=== PATIENT | female | born 1935 | race Caucasian/White ===

== ENCOUNTER 2018-03-15 12:00 | Emergency (ER) | payer MEDICARE, SELFPAY ==
[2018-03-15 12:01] VITALS: BP 149/89; PULSE 63; RESP 17; O2SAT 96
[2018-03-15 12:02] VITALS: BP 149/89; PULSE 63; RESP 18; TEMP 36.7; O2SAT 96; BMI 29.9
--- NOTE | 2018-03-15 12:26 | RAD_ITS ---
STUDY: X-RAY - LUMBAR SPINE REASON FOR EXAM: Female, 82 years old. Limited mobility. Status post fall. TECHNIQUE: 3 view(s) of the lumbar spine were obtained. COMPARISON: None FINDINGS: There is minimal, grade 1 degenerative listhesis at L3-L4 and L4-L5. There is diffuse demineralization. There is no acute fracture lucency, cortical step-off or acute compression deformity/fracture. There is mild diffuse spondylosis. There is mild to moderate multifocal degenerative disc disease with vacuum phenomena, primarily involving L5-S1, L3-L4 and L2-L3. Soft tissues demonstrate significant multifocal calcified vascular plaque without demonstration of aneurysm. RAD/Lumbar Spine 2 or 3 Views IMPRESSION: No evident acute osseous abnormality. Diffuse demineralization, consider evaluation with DEXA. Mild diffuse spondylosis and multiple level degenerative disc disease as above. Atherosclerotic peripheral vascular disease. Electronically Signed: Flavio Moon MD at 13:42 EDT , Service support ,
--- NOTE | 2018-03-15 12:26 | RAD_ITS ---
STUDY: X-RAY - LEFT KNEE REASON FOR EXAM: Female, 82 years old. Limited mobility status post fall. TECHNIQUE: 4 view(s) of the knee. COMPARISON: None. FINDINGS: There is no acute fracture lucency. There is no cortical step-off. There is no effusion. There is minimal patellofemoral osteoarthritis. There is mild medial compartment osteoarthritis. Peaking of the tibial spines within the intercondylar notch probably also represents a manifestation of osteoarthritis. There is diffuse demineralization. The soft tissue structures are unremarkable except for multifocal calcified vascular plaque. RAD/Knee 4 or More Views IMPRESSION: No acute osseous abnormality. Bicompartmental osteoarthritis as characterized above. No effusion. Atherosclerotic peripheral vascular disease. Electronically Signed: Flavio Moon MD at 13:38 EDT , Service support ,
--- NOTE | 2018-03-15 12:26 | CT_ITS ---
STUDY: CT CERVICAL SPINE WITHOUT CONTRAST REASON FOR EXAM: Female, 82 years old. Status post fall with head pain. RADIATION DOSAGE (If Supplied By Facility): CTDIvol = ( 21.79 ) mGy, DLP = ( 1235.47 ) mGycm TECHNIQUE: High resolution transaxial imaging was performed without contrast material. Sagittal and coronal images were reconstructed. Individualized dose optimization techniques were used for this CT. COMPARISON: None FINDINGS: Normal craniovertebral junction. Normal anterior atlantoaxial articulation. Normal odontoid process. Normal cervical lordosis. Normal vertebral bodies and posterior osseous elements. C2-3: Normal endplates. Normal disc height and morphology. Normal central canal and intervertebral neuroforamina. C3-4: Normal endplates. Normal disc height and morphology. Normal central canal and intervertebral neuroforamina. C4-5: Normal endplates. Normal disc height and morphology. Normal central canal and intervertebral neuroforamina. C5-6: Normal endplates. Normal disc height and morphology. Normal central canal and intervertebral neuroforamina. C6-7: Normal endplates. Normal disc height and morphology. Normal central canal and intervertebral neuroforamina. C7-T1: Normal endplates. Normal disc height and morphology. Normal central canal and intervertebral neuroforamina. Normal visualized soft tissue structures. CT/Spine Cervical without Contras IMPRESSION: There is no CT evident acute traumatic osseous pathology. Calcified plaque involving the carotid bulbs compatible with atherosclerotic peripheral vascular disease. Mild spondylosis involving C5 and C6. Electronically Signed: Flavio Moon MD at 14:15 EDT , Service support ,
--- NOTE | 2018-03-15 12:26 | CT_ITS ---
STUDY: CT BRAIN WITHOUT CONTRAST REASON FOR EXAM: Female, 82 years old. Head pain status post fall. RADIATION DOSAGE (If Supplied By Facility): CTDIvol = ( 44.99 ) mGy, DLP = ( 796.11 ) mGycm TECHNIQUE: Transaxial CT imaging of the brain was performed without administration of intravenous contrast material. Individualized dose optimization techniques were used for this CT. COMPARISON: September 30, 2017. FINDINGS: Normal soft tissue structures. Patient is status post right frontoparietal craniotomy. There is no acute osseous abnormality. Multifocal calcified intracranial vascular plaque is redemonstrated. There is moderate cerebral atrophy with widening of the extra-axial spaces and ventricular dilatation. There are areas of decreased attenuation within the white matter tracts of the supratentorial brain, consistent with microvascular disease changes. Normal basal ganglia and thalami. Normal brainstem. Normal cerebellum. There is no intracranial hemorrhage. There is no large vessel territory ischemia or edema. Normal visualized paranasal sinuses. CT/Brain/Head without Contrast IMPRESSION: Stable exam. No evident acute intracranial pathology. Chronic involutional changes of the brain. Electronically Signed: Flavio Moon MD at 13:04 EDT , Service support ,
--- NOTE | 2018-03-15 12:26 | RAD_ITS ---
STUDY: X-RAY - SACRUM/COCCYX REASON FOR EXAM: Female, 82 years old. Noted mobility status post fall. TECHNIQUE: 3 view(s) of the sacrum and coccyx were obtained. COMPARISON: None. FINDINGS: Oblique lucency involves the mid and distal sacrum on the lateral projection only. Numerous associated mild cortical step-off. There is mild hip osteoarthritis and moderate nonerosive sacroiliac osteoarthritis. Patient is status post placement of left dynamic hip screw. RAD/Sacrum-Coccyx min 2 Views IMPRESSION: Probable acute nondisplaced fracture of the mid and distal sacrum. Fracture fragments appear well opposed. The coccyx appears unremarkable. Electronically Signed: Flavio Moon MD at 13:36 EDT , Service support ,
--- NOTE | 2018-03-15 12:27 | RAD_ITS ---
STUDY: X-RAY - PELVIS REASON FOR EXAM: Female, 82 years old. Limited mobility status post fall. TECHNIQUE: One view of the pelvis was obtained. COMPARISON: None. FINDINGS: There is a non-specific bowel gas pattern. Normal visualized soft tissue structures. There is no fracture lucency or cortical step-off. There is a moderate nonerosive sacroiliac degenerative disease. There is mild to moderate osteoarthritis of the pubic symphysis. There is mild osteoarthritis of bilateral hips. Of note, patient is status post left hip pinning with the left femoral intramedullary edilberto. RAD/Pelvis 1 or 2 Views IMPRESSION: No evident acute osseous abnormality in this patient status post fall. Electronically Signed: Flavio Moon MD at 13:40 EDT , Service support ,
--- NOTE | 2018-03-15 12:28 | ED.VISSUMM ---
- ER Visit Summary Date of Service: 03/15/18 Chief Complaint: Fall History of Present Illness: The patient is a 82 F presenting after mechanical fall. Patient fell on Wednesday. She tripped over a table. She was not using her walker as she is supposed to. She hit her head but did not lose consciousness. She complains of dizziness after the fall which has now improved. She complains of buttock, left knee, left elbow pain. She has been taking Tylenol at home with some improvement. She is on Plavix. Denies other complaints. Physical Examination: Vitals are stable. Patient is afebrile. Alert no acute distress. HEENT exam is unremarkable. Neck is mild diffuse tenderness Lungs are clear and equal bilaterally. Heart is regular rate and rhythm. Abdomen is soft nontender nondistended. Back: Lumbosacral tenderness, no step-off Extremities left elbow and left knee mildly tender to palpation, active full range of motion, neurovascularly intact distally Skin is warm and dry. No focal neurologic deficit. Remainder of exam is unremarkable. Emergency Department Course and Treatment: X-ray of the left elbow and knee show no acute process. X-ray lumbar spine shows no acute process. Pelvis x-ray shows no acute process. Sacral x-ray shows probable acute nondisplaced fracture of the mid and distal sacrum. Fracture fragments appear well opposed. The coccyx appears unremarkable. CT head shows no acute process. CT cervical spine shows no acute fracture. Patient will continue to take Tylenol at home. She is given a prescription for tramadol. She states she has taken that in the past without difficulty. She is advised to follow-up with Dr Tong semiconductor manufacturing technician for no doc. Advised return to ED for worsening complaints. Disposition: Discharge home Impression: Status post mechanical fall, nondisplaced sacral fracture This note was generated with [employer] dictation software. It may contain incorrect words, spelling, and punctuation that were not noted in review of the chart prior to signing ED Disposition - Plan for ED Patient: Chief Complaint: Fall Referrals: [facility],Out of [Primary Care Provider] -
--- NOTE | 2018-03-15 12:45 | RAD_ITS ---
STUDY: X-RAY - LEFT ELBOW REASON FOR EXAM: Female, 82 years old. Limited mobility. Status post fall. TECHNIQUE: 3 view(s) of the elbow. COMPARISON: None. FINDINGS: Normal visualized humerus, radius and ulna. Normal radiocapitellar and ulnotrochlear articulations. The soft tissue structures are unremarkable. RAD/Elbow min 3 Views IMPRESSION: Normal x-ray examination of the elbow. Electronically Signed: Flavio Moon MD at 13:35 EDT , Service support ,
--- NOTE | 2018-03-15 14:33 | ED.DEP ---
ED Disposition - Plan for ED Patient: Chief Complaint: Fall Instructions: ED Mechanical Fall Prescriptions: traMADol [Ultram] 50 mg PO Q6H PRN PRN #12 tablet PRN Reason: Pain Referrals: [facility],Out of [Primary Care Provider] - Codey Tong DO [STAFF PHYSICIAN] -
[2018-03-15 14:41] VITALS: BP 164/69; PULSE 61; RESP 16; O2SAT 96
== END 2018-03-15 14:55 | disposition home or self-care (01) ==
PROVIDERS: Emergency Provider Emergency Medicine
DX: S32.10XA Unspecified fracture of sacrum, initial encounter for closed fracture (principal); W18.09XA Striking against other object with subsequent fall, initial encounter; Y93.89 Activity, other specified; Y92.9 Unspecified place or not applicable; I10 Essential (primary) hypertension; E78.00 Pure hypercholesterolemia, unspecified; J44.9 Chronic obstructive pulmonary disease, unspecified; Z86.73 Personal history of transient ischemic attack (TIA), and cerebral infarction without residual deficits; Z79.01 Long term (current) use of anticoagulants; Z79.899 Other long term (current) drug therapy
CPT/HCPCS: 70450; 72100; 72125; 72170; 72220; 73080; 73564; 99282

== ENCOUNTER 2019-01-30 23:31 | Inpatient (IN) | payer MEDICARE, MEDICAID, SELFPAY ==
[2019-01-30 23:33] VITALS: BP 152/62; PULSE 84; RESP 18; TEMP 36.8; O2SAT 95; BMI 29.6
--- NOTE | 2019-01-30 23:43 | RAD_ITS ---
STUDY: X-RAY CHEST REASON FOR EXAM: Female, 83 years old. Trauma TECHNIQUE: Single frontal view of the chest. COMPARISON: November 06, 2017. FINDINGS: Chronic lung changes. Low lung volumes. No focal consolidation. There is no demonstrated pleural abnormality. There is borderline cardiomegaly. Aortic calcifications. There are diffuse degenerative changes of the visualized thoracic spine. There is degenerative osteoarthritis of the bilateral shoulders. Left rotator cuff calcific tendinitis. Distended visualized aspects of the transverse colon. RAD/Chest 1 View (Portable) IMPRESSION: No acute cardiopulmonary disease. Other findings as above. Electronically Signed: Alin Qiu, at 1:13 EDT Tel , Service support ,
--- NOTE | 2019-01-30 23:44 | EKG12_ITS ---
Test Reason : FALL Blood Pressure : / mmHG Vent. Rate : 076 BPM Atrial Rate : 076 BPM P-R Int : 168 ms QRS Dur : 148 ms QT Int : 402 ms P-R-T Axes : 051 -30 -81 degrees QTc Int : 452 ms Normal sinus rhythm Left axis deviation Right bundle branch block Left ventricular hypertrophy with repolarization abnormality Abnormal ECG Confirmed by SHARRON LAM, CESILIA ([id number]), rewrite editor SAMAN MANUEL ([id number]) on 02/02/2019 10:49:12 AM Referred By: [facility] Confirmed By:CESILIA MCDERMOTT MD
--- NOTE | 2019-01-30 23:51 | ED.VISSUMM ---
- ER Visit Summary Date of Service: 01/30/19 Chief Complaint: Fall History of Present Illness: The patient is a 83 F brought in by EMS after falling out of bed. She complains of pain to her right hip and to the back of her head. She denies loss of consciousness. She apparently was unable to weight-bear on her right leg. EMS documents that she was having some hallucinations in route to the hospital. Past history is significant for prior stroke, reflux disease, hypertension, high cholesterol. She has had prior left hip surgery. Physical Examination: Vital signs unremarkable. Patient sitting upright in bed no acute distress. Head neck examination reveals mild tenderness to the right occiput. There is no hematoma or laceration. C-spine is nontender. Heart is regular rate and rhythm. Lung sounds are clear. Abdomen is soft and nontender. Active bowel sounds are noted throughout. Lower external examination does reveal tenderness to the right hip. She has equal leg lengths and strong distal pulses. No abrasions or ecchymosis noted. Test Results: Portable chest x-ray shows no acute disease. Pelvis and right hip x-rays show arthrosis with no evidence of fracture. CT head shows chronic involutional changes. EKG is sinus at 76 with a right bundle branch block. This is unchanged when compared to prior study. CBC was a white count of 13.6 with a left shift. Chemistry studies significant for potassium 3.1. Coags are unremarkable. Urinalysis is positive for nitrites with greater than 100 white cells and 4+ bacteria. Emergency Department Course and Treatment: Patient was given fentanyl and Zofran on arrival along with IV fluids. Upon completion of labs she was given 60 mEq of potassium chloride orally. Upon completion of her urinalysis, urine culture is sent and patient is given a dose of Cipro. She does have a documented penicillin allergy. On repeat exam at this time patient states her right hip does feel better. She is able to flex at the hip without difficulty. She is able to logroll the hip without difficulty. At this time patient will be admitted for antibiotic treatment, potassium replacement, and evaluation by PT to ensure she is safe with ambulation. Treatment Plan: [] Disposition: Admit Impression: 1. Cystitis 2. Fall with right hip contusion 3. Hypokalemia This note was generated with [employer] software. It may contain incorrect words, spelling, and punctuation that were not noted in review of the chart prior to signing ED Disposition - Plan for ED Patient: Referrals: [facility] Doctor,Out of [Primary Care Provider] -
[2019-01-31] VITALS (14 sets, daily range): BP systolic 126–177; BP diastolic 56–103; PULSE 64–106; RESP 16–28; TEMP 36.4–39.4; O2SAT 90–99; BMI 28.5; BMI 29.6
[2019-01-31] MEDS: 0.9% Normal Saline 1,000 ML 150 ML IV
[2019-01-31] MEDS: fentaNYL 100 MCG/2 ML Ampul 25 MCG IV
[2019-01-31] MEDS: Ondansetron 4 MG/2 ML Vial IV
[2019-01-31 00:20] LABS: Red Blood Count 3.98 M/mm3 (4.2-5.4); White Blood Count 13.6 K/mm3 (4.4-11.0)
[2019-01-31 00:21] LABS: Absolute Neutrophil Count 11.5 X10^3/uL (2.0-7.7); Basophil% 0.2 % (0-1); Eosinophils% 0.3 % (0-5); Hematocrit 37.1 % (37-47); Lymphocyte # 0.78 X10^3/ul (4.0); Lymphocyte % 5.8 % (19-41); Mean Corp Hgb Conc 32.3 g/gl (32-36); Mean Corpuscular Hgb 30.2 pg (27.0-32.0); Mean Corpuscular Volume 93.2 fL (81-99); Mean Platelet Vol. 10.9 fl (6.2-12.0); Monocyte% 8.8 % (0-10); Neutrophil # 11.49 X10^3/uL (2.7-7.7); Neutrophil % 84.7 % (47-70); POSITIVE COUNT NO; POSITIVE DIFFERENTIAL NO; POSITIVE MORPHOLOGY NO; Platelet Count 170 K/mm3 (150-450); RBC Distribution Width CV 13.9 % (11.6-14.6)
[2019-01-31 00:22] LABS: Absolute Lymphocyte Count 0.78 X10^3/ul (0.83-4.51); Basophil# 0.03 X10^3/uL; Eosinophil# 0.04 X10^3/uL; Monocyte# 1.19 X10^3/uL
[2019-01-31 00:23] LABS: International Normalized Ratio 1.2
[2019-01-31 00:24] LABS: Anion Gap 9 (5-15); BUN 23 mg/dL (7-18); BUN/Creat Ratio 22.5 RATIO (10-20); Calcium,Total 8.4 mg/dL (8.5-10.1); Chloride 108 mmol/L (98-107); Creatinine, Serum 1.02 mg/dL (0.55-1.02); EST Glomerular Filtration Rate 55 mL/min (>60); Est Glom Filt Rate - Afr Amer 67 mL/min (>60); Estimated Creatinine Clearance 40.49 ml/min; Glucose 150 mg/dL (74-106); Partial Thromboplast Time 30.8 Seconds (24.1-36.2); Potassium 3.1 mmol/L (3.5-5.1); Sodium Level 138 mmol/L (136-145)
--- NOTE | 2019-01-31 00:34 | RAD_ITS ---
STUDY: X-RAY - RIGHT HIP REASON FOR EXAM: Female, 83 years old. Hip pain TECHNIQUE: 2 views of the hip. COMPARISON: None. FINDINGS: Normal femoral head, neck, intertrochanteric region and visualized proximal femur. Normal acetabulum. There is mild articular joint space narrowing. Normal visualized superior and inferior pubic rami and ischial tuberosities. RAD/HIP, UNI W/ Pelvis 2-3 Views IMPRESSION: There is mild arthrosis of the RIGHT hip joint. There is NO fracture or dislocation. Electronically Signed: Fox Kennedy MD at 1:40 EDT , Service support ,
[2019-01-31 02:37] LABS: Mucous, Urine 0 SEEN /hpf (<or=2+); Red Blood Cells-Urine 0 SEEN /hpf (0-5); Squamous Epithelial Cells - UA 0 SEEN /hpf (5-10)
[2019-01-31 02:52] LABS: Color, Urine Yellow (Yellow); Glucose, Dipstick Normal (Normal); Ketone-Dipstick Negative (Negative); Leukocyte Esterase-Dipstick 500 /ul (Negative); Nitrite-Dipstick Positive (Negative); Occult Blood-Urine 250 /ul (Negative); Protein-Dipstick 100 mg/dl (Negative); Specific Gravity, Urine 1.015 (1.002-1.030); Urine Bilirubin Dipstick Negative (Negative); Urine Clarity Cloudy (Clear); Urine Urobilinogen Normal (Normal)
[2019-01-31 02:53] LABS: Bacteria 4+ /hpf (None Seen); White Blood Cells >100 SEEN /hpf (0-5)
--- NOTE | 2019-01-31 03:59 | PCM.HP.STD ---
Problem List (1) Acute cystitis Status: Acute (2) Hypokalemia Status: Acute History of Present Illness Date of Admission: 01/31/19 Chief Complaint: FALL The patient is a 83 year old F with a significant history of hypertension; hyperlipidemia; CVA; GERD who presented because of a fall. Patient reported that her fall was mechanical and it was due to malpositioning of her leg. Paramedics reported that enroute to the hospital patient was hallucinating. Emergency department doctor reported that patient fell and hit the back of her head and her right hip. CT of the head at emergency department was unremarkable. X-ray of the hip was unremarkable. At emergency department patient was found to be hypokalemic and she received potassium. Patient does not answer to many questions. She denies any urinary symptoms. At the emergency department urinalysis was abnormal for which reason patient was started on ciprofloxacin. Notably patient has an allergy to penicillin. Past Medical History Past Medical History (Chronic Problems): Chronic Problems Benign essential HTN (Chronic) Cerebrovascular disease (Chronic) reported 2 strokes mild left facial droop Gastroesophageal reflux disease (Chronic) HLD (hyperlipidemia) (Chronic) Urinary incontinence (Chronic) small vessel disease negative MRA 12/06 Allergies adhesive Allergy (Verified 01/31/19 00:03) Unknown adhesive tape amitriptyline Allergy (Verified 01/31/19 00:03) Unknown codeine Allergy (Verified 01/31/19 00:03) Unknown hydrocodone bitartrate [From Vicodin] Allergy (Verified 01/31/19 00:03) Hives Iodinated Contrast- Oral and IV Dye [Iodinated Contrast Media - IV Dye] Allergy (Verified 01/31/19 00:03) Unknown naproxen Allergy (Verified 01/31/19 00:03) Unknown Penicillins Allergy (Verified 01/31/19 00:03) Rash phenytoin sodium [From Dilantin] Allergy (Verified 01/31/19 00:03) Unknown phenytoin sodium extended [From Dilantin] Allergy (Verified 01/31/19 00:03) Unknown silicone Allergy (Verified 01/31/19 00:03) Unknown Home Medications: Ambulatory Orders Medication Instructions Recorded Atenolol [Tenormin] 50 mg PO DAILY 11/27/15 Atorvastatin Calcium [Lipitor] 10 mg PO QHS 11/27/15 Clopidogrel Bisulfate [Plavix] 75 mg PO DAILY 11/27/15 Furosemide [Lasix] 20 mg PO QODAY 11/27/15 Omeprazole [Prilosec] 20 mg PO DAILY 11/27/15 Oxybutynin Chloride [Ditropan Xl] 10 mg PO QHS 11/27/15 Potassium Chloride [K-Dur] 20 meq PO TID 11/27/15 Loratadine [Claritin] 10 mg PO DAILY 09/30/17 Cholecalciferol (Vitamin D3) 50,000 unit PO QWEEK 03/15/18 [Vitamin D] Fluticasone/Salmeterol [Advair 1 puff IH DAILY 03/15/18 250-50 Diskus] Lisinopril 1 tab PO DAILY 03/15/18 Melatonin 1 tab PO QHS 03/15/18 traMADol [Ultram] 50 mg PO Q6H PRN PRN #12 tablet 03/15/18 Surgical History: appendectomy, hysterectomy, - - Craniotomy s/p trauma. 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 Lives: With Family Smoking Status: Never smoker Alcohol: None - *Family History Maternal History Items: Cancer, Diabetes, Stroke - Stroke and aneurysm in mother Paternal History Items: Cancer, Diabetes, No pertinent history Sibling History Items: Cancer, Diabetes Review of Systems Constitutional: Denies: Chills, Fever, Weight Change HEENT: Denies: Head Aches, Sinus Congestion, Sinus Drainage Cardiovascular: Denies: Chest Pain, Palpitations Respiratory: Denies: Cough, Shortness of breath at rest, Sputum production Gastrointestinal: Denies: Abdominal Pain, Nausea, Vomiting Genitourinary: Denies: Dysuria Musculoskeletal: Reports: - - Right hip pain Skin: Denies: Rash, Wounds Neurological: Denies: Numbness, Tingling, Focal weakness Psychiatric: Denies: Anxiety, Depression, Homicidal Ideations, Suicidal Ideations Hematologic/ Lymphatic: Denies: Easy Bruising, Easy Bleeding VTE Information - Inpt Only VTE Present on Admission: No VTE Mechan Device Prophylaxis: None VTE Pharm Prophylaxis ordered?: Yes Patient Problems: Active and Suspected Problems Acute cystitis (Acute) Hypokalemia (Acute) - Physical Exam General: Alert, Cooperative, - - Patient is not oriented to the date or place HEENT: Atraumatic, EOMI, Normocephalic Neck: Supple, No JVD, Negative Carotid Bruits Lungs: Clear to auscultation, Normal air movement Cardiovascular: Regular rate, No murmurs Abdomen: Bowel Sounds Present, Soft, Non Tender Extremities: No edema, Capillary Refill Less than 3 Seconds Skin: No rashes, No breakdown Musculoskeletal: No Tenderness to Palpation of Joints or Extremities Neurological: - - Some confusion Psych/Mental Status: Normal Affect, Appropriate Vital Signs Temp Pulse Resp BP Pulse Ox 98.1 F 73 16 162/67 H 94 01/31/19 03:09 01/31/19 03:09 01/31/19 03:09 01/31/19 03:09 01/31/19 03:09 Oxygen Delivery Method Room Air Weight: 83.2 kg Body Mass Index (BMI) 29.6 Finger Stick Blood Glucose 111 Laboratory Tests Past 24 Hrs 01/30/19 01/30/19 01/30/19 23:42 23:59 23:59 WBC 13.6 H RBC 3.98 L Hgb 12.0 Hct 37.1 MCV 93.2 MCH 30.2 MCHC 32.3 RDW 13.9 RDW Differential 46.0 H Plt Count 170 MPV 10.9 Immature Gran % (Auto) 0.200 Neut % (Auto) 84.7 H Lymph % (Auto) 5.8 L [place] % (Auto) 8.8 Eos % (Auto) 0.3 Baso % (Auto) 0.2 Absolute Neuts (auto) 11.5 H Absolute Lymphs (auto) 0.78 L Total Counted Not Reportable PT 15.0 H INR 1.2 APTT 30.8 Sodium 138 Potassium 3.1 L Chloride 108 H Carbon Dioxide 21.0 Anion Gap 9 BUN 23 H Creatinine 1.02 Estim Creat Clear Calc 40.49 Est GFR (MDRD) Af Amer 67 Est GFR (MDRD) Non-Af 55 L BUN/Creatinine Ratio 22.5 H Glucose 150 H Calcium 8.4 L Urine Color Urine Clarity Urine pH Ur Specific [place] Urine Protein Urine Glucose (UA) Urine Ketones Urine Occult Blood Urine Nitrite Urine Bilirubin Urine Urobilinogen Ur Leukocyte Esterase Urine RBC Urine WBC Ur Squamous Epith Cells Urine Bacteria Urine Mucus 01/31/19 02:24 WBC RBC Hgb Hct MCV MCH MCHC RDW RDW Differential Plt Count MPV Immature Gran % (Auto) Neut % (Auto) Lymph % (Auto) [place] % (Auto) Eos % (Auto) Baso % (Auto) Absolute Neuts (auto) Absolute Lymphs (auto) Total Counted PT INR APTT Sodium Potassium Chloride Carbon Dioxide Anion Gap BUN Creatinine Estim Creat Clear Calc Est GFR (MDRD) Af Amer Est GFR (MDRD) Non-Af BUN/Creatinine Ratio Glucose Calcium Urine Color Yellow Urine Clarity Cloudy Urine pH 6.0 Ur Specific [place] 1.015 Urine Protein 100 H Urine Glucose (UA) Normal Urine Ketones Negative Urine Occult Blood 250 H Urine Nitrite Positive H Urine Bilirubin Negative Urine Urobilinogen Normal Ur Leukocyte Esterase 500 H Urine RBC 0 SEEN Urine WBC >100 SEEN Ur Squamous Epith Cells 0 SEEN Urine Bacteria 4+ Urine Mucus 0 SEEN Assessment/Plan All Active Problems Acute cystitis (Acute) Hypokalemia (Acute) Shortness of breath (Acute) Lethargy (Acute) Decreased level of consciousness (Acute) Left hip pain (Acute) S/P ORIF (open reduction internal fixation) fracture (Resolved) Acute ischemic stroke (Acute) The patient is a 83 year old F with a significant history of hypertension; hyperlipidemia; CVA; GERD who presented because of a fall; and also was found to be hallucinating; has low potassium and found to have abnormal urinalysis consistent with acute cystitis. Acute cystitis Review of labs shows abnormal urinalysis. At the Emergency department patient received ciprofloxacin. Notably patient has allergy to penicillin. Ciprofloxacin continued Patient has a mild leukocytosis. Trend CBC Trend BMP Urine culture ordered from emergency department; follow Hypokalemia On presentation patient potassium was 3.1. Received 60 mg of potassium at the emergency department. Trend BMP Check magnesium level Fall Likely etiology is confusion from UTI. Other etiology could be confusion from vitamin B12 deficiency; debility or other. UTI treatment as above Vitamin B12 ordered. PT and OT to work with patient for strengthening and balance training Hypertension On presentation her blood pressure was not within goal Hydralazine prn ordered. DVT prophylaxis Subcutaneous Lovenox ordered. Code Visit Inpatient E&M: 55947 Init Hosp L3
[2019-01-31] MEDS: Ciprofloxacin 400 MG/200 ML BAG 200 MG IV ×2 (04:21→14:34)
[2019-01-31] MEDS: Acetaminophen 500 MG Tablet PO ×4 (06:06→23:29)
--- NOTE | 2019-01-31 07:55 | PCM.PN.BLA ---
Progress Note Patient is an 83-year-old lady admitted following a fall. Patient subsequent evaluation demonstrated presence of acute cystitis as well as hypokalemia admitted to regular nursing floor for further management 1. Adult failure to thrive in the context of multiple medical problems with recurrent falls and right hip contusion. Patient admitted to the regular nursing floor, ordered PT OT evaluation. A consult was also placed to social media marketing specialist to assess with discharge planning. 2. Acute cystitis urine and blood cultures sent. Patient started on IV Cipro plan is to continue or adjust antibiotic based on the results of her cultures. 3. Asthma: Not in exacerbation on corticosteroids as well as bronchodilators continued. 4. 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 Hypertension: Blood Pressure stable. Home medications continued. 6. Chronic diastolic congestive heart failure; stable 7. Gastroesophageal reflux disease 8. Hyperlipidemia 9. DVT prophylaxis- on enoxaparin, Active Medications Acetaminophen (Tylenol) 500 mg PO Q6 [facility] Last Admin: 01/31/19 12:48 Dose: 500 mg Bisacodyl (Dulcolax) 5 mg PO DAILY PRN PRN PRN Reason: Constipation Enoxaparin Sodium (Lovenox) 40 mg SC DAILY@1000 [facility] Last Admin: 01/31/19 08:43 Dose: 40 mg Hydralazine HCl (Apresoline Iv) 5 mg IV Q4H PRN PRN PRN Reason: SBP > 160 Ciprofloxacin (Cipro) 400 mg in 200 mls @ 200 mls/hr IV Q12 [facility] Last Admin: 01/31/19 14:34 Dose: 200 mls/hr Magnesium Hydroxide (Milk Of Magnesia) 30 ml PO DAILY PRN PRN PRN Reason: Constipation Nutritional Formula (Lactose Free) (Ensure Enlive) 120 ml PO 4X/DAY [facility] Last Admin: 01/31/19 12:49 Dose: 120 ml Oxycodone HCl (Oxyir) 5 mg PO Q4H PRN PRN PRN Reason: PAIN Potassium Chloride (K-Dur) 20 meq PO BIDCM [facility] Last Admin: 01/31/19 08:51 Dose: 20 meq Senna (Senokot) 1 tablet PO BID [facility] Last Admin: 01/31/19 08:44 Dose: 1 tablet
[2019-01-31 08:36] LABS: Absolute Lymphocyte Count 0.51 X10^3/ul (0.83-4.51); Absolute Neutrophil Count 10.5 X10^3/uL (2.0-7.7); Basophil# 0.01 X10^3/uL; Basophil% 0.1 % (0-1); Differential Indicated SCAN CRITERIA MET; Eosinophil# 0.03 X10^3/uL; Eosinophils% 0.3 % (0-5); Hematocrit 35.2 % (37-47); Hemoglobin 11.7 g/dl (12.0-15.0); Lymphocyte # 0.51 X10^3/ul (4.0); Lymphocyte % 4.4 % (19-41); Mean Corp Hgb Conc 33.2 g/gl (32-36); Mean Corpuscular Hgb 30.7 pg (27.0-32.0); Mean Corpuscular Volume 92.4 fL (81-99); Mean Platelet Vol. 10.2 fl (6.2-12.0); Monocyte# 0.61 X10^3/uL; Monocyte% 5.2 % (0-10); Neutrophil # 10.46 X10^3/uL (2.7-7.7); Neutrophil % 89.6 % (47-70); POSITIVE COUNT NO; POSITIVE DIFFERENTIAL YES; POSITIVE MORPHOLOGY NO; Platelet Count 151 K/mm3 (150-450); RBC Distribution Width CV 13.5 % (11.6-14.6); RBC Distribution Width SD 44.9 fl (35.1-43.9); Red Blood Count 3.81 M/mm3 (4.2-5.4); White Blood Count 11.7 K/mm3 (4.4-11.0)
[2019-01-31] MEDS: Enoxaparin 40 MG/0.4 ML Syringe SC (08:43)
[2019-01-31] MEDS: Senna Tablet 1 TABLET PO (08:44)
--- NOTE | 2019-01-31 08:57 | NURSING ---
[facility] called and stated that the pt is from their facility and that her son does not have a phone that we are able to call. requested that if we have any updates we call [facility] at [phone]. This RN requested they fax and updated home med list and inquired about flu vaccine. primary RN notified
[2019-01-31 09:16] LABS: Anion Gap 13 (5-15); BUN 20 mg/dL (7-18); Calcium,Total 8.4 mg/dL (8.5-10.1); Chloride 107 mmol/L (98-107); Creatinine, Serum 0.91 mg/dL (0.55-1.02); EST Glomerular Filtration Rate 63 mL/min (>60); Est Glom Filt Rate - Afr Amer 76 mL/min (>60); Estimated Creatinine Clearance 45.39 ml/min; Glucose 134 mg/dL (74-106); Magnesium 1.7 mg/dL (1.6-2.6); Potassium 3.7 mmol/L (3.5-5.1); Sodium Level 141 mmol/L (136-145)
[2019-01-31 09:20] LABS: Vitamin B12 592 pg/mL (211-911)
--- NOTE | 2019-01-31 10:19 | NURSING ---
called [facility] for updated home med list. notified
--- NOTE | 2019-01-31 11:15 | CASEMGMT ---
IBRAHIMA HARRY Face to Face with patient for initial transition planning/care coordination assessment. RN PIERO introduced self and role at [facility]. Patient lying in bed, alert and slightly confused. Patient willing to participate in assessment, patient able to only answer a few questions. Patient wishes to discharge home may benefit from HHC at discharge. Patient states she has no further needs or concerns at this time. IBRAHIMA HARRY received permission to talk with son and daughter listed on contact sheet. Left message for son to return call. Daughter Nikia called the unit and this CM talked with daughter to obtain little information. IBRAHIMA HARRY called and spoke with pharmacy at [facility] to inquire about prescribing physician. CM to follow for discharge planning needs that may arise. PCP: Amadou Sandy, NINI, [address], [place], [place] [phone] Specialists: None Preferred Pharmacy: [facility] Insurance: [employer] Prescription Benefit: Yes Living Will/HPOA: patient states yes and that it is her son Cuong Gayle LNOK: Son and daughter Living Arrangements: Patient lives with son uCong in 1 story house with 3-4 steps and railing to enter the home. Transportation: [facility]: Patient's daughter states that patient goes to [facility] some days. Daughter states patient has cane. Per daughter patient has aide services 2hours/day 2days/week. Disposition Plan: Patient wishes to return home, may benefit from HHC. CM will continue to monitor progress with therapy. Janelle LAMB, RN, CM
--- NOTE | 2019-01-31 11:58 | CASEMGMT ---
RN PIERO Note: Call to [facility]. Pt is [facility] client for home services. Called to CM to update pt is @ [facility]. CM: Charmaine Farooq PH: FX: Home services: Aide services through [facility] 2 hrs/day for 3x week [facility] Wednesday and Wednesday ESR through CARLIE SIMPSONN RN ACM
[2019-01-31] MEDS: Atorvastatin Calcium 10 MG Tablet PO (21:05)
[2019-01-31] MEDS: MELATONIN 10 MG TABLET 5 MG PO (21:05)
--- NOTE | 2019-01-31 23:43 | CT_ITS ---
STUDY: CT BRAIN WITHOUT CONTRAST REASON FOR EXAM: Female, 83 years old. Trauma RADIATION DOSAGE (If Supplied By Facility): CTDIvol = ( 44.99 ) mGy, DLP = ( 829.85 ) mGycm TECHNIQUE: Transaxial CT imaging of the brain was performed without administration of intravenous contrast material. Individualized dose optimization techniques were used for this CT. COMPARISON: None. FINDINGS: Normal soft tissue structures. Evidence of prior right craniotomy. There is moderate cerebral atrophy with widening of the extra-axial spaces and ventricular dilatation. There are areas of decreased attenuation within the white matter tracts of the supratentorial brain, consistent with microvascular disease changes. Normal basal ganglia and thalami. Normal brainstem. Normal cerebellum. There is no intracranial hemorrhage. There are no findings of an acute territorial ischemic infarction. Evidence of prior left frontal temporal infarct. Fluid within the bilateral mastoid air cells correlate for mastoiditis. Carotid and vertebral artery calcifications. CT/Brain/Head without Contrast IMPRESSION: Chronic involutional and white matter changes are present. No acute territorial infarct or intracranial hemorrhage is seen. If patient's symptomology persists or there is continuing clinical concern MRI or follow-up CT scan can be performed. Next Extensive atherosclerotic calcifications of the carotid and vertebral arteries are present. Electronically Signed: Alin Qiu, at 2:27 EDT Tel , Service support ,
[2019-02-01] VITALS (9 sets, daily range): BP systolic 120–171; BP diastolic 59–76; PULSE 76–99; RESP 16–20; TEMP 36.3–38.7; O2SAT 92–98
[2019-02-01] MEDS: hydrALAZINE 20 MG/ML Vial 5 MG IV (03:21)
--- NOTE | 2019-02-01 04:22 | NURSING ---
lab notified of new orders
[2019-02-01 05:16] LABS: Hematocrit 38.1 % (37-47); Hemoglobin 12.1 g/dl (12.0-15.0); Mean Corp Hgb Conc 31.8 g/gl (32-36); Mean Corpuscular Hgb 30.3 pg (27.0-32.0); Mean Corpuscular Volume 95.5 fL (81-99); Mean Platelet Vol. 10.5 fl (6.2-12.0); Platelet Count 113 K/mm3 (150-450); RBC Distribution Width CV 14.1 % (11.6-14.6); RBC Distribution Width SD 49.2 fl (35.1-43.9); Red Blood Count 3.99 M/mm3 (4.2-5.4); Scan Indicated on CBC? Y/N NO
[2019-02-01 05:37] LABS: Lactic Acid 0.8 mmol/L (0.4-2.0)
[2019-02-01 05:38] LABS: Anion Gap 9 (5-15); BUN 20 mg/dL (7-18); BUN/Creat Ratio 21.1 RATIO (10-20); Calcium,Total 8.3 mg/dL (8.5-10.1); Chloride 111 mmol/L (98-107); Creatinine, Serum 0.95 mg/dL (0.55-1.02); EST Glomerular Filtration Rate 60 mL/min (>60); Est Glom Filt Rate - Afr Amer 73 mL/min (>60); Estimated Creatinine Clearance 43.48 ml/min; Glucose 115 mg/dL (74-106); Magnesium 1.6 mg/dL (1.6-2.6); Potassium 3.8 mmol/L (3.5-5.1); Sodium Level 138 mmol/L (136-145)
[2019-02-01] MEDS: Acetaminophen 500 MG Tablet PO ×3 (06:32→19:31)
--- NOTE | 2019-02-01 07:40 | PCM.PN.HOSP ---
Patient Problems: Active and Suspected Problems Acute cystitis (Acute) Hypokalemia (Acute) Subjective: Patient is an 83-year-old lady admitted following a fall. Patient subsequent evaluation demonstrated presence of acute cystitis as well as hypokalemia admitted to regular nursing floor for further management. Patient was reported to have experienced several bouts of diarrhea during the night. Patient was however on senna which has since been discontinued. Temperature maximum past 24 hours 101.7. Patient had been started on ciprofloxacin on admission antibiotics subsequently switched to Rocephin in view of patient continued to spike fever. Vital Signs Temp Pulse Resp BP BP Pulse Ox 02/01/19 06:52 92 02/01/19 04:47 98.6 F 171/76 H 02/01/19 03:21 99 02/01/19 03:16 101.7 F H 99 20 H 167/75 H 94 01/31/19 20:54 98.1 F 70 18 152/72 H 99 Objective: GENERAL: cooperative HEENT: Atraumatic; moist oral mucosa EYES; Anicteric, Normal Conjunctiva NECK; supple, normal thyroid, no distended JVD. RESPIRATORY: Diminished to auscultation bilaterally, CARDIOVASCULAR: Regular S1 S2, no audible murmurs GI: soft, non-tender, normoactive bowel sounds, : No Renal angle tenderness; EXTREMITIES: No edema, no clubbing, no cyanosis. MUSCULOSKELETAL: No Joint Tenderness; no muscle waisting NEURO: Awake; no lateralizing signs. SKIN: No Rash PSYCH; Normal affect Vitals/I&O's: Vital Signs Temp Pulse Resp BP Pulse Ox 98.6 F 99 20 H 171/76 H 94 02/01/19 04:47 02/01/19 03:21 02/01/19 03:16 02/01/19 04:47 02/01/19 03:16 Oxygen Delivery Method Room Air Weight: 80.286 kg Body Mass Index (BMI) 28.5 Finger Stick Blood Glucose 111 Intake and Output for Last 24 Hours 01/30/19 01/31/19 02/01/19 23:59 23:59 23:59 Intake Total 1096 / 1096 155 / 155 Output Total 300 / 300 Balance 796 / 796 155 / 155 Laboratory Results 01/31/19 07:55: Sodium 141, Potassium 3.7, Chloride 107, Carbon Dioxide 21.0, Anion Gap 13, BUN 20 H, Creatinine 0.91, Estim Creat Clear Calc 45.39, Est GFR (MDRD) Af Amer 76, Est GFR (MDRD) Non-Af 63, BUN/Creatinine Ratio 22.0 H, Glucose 134 H, Calcium 8.4 L, Magnesium 1.7 01/31/19 07:55: Vitamin B12 592 01/31/19 07:55: WBC 11.7 H, RBC 3.81 L, Hgb 11.7 L, Hct 35.2 L, MCV 92.4, MCH 30.7, MCHC 33.2, RDW 13.5, RDW Differential 44.9 H, Plt Count 151, MPV 10.2, Immature Gran % (Auto) 0.400, Neut % (Auto) 89.6 H, Lymph % (Auto) 4.4 L, [place] % (Auto) 5.2, Eos % (Auto) 0.3, Baso % (Auto) 0.1, Absolute Neuts (auto) 10.5 H, Absolute Lymphs (auto) 0.51 L, Total Counted Not Reportable 02/01/19 04:54: WBC 11.0, RBC 3.99 L, Hgb 12.1, Hct 38.1, MCV 95.5, MCH 30.3, MCHC 31.8 L, RDW 14.1, RDW Differential 49.2 H, Plt Count 113 L, MPV 10.5 02/01/19 04:54: Sodium 138, Potassium 3.8, Chloride 111 H, Carbon Dioxide 18.0 L, Anion Gap 9, BUN 20 H, Creatinine 0.95, Estim Creat Clear Calc 43.48, Est GFR (MDRD) Af Amer 73, Est GFR (MDRD) Non-Af 60, BUN/Creatinine Ratio 21.1 H, Glucose 115 H, Calcium 8.3 L, Magnesium 1.6 02/01/19 04:54: Lactic Acid 0.8 Current Medications Acetaminophen (Tylenol) 500 mg PO Q6 [facility] Last Admin: 02/01/19 06:32 Dose: 500 mg Atenolol (Tenormin (Beta Mckenzie)) 50 mg PO DAILY [facility] Atorvastatin Calcium (Lipitor) 10 mg PO HS [facility] Last Admin: 01/31/19 21:05 Dose: 10 mg Bisacodyl (Dulcolax) 5 mg PO DAILY PRN PRN PRN Reason: Constipation Clopidogrel Bisulfate (Plavix) 75 mg PO DAILY [facility] Enoxaparin Sodium (Lovenox) 40 mg SC DAILY@1000 [facility] Last Admin: 01/31/19 08:43 Dose: 40 mg Furosemide (Lasix) 20 mg PO QODAY [facility] Hydralazine HCl (Apresoline Iv) 5 mg IV Q4H PRN PRN PRN Reason: SBP > 160 Last Admin: 02/01/19 03:21 Dose: 5 mg Ciprofloxacin (Cipro) 400 mg in 200 mls @ 200 mls/hr IV Q12 [facility] Last Admin: 01/31/19 14:34 Dose: 200 mls/hr Isosorbide Mononitrate (Imdur) 30 mg PO DAILY [facility] Loratadine (Claritin) 10 mg PO DAILY [facility] Losartan Potassium (Cozaar) 50 mg PO DAILY [facility] Magnesium Hydroxide (Milk Of Magnesia) 30 ml PO DAILY PRN PRN PRN Reason: Constipation Melatonin (Melatonin) 5 mg PO QHS [facility] Last Admin: 01/31/19 21:05 Dose: 5 mg Nutritional Formula (Lactose Free) (Ensure Enlive) 120 ml PO 4X/DAY [facility] Last Admin: 01/31/19 21:05 Dose: Not Given Oxycodone HCl (Oxyir) 5 mg PO Q4H PRN PRN PRN Reason: PAIN Pantoprazole Sodium (Protonix) 20 mg PO DAILY [facility] Potassium Chloride (K-Dur) 20 meq PO BIDCM [facility] Last Admin: 01/31/19 17:28 Dose: 20 meq Senna (Senokot) 1 tablet PO BID [facility] Last Admin: 01/31/19 21:06 Dose: Not Given Tolterodine Tartrate (Detrol La) 2 mg PO DAILY [facility] Medical Necessity - Tobacco Use Smoking Status: Never smoker Assessment/Plan All Active Problems Acute cystitis (Acute) Hypokalemia (Acute) Shortness of breath (Acute) Lethargy (Acute) Decreased level of consciousness (Acute) Left hip pain (Acute) S/P ORIF (open reduction internal fixation) fracture (Resolved) Acute ischemic stroke (Acute) Patient is an 83-year-old lady admitted following a fall. Patient subsequent evaluation demonstrated presence of acute cystitis as well as hypokalemia admitted to regular nursing floor for further management 1. Adult failure to thrive in the context of multiple medical problems with recurrent falls and right hip contusion. Patient admitted to the regular nursing floor, ordered PT OT evaluation. A consult was also placed to social work professor to assess with discharge planning. 2. Acute cystitis urine and blood cultures sent. Patient had been started on ciprofloxacin on admission antibiotics subsequently switched to Rocephin in view of patient continued to spike fever. 3. Asthma: Not in exacerbation on corticosteroids as well as bronchodilators continued. 4. 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 Hypertension: Blood Pressure stable. Home medications continued. 6. Chronic diastolic congestive heart failure; stable 7. Gastroesophageal reflux disease 8. Hyperlipidemia 9. DVT prophylaxis- on enoxaparin 10. Diarrhea patient was on senna discontinued we will continue to monitor Code Visit Inpatient E&M: 18705 [facility]
--- NOTE | 2019-02-01 07:45 | PN_ITS ---
Patient Problems: Active and Suspected Problems Acute cystitis (Acute) Hypokalemia (Acute) Subjective: Patient is an 83-year-old lady admitted following a fall. Patient subsequent evaluation demonstrated presence of acute cystitis as well as hypokalemia admitted to regular nursing floor for further management. Patient was reported to have experienced several bouts of diarrhea during the night. Patient was however on senna which has since been discontinued. Temperature maximum past 24 hours 101.7. Patient had been started on ciprofloxacin on admission antibiotics subsequently switched to Rocephin in view of patient continued to spike fever. Vital Signs Temp Pulse Resp BP BP Pulse Ox 02/01/19 06:52 92 02/01/19 04:47 98.6 F 171/76 H 02/01/19 03:21 99 02/01/19 03:16 101.7 F H 99 20 H 167/75 H 94 01/31/19 20:54 98.1 F 70 18 152/72 H 99 Objective: GENERAL: cooperative HEENT: Atraumatic; moist oral mucosa EYES; Anicteric, Normal Conjunctiva NECK; supple, normal thyroid, no distended JVD. RESPIRATORY: Diminished to auscultation bilaterally, CARDIOVASCULAR: Regular S1 S2, no audible murmurs GI: soft, non-tender, normoactive bowel sounds, : No Renal angle tenderness; EXTREMITIES: No edema, no clubbing, no cyanosis. MUSCULOSKELETAL: No Joint Tenderness; no muscle waisting NEURO: Awake; no lateralizing signs. SKIN: No Rash PSYCH; Normal affect Vitals/I&O's: Vital Signs Temp Pulse Resp BP Pulse Ox 98.6 F 99 20 H 171/76 H 94 02/01/19 04:47 02/01/19 03:21 02/01/19 03:16 02/01/19 04:47 02/01/19 03:16 Oxygen Delivery Method Room Air Weight: 80.286 kg Body Mass Index (BMI) 28.5 Finger Stick Blood Glucose 111 Intake and Output for Last 24 Hours 01/30/19 01/31/19 02/01/19 23:59 23:59 23:59 Intake Total 1096 / 1096 155 / 155 Output Total 300 / 300 Balance 796 / 796 155 / 155 Laboratory Results 01/31/19 07:55: Sodium 141, Potassium 3.7, Chloride 107, Carbon Dioxide 21.0, Anion Gap 13, BUN 20 H, Creatinine 0.91, Estim Creat Clear Calc 45.39, Est GFR (MDRD) Af Amer 76, Est GFR (MDRD) Non-Af 63, BUN/Creatinine Ratio 22.0 H, Glucose 134 H, Calcium 8.4 L, Magnesium 1.7 01/31/19 07:55: Vitamin B12 592 01/31/19 07:55: WBC 11.7 H, RBC 3.81 L, Hgb 11.7 L, Hct 35.2 L, MCV 92.4, MCH 30.7, MCHC 33.2, RDW 13.5, RDW Differential 44.9 H, Plt Count 151, MPV 10.2, Immature Gran % (Auto) 0.400, Neut % (Auto) 89.6 H, Lymph % (Auto) 4.4 L, [place] % (Auto) 5.2, Eos % (Auto) 0.3, Baso % (Auto) 0.1, Absolute Neuts (auto) 10.5 H, Absolute Lymphs (auto) 0.51 L, Total Counted Not Reportable 02/01/19 04:54: WBC 11.0, RBC 3.99 L, Hgb 12.1, Hct 38.1, MCV 95.5, MCH 30.3, MCHC 31.8 L, RDW 14.1, RDW Differential 49.2 H, Plt Count 113 L, MPV 10.5 02/01/19 04:54: Sodium 138, Potassium 3.8, Chloride 111 H, Carbon Dioxide 18.0 L , Anion Gap 9, BUN 20 H, Creatinine 0.95, Estim Creat Clear Calc 43.48, Est GFR (MDRD) Af Amer 73, Est GFR (MDRD) Non-Af 60, BUN/Creatinine Ratio 21.1 H, Glucose 115 H, Calcium 8.3 L, Magnesium 1.6 02/01/19 04:54: Lactic Acid 0.8 Current Medications Acetaminophen (Tylenol) 500 mg PO Q6 [facility] Last Admin: 02/01/19 06:32 Dose: 500 mg Atenolol (Tenormin (Beta Mckenzie)) 50 mg PO DAILY [facility] Atorvastatin Calcium (Lipitor) 10 mg PO HS [facility] Last Admin: 01/31/19 21:05 Dose: 10 mg Bisacodyl (Dulcolax) 5 mg PO DAILY PRN PRN PRN Reason: Constipation Clopidogrel Bisulfate (Plavix) 75 mg PO DAILY [facility] Enoxaparin Sodium (Lovenox) 40 mg SC DAILY@1000 [facility] Last Admin: 01/31/19 08:43 Dose: 40 mg Furosemide (Lasix) 20 mg PO QODAY [facility] Hydralazine HCl (Apresoline Iv) 5 mg IV Q4H PRN PRN PRN Reason: SBP > 160 Last Admin: 02/01/19 03:21 Dose: 5 mg Ciprofloxacin (Cipro) 400 mg in 200 mls @ 200 mls/hr IV Q12 [facility] Last Admin: 01/31/19 14:34 Dose: 200 mls/hr Isosorbide Mononitrate (Imdur) 30 mg PO DAILY [facility] Loratadine (Claritin) 10 mg PO DAILY [facility] Losartan Potassium (Cozaar) 50 mg PO DAILY [facility] Magnesium Hydroxide (Milk Of Magnesia) 30 ml PO DAILY PRN PRN PRN Reason: Constipation Melatonin (Melatonin) 5 mg PO QHS [facility] Last Admin: 01/31/19 21:05 Dose: 5 mg Nutritional Formula (Lactose Free) (Ensure Enlive) 120 ml PO 4X/DAY [facility] Last Admin: 01/31/19 21:05 Dose: Not Given Oxycodone HCl (Oxyir) 5 mg PO Q4H PRN PRN PRN Reason: PAIN Pantoprazole Sodium (Protonix) 20 mg PO DAILY [facility] Potassium Chloride (K-Dur) 20 meq PO BIDCM [facility] Last Admin: 01/31/19 17:28 Dose: 20 meq Senna (Senokot) 1 tablet PO BID [facility] Last Admin: 01/31/19 21:06 Dose: Not Given Tolterodine Tartrate (Detrol La) 2 mg PO DAILY [facility] Medical Necessity - Tobacco Use Smoking Status: Never smoker Assessment/Plan All Active Problems Acute cystitis (Acute) Hypokalemia (Acute) Shortness of breath (Acute) Lethargy (Acute) Decreased level of consciousness (Acute) Left hip pain (Acute) S/P ORIF (open reduction internal fixation) fracture (Resolved) Acute ischemic stroke (Acute) Patient is an 83-year-old lady admitted following a fall. Patient subsequent evaluation demonstrated presence of acute cystitis as well as hypokalemia admitted to regular nursing floor for further management 1. Adult failure to thrive in the context of multiple medical problems with recurrent falls and right hip contusion. Patient admitted to the regular nursing floor, ordered PT OT evaluation. A consult was also placed to sexual assault social worker to assess with discharge planning. 2. Acute cystitis urine and blood cultures sent. Patient had been started on ciprofloxacin on admission antibiotics subsequently switched to Rocephin in view of patient continued to spike fever. 3. Asthma: Not in exacerbation on corticosteroids as well as bronchodilators continued. 4. 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 Hypertension: Blood Pressure stable. Home medications continued. 6. Chronic diastolic congestive heart failure; stable 7. Gastroesophageal reflux disease 8. Hyperlipidemia 9. DVT prophylaxis- on enoxaparin 10. Diarrhea patient was on senna discontinued we will continue to monitor Code Visit Inpatient E&M: [id number] [facility] L3
[2019-02-01] MEDS: Tolterodine Tartrate 2 MG CAP.SA PO (08:24)
[2019-02-01] MEDS: Furosemide 20 MG Tablet PO (08:24)
[2019-02-01] MEDS: Pantoprazole Sodium 20 MG Tablet PO (08:24)
[2019-02-01] MEDS: Loratadine 10 MG Tablet PO (08:25)
[2019-02-01] MEDS: Atenolol 50 MG Tablet PO (08:25)
[2019-02-01] MEDS: Losartan Potassium 50 MG Tablet PO (08:25)
[2019-02-01] MEDS: Isosorbide Mononitrate 30 MG Tablet PO (08:25)
[2019-02-01] MEDS: Clopidogrel Bisulfate 75 MG Tablet PO (08:29)
[2019-02-01] MEDS: Enoxaparin 40 MG/0.4 ML Syringe SC (10:42)
--- NOTE | 2019-02-01 14:17 | CASEMGMT ---
SW spoke w/Kelsie from [facility], she is here to see pt, asked about discharge plan. SW explained we do not know at present, will call [facility] once we know. Charmaine Farooq is pt's regular case technician. CM/VICKY spoke w/PT, pt may benefit from a [facility] stay for rehab. SW spoke w/pt's son(as pt does have dementia) in regard to going to a facility for rehab. Son confirms he is POA and animal caretaker. He states that pt will not want to go but he would be in favor of it. He states he is in [place] at present and will be scheduling heart surgery for himself, not sure when this will be yet. He states if pt wants to return home he will be able to care for her until he goes for surgery. SW asked son if she were to go somewhere for rehab, where would he want her to go. He states it is really up to her to decide. She has been to [facility] and to [facility], did not like [facility]. Son states can tell pt it is just for short term. SW asked again if pt states wants to go home, if this is okay, he seems okay with this also. SW explained will speak w/pt and will call him tomorrow to check in regarding the plan. SW spoke w/pt in room. Pt reports not feeling well. SW asked about the plan from when she leaves the hospital, especially given that her son needs to have surgery. Pt initially said that her son was not having heart surgery, SW asked what type of surgery it is, pt states pt is getting five stents. VICKY asked would son be able to care for her if he is having this surgery. She states she has a daughter. SW inquired if the daughter can help, she states no. VICKY again explained she is not moving as well as usual, and what about going somewhere short term for rehab. VICKY reminded pt that she has been to [facility] and [facility], pt states will not go back to [facility]. Pt is agreeable to a referral to TCU however. SW explained will make referral and will follow up w/her tomorrow. VICKY called [facility], message left. VICKY will follow up w/both son and pt tomorrow. CARLOS EDUARDO Mauricio, GEOPHYSICAL SUPPORT SPECIALIST
[2019-02-01] MEDS: MELATONIN 10 MG TABLET 5 MG PO (22:30)
[2019-02-01] MEDS: Atorvastatin Calcium 10 MG Tablet PO (22:30)
[2019-02-02] VITALS (8 sets, daily range): BP systolic 135–163; BP diastolic 50–74; PULSE 67–75; RESP 18; TEMP 36.6–37.1; O2SAT 95–98
[2019-02-02] MEDS: Acetaminophen 500 MG Tablet PO ×5 (00:04→23:45)
[2019-02-02 07:14] LABS: Hemoglobin 10.5 g/dl (12.0-15.0); Mean Corp Hgb Conc 32.8 g/gl (32-36); Mean Corpuscular Hgb 30.2 pg (27.0-32.0); Platelet Count 167 K/mm3 (150-450); RBC Distribution Width CV 13.9 % (11.6-14.6); RBC Distribution Width SD 46.3 fl (35.1-43.9); Red Blood Count 3.48 M/mm3 (4.2-5.4); White Blood Count 7.6 K/mm3 (4.4-11.0)
[2019-02-02 07:16] LABS: Scan Indicated on CBC? Y/N NO
[2019-02-02 07:46] LABS: Anion Gap 7 (5-15); BUN 20 mg/dL (7-18); BUN/Creat Ratio 23.5 RATIO (10-20); Calcium,Total 8.4 mg/dL (8.5-10.1); Chloride 110 mmol/L (98-107); Creatinine, Serum 0.85 mg/dL (0.55-1.02); EST Glomerular Filtration Rate 68 mL/min (>60); Est Glom Filt Rate - Afr Amer 83 mL/min (>60); Estimated Creatinine Clearance 48.59 ml/min; Glucose 105 mg/dL (74-106); Potassium 3.7 mmol/L (3.5-5.1); Sodium Level 140 mmol/L (136-145)
--- NOTE | 2019-02-02 08:54 | PCM.PN.HOSP ---
Patient Problems: Active and Suspected Problems Acute cystitis (Acute) Hypokalemia (Acute) Subjective: Patient seen complains of sore throat. Throat examination demonstrated bilateral enlarged tonsils but no erythema or discharge. Patient urine cultures positive for E. coli sensitivities reviewed Objective: GENERAL: cooperative HEENT: Atraumatic; enlarged tonsils bilaterally EYES; Anicteric, Normal Conjunctiva NECK; supple, normal thyroid, RESPIRATORY: Diminished to auscultation bilaterally, CARDIOVASCULAR: Regular S1 S2, no audible murmurs GI: soft, non-tender, normoactive bowel sounds, : No Renal angle tenderness; EXTREMITIES: No edema, no clubbing, no cyanosis. MUSCULOSKELETAL: No Joint Tenderness; NEURO: Awake; no lateralizing signs. SKIN: No Rash PSYCH; Normal affect Vitals/I&O's: Vital Signs Temp Pulse Resp BP Pulse Ox 98.7 F 74 18 142/58 H 96 02/02/19 03:00 02/02/19 03:00 02/02/19 03:15 02/02/19 03:00 02/02/19 03:15 Oxygen Delivery Method Room Air Weight: 80.286 kg Body Mass Index (BMI) 28.5 Finger Stick Blood Glucose 111 Intake and Output for Last 24 Hours 01/31/19 02/01/19 02/02/19 23:59 23:59 23:59 Intake Total 1096 / 1096 1193 / 1193 593 / 593 Output Total 300 / 300 Balance 796 / 796 1193 / 1193 593 / 593 Microbiology Past 72 Hours 01/31/19 02:24 Urine, Catheterized Urine Culture - Final Presumptive E. coli Laboratory Results 02/02/19 06:50: WBC 7.6, RBC 3.48 L, Hgb 10.5 L, Hct 32.0 L, MCV 92.0, MCH 30.2, MCHC 32.8, RDW 13.9, RDW Differential 46.3 H, Plt Count 167, MPV 10.0 02/02/19 06:50: Sodium 140, Potassium 3.7, Chloride 110 H, Carbon Dioxide 23.0, Anion Gap 7, BUN 20 H, Creatinine 0.85, Estim Creat Clear Calc 48.59, Est GFR (MDRD) Af Amer 83, Est GFR (MDRD) Non-Af 68, BUN/Creatinine Ratio 23.5 H, Glucose 105, Calcium 8.4 L Current Medications Acetaminophen (Tylenol) 500 mg PO Q6 [facility] Last Admin: 02/02/19 05:44 Dose: 500 mg Atenolol (Tenormin (Beta Mckenzie)) 50 mg PO DAILY [facility] Last Admin: 02/01/19 08:25 Dose: 50 mg Atorvastatin Calcium (Lipitor) 10 mg PO HS [facility] Last Admin: 02/01/19 22:30 Dose: 10 mg Bisacodyl (Dulcolax) 5 mg PO DAILY PRN PRN PRN Reason: Constipation Clopidogrel Bisulfate (Plavix) 75 mg PO DAILY [facility] Last Admin: 02/01/19 08:29 Dose: 75 mg Enoxaparin Sodium (Lovenox) 40 mg SC DAILY@1000 [facility] Last Admin: 02/01/19 10:42 Dose: 40 mg Furosemide (Lasix) 20 mg PO QODAY [facility] Last Admin: 02/01/19 08:24 Dose: 20 mg Hydralazine HCl (Apresoline Iv) 5 mg IV Q4H PRN PRN PRN Reason: SBP > 160 Last Admin: 02/01/19 03:21 Dose: 5 mg Ceftriaxone Sodium 1 gm/ N/A 50 mls @ 100 mls/hr IV Q24 [facility] Last Admin: 02/01/19 10:41 Dose: 100 mls/hr Isosorbide Mononitrate (Imdur) 30 mg PO DAILY [facility] Last Admin: 02/01/19 08:25 Dose: 30 mg Loratadine (Claritin) 10 mg PO DAILY [facility] Last Admin: 02/01/19 08:25 Dose: 10 mg Losartan Potassium (Cozaar) 50 mg PO DAILY [facility] Last Admin: 02/01/19 08:25 Dose: 50 mg Magnesium Hydroxide (Milk Of Magnesia) 30 ml PO DAILY PRN PRN PRN Reason: Constipation Melatonin (Melatonin) 5 mg PO QHS [facility] Last Admin: 02/01/19 22:30 Dose: 5 mg Nutritional Formula (Lactose Free) (Ensure Enlive) 120 ml PO 4X/DAY [facility] Last Admin: 02/01/19 22:30 Dose: 120 ml Oxycodone HCl (Oxyir) 5 mg PO Q4H PRN PRN PRN Reason: PAIN Pantoprazole Sodium (Protonix) 20 mg PO DAILY [facility] Last Admin: 02/01/19 08:24 Dose: 20 mg Potassium Chloride (K-Dur) 20 meq PO BIDCM [facility] Last Admin: 02/02/19 08:13 Dose: 20 meq Tolterodine Tartrate (Detrol La) 2 mg PO DAILY [facility] Last Admin: 02/01/19 08:24 Dose: 2 mg Medical Necessity - Tobacco Use Smoking Status: Never smoker Assessment/Plan All Active Problems Acute cystitis (Acute) Hypokalemia (Acute) Shortness of breath (Acute) Lethargy (Acute) Decreased level of consciousness (Acute) Left hip pain (Acute) S/P ORIF (open reduction internal fixation) fracture (Resolved) Acute ischemic stroke (Acute) Patient is an 83-year-old lady admitted following a fall. Patient subsequent evaluation demonstrated presence of acute cystitis as well as hypokalemia admitted to regular nursing floor for further management 1. Adult failure to thrive in the context of multiple medical problems with recurrent falls and right hip contusion. Patient admitted to the regular nursing floor, ordered PT OT evaluation. A consult was also placed to social insurance administrator to assess with discharge planning. 2. Acute cystitis with E. coli patient had initially been started on ciprofloxacin this was switched to Rocephin on 02/01/2019. 3. Asthma: Not in exacerbation on corticosteroids as well as bronchodilators continued. 4. 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 Hypertension: Blood Pressure stable. Home medications continued. 6. Chronic diastolic congestive heart failure; stable 7. Gastroesophageal reflux disease 8. Hyperlipidemia 9. DVT prophylaxis- on enoxaparin 10. Diarrhea patient was on senna discontinued we will continue to monitor Active Medications Acetaminophen (Tylenol) 500 mg PO Q6 [facility] Last Admin: 02/02/19 05:44 Dose: 500 mg Atenolol (Tenormin (Beta Mckenzie)) 50 mg PO DAILY [facility] Last Admin: 02/01/19 08:25 Dose: 50 mg Atorvastatin Calcium (Lipitor) 10 mg PO HS [facility] Last Admin: 02/01/19 22:30 Dose: 10 mg Bisacodyl (Dulcolax) 5 mg PO DAILY PRN PRN PRN Reason: Constipation Clopidogrel Bisulfate (Plavix) 75 mg PO DAILY [facility] Last Admin: 02/01/19 08:29 Dose: 75 mg Enoxaparin Sodium (Lovenox) 40 mg SC DAILY@1000 [facility] Last Admin: 02/01/19 10:42 Dose: 40 mg Furosemide (Lasix) 20 mg PO QODAY [facility] Last Admin: 02/01/19 08:24 Dose: 20 mg Hydralazine HCl (Apresoline Iv) 5 mg IV Q4H PRN PRN PRN Reason: SBP > 160 Last Admin: 02/01/19 03:21 Dose: 5 mg Ceftriaxone Sodium 1 gm/ N/A 50 mls @ 100 mls/hr IV Q24 [facility] Last Admin: 02/01/19 10:41 Dose: 100 mls/hr Isosorbide Mononitrate (Imdur) 30 mg PO DAILY [facility] Last Admin: 02/01/19 08:25 Dose: 30 mg Loratadine (Claritin) 10 mg PO DAILY [facility] Last Admin: 02/01/19 08:25 Dose: 10 mg Losartan Potassium (Cozaar) 50 mg PO DAILY [facility] Last Admin: 02/01/19 08:25 Dose: 50 mg Magnesium Hydroxide (Milk Of Magnesia) 30 ml PO DAILY PRN PRN PRN Reason: Constipation Melatonin (Melatonin) 5 mg PO QHS [facility] Last Admin: 02/01/19 22:30 Dose: 5 mg Nutritional Formula (Lactose Free) (Ensure Enlive) 120 ml PO 4X/DAY [facility] Last Admin: 02/01/19 22:30 Dose: 120 ml Oxycodone HCl (Oxyir) 5 mg PO Q4H PRN PRN PRN Reason: PAIN Pantoprazole Sodium (Protonix) 20 mg PO DAILY [facility] Last Admin: 02/01/19 08:24 Dose: 20 mg Potassium Chloride (K-Dur) 20 meq PO BIDCM [facility] Last Admin: 02/02/19 08:13 Dose: 20 meq Tolterodine Tartrate (Detrol La) 2 mg PO DAILY [facility] Last Admin: 02/01/19 08:24 Dose: 2 mg Code Visit Inpatient E&M: 61588 Subs Hosp L2
--- NOTE | 2019-02-02 10:16 | CASEMGMT ---
VICKY spoke w/Emilia in TCU, pt will have a bed in TCU Wednesday vs. Wednesday, it is likely the bed will be available tomorrow. SW met w/pt in room, she does not remember speaking w/SW yesterday, but states she is going here for rehab. SW inquired if she means TCU, pt states yes. SW explained it is not definite they will have a bed tomorrow, and inquired where else she may consider if there is no bed. Pt states she will go home if there is no bed in TCU. VICKY called son, explained did speak w/pt and she is in agreement w/TCU. SW explained she will not agree to anywhere else but TCU and said if she cannot go to TCU will go home. Son is having bypass surgery tomorrow in [place] and will not be home, so pt going home is not realistic. Son in agreement w/pt going to TCU. SW explained that there will be a bed in TCU tomorrow vs. Wednesday. SW also let son know if pt needs longer than 20 days, the SW in TCU can work w/family to find another facility after, as TCU does not take pt's secondary insurance and she would not be able to stay longer than 20 days in TCU. Son states understanding. When pt is discharged, SW to call pt's daughter since son will be in hospital. VICKY spoke w/physician and explained the situation, and that there will be a bed in TCU on Wednesday vs. Wednesday. VICKY called TCU and let Emilia know that the plan is definitely for pt to go to TCU at discharge, whether the bed is available Wednesday or Wednesday. VICKY will continue to follow for discharge to TCU. CARLOS EDUARDO Mauricio, PROFESSOR/NURSE ANESTHETIST
[2019-02-02] MEDS: Pantoprazole Sodium 20 MG Tablet PO (10:45)
[2019-02-02] MEDS: Tolterodine Tartrate 2 MG CAP.SA PO (10:45)
[2019-02-02] MEDS: Isosorbide Mononitrate 30 MG Tablet PO (10:45)
[2019-02-02] MEDS: Losartan Potassium 50 MG Tablet PO (10:46)
[2019-02-02] MEDS: Clopidogrel Bisulfate 75 MG Tablet PO (10:46)
[2019-02-02] MEDS: Atenolol 50 MG Tablet PO (10:46)
[2019-02-02] MEDS: Enoxaparin 40 MG/0.4 ML Syringe SC (10:46)
[2019-02-02] MEDS: Loratadine 10 MG Tablet PO (10:47)
[2019-02-02] MEDS: oxyCODONE 5 MG Tablet PO (15:39)
[2019-02-02] MEDS: MELATONIN 10 MG TABLET 5 MG PO (22:32)
[2019-02-02] MEDS: Atorvastatin Calcium 10 MG Tablet PO (22:32)
[2019-02-03] MEDS: oxyCODONE 5 MG Tablet PO (01:45)
[2019-02-03 01:50] VITALS: BP 165/66; PULSE 74; RESP 18; TEMP 36.7; O2SAT 97
[2019-02-03 01:52] VITALS: BP 165/66; PULSE 74
[2019-02-03] MEDS: hydrALAZINE 20 MG/ML Vial 5 MG IV (01:52)
[2019-02-03 06:19] VITALS: BP 142/64; PULSE 64
[2019-02-03] MEDS: Acetaminophen 500 MG Tablet PO ×2 (06:20→12:33)
[2019-02-03 06:27] LABS: Anion Gap 7 (5-15); BUN 17 mg/dL (7-18); BUN/Creat Ratio 24.7 RATIO (10-20); Calcium,Total 8.6 mg/dL (8.5-10.1); Chloride 109 mmol/L (98-107); Creatinine, Serum 0.69 mg/dL (0.55-1.02); EST Glomerular Filtration Rate 87 mL/min (>60); Est Glom Filt Rate - Afr Amer 105 mL/min (>60); Glucose 97 mg/dL (74-106); Potassium 3.8 mmol/L (3.5-5.1); Sodium Level 141 mmol/L (136-145)
[2019-02-03 07:38] VITALS: BP 150/75; PULSE 64; RESP 18; TEMP 36.4; O2SAT 96
[2019-02-03] MEDS: Pantoprazole Sodium 20 MG Tablet PO (07:49)
[2019-02-03] MEDS: Loratadine 10 MG Tablet PO (07:49)
[2019-02-03] MEDS: Clopidogrel Bisulfate 75 MG Tablet PO (07:49)
[2019-02-03] MEDS: Isosorbide Mononitrate 30 MG Tablet PO (07:49)
[2019-02-03] MEDS: Losartan Potassium 50 MG Tablet PO (07:49)
[2019-02-03] MEDS: Atenolol 50 MG Tablet PO (07:49)
[2019-02-03] MEDS: Furosemide 20 MG Tablet PO (07:49)
[2019-02-03] MEDS: Tolterodine Tartrate 2 MG CAP.SA PO (07:50)
[2019-02-03] MEDS: Enoxaparin 40 MG/0.4 ML Syringe SC (10:37)
--- NOTE | 2019-02-03 13:48 | CASEMGMT ---
CM will follow up w/Emilia in TCU regarding whether pt will have a bed in TCU today vs tomorrow. CARLOS EDUARDO Mauricio, HOUSING GRANT ANALYST
[2019-02-03 15:00] VITALS: BP 138/76; PULSE 74; RESP 16; TEMP 37; O2SAT 97
--- NOTE | 2019-02-03 15:58 | CASEMGMT ---
RN CM Note: call to Emilia U mgr. OK to discharge pt to TCU today. [facility] nurse updated, Text to Dr. Dubon who will complete transfer paperwork. Reza SIMPSONN RN ACM
--- NOTE | 2019-02-03 16:04 | PCM.TXEXTCAR ---
- Diet 01/31/19 05:39 Diet: Regular Diet Food consistency:: Mechanical Soft/Ground Liquid Consistency:: Regular/Thin Dietary Modifications:: Mechanical Soft Diet Diet Comments: Distaint supervision; seated at 90 degrees; meds w/ liquids - Routine Orders/Code Status Enema Type: Fleetz Enema Frequency: Daily PRN Suppository Type: Dulcolax 10mg Suppository Frequency: Daily PRN O2 Frequency: PRN Keep PO Greater than or Equal to (%): 90 Code Status: Full Code - Wound(s) top of right foot- abrasion- scabbed Wound Type: scabbed linear abrasion - Therapies Weight Bearing: Weight bearing as tolerated Physical Therapy: Eval and Treat Occupational Therapy: Eval and Treat - Allergies/Procedures Done in Hospital Allergies/Adverse Reactions: Allergies adhesive Allergy (Verified 01/31/19 00:03) Unknown adhesive tape amitriptyline Allergy (Verified 01/31/19 00:03) Unknown codeine Allergy (Verified 01/31/19 00:03) Unknown hydrocodone bitartrate [From Vicodin] Allergy (Verified 01/31/19 00:03) Hives Iodinated Contrast- Oral and IV Dye [Iodinated Contrast Media - IV Dye] Allergy (Verified 01/31/19 00:03) Unknown naproxen Allergy (Verified 01/31/19 00:03) Unknown Penicillins Allergy (Verified 01/31/19 00:03) Rash phenytoin sodium [From Dilantin] Allergy (Verified 01/31/19 00:03) Unknown phenytoin sodium extended [From Dilantin] Allergy (Verified 01/31/19 00:03) Unknown silicone Allergy (Verified 01/31/19 00:03) Unknown Procedures: None - Type of Care/Length of Stay Estimated LOS: Convalescent Care Less Than 30 days Type of Care Needed: Skilled Rehab Potential: Fair Prognosis: Fair - Additional Orders/Day of Discharge Day of Discharge: 02/03/19 - Dietary and Speech Recommendations Dietitian Recommendations/Changes: Continue Regular Diet, continue to offer Ensure Enlive ONS on medpass - Follow Up Care Primary Care Physician: Eusebia Menjivar,Out of [NON-STAFF] - Please follow up with your Primary Care Physician in: follow up with PCP in one week
--- NOTE | 2019-02-03 16:16 | PCM.DC.SUM ---
Discharge Date and Diagnosis - Problem List Patient Problems: Active and Suspected Problems Acute cystitis (Acute) Hypokalemia (Acute) Date of Admission: 01/31/19 Date of Discharge: 02/03/19 - Primary Discharge Diagnosis Active and Suspected Problems Acute cystitis (Acute) Hypokalemia (Acute) mechanical fall - Secondary Discharge Diagnosis Chronic Problems Benign essential HTN (Chronic) Cerebrovascular disease (Chronic) reported 2 strokes mild left facial droop Gastroesophageal reflux disease (Chronic) HLD (hyperlipidemia) (Chronic) Urinary incontinence (Chronic) small vessel disease negative MRA 12/06 Hospital Course and Treatment Imaging Results: Diagnostic Data Chest X-Ray 01/30/19 23:43 IMPRESSION: No acute cardiopulmonary disease. Other findings as above. Electronically Signed: Alin Qiu, at 1:13 EDT Tel , Service support , Hip/Pelvis X-Ray 01/31/19 00:34 IMPRESSION: There is mild arthrosis of the RIGHT hip joint. There is NO fracture or dislocation. Electronically Signed: Fox Kennedy MD at 1:40 EDT , Service support , Brain CT 01/31/19 23:43 IMPRESSION: Chronic involutional and white matter changes are present. No acute territorial infarct or intracranial hemorrhage is seen. If patient's symptomology persists or there is continuing clinical concern MRI or follow-up CT scan can be performed. Next Extensive atherosclerotic calcifications of the carotid and vertebral arteries are present. Electronically Signed: Alin Qiu, at 2:27 EDT Tel , Service support , Operations: None Procedures: None Summary of Care Provided: The patient is a 83 year old F who was admitted with a complaint of mechanical fall. CT of her head done was negative and xray of her right hip was also unremarkable. She was noted to be hypokalemic in the ED and her potassium was replaced. UA was positive for UTI, so she was started on IV ciprofloxacin. She was admitted and managed for mechanical fall and UTi as well as hypokalemia. Antibiotics were changed to ceftriaxone. Patient remained stable and urine cultured E. coli. She was discharged on 02/03/2019 to the transitional care unit. She was given a prescription for p.o. ciprofloxacin for 3 days. She is to follow-up with her primary care doctor in 1 week. Patient seen and examined prior to discharge. She had no complaints and felt well though she was a bit confused. Review of systems otherwise negative. Labs and vitals reviewed. Home medications reviewed and reconciled. [] Patient Problems: Active and Suspected Problems Acute cystitis (Acute) Hypokalemia (Acute) - Physical Exam General: Alert, Cooperative, Confused HEENT: Atraumatic, PERRLA, EOMI, Normocephalic Oral: Moist Mucosa Neck: Supple, No JVD, Negative Carotid Bruits Lungs: Clear to auscultation, Normal air movement, No rhonchi, No wheeze, No rales Cardiovascular: Regular rate, Regular Rhythm, Normal S1, Normal S2, No murmurs Abdomen: Bowel Sounds Present, Soft, Non Tender, Non-Distended Extremities: No clubbing, No cyanosis, No edema, Capillary Refill Less than 3 Seconds Skin: No rashes, No breakdown Musculoskeletal: No Tenderness to Palpation of Joints or Extremities Lymphatic: No Cervical, Supraclavicular, or Inguinal Adenopathy Neurological: Cranial nerves II-XII grossly intact, Neuro grossly intact, Motor Exam 5/5 strength throughout Psych/Mental Status: Normal Affect, Appropriate Vital Signs Temp Pulse Resp BP Pulse Ox 98.6 F 74 16 138/76 H 97 02/03/19 15:00 02/03/19 15:00 02/03/19 15:00 02/03/19 15:00 02/03/19 15:00 Oxygen Delivery Method Room Air Weight: 177 lb 0.005 oz Body Mass Index (BMI) 28.5 Finger Stick Blood Glucose 111 Intake and Output for Last 24 Hours 02/01/19 02/02/19 02/03/19 23:59 23:59 23:59 Intake Total 1193 / 1193 1813 / 1813 726 / 726 Balance 1193 / 1193 1813 / 1813 726 / 726 Microbiology Past 72 Hours 02/03/19 13:36 C. difficile DNA Amplification - Final Stool 01/31/19 02:24 Urine Culture - Final Urine, Catheterized Presumptive E. coli Laboratory Tests Past 24 Hrs 02/03/19 05:40 Sodium 141 Potassium 3.8 Chloride 109 H Carbon Dioxide 25.0 Anion Gap 7 BUN 17 Creatinine 0.69 Estim Creat Clear Calc 41.30 Est GFR (MDRD) Af Amer 105 Est GFR (MDRD) Non-Af 87 BUN/Creatinine Ratio 24.7 H Glucose 97 Calcium 8.6 Discharge Diet: Low fat/ Low Cholesterol Weight Bearing Status: Weight bearing as tolerated Call your doctor if you observe: Fever of 101 or Higher Home Medications: Medications to take at Discharge Atenolol 50 mg PO DAILY 01/31/19 Atorvastatin Calcium 10 mg PO DAILY 01/31/19 Clopidogrel Bisulfate [Plavix] 75 mg PO DAILY 01/31/19 Furosemide [Lasix] 20 mg PO QODAY 01/31/19 Isosorbide Mononitrate [Isosorbide Mononitrate ER] 30 mg PO DAILY 01/31/19 Loratadine [Claritin] 10 mg PO DAILY 01/31/19 Losartan Potassium 50 mg PO DAILY 01/31/19 Melatonin 5 mg PO QHS 01/31/19 Omeprazole [Prilosec] 20 mg PO DAILY 01/31/19 Oxybutynin Chloride [Oxybutynin Chloride ER] 10 mg PO DAILY 01/31/19 Potassium Chloride [K-Dur] 20 meq PO BID 01/31/19 Ciprofloxacin [Cipro] 500 mg PO BID #6 tab 02/03/19 Following Prescrptions Were Given to Patient: Ciprofloxacin [Cipro] 500 mg PO BID #6 tab Primary Care Physician: [facility] Doctor,Out of [NON-STAFF] - Please follow up with your Primary Care Physician in: follow up with PCP in one week Disposition: Penitentiary facility Minutes spent on discharge:: 40 Patient Condition:: Stable Medical Necessity - Tobacco Use Smoking Status: Never smoker Meaningful Use Info Meaningful Use Diagnoses (Choose all that apply): None applicable Code Visit Inpatient E&M: 82489 Disch Hosp
--- NOTE | 2019-02-03 16:19 | NURSING ---
report called to IBRAHIMA Stephens on TCU
--- NOTE | 2019-02-03 16:26 | DS.PCM_ITS ---
Discharge Date and Diagnosis - Problem List Patient Problems: Active and Suspected Problems Acute cystitis (Acute) Hypokalemia (Acute) Date of Admission: 01/31/19 Date of Discharge: 02/03/19 - Primary Discharge Diagnosis Active and Suspected Problems Acute cystitis (Acute) Hypokalemia (Acute) mechanical fall - Secondary Discharge Diagnosis Chronic Problems Benign essential HTN (Chronic) Cerebrovascular disease (Chronic) reported 2 strokes mild left facial droop Gastroesophageal reflux disease (Chronic) HLD (hyperlipidemia) (Chronic) Urinary incontinence (Chronic) small vessel disease negative MRA 12/06 Hospital Course and Treatment Imaging Results: Diagnostic Data Chest X-Ray 01/30/19 23:43 IMPRESSION: No acute cardiopulmonary disease. Other findings as above. Electronically Signed: Alin Qiu, at 1:13 EDT Tel , Service support , Hip/Pelvis X-Ray 01/31/19 00:34 IMPRESSION: There is mild arthrosis of the RIGHT hip joint. There is NO fracture or dislocation. Electronically Signed: Fox Kennedy MD at 1:40 EDT , Service support , Brain CT 01/31/19 23:43 IMPRESSION: Chronic involutional and white matter changes are present. No acute territorial infarct or intracranial hemorrhage is seen. If patient's symptomology persists or there is continuing clinical concern MRI or follow-up CT scan can be performed. Next Extensive atherosclerotic calcifications of the carotid and vertebral arteries are present. Electronically Signed: Alin Qiu, at 2:27 EDT Tel , Service support , Operations: None Procedures: None Summary of Care Provided: The patient is a 83 year old F who was admitted with a complaint of mechanical fall. CT of her head done was negative and xray of her right hip was also unremarkable. She was noted to be hypokalemic in the ED and her potassium was replaced. UA was positive for UTI, so she was started on IV ciprofloxacin. She was admitted and managed for mechanical fall and UTi as well as hypokalemia. Antibiotics were changed to ceftriaxone. Patient remained stable and urine cultured E. coli. She was discharged on 02/03/2019 to the transitional care unit. She was given a prescription for p.o. ciprofloxacin for 3 days. She is to follow-up with her primary care doctor in 1 week. Patient seen and examined prior to discharge. She had no complaints and felt well though she was a bit confused. Review of systems otherwise negative. Labs and vitals reviewed. Home medications reviewed and reconciled. [] Patient Problems: Active and Suspected Problems Acute cystitis (Acute) Hypokalemia (Acute) - Physical Exam General: Alert, Cooperative, Confused HEENT: Atraumatic, PERRLA, EOMI, Normocephalic Oral: Moist Mucosa Neck: Supple, No JVD, Negative Carotid Bruits Lungs: Clear to auscultation, Normal air movement, No rhonchi, No wheeze, No ral es Cardiovascular: Regular rate, Regular Rhythm, Normal S1, Normal S2, No murmurs Abdomen: Bowel Sounds Present, Soft, Non Tender, Non-Distended Extremities: No clubbing, No cyanosis, No edema, Capillary Refill Less than 3 Seconds Skin: No rashes, No breakdown Musculoskeletal: No Tenderness to Palpation of Joints or Extremities Lymphatic: No Cervical, Supraclavicular, or Inguinal Adenopathy Neurological: Cranial nerves II-XII grossly intact, Neuro grossly intact, Motor Exam 5/5 strength throughout Psych/Mental Status: Normal Affect, Appropriate Vital Signs Temp Pulse Resp BP Pulse Ox 98.6 F 74 16 138/76 H 97 02/03/19 15:00 02/03/19 15:00 02/03/19 15:00 02/03/19 15:00 02/03/19 15:00 Oxygen Delivery Method Room Air Weight: 177 lb 0.005 oz Body Mass Index (BMI) 28.5 Finger Stick Blood Glucose 111 Intake and Output for Last 24 Hours 02/01/19 02/02/19 02/03/19 23:59 23:59 23:59 Intake Total 1193 / 1193 1813 / 1813 726 / 726 Balance 1193 / 1193 1813 / 1813 726 / 726 Microbiology Past 72 Hours 02/03/19 13:36 C. difficile DNA Amplification - Final Stool 01/31/19 02:24 Urine Culture - Final Urine, Catheterized Presumptive E. coli Laboratory Tests Past 24 Hrs 02/03/19 05:40 Sodium 141 Potassium 3.8 Chloride 109 H Carbon Dioxide 25.0 Anion Gap 7 BUN 17 Creatinine 0.69 Estim Creat Clear Calc 41.30 Est GFR (MDRD) Af Amer 105 Est GFR (MDRD) Non-Af 87 BUN/Creatinine Ratio 24.7 H Glucose 97 Calcium 8.6 Discharge Diet: Low fat/ Low Cholesterol Weight Bearing Status: Weight bearing as tolerated Call your doctor if you observe: Fever of 101 or Higher Home Medications: Medications to take at Discharge Atenolol 50 mg PO DAILY 01/31/19 Atorvastatin Calcium 10 mg PO DAILY 01/31/19 Clopidogrel Bisulfate [Plavix] 75 mg PO DAILY 01/31/19 Furosemide [Lasix] 20 mg PO QODAY 01/31/19 Isosorbide Mononitrate [Isosorbide Mononitrate ER] 30 mg PO DAILY 01/31/19 Loratadine [Claritin] 10 mg PO DAILY 01/31/19 Losartan Potassium 50 mg PO DAILY 01/31/19 Melatonin 5 mg PO QHS 01/31/19 Omeprazole [Prilosec] 20 mg PO DAILY 01/31/19 Oxybutynin Chloride [Oxybutynin Chloride ER] 10 mg PO DAILY 01/31/19 Potassium Chloride [K-Dur] 20 meq PO BID 01/31/19 Ciprofloxacin [Cipro] 500 mg PO BID #6 tab 02/03/19 Following Prescrptions Were Given to Patient: Ciprofloxacin [Cipro] 500 mg PO BID #6 tab Primary Care Physician: [facility] Doctor,Out of [NON-STAFF] - Please follow up with your Primary Care Physician in: follow up with PCP in one week Disposition: Intermediate facility Minutes spent on discharge:: 40 Patient Condition:: Stable Medical Necessity - Tobacco Use Smoking Status: Never smoker Meaningful Use Info Meaningful Use Diagnoses (Choose all that apply): None applicable Code Visit Inpatient E&M: 12500 Disch Hosp
== END 2019-02-03 16:30 | disposition skilled nursing facility (03) | DRG 690 ==
LOC: ED 01-31 01:17 → MS2 01-31 04:56
PROVIDERS: Family Medicine; Internal Medicine; Admitting Provider Hospitalist; Emergency Provider Emergency Medicine; Visit Provider Student in an Organized Health Care Education/Training Program
DX: N30.00 Acute cystitis without hematuria (principal); I50.32 Chronic diastolic (congestive) heart failure; G93.40 Encephalopathy, unspecified; K21.9 Gastro-esophageal reflux disease without esophagitis; E87.6 Hypokalemia; E78.5 Hyperlipidemia, unspecified; R32 Unspecified urinary incontinence; B96.20 Unspecified Escherichia coli [E. coli] as the cause of diseases classified elsewhere; I11.0 Hypertensive heart disease with heart failure; I69.322 Dysarthria following cerebral infarction; J45.909 Unspecified asthma, uncomplicated; Z88.0 Allergy status to penicillin; S70.01XA Contusion of right hip, initial encounter; W06.XXXA Fall from bed, initial encounter; Y92.013 Bedroom of single-family (private) house as the place of occurrence of the external cause; R29.810 Facial weakness
CPT/HCPCS: 36415; 70450; 71045; 73502; 80048; 81001; 82607; 83605; 83735; 85025; 85027; 85610; 85730; 87040; 87086; 87088; 87186; 87493; 92526; 92610; 93005; 97110; 97162; 97166; 97530; 97535; 97802; 99285; J7030; A4216; J0744; J2405

== ENCOUNTER 2019-02-03 17:19 | Inpatient (IN) | payer MEDICARE, MEDICAID, SELFPAY ==
[2019-01-31 05:49] VITALS: BMI 28.5
[2019-02-03 17:28] VITALS: BP 153/81; PULSE 74; RESP 18; TEMP 36.8; O2SAT 96
[2019-02-03 17:47] VITALS: BMI 28.5
[2019-02-03 17:54] VITALS: BMI 28.6
--- NOTE | 2019-02-03 18:06 | NURSING ---
R' ARRIVED FROM [facility] UNIT AT 1640.
[2019-02-03] MEDS: Ciprofloxacin 500 MG Tablet PO (19:06)
--- NOTE | 2019-02-03 19:23 | PCM.HP.STD ---
Problem List (1) Fall Status: Acute (2) Encephalopathy Status: Acute (3) Intellectual disability Status: Chronic (4) Hallucinations Status: Acute (5) Urinary tract infection Status: Acute (6) Hypertension Status: Chronic (7) Stroke Status: Chronic (8) Edema Status: Chronic (9) Overactive bladder Status: Chronic (10) Allergic rhinitis Status: Chronic (11) Vitamin D deficiency Status: Chronic (12) Insomnia Status: Chronic (13) Asthma Status: Chronic (14) Hypokalemia Status: Acute (15) Gastroesophageal reflux disease Status: Chronic (16) HLD (hyperlipidemia) Status: Chronic History of Present Illness Date of Admission: 02/03/19 Chief Complaint: Here for rehabilitation, strengthening, prior to discharge home with son. The patient is a 83 year old Female with below past medical history presented to [facility] Emergency Department 01/30/2019 with fall. 01/30/2019 Chest X-ray negative, left calcific tendinitis. 01/30/2019 EKG Normal sinus rhythm, left axis deviation, right bundle branch block, left ventricular hypertrophy with repolarization abnormality. 01/31/2019 X-ray right hip, mild arthritis, negative fracture. Fell out of bed, right hip pain, back of head pain. Hallucinations en route in ambulance. WBC 13.6 with left shift, K 3.1, Coag negative. UA consistent with UTI, urine culture, blood culture sent. Fentanyl, Zofran, IV fluids, KCL, Cipro given. 01/31/2019 Admit to Hospital. Cipro for UTI, urine culture pending. Check BMP for hypokalemia. PT/OT. Hydralazine as needed for elevated blood pressure. 01/31/2019 CT head showed chronic involutional changes, negative for stroke. 02/01/2019 Cipro changed to Rocephin IV due to persistent fever. Urine culture grew > 100,000 E. Coli. Patient has history of multiple urinary tract infections. 02/02/2019 Consult case management for discharge planning. 02/03/2019 Admit to TCU with debility, here for rehabilitation, strengthening, prior to discharge home with son. Past Medical History Past Medical History (Chronic Problems): Chronic Problems Intellectual disability (Chronic) Hypertension (Chronic) Stroke (Chronic) Edema (Chronic) Overactive bladder (Chronic) Allergic rhinitis (Chronic) Vitamin D deficiency (Chronic) Insomnia (Chronic) Asthma (Chronic) Benign essential HTN (Chronic) Cerebrovascular disease (Chronic) reported 2 strokes mild left facial droop Gastroesophageal reflux disease (Chronic) HLD (hyperlipidemia) (Chronic) Urinary incontinence (Chronic) small vessel disease negative MRA 12/06 Allergies adhesive Allergy (Verified 01/31/19 00:03) Unknown adhesive tape amitriptyline Allergy (Verified 01/31/19 00:03) Unknown codeine Allergy (Verified 01/31/19 00:03) Unknown hydrocodone bitartrate [From Vicodin] Allergy (Verified 01/31/19 00:03) Hives Iodinated Contrast- Oral and IV Dye [Iodinated Contrast Media - IV Dye] Allergy (Verified 01/31/19 00:03) Unknown naproxen Allergy (Verified 01/31/19 00:03) Unknown Penicillins Allergy (Verified 01/31/19 00:03) Rash phenytoin sodium [From Dilantin] Allergy (Verified 01/31/19 00:03) Unknown phenytoin sodium extended [From Dilantin] Allergy (Verified 01/31/19 00:03) Unknown silicone Allergy (Verified 01/31/19 00:03) Unknown Home Medications: Ambulatory Orders Medication Instructions Recorded Atenolol 50 mg PO DAILY 01/31/19 Atorvastatin Calcium 10 mg PO DAILY 01/31/19 Clopidogrel Bisulfate [Plavix] 75 mg PO DAILY 01/31/19 Furosemide [Lasix] 20 mg PO QODAY 01/31/19 Isosorbide Mononitrate [Isosorbide 30 mg PO DAILY 01/31/19 Mononitrate ER] Loratadine [Claritin] 10 mg PO DAILY 01/31/19 Losartan Potassium 50 mg PO DAILY 01/31/19 Melatonin 5 mg PO QHS 01/31/19 Omeprazole [Prilosec] 20 mg PO DAILY 01/31/19 Oxybutynin Chloride [Oxybutynin 10 mg PO DAILY 01/31/19 Chloride ER] Potassium Chloride [K-Dur] 20 meq PO BID 01/31/19 Ciprofloxacin [Cipro] 500 mg PO BID 02/03/19 Surgical History: appendectomy, hysterectomy, - - Craniotomy s/p trauma. 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 Lives: With Family Smoking Status: Never smoker Tobacco Use: Non-smoker Alcohol: None Drugs: None - *Family History Maternal History Items: Cancer, Diabetes, Stroke - Stroke and aneurysm in mother Paternal History Items: Cancer, Diabetes, No pertinent history Sibling History Items: Cancer, Diabetes Review of Systems Constitutional: Denies: Chills, Fever, Weight Change HEENT: Denies: Head Aches, Sinus Congestion, Sinus Drainage Cardiovascular: Denies: Chest Pain, Palpitations Respiratory: Denies: Cough, Shortness of breath at rest, Sputum production Gastrointestinal: Denies: Abdominal Pain, Nausea, Vomiting Genitourinary: Denies: Dysuria Musculoskeletal: Denies: Joint Pain, Joint Tenderness Skin: Denies: Rash, Wounds Neurological: Denies: Numbness, Tingling, Focal weakness Psychiatric: Denies: Anxiety, Depression, Homicidal Ideations, Suicidal Ideations Hematologic/ Lymphatic: Denies: Easy Bruising, Easy Bleeding VTE Information - Inpt Only VTE Present on Admission: No VTE Mechan Device Prophylaxis: Knee High SESAR Hose VTE Pharm Prophylaxis ordered?: Yes Patient Problems: Active and Suspected Problems Fall (Acute) Encephalopathy (Acute) Hallucinations (Acute) Urinary tract infection (Acute) - Physical Exam General: Alert, Oriented x3, Cooperative HEENT: Atraumatic, PERRLA, EOMI, Normocephalic Neck: Supple, No JVD, Negative Carotid Bruits Lungs: Clear to auscultation, Normal air movement Cardiovascular: Regular rate, No murmurs Abdomen: Bowel Sounds Present, Soft, Non Tender Extremities: No edema, Capillary Refill Less than 3 Seconds Skin: No rashes, No breakdown Musculoskeletal: No Tenderness to Palpation of Joints or Extremities Neurological: Cranial nerves II-XII grossly intact Psych/Mental Status: Normal Affect, Appropriate Vital Signs Temp Pulse Resp BP Pulse Ox 98.3 F 74 18 153/81 H 96 02/03/19 17:28 02/03/19 17:28 02/03/19 17:28 02/03/19 17:28 02/03/19 17:28 Oxygen Delivery Method Room Air Weight: 80.286 kg Body Mass Index (BMI) 28.5 Finger Stick Blood Glucose 111 Assessment/Plan All Active Problems Acute cystitis (Acute) Hypokalemia (Acute) Fall (Acute) Encephalopathy (Acute) Hallucinations (Acute) Urinary tract infection (Acute) Shortness of breath (Acute) Lethargy (Acute) Decreased level of consciousness (Acute) Left hip pain (Acute) S/P ORIF (open reduction internal fixation) fracture (Resolved) Acute ischemic stroke (Acute) 83 year old female with below past medical history hospitalized for E. Coli urinary tract infection, complicated by encephalopathy, admitted to TCU with debility, here for rehabilitation, strengthening, prior to discharge home with family. Debility - PT/OT. Dysarthria - ST. Pain - Tylenol 1000MG Q6H PRN mild pain. Bowel - Miralax 17GM daily, Senna/colace 1 tablet BID, Dulcolax 10MG daily PRN. Pneumonia vaccination - Administer Prevnar 13 and/or Pneumovax 23 as necessary. DVT prophylaxis - Lovenox 40MG SC daily. Coronary Artery Disease - Atenolol 50MG daily, Losartan 50MG daily Imdur 30MG daily. Hyperlipidemia - Atorvastatin 10MG QHS. E. Coli UTI - Cipro 500MG BID thru 02/06/2019. Stroke - Plavix 75MG daily. Nutrition - Ensure Enlive 120ML 4x/day. Edema - Lasix 20MG every other day. Allergic Rhinitis - Loratadine 10MG daily. Insomnia - Melatonin 5MG QHS. GERD - Pantoprazole 20MG daily. Hypokalemia - K-Dur 20MEQ BID. Overactive bladder - Tolterodine 2MG daily.
--- NOTE | 2019-02-03 19:30 | HP.PCM_ITS ---
Problem List (1) Fall Status: Acute (2) Encephalopathy Status: Acute (3) Intellectual disability Status: Chronic (4) Hallucinations Status: Acute (5) Urinary tract infection Status: Acute (6) Hypertension Status: Chronic (7) Stroke Status: Chronic (8) Edema Status: Chronic (9) Overactive bladder Status: Chronic (10) Allergic rhinitis Status: Chronic (11) Vitamin D deficiency Status: Chronic (12) Insomnia Status: Chronic (13) Asthma Status: Chronic (14) Hypokalemia Status: Acute (15) Gastroesophageal reflux disease Status: Chronic (16) HLD (hyperlipidemia) Status: Chronic History of Present Illness Date of Admission: 02/03/19 Chief Complaint: Here for rehabilitation, strengthening, prior to discharge home with son. The patient is a 83 year old Female with below past medical history presented to [facility] Emergency Department 01/30/2019 with fall. 01/30/2019 Chest X-ray negative, left calcific tendinitis. 01/30/2019 EKG Normal sinus rhythm, left axis deviation, right bundle branch block, left ventricular hypertrophy with repolarization abnormality. 01/31/2019 X-ray right hip, mild arthritis, negative fracture. Fell out of bed, right hip pain, back of head pain. Hallucinations en route in ambulance. WBC 13.6 with left shift, K 3.1, Coag negative. UA consistent with UTI, urine culture, blood culture sent. Fentanyl, Zofran, IV fluids, KCL, Cipro given. 01/31/2019 Admit to Hospital. Cipro for UTI, urine culture pending. Check BMP for hypokalemia. PT/OT. Hydralazine as needed for elevated blood pressure. 01/31/2019 CT head showed chronic involutional changes, negative for stroke. 02/01/2019 Cipro changed to Rocephin IV due to persistent fever. Urine culture grew > 100,000 E. Coli. Patient has history of multiple urinary tract infections. 02/02/2019 Consult case management for discharge planning. 02/03/2019 Admit to TCU with debility, here for rehabilitation, strengthening, prior to discharge home with son. Past Medical History Past Medical History (Chronic Problems): Chronic Problems Intellectual disability (Chronic) Hypertension (Chronic) Stroke (Chronic) Edema (Chronic) Overactive bladder (Chronic) Allergic rhinitis (Chronic) Vitamin D deficiency (Chronic) Insomnia (Chronic) Asthma (Chronic) Benign essential HTN (Chronic) Cerebrovascular disease (Chronic) reported 2 strokes mild left facial droop Gastroesophageal reflux disease (Chronic) HLD (hyperlipidemia) (Chronic) Urinary incontinence (Chronic) small vessel disease negative MRA 12/06 Allergies adhesive Allergy (Verified 01/31/19 00:03) Unknown adhesive tape amitriptyline Allergy (Verified 01/31/19 00:03) Unknown codeine Allergy (Verified 01/31/19 00:03) Unknown hydrocodone bitartrate [From Vicodin] Allergy (Verified 01/31/19 00:03) Hives Iodinated Contrast- Oral and IV Dye [Iodinated Contrast Media - IV Dye] Allergy (Verified 01/31/19 00:03) Unknown naproxen Allergy (Verified 01/31/19 00:03) Unknown Penicillins Allergy (Verified 01/31/19 00:03) Rash phenytoin sodium [From Dilantin] Allergy (Verified 01/31/19 00:03) Unknown phenytoin sodium extended [From Dilantin] Allergy (Verified 01/31/19 00:03) Unknown silicone Allergy (Verified 01/31/19 00:03) Unknown Home Medications: Ambulatory Orders Medication Instructions Recorded Atenolol 50 mg PO DAILY 01/31/19 Atorvastatin Calcium 10 mg PO DAILY 01/31/19 Clopidogrel Bisulfate [Plavix] 75 mg PO DAILY 01/31/19 Furosemide [Lasix] 20 mg PO QODAY 01/31/19 Isosorbide Mononitrate [Isosorbide 30 mg PO DAILY 01/31/19 Mononitrate ER] Loratadine [Claritin] 10 mg PO DAILY 01/31/19 Losartan Potassium 50 mg PO DAILY 01/31/19 Melatonin 5 mg PO QHS 01/31/19 Omeprazole [Prilosec] 20 mg PO DAILY 01/31/19 Oxybutynin Chloride [Oxybutynin 10 mg PO DAILY 01/31/19 Chloride ER] Potassium Chloride [K-Dur] 20 meq PO BID 01/31/19 Ciprofloxacin [Cipro] 500 mg PO BID 02/03/19 Surgical History: appendectomy, hysterectomy, - - Craniotomy s/p trauma. 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 Lives: With Family Smoking Status: Never smoker Tobacco Use: Non-smoker Alcohol: None Drugs: None - *Family History Maternal History Items: Cancer, Diabetes, Stroke - Stroke and aneurysm in mother Paternal History Items: Cancer, Diabetes, No pertinent history Sibling History Items: Cancer, Diabetes Review of Systems Constitutional: Denies: Chills, Fever, Weight Change HEENT: Denies: Head Aches, Sinus Congestion, Sinus Drainage Cardiovascular: Denies: Chest Pain, Palpitations Respiratory: Denies: Cough, Shortness of breath at rest, Sputum production Gastrointestinal: Denies: Abdominal Pain, Nausea, Vomiting Genitourinary: Denies: Dysuria Musculoskeletal: Denies: Joint Pain, Joint Tenderness Skin: Denies: Rash, Wounds Neurological: Denies: Numbness, Tingling, Focal weakness Psychiatric: Denies: Anxiety, Depression, Homicidal Ideations, Suicidal Ideations Hematologic/ Lymphatic: Denies: Easy Bruising, Easy Bleeding VTE Information - Inpt Only VTE Present on Admission: No VTE Mechan Device Prophylaxis: Knee High SESAR Hose VTE Pharm Prophylaxis ordered?: Yes Patient Problems: Active and Suspected Problems Fall (Acute) Encephalopathy (Acute) Hallucinations (Acute) Urinary tract infection (Acute) - Physical Exam General: Alert, Oriented x3, Cooperative HEENT: Atraumatic, PERRLA, EOMI, Normocephalic Neck: Supple, No JVD, Negative Carotid Bruits Lungs: Clear to auscultation, Normal air movement Cardiovascular: Regular rate, No murmurs Abdomen: Bowel Sounds Present, Soft, Non Tender Extremities: No edema, Capillary Refill Less than 3 Seconds Skin: No rashes, No breakdown Musculoskeletal: No Tenderness to Palpation of Joints or Extremities Neurological: Cranial nerves II-XII grossly intact Psych/Mental Status: Normal Affect, Appropriate Vital Signs Temp Pulse Resp BP Pulse Ox 98.3 F 74 18 153/81 H 96 02/03/19 17:28 02/03/19 17:28 02/03/19 17:28 02/03/19 17:28 02/03/19 17:28 Oxygen Delivery Method Room Air Weight: 80.286 kg Body Mass Index (BMI) 28.5 Finger Stick Blood Glucose 111 Assessment/Plan All Active Problems Acute cystitis (Acute) Hypokalemia (Acute) Fall (Acute) Encephalopathy (Acute) Hallucinations (Acute) Urinary tract infection (Acute) Shortness of breath (Acute) Lethargy (Acute) Decreased level of consciousness (Acute) Left hip pain (Acute) S/P ORIF (open reduction internal fixation) fracture (Resolved) Acute ischemic stroke (Acute) 83 year old female with below past medical history hospitalized for E. Coli urinary tract infection, complicated by encephalopathy, admitted to TCU with debility, here for rehabilitation, strengthening, prior to discharge home with family. * Debility - PT/OT. * Dysarthria - ST. * Pain - Tylenol 1000MG Q6H PRN mild pain. * Bowel - Miralax 17GM daily, Senna/colace 1 tablet BID, Dulcolax 10MG daily PRN. * Pneumonia vaccination - Administer Prevnar 13 and/or Pneumovax 23 as necessary. * DVT prophylaxis - Lovenox 40MG SC daily. * Coronary Artery Disease - Atenolol 50MG daily, Losartan 50MG daily Imdur 30MG daily. * Hyperlipidemia - Atorvastatin 10MG QHS. * E. Coli UTI - Cipro 500MG BID thru 02/06/2019. * Stroke - Plavix 75MG daily. * Nutrition - Ensure Enlive 120ML 4x/day. * Edema - Lasix 20MG every other day. * Allergic Rhinitis - Loratadine 10MG daily. * Insomnia - Melatonin 5MG QHS. * GERD - Pantoprazole 20MG daily. * Hypokalemia - K-Dur 20MEQ BID. * Overactive bladder - Tolterodine 2MG daily.
--- NOTE | 2019-02-03 19:50 | RAD_ITS ---
STUDY: X-RAY - ABDOMEN/PELVIS REASON FOR EXAM: Female, 83 years old. Abdominal pain. TECHNIQUE: 3 AP images of the abdomen. COMPARISON: None. FINDINGS: Normal visualized lung bases. There is a moderate amount of gas throughout the stomach, small bowel and colon. Normal soft tissue structures. There is an intramedullary edilberto within the left proximal femur associated with a screw traversing the left femoral neck. RAD/Abdomen Single View IMPRESSION: Moderate amount of bowel gas. Electronically Signed: Zaina Cabrera MD at 20:39 EDT Tel , Service support ,
[2019-02-03 20:53] VITALS: PULSE 73; O2SAT 97
[2019-02-03] MEDS: Magnesium Citrate 300 ML PO (21:14)
[2019-02-03] MEDS: MELATONIN 10 MG TABLET 5 MG PO (21:16)
[2019-02-03] MEDS: Atorvastatin Calcium 10 MG Tablet PO (21:16)
[2019-02-04] MEDS: Loratadine 10 MG Tablet PO (06:32)
[2019-02-04] MEDS: Atenolol 50 MG Tablet PO (06:32)
[2019-02-04] MEDS: Clopidogrel Bisulfate 75 MG Tablet PO (06:32)
[2019-02-04] MEDS: Losartan Potassium 50 MG Tablet PO (06:32)
[2019-02-04] MEDS: Pantoprazole Sodium 20 MG Tablet PO (06:32)
[2019-02-04] MEDS: Isosorbide Mononitrate 30 MG Tablet PO (06:32)
[2019-02-04] MEDS: Ciprofloxacin 500 MG Tablet PO ×2 (06:32→17:49)
[2019-02-04] MEDS: Tolterodine Tartrate 2 MG CAP.SA PO (06:32)
[2019-02-04] MEDS: Menthol/Lanolin/Calamine/Znox 113 GM Tube 1 APPLIC TOPICAL ×2 (06:34→20:43)
[2019-02-04] MEDS: Nystatin Powder 15gm Bottle 1 APPLIC TOPICAL ×2 (06:34→20:43)
[2019-02-04] MEDS: Enoxaparin 40 MG/0.4 ML Syringe SC (07:02)
[2019-02-04 07:04] LABS: Absolute Lymphocyte Count 2.65 X10^3/ul (0.83-4.51); Absolute Neutrophil Count 4.2 X10^3/uL (2.0-7.7); Basophil# 0.24 X10^3/uL; Basophil% 2.3 % (0-1); Differential Indicated SCAN CRITERIA MET; Eosinophil# 1.99 X10^3/uL; Eosinophils% 19.2 % (0-5); Hemoglobin 11.6 g/dl (12.0-15.0); Lymphocyte # 2.65 X10^3/ul (4.0); Lymphocyte % 25.5 % (19-41); Mean Corp Hgb Conc 32.2 g/gl (32-36); Mean Corpuscular Hgb 29.6 pg (27.0-32.0); Mean Corpuscular Volume 91.8 fL (81-99); Mean Platelet Vol. 10.3 fl (6.2-12.0); Monocyte# 1.28 X10^3/uL; Monocyte% 12.3 % (0-10); Neutrophil # 4.18 X10^3/uL (2.7-7.7); Neutrophil % 40.3 % (47-70); POSITIVE COUNT NO; POSITIVE DIFFERENTIAL NO; POSITIVE MORPHOLOGY YES; Platelet Count 254 K/mm3 (150-450); RBC Distribution Width CV 13.5 % (11.6-14.6); RBC Distribution Width SD 44.6 fl (35.1-43.9); Red Blood Count 3.92 M/mm3 (4.2-5.4); White Blood Count 10.4 K/mm3 (4.4-11.0)
[2019-02-04 08:00] LABS: BUN 20 mg/dL (7-18); Creatinine, Serum 0.68 mg/dL (0.55-1.02); Glucose 93 mg/dL (74-106)
[2019-02-04 08:01] LABS: Anion Gap 6 (5-15); BUN/Creat Ratio 29.5 RATIO (10-20); Calcium,Total 8.8 mg/dL (8.5-10.1); Chloride 107 mmol/L (98-107); EST Glomerular Filtration Rate 89 mL/min (>60); Est Glom Filt Rate - Afr Amer 107 mL/min (>60); Potassium 3.7 mmol/L (3.5-5.1); Sodium Level 141 mmol/L (136-145)
[2019-02-04 10:00] VITALS: PULSE 80; RESP 16; O2SAT 96
[2019-02-04] MEDS: Tuberculin,Purif.prot.deriv. 50 TU/ML Vial 5 ML ID (11:26)
[2019-02-04 15:56] VITALS: BP 142/73; PULSE 77; RESP 14; TEMP 36.2; O2SAT 96
[2019-02-04] MEDS: MELATONIN 10 MG TABLET 5 MG PO (20:42)
[2019-02-04] MEDS: Atorvastatin Calcium 10 MG Tablet PO (20:42)
[2019-02-05] MEDS: Enoxaparin 40 MG/0.4 ML Syringe SC (05:11)
[2019-02-05] MEDS: Senna/Docusate Sodium 1 Tablet PO ×2 (05:19→18:04)
[2019-02-05] MEDS: Ciprofloxacin 500 MG Tablet PO ×2 (05:19→18:03)
[2019-02-05] MEDS: Loratadine 10 MG Tablet PO (05:19)
[2019-02-05] MEDS: Losartan Potassium 50 MG Tablet PO (05:19)
[2019-02-05] MEDS: Pantoprazole Sodium 20 MG Tablet PO (05:19)
[2019-02-05] MEDS: Atenolol 50 MG Tablet PO (05:19)
[2019-02-05] MEDS: Isosorbide Mononitrate 30 MG Tablet PO (05:19)
[2019-02-05] MEDS: Clopidogrel Bisulfate 75 MG Tablet PO (05:19)
[2019-02-05] MEDS: Tolterodine Tartrate 2 MG CAP.SA PO (05:19)
[2019-02-05] MEDS: Furosemide 20 MG Tablet PO (05:20)
[2019-02-05] MEDS: Menthol/Lanolin/Calamine/Znox 113 GM Tube 1 APPLIC TOPICAL ×2 (05:22→20:25)
[2019-02-05] MEDS: Polyethylene Glycol 3350 17 GM PACKET PO (05:23)
[2019-02-05] MEDS: Nystatin Powder 15gm Bottle 1 APPLIC TOPICAL ×2 (05:23→20:20)
[2019-02-05] MEDS: Acetaminophen 500 MG Tablet 1000 MG PO ×2 (11:27→18:02)
[2019-02-05 15:39] VITALS: BP 149/67; PULSE 73; RESP 16; TEMP 36.8; O2SAT 96
--- NOTE | 2019-02-05 17:29 | PCM.PN.RX ---
<Eusebio Mauricio Zack - Last Filed: 02/05/19 17:29> Progress Note - Pharmacy Subjective: TCU Admission Objective: Allergies adhesive Allergy (Verified 01/31/19 00:03) Unknown adhesive tape amitriptyline Allergy (Verified 01/31/19 00:03) Unknown codeine Allergy (Verified 01/31/19 00:03) Unknown hydrocodone bitartrate [From Vicodin] Allergy (Verified 01/31/19 00:03) Hives Iodinated Contrast- Oral and IV Dye [Iodinated Contrast Media - IV Dye] Allergy (Verified 01/31/19 00:03) Unknown naproxen Allergy (Verified 01/31/19 00:03) Unknown Penicillins Allergy (Verified 01/31/19 00:03) Rash phenytoin sodium [From Dilantin] Allergy (Verified 01/31/19 00:03) Unknown phenytoin sodium extended [From Dilantin] Allergy (Verified 01/31/19 00:03) Unknown silicone Allergy (Verified 01/31/19 00:03) Unknown Current Medications Generic Name Dose Route Start Last Admin Trade Name Freq PRN Reason Stop Dose Admin Acetaminophen 1,000 mg 02/03/19 19:50 02/05/19 11:27 Tylenol PO 1,000 mg Q6H PRN Administration MILD PAIN (1-3/10) Atenolol 50 mg 02/04/19 06:00 02/05/19 05:19 Tenormin (Beta Mckenzie) PO 50 mg DAILY [facility] Administration Atorvastatin Calcium 10 mg 02/03/19 22:00 02/04/19 20:42 Lipitor PO 10 mg QHS [facility] Administration Bisacodyl 10 mg 02/03/19 19:51 Dulcolax PO DAILY PRN Constipation Calamine/Phenol 1 applic 02/04/19 06:00 02/05/19 05:22 Calmoseptine Ointment TOPICAL 1 applicatio 0600,2200 [facility] Administration Protocol Ciprofloxacin HCl 500 mg 02/03/19 18:00 02/05/19 05:19 Cipro PO 02/06/19 06:01 500 mg BID JENN[facility]ER Administration Clopidogrel Bisulfate 75 mg 02/04/19 06:00 02/05/19 05:19 Plavix PO 75 mg DAILY [facility] Administration Enoxaparin Sodium 40 mg 02/04/19 06:00 02/05/19 05:11 Lovenox SC 40 mg DAILY@0600 [facility] Administration Furosemide 20 mg 02/05/19 06:00 02/05/19 05:20 Lasix PO 20 mg QODAY@0600 [facility] Administration Isosorbide Mononitrate 30 mg 02/04/19 06:00 02/05/19 05:19 Imdur PO 30 mg DAILY [facility] Administration Loratadine 10 mg 02/04/19 06:00 02/05/19 05:19 Claritin PO 10 mg DAILY [facility] Administration Losartan Potassium 50 mg 02/04/19 06:00 02/05/19 05:19 Cozaar PO 50 mg DAILY [facility] Administration Melatonin 5 mg 02/03/19 22:00 02/04/19 20:42 Melatonin PO 5 mg QHS [facility] Administration Multi-Ingredient Cream 1 applic 02/04/19 06:00 02/05/19 05:22 Eucerin TOPICAL 1 applicatio 0600,2200 [facility] Administration Protocol Nutritional Formula (Lactose Free) 120 ml 02/03/19 22:00 02/05/19 11:27 Ensure Enlive PO 120 ml 4X/DAY [facility] Administration Nystatin 1 applic 02/04/19 06:00 02/05/19 05:23 Mycostatin Powder TOPICAL 1 applicatio 0600,2200 [facility] Administration Protocol Pantoprazole Sodium 20 mg 02/04/19 06:00 02/05/19 05:19 Protonix PO 20 mg DAILY [facility] Administration Polyethylene Glycol 17 gm 02/04/19 06:00 02/05/19 05:23 Miralax PO 17 gm DAILY [facility] Administration Potassium Chloride 20 meq 02/04/19 08:00 02/05/19 08:37 K-Dur PO 20 meq BIDCM [facility] Administration Senna/Docusate Sodium 1 tablet 02/04/19 06:00 02/05/19 05:19 Senokot-S, Denisa-Colace PO 1 tablet BID [facility] Administration Tolterodine Tartrate 2 mg 02/04/19 06:00 02/05/19 05:19 Detrol La PO 2 mg DAILY [facility] Administration Tuberculin PPD 5 tu 02/11/19 10:00 Tubersol, Aplisol, Ppd ID 02/11/19 10:01 X1 ONE Problem List Fall (Acute) Encephalopathy (Acute) Intellectual disability (Chronic) Hallucinations (Acute) Urinary tract infection (Acute) Hypertension (Chronic) Stroke (Chronic) Edema (Chronic) Overactive bladder (Chronic) Allergic rhinitis (Chronic) Vitamin D deficiency (Chronic) Insomnia (Chronic) Asthma (Chronic) Vital Signs Temp Pulse Resp BP Pulse Ox 98.2 F 73 16 149/67 H 96 02/05/19 15:39 02/05/19 15:39 02/05/19 15:39 02/05/19 15:39 02/05/19 15:39 Oxygen Delivery Method Room Air Weight: 80.286 kg Body Mass Index (BMI) 28.5 Finger Stick Blood Glucose 111 Sodium 141 mmol/L (136-145) 02/04/19 06:15 Potassium 3.7 mmol/L (3.5-5.1) 02/04/19 06:15 Chloride 107 mmol/L (98-107) 02/04/19 06:15 Carbon Dioxide 28.0 mmol/L (21.0-32.0) 02/04/19 06:15 Anion Gap 6 (5-15) 02/04/19 06:15 BUN 20 mg/dL (7-18) H 02/04/19 06:15 Creatinine 0.68 mg/dL (0.55-1.02) 02/04/19 06:15 Est GFR (MDRD) Af Amer 107 mL/min (>60) 02/04/19 06:15 Est GFR (MDRD) Non-Af 89 mL/min (>60) 02/04/19 06:15 BUN/Creatinine Ratio 29.5 RATIO (10-20) H 02/04/19 06:15 Glucose 93 mg/dL (74-106) 02/04/19 06:15 Assessment/Plan: 1) Pain APAP for mild pain. Continue to monitor prn medication use, daily pain scores. 2) CAD Atenolol, isosorbide, losartan. Continue to monitor BP/HR, for chest pain. 3) Edema Furosemide/KCL. Continue to monitor BP/HR, swelling, electrolytes. 4) Stroke Atorvastatin, clopidogrel. Continue to monitor s/s stroke. 5) UTI Ciprofloxacin for UTI. Continue to monitor renal function, s/s infection. 6) DVT PPx Enoxaparin daily. Continue to monitor for bleeding/clot. 7) Tolterodine daily. Continue to monitor for symptoms. 8) GI Pantoprazole daily. Continue to monitor for GI distress. 9) Sleep Melatonin at HS. Continue to monitor for insomnia. Psychotropic Medications: None Unnecessary Medications: None Bowel Regimen: 10) Senna/s, PEG, prn bisacodyl. Continue to monitor prn medication use, for constipation/diarrhea. Date of Note:: 02/05/19 - Provider Comments Provider responsibility: Provider responsible to enter orders to implement recommendations <Tian Alexander Chi - Last Filed: 02/06/19 08:07> Progress Note - Pharmacy Subjective: [] Objective: Allergies adhesive Allergy (Verified 01/31/19 00:03) Unknown adhesive tape amitriptyline Allergy (Verified 01/31/19 00:03) Unknown codeine Allergy (Verified 01/31/19 00:03) Unknown hydrocodone bitartrate [From Vicodin] Allergy (Verified 01/31/19 00:03) Hives Iodinated Contrast- Oral and IV Dye [Iodinated Contrast Media - IV Dye] Allergy (Verified 01/31/19 00:03) Unknown naproxen Allergy (Verified 01/31/19 00:03) Unknown Penicillins Allergy (Verified 01/31/19 00:03) Rash phenytoin sodium [From Dilantin] Allergy (Verified 01/31/19 00:03) Unknown phenytoin sodium extended [From Dilantin] Allergy (Verified 01/31/19 00:03) Unknown silicone Allergy (Verified 01/31/19 00:03) Unknown Current Medications Generic Name Dose Route Start Last Admin Trade Name Freq PRN Reason Stop Dose Admin Acetaminophen 1,000 mg 02/03/19 19:50 02/05/19 18:02 Tylenol PO 1,000 mg Q6H PRN Administration MILD PAIN (1-3/10) Atenolol 50 mg 02/04/19 06:00 02/06/19 06:17 Tenormin (Beta Mckenzie) PO 50 mg DAILY JENN[facility]ER Administration Atorvastatin Calcium 10 mg 02/03/19 22:00 02/05/19 20:23 Lipitor PO 10 mg QHS JENN[facility]ER Administration Bisacodyl 10 mg 02/03/19 19:51 Dulcolax PO DAILY PRN Constipation Calamine/Phenol 1 applic 02/04/19 06:00 02/06/19 06:18 Calmoseptine Ointment TOPICAL 1 applicatio 0600,2200 JENN[facility]ER Administration Protocol Clopidogrel Bisulfate 75 mg 02/04/19 06:00 02/06/19 06:17 Plavix PO 75 mg DAILY JENN[facility]ER Administration Enoxaparin Sodium 40 mg 02/04/19 06:00 02/06/19 06:16 Lovenox SC 40 mg DAILY@0600 JENN[facility]ER Administration Furosemide 20 mg 02/05/19 06:00 02/05/19 05:20 Lasix PO 20 mg QODAY@0600 JENN[facility]ER Administration Isosorbide Mononitrate 30 mg 02/04/19 06:00 02/06/19 06:17 Imdur PO 30 mg DAILY JENN[facility]ER Administration Loratadine 10 mg 02/04/19 06:00 02/06/19 06:17 Claritin PO 10 mg DAILY JENN[facility]ER Administration Losartan Potassium 50 mg 02/04/19 06:00 02/06/19 06:17 Cozaar PO 50 mg DAILY J[facility] Administration Melatonin 5 mg 02/03/19 22:00 02/05/19 20:21 Melatonin PO 5 mg QHS JENN[facility]ER Administration Multi-Ingredient Cream 1 applic 02/04/19 06:00 02/06/19 06:18 Eucerin TOPICAL 1 applicatio 06,2200 [facility] Administration Protocol Nutritional Formula (Lactose Free) 120 ml 02/03/19 22:00 02/06/19 06:18 Ensure Enlive PO Not Given 4X/DAY [facility] Nystatin 1 applic 02/04/19 06:00 02/06/19 06:19 Mycostatin Powder TOPICAL 1 applicatio 0600,2200 [facility] Administration Protocol Pantoprazole Sodium 20 mg 02/04/19 06:00 02/06/19 06:17 Protonix PO 20 mg DAILY JENN[facility]ER Administration Polyethylene Glycol 17 gm 02/04/19 06:00 02/06/19 06:19 Miralax PO Not Given DAILY [facility] Potassium Chloride 20 meq 02/04/19 08:00 02/06/19 07:53 K-Dur PO 20 meq BIDCM [facility] Administration Senna/Docusate Sodium 1 tablet 02/04/19 06:00 02/06/19 06:17 Senokot-S, Denisa-Colace PO 1 tablet BID JENN[facility]ER Administration Tolterodine Tartrate 2 mg 02/04/19 06:00 02/06/19 06:17 Detrol La PO 2 mg DAILY [facility] Administration Tuberculin PPD 5 tu 02/11/19 10:00 Tubersol, Aplisol, Ppd ID 02/11/19 10:01 X1 ONE Problem List Fall (Acute) Encephalopathy (Acute) Intellectual disability (Chronic) Hallucinations (Acute) Urinary tract infection (Acute) Hypertension (Chronic) Stroke (Chronic) Edema (Chronic) Overactive bladder (Chronic) Allergic rhinitis (Chronic) Vitamin D deficiency (Chronic) Insomnia (Chronic) Asthma (Chronic) Vital Signs Temp Pulse Resp BP Pulse Ox 98.2 F 76 16 157/67 H 96 02/05/19 15:39 02/06/19 06:19 02/06/19 06:19 02/06/19 06:19 02/05/19 15:39 Oxygen Delivery Method Room Air Weight: 80.286 kg Body Mass Index (BMI) 28.5 Finger Stick Blood Glucose 111 Sodium 141 mmol/L (136-145) 02/04/19 06:15 Potassium 3.7 mmol/L (3.5-5.1) 02/04/19 06:15 Chloride 107 mmol/L (98-107) 02/04/19 06:15 Carbon Dioxide 28.0 mmol/L (21.0-32.0) 02/04/19 06:15 Anion Gap 6 (5-15) 02/04/19 06:15 BUN 20 mg/dL (7-18) H 02/04/19 06:15 Creatinine 0.68 mg/dL (0.55-1.02) 02/04/19 06:15 Est GFR (MDRD) Af Amer 107 mL/min (>60) 02/04/19 06:15 Est GFR (MDRD) Non-Af 89 mL/min (>60) 02/04/19 06:15 BUN/Creatinine Ratio 29.5 RATIO (10-20) H 02/04/19 06:15 Glucose 93 mg/dL (74-106) 02/04/19 06:15 Assessment/Plan: Psychotropic Medications: Unnecessary Medications: Bowel Regimen: - Provider Comments Provider responsibility: Provider responsible to enter orders to implement recommendations Provider Comments to Recommendations by Pharmacy: Agree
--- NOTE | 2019-02-05 17:34 | PHA.CONS_ITS ---
<Eusebio Mauricio Zack - Last Filed: 02/05/19 17:29> Progress Note - Pharmacy Subjective: TCU Admission Objective: Allergies adhesive Allergy (Verified 01/31/19 00:03) Unknown adhesive tape amitriptyline Allergy (Verified 01/31/19 00:03) Unknown codeine Allergy (Verified 01/31/19 00:03) Unknown hydrocodone bitartrate [From Vicodin] Allergy (Verified 01/31/19 00:03) Hives Iodinated Contrast- Oral and IV Dye [Iodinated Contrast Media - IV Dye] Allergy (Verified 01/31/19 00:03) Unknown naproxen Allergy (Verified 01/31/19 00:03) Unknown Penicillins Allergy (Verified 01/31/19 00:03) Rash phenytoin sodium [From Dilantin] Allergy (Verified 01/31/19 00:03) Unknown phenytoin sodium extended [From Dilantin] Allergy (Verified 01/31/19 00:03) Unknown silicone Allergy (Verified 01/31/19 00:03) Unknown Current Medications Generic Name Dose Route Start Last Admin Trade Name Freq PRN Reason Stop Dose Admin Acetaminophen 1,000 mg 02/03/19 19:50 02/05/19 11:27 Tylenol PO 1,000 mg Q6H PRN Administration MILD PAIN (1-3/10) Atenolol 50 mg 02/04/19 06:00 02/05/19 05:19 Tenormin (Beta Mckenzie) PO 50 mg DAILY JENNIFER Administration Atorvastatin Calcium 10 mg 02/03/19 22:00 02/04/19 20:42 Lipitor PO 10 mg QHS JENN[facility]ER Administration Bisacodyl 10 mg 02/03/19 19:51 Dulcolax PO DAILY PRN Constipation Calamine/Phenol 1 applic 02/04/19 06:00 02/05/19 05:22 Calmoseptine Ointment TOPICAL 1 applicatio 0600,2200 JENN[facility]ER Administration Protocol Ciprofloxacin HCl 500 mg 02/03/19 18:00 02/05/19 05:19 Cipro PO 02/06/19 06:01 500 mg BID JENNIFER Administration Clopidogrel Bisulfate 75 mg 02/04/19 06:00 02/05/19 05:19 Plavix PO 75 mg DAILY JENN[facility]ER Administration Enoxaparin Sodium 40 mg 02/04/19 06:00 02/05/19 05:11 Lovenox SC 40 mg DAILY@0600 JENN[facility]ER Administration Furosemide 20 mg 02/05/19 06:00 02/05/19 05:20 Lasix PO 20 mg QODAY@0600 JENN[facility]ER Administration Isosorbide Mononitrate 30 mg 02/04/19 06:00 02/05/19 05:19 Imdur PO 30 mg DAILY JENN[facility]ER Administration Loratadine 10 mg 02/04/19 06:00 02/05/19 05:19 Claritin PO 10 mg DAILY JENN[facility]ER Administration Losartan Potassium 50 mg 02/04/19 06:00 02/05/19 05:19 Cozaar PO 50 mg DAILY JENN[facility]ER Administration Melatonin 5 mg 02/03/19 22:00 02/04/19 20:42 Melatonin PO 5 mg QHS JENNIFER Administration Multi-Ingredient Cream 1 applic 02/04/19 06:00 02/05/19 05:22 Eucerin TOPICAL 1 applicatio 0600,2200 JENN[facility] Administration Protocol Nutritional Formula (Lactose Free) 120 ml 02/03/19 22:00 02/05/19 11:27 Ensure Enlive PO 120 ml 4X/DAY JENN[facility]ER Administration Nystatin 1 applic 02/04/19 06:00 02/05/19 05:23 Mycostatin Powder TOPICAL 1 applicatio 0600,2200 JENN[facility]ER Administration Protocol Pantoprazole Sodium 20 mg 02/04/19 06:00 02/05/19 05:19 Protonix PO 20 mg DAILY JENN[facility]ER Administration Polyethylene Glycol 17 gm 02/04/19 06:00 02/05/19 05:23 Miralax PO 17 gm DAILY JENN[facility]ER Administration Potassium Chloride 20 meq 02/04/19 08:00 02/05/19 08:37 K-Dur PO 20 meq BIDCM [facility]ENN[facility] Administration Senna/Docusate Sodium 1 tablet 02/04/19 06:00 02/05/19 05:19 Senokot-S, Denisa-Colace PO 1 tablet BID JENN[facility]ER Administration Tolterodine Tartrate 2 mg 02/04/19 06:00 02/05/19 05:19 Detrol La PO 2 mg DAILY JENN[facility]ER Administration Tuberculin PPD 5 tu 02/11/19 10:00 Tubersol, Aplisol, Ppd ID 02/11/19 10:01 X1 ONE Problem List Fall (Acute) Encephalopathy (Acute) Intellectual disability (Chronic) Hallucinations (Acute) Urinary tract infection (Acute) Hypertension (Chronic) Stroke (Chronic) Edema (Chronic) Overactive bladder (Chronic) Allergic rhinitis (Chronic) Vitamin D deficiency (Chronic) Insomnia (Chronic) Asthma (Chronic) Vital Signs Temp Pulse Resp BP Pulse Ox 98.2 F 73 16 149/67 H 96 02/05/19 15:39 02/05/19 15:39 02/05/19 15:39 02/05/19 15:39 02/05/19 15:39 Oxygen Delivery Method Room Air Weight: 80.286 kg Body Mass Index (BMI) 28.5 Finger Stick Blood Glucose 111 Sodium 141 mmol/L (136-145) 02/04/19 06:15 Potassium 3.7 mmol/L (3.5-5.1) 02/04/19 06:15 Chloride 107 mmol/L (98-107) 02/04/19 06:15 Carbon Dioxide 28.0 mmol/L (21.0-32.0) 02/04/19 06:15 Anion Gap 6 (5-15) 02/04/19 06:15 BUN 20 mg/dL (7-18) H 02/04/19 06:15 Creatinine 0.68 mg/dL (0.55-1.02) 02/04/19 06:15 Est GFR (MDRD) Af Amer 107 mL/min (>60) 02/04/19 06:15 Est GFR (MDRD) Non-Af 89 mL/min (>60) 02/04/19 06:15 BUN/Creatinine Ratio 29.5 RATIO (10-20) H 02/04/19 06:15 Glucose 93 mg/dL (74-106) 02/04/19 06:15 Assessment/Plan: 1) Pain APAP for mild pain. Continue to monitor prn medication use, daily pain scores. 2) CAD Atenolol, isosorbide, losartan. Continue to monitor BP/HR, for chest pain. 3) Edema Furosemide/KCL. Continue to monitor BP/HR, swelling, electrolytes. 4) Stroke Atorvastatin, clopidogrel. Continue to monitor s/s stroke. 5) UTI Ciprofloxacin for UTI. Continue to monitor renal function, s/s infection. 6) DVT PPx Enoxaparin daily. Continue to monitor for bleeding/clot. 7) Tolterodine daily. Continue to monitor for symptoms. 8) GI Pantoprazole daily. Continue to monitor for GI distress. 9) Sleep Melatonin at HS. Continue to monitor for insomnia. Psychotropic Medications: None Unnecessary Medications: None Bowel Regimen: 10) Senna/s, PEG, prn bisacodyl. Continue to monitor prn medication use, for constipation/diarrhea. Date of Note:: 02/05/19 - Provider Comments Provider responsibility: Provider responsible to enter orders to implement recommendations <Tian Alexander Chi - Last Filed: 02/06/19 08:07> Progress Note - Pharmacy Subjective: [] Objective: Allergies adhesive Allergy (Verified 01/31/19 00:03) Unknown adhesive tape amitriptyline Allergy (Verified 01/31/19 00:03) Unknown codeine Allergy (Verified 01/31/19 00:03) Unknown hydrocodone bitartrate [From Vicodin] Allergy (Verified 01/31/19 00:03) Hives Iodinated Contrast- Oral and IV Dye [Iodinated Contrast Media - IV Dye] Allergy (Verified 01/31/19 00:03) Unknown naproxen Allergy (Verified 01/31/19 00:03) Unknown Penicillins Allergy (Verified 01/31/19 00:03) Rash phenytoin sodium [From Dilantin] Allergy (Verified 01/31/19 00:03) Unknown phenytoin sodium extended [From Dilantin] Allergy (Verified 01/31/19 00:03) Unknown silicone Allergy (Verified 01/31/19 00:03) Unknown Current Medications Generic Name Dose Route Start Last Admin Trade Name Freq PRN Reason Stop Dose Admin Acetaminophen 1,000 mg 02/03/19 19:50 02/05/19 18:02 Tylenol PO 1,000 mg Q6H PRN Administration MILD PAIN (1-3/10) Atenolol 50 mg 02/04/19 06:00 02/06/19 06:17 Tenormin (Beta Mckenzie) PO 50 mg DAILY [facility] Administration Atorvastatin Calcium 10 mg 02/03/19 22:00 02/05/19 20:23 Lipitor PO 10 mg QHS [facility] Administration Bisacodyl 10 mg 02/03/19 19:51 Dulcolax PO DAILY PRN Constipation Calamine/Phenol 1 applic 02/04/19 06:00 02/06/19 06:18 Calmoseptine Ointment TOPICAL 1 applicatio 0600,2200 [facility] Administration Protocol Clopidogrel Bisulfate 75 mg 02/04/19 06:00 02/06/19 06:17 Plavix PO 75 mg DAILY [facility] Administration Enoxaparin Sodium 40 mg 02/04/19 06:00 02/06/19 06:16 Lovenox SC 40 mg DAILY@0600 [facility] Administration Furosemide 20 mg 02/05/19 06:00 02/05/19 05:20 Lasix PO 20 mg QODAY@0600 [facility] Administration Isosorbide Mononitrate 30 mg 02/04/19 06:00 02/06/19 06:17 Imdur PO 30 mg DAILY [facility] Administration Loratadine 10 mg 02/04/19 06:00 02/06/19 06:17 Claritin PO 10 mg DAILY [facility] Administration Losartan Potassium 50 mg 02/04/19 06:00 02/06/19 06:17 Cozaar PO 50 mg DAILY [facility] Administration Melatonin 5 mg 02/03/19 22:00 02/05/19 20:21 Melatonin PO 5 mg QHS JENN[facility] Administration Multi-Ingredient Cream 1 applic 02/04/19 06:00 02/06/19 06:18 Eucerin TOPICAL 1 applicatio 06,2200 [facility] Administration Protocol Nutritional Formula (Lactose Free) 120 ml 02/03/19 22:00 02/06/19 06:18 Ensure Enlive PO Not Given 4X/DAY [facility] Nystatin 1 applic 02/04/19 06:00 02/06/19 06:19 Mycostatin Powder TOPICAL 1 applicatio 0600,2200 [facility] Administration Protocol Pantoprazole Sodium 20 mg 02/04/19 06:00 02/06/19 06:17 Protonix PO 20 mg DAILY [facility] Administration Polyethylene Glycol 17 gm 02/04/19 06:00 02/06/19 06:19 Miralax PO Not Given DAILY [facility] Potassium Chloride 20 meq 02/04/19 08:00 02/06/19 07:53 K-Dur PO 20 meq BIDCM [facility] Administration Senna/Docusate Sodium 1 tablet 02/04/19 06:00 02/06/19 06:17 Senokot-S, Denisa-Colace PO 1 tablet BID [facility] Administration Tolterodine Tartrate 2 mg 02/04/19 06:00 02/06/19 06:17 Detrol La PO 2 mg DAILY [facility] Administration Tuberculin PPD 5 tu 02/11/19 10:00 Tubersol, Aplisol, Ppd ID 02/11/19 10:01 X1 ONE Problem List Fall (Acute) Encephalopathy (Acute) Intellectual disability (Chronic) Hallucinations (Acute) Urinary tract infection (Acute) Hypertension (Chronic) Stroke (Chronic) Edema (Chronic) Overactive bladder (Chronic) Allergic rhinitis (Chronic) Vitamin D deficiency (Chronic) Insomnia (Chronic) Asthma (Chronic) Vital Signs Temp Pulse Resp BP Pulse Ox 98.2 F 76 16 157/67 H 96 02/05/19 15:39 02/06/19 06:19 02/06/19 06:19 02/06/19 06:19 02/05/19 15:39 Oxygen Delivery Method Room Air Weight: 80.286 kg Body Mass Index (BMI) 28.5 Finger Stick Blood Glucose 111 Sodium 141 mmol/L (136-145) 02/04/19 06:15 Potassium 3.7 mmol/L (3.5-5.1) 02/04/19 06:15 Chloride 107 mmol/L (98-107) 02/04/19 06:15 Carbon Dioxide 28.0 mmol/L (21.0-32.0) 02/04/19 06:15 Anion Gap 6 (5-15) 02/04/19 06:15 BUN 20 mg/dL (7-18) H 02/04/19 06:15 Creatinine 0.68 mg/dL (0.55-1.02) 02/04/19 06:15 Est GFR (MDRD) Af Amer 107 mL/min (>60) 02/04/19 06:15 Est GFR (MDRD) Non-Af 89 mL/min (>60) 02/04/19 06:15 BUN/Creatinine Ratio 29.5 RATIO (10-20) H 02/04/19 06:15 Glucose 93 mg/dL (74-106) 02/04/19 06:15 Assessment/Plan: Psychotropic Medications: Unnecessary Medications: Bowel Regimen: - Provider Comments Provider responsibility: Provider responsible to enter orders to implement recommendations Provider Comments to Recommendations by Pharmacy: Agree
[2019-02-05] MEDS: MELATONIN 10 MG TABLET 5 MG PO (20:21)
[2019-02-05] MEDS: Atorvastatin Calcium 10 MG Tablet PO (20:23)
[2019-02-06] MEDS: Enoxaparin 40 MG/0.4 ML Syringe SC (06:16)
[2019-02-06] MEDS: Isosorbide Mononitrate 30 MG Tablet PO (06:17)
[2019-02-06] MEDS: Senna/Docusate Sodium 1 Tablet PO ×2 (06:17→16:45)
[2019-02-06] MEDS: Ciprofloxacin 500 MG Tablet PO (06:17)
[2019-02-06] MEDS: Losartan Potassium 50 MG Tablet PO (06:17)
[2019-02-06] MEDS: Pantoprazole Sodium 20 MG Tablet PO (06:17)
[2019-02-06] MEDS: Loratadine 10 MG Tablet PO (06:17)
[2019-02-06] MEDS: Tolterodine Tartrate 2 MG CAP.SA PO (06:17)
[2019-02-06] MEDS: Clopidogrel Bisulfate 75 MG Tablet PO (06:17)
[2019-02-06] MEDS: Atenolol 50 MG Tablet PO (06:17)
[2019-02-06] MEDS: Menthol/Lanolin/Calamine/Znox 113 GM Tube 1 APPLIC TOPICAL ×2 (06:18→21:54)
[2019-02-06 06:19] VITALS: BP 157/67; PULSE 76; RESP 16
[2019-02-06] MEDS: Nystatin Powder 15gm Bottle 1 APPLIC TOPICAL ×2 (06:19→21:58)
[2019-02-06] MEDS: Acetaminophen 500 MG Tablet 1000 MG PO (13:43)
[2019-02-06 15:15] VITALS: BP 152/64; PULSE 70; RESP 16; TEMP 37.2; O2SAT 98
[2019-02-06 21:55] VITALS: PULSE 82; RESP 16; O2SAT 97
[2019-02-06] MEDS: Atorvastatin Calcium 10 MG Tablet PO (21:55)
[2019-02-06] MEDS: MELATONIN 10 MG TABLET 5 MG PO (21:56)
[2019-02-07] MEDS: Furosemide 20 MG Tablet PO (05:06)
[2019-02-07] MEDS: Pantoprazole Sodium 20 MG Tablet PO (05:06)
[2019-02-07] MEDS: Enoxaparin 40 MG/0.4 ML Syringe SC (05:06)
[2019-02-07] MEDS: Atenolol 50 MG Tablet PO (05:06)
[2019-02-07] MEDS: Clopidogrel Bisulfate 75 MG Tablet PO (05:06)
[2019-02-07] MEDS: Senna/Docusate Sodium 1 Tablet PO ×2 (05:06→17:09)
[2019-02-07] MEDS: Polyethylene Glycol 3350 17 GM PACKET PO (05:06)
[2019-02-07] MEDS: Tolterodine Tartrate 2 MG CAP.SA PO (05:07)
[2019-02-07] MEDS: Isosorbide Mononitrate 30 MG Tablet PO (05:07)
[2019-02-07] MEDS: Loratadine 10 MG Tablet PO (05:07)
[2019-02-07] MEDS: Losartan Potassium 50 MG Tablet PO (05:07)
[2019-02-07] MEDS: Menthol/Lanolin/Calamine/Znox 113 GM Tube 1 APPLIC TOPICAL ×2 (05:11→20:30)
[2019-02-07] MEDS: Nystatin Powder 15gm Bottle 1 APPLIC TOPICAL ×2 (05:12→20:32)
[2019-02-07] MEDS: Acetaminophen 500 MG Tablet 1000 MG PO (09:14)
[2019-02-07 10:10] VITALS: PULSE 75; RESP 18; O2SAT 96
[2019-02-07 16:00] VITALS: BP 129/77; PULSE 71; RESP 18; TEMP 35.9; O2SAT 95
[2019-02-07] MEDS: MELATONIN 10 MG TABLET 5 MG PO (20:31)
[2019-02-07] MEDS: Atorvastatin Calcium 10 MG Tablet PO (20:31)
--- NOTE | 2019-02-07 23:59 | NURSING ---
Per pt daughter Nikia she does not want a visitor named Rc to visit pt. Daughter stating visitor gets patient all worked up. Per daughter the visitor is friends with the pts son.
[2019-02-08] MEDS: Menthol/Lanolin/Calamine/Znox 113 GM Tube 1 APPLIC TOPICAL ×2 (06:00→20:19)
[2019-02-08] MEDS: Loratadine 10 MG Tablet PO (06:02)
[2019-02-08] MEDS: Polyethylene Glycol 3350 17 GM PACKET PO (06:02)
[2019-02-08] MEDS: Isosorbide Mononitrate 30 MG Tablet PO (06:02)
[2019-02-08] MEDS: Enoxaparin 40 MG/0.4 ML Syringe SC (06:02)
[2019-02-08] MEDS: Losartan Potassium 50 MG Tablet PO (06:02)
[2019-02-08] MEDS: Clopidogrel Bisulfate 75 MG Tablet PO (06:03)
[2019-02-08] MEDS: Senna/Docusate Sodium 1 Tablet PO (06:03)
[2019-02-08] MEDS: Tolterodine Tartrate 2 MG CAP.SA PO (06:03)
[2019-02-08] MEDS: Pantoprazole Sodium 20 MG Tablet PO (06:03)
[2019-02-08] MEDS: Atenolol 50 MG Tablet PO (06:03)
[2019-02-08] MEDS: Acetaminophen 500 MG Tablet 1000 MG PO (06:10)
[2019-02-08] MEDS: Nystatin Powder 15gm Bottle 1 APPLIC TOPICAL ×2 (08:32→20:22)
--- NOTE | 2019-02-08 11:49 | CASEMGMT ---
Plan of care meeting held today with pt present. Pt is receiving PT/OT/ST and progressing with therapy. Pt is hopeful that she can return home at time of d/c. Pt lives with son and he is currently unable to provide assistance. No d/c date set at this time. SW will continue to follow for d/c planning. THOMAS Soto
[2019-02-08 15:38] VITALS: BP 136/63; PULSE 65; RESP 18; TEMP 36.4; O2SAT 95
[2019-02-08 16:45] VITALS: PULSE 75; RESP 18; O2SAT 93
--- NOTE | 2019-02-08 16:51 | NURSING ---
HELD 1800 STOOL SOFTENER DUE TO PT HAVING DIARRHEA. REPORTED TO IBRAHIMA GONZALEZ
[2019-02-08] MEDS: MELATONIN 10 MG TABLET 5 MG PO (20:21)
[2019-02-08] MEDS: Atorvastatin Calcium 10 MG Tablet PO (20:22)
[2019-02-09] MEDS: Acetaminophen 500 MG Tablet 1000 MG PO ×3 (00:22→17:21)
[2019-02-09 06:00] VITALS: PULSE 70; RESP 18; O2SAT 93
[2019-02-09] MEDS: Clopidogrel Bisulfate 75 MG Tablet PO (06:13)
[2019-02-09] MEDS: Tolterodine Tartrate 2 MG CAP.SA PO (06:13)
[2019-02-09] MEDS: Menthol/Lanolin/Calamine/Znox 113 GM Tube 1 APPLIC TOPICAL ×2 (06:13→20:34)
[2019-02-09] MEDS: Pantoprazole Sodium 20 MG Tablet PO (06:13)
[2019-02-09] MEDS: Losartan Potassium 50 MG Tablet PO (06:14)
[2019-02-09] MEDS: Loratadine 10 MG Tablet PO (06:14)
[2019-02-09] MEDS: Atenolol 50 MG Tablet PO (06:14)
[2019-02-09] MEDS: Furosemide 20 MG Tablet PO (06:15)
[2019-02-09] MEDS: Nystatin Powder 15gm Bottle 1 APPLIC TOPICAL ×2 (06:15→20:35)
[2019-02-09] MEDS: Enoxaparin 40 MG/0.4 ML Syringe SC (06:16)
[2019-02-09] MEDS: Isosorbide Mononitrate 30 MG Tablet PO (06:18)
--- NOTE | 2019-02-09 13:52 | MDS.RN ---
Pain interview for mario 01/13/19 completed.
[2019-02-09 15:15] VITALS: BP 105/69; PULSE 66; RESP 16; TEMP 35.7; O2SAT 95
[2019-02-09] MEDS: Senna/Docusate Sodium 1 Tablet PO (17:21)
[2019-02-09] MEDS: Atorvastatin Calcium 10 MG Tablet PO (20:35)
[2019-02-09] MEDS: MELATONIN 10 MG TABLET 5 MG PO (20:36)
[2019-02-10] MEDS: Acetaminophen 500 MG Tablet 1000 MG PO (01:48)
[2019-02-10] MEDS: Menthol/Lanolin/Calamine/Znox 113 GM Tube 1 APPLIC TOPICAL ×2 (04:56→20:51)
[2019-02-10] MEDS: Isosorbide Mononitrate 30 MG Tablet PO (04:57)
[2019-02-10] MEDS: Pantoprazole Sodium 20 MG Tablet PO (04:57)
[2019-02-10] MEDS: Clopidogrel Bisulfate 75 MG Tablet PO (04:57)
[2019-02-10] MEDS: Tolterodine Tartrate 2 MG CAP.SA PO (04:57)
[2019-02-10] MEDS: Losartan Potassium 50 MG Tablet PO (04:57)
[2019-02-10] MEDS: Atenolol 50 MG Tablet PO (04:57)
[2019-02-10] MEDS: Loratadine 10 MG Tablet PO (04:58)
[2019-02-10] MEDS: Nystatin Powder 15gm Bottle 1 APPLIC TOPICAL ×2 (04:58→20:52)
[2019-02-10] MEDS: Enoxaparin 40 MG/0.4 ML Syringe SC (05:01)
[2019-02-10 07:10] VITALS: PULSE 70; RESP 16; O2SAT 95
--- NOTE | 2019-02-10 13:07 | CASEMGMT ---
Addendum entered by Debo Turner 02/10/19 15:58: Review and agree with SW student documentation done this day. CARLOS EDUARDO Allen Original Note: Brief interview for mental status (BIMS) and mood (PHQ-9) completed on this day. BIMS score . PHQ-9 score 04/17. Richard Stewart social work student
[2019-02-10 16:00] VITALS: BP 162/75; PULSE 80; RESP 16; TEMP 36.7; O2SAT 95
[2019-02-10] MEDS: Atorvastatin Calcium 10 MG Tablet PO (20:55)
[2019-02-10] MEDS: MELATONIN 10 MG TABLET 5 MG PO (20:56)
[2019-02-11] MEDS: Clopidogrel Bisulfate 75 MG Tablet PO (05:26)
[2019-02-11] MEDS: Pantoprazole Sodium 20 MG Tablet PO (05:26)
[2019-02-11] MEDS: Tolterodine Tartrate 2 MG CAP.SA PO (05:26)
[2019-02-11] MEDS: Loratadine 10 MG Tablet PO (05:26)
[2019-02-11] MEDS: Isosorbide Mononitrate 30 MG Tablet PO (05:27)
[2019-02-11] MEDS: Furosemide 20 MG Tablet PO (05:27)
[2019-02-11] MEDS: Losartan Potassium 50 MG Tablet PO (05:28)
[2019-02-11] MEDS: Atenolol 50 MG Tablet PO (05:28)
[2019-02-11] MEDS: Menthol/Lanolin/Calamine/Znox 113 GM Tube 1 APPLIC TOPICAL ×2 (05:29→20:40)
[2019-02-11] MEDS: Nystatin Powder 15gm Bottle 1 APPLIC TOPICAL ×2 (05:29→20:41)
[2019-02-11] MEDS: Enoxaparin 40 MG/0.4 ML Syringe SC (05:30)
[2019-02-11 07:10] LABS: Anion Gap 8 (5-15); BUN 20 mg/dL (7-18); BUN/Creat Ratio 28.1 RATIO (10-20); Calcium,Total 8.8 mg/dL (8.5-10.1); Chloride 107 mmol/L (98-107); Creatinine, Serum 0.71 mg/dL (0.55-1.02); EST Glomerular Filtration Rate 84 mL/min (>60); Est Glom Filt Rate - Afr Amer 101 mL/min (>60); Glucose 90 mg/dL (74-106); Sodium Level 141 mmol/L (136-145)
[2019-02-11 07:43] LABS: Absolute Lymphocyte Count 3.36 X10^3/ul (0.83-4.51); Absolute Neutrophil Count 6.5 X10^3/uL (2.0-7.7); Basophil# 0.14 X10^3/uL; Basophil% 1.1 % (0-1); Eosinophils% 18.1 % (0-5); Hematocrit 33.7 % (37-47); Hemoglobin 10.8 g/dl (12.0-15.0); Lymphocyte # 3.36 X10^3/ul (4.0); Lymphocyte % 25.3 % (19-41); Mean Corpuscular Volume 93.6 fL (81-99); Mean Platelet Vol. 9.5 fl (6.2-12.0); Monocyte# 0.78 X10^3/uL; Monocyte% 5.9 % (0-10); Neutrophil % 48.9 % (47-70); Platelet Count 435 K/mm3 (150-450); RBC Distribution Width CV 13.6 % (11.6-14.6); RBC Distribution Width SD 44.7 fl (35.1-43.9); White Blood Count 13.3 K/mm3 (4.4-11.0)
[2019-02-11 07:57] LABS: Differential Indicated SCAN CRITERIA MET; Eosinophil# 2.41 X10^3/uL; POSITIVE COUNT NO; POSITIVE DIFFERENTIAL YES; POSITIVE MORPHOLOGY NO
[2019-02-11 08:00] LABS: Differential Comment SCANNED
[2019-02-11 10:00] VITALS: PULSE 70
[2019-02-11] MEDS: Acetaminophen 500 MG Tablet 1000 MG PO (10:45)
--- NOTE | 2019-02-11 10:53 | NURSING ---
Pt complaining of mid abdominal pain, and she stated she has had diarrhea since yesterday. Large amount of loose stool noted when this nurse assisted to bathroom. Pt denies and nausea or vomiting. Lungs are CTA, bowel sounds hyperactive at this time. Pt requesting Tylenol, PRN Tylenol given Per request. Will continue to monitor, will hold stool softener until diarrhea resolves.
[2019-02-11] MEDS: Tuberculin,Purif.prot.deriv. 50 TU/ML Vial 5 ML ID (12:52)
[2019-02-11 15:13] VITALS: BP 140/75; PULSE 75; RESP 16; TEMP 36.4; O2SAT 92
[2019-02-11] MEDS: MELATONIN 10 MG TABLET 5 MG PO (20:42)
[2019-02-11] MEDS: Atorvastatin Calcium 10 MG Tablet PO (20:42)
[2019-02-12] MEDS: Isosorbide Mononitrate 30 MG Tablet PO (05:20)
[2019-02-12] MEDS: Losartan Potassium 50 MG Tablet PO (05:20)
[2019-02-12] MEDS: Loratadine 10 MG Tablet PO (05:20)
[2019-02-12] MEDS: Tolterodine Tartrate 2 MG CAP.SA PO (05:20)
[2019-02-12] MEDS: Menthol/Lanolin/Calamine/Znox 113 GM Tube 1 APPLIC TOPICAL ×2 (05:20→20:27)
[2019-02-12] MEDS: Nystatin Powder 15gm Bottle 1 APPLIC TOPICAL ×2 (05:21→20:27)
[2019-02-12] MEDS: Pantoprazole Sodium 20 MG Tablet PO (05:21)
[2019-02-12] MEDS: Clopidogrel Bisulfate 75 MG Tablet PO (05:21)
[2019-02-12] MEDS: Atenolol 50 MG Tablet PO (05:21)
[2019-02-12] MEDS: Enoxaparin 40 MG/0.4 ML Syringe SC (05:22)
[2019-02-12 06:30] VITALS: PULSE 84; RESP 18; O2SAT 93
[2019-02-12 15:27] VITALS: BP 134/76; PULSE 70; RESP 16; TEMP 36.6; O2SAT 95
[2019-02-12] MEDS: Acetaminophen 500 MG Tablet 1000 MG PO (17:32)
[2019-02-12] MEDS: Senna/Docusate Sodium 1 Tablet PO (17:33)
[2019-02-12] MEDS: MELATONIN 10 MG TABLET 5 MG PO (20:24)
[2019-02-12] MEDS: Atorvastatin Calcium 10 MG Tablet PO (20:25)
[2019-02-13] MEDS: Furosemide 20 MG Tablet PO (05:32)
[2019-02-13] MEDS: Tolterodine Tartrate 2 MG CAP.SA PO (05:32)
[2019-02-13] MEDS: Clopidogrel Bisulfate 75 MG Tablet PO (05:32)
[2019-02-13] MEDS: Atenolol 50 MG Tablet PO (05:32)
[2019-02-13] MEDS: Loratadine 10 MG Tablet PO (05:32)
[2019-02-13] MEDS: Pantoprazole Sodium 20 MG Tablet PO (05:33)
[2019-02-13] MEDS: Enoxaparin 40 MG/0.4 ML Syringe SC (05:33)
[2019-02-13] MEDS: Isosorbide Mononitrate 30 MG Tablet PO (05:33)
[2019-02-13] MEDS: Losartan Potassium 50 MG Tablet PO (05:34)
[2019-02-13] MEDS: Menthol/Lanolin/Calamine/Znox 113 GM Tube 1 APPLIC TOPICAL ×2 (05:37→20:15)
[2019-02-13] MEDS: Nystatin Powder 15gm Bottle 1 APPLIC TOPICAL ×2 (07:25→20:15)
[2019-02-13 13:20] VITALS: PULSE 70; RESP 18; O2SAT 96
--- NOTE | 2019-02-13 14:26 | CASEMGMT ---
Social Work Staff reporting that pt is requesting to go home. SW placed call to pt son who lives with pt. Son states he is recovering from bypass and cannot take care of pt if she returns home at this time and son is fearful that pt will come home and try to care for him. SW informed son that target d/c date is 02/23/19. Son expresses understanding and states he will call pt and let her know he does not feel she can come home at this time. SW later entered pt room and discussed d/c. Pt states phone rang but she was not able get it so she has not talked to son. SW explained that her son does not feel he can care for her at this time because of his illness and he would like pt to continue with therapy. Pt stating she needs to go home to care for her son and the house. SW assured pt that son is taken care of and that he states he does not want pt to come and take care of the house but to work on her recovery. Pt expressing understanding but frustration. SW provided emotional support. Will continue to follow. THOMAS Soto
[2019-02-13 14:43] LABS: Pathologist Review Reviewed
[2019-02-13 15:21] VITALS: BP 141/74; PULSE 75; RESP 14; TEMP 36.6; O2SAT 94
[2019-02-13] MEDS: MELATONIN 10 MG TABLET 5 MG PO (20:16)
[2019-02-13] MEDS: Atorvastatin Calcium 10 MG Tablet PO (20:18)
[2019-02-14] MEDS: Clopidogrel Bisulfate 75 MG Tablet PO (05:05)
[2019-02-14] MEDS: Atenolol 50 MG Tablet PO (05:05)
[2019-02-14] MEDS: Tolterodine Tartrate 2 MG CAP.SA PO (05:05)
[2019-02-14] MEDS: Pantoprazole Sodium 20 MG Tablet PO (05:05)
[2019-02-14] MEDS: Losartan Potassium 50 MG Tablet PO (05:05)
[2019-02-14] MEDS: Isosorbide Mononitrate 30 MG Tablet PO (05:05)
[2019-02-14] MEDS: Loratadine 10 MG Tablet PO (05:05)
[2019-02-14] MEDS: Menthol/Lanolin/Calamine/Znox 113 GM Tube 1 APPLIC TOPICAL ×2 (05:06→20:55)
[2019-02-14] MEDS: Nystatin Powder 15gm Bottle 1 APPLIC TOPICAL ×2 (05:07→20:55)
[2019-02-14] MEDS: Enoxaparin 40 MG/0.4 ML Syringe SC (05:10)
[2019-02-14 15:48] VITALS: BP 148/67; PULSE 68; RESP 18; TEMP 36.2; O2SAT 94
[2019-02-14 20:00] VITALS: PULSE 65; RESP 16; O2SAT 95
[2019-02-14] MEDS: MELATONIN 10 MG TABLET 5 MG PO (20:58)
[2019-02-14] MEDS: Atorvastatin Calcium 10 MG Tablet PO (20:58)
[2019-02-15] MEDS: Atenolol 50 MG Tablet PO (04:42)
[2019-02-15] MEDS: Loratadine 10 MG Tablet PO (04:42)
[2019-02-15] MEDS: Isosorbide Mononitrate 30 MG Tablet PO (04:42)
[2019-02-15] MEDS: Tolterodine Tartrate 2 MG CAP.SA PO (04:42)
[2019-02-15] MEDS: Losartan Potassium 50 MG Tablet PO (04:42)
[2019-02-15] MEDS: Pantoprazole Sodium 20 MG Tablet PO (04:42)
[2019-02-15] MEDS: Clopidogrel Bisulfate 75 MG Tablet PO (04:43)
[2019-02-15] MEDS: Menthol/Lanolin/Calamine/Znox 113 GM Tube 1 APPLIC TOPICAL ×2 (04:44→20:15)
[2019-02-15] MEDS: Furosemide 20 MG Tablet PO (04:44)
[2019-02-15] MEDS: Enoxaparin 40 MG/0.4 ML Syringe SC (04:46)
[2019-02-15 07:00] VITALS: PULSE 68; RESP 16; O2SAT 94
[2019-02-15] MEDS: Nystatin Powder 15gm Bottle 1 APPLIC TOPICAL ×2 (07:59→20:15)
--- NOTE | 2019-02-15 08:43 | NURSING ---
Addendum entered by Joleen Gayle 02/15/19 18:34: Dr Alexander updated, new order for cxr. Original Note: Pt put government contracts manager light this nurse responded, Pt had 2 large emesis. Pt stated she felt like the food didn't go down Pt stated She got choked. This nurse washed Pt up, changed her clothing and bedding and got her situated in bed. Pt denies any further nausea. Joleen ALEXANDRA aware.
--- NOTE | 2019-02-15 09:15 | MDS.RN ---
Information for the mds was obtained from review of the clinical record, interview of resident, staff, and direct observation of resident's care.
[2019-02-15] MEDS: Acetaminophen 500 MG Tablet 1000 MG PO ×2 (10:27→20:52)
[2019-02-15 15:23] VITALS: BP 140/64; PULSE 66; RESP 16; TEMP 36.4; O2SAT 97
--- NOTE | 2019-02-15 19:00 | RAD_ITS ---
STUDY: X-RAY CHEST REASON FOR EXAM: Female, 83 years old. Cough. TECHNIQUE: Single AP portable view of the chest. COMPARISON: 01/31/2019. FINDINGS: There is mild chronic interstitial prominence. There is no demonstrated acute pulmonary infiltrate. There is no demonstrated pleural abnormality. Normal size heart. Normal mediastinum and [place]. Normal visualized pulmonary arteries. There is atherosclerotic calcification of the aortic arch with tortuosity. There are diffuse degenerative changes of the visualized thoracic spine. There are no visualized acute osseous abnormalities. There is no demonstrated abnormality of the visualized soft tissue structures of the upper abdomen. RAD/Chest PA and Lateral IMPRESSION: No evidence for acute cardiopulmonary pathology. Electronically Signed: Guanakito Brunner MD at 1:43 EDT , Service support ,
[2019-02-15] MEDS: MELATONIN 10 MG TABLET 5 MG PO (20:17)
[2019-02-15] MEDS: Atorvastatin Calcium 10 MG Tablet PO (20:18)
[2019-02-16] MEDS: Nystatin Powder 15gm Bottle 1 APPLIC TOPICAL ×2 (05:19→20:06)
[2019-02-16] MEDS: Pantoprazole Sodium 20 MG Tablet PO (05:20)
[2019-02-16] MEDS: Atenolol 50 MG Tablet PO (05:20)
[2019-02-16] MEDS: Tolterodine Tartrate 2 MG CAP.SA PO (05:20)
[2019-02-16] MEDS: Losartan Potassium 50 MG Tablet PO (05:20)
[2019-02-16] MEDS: Clopidogrel Bisulfate 75 MG Tablet PO (05:20)
[2019-02-16] MEDS: Isosorbide Mononitrate 30 MG Tablet PO (05:20)
[2019-02-16] MEDS: Menthol/Lanolin/Calamine/Znox 113 GM Tube 1 APPLIC TOPICAL ×2 (05:20→20:06)
[2019-02-16] MEDS: Loratadine 10 MG Tablet PO (05:20)
[2019-02-16] MEDS: Enoxaparin 40 MG/0.4 ML Syringe SC (05:21)
--- NOTE | 2019-02-16 09:02 | NURSING ---
dr landin reviewd chest xray report. no new orders.
--- NOTE | 2019-02-16 14:17 | CASEMGMT ---
Social Work Pt is progressing with therapy and discharge date set for 02/23/19 with LCD 02/22/19. Phone call to pt sophia Hutchins to discuss d/c plan. Pt lives with sophia Hutchins and plans to d/c there when ready. SW discussed d/c date with son and provided update on how pt is doing with therapy. [facility] is agreeable to d/c date and pt returning home on 02/23/19. Per [facility], pt does have passport services and Charmaine Farooq is her keycase assembler. Therapy is recommending home health PT/OT. Phone call to Charmaine Farooq at [facility] and VM left requesting return call to discuss services provided to pt. SW will continue to follow for d/c planning and support. Plan: Home with son and home health PT/OT. Passport services. THOMAS Soto
[2019-02-16 15:25] VITALS: BP 126/70; PULSE 68; RESP 16; TEMP 36.6; O2SAT 93
[2019-02-16 20:00] VITALS: PULSE 64; RESP 18; O2SAT 94
[2019-02-16] MEDS: Atorvastatin Calcium 10 MG Tablet PO (20:06)
[2019-02-16] MEDS: MELATONIN 10 MG TABLET 5 MG PO (20:06)
--- NOTE | 2019-02-16 20:24 | DCINST_ITS ---
- Discharge Diagnoses Current Active Problems: Current Active and Chronic Problems Fall (Acute) Encephalopathy (Acute) Intellectual disability (Chronic) Hallucinations (Acute) Urinary tract infection (Acute) Hypertension (Chronic) Stroke (Chronic) Edema (Chronic) Overactive bladder (Chronic) Allergic rhinitis (Chronic) Vitamin D deficiency (Chronic) Insomnia (Chronic) Asthma (Chronic) You will use the following diet at home:: No restrictions, Regular Your food should be the consistency of: Regular Your liquids should be the consistency of: Regular/Thin Discharge Activity: Return to Normal Activity, May Shower, Use Walker Weight Bearing Status: Weight bearing as tolerated Call your doctor if you observe: Fever of 101 or Higher, Inability to urinate, Inability to have a bowel movement, Shortness of breath, Chest pain, Uncontrolled pain Allergies/Adverse Reactions: Allergies adhesive Allergy (Verified 01/31/19 00:03) Unknown adhesive tape amitriptyline Allergy (Verified 01/31/19 00:03) Unknown codeine Allergy (Verified 01/31/19 00:03) Unknown hydrocodone bitartrate [From Vicodin] Allergy (Verified 01/31/19 00:03) Hives Iodinated Contrast- Oral and IV Dye [Iodinated Contrast Media - IV Dye] Allergy (Verified 01/31/19 00:03) Unknown naproxen Allergy (Verified 01/31/19 00:03) Unknown Penicillins Allergy (Verified 01/31/19 00:03) Rash phenytoin sodium [From Dilantin] Allergy (Verified 01/31/19 00:03) Unknown phenytoin sodium extended [From Dilantin] Allergy (Verified 01/31/19 00:03) Unknown silicone Allergy (Verified 01/31/19 00:03) Unknown Medications to take at Discharge Atenolol 50 mg PO DAILY 01/31/19 Atorvastatin Calcium 10 mg PO DAILY 01/31/19 Clopidogrel Bisulfate [Plavix] 75 mg PO DAILY 01/31/19 Furosemide [Lasix] 20 mg PO QODAY 01/31/19 Loratadine [Claritin] 10 mg PO DAILY 01/31/19 Melatonin 5 mg PO QHS 01/31/19 Omeprazole [Prilosec] 20 mg PO DAILY 01/31/19 Oxybutynin Chloride [Oxybutynin Chloride ER] 10 mg PO DAILY 01/31/19 Potassium Chloride [K-Dur] 20 meq PO BID 01/31/19 Isosorbide Mononitrate [Isosorbide Mononitrate ER] 30 mg PO DAILY #30 tab.er.24h 02/16/19 Losartan Potassium 50 mg PO DAILY #30 tablet 02/16/19 Menthol/Lanolin/Calamine/Znox [Calmoseptine Ointment] 1 applic TOPICAL 0600,2200 tube 02/16/19 Mineral Oil/Petrolatum,White [Eucerin] 1 applic TOPICAL 0600,2200 jar 02/16/19 Nystatin Powder [Mycostatin Powder] 1 applic TOPICAL 0600,2200 bottle 02/16/19 The following prescriptions were given: Isosorbide Mononitrate [Isosorbide Mononitrate ER] 30 mg PO DAILY #30 tab.er.24h Losartan Potassium 50 mg PO DAILY #30 tablet Primary Care Physician: Tian Alexander Chi, MD [COURTESY STAFF PHYSICIAN] - Please follow up with your Primary Care Physician in: 1 week. Test Results: Test results from this visit will be discussed in further detail at your follow- up appointment, if applicable. Proposed Discharge Date: 01/23/19
--- NOTE | 2019-02-16 20:25 | DS.PCM_ITS ---
Discharge Date and Diagnosis - Problem List Patient Problems: Active and Suspected Problems Fall (Acute) Encephalopathy (Acute) Hallucinations (Acute) Urinary tract infection (Acute) Date of Admission: 02/03/19 Date of Discharge: 02/17/19 - Primary Discharge Diagnosis Active and Suspected Problems Fall (Acute) Encephalopathy (Acute) Hallucinations (Acute) Urinary tract infection (Acute) - Secondary Discharge Diagnosis Chronic Problems Intellectual disability (Chronic) Hypertension (Chronic) Stroke (Chronic) Edema (Chronic) Overactive bladder (Chronic) Allergic rhinitis (Chronic) Vitamin D deficiency (Chronic) Insomnia (Chronic) Asthma (Chronic) Benign essential HTN (Chronic) Cerebrovascular disease (Chronic) reported 2 strokes mild left facial droop Gastroesophageal reflux disease (Chronic) HLD (hyperlipidemia) (Chronic) Urinary incontinence (Chronic) small vessel disease negative MRA 12/06 Hospital Course and Treatment Imaging Results: 02/03/19 17:34 Diet: Regular Diet Food consistency:: Mechanical Soft/Ground Liquid Consistency:: Regular/Thin Dietary Modifications:: Mechanical Soft Diet Diet Comments: Distant supervision, seated 90 degree, meds q/ liquids Clinical Impression(s) from Imaging Studies KUB X-Ray 02/03/19 19:50 IMPRESSION: Moderate amount of bowel gas. Electronically Signed: Zaina Cabrera MD at 20:39 EDT Tel , Service support , Chest X-Ray 02/15/19 19:00 IMPRESSION: No evidence for acute cardiopulmonary pathology. Electronically Signed: Guanakito Brunner MD at 1:43 EDT , Service support , Operations: None Procedures: None Summary of Care Provided: The patient is a 83 year old Female with below past medical history hospitalized for E. Coli urinary tract infection, complicated by encephalopathy, admitted to TCU with debility, here for rehabilitation, strengthening, prior to discharge home with family. Discharge home with son, Home Health Services, Passport Services. Patient Problems: Active and Suspected Problems Fall (Acute) Encephalopathy (Acute) Hallucinations (Acute) Urinary tract infection (Acute) - Physical Exam Vital Signs Temp Pulse Resp BP Pulse Ox 97.8 F 68 16 126/70 H 93 02/16/19 15:25 02/16/19 15:25 02/16/19 15:25 02/16/19 15:25 02/16/19 15:25 Oxygen Delivery Method Room Air Weight: 82.1 kg Body Mass Index (BMI) 28.5 Finger Stick Blood Glucose 111 Intake and Output for Last 24 Hours 02/14/19 02/15/19 02/16/19 23:59 23:59 23:59 Intake Total 1060 / 1060 1200 / 1200 1080 / 1080 Balance 1060 / 1060 1200 / 1200 1080 / 1080 Discharge Diet: No Restrictions Discharge Activity: Return to Normal Activity, May Shower, Use Walker Weight Bearing Status: Weight bearing as tolerated Call your doctor if you observe: Fever of 101 or Higher, Inability to urinate, Inability to have a bowel movement, Shortness of breath, Chest pain, Uncontro lled pain Home Medications: Medications to take at Discharge Atenolol 50 mg PO DAILY 01/31/19 Atorvastatin Calcium 10 mg PO DAILY 01/31/19 Clopidogrel Bisulfate [Plavix] 75 mg PO DAILY 01/31/19 Furosemide [Lasix] 20 mg PO QODAY 01/31/19 Loratadine [Claritin] 10 mg PO DAILY 01/31/19 Melatonin 5 mg PO QHS 01/31/19 Omeprazole [Prilosec] 20 mg PO DAILY 01/31/19 Oxybutynin Chloride [Oxybutynin Chloride ER] 10 mg PO DAILY 01/31/19 Potassium Chloride [K-Dur] 20 meq PO BID 01/31/19 Isosorbide Mononitrate [Isosorbide Mononitrate ER] 30 mg PO DAILY #30 tab.er.24h 02/16/19 Losartan Potassium 50 mg PO DAILY #30 tablet 02/16/19 Menthol/Lanolin/Calamine/Znox [Calmoseptine Ointment] 1 applic TOPICAL 0600,2200 tube 02/16/19 Mineral Oil/Petrolatum,White [Eucerin] 1 applic TOPICAL 0600,2200 jar 02/16/19 Nystatin Powder [Mycostatin Powder] 1 applic TOPICAL 0600,2200 bottle 02/16/19 Following Prescrptions Were Given to Patient: Isosorbide Mononitrate [Isosorbide Mononitrate ER] 30 mg PO DAILY #30 tab.er.24h Losartan Potassium 50 mg PO DAILY #30 tablet Primary Care Physician: Tian Alexander Chi, MD [COURTESY STAFF PHYSICIAN] - Please follow up with your Primary Care Physician in: 1 week. Disposition: Home with Home Health Minutes spent on discharge:: 35 Patient Condition:: Stable Medical Necessity - Tobacco Use Smoking Status: Never smoker Tobacco Use: Non-smoker Meaningful Use Info Meaningful Use Diagnoses (Choose all that apply): None applicable
--- NOTE | 2019-02-16 20:25 | PCM.PN.HH ---
Home Health Note - Plan Overview of reason of hospitalization: The patient is a 83 year old Female with below past medical history hospitalized for E. Coli urinary tract infection, complicated by encephalopathy, admitted to TCU with debility, here for rehabilitation, strengthening, prior to discharge home with family. Discharge home with son, Home Health Services, Passport Services. Problems: Patient was seen for Fall (Acute) Encephalopathy (Acute) Intellectual disability (Chronic) Hallucinations (Acute) Urinary tract infection (Acute) Hypertension (Chronic) Stroke (Chronic) Edema (Chronic) Overactive bladder (Chronic) Allergic rhinitis (Chronic) Vitamin D deficiency (Chronic) Insomnia (Chronic) Asthma (Chronic) Complete List of Medical Problems Acute cystitis (Acute) Hypokalemia (Acute) Fall (Acute) Encephalopathy (Acute) Intellectual disability (Chronic) Hallucinations (Acute) Urinary tract infection (Acute) Hypertension (Chronic) Stroke (Chronic) Edema (Chronic) Overactive bladder (Chronic) Allergic rhinitis (Chronic) Vitamin D deficiency (Chronic) Insomnia (Chronic) Asthma (Chronic) Benign essential HTN (Chronic) Cerebrovascular disease (Chronic) Gastroesophageal reflux disease (Chronic) HLD (hyperlipidemia) (Chronic) Urinary incontinence (Chronic) Shortness of breath (Acute) Lethargy (Acute) Decreased level of consciousness (Acute) Left hip pain (Acute) Acute ischemic stroke (Acute) - Requirements and Reasons Disciplines Needed/Ordered: Physical Therapy Reason for Disciplines: Disease Specific Monitoring/education, Medication Management/Knowledge Deficit, Gait Training, Stair Training, Fall Prevention, Home Safety/Equipment Instruction, Balance and/or Posture Training, Transfer Training Related To: Change in Medical Treatment Plan, Limited/Poor Endurance, Physical Impairments, Unsteady Gait/Balance, Fall Risk Patient is unable to leave the home: Without Aid of Supportive Devices (crutches, cane, wheelchair, walker), Without the assistance of another person - Additional Disciplines Additional Disciplines Needed/Ordered: Occupational Therapy
[2019-02-17] MEDS: Acetaminophen 500 MG Tablet 1000 MG PO (01:31)
--- NOTE | 2019-02-17 01:35 | NURSING ---
Assisted to and from bathroom and back to bed. C/O left hand pain just started given tylenol per request. Patient believes it is from therapy increasing the weight on hand weights today and from arthritis. Hand is not swollen or warm to touch. Nursing Coordinator in weak. Refused ice. Will cont to monitor.Same reported to Ismael RN and Hina RN.
[2019-02-17] MEDS: Nystatin Powder 15gm Bottle 1 APPLIC TOPICAL ×2 (05:35→21:36)
[2019-02-17] MEDS: Tolterodine Tartrate 2 MG CAP.SA PO (05:36)
[2019-02-17] MEDS: Clopidogrel Bisulfate 75 MG Tablet PO (05:36)
[2019-02-17] MEDS: Isosorbide Mononitrate 30 MG Tablet PO (05:36)
[2019-02-17] MEDS: Losartan Potassium 50 MG Tablet PO (05:36)
[2019-02-17] MEDS: Atenolol 50 MG Tablet PO (05:36)
[2019-02-17] MEDS: Furosemide 20 MG Tablet PO (05:36)
[2019-02-17] MEDS: Menthol/Lanolin/Calamine/Znox 113 GM Tube 1 APPLIC TOPICAL ×2 (05:36→21:35)
[2019-02-17] MEDS: Loratadine 10 MG Tablet PO (05:37)
[2019-02-17] MEDS: Enoxaparin 40 MG/0.4 ML Syringe SC (05:37)
[2019-02-17] MEDS: Pantoprazole Sodium 20 MG Tablet PO (05:37)
[2019-02-17 10:00] VITALS: PULSE 68; RESP 16; O2SAT 96
--- NOTE | 2019-02-17 10:35 | CASEMGMT ---
Social Work SW met with pt and discussed d/c date of 02/23/19. Pt is agreeable to d/c date and to return home with her son. SW informed pt that SW left message with passport CM to restart services and pt is agreeable. NOMNOC signed. SW will continue to follow for d/c planning. THOMAS Soto
[2019-02-17 15:29] VITALS: BP 142/71; PULSE 66; RESP 18; TEMP 37.2; O2SAT 95
[2019-02-17] MEDS: MELATONIN 10 MG TABLET 5 MG PO (21:37)
[2019-02-17] MEDS: Atorvastatin Calcium 10 MG Tablet PO (21:38)
[2019-02-18] MEDS: Loratadine 10 MG Tablet PO (05:13)
[2019-02-18] MEDS: Clopidogrel Bisulfate 75 MG Tablet PO (05:13)
[2019-02-18] MEDS: Losartan Potassium 50 MG Tablet PO (05:13)
[2019-02-18] MEDS: Tolterodine Tartrate 2 MG CAP.SA PO (05:13)
[2019-02-18] MEDS: Atenolol 50 MG Tablet PO (05:14)
[2019-02-18] MEDS: Isosorbide Mononitrate 30 MG Tablet PO (05:14)
[2019-02-18] MEDS: Senna/Docusate Sodium 1 Tablet PO (05:14)
[2019-02-18] MEDS: Pantoprazole Sodium 20 MG Tablet PO (05:14)
[2019-02-18] MEDS: Nystatin Powder 15gm Bottle 1 APPLIC TOPICAL ×2 (05:18→22:01)
[2019-02-18] MEDS: Enoxaparin 40 MG/0.4 ML Syringe SC (05:18)
[2019-02-18] MEDS: Menthol/Lanolin/Calamine/Znox 113 GM Tube 1 APPLIC TOPICAL ×2 (05:21→22:01)
[2019-02-18 07:07] LABS: Absolute Lymphocyte Count 2.83 X10^3/ul (0.83-4.51); Basophil% 0.8 % (0-1); Eosinophils% 18.3 % (0-5); Hematocrit 32.3 % (37-47); Hemoglobin 10.4 g/dl (12.0-15.0); Lymphocyte # 2.83 X10^3/ul (4.0); Lymphocyte % 23.8 % (19-41); Mean Corp Hgb Conc 32.2 g/gl (32-36); Mean Corpuscular Hgb 29.4 pg (27.0-32.0); Mean Corpuscular Volume 91.2 fL (81-99); Mean Platelet Vol. 9.3 fl (6.2-12.0); Monocyte# 0.72 X10^3/uL; Monocyte% 6.1 % (0-10); Neutrophil # 6.03 X10^3/uL (2.7-7.7); Neutrophil % 50.7 % (47-70); Platelet Count 394 K/mm3 (150-450); RBC Distribution Width CV 13.6 % (11.6-14.6); RBC Distribution Width SD 43.9 fl (35.1-43.9); Red Blood Count 3.54 M/mm3 (4.2-5.4); White Blood Count 11.9 K/mm3 (4.4-11.0)
[2019-02-18 07:08] LABS: Differential Indicated SCAN CRITERIA MET; Eosinophil# 2.17 X10^3/uL; POSITIVE COUNT NO; POSITIVE DIFFERENTIAL YES; POSITIVE MORPHOLOGY NO
[2019-02-18 07:11] LABS: Anion Gap 4 (5-15); BUN 25 mg/dL (7-18); BUN/Creat Ratio 30.7 RATIO (10-20); Calcium,Total 8.6 mg/dL (8.5-10.1); Chloride 108 mmol/L (98-107); Creatinine, Serum 0.82 mg/dL (0.55-1.02); EST Glomerular Filtration Rate 72 mL/min (>60); Est Glom Filt Rate - Afr Amer 87 mL/min (>60); Estimated Creatinine Clearance 50.37 ml/min; Glucose 94 mg/dL (74-106); Potassium 3.8 mmol/L (3.5-5.1); Sodium Level 139 mmol/L (136-145)
[2019-02-18 10:30] VITALS: PULSE 67; RESP 18; O2SAT 96
[2019-02-18] MEDS: Acetaminophen 500 MG Tablet 1000 MG PO (11:04)
[2019-02-18 15:40] VITALS: BP 132/68; PULSE 64; RESP 16; TEMP 36.7; O2SAT 95
[2019-02-18] MEDS: MELATONIN 10 MG TABLET 5 MG PO (22:00)
[2019-02-18] MEDS: Atorvastatin Calcium 10 MG Tablet PO (22:01)
[2019-02-19] MEDS: Losartan Potassium 50 MG Tablet PO (05:21)
[2019-02-19] MEDS: Furosemide 20 MG Tablet PO (05:21)
[2019-02-19] MEDS: Enoxaparin 40 MG/0.4 ML Syringe SC (05:21)
[2019-02-19] MEDS: Senna/Docusate Sodium 1 Tablet PO (05:21)
[2019-02-19] MEDS: Clopidogrel Bisulfate 75 MG Tablet PO (05:21)
[2019-02-19] MEDS: Pantoprazole Sodium 20 MG Tablet PO (05:21)
[2019-02-19] MEDS: Atenolol 50 MG Tablet PO (05:21)
[2019-02-19] MEDS: Isosorbide Mononitrate 30 MG Tablet PO (05:21)
[2019-02-19] MEDS: Tolterodine Tartrate 2 MG CAP.SA PO (05:21)
[2019-02-19] MEDS: Loratadine 10 MG Tablet PO (05:21)
[2019-02-19] MEDS: Nystatin Powder 15gm Bottle 1 APPLIC TOPICAL ×2 (05:23→21:00)
[2019-02-19] MEDS: Menthol/Lanolin/Calamine/Znox 113 GM Tube 1 APPLIC TOPICAL ×2 (05:24→20:56)
[2019-02-19 09:30] VITALS: PULSE 70; RESP 18; O2SAT 97
[2019-02-19 15:43] VITALS: BP 138/70; PULSE 80; RESP 18; TEMP 36.2; O2SAT 94
--- NOTE | 2019-02-19 16:48 | NURSING ---
HELD 1800 STOOL SOFTENER DUE TO PT HAVING DIARRHEA. IBRAHIMA KIM AWARE.
[2019-02-19] MEDS: MELATONIN 10 MG TABLET 5 MG PO (20:56)
[2019-02-19] MEDS: Atorvastatin Calcium 10 MG Tablet PO (20:57)
[2019-02-19] MEDS: Acetaminophen 500 MG Tablet 1000 MG PO (20:59)
[2019-02-20] MEDS: Enoxaparin 40 MG/0.4 ML Syringe SC (05:06)
[2019-02-20] MEDS: Senna/Docusate Sodium 1 Tablet PO (05:07)
[2019-02-20] MEDS: Clopidogrel Bisulfate 75 MG Tablet PO (05:07)
[2019-02-20] MEDS: Atenolol 50 MG Tablet PO (05:07)
[2019-02-20] MEDS: Pantoprazole Sodium 20 MG Tablet PO (05:07)
[2019-02-20] MEDS: Loratadine 10 MG Tablet PO (05:07)
[2019-02-20] MEDS: Losartan Potassium 50 MG Tablet PO (05:07)
[2019-02-20] MEDS: Nystatin Powder 15gm Bottle 1 APPLIC TOPICAL ×2 (05:07→20:49)
[2019-02-20] MEDS: Isosorbide Mononitrate 30 MG Tablet PO (05:07)
[2019-02-20] MEDS: Tolterodine Tartrate 2 MG CAP.SA PO (05:07)
[2019-02-20] MEDS: Menthol/Lanolin/Calamine/Znox 113 GM Tube 1 APPLIC TOPICAL ×2 (05:08→20:54)
[2019-02-20 13:29] LABS: Pathologist Review Reviewed
[2019-02-20] MEDS: Acetaminophen 500 MG Tablet 1000 MG PO (14:41)
[2019-02-20 15:27] VITALS: BP 144/71; PULSE 66; RESP 16; TEMP 36.2; O2SAT 95
[2019-02-20] MEDS: Atorvastatin Calcium 10 MG Tablet PO (20:48)
[2019-02-20] MEDS: MELATONIN 10 MG TABLET 5 MG PO (20:48)
[2019-02-21] MEDS: Pantoprazole Sodium 20 MG Tablet PO (05:43)
[2019-02-21] MEDS: Furosemide 20 MG Tablet PO (05:43)
[2019-02-21] MEDS: Atenolol 50 MG Tablet PO (05:43)
[2019-02-21] MEDS: Tolterodine Tartrate 2 MG CAP.SA PO (05:44)
[2019-02-21] MEDS: Loratadine 10 MG Tablet PO (05:44)
[2019-02-21] MEDS: Losartan Potassium 50 MG Tablet PO (05:44)
[2019-02-21] MEDS: Enoxaparin 40 MG/0.4 ML Syringe SC (05:44)
[2019-02-21] MEDS: Isosorbide Mononitrate 30 MG Tablet PO (05:44)
[2019-02-21] MEDS: Clopidogrel Bisulfate 75 MG Tablet PO (05:44)
[2019-02-21] MEDS: Menthol/Lanolin/Calamine/Znox 113 GM Tube 1 APPLIC TOPICAL ×2 (05:46→21:10)
[2019-02-21] MEDS: Nystatin Powder 15gm Bottle 1 APPLIC TOPICAL ×2 (05:46→21:11)
[2019-02-21] MEDS: Acetaminophen 500 MG Tablet 1000 MG PO (09:08)
[2019-02-21 15:51] VITALS: BP 152/76; PULSE 66; RESP 18; TEMP 36.6; O2SAT 97
[2019-02-21 21:00] VITALS: PULSE 70; RESP 16; O2SAT 97
[2019-02-21] MEDS: MELATONIN 10 MG TABLET 5 MG PO (21:12)
[2019-02-21] MEDS: Atorvastatin Calcium 10 MG Tablet PO (21:12)
[2019-02-22] MEDS: Nystatin Powder 15gm Bottle 1 APPLIC TOPICAL ×2 (05:24→20:34)
[2019-02-22] MEDS: Menthol/Lanolin/Calamine/Znox 113 GM Tube 1 APPLIC TOPICAL ×2 (05:25→20:33)
[2019-02-22] MEDS: Loratadine 10 MG Tablet PO (05:26)
[2019-02-22] MEDS: Atenolol 50 MG Tablet PO (05:26)
[2019-02-22] MEDS: Pantoprazole Sodium 20 MG Tablet PO (05:26)
[2019-02-22] MEDS: Isosorbide Mononitrate 30 MG Tablet PO (05:26)
[2019-02-22] MEDS: Tolterodine Tartrate 2 MG CAP.SA PO (05:26)
[2019-02-22] MEDS: Losartan Potassium 50 MG Tablet PO (05:26)
[2019-02-22] MEDS: Clopidogrel Bisulfate 75 MG Tablet PO (05:26)
[2019-02-22] MEDS: Enoxaparin 40 MG/0.4 ML Syringe SC (05:27)
[2019-02-22 06:30] VITALS: PULSE 74; RESP 18; O2SAT 96
--- NOTE | 2019-02-22 14:28 | CASEMGMT ---
Social Work Pt plans on discharging home tomorrow with her son. Phone call to Tiffanie Murphy CM at [facility]. Charmaine states she has aids scheduled for 2hr each morning 7 days a week from [employer]. Charmaine is also working on setting up aid for evening hours. Pt also has an emergency alert system. Charmaine states she is planning on meeting with pt and son tomorrow after pt discharges home. Met with pt and she is planning on discharge tomorrow and states her daughter or friend will be transporting her home. Pt notified of conversation with Charmaine and agreeable to D/C plan. Pt would like to use [facility] for home PT/OT. Pt has all needed DME. Phone call to Kelsie and referral made. Plan: Home with son. [facility] services, aid 2hr day 7x week, [facility] PT/OT THOMAS Soto
[2019-02-22 16:00] VITALS: BP 147/70; PULSE 68; RESP 16; TEMP 36.7; O2SAT 98
[2019-02-22] MEDS: Atorvastatin Calcium 10 MG Tablet PO (20:35)
[2019-02-22] MEDS: MELATONIN 10 MG TABLET 5 MG PO (20:36)
[2019-02-23] MEDS: Isosorbide Mononitrate 30 MG Tablet PO (05:25)
[2019-02-23] MEDS: Losartan Potassium 50 MG Tablet PO (05:25)
[2019-02-23] MEDS: Clopidogrel Bisulfate 75 MG Tablet PO (05:25)
[2019-02-23] MEDS: Atenolol 50 MG Tablet PO (05:25)
[2019-02-23] MEDS: Pantoprazole Sodium 20 MG Tablet PO (05:25)
[2019-02-23] MEDS: Loratadine 10 MG Tablet PO (05:25)
[2019-02-23] MEDS: Tolterodine Tartrate 2 MG CAP.SA PO (05:25)
[2019-02-23] MEDS: Menthol/Lanolin/Calamine/Znox 113 GM Tube 1 APPLIC TOPICAL ×2 (05:26)
[2019-02-23] MEDS: Furosemide 20 MG Tablet PO (05:26)
[2019-02-23] MEDS: Enoxaparin 40 MG/0.4 ML Syringe SC (05:28)
[2019-02-23] MEDS: Nystatin Powder 15gm Bottle 1 APPLIC TOPICAL (05:34)
[2019-02-23 06:40] VITALS: PULSE 61; RESP 18; O2SAT 98
[2019-02-23] MEDS: Acetaminophen 500 MG Tablet 1000 MG PO (06:40)
--- NOTE | 2019-03-02 08:13 | MDS.RN ---
Information for the mds was obtained from review of the clinical record, interview of resident, staff, and direct observation of resident's care.
== END 2019-02-23 14:22 | disposition home health service (06) | DRG 948 ==
PROVIDERS: Admitting Provider Family Medicine Geriatric Medicine; Referring Provider Family Medicine Geriatric Medicine; Visit Provider Family Medicine Geriatric Medicine
DX: R53.81 Other malaise (principal); N39.0 Urinary tract infection, site not specified; E78.5 Hyperlipidemia, unspecified; I25.10 Atherosclerotic heart disease of native coronary artery without angina pectoris; B96.20 Unspecified Escherichia coli [E. coli] as the cause of diseases classified elsewhere; K21.9 Gastro-esophageal reflux disease without esophagitis; N32.81 Overactive bladder; E87.6 Hypokalemia; F79 Unspecified intellectual disabilities; I10 Essential (primary) hypertension; J45.909 Unspecified asthma, uncomplicated; Z91.81 History of falling; R47.1 Dysarthria and anarthria; I69.392 Facial weakness following cerebral infarction
CPT/HCPCS: 36415; 71046; 74018; 80048; 85025; 92526; 97110; 97116; 97162; 97166; 97530; 97535; 97802

== ENCOUNTER → 2019-05-05 08:10 | Outpatient (CLI) | payer MEDICARE, MEDICAID, SELFPAY ==
[2019-05-04 16:01] VITALS: BMI 28.5
[2019-05-05 10:00] LABS: AST(SGOT) 18 U/L (15-37); Alanine Aminotransfer ALT/SGPT 20 U/L (13-56); Albumin, Serum 3.2 g/dL (3.2-5.0); Alkaline Phosphatase 89 U/L (45-117); Bilirubin, Direct 0.16 mg/dL (0.00-0.30); Cholesterol 148 mg/dL (200); Globulin 4.3 g/dL (2.2-4.2); High Density Lipoprotein 54 mg/dL; Protein, Total 7.5 g/dL (6.4-8.2); Triglycerides 126 mg/dL; Very Low Density Lipoprotein 25 mg/dL (5-40)
== END ==
PROVIDERS: Referring Provider Internal Medicine Cardiovascular Disease; Visit Provider Internal Medicine Cardiovascular Disease
DX: I50.22 Chronic systolic (congestive) heart failure (principal); E78.5 Hyperlipidemia, unspecified
CPT/HCPCS: 36415; 80061; 80076

== ENCOUNTER 2019-05-23 13:22 | Emergency (ER) | payer MEDICARE, MEDICAID, SELFPAY ==
[2019-05-04 16:01] VITALS: BMI 28.5
[2019-05-23 13:23] VITALS: BP 154/79; PULSE 58; RESP 16; TEMP 37.2; O2SAT 95; BMI 29.9
[2019-05-23 13:25] VITALS: BP 154/79; PULSE 58; RESP 16; TEMP 37.2; O2SAT 95
--- NOTE | 2019-05-23 13:38 | VDLE_ITS ---
Reason For Study: Pain Procedure LEFT Exam performed portable in ED. GSV is normal. A preliminary report was called and/or faxed CFV is compressible, spontaneous, phasic, to Michael. competent, and demonstrates normal augmentation. FV is compressible, spontaneous, phasic, competent and demonstrates normal augmentation. POP V is compressible, spontaneous, phasic, competent and demonstrates normal augmentation. T/P Trunk is compressible. PTV is compressible. LT PerV is compressible. Interpretation Summary There is no evidence of left lower extremity deep vein thrombosis. Left greater saphenous vein appears patent and compressible segmentally. Ordering Physician: Nadira Rodriguez Performed By: Janelle Allan RVT
--- NOTE | 2019-05-23 13:42 | ED.DCSUM_ITS ---
- ER Visit Summary Date of Service: 05/23/19 Chief Complaint: Left lower extremity pain History of Present Illness: The patient is a 83 F who was bit by dog approximately 1 week ago. Patient states she does know the dog but does not know the dog's shots are up-to-date. Home visiting doctor started her on clindamycin on May 17. She complained of increased pain around the wound. They wanted to have a wound check to ensure no sign of infection. Physical Examination: Vital signs unremarkable. She is afebrile. Patient sitting upright in bed no acute distress. She is nontoxic-appearing. Heart is regular rate and rhythm. Lung sounds are clear. Abdomen is soft nontender. Left lower extreme examination was 2 scabbed wounds to the left medial lower leg. One measures 2 x 2 cm and one measures 2 x 4 cm. There is minimal surrounding erythema. No fluctuance or drainage. Test Results: Venous ultrasound of the left leg is unremarkable. Emergency Department Course and Treatment: Patient is given tramadol here for pain. Due to her allergies she is limited to tramadol at this time. Patient has been on clindamycin. Cipro will be added to clindamycin for better coverage for dog bite. Wound care as discussed with caregiver at bedside. Treatment Plan: [] Disposition: Discharge Impression: Dog bite left leg This note was generated with [employer] dictation software. It may contain incorrect words, spelling, and punctuation that were not noted in review of the chart prior to signing ED Disposition - Plan for ED Patient: Disposition: Home or Assisted Living Instructions: Dog Bite Prescriptions: Ciprofloxacin [Cipro] 500 mg PO BID #14 tab Prescription Printed traMADol [Ultram] 50 mg PO Q6H PRN PRN 3 Days #14 tab PRN Reason: Pain Prescription Printed Additional Instructions: Follow-up with your home visiting physicians.
[2019-05-23] MEDS: traMADol 50 MG Tablet PO (13:44)
[2019-05-23] MEDS: Ciprofloxacin 500 MG Tablet PO (15:03)
[2019-05-23 15:05] VITALS: BP 144/71; PULSE 62; RESP 16; O2SAT 97
== END 2019-05-23 15:06 | disposition home or self-care (01) ==
PROVIDERS: Emergency Provider Emergency Medicine; Family Provider Internal Medicine; PCP Internal Medicine
DX: S81.852A Open bite, left lower leg, initial encounter (principal); W54.0XXA Bitten by dog, initial encounter; Y93.9 Activity, unspecified; Y92.9 Unspecified place or not applicable; I11.0 Hypertensive heart disease with heart failure; I50.9 Heart failure, unspecified; J44.9 Chronic obstructive pulmonary disease, unspecified; F03.90 Unspecified dementia, unspecified severity, without behavioral disturbance, psychotic disturbance, mood disturbance, and anxiety; Z79.82 Long term (current) use of aspirin; Z79.899 Other long term (current) drug therapy; Z86.73 Personal history of transient ischemic attack (TIA), and cerebral infarction without residual deficits
CPT/HCPCS: 93971; 99283

== ENCOUNTER → 2019-05-24 06:49 | Outpatient (CLI) | payer MEDICARE, MEDICAID, SELFPAY ==
[2019-05-04 16:01] VITALS: BMI 28.5
[2019-05-23 13:23] VITALS: BMI 29.9
--- NOTE | 2019-05-24 06:55 | ECHOCS_ITS ---
Reason For Study: CP Procedure This was a 2D Doppler, Color Flow transthoracic echocardiogram. The study was technically difficult. Contrast injection was performed. Exam performed in department. Left Ventricle Normal LV size. Left ventricular systolic function is normal. The estimated ejection fraction is 55 %. There is evidence of diastolic dysfunction. No regional wall motion abnormalities noted. Right Ventricle Normal RV size. Normal systolic function. Atria The left atrium is moderately enlarged. Normal right atrium. No doppler evidence for ASD. Mitral Valve There is mild mitral annular calcification. Normal mitral valve. Mild (1+) mitral valve insufficiency. Tricuspid Valve Normal tricuspid valve. Trivial tricuspid valve insufficiency. Unable to estimate RV systolic pressure/pulmonary artery pressure due to technically difficult study. Aortic Valve Trisinus/trileaflet aortic valve. Mild focal aortic valve calcification. Mild (1+) aortic valve insufficiency. Pulmonic Valve The pulmonic valve is not well visualized. Mild (1+) pulmonic valve insufficiency. Great Vessels Mildly dilated aortic root. Pericardium/Pleural No pericardial effusion. Medication 22 gauge I.V. with prn adaptor inserted into right arm. Diluted definity 5ml given slow IV push to enhance endocardial definition. MMode/2D Measurements & Calculations LVIDd: 4.9 cm IVSd: 1.6 cm LVOT diam: 2.1 cm LVIDs: 3.7 cm LVPWd: 1.2 cm FS: 24.7 % LVOT area: 3.6 cm2 Ao root diam: 3.7 cm LAV(MOD-sp4): 125.9 ml LA A4 area: 31.2 cm2 RA A4 area: 18.1 cm2 Time Measurements MV dec time: 0.26 sec Doppler Measurements & Calculations MV E max chaz: 58.2 cm/sec Lat Peak E' Chaz: 3.5 cm/sec Med Peak E' Chaz: 3.8 cm/sec MV A max chaz: 73.4 cm/sec E/E' lat: 16.4 E/E' med: 15.3 MV E/A: 0.79 MV V2 max: 83.8 cm/sec MV P1/2t max chaz: 80.9 cm/sec Ao V2 max: 119.9 cm/sec MV max P.8 mmHg MV P1/2t: 78.2 msec Ao max P.8 mmHg MV V2 mean: 50.7 cm/sec MV dec slope: 302.9 cm/sec2 Ao V2 mean: 78.4 cm/sec MV mean P.2 mmHg Ao mean P.8 mmHg MV V2 VTI: 26.2 cm MVA(P1/2t): 2.8 cm2 Ao V2 VTI: 25.8 cm MVA(VTI): 2.3 cm2 CAMILLE(I,D): 2.4 cm2 CAMILLE(V,D): 2.3 cm2 AI max chaz: 458.2 cm/sec LV V1 max: 77.8 cm/sec MR max chaz: 571.7 cm/sec AI max P.1 mmHg LV V1 max P.4 mmHg MR max P.7 mmHg AI dec slope: 263.9 cm/sec2 LV V1 mean P.1 mmHg MR mean chaz: 456.4 cm/sec AI P1/2t: 508.5 msec LV V1 mean: 47.1 cm/sec MR mean P.6 mmHg LV V1 VTI: 17.2 cm MR VTI: 256.9 cm SV(LVOT): 61.5 ml PA V2 max: 74.2 cm/sec Interpretation Summary The study was technically difficult. Contrast injection was performed. Left ventricular systolic function is normal. The estimated ejection fraction is 55 %. The left atrium is moderately enlarged. There is mild mitral annular calcification. Mild (1+) mitral valve insufficiency. Trivial tricuspid valve insufficiency. Mild focal aortic valve calcification. Mild (1+) aortic valve insufficiency. Mild (1+) pulmonic valve insufficiency. Mildly dilated aortic root. Unable to estimate RV systolic pressure/pulmonary artery pressure due to technically difficult study. There is evidence of diastolic dysfunction. Ordering Physician: Rob Jeronimo Referring Physician: Rob Jeronimo Performed By: Shakir Tong RCS
--- NOTE | 2019-05-24 09:22 | STRESSREP_ITS ---
Stress Test Report Date: 05-24-19 Procedure: Pharmacologic stress nuclear imaging study Indications: Chest pain; abnormal ECG Consent: Per the patient Procedure: The patient underwent pharmacologic (Regadenoson) evaluation with a peak heart rate of 75 beats per minute (53 %predicted maximal heart rate) and a peak blood pressure of 166/82 mmHg. The baseline ECG demonstrated sinus bradycardia; right IVCD pattern; nonspecific ST/T wave abnormality the peak pharmacologic ECG demonstrated no obvious ECG changes. There were no cardiac dysrhythmias pretest, during pharmacologic infusion, or recovery. There was no complaint of chest discomfort during pharmacologic infusion or recovery. The examination was discontinued secondary to completion of protocol. Impression: 1. Pharmacologic (Regadenoson) evaluation 2. Peak pharmacologic ECG with with no obvious ECG changes. 3. There were no cardiac dysrhythmias pretest, during pharmacologic infusion, or recovery. 4. Nuclear images pending Myocardial perfusion imaging study: Technique: The patient was injected with 11.9 millicuries of technetium 99m Cardiolite and subsequently rest SPECT Cardiolite nuclear imaging was obtained in the horizontal long, vertical long, and short axis views. The patient underwent pharmacologic (Regadenoson) evaluation with a peak heart rate of 75 beats per mi nute (53 % percent predicted maximal heart rate) and a peak blood pressure of 166/82 mmHg. The patient was injected with 34.2 millicuries of technetium 99m Cardiolite and subsequently stress SPECT Cardiolite nuclear imaging was obtained in the horizontal long, vertical long, and short axis views. A gated Cardiolite study at peak stress was obtained. Interpretation: Rest and stress SPECT Cardiolite nuclear imaging status post realignment, normalization, and attenuation correction demonstrate relative uniform tracer uptake and myocardial perfusion appearing within normal limits. There is end systolic thickening and brightening. The gated Cardiolite study demonstrates myocardial thickening and inward wall motion. The reported LVEF is 63 %. Impression: 1. Rest and stress SPECT Cardiolite nuclear imaging demonstrate relative uniform tracer uptake and myocardial perfusion appearing within normal limits. 2. The gated Cardiolite study reports an LVEF of 63 %. This note was generated with [employer] software. It may contain incorrect words, spelling, and punctuation that were not noted in checking the note before signing.
== END ==
PROVIDERS: Referring Provider Internal Medicine Cardiovascular Disease; Visit Provider Internal Medicine Cardiovascular Disease
DX: I20.9 Angina pectoris, unspecified (principal); I50.22 Chronic systolic (congestive) heart failure; R07.9 Chest pain, unspecified
CPT/HCPCS: 78452; 93017; 93306; A9500; Q9957; A4216; C8929; J2785

== ENCOUNTER → 2019-06-01 16:38 | Outpatient (CLI) | payer MEDICARE, MEDICAID, SELFPAY ==
[2019-05-23 13:23] VITALS: BMI 29.9
--- NOTE | 2019-06-01 16:40 | CT_ITS ---
STUDY: CT CHEST WITH CONTRAST REASON FOR EXAM: Female, 83 years old. Chest pain, hypertension RADIATION DOSAGE (If Supplied By Facility): CTDIvol = ( 15.29 ) mGy, DLP = ( 489.94 ) mGycm TECHNIQUE: Transaxial imaging was performed following intravenous administration of 100 IV Isovue 300. Individualized dose optimization techniques were used for this CT. COMPARISON: 2013 FINDINGS: Examination of the images with lung window demonstrate bibasilar mild subsegmental linear atelectasis with associated posterior pleural thickening. There is no observed pulmonary mass or nodule. There is no pleural or pericardial effusion. There is mild Cardiac enlargement. There are calcifications of the coronary arteries. There is no significant mediastinal or hilar lymphadenopathy. Normal unenhanced pulmonary arteries. There is atherosclerotic calcification of the aortic arch with tortuosity and elongation of the aortic arch and descending thoracic aorta. There is an increased kyphosis of the thoracic spine. There are moderate degenerative changes in the midthoracic spine. There is no demonstrated abnormality of the visualized upper abdomen. CT/Chest WITH Contrast IMPRESSION: Dependent bibasilar atelectasis. No organized infiltrate or effusion No suspicious noncalcified mass or nodule Degenerative bony changes Stable cardiomegaly with calcified coronary vessels. Electronically Signed: Drew Small MD at 11:24 EDT , Service support ,
[2019-06-01 16:55] LABS: CREATININE FINGERSTICK 1.1 mg/dL (0.55-1.02)
== END ==
PROVIDERS: Family Provider Internal Medicine; PCP Internal Medicine; Referring Provider Internal Medicine Cardiovascular Disease; Visit Provider Internal Medicine Cardiovascular Disease
DX: I77.819 Aortic ectasia, unspecified site (principal)
CPT/HCPCS: 71260; Q9967

== ENCOUNTER → 2019-08-04 15:47 | Outpatient (CLI) | payer MEDICARE, MEDICAID, SELFPAY ==
[2019-08-04 14:46] VITALS: BMI 30.9
--- NOTE | 2019-08-04 15:56 | RAD_ITS ---
STUDY: X-RAY CHEST REASON FOR EXAM: Female, 83 years old. Shortness of breath TECHNIQUE: PA and lateral views of the chest. COMPARISON: Prior study of 02/15/2019 FINDINGS: The lungs are clear and expanded. There is no demonstrated pleural abnormality. Normal size heart. Normal mediastinum and [place]. Normal visualized pulmonary arteries. There are calcified plaques of the thoracic aorta with uncoiling noted. There are diffuse degenerative changes of the visualized thoracic spine. Normal visualized ribs, clavicles, and shoulders. There is no demonstrated abnormality of the visualized soft tissue structures of the upper abdomen. RAD/Chest PA and Lateral IMPRESSION: Calcified plaques of the thoracic aorta with uncoiling noted. Degenerative changes of the thoracic spine. No acute cardiopulmonary disease process is seen. Chest findings are stable in the interval. Electronically Signed: Alan Humphrey MD at 23:57 EDT , Service support ,
== END ==
PROVIDERS: Family Provider Internal Medicine; PCP Internal Medicine; Referring Provider Nurse Practitioner Family; Visit Provider Nurse Practitioner Family
DX: I50.22 Chronic systolic (congestive) heart failure (principal); R06.02 Shortness of breath
CPT/HCPCS: 71046

== ENCOUNTER 2019-08-19 15:36 | Emergency (ER) | payer MEDICARE, MEDICAID, SELFPAY ==
[2019-08-04 14:46] VITALS: BMI 30.9
[2019-08-19 15:43] VITALS: BP 144/76; PULSE 62; RESP 16; TEMP 36.9; O2SAT 92; BMI 31.6
--- NOTE | 2019-08-19 15:46 | EKG12_ITS ---
Test Reason : SOB Blood Pressure : / mmHG Vent. Rate : 080 BPM Atrial Rate : 080 BPM P-R Int : 186 ms QRS Dur : 148 ms QT Int : 458 ms P-R-T Axes : 041 -22 -55 degrees QTc Int : 528 ms Normal sinus rhythm Right bundle branch block Left ventricular hypertrophy Nonspecific ST/T wave abnormality Abnormal ECG Confirmed by ZORA LAM, BARBARA ([id number]), publication editor YANICK MORALES ([id number]) on 08/21/2019 3:14:14 PM Referred By: Confirmed By:BARBARA BLAKELY MD
[2019-08-19 15:47] VITALS: O2SAT 93
--- NOTE | 2019-08-19 15:50 | RAD_ITS ---
STUDY: X-RAY CHEST REASON FOR EXAM: Female, 83 years old. Chest pain. TECHNIQUE: Single frontal view of the chest. COMPARISON: August 04, 2019 FINDINGS: There is no new focal consolidation. Normal size heart. Normal mediastinum and [place]. Normal visualized pulmonary arteries. There is atherosclerotic calcification of the aortic arch with tortuosity. Normal visualized thoracic spine. Normal visualized ribs, clavicles, and shoulders. There is no demonstrated abnormality of the visualized soft tissue structures of the upper abdomen. RAD/Chest 1 View (Portable) IMPRESSION: No acute cardiopulmonary process. Electronically Signed: Zaina Cabrera MD at 16:21 EDT Tel , Service support ,
--- NOTE | 2019-08-19 15:56 | ED.DCSUM_ITS ---
- ER Visit Summary Date of Service: 08/19/19 Chief Complaint: Shortness of breath History of Present Illness: The patient is a 83 F of CVA, CHF, COPD, hypertension high cholesterol. History of renal insufficiency. Takes as needed oxygen at night 2 L. Patient states that for the last several days she is been increasing short of breath or chest pain yesterday. Cough of green sputum. No hemoptysis. Currently no chest pain. No history of DVT or PE. He has noted that she is retaining fluid in her lower extremities for the last several days. Recently had her Lasix dose doubled from 40 to 80 mg a day. She denies any fever or chills. She is accompanied by her daughter. Physical Examination: Older female vital signs are stable pulse ox 92% on room air no hypoxia. She is in no distress. HEENT exam unremarkable. Neck nontender no JVD. Lungs clear to auscultation bilaterally. Heart regular rhythm no murmur abdomen soft nontender normal bowel sounds no peritoneal signs. Moving all 4 extremities. Trace edema in both lower extremities and feet. Calves nontender without cords. Neurologically she is awake alert moving all 4 extremities. Test Results: KG shows a sinus rhythm rate 80 with a right bundle branch block and LVH. Unchanged from prior EKG. CBC shows a white count 8. Hemoglobin 11.7 which is her baseline. Electrolytes unremarkable potassium 3.3. Normal creatinine and gap. Troponin normal. BNP slightly elevated 174. Chest x-ray portable one view read both by myself the radiologist shows chronic changes but no acute abnormality. Emergency Department Course and Treatment: Female shortness of breath. Differential diagnosis would include COPD, infection and CHF. Versus other etiologies. Repeat exam at 1912 patient is doing well. She wants to be discharged home. Her exam otherwise is unchanged. Treatment Plan: Continue her current medications and follow-up with her primary care physician. Disposition: Discharge Impression: Acute dyspnea due to mild CHF This note was generated with [employer] dictation software. It may contain incorrect words, spelling, and punctuation that were not noted in review of the chart prior to signing ED Disposition - Plan for ED Patient: Referrals: Amadou Vazquez MD [Primary Care Provider] -
[2019-08-19 16:09] LABS: Absolute Lymphocyte Count 2.56 X10^3/uL (0.83-4.51); Absolute Neutrophil Count 2.6 X10^3/uL (2.0-7.7); Basophil# 0.12 X10^3/uL; Basophil% 1.5 % (0-1); Eosinophils% 28.1 % (0-5); Hemoglobin 11.7 g/dL (12.0-15.0); Lymphocyte # 2.56 X10^3/ul (4.0); Lymphocyte % 31.2 % (19-41); Mean Corp Hgb Conc 32.5 g/dL (32-36); Mean Corpuscular Hgb 29.9 pg (27.0-32.0); Mean Corpuscular Volume 92.1 fL (81-99); Mean Platelet Vol. 10.5 fl (6.2-12.0); Monocyte# 0.56 X10^3/uL; Monocyte% 6.8 % (0-10); NRBC Flagged by Analyzer 0 % (0-5); Neutrophil # 2.64 X10^3/uL (2.7-7.7); Neutrophil % 32.2 % (47-70); POSITIVE DIFFERENTIAL YES; Platelet Count 213 K/mm3 (150-450); RBC Distribution Width CV 13.7 % (11.6-14.6); RBC Distribution Width SD 46.4 fl (35.1-43.9); Red Blood Count 3.91 M/mm3 (4.2-5.4); White Blood Count 8.2 K/mm3 (4.4-11.0)
[2019-08-19 16:14] LABS: Eosinophil# 2.31 X10^3/uL
[2019-08-19 16:15] LABS: Differential Indicated SCAN CRITERIA MET
[2019-08-19 16:25] LABS: Anion Gap 7 (5-15); BUN 19 mg/dL (7-18); BUN/Creat Ratio 19.9 RATIO (10-20); Calcium,Total 8.8 mg/dL (8.5-10.1); Chloride 109 mmol/L (98-107); Creatinine, Serum 0.95 mg/dL (0.55-1.02); EST Glomerular Filtration Rate 60 mL/min (>60); Est Glom Filt Rate - Afr Amer 72 mL/min (>60); Estimated Creatinine Clearance 43.48 ml/min; Glucose 125 mg/dL (74-106); Potassium 3.3 mmol/L (3.5-5.1); Sodium Level 144 mmol/L (136-145)
[2019-08-19 16:32] LABS: Differential Comment SCANNED
[2019-08-19 16:53] LABS: BNP,B-Type NATRIURETIC PEPTIDE 174.7 pg/mL (0-100)
[2019-08-19 17:34] VITALS: BP 149/86; PULSE 58; RESP 16; O2SAT 96
--- NOTE | 2019-08-19 19:15 | ED.DEP ---
ED Disposition - Plan for ED Patient: Disposition: Home or Assisted Living Instructions: CHF, General Referrals: Amadou Vazquez MD [Primary Care Provider] - As soon as possible Additional Instructions: Continue current medications and your current Lasix dose. Return if feeling worse. Follow-up with your doctor.
[2019-08-19 19:24] VITALS: BP 158/85; PULSE 61; O2SAT 95
[2019-08-21 10:01] LABS: Pathologist Review Reviewed
== END 2019-08-19 19:30 | disposition home or self-care (01) ==
PROVIDERS: Emergency Provider Emergency Medicine; Family Provider Internal Medicine; PCP Internal Medicine
DX: I11.0 Hypertensive heart disease with heart failure (principal); I50.9 Heart failure, unspecified; I45.10 Unspecified right bundle-branch block; J44.9 Chronic obstructive pulmonary disease, unspecified; E78.00 Pure hypercholesterolemia, unspecified; Z79.02 Long term (current) use of antithrombotics/antiplatelets; Z99.81 Dependence on supplemental oxygen; Z79.82 Long term (current) use of aspirin; Z79.899 Other long term (current) drug therapy; Z86.73 Personal history of transient ischemic attack (TIA), and cerebral infarction without residual deficits
CPT/HCPCS: 71045; 80048; 83880; 84484; 85025; 93005; 99285; A4216

== ENCOUNTER 2020-03-29 12:45 | Emergency (ER) | payer MEDICARE, MEDICAID, SELFPAY ==
[2019-12-07 13:57] VITALS: BMI 30.8
[2020-03-29 12:46] VITALS: BP 143/115; PULSE 66; RESP 18; TEMP 36.2; O2SAT 94; BMI 29.9
--- NOTE | 2020-03-29 12:56 | RAD_ITS ---
STUDY: X-RAY - LEFT KNEE REASON FOR EXAM: Female, 84 years old. FALL TECHNIQUE: 4 view(s) of the knee. COMPARISON: None. FINDINGS: There is demineralization of the visualized distal femur. There is demineralization of the tibia and fibula. Normal proximal tibiofibular articulation. There is moderate degenerative arthrosis of the medial femorotibial compartment with moderate joint space narrowing. Normal lateral femorotibial compartment. There is mild degenerative arthrosis of the patellofemoral articulation. There are atherosclerotic calcifications. RAD/Knee 3 Views IMPRESSION: Degenerative arthrosis. Electronically Signed: Artie Chester, at 13:38 EDT , Service support ,
--- NOTE | 2020-03-29 12:56 | RAD_ITS ---
STUDY: X-RAY - LUMBAR SPINE REASON FOR EXAM: Female, 84 years old. FALL TECHNIQUE: 3 view(s) of the lumbar spine were obtained. COMPARISON: Comparison is made with prior examination dated March 15, 2018. FINDINGS: Normal lumbar lordosis. There is a minimal dextroscoliosis of the lumbar spine. Minimal anterior listhesis of L4 on L5 due to facet joint osteoarthritis. There is multilevel endplate spondylosis of the lumbar vertebrae. There is multi-level degenerative disc disease with multi-level disc space narrowing. There is atherosclerotic calcification of the abdominal aorta without a demonstrated aneurysm. RAD/Lumbar Spine 2 or 3 Views IMPRESSION: Degenerative changes of the spine, as detailed above. Electronically Signed: Artie Chester, at 13:43 EDT , Service support ,
--- NOTE | 2020-03-29 12:57 | ED.DCSUM_ITS ---
History of Present Illness Informant: Patient Occurred: Yesterday Mechanism/Context: Slip Usually ambulates: Without assistance Location: low back/left knee Quality of Pain: Sharp Current Severity: Moderate Maximum Severity: Severe Worsened by: walking, movement Relieved by: rest Associated Symptoms: Negative for: Parasthesias, Weakness, Loss of function, Inability to ambulate, Loss of consciousness, Amnesia Length of loss of consciousness: none Narrative: 84-year-old female history of CAD CHF presents to the emergency department with low back pain and left knee pain after mechanical fall yesterday. She was mopping, at her home spilled some water and slipped and fell injuring her left knee and her lower back. She had no prodromal symptoms. She did not hit her head or lose consciousness. She denies any other injuries. She is ambulatory. No numbness or tingling. No weakness. She is on Plavix. Tetanus Immunization: Unknown Prior similar symptoms: No Recent Illness/Hospitalization: No <Brian Oconnell - Last Filed: 03/29/20 13:49> <Frederick Bautista - Last Filed: 03/29/20 13:52> Chief Complaint: Fall Past Medical History Prior records reviewed: Yes Past Medical History: - - CVA, CHF, HTN, HPL Surgical History: appendectomy, hysterectomy, - - Craniotomy s/p trauma. Breast lumpectomy Smoking Status: Never smoker Alcohol: None Drugs: None - Family History Maternal Family History: Family History (Last Reviewed 12/07/19 @ 14:41 by RAT Tang) Sister Heart disease Family History: Reports: Cancer, Diabetes, Stroke - Stroke and aneurysm in mother Paternal Family History: Family History (Last Reviewed 12/07/19 @ 14:41 by ART Tang) Sister Heart disease Family History: Reports: Cancer, Diabetes, No pertinent history Sibling Family History: Family History (Last Reviewed 12/07/19 @ 14:41 by ART Tang) Sister Heart disease Family History: Reports: Cancer, Diabetes <Brian Oconnell - Last Filed: 03/29/20 13:49> - Family History Maternal Family History: Family History (Last Reviewed 12/07/19 @ 14:41 by ART Tang) Sister Heart disease Paternal Family History: Family History (Last Reviewed 12/07/19 @ 14:41 by ART Tang) Sister Heart disease Sibling Family History: Family History (Last Reviewed 12/07/19 @ 14:41 by ART Tang) Sister Heart disease <LilyFrederick - Last Filed: 03/29/20 13:52> - Allergies and Home Meds Allergies/Adverse Reactions: Allergies adhesive Allergy (Verified 03/29/20 12:46) Unknown adhesive tape amitriptyline Allergy (Verified 03/29/20 12:46) Unknown codeine Allergy (Verified 03/29/20 12:46) Unknown hydrocodone bitartrate [From Vicodin] Allergy (Verified 03/29/20 12:46) Hives Iodinated Contrast Media [Iodinated Contrast Media - IV Dye] Allergy (Verified 03/29/20 12:46) Unknown naproxen Allergy (Verified 03/29/20 12:46) Unknown Penicillins Allergy (Verified 03/29/20 12:46) Rash phenytoin sodium [From Dilantin] Allergy (Verified 03/29/20 12:46) Unknown phenytoin sodium extended [From Dilantin] Allergy (Verified 03/29/20 12:46) Unknown silicone Allergy (Verified 03/29/20 12:46) Unknown Primary Care Physician: Amadou Vazquez MD [Primary Care Provider] - 1 Week if not improving Review of Systems All systems negative except as indicated General: Denies: Chills, Fever, Malaise Eyes: Denies: Visual changes - bilaterally, Blurred Vision - bilaterally, Diplopia ENT: Denies: Rhinorrhea, Sore throat Cardiovascular: Denies: Chest pain, Palpitations, Heart racing Respiratory: Denies: Dyspnea, Cough, Sputum Gastrointestinal: Denies: Abdominal pain, Nausea, Vomiting, Diarrhea Genitourinary: Denies: Dysuria, Hematuria, Frequency Musculoskeletal: Reports: Back pain, Swelling, Extremity Pain. Denies: Myalgias, Arthralgias, Neck pain Skin: Denies: Rash, Abscess, Abrasions, Wounds Neurological: Denies: Headache, Weakness, Parasthesia, Numbness Hematologic: Reports: Easy bruising. Denies: Easy bleeding <Brian Oconnell - Last Filed: 03/29/20 13:49> Physical Exam Vital Signs/Narrative: Vital Signs Temp Pulse Resp BP Pulse Ox 03/29/20 12:46 97.2 F L 66 18 143/115 H 94 Inital Vital Signs reviewed: Yes General: Well nourished, Well developed Head: Normocephalic, Atraumatic Eyes: Perrl, EOMI ENT: TM's clear, No hemotympanum or drainage, No trauma. Negative for: Nasal trauma, Nasal septal hematoma Neck: Nontender, Full ROM. Negative for: Spinal Tenderness, Paraspinal Tenderness Cardiovascular: Regular rate, Regular rhythm Respiratory: No distress, CTA bilaterally, Chest nontender Abdomen: Soft, Nontender, Nondistended, Normal bowel sounds, No masses Back: Paraspinal Tenderness, Negative SLR - Right, Negative SLR - Left. Negative for: CVA Tenderness - Right, CVA Tenderness - Left, Spinal Tenderness Extremeties: Mild swelling of the left knee. no bruising and skin is intact. She has normal range of motion actively. She has mild tenderness on palpation anteriorly. patient is neurovascular intact distally. she is able to stand up and bear weight. Mild bruising left shoulder. skin intact. normal AROM. neurovascularly intact distally. Skin: Normal color, No rash, No Trauma Neurological: Alert, Oriented x3 Psychological: Normal affect, Normal Mood <Brian Oconnell - Last Filed: 03/29/20 13:49> Vital Signs/Narrative: Vital Signs Temp Pulse Resp BP Pulse Ox 03/29/20 12:46 97.2 F L 66 18 143/115 H 94 <Frederick Bautista - Last Filed: 03/29/20 13:52> Diagnostic/Tx/Re-eval - Medical Decision Making Patient was given Tylenol for pain. X-rays of the left knee, left shoulder, and lumbar spine are unremarkable no acute findings were noted. Patient is ambulatory. Well-appearing. She was reassured. I advised her to rest and ice and elevate. She has Tylenol to take at home for pain and does not require further analgesia. She will be discharged home with her son who she lives with. She was advised to return for worsening symptoms otherwise follow- up with her primary care physician. Impressions Knee X-Ray 03/29/20 12:56 IMPRESSION: Degenerative arthrosis. Electronically Signed: Artie Chester, at 13:38 EDT , Service support , Lumbar Spine X-Ray 03/29/20 12:56 IMPRESSION: Degenerative changes of the spine, as detailed above. Electronically Signed: Artie Chester, at 13:43 EDT , Service support , Shoulder X-Ray 03/29/20 13:01 IMPRESSION: Calcific tendinitis. Electronically Signed: Artie Chester, at 13:42 EDT , Service support , 03/29/20 12:56 Knee 3 Views [RAD] Stat Lumbar Spine 2 or 3 Views [RAD] Stat 03/29/20 13:01 Xray Shoulder [Shoulder min 2 Views] [RAD] Stat <Brian Oconnell - Last Filed: 03/29/20 13:49> - Medical Decision Making Patient was seen and evaluated. Plain films do not show evidence of acute fracture. The patient is able to ambulate. She has no red flag symptoms. At this point, she will be discharged home. <Frederick Bautista - Last Filed: 03/29/20 13:52> ED Disposition <Brian Oconnell - Last Filed: 03/29/20 13:49> <Frederick Bautista - Last Filed: 03/29/20 13:52> - Plan for ED Patient: Disposition: Home or Assisted Living Diagnosis: Contusion of left shoulder, Contusion of left knee, Acute lumbar myofascial strain, Cerebrovascular disease, Benign essential HTN, COPD (chronic obstructive pulmonary disease), HLD (hyperlipidemia) Instructions: ED LUMBAR SPRAIN/STRAIN, ED EXTREMITY CONTUSION Lower, ED EXTREMITY CONTUSION Upper Referrals: Amadou Vazquez MD [Primary Care Provider] - 1 Week if not improving
--- NOTE | 2020-03-29 13:01 | RAD_ITS ---
STUDY: X-RAY - LEFT SHOULDER REASON FOR EXAM: Female, 84 years old. FALL TECHNIQUE: 4 view(s) of the shoulder. COMPARISON: None. FINDINGS: Normal glenohumeral articulation. Normal acromioclavicular joint. Normal acromion. Normal humeral head and visualized proximal humerus. There is periarticular soft tissue calcification consistent with a calcific tendinitis. Normal visualized pulmonary apex. RAD/Shoulder min 2 Views IMPRESSION: Calcific tendinitis. Electronically Signed: Artie Chester, at 13:42 EDT , Service support ,
[2020-03-29] MEDS: Acetaminophen 325 MG Tablet 650 MG PO (13:04)
[2020-03-29 14:34] VITALS: PULSE 81; RESP 18; O2SAT 100
== END 2020-03-29 14:38 | disposition home or self-care (01) ==
PROVIDERS: Emergency Provider Physician Assistant Medical; PCP Internal Medicine
DX: S40.012A Contusion of left shoulder, initial encounter (principal); S80.02XA Contusion of left knee, initial encounter; S39.012A Strain of muscle, fascia and tendon of lower back, initial encounter; W01.0XXA Fall on same level from slipping, tripping and stumbling without subsequent striking against object, initial encounter; Y93.E5 Activity, floor mopping and cleaning; Y92.009 Unspecified place in unspecified non-institutional (private) residence as the place of occurrence of the external cause; I25.10 Atherosclerotic heart disease of native coronary artery without angina pectoris; I11.0 Hypertensive heart disease with heart failure; I50.9 Heart failure, unspecified; J44.9 Chronic obstructive pulmonary disease, unspecified; E78.5 Hyperlipidemia, unspecified; Z79.02 Long term (current) use of antithrombotics/antiplatelets; Z79.82 Long term (current) use of aspirin; Z79.899 Other long term (current) drug therapy; Z86.73 Personal history of transient ischemic attack (TIA), and cerebral infarction without residual deficits
CPT/HCPCS: 72100; 73030; 73562; 99283

== ENCOUNTER 2020-06-13 13:56 | Inpatient (IN) | payer MEDICARE, MEDICAID, SELFPAY ==
[2020-05-07 09:29] VITALS: BMI 30.7
[2020-06-13] VITALS (8 sets, daily range): BP systolic 110–152; BP diastolic 60–89; PULSE 58–95; RESP 16–26; TEMP 36.7–37.1; O2SAT 95–100; BMI 30.5; BMI 30.1
--- NOTE | 2020-06-13 14:19 | CT_ITS ---
STUDY: CT BRAIN WITHOUT CONTRAST REASON FOR EXAM: Female, 84 years old. INCREASED WEAKNESS, CONFUSION, HTN, CHF, DEMENTIA, CVA,craniotomy 09/2009 for subdural hemorrhage, RADIATION DOSAGE (If Supplied By Facility): CTDIvol = ( 44.99 ) mGy, DLP = ( 812.98 ) mGycm TECHNIQUE: Transaxial CT imaging of the brain was performed without administration of intravenous contrast material. Individualized dose optimization techniques were used for this CT. COMPARISON: 01/31/2019 FINDINGS: Normal soft tissue structures. Healed right parietal craniotomy. There is moderate cerebral atrophy with widening of the extra-axial spaces and ventricular dilatation. There are areas of decreased attenuation within the white matter tracts of the supratentorial brain, consistent with microvascular disease changes. Normal basal ganglia and thalami. Normal brainstem. Normal cerebellum. There is no intracranial hemorrhage. There are no findings of an acute ischemic infarction. Normal visualized paranasal sinuses. CT/Brain/Head without Contrast IMPRESSION: Chronic involutional changes of the brain. Electronically Signed: Ariel Stein MD at 16:13 EDT Tel , Service support ,
--- NOTE | 2020-06-13 14:20 | EKG12_ITS ---
Test Reason : WEAKNESS Blood Pressure : / mmHG Vent. Rate : 071 BPM Atrial Rate : 071 BPM P-R Int : 154 ms QRS Dur : 136 ms QT Int : 444 ms P-R-T Axes : -16 -32 216 degrees QTc Int : 482 ms Normal sinus rhythm Left axis deviation Right bundle branch block Voltage criteria for left ventricular hypertrophy Abnormal ECG Confirmed by CYNDI LAWRENCE ([id number]), desk editor ESSIE EDUARDO ([id number]) on 06/17/2020 11:48:15 AM Referred By: Confirmed By:CYNDI LAWRENCE
--- NOTE | 2020-06-13 14:23 | ED.DCSUM_ITS ---
- ER Visit Summary Date of Service: 06/13/20 Chief Complaint: Generalized weakness History of Present Illness: The patient is a 84 F presenting with generalized weakness. Patient states she has been ill for the past 2 weeks. Family was concerned about increasing weakness and confusion. She states she had difficulty ambulating today secondary to weakness. She states her son had to help her out of bed. She states her grandson has been ill with a viral illness but tested negative for COVID. She has had rhinorrhea, shortness of breath, cough. She also has nausea, vomiting, diarrhea. She denies abdominal pain. Denies chest pain. She has diffuse myalgias. She denies fever. Denies recent fall or syncope. Per EMS pulse ox was 86% on room air. Physical Examination: Respiratory rate 26. Pulse ox 97% on nasal cannula. Patient is afebrile. Alert no acute distress. HEENT exam is unremarkable. Neck is supple. Lungs are diminished bilaterally. Heart is regular rate and rhythm. Abdomen is soft nontender nondistended. No guarding or rebound Extremities are unremarkable. Skin is warm and dry. No focal neurologic deficit. Remainder of exam is unremarkable. Emergency Department Course and Treatment: EKG is sinus rhythm rate of 71 with right bundle branch block, LVH, similar to previous. Chest x-ray shows no acute process. CT head shows chronic changes. CBC shows white count 11.8. Chemistries show potassium 3.2. Liver enzymes show AST 14, lipase 66. Urinalysis shows positive nitrite, 10-25 white blood cells, 10-25 red blood cells. Troponin is negative. COVID is negative. Urine culture was sent. She was given Rocephin IV. Discussed with the hospitalist for admission. Disposition: Admission Impression: UTI, generalized weakness This note was generated with [employer] dictation software. It may contain incorrect words, spelling, and punctuation that were not noted in review of the chart prior to signing ED Disposition - Plan for ED Patient: Referrals: Amadou Vazquez MD [NON-STAFF] -
[2020-06-13 14:56] LABS: Absolute Lymphocyte Count 2.07 X10^3/uL (0.83-4.51); Absolute Neutrophil Count 7.2 X10^3/uL (2.0-7.7); Basophil# 0.11 X10^3/uL; Basophil% 0.9 % (0-1); Eosinophil# 1.44 X10^3/uL; Eosinophils% 12.3 % (0-5); Hematocrit 37.7 % (37-47); Hemoglobin 12.1 g/dL (12.0-15.0); Lymphocyte # 2.07 X10^3/ul (4.0); Lymphocyte % 17.6 % (19-41); Mean Corp Hgb Conc 32.1 g/dL (32-36); Mean Corpuscular Hgb 29.7 pg (27.0-32.0); Mean Corpuscular Volume 92.6 fL (81-99); Mean Platelet Vol. 10.3 fl (6.2-12.0); Monocyte# 0.94 X10^3/uL; NRBC Flagged by Analyzer 0 % (0-5); Neutrophil # 7.15 X10^3/uL (2.7-7.7); Neutrophil % 60.9 % (47-70); POSITIVE COUNT YES; Platelet Count 201 K/mm3 (150-450); RBC Distribution Width CV 13.3 % (11.6-14.6); RBC Distribution Width SD 45.4 fl (35.1-43.9); Red Blood Count 4.07 M/mm3 (4.2-5.4); White Blood Count 11.8 K/mm3 (4.4-11.0)
[2020-06-13 15:01] LABS: Differential Indicated SCAN CRITERIA MET
[2020-06-13] MEDS: Ondansetron 4 MG/2 ML Vial IV (15:03)
[2020-06-13] MEDS: 0.9% Normal Saline 1,000 ML 150 ML IV (15:03)
--- NOTE | 2020-06-13 15:04 | NURSING ---
CHEMISTRIES HEMOLIZED
--- NOTE | 2020-06-13 15:05 | RAD_ITS ---
STUDY: X-RAY CHEST REASON FOR EXAM: Female, 84 years old. increased weakness related to 2 week long illness, hx COPD, cough x 2 days, nausea, diarrhea, dizziness TECHNIQUE: Single AP portable view of the chest. COMPARISON: 08/19/2019 FINDINGS: The lungs are clear and expanded. There is no demonstrated pleural abnormality. Normal size heart. Normal mediastinum and [place]. Normal visualized pulmonary arteries. Normal visualized aortic arch and descending thoracic aorta. Normal visualized thoracic spine. Normal visualized ribs, clavicles, and shoulders. There is no demonstrated abnormality of the visualized soft tissue structures of the upper abdomen. RAD/Chest 1 View (Portable) IMPRESSION: Normal x-ray examination of the chest. Electronically Signed: Ariel Stein MD at 15:36 EDT Tel , Service support ,
[2020-06-13 16:29] LABS: ALB/GLOB Ratio 0.6 RATIO (0.9-2.4); AST(SGOT) 14 U/L (15-37); Alanine Aminotransfer ALT/SGPT 14 U/L (13-56); Albumin, Serum 2.6 g/dL (3.2-5.0); Alkaline Phosphatase 83 U/L (45-117); Anion Gap 5 (5-15); BUN 14 mg/dL (7-18); BUN/Creat Ratio 15.4 RATIO (10-20); Calcium,Total 7.5 mg/dL (8.5-10.1); Chloride 109 mmol/L (98-107); Creatinine, Serum 0.91 mg/dL (0.55-1.02); EST Glomerular Filtration Rate 63 mL/min (>60); Est Glom Filt Rate - Afr Amer 76 mL/min (>60); Estimated Creatinine Clearance 44.62 ml/min; Globulin 4.2 g/dL (2.2-4.2); Glucose 96 mg/dL (74-106); Lipase 66 U/L (73-393); Potassium 3.2 mmol/L (3.5-5.1); Protein, Total 6.8 g/dL (6.4-8.2); Sodium Level 137 mmol/L (136-145)
[2020-06-13 16:55] LABS: Mucous, Urine 0 SEEN /hpf (<or=2+)
[2020-06-13 17:01] LABS: Color, Urine Yellow (Yellow); Glucose, Dipstick Normal (Normal); Ketone-Dipstick Negative (Negative); Leukocyte Esterase-Dipstick 100 /ul (Negative); Nitrite-Dipstick Positive (Negative); Occult Blood-Urine 150 /ul (Negative); Protein-Dipstick Negative (Negative); Urine Bilirubin Dipstick Negative (Negative); Urine Clarity Cloudy (Clear); Urine Urobilinogen Normal (Normal)
[2020-06-13 17:20] LABS: Red Blood Cells-Urine 10-25 SEEN /hpf (0-5); Squamous Epithelial Cells - UA 0-5 SEEN /hpf (5-10); White Blood Cells 10-25 SEEN /hpf (0-5)
[2020-06-13 17:21] LABS: Amorphous Sediment 3+ PHOS; Bacteria RARE /hpf (None Seen)
--- NOTE | 2020-06-13 17:52 | NURSING ---
MED SURG KOTSONIS UTI, GENERALIZED WEAKNESS
--- NOTE | 2020-06-13 18:03 | HP.PCM_ITS ---
<Nathan Ny - Last Filed: 06/13/20 18:03> Problem List (1) UTI (urinary tract infection) Status: Acute (2) Chronic systolic (congestive) heart failure Status: Chronic (3) COPD (chronic obstructive pulmonary disease) Status: Chronic (4) Asthma Status: Chronic (5) Benign essential HTN Status: Chronic (6) Cerebrovascular disease Status: Chronic Comment: reported 2 strokes mild left facial droop (7) Gastroesophageal reflux disease Status: Chronic (8) HLD (hyperlipidemia) Status: Chronic (9) Acute ischemic stroke Status: Resolved History of Present Illness Date of Admission: 06/13/20 Chief Complaint: weakness The patient is a 84 year old F with pmhx of frequent UTIs, bladder hernia, chronic urinary incontinence, HTN, HLD, GERD, chronic hypoxic resp failure due to COPD and systolic CHF, who presents to the ER from home with multiple complaints. She has felt ill for about two weeks. She has become weaker to the point where she now states she cannot walk. She has had occasional nausea no vomiting, one episode of abdominal discomfort today. She had some burning with urination a week ago. She had one episode where she felt like she was burning up, but no chills. She has chronic diarrhea, chronic SOB, and chronic cough which are unchanged. In the ER she appears to have a UTI and states she frequently has UTIs and kidney infections. Currently no flank pain. [] Past Medical History Past Medical History (Chronic Problems): Chronic Problems (Last Reviewed 05/07/20 @ 09:50 by ART Tang) Chronic systolic (congestive) heart failure (Chronic) Angina pectoris (Chronic) COPD (chronic obstructive pulmonary disease) (Chronic) Intellectual disability (Chronic) Edema (Chronic) Asthma (Chronic) Benign essential HTN (Chronic) Cerebrovascular disease (Chronic) reported 2 strokes mild left facial droop Gastroesophageal reflux disease (Chronic) HLD (hyperlipidemia) (Chronic) Medical History: Medical History (Last Reviewed 05/07/20 @ 09:50 by ART Tang) Dilatation of aorta (Acute) I77.819 Chronic systolic (congestive) heart failure (Resolved) I50.22 Angina pectoris (Chronic) I20.9 COPD (chronic obstructive pulmonary disease) (Chronic) J44.9 Fall (Resolved) W19.XXXA Encephalopathy (Resolved) G93.40 Intellectual disability (Chronic) F79 Edema (Chronic) R60.9 Asthma (Chronic) J45.909 Benign essential HTN (Chronic) I10 Cerebrovascular disease (Chronic) I67.9 reported 2 strokes mild left facial droop Gastroesophageal reflux disease (Chronic) K21.9 HLD (hyperlipidemia) (Chronic) E78.5 Acute ischemic stroke (Resolved) I63.9 Allergic rhinitis J30.9 History of stroke Z86.73 Insomnia G47.00 Overactive bladder N32.81 Urinary incontinence R32 Acute cystitis (Resolved) N30.00 Decreased level of consciousness (Resolved) R40.4 Hallucinations (Resolved) R44.3 Hypokalemia (Resolved) E87.6 Left hip pain (Resolved) M25.552 Lethargy (Resolved) R53.83 Shortness of breath (Resolved) R06.02 Subdural hematoma S06.5X9A From Fall Urinary tract infection (Resolved) N39.0 Vitamin D deficiency (Resolved) E55.9 Allergies adhesive Allergy (Verified 06/13/20 14:03) Unknown adhesive tape amitriptyline Allergy (Verified 06/13/20 14:03) Unknown codeine Allergy (Verified 06/13/20 14:03) Unknown hydrocodone bitartrate [From Vicodin] Allergy (Verified 06/13/20 14:03) Hives Iodinated Contrast Media [Iodinated Contrast Media - IV Dye] Allergy (Verified 06/13/20 14:03) Unknown naproxen Allergy (Verified 06/13/20 14:03) Unknown Penicillins Allergy (Verified 06/13/20 14:03) Rash phenytoin sodium [From Dilantin] Allergy (Verified 06/13/20 14:03) Unknown phenytoin sodium extended [From Dilantin] Allergy (Verified 06/13/20 14:03) Unknown silicone Allergy (Verified 06/13/20 14:03) Unknown Home Medications: Ambulatory Orders Medication Instructions Recorded Atenolol 50 mg PO DAILY 01/31/19 Atorvastatin Calcium 10 mg PO DAILY 01/31/19 Clopidogrel Bisulfate [Plavix] 75 mg PO DAILY 01/31/19 Loratadine [Claritin] 10 mg PO DAILY 01/31/19 Omeprazole [Prilosec] 20 mg PO DAILY 01/31/19 Oxybutynin Chloride [Oxybutynin 10 mg PO DAILY 01/31/19 Chloride ER] fluticasone 250 mcg-salmeterol 50 1 inh INHALATION BID 05/03/19 mcg/dose blistr powdr for inhalation aspirin 81 mg tablet,delayed 81 mg PO DAILY #1 tab 05/04/19 release isosorbide mononitrate 60 mg 60 mg PO BID #60 tab 08/08/19 tablet,extended release 24 hr losartan 100 mg tablet 100 mg PO DAILY #30 tab 09/01/19 melatonin 5 mg capsule 5 mg PO QHS PRN 09/01/19 potassium chloride 20 mEq 20 meq PO BID tab 09/01/19 tablet,extended release(part/cryst) nitroglycerin 0.4 mg sublingual 0.4 mg SUBLINGUAL Q5-15M PRN #25 12/07/19 tablet tab furosemide 40 mg tablet 40 mg PO DAILY tab 05/07/20 Albuterol Sulfate [Albuterol 1 - 2 puff IH Q4H PRN PRN 06/13/20 Sulfate HFA] Amlodipine Besylate 5 mg PO DAILY 06/13/20 Cholecalciferol (VIT D3) [Vitamin 2,000 unit PO DAILY 06/13/20 D] Loperamide 06/13/20 Phenazopyridine [Pyridium] 200 mg PO TID PRN PRN 06/13/20 Surgical History: Surgical History (Last Reviewed 05/07/20 @ 09:50 by ART Tang) History of brain surgery Z98.890 History of breast biopsy Z98.890 History of hysterectomy Z90.710 History of umbilical hernia repair Z98.890, Z87.19 S/P ORIF (open reduction internal fixation) fracture Onset Date: ~05/19/15 Z98.890, Z87.81 left hip, 05/19/15, Dr Prescott, [facility] Surgical History: appendectomy, hysterectomy, - - Craniotomy s/p trauma. Breast lumpectomy Psychiatric History: Anxiety [employer] LE[employer] History: No pertinent [employer] LEAD [employer]EL[employer] history Lives: With Family Smoking Status: Never smoker Tobacco Use: Non-smoker Alcohol: None Drugs: None - *Family History Maternal Family History: Family History (Last Reviewed 06/13/20 @ 18:09 by ART Chaves) Sister Heart disease History Items: Cancer, Diabetes, Stroke - Stroke and aneurysm in mother Paternal Family History: Family History (Last Reviewed 06/13/20 @ 18:09 by ART Chaves) Sister Heart disease History Items: Cancer, Diabetes, No pertinent history Sibling Family History: Family History (Last Reviewed 06/13/20 @ 18:09 by ART Chaves) Sister Heart disease History Items: Cancer, Diabetes Review of Systems Constitutional: Denies: Chills, Fever, Weight Change HEENT: Denies: Head Aches, Sinus Congestion, Sinus Drainage Cardiovascular: Denies: Chest Pain, Palpitations Respiratory: Denies: Cough, Shortness of breath at rest, Sputum production Gastrointestinal: Denies: Abdominal Pain, Nausea, Vomiting Genitourinary: Denies: Dysuria Musculoskeletal: Denies: Joint Pain, Joint Tenderness Skin: Denies: Rash, Wounds Neurological: Denies: Numbness, Tingling, Focal weakness Psychiatric: Denies: Anxiety, Depression, Homicidal Ideations, Suicidal Ideations Hematologic/ Lymphatic: Denies: Easy Bruising, Easy Bleeding VTE Information - Inpt Only VTE Present on Admission: No VTE Mechan Device Prophylaxis: None VTE Pharm Prophylaxis ordered?: Yes Patient Problems: Active and Suspected Problems (Last Reviewed 05/07/20 @ 09:50 by ART Tang) UTI (urinary tract infection) (Acute) - Physical Exam Vitals/I&O's: Vital Signs Temp Pulse Resp BP Pulse Ox 98.7 F 65 17 117/69 100 06/13/20 16:04 06/13/20 16:04 06/13/20 16:04 06/13/20 16:04 06/13/20 16:04 Oxygen Flow Rate (L/min) 3 Oxygen Delivery Method Nasal Cannula Weight: 189 lb 6.033 oz Body Mass Index (BMI) 30.5 Finger Stick Blood Glucose 111 General: Alert, Oriented x3, Cooperative HEENT: Atraumatic, PERRLA, EOMI, Normocephalic Neck: Supple, No JVD, Negative Carotid Bruits Lungs: Clear to auscultation, Normal air movement Cardiovascular: Regular rate, No murmurs Abdomen: Bowel Sounds Present, Soft, Non Tender Extremities: No edema, Capillary Refill Less than 3 Seconds Skin: No rashes, No breakdown Musculoskeletal: No Tenderness to Palpation of Joints or Extremities Neurological: Cranial nerves II-XII grossly intact Psych/Mental Status: Normal Affect, Appropriate Laboratory Results 06/13/20 14:35: COVID-19 ([facility]) Negative 06/13/20 14:47: WBC 11.8 H, RBC 4.07 L, Hgb 12.1, Hct 37.7, MCV 92.6, MCH 29.7, MCHC 32.1, RDW Std Deviation 45.4 H, RDW Coeff of [place] 13.3, Plt Count 201, MPV 10.3, Immature Gran % (Auto) 0.300, Neut % (Auto) 60.9, Lymph % (Auto) 17.6 L, [place] % (Auto) 8.0, Eos % (Auto) 12.3 H, Baso % (Auto) 0.9, Absolute Neuts (auto) 7.2, Absolute Lymphs (auto) 2.07, Nucleated RBC % 0 06/13/20 14:47: Sodium Cancelled, Potassium Cancelled, Chloride Cancelled, Carbon Dioxide Cancelled, Anion Gap Cancelled, BUN Cancelled, Creatinine Cancelled, Estim Creat Clear Calc Cancelled, Est GFR (MDRD) Af Amer Cancelled, Est GFR (MDRD) Non-Af Cancelled, BUN/Creatinine Ratio Cancelled, Glucose Cancelled, Calcium Cancelled, Total Bilirubin Cancelled, AST Cancelled, ALT Cancelled, Alkaline Phosphatase Cancelled, Troponin I Cancelled, Total Protein Cancelled, Albumin Cancelled, Globulin Cancelled, Albumin/Globulin Ratio Cancelled, Lipase Cancelled 06/13/20 16:01: Sodium 137, Potassium 3.2 L, Chloride 109 H, Carbon Dioxide 23.0, Anion Gap 5, BUN 14, Creatinine 0.91, Estim Creat Clear Calc 44.62, Est GFR (MDRD) Af Amer 76, Est GFR (MDRD) Non-Af 63, BUN/Creatinine Ratio 15.4, Glucose 96, Calcium 7.5 L, Total Bilirubin 0.50, AST 14 L, ALT 14, Alkaline Phosphatase 83, Troponin I < 0.015, Total Protein 6.8, Albumin 2.6 L, Globulin 4.2, Albumin/Globulin Ratio 0.6 L, Lipase 66 L 06/13/20 16:44: Urine Color Yellow, Urine Clarity Cloudy, Urine pH 8.0, Ur Specific [place] 1.010, Urine Protein Negative, Urine Glucose (UA) Normal, Urine Ketones Negative, Urine Occult Blood 150 H, Urine Nitrite Positive H, Urine Bilirubin Negative, Urine Urobilinogen Normal, Ur Leukocyte Esterase 100 H, Urine RBC 10-25 SEEN, Urine WBC 10-25 SEEN, Ur Squamous Epith Cells 0-5 SEEN, Amorphous Sediment 3+ PHOS, Urine Bacteria RARE, Urine Mucus 0 SEEN Current Medications Sodium Chloride () 1,000 mls @ 150 mls/hr IV .[id number] [facility] Last Admin: 06/13/20 15:03 Dose: 150 mls/hr Documented by: Assessment/Plan All Active Problems (Last Reviewed 05/07/20 @ 09:50 by ART Tang) UTI (urinary tract infection) (Acute) Dilatation of aorta (Acute) Fall (Resolved) Encephalopathy (Resolved) Acute ischemic stroke (Resolved) Acute cystitis (Resolved) Decreased level of consciousness (Resolved) Hallucinations (Resolved) Hypokalemia (Resolved) Left hip pain (Resolved) Lethargy (Resolved) Shortness of breath (Resolved) Urinary tract infection (Resolved) Vitamin D deficiency (Resolved) 1. Acute UTI - In the past cultures she has had E coli, Aerococcus, Strep agalactiae, Enterococcus faecalis, Proteus vulgaris. Start E coli and await final cultures. + UA, + WBC elevation. Frequent UTIs likely due to underlying bladder issues such as hx of bladder hernia and chronic incontinence. She should follow up with urology and consider prophylactic antibiotics. 2. Chronic hypoxic respiratory failure 2/2 COPD, chronic systolic CHF - no exacerbation. Continue home meds, incentive spirometer, o2 as needed. Avoid overhydration. 3. Hx CVAs - asa/statin 4. HTN - stable 5. HLD - statin 6. GERD - PPI DVT ppx: lovenox DC Planning: PTOT. Cant walk. Lives with son. May need placement. This patient was seen by Nathan Ny PA-C under the supervision of Dr. Ford. <Ronald Ford F - Last Filed: 06/13/20 18:34> History of Present Illness The patient is a 84 year old F [] Past Medical History Medical History: Medical History (Last Reviewed 05/07/20 @ 09:50 by ART Tang) Dilatation of aorta (Acute) I77.819 Chronic systolic (congestive) heart failure (Resolved) I50.22 Angina pectoris (Chronic) I20.9 COPD (chronic obstructive pulmonary disease) (Chronic) J44.9 Fall (Resolved) W19.XXXA Encephalopathy (Resolved) G93.40 Intellectual disability (Chronic) F79 Edema (Chronic) R60.9 Asthma (Chronic) J45.909 Benign essential HTN (Chronic) I10 Cerebrovascular disease (Chronic) I67.9 reported 2 strokes mild left facial droop Gastroesophageal reflux disease (Chronic) K21.9 HLD (hyperlipidemia) (Chronic) E78.5 Acute ischemic stroke (Resolved) I63.9 Allergic rhinitis J30.9 History of stroke Z86.73 Insomnia G47.00 Overactive bladder N32.81 Urinary incontinence R32 Acute cystitis (Resolved) N30.00 Decreased level of consciousness (Resolved) R40.4 Hallucinations (Resolved) R44.3 Hypokalemia (Resolved) E87.6 Left hip pain (Resolved) M25.552 Lethargy (Resolved) R53.83 Shortness of breath (Resolved) R06.02 Subdural hematoma S06.5X9A From Fall Urinary tract infection (Resolved) N39.0 Vitamin D deficiency (Resolved) E55.9 Allergies adhesive Allergy (Verified 06/13/20 14:03) Unknown adhesive tape amitriptyline Allergy (Verified 06/13/20 14:03) Unknown codeine Allergy (Verified 06/13/20 14:03) Unknown hydrocodone bitartrate [From Vicodin] Allergy (Verified 06/13/20 14:03) Hives Iodinated Contrast Media [Iodinated Contrast Media - IV Dye] Allergy (Verified 06/13/20 14:03) Unknown naproxen Allergy (Verified 06/13/20 14:03) Unknown Penicillins Allergy (Verified 06/13/20 14:03) Rash phenytoin sodium [From Dilantin] Allergy (Verified 06/13/20 14:03) Unknown phenytoin sodium extended [From Dilantin] Allergy (Verified 06/13/20 14:03) Unknown silicone Allergy (Verified 06/13/20 14:03) Unknown Surgical History: Surgical History (Last Reviewed 05/07/20 @ 09:50 by ART Tang) History of brain surgery Z98.890 History of breast biopsy Z98.890 History of hysterectomy Z90.710 History of umbilical hernia repair Z98.890, Z87.19 S/P ORIF (open reduction internal fixation) fracture Onset Date: ~05/19/15 Z98.890, Z87.81 left hip, 05/19/15, Dr Prescott, [facility] - *Family History Maternal Family History: Family History (Last Reviewed 06/13/20 @ 18:09 by ART Chaves) Sister Heart disease Paternal Family History: Family History (Last Reviewed 06/13/20 @ 18:09 by ART Chaves) Sister Heart disease Sibling Family History: Family History (Last Reviewed 06/13/20 @ 18:09 by ART Chaves) Sister Heart disease - Physical Exam Vitals/I&O's: Vital Signs Temp Pulse Resp BP Pulse Ox 98.2 F 58 L 18 152/60 H 100 06/13/20 18:28 06/13/20 18:28 06/13/20 18:28 06/13/20 18:28 06/13/20 18:28 Oxygen Flow Rate (L/min) 3 Oxygen Delivery Method Room Air Weight: 186 lb 6.4 oz Body Mass Index (BMI) 30.0 Finger Stick Blood Glucose 111 Laboratory Results 06/13/20 14:35: COVID-19 ([facility]) Negative 06/13/20 14:47: WBC 11.8 H, RBC 4.07 L, Hgb 12.1, Hct 37.7, MCV 92.6, MCH 29.7, MCHC 32.1, RDW Std Deviation 45.4 H, RDW Coeff of [place] 13.3, Plt Count 201, MPV 10.3, Immature Gran % (Auto) 0.300, Neut % (Auto) 60.9, Lymph % (Auto) 17.6 L, M [place] % (Auto) 8.0, Eos % (Auto) 12.3 H, Baso % (Auto) 0.9, Absolute Neuts (auto) 7.2, Absolute Lymphs (auto) 2.07, Nucleated RBC % 0 06/13/20 14:47: Sodium Cancelled, Potassium Cancelled, Chloride Cancelled, Carbon Dioxide Cancelled, Anion Gap Cancelled, BUN Cancelled, Creatinine Cancelled, Estim Creat Clear Calc Cancelled, Est GFR (MDRD) Af Amer Cancelled, Est GFR (MDRD) Non-Af Cancelled, BUN/Creatinine Ratio Cancelled, Glucose Cancelled, Calcium Cancelled, Total Bilirubin Cancelled, AST Cancelled, ALT Cancelled, Alkaline Phosphatase Cancelled, Troponin I Cancelled, Total Protein Cancelled, Albumin Cancelled, Globulin Cancelled, Albumin/Globulin Ratio Cancelled, Lipase Cancelled 06/13/20 16:01: Sodium 137, Potassium 3.2 L, Chloride 109 H, Carbon Dioxide 23.0, Anion Gap 5, BUN 14, Creatinine 0.91, Estim Creat Clear Calc 44.62, Est GFR (MDRD) Af Amer 76, Est GFR (MDRD) Non-Af 63, BUN/Creatinine Ratio 15.4, Glucose 96, Calcium 7.5 L, Total Bilirubin 0.50, AST 14 L, ALT 14, Alkaline Phosphatase 83, Troponin I < 0.015, Total Protein 6.8, Albumin 2.6 L, Globulin 4.2, Albumin/Globulin Ratio 0.6 L, Lipase 66 L 06/13/20 16:44: Urine Color Yellow, Urine Clarity Cloudy, Urine pH 8.0, Ur Specific [place] 1.010, Urine Protein Negative, Urine Glucose (UA) Normal, Urine Ketones Negative, Urine Occult Blood 150 H, Urine Nitrite Positive H, Urine Bilirubin Negative, Urine Urobilinogen Normal, Ur Leukocyte Esterase 100 H, Urine RBC 10-25 SEEN, Urine WBC 10-25 SEEN, Ur Squamous Epith Cells 0-5 SEEN, Amorphous Sediment 3+ PHOS, Urine Bacteria RARE, Urine Mucus 0 SEEN Current Medications Sodium Chloride () 1,000 mls @ 150 mls/hr IV .Q6H40M [facility] Last Admin: 06/13/20 15:03 Dose: 150 mls/hr Documented by: Addendum: Dr. Ford I personally examined the patient and reviewed the chart. I agree with the above. 84-year-old female on chronic oxygen at home at night presents with generalized weakness. She says that she has not been feeling well for the last several weeks and had burning on urination last week. She states that she has been coming weaker and weaker and cannot walk very well. She says that she has chronic diarrhea as well as a chronic cough and chronic shortness of breath which are unchanged. Her son or grandson tested negative for COVID and she tested negative for COVID. She did have a UA in the ER which was positive for leukocyte esterase as well as nitrates and rare bacteria. We will start her on Rocephin and follow-up on a urine culture. PT/OT for evaluation and possible placement, and will continue with oxygen via nasal cannula. Inpatient E&M: [id number] Init Hosp L3
[2020-06-13] MEDS: Ceftriaxone 1 GM/50 ML BAG IV (18:27)
[2020-06-13 19:55] LABS: Lactic Acid 1.1 mmol/L (0.4-1.9)
[2020-06-13] MEDS: 0.9% Normal Saline 1,000 ML 75 ML IV (20:45)
[2020-06-13] MEDS: Albuterol 2.5 MG/3 ML VIAL.NEB. INHALATION (21:11)
[2020-06-13] MEDS: Isosorbide Mononitrate 60 MG Tablet PO (21:15)
[2020-06-13] MEDS: MELATONIN 3 MG TABLET PO (21:15)
[2020-06-13] MEDS: Atorvastatin Calcium 10 MG Tablet PO (21:15)
[2020-06-13] MEDS: Acetaminophen 325 MG Tablet 650 MG PO (21:17)
[2020-06-13] MEDS: Benzonatate 100 MG Capsule PO (22:40)
[2020-06-13] MEDS: Menthol/Lanolin/Calamine/Znox 113 GM Tube 1 APPLIC TOPICAL (22:40)
[2020-06-14] VITALS (9 sets, daily range): BP systolic 109–139; BP diastolic 53–69; PULSE 61–78; RESP 16–18; TEMP 36.6–36.9; O2SAT 95–100
[2020-06-14 06:12] LABS: Absolute Lymphocyte Count 2.82 X10^3/uL (0.83-4.51); Absolute Neutrophil Count 4.1 X10^3/uL (2.0-7.7); Basophil# 0.13 X10^3/uL; Basophil% 1.3 % (0-1); Eosinophil# 1.96 X10^3/uL; Eosinophils% 19.8 % (0-5); Hematocrit 31.4 % (37-47); Hemoglobin 10.2 g/dL (12.0-15.0); Lymphocyte # 2.82 X10^3/ul (4.0); Lymphocyte % 28.5 % (19-41); Mean Corp Hgb Conc 32.5 g/dL (32-36); Mean Corpuscular Hgb 30.2 pg (27.0-32.0); Mean Corpuscular Volume 92.9 fL (81-99); Mean Platelet Vol. 9.6 fl (6.2-12.0); Monocyte# 0.86 X10^3/uL; Monocyte% 8.7 % (0-10); NRBC Flagged by Analyzer 0 % (0-5); Neutrophil # 4.09 X10^3/uL (2.7-7.7); Neutrophil % 41.4 % (47-70); Platelet Count 225 K/mm3 (150-450); RBC Distribution Width CV 13.2 % (11.6-14.6); RBC Distribution Width SD 45.1 fl (35.1-43.9); Red Blood Count 3.38 M/mm3 (4.2-5.4); White Blood Count 9.9 K/mm3 (4.4-11.0)
[2020-06-14 06:34] LABS: Anion Gap 2 (5-15); BUN 15 mg/dL (7-18); BUN/Creat Ratio 17.1 RATIO (10-20); Calcium,Total 8.4 mg/dL (8.5-10.1); Chloride 112 mmol/L (98-107); Creatinine, Serum 0.88 mg/dL (0.55-1.02); EST Glomerular Filtration Rate 66 mL/min (>60); Est Glom Filt Rate - Afr Amer 79 mL/min (>60); Estimated Creatinine Clearance 46.14 ml/min; Glucose 94 mg/dL (74-106); Potassium 3.7 mmol/L (3.5-5.1); Sodium Level 140 mmol/L (136-145)
[2020-06-14] MEDS: Budesonide Respules 0.5 MG/2 ML AMPUL.NEB. INHALATION ×2 (07:31→19:18)
[2020-06-14] MEDS: Albuterol 2.5 MG/3 ML VIAL.NEB. INHALATION ×3 (07:31→19:18)
[2020-06-14] MEDS: Loratadine 10 MG Tablet PO (09:02)
[2020-06-14] MEDS: Aspirin E.C. 81 MG Tablet PO (09:02)
[2020-06-14] MEDS: Menthol/Lanolin/Calamine/Znox 113 GM Tube 1 APPLIC TOPICAL ×2 (09:02→22:25)
[2020-06-14] MEDS: Losartan Potassium 100 MG Tablet PO (09:03)
[2020-06-14] MEDS: Tolterodine Tartrate 2 MG CAP.SA PO (09:03)
[2020-06-14] MEDS: Isosorbide Mononitrate 60 MG Tablet PO (09:06)
[2020-06-14] MEDS: amLODIPine 5 MG Tablet PO (09:06)
[2020-06-14] MEDS: Atenolol 50 MG Tablet PO (09:07)
[2020-06-14] MEDS: Enoxaparin 40 MG/0.4 ML Syringe SC (09:07)
[2020-06-14] MEDS: Pantoprazole Sodium 20 MG Tablet PO (09:07)
[2020-06-14] MEDS: Clopidogrel Bisulfate 75 MG Tablet PO (09:07)
[2020-06-14] MEDS: Ceftriaxone 1 GM/50 ML BAG IV (09:10)
[2020-06-14] MEDS: 0.9% Normal Saline 1,000 ML 75 ML IV (10:30)
--- NOTE | 2020-06-14 12:29 | PN_ITS ---
<Nathan Ny - Last Filed: 06/14/20 12:29> Patient Problems: Active and Suspected Problems (Last Reviewed 05/07/20 @ 09:50 by ART Tang) UTI (urinary tract infection) (Acute) Reason for Visit: Generalized weakness. Urinary tract infection. Subjective: Patient resting comfortably in chair at bedside. States overall she feels better and would like to go home. She has no fevers or chills. She denies dysuria. No cough or shortness of breath. No abdominal pain, no nausea, no vomiting, no diarrhea. Vitals/I&O's: Vital Signs Temp Pulse Resp BP Pulse Ox 98.0 F 68 16 121/63 H 95 06/14/20 09:00 06/14/20 09:00 06/14/20 09:00 06/14/20 09:00 06/14/20 09:00 Oxygen Flow Rate (L/min) 3 Oxygen Delivery Method Room Air Weight: 186 lb 6.4 oz Body Mass Index (BMI) 30.0 Finger Stick Blood Glucose 111 Intake and Output for Last 24 Hours 06/12/20 06/13/20 06/14/20 23:59 23:59 23:59 Intake Total 902.5 / 1162.5 1360 / 1360 Balance 902.5 / 1162.5 1360 / 1360 General: Alert, Oriented x3, Cooperative HEENT: Atraumatic, PERRLA, EOMI, Normocephalic Neck: Supple, No JVD, Negative Carotid Bruits Lungs: Clear to auscultation, Normal air movement Cardiovascular: Regular rate, No murmurs Abdomen: Bowel Sounds Present, Soft, Non Tender Extremities: No edema, Capillary Refill Less than 3 Seconds Skin: No rashes, No breakdown Musculoskeletal: No Tenderness to Palpation of Joints or Extremities Neurological: Cranial nerves II-XII grossly intact Psych/Mental Status: Normal Affect, Appropriate, Alert and oriented to time, place, person, mood and affect Microbiology Past 72 Hours 06/13/20 16:44 Urine, Catheterized Urine Culture - Preliminary Presumptive E. coli Laboratory Results 06/13/20 14:35: COVID-19 (GUANACO) Negative 06/13/20 14:47: WBC 11.8 H, RBC 4.07 L, Hgb 12.1, Hct 37.7, MCV 92.6, MCH 29.7, MCHC 32.1, RDW Std Deviation 45.4 H, RDW Coeff of Taina 13.3, Plt Count 201, MPV 10.3, Immature Gran % (Auto) 0.300, Neut % (Auto) 60.9, Lymph % (Auto) 17.6 L, Fergus % (Auto) 8.0, Eos % (Auto) 12.3 H, Baso % (Auto) 0.9, Absolute Neuts (auto) 7.2, Absolute Lymphs (auto) 2.07, Nucleated RBC % 0 06/13/20 14:47: Sodium Cancelled, Potassium Cancelled, Chloride Cancelled, Carbon Dioxide Cancelled, Anion Gap Cancelled, BUN Cancelled, Creatinine Cancelled, Estim Creat Clear Calc Cancelled, Est GFR (MDRD) Af Amer Cancelled, Est GFR (MDRD) Non-Af Cancelled, BUN/Creatinine Ratio Cancelled, Glucose Cancelled, Calcium Cancelled, Total Bilirubin Cancelled, AST Cancelled, ALT Cancelled, Alkaline Phosphatase Cancelled, Troponin I Cancelled, Total Protein Cancelled, Albumin Cancelled, Globulin Cancelled, Albumin/Globulin Ratio Cancelled, Lipase Cancelled 06/13/20 16:01: Sodium 137, Potassium 3.2 L, Chloride 109 H, Carbon Dioxide 23.0, Anion Gap 5, BUN 14, Creatinine 0.91, Estim Creat Clear Calc 44.62, Est GFR (MDRD) Af Amer 76, Est GFR (MDRD) Non-Af 63, BUN/Creatinine Ratio 15.4, Glucose 96, Calcium 7.5 L, Total Bilirubin 0.50, AST 14 L, ALT 14, Alkaline Phosphatase 83, Troponin I < 0.015, Total Protein 6.8, Albumin 2.6 L, Globulin 4.2, Albumin/Globulin Ratio 0.6 L, Lipase 66 L 06/13/20 16:44: Urine Color Yellow, Urine Clarity Cloudy, Urine pH 8.0, Ur Specific [place] 1.010, Urine Protein Negative, Urine Glucose (UA) Normal, Urine Ketones Negative, Urine Occult Blood 150 H, Urine Nitrite Positive H, Urine Bilirubin Negative, Urine Urobilinogen Normal, Ur Leukocyte Esterase 100 H, Urine RBC 10-25 SEEN, Urine WBC 10-25 SEEN, Ur Squamous Epith Cells 0-5 SEEN, Amorphous Sediment 3+ PHOS, Urine Bacteria RARE, Urine Mucus 0 SEEN 06/13/20 19:10: Lactic Acid 1.1 06/14/20 05:55: WBC 9.9, RBC 3.38 L, Hgb 10.2 L, Hct 31.4 L, MCV 92.9, MCH 30.2, MCHC 32.5, RDW Std Deviation 45.1 H, RDW Coeff of Taina 13.2, Plt Count 225, MPV 9.6, Immature Gran % (Auto) 0.300, Neut % (Auto) 41.4 L, Lymph % (Auto) 28.5, Fergus % (Auto) 8.7, Eos % (Auto) 19.8 H, Baso % (Auto) 1.3 H, Absolute Neuts (auto) 4.1, Absolute Lymphs (auto) 2.82, Nucleated RBC % 0 06/14/20 05:55: Sodium 140, Potassium 3.7, Chloride 112 H, Carbon Dioxide 26.0, Anion Gap 2 L, BUN 15, Creatinine 0.88, Estim Creat Clear Calc 46.14, Est GFR (MDRD) Af Amer 79, Est GFR (MDRD) Non-Af 66, BUN/Creatinine Ratio 17.1, Glucose 94, Calcium 8.4 L Current Medications Acetaminophen (Tylenol) 650 mg PO Q6H PRN PRN PRN Reason: Pain Score 1-10/Temp > 100.7 F Last Admin: 06/13/20 21:17 Dose: 650 mg Documented by: Albuterol Sulfate (Ventolin Aerosols) 2.5 mg INHALATION Q2H PRN PRN PRN Reason: SOB/WHEEZING Last Admin: 06/13/20 21:11 Dose: 2.5 mg Documented by: Albuterol Sulfate (Ventolin Aerosols) 2.5 mg INHALATION Q6HWA.RT [facility] Last Admin: 06/14/20 07:31 Dose: 2.5 mg Documented by: Amlodipine Besylate (Norvasc) 5 mg PO DAILY [facility] Last Admin: 06/14/20 09:06 Dose: 5 mg Documented by: [facility]) [facility] Last Admin: 06/14/20 09:02 Dose: 81 mg Documented by: Atenolol (Tenormin (Beta Mckenzie)) 50 mg PO DAILY [facility] Last Admin: 06/14/20 09:07 Dose: 50 mg Documented by: Atorvastatin Calcium (Lipitor) 10 mg PO QHS [facility] Last Admin: 06/13/20 21:15 Dose: 10 mg Documented by: Benzonatate (Tessalon Perle) 100 mg PO TID PRN PRN PRN Reason: COUGH Last Admin: 06/13/20 22:40 Dose: 100 mg Documented by: Budesonide (Pulmicort Aerosol) 0.5 mg INHALATION Q12H.RT [facility] Last Admin: 06/14/20 07:31 Dose: 0.5 mg Documented by: Calamine/Phenol (Calmoseptine Ointment) 1 applic TOPICAL BID [facility]; Protocol Last Admin: 06/14/20 09:02 Dose: 1 applicatio Documented by: Cholecalciferol (Vitamin D (25mcg)) 2,000 unit PO DAILY [facility] Last Admin: 06/14/20 09:08 Dose: 2,000 unit Documented by: Clopidogrel Bisulfate (Plavix) 75 mg PO DAILY [facility] Last Admin: 06/14/20 09:07 Dose: 75 mg Documented by: Enoxaparin Sodium (Lovenox) 40 mg SC DAILY [facility] Last Admin: 06/14/20 09:07 Dose: 40 mg Documented by: Sodium Chloride () 1,000 mls @ 75 mls/hr IV .[id number] [facility] Last Admin: 06/14/20 10:30 Dose: 75 mls/hr Documented by: Ceftriaxone Sodium (Rocephin) 1 gm in 50 mls @ 100 mls/hr IV Q24 [facility] Last Admin: 06/14/20 09:10 Dose: 100 mls/hr Documented by: Isosorbide Mononitrate (Imdur) 60 mg PO BID [facility] Last Admin: 06/14/20 09:06 Dose: 60 mg Documented by: Loratadine (Claritin) 10 mg PO DAILY [facility] Last Admin: 06/14/20 09:02 Dose: 10 mg Documented by: Losartan Potassium (Cozaar) 100 mg PO DAILY [facility] Last Admin: 06/14/20 09:03 Dose: 100 mg Documented by: Melatonin (Melatonin) 3 mg PO QHS PRN PRN PRN Reason: INSOMNIA Last Admin: 06/13/20 21:15 Dose: 3 mg Documented by: Ondansetron HCl (Zofran) 4 mg IV Q8H PRN PRN PRN Reason: NAUSEA/VOMITING Pantoprazole Sodium (Protonix) 20 mg PO DAILY [facility] Last Admin: 06/14/20 09:07 Dose: 20 mg Documented by: Phenazopyridine HCl (Azo Standard) 190 mg PO TID PRN PRN PRN Reason: urinary pain (1-10) Potassium Chloride (K-Dur) 20 meq PO BIDCM [facility] Last Admin: 06/14/20 09:02 Dose: 20 meq Documented by: Sodium Chloride () 10 - 40 ml IV UD PRN PRN Reason: SALINE FLUSH Tolterodine Tartrate (Detrol La) 2 mg PO DAILY [facility] Last Admin: 06/14/20 09:03 Dose: 2 mg Documented by: STROKE Vital Signs/Narrative: Vital Signs Temp Pulse Resp BP Pulse Ox 06/14/20 09:00 98.0 F 68 16 121/63 H 95 Medical Necessity - Tobacco Use Smoking Status: Never smoker Tobacco Use: Non-smoker Assessment/Plan All Active Problems (Last Reviewed 05/07/20 @ 09:50 by ART Tang) UTI (urinary tract infection) (Acute) Dilatation of aorta (Acute) Fall (Resolved) Encephalopathy (Resolved) Acute ischemic stroke (Resolved) Acute cystitis (Resolved) Decreased level of consciousness (Resolved) Hallucinations (Resolved) Hypokalemia (Resolved) Left hip pain (Resolved) Lethargy (Resolved) Shortness of breath (Resolved) Urinary tract infection (Resolved) Vitamin D deficiency (Resolved) 1. Acute UTI - In the past cultures she has had E coli, Aerococcus, Strep agalactiae, Enterococcus faecalis, Proteus vulgaris. Consult ID. Continue Rocephin. Await cultures. + UA, + WBC elevation. Frequent UTIs likely due to underlying bladder issues such as hx of bladder hernia and chronic incontinence. She should follow up with urology and consider prophylactic antibiotics. 2. Chronic hypoxic respiratory failure 2/2 COPD, chronic systolic CHF - no exacerbation. Continue home meds, incentive spirometer, o2 as needed. Avoid overhydration. Baseline 2 lpm qhs. 3. Hx CVAs - asa/statin 4. HTN - stable 5. HLD - statin 6. GERD - PPI DVT ppx: lovenox DC Planning: PTOT. Cant walk. Patient wants to go home at discharge This patient was seen by Nathan Ny PA-C under the supervision of Dr. Beavers <Kayla Beavers - Last Filed: 06/14/20 15:25> Vitals/I&O's: Vital Signs Temp Pulse Resp BP Pulse Ox 97.9 F 75 16 129/69 H 96 06/14/20 14:36 06/14/20 14:36 06/14/20 14:36 06/14/20 14:36 06/14/20 14:36 Oxygen Flow Rate (L/min) 3 Oxygen Delivery Method Room Air Weight: 84.55 kg Body Mass Index (BMI) 30.0 Finger Stick Blood Glucose 111 Intake and Output for Last 24 Hours 06/12/20 06/13/20 06/14/20 23:59 23:59 23:59 Intake Total 902.5 / 1162.5 1360 / 1360 Balance 902.5 / 1162.5 1360 / 1360 Microbiology Past 72 Hours 06/13/20 16:44 Urine, Catheterized Urine Culture - Preliminary Presumptive E. coli Laboratory Results 06/13/20 14:35: COVID-19 (GUANACO) Negative 06/13/20 16:01: Sodium 137, Potassium 3.2 L, Chloride 109 H, Carbon Dioxide 23.0, Anion Gap 5, BUN 14, Creatinine 0.91, Estim Creat Clear Calc 44.62, Est GFR (MDRD) Af Amer 76, Est GFR (MDRD) Non-Af 63, BUN/Creatinine Ratio 15.4, Glucose 96, Calcium 7.5 L, Total Bilirubin 0.50, AST 14 L, ALT 14, Alkaline Phosphatase 83, Troponin I < 0.015, Total Protein 6.8, Albumin 2.6 L, Globulin 4.2, Albumin/Globulin Ratio 0.6 L, Lipase 66 L 06/13/20 16:44: Urine Color Yellow, Urine Clarity Cloudy, Urine pH 8.0, Ur Specific [place] 1.010, Urine Protein Negative, Urine Glucose (UA) Normal, Urine Ketones Negative, Urine Occult Blood 150 H, Urine Nitrite Positive H, Urine Bilirubin Negative, Urine Urobilinogen Normal, Ur Leukocyte Esterase 100 H, Urine RBC 10-25 SEEN, Urine WBC 10-25 SEEN, Ur Squamous Epith Cells 0-5 SEEN, Amorphous Sediment 3+ PHOS, Urine Bacteria RARE, Urine Mucus 0 SEEN 06/13/20 19:10: Lactic Acid 1.1 06/14/20 05:55: WBC 9.9, RBC 3.38 L, Hgb 10.2 L, Hct 31.4 L, MCV 92.9, MCH 30.2, MCHC 32.5, RDW Std Deviation 45.1 H, RDW Coeff of Taina 13.2, Plt Count 225, MPV 9.6, Immature Gran % (Auto) 0.300, Neut % (Auto) 41.4 L, Lymph % (Auto) 28.5, [place]ergus % (Auto) 8.7, Eos % (Auto) 19.8 H, Baso % (Auto) 1.3 H, Absolute Neuts (auto) 4.1, Absolute Lymphs (auto) 2.82, Nucleated RBC % 0 06/14/20 05:55: Sodium 140, Potassium 3.7, Chloride 112 H, Carbon Dioxide 26.0, Anion Gap 2 L, BUN 15, Creatinine 0.88, Estim Creat Clear Calc 46.14, Est GFR (MDRD) Af Amer 79, Est GFR (MDRD) Non-Af 66, BUN/Creatinine Ratio 17.1, Glucose 94, Calcium 8.4 L Current Medications Acetaminophen (Tylenol) 650 mg PO Q6H PRN PRN PRN Reason: Pain Score 1-10/Temp > 100.7 F Last Admin: 06/13/20 21:17 Dose: 650 mg Documented by: Albuterol Sulfate (Ventolin Aerosols) 2.5 mg INHALATION Q2H PRN PRN PRN Reason: SOB/WHEEZING Last Admin: 06/13/20 21:11 Dose: 2.5 mg Documented by: Albuterol Sulfate (Ventolin Aerosols) 2.5 mg INHALATION Q6HWA.RT [facility] Last Admin: 06/14/20 13:40 Dose: 2.5 mg Documented by: Amlodipine Besylate (Norvasc) 5 mg PO DAILY [facility] Last Admin: 06/14/20 09:06 Dose: 5 mg Documented by: [facility] ([facility]) [facility] Last Admin: 06/14/20 09:02 Dose: 81 mg Documented by: Atenolol (Tenormin (Beta Mckenzie)) 50 mg PO DAILY [facility] Last Admin: 06/14/20 09:07 Dose: 50 mg Documented by: Atorvastatin Calcium (Lipitor) 10 mg PO QHS [facility] Last Admin: 06/13/20 21:15 Dose: 10 mg Documented by: Benzonatate (Tessalon Perle) 100 mg PO TID PRN PRN PRN Reason: COUGH Last Admin: 06/13/20 22:40 Dose: 100 mg Documented by: Budesonide (Pulmicort Aerosol) 0.5 mg INHALATION Q12H.RT [facility] Last Admin: 06/14/20 07:31 Dose: 0.5 mg Documented by: Calamine/Phenol (Calmoseptine Ointment) 1 applic TOPICAL BID [facility]; Protocol Last Admin: 06/14/20 09:02 Dose: 1 applicatio Documented by: Cholecalciferol (Vitamin D (25mcg)) 2,000 unit PO DAILY [facility] Last Admin: 06/14/20 09:08 Dose: 2,000 unit Documented by: Clopidogrel Bisulfate (Plavix) 75 mg PO DAILY [facility] Last Admin: 06/14/20 09:07 Dose: 75 mg Documented by: Enoxaparin Sodium (Lovenox) 40 mg SC DAILY [facility] Last Admin: 06/14/20 09:07 Dose: 40 mg Documented by: Sodium Chloride () 1,000 mls @ 75 mls/hr IV .[id number] [facility] Last Admin: 06/14/20 10:30 Dose: 75 mls/hr Documented by: Ceftriaxone Sodium (Rocephin) 1 gm in 50 mls @ 100 mls/hr IV Q24 [facility] Last Admin: 06/14/20 09:10 Dose: 100 mls/hr Documented by: Isosorbide Mononitrate (Imdur) 60 mg PO BID [facility] Last Admin: 06/14/20 09:06 Dose: 60 mg Documented by: Loratadine (Claritin) 10 mg PO DAILY [facility] Last Admin: 06/14/20 09:02 Dose: 10 mg Documented by: Losartan Potassium (Cozaar) 100 mg PO DAILY [facility] Last Admin: 06/14/20 09:03 Dose: 100 mg Documented by: Melatonin (Melatonin) 3 mg PO QHS PRN PRN PRN Reason: INSOMNIA Last Admin: 06/13/20 21:15 Dose: 3 mg Documented by: Ondansetron HCl (Zofran) 4 mg IV Q8H PRN PRN PRN Reason: NAUSEA/VOMITING Pantoprazole Sodium (Protonix) 20 mg PO DAILY [facility] Last Admin: 06/14/20 09:07 Dose: 20 mg Documented by: Phenazopyridine HCl (Azo Standard) 190 mg PO TID PRN PRN PRN Reason: urinary pain (1-10) Potassium Chloride (K-Dur) 20 meq PO BIDCM [facility] Last Admin: 06/14/20 09:02 Dose: 20 meq Documented by: Sodium Chloride () 10 - 40 ml IV UD PRN PRN Reason: SALINE FLUSH Tolterodine Tartrate (Detrol La) 2 mg PO DAILY [facility] Last Admin: 06/14/20 09:03 Dose: 2 mg Documented by: STROKE Vital Signs/Narrative: Vital Signs Temp Pulse Resp BP Pulse Ox 06/14/20 14:36 97.9 F 75 16 129/69 H 96 06/14/20 13:41 62 16 Assessment/Plan This patient was seen in conjunction with ART Chaves. I have independently interviewed and examined the patient and reviewed pertinent historical, laboratory, and other data. Please refer to ART Chaves note for his patient's presentation, findings, and recommendations. I have reviewed and his note and concur with his documentation Patient was seen and examined. She denied any new complaints. No fevers or chills or vomiting or diarrhea. No acute events overnight. Physical Exam: Gen: Comfortable, not pale, not jaundiced CVS:HS I +II, regular, no murmurs RESP: CTA GI: BS present and normal, soft, nontender, no palpable organs EXT:No edema ASSESSMENT: 1. Acute E. coli UTI 2. Chronic hypoxic respiratory failure secondary COPD 3. Hypertension 4. History of CVA 5. Hyperlipidemia 6. GERD Plan: Continue on IV ceftriaxone, follow-up on sensitivities Continue on antihypertensive and statin PT/OT to evaluate in am Inpatient E&M: [id number] Subs Hosp L2
--- NOTE | 2020-06-14 14:42 | CASEMGMT ---
IBRAHIMA HARRY Face to Face with patient for initial transition planning/care coordination assessment. IBRAHIMA HARRY introduced self and role at [facility]. Patient lying in bed, slightly confused. Patient gave permission to call son to complete assessment. IBRAHIMA CM called sophia Hutchins and he is willing to participate in assessment and is able to answer all questions appropriately. Care providers, pharmacy, and demographics verified. Son wishes for patient to discharge home, with home healthcare for nursing and therapy. IBRAHIMA CM to provide list of HHC for son that is in-network with insurance. Son states he has no further needs or concerns at this time. CM to follow for discharge planning needs that may arise. PCP: Suman Specialists: Moodisadriana, stave planer tender; Preferred Pharmacy: [facility] Insurance: [employer] [facility] Prescription Benefit: yes Living Will/HPOA: yes, sophia Hutchins Long LNOK: sophia Hutchins Living Arrangements: Patient lives with son in a 1 story home with ramp to enter the home. Patient has aides to assist with ADLs and son helps as well. Son states that patient usually walks 30 feet in the home with a walker. Transportation: son DME/HHC: Patient has shower chair, raised toilet, BSC, grab bars, walker, cane, rollator, wheelchair, hospital bed, oxygen at through Home [facility] [phone]. Patient has aides through [employer] [facility] [employer] 5days/week 4 hrs/day. Patient has had [facility] HHC in the past. Disposition Plan: Patient to discharge home with HHC, family support, and follow-up plans in place. Janelle LAMB, RN, CM
--- NOTE | 2020-06-14 14:46 | CASEMGMT ---
Social Work Note VICKY updated that pt used to have CM Charmaine Farooq but pt's son is not sure if Charmaine is still pt's CM or who pt's CM is now. VICKY placed a call to Charmaine and left message. VICKY then placed a call to main number at [facility] and was transferred to CM Jahaira Marquise who appears to be pt's CM now. VICKY left message for Jahaira regarding pt's admission to [facility]. Per Jahaira's voicemail, she is out of the office until Wednesday. VICKY placed a call to [facility] Shi and updated Shi on admission to [facility]. Shi states pt has personal care five days week for four hours through [facility] [place]. Janelle Burciaga HEEL COVERER, CAR FERRIER
--- NOTE | 2020-06-14 15:27 | PCM.HP.ID ---
Problem List (1) UTI (urinary tract infection) Status: Acute Reason for Consult: uti Consulted by: Dr. Beavers History of Present Illness: The patient is a 84 year old F with copd, recurrent uti, presented 06/13 with one week of not feeling well. Reports some fatigue, increased cough/congestion/sore throat. Had one episode of dysuria during this time. No abd pain. No change in taste/smell, no fever. Has chronic back pain. Reports grandson also with cough/sore throat this past week. Came to ED, admitted on ceftriaxone, feeling about the same today. Full ROS performed and neg except as noted above. - Medical History Past Medical History (Chronic Problems): Chronic Problems (Last Reviewed 05/07/20 @ 09:50 by ART Tang) Chronic systolic (congestive) heart failure (Chronic) Angina pectoris (Chronic) COPD (chronic obstructive pulmonary disease) (Chronic) Intellectual disability (Chronic) Edema (Chronic) Asthma (Chronic) Benign essential HTN (Chronic) Cerebrovascular disease (Chronic) reported 2 strokes mild left facial droop Gastroesophageal reflux disease (Chronic) HLD (hyperlipidemia) (Chronic) Allergies/Adverse Reactions: Allergies adhesive Allergy (Verified 06/13/20 14:03) Unknown adhesive tape amitriptyline Allergy (Verified 06/13/20 14:03) Unknown codeine Allergy (Verified 06/13/20 14:03) Unknown hydrocodone bitartrate [From Vicodin] Allergy (Verified 06/13/20 14:03) Hives Iodinated Contrast Media [Iodinated Contrast Media - IV Dye] Allergy (Verified 06/14/20 13:06) Hives OK WITH PRE-MEDICATION naproxen Allergy (Verified 06/13/20 14:03) Unknown Penicillins Allergy (Verified 06/13/20 14:03) Rash phenytoin sodium [From Dilantin] Allergy (Verified 06/13/20 14:03) Unknown phenytoin sodium extended [From Dilantin] Allergy (Verified 06/13/20 14:03) Unknown silicone Allergy (Verified 06/13/20 14:03) Unknown Home Medications: Ambulatory Orders Medication Instructions Recorded Atenolol 50 mg PO DAILY 01/31/19 Atorvastatin Calcium 10 mg PO DAILY 01/31/19 Clopidogrel Bisulfate [Plavix] 75 mg PO DAILY 01/31/19 Loratadine [Claritin] 10 mg PO DAILY 01/31/19 Omeprazole [Prilosec] 20 mg PO DAILY 01/31/19 Oxybutynin Chloride [Oxybutynin 10 mg PO DAILY 01/31/19 Chloride ER] fluticasone 250 mcg-salmeterol 50 1 inh INHALATION BID 05/03/19 mcg/dose blistr powdr for inhalation aspirin 81 mg tablet,delayed 81 mg PO DAILY #1 tab 05/04/19 release isosorbide mononitrate 60 mg 60 mg PO BID #60 tab 08/08/19 tablet,extended release 24 hr losartan 100 mg tablet 100 mg PO DAILY #30 tab 09/01/19 melatonin 5 mg capsule 5 mg PO QHS PRN 09/01/19 potassium chloride 20 mEq 20 meq PO BID tab 09/01/19 tablet,extended release(part/cryst) nitroglycerin 0.4 mg sublingual 0.4 mg SUBLINGUAL Q5-15M PRN #25 12/07/19 tablet tab furosemide 40 mg tablet 40 mg PO DAILY tab 05/07/20 Albuterol Sulfate [Albuterol 1 - 2 puff IH Q4H PRN PRN 06/13/20 Sulfate HFA] Amlodipine Besylate 5 mg PO DAILY 06/13/20 Cholecalciferol (VIT D3) [Vitamin 2,000 unit PO DAILY 06/13/20 D] Phenazopyridine [Pyridium] 200 mg PO TID PRN PRN 06/13/20 - Social History Tobacco Use: non-smoker Vital Signs Temp Pulse Resp BP Pulse Ox 97.9 F 75 16 129/69 H 96 06/14/20 14:36 06/14/20 14:36 06/14/20 14:36 06/14/20 14:36 06/14/20 14:36 Oxygen Flow Rate (L/min) 3 Oxygen Delivery Method Room Air Weight: 84.55 kg Body Mass Index (BMI) 30.0 Finger Stick Blood Glucose 111 Microbiology Past 72 Hours 06/13/20 16:44 Urine Culture - Preliminary Urine, Catheterized Presumptive E. coli Laboratory Tests Past 24 Hrs 06/13/20 06/13/20 06/13/20 14:35 16:01 16:44 WBC RBC Hgb Hct MCV MCH MCHC RDW Std Deviation RDW Coeff of Taina Plt Count MPV Immature Gran % (Auto) Neut % (Auto) Lymph % (Auto) [place] % (Auto) Eos % (Auto) Baso % (Auto) Absolute Neuts (auto) Absolute Lymphs (auto) Nucleated RBC % Sodium 137 Potassium 3.2 L Chloride 109 H Carbon Dioxide 23.0 Anion Gap 5 BUN 14 Creatinine 0.91 Estim Creat Clear Calc 44.62 Est GFR (MDRD) Af Amer 76 Est GFR (MDRD) Non-Af 63 BUN/Creatinine Ratio 15.4 Glucose 96 Lactic Acid Calcium 7.5 L Total Bilirubin 0.50 AST 14 L ALT 14 Alkaline Phosphatase 83 Troponin I < 0.015 Total Protein 6.8 Albumin 2.6 L Globulin 4.2 Albumin/Globulin Ratio 0.6 L Lipase 66 L Urine Color Yellow Urine Clarity Cloudy Urine pH 8.0 Ur Specific [place] 1.010 Urine Protein Negative Urine Glucose (UA) Normal Urine Ketones Negative Urine Occult Blood 150 H Urine Nitrite Positive H Urine Bilirubin Negative Urine Urobilinogen Normal Ur Leukocyte Esterase 100 H Urine RBC 10-25 SEEN Urine WBC 10-25 SEEN Ur Squamous Epith Cells 0-5 SEEN Amorphous Sediment 3+ PHOS Urine Bacteria RARE Urine Mucus 0 SEEN COVID-19 (GUANACO) Negative 06/13/20 06/14/20 06/14/20 19:10 05:55 05:55 WBC 9.9 RBC 3.38 L Hgb 10.2 L Hct 31.4 L MCV 92.9 MCH 30.2 MCHC 32.5 RDW Std Deviation 45.1 H RDW Coeff of Taina 13.2 Plt Count 225 MPV 9.6 Immature Gran % (Auto) 0.300 Neut % (Auto) 41.4 L Lymph % (Auto) 28.5 [place] % (Auto) 8.7 Eos % (Auto) 19.8 H Baso % (Auto) 1.3 H Absolute Neuts (auto) 4.1 Absolute Lymphs (auto) 2.82 Nucleated RBC % 0 Sodium 140 Potassium 3.7 Chloride 112 H Carbon Dioxide 26.0 Anion Gap 2 L BUN 15 Creatinine 0.88 Estim Creat Clear Calc 46.14 Est GFR (MDRD) Af Amer 79 Est GFR (MDRD) Non-Af 66 BUN/Creatinine Ratio 17.1 Glucose 94 Lactic Acid 1.1 Calcium 8.4 L Total Bilirubin AST ALT Alkaline Phosphatase Troponin I Total Protein Albumin Globulin Albumin/Globulin Ratio Lipase Urine Color Urine Clarity Urine pH Ur Specific [place] Urine Protein Urine Glucose (UA) Urine Ketones Urine Occult Blood Urine Nitrite Urine Bilirubin Urine Urobilinogen Ur Leukocyte Esterase Urine RBC Urine WBC Ur Squamous Epith Cells Amorphous Sediment Urine Bacteria Urine Mucus COVID-19 (GUANACO) - Other Studies Radiology: [] reviewed Other Studies: [] Route of nutrition/ use of supplements: [] Nutritional Intake: [] IV Site: [] Rodney Catheter: [] - Physical Exam General: Alert, Cooperative, No apparent distress HEENT: Atraumatic, PERRLA, EOMI Neck: Supple, No Nodes Lungs: Rhonchi, Wheezes Cardiovascular: Regular rate, Regular Rhythm Abdomen: Soft, Non Tender, Non-Distended Extremities: Edema Skin: No rashes IV Site: Peripheral, without redness Musculoskeletal: No Tenderness to Palpation of Joints or Extremities Neurological: Cranial nerves II-XII grossly intact - Assessment/Plan Antibiotics: [] Assessment/Plan: [] Active and Suspected Problems (Last Reviewed 05/07/20 @ 09:50 by ART Tang) UTI (urinary tract infection) (Acute) recurrent uti and suspected copd exacerbation - recent ecoli. Ucx here with GNR, but UA with only 10-25 wbc. No fever, normal wbc. Will check resp viral panel. Plan on d/c home on 5 days of omnicef 300mg bid. Will follow, thank you, d/w primary team. She can followup with me for help with recurrent uti.
[2020-06-14] MEDS: Benzonatate 100 MG Capsule PO (16:51)
[2020-06-14] MEDS: Atorvastatin Calcium 10 MG Tablet PO (22:25)
[2020-06-15] MEDS: 0.9% Normal Saline 1,000 ML 75 ML IV (02:07)
[2020-06-15 02:16] VITALS: BP 142/55; PULSE 66; RESP 16; TEMP 36.4; O2SAT 100
[2020-06-15 06:57] LABS: Absolute Lymphocyte Count 2.72 X10^3/uL (0.83-4.51); Absolute Neutrophil Count 2.2 X10^3/uL (2.0-7.7); Basophil# 0.11 X10^3/uL; Basophil% 1.4 % (0-1); Eosinophils% 29.9 % (0-5); Hematocrit 31.6 % (37-47); Hemoglobin 10.1 g/dL (12.0-15.0); Lymphocyte # 2.72 X10^3/ul (4.0); Lymphocyte % 33.8 % (19-41); Mean Corpuscular Hgb 30.1 pg (27.0-32.0); Mean Platelet Vol. 9.8 fl (6.2-12.0); Monocyte# 0.62 X10^3/uL; Monocyte% 7.7 % (0-10); NRBC Flagged by Analyzer 0 % (0-5); Neutrophil # 2.17 X10^3/uL (2.7-7.7); POSITIVE DIFFERENTIAL YES; Platelet Count 238 K/mm3 (150-450); RBC Distribution Width CV 13.4 % (11.6-14.6); RBC Distribution Width SD 45.4 fl (35.1-43.9); Red Blood Count 3.36 M/mm3 (4.2-5.4)
[2020-06-15 07:32] LABS: Differential Indicated SCAN CRITERIA MET
[2020-06-15 07:33] LABS: Differential Comment SCANNED
[2020-06-15] MEDS: Budesonide Respules 0.5 MG/2 ML AMPUL.NEB. INHALATION (07:34)
[2020-06-15] MEDS: Albuterol 2.5 MG/3 ML VIAL.NEB. INHALATION (07:34)
[2020-06-15 07:35] VITALS: PULSE 68; RESP 16; O2SAT 92
[2020-06-15] MEDS: Aspirin E.C. 81 MG Tablet PO (07:51)
[2020-06-15 08:15] VITALS: BP 155/90; PULSE 77; RESP 18; TEMP 36.8; O2SAT 94
[2020-06-15] MEDS: Menthol/Lanolin/Calamine/Znox 113 GM Tube 1 APPLIC TOPICAL (10:07)
[2020-06-15] MEDS: Losartan Potassium 100 MG Tablet PO (10:08)
[2020-06-15] MEDS: Tolterodine Tartrate 2 MG CAP.SA PO (10:08)
[2020-06-15] MEDS: Isosorbide Mononitrate 60 MG Tablet PO (10:08)
[2020-06-15] MEDS: Loratadine 10 MG Tablet PO (10:09)
[2020-06-15] MEDS: Clopidogrel Bisulfate 75 MG Tablet PO (10:09)
[2020-06-15] MEDS: Pantoprazole Sodium 20 MG Tablet PO (10:09)
[2020-06-15] MEDS: amLODIPine 5 MG Tablet PO (10:09)
[2020-06-15] MEDS: Atenolol 50 MG Tablet PO (10:10)
--- NOTE | 2020-06-15 10:52 | PCM.DC ---
- Discharge Diagnoses Current Active Problems: Current Active and Chronic Problems (Last Reviewed 05/07/20 @ 09:50 by ART Tang) UTI (urinary tract infection) (Acute) You will use the following diet at home:: Cardiac Your food should be the consistency of: Regular Your liquids should be the consistency of: Regular/Thin Discharge Activity: Return to Normal Activity Allergies/Adverse Reactions: Allergies adhesive Allergy (Verified 06/13/20 14:03) Unknown adhesive tape amitriptyline Allergy (Verified 06/13/20 14:03) Unknown codeine Allergy (Verified 06/13/20 14:03) Unknown hydrocodone bitartrate [From Vicodin] Allergy (Verified 06/13/20 14:03) Hives Iodinated Contrast Media [Iodinated Contrast Media - IV Dye] Allergy (Verified 06/14/20 13:06) Hives OK WITH PRE-MEDICATION naproxen Allergy (Verified 06/13/20 14:03) Unknown Penicillins Allergy (Verified 06/13/20 14:03) Rash phenytoin sodium [From Dilantin] Allergy (Verified 06/13/20 14:03) Unknown phenytoin sodium extended [From Dilantin] Allergy (Verified 06/13/20 14:03) Unknown silicone Allergy (Verified 06/13/20 14:03) Unknown Medications to take at Discharge Atenolol 50 mg PO DAILY 01/31/19 Atorvastatin Calcium 10 mg PO DAILY 01/31/19 Clopidogrel Bisulfate [Plavix] 75 mg PO DAILY 01/31/19 Loratadine [Claritin] 10 mg PO DAILY 01/31/19 Omeprazole [Prilosec] 20 mg PO DAILY 01/31/19 Oxybutynin Chloride [Oxybutynin Chloride ER] 10 mg PO DAILY 01/31/19 fluticasone 250 mcg-salmeterol 50 mcg/dose blistr powdr for inhalation 1 inh INHALATION BID 05/03/19 aspirin 81 mg tablet,delayed release 81 mg PO DAILY #1 tab 05/04/19 isosorbide mononitrate 60 mg tablet,extended release 24 hr 60 mg PO BID #60 tab 08/08/19 losartan 100 mg tablet 100 mg PO DAILY #30 tab 09/01/19 melatonin 5 mg capsule 5 mg PO QHS PRN 09/01/19 potassium chloride 20 mEq tablet,extended release(part/cryst) 20 meq PO BID tab 09/01/19 nitroglycerin 0.4 mg sublingual tablet 0.4 mg SUBLINGUAL Q5-15M PRN #25 tab 12/07/19 furosemide 40 mg tablet 40 mg PO DAILY tab 05/07/20 Albuterol Sulfate [Albuterol Sulfate HFA] 1 - 2 puff IH Q4H PRN PRN 06/13/20 Amlodipine Besylate 5 mg PO DAILY 06/13/20 Cholecalciferol (VIT D3) [Vitamin D3] 2,000 unit PO DAILY 06/13/20 Phenazopyridine [Pyridium] 200 mg PO TID PRN PRN 06/13/20 Acetaminophen [Tylenol Tablet] 650 mg PO Q6H PRN PRN tab 06/15/20 Cefdinir [Omnicef [equiv]] 300 mg PO Q12H #5 cap 06/15/20 The following prescriptions were given: Cefdinir [Omnicef [equiv]] 300 mg PO Q12H #5 cap Transmission Status: Pending to [facility] Primary Care Physician: Amadou Vazquez MD [NON-STAFF] - Please follow up with your Primary Care Physician in: 1-2 weeks Test Results: Test results from this visit will be discussed in further detail at your follow-up appointment, if applicable. Please Follow Up With: Antoinette Ferrell MD - Urology When: 2 weeks Proposed Discharge Date: 06/15/20
[2020-06-15] MEDS: Cefdinir 300 MG Capsule PO (11:06)
--- NOTE | 2020-06-15 12:56 | DS.PCM_ITS ---
<Nathan Ny - Last Filed: 06/15/20 12:56> Discharge Date and Diagnosis Date of Admission: 06/13/20 Date of Discharge: 06/15/20 - Primary Discharge Diagnosis Acute Problems: Acute recurrent UTI 2/2 E coli prior bladder hernia - Secondary Discharge Diagnosis Chronic Problems: Chronic Problems (Last Reviewed 05/07/20 @ 09:50 by ART Tang) Chronic systolic (congestive) heart failure (Chronic) Angina pectoris (Chronic) COPD (chronic obstructive pulmonary disease) (Chronic) Intellectual disability (Chronic) Edema (Chronic) Asthma (Chronic) Benign essential HTN (Chronic) Cerebrovascular disease (Chronic) reported 2 strokes mild left facial droop Gastroesophageal reflux disease (Chronic) HLD (hyperlipidemia) (Chronic) Hospital Course and Treatment Imaging Results: CT/Brain/Head without Contrast IMPRESSION: Chronic involutional changes of the brain. RAD/Chest 1 View (Portable) IMPRESSION: Normal x-ray examination of the chest. Consults: Infectious Disease: Leslie Operations: None Procedures: None Summary of Care Provided: Hospital course: The patient is a 84 year old F with past medical history of frequent urinary tract infections, history of a bladder hernia, history of COPD, CVD with prior strokes, GERD, hyperlipidemia, chronic systolic congestive heart failure, who presented to the emergency room with complaints of generalized weakness. Patient stated that she had felt ill for about 2 weeks, she had a variety of symptoms including subjective fever, no chills, occasional dysuria, one episode of nausea without vomiting, one episode of abdominal pain. She came to the emergency room was found to have mild leukocytosis, no fever negative lactate. The patient had a positive urinalysis. She had older urine cultures demonstrating most recently E. coli, but also in the past Aerococcus, strep agalactiae, Enterococcus faecalis, Proteus vulgaris, Citrobacter freundii. Patient was placed on Rocephin as her repeat most recent cultures were sensitive to this. She did well overnight with improvement by the following day. She was seen by infectious disease who recommended continuation of Rocephin and transitioned to Omnicef at the time of discharge. Patient worked with physical therapy and had some ongoing debility, home health care was recommended. The patient was transitioned to Omnicef and will complete a total of 5 days of therapy. With her history of frequent urinary tract infections and a bladder abnormality, I referred her to urology with whom she should follow-up in 2 weeks. She will also need follow-up with her PCP in 1 to 2 weeks. Patient was discharged home in stable condition with home health care. This patient was seen by Nathan Ny PA-C under the supervision of Doctor Ruthann. [] - Physical Exam Vitals/I&O's: Vital Signs Temp Pulse Resp BP Pulse Ox 98.2 F 77 18 155/90 H 94 06/15/20 08:15 06/15/20 08:15 06/15/20 08:15 06/15/20 08:15 06/15/20 08:15 Oxygen Flow Rate (L/min) 3 Oxygen Delivery Method Room Air Weight: 186 lb 6.4 oz Body Mass Index (BMI) 30.0 Finger Stick Blood Glucose 111 Intake and Output for Last 24 Hours 06/13/20 06/14/20 06/15/20 23:59 23:59 23:59 Intake Total 902.5 / 1162.5 2410 / 2410 905 / 905 Output Total 350 / 350 Balance 902.5 / 1162.5 2410 / 2410 555 / 555 General: Alert, Oriented x3, Cooperative HEENT: Atraumatic, PERRLA, EOMI, Normocephalic Neck: Supple, No JVD, Negative Carotid Bruits Lungs: Clear to auscultation, Normal air movement Cardiovascular: Regular rate, No murmurs Abdomen: Bowel Sounds Present, Soft, Non Tender Extremities: No edema, Capillary Refill Less than 3 Seconds Skin: No rashes, No breakdown Musculoskeletal: No Tenderness to Palpation of Joints or Extremities Neurological: Cranial nerves II-XII grossly intact Psych/Mental Status: Normal Affect, Appropriate, Alert and oriented to time, place, person, mood and affect Microbiology Past 72 Hours 06/13/20 16:44 Urine, Catheterized Urine Culture - Final Presumptive E. coli 06/14/20 19:23 Mucosa - Nasopharyngeal Respiratory Panel (PCR) - Final Laboratory Results 06/15/20 06:40: WBC 8.0, RBC 3.36 L, Hgb 10.1 L, Hct 31.6 L, MCV 94.0, MCH 30.1, MCHC 32.0, RDW Std Deviation 45.4 H, RDW Coeff of Taina 13.4, Plt Count 238, MPV 9.8, Immature Gran % (Auto) 0.200, Neut % (Auto) 27.0 L, Lymph % (Auto) 33.8, [place] % (Auto) 7.7, Eos % (Auto) 29.9 H, Baso % (Auto) 1.4 H, Absolute Neuts (auto) 2.2, Absolute Lymphs (auto) 2.72, Nucleated RBC % 0, Differential Comment SCANNED, Diff Path Review May foll Discharge Diet: Low fat/ Low Cholesterol, 2000 mg Sodium Diet Discharge Activity: Return to Normal Activity Home Medications: Medications to take at Discharge Atenolol 50 mg PO DAILY 01/31/19 Atorvastatin Calcium 10 mg PO DAILY 01/31/19 Clopidogrel Bisulfate [Plavix] 75 mg PO DAILY 01/31/19 Loratadine [Claritin] 10 mg PO DAILY 01/31/19 Omeprazole [Prilosec] 20 mg PO DAILY 01/31/19 Oxybutynin Chloride [Oxybutynin Chloride ER] 10 mg PO DAILY 01/31/19 fluticasone 250 mcg-salmeterol 50 mcg/dose blistr powdr for inhalation 1 inh INHALATION BID 05/03/19 aspirin 81 mg tablet,delayed release 81 mg PO DAILY #1 tab 05/04/19 isosorbide mononitrate 60 mg tablet,extended release 24 hr 60 mg PO BID #60 tab 08/08/19 losartan 100 mg tablet 100 mg PO DAILY #30 tab 09/01/19 melatonin 5 mg capsule 5 mg PO QHS PRN 09/01/19 potassium chloride 20 mEq tablet,extended release(part/cryst) 20 meq PO BID tab 09/01/19 nitroglycerin 0.4 mg sublingual tablet 0.4 mg SUBLINGUAL Q5-15M PRN #25 tab 12/07/19 furosemide 40 mg tablet 40 mg PO DAILY tab 05/07/20 Albuterol Sulfate [Albuterol Sulfate HFA] 1 - 2 puff IH Q4H PRN PRN 06/13/20 Amlodipine Besylate 5 mg PO DAILY 06/13/20 Cholecalciferol (VIT D3) [Vitamin D3] 2,000 unit PO DAILY 06/13/20 Phenazopyridine [Pyridium] 200 mg PO TID PRN PRN 06/13/20 Acetaminophen [Tylenol Tablet] 650 mg PO Q6H PRN PRN tab 06/15/20 Cefdinir [Omnicef [equiv]] 300 mg PO Q12H #5 cap 06/15/20 Following Prescrptions Were Given to Patient: Cefdinir [Omnicef [equiv]] 300 mg PO Q12H #5 cap Transmission Status: Received by [facility] Primary Care Physician: Amadou Vazquez MD [NON-STAFF] - Please follow up with your Primary Care Physician in: 1-2 weeks Please Follow Up With: Antoinette Ferrell MD - Urology When: 2 weeks Disposition: Home with Home Health Minutes spent on discharge:: 35 Medical Necessity - Tobacco Use Smoking Status: Never smoker Tobacco Use: Non-smoker Meaningful Use Info Meaningful Use Diagnoses (Choose all that apply): None applicable <Paintsil,Theodore - Last Filed: 06/15/20 15:34> Discharge Date and Diagnosis - Secondary Discharge Diagnosis Chronic Problems: Chronic Problems (Last Reviewed 05/07/20 @ 09:50 by ART Tang) Chronic systolic (congestive) heart failure (Chronic) Angina pectoris (Chronic) COPD (chronic obstructive pulmonary disease) (Chronic) Intellectual disability (Chronic) Edema (Chronic) Asthma (Chronic) Benign essential HTN (Chronic) Cerebrovascular disease (Chronic) reported 2 strokes mild left facial droop Gastroesophageal reflux disease (Chronic) HLD (hyperlipidemia) (Chronic) Hospital Course and Treatment Summary of Care Provided: This patient was seen in conjunction with ART Chaves. I have independently interviewed and examined the patient and reviewed pertinent historical, laboratory, and other data. Please refer to ART Chaves note for his patient's presentation, findings, and recommendations. I have reviewed and his note and concur with his documentation 84-year-old female with past medical history of recurrent UTIs, history of bladder hernia, was admitted with generalized weakness, fever and dysuria. Her work-up in the ED showed mild leukocytosis. UA was positive. She was admitted to the MedSurg floor. Her urine culture grew E. coli. Infectious disease were consulted. She was on IV ceftriaxone. Patient continued to improve and be stable. PT and OT were consulted and recommended follow-up with home health. Patient was transitioned to Omnicef to complete a 7-day antibiotic therapy. She was also referred to urologist for follow-up. On the day of discharge, patient was seen and examined. Denied any new complaints. Physical Exam: Gen: Comfortable, not pale, not jaundiced CVS:HS I +II, regular, no murmurs RESP: CTA GI: BS present and normal, soft, nontender, no palpable organs EXT:No edema - Physical Exam Vitals/I&O's: Vital Signs Temp Pulse Resp BP Pulse Ox 98.2 F 77 18 155/90 H 94 06/15/20 08:15 06/15/20 08:15 06/15/20 08:15 06/15/20 08:15 06/15/20 08:15 Oxygen Flow Rate (L/min) 3 Oxygen Delivery Method Room Air Weight: 84.55 kg Body Mass Index (BMI) 30.0 Finger Stick Blood Glucose 111 Intake and Output for Last 24 Hours 06/13/20 06/14/20 06/15/20 23:59 23:59 23:59 Intake Total 902.5 / 1162.5 2410 / 2410 905 / 905 Output Total 350 / 350 Balance 902.5 / 1162.5 2410 / 2410 555 / 555 Microbiology Past 72 Hours 06/13/20 16:44 Urine, Catheterized Urine Culture - Final Presumptive E. coli 06/14/20 19:23 Mucosa - Nasopharyngeal Respiratory Panel (PCR) - Final Laboratory Results 06/15/20 06:40: WBC 8.0, RBC 3.36 L, Hgb 10.1 L, Hct 31.6 L, MCV 94.0, MCH 30.1, MCHC 32.0, RDW Std Deviation 45.4 H, RDW Coeff of Taina 13.4, Plt Count 238, MPV 9.8, Immature Gran % (Auto) 0.200, Neut % (Auto) 27.0 L, Lymph % (Auto) 33.8, [place] % (Auto) 7.7, Eos % (Auto) 29.9 H, Baso % (Auto) 1.4 H, Absolute Neuts (auto) 2.2, Absolute Lymphs (auto) 2.72, Nucleated RBC % 0, Differential Comment SCANNED, Diff Path Review March Inpatient E&M: [id number] Disch Hosp
--- NOTE | 2020-06-17 08:50 | CASEMGMT ---
Social Work Note Pt discharged home 06/15/2020. SW placed a call to Jahaira Camarillo at [facility] and left message that pt discharged home. VICKY faxed discharge paperwork to Jahaira. Janelle Burciaga QUALITY CONTROL COORDINATOR, [employer]
[2020-06-17 12:55] LABS: Pathologist Review Reviewed
--- NOTE | 2020-06-17 13:24 | CASEMGMT ---
IBRAHIMA CM DC PHONE CALL DC DATE: 06/15/2020 DC DISPOSITION: Home DC DIAGNOSIS: Recurrent UTI LACE/STRATA: 09/24 F/U APPTS MADE PRIOR TO DC: no, weekend dc Attempted call to phone listed for patient and son. Phone carrier message stated the number is unavailable. No other number is listed. Reza SIMPSONN RN ACM
== END 2020-06-15 11:15 | disposition home or self-care (01) | DRG 690 ==
LOC: ED 14:33 → MS3 18:00
PROVIDERS: Physician Assistant; Admitting Provider Family Medicine; Emergency Provider Emergency Medicine; Visit Provider Internal Medicine
DX: N39.0 Urinary tract infection, site not specified (principal); I50.22 Chronic systolic (congestive) heart failure; J96.11 Chronic respiratory failure with hypoxia; J44.9 Chronic obstructive pulmonary disease, unspecified; B96.20 Unspecified Escherichia coli [E. coli] as the cause of diseases classified elsewhere; I69.392 Facial weakness following cerebral infarction; I20.9 Angina pectoris, unspecified; I11.0 Hypertensive heart disease with heart failure; F79 Unspecified intellectual disabilities; K21.9 Gastro-esophageal reflux disease without esophagitis; E78.5 Hyperlipidemia, unspecified; R53.81 Other malaise; R60.9 Edema, unspecified; Z87.440 Personal history of urinary (tract) infections; Z87.19 Personal history of other diseases of the digestive system; Z79.82 Long term (current) use of aspirin; Z79.02 Long term (current) use of antithrombotics/antiplatelets; Z99.81 Dependence on supplemental oxygen; Z79.899 Other long term (current) drug therapy
CPT/HCPCS: 36415; 70450; 71045; 80048; 80053; 81001; 83605; 83690; 84484; 85025; 87086; 87088; 87186; 87633; 87635; 93005; 94640; 94799; 97162; 97166; 99285; J7030; J2405; U0003

== ENCOUNTER → 2020-07-08 | Outpatient (CLI) | payer MEDICARE, MEDICAID, SELFPAY ==
--- NOTE | 2020-07-08 15:28 | US_ITS ---
STUDY: RENAL ULTRASOUND - COMPLETE REASON FOR EXAM: Female, 84 years old. CHRONIC UTI''S TECHNIQUE: Ultrasound evaluation of the kidneys was performed with real-time and static purcell-scale imaging. COMPARISON: None. FINDINGS: RIGHT KIDNEY: Normal location of the right kidney, which is normal in size. The right kidney measures 10.3 x 5.1 x 4.5 cm. There is a normal cortex of the right kidney. The renal cortex measures 1.3 cm. There is a simple 1.6 cm cyst There are no right renal calculi. There is an extra-renal pelvis of the right kidney. There is no distention of the renal calyces. DISTAL RIGHT URETER: There is non-visualization of the distal right ureter. There is no demonstrated right ureterovesical junction calculus. There is a visualized right ureteral jet. LEFT KIDNEY: Normal location of the left kidney, which is normal in size. The left kidney measures 10.4 x 4.8 x 4.7 cm. There is a normal cortex of the left kidney. The renal cortex measures 1.3 cm. There is no left renal mass or cyst. There are no left renal calculi. There is an extra-renal pelvis of the left kidney. There is no distention of the renal calyces. DISTAL LEFT URETER: There is non-visualization of the distal left ureter. There is no demonstrated left ureterovesical junction calculus. There is a visualized left ureteral jet. AORTA: There is no elongation or tortuosity of the abdominal aorta. I.V.C.: The IVC is patent. BLADDER: The bladder is sonographically normal US/Kidney and Bladder IMPRESSION: No suspicious sonographic findings, simple right renal cyst needs no specific follow-up Electronically Signed: Drew Small MD at 16:33 EDT , Service support ,
== END | disposition home or self-care (01) ==
LOC: US 15:26
PROVIDERS: Referring Provider Urology; Visit Provider Urology
DX: N39.0 Urinary tract infection, site not specified (principal)
CPT/HCPCS: 76770

== ENCOUNTER → 2020-12-31 13:41 | Outpatient (CLI) | payer MEDICARE, MEDICAID, SELFPAY ==
[2020-12-17 15:30] VITALS: BMI 30.7
--- NOTE | 2020-12-31 13:44 | ECHOCS_ITS ---
Reason For Study: THORACIC AO DILATATION Procedure This was a 2D Doppler, Color Flow transthoracic echocardiogram. The exam was of poor technical quality due to suboptimal acoustic windows.. Pt had persistent cough during echo that interfered with imaging acquisition. The study was technically difficult. Contrast injection was performed. Exam performed in department. Left Ventricle Normal LV size. Left ventricular systolic function is normal. The estimated ejection fraction is 65 %. Diastolic function is indeterminate. No regional wall motion abnormalities noted. Right Ventricle Normal RV size. Normal systolic function. Atria The left atrium is mildly enlarged. Normal right atrium. No doppler evidence for ASD. Mitral Valve There is mild mitral annular calcification. Normal mitral valve. Trivial mitral valve insufficiency. Tricuspid Valve Normal tricuspid valve. Trivial tricuspid valve insufficiency. Unable to estimate RV systolic pressure/pulmonary artery pressure due to technically difficult study. Aortic Valve Trisinus/trileaflet aortic valve. Mild focal aortic valve calcification. Mild (1+) aortic valve insufficiency. Pulmonic Valve The pulmonic valve is not well visualized. Mild (1+) pulmonic valve insufficiency. Great Vessels Mildly dilated aortic root. Pericardium/Pleural Trivial pericardial effusion. There are no echocardiographic indications of cardiac tamponade. Medication 22 gauge I.V. with prn adaptor inserted into left arm. Diluted definity 9.0ml given slow IV push to enhance endocardial definition. MMode/2D Measurements & Calculations LVIDd: 4.9 cm IVSd: 1.3 cm Ao root diam: 4.3 cm LVIDs: 3.3 cm LVPWd: 1.2 cm RVDd: 2.8 cm FS: 32.9 % LAV(MOD-bp): 42.7 ml LA A4 area: 17.7 cm2 RA A4 area: 10.0 cm2 LAV(MOD-bp) Indexed: 21.8 ml/m2 LAV(MOD-sp2): 36.6 ml LAV(MOD-sp4): 48.2 ml Doppler Measurements & Calculations MV E max chaz: 43.8 cm/sec Lat Peak E' Chaz: 3.5 cm/sec Med Peak E' Chaz: 3.0 cm/sec MV A max chaz: 75.5 cm/sec E/E' lat: 12.6 E/E' med: 14.7 MV E/A: 0.58 MV V2 max: 78.0 cm/sec Ao V2 max: 144.5 cm/sec AI max chaz: 448.1 cm/sec MV max P.4 mmHg Ao max P.4 mmHg AI max P.4 mmHg MV V2 mean: 41.3 cm/sec AI dec slope: 263.0 cm/sec2 MV mean P.79 mmHg AI P1/2t: 499.1 msec MV V2 VTI: 18.0 cm LV V1 max: 98.2 cm/sec PA V2 max: 71.1 cm/sec PI end-d chaz: 117.7 cm/sec LV V1 max P.9 mmHg MV P1/2t-pr_phl: 115.2 msec Interpretation Summary The study was technically difficult. Contrast injection was performed. Left ventricular systolic function is normal. The estimated ejection fraction is 65 %. The left atrium is mildly enlarged. There is mild mitral annular calcification. Trivial mitral valve insufficiency. Trivial tricuspid valve insufficiency. Mild focal aortic valve calcification. Mild (1+) aortic valve insufficiency. Mild (1+) pulmonic valve insufficiency. Mildly dilated aortic root. Trivial pericardial effusion. There are no echocardiographic indications of cardiac tamponade. Unable to estimate RV systolic pressure/pulmonary artery pressure due to technically difficult study. Diastolic function is indeterminate. Ordering Physician: Rob Jeronimo Performed By: Teresa RDCS, YUNG, Nora and Student
== END ==
PROVIDERS: Visit Provider Internal Medicine Cardiovascular Disease
DX: I77.810 Thoracic aortic ectasia (principal); I35.1 Nonrheumatic aortic (valve) insufficiency
CPT/HCPCS: 93306; Q9957; A4216; C8929

== ENCOUNTER 2021-01-25 09:13 | Emergency (ER) | payer MEDICARE, MEDICAID, SELFPAY ==
[2020-12-17 15:30] VITALS: BMI 30.7
[2021-01-25 09:17] VITALS: BP 150/67; PULSE 61; RESP 17; TEMP 36.6; O2SAT 93; BMI 29.9
--- NOTE | 2021-01-25 09:46 | RAD_ITS ---
STUDY: X-RAY - PELVIS AND LEFT HIP REASON FOR EXAM: Female, 85 years old. FALL TECHNIQUE: 3 views of the pelvis and hip. COMPARISON: January 31, 2019 FINDINGS: There is a normal bowel gas pattern. There are atherosclerotic vascular calcifications of the pelvic arteries. There is diffuse demineralization of the osseous structures. There is no acute fracture. Normal bilateral iliac wings, sacroiliac joints and visualized sacrum. Normal bilateral superior and inferior pubic rami. There are degenerative changes of the pubic symphysis with articular narrowing and sclerosis. Normal bilateral ischial tuberosities. Normal visualized femoral head. There is stable screw and intramedullary edilberto traversing healed fracture of the left proximal femur. Normal acetabulum. There is mild articular joint space narrowing of the hip. RAD/Hip Min 2 Views (Portable) IMPRESSION: Degenerative and postoperative change. No acute fracture. Electronically Signed: Lavell Sullivan MD at 10:39 EST , Service support ,
--- NOTE | 2021-01-25 09:47 | CT_ITS ---
STUDY: CT BRAIN WITHOUT CONTRAST REASON FOR EXAM: Female, 85 years old. FELL YESTERDAY, HIT LEFT SIDE OF HEAD, NO LOC, HX CRANIOTOMY SUBDURAL HEMORRHAGE RADIATION DOSAGE (If Supplied By Facility): CTDIvol = ( 44.99 ) mGy, DLP = ( 812.98 ) mGycm TECHNIQUE: Transaxial CT imaging of the brain was performed without administration of intravenous contrast material. Individualized dose optimization techniques were used for this CT. COMPARISON: June 13, 2020 FINDINGS: Normal soft tissue structures. There is right frontal craniotomy There is moderate cerebral atrophy with widening of the extra-axial spaces and ventricular dilatation. There are areas of decreased attenuation within the white matter tracts of the supratentorial brain, consistent with microvascular disease changes. There is left frontotemporal volume loss. Normal basal ganglia and thalami. Normal brainstem. Normal cerebellum. There is no intracranial hemorrhage. There are no findings of an acute ischemic infarction. There are atherosclerotic calcifications. 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 Normal visualized paranasal sinuses. CT/Brain/Head without Contrast IMPRESSION: Chronic involutional changes of the brain. Electronically Signed: Lavell Sullivan MD at 10:36 EST , Service support ,
--- NOTE | 2021-01-25 10:00 | ED.VIS.GEN ---
History of Present Illness Chief Complaint: Fall Informant: Patient, Family Narrative: 85-year-old female presenting for evaluation of head injury and left hip pain after a trip and fall last night getting into the shower. Patient is on Plavix. She states she was slightly dizzy after the event but is fine now. She denies fever, chills, nausea, vomiting, chest pain, shortness of breath. Patient does complain of left hip pain. She states she has a edilberto in her left hip. Patient also complains of left-sided headache. She has history of subdural hematoma she states. Past Medical History - Allergies and Home Meds Allergies/Adverse Reactions: Allergies adhesive Allergy (Verified 01/25/21 09:16) Rash adhesive tape amitriptyline Allergy (Verified 01/25/21 09:16) CONFUSION codeine Allergy (Verified 01/25/21 09:16) Hives hydrocodone bitartrate [From Vicodin] Allergy (Verified 01/25/21 09:16) Hives Iodinated Contrast Media [Iodinated Contrast Media - IV Dye] Allergy (Verified 01/25/21 09:16) Hives OK WITH PRE-MEDICATION naproxen Allergy (Verified 01/25/21 09:16) Unknown Penicillins Allergy (Verified 01/25/21 09:16) Rash phenytoin sodium [From Dilantin] Allergy (Verified 01/25/21 09:16) Hives phenytoin sodium extended [From Dilantin] Allergy (Verified 01/25/21 09:16) Hives silicone Allergy (Verified 01/25/21 09:16) Hives Primary Care Physician: Linn Will MD [Primary Care Provider] - Surgical History: appendectomy, hysterectomy, - - Craniotomy s/p trauma. Breast lumpectomy Smoking Status: Never smoker - Family History Maternal Family History: Family History (Last Reviewed 12/17/20 @ 15:34 by Kelsie Abbott) Sister Heart disease Family History: Reports: Cancer, Diabetes, Stroke - Stroke and aneurysm in mother Paternal Family History: Family History (Last Reviewed 12/17/20 @ 15:34 by Kelsie Abbott) Sister Heart disease Family History: Reports: Cancer, Diabetes, No pertinent history Sibling Family History: Family History (Last Reviewed 12/17/20 @ 15:34 by Kelsie Abbott) Sister Heart disease Family History: Reports: Cancer, Diabetes Physical Exam Vital Signs/Narrative: Vital Signs Temp Pulse Resp BP Pulse Ox 01/25/21 09:17 97.9 F 61 17 150/67 H 93 Diagnostic/Tx/Re-eval Clinical Impression(s) from Imaging Studies Hip X-Ray 01/25/21 09:46 IMPRESSION: Degenerative and postoperative change. No acute fracture. Electronically Signed: Lavell Sullivan MD at 10:39 EST , Service support , Brain CT 01/25/21 09:47 IMPRESSION: Chronic involutional changes of the brain. Electronically Signed: Lavell Sullivan MD at 10:36 EST , Service support , - Medical Decision Making 5-year-old female on Plavix with chief complaint of mechanical fall hitting her head. She did not lose consciousness. She is not been dizzy, lightheaded, confused. She does have pain in her left hip which she injured when she fell. She has history of prosthesis in this limb. Patient had CT brain which was negative for acute endocrine process. Left hip x-rays were negative for acute fracture or subluxation as interpreted by myself. Patient is ambulatory. I feel patient is safe to be discharged home at this time. Patient given return precautions. Impression: 1. Mechanical fall 2. Closed head injury 3. Left hip contusion ED Disposition - Plan for ED Patient: Disposition: Home or Assisted Living Instructions: ED Scalp Contusion, ED Mechanical Fall, ED Hip Strain Referrals: Linn Will MD [Primary Care Provider] -
[2021-01-25 11:16] VITALS: BP 134/77; PULSE 75; RESP 18; O2SAT 94
== END 2021-01-25 11:17 | disposition home or self-care (01) ==
PROVIDERS: Emergency Provider Student in an Organized Health Care Education/Training Program; PCP Internal Medicine
DX: S09.90XA Unspecified injury of head, initial encounter (principal); S70.02XA Contusion of left hip, initial encounter; W01.0XXA Fall on same level from slipping, tripping and stumbling without subsequent striking against object, initial encounter; Y93.E1 Activity, personal bathing and showering; Y92.9 Unspecified place or not applicable; Y99.8 Other external cause status; Z79.02 Long term (current) use of antithrombotics/antiplatelets
CPT/HCPCS: 70450; 73502; 99282

== ENCOUNTER → 2021-05-01 13:00 | Outpatient (CLI) | payer MEDICARE, MEDICAID, SELFPAY ==
--- NOTE | 2021-05-01 13:03 | CDU_ITS ---
Reason For Study: retinal hemorrhage Rt. Velocities/BP Lt. Velocities/BP Prox CCA 89.1/8.2 cm/sec. Prox CCA 73.9/10.2 cm/sec. Mid CCA 42.1/5.8 cm/sec. Mid CCA 59.6/8.0 cm/sec. Dist CCA 44.3/5.8 cm/sec. Dist CCA 51.9/5.8 cm/sec. Prox ICA 47.5/10.7 cm/sec. Prox ICA 62.9/14.6 cm/sec. Mid ICA 79.6/18.2 cm/sec. Mid ICA 69.5/16.8 cm/sec. Dist ICA 59.1/12.4 cm/sec. Dist ICA 72.3/12.8 cm/sec. Rt. ICA/CCA = 1.9. Lt. ICA/CCA = 1.2. Prox ECA 104.7/5.8 cm/sec. Prox ECA 83.8/8.0 cm/sec. Rt. Vert. 45.4/6.9 cm/sec. Lt. Vert. 35.2/6.4 cm/sec. Right Extracranial There is heterogeneous, irregular atherosclerotic plaque noted in the right common carotid artery. There is heterogeneous, irregular atherosclerotic plaque noted in the right internal carotid artery. There is heterogeneous, irregular atherosclerotic plaque noted in the right external carotid artery. Antegrade flow is noted in the right vertebral artery. Left Extracranial There is intimal thickening but no significant atherosclerotic plaque noted in the left common carotid artery. There is heterogeneous, irregular atherosclerotic plaque noted in the left internal carotid artery. There is heterogeneous, irregular atherosclerotic plaque noted in the left external carotid artery. Antegrade flow is noted in the left vertebral artery. There is heterogeneous, irregular atherosclerotic plaque noted in the left bulb. Acoustic shadowing. Procedure Carotid Duplex [id number]. This is a Carotid Duplex examination using B-mode, color flow and specral Doppler. The exam was diagnostic. Exam performed in department. VL/Carotid Duplex Ultrasound Interpretation Summary Mild (<50%) stenosis right extracranial internal carotid. Mild (<50%) stenosis left extracranial internal carotid. Flow within the vertebral arteries is antegrade bilaterally. Heterogeneous, irregular atherosclerotic plaque is noted in the left carotid bulb, which does not appear to be hemodynamically significant. Ordering Physician: Raoul Moncada Performed By: Evelio Mazariegos RVT
== END ==
PROVIDERS: PCP Internal Medicine; Referring Provider Ophthalmology; Visit Provider Ophthalmology
DX: H34.01 Transient retinal artery occlusion, right eye (principal); H35.61 Retinal hemorrhage, right eye
CPT/HCPCS: 93880

== ENCOUNTER → 2021-08-05 07:22 | Outpatient (CLI) | payer MEDICARE, MEDICAID, SELFPAY ==
[2021-06-25 09:14] VITALS: BMI 30.4
--- NOTE | 2021-08-05 09:16 | STRESSREP ---
Stress Test Report Date: 08-05-2021 Procedure: Pharmacologic stress nuclear imaging study Indications: Shortness of breath/dyspnea on exertion; chest discomfort/pain Consent: Per the patient Procedure: The patient underwent pharmacologic (Regadenoson 0.4mg ) evaluation with a peak heart rate of 77 beats per minute (56%predicted maximal heart rate) and a peak blood pressure of 118/70 mmHg. The baseline ECG demonstrated sinus bradycardia; right IVCD; nonspecific T wave abnormality. The peak pharmacologic ECG demonstrated no obvious ECG changes. There was an isolated PVC preinfusion. There was no complaint of chest discomfort during pharmacologic infusion or recovery. The examination was discontinued secondary to completion of protocol. Impression: 1. Pharmacologic (Regadenoson) evaluation 2. Peak pharmacologic ECG with no obvious ECG changes. 3. There were no cardiac dysrhythmias pretest, during pharmacologic infusion, or recovery. 4. Nuclear images pending Myocardial perfusion imaging study: Technique: The patient was injected with 10.0 millicuries of technetium 99m Cardiolite and subsequently rest SPECT Cardiolite nuclear imaging was obtained in the horizontal long, vertical long, and short axis views. The patient underwent pharmacologic (Regadenoson) evaluation with a peak heart rate of 77 beats per minute (56% percent predicted maximal heart rate) and a peak blood pressure of 118/70 mmHg. The patient was injected with 32.6 millicuries of technetium 99m Cardiolite and subsequently stress SPECT Cardiolite nuclear imaging was obtained in the horizontal long, vertical long, and short axis views. A gated Cardiolite study at peak stress was obtained. Interpretation: Rest and stress SPECT Cardiolite nuclear imaging status post realignment, normalization, and attenuation correction demonstrate the appearance of body motion during image acquisition and the appearance of a small area of subtle diminished tracer uptake near the apical segments. There is end systolic thickening and brightening. The gated Cardiolite study demonstrates myocardial thickening and inward wall motion. The reported LVEF is 69%. Impression: 1. Rest and stress SPECT Cardiolite nuclear imaging demonstrate myocardial perfusion changes demonstrating the appearance of body motion during image acquisition and the appearance of a small area of subtle diminished tracer uptake near the apical segments appearing compatible with physiologic apical thinning with no myocardial perfusion changes considered diagnostic for associated stress-induced myocardial ischemia. 2. The gated Cardiolite study reports an LVEF of 69%. This note was generated with Dragon dictation software. It may contain incorrect words, spelling, and punctuation that were not noted in checking the note before signing.
== END ==
PROVIDERS: PCP Internal Medicine; Referring Provider Physician Assistant Medical; Visit Provider Physician Assistant Medical
DX: I20.9 Angina pectoris, unspecified (principal); R06.09 Other forms of dyspnea
CPT/HCPCS: 78452; 93017; A9500; A4216; J2785

== ENCOUNTER 2021-09-10 13:12 | Observation (INO) | payer MEDICARE, MEDICAID, SELFPAY ==
[2021-09-10 13:14] VITALS: BP 128/66; PULSE 69; RESP 15; TEMP 36.2; O2SAT 96; BMI 29.9
--- NOTE | 2021-09-10 13:39 | EKG12_ITS ---
Test Reason : DIZZY Blood Pressure : / mmHG Vent. Rate : 069 BPM Atrial Rate : 069 BPM P-R Int : 174 ms QRS Dur : 140 ms QT Int : 466 ms P-R-T Axes : 008 095 025 degrees QTc Int : 499 ms Normal sinus rhythm Right bundle branch block Abnormal ECG Confirmed by SIRENA LAM, HIRAM ([id number]), news editor SAMAN MANUEL ([id number]) on 09/11/2021 1:52:29 P M Referred By: COLEEN Confirmed By:BRUCE PACK MD
--- NOTE | 2021-09-10 13:41 | CT_ITS ---
STUDY: CT BRAIN WITHOUT CONTRAST REASON FOR EXAM: Female, 86 years old. dizziness, hemorrhagic stroke RADIATION DOSAGE (If Supplied By Facility): CTDIvol = ( 38.43 ) mGy, DLP = ( 741.51 ) mGycm TECHNIQUE: Transaxial CT imaging of the brain was performed without administration of intravenous contrast material. Individualized dose optimization techniques were used for this CT. COMPARISON: Comparison is made with prior study dated 01/25/2021. FINDINGS: Normal soft tissue structures. There is evidence of prior right frontoparietal craniotomy. There is moderate cerebral atrophy with widening of the extra-axial spaces and ventricular dilatation. There are areas of decreased attenuation within the white matter tracts of the supratentorial brain, consistent with microvascular disease changes. Normal basal ganglia and thalami. Normal brainstem. Normal cerebellum. There is no intracranial hemorrhage. There are no findings of an acute ischemic infarction. Atherosclerotic calcification of the vertebral arteries and cavernous portions of the internal carotid arteries bilaterally. Normal visualized paranasal sinuses. CT/Brain/Head without Contrast IMPRESSION: Chronic involutional changes of the brain. Electronically Signed: Artie Chester MD at 15:15 EDT , Service support ,
--- NOTE | 2021-09-10 13:43 | RAD_ITS ---
STUDY: X-RAY - UNILATERAL RIBS ( LEFT ) WITH CHEST REASON FOR EXAM: Female, 86 years old. Fall TECHNIQUE - RIBS: 4 view(s) of the ribs. TECHNIQUE - CHEST: Single AP portable view of the chest. COMPARISON: Comparison is made with prior chest radiograph dated 06/13/2020. FINDINGS - RIBS: Nondisplaced fractures of the left seventh and eighth ribs. FINDINGS - CHEST: EKG electrodes are seen. The lungs are clear and expanded. There is no demonstrated pleural abnormality. Normal size heart. Normal mediastinum and [place]. Normal visualized pulmonary arteries. There is atherosclerotic calcification of the aortic arch with tortuosity. There is a levoscoliosis of the thoracic spine. Normal visualized ribs, clavicles, and shoulders. There is no demonstrated abnormality of the visualized soft tissue structures of the upper abdomen. RAD/Ribs Uni Min 3V w/PA Chest IMPRESSION: RIBS: Nondisplaced fractures of the left sixth and seventh ribs. CHEST: Normal x-ray examination of the chest. Electronically Signed: Artie Chester MD at 15:14 EDT , Service support ,
--- NOTE | 2021-09-10 13:44 | EX.ED.DYSGE1 ---
HPI History of Present Illness Chief Complaint: Abd Pain Detail of Chief Complaint: Abdominal pain and left rib pain and dizziness Informant: patient Narrative Narrative: Patient presents to the emergency department with multiple complaints today. Patient presents with her nurses aide from home. Patient initially seen at urgent care and referred to the emergency department. Patient tells me that she fell 5 days ago when she tripped and landed against her oxygen tank with her left ribs and has been having rib pain. Patient is not sure if she hit her head. Patient also is been having abdominal pain for at least a month intermittently. Patient also complains of dizziness with standing for about a week. She denies chest pain or shortness of breath. Patient denies recent travel or surgery. Patient had a intracranial hemorrhage about 3 years ago. Patient not currently anticoagulated. [facility] Medical History (Updated 09/10/21 @ 15:[address] Piotr Kwong, ) Acute cystitis Acute ischemic stroke Allergic rhinitis Angina pectoris Asthma Benign essential HTN Cerebrovascular disease Chronic systolic (congestive) heart failure COPD (chronic obstructive pulmonary disease) Decreased level of consciousness Dilatation of aorta Edema Encephalopathy Fall Gastroesophageal reflux disease Hallucinations History of stroke HLD (hyperlipidemia) Hypokalemia Insomnia Intellectual disability Left hip pain Lethargy Overactive bladder Shortness of breath Subdural hematoma Urinary incontinence Urinary tract infection Vitamin D deficiency Home Medications atenolol 50 mg PO DAILY 01/31/19 [History Last Taken Unknown] atorvastatin 10 mg PO DAILY 01/31/19 [History Last Taken Unknown] clopidogrel 75 mg PO DAILY 01/31/19 [History Last Taken Unknown] loratadine 10 mg PO DAILY 01/31/19 [History Last Taken Unknown] omeprazole 20 mg PO DAILY 01/31/19 [History Last Taken Unknown] oxybutynin chloride 10 mg PO DAILY 01/31/19 [History Last Taken Unknown] fluticasone 250 mcg-salmeterol 50 mcg/dose blistr powdr for inhalation 1 inh INHALATION BID PRN 05/03/19 [History Last Taken Unknown] melatonin 5 mg capsule 5 mg PO QHS PRN 09/01/19 [History Last Taken Unknown] potassium chloride 20 mEq tablet,extended release(part/cryst) 20 meq PO BID tab 09/01/19 [History Last Taken Unknown] nitroglycerin 0.4 mg sublingual tablet 0.4 mg SUBLINGUAL Q5-15M PRN #25 tab 12/07/19 [Rx Last Taken Unknown] albuterol sulfate 1 - 2 puff IH Q4H PRN PRN 06/13/20 [History Last Taken Unknown] cholecalciferol (vitamin D3) 2,000 unit PO DAILY 06/13/20 [History Last Taken Unknown] amlodipine 2.5 mg tablet 2.5 mg PO DAILY tab 12/17/20 [History Last Taken Unknown] furosemide 40 mg tablet 80 mg PO DAILY tab 12/17/20 [History Last Taken Unknown] losartan 100 mg tablet 100 mg PO DAILY #90 tab 06/06/21 [Rx Last Taken Unknown] isosorbide mononitrate 60 mg tablet,extended release 24 hr 60 mg PO BID #60 tab 06/11/21 [Rx Last Taken Unknown] Allergy/AdvReac Type Severity Reaction Status Date / Time adhesive Allergy Rash Verified 09/10/21 13:14 amitriptyline Allergy CONFUSION Verified 09/10/21 13:14 codeine Allergy Hives Verified 09/10/21 13:14 hydrocodone bitartrate Allergy Hives Verified 09/10/21 13:14 [From Vicodin] Iodinated Contrast Media Allergy Hives Verified 09/10/21 13:14 [Iodinated Contrast Media - IV Dye] naproxen Allergy Unknown Verified 09/10/21 13:14 Penicillins Allergy Rash Verified 09/10/21 13:14 phenytoin sodium Allergy Hives Verified 09/10/21 13:14 [From Dilantin] phenytoin sodium extended Allergy Hives Verified 09/10/21 13:14 [From Dilantin] silicone Allergy Hives Verified 09/10/21 13:14 Family History Sister Heart disease Surgical History History of brain surgery History of breast biopsy History of hysterectomy History of umbilical hernia repair S/P ORIF (open reduction internal fixation) fracture (~05/19/15) Social History Smoking Status: Never smoker alcohol intake: never substance use type: does not use caffeine: Yes Type: carbonated beverages and coffee ROS ROS ED ROS Narrative Dizziness with standing Constitutional Constitutional ED: Reports systems reviewed and no addt'l complaints, except as documented; Denies body ache(s), change in weight or chills Eyes Eyes: Denies acute decrease in peripheral vision, change in vision, double vision or loss of vision ENT ENT ED: Reports none; Denies ear pain, lip swelling, loss taste/smell, neck pain, otalgia or sore throat Cardiovascular Cardiovascular: Reports none; Denies abdominal pain, chest pain with activity, leg edema, lightheadedness, palpitations, rapid heart rate or syncope Respiratory/Chest Respiratory/Chest: Reports none and other Details: Left rib pain ; Denies change in mental status, dry cough, dyspnea, hemoptysis, shortness of breath at rest or shortness of breath with exertion Gastrointestinal Gastrointestinal: Reports none and abdominal pain; Denies change in stool character, diarrhea, hematemesis, hematochezia, melena, rectal bleeding or vomiting Genitourinary Genitourinary ED: Reports none; Denies abdominal discomfort, anuria, dysuria, genital pain or polyuria Musculoskeletal Musculoskeletal: Reports none; Denies arthralgias, back pain, difficulty walking, extremity pain, muscle weakness or myalgias Integumentary Reports none; Denies abscess or rash Neurologic Neurologic: Reports none; Denies abnormal gait, confusion, focal weakness, frequent falls, headache(s), loss of vision, numbness, paresthesias, radicular pain, vertigo or weakness Psychiatric Psychiatric: Reports systems reviewed and no addt'l complaints, except as documented and none; Denies behavioral changes, confusion, difficulty concentrating, hallucinations, suicidal ideation, tactile hallucinations or visual hallucinations Endocrine Endocrinology: Denies none, cold intolerance, excessive sweating, fatigue or heat intolerance Hematologic/Lymphatic Hematologic/Lymphatic: Reports none; Denies anemia, easy bleeding or easy bruising Allergic/Immunologic Allergic/Immunologic ED: Denies as per HPI, none, lip swelling, mouth swelling, throat swelling, tongue swelling or hives EXAM Physical Exam Const Vital Signs: 09/10/21 13:14 Temperature 97.2 F L Temperature Source Temporal Pulse Rate 69 Respiratory Rate 15 Blood Pressure 128/66 H Blood Pressure Mean 86 Pulse Ox 96 Oxygen Delivery Method Room Air Positive well nourished and well developed General Appearance ED: well developed and NAD HEENT Reports TM's clear and moist mucous membranes normocephalic and atraumatic; Negative for trauma or tenderness Tympanic Membrane ED: Yes TM's clear Eyes PERRL and EOMs intact bilaterally General Eye ED: Negative for pale conjunctiva or scleral icterus Neck no lymphadenopathy, supple and no JVD General: Negative for tenderness Chest Wall palpation of chest normal Chest Narrative: Patient has tenderness palpation to the left lower ribs in the midaxillary line that reproduces her pain. No crepitus or subcu emphysema noted. There is no ecchymosis or bruising noted to the skin. Chest: Negative for tenderness Resp normal respiratory effort and clear to auscultation bilaterally Effort and Inspection: Negative for respiratory distress or pain with movement Auscultation: Negative for rhonchi, wheezes or diminished lung sounds Cardio regular rate, regular rhythm, S1 normal heart sound, S2 normal heart sound and no murmurs Peripheral Pulses: pulses 2+ throughout GI normal to inspection, nondistended, normoactive bowel sounds, soft to palpation, non-tender, non-distended and no masses Back/Spine no CVA tenderness and no thoracic nor lumbar tenderness Extremity normal to inspection General Extremety ED: Negative for edema General Extremity: Negative for edema Neuro oriented x3, CN's II-XII intact bilaterally, no sensory deficits noted and gait normal Sensorium / Orientation: awake, alert, oriented to person, oriented to place and oriented to time Motor Exam: strength 5/5 throughout and strength abnormal Psych mental status grossly normal Skin no rashes or lesions noted and no wounds MDM MDM MDM Narrative Medical decision making narrative: IV line established on arrival. Patient placed on a camp head counselor. Nursing staff attempted orthostatic vital signs however patient could not stand due to the amount of dizziness and she was quite shaky and unsteady on her feet. Case will be discussed with hospitalist evaluate for admission. Lab Data Attestation: I reviewed the patient's lab results. Labs: Laboratory Results - last 24 hr 09/10/21 09/10/21 09/10/21 14:05 14:05 14:05 WBC 5.9 RBC 4.06 L Hgb 12.0 Hct 37.2 MCV 91.6 MCH 29.6 MCHC 32.3 RDW Std Deviation 47.4 H RDW Coeff of Taina 13.9 Plt Count 171 MPV 10.4 Immature Gran % (Auto) 0.200 Neut % (Auto) 32.4 L Lymph % (Auto) 32.2 [place] % (Auto) 10.3 H Eos % (Auto) 22.7 H Baso % (Auto) 2.2 H Absolute Neuts (auto) 1.9 L Absolute Lymphs (auto) 1.91 Nucleated RBC % 0 Platelet Estimate ADEQUATE RBC Morphology NORM C+C Sodium 140 Potassium 4.2 Chloride 108 H Carbon Dioxide 24.0 Anion Gap 8 BUN 13 Creatinine 0.90 Estim Creat Clear Calc 43.56 Est GFR (MDRD) Af Amer 76 Est GFR (MDRD) Non-Af 63 BUN/Creatinine Ratio 14.4 Glucose 145 H Lactic Acid 1.4 Calcium 8.6 Total Bilirubin 0.30 AST 23 ALT 25 Alkaline Phosphatase 95 Troponin I High Sens 12 Total Protein 7.9 Albumin 2.8 L Globulin 5.1 H Albumin/Globulin Ratio 0.5 L Lipase 96 TSH 1.17 Radiography Diagnostic Testing: Clinical Impression(s) from Imaging Studies Brain CT 09/10/21 13:41 IMPRESSION: Chronic involutional changes of the brain. Electronically Signed: Artie Chester MD at 15:15 EDT , Service support , Ribs w/Chest X-Ray 09/10/21 13:43 IMPRESSION: RIBS: Nondisplaced fractures of the left sixth and seventh ribs. CHEST: Normal x-ray examination of the chest. Electronically Signed: Artie Chester MD at 15:14 EDT , Service support , X-rays of left ribs 4 views obtained interpreted by myself as fractures of ribs 6 and 7 without evidence of pneumothorax. Radiology in agreement. EKG Initial EKG: Attestation: I personally reviewed and interpreted this EKG as follows: Comments: Sinus rhythm with a ventricular rate of 69 bpm with right bundle branch block Discharge Plan Triage Chief Complaint: Abd Pain ED Provider: Piotr Kwong Dx/Rx/DC Orders Clinical Impression: Fracture of rib, Dizziness, Weakness, Adult failure to thrive Prescriptions: No Action fluticasone propion-salmeterol [Advair Diskus] 250-50 mcg/dose blister with device 1 inh INHALATION BID PRN (Reason: Wheezing) RF: 0 furosemide 40 mg tablet 80 mg PO DAILY RF: 0 nitroglycerin 0.4 mg tablet, sublingual 0.4 mg SUBLINGUAL Q5-15M PRN (Reason: chest pain) Qty: 25 RF: 3 atorvastatin 10 MG tablet 10 mg PO DAILY RF: 0 clopidogrel 75 MG tablet 75 mg PO DAILY RF: 0 oxybutynin chloride 5 MG tablet extended release 24hr 10 mg PO DAILY RF: 0 omeprazole 20 MG capsule 20 mg PO DAILY RF: 0 atenolol 50 MG tablet 50 mg PO DAILY RF: 0 loratadine 10 MG tablet 10 mg PO DAILY RF: 0 melatonin 5 mg capsule 5 mg PO QHS PRN (Reason: sleep) RF: 0 potassium chloride 20 mEq tablet,ER particles/crystals 20 meq PO BID RF: 0 albuterol sulfate 90 mcg/actuation HFA aerosol inhaler 1 - 2 puff IH Q4H PRN PRN (Reason: Wheezing) RF: 0 cholecalciferol (vitamin D3) 1,000 UNIT tablet 2,000 unit PO DAILY RF: 0 amlodipine 2.5 mg tablet 2.5 mg PO DAILY RF: 0 losartan 100 mg tablet 100 mg PO DAILY Qty: 90 RF: 3 isosorbide mononitrate 60 mg tablet extended release 24 hr 60 mg PO BID Qty: 60 RF: 11 Primary Care Provider: Linn Will Referrals: Linn Will MD [Primary Care Provider] - Disposition Disposition: Acute Care Hospital [facility]
[2021-09-10 14:18] LABS: Absolute Lymphocyte Count 1.91 X10^3/uL (0.83-4.51); Absolute Neutrophil Count 1.9 X10^3/uL (2.0-7.7); Basophil# 0.13 X10^3/uL; Basophil% 2.2 % (0-1); Eosinophil# 1.35 X10^3/uL; Eosinophils% 22.7 % (0-5); Hematocrit 37.2 % (37-47); Lymphocyte # 1.91 X10^3/ul (0.83-4.51); Lymphocyte % 32.2 % (19-41); Mean Corp Hgb Conc 32.3 g/dL (32-36); Mean Corpuscular Hgb 29.6 pg (27.0-32.0); Mean Corpuscular Volume 91.6 fL (81-99); Mean Platelet Vol. 10.4 fl (6.2-12.0); Monocyte# 0.61 X10^3/uL; Monocyte% 10.3 % (0-10); NRBC Flagged by Analyzer 0 % (0-5); Neutrophil # 1.93 X10^3/uL (2.7-7.7); Neutrophil % 32.4 % (47-70); POSITIVE COUNT YES; Platelet Count 171 K/mm3 (150-450); RBC Distribution Width CV 13.9 % (11.6-14.6); RBC Distribution Width SD 47.4 fl (35.1-43.9); Red Blood Count 4.06 M/mm3 (4.2-5.4); White Blood Count 5.9 K/mm3 (4.4-11.0)
[2021-09-10 14:19] LABS: Differential Indicated SCAN CRITERIA MET
[2021-09-10 14:30] VITALS: BP 135/76; PULSE 75; RESP 20; TEMP 36.6; O2SAT 98
[2021-09-10] MEDS: 0.9% Normal Saline 1,000 ML 150 ML IV (14:31)
[2021-09-10 14:57] LABS: Platelet Estimate ADEQUATE (ADEQ); Red Cell Morphology NORM C+C NORMAL (NORM C&C)
[2021-09-10 14:59] LABS: ALB/GLOB Ratio 0.5 RATIO (0.9-2.4); AST(SGOT) 23 U/L (15-37); Alanine Aminotransfer ALT/SGPT 25 U/L (13-56); Albumin, Serum 2.8 g/dL (3.2-5.0); Alkaline Phosphatase 95 U/L (45-117); Anion Gap 8 (5-15); BUN 13 mg/dL (7-18); BUN/Creat Ratio 14.4 RATIO (10-20); Calcium,Total 8.6 mg/dL (8.5-10.1); Chloride 108 mmol/L (98-107); EST Glomerular Filtration Rate 63 mL/min (>60); Est Glom Filt Rate - Afr Amer 76 mL/min (>60); Estimated Creatinine Clearance 43.56 ml/min; Globulin 5.1 g/dL (2.2-4.2); Glucose 145 mg/dL (74-106); Lactic Acid 1.4 mmol/L (0.4-1.9); Lipase 96 U/L (73-393); Potassium 4.2 mmol/L (3.5-5.1); Protein, Total 7.9 g/dL (6.4-8.2); Sodium Level 140 mmol/L (136-145); Thyroid Stim Hormone (TSH) 1.17 uIU/mL (0.358-3.74); Troponin-I HS 12 pg/mL (3.0-54.0)
[2021-09-10 15:20] VITALS: BP 126/65; BP 126/79; PULSE 71; PULSE 75
[2021-09-10 15:27] LABS: Mucous, Urine 0 SEEN /hpf (<or=2+)
[2021-09-10 15:29] LABS: Color, Urine Yellow (Yellow); Glucose, Dipstick Normal (Normal); Ketone-Dipstick Negative (Negative); Leukocyte Esterase-Dipstick 25 /ul (Negative); Nitrite-Dipstick Negative (Negative); Occult Blood-Urine 50 /ul (Negative); Protein-Dipstick Negative (Negative); Urine Bilirubin Dipstick Negative (Negative); Urine Clarity Sl. Cloudy (Clear); Urine Urobilinogen Normal (Normal)
[2021-09-10 15:40] LABS: Red Blood Cells-Urine 0-5 SEEN /hpf (0-5); Squamous Epithelial Cells - UA 0-5 SEEN /hpf (5-10); White Blood Cells 0-5 SEEN /hpf (0-5)
[2021-09-10 15:41] LABS: Bacteria 3+ /hpf (None Seen)
[2021-09-10 15:51] VITALS: BP 126/79; PULSE 75; RESP 16; TEMP 36.6; O2SAT 96
--- NOTE | 2021-09-10 16:01 | PCM.HP.STD ---
HPI - General General Date of Admission: 09/10/21 Date of Service: 09/10/21 Chief Complaint: Generalized weakness, left-sided rib pain HPI Narrative CARMEN LAND, is a 86 F who presents to the emergency room at [facility] with a chief complaint of generalized weakness, lightheadedness, feeling unstable when she walks, and left-sided rib pain. Patient stated that she fell on Wednesday last week at her home and struck her left rib area on an oxygen tank at her home. Patient has caregivers come in 3 times a week to help her but otherwise she lives alone. Patient also voiced complaints of vague abdominal pain which she states she has had off and on for a month. Patient has also complained of some intermittent dizziness going on over the past week. Work-up in the emergency room included x-rays of her ribs on the left which showed a nondisplaced fracture of the left sixth and seventh ribs, CBC was unremarkable, chemistry profile was remarkable for a glucose of 145 and a chloride of 108, UA showed occult blood in the urine with no significant WBCs or RBCs and 3+ bacteria. Patient had no urinary complaints when I saw her in the ER. CT of the brain showed involutional changes. I talked to the patient about coming into the hospital for observation status overnight and seeing physical therapy, she seemed okay with this but she stated that she was not agreeing to go to a nursing facility if she needed to. I told her that the physician tomorrow would be discussing her care based on how physical therapy evaluated her. I will order an abdominal ultrasound due to the patient's complaints of intermittent abdominal pain over the last month. [facility] Medical History (Updated 09/10/21 @ 15:[address] Piotr Kwong, ) Acute cystitis Acute ischemic stroke Allergic rhinitis Angina pectoris Asthma Benign essential HTN Cerebrovascular disease Chronic systolic (congestive) heart failure COPD (chronic obstructive pulmonary disease) Decreased level of consciousness Dilatation of aorta Edema Encephalopathy Fall Gastroesophageal reflux disease Hallucinations History of stroke HLD (hyperlipidemia) Hypokalemia Insomnia Intellectual disability Left hip pain Lethargy Overactive bladder Shortness of breath Subdural hematoma Urinary incontinence Urinary tract infection Vitamin D deficiency Home Medications atenolol 50 mg PO DAILY 01/31/19 [History Last Taken 09/10/21] atorvastatin 10 mg PO DAILY 01/31/19 [History Last Taken 09/09/21] clopidogrel 75 mg PO DAILY 01/31/19 [History Last Taken 09/10/21] loratadine 10 mg PO DAILY 01/31/19 [History Last Taken 09/10/21] omeprazole 20 mg PO DAILY 01/31/19 [History Last Taken 09/10/21] fluticasone 250 mcg-salmeterol 50 mcg/dose blistr powdr for inhalation 1 inh INHALATION BID PRN 05/03/19 [History Last Taken 2 Weeks Ago ~08/27/21] melatonin 5 mg capsule 5 mg PO QHS PRN 09/01/19 [History Last Taken 09/09/21] potassium chloride 20 mEq tablet,extended release(part/cryst) 20 meq PO BID tab 09/01/19 [History Last Taken 09/10/21] nitroglycerin 0.4 mg sublingual tablet 0.4 mg SUBLINGUAL Q5-15M PRN #25 tab 12/07/19 [Rx Last Taken Unknown] albuterol sulfate 1 - 2 puff IH Q4H PRN PRN 06/13/20 [History Last Taken 2 Weeks Ago ~08/27/21] cholecalciferol (vitamin D3) 2,000 unit PO DAILY 06/13/20 [History Last Taken 09/10/21] furosemide 40 mg tablet 80 mg PO DAILY tab 12/17/20 [History Last Taken 09/10/21] losartan 100 mg tablet 100 mg PO DAILY #90 tab 06/06/21 [Rx Last Taken 09/10/21] isosorbide mononitrate 60 mg tablet,extended release 24 hr 60 mg PO BID #60 tab 06/11/21 [Rx Last Taken 09/10/21] amlodipine 5 mg PO DAILY 09/10/21 [History Last Taken 09/10/21] fesoterodine [Toviaz] 4 mg PO DAILY 09/10/21 [History Last Taken 09/10/21] oxybutynin chloride 15 mg PO DAILY 09/10/21 [History Last Taken 09/10/21] sitagliptin [Januvia] 50 mg PO DAILY 09/10/21 [History Last Taken 09/09/21] Allergy/AdvReac Type Severity Reaction Status Date / Time adhesive Allergy Rash Verified 09/10/21 13:14 amitriptyline Allergy CONFUSION Verified 09/10/21 13:14 codeine Allergy Hives Verified 09/10/21 13:14 hydrocodone bitartrate Allergy Hives Verified 09/10/21 13:14 [From Vicodin] Iodinated Contrast Media Allergy Hives Verified 09/10/21 13:14 [Iodinated Contrast Media - IV Dye] naproxen Allergy Unknown Verified 09/10/21 13:14 Penicillins Allergy Rash Verified 09/10/21 13:14 phenytoin sodium Allergy Hives Verified 09/10/21 13:14 [From Dilantin] phenytoin sodium extended Allergy Hives Verified 09/10/21 13:14 [From Dilantin] silicone Allergy Hives Verified 09/10/21 13:14 Family History (Reviewed 06/25/21 @ 15:25 by Emilie Chow TRAFFIC CONTROL SPECIALIST, TRAFFIC CONTROL SPECIALIST-C) Sister Heart disease Surgical History History of brain surgery History of breast biopsy History of hysterectomy History of umbilical hernia repair S/P ORIF (open reduction internal fixation) fracture (~05/19/15) Social History (Reviewed 06/25/21 @ 15:25 by Emilie Chow TRAFFIC CONTROL SPECIALIST, TRAFFIC CONTROL SPECIALIST-C) Smoking Status: Never smoker alcohol intake: never substance use type: does not use caffeine: Yes Type: carbonated beverages and coffee ROS ROS Narrative Patient complains of generalized weakness. Constitutional Constitutional: Denies anorexia, change in weight, chills, fatigue, fever(s), night sweats or weakness Eyes Eyes: Denies blurry vision, change in vision, discharge from eye(s) or eye pain ENT HEENT: Denies abnormal hearing, ear pain, headache(s) or hearing loss Cardiovascular Cardiovascular: Denies chest pain, claudication, dyspnea on exertion, edema, lightheadedness or palpitations Respiratory/Chest Respiratory/Chest: Denies cough, hemoptysis, shortness of breath at rest or shortness of breath with exertion Gastrointestinal Gastrointestinal: Reports abdominal pain; Denies constipation, diarrhea, dyspepsia, hematemesis, hematochezia, melena, nausea or vomiting Genitourinary Genitourinary: Denies burning urination, dysuria, hematuria, urinary frequency, urinary hesitancy, urinary incontinence or urinary urgency Musculoskeletal Musculoskeletal: Reports other Details: She complains of left-sided chest discomfort especially when she takes in a deep breath or coughs ; Denies back pain, joint pain, joint stiffness, joint swelling, myalgias or neck pain Neurologic Neurologic: Reports disequilibrium; Denies abnormal gait, abnormal speech, confusion, dizziness, focal weakness, headache(s), loss of vision, numbness, other visual disturbances, paresthesias, seizure-like activity, syncope or tingling Psychiatric Psychiatric: Denies anxiety, cognitive impairment, depression, homicidal ideation, irritability, mood swings or suicidal ideation Endocrine Endocrinology: Denies change in body appearance, cold intolerance, excessive sweating, heat intolerance, polydipsia or polyuria Hematologic/Lymphatic Hematologic/Lymphatic: Denies none, anemia, easy bleeding, easy bruising or lymphadenopathy Allergic/Immunologic Allergic/Immunologic: Denies rhinitis, urticaria, eczemia or asthma Vital Signs Vital Signs Vital Signs: 09/10/21 13:14 09/10/21 15:20 09/10/21 15:51 Temperature 97.2 F L 97.8 F Temperature Source Temporal Temporal Pulse Rate 69 75 Pulse Rate [Lying] 71 Pulse Rate [Sitting] 75 Respiratory Rate 15 16 Blood Pressure 128/66 H 126/79 H Blood Pressure [Lying] 126/65 H Blood Pressure [Sitting] 126/79 H Blood Pressure Mean 86 94 Blood Pressure Mean [Lying] 85 Blood Pressure Mean [Sitting] 94 Pulse Ox 96 96 Oxygen Delivery Method Room Air Room Air Weight Weight: 84.368 kg Body Mass Index (BMI) 29.9 Physical Exam Const alert, oriented x3, no apparent distress, average body habitus and healthy appearing General Appearance: cooperative, well kempt and well developed Orientation / Consciousness: awake, oriented to person, oriented to place and oriented to time HEENT normocephalic and moist oral mucous membranes Eyes PERRL, EOMs intact bilaterally and conjunctivae normal Neck nuchal rigidity, supple, no JVD, thyroid normal and no carotid bruits General: trachea midline Resp normal respiratory effort, no retractions, no use of accessory muscles and clear to auscultation bilaterally Auscultation: Negative for rales, rhonchi or wheezes Cardio regular rate, regular rhythm, S1 normal heart sound, S2 normal heart sound, no murmurs, no rub and no gallops GI normal to inspection, nondistended, normoactive bowel sounds, soft to palpation, non-tender and non-distended Extremity no clubbing, cyanosis or edema Skin no rashes or lesions noted General Skin Exam: no breakdown Neuro oriented x3, CN's II-XII intact bilaterally, no focal motor deficits and no sensory deficits noted Sensorium / Orientation: awake and alert Speech: speech normal Psych thought process normal and affect normal Results Lab / Micro Data Result Diagrams: 09/10/21 14:05 09/10/21 14:05 Labs: Laboratory Results - last 24 hr 09/10/21 14:05: WBC 5.9, RBC 4.06 L, Hgb 12.0, Hct 37.2, MCV 91.6, MCH 29.6, MCHC 32.3, RDW Std Deviation 47.4 H, RDW Coeff of Taina 13.9, Plt Count 171, MPV 10.4, Immature Gran % (Auto) 0.200, Neut % (Auto) 32.4 L, Lymph % (Auto) 32.2, [place] % (Auto) 10.3 H, Eos % (Auto) 22.7 H, Baso % (Auto) 2.2 H, Absolute Neuts (auto) 1.9 L, Absolute Lymphs (auto) 1.91, Nucleated RBC % 0, Platelet Estimate ADEQUATE, RBC Morphology NORM C+C 09/10/21 14:05: Sodium 140, Potassium 4.2, Chloride 108 H, Carbon Dioxide 24.0, Anion Gap 8, BUN 13, Creatinine 0.90, Estim Creat Clear Calc 43.56, Est GFR (MDRD) Af Amer 76, Est GFR (MDRD) Non-Af 63, BUN/Creatinine Ratio 14.4, Glucose 145 H, Calcium 8.6, Total Bilirubin 0.30, AST 23, ALT 25, Alkaline Phosphatase 95, Troponin I High Sens 12, Total Protein 7.9, Albumin 2.8 L, Globulin 5.1 H, Albumin/Globulin Ratio 0.5 L, Lipase 96, TSH 1.17 09/10/21 14:05: Lactic Acid 1.4 09/10/21 15:20: Urine Color Yellow, Urine Clarity Sl. Cloudy, Urine pH 6.0, Ur Specific [place] 1.010, Urine Protein Negative, Urine Glucose (UA) Normal, Urine Ketones Negative, Urine Occult Blood 50 H, Urine Nitrite Negative, Urine Bilirubin Negative, Urine Urobilinogen Normal, Ur Leukocyte Esterase 25 H, Urine RBC 0-5 SEEN, Urine WBC 0-5 SEEN, Ur Squamous Epith Cells 0-5 SEEN, Urine Bacteria 3+, Urine Mucus 0 SEEN Radiology Impression Brain CT 09/10/21 13:41 IMPRESSION: Chronic involutional changes of the brain. Electronically Signed: Artie Chester MD at 15:15 EDT , Service support , Ribs w/Chest X-Ray 09/10/21 13:43 IMPRESSION: RIBS: Nondisplaced fractures of the left sixth and seventh ribs. CHEST: Normal x-ray examination of the chest. Electronically Signed: Artie Chester MD at 15:14 EDT , Service support , Assessment & Plan Assessment/Plan (1) Weakness: PLAN: 1. Acute debility-with complaints of multiple symptoms, e.g. dizziness, left rib pain, mid abdominal discomfort intermittently-patient will be placed in observation status on [facility], she will be seen by PT and OT #2 acute left rib fractures-patient will take Tylenol for pain #3 COPD-patient admits to history of COPD, she uses oxygen at night occasionally, patient's pulse ox will be monitored #4 chronic abdominal pain-I will write for the patient have an ultrasound of her abdomen and pelvis #5 essential hypertension #6 hyperlipidemia Charges/Coding Visit Charges OBSV E&M: 48592 Initial observation care L3
[2021-09-10 16:20] VITALS: PULSE 80; RESP 20; O2SAT 95; BMI 30.5
--- NOTE | 2021-09-10 16:23 | US_ITS ---
STUDY: ABDOMINAL ULTRASOUND REASON FOR EXAM: Female, 86 years old. Abdominal pain. TECHNIQUE: Transabdominal ultrasound was performed with real-time and static singh scale imaging. TECHNICAL QUALITY: Limited. Examination limited due to the patient?s condition. COMPARISON: None. FINDINGS: Liver: The liver measures 15.6 cm. There is normal echogenicity of the liver. The bile ducts are within normal limits. There is hepatic color flow. The direction of portal flow is hepatopetal. There is no demonstrated mass lesion. Portal vein measurement: Gallbladder: Normal distended gallbladder. The gallbladder wall measures 2.3 mm. There is a negative sonographic Rodriguez''s sign. There is no pericholecystic fluid. There are no gallstones. Common Bile Duct (C.B.D.): The common bile duct measures 3.2 mm. Pancreas: Normal size of the head, body and tail of the pancreas. There is increased echogenicity of the pancreas. There is no demonstrated pancreatic mass or cyst. Spleen: Normal size of the spleen. The spleen measures 11 cm x 10.9 cm x 4.8 cm. Right Kidney: Normal size of the right kidney. The right kidney measures 10.4 cm x 5.2 cm x 4.6 cm. Normal renal cortex. The right cortex measures 1 cm. There is a 2.6 cm x 2 cm x 1.7 cm right renal cyst. There is no right hydronephrosis. Left Kidney: Normal size of the left kidney. The left kidney measures 11.4 cm x 5.6 cm x 5.1 cm. Normal renal cortex. The left cortex measures 1.3 cm. There is no demonstrated renal mass or cyst. There is no left hydronephrosis. Aorta: Unremarkable I.V.C.: The IVC is patent. There is no ascites. US/Abdomen Complete IMPRESSION: Right renal cyst. Electronically Signed: Artie Chester MD at 12:16 EDT , Service support ,
[2021-09-10] MEDS: Potassium Chloride Oral Tablet 20 MEQ PO (18:25)
--- NOTE | 2021-09-10 19:46 | PCS.PANDOC ---
PANDEMIC DOCUMENTATION INITIATED: Date: 09/10/21 Time: 1899
[2021-09-10 19:50] VITALS: BP 154/76; PULSE 73; RESP 18; TEMP 36.6; O2SAT 95
[2021-09-10] MEDS: Atorvastatin Calcium 10 MG Tablet PO (22:27)
[2021-09-10] MEDS: Heparin Injection (Vial) 5,000 UNIT/ML VIAL 5000 UNIT SC (22:27)
[2021-09-10] MEDS: Isosorbide Mononitrate 60 MG Tablet PO (22:27)
[2021-09-10] MEDS: MELATONIN 10 MG TABLET 5 MG PO (22:43)
[2021-09-11] VITALS (8 sets, daily range): BP systolic 117–149; BP diastolic 56–73; PULSE 63–76; RESP 16–20; TEMP 36.3–37.3; O2SAT 90–93
[2021-09-11] MEDS: Budesonide Respules 0.5 MG/2 ML AMPUL.NEB. INHALATION (06:54)
[2021-09-11] MEDS: Ipratropium/Albuterol Sulfate 3 ML AMPUL.NEB INHALATION (06:54)
[2021-09-11] MEDS: Furosemide 80 MG Tablet PO (09:13)
[2021-09-11] MEDS: Potassium Chloride Oral Tablet 20 MEQ PO ×2 (09:13→17:50)
[2021-09-11] MEDS: Atenolol 50 MG Tablet PO (09:13)
[2021-09-11] MEDS: Cholecalciferol (VIT D3) 25 MCG TABLET (1,000 UNITS) 50 MCG PO (09:14)
[2021-09-11] MEDS: Isosorbide Mononitrate 60 MG Tablet PO (09:14)
[2021-09-11] MEDS: amLODIPine 2.5 MG Tablet PO (09:14)
[2021-09-11] MEDS: Clopidogrel Bisulfate 75 MG Tablet PO (09:14)
[2021-09-11] MEDS: Losartan Potassium 100 MG Tablet PO (09:14)
[2021-09-11] MEDS: Pantoprazole Sodium 20 MG Tablet PO (09:15)
[2021-09-11] MEDS: Acetaminophen 325 MG Tablet 650 MG PO (09:17)
[2021-09-11] MEDS: Heparin Injection (Vial) 5,000 UNIT/ML VIAL 5000 UNIT SC (09:19)
[2021-09-11] MEDS: Tolterodine Tartrate 4 MG CAP.SA PO (09:23)
--- NOTE | 2021-09-11 11:10 | CASEMGMT ---
IBRAHIMA HARRY Face to Face with patient for initial transition planning/care coordination assessment. RN PIERO introduced self and role at [facility]. Patient sitting in chair, alert and oriented. Patient willing to participate in assessment and is able to answer all questions appropriately. Care providers, pharmacy, and demographics verified. Patient wishes to discharge home and would like [facility] at discharge. Patient was provided a list of [facility] providers including quality and resource use data and consistent with the patient?s preferred geographic region, medical needs, and insurance network. The patient?s preferred provider is [facility]. RN PIERO sent referral to [facility] and they are able to accept the patient. Patient states he has no further needs or concerns at this time. CM to follow for discharge planning needs that may arise. PCP: Suman Specialists: none Preferred Pharmacy: [facility] Insurance: Leonardo Shea Prescription Benefit: yes Living Will/HPOA: yes, son Cuong Gayle HPOA LNOK: son, daughter Living Arrangements: Patient lives with son in a single story home with 2 steps and railing to enter the home. Patient states she is independent for self care at home. Transportation: son or son's girlfriend DME/HHC: Patient states she has shower chair, raised toilet, cane, walker, rollator, wheelchair, grab bars, and home oxygen. Patient has had [facility] in the past. Patient has been to TCU. Patient is active with [facility] for aide services. Patient had PIERO Camarillo. Disposition Plan: Patient to discharge home with family support and follow-up plans in place. Janelle LAMB, RN, CM
--- NOTE | 2021-09-11 12:25 | CASEMGMT ---
VICKY left a message for Jahaira Camarillo, pt's CM from [facility], letting her know that pt is here and is discharging today. VICKY also left a message for the covering case supervisor that pt is here and is leaving today. Home health can see pt on Wednesday, SW let pt know, she was aware as home health already called. No further needs anticipated. CARLOS EDUARDO Mauricio
--- NOTE | 2021-09-11 12:34 | CASEMGMT ---
LW/Healthcare POA forms scanned into summary tab of echart. Son Cuong Gayle is listed as Healthcare POA. CARLOS EDUARDO Mauricio
[2021-09-11] MEDS: Albuterol 2.5 MG/3 ML VIAL.NEB. INHALATION (13:20)
--- NOTE | 2021-09-11 13:42 | DS.PCM_ITS ---
Providers Date of Admission: 09/10/21 Primary Care Physician: Dr. Linn Will MD Reason For Visit: ACUTE DEBILITY Diagnosis Discharge Diagnosis (1) Weakness: Status: Acute Code(s): R53.1 - Weakness Medications at Discharge Home Medications atenolol 50 mg PO DAILY 01/31/19 atorvastatin 10 mg PO DAILY 01/31/19 clopidogrel 75 mg PO DAILY 01/31/19 loratadine 10 mg PO DAILY 01/31/19 omeprazole 20 mg PO DAILY 01/31/19 melatonin 5 mg capsule 5 mg PO QHS PRN 09/01/19 potassium chloride 20 mEq tablet,extended release(part/cryst) 20 meq PO BID tab 09/01/19 nitroglycerin 0.4 mg sublingual tablet 0.4 mg SUBLINGUAL Q5-15M PRN #25 tab 12/07/19 albuterol sulfate 1 - 2 puff IH Q4H PRN PRN 06/13/20 cholecalciferol (vitamin D3) 2,000 unit PO DAILY 06/13/20 furosemide 40 mg tablet 80 mg PO DAILY tab 12/17/20 losartan 100 mg tablet 100 mg PO DAILY #90 tab 06/06/21 isosorbide mononitrate 60 mg tablet,extended release 24 hr 60 mg PO BID #60 tab 06/11/21 amlodipine 2.5 mg PO DAILY 09/10/21 fluticasone propion-salmeterol [Advair Diskus] 1 inh INHALATION BID 09/10/21 melatonin 5 mg PO QHS 09/10/21 oxybutynin chloride 10 mg PO DAILY 09/10/21 acetaminophen [Tylenol 8 Hour] 650 mg PO Q8H PRN #30 tab 09/11/21 ciprofloxacin HCl 500 mg PO BID #10 tab 09/11/21 meclizine 25 mg PO TID PRN #30 tab 09/11/21 Hospital Course Operations None Procedures None Summary of Care Provided Minutes Spent on Discharge: 45 Hospital Course: Patient is an 86 y/o female with a PMH as outlined who was admitted with a complaint of generalised weakness, lightheadedness and left rib pain. She had fallen the Wednesday before admission and struck her left rib area on an oxygen tank. She also had intermittent weakness and dizziness. Imaging done showed nondisplaced fracture of the left sixth and seventh ribs. urinalysis showed 3+ bacteria though patient had no urinary symptoms. CT fo the brain was negative. SHe was admitted for debility due to nondisplaced left rib fractures. Pain improved and became better. She also worked with physical therapy and did well. She remained stable and was discharged home on 09/11/2021 with home health, to follow up with her PCP in 1-2 weeks. Patient seen and examined prior to discharge. She felt better and had no complaitns. Review of systems otherwise negative. Labs and vitals reviewd. Home meds reviewed and reconciled. Of note, she was also discharged with script for PO ciprofloxacin for 5 days for UTI. Physical Exam Const alert, oriented x3 and no apparent distress General Appearance: cooperative and comfortable Orientation / Consciousness: awake Exam Limitations: no limitations HEENT normocephalic, head/scalp atraumatic, hearing grossly normal bilaterally and moist oral mucous membranes Eyes PERRL, EOMs intact bilaterally and conjunctivae normal Neck no lymphadenopathy Resp normal respiratory effort, no retractions, no use of accessory muscles and clear to auscultation bilaterally Cardio regular rate, regular rhythm, S1 normal heart sound, S2 normal heart sound and no murmurs GI normal to inspection, nondistended, normoactive bowel sounds, soft to palpation, non-tender and non-distended Extremity normal to inspection, full ROM and no clubbing, cyanosis or edema Skin no rashes or lesions noted Neuro oriented x3, CN's II-XII intact bilaterally and moves all extremities Sensorium / Orientation: awake and alert Psych affect normal Weight / BMI Weight Weight: 189 lb 6.033 oz Body Mass Index (BMI) 30.5 ABG / Lab / Microbiology Data Result Diagrams: 09/10/21 14:05 09/10/21 14:05 Laboratory: Laboratory Results - last 24 hr 09/10/21 14:05: WBC 5.9, RBC 4.06 L, Hgb 12.0, Hct 37.2, MCV 91.6, MCH 29.6, MCHC 32.3, RDW Std Deviation 47.4 H, RDW Coeff of Taina 13.9, Plt Count 171, MPV 10.4, Immature Gran % (Auto) 0.200, Neut % (Auto) 32.4 L, Lymph % (Auto) 32.2, [place] % (Auto) 10.3 H, Eos % (Auto) 22.7 H, Baso % (Auto) 2.2 H, Absolute Neuts (auto) 1.9 L, Absolute Lymphs (auto) 1.91, Nucleated RBC % 0, Platelet Estimate ADEQUATE, RBC Morphology NORM C+C 09/10/21 14:05: Sodium 140, Potassium 4.2, Chloride 108 H, Carbon Dioxide 24.0, Anion Gap 8, BUN 13, Creatinine 0.90, Estim Creat Clear Calc 43.56, Est GFR (MDRD) Af Amer 76, Est GFR (MDRD) Non-Af 63, BUN/Creatinine Ratio 14.4, Glucose 145 H, Calcium 8.6, Total Bilirubin 0.30, AST 23, ALT 25, Alkaline Phosphatase 95, Troponin I High Sens 12, Total Protein 7.9, Albumin 2.8 L, Globulin 5.1 H, Albumin/Globulin Ratio 0.5 L, Lipase 96, TSH 1.17 09/10/21 14:05: Lactic Acid 1.4 09/10/21 15:20: Urine Color Yellow, Urine Clarity Sl. Cloudy, Urine pH 6.0, Ur Specific Drummond 1.010, Urine Protein Negative, Urine Glucose (UA) Normal, Urine Ketones Negative, Urine Occult Blood 50 H, Urine Nitrite Negative, Urine Bilirubin Negative, Urine Urobilinogen Normal, Ur Leukocyte Esterase 25 H, Urine RBC 0-5 SEEN, Urine WBC 0-5 SEEN, Ur Squamous Epith Cells 0-5 SEEN, Urine Bacteria 3+, Urine Mucus 0 SEEN Microbiology: Microbiology 09/11/21 09:05 Nasal Secretion SARS-CoV-2 Antigen (Rapid) - Final Radiography Diagnostic Testing: Radiology Impression Brain CT 09/10/21 13:41 IMPRESSION: Chronic involutional changes of the brain. Electronically Signed: Artie Chester MD at 15:15 EDT , Service support , Ribs w/Chest X-Ray 09/10/21 13:43 IMPRESSION: RIBS: Nondisplaced fractures of the left sixth and seventh ribs. CHEST: Normal x-ray examination of the chest. Electronically Signed: Artie Chester MD at 15:14 EDT , Service support , Abdomen Ultrasound 09/10/21 16:23 IMPRESSION: Right renal cyst. Electronically Signed: Artie Chester MD at 12:16 EDT , Service support , D/C Instructions Discharge Diet: Low fat / Low cholesterol Discharge Activity: Return to Normal Activity Weight Bearing Status: Weight bearing as tolerated Call your doctor if you observe: Fever of 101 or Higher, Shortness of breath, Swelling in the ankles, Increased palpitations (irregular heartbeat) and Uncontrolled pain Meaningful Use Info Meaningful Use Diagnoses (Choose all that apply): None applicable Discharge Plan Admission Admit Date/Time: 09/10/21 15:40 Primary Reason for Your Visit: debility, nondisplaced rib fractures Attending Provider: Katy Dubon Primary Care Provider: Linn Will Instructions Patient Instructions: ED Fall Dizziness Weakn Balance Discharge Orders/Prescriptions Prescriptions: New meclizine 25 mg tablet 25 mg PO TID PRN (Reason: dizziness) Qty: 30 RF: 1 ciprofloxacin HCl 500 mg tablet 500 mg PO BID Qty: 10 RF: 0 acetaminophen [Tylenol 8 Hour] 650 mg tablet extended release 650 mg PO Q8H PRN (Reason: pain) Qty: 30 RF: 0 Continued furosemide 40 mg tablet 80 mg PO DAILY RF: 0 nitroglycerin 0.4 mg tablet, sublingual 0.4 mg SUBLINGUAL Q5-15M PRN (Reason: chest pain) Qty: 25 RF: 3 atorvastatin 10 MG tablet 10 mg PO DAILY RF: 0 clopidogrel 75 MG tablet 75 mg PO DAILY RF: 0 omeprazole 20 MG capsule 20 mg PO DAILY RF: 0 atenolol 50 MG tablet 50 mg PO DAILY RF: 0 loratadine 10 MG tablet 10 mg PO DAILY RF: 0 melatonin 5 mg capsule 5 mg PO QHS PRN (Reason: sleep) RF: 0 potassium chloride 20 mEq tablet,ER particles/crystals 20 meq PO BID RF: 0 albuterol sulfate 90 mcg/actuation HFA aerosol inhaler 1 - 2 puff IH Q4H PRN PRN (Reason: Wheezing) RF: 0 cholecalciferol (vitamin D3) 1,000 UNIT tablet 2,000 unit PO DAILY RF: 0 oxybutynin chloride 15 mg tablet extended release 24hr 10 mg PO DAILY RF: 0 amlodipine 5 mg tablet 2.5 mg PO DAILY RF: 0 melatonin 5 mg Tablet 5 mg PO QHS RF: 0 fluticasone propion-salmeterol [Advair Diskus] 250-50 mcg/dose Blister With Device 1 inh INHALATION BID RF: 0 losartan 100 mg tablet 100 mg PO DAILY Qty: 90 RF: 3 isosorbide mononitrate 60 mg tablet extended release 24 hr 60 mg PO BID Qty: 60 RF: 11 Referrals / Follow Up: Linn Will MD [Primary Care Provider] - Within 2 Weeks Disposition Disposition (needs filled in before D/C Order can be placed): Home Health Service Charges/Coding Visit Charges OBSV E&M: 66020 Observation care discharge
--- NOTE | 2021-09-11 16:49 | NURSING ---
Manuel warning- emergency protocol followed.
--- NOTE | 2021-09-12 12:14 | CASEMGMT ---
Jahaira Camarillo from [facility] called, asked if pt did go home, SW informed her she did. She requested discharge instructions, instructions faxed. Jahaira has not reached pt via telephone, will continue to try to reach her. CARLOS EDUARDO Mauricio
== END 2021-09-11 18:29 | disposition home health service (06) ==
LOC: ED 15:35 → MS2 16:04
PROVIDERS: Admitting Provider Internal Medicine; Emergency Provider Emergency Medicine; PCP Internal Medicine; Visit Provider Student in an Organized Health Care Education/Training Program
DX: R53.1 Weakness (principal); N30.00 Acute cystitis without hematuria; S22.42XA Multiple fractures of ribs, left side, initial encounter for closed fracture; I50.22 Chronic systolic (congestive) heart failure; I11.0 Hypertensive heart disease with heart failure; K21.9 Gastro-esophageal reflux disease without esophagitis; J44.9 Chronic obstructive pulmonary disease, unspecified; E78.5 Hyperlipidemia, unspecified; Z23 Encounter for immunization; N32.81 Overactive bladder; E55.9 Vitamin D deficiency, unspecified; W01.0XXA Fall on same level from slipping, tripping and stumbling without subsequent striking against object, initial encounter; Y93.9 Activity, unspecified; Y92.009 Unspecified place in unspecified non-institutional (private) residence as the place of occurrence of the external cause; Y99.9 Unspecified external cause status; Z79.899 Other long term (current) drug therapy; Z79.51 Long term (current) use of inhaled steroids; Z79.02 Long term (current) use of antithrombotics/antiplatelets
CPT/HCPCS: 70450; 71101; 76700; 80053; 81001; 83605; 83690; 84443; 84484; 85025; 87426; 93005; 94640; 96360; 96361; 96372; 97162; 97166; 99218; 99285; J7030; 90686; A4216; G0378

== ENCOUNTER 2022-01-13 13:17 | Outpatient (CLI) | payer MEDICARE, MEDICAID, SELFPAY ==
--- NOTE | 2022-01-13 13:23 | ECHOCS_ITS ---
Reason For Study: Dilated AO Procedure This was a 2D Doppler, Color Flow transthoracic echocardiogram. Techncially difficult study due to patients body habitus. Contrast injection performed. The study was technically difficult. Contrast injection was performed. Exam performed in department. Left Ventricle Normal LV size. Left ventricular systolic function is normal. The estimated ejection fraction is 65 %. Diastolic function is indeterminate. No regional wall motion abnormalities noted. Right Ventricle Normal RV size. Normal systolic function. Atria The left atrium is moderately enlarged. Normal right atrium. No doppler evidence for ASD. Mitral Valve There is mild mitral annular calcification. Normal mitral valve. Mild-Moderate (1-2+) mitral valve insufficiency. Tricuspid Valve Normal tricuspid valve. Trivial tricuspid valve insufficiency. Unable to estimate RV systolic pressure/pulmonary artery pressure due to technically difficult study. Aortic Valve Trisinus/trileaflet aortic valve. Mild diffuse aortic valve thickening. Mild focal aortic valve calcification. Mild (1+) aortic valve insufficiency. Pulmonic Valve The pulmonic valve is not well visualized. Mild (1+) pulmonic valve insufficiency. Great Vessels Mildly dilated aortic root. Pericardium/Pleural No pericardial effusion. Medication 22 gauge I.V. with prn adaptor inserted into left arm. Diluted definity 2ml given slow IV push to enhance endocardial definition. MMode/2D Measurements & Calculations LVIDd: 5.6 cm IVSd: 1.1 cm Ao root diam: 4.0 cm LVIDs: 3.7 cm LVPWd: 1.0 cm FS: 33.8 % LAV(MOD-sp4): 59.0 ml LA A4 area: 18.4 cm2 RA A4 area: 15.1 cm2 Time Measurements MV dec time: 0.32 sec Doppler Measurements & Calculations MV E max chaz: 31.1 cm/sec Lat Peak E' Chaz: 3.1 cm/sec Med Peak E' Chaz: 4.1 cm/sec MV A max chaz: 78.3 cm/sec E/E' lat: 10.0 E/E' med: 7.6 MV E/A: 0.40 MV V2 max: 95.8 cm/sec MV P1/2t max chaz: 60.8 cm/sec Ao V2 max: 137.2 cm/sec MV max P.7 mmHg MV P1/2t: 118.2 msec Ao max P.5 mmHg MV V2 mean: 47.4 cm/sec MV dec slope: 150.7 cm/sec2 MV mean P.1 mmHg MV V2 VTI: 23.7 cm MVA(P1/2t): 1.9 cm2 AI max chaz: 439.9 cm/sec LV V1 max: 94.5 cm/sec PA V2 max: 67.4 cm/sec AI max P.4 mmHg LV V1 max P.6 mmHg AI dec slope: 240.6 cm/sec2 AI P1/2t: 535.6 msec ECHO/Echo Complete W/ Contrast Interpretation Summary The study was technically difficult. Contrast injection was performed. Left ventricular systolic function is normal. The estimated ejection fraction is 65 %. The left atrium is moderately enlarged. There is mild mitral annular calcification. Mild-Moderate (1-2+) mitral valve insufficiency. Trivial tricuspid valve insufficiency. Mild diffuse aortic valve thickening. Mild focal aortic valve calcification. Mild (1+) aortic valve insufficiency. Mild (1+) pulmonic valve insufficiency. Mildly dilated aortic root. Unable to estimate RV systolic pressure/pulmonary artery pressure due to techni alexy difficult study. Diastolic function is indeterminate. Ordering Physician: Emilie Chow Referring Physician: Emilie Chow Performed By: Shakir Tong RCS
== END 2022-01-13 23:59 | disposition home or self-care (01) ==
PROVIDERS: PCP Internal Medicine; Referring Provider Nurse Practitioner Gerontology; Visit Provider Nurse Practitioner Gerontology
DX: I50.22 Chronic systolic (congestive) heart failure (principal); I77.819 Aortic ectasia, unspecified site
CPT/HCPCS: 93306; Q9957; A4216; C8929

== ENCOUNTER 2022-01-24 20:03 | Inpatient (IN) | payer MEDICARE, MEDICAID, SELFPAY ==
[2022-01-24 20:05] VITALS: BP 174/91; PULSE 74; RESP 18; TEMP 36.9; O2SAT 94; BMI 30.9
--- NOTE | 2022-01-24 20:16 | CT_ITS ---
INDICATION: head trauma EXAMINATION: CT BRAIN - CT Head or Brain W/O Contrast Injection TECHNIQUE: Multiple axial images were obtained of the head without intravenous contrast. A radiation dose optimization technique was used for this scan. IV Contrast dosage and agent: None. COMPARISON: 09/10/[address] FINDINGS: BRAIN PARENCHYMA: No intra- or extra-axial hemorrhage. No intracranial mass or mass effect. Florentino/white matter differentiation is maintained and there is no blurring of the basal ganglia. There is no hyperdense vessel. Bilateral chronic small vessel ischemic changes with decreased periventricular white matter, left greater than right. Area of encephalomalacia in the lateral periphery of the left frontal lobe unchanged. There is significant atherosclerosis bilateral vertebral arteries, basilar artery, cavernous carotid arteries and proximal right left middle cerebral arteries. Posterior fossa structures are unremarkable. CSF SPACES: Appropriate for age. No hydrocephalus. Basal cisterns are patent. CALVARIUM, SKULL BASE, PARANASAL SINUSES AND MASTOID AIR CELLS: Clear. No discrete lytic or blastic abnormalities. ORBITS: Both globes, extraocular muscles, optic nerves and retrobulbar fat appear unremarkable. ASPECTS Score for Acute Strokes: 10 CT/Brain/Head without Contrast IMPRESSION: No acute intracranial pathology. Left frontal lobe lateral peripheral area of encephalomalacia. Chronic small vessel ischemic changes. Extensive atherosclerosis intracranial vessels. Electronically Signed: Frederick Galindo DO at 21:22 EST ,
--- NOTE | 2022-01-24 20:16 | EKG12_ITS ---
Test Reason : FALL Blood Pressure : / mmHG Vent. Rate : 075 BPM Atrial Rate : 075 BPM P-R Int : 152 ms QRS Dur : 136 ms QT Int : 456 ms P-R-T Axes : 092 -20 056 degrees QTc Int : 509 ms Normal sinus rhythm Right bundle branch block Abnormal ECG Confirmed by SHARRON LAM, CESILIA ([id number]), newspaper editor SAMAN MANUEL ([id number]) on 01/26/2022 10:47:28 AM Referred By: SARTHAK Confirmed By:CESILIA MCDERMOTT MD
--- NOTE | 2022-01-24 20:16 | RAD_ITS ---
INDICATION: fall EXAMINATION/TECHNIQUE: X-RAY - RIGHT XR Hip Unilateral with Pelvis when performed; 2-3 Views 3 VIEWS COMPARISON: 01/25/2021 left hip x-rays FINDINGS: SOFT TISSUES: No soft tissue swelling or gas. No radiopaque foreign body. Significant femoral artery atherosclerosis. Note of some residual intravenous contrast in the urinary bladder. BONES/JOINTS: There is a intertrochanteric fracture right hip. Lesser tuberosity fracture fragment shows medial and proximal leg radiation, mild to moderate. Patient status post intramedullary nail left femur and traversing screw left femoral neck. Preservation of the joint space and no degenerative bony proliferative changes. No sclerotic or destructive changes observed. RAD/HIP, UNI W/ Pelvis 2-3 Views IMPRESSION: Mildly displaced, mildly comminuted right hip, intertrochanteric fracture. Electronically Signed: Frederick Galindo DO at 21:37 EST ,
--- NOTE | 2022-01-24 20:19 | ED.VIS.FALL ---
HPI HPI - Fall History of Present Illness Chief Complaint: Fall Detail of Chief Complaint: Right hip pain Informant: patient Occured/Mechanism Occurred: Today Mechanism/Context: Yes same level fall Usually ambulates: Without assistance Pain/Injury Pain Location: lower extremity Quality of Pain: Sharp Current Severity: Moderate Maximum Severity: Moderate Associated Symptoms Associated Symptoms: Positive for Loss of function and Inability to ambulate; Negative for Parasthesias, Weakness, Loss of consciousness and Amnesia Narrative Narrative: 86-year-old female was at home turned and lost her balance fell injuring her right hip. Unable to stand or ambulate. She believes she broke her hip. She is on Plavix she did hit her head. She denies LOC or headache. No neck pain. Patient is a past medical history of 2 prior strokes 1 including intracranial bleed. Prior similar symptoms: No Recent Illness/Hospitalization: No PFSH PFSH Medical History (Updated 01/24/22 @ 22:[address] Brian Rodriguez MD) Acute cystitis Acute ischemic stroke Adult failure to thrive Allergic rhinitis Angina pectoris Asthma Benign essential HTN Cerebrovascular disease Chronic systolic (congestive) heart failure COPD (chronic obstructive pulmonary disease) Decreased level of consciousness Dilatation of aorta Dizziness Edema Encephalopathy Fall Fracture of rib Gastroesophageal reflux disease Hallucinations History of stroke HLD (hyperlipidemia) Hypokalemia Insomnia Intellectual disability Left hip pain Lethargy Overactive bladder Shortness of breath Subdural hematoma Urinary incontinence Urinary tract infection Vitamin D deficiency Weakness Home Medications atenolol 50 mg PO DAILY 01/31/19 [History Last Taken 09/10/21] atorvastatin 10 mg PO DAILY 01/31/19 [History Last Taken 09/09/21] clopidogrel 75 mg PO DAILY 01/31/19 [History Last Taken 09/10/21] loratadine 10 mg PO DAILY 01/31/19 [History Last Taken 09/10/21] omeprazole 20 mg PO DAILY 01/31/19 [History Last Taken 09/10/21] melatonin 5 mg capsule 5 mg PO QHS PRN 09/01/19 [History Last Taken 09/09/21] potassium chloride 20 mEq tablet,extended release(part/cryst) 20 meq PO BID tab 09/01/19 [History Last Taken 09/10/21] albuterol sulfate 1 - 2 puff IH Q4H PRN PRN 06/13/20 [History Last Taken 2 Weeks Ago ~08/27/21] cholecalciferol (vitamin D3) 2,000 unit PO DAILY 06/13/20 [History Last Taken 09/10/21] losartan 100 mg tablet 100 mg PO DAILY #90 tab 06/06/21 [Rx Last Taken 09/10/21] isosorbide mononitrate 60 mg tablet,extended release 24 hr 60 mg PO BID #60 tab 06/11/21 [Rx Last Taken 09/10/21] fluticasone propion-salmeterol [Advair Diskus] 1 inh INHALATION BID 09/10/21 [History Last Taken Unknown] melatonin 5 mg PO QHS 09/10/21 [History Last Taken Unknown] oxybutynin chloride 10 mg PO DAILY 09/10/21 [History Last Taken 09/10/21] acetaminophen [Tylenol 8 Hour] 650 mg PO Q8H PRN #30 tab 09/11/21 [Rx Last Taken Unknown] ciprofloxacin HCl 500 mg PO BID #10 tab 09/11/21 [Rx Last Taken Unknown] meclizine 25 mg PO TID PRN #30 tab 09/11/21 [Rx Last Taken Unknown] amlodipine 5 mg tablet 5 mg PO DAILY #90 tab 12/01/21 [Rx Last Taken Unknown] furosemide 40 mg tablet 40 mg PO DAILY tab 12/01/21 [History Last Taken Unknown] nitroglycerin 0.4 mg sublingual tablet 0.4 mg SUBLINGUAL Q5-15M PRN #25 tab 12/01/21 [Rx Last Taken Unknown] Allergy/AdvReac Type Severity Reaction Status Date / Time adhesive Allergy Rash Verified 12/01/21 11:19 amitriptyline Allergy CONFUSION Verified 12/01/21 11:19 codeine Allergy Hives Verified 12/01/21 11:19 hydrocodone bitartrate Allergy Hives Verified 12/01/21 11:19 [From Vicodin] Iodinated Contrast Media Allergy Hives Verified 12/01/21 11:19 [Iodinated Contrast Media - IV Dye] naproxen Allergy Unknown Verified 12/01/21 11:19 Penicillins Allergy Rash Verified 12/01/21 11:19 phenytoin sodium Allergy Hives Verified 12/01/21 11:19 [From Dilantin] phenytoin sodium extended Allergy Hives Verified 12/01/21 11:19 [From Dilantin] silicone Allergy Hives Verified 12/01/21 11:19 Family History Sister Heart disease Surgical History History of brain surgery History of breast biopsy History of hysterectomy History of umbilical hernia repair S/P ORIF (open reduction internal fixation) fracture (~05/19/15) Social History Smoking Status: Never smoker alcohol intake: never substance use type: does not use caffeine: Yes Type: carbonated beverages and coffee ROS ROS ED ROS Narrative Denies recent illness. Chronic diarrhea. Review of Systems ROS Unobtainable: Denies due to encephalopathy Constitutional Constitutional ED: Denies fever(s) Eyes Eyes: Denies change in vision ENT ENT ED: Denies ear pain Cardiovascular Cardiovascular: Denies chest pain Respiratory/Chest Respiratory/Chest: Denies cough or dyspnea Gastrointestinal Gastrointestinal: Reports diarrhea; Denies abdominal pain, nausea or vomiting Genitourinary Genitourinary ED: Denies dysuria Musculoskeletal Musculoskeletal: Denies myalgias Integumentary Denies rash Neurologic Neurologic: Denies headache(s) Psychiatric Psychiatric: Denies depression Endocrine Endocrinology: Denies polyuria Hematologic/Lymphatic Hematologic/Lymphatic: Denies easy bruising Allergic/Immunologic Allergic/Immunologic ED: Denies urticaria EXAM Physical Exam Narrative Exam Narrative: 86-year-old female no acute distress vital signs stable afebrile. Lying in bed. H EENT exam pupils round reactive light. No signs of facial trauma. No hematoma. Scalp nontender. C-spine nontender. Trachea midline. Lungs clear to auscultation bilaterally. Heart regular rhythm rate about 75 no murmur. Chest wall and ribs nontender. Abdomen soft nontender. Pelvic girdle intact. Right hip tender to palpation. Shortened and rotated. Right ankle and knee are nontender. Dorsi plantar flexion intact. Left lower extremity nontender no deformity. Both upper extremities are nontender with 5-5 bank messenger strength. Back is nontender. Neurologically she is awake and alert. Answering questions and following commands. Const Vital Signs: 01/24/22 20:05 01/24/22 20:09 Temperature 98.4 F Temperature Source Oral Pulse Rate 74 Respiratory Rate 18 Respiratory Effort Normal Respiratory Depth Normal Respiratory Pattern Normal Blood Pressure 174/91 H Blood Pressure Mean 118 Pulse Ox 94 Oxygen Delivery Method Room Air Room Air Positive well nourished and well developed; Negative for cachectic, contractures or unkempt General Appearance ED: well developed and NAD; Negative for unkempt, cachectic or contractures Nutritional Appearance: Negative for cachectic HEENT Reports normocephalic trauma; Negative for atraumatic or tenderness Eyes PERRL and EOMs intact bilaterally Neck full ROM, no lymphadenopathy and supple General: Negative for tenderness Chest Wall inspection of chest normal and palpation of chest normal Resp normal respiratory effort, no retractions and clear to auscultation bilaterally Auscultation: Negative for rales, rhonchi or wheezes Cardio regular rate, regular rhythm, S1 normal heart sound, S2 normal heart sound and no murmurs GI non-tender, non-distended and no masses Auscultation: normoactive bowel sounds Palpation: soft; Negative for guarding Back/Spine no CVA tenderness Extremity Extremity Narrative: Right hip tender to palpation. Shortened and rotated. Other extremities are nontender. Normal strength. No deformity. Neuro oriented x3, moves all extremities and no focal motor deficits Sensorium / Orientation: alert, oriented to person, oriented to place and oriented to time; Negative for orientation impaired, confused, lethargic or stuporous Psych mental status grossly normal and thought process normal Appearance: Negative for unkempt Skin Lesions: no lesions Rashes: no rashes Trauma: Negative for abrasion or laceration MDM MDM MDM Narrative Medical decision making narrative: Elderly female with a fall suspected right hip fracture. X-ray and labs are being obtained. CAT scan of her head. She hit her head is on Plavix and most likely is going to need hip surgery. She will be treated with IV morphine and Zofran. Repeat exam patient is doing well she will be given additional pain medication. I spoke to orthopedics on-call and they will try to do the hip surgery tomorrow. Hospitalist is on page. Lab Data Attestation: I reviewed the patient's lab results. Lab results narrative: CBC shows a white count of 14.9. H&H of 12.4 and 37. Platelets 266. PT/INR normal. Electrolytes show a gap of 7 BUN 25 creatinine 1.1. Glucose 130. Chest x-ray shows no acute abnormality. Right hip x-ray shows a comminuted inotrope fracture. CT of the brain unremarkable. Forward Labs: Laboratory Results - last 24 hr 01/24/22 01/24/22 01/24/22 20:39 20:39 20:39 WBC 14.9 H RBC 4.08 L Hgb 12.4 Hct 37.8 MCV 92.6 MCH 30.4 MCHC 32.8 RDW Std Deviation 48.5 H RDW Coeff of Taina 14.3 Plt Count 266 MPV 10.1 Immature Gran % (Auto) STRADDLE BUGGY OPERATOR Neut % (Auto) STRADDLE BUGGY OPERATOR Lymph % (Auto) STRADDLE BUGGY OPERATOR [place] % (Auto) STRADDLE BUGGY OPERATOR Eos % (Auto) STRADDLE BUGGY OPERATOR Baso % (Auto) STRADDLE BUGGY OPERATOR Absolute Neuts (auto) 7.9 H Absolute Lymphs (auto) 4.18 Total Counted 100 Neutrophils % (Manual) 53 Lymphocytes % (Manual) 28 Monocytes % (Manual) 5 Eosinophils % (Manual) 12 H Basophils % (Manual) 2 H Nucleated RBC % STRADDLE BUGGY OPERATOR Diff Path Review May foll Atypical Lymphocytes 2+ Platelet Estimate ADEQUATE RBC Morphology NORM C+C PT 13.2 INR 1.1 Sodium 140 Potassium 3.9 Chloride 108 H Carbon Dioxide 25.0 Anion Gap 7 BUN 25 H Creatinine 1.14 H Estim Creat Clear Calc 34.39 Est GFR (MDRD) Af Amer 58 L Est GFR (MDRD) Non-Af 48 L BUN/Creatinine Ratio 21.9 H Glucose 130 H Calcium 9.5 Radiography Diagnostic Testing: Clinical Impression(s) from Imaging Studies Brain CT 01/24/22 20:16 IMPRESSION: No acute intracranial pathology. Left frontal lobe lateral peripheral area of encephalomalacia. Chronic small vessel ischemic changes. Extensive atherosclerosis intracranial vessels. Electronically Signed: Frederick Galindo DO at 21:22 EST , Hip/Pelvis X-Ray 01/24/22 20:16 IMPRESSION: Mildly displaced, mildly comminuted right hip, intertrochanteric fracture. Electronically Signed: Ferderick Galindo DO at 21:37 EST , Chest X-Ray 01/24/22 21:11 IMPRESSION: 1. New asymmetric elevation right hemidiaphragm compared to the left 2. Otherwise normal exam. Electronically Signed: Frederick Galindo, DO at 21:42 EST , Chest x-ray, portable, single view interpreted myself and the radiologist shows no acute abnormality. Chronic changes. Right hip x-ray with pelvis 3 views shows a comminuted intertrochanteric fracture. Interpreted by me and the radiologist. Rhythm Strip Rhythm Strip: Sinus Rhythm Rate: 75 Ectopy: None EKG Initial EKG: Attestation: I personally reviewed and interpreted this EKG as follows: Interpretation: Sinus Rhythm, No Acute Injury Pattern and RBBB Comments: Normal sinus rhythm rate of 75 no acute signs of FL or ischemia. Right bundle branch block. Discharge Plan Dx/Rx/DC Orders Clinical Impression: Fall, Closed fracture of right hip, Closed head injury Disposition Disposition: Acute Care Hospital [facility]
[2022-01-24] MEDS: Morphine 4 MG/ML Syringe 6 MG IV (20:47)
[2022-01-24] MEDS: Ondansetron 4 MG/2 ML Vial IV (20:47)
[2022-01-24 20:52] LABS: Hematocrit 37.8 % (37-47); Hemoglobin 12.4 g/dL (12.0-15.0); Mean Corp Hgb Conc 32.8 g/dL (32-36); Mean Corpuscular Hgb 30.4 pg (27.0-32.0); Mean Corpuscular Volume 92.6 fL (81-99); Mean Platelet Vol. 10.1 fl (6.2-12.0); POSITIVE DIFFERENTIAL YES; Platelet Count 266 K/mm3 (150-450); RBC Distribution Width CV 14.3 % (11.6-14.6); RBC Distribution Width SD 48.5 fl (35.1-43.9); Red Blood Count 4.08 M/mm3 (4.2-5.4); White Blood Count 14.9 K/mm3 (4.4-11.0)
[2022-01-24 21:00] LABS: International Normalized Ratio 1.1; Prothrombin Time (Protime)PT. 13.2 SECONDS (11.7-14.9)
[2022-01-24 21:05] LABS: Anion Gap 7 (5-15); BUN 25 mg/dL (7-18); BUN/Creat Ratio 21.9 RATIO (10-20); Calcium,Total 9.5 mg/dL (8.5-10.1); Chloride 108 mmol/L (98-107); Creatinine, Serum 1.14 mg/dL (0.55-1.02); EST Glomerular Filtration Rate 48 mL/min (>60); Est Glom Filt Rate - Afr Amer 58 mL/min (>60); Estimated Creatinine Clearance 34.39 ml/min; Glucose 130 mg/dL (74-106); Potassium 3.9 mmol/L (3.5-5.1); Sodium Level 140 mmol/L (136-145)
--- NOTE | 2022-01-24 21:11 | RAD_ITS ---
INDICATION: hip fracture pre-op EXAMINATION/TECHNIQUE: X-RAY - XR Chest 1 View COMPARISON: 06/13/2020 chest x-ray FINDINGS: LINES/DEVICES: None. LUNGS: There is new asymmetric elevation right hemidiaphragm compared to the left. No airspace opacity or abnormal interstitial pattern. No pleural effusion or pneumothorax. MEDIASTINUM AND CARDIOVASCULAR STRUCTURES: Normal size and contour of the cardiomediastinal silhouette. No evidence of pulmonary vascular congestion. Tortuous thoracic aorta with atherosclerosis. BONES AND SOFT TISSUES: Moderate degenerative osteophytosis thoracic spine. RAD/Chest 1 View (Portable) IMPRESSION: 1. New asymmetric elevation right hemidiaphragm compared to the left 2. Otherwise normal exam. Electronically Signed: Frederick Galindo DO at 21:42 EST ,
[2022-01-24 21:23] LABS: Differential Indicated MANUAL DIFF; Scan Smear per Review Criteria MANUAL DIFF
[2022-01-24 21:27] LABS: Absolute Neutrophil Count 7.9 X10^3/uL (2.0-7.7)
[2022-01-24 21:29] LABS: Absolute Lymphocyte Count 4.18 X10^3/uL (0.83-4.51); Atypical Lymphocyte 2+ %; Basophil 2 % (0-1); Eosinophil 12 % (0-5); Lymphocyte 28 % (19-41); Monocyte 5 % (0-10); Neutrophil-Segmented 53 % (47-70); Platelet Estimate ADEQUATE (ADEQ); Red Cell Morphology NORM C+C NORMAL (NORM C&C); Total Cells Counted 100 (MANUAL DIFF)
[2022-01-24 22:30] VITALS: BP 140/69; PULSE 73; PULSE 75; RESP 16; RESP 18; TEMP 36.9; O2SAT 96; O2SAT 97
[2022-01-24] MEDS: morphine 8 MG/ML Syringe 6 MG IV (22:32)
--- NOTE | 2022-01-24 23:04 | PCM.HP.STD ---
HPI - General HPI Narrative CARMEN LAND, is a 86 F who presents to the hospital after mechanical fall at home. She is trying to pivot while standing and she fell on her right side. She had immediate pain and had difficulty ambulating so she came to the hospital. In ER he is found to have a white count of 14.9 which is likely reactive secondary to her mildly displaced and mildly comminuted right hip intertrochanteric fracture. She states that she only wears oxygen at night at 3 L and that her other health issues have been at baseline. She did have a recent echo which appeared to be stable with a normal EF. [facility] Medical History (Updated 01/24/22 @ 22:[address] Brian Rodriguez MD) Acute cystitis Acute ischemic stroke Adult failure to thrive Allergic rhinitis Angina pectoris Asthma Benign essential HTN Cerebrovascular disease Chronic systolic (congestive) heart failure COPD (chronic obstructive pulmonary disease) Decreased level of consciousness Dilatation of aorta Dizziness Edema Encephalopathy Fall Fracture of rib Gastroesophageal reflux disease Hallucinations History of stroke HLD (hyperlipidemia) Hypokalemia Insomnia Intellectual disability Left hip pain Lethargy Overactive bladder Shortness of breath Subdural hematoma Urinary incontinence Urinary tract infection Vitamin D deficiency Weakness Home Medications atenolol 50 mg PO DAILY 01/31/19 [History Last Taken 09/10/21] atorvastatin 10 mg PO DAILY 01/31/19 [History Last Taken 09/09/21] clopidogrel 75 mg PO DAILY 01/31/19 [History Last Taken 09/10/21] loratadine 10 mg PO DAILY 01/31/19 [History Last Taken 09/10/21] omeprazole 20 mg PO DAILY 01/31/19 [History Last Taken 09/10/21] potassium chloride 20 mEq tablet,extended release(part/cryst) 20 meq PO BID tab 09/01/19 [History Last Taken 09/10/21] albuterol sulfate 1 - 2 puff IH Q4H PRN PRN 06/13/20 [History Last Taken 2 Weeks Ago ~08/27/21] cholecalciferol (vitamin D3) 2,000 unit PO DAILY 06/13/20 [History Last Taken 09/10/21] losartan 100 mg tablet 100 mg PO DAILY #90 tab 06/06/21 [Rx Last Taken 09/10/21] isosorbide mononitrate 60 mg tablet,extended release 24 hr 60 mg PO BID #60 tab 06/11/21 [Rx Last Taken 09/10/21] melatonin 5 mg PO QHS 09/10/21 [History Last Taken Unknown] oxybutynin chloride 10 mg PO DAILY 09/10/21 [History Last Taken 09/10/21] acetaminophen [Tylenol 8 Hour] 650 mg PO Q8H PRN #30 tab 09/11/21 [Rx Last Taken Unknown] meclizine 25 mg PO TID PRN #30 tab 09/11/21 [Rx Last Taken Unknown] amlodipine 5 mg tablet 5 mg PO DAILY #90 tab 12/01/21 [Rx Last Taken Unknown] furosemide 40 mg tablet 40 mg PO DAILY tab 12/01/21 [History Last Taken Unknown] nitroglycerin 0.4 mg sublingual tablet 0.4 mg SUBLINGUAL Q5-15M PRN #25 tab 12/01/21 [Rx Last Taken Unknown] Allergy/AdvReac Type Severity Reaction Status Date / Time adhesive Allergy Rash Verified 12/01/21 11:19 amitriptyline Allergy CONFUSION Verified 12/01/21 11:19 codeine Allergy Hives Verified 12/01/21 11:19 hydrocodone bitartrate Allergy Hives Verified 12/01/21 11:19 [From Vicodin] Iodinated Contrast Media Allergy Hives Verified 12/01/21 11:19 [Iodinated Contrast Media - IV Dye] naproxen Allergy Unknown Verified 12/01/21 11:19 Penicillins Allergy Rash Verified 12/01/21 11:19 phenytoin sodium Allergy Hives Verified 12/01/21 11:19 [From Dilantin] phenytoin sodium extended Allergy Hives Verified 12/01/21 11:19 [From Dilantin] silicone Allergy Hives Verified 12/01/21 11:19 Family History Sister Heart disease Surgical History History of brain surgery History of breast biopsy History of hysterectomy History of umbilical hernia repair S/P ORIF (open reduction internal fixation) fracture (~05/19/15) Social History Smoking Status: Never smoker alcohol intake: never substance use type: does not use caffeine: Yes Type: carbonated beverages and coffee ROS Constitutional Constitutional: Denies chills, fatigue, fever(s) or malaise Eyes Eyes: Denies blurry vision ENT HEENT: Denies headache(s) or nasal discharge Cardiovascular Cardiovascular: Denies chest pain, dyspnea on exertion or syncope Respiratory/Chest Respiratory/Chest: Denies cough, shortness of breath at rest or shortness of breath with exertion Gastrointestinal Gastrointestinal: Denies constipation, diarrhea, nausea or vomiting Genitourinary Genitourinary: Denies dysuria Musculoskeletal Musculoskeletal: Reports joint pain Neurologic Neurologic: Denies focal weakness, numbness or tremor(s) Psychiatric Psychiatric: Denies anxiety or depression Vital Signs Vital Signs Vital Signs: 01/24/22 20:05 01/24/22 20:09 01/24/22 22:30 Temperature 98.4 F 98.4 F Temperature Source Oral Temporal Pulse Rate 74 73 Respiratory Rate 18 18 Respiratory Effort Normal Respiratory Depth Normal Respiratory Pattern Normal Blood Pressure 174/91 H 140/69 H Blood Pressure Mean 118 92 Pulse Ox 94 97 Oxygen Delivery Method Room Air Room Air Nasal Cannula Oxygen Flow Rate (L/min) 2 Weight Weight: 191 lb 9 oz Body Mass Index (BMI) 30.9 Physical Exam Const alert, oriented x3 and no apparent distress General Appearance: cooperative HEENT normocephalic and moist oral mucous membranes Eyes PERRL, EOMs intact bilaterally and conjunctivae normal Neck supple and no JVD Resp normal respiratory effort, no retractions, no use of accessory muscles and clear to auscultation bilaterally Auscultation: Negative for crackles, rales, rhonchi or wheezes Cardio regular rate, regular rhythm, S1 normal heart sound, S2 normal heart sound and no murmurs GI soft to palpation, non-tender and non-distended; Negative for hepatosplenomegaly Extremity no clubbing, cyanosis or edema Extremity Narrative: Right hip tenderness Skin no rashes or lesions noted Neuro no focal motor deficits and no sensory deficits noted Psych affect normal Appearance: appropriate Results Lab / Micro Data Result Diagrams: 01/24/22 20:39 01/24/22 20:39 Labs: Laboratory Results - last 24 hr 01/24/22 20:39: WBC 14.9 H, RBC 4.08 L, Hgb 12.4, Hct 37.8, MCV 92.6, MCH 30.4, MCHC 32.8, RDW Std Deviation 48.5 H, RDW Coeff of [place]aina 14.3, Plt Count 266, MPV 10.1, Immature Gran % (Auto) SLIP BRIDGE OPERATOR, Neut % (Auto) SLIP BRIDGE OPERATOR, Lymph % (Auto) SLIP BRIDGE OPERATOR, [place] % (Auto) SLIP BRIDGE OPERATOR, Eos % (Auto) SLIP BRIDGE OPERATOR, Baso % (Auto) SLIP BRIDGE OPERATOR, Absolute Neuts (auto) 7.9 H, Absolute Lymphs (auto) 4.18, Total Counted 100, Neutrophils % (Manual) 53, Lymphocytes % (Manual) 28, Monocytes % (Manual) 5, Eosinophils % (Manual) 12 H, Basophils % (Manual) 2 H, Nucleated RBC % SLIP BRIDGE OPERATOR, Diff Path Review May foll, Atypical Lymphocytes 2+, Platelet Estimate ADEQUATE, RBC Morphology NORM C+C 01/24/22 20:39: PT 13.2, INR 1.1 01/24/22 20:39: Sodium 140, Potassium 3.9, Chloride 108 H, Carbon Dioxide 25.0, Anion Gap 7, BUN 25 H, Creatinine 1.14 H, Estim Creat Clear Calc 34.39, Est GFR (MDRD) Af Amer 58 L, Est GFR (MDRD) Non-Af 48 L, BUN/Creatinine Ratio 21.9 H, Glucose 130 H, Calcium 9.5 01/24/22 21:34: Blood Type O POSITIVE, Antibody Screen NEGATIVE Rhythm Strip Rhythm Strip: Sinus Rhythm Rate: 75 Ectopy: None Radiology Impression Brain CT 01/24/22 20:16 IMPRESSION: No acute intracranial pathology. Left frontal lobe lateral peripheral area of encephalomalacia. Chronic small vessel ischemic changes. Extensive atherosclerosis intracranial vessels. Electronically Signed: Frederick Galindo DO at 21:22 EST , Hip/Pelvis X-Ray 01/24/22 20:16 IMPRESSION: Mildly displaced, mildly comminuted right hip, intertrochanteric fracture. Electronically Signed: Frederick Galindo DO at 21:37 EST , Chest X-Ray 01/24/22 21:11 IMPRESSION: 1. New asymmetric elevation right hemidiaphragm compared to the left 2. Otherwise normal exam. Electronically Signed: Frederick Galindo, DO at 21:42 EST , Assessment & Plan Assessment/Plan (1) Closed fracture of right hip: PLAN: 1. Right intertrochanteric fracture status post fall ?Plan for operative repair in the morning by Ortho ?It is okay to continue Plavix ?PT/OT for evaluation ?Pain medication ?Case management for discharge planning 2. Chronic systolic CHF/HTN/HLD history DVA ?Blood pressure stable ?Continue with Norvasc, atenolol, Lipitor, isosorbide mononitrate, losartan ?Continue with Plavix ?We will hold Lasix, her creatinine is mildly elevated for her at 1.14 and plan is for OR tomorrow 3. COPD not in exacerbation ?She wears chronic oxygen at night at 3 L this is stable 4. GERD ?Stable ?Continue PPI DVT: SCDs Charges/Coding Visit Charges Inpatient E&M: 50120 Init Hosp L3
[2022-01-25] VITALS (13 sets, daily range): BP systolic 127–155; BP diastolic 59–75; PULSE 58–79; RESP 13–18; TEMP 35.9–37.1; O2SAT 96–100; BMI 28.9
[2022-01-25] MEDS: Morphine 4 MG/ML Syringe IV ×5 (00:47→18:13)
[2022-01-25 05:14] LABS: Absolute Neutrophil Count 7.5 X10^3/uL (2.0-7.7); Basophil# 0.08 X10^3/uL; Basophil% 0.8 % (0-1); Eosinophil# 0.13 X10^3/uL; Eosinophils% 1.3 % (0-5); Hematocrit 33.6 % (37-47); Hemoglobin 11.4 g/dL (12.0-15.0); Lymphocyte % 17.8 % (19-41); Mean Corp Hgb Conc 33.9 g/dL (32-36); Mean Corpuscular Hgb 31.1 pg (27.0-32.0); Mean Corpuscular Volume 91.8 fL (81-99); Mean Platelet Vol. 10.7 fl (6.2-12.0); Monocyte# 0.58 X10^3/uL; Monocyte% 5.7 % (0-10); NRBC Flagged by Analyzer 0 % (0-5); Neutrophil % 74.1 % (47-70); Platelet Count 212 K/mm3 (150-450); RBC Distribution Width CV 14.3 % (11.6-14.6); RBC Distribution Width SD 48.6 fl (35.1-43.9); Red Blood Count 3.66 M/mm3 (4.2-5.4); White Blood Count 10.1 K/mm3 (4.4-11.0)
[2022-01-25 05:55] LABS: Anion Gap 6 (5-15); BUN 24 mg/dL (7-18); BUN/Creat Ratio 23.8 RATIO (10-20); Calcium,Total 8.9 mg/dL (8.5-10.1); Chloride 107 mmol/L (98-107); Creatinine, Serum 1.01 mg/dL (0.55-1.02); EST Glomerular Filtration Rate 55 mL/min (>60); Est Glom Filt Rate - Afr Amer 67 mL/min (>60); Estimated Creatinine Clearance 38.82 ml/min; Glucose 152 mg/dL (74-106); Potassium 4.1 mmol/L (3.5-5.1); Sodium Level 138 mmol/L (136-145)
--- NOTE | 2022-01-25 07:58 | CONS.ORTHO ---
HPI Consult Data Date of Consult: 01/25/22 HPI Narrative HPI Narrative: CARMEN LAND, is a 86 F who presented to [facility] emergency department last evening 01/24/2022 after mechanical fall from standing height onto her right side. She noted immediate pain and inability to ambulate. Patient lives at home with her son, Cuong. Patient did say she hit her head falling. CT brain in the emergency department was negative for acute process. Patient does take aspirin and Plavix with last dose being yesterday. She denies any significant pain at this time other than her right hip. Patient broke her left hip and required a left femur cephalomedullary nailing, which she reports was in 2001. Patient normally uses a cane and walker depending on the situation to ambulate. Reported some occasional right hip and groin pain prior to the fall. Denies any fevers, chills, nausea or vomiting, chest pain or shortness of breath. [facility] Medical History Acute cystitis Acute ischemic stroke Adult failure to thrive Allergic rhinitis Angina pectoris Asthma Benign essential HTN Cerebrovascular disease Chronic systolic (congestive) heart failure COPD (chronic obstructive pulmonary disease) Decreased level of consciousness Dilatation of aorta Dizziness Edema Encephalopathy Fall Fracture of rib Gastroesophageal reflux disease Hallucinations History of stroke HLD (hyperlipidemia) Hypokalemia Insomnia Intellectual disability Left hip pain Lethargy Overactive bladder Shortness of breath Subdural hematoma Urinary incontinence Urinary tract infection Vitamin D deficiency Weakness Home Medications atenolol 50 mg PO DAILY 01/31/19 [History Last Taken 09/10/21] atorvastatin 10 mg PO DAILY 01/31/19 [History Last Taken 09/09/21] clopidogrel 75 mg PO DAILY 01/31/19 [History Last Taken 09/10/21] loratadine 10 mg PO DAILY 01/31/19 [History Last Taken 09/10/21] omeprazole 20 mg PO DAILY 01/31/19 [History Last Taken 09/10/21] potassium chloride 20 mEq tablet,extended release(part/cryst) 20 meq PO BID tab 09/01/19 [History Last Taken 09/10/21] albuterol sulfate 1 - 2 puff IH Q4H PRN PRN 06/13/20 [History Last Taken 2 Weeks Ago ~08/27/21] cholecalciferol (vitamin D3) 2,000 unit PO DAILY 06/13/20 [History Last Taken 09/10/21] losartan 100 mg tablet 100 mg PO DAILY #90 tab 06/06/21 [Rx Last Taken 09/10/21] isosorbide mononitrate 60 mg tablet,extended release 24 hr 60 mg PO BID #60 tab 06/11/21 [Rx Last Taken 09/10/21] melatonin 5 mg PO QHS 09/10/21 [History Last Taken Unknown] oxybutynin chloride 10 mg PO DAILY 09/10/21 [History Last Taken 09/10/21] acetaminophen [Tylenol 8 Hour] 650 mg PO Q8H PRN #30 tab 09/11/21 [Rx Last Taken Unknown] meclizine 25 mg PO TID PRN #30 tab 09/11/21 [Rx Last Taken Unknown] amlodipine 5 mg tablet 5 mg PO DAILY #90 tab 12/01/21 [Rx Last Taken Unknown] furosemide 40 mg tablet 40 mg PO DAILY tab 12/01/21 [History Last Taken Unknown] nitroglycerin 0.4 mg sublingual tablet 0.4 mg SUBLINGUAL Q5-15M PRN #25 tab 12/01/21 [Rx Last Taken Unknown] Allergy/AdvReac Type Severity Reaction Status Date / Time adhesive Allergy Rash Verified 12/01/21 11:19 amitriptyline Allergy CONFUSION Verified 12/01/21 11:19 codeine Allergy Hives Verified 12/01/21 11:19 hydrocodone bitartrate Allergy Hives Verified 12/01/21 11:19 [From Vicodin] Iodinated Contrast Media Allergy Hives Verified 12/01/21 11:19 [Iodinated Contrast Media - IV Dye] naproxen Allergy Unknown Verified 12/01/21 11:19 Penicillins Allergy Rash Verified 12/01/21 11:19 phenytoin sodium Allergy Hives Verified 12/01/21 11:19 [From Dilantin] phenytoin sodium extended Allergy Hives Verified 12/01/21 11:19 [From Dilantin] silicone Allergy Hives Verified 12/01/21 11:19 Family History Sister Heart disease Surgical History History of brain surgery History of breast biopsy History of hysterectomy History of umbilical hernia repair S/P ORIF (open reduction internal fixation) fracture (~05/19/15) Social History Smoking Status: Never smoker alcohol intake: never substance use type: does not use caffeine: Yes Type: carbonated beverages and coffee ROS ROS Narrative 12 point review of systems obtained, negative unless otherwise noted in HPI. Vital Signs Vital Signs Vital Signs: 01/24/22 20:05 01/24/22 20:09 01/24/22 22:30 Temperature 98.4 F 98.4 F Temperature Source Oral Temporal Pulse Rate 74 73 Pulse Strength Respiratory Rate 18 18 Respiratory Effort Normal Respiratory Depth Normal Respiratory Pattern Normal Blood Pressure 174/91 H 140/69 H Blood Pressure Mean 118 92 Blood Pressure Source Blood Pressure Position Blood Pressure Location Pulse Ox 94 97 Oxygen Delivery Method Room Air Room Air Nasal Cannula Oxygen Flow Rate (L/min) 2 01/25/22 00:24 01/25/22 00:42 01/25/22 03:59 Temperature 97.8 F Temperature Source Oral Pulse Rate 68 Pulse Strength Normal (2+) Respiratory Rate 18 18 Respiratory Effort Normal Respiratory Depth Normal Respiratory Pattern Normal Blood Pressure 154/75 H Blood Pressure Mean 101 Blood Pressure Source Monitor Blood Pressure Position Semi-Fowlers Blood Pressure Location Left Arm Pulse Ox 98 97 Oxygen Delivery Method Nasal Cannula Nasal Cannula Oxygen Flow Rate (L/min) 3 3 Weight Weight: 179 lb 3.773 oz Body Mass Index (BMI) 28.9 Physical Exam Narrative General -A&Ox3, NAD, appears stated age. Vital signs stable, afebrile. Respiratory -normal work of breathing, no intercostal retractions. CV -pulses regular, brisk capillary refill ?4 limbs. Abdomen-soft, nontender, nondistended. No guarding, rigidity, rebound tenderness. Musculoskeletal/neurologic -full range of motion nontender throughout bilateral upper extremities, left lower extremity with full sensation and strength in all dermatomes and myotomes. No midline cervical tenderness. Right lower extremity-no obvious deformity. Pain with logroll of the right lower extremity. Nontender throughout the right knee femoral shaft, tibial shaft and left foot/ankle. Brisk capillary refill. Sensation intact light touch L3-S1 dermatomes. DF, PF, EHL intact. DP, PT 2+. Pelvis is stable, nontender. Skin is intact without lacerations, abrasions. No ecchymosis noted. Lab / Micro Data Result Diagrams: 01/25/22 05:00 01/25/22 05:00 Labs: Laboratory Results - last 24 hr 01/24/22 20:39: WBC 14.9 H, RBC 4.08 L, Hgb 12.4, Hct 37.8, MCV 92.6, MCH 30.4, MCHC 32.8, RDW Std Deviation 48.5 H, RDW Coeff of Taina 14.3, Plt Count 266, MPV 10.1, Immature Gran % (Auto) HAND PRINTED CIRCUIT BOARD ASSEMBLER, Neut % (Auto) HAND PRINTED CIRCUIT BOARD ASSEMBLER, Lymph % (Auto) HAND PRINTED CIRCUIT BOARD ASSEMBLER, [place] % (Auto) HAND PRINTED CIRCUIT BOARD ASSEMBLER, Eos % (Auto) HAND PRINTED CIRCUIT BOARD ASSEMBLER, Baso % (Auto) HAND PRINTED CIRCUIT BOARD ASSEMBLER, Absolute Neuts (auto) 7.9 H, Absolute Lymphs (auto) 4.18, Total Counted 100, Neutrophils % (Manual) 53, Lymphocytes % (Manual) 28, Monocytes % (Manual) 5, Eosinophils % (Manual) 12 H, Basophils % (Manual) 2 H, Nucleated RBC % HAND PRINTED CIRCUIT BOARD ASSEMBLER, Diff Path Review May foll, Atypical Lymphocytes 2+, Platelet Estimate ADEQUATE, RBC Morphology NORM C+C 01/24/22 20:39: PT 13.2, INR 1.1 01/24/22 20:39: Sodium 140, Potassium 3.9, Chloride 108 H, Carbon Dioxide 25.0, Anion Gap 7, BUN 25 H, Creatinine 1.14 H, Estim Creat Clear Calc 34.39, Est GFR (MDRD) Af Amer 58 L, Est GFR (MDRD) Non-Af 48 L, BUN/Creatinine Ratio 21.9 H, Glucose 130 H, Calcium 9.5 01/24/22 21:34: Blood Type O POSITIVE, Antibody Screen NEGATIVE 01/25/22 05:00: WBC 10.1, RBC 3.66 L, Hgb 11.4 L, Hct 33.6 L, MCV 91.8, MCH 31.1, MCHC 33.9, RDW Std Deviation 48.6 H, RDW Coeff of [place]aina 14.3, Plt Count 212, MPV 10.7, Immature Gran % (Auto) 0.300, Neut % (Auto) 74.1 H, Lymph % (Auto) 17.8 L, [place] % (Auto) 5.7, Eos % (Auto) 1.3, Baso % (Auto) 0.8, Absolute Neuts (auto) 7.5, Absolute Lymphs (auto) 1.80, Nucleated RBC % 0 01/25/22 05:00: Sodium 138, Potassium 4.1, Chloride 107, Carbon Dioxide 25.0, Anion Gap 6, BUN 24 H, Creatinine 1.01, Estim Creat Clear Calc 38.82, Est GFR (MDRD) Af Amer 67, Est GFR (MDRD) Non-Af 55 L, BUN/Creatinine Ratio 23.8 H, Glucose 152 H, Calcium 8.9 Micro: Microbiology 01/25/22 01:10 Nasal Secretion SARS-CoV-2 Antigen (Rapid) - Final Rhythm Strip Rhythm Strip: Sinus Rhythm Rate: 75 Ectopy: None Radiology Impression Brain CT 01/24/22 20:16 IMPRESSION: No acute intracranial pathology. Left frontal lobe lateral peripheral area of encephalomalacia. Chronic small vessel ischemic changes. Extensive atherosclerosis intracranial vessels. Electronically Signed: Frederick Galindo DO at 21:22 EST , Hip/Pelvis X-Ray 01/24/22 20:16 IMPRESSION: Mildly displaced, mildly comminuted right hip, intertrochanteric fracture. Electronically Signed: Frederick Galindo DO at 21:37 EST , Chest X-Ray 01/24/22 21:11 IMPRESSION: 1. New asymmetric elevation right hemidiaphragm compared to the left 2. Otherwise normal exam. Electronically Signed: Frederick Galindo DO at 21:42 EST , Assessment & Plan Assessment/Plan (1) Closed fracture of right hip: PLAN: Patient sustained a left comminuted intertrochanteric proximal femur fracture. -Closed, neurovascularly intact -Isolated injury -Recommending surgical intervention in the form of right femur cephalomedullary nailing -I discussed the procedure-its risks, benefits and alternative. Risks include but are not limited to bleeding, infection, loss of life or limb, risk of anesthesia, persistent pain or disability, need for additional surgery, nonunion, malunion, failure of orthopedic hardware, neurovascular injury, DVT or PE. Patient expressed understanding these risks and wished proceed with surgery. -Maintenance IV fluids, clear liquid diet after midnight n.p.o. at 4 hours prior to surgery -Patient optimized from medical standpoint. We will hold Plavix today. Plan to restart Plavix tomorrow. -Type and screen -2 g Ancef on-call to the OR -Bedrest, heel protectors -Plan to proceed with surgery later this morning. Thank you for this consultation.
[2022-01-25 08:38] LABS: AST(SGOT) 32 U/L (15-37); Alanine Aminotransfer ALT/SGPT 21 U/L (13-56); Albumin, Serum 3.1 g/dL (3.2-5.0); Alkaline Phosphatase 72 U/L (45-117); Bilirubin, Direct < 0.05 mg/dL (0.00-0.30); Globulin 4.3 g/dL (2.2-4.2); Protein, Total 7.4 g/dL (6.4-8.2)
--- NOTE | 2022-01-25 09:30 | NURSING ---
Verbal report given to IBRAHIMA Lala. Pt to surgery with JORGE Lan transporting.
--- NOTE | 2022-01-25 09:45 | RAD_ITS ---
STUDY: X-RAY - PELVIS AND RIGHT HIP REASON FOR EXAM: Female, 86 years old. ORIF HIP TECHNIQUE: 2 fluoroscopic views of the right hip COMPARISON: None. FINDINGS: Please see the impression. RAD/HIP, UNI W/ Pelvis 2-3 Views IMPRESSION: 2 prostatic views of the right hip are obtained during surgery. No radiologist was present in the operating room. Fluoroscopic time was not provided. Electronically Signed: Danis Evans MD at 19:47 EST ,
[2022-01-25] MEDS: Cefazolin 2 GM in 0.9% Normal Saline 100 ML IV (10:20)
[2022-01-25] MEDS: Lactated Ringers 1,000 ML 100 ML IV ×2 (10:20→14:29)
--- NOTE | 2022-01-25 12:04 | PCM.OPRPT ---
Report of Operation Description of Surgical Findings:: Preoperative diagnosis: Right intertrochanteric proximal femur fracture Postoperative diagnosis: Right intertrochanteric proximal femur fracture Procedure: Treatment of intertrochanteric hip fracture with intramedullary nail right femur Surgeon: Ronald Byrd DO Anesthesia: General endotracheal Anesthesiologist: Dr. Bender Complications: None apparent Drains: None Estimated blood loss: 200 cc Urinary output: None recorded IV fluids: Per anesthesia record Specimens: None Surgical implants: Syed Gamma3 Cephalomedullary Nail 125 degree 10 mm x 180 mm right, 10.5 mm x 100 mm lag screw, Interlocking screw 5 mm x 37.5 mm Surgical indications: This is a 86-year-old female who sustained a ground-level mechanical fall yesterday 01/24/2022. She noted immediate right hip pain and inability to bear weight. She was brought to [facility] emergency department where x-rays revealed a comminuted right intertrochanteric proximal femur fracture. She also did hit her head. CT brain was negative for acute process. She was admitted under the service of the hospitalist. I recommended a cephalomedullary nail fixation of her right hip fracture. We discussed the risks, benefits, alternatives to the procedure. Risks included but were not limited to bleeding, infection, loss of life or limb, malunion, nonunion, damage to vital structures, neurovascular injury, failure of orthopedic hardware, need for additional surgery, persistent pain or disability, risk of anesthesia. The patient expressed understanding of these risks and agreed to proceed with surgery. Blood consent was also obtained. Description of procedure: Patient was seen in preoperative holding area. She was identified by name, medical record number, date of . The operative extremity was marked with a surgical marker. I confirmed informed consent with the patient and all questions were answered to her satisfaction. Patient was brought to the operative suite, and general anesthesia was induced on her hospital bed. Endotracheal tube was placed and secured. After adequate anesthesia, patient was transferred to a fracture table with all bony prominences being well-padded. A perineal post was placed to secure the patient on the table. We then applied a ski boot which was well-padded to the operative extremity. The well leg was dropped into extension and secured to the axial post of the fracture table with a pillow and [place]. The arms were brought across patient's chest with a blanket on her chest. I performed a closed reduction maneuver with first abducting the operative extremity, externally rotating applying traction, bringing the leg into adduction and internal rotation. Fluoroscopic images were obtained. Fracture appeared to be adequately reduced at this point. We then prepped and draped the right lower extremity in normal, sterile orthopedic fashion. A timeout was performed with all parties in attendance in agreement with the side, site, and operation be performed. 2 g Ancef was administered prior to incision. No concerns were voiced and we elected to proceed. I first brought in fluoroscopy to lindsay the level of the tip of the greater trochanter. I planned my incision approximately 3 fingerbreadths proximal to the tip of the greater trochanter. Skin was incised sharply with a 10 blade scalpel. Incision was carried deep through the IT band laterally. The greater trochanter was then able to be palpated digitally. I then placed a starting K wire just medial to the tip of the greater trochanter and in the anterior third of it on the lateral. Opening reamer was then placed over top of the K wire after placement was confirmed on C arm. Reduction was again confirmed. We selected her nail to be 18 cm x 10 mm diameter. Nail was assembled on the back table. I placed the nail in the intramedullary canal using fluoroscopic guidance to confirm appropriate position. Nail was placed and impacted to an appropriate depth. Rotation was confirmed on the lateral. Drill sleeve was placed through the targeting guide. We drilled the pin for the lag screw at an appropriate position and depth, tip to apex distance less than 25 mm on AP and lateral combined. Depth gauge was used to measure the length of the screw, 100 mm. We then used the cannulated drill to drill to an appropriate depth. Drill was removed, drill pin left in place. Lag screw was placed over top of the drill pin and tightened to an appropriate depth. External compression device was used to compress across the fracture site when traction was removed. Setscrew was then placed and tightened, and then turned back a quarter turn to allow for the screw to slide. Drill pen and targeting sleeves were then removed. The outrigger was rotated to utilize the targeting guide for the static interlocking screw in this short nail. Triple sleeve was then inserted over the skin. Skin was sharply incised with a 10 blade scalpel. I bluntly dissected down the level IT band which was then sharply incised. Targeting sleeve was passed down the lateral cortex. I then withdrew the centering sleeve and drilled bicortically. I measured a 37.5 mm interlocking screw. Drill was removed and screw was placed by hand with excellent purchase. Targeting guide and outrigger was then disengaged from the nail. Final fluoroscopic images were obtained and demonstrated appropriate reduction, hardware size and positioning. I then irrigated the wounds copiously with normal saline solution. Hemostasis was excellent at this point. We then closed the deeper layers, IT band with 0 Vicryl. Intradermal buried stitches of 2-0 Vicryl were utilized and skin finally reapproximated with skin arlet. Sterile compression dressing of Xeroform, 4 x 4's, and Tegaderm was applied. Patient tolerated procedure well without complication. She was transferred back to her hospital bed and subsequently to PACU in stable condition. Intraoperative medications: 1 g Ancef IV, 1 unit packed red blood cells Post Operative Plan: Weightbearing: Weightbearing as tolerated right lower extremity with a walker Antibiotics: Ancef 1 g x 3 doses postoperatively, 1 dose given preoperatively DVT Prophylaxis: SCDs, early mobilization, SESAR hose, restart home aspirin and Plavix postoperative day #1 Rodney: Per primary Dressing: Dry sterile dressing changes daily and as needed for saturation X-Rays: 3 weeks postop in the office Follow-up: 3 weeks post-operatively with me in the office
[2022-01-25] MEDS: 0.9% Saline Lock 10 ML Syringe IV ×2 (14:29→18:13)
[2022-01-25] MEDS: Isosorbide Mononitrate 60 MG Tablet PO ×2 (14:29→21:33)
[2022-01-25] MEDS: Loratadine 10 MG Tablet PO (14:29)
[2022-01-25] MEDS: Acetaminophen 500 MG Tablet 1000 MG PO ×2 (14:29→21:33)
[2022-01-25] MEDS: Senna/Docusate Sodium 1 Tablet 2 TABLET PO ×2 (14:30→21:33)
[2022-01-25] MEDS: Losartan Potassium 100 MG Tablet PO (16:34)
[2022-01-25] MEDS: amLODIPine 2.5 MG Tablet PO (16:34)
[2022-01-25] MEDS: Pantoprazole Sodium 20 MG Tablet PO (16:34)
[2022-01-25] MEDS: Atenolol 50 MG Tablet PO (16:34)
--- NOTE | 2022-01-25 17:41 | PCM.PN.HOSP ---
Subjective Subjective Patient was seen and examined today, she underwent surgery today with insertion of intramedullary nail right femur. Patient does not complain of any shortness of breath or chest pain, she is currently on nasal cannula oxygen. Objective Data Objective Data Vital Signs: Vital Signs Temp Pulse Resp BP Pulse Ox 97.6 F L 79 16 138/69 H 97 01/25/22 16:31 01/25/22 16:31 01/25/22 16:31 01/25/22 16:31 01/25/22 16:31 Oxygen Flow Rate (L/min) 3 Oxygen Delivery Method Nasal Cannula Weight: 81.3 kg Body Mass Index (BMI) 28.9 Intake & Output: Intake and Output for Last 24 Hours 01/23/22 01/24/22 01/25/22 23:59 23:59 23:59 Intake Total 925 / 925 Output Total 300 / 300 Balance 625 / 625 Lab / Micro Data Result Diagrams: 01/25/22 05:00 01/25/22 05:00 Labs: Laboratory Results - last 24 hr 01/24/22 20:39: WBC 14.9 H, RBC 4.08 L, Hgb 12.4, Hct 37.8, MCV 92.6, MCH 30.4, MCHC 32.8, RDW Std Deviation 48.5 H, RDW Coeff of Taina 14.3, Plt Count 266, MPV 10.1, Immature Gran % (Auto) CORRECTIONS IDENTIFICATION TECHNICIAN, Neut % (Auto) CORRECTIONS IDENTIFICATION TECHNICIAN, Lymph % (Auto) CORRECTIONS IDENTIFICATION TECHNICIAN, [place] % (Auto) CORRECTIONS IDENTIFICATION TECHNICIAN, Eos % (Auto) CORRECTIONS IDENTIFICATION TECHNICIAN, Baso % (Auto) CORRECTIONS IDENTIFICATION TECHNICIAN, Absolute Neuts (auto) 7.9 H, Absolute Lymphs (auto) 4.18, Total Counted 100, Neutrophils % (Manual) 53, Lymphocytes % (Manual) 28, Monocytes % (Manual) 5, Eosinophils % (Manual) 12 H, Basophils % (Manual) 2 H, Nucleated RBC % CORRECTIONS IDENTIFICATION TECHNICIAN, Diff Path Review May foll, Atypical Lymphocytes 2+, Platelet Estimate ADEQUATE, RBC Morphology NORM C+C 01/24/22 20:39: PT 13.2, INR 1.1 01/24/22 20:39: Sodium 140, Potassium 3.9, Chloride 108 H, Carbon Dioxide 25.0, Anion Gap 7, BUN 25 H, Creatinine 1.14 H, Estim Creat Clear Calc 34.39, Est GFR (MDRD) Af Amer 58 L, Est GFR (MDRD) Non-Af 48 L, BUN/Creatinine Ratio 21.9 H, Glucose 130 H, Calcium 9.5 01/24/22 21:34: Blood Type O POSITIVE, Antibody Screen NEGATIVE 01/25/22 05:00: WBC 10.1, RBC 3.66 L, Hgb 11.4 L, Hct 33.6 L, MCV 91.8, MCH 31.1, MCHC 33.9, RDW Std Deviation 48.6 H, RDW Coeff of Taina 14.3, Plt Count 212, MPV 10.7, Immature Gran % (Auto) 0.300, Neut % (Auto) 74.1 H, Lymph % (Auto) 17.8 L, [place] % (Auto) 5.7, Eos % (Auto) 1.3, Baso % (Auto) 0.8, Absolute Neuts (auto) 7.5, Absolute Lymphs (auto) 1.80, Nucleated RBC % 0 01/25/22 05:00: Sodium 138, Potassium 4.1, Chloride 107, Carbon Dioxide 25.0, Anion Gap 6, BUN 24 H, Creatinine 1.01, Estim Creat Clear Calc 38.82, Est GFR (MDRD) Af Amer 67, Est GFR (MDRD) Non-Af 55 L, BUN/Creatinine Ratio 23.8 H, Glucose 152 H, Calcium 8.9 01/25/22 05:00: Total Bilirubin 0.40, Direct Bilirubin < 0.05, AST 32, ALT 21, Alkaline Phosphatase 72, Total Protein 7.4, Albumin 3.1 L, Globulin 4.3 H Micro: Microbiology 01/25/22 01:10 Nasal Secretion SARS-CoV-2 Antigen (Rapid) - Final Radiography Diagnostic Testing: Radiology Impression Brain CT 01/24/22 20:16 IMPRESSION: No acute intracranial pathology. Left frontal lobe lateral peripheral area of encephalomalacia. Chronic small vessel ischemic changes. Extensive atherosclerosis intracranial vessels. Electronically Signed: Frederick Galindo DO at 21:22 EST , Hip/Pelvis X-Ray 01/24/22 20:16 IMPRESSION: Mildly displaced, mildly comminuted right hip, intertrochanteric fracture. Electronically Signed: Frederick Galindo DO at 21:37 EST , Chest X-Ray 01/24/22 21:11 IMPRESSION: 1. New asymmetric elevation right hemidiaphragm compared to the left 2. Otherwise normal exam. Electronically Signed: Frederick Galindo DO at 21:42 EST , Rhythm Strip Rhythm Strip: Sinus Rhythm Rate: 75 Ectopy: None Physical Exam Const alert, oriented x3, no apparent distress and healthy appearing General Appearance: cooperative, well kempt and well developed Orientation / Consciousness: awake, oriented to person, oriented to place and oriented to time HEENT normocephalic and moist oral mucous membranes Eyes PERRL, EOMs intact bilaterally and conjunctivae normal Neck nuchal rigidity, supple, no JVD and thyroid normal General: trachea midline Resp normal respiratory effort, no retractions, no use of accessory muscles and clear to auscultation bilaterally Auscultation: Negative for rales, rhonchi or wheezes Cardio regular rate, regular rhythm, S1 normal heart sound, S2 normal heart sound, no murmurs, no rub and no gallops GI normal to inspection, nondistended, normoactive bowel sounds, soft to palpation, non-tender and non-distended Extremity no clubbing, cyanosis or edema Skin no rashes or lesions noted General Skin Exam: no breakdown Neuro oriented x3, CN's II-XII intact bilaterally, no focal motor deficits and no sensory deficits noted Sensorium / Orientation: awake and alert Speech: speech normal Psych affect normal Assessment & Plan Assessment/Plan (1) Closed fracture of right hip: PLAN: 1. Intertrochanteric fracture right hip-postop day 0 gamma nail insertion-PT and OT will see the patient, she most probably will need short-term placement in a intermediate facility due to advanced age. #2 chronic obstructive pulmonary disease-patient wears oxygen via nasal cannula only at night, she is on Symbicort inhaler at home, albuterol breathing treatments are ordered every 4 hours as needed, I will place her on albuterol aerosols every 6 hours and Pulmicort aerosols twice daily to take the place of her Symbicort. #3 chronic diastolic congestive heart failure-stable at this time, patient will remain on her present medications #4 cerebrovascular disease-patient is on aspirin and Plavix #5 hyperlipidemia-patient will remain on Lipitor #6 history of angina pectoris-patient is on long-acting nitrates Charges/Coding Visit Charges Inpatient E&M: 33908 Subs Hosp L2
[2022-01-25] MEDS: Cefazolin 1 GM/50 ML BAG IV (18:07)
[2022-01-25] MEDS: Atorvastatin Calcium 10 MG Tablet PO (21:33)
[2022-01-26] VITALS (8 sets, daily range): BP systolic 101–139; BP diastolic 48–73; PULSE 65–76; RESP 18; TEMP 36.3–37.1; O2SAT 95–99
[2022-01-26] MEDS: Lactated Ringers 1,000 ML 100 ML IV ×2 (01:31→12:01)
[2022-01-26] MEDS: Cefazolin 1 GM/50 ML BAG IV ×2 (02:25→10:09)
[2022-01-26] MEDS: Acetaminophen 500 MG Tablet 1000 MG PO ×3 (05:41→21:05)
[2022-01-26 05:44] LABS: Hematocrit 28.5 % (37-47); Hemoglobin 9.1 g/dL (12.0-15.0); Mean Corp Hgb Conc 31.9 g/dL (32-36); Mean Corpuscular Hgb 30.4 pg (27.0-32.0); Mean Corpuscular Volume 95.3 fL (81-99); Mean Platelet Vol. 10.2 fl (6.2-12.0); Platelet Count 179 K/mm3 (150-450); RBC Distribution Width CV 14.5 % (11.6-14.6); RBC Distribution Width SD 50.4 fl (35.1-43.9); Red Blood Count 2.99 M/mm3 (4.2-5.4); White Blood Count 8.6 K/mm3 (4.4-11.0)
[2022-01-26 05:55] LABS: Anion Gap 4 (5-15); BUN 21 mg/dL (7-18); BUN/Creat Ratio 23.3 RATIO (10-20); Calcium,Total 8.2 mg/dL (8.5-10.1); Chloride 110 mmol/L (98-107); EST Glomerular Filtration Rate 63 mL/min (>60); Est Glom Filt Rate - Afr Amer 76 mL/min (>60); Estimated Creatinine Clearance 43.56 ml/min; Glucose 134 mg/dL (74-106); Potassium 3.8 mmol/L (3.5-5.1); Sodium Level 139 mmol/L (136-145)
--- NOTE | 2022-01-26 07:12 | PCM.PN.ORT ---
Subjective Subjective Patient seen and evaluated at bedside this morning. Denies any new complaints. Reports lateral right hip pain. Denies fevers, chills, nausea vomiting, chest pain or shortness of breath. Objective Data Objective Data Vital Signs: Vital Signs Temp Pulse Resp BP Pulse Ox 98 F 75 18 117/58 L 98 01/26/22 02:30 01/26/22 02:30 01/26/22 02:30 01/26/22 02:30 01/26/22 02:30 Oxygen Flow Rate (L/min) 3 Oxygen Delivery Method Nasal Cannula Weight: 179 lb 14.355 oz Body Mass Index (BMI) 28.9 Intake & Output: Intake and Output for Last 24 Hours 01/24/22 01/25/22 01/26/22 23:59 23:59 23:59 Intake Total 1338.33 / 1338.33 686.67 / 686.67 Output Total 300 / 600 800 / 800 Balance 1038.33 / 738.33 -113.33 / -113.33 Lab / Micro Data Result Diagrams: 01/26/22 05:26 01/26/22 05:26 Labs: Laboratory Results - last 24 hr 01/25/22 05:00: Total Bilirubin 0.40, Direct Bilirubin < 0.05, AST 32, ALT 21, Alkaline Phosphatase 72, Total Protein 7.4, Albumin 3.1 L, Globulin 4.3 H 01/26/22 05:26: WBC 8.6, RBC 2.99 L, Hgb 9.1 L, Hct 28.5 L, MCV 95.3, MCH 30.4, MCHC 31.9 L D, RDW Std Deviation 50.4 H, RDW Coeff of Taina 14.5, Plt Count 179, MPV 10.2 01/26/22 05:26: Sodium 139, Potassium 3.8, Chloride 110 H, Carbon Dioxide 25.0, Anion Gap 4 L, BUN 21 H, Creatinine 0.90, Estim Creat Clear Calc 43.56, Est GFR (MDRD) Af Amer 76, Est GFR (MDRD) Non-Af 63, BUN/Creatinine Ratio 23.3 H, Glucose 134 H, Calcium 8.2 L Micro: Microbiology 01/25/22 01:10 Nasal Secretion SARS-CoV-2 Antigen (Rapid) - Final Radiography Diagnostic Testing: Radiology Impression Hip/Pelvis X-Ray 01/25/22 09:45 IMPRESSION: 2 prostatic views of the right hip are obtained during surgery. No radiologist was present in the operating room. Fluoroscopic time was not provided. Electronically Signed: Danis Evans MD at 19:47 EST , Rhythm Strip Rhythm Strip: Sinus Rhythm Rate: 75 Ectopy: None Physical Exam Narrative General - A&Ox3, NAD. VSS/AF Right lower extremity -incisional dressing C/D/I. SILT Sural, Saphenous, SPN, DPN, Tibial N. distributions. DP, PT 2+. BCR. DF, PF, EHL 5/5. No calf TTP. Assessment & Plan Assessment/Plan (1) Closed fracture of right hip: PLAN: POD#1 s/p right femur CMN - Pain control-oxycodone added this morning for oral analgesia - Medicine following for medical management - PT/OT-weightbearing as tolerated right lower extremity - DVT PPX -restart home aspirin and Plavix today - Case management - D/C planning
[2022-01-26] MEDS: Atenolol 50 MG Tablet PO (08:10)
[2022-01-26] MEDS: Isosorbide Mononitrate 60 MG Tablet PO ×2 (08:10→21:04)
[2022-01-26] MEDS: Losartan Potassium 100 MG Tablet PO (08:10)
[2022-01-26] MEDS: Pantoprazole Sodium 20 MG Tablet PO (08:11)
[2022-01-26] MEDS: Senna/Docusate Sodium 1 Tablet 2 TABLET PO ×2 (08:11→21:05)
[2022-01-26] MEDS: Cholecalciferol (VIT D3) 25 MCG TABLET (1,000 UNITS) 50 MCG PO (08:11)
[2022-01-26] MEDS: amLODIPine 2.5 MG Tablet PO (08:11)
[2022-01-26] MEDS: Calcium Carbonate 500 MG Tablet PO ×3 (08:12→16:16)
[2022-01-26] MEDS: Aspirin 81 MG TAB.CHEW PO (08:12)
[2022-01-26] MEDS: Loratadine 10 MG Tablet PO (08:16)
[2022-01-26] MEDS: oxyCODONE 5 MG Tablet 10 MG PO (10:09)
[2022-01-26] MEDS: Clopidogrel Bisulfate 75 MG Tablet PO (10:11)
--- NOTE | 2022-01-26 10:37 | CASEMGMT ---
Addendum entered by Janelle Burciaga 01/26/22 10:49: SW reviewed chart. Pt has CM Jahairashanel Camarillo. HCPOA and LW are on file at [facility]. Pt's HCPOA is her son Cuong Gayle. VICKY placed a call to pt's CM Jahaira Camarillo. Jahaira states she is no longer pt's CM and pt's CM is Monet Arivzu ([phone]). Jahaira states she will relay message to pt's CM that pt is currently at [facility]. VICKY printed off HCPOA and LW and placed on pt's chart. Original Note: Social Work Assessment Referral Date: 01/26/2022 Date of Assessment: 01/26/2022 Reason for Consult: Hip Fracture, Likely SNF placement Informant: SW Personal Status: SW met with pt to complete initial assessment. Pt is alert and orientated x2 (person, time). SW introduced self and role at [facility]. Living Arrangements: Pt states that she lives with her son Cuong in a two story home with three steps to enter. Pt states that she primarily stays on one floor. DME: Walker, Wheelchair, cane, grab bars, raised toilet seat. PCP: Pt states she cannot recall name. Per facesheet, pt's PCP is Linn Will. Pharmacy: Pt unable to recall. SW named a few pharmacy's and then pt stated her pharmacy is [facility]. Advanced Directives: Pt states she has completed both documents. Pt unable to recall who HCPOA is. Pt then states her HCPOA is her son Cuong. SNF: Pt states she has been to [facility] before C: Pt states she currently has [facility]. States her HHC is through [facility]. VICKY updated that pt was past pt of [facility]. Substance Abuse Hx: Pt denied Mental Health Hx: Pt denied SW spoke with pt regarding discharge plans and that recommendation after hip fracture is usually SNF. Pt states that she will not go to a SNF. Pt states that she lives with her son and his girlfriend who will be able to assist pt. VICKY asked pt if her son and his girlfriend is there 14/06 and pt states they are. SW explained that it will just depend on how pt does with therapy. SW informed pt that once PT/OT works with pt, this worker will call pt's son to discuss discharge plans. Pt states understanding, agreeable to this worker calling her son Cuong. Plan: TBD. Pt wishes to discharge home. Will need to monitor how pt does with PT/OT. Janelle Burciaga DIRECTOR MOBILE, ACCOUNTS PAYABLE CLERK
--- NOTE | 2022-01-26 12:31 | NURSING ---
Pt very adament about not working with therapy. I'm not going to do it. I need time. Education given regarding reason for getting oob. Pt sitting at edge of bed with 3 therapy staff next to pt. Pt would not work with therapy as she kept saying, I can't do it. Pt assisted into chair then. Pt states she is painful. This nurse will medicate.
--- NOTE | 2022-01-26 12:57 | NURSING ---
Sitting up in chair and wanting nursing to put her back to bed already. Nikia, pts daughter here and upset that staff wont put her mother back to bed. Explained that she has only been sitting in the chair for 15min and needs to sit up longer and education given.
[2022-01-26] MEDS: 0.9% Saline Lock 10 ML Syringe IV (13:27)
[2022-01-26] MEDS: Morphine 4 MG/ML Syringe IV (13:27)
--- NOTE | 2022-01-26 13:43 | PCM.PN.HOSP ---
Subjective Subjective Patient was seen and examined today, she appeared to have some confusion today, she stated that she did not want to go anywhere at this time I told her that she needed to consider going to short-term m[facility] services when she is discharged from the hospital, she did not seem to understand this. banking services clerk is going to talk with her family today. Patient's hemoglobin today was 9.1. She does not complain of any shortness of breath or chest discomfort. Objective Data Objective Data Vital Signs: Vital Signs Temp Pulse Resp BP Pulse Ox 97.5 F L 65 18 101/48 L 98 01/26/22 13:38 01/26/22 13:38 01/26/22 13:38 01/26/22 13:38 01/26/22 13:38 Oxygen Flow Rate (L/min) 3 Oxygen Delivery Method Nasal Cannula Weight: 81.6 kg Body Mass Index (BMI) 28.9 Intake & Output: Intake and Output for Last 24 Hours 01/24/22 01/25/22 01/26/22 23:59 23:59 23:59 Intake Total 1338.33 / 1338.33 1976.67 / 1975.67 Output Total 300 / 600 1100 / 1100 Balance 1038.33 / 738.33 876.67 / 876.67 Lab / Micro Data Result Diagrams: 01/26/22 05:26 01/26/22 05:26 Labs: Laboratory Results - last 24 hr 01/26/22 05:26: WBC 8.6, RBC 2.99 L, Hgb 9.1 L, Hct 28.5 L, MCV 95.3, MCH 30.4, MCHC 31.9 L D, RDW Std Deviation 50.4 H, RDW Coeff of Taina 14.5, Plt Count 179, MPV 10.2 01/26/22 05:26: Sodium 139, Potassium 3.8, Chloride 110 H, Carbon Dioxide 25.0, Anion Gap 4 L, BUN 21 H, Creatinine 0.90, Estim Creat Clear Calc 43.56, Est GFR (MDRD) Af Amer 76, Est GFR (MDRD) Non-Af 63, BUN/Creatinine Ratio 23.3 H, Glucose 134 H, Calcium 8.2 L Micro: Microbiology 01/25/22 01:10 Nasal Secretion SARS-CoV-2 Antigen (Rapid) - Final Radiography Diagnostic Testing: Radiology Impression Hip/Pelvis X-Ray 01/25/22 09:45 IMPRESSION: 2 prostatic views of the right hip are obtained during surgery. No radiologist was present in the operating room. Fluoroscopic time was not provided. Electronically Signed: Danis Evans MD at 19:47 EST Reading Location ID and State: [address] [place] [address] Tel , Service support , Rhythm Strip Rhythm Strip: Sinus Rhythm Rate: 75 Ectopy: None Physical Exam Const alert, oriented x3 and no apparent distress Constitutional Narrative: Patient has moderate confusion General Appearance: cooperative, well kempt and well developed Orientation / Consciousness: awake, oriented to person, oriented to place and oriented to time HEENT normocephalic, head/scalp atraumatic and moist oral mucous membranes Head and Scalp: normocephalic Eyes PERRL, EOMs intact bilaterally and conjunctivae normal Neck nuchal rigidity, supple, no JVD, thyroid normal and no carotid bruits General: trachea midline Resp normal respiratory effort, no retractions, no use of accessory muscles and clear to auscultation bilaterally Auscultation: Negative for rales, rhonchi or wheezes Cardio regular rate, regular rhythm, S1 normal heart sound, S2 normal heart sound, no murmurs, no rub and no gallops GI normal to inspection, nondistended, normoactive bowel sounds, soft to palpation, non-tender and non-distended Extremity no clubbing, cyanosis or edema Skin no rashes or lesions noted General Skin Exam: no breakdown Neuro CN's II-XII intact bilaterally, no focal motor deficits and no sensory deficits noted Neuro Narrative: Patient exhibits moderate confusion Sensorium / Orientation: awake and alert Psych Psych Narrative: Patient is alert but confused Assessment & Plan Assessment/Plan (1) Closed fracture of right hip: PLAN: 1. Intertrochanteric fracture right hip-postop day 1 gamma nail insertion-PT and OT will see the patient, she most probably will need short-term placement in a [facility] facility due to advanced age. #2 chronic obstructive pulmonary disease-patient wears oxygen via nasal cannula only at night, she is on Symbicort inhaler at home, albuterol breathing treatments are ordered every 4 hours as needed, I will place her on albuterol aerosols every 6 hours and Pulmicort aerosols twice daily to take the place of her Symbicort. 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 Charges/Coding Visit Charges Inpatient E&M: 80923 Subs Hosp L2
--- NOTE | 2022-01-26 14:28 | CASEMGMT ---
Social Work Note Pt's HCPOA is sophia Gayle. Pt currently confused. SW reviewed PT/OT, pt is currently max/dependent assist of two. Recommendation is SNF. SW placed a call to pt's son Cuong and left message asking for call back. SW waiting for call back from Cuong. VICKY then updated that pt's daughter was at [facility] earlier requesting rehab for pt. SW to discuss discharge plans with Cuong. Plan: [facility], VICKY to discuss with pt's HCPOA Cuong Janelle Burciaga RETAIL MARKETING EXECUTIVE, LARDER COOK
[2022-01-26] MEDS: Atorvastatin Calcium 10 MG Tablet PO (21:05)
[2022-01-27] VITALS (7 sets, daily range): BP systolic 147–155; BP diastolic 70–88; PULSE 78–82; RESP 18–20; TEMP 36.6–37.1; O2SAT 94–98
[2022-01-27] MEDS: Acetaminophen 500 MG Tablet 1000 MG PO ×3 (05:13→20:36)
[2022-01-27 07:10] LABS: Hematocrit 25.5 % (37-47); Hemoglobin 8.3 g/dL (12.0-15.0); Mean Corp Hgb Conc 32.5 g/dL (32-36); Mean Corpuscular Hgb 30.5 pg (27.0-32.0); Mean Corpuscular Volume 93.8 fL (81-99); Mean Platelet Vol. 10.5 fl (6.2-12.0); Platelet Count 172 K/mm3 (150-450); RBC Distribution Width CV 14.5 % (11.6-14.6); RBC Distribution Width SD 49.1 fl (35.1-43.9); Red Blood Count 2.72 M/mm3 (4.2-5.4)
[2022-01-27] MEDS: Aspirin 81 MG TAB.CHEW PO (08:08)
[2022-01-27] MEDS: Calcium Carbonate 500 MG Tablet PO ×3 (08:08→20:36)
--- NOTE | 2022-01-27 09:39 | CASEMGMT ---
Addendum entered by Janelle Burciaga 01/27/22 11:38: VICKY placed a call to pt's brother Cuong and updated him that TCU can accept pt pending pre-cert. Cuong states understanding. Plan: TCU pending pre-cert Original Note: Social Work Note VICKY placed a call to pt's son Cuong to discuss discharge planning. Cuong states he got this worker's message last night but it was too late to call this worker back. VICKY discussed discharge planning with Cuong and recommendation is SNF. Cuong states his preferred provider is [facility]. VICKY informed Cuong that this worker will confirm with TCU about bed availability and let him know. Cuong states if he doesn't answer to just leave him a message. VICKY placed a call to Amparo with TCU and provided referral. Plan: TCU pending acceptance and pre-cert Janelle Burciaga LASTING ROOM SUPERVISOR, VIDEO SOFTWARE ENGINEER
[2022-01-27 10:25] LABS: Pathologist Review Reviewed
[2022-01-27] MEDS: amLODIPine 2.5 MG Tablet PO (10:56)
[2022-01-27] MEDS: Pantoprazole Sodium 20 MG Tablet PO (10:56)
[2022-01-27] MEDS: Loratadine 10 MG Tablet PO (10:56)
[2022-01-27] MEDS: Isosorbide Mononitrate 60 MG Tablet PO ×2 (10:56→20:36)
[2022-01-27] MEDS: Senna/Docusate Sodium 1 Tablet 2 TABLET PO ×2 (10:56→20:36)
[2022-01-27] MEDS: Clopidogrel Bisulfate 75 MG Tablet PO (10:56)
[2022-01-27] MEDS: Atenolol 50 MG Tablet PO (10:56)
[2022-01-27] MEDS: Losartan Potassium 100 MG Tablet PO (10:56)
[2022-01-27] MEDS: Cholecalciferol (VIT D3) 25 MCG TABLET (1,000 UNITS) 50 MCG PO (10:56)
[2022-01-27] MEDS: oxyCODONE 5 MG Tablet 10 MG PO ×2 (10:57→20:37)
--- NOTE | 2022-01-27 11:44 | CASEMGMT ---
Social Work Note Per youth nutritional monitor questions, pt has completed HCPOA and LW and provided documents to [facility]. SW reviewed chart. Both HCPOA and LW are on file at [facility]. Janelle Burciaga MSW, WIRE PREPARATION MACHINE TENDER
--- NOTE | 2022-01-27 15:43 | CASEMGMT ---
Addendum entered by Janelle Burciaga 01/27/22 16:07: VICKY received call from Nikia asking if pt is able to go to TCU. VICKY informed Nikia that since Cuong is HCPOA this worker has been working with him on discharge plans so Cuong has the information but this worker did update Nikia (with Cuong's permission) that pt has been accepted to TCU pending pre-cert. Nikia asked if this worker will let them know when pt moves to TCU and this worker informed Nikia that this worker has told Cuong that he will be updated when pt moves to TCU. Nikia states understanding. Original Note: Social Work Note VICKY placed a call to Amparo with TCU. Pre-cert is still pending. VICKY updated that pt's daughter Nikia was at [facility] earlier and did want to speak with this worker. VICKY placed a call to the number listed for Nikia, Nikia's significant other answered the phone, states Nikia is currently not available. Nikia's S/O told this worker that Cuong had updated them earlier VICKY encouraged Nikia's S/O to just have Nikia speak to Cuong regarding an update as he is HCPOA. VICKY did place a call to pt's son Cuong and updated him that pre-cert for TCU is still pending. VICKY did informed Cuong that Nikia had requested to speak to this worker today and this worker just wanted to confirm with him that this worker can give updates to Nikia. Cuong gave this worker permission to update Nikia. VICKY informed Cuong that when pt goes to TCU, he will be notified. Cuong states he is not sure why Nikia is visitor as it was supposed to be him. VICKY informed Nikia that this worker is not sure how a visitor is decided but did inform Cuong that when pt is on TCU, he will be allowed to visit her as well. Cuong states understanding. VICKY placed Green sheet on chart in the event pre-cert is obtained. Plan: TCU pending pre-cert Janelle Burciaga MERCHANDISE BUYER, ANIMAL TECHNICIAN
--- NOTE | 2022-01-27 17:08 | PCM.PN.HOSP ---
Subjective Subjective Patient was seen and examined today, she remains confused, I talked with the daughter who was in the room at the time of my examination. This appears to be the patient's baseline. We are currently trying to get the patient a bed at transitional care unit for inpatient rehab services. Patient does not complain today of any shortness of breath, chills, or fever. Patient is currently wearing oxygen at the time my examination, daughter states she wears 2 L at bedtime only. Objective Data Objective Data Vital Signs: Vital Signs Temp Pulse Resp BP Pulse Ox 97.9 F 82 18 155/88 H 94 01/27/22 14:27 01/27/22 14:27 01/27/22 14:27 01/27/22 14:27 01/27/22 14:27 Oxygen Flow Rate (L/min) 3 Oxygen Delivery Method Nasal Cannula Weight: 83.7 kg Body Mass Index (BMI) 28.9 Intake & Output: Intake and Output for Last 24 Hours 01/25/22 01/26/22 01/27/22 23:59 23:59 23:59 Intake Total 1338.33 / 1338.33 2800.00 / 2800.00 150 / 150 Output Total 300 / 600 1565 / 1565 850 / 850 Balance 1038.33 / 738.33 1235.00 / 1235.00 -700 / -700 Lab / Micro Data Result Diagrams: 01/27/22 06:25 01/26/22 05:26 Labs: Laboratory Results - last 24 hr 01/24/22 20:39: Diff Path Review Reviewed 01/27/22 06:25: WBC 10.0, RBC 2.72 L, Hgb 8.3 L, Hct 25.5 L, MCV 93.8, MCH 30.5, MCHC 32.5, RDW Std Deviation 49.1 H, RDW Coeff of Taina 14.5, Plt Count 172, MPV 10.5 Micro: Microbiology 01/25/22 01:10 Nasal Secretion SARS-CoV-2 Antigen (Rapid) - Final Rhythm Strip Rhythm Strip: Sinus Rhythm Rate: 75 Ectopy: None Physical Exam Const alert and no apparent distress Constitutional Narrative: Patient exhibits confusion General Appearance: cooperative, well kempt and well developed Orientation / Consciousness: awake, oriented to person, oriented to place and oriented to time HEENT normocephalic, head/scalp atraumatic and moist oral mucous membranes Eyes PERRL, EOMs intact bilaterally and conjunctivae normal Neck nuchal rigidity, supple, no JVD, thyroid normal and no carotid bruits General: trachea midline Resp normal respiratory effort, no retractions, no use of accessory muscles and clear to auscultation bilaterally Auscultation: Negative for rales, rhonchi or wheezes Cardio regular rate, regular rhythm, S1 normal heart sound, S2 normal heart sound, no murmurs, no rub and no gallops GI normal to inspection, nondistended, normoactive bowel sounds, soft to palpation, non-tender and non-distended Extremity no clubbing, cyanosis or edema Skin no rashes or lesions noted General Skin Exam: no breakdown Neuro CN's II-XII intact bilaterally, no focal motor deficits and no sensory deficits noted Sensorium / Orientation: awake and alert Psych Psych Narrative: Patient is alert but she exhibits confusion, she is not agitated Assessment & Plan Assessment/Plan (1) Closed fracture of right hip: PLAN: 1. Intertrochanteric fracture right hip-postop day 2 gamma nail insertion-PT and OT are seeing the patient, we have put in for a bed in TCU for inpatient rehab services, the son is the POA as far as healthcare is concerned for the patient. #2 chronic obstructive pulmonary disease with hypoxia -patient wears oxygen via nasal cannula only at night, she is on Symbicort inhaler at home, albuterol breathing treatments are ordered every 4 hours as needed, she remains on nasal cannula oxygen at 3 L, she will receive albuterol aerosol treatments as needed #3 chronic diastolic congestive heart failure-stable at this time, patient will remain on her present medications #4 cerebrovascular disease-patient is on aspirin and Plavix #5 hyperlipidemia-patient will remain on Lipitor #6 history of angina pectoris-patient is on long-acting nitrates #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 Charges/Coding Visit Charges Inpatient E&M: 70152 Subs Hosp L2
[2022-01-27] MEDS: Atorvastatin Calcium 10 MG Tablet PO (20:36)
[2022-01-28 02:57] VITALS: BP 125/66; PULSE 69; RESP 18; TEMP 36.7; O2SAT 99
[2022-01-28 03:00] VITALS: O2SAT 99
[2022-01-28 05:57] LABS: Hematocrit 25.3 % (37-47); Hemoglobin 8.3 g/dL (12.0-15.0); Mean Corp Hgb Conc 32.8 g/dL (32-36); Mean Corpuscular Hgb 30.4 pg (27.0-32.0); Mean Corpuscular Volume 92.7 fL (81-99); Mean Platelet Vol. 10.1 fl (6.2-12.0); Platelet Count 206 K/mm3 (150-450); RBC Distribution Width SD 48.2 fl (35.1-43.9); Red Blood Count 2.73 M/mm3 (4.2-5.4); White Blood Count 9.9 K/mm3 (4.4-11.0)
[2022-01-28] MEDS: Acetaminophen 500 MG Tablet 1000 MG PO ×3 (06:21→21:33)
[2022-01-28 07:31] VITALS: O2SAT 99
[2022-01-28 08:07] VITALS: BP 136/67; PULSE 72; RESP 16; TEMP 36.8; O2SAT 99
[2022-01-28] MEDS: Aspirin 81 MG TAB.CHEW PO (08:19)
[2022-01-28] MEDS: Calcium Carbonate 500 MG Tablet PO ×3 (08:19→16:38)
--- NOTE | 2022-01-28 09:27 | CASEMGMT ---
Addendum entered by Janelle Burciaga 01/28/22 15:35: Updated PT/OT notes sent to pt's insurance. At this time, pre-cert is still pending. Original Note: Social Work Note SW received message from Amparo with TCU, pre-cert is still pending, [employer] requesting updated PT/OT notes from today. SW in to speak with pt. SW informed pt that she needs to be motivated to work with PT/OT and try to take some steps with them. Pt states I can't take steps. SW informed pt that she needs to try as insurance needs to approve SNF and pt working with therapy is how insurance is going to approve it. Plan: TCU pending pre-cert Janelle Burciaga RIGHT OF WAY MANAGER, COPPER ROLLER HANDLER PRINTING
[2022-01-28] MEDS: Isosorbide Mononitrate 60 MG Tablet PO ×2 (11:40→21:33)
[2022-01-28] MEDS: Loratadine 10 MG Tablet PO (11:40)
[2022-01-28] MEDS: Losartan Potassium 100 MG Tablet PO (11:40)
[2022-01-28] MEDS: Pantoprazole Sodium 20 MG Tablet PO (11:41)
[2022-01-28] MEDS: Senna/Docusate Sodium 1 Tablet 2 TABLET PO ×2 (11:41→21:33)
[2022-01-28] MEDS: Clopidogrel Bisulfate 75 MG Tablet PO (11:41)
[2022-01-28] MEDS: Atenolol 50 MG Tablet PO (11:41)
[2022-01-28] MEDS: amLODIPine 2.5 MG Tablet PO (11:41)
[2022-01-28] MEDS: Cholecalciferol (VIT D3) 25 MCG TABLET (1,000 UNITS) 50 MCG PO (11:42)
[2022-01-28 15:43] VITALS: BP 131/58; PULSE 82; RESP 16; TEMP 36.9; O2SAT 94
--- NOTE | 2022-01-28 15:43 | PCM.PN.HOSP ---
Subjective Subjective Patient is complaining of pain however she states that is controlled with current medications been given. Her participation with therapy has been somewhat limited although we are encouraging her to be more active. I suspect that her dementia plays into this time. No specific issues overnight. Objective Data Objective Data Vital Signs: Vital Signs Temp Pulse Resp BP Pulse Ox 98.2 F 72 16 136/67 H 99 01/28/22 08:07 01/28/22 08:07 01/28/22 08:07 01/28/22 08:07 01/28/22 08:07 Oxygen Flow Rate (L/min) 2 Oxygen Delivery Method Nasal Cannula Weight: 84.9 kg Body Mass Index (BMI) 28.9 Intake & Output: Intake and Output for Last 24 Hours 01/26/22 01/27/22 01/28/22 23:59 23:59 23:59 Intake Total 2800.00 / 2800.00 150 / 150 Output Total 1565 / 1565 1250 / 1250 750 / 750 Balance 1235.00 / 1235.00 -1100 / -1100 -750 / -750 Lab / Micro Data Result Diagrams: 01/28/22 05:38 01/26/22 05:26 Labs: Laboratory Results - last 24 hr 01/28/22 05:38: WBC 9.9, RBC 2.73 L, Hgb 8.3 L, Hct 25.3 L, MCV 92.7, MCH 30.4, MCHC 32.8, RDW Std Deviation 48.2 H, RDW Coeff of Taina 14.0, Plt Count 206, MPV 10.1 Micro: Microbiology 01/25/22 01:10 Nasal Secretion SARS-CoV-2 Antigen (Rapid) - Final Rhythm Strip Rhythm Strip: Sinus Rhythm Rate: 75 Ectopy: None Physical Exam Const alert, no apparent distress, healthy appearing and well nourished Constitutional Narrative: Older obese white female sitting up in bed, watching television and eating breakfast, mild confusion, appears comfortable nontoxic Exam Limitations: no limitations Nutritional Appearance: obese HEENT head/scalp atraumatic and moist oral mucous membranes HEENT Narrative: No thrush Head and Scalp: normocephalic Resp normal respiratory effort, no retractions, no use of accessory muscles and clear to auscultation bilaterally Resp Narrative: Diffusely diminished but clear Auscultation: Negative for crackles, rales, rhonchi or wheezes Cardio regular rate, regular rhythm, S1 normal heart sound, S2 normal heart sound, no murmurs, no rub, no gallops, no clicks and no JVD GI normal to inspection, nondistended, normoactive bowel sounds, soft to palpation, non-tender and non-distended Extremity no clubbing, cyanosis or edema Peripheral Pulses: Yes pulses 2+ throughout Skin Skin Narrative: Right hip with dressing and polar ice in place Neuro CN's II-XII intact bilaterally and no focal motor deficits Neuro Narrative: Follows commands well but mildly confused which is evidently her baseline Sensorium / Orientation: awake and alert Speech: speech normal Assessment & Plan Assessment/Plan (1) Fall: (2) Closed fracture of right hip: PLAN: Right intertrochanteric hip fracture -Postop day 3 IM nailing -Patient is weightbearing as tolerated with a walker -SCDs, SESAR hose, home aspirin and Plavix for DVT prophylaxis per surgery -Postop x-rays in 3 weeks with follow-up seeing Dr. 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
[2022-01-28] MEDS: oxyCODONE 5 MG Tablet 10 MG PO (16:39)
[2022-01-28 21:24] VITALS: BP 147/72; PULSE 86; RESP 18; TEMP 37.5; O2SAT 94
[2022-01-28] MEDS: Atorvastatin Calcium 10 MG Tablet PO (21:33)
[2022-01-29] VITALS (7 sets, daily range): BP systolic 127–154; BP diastolic 66–74; PULSE 73–81; RESP 14–18; TEMP 36.1–36.7; O2SAT 94–99
[2022-01-29] MEDS: Acetaminophen 500 MG Tablet 1000 MG PO ×2 (06:19→13:43)
[2022-01-29] MEDS: oxyCODONE 5 MG Tablet 10 MG PO ×2 (06:22→13:44)
[2022-01-29] MEDS: Calcium Carbonate 500 MG Tablet PO ×2 (07:51→11:20)
[2022-01-29] MEDS: Aspirin 81 MG TAB.CHEW PO (07:51)
[2022-01-29] MEDS: Senna/Docusate Sodium 1 Tablet 2 TABLET PO (09:02)
[2022-01-29] MEDS: Atenolol 50 MG Tablet PO (09:02)
[2022-01-29] MEDS: Cholecalciferol (VIT D3) 25 MCG TABLET (1,000 UNITS) 50 MCG PO (09:02)
[2022-01-29] MEDS: Losartan Potassium 100 MG Tablet PO (09:03)
[2022-01-29] MEDS: amLODIPine 2.5 MG Tablet PO (09:03)
[2022-01-29] MEDS: Pantoprazole Sodium 20 MG Tablet PO (09:03)
[2022-01-29] MEDS: Isosorbide Mononitrate 60 MG Tablet PO (09:03)
[2022-01-29] MEDS: Clopidogrel Bisulfate 75 MG Tablet PO (09:03)
[2022-01-29] MEDS: Loratadine 10 MG Tablet PO (09:03)
--- NOTE | 2022-01-29 09:16 | CASEMGMT ---
Social Work Note SW received message from Amparo with TCU stating pre-cert has been obtained and pt can discharge to TCU today. Physician updated. SW received message from Evan Hilton stating pt's CM is Johanny Carbajal ([phone]). Pt has aide services through [employer] M,W, F for 4 hours each day and has an Emergency Response Button through [employer]. Evan Hilton number is [phone]. Plan: TCU today Janelle Burciaga MUSIC EDUCATION DIRECTOR, TAB MACHINE OPERATOR
--- NOTE | 2022-01-29 09:47 | DS.PCM_ITS ---
Providers Date of Admission: 01/24/22 Date of Discharge: 01/29/22 Primary Care Physician: Dr. Linn Will MD Consultations 01/25/22 03:10 Consult: Orthopedics Routine Consulting Provider: Ronald Byrd Reason for Consult: right hip fracture EMERGENT Consult: No MD Notified: Yes Date Notified: 01/24/22 Time Notified: 20:20 Method of Notification: Text Comments:: notified by ED Reason For Visit: RIGHT HIP FRACTURE Diagnosis Discharge Diagnosis (1) Fall: Status: Acute Code(s): W19.XXXA - Unspecified fall, initial encounter (2) Closed fracture of right hip: Status: Acute Code(s): S72.001A - Fracture of unspecified part of neck of right femur, initial encounter for closed fracture Medications at Discharge Home Medications atenolol 50 mg PO DAILY 01/31/19 atorvastatin 10 mg PO DAILY 01/31/19 clopidogrel 75 mg PO DAILY 01/31/19 loratadine 10 mg PO DAILY 01/31/19 omeprazole 20 mg PO DAILY 01/31/19 potassium chloride 20 mEq tablet,extended release(part/cryst) 20 meq PO BID tab 09/01/19 albuterol sulfate 1 - 2 puff IH Q4H PRN PRN 06/13/20 cholecalciferol (vitamin D3) 2,000 unit PO DAILY 06/13/20 losartan 100 mg tablet 100 mg PO DAILY #90 tab 06/06/21 isosorbide mononitrate 60 mg tablet,extended release 24 hr 60 mg PO BID #60 tab 06/11/21 melatonin 5 mg PO QHS PRN 09/10/21 oxybutynin chloride 10 mg PO DAILY 09/10/21 meclizine 25 mg PO TID PRN #30 tab 09/11/21 furosemide 40 mg tablet 80 mg PO DAILY tab 12/01/21 nitroglycerin 0.4 mg sublingual tablet 0.4 mg SUBLINGUAL Q5-15M PRN #25 tab 12/01/21 amlodipine 2.5 mg PO DAILY 01/25/22 aspirin 81 mg PO DAILY 01/25/22 fluticasone propion-salmeterol 1 inh INHALATION BID 01/25/22 acetaminophen 1,000 mg PO Q8 #0 tab 01/29/22 dextromethorphan-guaifenesin 5 ml PO Q6H PRN PRN #0 ml 01/29/22 oxycodone 10 mg PO Q6H PRN PRN 1 Days #0 tab 01/29/22 sennosides-docusate sodium [Stool Softener-Stimulant Laxat] 2 tab PO BID #0 tab 01/29/22 Hospital Course Operations - (Right hip intramedullary nail) Procedures None Summary of Care Provided Minutes Spent on Discharge: 38 Hospital Course: Mrs. Gayle is an 86-year-old white female who presented to the emergency department at [facility] on 01/24/2022 after suffering a mechanical fall at home and complaining of right hip pain. She evidently was tr marcus to pick it while standing and fell to her right side. She reported immediate pain and had difficulty ambulating so she came to the emergency department. In the emergency department she was found to have a white count of 14.9 which was thought to be reactive and x-rays of the right hip revealed a mildly displaced and mildly comminuted right hip intertrochanteric fracture. She was admitted to the hospital and orthopedic surgery was consulted. She was taken to the operating room on 01/25/2022 at which time a right intramedullary nail was placed in the right femur. Postop recommendations for weightbearing are weightbearing as tolerated with a walker. DVT prophylaxis was recommended to be SCDs with early mobilization and SESAR hose and pharmacologically to include her home aspirin and Plavix to be continued. Her dressing is to be changed daily and as needed for any saturation and she is to have postop follow-up with Dr. Byrd in 3 weeks for postop x-rays. She was seen by therapy services and they recommended continue therapy and therefore shelter facility was recommended. Patient/family elected to go to the transitional care unit and pre-CERT was submitted to the insurance company. Of note she does wear oxygen for baseline COPD but only does so at night. Her baseline oxygen utilization is 3 L. The daughter remained with some confusion during her hospitalization and per discussion with her daughter this is her baseline. A CT of her head was done on admission and did show no acute intracranial pathology but left frontal lobe lateral peripheral area of encephalomalacia from previous stroke as well as chronic small vessel ischemic changes and extensive atherosclerosis in the intracranial vessels.We received pre-CERT on 01/29/2022 and the patient was discharged in stable condition to the transitional care unit at this time. Discharge diagnoses: Right intertrochanteric hip fracture status post IM nailing COPD Chronic diastolic heart failure Cerebrovascular disease Hyperlipidemia CAD Hypertension GERD Overactive bladder Suspected vascular dementia Physical Exam Const alert, no apparent distress, healthy appearing and well nourished Constitutional Narrative: Older obese white female sitting up in chair at the bedside, watching television and eating breakfast, mild confusion, appears comfortable nontoxic General Appearance: cooperative, comfortable, well kempt and well developed Orientation / Consciousness: awake, oriented to person, oriented to place and oriented to time Exam Limitations: no limitations Nutritional Appearance: obese HEENT normocephalic, head/scalp atraumatic and moist oral mucous membranes HEENT Narrative: Fairly hard of hearing, no thrush Eyes PERRL, EOMs intact bilaterally and conjunctivae normal Eyes Narrative: No scleral icterus Neck nuchal rigidity, no lymphadenopathy, supple and thyroid normal General: trachea midline Resp normal respiratory effort, no retractions, no use of accessory muscles and clear to auscultation bilaterally Resp Narrative: Diffusely diminished but clear Auscultation: Negative for crackles, rales, rhonchi or wheezes Cardio regular rate, regular rhythm, S1 normal heart sound, S2 normal heart sound, no murmurs, no rub, no gallops, no clicks and no JVD GI normal to inspection, nondistended, normoactive bowel sounds, soft to palpation, non-tender and non-distended; Negative for hepatosplenomegaly Extremity no clubbing, cyanosis or edema Extremity Narrative: Right hip tenderness, postoperative bandage with minimal drainage and occlusive dressing is still intact, polar ice covering area Skin no rashes or lesions noted, skin turgor normal and no jaundice Skin Narrative: Postop incision as above General Skin Exam: no breakdown Neuro CN's II-XII intact bilaterally, no focal motor deficits and no sensory deficits noted Neuro Narrative: Follows commands well but mildly confused Sensorium / Orientation: awake and alert Speech: speech normal Psych affect normal Psych Narrative: Patient is alert but she exhibits confusion, she is not agitated Appearance: appropriate Weight / BMI Weight Weight: 84.6 kg Body Mass Index (BMI) 28.9 ABG / Lab / Microbiology Data Result Diagrams: 01/28/22 05:38 01/26/22 05:26 Microbiology: Microbiology 01/25/22 01:10 Nasal Secretion SARS-CoV-2 Antigen (Rapid) - Final Meaningful Use Info Meaningful Use Diagnoses (Choose all that apply): None applicable Discharge Plan Admission Admit Date/Time: 01/24/22 22:47 Primary Reason for Your Visit: Fall/R Hip Fracture Attending Provider: Mayra Obando Primary Care Provider: Linn Will Consulting Providers: Ronald Byrd Discharge Orders/Prescriptions Prescriptions: New oxycodone 5 mg Tablet 10 mg PO Q6H PRN PRN (Reason: Pain Score 6-10) 1 Days Qty: 0 RF: 0 sennosides-docusate sodium [Stool Softener-Stimulant Laxat] 8.6-50 mg Tablet 2 tab PO BID Qty: 0 RF: 0 dextromethorphan-guaifenesin 10-100 mg/5 mL Syrup 5 ml PO Q6H PRN PRN (Reason: Cough) Qty: 0 RF: 0 acetaminophen 500 mg Tablet 1,000 mg PO Q8 Qty: 0 RF: 0 Continued furosemide 40 mg tablet 80 mg PO DAILY RF: 0 nitroglycerin 0.4 mg tablet, sublingual 0.4 mg SUBLINGUAL Q5-15M PRN (Reason: chest pain) Qty: 25 RF: 3 atorvastatin 10 MG tablet 10 mg PO DAILY RF: 0 clopidogrel 75 MG tablet 75 mg PO DAILY RF: 0 omeprazole 20 MG capsule 20 mg PO DAILY RF: 0 atenolol 50 MG tablet 50 mg PO DAILY RF: 0 loratadine 10 MG tablet 10 mg PO DAILY RF: 0 potassium chloride 20 mEq tablet,ER particles/crystals 20 meq PO BID RF: 0 albuterol sulfate 90 mcg/actuation HFA aerosol inhaler 1 - 2 puff IH Q4H PRN PRN (Reason: Wheezing) RF: 0 cholecalciferol (vitamin D3) 1,000 UNIT tablet 2,000 unit PO DAILY RF: 0 oxybutynin chloride 15 mg tablet extended release 24hr 10 mg PO DAILY RF: 0 melatonin 5 mg Tablet 5 mg PO QHS PRN (Reason: Sleep) RF: 0 meclizine 25 mg tablet 25 mg PO TID PRN (Reason: dizziness) Qty: 30 RF: 1 fluticasone propion-salmeterol 250-50 mcg/dose Blister With Device 1 inh INHALATION BID RF: 0 aspirin 81 mg Tablet 81 mg PO DAILY RF: 0 losartan 100 mg tablet 100 mg PO DAILY Qty: 90 RF: 3 isosorbide mononitrate 60 mg tablet extended release 24 hr 60 mg PO BID Qty: 60 RF: 11 Held amlodipine 2.5 mg Tablet 2.5 mg PO DAILY RF: 0 Hold Instructions: Until otherwise instructed Discontinued phenazopyridine 100 mg Tablet 200 mg PO TID PRN (Reason: pain or fever) RF: 0 acetaminophen [Tylenol 8 Hour] 650 mg tablet extended release 650 mg PO Q6H PRN (Reason: pain or fever) RF: 0 Referrals / Follow Up: Linn Will MD [Primary Care Provider] - Within 1 Month Ronald Byrd DO [STAFF PHYSICIAN] - See Referral Note (3 weeks) Disposition Disposition (needs filled in before D/C Order can be placed): Halfway Facility Charges/Coding Visit Charges Inpatient E&M: 77250 SNF Disch >30 Min
--- NOTE | 2022-01-29 10:06 | PCM.TXEXTCAR ---
Diet 01/25/22 00:11 Diet: Cardiac - Heart Healthy Food consistency:: Regular Liquid Consistency:: Regular/Thin Is pt able to select menu?: No Routine Orders/Code Status Suppository Frequency: Daily PRN O2 Liters per Minute: 3 L at HS nightly Keep PO Greater than or Equal to (%): 92 Routine Lab Work: BMP (3 days) Code Status: Full Code Wound(s) right hip: Wound Type: Surgical Incision Suggestions for Active Care Change Position every (hours): 2 Therapies Weight Bearing: Weight bearing as tolerated Extremity Affected:: Right Lower Physical Therapy: Eval and Treat Occupational Therapy: Eval and Treat Problem/Diagnosis (1) Fall: Status: Acute (2) Closed fracture of right hip: Status: Acute Allergies/Procedures Done in Hospital Allergies adhesive Allergy (Verified 12/01/21 11:19) Rash adhesive tape amitriptyline Allergy (Verified 12/01/21 11:19) CONFUSION codeine Allergy (Verified 12/01/21 11:19) Hives hydrocodone bitartrate [From Vicodin] Allergy (Verified 12/01/21 11:19) Hives Iodinated Contrast Media [Iodinated Contrast Media - IV Dye] Allergy (Verified 12/01/21 11:19) Hives OK WITH PRE-MEDICATION naproxen Allergy (Verified 12/01/21 11:19) Unknown Penicillins Allergy (Verified 01/25/22 13:11) Rash 01/2022: CAN TOLERATE CEPHALOSPORINS phenytoin sodium [From Dilantin] Allergy (Verified 12/01/21 11:19) Hives phenytoin sodium extended [From Dilantin] Allergy (Verified 12/01/21 11:19) Hives silicone Allergy (Verified 12/01/21 11:19) Hives Procedures: None Type of Care/Length of Stay Estimated LOS: Convalescent Care Less Than 30 days Type of Care Needed: Skilled Rehab Potential: Good Prognosis: Good Additional Orders/Day of Discharge Day of Discharge: 01/29/22 Discharge Plan Admission Admit Date/Time: 01/24/22 22:47 Primary Reason for Your Visit: Fall/R Hip Fracture Attending Provider: Mayra Obando Primary Care Provider: Linn Will Consulting Providers: Ronald Byrd Discharge Orders/Prescriptions Prescriptions: New oxycodone 5 mg Tablet 10 mg PO Q6H PRN PRN (Reason: Pain Score 6-10) 1 Days Qty: 0 RF: 0 sennosides-docusate sodium [Stool Softener-Stimulant Laxat] 8.6-50 mg Tablet 2 tab PO BID Qty: 0 RF: 0 dextromethorphan-guaifenesin 10-100 mg/5 mL Syrup 5 ml PO Q6H PRN PRN (Reason: Cough) Qty: 0 RF: 0 acetaminophen 500 mg Tablet 1,000 mg PO Q8 Qty: 0 RF: 0 Continued furosemide 40 mg tablet 80 mg PO DAILY RF: 0 nitroglycerin 0.4 mg tablet, sublingual 0.4 mg SUBLINGUAL Q5-15M PRN (Reason: chest pain) Qty: 25 RF: 3 atorvastatin 10 MG tablet 10 mg PO DAILY RF: 0 clopidogrel 75 MG tablet 75 mg PO DAILY RF: 0 omeprazole 20 MG capsule 20 mg PO DAILY RF: 0 atenolol 50 MG tablet 50 mg PO DAILY RF: 0 loratadine 10 MG tablet 10 mg PO DAILY RF: 0 potassium chloride 20 mEq tablet,ER particles/crystals 20 meq PO BID RF: 0 albuterol sulfate 90 mcg/actuation HFA aerosol inhaler 1 - 2 puff IH Q4H PRN PRN (Reason: Wheezing) RF: 0 cholecalciferol (vitamin D3) 1,000 UNIT tablet 2,000 unit PO DAILY RF: 0 oxybutynin chloride 15 mg tablet extended release 24hr 10 mg PO DAILY RF: 0 melatonin 5 mg Tablet 5 mg PO QHS PRN (Reason: Sleep) RF: 0 meclizine 25 mg tablet 25 mg PO TID PRN (Reason: dizziness) Qty: 30 RF: 1 fluticasone propion-salmeterol 250-50 mcg/dose Blister With Device 1 inh INHALATION BID RF: 0 aspirin 81 mg Tablet 81 mg PO DAILY RF: 0 losartan 100 mg tablet 100 mg PO DAILY Qty: 90 RF: 3 isosorbide mononitrate 60 mg tablet extended release 24 hr 60 mg PO BID Qty: 60 RF: 11 Held amlodipine 2.5 mg Tablet 2.5 mg PO DAILY RF: 0 Hold Instructions: Until otherwise instructed Discontinued phenazopyridine 100 mg Tablet 200 mg PO TID PRN (Reason: pain or fever) RF: 0 acetaminophen [Tylenol 8 Hour] 650 mg tablet extended release 650 mg PO Q6H PRN (Reason: pain or fever) RF: 0 Referrals / Follow Up: Linn Will MD [Primary Care Provider] - Within 1 Month Ronald Byrd DO [STAFF PHYSICIAN] - See Referral Note (3 weeks) Disposition Disposition (needs filled in before D/C Order can be placed): Nursing Home Facility
--- NOTE | 2022-01-29 11:43 | CASEMGMT ---
Addendum entered by Janelle Burciaga 01/29/22 12:35: For continuity of care, this worker also placed a call to pt's daughter Nikia and updated her that pt will discharge to TCU today. Addendum entered by Janelle Burciaga 01/29/22 11:54: SW updated pt that she will move to TCU today. SW informed pt that this worker called her son Cuong and let him know. Of note, when this worker left message for Cuong this worker also asked Cuong if he could update his sister Nikia. Original Note: Social Work Note SW placed a call to pt's son Cuong and left message that pre-cert was obtained for TCU and pt will discharge to TCU today. VICKY placed a call to pt's CM Johanny Carbajal at [facility] and left message updating her that pt will discharge to TCU today. VICKY also placed a call to Evan Hilton at [facility] and left message letting him know pt will be discharged to TCU today. VICKY faxed discharge paperwork to [facility]. Plan: TCU today Janelle Burciaga [employer], LICENSED DIRECT ENTRY MIDWIFE
== END 2022-01-29 13:40 | disposition skilled nursing facility (03) | DRG 481 ==
LOC: ED 22:26 → MS3 23:09
PROVIDERS: Student in an Organized Health Care Education/Training Program; Admitting Provider Family Medicine; Emergency Provider Emergency Medicine; PCP Internal Medicine; Visit Provider Internal Medicine
PROC: 0QS606Z Reposition Right Upper Femur with Intramedullary Internal Fixation Device, Open Approach (ICD-10-PCS; CPT 27245; principal; 2022-01-25 09:00)
DX: S72.141A Displaced intertrochanteric fracture of right femur, initial encounter for closed fracture (principal); I50.32 Chronic diastolic (congestive) heart failure; R62.7 Adult failure to thrive; I11.0 Hypertensive heart disease with heart failure; F01.50 Vascular dementia, unspecified severity, without behavioral disturbance, psychotic disturbance, mood disturbance, and anxiety; J44.9 Chronic obstructive pulmonary disease, unspecified; I25.119 Atherosclerotic heart disease of native coronary artery with unspecified angina pectoris; E78.5 Hyperlipidemia, unspecified; W01.0XXA Fall on same level from slipping, tripping and stumbling without subsequent striking against object, initial encounter; K21.9 Gastro-esophageal reflux disease without esophagitis; Z68.30 Body mass index [BMI] 30.0-30.9, adult; E66.9 Obesity, unspecified; N32.81 Overactive bladder; G47.00 Insomnia, unspecified; F79 Unspecified intellectual disabilities; Z79.02 Long term (current) use of antithrombotics/antiplatelets; Z79.82 Long term (current) use of aspirin; Z79.899 Other long term (current) drug therapy; Z86.73 Personal history of transient ischemic attack (TIA), and cerebral infarction without residual deficits
CPT/HCPCS: 36415; 70450; 71045; 73502; 76000; 80048; 80076; 85025; 85027; 85610; 86850; 86900; 86901; 87426; 93005; 97110; 97116; 97162; 97166; 97530; 97535; 99251; 99285; C1713; J7120; A4216; G0463; J2405

== ENCOUNTER 2022-01-29 14:08 | Inpatient (IN) | payer MEDICARE, MEDICAID, SELFPAY ==
[2022-01-29 14:36] VITALS: BP 147/65; PULSE 83; RESP 18; TEMP 36.3; O2SAT 94
[2022-01-29] MEDS: oxyCODONE 5 MG Tablet 10 MG PO (17:53)
[2022-01-29] MEDS: Senna/Docusate Sodium 1 Tablet 2 TABLET PO (17:55)
[2022-01-29] MEDS: Isosorbide Mononitrate 60 MG Tablet PO (17:55)
[2022-01-29] MEDS: Potassium Chloride Oral Tablet 20 MEQ PO (17:59)
--- NOTE | 2022-01-29 19:56 | HP.PCM_ITS ---
HPI - General General Date of Admission: 01/29/22 HPI Narrative 01/24/2022 CARMEN LAND, is a 86 Female who presents to [facility] Emergency Department with fall. 01/24/2022 EKG normal sinus rhythm, right bundle branch block, abnormal EKG. Fall, right hip pain, unable to stand, walk. Hit head, on plavix. CT head negative for acute findings. Morphine, Zofran given. X-ray shows right hip fracture. 01/24/2022 Admit to Hospital. Prepare for surgery. PT/OT for debility. COPD on chronic oxygen 3 liters per nasal cannula. 01/25/2022 Dr. Byrd performed right hip intramedullary nail fixation. 01/25/2022 PT/OT for senior care facility. Pulmicort, Albuterol, oxygen for COPD. 01/26/2022 Confused, hemoglobin 9.1. PT/OT for senior care facility. Family confirms baseline confusion. 01/27/2022 Confused, suspect vascular dementia. 01/28/2022 Pain controlled with pain medications. Weight bearing as tolerated for right hip fracture. 01/29/2022 Admit to TCU with debility, here for rehabilitation, strengthening, prior to discharge home with son. [facility] Medical History (Updated 01/29/22 @ 20:[address] Tian Alexander MD) Acute cystitis Acute ischemic stroke Adult failure to thrive Allergic rhinitis Angina pectoris Asthma Benign essential HTN Cerebrovascular disease Chronic systolic (congestive) heart failure COPD (chronic obstructive pulmonary disease) Decreased level of consciousness Dilatation of aorta Dizziness Edema Encephalopathy Fall Fracture of rib Gastroesophageal reflux disease Hallucinations History of stroke HLD (hyperlipidemia) Hypokalemia Insomnia Intellectual disability Left hip pain Lethargy Normocytic anemia Overactive bladder Shortness of breath Subdural hematoma Urinary incontinence Urinary tract infection Vitamin D deficiency Weakness Home Medications atenolol 50 mg PO DAILY 01/31/19 [History Last Taken 09/10/21] atorvastatin 10 mg PO DAILY 01/31/19 [History Last Taken 09/09/21] clopidogrel 75 mg PO DAILY 01/31/19 [History Last Taken 09/10/21] loratadine 10 mg PO DAILY 01/31/19 [History Last Taken 09/10/21] omeprazole 20 mg PO DAILY 01/31/19 [History Last Taken 09/10/21] potassium chloride 20 mEq tablet,extended release(part/cryst) 20 meq PO BID tab 09/01/19 [History Last Taken 09/10/21] albuterol sulfate 1 - 2 puff IH Q4H PRN PRN 06/13/20 [History Last Taken 2 Weeks Ago ~08/27/21] cholecalciferol (vitamin D3) 2,000 unit PO DAILY 06/13/20 [History Last Taken 09/10/21] losartan 100 mg tablet 100 mg PO DAILY #90 tab 06/06/21 [Rx Last Taken 09/10/21] melatonin 5 mg PO QHS PRN 09/10/21 [History Last Taken Unknown] oxybutynin chloride 10 mg PO DAILY 09/10/21 [History Last Taken 09/10/21] meclizine 25 mg PO TID PRN #30 tab 09/11/21 [Rx Last Taken Unknown] furosemide 40 mg tablet 80 mg PO DAILY tab 12/01/21 [History Last Taken Unknown] nitroglycerin 0.4 mg sublingual tablet 0.4 mg SUBLINGUAL Q5-15M PRN #25 tab 12/01/21 [Rx Last Taken Unknown] amlodipine 2.5 mg PO DAILY 01/25/22 [History Last Taken Unknown] aspirin 81 mg PO DAILY 01/25/22 [History Last Taken Unknown] fluticasone propion-salmeterol 1 inh INHALATION BID 01/25/22 [History Last Taken Unknown] acetaminophen 1,000 mg PO Q8 01/29/22 [History Last Taken Unknown] dextromethorphan-guaifenesin 5 ml PO Q6H PRN PRN #0 ml 01/29/22 [Rx Last Taken Unknown] isosorbide mononitrate 60 mg PO BID 01/29/22 [History Last Taken Unknown] oxycodone 10 mg PO Q6H PRN PRN 1 Days #0 tab 01/29/22 [Rx Last Taken Unknown] sennosides-docusate sodium [Stool Softener-Stimulant Laxat] 2 tab PO BID 01/29/22 [History Last Taken Unknown] Allergy/AdvReac Type Severity Reaction Status Date / Time adhesive Allergy Rash Verified 12/01/21 11:19 amitriptyline Allergy CONFUSION Verified 12/01/21 11:19 codeine Allergy Hives Verified 12/01/21 11:19 hydrocodone bitartrate Allergy Hives Verified 12/01/21 11:19 [From Vicodin] Iodinated Contrast Media Allergy Hives Verified 12/01/21 11:19 [Iodinated Contrast Media - IV Dye] naproxen Allergy Unknown Verified 12/01/21 11:19 Penicillins Allergy Rash Verified 01/25/22 13:11 phenytoin sodium Allergy Hives Verified 12/01/21 11:19 [From Dilantin] phenytoin sodium extended Allergy Hives Verified 12/01/21 11:19 [From Dilantin] silicone Allergy Hives Verified 12/01/21 11:19 Family History Sister Heart disease Surgical History (Updated 01/29/22 @ 20:[address] Tian Alexander MD) History of brain surgery History of breast biopsy History of hysterectomy History of umbilical hernia repair S/P ORIF (open reduction internal fixation) fracture (~05/19/15) S/P ORIF (open reduction internal fixation) fracture Social History (Updated 01/29/22 @ 20:[address] Tian Alexander MD) household members: children and other details: Son. Smoking Status: Never smoker alcohol intake: never substance use type: does not use caffeine: Yes Type: carbonated beverages and coffee ROS Constitutional Constitutional: Denies chills, fever(s) or weight gain ENT HEENT: Denies headache(s), nasal congestion or nasal discharge Cardiovascular Cardiovascular: Denies chest pain or palpitations Respiratory/Chest Respiratory/Chest: Denies cough, excessive phlegm production or shortness of breath with exertion Gastrointestinal Gastrointestinal: Denies abdominal pain, nausea or vomiting Genitourinary Genitourinary: Denies dysuria Musculoskeletal Musculoskeletal: Denies joint pain or joint swelling Integumentary Integumentary: Denies rash or wounds Neurologic Neurologic: Denies focal weakness, numbness or tingling Psychiatric Psychiatric: Denies anxiety, auditory hallucinations, depression, homicidal ideation or suicidal ideation Vital Signs Vital Signs Vital Signs: 01/29/22 14:12 01/29/22 14:36 Temperature 97.4 F L Temperature Source Temporal Pulse Rate 83 Pulse Rhythm Regular Pulse Strength Normal (2+) Respiratory Rate 18 Respiratory Effort Normal Non-Labored Respiratory Depth Normal Respiratory Pattern Normal Blood Pressure 147/65 H Blood Pressure Mean 92 Blood Pressure Source Monitor Blood Pressure Position Semi-Fowlers Blood Pressure Location Left Arm Pulse Ox 94 Oxygen Delivery Method Nasal Cannula Nasal Cannula Oxygen Flow Rate (L/min) 2 2 Weight Weight: 84.55 kg Body Mass Index (BMI) 30.0 Physical Exam Const alert General Appearance: cooperative HEENT normocephalic Eyes PERRL and EOMs intact bilaterally Neck supple, no JVD and no carotid bruits Resp normal respiratory effort, normal air movement and clear to auscultation bilaterally Cardio regular rate and regular rhythm GI normal to inspection, nondistended, normoactive bowel sounds, non-tender and non-distended Extremity normal capillary refill General Extremity: Negative for edema Skin no rashes or lesions noted General Skin Exam: no breakdown Psych affect normal Appearance: appropriate Results Lab / Micro Data Micro: Microbiology 01/29/22 15:10 Nasal Secretion SARS-CoV-2 Antigen (Rapid) - Final Assessment & Plan Assessment/Plan (1) Debility: (2) Fall: (3) Closed fracture of right hip: (4) Stroke: (5) Intracranial hemorrhage: (6) Hypertension: (7) Hyperlipidemia: (8) Gastroesophageal reflux disease: (9) Insomnia: (10) Vitamin D deficiency: (11) Coronary artery disease: (12) Allergic rhinitis: (13) Overactive bladder: (14) Dizziness: (15) Chronic systolic (congestive) heart failure: (16) Chronic obstructive pulmonary disease: PLAN: 86 year old female with below past medical history hospitalized for right hip fracture, underwent right hip intramedullary nail fixation 01/25/[address] Byrd, complicated by confusion secondary to untreated vascular dementia, admitted to TCU with debility, here for rehabilitation, strengthening, prior to discharge home with son. * Debility - PT/OT. * Cognition - ST. * Pain - Tylenol 1000mg q8h, Oxycodone 10mg q6h prn pain (6-10). * Bowel - Miralax 17gm daily, Senna/colace 2 tablets bid, Dulcolax 10mg po x 1 prn. * Adult immunization - Administer prevnar 20, fluzone, covid19 vaccine as appropriate. * DVT prophylaxis - HAS-BLED 3 high risk of bleeding, Stacia score 8 High risk of blood clot; Hold chemoprophylaxis due to anemia, dual antiplatelet therapy. * COPD - Albuterol 1-2 puff q4h prn, oxygen 3 liters per nasal cannula. * Hypertension - Atenolol 50mg daily, Amlodipine 2.5mg daily. * Coronary artery disease - Atenolol 50mg daily, Losartan 100mg daily, Isosorbide MN 60mg bid, Plavix 75mg daily, Asprin 81mg daily, NTG 0.4mg sl q5m prn. * Hyperlipidemia - Atorvastatin 10mg qhs. * Vitamin D deficiency - D3 25mcg daily. * Nutrition - Ensure Enlive 120ml 4x/day. * Allergic rhinitis - Flonase 1 puff bid, Loratadine 10mg daily. * Chronic systolic congestive heart failure - Atenolol 50mg daily, Losartan 100mg daily, Isosorbide MN 60mg bid, Furosemide 80mg daily. * Cough - Robitussin 5ml q6h prn. * Dizziness - Meclizine 25mg tid prn. * Insomnia - Melatonin 5mg qhs prn. * GERD - Pantoprazole 20mg daily. * Hypokalemia - KCL 20meq bid. * Overactive bladder - Detrol 4mg daily.
[2022-01-29] MEDS: MELATONIN 10 MG TABLET 5 MG PO (21:11)
[2022-01-29] MEDS: Acetaminophen 500 MG Tablet 1000 MG PO (21:11)
--- NOTE | 2022-01-30 00:29 | NURSING ---
After administering HS medication, it was noted that patient had pocketed pills in her cheeks. Gave patient more applesauce and liquids to encourage her to swallow medications. After several attempts was able to get patient to swallow medications. Will continue to monitor.
[2022-01-30 05:44] LABS: Absolute Lymphocyte Count 2.74 X10^3/uL (0.83-4.51); Absolute Neutrophil Count 4.2 X10^3/uL (2.0-7.7); Basophil# 0.14 X10^3/uL; Basophil% 1.3 % (0-1); Eosinophils% 29.6 % (0-5); Hematocrit 23.6 % (37-47); Hemoglobin 7.8 g/dL (12.0-15.0); Lymphocyte # 2.74 X10^3/ul (0.83-4.51); Lymphocyte % 24.5 % (19-41); Mean Corp Hgb Conc 33.1 g/dL (32-36); Mean Corpuscular Hgb 30.2 pg (27.0-32.0); Mean Corpuscular Volume 91.5 fL (81-99); Mean Platelet Vol. 9.6 fl (6.2-12.0); Monocyte# 0.74 X10^3/uL; Monocyte% 6.6 % (0-10); NRBC Flagged by Analyzer 0 % (0-5); Neutrophil # 4.21 X10^3/uL (2.7-7.7); Neutrophil % 37.6 % (47-70); POSITIVE DIFFERENTIAL YES; Platelet Count 243 K/mm3 (150-450); RBC Distribution Width CV 14.3 % (11.6-14.6); RBC Distribution Width SD 47.9 fl (35.1-43.9); Red Blood Count 2.58 M/mm3 (4.2-5.4); White Blood Count 11.2 K/mm3 (4.4-11.0)
[2022-01-30 06:26] LABS: Anion Gap 4 (5-15); BUN 25 mg/dL (7-18); BUN/Creat Ratio 32.3 RATIO (10-20); Calcium,Total 8.8 mg/dL (8.5-10.1); Chloride 110 mmol/L (98-107); Creatinine, Serum 0.77 mg/dL (0.55-1.02); EST Glomerular Filtration Rate 76 mL/min (>60); Est Glom Filt Rate - Afr Amer 91 mL/min (>60); Glucose 106 mg/dL (74-106); Potassium 3.9 mmol/L (3.5-5.1); Sodium Level 141 mmol/L (136-145)
[2022-01-30 06:44] LABS: Differential Indicated SCAN CRITERIA MET; Eosinophil# 3.31 X10^3/uL
[2022-01-30] MEDS: Clopidogrel Bisulfate 75 MG Tablet PO (06:52)
[2022-01-30] MEDS: Acetaminophen 500 MG Tablet 1000 MG PO ×3 (06:52→21:08)
[2022-01-30] MEDS: Atorvastatin Calcium 10 MG Tablet PO (06:53)
[2022-01-30] MEDS: Losartan Potassium 100 MG Tablet PO (06:53)
[2022-01-30] MEDS: Isosorbide Mononitrate 60 MG Tablet PO ×2 (06:53→18:21)
[2022-01-30] MEDS: amLODIPine 2.5 MG Tablet PO (06:53)
[2022-01-30] MEDS: Senna/Docusate Sodium 1 Tablet 2 TABLET PO ×2 (06:53→18:21)
[2022-01-30] MEDS: Tolterodine Tartrate 4 MG CAP.SA PO (06:53)
[2022-01-30] MEDS: Pantoprazole Sodium 20 MG Tablet PO (06:53)
[2022-01-30] MEDS: Loratadine 10 MG Tablet PO (06:53)
[2022-01-30] MEDS: Cholecalciferol (VIT D3) 25 MCG TABLET (1,000 UNITS) PO (06:53)
[2022-01-30] MEDS: Furosemide 80 MG Tablet PO (06:53)
[2022-01-30] MEDS: Atenolol 50 MG Tablet PO (06:53)
[2022-01-30] MEDS: 0.9% Saline Lock 10 ML Syringe IV ×2 (07:01→21:10)
[2022-01-30] MEDS: Aspirin E.C. 81 MG Tablet PO (08:40)
[2022-01-30] MEDS: Potassium Chloride Oral Tablet 20 MEQ PO ×2 (08:40→18:21)
--- NOTE | 2022-01-30 08:49 | NURSING ---
hgb 7.8, dr landin entered order for 2 units blood today. transfusion center aware and will administer today when blood ready. Nikia, daughter updated via phone.
[2022-01-30 09:14] VITALS: O2SAT 93
[2022-01-30] MEDS: Menthol/Lanolin/Calamine/Znox 113 GM Tube 1 APPLIC TOPICAL ×2 (09:37→18:21)
[2022-01-30] MEDS: oxyCODONE 5 MG Tablet 10 MG PO ×2 (10:02→18:25)
[2022-01-30] MEDS: Tuberculin,Purif.prot.deriv. 50 TU/ML Vial 0.1 ML ID (10:02)
[2022-01-30 13:33] LABS: Pathologist Review Reviewed
[2022-01-30 14:02] VITALS: BP 102/57; PULSE 70; RESP 17; TEMP 37.3; O2SAT 91
--- NOTE | 2022-01-30 15:14 | CASEMGMT ---
Social Work Met with patient for initial assessment. Explained [employer] insurance with [employer] 02/02 and continued stay is not guaranteed with each review. Pt is on chronic O2. Lives at home with her son, who does not work and is on disability, and his GF that works armoured corps officer; dtr lives locally. Pt having disorganized thoughts, difficuty staying focused on assessment questions and stated I'm not sure what I'm saying. SW ended visit. ST to eval. Will continue to follow. Samantha Mojica, DIRECTOR OF HEMOPHILIA ENTRY SPECIALIST
--- NOTE | 2022-01-30 16:12 | NURSING ---
INCREASED EDEMA RT LE, PAINFUL TO MOVE. DR MOFFETT UPDATED, NEW ORDER DOPPLER, NURSE PARALEGAL CALLED AND IF NEEDS DONE STAT THEN PT WILL NEED TO GO TO ER OR WAIT UNTIL WEDNESDAY. WILL UPDATE DR MOFFETT.
[2022-01-30] MEDS: Fluticasone/Salmeterol 232-14 Inhaler 1 PUFF INHALATION (18:21)
[2022-01-30] MEDS: MELATONIN 10 MG TABLET 5 MG PO (21:08)
[2022-01-30 22:00] VITALS: PULSE 81; RESP 14
[2022-01-31] MEDS: Loratadine 10 MG Tablet PO (05:04)
[2022-01-31] MEDS: Tolterodine Tartrate 4 MG CAP.SA PO (05:04)
[2022-01-31] MEDS: Losartan Potassium 100 MG Tablet PO (05:04)
[2022-01-31] MEDS: Clopidogrel Bisulfate 75 MG Tablet PO (05:05)
[2022-01-31] MEDS: Isosorbide Mononitrate 60 MG Tablet PO ×2 (05:05→18:51)
[2022-01-31] MEDS: Pantoprazole Sodium 20 MG Tablet PO (05:05)
[2022-01-31] MEDS: Furosemide 80 MG Tablet PO (05:05)
[2022-01-31] MEDS: Atorvastatin Calcium 10 MG Tablet PO (05:05)
[2022-01-31] MEDS: Fluticasone/Salmeterol 232-14 Inhaler 1 PUFF INHALATION ×2 (05:05→18:51)
[2022-01-31] MEDS: amLODIPine 2.5 MG Tablet PO (05:05)
[2022-01-31] MEDS: Potassium Chloride Oral Tablet 20 MEQ PO ×2 (05:05→18:51)
[2022-01-31] MEDS: oxyCODONE 5 MG Tablet 10 MG PO (05:06)
[2022-01-31] MEDS: Cholecalciferol (VIT D3) 25 MCG TABLET (1,000 UNITS) PO (05:06)
[2022-01-31] MEDS: Senna/Docusate Sodium 1 Tablet 2 TABLET PO ×2 (05:06→18:51)
[2022-01-31] MEDS: Atenolol 50 MG Tablet PO (05:06)
[2022-01-31] MEDS: Acetaminophen 500 MG Tablet 1000 MG PO ×2 (05:06→20:09)
[2022-01-31] MEDS: Menthol/Lanolin/Calamine/Znox 113 GM Tube 1 APPLIC TOPICAL ×2 (05:08→18:52)
[2022-01-31 05:14] VITALS: BP 135/66; PULSE 80
[2022-01-31] MEDS: Aspirin E.C. 81 MG Tablet PO (08:13)
[2022-01-31 18:55] VITALS: BP 131/53; PULSE 77; RESP 18; TEMP 36.4; O2SAT 96
[2022-01-31 22:03] VITALS: PULSE 81; RESP 16; O2SAT 95
[2022-02-01] MEDS: oxyCODONE 5 MG Tablet 10 MG PO (01:58)
[2022-02-01] MEDS: Atorvastatin Calcium 10 MG Tablet PO (05:21)
[2022-02-01] MEDS: Acetaminophen 500 MG Tablet 1000 MG PO ×3 (05:21→21:34)
[2022-02-01] MEDS: Senna/Docusate Sodium 1 Tablet 2 TABLET PO ×2 (05:21→17:36)
[2022-02-01] MEDS: Potassium Chloride Oral Tablet 20 MEQ PO ×2 (05:21→17:36)
[2022-02-01] MEDS: Isosorbide Mononitrate 60 MG Tablet PO ×2 (05:22→17:36)
[2022-02-01] MEDS: Atenolol 50 MG Tablet PO (05:22)
[2022-02-01] MEDS: Menthol/Lanolin/Calamine/Znox 113 GM Tube 1 APPLIC TOPICAL ×2 (05:22→17:35)
[2022-02-01] MEDS: amLODIPine 2.5 MG Tablet PO (05:22)
[2022-02-01] MEDS: Loratadine 10 MG Tablet PO (05:22)
[2022-02-01] MEDS: Clopidogrel Bisulfate 75 MG Tablet PO (05:22)
[2022-02-01] MEDS: Pantoprazole Sodium 20 MG Tablet PO (05:22)
[2022-02-01] MEDS: Tolterodine Tartrate 4 MG CAP.SA PO (05:22)
[2022-02-01] MEDS: Losartan Potassium 100 MG Tablet PO (05:22)
[2022-02-01] MEDS: Cholecalciferol (VIT D3) 25 MCG TABLET (1,000 UNITS) PO (05:22)
[2022-02-01] MEDS: Furosemide 80 MG Tablet PO (05:22)
[2022-02-01] MEDS: Fluticasone/Salmeterol 232-14 Inhaler 1 PUFF INHALATION ×2 (05:23→17:34)
[2022-02-01] MEDS: Aspirin E.C. 81 MG Tablet PO (08:09)
[2022-02-01 10:00] VITALS: PULSE 76; RESP 16; O2SAT 96
[2022-02-01 13:11] LABS: Hematocrit 31.6 % (37-47); Hemoglobin 10.5 g/dL (12.0-15.0)
[2022-02-01 14:06] LABS: Bedside Glucose 126 mg/dL (74-106)
[2022-02-01 14:13] VITALS: O2SAT 95
[2022-02-01 15:40] VITALS: BP 127/62; PULSE 80; RESP 16; TEMP 36.9; O2SAT 92
[2022-02-01] MEDS: 0.9% Saline Lock 10 ML Syringe IV (17:44)
--- NOTE | 2022-02-01 23:07 | NURSING ---
At change of shift, patient pulled out IV. Cath tip appears intact.
[2022-02-02] MEDS: Tolterodine Tartrate 4 MG CAP.SA PO (05:13)
[2022-02-02] MEDS: Potassium Chloride Oral Tablet 20 MEQ PO ×2 (05:13→17:13)
[2022-02-02] MEDS: Furosemide 80 MG Tablet PO (05:13)
[2022-02-02] MEDS: Isosorbide Mononitrate 60 MG Tablet PO ×2 (05:13→17:16)
[2022-02-02] MEDS: amLODIPine 2.5 MG Tablet PO (05:13)
[2022-02-02] MEDS: Loratadine 10 MG Tablet PO (05:13)
[2022-02-02] MEDS: Pantoprazole Sodium 20 MG Tablet PO (05:13)
[2022-02-02] MEDS: Cholecalciferol (VIT D3) 25 MCG TABLET (1,000 UNITS) PO (05:13)
[2022-02-02] MEDS: Atorvastatin Calcium 10 MG Tablet PO (05:13)
[2022-02-02] MEDS: Losartan Potassium 100 MG Tablet PO (05:13)
[2022-02-02] MEDS: Senna/Docusate Sodium 1 Tablet 2 TABLET PO ×2 (05:13→17:14)
[2022-02-02] MEDS: Fluticasone/Salmeterol 232-14 Inhaler 1 PUFF INHALATION ×2 (05:13→17:13)
[2022-02-02] MEDS: Clopidogrel Bisulfate 75 MG Tablet PO (05:13)
[2022-02-02] MEDS: Menthol/Lanolin/Calamine/Znox 113 GM Tube 1 APPLIC TOPICAL ×2 (05:14→17:13)
[2022-02-02] MEDS: Acetaminophen 500 MG Tablet 1000 MG PO ×3 (05:14→20:50)
[2022-02-02] MEDS: Atenolol 50 MG Tablet PO (05:15)
[2022-02-02] MEDS: Aspirin E.C. 81 MG Tablet PO (08:38)
[2022-02-02 10:00] VITALS: PULSE 73; RESP 18; O2SAT 93
--- NOTE | 2022-02-02 13:21 | PHA.CONS1_ITS ---
Progress Note - Pharmacy Subjective: TCU ADMISSION Objective: Allergies adhesive Allergy (Verified 12/01/21 11:19) Rash adhesive tape amitriptyline Allergy (Verified 12/01/21 11:19) CONFUSION codeine Allergy (Verified 12/01/21 11:19) Hives hydrocodone bitartrate [From Vicodin] Allergy (Verified 12/01/21 11:19) Hives Iodinated Contrast Media [Iodinated Contrast Media - IV Dye] Allergy (Verified 12/01/21 11:19) Hives OK WITH PRE-MEDICATION naproxen Allergy (Verified 12/01/21 11:19) Unknown Penicillins Allergy (Verified 01/25/22 13:11) Rash 01/2022: CAN TOLERATE CEPHALOSPORINS phenytoin sodium [From Dilantin] Allergy (Verified 12/01/21 11:19) Hives phenytoin sodium extended [From Dilantin] Allergy (Verified 12/01/21 11:19) Hives silicone Allergy (Verified 12/01/21 11:19) Hives Current Medications Generic Name Dose Route Start Last Admin Trade Name Freq PRN Reason Stop Dose Admin Acetaminophen 1,000 mg 01/29/22 22:00 02/02/22 05:14 Acetaminophen 500 Mg Tablet PO 1,000 mg Q8 JENNIFER Administration Albuterol Sulfate 1 - 2 puff 01/29/22 14:21 Albuterol Sulfate 8 Gm Inhaler (60 Puffs) INHALATION Q4H PRN PRN Wheezing Amlodipine Besylate 2.5 mg 01/30/22 06:00 02/02/22 05:13 Amlodipine 2.5 Mg Tablet PO 2.5 mg DAILY JENNIFER Administration Aspirin 81 mg 01/30/22 08:00 02/02/22 08:38 Aspirin E.C. 81 Mg Tablet PO 81 mg BREAKFAST JENNIFER Administration Atenolol 50 mg 01/30/22 06:00 02/02/22 05:15 Atenolol 50 Mg Tablet PO 50 mg DAILY JENNIFER Administration Atorvastatin Calcium 10 mg 01/30/22 06:00 02/02/22 05:13 Atorvastatin Calcium 10 Mg Tablet PO 10 mg DAILY JENNIFER Administration Bisacodyl 10 mg 01/29/22 14:34 Bisacodyl 5 Mg Tablet PO X1 PRN Constipation Calamine/Phenol 1 applic 01/30/22 06:00 02/02/22 05:14 Menthol/Lanolin/Calamine/Znox 113 Gm Tube TOPICAL 1 applic BID JENNIFER Administration Protocol Cholecalciferol 25 mcg 01/30/22 06:00 02/02/22 05:13 Cholecalciferol (Vit D3) 25 Mcg Tablet (1,000 Units) PO 25 mcg DAILY JENNIFER Administration Clopidogrel Bisulfate 75 mg 01/30/22 06:00 02/02/22 05:13 Clopidogrel Bisulfate 75 Mg Tablet PO 75 mg DAILY JENNIFER Administration Furosemide 80 mg 01/30/22 06:00 02/02/22 05:13 Furosemide 80 Mg Tablet PO 80 mg DAILY JENNIFER Administration Guaifenesin 5 ml 01/29/22 14:21 Guaifenesin Dm 10 Ml Udc PO Q6H PRN PRN COUGH Isosorbide Mononitrate 60 mg 01/29/22 18:00 02/02/22 05:13 Isosorbide Mononitrate 60 Mg Tablet PO 60 mg BID JENNIFER Administration Loratadine 10 mg 01/30/22 06:00 02/02/22 05:13 Loratadine 10 Mg Tablet PO 10 mg DAILY JENNIFER Administration Losartan Potassium 100 mg 01/30/22 06:00 02/02/22 05:13 Losartan Potassium 100 Mg Tablet PO 100 mg DAILY JENNIFER Administration Meclizine HCl 25 mg 01/29/22 14:21 Meclizine Hcl 25 Mg Tablet PO TID PRN dizziness Melatonin 5 mg 01/29/22 15:25 01/30/22 21:08 Melatonin 10 Mg Tablet PO 5 mg QHS PRN Administration SLEEP Nitroglycerin 0.4 mg 01/29/22 15:27 Nitroglycerin (Inpatient Use) 0.4 Mg Tab.Subl SL Q5M PRN CARDIAC/CHEST PAIN Nystatin 1 applic 02/02/22 06:00 02/02/22 08:37 Nystatin Powder 30 Gm Bottle TOPICAL 1 applic BID JENNIFER Administration Oxycodone HCl 10 mg 01/29/22 14:21 02/01/22 01:58 Oxycodone 5 Mg Tablet PO 10 mg Q6H PRN PRN Administration Pain Score 6-10 Pantoprazole Sodium 20 mg 01/30/22 06:00 02/02/22 05:13 Pantoprazole Sodium 20 Mg Tablet PO 20 mg DAILY JENNIFER Administration Potassium Chloride 20 meq 01/29/22 18:00 02/02/22 05:13 Potassium Chloride Oral Tablet 20 Meq PO 20 meq BID JENNIFER Administration Fluticasone/Salmeterol 1 puff 01/30/22 18:00 02/02/22 05:13 Fluticasone/Salmeterol 232-14 Inhaler INHALATION 1 puff Q12 JENNIFER Administration Senna/Docusate Sodium 2 tablet 01/29/22 18:00 02/02/22 05:13 Senna/Docusate Sodium 1 Tablet PO 2 tablet BID JENNIFER Administration Sodium Chloride 10 - 40 ml 01/29/22 15:45 02/01/22 17:44 0.9% Saline Lock 10 Ml Syringe IV 10 ml UD PRN Administration SALINE FLUSH Tolterodine Tartrate 4 mg 01/30/22 06:00 02/02/22 05:13 Tolterodine Tartrate 4 Mg Cap.Sa PO 4 mg DAILY JENNIFER Administration Tuberculin PPD 0.1 ml 02/06/22 10:00 Tuberculin,Purif.Prot.Deriv. 50 Tu/Ml Vial ID 02/06/22 10:01 X1 ONE Problem List (Last Reviewed 01/29/22 @ 20:[address] Tian Alexander MD) Chronic obstructive pulmonary disease (Chronic) Chronic systolic (congestive) heart failure (Chronic) Dizziness (Acute) Overactive bladder (Acute) Allergic rhinitis (Acute) Coronary artery disease (Acute) Vitamin D deficiency (Acute) Insomnia (Acute) Gastroesophageal reflux disease (Acute) Hyperlipidemia (Acute) Hypertension (Chronic) Intracranial hemorrhage (Acute) Stroke (Acute) Debility (Acute) Fall (Acute) Closed fracture of right hip (Acute) Vital Signs Temp Pulse Resp BP Pulse Ox 98.5 F 73 18 127/62 H 93 02/01/22 15:40 02/02/22 10:00 02/02/22 10:00 02/01/22 15:40 02/02/22 10:00 Oxygen Flow Rate (L/min) 2 Oxygen Delivery Method Room Air Weight: 84.55 kg Body Mass Index (BMI) 30.0 Sodium 141 mmol/L (136-145) 01/30/22 05:25 Potassium 3.9 mmol/L (3.5-5.1) 01/30/22 05:25 Chloride 110 mmol/L (98-107) H 01/30/22 05:25 Carbon Dioxide 27.0 mmol/L (21.0-32.0) 01/30/22 05:25 Anion Gap 4 (5-15) L 01/30/22 05:25 BUN 25 mg/dL (7-18) H 01/30/22 05:25 Creatinine 0.77 mg/dL (0.55-1.02) 01/30/22 05:25 Est GFR (MDRD) Af Amer 91 mL/min (>60) 01/30/22 05:25 Est GFR (MDRD) Non-Af 76 mL/min (>60) 01/30/22 05:25 BUN/Creatinine Ratio 32.3 RATIO (10-20) H 01/30/22 05:25 Glucose 106 mg/dL (74-106) 01/30/22 05:25 Assessment/Plan: 1. Pain: Tylenol 1000mg PO Q8h, Oxycodone 10mg PO Q6h PRN Pain 6-10. Please continue to monitor for S/S increased/decreased pain, PRN medication usage, signs/symptoms of oversedation. 2. HTN/CAD/HLD/CHF: Norvasc 2.5mg PO Daily, Aspirin 81mg PO Daily, Atenolol 50mg PO Daily, Lipitor 10mg PO daily, Plavix 75mg PO Daily, Furosemide 80mg PO Daily, Imdur 60mg PO daily, Losartan 100mg PO Daily, Nitrostat PRN. Please continue to monitor BP (last 127/62), Pulse (last 73), S/S bleeding/bruising, electrolytes, I/O fluid status, edema, lipid panel annually or sooner if clinically indicated. 3. COPD/ Cough: Airduo inhaler 1 puff INH Q12h, Proair inhaler 1-2 puff Q4h PRN, Robitussin DM 5mL PO Q6h PRN. Please continue to monitor respiratory status, HR, PRN medication usage, S/S COPD exacerbation/infection. 4. Allergic Rhinitis: Claritin 10mg PO Daily. Please continue to monitor for improvement in allergy symptoms. 5. OAB: Detrol LA 4mg PO daily. This is a Beer's Criteria medication and can increase COLLEGE SPORTS ASSISTANT effects in populations over the age of 65 with risk factors. Please evaluate use and consider switching medications if patient develops COLLEGE SPORTS ASSISTANT effects. Please continue to monitor for medication effectiveness, COLLEGE SPORTS ASSISTANT effects, and urinary symptoms. 6. Dizziness: Meclizine 25mg PO TID PRN. This is a Beer's Criteria and can cause increased anticholinergic effects in patients > 65 years old. To date; the patient has not needed any doses of medication, but continue to monitor for appropriate use/ side effects should the patient start to need medicated with this, thank you. 7. GERD: Protonix 20mg PO Daily. Please continue to monitor for GERD exacerbations. May also consider implementing non-pharmacologic therapies to help minimize GERD flare-ups. 8. Hypokalemia: KCl 20mEq PO BID. Please continue to monitor K levels (last 3.9 on 01/30). 9. Insomnia: Melatonin 5mg PO QHS PRN. Please continue to monitor for medication effectiveness, PRN medication usage. If medication appears ineffective, try administring medication at least 2 hours prior to desired bedtime to allow medication to take effect, thank you. 10. Vitamin D Deficiency: Cholecalciferol 25mcg PO daily. Please continue to monitor Vitamin D levels as clinically indicated, thank you. Psychotropic Medications: None Unnecessary Medications: None Bowel Regimen: Senna/Docusate 2 tab PO BID, Dulcolax 10mg PO x1 PRN. Please continue to monitor for increased/decreased constipation and/or diarrhea. Date of Note:: 02/02/22
[2022-02-02 14:57] VITALS: O2SAT 93
[2022-02-02 15:04] VITALS: BP 123/58; PULSE 79; RESP 15; TEMP 36.2; O2SAT 92
[2022-02-02 17:19] VITALS: BP 133/61; PULSE 71
[2022-02-03] MEDS: Potassium Chloride Oral Tablet 20 MEQ PO ×2 (04:37→16:47)
[2022-02-03] MEDS: Loratadine 10 MG Tablet PO (04:37)
[2022-02-03] MEDS: Losartan Potassium 100 MG Tablet PO (04:37)
[2022-02-03] MEDS: Acetaminophen 500 MG Tablet 1000 MG PO ×3 (04:37→21:35)
[2022-02-03] MEDS: Pantoprazole Sodium 20 MG Tablet PO (04:38)
[2022-02-03] MEDS: Clopidogrel Bisulfate 75 MG Tablet PO (04:38)
[2022-02-03] MEDS: Atorvastatin Calcium 10 MG Tablet PO (04:38)
[2022-02-03] MEDS: Senna/Docusate Sodium 1 Tablet 2 TABLET PO ×2 (04:38→16:47)
[2022-02-03] MEDS: Isosorbide Mononitrate 60 MG Tablet PO ×2 (04:38→16:47)
[2022-02-03] MEDS: Tolterodine Tartrate 4 MG CAP.SA PO (04:38)
[2022-02-03] MEDS: Atenolol 50 MG Tablet PO (04:38)
[2022-02-03] MEDS: Furosemide 80 MG Tablet PO (04:38)
[2022-02-03] MEDS: amLODIPine 2.5 MG Tablet PO (04:38)
[2022-02-03] MEDS: Cholecalciferol (VIT D3) 25 MCG TABLET (1,000 UNITS) PO (04:39)
[2022-02-03] MEDS: Fluticasone/Salmeterol 232-14 Inhaler 1 PUFF INHALATION ×2 (04:39→16:46)
[2022-02-03] MEDS: Menthol/Lanolin/Calamine/Znox 113 GM Tube 1 APPLIC TOPICAL ×2 (04:40→16:47)
[2022-02-03] MEDS: oxyCODONE 5 MG Tablet 10 MG PO ×2 (05:47→20:12)
--- NOTE | 2022-02-03 05:59 | NURSING ---
Patient c/o pain to right hip, after receiving routine Tylenol. PRN Oxycodone administered, with patient stating pain is 10/10. Will continue to monitor.
[2022-02-03] MEDS: Aspirin E.C. 81 MG Tablet PO (08:28)
[2022-02-03 11:40] VITALS: O2SAT 96
[2022-02-03] MEDS: Meclizine HCl 25 MG Tablet PO (12:23)
--- NOTE | 2022-02-03 12:25 | NURSING ---
Addendum entered by Janelle Thompson 02/03/22 17:35: DIZZINESS RESOLVED AT THIS TIME. Original Note: R' C/O MILD DIZZINESS. MECLIZINE GIVEN AT THIS TIME. SHE STATES SHE HAS DIZZY SPELLS OFTEN AND IS NOT NEW. WILL MONITOR.
[2022-02-03 15:17] VITALS: BP 126/65; PULSE 77; RESP 15; TEMP 36.3; O2SAT 92
[2022-02-03 20:15] VITALS: PULSE 64; RESP 16; O2SAT 97
[2022-02-04] MEDS: Menthol/Lanolin/Calamine/Znox 113 GM Tube 1 APPLIC TOPICAL ×2 (04:51→13:12)
[2022-02-04] MEDS: Senna/Docusate Sodium 1 Tablet 2 TABLET PO ×2 (04:52→17:28)
[2022-02-04] MEDS: Tolterodine Tartrate 4 MG CAP.SA PO (04:52)
[2022-02-04] MEDS: Pantoprazole Sodium 20 MG Tablet PO (04:52)
[2022-02-04] MEDS: Acetaminophen 500 MG Tablet 1000 MG PO ×3 (04:52→22:02)
[2022-02-04] MEDS: Losartan Potassium 100 MG Tablet PO (04:52)
[2022-02-04] MEDS: Loratadine 10 MG Tablet PO (04:52)
[2022-02-04] MEDS: Isosorbide Mononitrate 60 MG Tablet PO ×2 (04:52→17:28)
[2022-02-04] MEDS: amLODIPine 2.5 MG Tablet PO (04:52)
[2022-02-04] MEDS: Cholecalciferol (VIT D3) 25 MCG TABLET (1,000 UNITS) PO (04:53)
[2022-02-04] MEDS: Furosemide 80 MG Tablet PO (04:53)
[2022-02-04] MEDS: Clopidogrel Bisulfate 75 MG Tablet PO (04:53)
[2022-02-04] MEDS: Atorvastatin Calcium 10 MG Tablet PO (04:53)
[2022-02-04] MEDS: Atenolol 50 MG Tablet PO (04:54)
[2022-02-04] MEDS: Potassium Chloride Oral Tablet 20 MEQ PO ×2 (04:54→17:28)
[2022-02-04] MEDS: Fluticasone/Salmeterol 232-14 Inhaler 1 PUFF INHALATION ×2 (04:55→17:27)
[2022-02-04 05:11] VITALS: BP 116/61; PULSE 66; RESP 16
[2022-02-04] MEDS: Aspirin E.C. 81 MG Tablet PO (08:33)
[2022-02-04] MEDS: oxyCODONE 5 MG Tablet 10 MG PO ×2 (09:38→17:32)
[2022-02-04 11:12] VITALS: O2SAT 94
[2022-02-04 13:48] VITALS: BP 111/54; PULSE 74; RESP 16; TEMP 36.4; O2SAT 97
--- NOTE | 2022-02-04 15:30 | CASEMGMT ---
Discharge Cupola Melting Supervisor Called Tomeka at [facility] for possible referral and left a VM. Called Marly at [facility] and left a VM. Faxed referral to both facilities. Will follow up. Misty Choe Discharge Cupola Melting Supervisor
--- NOTE | 2022-02-04 15:47 | CASEMGMT ---
Social Work IDT met with patient son, son's GF, and caregiver for care plan meeting. Discussed patient's progress in PT/OT/ST and nursing. Explained [employer] insurance with NRD 02/05 with [employer] 02/08; continued stay is not guaranteed but can be extended. IDT expressed concern with pt DCing home as she is a x2 assist or zoila lift and max-dependent for ADLs. Inquired to caregiver her hours - M-F 10:30 - 4 pm. Son is home to assist / and GF is home in the evenings. However, pt will need to be at least minx1 to return home safely. Inquired about alternative DC plan. Son stated she will have to go to a SNF. Pt does have [employer] secondary that could pay for SNF. Provided SNF list with Medicare data. Family requesting referrals to [facility], [facility] and [facility]. SW relayed to DC Director Of Purchasing to refer/inquire about being in-network. SW to continue to follow for DC planning. Samantha Mojica, HARRY SENIOR ACCOUNT CLERK
[2022-02-04] MEDS: MELATONIN 10 MG TABLET 5 MG PO (22:01)
--- NOTE | 2022-02-05 00:30 | NURSING ---
Check and change at this time x2 EA. Debit card observed in bed sheets. Offered to lock debit card in lock box, Pt. states I was keeping it so my grandson doesn't ask me for money. No visitors present at this time. Alert to self per usual. Second RN present, debit card locked in patient room lock box for safe keeping per pt. preference. Denies further requests. Call light in reach.
[2022-02-05] MEDS: oxyCODONE 5 MG Tablet 10 MG PO ×2 (03:32→15:07)
[2022-02-05] MEDS: Fluticasone/Salmeterol 232-14 Inhaler 1 PUFF INHALATION ×2 (04:43→17:16)
[2022-02-05] MEDS: Acetaminophen 500 MG Tablet 1000 MG PO ×3 (04:45→22:56)
[2022-02-05] MEDS: Clopidogrel Bisulfate 75 MG Tablet PO (04:46)
[2022-02-05] MEDS: Atenolol 50 MG Tablet PO (04:46)
[2022-02-05] MEDS: Senna/Docusate Sodium 1 Tablet 2 TABLET PO ×2 (04:46→17:17)
[2022-02-05] MEDS: Tolterodine Tartrate 4 MG CAP.SA PO (04:46)
[2022-02-05] MEDS: Isosorbide Mononitrate 60 MG Tablet PO ×2 (04:46→17:17)
[2022-02-05] MEDS: Loratadine 10 MG Tablet PO (04:46)
[2022-02-05] MEDS: Pantoprazole Sodium 20 MG Tablet PO (04:46)
[2022-02-05] MEDS: Cholecalciferol (VIT D3) 25 MCG TABLET (1,000 UNITS) PO (04:46)
[2022-02-05] MEDS: Atorvastatin Calcium 10 MG Tablet PO (04:47)
[2022-02-05] MEDS: Furosemide 80 MG Tablet PO (04:47)
[2022-02-05] MEDS: Potassium Chloride Oral Tablet 20 MEQ PO ×2 (04:48→17:17)
[2022-02-05] MEDS: Menthol/Lanolin/Calamine/Znox 113 GM Tube 1 APPLIC TOPICAL (04:49)
[2022-02-05 05:01] VITALS: BP 105/50; PULSE 66; RESP 16
[2022-02-05 08:02] VITALS: O2SAT 97
[2022-02-05 08:07] VITALS: BP 95/52; PULSE 63
[2022-02-05] MEDS: Aspirin E.C. 81 MG Tablet PO (08:08)
--- NOTE | 2022-02-05 11:18 | NURSING ---
Spoke with Dr. Byrd's office, received order to have xrays completed of hip in TCU.
--- NOTE | 2022-02-05 11:35 | NURSING ---
[facility] and spoke [facility], informed them that we will not need a cot for the transfer on Wednesday, and will only need a WC.
--- NOTE | 2022-02-05 11:43 | CASEMGMT ---
Discharge Foundry Melt Supervisor Tomeka from [facility] reached out and they can accept the patient when she is ready. VICKY Singh notified. Misty Choe Discharge Planning Assistmatthieu romo
--- NOTE | 2022-02-05 12:23 | CASEMGMT ---
Discharge Molding Utility Worker Called Marly at [facility]. They can Accept patient. Will notify VICKY Singh. Misty Choe Discharge Molding Utility Worker
--- NOTE | 2022-02-05 13:05 | RAD_ITS ---
INDICATION: Hip fracture EXAMINATION/TECHNIQUE: X-RAY - RIGHT XR Hip Unilateral with Pelvis when performed; 2-3 Views 3 VIEWS COMPARISON: Right hip radiograph from 01/24/2022 FINDINGS/ RAD/HIP, UNI W/ Pelvis 2-3 Views IMPRESSION: Interval placement of right sided intramedullary edilberto and gamma nail transfixing the previously seen right femur intertrochanteric fracture.. Stable left femur intramedullary edilberto and gamma nail. Intact appearance of the surgical hardware. Femoral heads are well-seated within the acetabulum. Degenerative changes of the pubic symphysis. Mild bilateral sacroiliac degenerative changes. Bowel gas somewhat obscures assessment of the sacrum. Vascular calcifications. Soft tissues are unremarkable with no radiopaque foreign bodies. Electronically Signed: Bharathi Shepherd, at 13:56 EDT ,
[2022-02-05 15:26] VITALS: BP 137/63; PULSE 77; RESP 18; TEMP 36.3; O2SAT 91
[2022-02-06] MEDS: Tolterodine Tartrate 4 MG CAP.SA PO (04:42)
[2022-02-06] MEDS: Acetaminophen 500 MG Tablet 1000 MG PO ×3 (04:42→20:50)
[2022-02-06] MEDS: Senna/Docusate Sodium 1 Tablet 2 TABLET PO ×2 (04:43→17:06)
[2022-02-06] MEDS: Cholecalciferol (VIT D3) 25 MCG TABLET (1,000 UNITS) PO (04:43)
[2022-02-06] MEDS: Potassium Chloride Oral Tablet 20 MEQ PO ×2 (04:44→17:05)
[2022-02-06] MEDS: Loratadine 10 MG Tablet PO (04:44)
[2022-02-06] MEDS: Furosemide 80 MG Tablet PO (04:44)
[2022-02-06] MEDS: Clopidogrel Bisulfate 75 MG Tablet PO (04:44)
[2022-02-06] MEDS: Pantoprazole Sodium 20 MG Tablet PO (04:44)
[2022-02-06] MEDS: Atorvastatin Calcium 10 MG Tablet PO (04:44)
[2022-02-06] MEDS: Atenolol 50 MG Tablet PO (04:45)
[2022-02-06] MEDS: Isosorbide Mononitrate 60 MG Tablet PO ×2 (04:45→17:05)
[2022-02-06] MEDS: Menthol/Lanolin/Calamine/Znox 113 GM Tube 1 APPLIC TOPICAL ×2 (04:45→17:04)
[2022-02-06] MEDS: Fluticasone/Salmeterol 232-14 Inhaler 1 PUFF INHALATION ×2 (04:51→17:05)
[2022-02-06 05:24] LABS: Absolute Lymphocyte Count 3.71 X10^3/uL (0.83-4.51); Absolute Neutrophil Count 5.1 X10^3/uL (2.0-7.7); Basophil# 0.13 X10^3/uL; Basophil% 0.9 % (0-1); Eosinophils% 33.2 % (0-5); Hematocrit 29.9 % (37-47); Hemoglobin 9.8 g/dL (12.0-15.0); Lymphocyte # 3.71 X10^3/ul (0.83-4.51); Lymphocyte % 24.9 % (19-41); Mean Corp Hgb Conc 32.8 g/dL (32-36); Mean Corpuscular Hgb 29.7 pg (27.0-32.0); Mean Corpuscular Volume 90.6 fL (81-99); Mean Platelet Vol. 9.1 fl (6.2-12.0); Monocyte% 6.1 % (0-10); NRBC Flagged by Analyzer 0 % (0-5); Neutrophil # 5.06 X10^3/uL (2.7-7.7); POSITIVE DIFFERENTIAL YES; Platelet Count 382 K/mm3 (150-450); RBC Distribution Width CV 14.7 % (11.6-14.6); White Blood Count 14.9 K/mm3 (4.4-11.0)
[2022-02-06 05:39] LABS: Eosinophil# 4.94 X10^3/uL
[2022-02-06 05:43] LABS: Differential Comment SCANNED; Differential Indicated SCAN CRITERIA MET
[2022-02-06 06:10] LABS: Anion Gap 3 (5-15); BUN 34 mg/dL (7-18); BUN/Creat Ratio 38.9 RATIO (10-20); Calcium,Total 8.8 mg/dL (8.5-10.1); Chloride 104 mmol/L (98-107); Creatinine, Serum 0.88 mg/dL (0.55-1.02); EST Glomerular Filtration Rate 65 mL/min (>60); Est Glom Filt Rate - Afr Amer 79 mL/min (>60); Estimated Creatinine Clearance 44.55 ml/min; Glucose 103 mg/dL (74-106); Potassium 4.1 mmol/L (3.5-5.1); Sodium Level 135 mmol/L (136-145)
--- NOTE | 2022-02-06 07:48 | RAD_ITS ---
STUDY: X-RAY - ABDOMEN/PELVIS REASON FOR EXAM: Female, 86 years old. Constipation. TECHNIQUE: Single AP view of the abdomen / pelvis. COMPARISON: None. FINDINGS: Atherosclerosis noted. No dilated loops of small bowel. There is no demonstrated free abdominal air. The visualized liver, spleen and kidneys are grossly normal in size and morphology. Normal soft tissue structures. Medullary rods and femoral neck screws of the bilateral proximal femurs with unhealed fracture of the proximal right IT femur. RAD/Abdomen Single View IMPRESSION: Nonobstructive bowel gas pattern. Electronically Signed: Juan Holguin MD ([facility]) at 12:45 EDT Reading Location ID and State: [place] , Service support ,
--- NOTE | 2022-02-06 07:48 | RAD_ITS ---
STUDY: X-RAY CHEST REASON FOR EXAM: Female, 86 years old. Leukocytosis TECHNIQUE: AP COMPARISON: 01/24/2022 FINDINGS: Right hemidiaphragm is elevated. There is no demonstrated pleural abnormality. Normal size heart. Normal mediastinum and [place]. Normal visualized pulmonary arteries. There is atherosclerotic calcification of the aortic arch with tortuosity. There is demineralization of the osseous structures. Normal visualized ribs, clavicles, and shoulders. There is no demonstrated abnormality of the visualized soft tissue structures of the upper abdomen. RAD/Chest PA and Lateral IMPRESSION: Stable, nonacute portable x-ray examination of the chest. Electronically Signed: Juan Holguin MD (Brooks) at 12:46 EDT ,
[2022-02-06 08:18] VITALS: BP 130/57; PULSE 68
[2022-02-06] MEDS: Aspirin E.C. 81 MG Tablet PO (09:38)
[2022-02-06] MEDS: amLODIPine 2.5 MG Tablet PO (09:38)
[2022-02-06] MEDS: Losartan Potassium 100 MG Tablet PO (09:39)
[2022-02-06 10:41] VITALS: O2SAT 94
[2022-02-06] MEDS: oxyCODONE 5 MG Tablet 10 MG PO ×2 (10:52→20:50)
[2022-02-06] MEDS: Bisacodyl 5 MG Tablet 10 MG PO (10:52)
[2022-02-06] MEDS: Tuberculin,Purif.prot.deriv. 50 TU/ML Vial 0.1 ML ID (10:54)
--- NOTE | 2022-02-06 15:06 | NURSING ---
R' JOSE AREA VERY RED/PAINFUL. DR MOFFETT NOTIFIED. N.OL FLUCANAZOLE.
[2022-02-06 15:29] LABS: Bacteria 0 SEEN /hpf (None Seen); Mucous, Urine 0 SEEN /hpf (<or=2+); Squamous Epithelial Cells - UA 0 SEEN /hpf (5-10); White Blood Cells 0 SEEN /hpf (0-5)
[2022-02-06 15:36] LABS: Color, Urine Yellow (Yellow); Glucose, Dipstick Normal (Normal); Ketone-Dipstick Negative (Negative); Leukocyte Esterase-Dipstick 25 /ul (Negative); Nitrite-Dipstick Negative (Negative); Occult Blood-Urine 150 /ul (Negative); Protein-Dipstick Negative (Negative); Specific Gravity, Urine 1.015 (1.002-1.030); Urine Bilirubin Dipstick Negative (Negative); Urine Clarity Clear (Clear); Urine Urobilinogen Normal (Normal)
[2022-02-06 15:45] LABS: Red Blood Cells-Urine 0-5 SEEN /hpf (0-5)
--- NOTE | 2022-02-06 15:53 | NURSING ---
ATTEMPTED TO STRAIGHT CATH TO OBTAIN UA C+S. UNSUCCESSFUL. OBTAINED URINE VIA CLEAN CATCH. BLADDER SCANNED D/T R' C/O RETENTION AND BLADDER FULLNESS. SCANNED FOR 550cc. NOTIFIED DR MOFFETT. N.O. FOR PRASAD. 16F PRASAD PLACED X3 ASSIST. OBTAINED 500cc CLEAR, YELLOW URINE. R' CURRENTLY RESTING IN BED. R' AWARE OF N.O. FLUCANAZOLE.
[2022-02-06 16:00] VITALS: BP 119/62; PULSE 68; RESP 16; TEMP 36.5; O2SAT 98
--- NOTE | 2022-02-06 16:00 | NURSING ---
DR MOFFETT OF KUB AND CXR RESULTS. NO N.O.
[2022-02-06] MEDS: FLUCONAZOLE 150 MG TABLET PO (17:04)
[2022-02-06] MEDS: MELATONIN 10 MG TABLET 5 MG PO (20:49)
[2022-02-07] MEDS: Fluticasone/Salmeterol 232-14 Inhaler 1 PUFF INHALATION ×2 (05:36→16:58)
[2022-02-07] MEDS: Menthol/Lanolin/Calamine/Znox 113 GM Tube 1 APPLIC TOPICAL ×2 (05:36→16:58)
[2022-02-07] MEDS: Senna/Docusate Sodium 1 Tablet 2 TABLET PO ×2 (05:37→16:58)
[2022-02-07] MEDS: Atenolol 50 MG Tablet PO (05:37)
[2022-02-07] MEDS: Clopidogrel Bisulfate 75 MG Tablet PO (05:37)
[2022-02-07] MEDS: Cholecalciferol (VIT D3) 25 MCG TABLET (1,000 UNITS) PO (05:37)
[2022-02-07] MEDS: Atorvastatin Calcium 10 MG Tablet PO (05:37)
[2022-02-07] MEDS: Isosorbide Mononitrate 60 MG Tablet PO ×2 (05:37→16:58)
[2022-02-07] MEDS: Pantoprazole Sodium 20 MG Tablet PO (05:37)
[2022-02-07] MEDS: Acetaminophen 500 MG Tablet 1000 MG PO ×3 (05:38→21:45)
[2022-02-07] MEDS: Furosemide 80 MG Tablet PO (05:38)
[2022-02-07] MEDS: Loratadine 10 MG Tablet PO (05:38)
[2022-02-07] MEDS: Tolterodine Tartrate 4 MG CAP.SA PO (05:38)
[2022-02-07 05:42] VITALS: BP 105/62; PULSE 65
[2022-02-07] MEDS: amLODIPine 2.5 MG Tablet PO (09:11)
[2022-02-07] MEDS: Aspirin E.C. 81 MG Tablet PO (09:12)
[2022-02-07] MEDS: Potassium Chloride Oral Tablet 20 MEQ PO ×2 (09:12→16:58)
[2022-02-07] MEDS: Losartan Potassium 100 MG Tablet PO (09:12)
[2022-02-07 09:13] VITALS: BP 110/64; PULSE 69; RESP 18; TEMP 36.4; O2SAT 98
[2022-02-07] MEDS: oxyCODONE 5 MG Tablet 10 MG PO (09:17)
[2022-02-07 13:25] VITALS: O2SAT 98
--- NOTE | 2022-02-07 15:09 | NURSING ---
dr landin updated on urine culture, no new orders or treatment needed.
[2022-02-07] MEDS: Bisacodyl 5 MG Tablet 10 MG PO (16:51)
[2022-02-07 19:36] VITALS: PULSE 71; RESP 18; O2SAT 95
[2022-02-08] MEDS: Menthol/Lanolin/Calamine/Znox 113 GM Tube 1 APPLIC TOPICAL ×2 (04:54→17:08)
[2022-02-08] MEDS: Senna/Docusate Sodium 1 Tablet 2 TABLET PO (04:55)
[2022-02-08] MEDS: Atenolol 50 MG Tablet PO (04:55)
[2022-02-08] MEDS: Atorvastatin Calcium 10 MG Tablet PO (04:55)
[2022-02-08] MEDS: Tolterodine Tartrate 4 MG CAP.SA PO (04:56)
[2022-02-08] MEDS: Acetaminophen 500 MG Tablet 1000 MG PO ×3 (04:56→20:58)
[2022-02-08] MEDS: Clopidogrel Bisulfate 75 MG Tablet PO (04:56)
[2022-02-08] MEDS: Cholecalciferol (VIT D3) 25 MCG TABLET (1,000 UNITS) PO (04:56)
[2022-02-08] MEDS: Furosemide 80 MG Tablet PO (04:56)
[2022-02-08] MEDS: Loratadine 10 MG Tablet PO (04:56)
[2022-02-08] MEDS: Pantoprazole Sodium 20 MG Tablet PO (04:56)
[2022-02-08] MEDS: Isosorbide Mononitrate 60 MG Tablet PO ×2 (04:56→17:09)
[2022-02-08] MEDS: Fluticasone/Salmeterol 232-14 Inhaler 1 PUFF INHALATION ×2 (04:57→17:09)
[2022-02-08 05:04] VITALS: BP 121/59; PULSE 66
[2022-02-08] MEDS: Aspirin E.C. 81 MG Tablet PO (08:08)
[2022-02-08] MEDS: Potassium Chloride Oral Tablet 20 MEQ PO ×2 (08:08→17:08)
[2022-02-08] MEDS: Losartan Potassium 100 MG Tablet PO (08:08)
[2022-02-08] MEDS: amLODIPine 2.5 MG Tablet PO (08:08)
--- NOTE | 2022-02-08 14:34 | NURSING ---
son, Bill here and asked for pts debit card, stated locked up in med box in room. opened and given to son as requested & with permission from pt.
[2022-02-08 15:49] VITALS: BP 114/53; PULSE 71; RESP 21; TEMP 36.3; O2SAT 96
[2022-02-08] MEDS: oxyCODONE 5 MG Tablet 10 MG PO (20:59)
[2022-02-09] MEDS: oxyCODONE 5 MG Tablet 10 MG PO (03:14)
[2022-02-09] MEDS: Menthol/Lanolin/Calamine/Znox 113 GM Tube 1 APPLIC TOPICAL ×2 (04:51→16:25)
[2022-02-09] MEDS: Atenolol 50 MG Tablet PO (04:51)
[2022-02-09] MEDS: Acetaminophen 500 MG Tablet 1000 MG PO ×3 (04:52→20:06)
[2022-02-09] MEDS: Furosemide 80 MG Tablet PO (04:52)
[2022-02-09] MEDS: Atorvastatin Calcium 10 MG Tablet PO (04:52)
[2022-02-09] MEDS: Isosorbide Mononitrate 60 MG Tablet PO ×2 (04:52→17:13)
[2022-02-09] MEDS: Tolterodine Tartrate 4 MG CAP.SA PO (04:52)
[2022-02-09] MEDS: Fluticasone/Salmeterol 232-14 Inhaler 1 PUFF INHALATION ×2 (04:52→17:09)
[2022-02-09] MEDS: Senna/Docusate Sodium 1 Tablet 2 TABLET PO ×2 (04:52→17:12)
[2022-02-09] MEDS: Cholecalciferol (VIT D3) 25 MCG TABLET (1,000 UNITS) PO (04:52)
[2022-02-09] MEDS: Clopidogrel Bisulfate 75 MG Tablet PO (04:52)
[2022-02-09] MEDS: Pantoprazole Sodium 20 MG Tablet PO (04:52)
[2022-02-09] MEDS: Loratadine 10 MG Tablet PO (04:52)
[2022-02-09 05:00] VITALS: BP 111/58; PULSE 64; RESP 16
--- NOTE | 2022-02-09 07:48 | NURSING ---
[facility] called and stated that they will be sending a stretcher but will be billing for a W.C., spoke with Renée.
[2022-02-09] MEDS: Losartan Potassium 100 MG Tablet PO (08:03)
[2022-02-09] MEDS: Potassium Chloride Oral Tablet 20 MEQ PO ×2 (08:03→16:27)
[2022-02-09] MEDS: Aspirin E.C. 81 MG Tablet PO (08:03)
[2022-02-09] MEDS: amLODIPine 2.5 MG Tablet PO (08:03)
[2022-02-09 08:08] VITALS: BP 110/56; PULSE 58
--- NOTE | 2022-02-09 08:36 | NURSING ---
pt off unit to go to Dr. ricci via [facility].
[2022-02-09 10:10] VITALS: O2SAT 98
--- NOTE | 2022-02-09 10:18 | NURSING ---
pt returned from Dr. ricci, per Dr. Byrd, arlet removed, wounds benign, d/c stinson when able, encourage ambulation, PT/OT-WBAT RLE, F/U in 6 weeks.
[2022-02-09 14:31] LABS: Pathologist Review Reviewed
[2022-02-09 14:44] VITALS: BP 114/62; PULSE 68; RESP 13; TEMP 36.2; O2SAT 95
[2022-02-09] MEDS: FLUCONAZOLE 150 MG TABLET PO (16:23)
[2022-02-09 20:10] VITALS: PULSE 72; RESP 16; O2SAT 94
[2022-02-10] MEDS: Fluticasone/Salmeterol 232-14 Inhaler 1 PUFF INHALATION ×2 (04:39→17:15)
[2022-02-10] MEDS: Pantoprazole Sodium 20 MG Tablet PO (04:40)
[2022-02-10] MEDS: Senna/Docusate Sodium 1 Tablet 2 TABLET PO ×2 (04:40→17:15)
[2022-02-10] MEDS: Acetaminophen 500 MG Tablet 1000 MG PO ×3 (04:40→21:18)
[2022-02-10] MEDS: Cholecalciferol (VIT D3) 25 MCG TABLET (1,000 UNITS) PO (04:40)
[2022-02-10] MEDS: Atenolol 50 MG Tablet PO (04:40)
[2022-02-10] MEDS: Tolterodine Tartrate 4 MG CAP.SA PO (04:41)
[2022-02-10] MEDS: Isosorbide Mononitrate 60 MG Tablet PO ×2 (04:41→17:15)
[2022-02-10] MEDS: Clopidogrel Bisulfate 75 MG Tablet PO (04:41)
[2022-02-10] MEDS: Loratadine 10 MG Tablet PO (04:41)
[2022-02-10] MEDS: Furosemide 80 MG Tablet PO (04:41)
[2022-02-10] MEDS: Atorvastatin Calcium 10 MG Tablet PO (04:41)
[2022-02-10] MEDS: Menthol/Lanolin/Calamine/Znox 113 GM Tube 1 APPLIC TOPICAL ×2 (04:53→17:16)
[2022-02-10 06:03] VITALS: BP 131/56; PULSE 66; RESP 16
--- NOTE | 2022-02-10 06:52 | NURSING ---
Patient asking for bank card, which she said was in the pocket of her red dress. Unable to locate a red dress. She stated that her son may have taken it and that she did not want him to have it because he spends too much money. Patient is alert to self only. Will have next shift follow up.
[2022-02-10] MEDS: Potassium Chloride Oral Tablet 20 MEQ PO ×2 (08:17→17:15)
[2022-02-10] MEDS: Aspirin E.C. 81 MG Tablet PO (08:17)
[2022-02-10] MEDS: Losartan Potassium 100 MG Tablet PO (08:18)
[2022-02-10] MEDS: amLODIPine 2.5 MG Tablet PO (08:18)
[2022-02-10 08:21] VITALS: BP 117/75; PULSE 67
[2022-02-10 10:00] VITALS: PULSE 69; RESP 18; O2SAT 97
--- NOTE | 2022-02-10 12:25 | MDS.RN ---
Information for the mds was obtained from review of the clinical record, interview of resident, staff, and direct observation of resident's care.
[2022-02-10 14:09] VITALS: BP 117/60; PULSE 65; RESP 17; TEMP 36.2; O2SAT 97
[2022-02-10 14:25] VITALS: O2SAT 97
[2022-02-11] MEDS: Menthol/Lanolin/Calamine/Znox 113 GM Tube 1 APPLIC TOPICAL ×2 (05:15→21:58)
[2022-02-11] MEDS: Fluticasone/Salmeterol 232-14 Inhaler 1 PUFF INHALATION ×2 (05:15→18:17)
[2022-02-11] MEDS: Pantoprazole Sodium 20 MG Tablet PO (05:16)
[2022-02-11] MEDS: Atenolol 50 MG Tablet PO (05:16)
[2022-02-11] MEDS: Clopidogrel Bisulfate 75 MG Tablet PO (05:16)
[2022-02-11] MEDS: Atorvastatin Calcium 10 MG Tablet PO (05:16)
[2022-02-11] MEDS: Cholecalciferol (VIT D3) 25 MCG TABLET (1,000 UNITS) PO (05:16)
[2022-02-11] MEDS: Acetaminophen 500 MG Tablet 1000 MG PO ×3 (05:17→22:00)
[2022-02-11] MEDS: Loratadine 10 MG Tablet PO (05:17)
[2022-02-11] MEDS: Furosemide 80 MG Tablet PO (05:17)
[2022-02-11] MEDS: Isosorbide Mononitrate 60 MG Tablet PO ×2 (05:17→18:17)
[2022-02-11] MEDS: Tolterodine Tartrate 4 MG CAP.SA PO (05:17)
[2022-02-11 07:03] VITALS: O2SAT 96
[2022-02-11] MEDS: Aspirin E.C. 81 MG Tablet PO (08:28)
[2022-02-11] MEDS: amLODIPine 2.5 MG Tablet PO (08:28)
[2022-02-11] MEDS: Potassium Chloride Oral Tablet 20 MEQ PO ×2 (08:28→18:16)
[2022-02-11] MEDS: Losartan Potassium 100 MG Tablet PO (08:28)
[2022-02-11 08:31] VITALS: BP 116/59; PULSE 63
--- NOTE | 2022-02-11 14:08 | NURSING ---
Calls out and states she is having a BM. Incontinent of runny brown stool. Assisted to BSC and has more loose stool in commode. Clean attends put on and transferred back to chair. legs elevated at this time.
[2022-02-11 15:36] VITALS: BP 123/56; PULSE 69; RESP 18; TEMP 36.3; O2SAT 96
--- NOTE | 2022-02-11 18:21 | NURSING ---
Stinson catheter inserted on 02/[address] Alexander would like us to remove stinson catheter this Wednesday AM on February 16.
[2022-02-11 19:54] VITALS: PULSE 74; RESP 16; O2SAT 93
[2022-02-12] MEDS: Menthol/Lanolin/Calamine/Znox 113 GM Tube 1 APPLIC TOPICAL ×2 (05:37→13:08)
[2022-02-12] MEDS: Furosemide 80 MG Tablet PO (05:39)
[2022-02-12] MEDS: Senna/Docusate Sodium 1 Tablet 2 TABLET PO (05:39)
[2022-02-12] MEDS: Acetaminophen 500 MG Tablet 1000 MG PO ×3 (05:39→20:08)
[2022-02-12] MEDS: Isosorbide Mononitrate 60 MG Tablet PO ×2 (05:39→17:00)
[2022-02-12] MEDS: Fluticasone/Salmeterol 232-14 Inhaler 1 PUFF INHALATION ×2 (05:39→17:00)
[2022-02-12] MEDS: Atorvastatin Calcium 10 MG Tablet PO (05:39)
[2022-02-12] MEDS: Cholecalciferol (VIT D3) 25 MCG TABLET (1,000 UNITS) PO (05:40)
[2022-02-12] MEDS: Loratadine 10 MG Tablet PO (05:40)
[2022-02-12] MEDS: Clopidogrel Bisulfate 75 MG Tablet PO (05:40)
[2022-02-12] MEDS: Atenolol 50 MG Tablet PO (05:40)
[2022-02-12] MEDS: Pantoprazole Sodium 20 MG Tablet PO (05:40)
[2022-02-12] MEDS: Tolterodine Tartrate 4 MG CAP.SA PO (05:42)
[2022-02-12 05:57] VITALS: BP 111/58; PULSE 63
[2022-02-12] MEDS: Aspirin E.C. 81 MG Tablet PO (09:04)
[2022-02-12] MEDS: Potassium Chloride Oral Tablet 20 MEQ PO ×2 (09:04→17:00)
[2022-02-12] MEDS: Losartan Potassium 100 MG Tablet PO (09:04)
[2022-02-12] MEDS: amLODIPine 2.5 MG Tablet PO (09:04)
[2022-02-12 14:43] VITALS: BP 125/56; PULSE 63; RESP 17; TEMP 36.2; O2SAT 94
--- NOTE | 2022-02-12 16:24 | CASEMGMT ---
Social Work Spoke with son to update him insurance approved with NRD 02/16 and if SNF is needed, [facility] can accept. Son stated [facility] is [facility]. SW update facilities. Will continue to follow. Samantha Mojica, SIDE PANEL HANGER PRESCRIPTION BENEFIT SPECIALIST
[2022-02-12] MEDS: Tamsulosin HCl 0.4 MG Capsule PO (17:00)
[2022-02-12] MEDS: FLUCONAZOLE 150 MG TABLET PO (17:00)
[2022-02-13] MEDS: Menthol/Lanolin/Calamine/Znox 113 GM Tube 1 APPLIC TOPICAL ×2 (05:19→17:10)
[2022-02-13] MEDS: Atorvastatin Calcium 10 MG Tablet PO (05:20)
[2022-02-13] MEDS: Pantoprazole Sodium 20 MG Tablet PO (05:20)
[2022-02-13] MEDS: Atenolol 50 MG Tablet PO (05:20)
[2022-02-13] MEDS: Tolterodine Tartrate 4 MG CAP.SA PO (05:20)
[2022-02-13] MEDS: Furosemide 80 MG Tablet PO (05:20)
[2022-02-13] MEDS: Isosorbide Mononitrate 60 MG Tablet PO ×2 (05:20→17:10)
[2022-02-13] MEDS: Fluticasone/Salmeterol 232-14 Inhaler 1 PUFF INHALATION ×2 (05:20→17:10)
[2022-02-13] MEDS: Senna/Docusate Sodium 1 Tablet 2 TABLET PO ×2 (05:20→17:10)
[2022-02-13] MEDS: Loratadine 10 MG Tablet PO (05:20)
[2022-02-13] MEDS: Clopidogrel Bisulfate 75 MG Tablet PO (05:20)
[2022-02-13] MEDS: Cholecalciferol (VIT D3) 25 MCG TABLET (1,000 UNITS) PO (05:20)
[2022-02-13] MEDS: Acetaminophen 500 MG Tablet 1000 MG PO ×3 (05:21→22:40)
[2022-02-13 05:41] LABS: Hematocrit 30.1 % (37-47); Mean Corp Hgb Conc 33.2 g/dL (32-36); Mean Corpuscular Hgb 30.7 pg (27.0-32.0); Mean Corpuscular Volume 92.3 fL (81-99); Mean Platelet Vol. 9.3 fl (6.2-12.0); POSITIVE DIFFERENTIAL YES; Platelet Count 404 K/mm3 (150-450); RBC Distribution Width CV 14.7 % (11.6-14.6); RBC Distribution Width SD 49.8 fl (35.1-43.9); Red Blood Count 3.26 M/mm3 (4.2-5.4); White Blood Count 11.2 K/mm3 (4.4-11.0)
[2022-02-13 06:03] LABS: Differential Indicated MANUAL DIFF
[2022-02-13 06:07] LABS: Anion Gap 5 (5-15); BUN 30 mg/dL (7-18); BUN/Creat Ratio 31.7 RATIO (10-20); Calcium,Total 8.6 mg/dL (8.5-10.1); Chloride 108 mmol/L (98-107); Creatinine, Serum 0.95 mg/dL (0.55-1.02); EST Glomerular Filtration Rate 60 mL/min (>60); Est Glom Filt Rate - Afr Amer 72 mL/min (>60); Estimated Creatinine Clearance 41.27 ml/min; Glucose 110 mg/dL (74-106); Potassium 4.1 mmol/L (3.5-5.1); Sodium Level 139 mmol/L (136-145)
[2022-02-13 06:08] LABS: Absolute Lymphocyte Count 3.25 X10^3/uL (0.83-4.51); Basophil 2 % (0-1); Eosinophil 47 % (0-5); Lymphocyte 29 % (19-41); Monocyte 4 % (0-10); Neutrophil-Segmented 18 % (47-70); Platelet Estimate ADEQUATE (ADEQ); Red Cell Morphology NORM C+C NORMAL (NORM C&C); Total Cells Counted 100 (MANUAL DIFF)
[2022-02-13] MEDS: Aspirin E.C. 81 MG Tablet PO (07:53)
[2022-02-13] MEDS: Losartan Potassium 100 MG Tablet PO (07:53)
[2022-02-13] MEDS: Potassium Chloride Oral Tablet 20 MEQ PO ×2 (07:53→17:10)
[2022-02-13] MEDS: amLODIPine 2.5 MG Tablet PO (07:54)
[2022-02-13 07:55] VITALS: BP 109/55
[2022-02-13 08:08] VITALS: O2SAT 96
[2022-02-13] MEDS: traMADol 50 MG Tablet PO (10:27)
[2022-02-13 12:21] LABS: Pathologist Review Reviewed
[2022-02-13 13:09] VITALS: PULSE 53; RESP 16
[2022-02-13 15:48] VITALS: BP 109/59; PULSE 65; RESP 14; TEMP 36.2; O2SAT 95
[2022-02-13] MEDS: Tamsulosin HCl 0.4 MG Capsule PO (17:10)
[2022-02-13 19:31] VITALS: O2SAT 92
[2022-02-14] MEDS: Menthol/Lanolin/Calamine/Znox 113 GM Tube 1 APPLIC TOPICAL ×2 (05:38→17:59)
[2022-02-14] MEDS: Atorvastatin Calcium 10 MG Tablet PO (05:39)
[2022-02-14] MEDS: Tolterodine Tartrate 4 MG CAP.SA PO (05:39)
[2022-02-14] MEDS: Loratadine 10 MG Tablet PO (05:39)
[2022-02-14] MEDS: Atenolol 50 MG Tablet PO (05:39)
[2022-02-14] MEDS: Pantoprazole Sodium 20 MG Tablet PO (05:39)
[2022-02-14] MEDS: Furosemide 80 MG Tablet PO (05:39)
[2022-02-14] MEDS: Senna/Docusate Sodium 1 Tablet 2 TABLET PO ×2 (05:39→17:59)
[2022-02-14] MEDS: Clopidogrel Bisulfate 75 MG Tablet PO (05:39)
[2022-02-14] MEDS: Cholecalciferol (VIT D3) 25 MCG TABLET (1,000 UNITS) PO (05:39)
[2022-02-14 05:40] VITALS: BP 127/59; PULSE 70
[2022-02-14] MEDS: Isosorbide Mononitrate 60 MG Tablet PO ×2 (05:40→17:59)
[2022-02-14] MEDS: Acetaminophen 500 MG Tablet 1000 MG PO ×3 (05:40→20:21)
[2022-02-14] MEDS: Fluticasone/Salmeterol 232-14 Inhaler 1 PUFF INHALATION ×2 (05:40→17:59)
[2022-02-14] MEDS: Potassium Chloride Oral Tablet 20 MEQ PO ×2 (08:27→17:59)
[2022-02-14] MEDS: amLODIPine 2.5 MG Tablet PO (08:27)
[2022-02-14] MEDS: Aspirin E.C. 81 MG Tablet PO (08:27)
[2022-02-14] MEDS: Losartan Potassium 100 MG Tablet PO (08:27)
[2022-02-14] MEDS: traMADol 50 MG Tablet PO (10:46)
[2022-02-14 13:44] VITALS: O2SAT 96
[2022-02-14 16:00] VITALS: BP 109/59; PULSE 65; RESP 14; TEMP 36.7; O2SAT 95
[2022-02-14] MEDS: Tamsulosin HCl 0.4 MG Capsule PO (17:59)
[2022-02-14 20:26] VITALS: PULSE 66; RESP 18; O2SAT 96
[2022-02-15] MEDS: Tolterodine Tartrate 4 MG CAP.SA PO (05:21)
[2022-02-15] MEDS: Pantoprazole Sodium 20 MG Tablet PO (05:21)
[2022-02-15] MEDS: Loratadine 10 MG Tablet PO (05:21)
[2022-02-15] MEDS: Atorvastatin Calcium 10 MG Tablet PO (05:21)
[2022-02-15] MEDS: Furosemide 80 MG Tablet PO (05:21)
[2022-02-15] MEDS: Clopidogrel Bisulfate 75 MG Tablet PO (05:21)
[2022-02-15] MEDS: Senna/Docusate Sodium 1 Tablet 2 TABLET PO (05:22)
[2022-02-15] MEDS: Acetaminophen 500 MG Tablet 1000 MG PO ×3 (05:22→20:12)
[2022-02-15] MEDS: Isosorbide Mononitrate 60 MG Tablet PO ×2 (05:22→17:02)
[2022-02-15] MEDS: Cholecalciferol (VIT D3) 25 MCG TABLET (1,000 UNITS) PO (05:22)
[2022-02-15] MEDS: Atenolol 50 MG Tablet PO (05:22)
[2022-02-15] MEDS: Fluticasone/Salmeterol 232-14 Inhaler 1 PUFF INHALATION ×2 (05:23→17:06)
[2022-02-15] MEDS: Menthol/Lanolin/Calamine/Znox 113 GM Tube 1 APPLIC TOPICAL ×2 (05:30→17:06)
[2022-02-15 07:24] VITALS: O2SAT 95
[2022-02-15 08:10] VITALS: BP 124/69; PULSE 82; RESP 22; TEMP 36.4
[2022-02-15] MEDS: Aspirin E.C. 81 MG Tablet PO (08:11)
[2022-02-15] MEDS: amLODIPine 2.5 MG Tablet PO (08:12)
[2022-02-15] MEDS: Losartan Potassium 100 MG Tablet PO (08:12)
[2022-02-15] MEDS: Potassium Chloride Oral Tablet 20 MEQ PO ×2 (08:12→17:02)
[2022-02-15] MEDS: Albuterol Sulfate 8 gm Inhaler (60 puffs) INHALATION (08:26)
--- NOTE | 2022-02-15 08:30 | NURSING ---
Pt c/o of SOB and drowsiness. SpO2 checked pt 86%2 L NC. Increased oxygen to 4L NC and rechecked pt's SpO2 89% increased oxygen again to 4.5 L NC rechecked Spo2 93%. Dr. Alexander updated new order for Chest X-ray. Call light within reach will continue to monitor pt.
--- NOTE | 2022-02-15 09:51 | RAD_ITS ---
HISTORY: Increased SOB. TECHNIQUE: XR Chest 2 Views. # of images incl. paperwork: 3. COMPARISON: 02/06/2022. FINDINGS: CARDIOMEDIASTINAL STRUCTURES: Cardiac silhouette and mediastinal contour unchanged with the patient rotated. LUNGS: Minimal bibasilar scarring. PLEURA: Chronic right pleural effusion or pleural scarring. OSSEOUS STRUCTURES: Degenerative change. OTHER: Gaseous distention of bowel in the upper abdomen. RAD/Chest PA and Lateral IMPRESSION: No significant interval change. at 1335 Reported and signed by: Maryann Mejia MD Electronically Signed: Maryann Mejia MD at 13:34 EDT ,
[2022-02-15 13:00] VITALS: O2SAT 94
[2022-02-15] MEDS: levoFLOXacin 250 MG Tablet PO (13:08)
[2022-02-15] MEDS: MethylPREDNISolone DosePak 4 MG BOX PO ×3 (13:08→20:11)
[2022-02-15 15:37] VITALS: O2SAT 95
[2022-02-15 16:00] VITALS: BP 107/56; PULSE 72; RESP 18; TEMP 36.4; O2SAT 95
[2022-02-15] MEDS: Tamsulosin HCl 0.4 MG Capsule PO (17:02)
[2022-02-16 05:06] VITALS: BP 123/57; PULSE 69; RESP 18; TEMP 35.9; O2SAT 96
[2022-02-16] MEDS: Fluticasone/Salmeterol 232-14 Inhaler 1 PUFF INHALATION ×2 (05:08→16:27)
[2022-02-16] MEDS: Isosorbide Mononitrate 60 MG Tablet PO ×2 (05:10→16:27)
[2022-02-16] MEDS: Atorvastatin Calcium 10 MG Tablet PO (05:10)
[2022-02-16] MEDS: Clopidogrel Bisulfate 75 MG Tablet PO (05:10)
[2022-02-16] MEDS: Tolterodine Tartrate 4 MG CAP.SA PO (05:10)
[2022-02-16] MEDS: Loratadine 10 MG Tablet PO (05:11)
[2022-02-16] MEDS: Senna/Docusate Sodium 1 Tablet 2 TABLET PO ×2 (05:11→16:27)
[2022-02-16] MEDS: Pantoprazole Sodium 20 MG Tablet PO (05:11)
[2022-02-16] MEDS: Cholecalciferol (VIT D3) 25 MCG TABLET (1,000 UNITS) PO (05:11)
[2022-02-16] MEDS: Atenolol 50 MG Tablet PO (05:12)
[2022-02-16] MEDS: Furosemide 80 MG Tablet PO (05:12)
[2022-02-16] MEDS: Menthol/Lanolin/Calamine/Znox 113 GM Tube 1 APPLIC TOPICAL ×2 (05:12→16:28)
[2022-02-16] MEDS: Acetaminophen 500 MG Tablet 1000 MG PO ×3 (05:12→21:12)
[2022-02-16] MEDS: levoFLOXacin 250 MG Tablet PO (05:18)
[2022-02-16 06:55] VITALS: O2SAT 95
[2022-02-16] MEDS: MethylPREDNISolone DosePak 4 MG BOX PO ×4 (08:37→21:11)
[2022-02-16] MEDS: amLODIPine 2.5 MG Tablet PO (08:37)
[2022-02-16] MEDS: Potassium Chloride Oral Tablet 20 MEQ PO ×2 (08:37→16:27)
[2022-02-16] MEDS: Losartan Potassium 100 MG Tablet PO (08:37)
[2022-02-16] MEDS: Aspirin E.C. 81 MG Tablet PO (08:37)
[2022-02-16 08:39] VITALS: BP 123/67; PULSE 72; O2SAT 97
[2022-02-16 14:28] VITALS: BP 130/54; PULSE 73; RESP 17; TEMP 36.4; O2SAT 98
[2022-02-16] MEDS: Tamsulosin HCl 0.4 MG Capsule PO (16:27)
--- NOTE | 2022-02-16 16:39 | CASEMGMT ---
Addendum entered by Samantha Mojica 02/17/22 15:51: Correction: DC 02/19 Original Note: Social Work Insurance issued LCD 02/18, DC 02/19. Met with patient and son in room. Explained DC date and current level of functioning. IDT feel pt is able to return home with the 14/[address] Pt and son agree. Son requesting cot transport as she is unable to complete steps, still weak. Scheduled [facility]19 at 11 am. Son will be home. [facility] Referral made for PT/OT/SN. No DME needs indicated. Plan: DC home with DEVELOPER PROGRAMMER ANALYST and son 14/06 care, 02/18, [facility] PT/OT/SN HARRY VasquezW
--- NOTE | 2022-02-16 19:30 | DS.PCM_ITS ---
Providers Date of Admission: 01/29/22 Primary Care Physician: Dr. Linn Will MD Reason For Visit: RT HIP FRACTURE Diagnosis Discharge Diagnosis (1) Debility: Status: Acute Code(s): R53.81 - Other malaise (2) Fall: Code(s): W19.XXXA - Unspecified fall, initial encounter (3) Closed fracture of right hip: Code(s): S72.001A - Fracture of unspecified part of neck of right femur, initial encounter for closed fracture (4) Stroke: Status: Acute Code(s): I63.9 - Cerebral infarction, unspecified (5) Intracranial hemorrhage: Status: Acute Code(s): I62.9 - Nontraumatic intracranial hemorrhage, unspecified (6) Hypertension: Status: Chronic Code(s): I10 - Essential (primary) hypertension (7) Hyperlipidemia: Status: Acute Code(s): E78.5 - Hyperlipidemia, unspecified (8) Gastroesophageal reflux disease: Status: Acute Code(s): K21.9 - Gastro-esophageal reflux disease without esophagitis (9) Insomnia: Status: Acute Code(s): G47.00 - Insomnia, unspecified (10) Vitamin D deficiency: Status: Acute Code(s): E55.9 - Vitamin D deficiency, unspecified (11) Coronary artery disease: Status: Acute Code(s): I25.10 - Atherosclerotic heart disease of [place] coronary artery without angina pectoris (12) Allergic rhinitis: Status: Acute Code(s): J30.9 - Allergic rhinitis, unspecified (13) Overactive bladder: Status: Acute Code(s): N32.81 - Overactive bladder (14) Dizziness: Status: Acute Code(s): R42 - Dizziness and giddiness (15) Chronic systolic (congestive) heart failure: Status: Chronic Code(s): I50.22 - Chronic systolic (congestive) heart failure (16) Chronic obstructive pulmonary disease: Status: Chronic Code(s): J44.9 - Chronic obstructive pulmonary disease, unspecified Medications at Discharge Home Medications atenolol 50 mg PO DAILY 01/31/19 atorvastatin 10 mg PO DAILY 01/31/19 clopidogrel 75 mg PO DAILY 01/31/19 loratadine 10 mg PO DAILY 01/31/19 omeprazole 20 mg PO DAILY 01/31/19 potassium chloride 20 mEq tablet,extended release(part/cryst) 20 meq PO BID tab 09/01/19 albuterol sulfate 1 - 2 puff IH Q4H PRN PRN 06/13/20 cholecalciferol (vitamin D3) 2,000 unit PO DAILY 06/13/20 losartan 100 mg tablet 100 mg PO DAILY #90 tab 06/06/21 melatonin 5 mg PO QHS PRN 09/10/21 oxybutynin chloride 10 mg PO DAILY 09/10/21 meclizine 25 mg PO TID PRN #30 tab 09/11/21 furosemide 40 mg tablet 80 mg PO DAILY tab 12/01/21 nitroglycerin 0.4 mg sublingual tablet 0.4 mg SUBLINGUAL Q5-15M PRN #25 tab 12/01/21 amlodipine 2.5 mg PO DAILY 01/25/22 aspirin 81 mg PO DAILY 01/25/22 fluticasone propion-salmeterol 1 inh INHALATION BID 01/25/22 acetaminophen 1,000 mg PO Q8 01/29/22 isosorbide mononitrate 60 mg PO BID 01/29/22 levofloxacin 250 mg PO DAILY@0600 4 Days #4 tab 02/16/22 tamsulosin 0.4 mg PO DAILY@1730 30 Days #30 cap 02/16/22 Hospital Course Operations - (Right hip intramedullary nail fixation.) Procedures None Summary of Care Provided Minutes Spent on Discharge: 35 Hospital Course: 86 year old female with below past medical history hospitalized for right hip fracture, underwent right hip intramedullary nail fixation 01/25/[address] Byrd, complicated by confusion secondary to untreated vascular dementia, admitted to TCU with debility, here for rehabilitation, strengthening, prior to discharge home with son. 02/16/2022 Resident developed bronchitis, treated with 7 days of Levaquin. Discharge home with home health aide and son 24/7 care 02/19/2022, [facility] PT/OT/SN. Physical Exam Const alert General Appearance: cooperative HEENT normocephalic Eyes PERRL and EOMs intact bilaterally Neck supple, no JVD and no carotid bruits Resp normal respiratory effort, normal air movement and clear to auscultation bilaterally Cardio regular rate and regular rhythm GI normal to inspection, nondistended, normoactive bowel sounds, non-tender and non-distended Extremity normal capillary refill General Extremity: Negative for edema Skin no rashes or lesions noted General Skin Exam: no breakdown Psych affect normal Appearance: appropriate Weight / BMI Weight Weight: 81.278 kg Body Mass Index (BMI) 30.0 ABG / Lab / Microbiology Data Result Diagrams: 02/13/22 05:20 02/13/22 05:20 Microbiology: Microbiology 02/15/22 13:10 Nasal Secretion SARS-CoV-2 Antigen (Rapid) - Final 02/12/22 12:30 Nasal Secretion SARS-CoV-2 Antigen (Rapid) - Final 02/06/22 15:21 Urine, Clean Catch Urine Culture - Final Mixed Gram Pos & Gram Neg Org 02/05/22 11:40 Nasal Secretion SARS-CoV-2 Antigen (Rapid) - Final 01/29/22 15:10 Nasal Secretion SARS-CoV-2 Antigen (Rapid) - Final D/C Instructions Discharge Diet: No restrictions Discharge Activity: Return to Normal Activity, May Not Shower and Use Walker Weight Bearing Status: Weight bearing as tolerated Call your doctor if you observe: Fever of 101 or Higher, Inability to urinate, Inability to have a bowel movement, Shortness of breath, Dizziness, Fainting spells, Swelling in the ankles, Chest pain and Uncontrolled pain Additional Instructions: Discharge home with home health aide and son 14/06 care 02/19/2022, [facility] PT/OT/SN. Please Follow Up With: Spittle, DO When: As scheduled. Meaningful Use Info Meaningful Use Diagnoses (Choose all that apply): None applicable Discharge Plan Admission Admit Date/Time: 01/29/22 14:08 Primary Reason for Your Visit: Debility. Attending Provider: Tian Alexander Chi Primary Care Provider: Linn Will Instructions Additional Instructions / Restrictions: Discharge home with home health aide and son 14/06 care 02/19/2022, [facility] Care PT/OT/SN. Discharge Orders/Prescriptions Prescriptions: New levofloxacin 250 mg Tablet 250 mg PO DAILY@0600 4 Days Qty: 4 RF: 0 tamsulosin 0.4 mg Capsule 0.4 mg PO DAILY@1730 30 Days Qty: 30 RF: 0 Continued furosemide 40 mg tablet 80 mg PO DAILY RF: 0 nitroglycerin 0.4 mg tablet, sublingual 0.4 mg SUBLINGUAL Q5-15M PRN (Reason: chest pain) Qty: 25 RF: 3 atorvastatin 10 MG tablet 10 mg PO DAILY RF: 0 clopidogrel 75 MG tablet 75 mg PO DAILY RF: 0 omeprazole 20 MG capsule 20 mg PO DAILY RF: 0 atenolol 50 MG tablet 50 mg PO DAILY RF: 0 loratadine 10 MG tablet 10 mg PO DAILY RF: 0 potassium chloride 20 mEq tablet,ER particles/crystals 20 meq PO BID RF: 0 albuterol sulfate 90 mcg/actuation HFA aerosol inhaler 1 - 2 puff IH Q4H PRN PRN (Reason: Wheezing) RF: 0 cholecalciferol (vitamin D3) 1,000 UNIT tablet 2,000 unit PO DAILY RF: 0 oxybutynin chloride 15 mg tablet extended release 24hr 10 mg PO DAILY RF: 0 melatonin 5 mg Tablet 5 mg PO QHS PRN (Reason: Sleep) RF: 0 meclizine 25 mg tablet 25 mg PO TID PRN (Reason: dizziness) Qty: 30 RF: 1 fluticasone propion-salmeterol 250-50 mcg/dose Blister With Device 1 inh INHALATION BID RF: 0 amlodipine 2.5 mg Tablet 2.5 mg PO DAILY RF: 0 Hold Instructions: Until otherwise instructed aspirin 81 mg Tablet 81 mg PO DAILY RF: 0 acetaminophen 500 mg tablet 1,000 mg PO Q8 RF: 0 isosorbide mononitrate 60 mg tablet extended release 24 hr 60 mg PO BID RF: 0 losartan 100 mg tablet 100 mg PO DAILY Qty: 90 RF: 3 Discontinued oxycodone 5 mg Tablet 10 mg PO Q6H PRN PRN (Reason: Pain Score 6-10) 1 Days Qty: 0 RF: 0 dextromethorphan-guaifenesin 10-100 mg/5 mL Syrup 5 ml PO Q6H PRN PRN (Reason: Cough) Qty: 0 RF: 0 sennosides-docusate sodium [Stool Softener-Stimulant Laxat] 8.6-50 mg tablet 2 tab PO BID RF: 0 Referrals / Follow Up: Linn Will MD [Primary Care Provider] - Ronald Byrd DO [STAFF PHYSICIAN] - Within 1 Month Disposition Disposition (needs filled in before D/C Order can be placed): Home Health Service
[2022-02-16 22:41] VITALS: PULSE 62; RESP 16; O2SAT 98
[2022-02-17] MEDS: Fluticasone/Salmeterol 232-14 Inhaler 1 PUFF INHALATION ×2 (05:58→16:42)
[2022-02-17] MEDS: Loratadine 10 MG Tablet PO (05:58)
[2022-02-17] MEDS: Menthol/Lanolin/Calamine/Znox 113 GM Tube 1 APPLIC TOPICAL ×2 (05:58→13:48)
[2022-02-17] MEDS: Tolterodine Tartrate 4 MG CAP.SA PO (05:58)
[2022-02-17] MEDS: Isosorbide Mononitrate 60 MG Tablet PO ×2 (05:59→16:41)
[2022-02-17] MEDS: Furosemide 80 MG Tablet PO (06:02)
[2022-02-17] MEDS: Senna/Docusate Sodium 1 Tablet 2 TABLET PO (06:03)
[2022-02-17] MEDS: Pantoprazole Sodium 20 MG Tablet PO (06:03)
[2022-02-17] MEDS: Clopidogrel Bisulfate 75 MG Tablet PO (06:03)
[2022-02-17] MEDS: Atorvastatin Calcium 10 MG Tablet PO (06:03)
[2022-02-17] MEDS: Acetaminophen 500 MG Tablet 1000 MG PO ×3 (06:03→20:43)
[2022-02-17] MEDS: levoFLOXacin 250 MG Tablet PO (06:03)
[2022-02-17] MEDS: Atenolol 50 MG Tablet PO (06:04)
[2022-02-17] MEDS: Cholecalciferol (VIT D3) 25 MCG TABLET (1,000 UNITS) PO (06:04)
[2022-02-17] MEDS: Aspirin E.C. 81 MG Tablet PO (08:30)
[2022-02-17] MEDS: MethylPREDNISolone DosePak 4 MG BOX PO ×4 (08:30→20:42)
[2022-02-17] MEDS: Potassium Chloride Oral Tablet 20 MEQ PO ×2 (08:30→16:40)
[2022-02-17] MEDS: Losartan Potassium 100 MG Tablet PO (08:31)
[2022-02-17] MEDS: amLODIPine 2.5 MG Tablet PO (08:31)
[2022-02-17 08:37] VITALS: BP 123/57; PULSE 63
[2022-02-17] MEDS: traMADol 50 MG Tablet PO (11:31)
[2022-02-17 11:34] VITALS: O2SAT 98
[2022-02-17 14:49] VITALS: BP 111/60; PULSE 61; RESP 16; TEMP 36.3; O2SAT 99
[2022-02-17] MEDS: Tamsulosin HCl 0.4 MG Capsule PO (16:41)
[2022-02-17] MEDS: MELATONIN 10 MG TABLET 5 MG PO (20:45)
[2022-02-18 05:52] VITALS: BP 132/64; PULSE 67
[2022-02-18] MEDS: Acetaminophen 500 MG Tablet 1000 MG PO ×3 (05:53→21:09)
[2022-02-18] MEDS: Atenolol 50 MG Tablet PO (05:54)
[2022-02-18] MEDS: Cholecalciferol (VIT D3) 25 MCG TABLET (1,000 UNITS) PO (05:54)
[2022-02-18] MEDS: Furosemide 80 MG Tablet PO (05:54)
[2022-02-18] MEDS: Atorvastatin Calcium 10 MG Tablet PO (05:54)
[2022-02-18] MEDS: Clopidogrel Bisulfate 75 MG Tablet PO (05:54)
[2022-02-18] MEDS: Senna/Docusate Sodium 1 Tablet 2 TABLET PO ×2 (05:54→17:21)
[2022-02-18] MEDS: Loratadine 10 MG Tablet PO (05:54)
[2022-02-18] MEDS: Isosorbide Mononitrate 60 MG Tablet PO ×2 (05:54→17:21)
[2022-02-18] MEDS: levoFLOXacin 250 MG Tablet PO (05:54)
[2022-02-18] MEDS: Tolterodine Tartrate 4 MG CAP.SA PO (05:54)
[2022-02-18] MEDS: Pantoprazole Sodium 20 MG Tablet PO (05:54)
[2022-02-18] MEDS: Fluticasone/Salmeterol 232-14 Inhaler 1 PUFF INHALATION ×2 (05:57→17:21)
[2022-02-18] MEDS: Menthol/Lanolin/Calamine/Znox 113 GM Tube 1 APPLIC TOPICAL ×2 (06:01→17:26)
[2022-02-18] MEDS: MethylPREDNISolone DosePak 4 MG BOX PO ×3 (08:51→21:09)
[2022-02-18] MEDS: amLODIPine 2.5 MG Tablet PO (08:51)
[2022-02-18] MEDS: Potassium Chloride Oral Tablet 20 MEQ PO ×2 (08:51→17:20)
[2022-02-18] MEDS: Aspirin E.C. 81 MG Tablet PO (08:51)
[2022-02-18] MEDS: Losartan Potassium 100 MG Tablet PO (08:51)
[2022-02-18 13:46] VITALS: BP 110/65; PULSE 65; RESP 16; TEMP 36; O2SAT 97
--- NOTE | 2022-02-18 14:47 | NURSING ---
R' C/O URINARY BURNING/PAIN. ALSO, HAVING URINARY RETENTION AROUND 500cc. C/O BLADDER FULLNESS. NOTIFIED DR MOFFETT. UA C+S. ALSO, PLACE PRASAD.
[2022-02-18 15:03] VITALS: O2SAT 97
--- NOTE | 2022-02-18 15:21 | NURSING ---
16F PRASAD PLACED AT THIS TIME. 500cc RETURN OF YELLOW, CLEAR URINE. 500c RETURN. R' TOLERATED WELL. UA C+S SENT. R' C/O BURNING/PAIN AND URGENCY WITH URINATION.
[2022-02-18 15:33] LABS: Bacteria 0 SEEN /hpf (None Seen); Mucous, Urine 0 SEEN /hpf (<or=2+); Red Blood Cells-Urine 0 SEEN /hpf (0-5); Squamous Epithelial Cells - UA 0 SEEN /hpf (5-10); White Blood Cells 0 SEEN /hpf (0-5)
[2022-02-18 15:43] LABS: Color, Urine Yellow (Yellow); Glucose, Dipstick Normal (Normal); Ketone-Dipstick Negative (Negative); Leukocyte Esterase-Dipstick Negative /ul (Negative); Nitrite-Dipstick Negative (Negative); Occult Blood-Urine Negative /ul (Negative); Protein-Dipstick Negative (Negative); Urine Bilirubin Dipstick Negative (Negative); Urine Clarity Clear (Clear); Urine Urobilinogen Normal (Normal)
--- NOTE | 2022-02-18 15:53 | NURSING ---
CALLED AND VM FOR SON TO CALL BACK TO UPDATE HIM ON PRASAD AND UA C+S ORDER. AWAITING RETURN CALL.
[2022-02-18] MEDS: Tamsulosin HCl 0.4 MG Capsule PO (17:20)
[2022-02-18] MEDS: Nystatin Powder 15gm Bottle 1 APPLIC TOPICAL (18:10)
[2022-02-18] MEDS: MELATONIN 10 MG TABLET 5 MG PO (21:09)
[2022-02-18 21:10] VITALS: O2SAT 96
[2022-02-19 06:10] VITALS: BP 137/71; PULSE 62
[2022-02-19] MEDS: Nystatin Powder 15gm Bottle 1 APPLIC TOPICAL (06:11)
[2022-02-19] MEDS: Senna/Docusate Sodium 1 Tablet 2 TABLET PO (06:11)
[2022-02-19] MEDS: Menthol/Lanolin/Calamine/Znox 113 GM Tube 1 APPLIC TOPICAL (06:11)
[2022-02-19] MEDS: Fluticasone/Salmeterol 232-14 Inhaler 1 PUFF INHALATION (06:11)
[2022-02-19] MEDS: Isosorbide Mononitrate 60 MG Tablet PO (06:12)
[2022-02-19] MEDS: Cholecalciferol (VIT D3) 25 MCG TABLET (1,000 UNITS) PO (06:12)
[2022-02-19] MEDS: Clopidogrel Bisulfate 75 MG Tablet PO (06:12)
[2022-02-19] MEDS: Atenolol 50 MG Tablet PO (06:12)
[2022-02-19] MEDS: Acetaminophen 500 MG Tablet 1000 MG PO (06:12)
[2022-02-19] MEDS: Atorvastatin Calcium 10 MG Tablet PO (06:12)
[2022-02-19] MEDS: Pantoprazole Sodium 20 MG Tablet PO (06:13)
[2022-02-19] MEDS: Loratadine 10 MG Tablet PO (06:13)
[2022-02-19] MEDS: Tolterodine Tartrate 4 MG CAP.SA PO (06:13)
[2022-02-19] MEDS: levoFLOXacin 250 MG Tablet PO (06:13)
[2022-02-19] MEDS: Furosemide 80 MG Tablet PO (06:13)
[2022-02-19 06:48] VITALS: O2SAT 96
[2022-02-19] MEDS: Aspirin E.C. 81 MG Tablet PO (09:20)
[2022-02-19] MEDS: amLODIPine 2.5 MG Tablet PO (09:21)
[2022-02-19] MEDS: Losartan Potassium 100 MG Tablet PO (09:21)
[2022-02-19] MEDS: Potassium Chloride Oral Tablet 20 MEQ PO (09:21)
[2022-02-19] MEDS: MethylPREDNISolone DosePak 4 MG BOX PO (09:21)
[2022-02-19 09:22] VITALS: TEMP 37
[2022-02-19 10:00] VITALS: PULSE 65; RESP 18; O2SAT 97
--- NOTE | 2022-02-19 11:55 | CASEMGMT ---
Social Work Nursing was notified by family that patient only has O2 concentrator at home for night time use and is requesting portable O2 tanks, now that pt is on O2 continuously. Pt receives O2 from [employer]. Send new script [place] [facility] [place]. Samantha Mojica, [employer]ER RN CAMP
[2022-02-19] MEDS: traMADol 50 MG Tablet PO (11:58)
--- NOTE | 2022-02-19 13:08 | MDS.RN ---
Pain interview for SREE 02/19/22 completed.
== END 2022-02-19 12:15 | disposition home health service (06) | DRG 560 ==
PROVIDERS: Admitting Provider Family Medicine Geriatric Medicine; PCP Internal Medicine; Visit Provider Family Medicine Geriatric Medicine
DX: S72.001D Fracture of unspecified part of neck of right femur, subsequent encounter for closed fracture with routine healing (principal); I50.22 Chronic systolic (congestive) heart failure; I11.0 Hypertensive heart disease with heart failure; F01.50 Vascular dementia, unspecified severity, without behavioral disturbance, psychotic disturbance, mood disturbance, and anxiety; J44.9 Chronic obstructive pulmonary disease, unspecified; I25.10 Atherosclerotic heart disease of native coronary artery without angina pectoris; W19.XXXD Unspecified fall, subsequent encounter; E78.5 Hyperlipidemia, unspecified; E55.9 Vitamin D deficiency, unspecified; K21.9 Gastro-esophageal reflux disease without esophagitis; E87.6 Hypokalemia; N32.81 Overactive bladder; Z79.899 Other long term (current) drug therapy; Z79.02 Long term (current) use of antithrombotics/antiplatelets; Z79.82 Long term (current) use of aspirin
CPT/HCPCS: 36415; 71046; 73502; 74018; 80048; 81001; 82962; 85014; 85018; 85025; 86850; 86900; 86901; 86920; 86922; 87086; 87088; 87426; 87811; 92507; 92523; 92526; 92610; 97110; 97116; 97161; 97166; 97530; 97535; 97802; A4216

== ENCOUNTER 2022-01-31 09:27 | Outpatient (CLI) | payer MEDICARE, MEDICAID, SELFPAY ==
[2022-01-31] VITALS (9 sets, daily range): BP systolic 108–134; BP diastolic 55–86; PULSE 72–79; RESP 16–20; TEMP 36.4–37; O2SAT 96–98
[2022-01-31] MEDS: Furosemide 20 MG/2 ML VIAL IV (15:59)
== END 2022-01-31 23:59 | disposition home or self-care (01) ==
LOC: MEDOUTP 09:27 → PCU 09:28
PROVIDERS: PCP Internal Medicine; Referring Provider Family Medicine Geriatric Medicine; Visit Provider Family Medicine Geriatric Medicine
DX: S72.009A Fracture of unspecified part of neck of unspecified femur, initial encounter for closed fracture (principal); X58.XXXA Exposure to other specified factors, initial encounter
CPT/HCPCS: 36415; 36430; 86850; 86900; 86901; 86920; 86922; J7040; P9016; J1940

== ENCOUNTER 2022-02-02 10:46 | Outpatient (CLI) | payer MEDICARE, MEDICAID, SELFPAY ==
--- NOTE | 2022-02-02 10:51 | VDLE_ITS ---
Reason For Study: swelling RIGHT GSV is normal. CFV is compressible, spontaneous, phasic, competent and demonstrates normal augmentation. FV is compressible, spontaneous, phasic, competent and demonstrates normal augmentation. POP V is compressible, spontaneous, phasic, competent and demonstrates normal augmentation. T/P Trunk is compressible. PTV is compressible. RT PerV is compressible. Procedure This is a venous duplex using B-mode, color flow and spectral Doppler. Exam performed portable in patient room. The exam was abbreviated due to the COVID 19 protocol. The exam was diagnostic. Difficult study due to pt's inability to position. A preliminary report was called and/or faxed to TCU staff. VL/Venous Duplex US, Unilateral Interpretation Summary Deep veins of the right lower extremity are patent and compressible segmentally . There is no evidence of right lower extremity deep vein thrombosis. Valvular competence zane ears intact within the proximal deep venous system on the right . The right great saphenous vein a ppears patent and compressible segmentally. Ordering Physician: Tian Alexander Performed By: Evelio Mazariegos RVT
== END 2022-02-02 23:59 | disposition home or self-care (01) ==
LOC: CVS 10:47
PROVIDERS: PCP Internal Medicine; Referring Provider Family Medicine Geriatric Medicine; Visit Provider Family Medicine Geriatric Medicine
DX: R22.41 Localized swelling, mass and lump, right lower limb (principal)
CPT/HCPCS: 93971

== ENCOUNTER 2022-06-09 21:36 | Observation (INO) | payer MEDICARE, MEDICAID, SELFPAY ==
[2022-06-09 21:37] VITALS: BP 157/72; PULSE 72; RESP 17; TEMP 36.2; O2SAT 96; BMI 28.3
--- NOTE | 2022-06-09 22:07 | EDS_ITS ---
HPI HPI - Fall History of Present Illness Chief Complaint: Fall Informant: patient and family Narrative Narrative: Patient fell in her kitchen. Her dog had urinated on the floor. She stepped in it slipped and fell. She did bump her head on the cabinetry. She has mild soreness in the left side of her head but no loss of consciousness or neurologic complaint. She also complains of some pain near her left hip. She has had surgery on both hips. She is also on Plavix. She never lost consciousness at any time. This was a mechanical fall and not syncope. Nothing really makes symptoms better or worse. [facility] Medical History Acute cystitis Acute ischemic stroke Adult failure to thrive Allergic rhinitis Angina pectoris Asthma Benign essential HTN Cerebrovascular disease Chronic systolic (congestive) heart failure Closed fracture of right hip Closed head injury COPD (chronic obstructive pulmonary disease) Decreased level of consciousness Dilatation of aorta Dizziness Edema Encephalopathy Essential hypertension Fall Fall Fracture of rib Gastroesophageal reflux disease Hallucinations History of stroke HLD (hyperlipidemia) Hypertension Hypokalemia Insomnia Intellectual disability Left hip pain Lethargy Normocytic anemia Overactive bladder Shortness of breath Subdural hematoma Urinary incontinence Urinary tract infection Vitamin D deficiency Weakness Home Medications atenolol 50 mg tablet 50 mg PO DAILY blood pressure 01/31/19 [History Last Taken 09/10/21] atorvastatin 10 mg tablet 10 mg PO DAILY cholesterol 01/31/19 [History Last Taken 09/09/21] clopidogrel 75 mg tablet 75 mg PO DAILY heart health 01/31/19 [History Last Taken 09/10/21] loratadine 10 mg tablet 10 mg PO DAILY allergies 01/31/19 [History Last Taken 09/10/21] omeprazole 20 mg capsule,delayed release 20 mg PO DAILY GERD 01/31/19 [History Last Taken 09/10/21] potassium chloride 20 mEq tablet,extended release(part/cryst) 20 meq PO BID supplement 09/01/19 [History Last Taken 09/10/21] albuterol sulfate 90 mcg/actuation aerosol inhaler 1 - 2 puff IH Q4H PRN PRN Wheezing 06/13/20 [History Last Taken 2 Weeks Ago ~08/27/21] cholecalciferol (vitamin D3) 25 mcg (1,000 unit) tablet 2,000 unit PO DAILY supplement 06/13/20 [History Last Taken 09/10/21] melatonin 5 mg tablet 5 mg PO QHS PRN Sleep 09/10/21 [History Last Taken Unknown] oxybutynin chloride 15 mg tablet,extended release 24 hr 10 mg PO DAILY BLADDER 09/10/21 [History Last Taken 09/10/21] meclizine 25 mg tablet 25 mg PO TID PRN dizziness #30 tabs 09/11/21 [Rx Last Taken Unknown] furosemide 40 mg tablet 80 mg PO DAILY CHF 12/01/21 [History Last Taken Unknown] nitroglycerin 0.4 mg sublingual tablet 0.4 mg sublingual Q5-15M PRN chest pain #25 tabs 12/01/21 [Rx Last Taken Unknown] amlodipine 2.5 mg tablet 2.5 mg PO DAILY blood pressure 01/25/22 [History Last Taken Unknown] aspirin 81 mg tablet 81 mg PO DAILY heart health 01/25/22 [History Last Taken Unknown] fluticasone 250 mcg-salmeterol 50 mcg/dose blistr powdr for inhalation 1 inh inhalation BID breathing 01/25/22 [History Last Taken Unknown] acetaminophen 500 mg tablet 1,000 mg PO Q8 Pain 01/29/22 [History Last Taken Unknown] levofloxacin 250 mg tablet 250 mg PO DAILY@0600 4 days #4 tabs 02/16/22 [Rx Last Taken Unknown] tamsulosin 0.4 mg capsule 0.4 mg PO DAILY@1730 30 days #30 caps 02/16/22 [Rx Last Taken Unknown] isosorbide mononitrate 60 mg tablet,extended release 24 hr 60 mg PO BID Heart #180 tabs 05/12/22 [Rx Last Taken Unknown] losartan 100 mg tablet 100 mg PO DAILY blood pressure #90 tabs 05/12/22 [Rx Last Taken Unknown] Allergy/AdvReac Type Severity Reaction Status Date / Time adhesive Allergy Rash Verified 06/09/22 21:41 amitriptyline Allergy CONFUSION Verified 06/09/22 21:41 codeine Allergy Hives Verified 06/09/22 21:41 hydrocodone bitartrate Allergy Hives Verified 06/09/22 21:41 [From Vicodin] Iodinated Contrast Media Allergy Hives Verified 06/09/22 21:41 [Iodinated Contrast Media - IV Dye] naproxen Allergy Unknown Verified 06/09/22 21:41 Penicillins Allergy Rash Verified 06/09/22 21:41 phenytoin sodium Allergy Hives Verified 06/09/22 21:41 [From Dilantin] phenytoin sodium extended Allergy Hives Verified 06/09/22 21:41 [From Dilantin] silicone Allergy Hives Verified 06/09/22 21:41 Family History Sister Heart disease Surgical History History of brain surgery History of breast biopsy History of hysterectomy History of umbilical hernia repair S/P ORIF (open reduction internal fixation) fracture (~05/19/15) S/P ORIF (open reduction internal fixation) fracture Social History household members: children and other details: Son. Smoking Status: Never smoker alcohol intake: never substance use type: does not use caffeine: Yes Type: carbonated beverages and coffee ROS ROS ED Constitutional Constitutional ED: Denies fever(s) Eyes Eyes: Denies change in vision ENT ENT ED: Denies rhinorrhea Cardiovascular Cardiovascular: Denies chest pain or palpitations Respiratory/Chest Respiratory/Chest: Denies cough or dyspnea Gastrointestinal Gastrointestinal: Denies nausea or vomiting Genitourinary Genitourinary ED: Denies hematuria Musculoskeletal Musculoskeletal: Reports other Details: See history of present illness. ; Denies back pain or neck pain Integumentary Reports other Details: She hit her head but no abrasion or laceration. ; Denies Abrasions Neurologic Neurologic: Denies headache(s) or paresthesias Endocrine Endocrinology: Denies polydipsia or polyuria Hematologic/Lymphatic Hematologic/Lymphatic: Reports easy bleeding and easy bruising Allergic/Immunologic Allergic/Immunologic ED: Denies urticaria EXAM Physical Exam Const Vital Signs: 06/09/22 21:37 06/09/22 21:43 06/10/22 00:43 Temperature 97.2 F L Temperature Source Temporal Pulse Rate 72 70 Respiratory Rate 17 18 Respiratory Effort Normal Non-Labored Respiratory Depth Normal Respiratory Pattern Normal Blood Pressure 157/72 H 161/77 H Blood Pressure Mean 100 105 Pulse Ox 96 95 Oxygen Delivery Method Room Air Room Air Room Air Positive well nourished and well developed General Appearance ED: well developed and NAD HEENT HEENT Narrative: No visible abrasion or contusion yet at this point found on her head. Eyes EOMs intact bilaterally Neck full ROM General: Negative for tenderness Chest Wall inspection of chest normal Resp normal respiratory effort Resp Narrative: No tenderness to palpation or AP or lateral compression. Auscultation: Negative for rales, rhonchi, wheezes or diminished lung sounds Cardio regular rate and regular rhythm GI non-tender and non-distended Palpation: soft Back/Spine Cervical Spine: Negative for cervical spine tenderness Thoracic Spine / Upper Back: Negative for thoracic spinal tenderness Lumbar Spine / Lower Back: Negative for lumbar spinal tenderness Extremity Extremity Narrative: Patient has no pain with palpation or range of motion of upper extremities. She does complain of pain mostly near the left hip area. But she states she has some pain in her lower leg. But it is not tender and. She is not shortened or rotated. Neither leg is strong but she can lift her left leg as well as her right. Neuro oriented x3 Psych mental status grossly normal Skin Lesions: no lesions MDM MDM MDM Narrative Medical decision making narrative: CT showed no acute process. X-rays of the hip pelvis show fracture left pubic rami. There is also mention of a right femoral intratrochanteric fracture. However, when I look back on prior films from January this was seen there and this appears to be why she already had surgery there. No acute tib-fib fracture. Patient is admitted. Of note, this dictation is done in a delayed fashion due to a prolonged downtime of our computer system and I do not have access to all information. Radiography Diagnostic Testing: Clinical Impression(s) from Imaging Studies Brain CT 06/09/22 22:22 IMPRESSION: undefined Hip/Pelvis X-Ray 06/09/22 22:40 IMPRESSION: Mildly displaced fractures of the left pubic rami. Right femoral intratrochanteric fracture. Electronically Signed: Saul Palacios MD at 23:28 EDT , Tibia/Fibula X-Ray 06/09/22 22:40 IMPRESSION: No acute fracture or dislocation. Electronically Signed: Saul Palacios MD at 23:25 EDT , Discharge Plan Dx/Rx/DC Orders Clinical Impression: Fall from slipping, Closed pelvic fracture, 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 Disposition Disposition: Acute Care Hospital [facility] Discharge Date/Time: 06/10/22 03:30
--- NOTE | 2022-06-09 22:22 | CT_ITS ---
STUDY: CT BRAIN WITHOUT CONTRAST REASON FOR EXAM: Female, 86 years old. Trauma RADIATION DOSAGE (If Supplied By Facility): CTDIvol = ( 44.99 ) mGy, DLP = ( 812.98 ) mGycm TECHNIQUE: Transaxial CT imaging of the brain was performed without administration of intravenous contrast material. Individualized dose optimization techniques were used for this CT. COMPARISON: CT brain 01/24/2022 FINDINGS: BRAIN: Encephalomalacia in the left frontal lobe, similar compared to the prior. VENTRICLES: No hydrocephalus. EXTRA-AXIAL SPACES: No hemorrhages, fluid collections, or masses. CALVARIUM/SKULL BASE: Right frontal craniotomy, similar compared to the prior.. FACE/SINUSES: Visualized portions normal. SOFT TISSUES: Normal. OTHER: Vascular calcifications. Left mastoid effusion. CONCLUSION: No intracranial hemorrhage or acute territorial infarction. Left mastoid effusion. Electronically Signed: Saul Palacios MD at 23:06 EDT , CT/Brain/Head without Contrast IMPRESSION: undefined
--- NOTE | 2022-06-09 22:40 | RAD_ITS ---
INDICATION: Trauma EXAMINATION/TECHNIQUE: X-RAY - LEFT XR Hip Unilateral with Pelvis when performed; 2-3 Views 3 VIEWS COMPARISON: None. FINDINGS: SOFT TISSUES: Vascular calcifications. No soft tissue swelling or gas. No radiopaque foreign body. BONES/JOINTS: Bilateral femoral intramedullary rods and dynamic hip screws with a right femoral intertrochanteric fracture. Mildly displaced fractures through the left inferior and superior pubic rami. RAD/HIP, UNI W/ Pelvis 2-3 Views IMPRESSION: Mildly displaced fractures of the left pubic rami. Right femoral intratrochanteric fracture. Electronically Signed: Saul Palacios MD at 23:28 EDT ,
--- NOTE | 2022-06-09 22:40 | RAD_ITS ---
INDICATION: Trauma EXAMINATION/TECHNIQUE: X-RAY - LEFT XR Tibia/Fibula 2 Views 2 VIEWS COMPARISON: None. FINDINGS: SOFT TISSUES: Vascular calcifications. No soft tissue swelling or gas. No radiopaque foreign body. BONES/JOINTS: No acute fracture or subluxation.. Normal alignment. Preservation of the joint space.. No sclerotic or destructive changes observed. RAD/Tibia & Fibula 2 Views IMPRESSION: No acute fracture or dislocation. Electronically Signed: Saul Palacios MD at 23:25 EDT ,
[2022-06-10] VITALS (10 sets, daily range): BP systolic 0–161; BP diastolic 0–86; PULSE 0–73; RESP 0–20; TEMP -17.7–37.1; O2SAT 0–99; BMI 27.6
--- NOTE | 2022-06-10 00:53 | PCM.HP.STD ---
HPI - General General Date of Admission: 06/10/22 Date of Service: 06/10/22 Chief Complaint: Fall HPI Narrative CARMEN LAND, is a 86 F who slipped over his dog's urine and fell. Reportedly she hit her head and also her right hip. She has excruciating pain in the right hip. Also she has pain at her scalp. [facility] Medical History Acute cystitis Acute ischemic stroke Adult failure to thrive Allergic rhinitis Angina pectoris Asthma Benign essential HTN Cerebrovascular disease Chronic systolic (congestive) heart failure Closed fracture of right hip Closed head injury COPD (chronic obstructive pulmonary disease) Decreased level of consciousness Dilatation of aorta Dizziness Edema Encephalopathy Essential hypertension Fall Fall Fracture of rib Gastroesophageal reflux disease Hallucinations History of stroke HLD (hyperlipidemia) Hypertension Hypokalemia Insomnia Intellectual disability Left hip pain Lethargy Normocytic anemia Overactive bladder Shortness of breath Subdural hematoma Urinary incontinence Urinary tract infection Vitamin D deficiency Weakness Home Medications atenolol 50 mg tablet 50 mg PO DAILY blood pressure 01/31/19 [History Last Taken 09/10/21] atorvastatin 10 mg tablet 10 mg PO DAILY cholesterol 01/31/19 [History Last Taken 09/09/21] clopidogrel 75 mg tablet 75 mg PO DAILY heart health 01/31/19 [History Last Taken 09/10/21] loratadine 10 mg tablet 10 mg PO DAILY allergies 01/31/19 [History Last Taken 09/10/21] omeprazole 20 mg capsule,delayed release 20 mg PO DAILY GERD 01/31/19 [History Last Taken 09/10/21] potassium chloride 20 mEq tablet,extended release(part/cryst) 20 meq PO BID supplement 09/01/19 [History Last Taken 09/10/21] albuterol sulfate 90 mcg/actuation aerosol inhaler 1 - 2 puff IH Q4H PRN PRN Wheezing 06/13/20 [History Last Taken 2 Weeks Ago ~08/27/21] cholecalciferol (vitamin D3) 25 mcg (1,000 unit) tablet 2,000 unit PO DAILY supplement 06/13/20 [History Last Taken 09/10/21] melatonin 5 mg tablet 5 mg PO QHS PRN Sleep 09/10/21 [History Last Taken Unknown] oxybutynin chloride 15 mg tablet,extended release 24 hr 10 mg PO DAILY BLADDER 09/10/21 [History Last Taken 09/10/21] meclizine 25 mg tablet 25 mg PO TID PRN dizziness #30 tabs 09/11/21 [Rx Last Taken Unknown] furosemide 40 mg tablet 80 mg PO DAILY CHF 12/01/21 [History Last Taken Unknown] nitroglycerin 0.4 mg sublingual tablet 0.4 mg sublingual Q5-15M PRN chest pain #25 tabs 12/01/21 [Rx Last Taken Unknown] amlodipine 2.5 mg tablet 2.5 mg PO DAILY blood pressure 01/25/22 [History Last Taken Unknown] aspirin 81 mg tablet 81 mg PO DAILY heart health 01/25/22 [History Last Taken Unknown] fluticasone 250 mcg-salmeterol 50 mcg/dose blistr powdr for inhalation 1 inh inhalation BID breathing 01/25/22 [History Last Taken Unknown] acetaminophen 500 mg tablet 1,000 mg PO Q8 Pain 01/29/22 [History Last Taken Unknown] levofloxacin 250 mg tablet 250 mg PO DAILY@0600 4 days #4 tabs 02/16/22 [Rx Last Taken Unknown] tamsulosin 0.4 mg capsule 0.4 mg PO DAILY@1730 30 days #30 caps 02/16/22 [Rx Last Taken Unknown] isosorbide mononitrate 60 mg tablet,extended release 24 hr 60 mg PO BID Heart #180 tabs 05/12/22 [Rx Last Taken Unknown] losartan 100 mg tablet 100 mg PO DAILY blood pressure #90 tabs 05/12/22 [Rx Last Taken Unknown] Allergy/AdvReac Type Severity Reaction Status Date / Time adhesive Allergy Rash Verified 06/09/22 21:41 amitriptyline Allergy CONFUSION Verified 06/09/22 21:41 codeine Allergy Hives Verified 06/09/22 21:41 hydrocodone bitartrate Allergy Hives Verified 06/09/22 21:41 [From Vicodin] Iodinated Contrast Media Allergy Hives Verified 06/09/22 21:41 [Iodinated Contrast Media - IV Dye] naproxen Allergy Unknown Verified 06/09/22 21:41 Penicillins Allergy Rash Verified 06/09/22 21:41 phenytoin sodium Allergy Hives Verified 06/09/22 21:41 [From Dilantin] phenytoin sodium extended Allergy Hives Verified 06/09/22 21:41 [From Dilantin] silicone Allergy Hives Verified 06/09/22 21:41 Family History Sister Heart disease Surgical History History of brain surgery History of breast biopsy History of hysterectomy History of umbilical hernia repair S/P ORIF (open reduction internal fixation) fracture (~05/19/15) S/P ORIF (open reduction internal fixation) fracture Social History household members: children and other details: Son. Smoking Status: Never smoker alcohol intake: never substance use type: does not use caffeine: Yes Type: carbonated beverages and coffee ROS ROS Narrative Pertinent positives and pertinent negatives as noted in HPI. All other systems were reviewed and are negative. Vital Signs Vital Signs Vital Signs: 06/09/22 21:37 06/09/22 21:43 06/10/22 00:43 Temperature 97.2 F L Temperature Source Temporal Pulse Rate 72 70 Respiratory Rate 17 18 Respiratory Effort Normal Non-Labored Respiratory Depth Normal Respiratory Pattern Normal Blood Pressure 157/72 H 161/77 H Blood Pressure Mean 100 105 Pulse Ox 96 95 Oxygen Delivery Method Room Air Room Air Room Air Weight Weight: 79.6 kg Body Mass Index (BMI) 28.3 Physical Exam Narrative Physical exam: General: Well-nourished, well-developed. Head: Normocephalic, scabbed area at left parietal region, with some surrounding ecchymosis. Eyes: Vision is grossly intact. EOMI ENT, no trauma, moist mucous membranes, no rhinorrhea Neck: Nontender, full range of motion, no spinal tenderness, deformities, step-off CVS: Regular rate and rhythm. S1-S2 present. No murmur, gallop or rub. Respiratory : clear to auscultation bilaterally, chest wall nontender, no wheezing Abdomen: Soft, nontender, nondistended, normal bowel sounds, no masses : Deferred Back: Nontender, no CVA tenderness, no midline spinal tenderness, deformities, step-offs Extremities: Tender left hip. Able to raise right leg minimally. Left lower extremity range of motion not tested. Skin: Normal color, no trauma, abrasions Neuro: Alert, oriented, cranial nerves II through XII grossly intact. Psychiatry: Normal mood. Normal affect. Not depressed. Not anxious. Results Radiology Impression Brain CT 06/09/22 22:22 IMPRESSION: undefined Hip/Pelvis X-Ray 06/09/22 22:40 IMPRESSION: Mildly displaced fractures of the left pubic rami. Right femoral intratrochanteric fracture. Electronically Signed: Saul Palacios MD at 23:28 EDT , Tibia/Fibula X-Ray 06/09/22 22:40 IMPRESSION: No acute fracture or dislocation. Electronically Signed: Saul Palacios MD at 23:25 EDT Reading Location ID and State: [id number] / [place] Tel , Service support , Assessment & Plan Assessment/Plan (1) Pelvic fracture: (2) Fall from slipping: PLAN: Plan Hip/pelvic x-ray was visualized and independently interpreted and I agree with radiologist interpretation of mildly displaced fractures of the left pubic rami (inferior and superior). Also noted is bilateral femoral intramedullary rods and screws. Review of labs showed mild leukocytosis of 11.2, likely reactive. Trend. At the emergency department patient did not want to get up and walk. PT and OT consult. As needed oxycodone. Tylenol ordered. Case management consult Hypertension Blood pressure is not within goal Home blood pressure medication continued. As needed hydralazine ordered. Trend blood pressure and adjust blood pressure medications. History of stroke Stable Aspirin, Plavix and statin continued. DVT prophylaxis: Subcutaneous Lovenox ordered. Charges/Coding Visit Charges OBSV E&M: 14272 Initial observation care L3
--- NOTE | 2022-06-10 06:03 | ED.RN ---
SEE DOWNTIME CHARTING
[2022-06-10] MEDS: Acetaminophen 500 MG Tablet 1000 MG PO ×3 (06:39→21:25)
--- NOTE | 2022-06-10 06:50 | NURSING ---
Admission weight/nutrition screen, oral assessment, and admission questions answered on down time paperwork. See chart for downtime info.
[2022-06-10] MEDS: Aspirin 81 MG TAB.CHEW PO (08:18)
[2022-06-10] MEDS: Enoxaparin 40 MG/0.4 ML Syringe SC (08:18)
[2022-06-10] MEDS: Atenolol 50 MG Tablet PO (08:19)
[2022-06-10] MEDS: Cholecalciferol (VIT D3) 25 MCG TABLET (1,000 UNITS) 50 MCG PO (08:19)
[2022-06-10] MEDS: Clopidogrel Bisulfate 75 MG Tablet PO (08:19)
--- NOTE | 2022-06-10 10:34 | CASEMGMT ---
SW met with patient. Introduced self and role at [facility]. SW provided patient with a list of SNF providers including quality and resource use data and consistent with the patient?s preferred geographic region, medical needs, and insurance network. SW explained the facilities highlighted in pink are the ones that take her insurance so those are her options. SW let patient know that TCU does not have any beds available. Patient said she will talk with her son. SW asked if she knew when her son will be in and she said when she calls him. SW told her the sooner the better so SW can get things started. Melisa Abraham HOT STAMP OPERATOR ISHAN
--- NOTE | 2022-06-10 13:19 | CASEMGMT ---
Addendum entered by Melisa Abraham 06/10/22 14:41: VICKY called patient's son again with no answer and voice mailbox full. SW went to patient's room and she was sleeping. SW then called patient's daughter, Nikia and left her a message requesting a return call. Melisa OLMSTEAD Original Note: SW went to patient's room and she has not talked with her son yet. IVCKY asked patient if it was okay for SW to call her son and she said that was fine. SW called patient's son Cuong. No one answered and voice mailbox was full. VICKY will continue to try and reach patient's son. Melisa OLMSTEAD
--- NOTE | 2022-06-10 15:30 | CASEMGMT ---
VICKY called patient's son, Cuong. VICKY explained patient will need to go to a jail short term for rehab. VICKY went over the list of facilities that take patient's insurance and he picked [facility], [facility], and [facility]. Cuong does still want to look at the list when he comes in this evening. VICKY did ask Misty d/c urban planning teacher to send a referral to [facility]. Melisa OLMSTEAD
--- NOTE | 2022-06-10 15:32 | CASEMGMT ---
IBRAHIMA CM in to complete LEPE form with patient. RN PIERO explained LEPE form to patient, patient voiced understanding. Patient signed LEPE Form and filed in chart. Patient provided with copy of signed LEPE form. Patient had no further questions or concerns at this time.
--- NOTE | 2022-06-10 15:36 | NURSING ---
This RN taking over care at this time
--- NOTE | 2022-06-10 15:38 | CASEMGMT ---
Discharge Dice Table Person Misty Mattson Occupational Health Specialist faxed a referral over to [facility]. Will follow up. Misty Choe Discharge Dice Table Person
--- NOTE | 2022-06-10 15:39 | PN.HOSP_ITS ---
Subjective Subjective Patient seen and examined. She was quite somnolent, but arousable. SHe was a bit confused and couldnt give clear responses to questions. REview of systems was otherwise negative. Objective Data Objective Data Vital Signs: Vital Signs Temp Pulse Resp BP Pulse Ox O2 Del Method O2 Flow Rate 97.7 F L 65 14 121/65 H 92 Nasal Cannula 3 06/10/22 09:00 06/10/22 09:00 06/10/22 10:00 06/10/22 09:00 06/10/22 10:05 06/10/22 10:05 06/10/22 10:05 Oxygen Flow Rate (L/min) 3 Oxygen Delivery Method Nasal Cannula Weight: 175 lb 7.807 oz Body Mass Index (BMI) 28.3 Intake & Output: Intake and Output for Last 24 Hours 06/08/22 06/09/22 06/10/22 23:59 23:59 23:59 Intake Total 480 / 480 Output Total 400 / 400 Balance 80 / 80 Radiography Diagnostic Testing: Radiology Impression Brain CT 06/09/22 22:22 IMPRESSION: undefined Hip/Pelvis X-Ray 06/09/22 22:40 IMPRESSION: Mildly displaced fractures of the left pubic rami. Right femoral intratrochanteric fracture. Electronically Signed: Saul Palacios MD at 23:28 EDT , Tibia/Fibula X-Ray 06/09/22 22:40 IMPRESSION: No acute fracture or dislocation. Electronically Signed: Saul Palacios MD at 23:25 EDT , Physical Exam Const Constitutional Narrative: lethargic, confused Orientation / Consciousness: confused HEENT head/scalp atraumatic and moist oral mucous membranes Head and Scalp: normocephalic Mouth: oral and palatal mucosa normal Eyes PERRL and EOMs intact bilaterally Neck no lymphadenopathy and supple Resp normal respiratory effort and no retractions Cardio regular rate, regular rhythm, S1 normal heart sound, S2 normal heart sound and no murmurs GI normal to inspection, nondistended, normoactive bowel sounds, soft to palpation and non-tender Extremity normal to inspection, full ROM and no clubbing, cyanosis or edema Neuro moves all extremities Neuro Narrative: lethargic, somnolent Assessment & Plan Assessment/Plan (1) Closed pelvic fracture: (2) Fall from slipping: PLAN: Plan #Debililty due to mechanical fall and left pubic rami fracture * PT/OT on board. * Fall precautions * will be nonsurgical management as it is a pubic rami fracture * on oxycodone and tylenol prn * #Hypertension: on amlodipine and atenolol #History of stroke: on aspirin, plavix and statin. DVT prophylaxis: lovenox Disposition: will need placement. Charges/Coding Visit Charges OBSV E&M: 70434 Subsequent observation care L2
[2022-06-10] MEDS: Atorvastatin Calcium 10 MG Tablet PO (21:25)
[2022-06-11 03:00] VITALS: BP 151/67; PULSE 65; RESP 20; TEMP 36.8; O2SAT 95
[2022-06-11] MEDS: Acetaminophen 500 MG Tablet 1000 MG PO ×2 (05:12→21:11)
[2022-06-11 05:54] LABS: Absolute Lymphocyte Count 3.31 X10^3/uL (0.83-4.51); Absolute Neutrophil Count 2.6 X10^3/uL (2.0-7.7); Basophil% 1.4 % (0-1); Eosinophils% 9.5 % (0-5); Hemoglobin 9.9 g/dL (12.0-15.0); Lymphocyte # 3.31 X10^3/ul (0.83-4.51); Lymphocyte % 44.9 % (19-41); Mean Corp Hgb Conc 31.9 g/dL (32-36); Mean Corpuscular Hgb 29.5 pg (27.0-32.0); Mean Corpuscular Volume 92.3 fL (81-99); Mean Platelet Vol. 10.7 fl (6.2-12.0); Monocyte# 0.63 X10^3/uL; Monocyte% 8.5 % (0-10); NRBC Flagged by Analyzer 0 % (0-5); Neutrophil # 2.61 X10^3/uL (2.7-7.7); Neutrophil % 35.4 % (47-70); Platelet Count 170 K/mm3 (150-450); RBC Distribution Width CV 14.1 % (11.6-14.6); RBC Distribution Width SD 47.7 fl (35.1-43.9); Red Blood Count 3.36 M/mm3 (4.2-5.4); White Blood Count 7.4 K/mm3 (4.4-11.0)
[2022-06-11 06:27] LABS: Anion Gap 5 (5-15); BUN 23 mg/dL (7-18); Calcium,Total 8.8 mg/dL (8.5-10.1); Chloride 109 mmol/L (98-107); Creatinine, Serum 0.82 mg/dL (0.55-1.02); EST Glomerular Filtration Rate 71 mL/min (>60); Est Glom Filt Rate - Afr Amer 85 mL/min (>60); Estimated Creatinine Clearance 47.81 ml/min; Glucose 98 mg/dL (74-106); Potassium 4.2 mmol/L (3.5-5.1); Sodium Level 138 mmol/L (136-145)
[2022-06-11 07:46] VITALS: O2SAT 95
[2022-06-11 08:02] LABS: Vitamin D,25 Hydroxy 44.2 ng/mL
[2022-06-11] MEDS: Aspirin 81 MG TAB.CHEW PO (08:37)
--- NOTE | 2022-06-11 08:52 | CASEMGMT ---
Addendum entered by Melisa Abraham 06/11/22 09:22: SW went back in to patient's room. She wanted scrambled eggs. VICKY called kitchen and ordered scrambled eggs for patient. VICKY then sat down with patient and went over the facilities. Patient chose [facility], [facility], and [facility]. VICKY spoke with d/c pre planning advisor Misty and she will send referrals. Await responses and then insurance approval. Plan: SNF pending accepting facility and insurance approval. Melisa OLMSTEAD Original Note: SW went to patient's room this am to see if her son visited and looked at the list. Patient said he did not come in last night. SW told patient SW did talk with her son yesterday and he picked [facility] or the 2 facilities in [place]. Patient said she doesn't want [facility] and [place] is crazy. SW told patient she wanted her son to pick facilities and now she doesn't like any of the ones he picked. SW asked patient if she was going to pick a facility. Patient said sometime today she will look. Patient was getting care from her RN and X RAY TECHNOLOGIST. SW told patient that SW will be back in after the nurse is finished as SW has to get referrals sent out so authorization from insurance can get started. Melisa OLMSTEAD
[2022-06-11 09:00] VITALS: BP 163/96; PULSE 64; RESP 18; TEMP 36.3; O2SAT 94
--- NOTE | 2022-06-11 09:26 | CASEMGMT ---
Discharge Airport Tower Controller Patient no longer wants to go to [facility]. Referral at [facility] was canceled. Misty Dixon/helen Parimutuel Cashier sent over new referral to Florencia at [facility] and Ashli at [facility]. Will follow up. Plan: Waiting acceptance at [facility] vs [facility]. Misty Choe Discharge Airport Tower Controller
--- NOTE | 2022-06-11 10:20 | CASEMGMT ---
VICKY received a return call from patient's daughter, Nikia. SW had called her yesterday when SW could not reach patient's son. Nikia said she heard patient needs to go to a penitentiary. Nikia asked why patient cannot go to [facility]CU and VICKY told her they do not have any beds. Nikia asked if a referral could be sent to [facility] as that is closest for her. VICKY told her SW will check with patient. Melisa OLMSTEAD
--- NOTE | 2022-06-11 10:24 | CASEMGMT ---
Addendum entered by Misty Choe 06/11/22 11:04: [facility] called and accepted patient. Patient picked [facility] instead of [facility]. Florencia at [facility] has start pre-cert. Misty D/helen Button Reclaimer canceled the referral at [facility]. Plan: Waiting pre-cert to go to [facility]. Misty Cohe Discharge Financial Reporting Director Original Note: Discharge Financial Reporting Director Ashli from [facility] called. [facility] has accepted patient. VICKY Vincent notified the patient and the patient would like to wait to see what [facility] has to say. Will follow up. Plan: [facility] waiting acceptance vs [facility] that has accepted. Misty Choe Discharge Financial Reporting Director
--- NOTE | 2022-06-11 10:50 | CASEMGMT ---
Addendum entered by Melisa Abraham 06/11/22 11:14: Misty reza/helen strategic planning specialist did call [facility]. They are full and they are not in network with patient's insurance. Melisa OLMSTEAD Original Note: SW received a return call from patient's daughter, Nikia. SW had called her yesterday when SW could not reach patient's son. Nikia said she heard patient needs to go to a fpc. Nikia asked why patient cannot go to [facility] TCU and VICKY told her they do not have any beds. Nikia asked if a referral could be sent to [facility] as that is closest for her. VICKY told her SW will check with patient. Melisa OLMSTEAD
--- NOTE | 2022-06-11 11:00 | CASEMGMT ---
[facility] patient. VICKY went to patient's room and let her know [facility] and [facility] can accept her. [facility]. VICKY also told patient that her daughter Nikia said she wants her to go to [facility], but they are not in network. SW asked patient if she wants SW to check with her daughter to see if [facility] okay and patient said no. [facility] wants [facility]. Misty d/c pre planning advisor will notify [facility] to start pre-cert. VICKY will check with patient to see if she wants SW to keep her daughter updated or not. VICKY called patient's son Cuong to let him know plan, but his voice mailbox was still full. VICKY did notify him yesterday that it was full. VICKY will continue to try and reach him. Plan: d/c to [facility] pending pre-cert. Melisa OLMSTEAD
--- NOTE | 2022-06-11 11:36 | PN.HOSP_ITS ---
Subjective Subjective Patient seen and examined. SHe was awake and communicative today, eating her breakfast. She complained of mild pain in the suprapubic area, over the site of the pubic rami fracture. Review of systems is otherwise negative. Objective Data Objective Data Vital Signs: Vital Signs Temp Pulse Resp BP Pulse Ox O2 Del Method O2 Flow Rate 97.4 F L 64 18 163/96 H 94 Room Air 3 06/11/22 09:00 06/11/22 09:00 06/11/22 09:00 06/11/22 09:00 06/11/22 09:00 06/11/22 09:06 06/10/22 15:00 Oxygen Flow Rate (L/min) 3 Oxygen Delivery Method Room Air Weight: 171 lb 8.314 oz Body Mass Index (BMI) 27.6 Intake & Output: Intake and Output for Last 24 Hours 06/09/22 06/10/22 06/11/22 23:59 23:59 23:59 Intake Total 900 / 900 50 / 50 Output Total 775 / 775 350 / 350 Balance 125 / 125 -300 / -300 Lab / Micro Data Result Diagrams: 06/11/22 04:55 06/11/22 04:55 Labs: Laboratory Results - last 24 hr 06/11/22 04:55: WBC 7.4, RBC 3.36 L, Hgb 9.9 L, Hct 31.0 L, MCV 92.3, MCH 29.5, MCHC 31.9 L, RDW Std Deviation 47.7 H, RDW Coeff of Taina 14.1, Plt Count 170, MPV 10.7, Immature Gran % (Auto) 0.300, Neut % (Auto) 35.4 L, Lymph % (Auto) 44.9 H, [place] % (Auto) 8.5, Eos % (Auto) 9.5 H, Baso % (Auto) 1.4 H, Absolute Neuts (auto) 2.6, Absolute Lymphs (auto) 3.31, Nucleated RBC % 0 06/11/22 04:55: Sodium 138, Potassium 4.2, Chloride 109 H, Carbon Dioxide 24.0, Anion Gap 5, BUN 23 H, Creatinine 0.82, Estim Creat Clear Calc 47.81, Est GFR (MDRD) Af Amer 85, Est GFR (MDRD) Non-Af 71, BUN/Creatinine Ratio 28.0 H, Glucose 98, Calcium 8.8 06/11/22 04:55: Vitamin D 25-Hydroxy 44.2 Physical Exam Const Constitutional Narrative: alert, oriented, cooperative HEENT head/scalp atraumatic and moist oral mucous membranes Eyes PERRL and EOMs intact bilaterally Neck no lymphadenopathy and supple Resp normal respiratory effort and no retractions Cardio regular rate, regular rhythm, S1 normal heart sound, S2 normal heart sound and no murmurs GI normal to inspection, nondistended, normoactive bowel sounds, soft to palpation and non-tender Extremity normal to inspection, full ROM and no clubbing, cyanosis or edema Neuro oriented x3, CN's II-XII intact bilaterally and moves all extremities Sensorium / Orientation: awake and alert Motor Exam: strength 5/5 throughout Psych affect normal Assessment & Plan Assessment/Plan (1) Closed pelvic fracture: (2) Fall from slipping: PLAN: Plan #Debililty due to mechanical fall and left pubic rami fracture * PT/OT on board. * Fall precautions * conservative management as it is a pubic rami fracture * on oxycodone and tylenol prn * #Hypertension: on amlodipine and atenolol #History of stroke: on aspirin, plavix and statin. DVT prophylaxis: lovenox Disposition: awaiting placement Charges/Coding Visit Charges Inpatient E&M: 37497 Subs Hosp L2
[2022-06-11] MEDS: oxyCODONE 5 MG Tablet PO ×2 (11:53→16:04)
[2022-06-11] MEDS: Acetaminophen 325 MG Tablet 650 MG PO (11:53)
[2022-06-11] MEDS: Cholecalciferol (VIT D3) 25 MCG TABLET (1,000 UNITS) 50 MCG PO (11:54)
[2022-06-11] MEDS: Enoxaparin 40 MG/0.4 ML Syringe SC (11:54)
[2022-06-11] MEDS: Clopidogrel Bisulfate 75 MG Tablet PO (11:55)
[2022-06-11] MEDS: Atenolol 50 MG Tablet PO (11:55)
[2022-06-11] MEDS: 0.9% Saline Lock 10 ML Syringe IV (11:58)
--- NOTE | 2022-06-11 11:58 | CASEMGMT ---
VICKY called [facility] and spoke with Liliane on the coverage line. Patient's top case assembler is Monet Carbajal and her phone number is [phone]. Patient has aide services 27 hours a week from [place] and she has an emergency response button. VICKY also called Monet and left her a voice mail letting her know about patient's admission and d/c plan. Melisa Abraham SENIOR MECHANICAL ESTIMATOR ISHAN
--- NOTE | 2022-06-11 12:15 | CASEMGMT ---
VICKY received a call from Monet at [facility]. She confirmed the d/c plan. Monet asked VICKY more about how patient injured herself. VICKY told her patient slipped in dog urine. Monet said she has had some concerns with patient's living environment that she plans on addressing. Monet asked VICKY to call her when patient is being discharged. Plan: d/c to [facility] pending pre-cert. Melisa OLMSTEAD
[2022-06-11 15:00] VITALS: BP 141/59; PULSE 66; RESP 18; TEMP 36.6; O2SAT 96
--- NOTE | 2022-06-11 15:54 | CASEMGMT ---
VICKY called patient's son, Cuong. VICKY let Cuong know that patient did not want [facility], but she was okay with [facility]. VICKY let Cuong know that [facility] accepted patient and she will go when her insurance approves. VICKY let Cuong know this could take a day or two, but someone will definitely let him know. He thanked VICKY for the update. Plan: [facility] pending insurance approval. Melisa OLMSTEAD
--- NOTE | 2022-06-11 18:11 | NURSING ---
Reviewed charting with Gregg Yun RN
[2022-06-11 20:55] VITALS: BP 150/68; PULSE 60; RESP 18; TEMP 36.6; O2SAT 97
[2022-06-11] MEDS: Atorvastatin Calcium 10 MG Tablet PO (21:11)
[2022-06-12 02:55] VITALS: BP 147/65; PULSE 60; RESP 18; TEMP 36.4; O2SAT 97
[2022-06-12] MEDS: Acetaminophen 500 MG Tablet 1000 MG PO ×2 (05:53→14:18)
[2022-06-12 07:50] VITALS: O2SAT 94
[2022-06-12] MEDS: Aspirin 81 MG TAB.CHEW PO (08:04)
[2022-06-12 09:00] VITALS: BP 138/66; PULSE 65; RESP 16; TEMP 37; O2SAT 97
[2022-06-12] MEDS: Cholecalciferol (VIT D3) 25 MCG TABLET (1,000 UNITS) 50 MCG PO (09:19)
[2022-06-12] MEDS: Clopidogrel Bisulfate 75 MG Tablet PO (09:19)
[2022-06-12] MEDS: Enoxaparin 40 MG/0.4 ML Syringe SC (09:19)
[2022-06-12] MEDS: Atenolol 50 MG Tablet PO (09:20)
--- NOTE | 2022-06-12 10:25 | CASEMGMT ---
Discharge Maintenance Mechanic Helper Misty d/helen access services assistant reached out to [facility]. Florencia is out of the office today. IBRAHIMA at [facility] will be watching for the pre-cert to come through. Misty will continue to follow. Plan[facility] Discharge Maintenance Mechanic Helper
[2022-06-12] MEDS: oxyCODONE 5 MG Tablet PO (11:08)
--- NOTE | 2022-06-12 11:22 | PN.HOSP_ITS ---
Subjective Subjective Patient seen and examined. She complains of some pain from her pubic rami fracture. She says she did work with therapy yesterday because of pain but she is willing to try working with them today. Review of systems otherwise negative. She is awaiting placement. Objective Data Objective Data Vital Signs: Vital Signs Temp Pulse Resp BP Pulse Ox O2 Del Method O2 Flow Rate 98.6 F 65 16 138/66 H 97 Room Air 3 06/12/22 09:00 06/12/22 09:00 06/12/22 09:00 06/12/22 09:00 06/12/22 09:00 06/12/22 09:00 06/10/22 15:00 Oxygen Flow Rate (L/min) 3 Oxygen Delivery Method Room Air Weight: 171 lb 8.314 oz Body Mass Index (BMI) 27.6 Intake & Output: Intake and Output for Last 24 Hours 06/10/22 06/11/22 06/12/22 23:59 23:59 23:59 Intake Total 900 / 900 770 / 1010 340 / 340 Output Total 775 / 775 650 / 650 0 / 0 Balance 125 / 125 120 / 360 340 / 340 Lab / Micro Data Result Diagrams: 06/11/22 04:55 06/11/22 04:55 Physical Exam Const alert, oriented x3 and no apparent distress HEENT head/scalp atraumatic and moist oral mucous membranes Mouth: oral and palatal mucosa normal Eyes PERRL and EOMs intact bilaterally Neck no lymphadenopathy and supple Resp normal respiratory effort, no retractions and no use of accessory muscles Cardio regular rate, regular rhythm, S1 normal heart sound, S2 normal heart sound and no murmurs GI normal to inspection, nondistended, normoactive bowel sounds, soft to palpation and non-tender Extremity normal to inspection, full ROM and no clubbing, cyanosis or edema Neuro oriented x3, CN's II-XII intact bilaterally and moves all extremities Sensorium / Orientation: awake and alert Motor Exam: strength 5/5 throughout Psych affect normal Assessment & Plan Assessment/Plan (1) Closed pelvic fracture: (2) Fall from slipping: PLAN: Plan #Debililty due to mechanical fall and left pubic rami fracture * PT/OT on board. * Fall precautions * conservative management as it is a pubic rami fracture * on oxycodone and tylenol prn * #Hypertension: on amlodipine and atenolol #History of stroke: on aspirin, plavix and statin. DVT prophylaxis: lovenox Disposition: awaiting placement Charges/Coding Visit Charges Inpatient E&M: 55452 Subs Hosp L2
--- NOTE | 2022-06-12 15:06 | CASEMGMT ---
Discharge Supervisor Fabrication Department Misty reza/helen logistics assistant let Florencia at [facility] know that if pre-cert is obtained to please call the floor at [phone]. Green Sheet on chart. Plan: [facility], say pre-cert. Misty Choe Discharge Supervisor Fabrication Department
--- NOTE | 2022-06-12 15:35 | DS.PCM_ITS ---
Providers Date of Admission: 06/10/22 Primary Care Physician: Dr. Linn Will MD Reason For Visit: PELVIC FRACTURE Diagnosis Discharge Diagnosis (1) Closed pelvic fracture: Status: Acute Code(s): S32.9XXA - Fracture of unspecified parts of lumbosacral spine and pelvis, initial encounter for closed fracture (2) Fall from slipping: Status: Acute Code(s): W01.0XXA - Fall on same level from slipping, tripping and stumbling without subsequent striking against object, initial encounter Plan #Debililty due to mechanical fall and left pubic rami fracture * PT/OT on board. * Fall precautions * conservative management as it is a pubic rami fracture * on oxycodone and tylenol prn * #Hypertension: on amlodipine and atenolol #History of stroke: on aspirin, plavix and statin. DVT prophylaxis: lovenox Disposition: awaiting placement Medications at Discharge Home Medications atenolol 50 mg tablet 50 mg PO DAILY blood pressure 01/31/19 atorvastatin 10 mg tablet 10 mg PO DAILY cholesterol 01/31/19 clopidogrel 75 mg tablet 75 mg PO DAILY heart health 01/31/19 loratadine 10 mg tablet 10 mg PO DAILY allergies 01/31/19 omeprazole 20 mg capsule,delayed release 20 mg PO DAILY GERD 01/31/19 potassium chloride 20 mEq tablet,extended release(part/cryst) 20 meq PO BID supplement 09/01/19 albuterol sulfate 90 mcg/actuation aerosol inhaler 1 - 2 puff IH Q4H PRN PRN Wheezing 06/13/20 cholecalciferol (vitamin D3) 25 mcg (1,000 unit) tablet 2,000 unit PO DAILY supplement 06/13/20 melatonin 5 mg tablet 5 mg PO QHS PRN Sleep 09/10/21 oxybutynin chloride 15 mg tablet,extended release 24 hr 10 mg PO DAILY BLADDER 09/10/21 meclizine 25 mg tablet 25 mg PO TID PRN dizziness #30 tabs 09/11/21 furosemide 40 mg tablet 80 mg PO DAILY CHF 12/01/21 nitroglycerin 0.4 mg sublingual tablet 0.4 mg sublingual Q5-15M PRN chest pain #25 tabs 12/01/21 amlodipine 2.5 mg tablet 2.5 mg PO DAILY blood pressure 01/25/22 aspirin 81 mg tablet [address] [facility] 01/25/22 fluticasone 250 mcg-salmeterol 50 mcg/dose blistr powdr for inhalation 1 inh inhalation BID breathing 01/25/22 acetaminophen 500 mg tablet 1,000 mg PO Q8 Pain 01/29/22 tamsulosin 0.4 mg capsule 0.4 mg PO DAILY@1730 30 days #30 caps 02/16/22 isosorbide mononitrate 60 mg tablet,extended release 24 hr 60 mg PO BID Heart #180 tabs 05/12/22 losartan 100 mg tablet 100 mg PO DAILY blood pressure #90 tabs 05/12/22 oxycodone 5 mg tablet 5 mg PO Q4H PRN PRN Pain Score 6-10 3 days #18 tabs 06/12/22 Hospital Course Operations None Procedures None Summary of Care Provided Minutes Spent on Discharge: 45 Hospital Course: Patient is an 86-year-old female with a past medical history as outlined who was admitted through the ED on 06/10/2022 after she slipped and fell. She hit her head and landed on her right hip. She complained of excruciating pain in her right hip and also complained of pain in the head because of the mechanical fall. CT of the brain showed no acute intracranial abnormality. Hip and pelvis x-ray showed right intertrochanteric femoral fracture for which she had had surgery for and there were intact surgical changes. She also had left pubic rami fracture. She was admitted and managed for debility due to left pubic rami fracture. She was placed on pain medication and PT OT was consulted. Management was deemed as conservative. She was skilled as needing acute rehab. Patient was discharged to custodial facility for further rehab on 06/12/2022. She is follow-up with her primary care doctor within 1 to 2 weeks. Patient seen and examined prior to discharge. She had no active complaints and had an uneventful night. Review of systems otherwise negative. Labs and vitals reviewed. Medication reviewed and reconciled. Physical Exam Const alert, oriented x3 and no apparent distress General Appearance: cooperative, comfortable and well kempt Exam Limitations: no limitations HEENT normocephalic, head/scalp atraumatic, hearing grossly normal bilaterally and moist oral mucous membranes Eyes PERRL and EOMs intact bilaterally Neck no lymphadenopathy and supple Resp normal respiratory effort, no retractions and no use of accessory muscles Cardio regular rate, regular rhythm, S1 normal heart sound, S2 normal heart sound and no murmurs GI normal to inspection, nondistended, normoactive bowel sounds, soft to palpation and non-tender Extremity normal to inspection, full ROM and no clubbing, cyanosis or edema Skin no rashes or lesions noted Neuro oriented x3, CN's II-XII intact bilaterally and moves all extremities Sensorium / Orientation: awake and alert Motor Exam: strength 5/5 throughout Psych affect normal Weight / BMI Weight Weight: 171 lb 8.314 oz Body Mass Index (BMI) 27.6 ABG / Lab / Microbiology Data Result Diagrams: 06/11/22 04:55 06/11/22 04:55 D/C Instructions Discharge Diet: Low fat / Low cholesterol Discharge Activity: Return to Normal Activity Weight Bearing Status: Weight bearing as tolerated Call your doctor if you observe: Uncontrolled pain Meaningful Use Info Meaningful Use Diagnoses (Choose all that apply): None applicable Discharge Plan Admission Admit Date/Time: 06/10/22 00:49 Primary Reason for Your Visit: pubic rami fracture due to mechanical fall Attending Provider: Katy Dubon Primary Care Provider: Linn Will Consulting Providers: Mitesh Satna Discharge Orders/Prescriptions Prescriptions: New oxycodone 5 mg Tablet 5 mg PO Q4H PRN PRN (Reason: Pain Score 6-10) 3 Days Qty: 18 0RF Continued furosemide 40 mg tablet 80 mg PO DAILY nitroglycerin 0.4 mg tablet, sublingual 0.4 mg SUBLINGUAL Q5-15M PRN (Reason: chest pain) Qty: 25 3RF atorvastatin 10 MG tablet 10 mg PO DAILY clopidogrel 75 MG tablet 75 mg PO DAILY omeprazole 20 MG capsule 20 mg PO DAILY atenolol 50 MG tablet 50 mg PO DAILY loratadine 10 MG tablet 10 mg PO DAILY potassium chloride 20 mEq tablet,ER particles/crystals 20 meq PO BID albuterol sulfate 90 mcg/actuation HFA aerosol inhaler 1 - 2 puff IH Q4H PRN PRN (Reason: Wheezing) cholecalciferol (vitamin D3) 1,000 UNIT tablet 2,000 unit PO DAILY oxybutynin chloride 15 mg tablet extended release 24hr 10 mg PO DAILY melatonin 5 mg Tablet 5 mg PO QHS PRN (Reason: Sleep) meclizine 25 mg tablet 25 mg PO TID PRN (Reason: dizziness) Qty: 30 1RF fluticasone propion-salmeterol 250-50 mcg/dose Blister With Device 1 inh INHALATION BID amlodipine 2.5 mg Tablet 2.5 mg PO DAILY Hold Instructions: Until otherwise instructed aspirin 81 mg Tablet 81 mg PO DAILY acetaminophen 500 mg tablet 1,000 mg PO Q8 tamsulosin 0.4 mg Capsule 0.4 mg PO DAILY@1730 30 Days Qty: 30 0RF isosorbide mononitrate 60 mg tablet extended release 24 hr 60 mg PO BID Qty: 180 3RF losartan 100 mg tablet 100 mg PO DAILY Qty: 90 3RF Discontinued levofloxacin 250 mg Tablet 250 mg PO DAILY@0600 4 Days Qty: 4 0RF Referrals / Follow Up: Linn Will MD [Primary Care Provider] - Within 2 Weeks Disposition Disposition (needs filled in before D/C Order can be placed): Assisted Facility Charges/Coding Visit Charges Inpatient E&M: 04262 Disch Hosp
--- NOTE | 2022-06-12 15:36 | CASEMGMT ---
Discharge Park Interpretive Ranger Florencia reached out. Pre-cert has been obtained. Patient can go to [facility] when medically ready. VICKY Vincent notified. Misty Choe Discharge Park Interpretive Ranger
--- NOTE | 2022-06-12 15:50 | CASEMGMT ---
Patient was approved for [facility]. SW notified physician, accredited legal secretary, RN, patient, and her son. PASRR completed as patient is observation status. Green sheet on chart to assist staff with discharge. Plan: d/c to [facility] under skilled level of care on a PASRR. Physicians will transport patient. Melisa OLMSTEAD
--- NOTE | 2022-06-12 16:00 | TREXTCAR_ITS ---
Diet Diet Order/Speech Therapy: 06/10/22 06:02 Diet: Cardiac - Heart Healthy Food consistency:: Regular Liquid Consistency:: Regular/Thin Routine Orders/Code Status Enema Type: Fleetz Enema Frequency: Daily PRN Suppository Type: Dulcolax 10mg Suppository Frequency: Daily PRN Therapies Weight Bearing: Toe-touch weight bearing Physical Therapy: Eval and Treat Occupational Therapy: Eval and Treat Problem/Diagnosis (1) Closed pelvic fracture: Status: Acute Code(s): S32.9XXA - Fracture of unspecified parts of lumbosacral spine and pelvis, initial encounter for closed fracture (2) Fall from slipping: Status: Acute Code(s): W01.0XXA - Fall on same level from slipping, tripping and stumbling without subsequent striking against object, initial encounter Plan #Debililty due to mechanical fall and left pubic rami fracture * PT/OT on board. * Fall precautions * conservative management as it is a pubic rami fracture * on oxycodone and tylenol prn * #Hypertension: on amlodipine and atenolol #History of stroke: on aspirin, plavix and statin. DVT prophylaxis: lovenox Disposition: awaiting placement Allergies/Procedures Done in Hospital Allergies adhesive Allergy (Verified 06/09/22 21:41) Rash adhesive tape amitriptyline Allergy (Verified 06/09/22 21:41) CONFUSION codeine Allergy (Verified 06/09/22 21:41) Hives hydrocodone bitartrate [From Vicodin] Allergy (Verified 06/09/22 21:41) Hives Iodinated Contrast Media [Iodinated Contrast Media - IV Dye] Allergy (Verified 06/09/22 21:41) Hives OK WITH PRE-MEDICATION naproxen Allergy (Verified 06/09/22 21:41) Unknown Penicillins Allergy (Verified 06/09/22 21:41) Rash 01/2022: CAN TOLERATE CEPHALOSPORINS phenytoin sodium [From Dilantin] Allergy (Verified 06/09/22 21:41) Hives phenytoin sodium extended [From Dilantin] Allergy (Verified 06/09/22 21:41) Hives silicone Allergy (Verified 06/09/22 21:41) Hives Type of Care/Length of Stay Estimated LOS: Convalescent Care Less Than 30 days Type of Care Needed: Skilled Rehab Potential: Fair Prognosis: Fair Additional Orders/Day of Discharge Day of Discharge: 06/12/22 Discharge Plan Admission Admit Date/Time: 06/10/22 00:49 Primary Reason for Your Visit: pubic rami fracture due to mechanical fall Attending Provider: Katy Dubon Primary Care Provider: Linn Will Consulting Providers: Mitesh Santa Discharge Orders/Prescriptions Prescriptions: New oxycodone 5 mg Tablet 5 mg PO Q4H PRN PRN (Reason: Pain Score 6-10) 3 Days Qty: 18 0RF Continued furosemide 40 mg tablet 80 mg PO DAILY nitroglycerin 0.4 mg tablet, sublingual 0.4 mg SUBLINGUAL Q5-15M PRN (Reason: chest pain) Qty: 25 3RF atorvastatin 10 MG tablet 10 mg PO DAILY clopidogrel 75 MG tablet 75 mg PO DAILY omeprazole 20 MG capsule 20 mg PO DAILY atenolol 50 MG tablet 50 mg PO DAILY loratadine 10 MG tablet 10 mg PO DAILY potassium chloride 20 mEq tablet,ER particles/crystals 20 meq PO BID albuterol sulfate 90 mcg/actuation HFA aerosol inhaler 1 - 2 puff IH Q4H PRN PRN (Reason: Wheezing) cholecalciferol (vitamin D3) 1,000 UNIT tablet 2,000 unit PO DAILY oxybutynin chloride 15 mg tablet extended release 24hr 10 mg PO DAILY melatonin 5 mg Tablet 5 mg PO QHS PRN (Reason: Sleep) meclizine 25 mg tablet 25 mg PO TID PRN (Reason: dizziness) Qty: 30 1RF fluticasone propion-salmeterol 250-50 mcg/dose Blister With Device 1 inh INHALATION BID amlodipine 2.5 mg Tablet 2.5 mg PO DAILY Hold Instructions: Until otherwise instructed aspirin 81 mg Tablet 81 mg PO DAILY acetaminophen 500 mg tablet 1,000 mg PO Q8 tamsulosin 0.4 mg Capsule 0.4 mg PO DAILY@1730 30 Days Qty: 30 0RF isosorbide mononitrate 60 mg tablet extended release 24 hr 60 mg PO BID Qty: 180 3RF losartan 100 mg tablet 100 mg PO DAILY Qty: 90 3RF Discontinued levofloxacin 250 mg Tablet 250 mg PO DAILY@0600 4 Days Qty: 4 0RF Referrals / Follow Up: Linn Will MD [Primary Care Provider] - Within 2 Weeks Disposition Disposition (needs filled in before D/C Order can be placed): [facility]
== END 2022-06-12 15:58 | disposition skilled nursing facility (03) ==
LOC: ED 23:31 → PCU 06-10 05:38
PROVIDERS: Admitting Provider Hospitalist; Emergency Provider Emergency Medicine; PCP Internal Medicine; Visit Provider Student in an Organized Health Care Education/Training Program
DX: S32.592A Other specified fracture of left pubis, initial encounter for closed fracture (principal); S72.141A Displaced intertrochanteric fracture of right femur, initial encounter for closed fracture; J44.9 Chronic obstructive pulmonary disease, unspecified; I50.22 Chronic systolic (congestive) heart failure; I11.0 Hypertensive heart disease with heart failure; E78.5 Hyperlipidemia, unspecified; Z79.02 Long term (current) use of antithrombotics/antiplatelets; R51.9 Headache, unspecified; W01.198A Fall on same level from slipping, tripping and stumbling with subsequent striking against other object, initial encounter; Y93.01 Activity, walking, marching and hiking; Y99.9 Unspecified external cause status; Y92.000 Kitchen of unspecified non-institutional (private) residence as the place of occurrence of the external cause; E55.9 Vitamin D deficiency, unspecified; Z79.899 Other long term (current) drug therapy; Z79.82 Long term (current) use of aspirin; Z79.51 Long term (current) use of inhaled steroids
CPT/HCPCS: 36415; 70450; 73502; 73590; 80048; 82306; 85025; 87811; 96372; 97110; 97162; 97166; 97530; 99218; 99283; A4216; G0378

== ENCOUNTER 2022-10-07 15:28 | Emergency (ER) | payer MEDICARE, MEDICAID, SELFPAY ==
[2022-10-07 15:29] VITALS: BP 153/114; PULSE 65; RESP 18; TEMP 36.4; O2SAT 98; BMI 24.3
--- NOTE | 2022-10-07 15:40 | CT_ITS ---
STUDY: CT BRAIN WITHOUT CONTRAST REASON FOR EXAM: Female, 87 years old. Trauma RADIATION DOSAGE (If Supplied By Facility): CTDIvol = ( 44.99 ) mGy, DLP = ( 829.85 ) mGycm TECHNIQUE: Transaxial CT imaging of the brain was performed without administration of intravenous contrast material. Individualized dose optimization techniques were used for this CT. COMPARISON: No relevant priors. FINDINGS: Normal soft tissue structures. Postsurgical change status post right frontal parietal craniotomy Prominent calcific plaquing of cavernous carotids bilateral vertebral and basilar arteries. 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 Normal basal ganglia and thalami. Normal brainstem. Normal cerebellum. There is no intracranial hemorrhage. There are no findings of an acute ischemic infarction. Postsurgical changes of the orbits. Normal visualized paranasal sinuses. CT/Brain/Head without Contrast IMPRESSION: Atrophy and periventricular white matter ischemic changes. No evidence for acute intracranial hemorrhage Electronically Signed: Shar Smith MD at 16:20 EST ,
--- NOTE | 2022-10-07 15:50 | EX.ED.GENINJ ---
HPI History of Present Illness Chief Complaint: Fall Informant: patient and family Narrative Narrative: Patient fell yesterday trying to get up out of the chair. She landed on the right side of her ribs. She has soreness over there. It hurts to move a little bit. If she takes a very deep breath there is a little soreness. But she is not short of breath. She did hit her head but there is no loss of consciousness. There is no headache. She had on the right side but there are no gold. Of note, she is on Plavix. Patient states this was mechanical fall. She was not lightheaded or dizzy. She has been having falls for a while but this is not really different than others. She did have a pelvic fracture just couple months ago from a fall. She has home therapy set up and has family at home to help her. She has been feeling in her normal state of health. She does not feel ill today. She has had a subdural hematoma in the past. [facility] Medical History Acute cystitis Acute ischemic stroke Adult failure to thrive Allergic rhinitis Angina pectoris Asthma Benign essential HTN Cerebrovascular disease Chronic systolic (congestive) heart failure Closed fracture of right hip Closed head injury Closed pelvic fracture COPD (chronic obstructive pulmonary disease) Decreased level of consciousness Dilatation of aorta Dizziness Edema Encephalopathy Essential hypertension Fall Fall Fall from slipping Fracture of rib Gastroesophageal reflux disease Hallucinations History of stroke HLD (hyperlipidemia) Hypertension Hypokalemia 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 Insomnia Intellectual disability Left hip pain Lethargy Normocytic anemia Overactive bladder Pelvic fracture Shortness of breath Subdural hematoma Urinary incontinence Urinary tract infection Vitamin D deficiency Weakness Home Medications atenolol 50 mg tablet 50 mg PO DAILY blood pressure 01/31/19 [History Last Taken 09/10/21] atorvastatin 10 mg tablet 10 mg PO DAILY cholesterol 01/31/19 [History Last Taken 09/09/21] clopidogrel 75 mg tablet 75 mg PO DAILY heart health 01/31/19 [History Last Taken 09/10/21] loratadine 10 mg tablet 10 mg PO DAILY allergies 01/31/19 [History Last Taken 09/10/21] omeprazole 20 mg capsule,delayed release 20 mg PO DAILY GERD 01/31/19 [History Last Taken 09/10/21] potassium chloride 20 mEq tablet,extended release(part/cryst) 20 meq PO BID supplement 09/01/19 [History Last Taken 09/10/21] albuterol sulfate 90 mcg/actuation aerosol inhaler 1 - 2 puff IH Q4H PRN PRN Wheezing 06/13/20 [History Last Taken 2 Weeks Ago ~08/27/21] cholecalciferol (vitamin D3) 25 mcg (1,000 unit) tablet 2,000 unit PO DAILY supplement 06/13/20 [History Last Taken 09/10/21] melatonin 5 mg tablet 5 mg PO QHS PRN Sleep 09/10/21 [History Last Taken Unknown] oxybutynin chloride 15 mg tablet,extended release 24 hr 10 mg PO DAILY BLADDER 09/10/21 [History Last Taken 09/10/21] meclizine 25 mg tablet 25 mg PO TID PRN dizziness #30 tabs 09/11/21 [Rx Last Taken Unknown] furosemide 40 mg tablet 80 mg PO DAILY CHF 12/01/21 [History Last Taken Unknown] nitroglycerin 0.4 mg sublingual tablet 0.4 mg sublingual Q5-15M PRN chest pain #25 tabs 12/01/21 [Rx Last Taken Unknown] amlodipine 2.5 mg tablet 2.5 mg PO DAILY blood pressure 01/25/22 [History Last Taken Unknown] aspirin 81 mg tablet 81 mg PO DAILY heart health 01/25/22 [History Last Taken Unknown] fluticasone 250 mcg-salmeterol 50 mcg/dose blistr powdr for inhalation 1 inh inhalation BID breathing 01/25/22 [History Last Taken Unknown] acetaminophen 500 mg tablet 1,000 mg PO Q8 Pain 01/29/22 [History Last Taken Unknown] tamsulosin 0.4 mg capsule 0.4 mg PO DAILY@1730 30 days #30 caps 02/16/22 [Rx Last Taken Unknown] isosorbide mononitrate 60 mg tablet,extended release 24 hr 60 mg PO BID Heart #180 tabs 05/12/22 [Rx Last Taken Unknown] losartan 100 mg tablet 100 mg PO DAILY blood pressure #90 tabs 05/12/22 [Rx Last Taken Unknown] oxycodone 5 mg tablet 5 mg PO Q4H PRN PRN Pain Score 6-10 3 days #18 tabs 06/12/22 [Rx Last Taken Unknown] Allergy/AdvReac Type Severity Reaction Status Date / Time adhesive Allergy Rash Verified 10/07/22 15:31 amitriptyline Allergy CONFUSION Verified 10/07/22 15:31 codeine Allergy Hives Verified 10/07/22 15:31 hydrocodone bitartrate Allergy Hives Verified 10/07/22 15:31 [From Vicodin] Iodinated Contrast Media Allergy Hives Verified 10/07/22 15:31 [Iodinated Contrast Media - IV Dye] naproxen Allergy Unknown Verified 10/07/22 15:31 Penicillins Allergy Rash Verified 10/07/22 15:31 phenytoin sodium Allergy Hives Verified 10/07/22 15:31 [From Dilantin] phenytoin sodium extended Allergy Hives Verified 10/07/22 15:31 [From Dilantin] silicone Allergy Hives Verified 10/07/22 15:31 Family History Sister Heart disease Surgical History History of brain surgery History of breast biopsy History of hysterectomy History of umbilical hernia repair S/P ORIF (open reduction internal fixation) fracture (~05/19/15) S/P ORIF (open reduction internal fixation) fracture Social History household members: children and other details: Son. Smoking Status: Never smoker alcohol intake: never substance use type: does not use caffeine: Yes Type: carbonated beverages and coffee ROS ROS ED Constitutional Constitutional ED: Denies chills, fever(s) or sweats Eyes Eyes: Denies blurry vision or change in vision ENT ENT ED: Denies sore throat Cardiovascular Cardiovascular: Denies chest pain, palpitations or racing heartbeat Respiratory/Chest Respiratory/Chest: Reports other Details: 12Soreness of her right ; Denies cough or dyspnea Gastrointestinal Gastrointestinal: Denies nausea or vomiting Genitourinary Genitourinary ED: Denies dysuria or hematuria Musculoskeletal Musculoskeletal: Reports back pain Integumentary Denies rash Neurologic Neurologic: Denies paresthesias Psychiatric Psychiatric: Denies depression Endocrine Endocrinology: Denies polydipsia or polyuria Hematologic/Lymphatic Hematologic/Lymphatic: Reports easy bleeding and easy bruising Allergic/Immunologic Allergic/Immunologic ED: Denies urticaria EXAM Physical Exam Const Vital Signs: 10/07/22 15:29 Temperature 97.5 F L Temperature Source Temporal Pulse Rate 65 Respiratory Rate 18 Blood Pressure 153/114 H Blood Pressure Mean 127 Pulse Ox 98 Oxygen Delivery Method Room Air Positive well nourished and well developed General Appearance ED: well developed and NAD HEENT HEENT Narrative: I do not see any bruising swelling or tenderness on the side or back of her head. She hit the side but there are no gold there at this time. atraumatic Eyes EOMs intact bilaterally Neck full ROM Neck Narrative: No tenderness or pain with range of motion. Chest Wall inspection of chest normal Resp normal respiratory effort Resp Narrative: I see no bruising on the chest wall. There is no subcu air. There is some mild tenderness at the mid and posterior axillary line on the left. I feel no crepitance or motion with deep breaths. Cardio regular rhythm and no murmurs GI normal to inspection, nondistended, normoactive bowel sounds, non-tender and no masses Back/Spine normal to inspection Back/Spine Narrative: Mild tenderness but seems really mostly lateral to the spine rather than on it. But patient has a little trouble differentiating. Extremity normal to inspection Extremity Narrative: Extremities are not thin but there is no real pitting edema. No tenderness or pain with motion of upper or lower. Neuro oriented x3 MDM MDM MDM Narrative Medical decision making narrative: X-rays do show fractures seventh and ninth rib on the right. Other images are normal. I talked with patient about this. She states she had fractures on the left side about 6 months ago and she did well with them. I offered pain medicine for pain. She states she wants to take Tylenol only. We discussed hydrocodone oxycodone or tramadol. She states she does not want any of those. She just wants to take Tylenol. She states that works well for her. She also has a girl that comes in and helps who thought she thinks may have a problem with these and she does not want those medicines around. I explained expected course and recovery. We also talked about reasons to return. We also talked about using the incentive spirometer. Patient does have walker at home. Radiography Diagnostic Testing: Clinical Impression(s) from Imaging Studies Brain CT 10/07/22 15:40 IMPRESSION: Atrophy and periventricular white matter ischemic changes. No evidence for acute intracranial hemorrhage Electronically Signed: Shar Smith MD at 16:20 EST Reading Location ID and State: [facility] / [place] , Service support , Ribs w/Chest X-Ray 10/07/22 16:00 IMPRESSION: RIBS: Acute displaced fractures of the right seventh and ninth ribs CHEST: Elevated right hemidiaphragm and minor basilar atelectasis. Electronically Signed: Shar Smith MD at 16:42 EST Reading Location ID and State: [facility] / [place] , Service support , Thoracic Spine X-Ray 10/07/22 16:00 IMPRESSION: Scoliosis deformity and degenerative change. Multiple mild chronic compression fractures possibly chronic. However if strong clinical suspicion for acute fracture CT or MRI recommended for further evaluation Electronically Signed: Shar Smith MD at 16:45 EST Reading Location ID and State: [facility] / [place] , Service support , X-rays of the chest and ribs do show fracture of the seventh and ninth rib on the right. No sign of thoracic fracture. CT scan shows no acute process. Discharge Plan Triage Chief Complaint: Fall ED Provider: Tal Cr Dx/Rx/DC Orders Clinical Impression: Right rib fracture, Fall at home Instructions: ED Rib Fracture Prescriptions: No Action furosemide 40 mg tablet 80 mg PO DAILY nitroglycerin 0.4 mg tablet, sublingual 0.4 mg SUBLINGUAL Q5-15M PRN (Reason: chest pain) Qty: 25 3RF atorvastatin 10 MG tablet 10 mg PO DAILY clopidogrel 75 MG tablet 75 mg PO DAILY omeprazole 20 MG capsule 20 mg PO DAILY atenolol 50 MG tablet 50 mg PO DAILY loratadine 10 MG tablet 10 mg PO DAILY potassium chloride 20 mEq tablet,ER particles/crystals 20 meq PO BID albuterol sulfate 90 mcg/actuation HFA aerosol inhaler 1 - 2 puff IH Q4H PRN PRN (Reason: Wheezing) cholecalciferol (vitamin D3) 1,000 UNIT tablet 2,000 unit PO DAILY oxybutynin chloride 15 mg tablet extended release 24hr 10 mg PO DAILY melatonin 5 mg Tablet 5 mg PO QHS PRN (Reason: Sleep) meclizine 25 mg tablet 25 mg PO TID PRN (Reason: dizziness) Qty: 30 1RF fluticasone propion-salmeterol 250-50 mcg/dose Blister With Device 1 inh INHALATION BID amlodipine 2.5 mg Tablet 2.5 mg PO DAILY Hold Instructions: Until otherwise instructed aspirin 81 mg Tablet 81 mg PO DAILY acetaminophen 500 mg tablet 1,000 mg PO Q8 tamsulosin 0.4 mg Capsule 0.4 mg PO DAILY@1730 30 Days Qty: 30 0RF oxycodone 5 mg Tablet 5 mg PO Q4H PRN PRN (Reason: Pain Score 6-10) 3 Days Qty: 18 0RF isosorbide mononitrate 60 mg tablet extended release 24 hr 60 mg PO BID Qty: 180 3RF losartan 100 mg tablet 100 mg PO DAILY Qty: 90 3RF Primary Care Provider: Linn Will Referrals: Linn Will MD [Primary Care Provider] - 1 Week if not improving Disposition Disposition: Home, Self Care
--- NOTE | 2022-10-07 16:00 | RAD_ITS ---
STUDY: X-RAY - UNILATERAL RIBS ( RIGHT ) WITH CHEST REASON FOR EXAM: Female, 87 years old. Trauma TECHNIQUE - RIBS: 2 view(s) of the ribs. TECHNIQUE - CHEST: AP portable COMPARISON: None. FINDINGS - RIBS: There are acute fractures of the axillary aspect of the right ninth and seventh ribs with separation of fracture fragments. FINDINGS - CHEST: Elevated right hemidiaphragm and minor basilar atelectasis.. Tiny calcified granuloma in right upper lobe There is no demonstrated pleural abnormality. Heart is enlarged.. Normal mediastinum and [place]. Normal visualized pulmonary arteries. Tortuous calcified aortic arch and descending thoracic aorta. Normal visualized thoracic spine. Normal visualized ribs, clavicles, and shoulders. There is no demonstrated abnormality of the visualized soft tissue structures of the upper abdomen. RAD/Ribs Uni Min 3V w/PA Chest IMPRESSION: RIBS: Acute displaced fractures of the right seventh and ninth ribs CHEST: Elevated right hemidiaphragm and minor basilar atelectasis. Electronically Signed: Shar Smith MD at 16:42 EST ,
--- NOTE | 2022-10-07 16:00 | RAD_ITS ---
STUDY: X-RAY - THORACIC SPINE REASON FOR EXAM: Female, 87 years old. Trauma TECHNIQUE: 3 view(s) of the thoracic spine were obtained. COMPARISON: None. FINDINGS: Normal kyphosis of the thoracic spine. Moderate levoscoliosis or splinting of the spine possibly secondary to muscle spasm. There is multilevel disc space height narrowing and endplate spurring. There are compression fractures of the mid thoracic spine without well-defined fracture lines possibly chronic. No definitive evidence for acute fracture The soft tissue structures are unremarkable RAD/Thoracic Spine 3 Views IMPRESSION: Scoliosis deformity and degenerative change. Multiple mild chronic compression fractures possibly chronic. However if strong clinical suspicion for acute fracture CT or MRI recommended for further evaluation Electronically Signed: Shar Smith MD at 16:45 EST ,
[2022-10-07] MEDS: Acetaminophen 500 MG Tablet PO (18:31)
== END 2022-10-07 18:33 | disposition home or self-care (01) ==
PROVIDERS: Emergency Provider Emergency Medicine; PCP Internal Medicine; Visit Provider Emergency Medicine
DX: S22.31XA Fracture of one rib, right side, initial encounter for closed fracture (principal); J44.9 Chronic obstructive pulmonary disease, unspecified; I11.0 Hypertensive heart disease with heart failure; I50.22 Chronic systolic (congestive) heart failure; E78.5 Hyperlipidemia, unspecified; W19.XXXA Unspecified fall, initial encounter
CPT/HCPCS: 70450; 71101; 72072; 99282

== ENCOUNTER → 2023-02-17 | Outpatient (CLI) | payer MEDICARE, MEDICAID, SELFPAY ==
[2023-02-17 18:19] LABS: Hematocrit 35.6 % (37-47); Hemoglobin 11.5 g/dL (12.0-15.0); Mean Corp Hgb Conc 32.3 g/dL (32-36); Mean Corpuscular Hgb 30.6 pg (27.0-32.0); Mean Corpuscular Volume 94.7 fL (81-99); Mean Platelet Vol. 9.5 fl (6.2-12.0); Platelet Count 426 K/mm3 (150-450); RBC Distribution Width CV 12.5 % (11.6-14.6); RBC Distribution Width SD 43.4 fl (35.1-43.9); Red Blood Count 3.76 M/mm3 (4.2-5.4); White Blood Count 11.9 K/mm3 (4.4-11.0)
[2023-02-17 18:48] LABS: Anion Gap 7 (5-15); BUN 20 mg/dL (7-18); BUN/Creat Ratio 19.2 RATIO (10-20); Calcium,Total 9.2 mg/dL (8.5-10.1); Chloride 104 mmol/L (98-107); Creatinine, Serum 1.04 mg/dL (0.55-1.02); EST Glomerular Filtration Rate 54 mL/min (>60); Est Glom Filt Rate - Afr Amer 65 mL/min (>60); Glucose 119 mg/dL (74-106); Potassium 3.9 mmol/L (3.5-5.1); Sodium Level 135 mmol/L (136-145)
== END | disposition home or self-care (01) ==
LOC: MTLAB 16:43
PROVIDERS: PCP Internal Medicine; Referring Provider Urology; Visit Provider Urology
DX: R39.12 Poor urinary stream (principal)
CPT/HCPCS: 36415; 80048; 85027

== ENCOUNTER 2023-03-12 13:37 | Emergency (ER) | payer MEDICARE, MEDICAID, SELFPAY ==
[2023-03-12 13:38] VITALS: BP 150/66; PULSE 66; RESP 18; TEMP 36.2; O2SAT 97
--- NOTE | 2023-03-12 14:44 | EX.ED.DYSGE1 ---
HPI History of Present Illness Chief Complaint: Dizziness Narrative Narrative: 87-year-old female here for dizziness, nausea vomiting. States she is recently started on doxycycline for sinus infection for which has been taking. She was discharged doxycycline she developed nausea vomiting and dizziness. She notes couple episodes of nonbloody nonbilious vomitus. Denies abdominal pain to me. Denies any chest pain. Denies any fevers. Notes chronic diarrhea but no new diarrhea. Denies any focal numbness weakness or loss of sensation. Denies any slurred speech or difficulty swallowing. [facility] Medical History Acute cystitis Acute ischemic stroke Adult failure to thrive Allergic rhinitis Angina pectoris Asthma Benign essential HTN Cerebrovascular disease Chronic systolic (congestive) heart failure Closed fracture of right hip Closed head injury Closed pelvic fracture COPD (chronic obstructive pulmonary disease) Decreased level of consciousness Dilatation of aorta Dizziness Edema Encephalopathy Essential hypertension Fall Fall Fall from slipping Fracture of rib Gastroesophageal reflux disease Hallucinations History of stroke HLD (hyperlipidemia) Hypertension Hypokalemia 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 Insomnia Intellectual disability Left hip pain Lethargy Normocytic anemia Overactive bladder Pelvic fracture Shortness of breath Subdural hematoma Urinary incontinence Urinary tract infection Vitamin D deficiency Weakness Home Medications atenolol 50 mg tablet 50 mg PO DAILY blood pressure 01/31/19 [History Last Taken 09/10/21] atorvastatin 10 mg tablet 10 mg PO DAILY cholesterol 01/31/19 [History Last Taken 09/09/21] clopidogrel 75 mg tablet 75 mg PO DAILY heart health 01/31/19 [History Last Taken 09/10/21] loratadine 10 mg tablet 10 mg PO DAILY allergies 01/31/19 [History Last Taken 09/10/21] omeprazole 20 mg capsule,delayed release 20 mg PO DAILY GERD 01/31/19 [History Last Taken 09/10/21] potassium chloride 20 mEq tablet,extended release(part/cryst) 20 meq PO BID supplement 09/01/19 [History Last Taken 09/10/21] albuterol sulfate 90 mcg/actuation aerosol inhaler 1 - 2 puff IH Q4H PRN PRN Wheezing 06/13/20 [History Last Taken 2 Weeks Ago ~08/27/21] cholecalciferol (vitamin D3) 25 mcg (1,000 unit) tablet 2,000 unit PO DAILY supplement 06/13/20 [History Last Taken 09/10/21] melatonin 5 mg tablet 5 mg PO QHS PRN Sleep 09/10/21 [History Last Taken Unknown] oxybutynin chloride 15 mg tablet,extended release 24 hr 10 mg PO DAILY BLADDER 09/10/21 [History Last Taken 09/10/21] meclizine 25 mg tablet 25 mg PO TID PRN dizziness #30 tabs 09/11/21 [Rx Last Taken Unknown] furosemide 40 mg tablet 80 mg PO DAILY CHF 12/01/21 [History Last Taken Unknown] nitroglycerin 0.4 mg sublingual tablet 0.4 mg sublingual Q5-15M PRN chest pain #25 tabs 12/01/21 [Rx Last Taken Unknown] amlodipine 2.5 mg tablet 2.5 mg PO DAILY blood pressure 01/25/22 [History Last Taken Unknown] aspirin 81 mg tablet 81 mg PO DAILY heart health 01/25/22 [History Last Taken Unknown] fluticasone 250 mcg-salmeterol 50 mcg/dose blistr powdr for inhalation 1 inh inhalation BID breathing 01/25/22 [History Last Taken Unknown] acetaminophen 500 mg tablet 1,000 mg PO Q8 Pain 01/29/22 [History Last Taken Unknown] tamsulosin 0.4 mg capsule 0.4 mg PO DAILY@1730 30 days #30 caps 02/16/22 [Rx Last Taken Unknown] isosorbide mononitrate 60 mg tablet,extended release 24 hr 60 mg PO BID Heart #180 tabs 05/12/22 [Rx Last Taken Unknown] losartan 100 mg tablet 100 mg PO DAILY blood pressure #90 tabs 05/12/22 [Rx Last Taken Unknown] oxycodone 5 mg tablet 5 mg PO Q4H PRN PRN Pain Score 6-10 3 days #18 tabs 06/12/22 [Rx Last Taken Unknown] Allergy/AdvReac Type Severity Reaction Status Date / Time adhesive Allergy Rash Verified 03/12/23 13:42 amitriptyline Allergy CONFUSION Verified 03/12/23 13:42 codeine Allergy Hives Verified 03/12/23 13:42 hydrocodone bitartrate Allergy Hives Verified 03/12/23 13:42 [From Vicodin] Iodinated Contrast Media Allergy Hives Verified 03/12/23 13:42 [Iodinated Contrast Media - IV Dye] naproxen Allergy Unknown Verified 03/12/23 13:42 Penicillins Allergy Rash Verified 03/12/23 13:42 phenytoin sodium Allergy Hives Verified 03/12/23 13:42 [From Dilantin] phenytoin sodium extended Allergy Hives Verified 03/12/23 13:42 [From Dilantin] silicone Allergy Hives Verified 03/12/23 13:42 Family History Sister Heart disease Surgical History History of brain surgery History of breast biopsy History of hysterectomy History of umbilical hernia repair S/P ORIF (open reduction internal fixation) fracture (~05/19/15) S/P ORIF (open reduction internal fixation) fracture Social History household members: children and other details: Son. Smoking Status: Never smoker alcohol intake: never substance use type: does not use caffeine: Yes Type: carbonated beverages and coffee ROS ROS ED ROS Narrative Constitutional: Denies fever HEENT: Denies sore throat Neck: Denies neck pain Cardiovascular: Denies chest pain, syncope Respiratory: Denies shortness of breath GI: Endorses nausea vomiting : Denies changes in urinary habits Musculoskeletal: Denies muscle or joint pain Neurologic: Denies numbness weakness or loss of sensation, endorses dizziness Skin denies rash EXAM Physical Exam Narrative Exam Narrative: Nursing triage notes reviewed, Vital signs reviewed Constitutional: please see mdm HENT: MMM Eyes: Pupils equal round and reactive to light, Extraocular muscles intact Neck: No stridor, no JVD, full neck ROM Lungs: Clear to auscultation, No wheezing or rales. No increased work of breathing, no conversational dyspnea, no accessory muscle use, no nasal flaring. No respiratory distress noted Heart: Regular rate and rhythm, No murmurs, No rubs and No gallops, 2+ distal pulses (radial, femoral, posterior tibial) in all extremities Abdomen: Soft, diffuse abdominal tenderness but no distention, rigidity, rebound or guarding, no obvious peritoneal signs, no palpable pulsatile abdominal masses, no auscultated abdominal bruit : No CVAT Extremities: No edema Neuro: Alert and oriented x3, neuro exam at baseline, cranial nerves II through XII are intact. No pain with extraocular muscle movement. There is negative test of skew. Normal speech. 5 of 5 strength in upper and lower extremities in flexion extension. Intact sensation to light touch in upper and lower extremity dermatomes. No truncal or extremity ataxia. No dysdiadochokinesia. Gait not directly assessed during my initial evaluation secondary to acuity of condition. 2+ reflexes. No meningeal signs. Negative Babinski. NIH of 0 Skin: No rash or lesions noted Const Vital Signs: 03/12/23 13:38 03/12/23 14:13 03/12/23 16:02 Temperature 97.1 F L Temperature Source Temporal Pulse Rate 66 56 L Respiratory Rate 18 19 H Respiratory Effort Normal Non-Labored Blood Pressure 150/66 H 147/66 H Blood Pressure Mean 94 93 Pulse Ox 97 97 Oxygen Delivery Method Room Air Room Air MDM MDM MDM Narrative Medical decision making narrative: Chief Complaint: Dizziness, nausea vomiting External records reviewed: CT scan of the brain from September 2022 shows postsurgical changes, no ICH, no acute infarct MDM: Patient was hemodynamically stable, afebrile, nontoxic-appearing. Neurologic exam was nonfocal. Abdominal exam had diffuse tenderness. I considered the following differential diagnosis: ICH, mass, CVA, dehydration, electrode normality, arrhythmia, myocardial ischemia I obtained a broad lab and imaging work-up to further elucidate etiology patient complaint. I obtained a CT scan of the head to rule out intracranial abnormalities, signs of mass. I obtained a CT scan of the abdomen pelvis rule out acute intra-abdominal pathology. I treated the patient's nausea with Zofran, resuscitated patient 1 L normal saline. Labs images were remarkable for Factors affecting care: History of brain surgery Social determinants of health: Elderly History obtained from others: Shared decision making: I will have a discussion with the patient and or visitors regarding risk/benefits of further testing or admission. They will be made aware of of the risk/benefits inherent in this decision they will be given the opportunity to voice understanding. Consults: Lab Data Attestation: I reviewed the patient's lab results. Lab results narrative: EKG with normal sinus rhythm, left axis deviation, prolonged QT, anterior lateral T wave inversions. BMP without evidence of significant electrolyte abnormalities, no anion gap, no acute kidney injury. Troponin is negative, no evidence of myocardial ischemia Lipase is wnl indicating no pancreatic inflammation. Labs: Laboratory Results - last 24 hr 03/12/23 03/12/23 15:19 15:19 WBC Cancelled Corrected WBC Cancelled RBC Cancelled Hgb Cancelled Hct Cancelled MCV Cancelled MCH Cancelled MCHC Cancelled RDW Std Deviation Cancelled RDW Coeff of [place] Cancelled Plt Count Cancelled MPV Cancelled Immature Gran % (Auto) Cancelled Neut % (Auto) Cancelled Lymph % (Auto) Cancelled [place] % (Auto) Cancelled Eos % (Auto) Cancelled Baso % (Auto) Cancelled Absolute Neuts (auto) Cancelled Absolute Lymphs (auto) Cancelled Total Counted Cancelled Neutrophils % (Manual) Cancelled Band Neutrophils % Cancelled Lymphocytes % (Manual) Cancelled Monocytes % (Manual) Cancelled Eosinophils % (Manual) Cancelled Basophils % (Manual) Cancelled Metamyelocytes % Cancelled Myelocytes % Cancelled Promyelocytes % Cancelled Blast Cells % Cancelled Plasma Cell % (Manual) Cancelled Other Cells % Cancelled Nucleated RBC % Cancelled Nucleated RBCs/100 WBC Cancelled Differential Comment Cancelled Diff Path Review Cancelled Hypersegmented Neuts Cancelled Atypical Lymphocytes Cancelled Reactive Lymphocytes Cancelled Smudge Cells Cancelled Toxic Granulation Cancelled Toxic Vacuolation Cancelled Dohle Bodies Cancelled Radha Rods Cancelled Platelet Estimate Cancelled Plt Morphology Comment Cancelled RBC Morphology Cancelled Polychromasia Cancelled Hypochromasia Cancelled Poikilocytosis Cancelled Basophilic Stippling Cancelled Anisocytosis Cancelled Microcytosis Cancelled Macrocytosis Cancelled Spherocytes Cancelled Sickle Cells Cancelled Target Cells Cancelled Tear Drop Cells Cancelled Ovalocytes Cancelled Stomatocytes Cancelled [place] Addition Bodies Cancelled [place] Cells Cancelled Bite Cells Cancelled Crenated Cell Cancelled Acanthocytes (Spur) Cancelled Rouleaux Cancelled Schistocytes Cancelled Sodium 138 Potassium 3.8 Chloride 107 Carbon Dioxide 27.0 Anion Gap 4 L BUN 18 Creatinine 0.89 Estim Creat Clear Calc 43.26 Est GFR (MDRD) Af Amer 77 Est GFR (MDRD) Non-Af 64 BUN/Creatinine Ratio 20.1 H Glucose 95 Calcium 9.2 Troponin I High Sens 15 Lipase 27 Radiography Diagnostic Testing: Clinical Impression(s) from Imaging Studies Abdomen/Pelvis CT 03/12/23 15:08 IMPRESSION: 1. No acute abdominal or pelvic abnormality. 2. Diffuse diverticulosis coli. 3. Small hiatal hernia. 4. Mild cardiomegaly. Electronically Signed: Alan Lewis MD at 16:17 EDT , Brain CT 03/12/23 15:08 IMPRESSION: No acute intracranial abnormality. Chronic ischemic changes. Electronically Signed: Alan Lewis MD at 16:10 EDT , Discharge Plan Triage Chief Complaint: Dizziness ED Provider: Fadi Le Dx/Rx/DC Orders Prescriptions: No Action furosemide 40 mg tablet 80 mg PO DAILY nitroglycerin 0.4 mg tablet, sublingual 0.4 mg SUBLINGUAL Q5-15M PRN (Reason: chest pain) Qty: 25 3RF atorvastatin 10 MG tablet 10 mg PO DAILY clopidogrel 75 MG tablet 75 mg PO DAILY omeprazole 20 MG capsule 20 mg PO DAILY atenolol 50 MG tablet 50 mg PO DAILY loratadine 10 MG tablet 10 mg PO DAILY potassium chloride 20 mEq tablet,ER particles/crystals 20 meq PO BID albuterol sulfate 90 mcg/actuation HFA aerosol inhaler 1 - 2 puff IH Q4H PRN PRN (Reason: Wheezing) cholecalciferol (vitamin D3) 1,000 UNIT tablet 2,000 unit PO DAILY oxybutynin chloride 15 mg tablet extended release 24hr 10 mg PO DAILY melatonin 5 mg Tablet 5 mg PO QHS PRN (Reason: Sleep) meclizine 25 mg tablet 25 mg PO TID PRN (Reason: dizziness) Qty: 30 1RF fluticasone propion-salmeterol 250-50 mcg/dose Blister With Device 1 inh INHALATION BID amlodipine 2.5 mg Tablet 2.5 mg PO DAILY Hold Instructions: Until otherwise instructed aspirin 81 mg Tablet 81 mg PO DAILY acetaminophen 500 mg tablet 1,000 mg PO Q8 tamsulosin 0.4 mg Capsule 0.4 mg PO DAILY@1730 30 Days Qty: 30 0RF oxycodone 5 mg Tablet 5 mg PO Q4H PRN PRN (Reason: Pain Score 6-10) 3 Days Qty: 18 0RF isosorbide mononitrate 60 mg tablet extended release 24 hr 60 mg PO BID Qty: 180 3RF losartan 100 mg tablet 100 mg PO DAILY Qty: 90 3RF Primary Care Provider: Linn Will Referrals: Linn Will MD [Primary Care Provider] -
--- NOTE | 2023-03-12 15:08 | CT_ITS ---
EXAM: CT ABDOMEN AND PELVIS WITHOUT INTRAVENOUS CONTRAST CLINICAL INDICATION: Abdominal pain, nausea TECHNIQUE: Helically acquired images were obtained of the abdomen and pelvis without intravenous contrast. This CT exam was performed using one or more of the following dose reduction techniques: automated exposure control, adjustment of the mA and/or kV according to patient size, and/or use of iterative reconstruction technique. This report was created using [employer] report generation technology. COMPARISON: CT Abdomen Pelvis dated 11/06/2017 FINDINGS: LOWER THORAX: Stable mild cardiomegaly. Small hiatal hernia. ABDOMEN: LIVER: Normal. Homogeneous. PANCREAS: Normal. No focal cystic mass. SPLEEN: Normal. Normal size without focal cystic or solid mass. ADRENALS: Normal. No nodules. KIDNEYS AND URETERS: 2.2 cm cystic-appearing mass noted within the upper pole of the right kidney. STOMACH AND BOWEL: Diverticulosis of the colon noted without evidence of acute diverticulitis. PELVIS: APPENDIX: No evidence of acute appendicitis. BLADDER: Normal. REPRODUCTIVE: Uterus is absent. ABDOMEN and PELVIS: INTRAPERITONEAL SPACE: Normal. No ascites or other fluid collection. No free air. BONES/JOINTS: Bilateral femoral neck surgical fixation. Moderate degenerative changes are noted within the spine. SOFT TISSUES: Normal. No discrete abdominal or pelvic wall hernia. VASCULATURE: Normal. Abdominal aorta is non-dilated. LYMPH NODES: Normal. No enlarged lymph nodes. CT/Abdomen/Pelvis without Cont IMPRESSION: 1. No acute abdominal or pelvic abnormality. 2. Diffuse diverticulosis coli. 3. Small hiatal hernia. 4. Mild cardiomegaly. Electronically Signed: Alan Lewis MD at 16:17 EDT ,
--- NOTE | 2023-03-12 15:08 | CT_ITS ---
EXAM: CT HEAD WITHOUT INTRAVENOUS CONTRAST CLINICAL INDICATION: Dizziness, nausea vomiting TECHNIQUE: Multiple axial images were obtained of the head without intravenous contrast. This CT exam was performed using one or more of the following dose reduction techniques: automated exposure control, adjustment of the mA and/or kV according to patient size, and/or use of iterative reconstruction technique. This report was created using [employer] report generation technology. COMPARISON: CT Head dated 10/07/2022 FINDINGS: BRAIN AND EXTRA-AXIAL SPACES: Prominence of the cortical sulci and ventricles related to volume loss change. Stable left frontal cortical infarct. Areas of diminished white matter density noted within both cerebral hemispheres suggestive of chronic microvascular change. No evidence of acute ischemic change. No hemorrhage or mass effect. BONES/JOINTS: Right parietal craniectomy defect again seen. No suspicious lytic or blastic abnormality. SINUSES: No acute sinusitis. MASTOID AIR CELLS: Normal. Clear. ORBITS: Visualized globes, extraocular muscles, optic nerves and retrobulbar fat appear unremarkable. CT/Brain/Head without Contrast IMPRESSION: No acute intracranial abnormality. Chronic ischemic changes. Electronically Signed: Alan Lewis MD at 16:10 EDT ,
[2023-03-12] MEDS: 0.9% Normal Saline 1,000 ML 999 ML IV (15:36)
[2023-03-12] MEDS: Ondansetron 4 MG/2 ML Vial IV (15:37)
[2023-03-12 15:42] VITALS: BMI 27.7
--- NOTE | 2023-03-12 15:51 | EKG12_ITS ---
Test Reason : Blood Pressure : / mmHG Vent. Rate : 060 BPM Atrial Rate : 060 BPM P-R Int : 182 ms QRS Dur : 144 ms QT Int : 486 ms P-R-T Axes : 049 -25 -30 degrees QTc Int : 486 ms Normal sinus rhythm Right bundle branch block Minimal voltage criteria for LVH, may be normal variant ( R in aVL ) T wave abnormality, consider lateral ischemia Abnormal ECG Confirmed by SHARRON LAM, CESILIA ([id number]), film and video editor SAMAN MANUEL ([id number]) on 03/15/2023 11:03:56 AM Referred By: LEONIDES Confirmed By:CESILIA MCDERMOTT MD
[2023-03-12 16:02] VITALS: BP 147/66; PULSE 56; RESP 19; O2SAT 97
[2023-03-12 16:05] LABS: Absolute Lymphocyte Count 3.33 X10^3/uL (0.83-4.51); Absolute Neutrophil Count 3.1 X10^3/uL (2.0-7.7); Basophil# 0.17 X10^3/uL; Basophil% 1.8 % (0-1); Eosinophils% 23.5 % (0-5); Hematocrit 33.9 % (37-47); Hemoglobin 10.7 g/dL (12.0-15.0); Lymphocyte # 3.33 X10^3/ul (0.83-4.51); Lymphocyte % 35.8 % (19-41); Mean Corp Hgb Conc 31.6 g/dL (32-36); Mean Corpuscular Hgb 29.6 pg (27.0-32.0); Mean Corpuscular Volume 93.6 fL (81-99); Mean Platelet Vol. 10.3 fl (6.2-12.0); Monocyte# 0.49 X10^3/uL; Monocyte% 5.3 % (0-10); NRBC Flagged by Analyzer 0 % (0-5); Neutrophil # 3.11 X10^3/uL (2.7-7.7); Neutrophil % 33.4 % (47-70); POSITIVE DIFFERENTIAL YES; Platelet Count 233 K/mm3 (150-450); RBC Distribution Width CV 13.8 % (11.6-14.6); RBC Distribution Width SD 47.4 fl (35.1-43.9); Red Blood Count 3.62 M/mm3 (4.2-5.4); White Blood Count 9.3 K/mm3 (4.4-11.0)
[2023-03-12 16:13] LABS: Anion Gap 4 (5-15); BUN 18 mg/dL (7-18); BUN/Creat Ratio 20.1 RATIO (10-20); Calcium,Total 9.2 mg/dL (8.5-10.1); Chloride 107 mmol/L (98-107); Creatinine, Serum 0.89 mg/dL (0.55-1.02); EST Glomerular Filtration Rate 64 mL/min (>60); Est Glom Filt Rate - Afr Amer 77 mL/min (>60); Estimated Creatinine Clearance 43.26 ml/min; Glucose 95 mg/dL (74-106); Lipase 27 U/L (13-75); Potassium 3.8 mmol/L (3.5-5.1); Sodium Level 138 mmol/L (136-145); Troponin-I HS 15 pg/mL (3.0-54.0)
[2023-03-12] MEDS: levoFLOXacin 750 MG Tablet PO (16:39)
[2023-03-12 16:43] LABS: Differential Comment SCANNED; Differential Indicated SCAN CRITERIA MET; Eosinophil# 2.19 X10^3/uL
[2023-03-12 17:18] VITALS: BP 140/71; PULSE 68; RESP 16
[2023-03-15 11:56] LABS: Pathologist Review Reviewed
== END 2023-03-12 17:18 | disposition home or self-care (01) ==
PROVIDERS: Emergency Provider Emergency Medicine; PCP Internal Medicine; Visit Provider Emergency Medicine
DX: R42 Dizziness and giddiness (principal); I50.22 Chronic systolic (congestive) heart failure; Z79.899 Other long term (current) drug therapy; Z86.73 Personal history of transient ischemic attack (TIA), and cerebral infarction without residual deficits
CPT/HCPCS: 70450; 74176; 80048; 83690; 84484; 85025; 93005; 96361; 96374; 99285; J7030; A4216; J2405

== ENCOUNTER 2023-12-22 12:54 | Emergency (ER) | payer MEDICARE, MEDICAID, SELFPAY ==
[2023-12-22 12:56] VITALS: BP 162/73; PULSE 64; RESP 16; TEMP 37.1; O2SAT 97
[2023-12-22 14:35] LABS: Absolute Lymphocyte Count 2.53 X10^3/uL (0.83-4.51); Basophil# 0.14 X10^3/uL; Basophil% 1.7 % (0-1); Eosinophil# 2.04 X10^3/uL; Eosinophils% 25.1 % (0-5); Hematocrit 38.9 % (37-47); Hemoglobin 12.2 g/dL (12.0-15.0); Lymphocyte # 2.53 X10^3/ul (0.83-4.51); Lymphocyte % 31.1 % (19-41); Mean Corp Hgb Conc 31.4 g/dL (32-36); Mean Corpuscular Volume 92.4 fL (81-99); Mean Platelet Vol. 11.1 fl (6.2-12.0); Monocyte# 0.42 X10^3/uL; Monocyte% 5.2 % (0-10); NRBC Flagged by Analyzer 0 % (0-5); Neutrophil # 2.99 X10^3/uL (2.7-7.7); Neutrophil % 36.8 % (47-70); POSITIVE COUNT YES; POSITIVE DIFFERENTIAL YES; RBC Distribution Width CV 14.3 % (11.6-14.6); Red Blood Count 4.21 M/mm3 (4.2-5.4); White Blood Count 8.1 K/mm3 (4.4-11.0)
--- NOTE | 2023-12-22 14:37 | CT_ITS ---
STUDY: CT ABDOMEN AND PELVIS WITHOUT CONTRAST REASON FOR EXAM: Female, 88 years old. Abdominal pain. RADIATION DOSAGE (If Supplied By Facility): CTDIvol = ( 10.39 ) mGy, DLP = ( 521.67 ) mGycm TECHNIQUE: Transaxial images were obtained from the dome of the diaphragm to the symphysis pubis without oral contrast, and without intravenous contrast. Sagittal and coronal images were reconstructed. Individualized dose optimization techniques were used for this CT. COMPARISON: Comparison is made with prior study March 12, 2023. FINDINGS: The visualized lung bases are unremarkable. Coronary artery calcification. Cardiomegaly. Normal liver. The gallbladder is distended. Normal spleen. Normal pancreas. Normal bilateral adrenal glands. 2 cm cyst in the upper lateral aspect of the right kidney. Normal left kidney. There is a small hiatal hernia. Normal small intestine. There are multiple colonic diverticula consistent with diverticulosis. The appendix is visualized and appears normal. There is diffuse atherosclerotic calcification of the abdominal aorta and its major visceral branches, without a demonstrated aneurysm. Normal inferior vena cava. Normal retroperitoneum. Distended urinary bladder. Cystocele. Normal abdominal wall. There are degenerative changes of the visualized lumbar spine. Minimal anterior listhesis of L4 on L5. There is evidence of prior bilateral intertrochanteric fracture repair. Old fracture of the left superior pubic ramus. CT/Abdomen/Pelvis without Cont IMPRESSION: Gallbladder distention. Sigmoid diverticulosis. Distended urinary bladder and cystocele. Electronically Signed: Artie Chester MD at 15:21 EST ,
--- NOTE | 2023-12-22 14:38 | ED.VIS.GI ---
HPI HPI - GI History of Present Illness Chief Complaint: Abd Pain Detail of Chief Complaint: Abdominal pain Informant: patient Narrative Narrative: Patient presents to the emergency department with complaint of abdominal pain that started 2 or 3 days ago. 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 Patient finished Bactrim for UTI last evening. Patient complaining of discomfort to the left lower quadrant specially with movement. She has had no fever. She denies vomiting. She does describe some continued dysuria. She denies hematuria. Patient has history of chronic diarrhea. Prior surgery includes hysterectomy. No prior history of diverticulitis or kidney stones. [facility] Medical History Acute cystitis Acute ischemic stroke Adult failure to thrive Allergic rhinitis Angina pectoris Asthma Benign essential HTN Cerebrovascular disease Chronic systolic (congestive) heart failure Closed fracture of right hip Closed head injury Closed pelvic fracture COPD (chronic obstructive pulmonary disease) Decreased level of consciousness Dilatation of aorta Dizziness Edema Encephalopathy Essential hypertension Fall Fall Fall from slipping Fracture of rib Gastroesophageal reflux disease Hallucinations History of stroke HLD (hyperlipidemia) Hypertension Hypokalemia 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 Insomnia Intellectual disability Left hip pain Lethargy Normocytic anemia Overactive bladder Pelvic fracture Shortness of breath Subdural hematoma Urinary incontinence Urinary tract infection Vitamin D deficiency Weakness Home Medications atenolol 50 mg tablet 50 mg PO DAILY blood pressure 01/31/19 [History Last Taken 09/10/21] atorvastatin 10 mg tablet 10 mg PO DAILY cholesterol 01/31/19 [History Last Taken 09/09/21] clopidogrel 75 mg tablet 75 mg PO DAILY heart health 01/31/19 [History Last Taken 09/10/21] loratadine 10 mg tablet 10 mg PO DAILY allergies 01/31/19 [History Last Taken 09/10/21] omeprazole 20 mg capsule,delayed release 20 mg PO DAILY GERD 01/31/19 [History Last Taken 09/10/21] potassium chloride 20 mEq tablet,extended release(part/cryst) 20 meq PO BID supplement 09/01/19 [History Last Taken 09/10/21] albuterol sulfate 90 mcg/actuation aerosol inhaler 1 - 2 puff IH Q4H PRN PRN Wheezing 06/13/20 [History Last Taken 2 Weeks Ago ~08/27/21] cholecalciferol (vitamin D3) 25 mcg (1,000 unit) tablet 2,000 unit PO DAILY supplement 06/13/20 [History Last Taken 09/10/21] melatonin 5 mg tablet 5 mg PO QHS PRN Sleep 09/10/21 [History Last Taken Unknown] oxybutynin chloride 15 mg tablet,extended release 24 hr 10 mg PO DAILY BLADDER 09/10/21 [History Last Taken 09/10/21] meclizine 25 mg tablet 25 mg PO TID PRN dizziness #30 tabs 09/11/21 [Rx Last Taken Unknown] furosemide 40 mg tablet 80 mg PO DAILY CHF 12/01/21 [History Last Taken Unknown] nitroglycerin 0.4 mg sublingual tablet 0.4 mg sublingual Q5-15M PRN chest pain #25 tabs 12/01/21 [Rx Last Taken Unknown] amlodipine 2.5 mg tablet 2.5 mg PO DAILY blood pressure 01/25/22 [History Last Taken Unknown] aspirin 81 mg tablet 81 mg PO DAILY heart health 01/25/22 [History Last Taken Unknown] fluticasone 250 mcg-salmeterol 50 mcg/dose blistr powdr for inhalation 1 inh inhalation BID breathing 01/25/22 [History Last Taken Unknown] acetaminophen 500 mg tablet 1,000 mg PO Q8 Pain 01/29/22 [History Last Taken Unknown] tamsulosin 0.4 mg capsule 0.4 mg PO DAILY@1730 30 days #30 caps 02/16/22 [Rx Last Taken Unknown] oxycodone 5 mg tablet 5 mg PO Q4H PRN PRN Pain Score 6-10 3 days #18 tabs 06/12/22 [Rx Last Taken Unknown] doxycycline hyclate 100 mg tablet 100 mg PO BID 03/12/23 [History Last Taken Unknown] levofloxacin 500 mg tablet 500 mg PO DAILY #7 tabs 03/12/23 [Rx Last Taken Unknown] ondansetron 4 mg disintegrating tablet 4 mg PO Q8H PRN PRN Nausea #10 tabs 03/12/23 [Rx Last Taken Unknown] isosorbide mononitrate 60 mg tablet,extended release 24 hr See Rx Instructions .Route .COMPLEX #56 tabs 04/13/23 [Rx Last Taken Unknown] losartan 100 mg tablet See Rx Instructions .Route .COMPLEX #28 tabs 04/13/23 [Rx Last Taken Unknown] Allergy/AdvReac Type Severity Reaction Status Date / Time adhesive Allergy Rash Verified 12/22/23 12:55 amitriptyline Allergy CONFUSION Verified 12/22/23 12:55 codeine Allergy Hives Verified 12/22/23 12:55 hydrocodone bitartrate Allergy Hives Verified 12/22/23 12:55 [From Vicodin] Iodinated Contrast Media Allergy Hives Verified 12/22/23 12:55 [Iodinated Contrast Media - IV Dye] naproxen Allergy Unknown Verified 12/22/23 12:55 Penicillins Allergy Rash Verified 12/22/23 12:55 phenytoin sodium Allergy Hives Verified 12/22/23 12:55 [From Dilantin] phenytoin sodium extended Allergy Hives Verified 12/22/23 12:55 [From Dilantin] silicone Allergy Hives Verified 12/22/23 12:55 Family History Sister Heart disease Surgical History History of brain surgery History of breast biopsy History of hysterectomy History of umbilical hernia repair S/P ORIF (open reduction internal fixation) fracture (~05/19/15) S/P ORIF (open reduction internal fixation) fracture Social History household members: children and other details: Son. Smoking Status: Never smoker alcohol intake: never substance use type: does not use caffeine: Yes Type: carbonated beverages and coffee ROS ROS ED Review of Systems ROS Unobtainable: other Constitutional Constitutional ED: Reports lethargy; Denies chills, fever(s), sweats or weight loss Eyes Eyes: Denies blurry vision, change in vision or diplopia ENT ENT ED: Denies rhinorrhea or sore throat Cardiovascular Cardiovascular: Denies chest pain, orthopnea or racing heartbeat Respiratory/Chest Respiratory/Chest: Denies cough, dyspnea, dyspnea on exertion, orthopnea or sputum Gastrointestinal Gastrointestinal: Reports abdominal pain; Denies diarrhea, nausea or vomiting Genitourinary Genitourinary ED: Reports dysuria; Denies hematuria or urinary frequency Musculoskeletal Musculoskeletal: Denies arthralgias, back pain, myalgias or neck pain Integumentary Denies abscess, Abrasions or rash Neurologic Neurologic: Denies headache(s) or weakness Psychiatric Psychiatric: Denies anxiety, depression or suicidal thoughts Endocrine Endocrinology: Denies polydipsia, polyphagia or polyuria Hematologic/Lymphatic Hematologic/Lymphatic: Denies easy bleeding, easy bruising or lymphadenopathy Allergic/Immunologic Allergic/Immunologic ED: Denies mouth swelling, tongue swelling or urticaria EXAM Physical Exam Const Vital Signs: 12/22/23 12:56 Temperature 98.7 F Temperature Source Temporal Pulse Rate 64 Respiratory Rate 16 Blood Pressure 162/73 H Blood Pressure Mean 102 Pulse Ox 97 Oxygen Delivery Method Room Air Positive well nourished and well developed General Appearance ED: well developed and NAD HEENT Reports TM's clear and moist mucous membranes normocephalic and atraumatic; Negative for trauma or tenderness Tympanic Membrane ED: Yes TM's clear Eyes PERRL and EOMs intact bilaterally General Eye ED: Negative for pale conjunctiva or scleral icterus Neck no lymphadenopathy, supple and no JVD General: Negative for tenderness Chest Wall inspection of chest normal and palpation of chest normal Chest: Negative for tenderness Resp normal respiratory effort and clear to auscultation bilaterally Effort and Inspection: Negative for respiratory distress or pain with movement Auscultation: Negative for rhonchi, wheezes or diminished lung sounds Cardio regular rate, regular rhythm, S1 normal heart sound, S2 normal heart sound and no murmurs Peripheral Pulses: pulses 2+ throughout GI normal to inspection, nondistended, normoactive bowel sounds, soft to palpation, non-distended and no masses GI Narrative: Tenderness palpation over the left lower quadrant and suprapubic region with guarding. There is no rebound, rigidity, or peritoneal signs. Skin is normal without evidence of cellulitis. Back/Spine no CVA tenderness and no thoracic nor lumbar tenderness Extremity normal to inspection General Extremety ED: Negative for edema General Extremity: Negative for edema Neuro oriented x3, CN's II-XII intact bilaterally, no sensory deficits noted and gait normal Sensorium / Orientation: awake, alert, oriented to person, oriented to place and oriented to time Motor Exam: strength 5/5 throughout and strength abnormal Psych mental status grossly normal Skin no rashes or lesions noted and no wounds MDM MDM MDM Narrative Medical decision making narrative: Patient presents with left lower quadrant abdominal pain x 3 days. Recently finished antibiotics for UTI. In the differential would be diverticulitis versus kidney stone versus UTI with Michael. IV line established. Lab workup will be obtained as well as urinalysis. Will obtain a CT scan of the abdomen pelvis without contrast as she has allergy to IV contrast. Lactate level also will be ordered. Patient refused anything for pain currently. CBC with differential count of 8.1 with hemoglobin 12. Chemistries unremarkable. Lactate normal 1.7. CT scan of the abdomen pelvis showed a distended gallbladder however she is not having any pain over that area. No significant abnormalities to the left lower quadrant. At this point she will be discharged to home. Advised to follow-up with her primary care physician within next 5 to 7 days. She is advised to return if worsening pain, fever, vomiting, or condition worsening way. Patient does not want a thing for pain for home. Patient was able to void here without any difficulty as she did have a little bit of a distended bladder on CT. Post void residual via bladder scan was only 100 cc. Lab Data Attestation: I reviewed the patient's lab results. Labs: Laboratory Results - last 24 hr 12/22/23 12/22/23 12/22/23 14:20 14:50 15:40 WBC 8.1 RBC 4.21 Hgb 12.2 Hct 38.9 MCV 92.4 MCH 29.0 MCHC 31.4 L RDW Std Deviation 48.0 H RDW Coeff of [place] 14.3 Plt Count MPV 11.1 Immature Gran % (Auto) 0.100 Neut % (Auto) 36.8 L Lymph % (Auto) 31.1 [place] % (Auto) 5.2 Eos % (Auto) 25.1 H Baso % (Auto) 1.7 H Absolute Neuts (auto) 3.0 Absolute Lymphs (auto) 2.53 Nucleated RBC % 0 Differential Comment Platelet Estimate SLT DEC Sodium 140 Potassium 4.1 Chloride 112 H Carbon Dioxide 25.0 Anion Gap 3 L BUN 18 Creatinine 1.05 H Est GFR (MDRD) Af Amer 64 Est GFR (MDRD) Non-Af 53 L BUN/Creatinine Ratio 17.1 Glucose 100 Lactic Acid 1.7 Calcium 9.5 Total Bilirubin 0.60 AST 22 ALT 17 Alkaline Phosphatase 101 Total Protein 8.1 Albumin 3.4 Globulin 4.7 H Albumin/Globulin Ratio 0.7 L Urine Color Yellow Urine Clarity Clear Urine pH 6.0 Ur Specific [place] 1.015 Urine Protein 15 H Urine Glucose (UA) Normal Urine Ketones Negative Urine Occult Blood 10 H Urine Nitrite Negative Urine Bilirubin Negative Urine Urobilinogen Normal Ur Leukocyte Esterase Negative Urine RBC 0 SEEN Urine WBC 0 SEEN Ur Squamous Epith Cells 0-5 SEEN Urine Bacteria 0 SEEN Urine Mucus 0 SEEN Radiography Diagnostic Testing: Clinical Impression(s) from Imaging Studies Abdomen/Pelvis CT 12/22/23 14:37 IMPRESSION: Gallbladder distention. Sigmoid diverticulosis. Distended urinary bladder and cystocele. Electronically Signed: Artie Chester MD at 15:21 EST , Discharge Plan Triage Chief Complaint: Abd Pain ED Provider: Piotr Kwong Dx/Rx/DC Orders Clinical Impression: Abdominal pain Instructions: ED Abdominal Pain Unkn Cause Fem Prescriptions: No Action furosemide 40 mg tablet 80 mg PO DAILY nitroglycerin 0.4 mg tablet, sublingual 0.4 mg SUBLINGUAL Q5-15M PRN (Reason: chest pain) Qty: 25 3RF atorvastatin 10 MG tablet 10 mg PO DAILY clopidogrel 75 MG tablet 75 mg PO DAILY omeprazole 20 MG capsule 20 mg PO DAILY atenolol 50 MG tablet 50 mg PO DAILY loratadine 10 MG tablet 10 mg PO DAILY potassium chloride 20 mEq tablet,ER particles/crystals 20 meq PO BID albuterol sulfate 90 mcg/actuation HFA aerosol inhaler 1 - 2 puff IH Q4H PRN PRN (Reason: Wheezing) cholecalciferol (vitamin D3) 1,000 UNIT tablet 2,000 unit PO DAILY oxybutynin chloride 15 mg tablet extended release 24hr 10 mg PO DAILY melatonin 5 mg Tablet 5 mg PO QHS PRN (Reason: Sleep) meclizine 25 mg tablet 25 mg PO TID PRN (Reason: dizziness) Qty: 30 1RF fluticasone propion-salmeterol 250-50 mcg/dose Blister With Device 1 inh INHALATION BID amlodipine 2.5 mg Tablet 2.5 mg PO DAILY Hold Instructions: Until otherwise instructed aspirin 81 mg Tablet 81 mg PO DAILY acetaminophen 500 mg tablet 1,000 mg PO Q8 tamsulosin 0.4 mg Capsule 0.4 mg PO DAILY@1730 30 Days Qty: 30 0RF oxycodone 5 mg Tablet 5 mg PO Q4H PRN PRN (Reason: Pain Score 6-10) 3 Days Qty: 18 0RF doxycycline hyclate 100 mg tablet 100 mg PO BID Patient Comments: TAKE 1 TABLET BY MOUTH TWICE DAILY levofloxacin 500 mg tablet 500 mg PO DAILY Qty: 7 0RF ondansetron 4 mg tablet,disintegrating 4 mg PO Q8H PRN PRN (Reason: Nausea) Qty: 10 0RF losartan 100 mg tablet See Rx Instructions .ROUTE .COMPLEX Qty: 28 12RF Dose Instruction: TAKE 1 TABLET BY MOUTH DAILY FOR BLOOD PRESSURE Rx Instructions: TAKE 1 TABLET BY MOUTH DAILY FOR BLOOD PRESSURE isosorbide mononitrate 60 mg tablet extended release 24 hr See Rx Instructions .ROUTE .COMPLEX Qty: 56 12RF Dose Instruction: TAKE 1 TABLET BY MOUTH TWICE A DAY Rx Instructions: TAKE 1 TABLET BY MOUTH TWICE A DAY Primary Care Provider: Linn Will Referrals: Linn Will MD [Primary Care Provider] - 5-7 Days Disposition Disposition: Home, Self Care
[2023-12-22 14:53] LABS: Differential Indicated SCAN CRITERIA MET
[2023-12-22] MEDS: 0.9% Normal Saline (1000mL) 1,000 ML 125 ML IV (14:56)
[2023-12-22 14:57] LABS: ALB/GLOB Ratio 0.7 RATIO (0.9-2.4); AST(SGOT) 22 U/L (15-37); Alanine Aminotransfer ALT/SGPT 17 U/L (13-56); Albumin, Serum 3.4 g/dL (3.2-5.0); Alkaline Phosphatase 101 U/L (45-117); Anion Gap 3 (5-15); BUN 18 mg/dL (7-18); BUN/Creat Ratio 17.1 RATIO (10-20); Calcium,Total 9.5 mg/dL (8.5-10.1); Chloride 112 mmol/L (98-107); Creatinine, Serum 1.05 mg/dL (0.55-1.02); EST Glomerular Filtration Rate 53 mL/min (>60); Est Glom Filt Rate - Afr Amer 64 mL/min (>60); Globulin 4.7 g/dL (2.2-4.2); Glucose 100 mg/dL (74-106); Platelet Estimate SLT DEC (ADEQ); Potassium 4.1 mmol/L (3.5-5.1); Protein, Total 8.1 g/dL (6.4-8.2); Sodium Level 140 mmol/L (136-145)
[2023-12-22 15:23] LABS: Lactic Acid 1.7 mmol/L (0.4-1.9)
[2023-12-22 15:57] LABS: Bacteria 0 SEEN /hpf (None Seen); Mucous, Urine 0 SEEN /hpf (<or=2+); Red Blood Cells-Urine 0 SEEN /hpf (0-5); White Blood Cells 0 SEEN /hpf (0-5)
[2023-12-22 16:00] VITALS: BP 154/71; PULSE 67; RESP 18; O2SAT 97
[2023-12-22 16:03] LABS: Color, Urine Yellow (Yellow); Glucose, Dipstick Normal (Normal); Ketone-Dipstick Negative (Negative); Leukocyte Esterase-Dipstick Negative /ul (Negative); Nitrite-Dipstick Negative (Negative); Occult Blood-Urine 10 /ul (Negative); Protein-Dipstick 15 mg/dl (Negative); Specific Gravity, Urine 1.015 (1.002-1.030); Urine Bilirubin Dipstick Negative (Negative); Urine Clarity Clear (Clear); Urine Urobilinogen Normal (Normal)
[2023-12-22 16:12] LABS: Squamous Epithelial Cells - UA 0-5 SEEN /hpf (5-10)
[2023-12-22 16:37] VITALS: BP 157/74; PULSE 62; RESP 16; O2SAT 97
--- OUTSIDE RECORDS SUMMARY | 2023-12-22 16:47 | XMS RPT_ITS | CCD ---
Author Name Unknown Address [address] [facility] [address] [place] [address] Organization [facility] Care Team Providers Care Coiled Coil Inspector Name Role Phone Suman LAM, Linn Primary Care Provider OLDER, KAYY Attending Unavailable GANTA, LINN Primary Care Unavailable GANTA, LINN Primary Care Unavailable OLDER, KAYY Referring Unavailable GANTA, LINN Primary Care Unavailable OLDER, KAYY Attending Unavailable OLDER, KAYY Attending Unavailable GANTA, LINN Primary Care Unavailable OLDER, KAYY Attending Unavailable GANTA, LINN Primary Care Unavailable OLDER, KAYY Referring Unavailable GANTA, LINN Primary Care Unavailable Allergies Allergy Classification Reported Allergen(s) Allergy Type Date of Onset Reaction(s) Facility (20 sources) Acetaminophen / HYDROcodone; Translations: [HYDROCODONE-ACET AMINOPHEN] Drug Allergy 5 [facility] Work Phone: (20 sources) Amitriptyline; Translations: [AMITRIPTYLINE] Drug Allergy 9 Mental Status Change [facility] (20 sources) Ciprofloxacin; Translations: [CIPROFLOXACIN] Drug Allergy 6 Rash [facility] Work Phone: (20 sources) Codeine; Translations: [CODEINE] Drug Allergy 5 [facility] Work Phone: (20 sources) Iodine; Translations: [IODINE] Drug Allergy 5 Hives [facility] (20 sources) Naproxen; Translations: [NAPROXEN] Drug Allergy 5 [facility] Work Phone: (8 sources) Penicillins; Translations: [PENICILLINS] Drug Allergy 5 [facility] Work Phone: (20 sources) Phenytoin; Translations: [PHENYTOIN SODIUM EXTENDED] Drug Allergy 0 [facility] (20 sources) Adhesive Tape-Silicones; Translations: [ADHESIVE TAPE-SILICONES] Propensity to adverse reactions 8 [facility] Work Phone: (20 sources) arthritis pill [Other] Propensity to adverse reactions 5 [facility] Work Phone: (20 sources) Penicillins Drug Allergy 5 [facility] Work Phone: (1 source) OTHER; Translations: [OTHER] Propensity to adverse reactions (disorder) 5 [facility] Repository Medications Current Medications Medication Drug Class(es) Dates Sig (Normalized) Sig (Original) doxycycline hyclate 100 mg oral tablet (2 sources) Tetracycline-clas s Drug Start: 03-10-2023 End: 03-20-2023 take 1 tablet by mouth twice daily doxycycline (VIBRA-TABS) 100 mg tablet Take 1 tablet by mouth twice daily for 10 days. 20 tablet 0 03/10/2023 03/20/2023 Active Completed/Discontinued Medications Medication Drug Class(es) Dates Sig (Normalized) Sig (Original) [id number] 200 actuat albuterol 0.09 mg/actuat metered dose inhaler (20 sources) beta2-Adrenergic Agonist Start: 08-28-2016 End: 02-18-2022 take 2 puff(s) by inhalation every four hours as needed albuterol HFA (VENTOLIN HFA) 90 mcg/actuation inhaler Indications: Pulmonary emphysema, unspecified emphysema type (HCC) Inhale 2 Puffs as instructed every 4 hours as needed. 3 Inhaler 3 02/19/2022 Active Problems Active Problems Problem Classification Problem Date Documented Date Episodic/Chronic Acute cerebrovascular disease (20 sources) Hematoma of subdural space of neuraxis; Translations: [Subdural hematoma] Onset: 09-22-2009 02-13-2010 Chronic Aortic; peripheral; and visceral artery aneurysms (2 sources) Dilatation of aorta; Translations: [Aortic ectasia, unspecified site] Onset: 11-28-2023 11-28-2023 Chronic Asthma (3 sources) Asthma-chronic obstructive pulmonary disease overlap syndrome; Translations: [Asthma with chronic obstructive pulmonary disease (COPD)] Onset: 11-26-2015 10-07-2022 Chronic Chronic obstructive pulmonary disease and bronchiectasis (20 sources) Pulmonary emphysema; Translations: [Emphysema, unspecified] Onset: 11-26-2015 Chronic Congestive heart failure; nonhypertensive (8 sources) Congestive heart failure; Translations: [Heart failure, unspecified] Onset: 04-15-2023 04-15-2023 Chronic Deficiency and other anemia (20 sources) Iron deficiency anemia due to blood loss; Translations: [Iron deficiency anemia secondary to blood loss (chronic)] Onset: 01-21-2017 01-21-2017 Chronic Disorders of lipid metabolism (20 sources) Hyperlipidemia; Translations: [Hyperlipidemia, unspecified] Onset: 09-18-2015 09-18-2015 Chronic Diverticulosis and diverticulitis (20 sources) Diverticulitis of intestine; Translations: [Diverticulitis of intestine, part unspecified, without perforation or abscess without bleeding] Onset: 01-21-2017 01-21-2017 Chronic Esophageal disorders (20 sources) Gastroesophageal reflux disease; Translations: [Gastro-esophageal reflux disease without esophagitis] 09-09-2010 Chronic Essential hypertension (20 sources) Hypertensive disorder; Translations: [Essential (primary) hypertension] Onset: 05-26-2016 05-26-2016 Chronic Fracture of lower limb (1 source) Fracture of femur; Translations: [Unspecified fracture of right femur, subsequent encounter for closed fracture with routine healing] Episodic Genitourinary symptoms and ill-defined conditions (20 sources) Incontinence; Translations: [Unspecified urinary incontinence] Onset: 11-26-2015 11-26-2015 Chronic Nonspecific chest pain (1 source) Chest pain; Translations: [Chest pain, unspecified] Episodic Nutritional deficiencies (20 sources) Vitamin D deficiency; Translations: [Vitamin D deficiency, unspecified] Onset: 04-03-2013 04-03-2013 Chronic Osteoarthritis (20 sources) Osteoarthritis of multiple joints ; Translations: [Polyosteoarthritis, unspecified] Onset: 05-15-2013 05-15-2013 Chronic Osteoporosis (20 sources) Osteoporosis; Translations: [Age-related osteoporosis without current pathological fracture] Onset: 07-16-2008 07-16-2008 Chronic Other circulatory disease (20 sources) History of cerebrovascular accident; Translations: [Personal history of transient ischemic attack (TIA), and cerebral infarction without residual deficits] Onset: 10-06-2013 10-06-2013 Episodic Other fractures (1 source) Closed fracture of pelvis; Translations: [Fracture of unspecified parts of lumbosacral spine and pelvis, sequela] Episodic Other lower respiratory disease (1 source) Dyspnea; Translations: [Shortness of breath] 11-24-2023 Episodic Other lower respiratory disease (1 source) Shortness of breath; Translations: [Shortness of breath] Onset: 11-24-2023 Episodic Other nervous system disorders (1 source) Impairment of balance; Translations: [Other abnormalities of gait and mobility] Episodic Other screening for suspected conditions (not mental disorders or infectious disease) (2 sources) Oxygen saturation below reference range; Translations: [Abnormal blood-gas level] Onset: 11-24-2023 11-24-2023 Episodic Residual codes; unclassified (1 source) History of clinical finding in subject; Translations: [Personal history of other medical treatment] Episodic Respiratory failure; insufficiency; arrest (adult) (1 source) Dependence on supplemental oxygen; Translations: [Dependence on supplemental oxygen] Chronic Spondylosis; intervertebral disc disorders; other back problems (20 sources) Degeneration of lumbar intervertebral disc; Translations: [Other intervertebral disc degeneration, lumbar region] Onset: 10-06-2013 10-06-2013 Chronic Past or Other Problems Problem Classification Problem Date Documented Date Episodic/Chronic Administrative/social admission (20 sources) Financial problem; Translations: [Problem related to housing and economic circumstances, unspecified] Onset: 11-07-2012 11-07-2012 Episodic Conditions associated with dizziness or vertigo (7 sources) Benign paroxysmal positional vertigo; Translations: [Benign paroxysmal vertigo, bilateral] Onset: 03-10-2023 Episodic Deficiency and other anemia (1 source) Anemia, unspecified; Translations: [Anemia, unspecified type] Onset: 04-15-2023 Episodic Diabetes mellitus without complication (3 sources) Prediabetes; Translations: [Prediabetes] Onset: 04-07-2023 Episodic Fluid and electrolyte disorders (20 sources) Hypokalemia; Translations: [Hypokalemia] Onset: 09-03-2015 09-03-2015 Episodic Genitourinary symptoms and ill-defined conditions (4 sources) Retention of urine; Translations: [Retention of urine, unspecified] Onset: 05-13-2023 Episodic Intracranial injury (15 sources) Hematoma of subdural space of neuraxis; Translations: [Traumatic subdural hemorrhage with loss of consciousness of unspecified duration, initial encounter] Onset: 09-22-2009 02-13-2010 Episodic Other and unspecified benign neoplasm (20 sources) History of polyp of colon; Translations: [Personal history of colonic polyps] Onset: 01-21-2017 01-21-2017 Episodic Other connective tissue disease (20 sources) Recurrent falls ; Translations: [Repeated falls] Onset: 12-06-2016 12-06-2016 Episodic Other diseases of kidney and ureters (1 source) Disorder of kidney and ureter, unspecified; Translations: [Function kidney decreased] Onset: 04-15-2023 Episodic Other injuries and conditions due to external causes (20 sources) H/O: hip fracture; Translations: [Personal history of (healed) traumatic fracture] Onset: 05-03-2017 05-03-2017 Episodic Other upper respiratory infections (2 sources) Acute sinusitis; Translations: [Acute sinusitis, unspecified] Onset: 03-10-2023 Episodic Residual codes; unclassified (20 sources) Edema; Translations: [Edema, unspecified] Onset: 06-02-2007 06-02-2007 Episodic Residual codes; unclassified (20 sources) Memory impairment; Translations: [Other amnesia] Onset: 12-08-2012 12-08-2012 Episodic Residual codes; unclassified (20 sources) Not for resuscitation; Translations: [Do not resuscitate] Onset: 05-03-2015 11-17-2021 Episodic Urinary tract infections (20 sources) Emphysematous cystitis; Translations: [Other cystitis without hematuria] Onset: 12-23-2015 12-23-2015 Episodic Results Test Name Value Interpretation Reference Range Facil ity Vital Signs Date Time Vital Sign Value Performing Clinician Mariam erwin 11-24-2023 16:33-0500 Body weight 82.1 kg Kayy Urban APRN.CNP Work Phone: [facility] 11-24-2023 16:33-0500 Diastolic blood pressure 68 mm[Hg] Kayy Urban APRN.CNP Work Phone: [facility] 11-24-2023 16:33-0500 Heart rate 62 /min Kayy Older BUTTONHOLE FACER.SHAREMILKER Work Phone: [facility] 11-24-2023 16:33-0500 Respiratory rate 16 /min Kayy Older BUTTONHOLE FACER.SHAREMILKER Work Phone: [facility] 11-24-2023 16:33-0500 SaO2% (BldA) [Mass fraction] 95 % Kayy Older BUTTONHOLE FACER.SHAREMILKER Work Phone: [facility] 11-24-2023 16:33-0500 Systolic blood pressure 122 mm[Hg] Kayy Older BUTTONHOLE FACER.SHAREMILKER Work Phone: [facility] 05-13-2023 13:35-0400 Body temperature 97.11 [degF] Kayy Older BUTTONHOLE FACER.SHAREMILKER Work Phone: [facility] 05-13-2023 13:35-0400 Body weight 81.65 kg Kayy Older BUTTONHOLE FACER.SHAREMILKER Work Phone: [facility] 05-13-2023 13:35-0400 Diastolic blood pressure 78 mm[Hg] Kayy Older BUTTONHOLE FACER.SHAREMILKER Work Phone: [facility] 05-13-2023 13:35-0400 Heart rate 62 /min Kayy Older BUTTONHOLE FACER.SHAREMILKER Work Phone: [facility] 05-13-2023 13:35-0400 Respiratory rate 16 /min Kayy Older BUTTONHOLE FACER.SHAREMILKER Work Phone: [facility] 05-13-2023 13:35-0400 SaO2% (BldA) [Mass fraction] 97 % Kayy Older BUTTONHOLE FACER.SHAREMILKER Work Phone: [facility] 05-13-2023 13:35-0400 Systolic blood pressure 142 mm[Hg] Kayy Older BUTTONHOLE FACER.SHAREMILKER Work Phone: [facility] 03-10-2023 14:51-0400 Body weight 80.74 kg Kayy Older BUTTONHOLE FACER.SHAREMILKER Work Phone: [facility] 03-10-2023 14:51-0400 Diastolic blood pressure 74 mm[Hg] Kayy Older BUTTONHOLE FACER.SHAREMILKER Work Phone: [facility] 03-10-2023 14:51-0400 Heart rate 65 /min Kayy Older BUTTONHOLE FACER.SHAREMILKER Work Phone: [facility] 03-10-2023 14:51-0400 Respiratory rate 16 /min Kayy Older BUTTONHOLE FACER.SHAREMILKER Work Phone: [facility] 03-10-2023 14:51-0400 SaO2% (BldA) [Mass fraction] 93 % Kayy Older BUTTONHOLE FACER.SHAREMILKER Work Phone: [facility] 03-10-2023 14:51-0400 Systolic blood pressure 128 mm[Hg] Kayy Older BUTTONHOLE FACER.SHAREMILKER Work Phone: [facility] 08-22-2022 11:10-0400 Body weight 71.22 kg Linn Will MD Work Phone: [facility] 08-22-2022 11:10-0400 Diastolic blood pressure 74 mm[Hg] Linn Will MD Work Phone: [facility] 08-22-2022 11:10-0400 Heart rate 80 /min Linn Will MD Work Phone: [facility] 08-22-2022 11:10-0400 Respiratory rate 16 /min Linn Will MD Work Phone: [facility] 08-22-2022 11:10-0400 Systolic blood pressure 132 mm[Hg] Linn Will MD Work Phone: [facility] 05-21-2022 13:55-0400 Body temperature 97.81 [degF] Sobeida Jansen BUTTONHOLE FACER.SHAREMILKER Work Phone: [facility] 05-21-2022 13:55-0400 Diastolic blood pressure 76 mm[Hg] Sobeida Jansen BUTTONHOLE FACER.SHAREMILKER Work Phone: [facility] 05-21-2022 13:55-0400 Heart rate 72 /min Sobeida Jansen BUTTONHOLE FACER.SHAREMILKER Work Phone: [facility] 05-21-2022 13:55-0400 Respiratory rate 18 /min Sobeida Jansen BUTTONHOLE FACER.SHAREMILKER Work Phone: [facility] 05-21-2022 13:55-0400 SaO2% (BldA) [Mass fraction] 97 % Sobeida Jansen BUTTONHOLE FACER.SHAREMILKER Work Phone: [facility] 05-21-2022 13:55-0400 Systolic blood pressure 128 mm[Hg] Sobeida Jansen BUTTONHOLE FACER.SHAREMILKER Work Phone: [facility] 02-26-2022 13:59-0400 Body weight 82.56 kg Kayy Older BUTTONHOLE FACER.SHAREMILKER Work Phone: [facility] 02-26-2022 13:59-0400 Diastolic blood pressure 66 mm[Hg] Kayy Older BUTTONHOLE FACER.SHAREMILKER Work Phone: [facility] 02-26-2022 13:59-0400 Heart rate 68 /min Kayy Older BUTTONHOLE FACER.SHAREMILKER Work Phone: [facility] 02-26-2022 13:59-0400 SaO2% (BldA) [Mass fraction] 95 % Kayy Older BUTTONHOLE FACER.SHAREMILKER Work Phone: [facility] 02-26-2022 13:59-0400 Systolic blood pressure 122 mm[Hg] Kayy Older BUTTONHOLE FACER.SHAREMILKER Work Phone: [facility] Encounters Encounter Date Encounter Type Care Provider Facility Start: 11-24-2023 End: 11-25-2023 ambulatory KAYY OLDER Facility:[facility] Start: 11-24-2023 End: 11-24-2023 Patient encounter procedure Kayy Older BUTTONHOLE FACER.SHAREMILKER Work Phone: [facility] Plan of Treatment Date Care Activity Detail Author Start: 05-01-2026 DIABETES SCREEN DIABETES SCREEN [facility] Start: 05-01-2026 Diabetes Screening Diabetes Screenin g [facility] Start: 01-02-2025 DIABETES SCREEN DIABETES SCREEN [facility] Start: 05-13-2024 COVID-19 VACCINE (3 - Booster for Pfizer series) COVID-19 VACCINE (3 - Booster for Pfizer series) [facility] Immunizations Immunization Date Immunization Notes Care Provider Fa angelaty 09-11-2021 influenza virus vacc ine, unspecified formulation Linn Will MD Work Phone: [facility] 09-10-2016 influenza, high dose seasonal, preservative-free Linn Will MD Work Phone: [facility] Work Phone: 10-02-2015 pneumococcal conjuga te vaccine, 13 valent Linn Will MD Work Phone: [facility] 09-03-2015 influenza, high dose seasonal, preservative-free Linn Will MD Work Phone: [facility] 08-26-2011 influenza virus vacc ine, unspecified formulation Linn Will MD Work Phone: [facility] 10-24-2010 influenza virus vacc ine, unspecified formulation Linn Will MD Work Phone: [facility] 08-19-2009 influenza virus vacc ine, unspecified formulation Linn Will MD Work Phone: [facility] 10-20-2005 influenza virus vacc ine, unspecified formulation Linn Will MD Work Phone: [facility] Work Phone: 09-22-2004 pneumococcal polysaccharide vaccine, 23 valent Linn Will MD Work Phone: [facility] Work Phone: 11-22-2002 diphtheria and tetan us toxoids, adsorbed for pediatric use Linn Will MD Work Phone: [facility] Work Phone: Payers Date Payer Category Payer Medicare A[employer] MEDICARE A ETNA MEDICARE ASSURE HMO D SNP [id number] 2019-Present [phone] [address] [place] [address] Medicare [id number] 2019 Medicare A[employer] MEDICARE A ETNA MEDICARE ASSURE HMO D SNP [id number] 2019-Present [phone] [address] [place] [address] Medicare [id number] 2019 Medicare [id number] Social History Date Type Detail Facility Start: 08-26-2011 Tobacco smoking stat [facility] Never smoked tobacco [facility] Work Phone: Start: 01-02-2022 End: 04-15-2023 Alcohol intake Current non-drinker of alcohol (finding) [facility] Start: 1935 Sex Assigned At Not on file [facility] Start: 02-07-2022 End: 08-22-2022 Exposure to SARS-CoV-2 (event) Not sure [facility] Work Phone: Start: 08-26-2011 Tobacco use and exposure Smokeless tobacco non-user [facility] Start: 04-14-2023 End: 04-15-2023 History of Social function [facility] Work Phone: Start: 04-14-2023 End: 04-15-2023 Tobacco use panel [facility] Work Phone: Adult Depression Screening Assessment 0 [facility] Work Phone: Clinical Notes 11-26-2015 to 11-24-2023 Kayy Urban APRN.SHAREMILKER - 11/24/2023 4:46 PM ESTTelephone Encounter - Osiel Pelaez Ma - 10/29/2023 2:33 PM ESTTelephone Encounter - Edith Bridges - 10/29/2023 1:23 PM ESTPatient Instructions Note Date & Type Note Facility 11-24-2023 Note HNO ID: [id number] Author: KAYY URBAN APRN.CNP Service: ? Author Type: Nurse Practitioner Type: Progress Notes Filed: 11/28/2023 11:05 Note Text: CC: Patient presents with: Recheck: 6 month follow up HPI Julisa Land is a 88 year old female who presents today for routine follow up. Has had ongoing dizziness for years and known to have equilibrium disorder and vertigo. She reports for the past year has become constant and her meclizine is no longer effective. CT of brain completed less than a year ago for dizziness with only chronic changes. 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 Land indicates that she is feeling well and denies any symptoms referable to elevated blood pressure. Specifically denies headache, chest pain, palpitations, and peripheral edema. Patient denies any side effects of her medication(s) and is compliant with their regimen. She does check BP's away from this office but unsure on the readings. Julisa works out regularly 7 times per week with walking. She watches her diet for sodium, low fat and low cholesterol most of the time. Sees [facility] but has not been seen for a few years. Last 3 Encounter BP Readings: Date: BP: 11/24/2023 122/68 05/13/2023 142/78 04/15/2023 148/78 Asthma and COPD: Is supposed to use oxygen at night but patient denies usage. Does use sometimes during the day when she is short of breath. Per daughter her lips will turn blue before she uses her oxygen and then symptoms improve. This has been occurring for about 6 months. Reports a large amount of coughing when she eats which is chronic for her. REVIEW OF SYSTEMS General: no fevers, no chills, no night sweats, no recurrent infections, and no significant changes in weight Respiratory: See HPI Cardiovascular: no chest pain, no chest pressure, no palpitations, and no swelling Neurologic: No headache, weakness, numbness, tingling, neck stiffness, tremor, vertigo, dizziness, memory loss, syncope. PAST MEDICAL HISTORY Diagnosis Date Anemia 2014 Asthma Renee's palsy age 11 Chronic obstructive pulmonary disease (COPD) (HCC) Congestive heart failure (CHF) (HCC) Diverticulitis of intestine without perforation or abscess without bleeding 12/23/2015 Esophageal reflux Lumbar radiculopathy 10/06/2013 Lumbar spondylosis 10/06/2013 Other and unspecified hyperlipidemia Stroke (HCC) 2012 Subdural hematoma (HCC) 200* Unspecified essential hypertension PAST SURGICAL HISTORY Procedure Laterality Date ABDOMINAL FINE NEEDLE ASPIRATION 01/20/07 U/S FNA left neck LN APPENDECTOMY 1971 during hysterectomy BIOPSY BREAST OPEN INCISIONAL Bx of breast, incisional COLONOSCOPY FLX DX W/COLLJ SPEC WHEN PFRMD 06/21/2001 Colonoscopy COLONOSCOPY FLX DX W/COLLJ SPEC WHEN PFRMD 10/03/15 Colonoscopy COLONOSCOPY FLX DX W/COLLJ SPEC WHEN PFRMD 12/04/15 Colonoscopy COLONOSCOPY FLX DX W/COLLJ SPEC WHEN PFRMD 01/21/2017 Colonoscopy mac CYSTOURETHROSCOPY 10/24/1981 Cystoscopy - stress incontinence ESOPHAGOGASTRODUODENOSCOPY TRANSORAL DIAGNOSTIC 03/09/14 EGD PAST SURGICAL HISTORY OF 05/1974 segmental resection left breast PAST SURGICAL HISTORY OF Left * repair of hip fracture. RPR UMBILICAL HRNA 5 YRS/> REDUCIBLE 07/31/2003 Hernia repair, umbilical >5yr TOTAL ABDOMINAL HYSTERECT W/WO RMVL TUBE OVARY 07/03/1970 Hysterectomy, PRISCILLA, BSO ALLERGIES Adhesive Tape-Silicones, Amitriptyline, Arthritis Pill [Other], Ciprofloxacin, Codeine, Dilantin [Phenytoin Sodium Extended], Ivp Dye [Iodine], Naprosyn [Naproxen], Penicillins, and Vicodin [Hydrocodone-Acetaminophen] MEDICATIONS amLODIPine (NORVASC) 2.5 mg tablet Take 1 tablet by mouth once daily. omeprazole (PRILOSEC) 20 mg capsule Take 1 capsule by mouth once daily. potassium chloride ER (KLOR-CON M20) 20 mEq tablet Take 1 tablet by mouth two times a day. Per Pharmacist, previously written for 1 tablet twice daily. meclizine (ANTIVERT) 25 mg tab Take 1 tablet by mouth every 6 hours as needed (dizziness). atenolol (TENORMIN) 50 mg tablet Take 1 tablet by mouth once daily. furosemide (LASIX) 40 mg tablet Take 2 tablets by mouth once daily. cholecalciferol (VITAMIN D3) 50 mcg (2,000 unit) tablet Take 1 tablet by mouth once daily. atorvastatin (LIPITOR) 10 mg tablet Take 1 tablet by mouth daily at bedtime. clopidogrel (PLAVIX) 75 mg tablet Take 1 tablet by mouth once daily. fluticasone (FLONASE) 50 mcg/actuation nasal spray Use 2 Sprays in each nostril once daily. Rinse mouth after use. loratadine (CLARITIN) 10 mg tablet Take 1 tablet by mouth once daily. nitroglycerin sublingual (NITROQUICK) 0.4 mg SL tablet Dissolve 1 tablet under the tongue as directed. DISSOLVE ONE(1) TABLET UNDER THE TOUNGUE NEEDED FOR CHEST PAIN,EVERY 5 MIN X3 tamsulosin (FLOMAX) 0.4 mg Take 1 capsule by mouth daily at bedtime. albuterol HFA (VENTOLIN HFA) 90 mcg/actuation inhaler Inhale 2 Puffs as in (more content not included)... [facility] 11-24-2023 History of Presen t illness Narrative CC: Patient presents with: Recheck: 6 month follow up HPI Julisa Land is a 88 year old female who presents today for routine follow up. Has had ongoing dizziness for years and known to have equilibrium disorder and vertigo. She reports for the past year has become constant and her meclizine is no longer effective. CT of brain completed less than a year ago for dizziness with only chronic changes. 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 Land indicates that she is feeling well and denies any symptoms referable to elevated blood pressure. Specifically denies headache, chest pain, palpitations, and peripheral edema. Patient denies any side effects of her medication(s) and is compliant with their regimen. She does check BP's away from this office but unsure on the readings. Julisa works out regularly 7 times per week with walking. She watches her diet for sodium, low fat and low cholesterol most of the time. Sees [facility] but has not been seen for a few years. Last 3 Encounter BP Readings: Date: BP: 11/24/2023 122/68 05/13/2023 142/78 04/15/2023 148/78 Asthma and COPD: Is supposed to use oxygen at night but patient denies usage. Does use sometimes during the day when she is short of breath. Per daughter her lips will turn blue before she uses her oxygen and then symptoms improve. This has been occurring for about 6 months. Reports a large amount of coughing when she eats which is chronic for her. REVIEW OF SYSTEMS General: no fevers, no chills, no night sweats, no recurrent infections, and no significant changes in weight Respiratory: See HPI Cardiovascular: no chest pain, no chest pressure, no palpitations, and no swelling Neurologic: No headache, weakness, numbness, tingling, neck stiffness, tremor, vertigo, dizziness, memory loss, syncope. PAST MEDICAL HISTORY Diagnosis Date Anemia 2014 Asthma Renee's palsy age 11 Chronic obstructive pulmonary disease (COPD) (HCC) Congestive heart failure (CHF) (HCC) Diverticulitis of intestine without perforation or abscess without bleeding 12/23/2015 Esophageal reflux Lumbar radiculopathy 10/06/2013 Lumbar spondylosis 10/06/2013 Other and unspecified hyperlipidemia Stroke (HCC) 2012 Subdural hematoma ([facility]) 200* Unspecified essential hypertension PAST SURGICAL HISTORY Procedure Laterality Date ABDOMINAL FINE NEEDLE ASPIRATION 01/20/07 U/S FNA left neck LN APPENDECTOMY 1971 during hysterectomy BIOPSY BREAST OPEN INCISIONAL Bx of breast, incisional COLONOSCOPY FLX DX W/COLLJ SPEC WHEN PFRMD 06/21/2001 Colonoscopy COLONOSCOPY FLX DX W/COLLJ SPEC WHEN PFRMD 10/03/15 Colonoscopy COLONOSCOPY FLX DX W/COLLJ SPEC WHEN PFRMD 12/04/15 Colonoscopy COLONOSCOPY FLX DX W/COLLJ SPEC WHEN PFRMD 01/21/2017 Colonoscopy mac CYSTOURETHROSCOPY 10/24/1981 Cystoscopy - stress incontinence ESOPHAGOGASTRODUODENOSCOPY TRANSORAL DIAGNOSTIC 03/09/14 EGD PAST SURGICAL HISTORY OF 05/1974 segmental resection left breast PAST SURGICAL HISTORY OF Left * repair of hip fracture. RPR UMBILICAL HRNA 5 YRS/> REDUCIBLE 07/31/2003 Hernia repair, umbilical >5yr TOTAL ABDOMINAL HYSTERECT W/WO RMVL TUBE OVARY 07/03/1970 Hysterectomy, PRISCILLA, BSO ALLERGIES Adhesive Tape-Silicones, Amitriptyline, Arthritis Pill [Other], Ciprofloxacin, Codeine, Dilantin [Phenytoin Sodium Extended], Ivp Dye [Iodine], Naprosyn [Naproxen], Penicillins, and Vicodin [Hydrocodone-Acetaminophen] MEDICATIONS amLODIPine (NORVASC) 2.5 mg tablet Take 1 tablet by mouth once daily. omeprazole (PRILOSEC) 20 mg capsule Take 1 capsule by mouth once daily. potassium chloride ER (KLOR-CON M20) 20 mEq tablet Take 1 tablet by mouth two times a day. Per Pharmacist, previously written for 1 tablet twice daily. meclizine (ANTIVERT) 25 mg tab Take 1 tablet by mouth every 6 hours as needed (dizziness). atenolol (TENORMIN) 50 mg tablet Take 1 tablet by mouth once daily. furosemide (LASIX) 40 mg tablet Take 2 tablets by mouth once daily. cholecalciferol (VITAMIN D3) 50 mcg (2,000 unit) tablet Take 1 tablet by mouth once daily. atorvastatin (LIPITOR) 10 mg tablet Take 1 tablet by mouth daily at bedtime. clopidogrel (PLAVIX) 75 mg tablet Take 1 tablet by mouth once daily. fluticasone (FLONASE) 50 mcg/actuation nasal spray Use 2 Sprays in each nostril once daily. Rinse mouth after use. loratadine (CLARITIN) 10 mg tablet Take 1 tablet by mouth once daily. nitroglycerin sublingual (NITROQUICK) 0.4 mg SL tablet Dissolve 1 tablet under the tongue as directed. DISSOLVE ONE(1) TABLET UNDER THE TOUNGUE NEEDED FOR CHEST PAIN,EVERY 5 MIN X3 tamsulosin (FLOMAX) 0.4 mg Take 1 capsule by mouth daily at bedtime. albuterol HFA (VENTOLIN HFA) 90 mcg/actuation inhaler Inhale 2 Puffs as instructed every 4 hours as needed. OXYBUTYNIN CHLORIDE ORAL Take 10 mg by mouth once daily. isosorbide mononitrate ER (IMDUR) 60 mg 24 hr tablet Take 1 tablet by mouth once daily. Cardiology losartan (COZAAR) 100 mg tablet Take 100 mg by mouth once daily. COMPOUNDED PRESCRIPTION DEPENDS/PULL UPS SIZE LARGE 6 TO 8 PACKAGES PER MONTH DX R32, Z74.09, Z86.73 COMPOUNDED PRESCRIPTION Home Modification Evaluation Dx: Balance problem LOPERAMIDE HCL (ANTI-DIARRHEAL, LOPERAMIDE, ORAL) Take by mouth as needed. COMPOUNDED PRESCRIPTION Bed Pads, x 4, washable. DX: CVA, memory impairment, incontinence, impaired mobility COMPOUNDED PRESCRIPTION SESAR HOSE KNEE HIGH LENGTH DX EDEMA R60.0 COMPOUNDED PRESCRIPTION CHUX DISPOSABLE PADS 6 TO 8 PACKS PER MONTH DX R32, Z74.09, Z86.73 FAMILY HISTORY Problem Relation Age of Onset Prostate Cancer Father Cancer Mother Lymph nodes Coronary Artery Disease Mother Heart Mother Stroke Mother Heart Maternal Grandmother Social History Tobacco Use Smoking status: Never Smokeless tobacco: Never Substance Use Topics Alcohol use: No Drug use: No PHYSICAL EXAM BP 122/68 Pulse 62 Resp 16 Wt 82.1 kg (181 lb) SpO2 95% BMI 29.21 kg/m General Appearance: well appearing, in no acute distress, alert Skin: Skin color, texture, turgor normal for age; Eyes: PERRLA, EOM's intact, conjunctiva pink and moist, no icterus, sclera white, non-injected Neck: Thyroid normal size and symmetric without palpable nodules, Neck supple, No adenopathy Lymph nodes: No cervical lymphadenopathy and No supraclavicular lymphadenopathy Lungs: Lungs clear to auscultation. No wheezing, rhonchi, rales. Heart: RRR without murmur, gallop, or rubs. No ectopy Neurological: Gait at baseline with usage of walker. : speech normal, mental status intact Health maintenance reviewed with patient: RSV Vaccine(1 - 1-dose 60+ series) Never done Influenza Vaccine(1) due on 07/23/2023 Covid-19 Vaccine(3 - 2022- season) due on 07/23/2023 Advance Directive Discussion due on 11/22/2023 Depression Assessment due on 11/22/2023 DTaP,Tdap,Td Vaccine(2 - Tdap) due on 05/13/2024 Spirometry due on 05/13/2024 Shingrix Vaccine(1 of 2) due on 05/13/2024 Diabetes Screening due on 05/01/2026 Bone Density Screening Completed Pneumococcal Vaccine: 65+ Completed DATA REVIEWED: No new labs ASSESSMENT/PLAN: 1. Shortness of breath - ICD9: 786.05, ICD10: R06.02 (primary diagnosis) - patient with many chronic conditions that may attribute to this. If oxygen saturation is decreasing then possible cause of increased dizziness. - walking pulse ox without desaturation. - schedule with you cardiology group - will start with chest xray, have her monitor her O2 sat at home, use oxygen 2L as needed for pulse ox less than 92% - go to ER for increased shortness of breath, chest pressure, or any other urgent concern - follow up in 4 weeks or earlier if needed. - XR CHEST 2V FRONTAL/LAT - CBC + DIFF - COMP METABOLIC PANEL - PULSE OXIMETER CONTEC 2. Low oxygen saturation - ICD9: 790.91, ICD10: R79.81 As above - XR CHEST 2V FRONTAL/LAT - CBC + DIFF - COMP METABOLIC PANEL - PULSE OXIMETER CONTEC 3. Pulmonary emphysema, unspecified emphysema type (HCC) - ICD9: 492.8, ICD10: J43.9 See #1 - re-starting advair - FLUTICASONE 250 MCG-SALMETEROL 50 MCG/DOSE BLISTR POWDR FOR INHALATION - PULSE OXIMETER CONTEC 4. Dizziness - ICD9: 780.4, ICD10: R42 See #1 - go to ER for weakness, numbness, difficulty speaking, or other urgent concern 5. H/O: CVA (cerebrovascular accident) - ICD9: V12.54, ICD10: Z86.73 - needs further evaluated at follow up appointment 6. Hypertension, unspecified type - ICD9: 401.9, ICD10: I10 - Controlled - Continue current medications - Recommend home blood pressure monitoring, to bring results to next visit - Encouraged sodium restriction, DASH or Mediterranean diet - Recommend regular aerobic exercise 7. 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 8. Chronic congestive heart failure, unspecified heart failure type (HCC) - ICD9: 428.0, ICD10: I50.9 As above Prescription instructions reviewed with patient as applicable. Potential red flag symptoms discussed with the patient. Reviewed appropriate action plan to take if red flag symptoms occur. Patient agreeable to treatment plan. Kayy Urban APRN.CNP documented in this encounter [facility] 10-29-2023 Miscellaneous Notes STEFAN: 05/13/2023 Last refill: 04/15/2023 QTY: 30 Refills: 5 Patient has been identified by name and date of : Yes Requested Prescriptions Pending Prescriptions Disp Refills amLODIPine (NORVASC) 2.5 mg tablet 30 tablet 5 Sig: Take 1 tablet by mouth once daily. RX INSTRUCTIONS: Patient aware RX will be sent to pharmacy. No need to notify patient. Edith Bridges documented in this encounter [facility] 09-24-2023 Miscellaneous Notes Last seen [employer] 05/13/23. Patient has been identified by name and date of : Yes Requested Prescriptions Pending Prescriptions Disp Refills omeprazole (PRILOSEC) 20 mg capsule 30 capsule 11 Sig: Take 1 capsule by mouth once daily. potassium chloride ER (KLOR-CON M20) 20 mEq tablet 60 tablet 11 Sig: Take 1 tablet by mouth two times a day. Per Pharmacist, previously written for 1 tablet twice daily. RX INSTRUCTIONS: Patient aware RX will be sent to pharmacy. No need to notify patient. Edith Bridges documented in this encounter [facility] 07-07-2023 Miscellaneous Notes Faxed faxed back deferring to Urology. Have form sent to urology or patient will need a visit (can be telephone) to discuss her incontinence. Thank you Kayy Urban APRN.SHAREMILKER Form was completed, OV notes were not sent because patient is seen and treated by Urology therefor OV do not discuss incontinence as noted on form. Allison- [employer]- reports she received 06-04-23 form back for incontinent supplies, but it was not completed and did not come with chart notes. Reports she faxed it back to office requesting the form be completed and faxed back with chart notes. Asking provider to complete the form and fax back to her at the [place] office at fax # [phone] documented in this encounter [facility] 07-06-2023 Miscellaneous Notes Patient has been identified by name and date of : Yes, Provider Dr. Will Date 07/06/23 Time 11:59 am Pharmacy phones for refill(s): Requested Prescriptions Pending Prescriptions Disp Refills atenolol (TENORMIN) 50 mg tablet 30 tablet 11 Sig: Take 1 tablet by mouth once daily. furosemide (LASIX) 40 mg tablet 60 tablet 11 Sig: Take 2 tablets by mouth once daily. Date of last office visit in primary care: 05/13/23 Last 2 Encounter Wt Readings: Date: Wt: 05/13/2023 81.6 kg (180 lb) 04/15/2023 82.6 kg (182 lb) Previous labs/tests for medication: Blood Pressure: BUN (mg/dL) Date Value 05/01/2023 16 01/02/2022 18 Sodium (mmol/L) Date Value 05/01/2023 139 01/02/2022 139 Last 1 Encounter BP Readings: Date: BP: 05/13/2023 142/78 Thank you. Noreen Palencia LPN documented in this encounter [facility] 06-25-2023 Miscellaneous Notes Forms completed and faxed. Allison from [employer] calling because they had faxed a request to Dr. Will's office a few weeks ago regarding pt's incontinence supplies. She states they got the fax back on 06/04. It did not have a cover letter and the form is missing most of the information they need. She states they need a recent office note or something written for medical necessity for the patient, a diagnosis of incontinence and the type of incontinence. Pt's incontinence is so bad that she is going through the supply that is granted through her [employer]. If they get this medical necessity information, pt will be able to get the supplies she needs through insurance and will be able to stop having to pay for the extra supplies out of pocket. Allison is going to re fax a form to the office. Also Allison is going to have the patient call to let us know she is having a lot of incontinence issues and needs more supplies. documented in this encounter [facility] 05-19-2023 Note HNO ID: [id number] Author: Kayy Urban APRN.SHAREMILKER Service: ? Author Type: Nurse Practitioner Type: Progress Notes Filed: 05/19/2023 11:29 AM Note Text: CC: Patient presents with: Medicare Wellness Exam: Annual Medicare HPI Julisa Land is a 87 year old female who presents today for medicare wellness but has concerns with burning with urination she has noticed for a few days. Denies any fever chills, abdominal pain, or shortness of breath. REVIEW OF SYSTEMS General: no fevers, no chills, no night sweats, no recurrent infections, no change in appetite, no change in energy, and no significant changes in weight Respiratory: no cough, no wheezing, no shortness of breath, no hemoptysis Cardiovascular: no chest pain, no chest pressure, no palpitations, and no swelling GI: no nausea vomiting or bowel changes : See HPI PAST MEDICAL HISTORY Diagnosis Date Anemia 2014 Asthma Renee's palsy age 11 Chronic obstructive pulmonary disease (COPD) (HCC) Congestive heart failure (CHF) (HCC) Diverticulitis of intestine without perforation or abscess without bleeding 12/23/2015 Esophageal reflux Lumbar radiculopathy 10/06/2013 Lumbar spondylosis 10/06/2013 Other and unspecified hyperlipidemia Stroke (HCC) 2012 Subdural hematoma (HCC) 200* Unspecified essential hypertension PAST SURGICAL HISTORY Procedure Laterality Date ABDOMINAL FINE NEEDLE ASPIRATION 01/20/07 U/S FNA left neck LN APPENDECTOMY 1972 during hysterectomy BIOPSY BREAST OPEN INCISIONAL Bx of breast, incisional COLONOSCOPY FLX DX W/COLLJ SPEC WHEN PFRMD 06/21/2001 Colonoscopy COLONOSCOPY FLX DX W/COLLJ SPEC WHEN PFRMD 10/03/15 Colonoscopy COLONOSCOPY FLX DX W/COLLJ SPEC WHEN PFRMD 12/04/15 Colonoscopy COLONOSCOPY FLX DX W/COLLJ SPEC WHEN PFRMD 01/21/2017 Colonoscopy mac CYSTOURETHROSCOPY 10/24/1981 Cystoscopy - stress incontinence ESOPHAGOGASTRODUODENOSCOPY TRANSORAL DIAGNOSTIC 03/09/14 EGD PAST SURGICAL HISTORY OF 05/1974 segmental resection left breast PAST SURGICAL HISTORY OF Left * repair of hip fracture. RPR UMBILICAL HRNA 5 YRS/> REDUCIBLE 07/31/2003 Hernia repair, umbilical >5yr TOTAL ABDOMINAL HYSTERECT W/WO RMVL TUBE OVARY 07/03/1970 Hysterectomy, PRISCILLA, BSO ALLERGIES Adhesive Tape-Silicones, Amitriptyline, Arthritis Pill [Other], Ciprofloxacin, Codeine, Dilantin [Phenytoin Sodium Extended], Ivp Dye [Iodine], Naprosyn [Naproxen], Penicillins, and Vicodin [Hydrocodone-Acetaminophen] MEDICATIONS amLODIPine (NORVASC) 2.5 mg tablet Take 1 tablet by mouth once daily. cholecalciferol (VITAMIN D3) 50 mcg (2,000 unit) tablet Take 1 tablet by mouth once daily. atorvastatin (LIPITOR) 10 mg tablet Take 1 tablet by mouth daily at bedtime. meclizine (ANTIVERT) 25 mg tab Take 1 tablet by mouth every 6 hours as needed (dizziness). clopidogrel (PLAVIX) 75 mg tablet Take 1 tablet by mouth once daily. fluticasone (FLONASE) 50 mcg/actuation nasal spray Use 2 Sprays in each nostril once daily. Rinse mouth after use. potassium chloride ER (KLOR-CON M20) 20 mEq tablet Take 1 tablet by mouth twice daily. Per Pharmacist, previously written for 1 tablet twice daily. omeprazole (PRILOSEC) 20 mg capsule Take 1 capsule by mouth once daily. atenolol (TENORMIN) 50 mg tablet Take 1 tablet by mouth once daily. furosemide (LASIX) 40 mg tablet Take 2 tablets by mouth once daily. loratadine (CLARITIN) 10 mg tablet Take 1 tablet by mouth once daily. nitroglycerin sublingual (NITROQUICK) 0.4 mg SL tablet Dissolve 1 tablet under the tongue as directed. DISSOLVE ONE(1) TABLET UNDER THE TOUNGUE NEEDED FOR CHEST PAIN,EVERY 5 MIN X3 tamsulosin (FLOMAX) 0.4 mg Take 1 capsule by mouth daily at bedtime. albuterol HFA (VENTOLIN HFA) 90 mcg/actuation inhaler Inhale 2 Puffs as instructed every 4 hours as needed. OXYBUTYNIN CHLORIDE ORAL Take 10 mg by mouth once daily. isosorbide mononitrate ER (IMDUR) 60 mg 24 hr tablet Take 1 tablet by mouth once daily. Cardiology losartan (COZAAR) 100 mg tablet Take 100 mg by mouth once daily. COMPOUNDED PRESCRIPTION DEPENDS/PULL UPS SIZE LARGE 6 TO 8 PACKAGES PER MONTH DX R32, Z74.09, Z86.73 COMPOUNDED PRESCRIPTION Home Modification Evaluation Dx: Balance problem LOPERAMIDE HCL (ANTI-DIARRHEAL, LOPERAMIDE, ORAL) Take by mouth as needed. COMPOUNDED PRESCRIPTION Bed Pads, x 4, washable. DX: CVA, memory impairment, incontinence, impaired mobility COMPOUNDED PRESCRIPTION SESAR HOSE KNEE HIGH LENGTH DX EDEMA R60.0 COMPOUNDED PRESCRIPTION CHUX DISPOSABLE PADS 6 TO 8 PACKS PER MONTH DX R32, Z74.09, Z86.73 FAMILY HISTORY Problem Relation Age of Onset Prostate Cancer Father Cancer Mother Lymph nodes Coronary Artery Disease Mother Heart Mother Stroke Mother Heart Maternal Grandmother Social History Tobacco Use Smoking status: Never Smokeless tobacco: Never Substance Use Topics Alcohol use: No Drug use: No PHYSICAL EXAM BP 142/78 Pulse 62 (more content not included)... [facility] 05-19-2023 History of Presen t illness Narrative CC: Patient presents with: Medicare Wellness Exam: Annual Medicare HPI Julisa Land is a 87 year old female who presents today for medicare wellness but has concerns with burning with urination she has noticed for a few days. Denies any fever chills, abdominal pain, or shortness of breath. REVIEW OF SYSTEMS General: no fevers, no chills, no night sweats, no recurrent infections, no change in appetite, no change in energy, and no significant changes in weight Respiratory: no cough, no wheezing, no shortness of breath, no hemoptysis Cardiovascular: no chest pain, no chest pressure, no palpitations, and no swelling GI: no nausea vomiting or bowel changes : See HPI PAST MEDICAL HISTORY Diagnosis Date Anemia 2014 Asthma Renee's palsy age 11 Chronic obstructive pulmonary disease (COPD) (HCC) Congestive heart failure (CHF) (HCC) Diverticulitis of intestine without perforation or abscess without bleeding 12/23/2015 Esophageal reflux Lumbar radiculopathy 10/06/2013 Lumbar spondylosis 10/06/2013 Other and unspecified hyperlipidemia Stroke (HCC) 2012 Subdural hematoma (HCC) 200* Unspecified essential hypertension PAST SURGICAL HISTORY Procedure Laterality Date ABDOMINAL FINE NEEDLE ASPIRATION 01/20/07 U/S FNA left neck LN APPENDECTOMY 1971 during hysterectomy BIOPSY BREAST OPEN INCISIONAL Bx of breast, incisional COLONOSCOPY FLX DX W/COLLJ SPEC WHEN PFRMD 06/21/2001 Colonoscopy COLONOSCOPY FLX DX W/COLLJ SPEC WHEN PFRMD 10/03/15 Colonoscopy COLONOSCOPY FLX DX W/COLLJ SPEC WHEN PFRMD 12/04/15 Colonoscopy COLONOSCOPY FLX DX W/COLLJ SPEC WHEN PFRMD 01/21/2017 Colonoscopy mac CYSTOURETHROSCOPY 10/24/1981 Cystoscopy - stress incontinence ESOPHAGOGASTRODUODENOSCOPY TRANSORAL DIAGNOSTIC 03/09/14 EGD PAST SURGICAL HISTORY OF 05/1974 segmental resection left breast PAST SURGICAL HISTORY OF Left * repair of hip fracture. RPR UMBILICAL HRNA 5 YRS/> REDUCIBLE 07/31/2003 Hernia repair, umbilical >5yr TOTAL ABDOMINAL HYSTERECT W/WO RMVL TUBE OVARY 07/03/1970 Hysterectomy, PRISCILLA, BSO ALLERGIES Adhesive Tape-Silicones, Amitriptyline, Arthritis Pill [Other], Ciprofloxacin, Codeine, Dilantin [Phenytoin Sodium Extended], Ivp Dye [Iodine], Naprosyn [Naproxen], Penicillins, and Vicodin [Hydrocodone-Acetaminophen] MEDICATIONS amLODIPine (NORVASC) 2.5 mg tablet Take 1 tablet by mouth once daily. cholecalciferol (VITAMIN D3) 50 mcg (2,000 unit) tablet Take 1 tablet by mouth once daily. atorvastatin (LIPITOR) 10 mg tablet Take 1 tablet by mouth daily at bedtime. meclizine (ANTIVERT) 25 mg tab Take 1 tablet by mouth every 6 hours as needed (dizziness). clopidogrel (PLAVIX) 75 mg tablet Take 1 tablet by mouth once daily. fluticasone (FLONASE) 50 mcg/actuation nasal spray Use 2 Sprays in each nostril once daily. Rinse mouth after use. potassium chloride ER (KLOR-CON M20) 20 mEq tablet Take 1 tablet by mouth twice daily. Per Pharmacist, previously written for 1 tablet twice daily. omeprazole (PRILOSEC) 20 mg capsule Take 1 capsule by mouth once daily. atenolol (TENORMIN) 50 mg tablet Take 1 tablet by mouth once daily. furosemide (LASIX) 40 mg tablet Take 2 tablets by mouth once daily. loratadine (CLARITIN) 10 mg tablet Take 1 tablet by mouth once daily. nitroglycerin sublingual (NITROQUICK) 0.4 mg SL tablet Dissolve 1 tablet under the tongue as directed. DISSOLVE ONE(1) TABLET UNDER THE TOUNGUE NEEDED FOR CHEST PAIN,EVERY 5 MIN X3 tamsulosin (FLOMAX) 0.4 mg Take 1 capsule by mouth daily at bedtime. albuterol HFA (VENTOLIN HFA) 90 mcg/actuation inhaler Inhale 2 Puffs as instructed every 4 hours as needed. OXYBUTYNIN CHLORIDE ORAL Take 10 mg by mouth once daily. isosorbide mononitrate ER (IMDUR) 60 mg 24 hr tablet Take 1 tablet by mouth once daily. Cardiology losartan (COZAAR) 100 mg tablet Take 100 mg by mouth once daily. COMPOUNDED PRESCRIPTION DEPENDS/PULL UPS SIZE LARGE 6 TO 8 PACKAGES PER MONTH DX R32, Z74.09, Z86.73 COMPOUNDED PRESCRIPTION Home Modification Evaluation Dx: Balance problem LOPERAMIDE HCL (ANTI-DIARRHEAL, LOPERAMIDE, ORAL) Take by mouth as needed. COMPOUNDED PRESCRIPTION Bed Pads, x 4, washable. DX: CVA, memory impairment, incontinence, impaired mobility COMPOUNDED PRESCRIPTION SESAR HOSE KNEE HIGH LENGTH DX EDEMA R60.0 COMPOUNDED PRESCRIPTION CHUX DISPOSABLE PADS 6 TO 8 PACKS PER MONTH DX R32, Z74.09, Z86.73 FAMILY HISTORY Problem Relation Age of Onset Prostate Cancer Father Cancer Mother Lymph nodes Coronary Artery Disease Mother Heart Mother Stroke Mother Heart Maternal Grandmother Social History Tobacco Use Smoking status: Never Smokeless tobacco: Never Substance Use Topics Alcohol use: No Drug use: No PHYSICAL EXAM BP 142/78 Pulse 62 Temp 36.2 C (97.1 F) (Temporal) Resp 16 Wt 81.6 kg (180 lb) SpO2 97% BMI 29.05 kg/m General Appearance: well appearing, in no acute distress, alert Skin: Skin color, texture, turgor normal for age; Eyes: conjunctiva pink and moist, no icterus, sclera white, non-injected Lungs: Lungs clear to auscultation. No wheezing, rhonchi, rales. Heart: RRR without murmur, gallop, or rubs. No ectopy Abdomen: Abdomen soft, non-tender. Bowel sounds normal. No masses, organomegaly, Negative CVA tenderness Health maintenance reviewed with patient: DTAP,TDAP,TD(2 - Tdap) due on 05/13/2024 SPIROMETRY due on 05/13/2024 SHINGRIX VACCINE(1 of 2) due on 05/13/2024 COVID-19 VACCINE(3 - Booster for Pfizer series) due on 05/13/2024 INFLUENZA(Season Ended) due on 07/23/2023 DIABETES SCREEN due on 05/01/2026 BONE DENSITY Completed ADVANCE DIRECTIVE DISCUSSION Completed DEPRESSION ASSESSMENT Completed PNEUMOCOCCAL: 65+ Completed DATA REVIEWED: Most recent labs ASSESSMENT/PLAN: 1. Medicare annual wellness visit, subsequent - ICD9: V70.0, ICD10: Z00.00 (primary diagnosis) - see medicare wellness note - Counseled on healthy diet and regular exercise - Calcium intake with supplements or by diet of 1000 mg/day for under 50, 8968-6579 mg/day for 50+ - Discussed need and benefit for weight loss. BMI 29.05 kg/(m^2) - Depression screening tool completed and reviewed with patient. Based on score and interview, patient is not at risk for depression and recommended no further intervention at this time. - Follow up for annual exam in one year 2. Dysuria - ICD9: 788.1, ICD10: R30.0 Acute - patient not too concerned and states it is mild. - UA DIP, URINE (POC) - unable to go in office so ordered to come to lab to get completed - URINALYSIS, WITH MICROSCOPIC - URINE CULTURE Prescription instructions reviewed with patient as applicable. Potential red flag symptoms discussed with the patient. Reviewed appropriate action plan to take if red flag symptoms occur. Patient agreeable to treatment plan. Kayy Urban APRN.CNP Medicare Yearly Visit Medical B eligibilty date 2001 Date of last exam unknown PAST MEDICAL HISTORY Diagnosis Date Anemia 2014 Asthma Renee's palsy age 11 Chronic obstructive pulmonary disease (COPD) (HCC) Congestive heart failure (CHF) (HCC) Diverticulitis of intestine without perforation or abscess without bleeding 12/23/2015 Esophageal reflux Lumbar radiculopathy 10/06/2013 Lumbar spondylosis 10/06/2013 Other and unspecified hyperlipidemia Stroke (HCC) 2012 Subdural hematoma (HCC) 200* Unspecified essential hypertension PAST SURGICAL HISTORY Procedure Laterality Date ABDOMINAL FINE NEEDLE ASPIRATION 01/20/07 U/S FNA left neck LN APPENDECTOMY 1971 during hysterectomy BIOPSY BREAST OPEN INCISIONAL Bx of breast, incisional COLONOSCOPY FLX DX W/COLLJ SPEC WHEN PFRMD 06/21/2001 Colonoscopy COLONOSCOPY FLX DX W/COLLJ SPEC WHEN PFRMD 10/03/15 Colonoscopy COLONOSCOPY FLX DX W/COLLJ SPEC WHEN PFRMD 12/04/15 Colonoscopy COLONOSCOPY FLX DX W/COLLJ SPEC WHEN PFRMD 01/21/2017 Colonoscopy mac CYSTOURETHROSCOPY 10/24/1981 Cystoscopy - stress incontinence ESOPHAGOGASTRODUODENOSCOPY TRANSORAL DIAGNOSTIC 03/09/14 EGD PAST SURGICAL HISTORY OF 05/1974 segmental resection left breast PAST SURGICAL HISTORY OF Left * repair of hip fracture. RPR UMBILICAL HRNA 5 YRS/> REDUCIBLE 07/31/2003 Hernia repair, umbilical >5yr TOTAL ABDOMINAL HYSTERECT W/WO RMVL TUBE OVARY 07/03/1970 Hysterectomy, PRISCILLA, BSO ALLERGIES: Adhesive Tape-Silicones, Amitriptyline, Arthritis Pill [Other], Ciprofloxacin, Codeine, Dilantin [Phenytoin Sodium Extended], Ivp Dye [Iodine], Naprosyn [Naproxen], Penicillins, and Vicodin [Hydrocodone-Acetaminophen] Medications reviewed: Yes FAMILY HISTORY Problem Relation Age of Onset Prostate Cancer Father Cancer Mother Lymph nodes Coronary Artery Disease Mother Heart Mother Stroke Mother Heart Maternal Grandmother SOCIAL HISTORY: Social History Tobacco Use Smoking status: Never Smokeless tobacco: Never Substance Use Topics Alcohol use: No Drug use: No Julisa denies regular aerobic exercise. She watches her diet for sodium, low fat and low cholesterol generally not very much. List of current specialists seen: Urology: Dr. Ferrell - has appointment next week Cardiology: [facility] last visit unkown. Optometry: [facility]. End of Live Planning discussed including patients advanced directive wishes: Yes I am willing to follow Julisa's advanced directives. PHQ-2 / Depression screen She in the past two weeks denies having felt down, depressed, hopeless, or with little interest or pleasure in doing things. Functional Ability/Safety Screen 1. Was the patient's timed Up and Go test unsteady or longer than 30 seconds? No 2. Does the patient need help with the phone, transportation, shopping,preparing meals, housework, laundry, medications or managing money? Yes Has an aide that comes in regularly to help. Also lives with her son 3. Does your home have rugs in the hallway, lack of grab bars in the bathroom, lack of handrails on the stairs or have poor lighting? No Hearing Evaluation: within normal limits PHYSICAL EXAM BP 142/78 Pulse 62 Temp 36.2 C (97.1 F) (Temporal) Resp 16 Wt 81.6 kg (180 lb) SpO2 97% BMI 29.05 kg/m Alert and oriented X 3: YES Body mass index is 29.05 kg/m . 11/22 word recall and abnormal CDT. - history of memory concerns ASSESSMENT/PLAN: 87 year old female The following prevention plan was discussed during the office visit and provided to the patient: - Counseled on healthy diet and regular exercise - Discussed need for and benefit of weight loss. BMI 29.05 kg/(m^2) - Fall avoidance - Vaccines recommended COVID-19, Shingrix at pharmacy, and Tdap at pharmacy - Lipid panel - Depression screening - Glaucoma screening Kayy Urban APRN.CNP documented in this encounter [facility] 05-13-2023 Note HNO ID: [id number] Author: Kayy Urban APRN.CNP Service: ? Author Type: Nurse Practitioner Type: Progress Notes Filed: 05/19/2023 11:29 AM Note Text: Medicare Yearly Visit Medical B eligibilty date 2001 Date of last exam unknown PAST MEDICAL HISTORY Diagnosis Date Anemia 2015 Asthma Renee's palsy age 11 Chronic obstructive pulmonary disease (COPD) (HCC) Congestive heart failure (CHF) (HCC) Diverticulitis of intestine without perforation or abscess without bleeding 12/23/2015 Esophageal reflux Lumbar radiculopathy 10/06/2013 Lumbar spondylosis 10/06/2013 Other and unspecified hyperlipidemia Stroke (HCC) 2012 Subdural hematoma (HCC) 200* Unspecified essential hypertension PAST SURGICAL HISTORY Procedure Laterality Date ABDOMINAL FINE NEEDLE ASPIRATION 01/20/07 U/S FNA left neck LN APPENDECTOMY 1971 during hysterectomy BIOPSY BREAST OPEN INCISIONAL Bx of breast, incisional COLONOSCOPY FLX DX W/COLLJ SPEC WHEN PFRMD 06/21/2001 Colonoscopy COLONOSCOPY FLX DX W/COLLJ SPEC WHEN PFRMD 10/03/15 Colonoscopy COLONOSCOPY FLX DX W/COLLJ SPEC WHEN PFRMD 12/04/15 Colonoscopy COLONOSCOPY FLX DX W/COLLJ SPEC WHEN PFRMD 01/21/2017 Colonoscopy mac CYSTOURETHROSCOPY 10/24/1981 Cystoscopy - stress incontinence ESOPHAGOGASTRODUODENOSCOPY TRANSORAL DIAGNOSTIC 03/09/14 EGD PAST SURGICAL HISTORY OF 05/1974 segmental resection left breast PAST SURGICAL HISTORY OF Left * repair of hip fracture. RPR UMBILICAL HRNA 5 YRS/> REDUCIBLE 07/31/2003 Hernia repair, umbilical >5yr TOTAL ABDOMINAL HYSTERECT W/WO RMVL TUBE OVARY 07/03/1970 Hysterectomy, PRISCILLA, BSO ALLERGIES: Adhesive Tape-Silicones, Amitriptyline, Arthritis Pill [Other], Ciprofloxacin, Codeine, Dilantin [Phenytoin Sodium Extended], Ivp Dye [Iodine], Naprosyn [Naproxen], Penicillins, and Vicodin [Hydrocodone-Acetaminophen] Medications reviewed: Yes FAMILY HISTORY Problem Relation Age of Onset Prostate Cancer Father Cancer Mother Lymph nodes Coronary Artery Disease Mother Heart Mother Stroke Mother Heart Maternal Grandmother SOCIAL HISTORY: Social History Tobacco Use Smoking status: Never Smokeless tobacco: Never Substance Use Topics Alcohol use: No Drug use: No Julisa denies regular aerobic exercise. She watches her diet for sodium, low fat and low cholesterol generally not very much. List of current specialists seen: Urology: Dr. Ferrell - has appointment next week Cardiology: [facility] last visit unkown. Optometry: [facility]. End of Live Planning discussed including patients advanced directive wishes: Yes I am willing to follow Julisa's advanced directives. PHQ-2 / Depression screen She in the past two weeks denies having felt down, depressed, hopeless, or with little interest or pleasure in doing things. Functional Ability/Safety Screen 1. Was the patient's timed Up and Go test unsteady or longer than 30 seconds? No 2. Does the patient need help with the phone, transportation, shopping,preparing meals, housework, laundry, medications or managing money? Yes Has an aide that comes in regularly to help. Also lives with her son 3. Does your home have rugs in the hallway, lack of grab bars in the bathroom, lack of handrails on the stairs or have poor lighting? No Hearing Evaluation: within normal limits PHYSICAL EXAM BP 142/78 Pulse 62 Temp 36.2 ?C (97.1 ?F) (Temporal) Resp 16 Wt 81.6 kg (180 lb) SpO2 97% BMI 29.05 kg/m? Alert and oriented X 3: YES Body mass index is 29.05 kg/m?. 11/22 word recall and abnormal CDT. - history of memory concerns ASSESSMENT/PLAN: 87 year old female The following prevention plan was discussed during the office visit and provided to the patient: - Counseled on healthy diet and regular exercise - Discussed need for and benefit of weight loss. BMI 29.05 kg/(m2) - Fall avoidance - Vaccines recommended COVID-19, Shingrix at pharmacy, and Tdap at pharmacy - Lipid panel - Depression screening - Glaucoma screening Kayy Urban APRN.CNP [facility] 05-13-2023 Instructions Kayy Urban APRN.CNP - 05/13/2023 2:15 PM EDT Call and schedule a follow up with cardiology at [facility] as you have not been seen for a while documented in this encounter [facility] 04-15-2023 Note HNO ID: [id number] Author: Kayy Urban APRN.CNP Service: ? Author Type: Nurse Practitioner Type: Progress Notes Filed: 04/15/2023 11:37 AM Note Text: CC: Patient presents with: Recheck: Routine follow up HPI Julisa Land is a 87 year old female who presents today for follow up to review recent blood work. HTN/HLD: Has not taken her atorvastatin in 6 months. No history of [place] but history of CVA. Does not exercise as she has chronic back pain. HTN: Ms. Land indicates that she is feeling well and denies any symptoms referable to elevated blood pressure. Specifically denies headache, chest pain, palpitations, dyspnea, and peripheral edema. Patient denies any side effects of her medication(s) and is compliant with their regimen except did not take prior to appointment. She does not check BP's generally. Unsure if she eats a healthy diet as she just eats whatever people make for her. Last 3 Encounter BP Readings: Date: BP: 04/15/2023 148/78 03/10/2023 128/74 08/22/2022 132/74 Decreased kidney function. Does take a form of ibuprofen once a day for chronic back pain. Drinks about 4 cups of water a day. But drinks 4-5 cups of caffeine. Also found to be slightly anemic on lab work. Denies any dark sticky stools, blood in stools, or abnormal bleeding. Does have history of iron deficiency and currently not on an iron supplement. Chronic vertigo: Was seen almost 4 weeks ago for acute increase in her dizziness but found to have a sinus infection. Has completed treatment. Dizziness is back to normal and sinus infection has resolved. REVIEW OF SYSTEMS General: no fevers, no chills, no night sweats, no recurrent infections, no change in appetite, no change in energy, and no significant changes in weight Respiratory: no cough, no wheezing, no shortness of breath, no hemoptysis Cardiovascular: no chest pain, no chest pressure, no palpitations, and no swelling Neurologic: No new weakness, numbness, tingling, syncope. PAST MEDICAL HISTORY Diagnosis Date Anemia 2014 Asthma Renee's palsy age 11 Chronic obstructive pulmonary disease (COPD) (HCC) Congestive heart failure (CHF) (HCC) Diverticulitis of intestine without perforation or abscess without bleeding 12/23/2015 Esophageal reflux Lumbar radiculopathy 10/06/2013 Lumbar spondylosis 10/06/2013 Other and unspecified hyperlipidemia Stroke (HCC) 2012 Subdural hematoma (HCC) 200* Unspecified essential hypertension PAST SURGICAL HISTORY Procedure Laterality Date ABDOMINAL FINE NEEDLE ASPIRATION 01/20/07 U/S FNA left neck LN APPENDECTOMY 1972 during hysterectomy BIOPSY BREAST OPEN INCISIONAL Bx of breast, incisional COLONOSCOPY FLX DX W/COLLJ SPEC WHEN PFRMD 06/21/2001 Colonoscopy COLONOSCOPY FLX DX W/COLLJ SPEC WHEN PFRMD 10/03/15 Colonoscopy COLONOSCOPY FLX DX W/COLLJ SPEC WHEN PFRMD 12/04/15 Colonoscopy COLONOSCOPY FLX DX W/COLLJ SPEC WHEN PFRMD 01/21/2017 Colonoscopy mac CYSTOURETHROSCOPY 10/24/1981 Cystoscopy - stress incontinence ESOPHAGOGASTRODUODENOSCOPY TRANSORAL DIAGNOSTIC 03/09/14 EGD PAST SURGICAL HISTORY OF 05/1974 segmental resection left breast PAST SURGICAL HISTORY OF Left * repair of hip fracture. RPR UMBILICAL HRNA 5 YRS/> REDUCIBLE 07/31/2003 Hernia repair, umbilical >5yr TOTAL ABDOMINAL HYSTERECT W/WO RMVL TUBE OVARY 07/03/1970 Hysterectomy, PRISCILLA, BSO ALLERGIES Adhesive Tape-Silicones, Amitriptyline, Arthritis Pill [Other], Ciprofloxacin, Codeine, Dilantin [Phenytoin Sodium Extended], Ivp Dye [Iodine], Naprosyn [Naproxen], Penicillins, and Vicodin [Hydrocodone-Acetaminophen] MEDICATIONS meclizine (ANTIVERT) 25 mg tab Take 1 tablet by mouth every 6 hours as needed (dizziness). clopidogrel (PLAVIX) 75 mg tablet Take 1 tablet by mouth once daily. potassium chloride ER (KLOR-CON M20) 20 mEq tablet Take 1 tablet by mouth twice daily. Per Pharmacist, previously written for 1 tablet twice daily. omeprazole (PRILOSEC) 20 mg capsule Take 1 capsule by mouth once daily. atenolol (TENORMIN) 50 mg tablet Take 1 tablet by mouth once daily. furosemide (LASIX) 40 mg tablet Take 2 tablets by mouth once daily. amLODIPine (NORVASC) 2.5 mg tablet Take 1 tablet by mouth once daily. cholecalciferol (VITAMIN D3) 50 mcg (2,000 unit) tablet Take 1 tablet by mouth once daily. atorvastatin (LIPITOR) 10 mg tablet Take 1 tablet by mouth daily at bedtime. fluticasone (FLONASE) 50 mcg/actuation nasal spray Use 2 Sprays in each nostril once daily. Rinse mouth after use. loratadine (CLARITIN) 10 mg tablet Take 1 tablet by mouth once daily. nitroglycerin sublingual (NITROQUICK) 0.4 mg SL tablet Dissolve 1 tablet under the tongue as directed. DISSOLVE ONE(1) TABLET UNDER THE TOUNGUE NEEDED FOR CHEST PAIN,EVERY 5 MIN X3 tamsulosin (FLOMAX) 0.4 mg Take 1 capsule by mouth daily at bedtime. albuterol HFA (VENTOLIN HFA) 90 mcg/actuation inhaler Inhale 2 Puffs as instructed every 4 hours as (more content not included)... [facility] 03-12-2023 Miscellaneous Notes Son (Ignacio) calls to report severe vomiting and worsening dizziness. Patient is only able to sit on side of bed for short amount of time then has to lie back down. Meclizine doesn't help with the dizziness. Nurse triage completed. Protocol recommends ED now or PCP triage. Ignacio reports he doesn't know that he will be able to get patient into a car right now because she is so weak. Notified Ignacio if patient is that weak the recommendation would be to call 911 or an ambulance to transport. Ignacio voices understanding and will have patient evaluated at ED. Reason for Disposition [1] SEVERE vomiting (e.g., 6 or more times/day) AND [2] present > 8 hours (Exception: patient sounds well, is drinking liquids, does not sound dehydrated, and vomiting has lasted less than 24 hours) Answer Assessment - Initial Assessment Questions 1. VOMITING SEVERITY: - SEVERE: 6 or more times/day, vomits everything or nearly everything, with significant weight loss, symptoms of dehydration 2. ONSET: Yesterday 3. FLUIDS: Patient has only been drinking water and coffee today and hasn't kept any of it down. 4. ABDOMINAL PAIN: No 5. DIARRHEA: Diarrhea as well but son says it is per her normal which is everyday. 6. CONTACTS: No 7. CAUSE: Maybe from the antibiotic or dizziness is getting worse. Son reports that patient is not able to get up because every time she sits on the side of the bed she has to lie back down. 8. HYDRATION STATUS: Dry mouth and dry lips. Not able to stand or walk. Urinated this morning. 9. OTHER SYMPTOMS: Vertigo. No fever, headache,vomiting blood or coffee grounds, or recent head injury. Protocols used: [id number] documented in this encounter [facility] 03-10-2023 Note HNO ID: [id number] Author: Kayy Urban APRN.SHAREMILKER Service: ? Author Type: Nurse Practitioner Type: Progress Notes Filed: 03/10/2023 4:21 PM Note Text: CC: Patient presents with: Dizziness: Dizziness HPI Julisa Land is a 87 year old female who presents today for dizziness. Has had intermittent dizziness over the last few weeks with chronic diagnosed BPV which she uses meclizine often but this morning was more severe than typical while she was on the commode. Does have large amount of green sinus drainage, mild headaches, mild sore throat, and a cough of green sputum at night. Has had this for almost a month. Denies any fever, chills, weakness numbness confusion, shortness of breath, or chest pressure. REVIEW OF SYSTEMS General: no fevers, no chills, no night sweats, no recurrent infections, no change in appetite, no change in energy, and no significant changes in weight HEENT: no frequent or significant headaches, no changes in hearing, no visual changes, no nose bleeds Respiratory: no wheezing, no shortness of breath, no hemoptysis Cardiovascular: no chest pain, no chest pressure, no palpitations, and no swelling GI: No nausea, vomiting, or diarrhea Neurologic: No weakness, numbness, tingling, memory loss, syncope. PAST MEDICAL HISTORY Diagnosis Date Anemia 2014 Asthma Renee's palsy age 11 Chronic obstructive pulmonary disease (COPD) (HCC) Congestive heart failure (CHF) ([facility]) Diverticulitis of intestine without perforation or abscess without bleeding 12/23/2015 Esophageal reflux Lumbar radiculopathy 10/06/2013 Lumbar spondylosis 10/06/2013 Other and unspecified hyperlipidemia Stroke (HCC) 2012 Subdural hematoma 200* Unspecified essential hypertension PAST SURGICAL HISTORY Procedure Laterality Date ABDOMINAL FINE NEEDLE ASPIRATION 01/20/07 U/S FNA left neck LN APPENDECTOMY 1972 during hysterectomy BIOPSY BREAST OPEN INCISIONAL Bx of breast, incisional COLONOSCOPY FLX DX W/COLLJ SPEC WHEN PFRMD 06/21/2001 Colonoscopy COLONOSCOPY FLX DX W/COLLJ SPEC WHEN PFRMD 10/03/15 Colonoscopy COLONOSCOPY FLX DX W/COLLJ SPEC WHEN PFRMD 12/04/15 Colonoscopy COLONOSCOPY FLX DX W/COLLJ SPEC WHEN PFRMD 01/21/2017 Colonoscopy mac CYSTOURETHROSCOPY 10/24/1981 Cystoscopy - stress incontinence ESOPHAGOGASTRODUODENOSCOPY TRANSORAL DIAGNOSTIC 03/09/14 EGD PAST SURGICAL HISTORY OF 05/1974 segmental resection left breast PAST SURGICAL HISTORY OF Left * repair of hip fracture. RPR UMBILICAL HRNA 5 YRS/> REDUCIBLE 07/31/2003 Hernia repair, umbilical >5yr TOTAL ABDOMINAL HYSTERECT W/WO RMVL TUBE OVARY 07/03/1970 Hysterectomy, PRISCILLA, BSO ALLERGIES Adhesive Tape-Silicones, Amitriptyline, Arthritis Pill [Other], Ciprofloxacin, Codeine, Dilantin [Phenytoin Sodium Extended], Ivp Dye [Iodine], Naprosyn [Naproxen], Penicillins, and Vicodin [Hydrocodone-Acetaminophen] MEDICATIONS meclizine (ANTIVERT) 25 mg tab Take 1 tablet by mouth every 6 hours as needed (dizziness). clopidogrel (PLAVIX) 75 mg tablet Take 1 tablet by mouth once daily. potassium chloride ER (KLOR-CON M20) 20 mEq tablet Take 1 tablet by mouth twice daily. Per Pharmacist, previously written for 1 tablet twice daily. omeprazole (PRILOSEC) 20 mg capsule Take 1 capsule by mouth once daily. atenolol (TENORMIN) 50 mg tablet Take 1 tablet by mouth once daily. furosemide (LASIX) 40 mg tablet Take 2 tablets by mouth once daily. atorvastatin (LIPITOR) 10 mg tablet Take 1 tablet by mouth daily at bedtime. amLODIPine (NORVASC) 2.5 mg tablet Take 1 tablet by mouth once daily. loratadine (CLARITIN) 10 mg tablet Take 1 tablet by mouth once daily. nitroglycerin sublingual (NITROQUICK) 0.4 mg SL tablet Dissolve 1 tablet under the tongue as directed. DISSOLVE ONE(1) TABLET UNDER THE TOUNGUE NEEDED FOR CHEST PAIN,EVERY 5 MIN X3 tamsulosin (FLOMAX) 0.4 mg Take 1 capsule by mouth daily at bedtime. albuterol HFA (VENTOLIN HFA) 90 mcg/actuation inhaler Inhale 2 Puffs as instructed every 4 hours as needed. fluticasone-salmeterol (ADVAIR DISKUS) 250-50 mcg/dose inhaler Inhale 1 Puff as instructed twice daily. cholecalciferol (VITAMIN D3) 50 mcg (2,000 unit) tablet Take 1 tablet by mouth once daily. OXYBUTYNIN CHLORIDE ORAL Take 10 mg by mouth once daily. isosorbide mononitrate ER (IMDUR) 60 mg 24 hr tablet Take 1 tablet by mouth once daily. Cardiology losartan (COZAAR) 100 mg tablet Take 100 mg by mouth once daily. COMPOUNDED PRESCRIPTION DEPENDS/PULL UPS SIZE LARGE 6 TO 8 PACKAGES PER MONTH DX R32, Z74.09, Z86.73 COMPOUNDED PRESCRIPTION Home Modification Evaluation Dx: Balance problem LOPERAMIDE HCL (ANTI-DIARRHEAL, LOPERAMIDE, ORAL) Take by mouth as needed. COMPOUNDED PRESCRIPTION Bed Pads, x 4, washable. DX: CVA, memory impairment, incontinence, impaired mobility COMPOUNDED PRESCRIPTION SESAR HOSE KNEE HIGH LENGTH DX EDEMA R60.0 COMPOUNDED PRESCRIPTION CHUX DISPOSABLE PADS 6 TO 8 PACKS PE (more content not included)... [facility] 03-10-2023 History of Presen t illness Narrative CC: Patient presents with: Dizziness: Dizziness HPI Julisa Land is a 87 year old female who presents today for dizziness. Has had intermittent dizziness over the last few weeks with chronic diagnosed BPV which she uses meclizine often but this morning was more severe than typical while she was on the commode. Does have large amount of green sinus drainage, mild headaches, mild sore throat, and a cough of green sputum at night. Has had this for almost a month. Denies any fever, chills, weakness numbness confusion, shortness of breath, or chest pressure. REVIEW OF SYSTEMS General: no fevers, no chills, no night sweats, no recurrent infections, no change in appetite, no change in energy, and no significant changes in weight HEENT: no frequent or significant headaches, no changes in hearing, no visual changes, no nose bleeds Respiratory: no wheezing, no shortness of breath, no hemoptysis Cardiovascular: no chest pain, no chest pressure, no palpitations, and no swelling GI: No nausea, vomiting, or diarrhea Neurologic: No weakness, numbness, tingling, memory loss, syncope. PAST MEDICAL HISTORY Diagnosis Date 2014 Asthma Renee's palsy age 11 Chronic obstructive pulmonary disease (COPD) (HCC) Congestive heart failure (CHF) (HCC) Diverticulitis of intestine without perforation or abscess without bleeding 12/23/2015 Esophageal reflux Lumbar radiculopathy 10/06/2013 Lumbar spondylosis 10/06/2013 Other and unspecified hyperlipidemia Stroke (HCC) 2012 Subdural hematoma 200* Unspecified essential hypertension PAST SURGICAL HISTORY Procedure Laterality Date ABDOMINAL FINE NEEDLE ASPIRATION 01/20/07 U/S FNA left neck LN APPENDECTOMY 1971 during hysterectomy BIOPSY BREAST OPEN INCISIONAL Bx of breast, incisional COLONOSCOPY FLX DX W/COLLJ SPEC WHEN PFRMD 06/21/2001 Colonoscopy COLONOSCOPY FLX DX W/COLLJ SPEC WHEN PFRMD 10/03/15 Colonoscopy COLONOSCOPY FLX DX W/COLLJ SPEC WHEN PFRMD 12/04/15 Colonoscopy COLONOSCOPY FLX DX W/COLLJ SPEC WHEN PFRMD 01/21/2017 Colonoscopy mac CYSTOURETHROSCOPY 10/24/1981 Cystoscopy - stress incontinence ESOPHAGOGASTRODUODENOSCOPY TRANSORAL DIAGNOSTIC 03/09/14 EGD PAST SURGICAL HISTORY OF 05/1974 segmental resection left breast PAST SURGICAL HISTORY OF Left * repair of hip fracture. RPR UMBILICAL HRNA 5 YRS/> REDUCIBLE 07/31/2003 Hernia repair, umbilical >5yr TOTAL ABDOMINAL HYSTERECT W/WO RMVL TUBE OVARY 07/03/1970 Hysterectomy, PRISCILLA, BSO ALLERGIES Adhesive Tape-Silicones, Amitriptyline, Arthritis Pill [Other], Ciprofloxacin, Codeine, Dilantin [Phenytoin Sodium Extended], Ivp Dye [Iodine], Naprosyn [Naproxen], Penicillins, and Vicodin [Hydrocodone-Acetaminophen] MEDICATIONS meclizine (ANTIVERT) 25 mg tab Take 1 tablet by mouth every 6 hours as needed (dizziness). clopidogrel (PLAVIX) 75 mg tablet Take 1 tablet by mouth once daily. potassium chloride ER (KLOR-CON M20) 20 mEq tablet Take 1 tablet by mouth twice daily. Per Pharmacist, previously written for 1 tablet twice daily. omeprazole (PRILOSEC) 20 mg capsule Take 1 capsule by mouth once daily. atenolol (TENORMIN) 50 mg tablet Take 1 tablet by mouth once daily. furosemide (LASIX) 40 mg tablet Take 2 tablets by mouth once daily. atorvastatin (LIPITOR) 10 mg tablet Take 1 tablet by mouth daily at bedtime. amLODIPine (NORVASC) 2.5 mg tablet Take 1 tablet by mouth once daily. loratadine (CLARITIN) 10 mg tablet Take 1 tablet by mouth once daily. nitroglycerin sublingual (NITROQUICK) 0.4 mg SL tablet Dissolve 1 tablet under the tongue as directed. DISSOLVE ONE(1) TABLET UNDER THE TOUNGUE NEEDED FOR CHEST PAIN,EVERY 5 MIN X3 tamsulosin (FLOMAX) 0.4 mg Take 1 capsule by mouth daily at bedtime. albuterol HFA (VENTOLIN HFA) 90 mcg/actuation inhaler Inhale 2 Puffs as instructed every 4 hours as needed. fluticasone-salmeterol (ADVAIR DISKUS) 250-50 mcg/dose inhaler Inhale 1 Puff as instructed twice daily. cholecalciferol (VITAMIN D3) 50 mcg (2,000 unit) tablet Take 1 tablet by mouth once daily. OXYBUTYNIN CHLORIDE ORAL Take 10 mg by mouth once daily. isosorbide mononitrate ER (IMDUR) 60 mg 24 hr tablet Take 1 tablet by mouth once daily. Cardiology losartan (COZAAR) 100 mg tablet Take 100 mg by mouth once daily. COMPOUNDED PRESCRIPTION DEPENDS/PULL UPS SIZE LARGE 6 TO 8 PACKAGES PER MONTH DX R32, Z74.09, Z86.73 COMPOUNDED PRESCRIPTION Home Modification Evaluation Dx: Balance problem LOPERAMIDE HCL (ANTI-DIARRHEAL, LOPERAMIDE, ORAL) Take by mouth as needed. COMPOUNDED PRESCRIPTION Bed Pads, x 4, washable. DX: CVA, memory impairment, incontinence, impaired mobility COMPOUNDED PRESCRIPTION SESAR HOSE KNEE HIGH LENGTH DX EDEMA R60.0 COMPOUNDED PRESCRIPTION CHUX DISPOSABLE PADS 6 TO 8 PACKS PER MONTH DX R32, Z74.09, Z86.73 Aspirin 81 mg tab Take 81 mg by mouth. FAMILY HISTORY Problem Relation Age of Onset Prostate Cancer Father Cancer Mother Lymph nodes Coronary Artery Disease Mother Heart Mother Stroke Mother Heart Maternal Grandmother Social History Tobacco Use Smoking status: Never Smokeless tobacco: Never Substance Use Topics Alcohol use: No Drug use: No PHYSICAL EXAM BP 128/74 Pulse 65 Resp 16 Wt 80.7 kg (178 lb) SpO2 93% BMI 28.73 kg/m General Appearance: well appearing, in no acute distress, alert Skin: Skin color, texture, turgor normal for age; Eyes: PERRLA, EOM's intact, conjunctiva pink and moist, no icterus, sclera white, non-injected Ears: external ears normal to inspection and palpation, canals clear, Left tympanic membrane normal. , Right tympanic membrane normal Nose/sinus: Nares normal. Septum midline. Mucosa normal. No drainage. Neck: Thyroid normal size and symmetric without palpable nodules, Neck supple, No adenopathy Oropharynx: tongue midline and normal, palpation of salivary glands negative, Lymph nodes: No cervical lymphadenopathy and No supraclavicular lymphadenopathy Lungs: Lungs clear to auscultation. No wheezing, rhonchi, rales. Heart: RRR without murmur, gallop, or rubs. No ectopy Health maintenance reviewed with patient: SPIROMETRY Never done SHINGRIX VACCINE(1 of 2) Never done DTAP,TDAP,TD(2 - Tdap) due on 11/22/2012 COVID-19 VACCINE(3 - Booster for Pfizer series) due on 03/08/2021 ADVANCE DIRECTIVE DISCUSSION Never done DEPRESSION ASSESSMENT Never done INFLUENZA(Season Ended) due on 07/23/2023 DIABETES SCREEN due on 01/02/2025 BONE DENSITY Completed PNEUMOCOCCAL: 65+ Completed DATA REVIEWED: No new labs ASSESSMENT/PLAN: 1. Acute non-recurrent sinusitis, unspecified location - ICD9: 461.9, ICD10: J01.90 (primary diagnosis) - at this time feel this is causing the increase in chronic dizziness. - Will begin treatment with as per antibiotic as written, see orders - Supportive care with plenty of fluids, rest, and analgesia prn. - Follow up in 3-5 days if symptoms persist or worsen. 2. Dizziness - ICD9: 780.4, ICD10: R42 As above - can continue with meclizine as previously ordered. 3. Annual physical exam - ICD9: V70.0, ICD10: Z00.00 - needs to schedule yearly exam. Not discussed in visit today but lab work ordered - HGB A1C - CBC + DIFF - COMP METABOLIC PANEL - LIPID PANEL BASIC 4. Vitamin D deficiency - ICD9: 268.9, ICD10: E55.9 - VITAMIN D 25 HYDROXY 5. Prediabetes - ICD9: 790.29, ICD10: R73.03 Not discussed in visit today but lab work ordered - HGB A1C - CBC + DIFF - COMP METABOLIC PANEL 6. Hyperlipidemia, unspecified hyperlipidemia type - ICD9: 272.4, ICD10: E78.5 Not discussed in visit today but lab work ordered - COMP METABOLIC PANEL - LIPID PANEL BASIC Prescription instructions reviewed with patient as applicable. Potential red flag symptoms discussed with the patient. Reviewed appropriate action plan to take if red flag symptoms occur. Patient agreeable to treatment plan. Kayy Urban APRN.CNP documented in this encounter [facility] 12-28-2022 Miscellaneous Notes Patient has been identified by name and date of : Yes, Provider Ganta Date 12/28/22 Time 12:42pm Patient phones for refill(s): Requested Prescriptions Pending Prescriptions Disp Refills meclizine (ANTIVERT) 25 mg tab 30 tablet 3 Sig: Take 1 tablet by mouth every 6 hours as needed (dizziness). Date of last office visit in primary care: 08/22/22 No follow up appointment scheduled. Last 2 Encounter Wt Readings: Date: Wt: 08/22/2022 71.2 kg (157 lb) 07/07/2022 77.6 kg (171 lb) Please advise. Thank you. Makenzie Velazco LPN Pharmacy verified in [facility] Patient has been identified by name and date of : Yes Patient aware RX will be sent to pharmacy. No need to notify patient. Son phones for refill(s): Requested Prescriptions Pending Prescriptions Disp Refills meclizine (ANTIVERT) 25 mg tab 30 tablet 3 Sig: Take 1 tablet by mouth every 6 hours as needed (dizziness). Date of last office visit : Visit date not found Date of next office visit : Visit date not found Last 2 Encounter Wt Readings: Date: Wt: 08/22/2022 71.2 kg (157 lb) 07/07/2022 77.6 kg (171 lb) Please advise. Nadira Hoyos Pss documented in this encounter [facility] 10-28-2022 Miscellaneous Notes Images from the original note were not included. Prior authorization approved Payer: [facility] [phone] Approval Details Authorized from November 22, 2021 to November 21, 2022 Electronic appeal: Not supported meclizine (ANTIVERT) 25 mg tab Pharmacy notified. documented in this encounter [facility] 10-27-2022 Miscellaneous Notes Last OV: 08/22/22 Patient has been identified by name and date of : Yes Requested Prescriptions Pending Prescriptions Disp Refills clopidogrel (PLAVIX) 75 mg tablet 30 tablet 5 Sig: Take 1 tablet by mouth once daily. potassium chloride ER (KLOR-CON M20) 20 mEq tablet 60 tablet 11 Sig: Take 1 tablet by mouth twice daily. Per Pharmacist, previously written for 1 tablet twice daily. omeprazole (PRILOSEC) 20 mg capsule 30 capsule 11 Sig: Take 1 capsule by mouth once daily. RX INSTRUCTIONS: Pharmacy initiated this request. No need to notify patient. Susie Reid LPN documented in this encounter [facility] 08-27-2022 Miscellaneous Notes Patient's son calls and notified of results. Voices understanding. Ivory Clarke RN Left message for return call. ----- Message from Linn Will MD sent at 08/27/2022 8:55 AM EDT ----- Xr shows that the hips and pelvis is healing Regards, Linn Will MD documented in this encounter [facility] 08-22-2022 History of Presen t illness Narrative Reason for Visit Patient presents with: Dizziness: Ran out of medication - meclizine Julisa Land is a 86 year old female who presents here today for Above Complaints.. Health Maintenance SPIROMETRY SHINGRIX VACCINE(1 of 2) DTAP,TDAP,TD(2 - Tdap) ADVANCE DIRECTIVE DISCUSSION DEPRESSION ASSESSMENT INFLUENZA(1) HPI Patient is here with her family friend. Some family dynamics, with grandson who is not very good. He does not let her sleep. Julisa was in the ER with closed pelvic fracture on 06/10/2022. It was a displaced fracture. She also had right femoral intertrochanteric fracture which was likely old and screws and plates were in place. She was stabilized in the hospital and sent to rehab for 2 weeks. She was sent to the rehab for PT and OT and after 2 weeks she was sent home. At home, she has been doing fairly good,, reportedly she is able to stand up with walker, she has one and walks with it. Can dust mop. Ambulatory inside the home, Does her own shower, uses microwave, can corral her own eggs, gets herself a cup of coffee. She can load her dishwater. She does have some pain in the pelvic fracture. Not able to give me good info, not a great historian. Sometimes it hurst and sometimes it does not hurt at all. The main issue is dizziness. It started around 6 months ago. At that time she was shower, she was getting out after being down, and suddenly she noticed her head was spinning, she did not fall. She sat down. And got better She is dizzy when she gets up and turns head. She spins lasts for a few seconds and it goes away. Patient drinks 3/4 cups of black coffee. Had only one so far today. We discussed cutting down the coffee to 1/2 cups and 5/6 cups of water. No problem-specific Assessment & Plan notes found for this encounter. PAST MEDICAL HISTORY Diagnosis Date Anemia 2015 Asthma Renee's palsy age 11 Chronic obstructive pulmonary disease (COPD) (HCC) Congestive heart failure (CHF) (HCC) Diverticulitis of intestine without perforation or abscess without bleeding 12/23/2015 Esophageal reflux Lumbar radiculopathy 10/06/2013 Lumbar spondylosis 10/06/2013 Other and unspecified hyperlipidemia Stroke (HCC) 2012 Subdural hematoma 200* Unspecified essential hypertension PAST SURGICAL HISTORY Procedure Laterality Date ABDOMINAL FINE NEEDLE ASPIRATION 01/20/07 U/S FNA left neck LN APPENDECTOMY 1971 during hysterectomy BIOPSY BREAST OPEN INCISIONAL Bx of breast, incisional COLONOSCOPY FLX DX W/COLLJ SPEC WHEN PFRMD 06/21/2001 Colonoscopy COLONOSCOPY FLX DX W/COLLJ SPEC WHEN PFRMD 10/03/15 Colonoscopy COLONOSCOPY FLX DX W/COLLJ SPEC WHEN PFRMD 12/04/15 Colonoscopy COLONOSCOPY FLX DX W/COLLJ SPEC WHEN PFRMD 01/21/2017 Colonoscopy mac CYSTOURETHROSCOPY 10/24/1981 Cystoscopy - stress incontinence ESOPHAGOGASTRODUODENOSCOPY TRANSORAL DIAGNOSTIC 03/09/14 EGD PAST SURGICAL HISTORY OF 05/1974 segmental resection left breast PAST SURGICAL HISTORY OF Left * repair of hip fracture. RPR UMBILICAL HRNA 5 YRS/> REDUCIBLE 07/31/2003 Hernia repair, umbilical >5yr TOTAL ABDOMINAL HYSTERECT W/WO RMVL TUBE OVARY 07/03/1970 Hysterectomy, PRISCILLA, BSO FAMILY HISTORY Problem Relation Age of Onset Prostate Cancer Father Cancer Mother Lymph nodes Coronary Artery Disease Mother Heart Mother Stroke Mother Heart Maternal Grandmother Social History Tobacco Use Smoking status: Never Smokeless tobacco: Never Substance Use Topics Alcohol use: No Drug use: No Past medical history, appointments, medications, allergies reviewed. Pertinent Lab/Diagnostic Studies are reviewed and discussed today Current Outpatient Medications: atenolol (TENORMIN) 50 mg tablet furosemide (LASIX) 40 mg tablet loratadine (CLARITIN) 10 mg tablet clopidogrel (PLAVIX) 75 mg tablet tamsulosin (FLOMAX) 0.4 mg albuterol HFA (VENTOLIN HFA) 90 mcg/actuation inhaler fluticasone-salmeterol (ADVAIR DISKUS) 250-50 mcg/dose inhaler cholecalciferol (VITAMIN D3) 50 mcg (2,000 unit) tablet potassium chloride ER (KLOR-CON M20) 20 mEq tablet omeprazole (PRILOSEC) 20 mg capsule OXYBUTYNIN CHLORIDE ORAL isosorbide mononitrate ER (IMDUR) 60 mg 24 hr tablet losartan (COZAAR) 100 mg tablet COMPOUNDED PRESCRIPTION COMPOUNDED PRESCRIPTION LOPERAMIDE HCL (ANTI-DIARRHEAL, LOPERAMIDE, ORAL) COMPOUNDED PRESCRIPTION COMPOUNDED PRESCRIPTION COMPOUNDED PRESCRIPTION Aspirin 81 mg tab atorvastatin (LIPITOR) 10 mg tablet amLODIPine (NORVASC) 2.5 mg tablet nitroglycerin sublingual (NITROQUICK) 0.4 mg SL tablet Review of Systems CONSTITUTIONAL: No fevers, chills night sweats, unintended weight loss CARDIOVASCULAR: No chest pain, dyspnea, palpitations, orthopnea, PND, ankle edema. PULM: No dyspnea, unexplained cough. GI: No dysphagia/odynophagia, problematic reflux, constipation, diarrhea, changes in stool habits, hematochezia, melena. : No new urinary complaints, including dysuria, gross hematuria or pyuria. NEURO: No new balance problems, peripheral weakness/paresthesias or numbness of concern. Physical Exam BP 132/74 Pulse 80 Resp 16 Wt 71.2 kg (157 lb) BMI 25.34 kg/m General appearance: Well appearing, alert, in no acute distress, well nourished. Skin: Skin color, texture, turgor normal, no suspicious rashes or lesions Head: Normocephalic, no masses, lesions, tenderness or abnormalities Eyes: Anicteric sclera. Pupils are equally round and reactive to light. Extraocular movements are intact. Lungs: Lungs clear to auscultation. No wheezing, rhonchi, rales Heart: RRR without murmur, gallop, or rubs. Extremities: No deformities, edema, skin discoloration, clubbing or cyanosis. Good capillary refill. ASSESSMENT/PLAN: 1. Benign paroxysmal positional vertigo due to bilateral vestibular disorder - ICD9: 386.11, ICD10: H81.13 (primary diagnosis) - CONSULT TO VESTIBULAR REHAB PT 2. Dizziness - ICD9: 780.4, ICD10: R42 - CONSULT TO VESTIBULAR REHAB PT 3. Closed displaced fracture of pelvis, unspecified part of pelvis, sequela - ICD9: 905.1, ICD10: S32.9XXS 4. Imbalance - ICD9: 781.2, ICD10: R26.89 - CONSULT TO VESTIBULAR REHAB PT 5. Disequilibrium - ICD9: 780.4, ICD10: R42 - CONSULT TO VESTIBULAR REHAB PT Linn Will MD documented in this encounter [facility] 08-19-2022 Miscellaneous Notes Provider agreeable with order. Kayy Urban APRN.CNP Claudette, an OT with [facility] calling to report a Delay of Care for patient's OT. Patient was to be seen on 08/16 and was seen today. OT would like to see her one time for one week. No call back necessary, if provider agreeable. Thank you documented in this encounter [facility] 08-05-2022 Miscellaneous Notes Patient has been identified by name and date of : Yes Pharmacy phones for refill(s): Requested Prescriptions Pending Prescriptions Disp Refills atenolol (TENORMIN) 50 mg tablet 30 tablet 11 Sig: Take 1 tablet by mouth once daily. furosemide (LASIX) 40 mg tablet 60 tablet 11 Sig: Take 2 tablets by mouth once daily. Date of last office visit with pcp: 07/07/22 Date of last office visit in primary care: Last 2 Encounter Wt Readings: Date: Wt: 07/07/2022 77.6 kg (171 lb) 05/21/2022 0 kg () Previous labs/tests for medication: Blood Pressure: BUN (mg/dL) Date Value 01/02/2022 18 Sodium (mmol/L) Date Value 01/02/2022 139 Last 1 Encounter BP Readings: Date: BP: 07/07/2022 138/62 Please advise. Thank you. Lupe Resendiz RN documented in this encounter [facility] 07-20-2022 Miscellaneous Notes Patient arrived for appointment with a friend. Discussed with Dr. Burrell, Patient needs to follow up with Dr. Byrd who did her surgery. Spoke with son on phone and he will schedule her a follow up with him. Patient had hip fracture and seen at [facility]. Patient has appointment with Dr. Burrell on 07/20 for follow up . Dr. Burrell did not do the surgery and patient needs to follow up with the surgeon that did her surgery. Left a message for patient to call the office. documented in this encounter [facility] 07-09-2022 Miscellaneous Notes Ivory from [facility] calling asking for copy of office notes from 07/07/[address] Will to be faxed to [phone]. Patient had been discharged from [facility] on 06/28 and they have verbal order from PCP. Printed office visit and faxed as requested. documented in this encounter [facility] 06-25-2022 Miscellaneous Notes Ivory returned call and given provider's message below with verbalized understanding. Left message to return call. PCP ok to follow therapy orders. Thank you Kayy Urban APRN.MALINI nurse Ivory @ [facility] calling to let PCP know patient is being discharged from [facility] with home health orders for PT/OT. She does not know discharge date. Asking if agree and willing to follow orders? Her ph# [phone]. Lupe Resendiz RN documented in this encounter [facility] 05-31-2022 Miscellaneous Notes Patient given results and verbalized understanding of instructions given. Priscilla Martinez Started patient on Macrobid twice a day for 5 days. Please notify her that we are waiting for the final culture still and may have to adjust but start medication now. thank you documented in this encounter [facility] 05-21-2022 History of Presen t illness Narrative CC: Patient presents with: Urinary Frequency: confusion x7 days, presented with daughter Diarrhea: lower back pain rated 10 on pain scale, Hx (RT) hip surgery March 2022 HPI Julisa Land is a 86 year old female who presents with complaint of possible UTI. These symptoms have been present for 7 days. Associated symptoms: frequency, backpain and confusion per family member Denies: fever, chills, sweats and abdominal pain Treatments: nothing The ROS was otherwise negative. PMH, Medications, labs, allergies, and recent past visits with PCP were reviewed and updated as able. PHYSICAL EXAM: BP 128/76 Pulse 72 Temp 36.6 C (97.8 F) Resp 18 SpO2 97% General: Well appearing and alert CV: Regular rate and rhythm without obvious murmur Lungs: clear to auscultation bilaterally Back: straight and symmetric Abdomen: soft, tender in middle lower quadranttender, nondistended PAST MEDICAL HISTORY Diagnosis Date Anemia 2014 Asthma Renee's palsy age 11 Chronic obstructive pulmonary disease (COPD) (HCC) Congestive heart failure (CHF) (HCC) Diverticulitis of intestine without perforation or abscess without bleeding 12/23/2015 Esophageal reflux Lumbar radiculopathy 10/06/2013 Lumbar spondylosis 10/06/2013 Other and unspecified hyperlipidemia Stroke (HCC) 2012 Subdural hematoma (HCC) 200* Unspecified essential hypertension PAST SURGICAL HISTORY Procedure Laterality Date ABDOMINAL FINE NEEDLE ASPIRATION 01/20/07 U/S FNA left neck LN APPENDECTOMY 1972 during hysterectomy BIOPSY BREAST OPEN INCISIONAL Bx of breast, incisional COLONOSCOPY FLX DX W/COLLJ SPEC WHEN PFRMD 06/21/2001 Colonoscopy COLONOSCOPY FLX DX W/COLLJ SPEC WHEN PFRMD 10/03/15 Colonoscopy COLONOSCOPY FLX DX W/COLLJ SPEC WHEN PFRMD 12/04/15 Colonoscopy COLONOSCOPY FLX DX W/COLLJ SPEC WHEN PFRMD 01/21/2017 Colonoscopy mac CYSTOURETHROSCOPY 10/24/1981 Cystoscopy - stress incontinence ESOPHAGOGASTRODUODENOSCOPY TRANSORAL DIAGNOSTIC 03/09/14 EGD PAST SURGICAL HISTORY OF 05/1974 segmental resection left breast PAST SURGICAL HISTORY OF Left * repair of hip fracture. RPR UMBILICAL HRNA 5 YRS/> REDUCIBLE 07/31/2003 Hernia repair, umbilical >5yr TOTAL ABDOMINAL HYSTERECT W/WO RMVL TUBE OVARY 07/03/1970 Hysterectomy, PRISCILLA, BSO ALLERGIES Adhesive Tape-Silicones, Amitriptyline, Arthritis Pill [Other], Ciprofloxacin, Codeine, Dilantin [Phenytoin Sodium Extended], Ivp Dye [Iodine], Naprosyn [Naproxen], Penicillins, and Vicodin [Hydrocodone-Acetaminophen] MEDICATIONS loratadine (CLARITIN) 10 mg tablet Take 1 tablet by mouth once daily. clopidogrel (PLAVIX) 75 mg tablet Take 1 tablet by mouth once daily. atorvastatin (LIPITOR) 10 mg tablet Take 1 tablet by mouth daily at bedtime. amLODIPine (NORVASC) 2.5 mg tablet Take 1 tablet by mouth once daily. nitroglycerin sublingual (NITROQUICK) 0.4 mg SL tablet Dissolve 1 tablet under the tongue as directed. DISSOLVE ONE(1) TABLET UNDER THE TOUNGUE NEEDED FOR CHEST PAIN,EVERY 5 MIN X3 tamsulosin (FLOMAX) 0.4 mg Take 1 capsule by mouth daily at bedtime. albuterol HFA (VENTOLIN HFA) 90 mcg/actuation inhaler Inhale 2 Puffs as instructed every 4 hours as needed. fluticasone-salmeterol (ADVAIR DISKUS) 250-50 mcg/dose inhaler Inhale 1 Puff as instructed twice daily. cholecalciferol (VITAMIN D3) 50 mcg (2,000 unit) tablet Take 1 tablet by mouth once daily. potassium chloride ER (KLOR-CON M20) 20 mEq tablet Take 1 tablet by mouth twice daily. Per Pharmacist, previously written for 1 tablet twice daily. omeprazole (PRILOSEC) 20 mg capsule Take 1 capsule by mouth once daily. OXYBUTYNIN CHLORIDE ORAL Take 10 mg by mouth once daily. furosemide (LASIX) 40 mg tablet Take 2 tablets by mouth once daily. atenolol (TENORMIN) 50 mg tablet Take 1 tablet by mouth once daily. isosorbide mononitrate ER (IMDUR) 60 mg 24 hr tablet Take 1 tablet by mouth once daily. Cardiology losartan (COZAAR) 100 mg tablet Take 100 mg by mouth once daily. COMPOUNDED PRESCRIPTION DEPENDS/PULL UPS SIZE LARGE 6 TO 8 PACKAGES PER MONTH DX R32, Z74.09, Z86.73 COMPOUNDED PRESCRIPTION Home Modification Evaluation Dx: Balance problem LOPERAMIDE HCL (ANTI-DIARRHEAL, LOPERAMIDE, ORAL) Take by mouth as needed. COMPOUNDED PRESCRIPTION Bed Pads, x 4, washable. DX: CVA, memory impairment, incontinence, impaired mobility COMPOUNDED PRESCRIPTION SESAR HOSE KNEE HIGH LENGTH DX EDEMA R60.0 COMPOUNDED PRESCRIPTION CHUX DISPOSABLE PADS 6 TO 8 PACKS PER MONTH DX R32, Z74.09, Z86.73 Aspirin 81 mg tab Take 81 mg by mouth. FAMILY HISTORY Problem Relation Age of Onset Prostate Cancer Father Cancer Mother Lymph nodes Coronary Artery Disease Mother Heart Mother Stroke Mother Heart Maternal Grandmother Social History Tobacco Use Smoking status: Never Smoker Smokeless tobacco: Never Used Substance Use Topics Alcohol use: No Drug use: No ASSESSMENT/PLAN: 1. Urinary frequency - ICD9: 788.41, ICD10: R35.0 acute - UA DIP, URINE (POC) - URINE CULTURE At this time awaiting urine specimen once we obtain that it will be sent out and tested. Prescription instructions reviewed with patient as applicable. Potential red flag symptoms discussed with the patient. Reviewed appropriate action plan to take if red flag symptoms occur. Patient agreeable to treatment plan. Sobeida Jansen APRN.MALINI documented in this encounter [facility] 03-05-2022 Miscellaneous Notes Son notified. Would like that completed at follow up appointment. Please let patient and son know that all of her orders for oxygen were at night. She will need to be tested for oxygen saturation while walking to evaluate for her oxygen saturation decreasing to 88% or below to qualify for the inogen they were requesting. Please let me know if she is up for this and I will place the order. Thank you Kayy Urban APRN.CNP documented in this encounter [facility] 03-05-2022 Miscellaneous Notes Son notified. This was requested because patient stated she had a cough and sore throat with occupational therapy. Vital signs are normal but if patient has a fever, shortness of breath, chest pain, or any other urgent concerns she should go to the ER. If her cough and sore throat continue or worsen, please call the office to schedule an appointment for evaluation. Thank you Kayy Urban APRN.CNP Patient son Ignacio calling with vitals on his mother, BP checked at 1230 pm was 117/69 pulse 73 SPO2 on 3 liters oxygen was 98% and temp 96.8 he was told to call with progress report for the [employer]. documented in this encounter [facility] 03-04-2022 Miscellaneous Notes Noted. Kayy Urban APRN.CNP Silke, an OT with [facility] calling to report per protocol that during her covid assessment questions today at home OT visit, patient stated she started with a cough and a sore throat two days ago. No further information given. This nurse attempted to call patient to ask further questions and phone number listed is patient's son Ignacio. Spoke with Ignacio and he states he will be seeing patient later this katerin. Requested for him to call PCP office tomorrow with patient update and he verbalized understanding. Lanie Jackson RN documented in this encounter [facility] 02-26-2022 Instructions Kayy Urban APRN.MALINI - 02/26/2022 2:32 PM EDT Call and make follow up appointment with cardiology regarding chest pain Follow up with urology as instructed. documented in this encounter [facility] 02-26-2022 History of Presen t illness Narrative CC: Patient presents with: Recheck: [facility] R hip fracture HPI Julisa Land is a 86 year old female who presents today for Hosptial follow-up. Patient is very poor historian unsure on medications, specialist names, and follow up appointment. States son keeps track of his information. Discharge medication list from [facility] used to update home medications. Went to ER on 01/24 post fall and had fractured her right hip. Right femur nailed on 01/[address] Byrd at [facility]. Was admitted to [facility] on 01/29 and discharged on 02/16 to home. Lives with son. Patient is able to dress her self but son helps her with other things. Also has an aide that comes and cooks her breakfast and helps clean. Has home physical therapy as outpatient twice a week. Had prior to visit today and leg has been hurting since. Takes 2 tylenol for the pain which helps. Uses a walker at home by herself without issue but uses a wheelchair on long distances like to appointment today. Prediabetes: januvia was also stopped during hospitalization for some reason as well. Patient unsure why and wasn't even sure what this medication was for. Does not check blood sugars at home and has not had an issue with it in over 4 years. Patient has history of COPD is on oxygen at home. Unsure how much or who prescribed this for her. Is requesting a portable air machine called inogen. Is not on oxygen in office and is satting 95% on RA without activity. HTN: Ms. Land indicates that she is feeling well and denies any symptoms referable to elevated blood pressure. Specifically denies headache, palpitations, dyspnea and peripheral edema. Patient denies any side effects of her medication(s) and is compliant with their regimen. She does check BP's away from this office with average BP's in the 120/80 range. Julisa denies regular aerobic exercise. She watches her diet for sodium, low fat and low cholesterol some of the time. Last 3 Encounter BP Readings: Date: BP: 02/26/2022 122/66 01/02/2022 140/66 10/07/2021 136/78 Reports having chest pain last week while sitting in her chair. Had to take 3 nitroglycerin tablets to relieve it. Has not happened since. History of CAD and HTN. Sees Dr. Jeronimo at [facility] and had ECHO 2 months ago. Unsure when her next appointment is. Amlodipine decreased to 2.5 mg at some point during hospitalization. Had trouble with urinary retention in the hospital and has a stinson catheter. Is unsure when urology follow up. Denies any pain, fever, dark urine, or any other concern. Was started on tamsulosin. REVIEW OF SYSTEMS General: no fevers, no chills, no night sweats, no recurrent infections, no change in appetite, no change in energy and no significant changes in weight Respiratory: no cough, no wheezing, no shortness of breath, no hemoptysis Cardiovascular: See HPI GI: No nausea, vomiting, or diarrhea : See HPI Musculoskeletal: Right hip still painful especially after therapy Endocrine: no fatigue, no weight gain, no weight loss, no cold intolerance, no heat intolerance, no polyuria, no polyphagia and no polydipsia Neurologic: No headache, numbness, tingling, dizziness, syncope. PAST MEDICAL HISTORY Diagnosis Date Anemia 2015 Asthma Renee's palsy age 11 Chronic obstructive pulmonary disease (COPD) ([facility]) Congestive heart failure (CHF) ([facility]) Diverticulitis of intestine without perforation or abscess without bleeding 12/23/2015 Esophageal reflux Lumbar radiculopathy 10/06/2013 Lumbar spondylosis 10/06/2013 Other and unspecified hyperlipidemia Stroke (HCC) 2012 Subdural hematoma ([facility]) 200* Unspecified essential hypertension PAST SURGICAL HISTORY Procedure Laterality Date ABDOMINAL FINE NEEDLE ASPIRATION 01/20/07 U/S FNA left neck LN APPENDECTOMY 1971 during hysterectomy BIOPSY BREAST OPEN INCISIONAL Bx of breast, incisional COLONOSCOPY FLX DX W/COLLJ SPEC WHEN PFRMD 06/21/2001 Colonoscopy COLONOSCOPY FLX DX W/COLLJ SPEC WHEN PFRMD 10/03/15 Colonoscopy COLONOSCOPY FLX DX W/COLLJ SPEC WHEN PFRMD 12/04/15 Colonoscopy COLONOSCOPY FLX DX W/COLLJ SPEC WHEN PFRMD 01/21/2017 Colonoscopy mac CYSTOURETHROSCOPY 10/24/1981 Cystoscopy - stress incontinence ESOPHAGOGASTRODUODENOSCOPY TRANSORAL DIAGNOSTIC 03/09/14 EGD PAST SURGICAL HISTORY OF 05/1974 segmental resection left breast PAST SURGICAL HISTORY OF Left * repair of hip fracture. RPR UMBILICAL HRNA 5 YRS/> REDUCIBLE 07/31/2003 Hernia repair, umbilical >5yr TOTAL ABDOMINAL HYSTERECT W/WO RMVL TUBE OVARY 07/03/1970 Hysterectomy, PRISCILLA, BSO ALLERGIES Adhesive Tape-Silicones, Amitriptyline, Arthritis Pill [Other], Ciprofloxacin, Codeine, Dilantin [Phenytoin Sodium Extended], Ivp Dye [Iodine], Naprosyn [Naproxen], Penicillins, and Vicodin [Hydrocodone-Acetaminophen] MEDICATIONS albuterol HFA (VENTOLIN HFA) 90 mcg/actuation inhaler Inhale 2 Puffs as instructed every 4 hours as needed. fluticasone-salmeterol (ADVAIR DISKUS) 250-50 mcg/dose inhaler Inhale 1 Puff as instructed twice daily. cholecalciferol (VITAMIN D3) 50 mcg (2,000 unit) tablet Take 1 tablet by mouth once daily. potassium chloride ER (KLOR-CON M20) 20 mEq tablet Take 1 tablet by mouth twice daily. Per Pharmacist, previously written for 1 tablet twice daily. loratadine (CLARITIN) 10 mg tablet Take 1 tablet by mouth once daily. clopidogrel (PLAVIX) 75 mg tablet Take 1 tablet by mouth once daily. omeprazole (PRILOSEC) 20 mg capsule Take 1 capsule by mouth once daily. OXYBUTYNIN CHLORIDE ORAL Take 10 mg by mouth once daily. meclizine (ANTIVERT) 25 mg tab Take 1 tablet by mouth three times daily. for dizziness atorvastatin (LIPITOR) 10 mg tablet Take 1 tablet by mouth daily at bedtime. fesoterodine (TOVIAZ) 4 mg Tb24 extended release tablet Take 1 tablet by mouth once daily. furosemide (LASIX) 40 mg tablet Take 2 tablets by mouth once daily. atenolol (TENORMIN) 50 mg tablet Take 1 tablet by mouth once daily. amLODIPine (NORVASC) 5 mg tablet Take 1 tablet by mouth once daily. SITagliptin (JANUVIA) 50 mg tablet Take 1 tablet by mouth once daily. phenazopyridine (PYRIDIUM) 100 mg tablet Take 2 tablets by mouth three times daily as needed for Pain. isosorbide mononitrate ER (IMDUR) 60 mg 24 hr tablet Take 1 tablet by mouth once daily. Cardiology nitroglycerin sublingual (NITROQUICK) 0.4 mg SL tablet Dissolve 1 tablet under the tongue as directed. DISSOLVE ONE(1) TABLET UNDER THE TOUNGUE NEEDED FOR CHEST PAIN,EVERY 5 MIN X3 losartan (COZAAR) 100 mg tablet Take 100 mg by mouth once daily. COMPOUNDED PRESCRIPTION DEPENDS/PULL UPS SIZE LARGE 6 TO 8 PACKAGES PER MONTH DX R32, Z74.09, Z86.73 COMPOUNDED PRESCRIPTION Home Modification Evaluation Dx: Balance problem LOPERAMIDE HCL (ANTI-DIARRHEAL, LOPERAMIDE, ORAL) Take by mouth as needed. COMPOUNDED PRESCRIPTION Bed Pads, x 4, washable. DX: CVA, memory impairment, incontinence, impaired mobility COMPOUNDED PRESCRIPTION SESAR HOSE KNEE HIGH LENGTH DX EDEMA R60.0 COMPOUNDED PRESCRIPTION CHUX DISPOSABLE PADS 6 TO 8 PACKS PER MONTH DX R32, Z74.09, Z86.73 Aspirin 81 mg tab Take 81 mg by mouth. FAMILY HISTORY Problem Relation Age of Onset Prostate Cancer Father Cancer Mother Lymph nodes Coronary Artery Disease Mother Heart Mother Stroke Mother Heart Maternal Grandmother Social History Tobacco Use Smoking status: Never Smoker Smokeless tobacco: Never Used Substance Use Topics Alcohol use: No Drug use: No PHYSICAL EXAM BP 122/66 Pulse 68 SpO2 95% General Appearance: well appearing, in no acute distress, alert Skin: Skin color, texture, turgor normal for age; 2 small incision to right thigh fully approximated and healed - no open areas, redness or tenderness Eyes: conjunctiva pink and moist, no icterus, sclera white, non-injected Lungs: Lungs clear to auscultation. No wheezing, rhonchi, rales. Heart: RRR without murmur, gallop, or rubs. No ectopy Extremities: No deformities, edema, skin discoloration, clubbing or cyanosis. Good capillary refill. : stinson catheter intact and draining. Urine is clear yellow. SPIROMETRY Never done SHINGRIX VACCINE(1 of 2) Never done DTAP,TDAP,TD(2 - Tdap) due on 11/22/2012 ADVANCE DIRECTIVE DISCUSSION Never done COVID-19 VACCINE(3 - Booster for Pfizer series) due on 10/07/2022 DIABETES SCREEN due on 01/02/2025 BONE DENSITY Completed INFLUENZA Completed PNEUMOVAX AGE 65 AND OVER WITH 5YR LOOKBACK Completed MENINGOCOCCAL CONJUGATE Aged Out DATA REVIEWED: Outside chart from [facility] reviewed. ASSESSMENT/PLAN: 1. History of recent hospitalization - ICD9: V13.9, ICD10: Z92.89 (primary diagnosis) - right femur repair with nailing. Healing well - Still with urinary retention and pain - Will have her follow up in 6 weeks to re- evaluate 2. Aftercare for healing traumatic fracture of right femur - ICD9: V54.15, ICD10: S72.91XD - healed, still requiring physical therapy 3. Chest pain, unspecified type - ICD9: 786.50, ICD10: R07.9 - patient does not want EKG at this time because she does not want to get out of wheelchair - Nitro refilled - Patient instructed to call cardiology and get an appointment - Follow up in 6 weeks - Go to ER for chest pain not relieved by nitro, shortness of breath, palpitations, or any other urgent concerns. 4. Essential hypertension - ICD9: 401.9, ICD10: I10 - good control - Continue current medication(s) - Recommended regular aerobic exercise. - Recommend home blood pressure monitoring, to bring results in on next visit - Goal of BP <130/80 5. Urinary retention - ICD9: 788.20, ICD10: R33.9 - Find out when urology follow up is and keep appointment - Call for any decrease in urine, dark colored urine, fever, or foul smelling urine 6. On home oxygen therapy - ICD9: V46.2, ICD10: Z99.81 - patient instructed to find out who prescribed the oxygen, how much she is on, and which DME it goes through 7. Prediabetes - ICD9: 790.29, ICD10: R73.03 - Current control unknown, unable to identify why januvia was stopped - will need to recheck HGBA1c in 3 months after stopping the Januvia I spent 45 minutes in the visit, with more than 50% of the total [id number] time of the visit in counseling / coordination of care. Prescription instructions reviewed with patient as applicable. Potential red flag symptoms discussed with the patient. Reviewed appropriate action plan to take if red flag symptoms occur. Patient agreeable to treatment plan. Kayy Urban APRN.CNP documented in this encounter [facility] 02-19-2022 Miscellaneous Notes Charmaine with [facility] is call and notified of providers message. She voices understanding. Alejandra Fischer RN Provider will follow. Thank you Kayy Urban APRN.CNP Charmaine calling from [facility] checking status. Please advise. Noreen Palencia LPN Charmaine from [facility] called in and reports that Pt will be discharged from [facility] on 02/19/22. She is being discharged with SN, PT, OT. They are calling to ask if provider will follow orders. Please call and advise. documented in this encounter [facility] 02-18-2022 Miscellaneous Notes Patient has been identified by name and date of : Yes Patient phones for refill(s): Pending Prescriptions Disp Refills ALBUTEROL SULFATE HFA 90 MCG/ACTUATION AEROSOL INHALER 3 Inhaler 3 Sig: Inhale 2 Puffs as instructed every 4 hours as needed. GENA: No FLUTICASONE 250 MCG-SALMETEROL 50 MCG/DOSE BLISTR POWDR FOR INHALATION 1 Each 11 Sig: Inhale 1 Puff as instructed twice daily. GENA: No Date of last office visit in primary care: 01/02/22 Last 2 Encounter Wt Readings: Date: Wt: 01/02/2022 83.5 kg (184 lb) 10/07/2021 84.4 kg (186 lb) Previous labs/tests for medication: Not applicable Please advise. Thank you. Nikia Man LPN Patient has been identified by name and date of : Yes Pending Prescriptions Disp Refills ALBUTEROL SULFATE HFA 90 MCG/ACTUATION AEROSOL INHALER 3 Inhaler 3 Sig: Inhale 2 Puffs as instructed every 4 hours as needed. GENA: No FLUTICASONE 250 MCG-SALMETEROL 50 MCG/DOSE BLISTR POWDR FOR INHALATION 1 Each 11 Sig: Inhale 1 Puff as instructed twice daily. GENA: No RX INSTRUCTIONS: Patient aware RX will be sent to pharmacy. No need to notify patient. Concha Mckeon Pss documented in this encounter [facility] documented as of this encounter (statuses as of 02/19/2022) [facility] History of Past illness Narrative* Problem Noted Date Resolved Date Dizziness 11/26/2015 01/13/2017 Anal or rectal pain 10/03/2015 10/03/2015 Anemia 07/25/2015 01/13/2017 Overview: Last H and H at [facility]: 10.1, 30.6 (07/05/15) MASS IN NECK 01/11/2007 10/02/2015 documented as of this encounter (statuses as of 02/19/2022) [facility] History of Past illness Narrative* Problem Noted Date Resolved Date Dizziness 11/26/2015 01/13/2017 Anal or rectal pain 10/03/2015 10/03/2015 Anemia 07/25/2015 01/13/2017 Overview: Last H and H at [facility]: 10.1, 30.6 (07/05/15) MASS IN NECK 01/11/2007 10/02/2015 documented as of this encounter (statuses as of 02/26/2022) [facility] History of Past illness Narrative* Problem Noted Date Resolved Date Dizziness 11/26/2015 01/13/2017 Anal or rectal pain 10/03/2015 10/03/2015 Anemia 07/25/2015 01/13/2017 Overview: Last H and H at [facility]: 10.1, 30.6 (07/05/15) MASS IN NECK 01/11/2007 10/02/2015 documented as of this encounter (statuses as of 03/05/2022) [facility] History of Past illness Narrative* Problem Noted Date Resolved Date Dizziness 11/26/2015 01/13/2017 Anal or rectal pain 10/03/2015 10/03/2015 Anemia 07/25/2015 01/13/2017 Overview: Last H and H at [facility]: 10.1, 30.6 (07/05/15) MASS IN NECK 01/11/2007 10/02/2015 documented as of this encounter (statuses as of 05/12/2022) [facility] History of Past illness Narrative* Problem Noted Date Resolved Date Dizziness 11/26/2015 01/13/2017 Anal or rectal pain 10/03/2015 10/03/2015 Anemia 07/25/2015 01/13/2017 Overview: Last H and H at [facility]: 10.1, 30.6 (07/05/15) MASS IN NECK 01/11/2007 10/02/2015 documented as of this encounter (statuses as of 05/21/2022) [facility] History of Past illness Narrative* Problem Noted Date Resolved Date Dizziness 11/26/2015 01/13/2017 Anal or rectal pain 10/03/2015 10/03/2015 Anemia 07/25/2015 01/13/2017 Overview: Last H and H at [facility]: 10.1, 30.6 (07/05/15) MASS IN NECK 01/11/2007 10/02/2015 documented as of this encounter (statuses as of 05/31/2022) [facility] History of Past illness Narrative* Problem Noted Date Resolved Date Dizziness 11/26/2015 01/13/2017 Anal or rectal pain 10/03/2015 10/03/2015 Anemia 07/25/2015 01/13/2017 Overview: Last H and H at [facility]: 10.1, 30.6 (07/05/15) MASS IN NECK 01/11/2007 10/02/2015 documented as of this encounter (statuses as of 06/25/2022) [facility] History of Past illness Narrative* Problem Noted Date Resolved Date Dizziness 11/26/2015 01/13/2017 Anal or rectal pain 10/03/2015 10/03/2015 Anemia 07/25/2015 01/13/2017 Overview: Last H and H at [facility]: 10.1, 30.6 (07/05/15) MASS IN NECK 01/11/2007 10/02/2015 documented as of this encounter (statuses as of 07/09/2022) [facility] History of Past illness Narrative* Problem Noted Date Resolved Date Dizziness 11/26/2015 01/13/2017 Anal or rectal pain 10/03/2015 10/03/2015 Anemia 07/25/2015 01/13/2017 Overview: Last H and H at [facility]: 10.1, 30.6 (07/05/15) MASS IN NECK 01/11/2007 10/02/2015 documented as of this encounter (statuses as of 07/20/2022) [facility] History of Past illness Narrative* Problem Noted Date Resolved Date Dizziness 11/26/2015 01/13/2017 Anal or rectal pain 10/03/2015 10/03/2015 Anemia 07/25/2015 01/13/2017 Overview: Last H and H at [facility]: 10.1, 30.6 (07/05/15) MASS IN NECK 01/11/2007 10/02/2015 documented as of this encounter (statuses as of 08/03/2022) [facility] History of Past illness Narrative* Problem Noted Date Resolved Date Dizziness 11/26/2015 01/13/2017 Anal or rectal pain 10/03/2015 10/03/2015 Anemia 07/25/2015 01/13/2017 Overview: Last H and H at [facility]: 10.1, 30.6 (07/05/15) MASS IN NECK 01/11/2007 10/02/2015 documented as of this encounter (statuses as of 08/05/2022) [facility] History of Past illness Narrative* Problem Noted Date Resolved Date Dizziness 11/26/2015 01/13/2017 Anal or rectal pain 10/03/2015 10/03/2015 Anemia 07/25/2015 01/13/2017 Overview: Last H and H at [facility]: 10.1, 30.6 (07/05/15) MASS IN NECK 01/11/2007 10/02/2015 documented as of this encounter (statuses as of 08/19/2022) [facility] History of Past illness Narrative* Problem Noted Date Resolved Date Dizziness 11/26/2015 01/13/2017 Anal or rectal pain 10/03/2015 10/03/2015 Anemia 07/25/2015 01/13/2017 Overview: Last H and H at [facility]: 10.1, 30.6 (07/05/15) MASS IN NECK 01/11/2007 10/02/2015 documented as of this encounter (statuses as of 08/22/2022) [facility] History of Past illness Narrative* Problem Noted Date Resolved Date Dizziness 11/26/2015 01/13/2017 Anal or rectal pain 10/03/2015 10/03/2015 Anemia 07/25/2015 01/13/2017 Overview: Last H and H at [facility]: 10.1, 30.6 (07/05/15) MASS IN NECK 01/11/2007 10/02/2015 documented as of this encounter (statuses as of 08/27/2022) [facility] History of Past illness Narrative* Problem Noted Date Resolved Date Dizziness 11/26/2015 01/13/2017 Anal or rectal pain 10/03/2015 10/03/2015 Anemia 07/25/2015 01/13/2017 Overview: Last H and H at [facility]: 10.1, 30.6 (07/05/15) MASS IN NECK 01/11/2007 10/02/2015 documented as of this encounter (statuses as of 10/28/2022) [facility] History of Past illness Narrative* Problem Noted Date Resolved Date Dizziness 11/26/2015 01/13/2017 Anal or rectal pain 10/03/2015 10/03/2015 Anemia 07/25/2015 01/13/2017 Overview: Last H and H at [facility]: 10.1, 30.6 (07/05/15) MASS IN NECK 01/11/2007 10/02/2015 documented as of this encounter (statuses as of 10/28/2022) [facility] History of Past illness Narrative* Problem Noted Date Resolved Date Dizziness 11/26/2015 01/13/2017 Anal or rectal pain 10/03/2015 10/03/2015 Anemia 07/25/2015 01/13/2017 Overview: Last H and H at [facility]: 10.1, 30.6 (07/05/15) MASS IN NECK 01/11/2007 10/02/2015 documented as of this encounter (statuses as of 12/29/2022) [facility] History of Past illness Narrative* Problem Noted Date Resolved Date Dizziness 11/26/2015 01/13/2017 Anal or rectal pain 10/03/2015 10/03/2015 Anemia 07/25/2015 01/13/2017 Overview: Last H and H at [facility]: 10.1, 30.6 (07/05/15) MASS IN NECK 01/11/2007 10/02/2015 documented as of this encounter (statuses as of 03/11/2023) [facility] History of Past illness Narrative* Problem Noted Date Resolved Date Dizziness 11/26/2015 01/13/2017 Anal or rectal pain 10/03/2015 10/03/2015 Anemia 07/25/2015 01/13/2017 Overview: Last H and H at [facility]: 10.1, 30.6 (07/05/15) MASS IN NECK 01/11/2007 10/02/2015 documented as of this encounter (statuses as of 03/12/2023) [facility] History of Past illness Narrative* Problem Noted Date Resolved Date Dizziness 11/26/2015 01/13/2017 Anal or rectal pain 10/03/2015 10/03/2015 Anemia 07/25/2015 01/13/2017 Overview: Last H and H at [facility]: 10.1, 30.6 (07/05/15) MASS IN NECK 01/11/2007 10/02/2015 documented as of this encounter (statuses as of 05/19/2023) [facility] History of Past illness Narrative* Problem Noted Date Diagnosed Date Resolved Date Dizziness 11/26/2015 01/13/2017 Anal or rectal pain 10/03/2015 10/03/20 15 Anemia 07/25/2015 01/13/2017 Overview: Last H and H at [facility]: 10.1, 30.6 (07/05/15) MASS IN NECK 01/11/2007 10/02/2015 documented as of this encounter (statuses as of 06/25/2023) [facility] History of Past illness Narrative* Problem Noted Date Diagnosed Date Resolved Date Dizziness 11/26/2015 01/13/2017 Anal or rectal pain 10/03/2015 10/03/20 15 Anemia 07/25/2015 01/13/2017 Overview: Last H and H at [facility]: 10.1, 30.6 (07/05/15) MASS IN NECK 01/11/2007 10/02/2015 documented as of this encounter (statuses as of 07/07/2023) [facility] History of Past illness Narrative* Problem Noted Date Diagnosed Date Resolved Date Dizziness 11/26/2015 01/13/2017 Anal or rectal pain 10/03/2015 10/03/20 15 Anemia 07/25/2015 01/13/2017 Overview: Last H and H at [facility]: 10.1, 30.6 (07/05/15) MASS IN NECK 01/11/2007 10/02/2015 documented as of this encounter (statuses as of 07/08/2023) [facility] History of Past illness Narrative* Problem Noted Date Diagnosed Date Resolved Date Dizziness 11/26/2015 01/13/2017 Anal or rectal pain 10/03/2015 10/03/20 15 Anemia 07/25/2015 01/13/2017 Overview: Last H and H at [facility]: 10.1, 30.6 (07/05/15) MASS IN NECK 01/11/2007 10/02/2015 documented as of this encounter (statuses as of 09/25/2023) [facility] History of Past illness Narrative* Problem Noted Date Diagnosed Date Resolved Date Dizziness 11/26/2015 01/13/2017 Anal or rectal pain 10/03/2015 10/03/20 15 Anemia 07/25/2015 01/13/2017 Overview: Last H and H at [facility]: 10.1, 30.6 (07/05/15) MASS IN NECK 01/11/2007 10/02/2015 documented as of this encounter (statuses as of 10/29/2023) [facility] History of Past illness Narrative* Problem Noted Date Diagnosed Date Resolved Date Dizziness 11/26/2015 01/13/2017 Anal or rectal pain 10/03/2015 10/03/20 15 Anemia 07/25/2015 01/13/2017 Overview: Last H and H at [facility]: 10.1, 30.6 (07/05/15) Subdural hematoma 09/22/2009 11/28/2023 MASS IN NECK 01/11/2007 10/02/2015 documented as of this encounter (statuses as of 11/28/2023) [facility] Diagnosis Pulmonary emphysema, unspecified emphysema type (HCC) [facility] Diagnosis History of recent hospitalization- Primary Personal history of unspecified disease Aftercare for healing traumatic fracture of right femur Chest pain, unspecified type Essential hypertension Unspecified essential hypertension Urinary retention Retention of urine, unspecified On home oxygen therapy Dependence on supplemental oxygen Prediabetes Other abnormal glucose [facility]* Diagnosis Urinary frequency- Primary [facility] Diagnosis Benign paroxysmal positional vertigo due to bilateral vestibular disorder- Primary Dizziness Dizziness and giddiness Closed displaced fracture of pelvis, unspecified part of pelvis, sequela Imbalance Abnormality of gait Disequilibrium Dizziness and giddiness [facility]* Diagnosis Acute non-recurrent sinusitis, unspecified location- Primary Dizziness Dizziness and giddiness Annual physical exam Routine general medical examination at a health care facility Vitamin D deficiency Unspecified vitamin D deficiency Prediabetes Other abnormal glucose Hyperlipidemia, unspecified hyperlipidemia type [facility]* Diagnosis Medicare annual wellness visit, subsequent- Primary Routine general medical examination at a health care facility Dysuria [facility]* Diagnosis Shortness of breath- Primary Low oxygen saturation Abnormal arterial blood gases Pulmonary emphysema, unspecified emphysema type (HCC) Dizziness Dizziness and giddiness H/O: CVA (cerebrovascular accident) Transient ischemic attack (TIA), and cerebral infarction without residual deficits Hypertension, unspecified type Dilation of aorta (HCC) Chronic congestive heart failure, unspecified heart failure type (HCC) documented in this encounter [facility] for referral (narrative)* Diagnostic Procedure Only (Routine) - Authorized Specialty Diagnoses / Procedures Referred By Shaneka t Referred To Contact XR IMAGING Diagnoses Closed displaced fracture of pelvis, unspecified part of pelvis, sequela Procedures XR HIP BILATERAL 5V PEL/AP/LAT EACH HIP RADEX HIPS BILATERAL WITH PELVIS MINIMUM 5 VIEWS Linn Will MD [address] [place] [address] Xr Imaging Referral ID Status Reason Start Date Expiration Date Visits Requested Visits Authorized [id number] Authorized Auto-Generat ed Referral 08/22/2022 09/21/2023 1 1 [facility] Advance Directives No Advanced Directives Records FoundDocuments on File Type Date Recorded Patient 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 Advance Directive(s) Advance Directive(s) 01/21/2017 1:09 PM Advance Directive(s) 05/07/2015 1:23 PM Documents on File Type Date Recorded Patient 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 Advance Directive(s) 05/07/2015 1:23 PM Documents on File Type Date Recorded Patient 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 Advance Directive(s) 05/07/2015 1:23 PM Summary Purpose Family History No Family History Records Found Additional Source Comments Source Comments (unrecognize d section and content) In the event this informatio n is protected by the Federal Confidentiality of Alcohol and Drug Abuse Patient Records regulations: The Federal rules restrict any use of the information to criminally investigate or prosecute any alcohol or drug abuse patient.[facility] HospitalIn the event this information is protected by the Federal Confidentiality of Alcohol and Drug Abuse Patient Records regulations: The Federal rules restrict any use of the information to criminally investigate or prosecute any alcohol or drug abuse patient.[facility] HospitalIn the event this information is protected by the Federal Confidentiality of Alcohol and Drug Abuse Patient Records regulations: The Federal rules restrict any use of the information to criminally investigate or prosecute any alcohol or drug abuse patient.[facility] HospitalIn the event this information is protected by the Federal Confidentiality of Alcohol and Drug Abuse Patient Records regulations: The Federal rules restrict any use of the information to criminally investigate or prosecute any alcohol or drug abuse patient.[facility] HospitalIn the event this information is protected by the Federal Confidentiality of Alcohol and Drug Abuse Patient Records regulations: The Federal rules restrict any use of the information to criminally investigate or prosecute any alcohol or drug abuse patient.[facility] HospitalIn the event this information is protected by the Federal Confidentiality of Alcohol and Drug Abuse Patient Records regulations: The Federal rules restrict any use of the information to criminally investigate or prosecute any alcohol or drug abuse patient.[facility] HospitalIn the event this information is protected by the Federal Confidentiality of Alcohol and Drug Abuse Patient Records regulations: The Federal rules restrict any use of the information to criminally investigate or prosecute any alcohol or drug abuse patient.[facility] HospitalIn the event this information is protected by the Federal Confidentiality of Alcohol and Drug Abuse Patient Records regulations: The Federal rules restrict any use of the information to criminally investigate or prosecute any alcohol or drug abuse patient.[facility] HospitalIn the event this information is protected by the Federal Confidentiality of Alcohol and Drug Abuse Patient Records regulations: The Federal rules restrict any use of the information to criminally investigate or prosecute any alcohol or drug abuse patient.[facility] HospitalIn the event this information is protected by the Federal Confidentiality of Alcohol and Drug Abuse Patient Records regulations: The Federal rules restrict any use of the information to criminally investigate or prosecute any alcohol or drug abuse patient.[facility] HospitalIn the event this information is protected by the Federal Confidentiality of Alcohol and Drug Abuse Patient Records regulations: The Federal rules restrict any use of the information to criminally investigate or prosecute any alcohol or drug abuse patient.[facility] HospitalIn the event this information is protected by the Federal Confidentiality of Alcohol and Drug Abuse Patient Records regulations: The Federal rules restrict any use of the information to criminally investigate or prosecute any alcohol or drug abuse patient.[facility] HospitalIn the event this information is protected by the Federal Confidentiality of Alcohol and Drug Abuse Patient Records regulations: The Federal rules restrict any use of the information to criminally investigate or prosecute any alcohol or drug abuse patient.[facility] HospitalIn the event this information is protected by the Federal Confidentiality of Alcohol and Drug Abuse Patient Records regulations: The Federal rules restrict any use of the information to criminally investigate or prosecute any alcohol or drug abuse patient.[facility] HospitalIn the event this information is protected by the Federal Confidentiality of Alcohol and Drug Abuse Patient Records regulations: The Federal rules restrict any use of the information to criminally investigate or prosecute any alcohol or drug abuse patient.[facility] HospitalIn the event this information is protected by the Federal Confidentiality of Alcohol and Drug Abuse Patient Records regulations: The Federal rules restrict any use of the information to criminally investigate or prosecute any alcohol or drug abuse patient.[facility] HospitalIn the event this information is protected by the Federal Confidentiality of Alcohol and Drug Abuse Patient Records regulations: The Federal rules restrict any use of the information to criminally investigate or prosecute any alcohol or drug abuse patient.[facility] HospitalIn the event this information is protected by the Federal Confidentiality of Alcohol and Drug Abuse Patient Records regulations: The Federal rules restrict any use of the information to criminally investigate or prosecute any alcohol or drug abuse patient.[facility] HospitalIn the event this information is protected by the Federal Confidentiality of Alcohol and Drug Abuse Patient Records regulations: The Federal rules restrict any use of the information to criminally investigate or prosecute any alcohol or drug abuse patient.[facility] HospitalIn the event this information is protected by the Federal Confidentiality of Alcohol and Drug Abuse Patient Records regulations: The Federal rules restrict any use of the information to criminally investigate or prosecute any alcohol or drug abuse patient.[facility] HospitalIn the event this information is protected by the Federal Confidentiality of Alcohol and Drug Abuse Patient Records regulations: The Federal rules restrict any use of the information to criminally investigate or prosecute any alcohol or drug abuse patient.[facility] HospitalIn the event this information is protected by the Federal Confidentiality of Alcohol and Drug Abuse Patient Records regulations: The Federal rules restrict any use of the information to criminally investigate or prosecute any alcohol or drug abuse patient.[facility] HospitalIn the event this information is protected by the Federal Confidentiality of Alcohol and Drug Abuse Patient Records regulations: The Federal rules restrict any use of the information to criminally investigate or prosecute any alcohol or drug abuse patient.[facility] HospitalIn the event this information is protected by the Federal Confidentiality of Alcohol and Drug Abuse Patient Records regulations: The Federal rules restrict any use of the information to criminally investigate or prosecute any alcohol or drug abuse patient.[facility] HospitalIn the event this information is protected by the Federal Confidentiality of Alcohol and Drug Abuse Patient Records regulations: The Federal rules restrict any use of the information to criminally investigate or prosecute any alcohol or drug abuse patient.[facility] HospitalIn the event this information is protected by the Federal Confidentiality of Alcohol and Drug Abuse Patient Records regulations: The Federal rules restrict any use of the information to criminally investigate or prosecute any alcohol or drug abuse patient.[facility] HospitalIn the event this information is protected by the Federal Confidentiality of Alcohol and Drug Abuse Patient Records regulations: The Federal rules restrict any use of the information to criminally investigate or prosecute any alcohol or drug abuse patient.[facility] HospitalIn the event this information is protected by the Federal Confidentiality of Alcohol and Drug Abuse Patient Records regulations: The Federal rules restrict any use of the information to criminally investigate or prosecute any alcohol or drug abuse patient.[facility] HospitalIn the event this information is protected by the Federal Confidentiality of Alcohol and Drug Abuse Patient Records regulations: The Federal rules restrict any use of the information to criminally investigate or prosecute any alcohol or drug abuse patient.[facility] Reason for Visit (unrecogniz ed section and content) Reason Comments Orders Reason Comments Recheck [facility] R hip fracture Reason Comments Patient Update Reason Comments Results Reason Comments Refill Request Reason Comments Urinary Frequency confusion x7 days, p resented with daughter Diarrhea lower back pain rate d 10 on pain scale, Hx (RT) hip surgery March 2022 Reason Comments Results Orders Reason Comments Home Health orders Reason Comments home health requesting records Reason Comments Chart prep Reason Onset Date Comments Refill Request 08/05/2022 Reason Comments OT Update Reason Comments Dizziness Ran out of medicatio n - meclizine Reason Comments Insurance Authorization Reason Onset Date Comments Refill Request 10/27/2022 Reason Onset Date Comments Refill Request 12/28/2022 Reason Comments Dizziness Dizziness Reason Comments Vomiting Reason Comments Medicare Wellness Exam Annual Medicare Reason Comments patient supplies Reason Onset Date Comments Refill Request 07/06/2023 Reason Comments Form for incontinent supplies Reason Onset Date Comments Refill Request 09/23/2023 Reason Onset Date Comments Refill Request 10/29/2023 Reason Comments Recheck 6 month follow up Care Teams (unrecognized sec tion and content) Coiled Coil Inspector Relationship Specialty Start Date End Date Linn Will MD [address] [place], [place] [phone] PCP - General Internal Medicine 09/09/20 [place] from [facility] Registered Nurse 04/02/15 [facility] Home Nurse Registered Nurse 04/02/15 [facility] Physical Therapist 07/25/15 [employer]iled Co[employer] Inspector Relationship Specialty Start Date End Date Linn Will MD [address] [place], [place] [phone] PCP - General Internal Medicine 09/09/20 [place] from [facility] Registered Nurse 04/02/15 [facility] Home Nurse Registered Nurse 04/02/15 [place] Physical Therapist 07/25/15 [employer] Co[employer] Inspector Relationship Specialty Start Date End Date Linn Will MD [address] [place], [place] [phone] PCP - General Internal Medicine 09/09/20 [place] from [facility] Registered Nurse 04/02/15 [facility] Home Nurse Registered Nurse 04/02/15 [place] Physical Therapist 07/25/15 [employer]iled Co[employer] Inspector Relationship Specialty Start Date End Date Linn Will MD [address] [facility] [place] [place] [address] PCP - General Internal Medicine 09/09/20 [place] from [facility] Registered Nurse 04/02/15 [facility] Home Nurse Registered Nurse 04/02/15 [facility] Physical Therapist 07/25/15 [employer]iled Co[employer] Inspector Relationship Specialty Start Date End Date Linn Will MD [address] [place] [address] PCP - General Internal Medicine 09/09/20 [place] from [facility] Registered Nurse 04/02/15 [facility] Home Nurse Registered Nurse 04/02/15 [facility] Physical Therapist 07/25/15 [employer]iled Co[employer] Inspector Relationship Specialty Start Date End Date Linn Will MD [address] [place] [address] PCP - General Internal Medicine 09/09/20 [place] from [facility] Registered Nurse 04/02/15 [facility] Home Nurse Registered Nurse 04/02/15 [facility] Physical Therapist 07/25/15 [employer]iled Co[employer] Inspector Relationship Specialty Start Date End Date Linn Will MD [address] [place] [address] PCP - General Internal Medicine 09/09/20 [place] from [facility] Registered Nurse 04/02/15 [facility] Home Nurse Registered Nurse 04/02/15 [facility] Physical Therapist 07/25/15 [employer]iled Co[employer] Inspector Relationship Specialty Start Date End Date Linn Will MD [address] [place] [address] PCP - General Internal Medicine 09/09/20 [place] from [facility] Registered Nurse 04/02/15 [facility] Home Nurse Registered Nurse 04/02/15 [facility] Physical Therapist 07/25/15 [employer]iled Co[employer] Inspector Relationship Specialty Start Date End Date Linn Will MD [address] [place] [address] PCP - General Internal Medicine 09/09/20 [place] from [facility] Registered Nurse 04/02/15 [facility] Home Nurse Registered Nurse 04/02/15 [facility] Physical Therapist 07/25/15 [employer]iled Co[employer] Inspector Relationship Specialty Start Date End Date Linn Will MD [address] [place], [place] [address] [phone] PCP - General Internal Medicine 09/09/20 [place] from [facility] Registered Nurse 04/02/15 [facility] Home Nurse Registered Nurse 04/02/15 [place] Physical Therapist 07/25/15 [employer]iled Co[employer] Inspector Relationship Specialty Start Date End Date Linn Will MD [address] [place], [place] [address] [phone] PCP - General Internal Medicine 09/09/20 [place] from [facility] Registered Nurse 04/02/15 [facility] Home Nurse Registered Nurse 04/02/15 [facility] Physical Therapist 07/25/15 Coiled Co[employer] Inspector Relationship Specialty Start Date End Date Linn Will MD [address] [place] [address] PCP - General Internal Medicine 09/09/20 [place] from [facility] Registered Nurse 04/02/15 [facility] Home Nurse Registered Nurse 04/02/15 [facility] Physical Therapist 07/25/15 Coiled Co[employer] Inspector Relationship Specialty Start Date End Date Linn Will MD [address] [place], [place] [phone] PCP - General Internal Medicine 09/09/20 [place] from [facility] Registered Nurse 04/02/15 [facility] Home Nurse [facility]02[facility]/25[facility]15 [employer]iled Co[employer] Inspector Relationship Specialty Start Date End Date Linn Will MD [address] [place], [place] [id number] [phone] PCP - General Internal Medicine 09/09/20 [place] from [facility] Registered Nurse 04/02/15 [facility] Home Nurse Registered Nurse 04/02/15 [facility] Physical Therapist 07/25/15 [employer]iled Co[employer] Inspector Relationship Specialty Start Date End Date Linn Will MD [address] [place], [place] [address] [phone] PCP - General Internal Medicine 09/09/20 [place] from [facility] Registered Nurse 04/02/15 [facility] Home Nurse Registered Nurse 04/02/15 [facility] 07/25/15 Coiled Co[employer] Inspector Relationship Specialty Start Date End Date Linn Will MD [address] [place], [place] [address] [phone] PCP - General Internal Medicine 09/09/20 [place] from [facility] Registered Nurse 04/02/15 [facility] Home Nurse Registered Nurse 04/02/15 [facility] Physical Therapist 07/25/15 [employer]iled Co[employer] Inspector Relationship Specialty Start Date End Date Linn Will MD [address] [place], [place] [address] [phone] PCP - General Internal Medicine 09/09/20 [facility] Hernandez Registered Nurse 04/02/15 [facility] Home Nurse Registered Nurse 04/02/15 [facility] PASCUAL Physical Therapist 07/25/15 INFORMATION SOURCE (unrecogn ized section and content) FOR RECORDS PERTAINING TO PATIENTS WHO ARE OR HAVE BEEN ENROLLED IN A CHEMICAL DEPENDENCY/SUBSTANCEABUSE PROGRAM, SOME INFORMATION MAY BE OMITTED. This clinical summary was aggregated from multiple sources. Caution should be exercised in using it in the provision of clinical care. This summary normalizes information from multiple sources, and as a consequence, information in this document may materially change the coding, format and clinical context of patient data. In addition, data may be omitted in some cases. CLINICAL DECISIONS SHOULD BE BASED ON THE PRIMARY CLINICAL RECORDS. [facility] [employer] provides no warranty or guarantee of the accuracy or completeness of information in this document.
== END 2023-12-22 16:39 | disposition home or self-care (01) ==
LOC: ED 16:28
PROVIDERS: Emergency Provider Emergency Medicine; PCP Internal Medicine; Visit Provider Emergency Medicine
DX: R10.32 Left lower quadrant pain (principal); I11.0 Hypertensive heart disease with heart failure; I50.22 Chronic systolic (congestive) heart failure; Z79.02 Long term (current) use of antithrombotics/antiplatelets; Z79.82 Long term (current) use of aspirin; Z79.899 Other long term (current) drug therapy; Z86.73 Personal history of transient ischemic attack (TIA), and cerebral infarction without residual deficits
CPT/HCPCS: 74176; 80053; 81001; 83605; 85025; 87077; 87086; 87088; 87186; 96360; 96361; 99283; J7030

== ENCOUNTER → 2024-01-14 | Outpatient (CLI) | payer MEDICARE, MEDICAID, SELFPAY ==
--- NOTE | 2024-01-14 13:43 | CDU_ITS ---
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 Velocities/BP Lt. Velocities/BP Prox CCA 110.2/9.1 cm/sec. Prox CCA 66.2/9.7 cm/sec. Mid CCA 68.8/7.3 cm/sec. Mid CCA 58.8/12.2 cm/sec. Dist CCA 47.2/10.9 cm/sec. Dist CCA 51.5/6.0 cm/sec. Prox ICA 63.7/15.8 cm/sec. Prox ICA 74.8/9.7 cm/sec. Mid ICA 99.3/14.6 cm/sec. Mid ICA 55.1/12.2 cm/sec. Dist ICA 86.1/14.6 cm/sec. Dist ICA 118.0/21.2 cm/sec. Rt. ICA/CCA = 99.3/68.8=1.4. Lt. ICA/CCA = 118.2/58.8=2.0. Prox ECA 127.1/10.2 cm/sec. Prox ECA 71.1/0.0 cm/sec. Rt. Vert. 61.3/10.9 cm/sec. Lt. Vert. 35.8/9.4 cm/sec. Right Extracranial There is heterogeneous, irregular atherosclerotic plaque noted in the right common carotid artery. There is heterogeneous, irregular atherosclerotic plaque noted in the right internal carotid artery. The tortuous nature of the right internal carotid artery may result in flow velocities overestimating the degree of stenosis. There is heterogeneous, irregular atherosclerotic plaque noted in the right external carotid artery. Antegrade flow is noted in the right vertebral artery. Left Extracranial There is heterogeneous, smooth atherosclerotic plaque noted in the left common carotid artery. There is heterogeneous, irregular atherosclerotic plaque noted in the left internal carotid artery. The tortuous nature of the left internal carotid artery may result in flow velocities overestimating the degree of stenosis. There is heterogeneous, irregular atherosclerotic plaque noted in the left external carotid artery. Antegrade flow is noted in the left vertebral artery. Procedure Carotid Duplex 15609. This is a Carotid Duplex examination using B-mode, color flow and specral Doppler. The study was technically difficult. Due to PT unable to keep head still and had nasal drainage. Exam performed in department. VL/Carotid Duplex Ultrasound Interpretation Summary Mild (<50%) stenosis right extracranial internal carotid. Mild (<50%) stenosis left extracranial internal carotid. Patent and antegrade vertebrals bilaterally. Ordering Physician: Raoul Moncada Referring Physician: Linn Will Performed By: Lana Ramon, RDCS, RVT
== END | disposition home or self-care (01) ==
PROVIDERS: PCP Internal Medicine; Referring Provider Ophthalmology; Visit Provider Ophthalmology
DX: H34.8320 Tributary (branch) retinal vein occlusion, left eye, with macular edema (principal)
CPT/HCPCS: 93880

== ENCOUNTER 2024-08-25 07:39 | Inpatient (IN) | payer MEDICARE, MEDICAID, SELFPAY ==
[2024-08-25] VITALS (10 sets, daily range): BP systolic 120–153; BP diastolic 56–81; PULSE 57–72; RESP 16–21; TEMP 36.2–36.7; O2SAT 97–100; BMI 28.9; BMI 28.4
--- NOTE | 2024-08-25 08:06 | EKG12_ITS ---
Test Reason : gi bleed Blood Pressure : / mmHG Vent. Rate : 060 BPM Atrial Rate : 060 BPM P-R Int : 172 ms QRS Dur : 138 ms QT Int : 468 ms P-R-T Axes : 070 -21 256 degrees QTc Int : 468 ms Normal sinus rhythm Right bundle branch block Minimal voltage criteria for LVH, with repolarization Confirmed by SHARRON LAM, CESILIA ([id number]), non linear editor SAMAN MANUEL ([id number]) on 08/29/2024 9:10:18 AM Referred By: Confirmed By:CESILIA MCDERMOTT MD
--- NOTE | 2024-08-25 08:07 | EX.ED.DYSGE1 ---
HPI History of Present Illness Chief Complaint: GI Bleed Informant: patient, family and EMS Narrative Narrative: 88-year-old female on Plavix presenting to the emergency room with GI bleed. Patient states that she got up this morning and had bright red blood per her rectum. She states there was not any stool. She notes left lower abdominal discomfort and cramping. The patient sees Dr. Herrera from gastroenterology. Noted history of diverticulitis ischemic stroke COPD heart failure/coronary artery disease. Patient denies any syncope. She has baseline confusion. She has an aide that stays with her. 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 Closed pelvic fracture Pelvic fracture Fall from slipping Essential hypertension Hypertension Normocytic anemia Closed head injury Closed fracture of right hip Fall Adult failure to thrive Weakness Dizziness Fracture of rib Dilatation of aorta Chronic systolic (congestive) heart failure Angina pectoris Subdural hematoma Insomnia Urinary incontinence History of stroke Overactive bladder Allergic rhinitis COPD (chronic obstructive pulmonary disease) Asthma Vitamin D deficiency Edema Urinary tract infection Hallucinations Intellectual disability Encephalopathy Fall Hypokalemia Acute cystitis Acute ischemic stroke Left hip pain Decreased level of consciousness Lethargy Shortness of breath HLD (hyperlipidemia) Gastroesophageal reflux disease Cerebrovascular disease Benign essential HTN Home Medications ?Medication ?Instructions ?Recorded ?Last Taken ?Type atenolol 50 mg tablet 50 mg PO DAILY blood pressure 01/31/19 09/10/21 History atorvastatin 10 mg tablet 10 mg PO DAILY cholesterol 01/31/19 09/09/21 History clopidogrel 75 mg tablet 75 mg PO DAILY heart health 01/31/19 09/10/21 History loratadine 10 mg tablet 10 mg PO DAILY allergies 01/31/19 09/10/21 History omeprazole 20 mg capsule,delayed 20 mg PO DAILY GERD 01/31/19 09/10/21 History release potassium chloride 20 mEq 20 meq PO BID supplement 09/01/19 09/10/21 History tablet,extended release(part/cryst) albuterol sulfate 90 mcg/actuation 1 - 2 puff IH Q4H PRN PRN Wheezing 06/13/20 2 Weeks Ago History aerosol inhaler ~08/27/21 cholecalciferol (vitamin D3) 25 2,000 unit PO DAILY supplement 06/13/20 09/10/21 History mcg (1,000 unit) tablet melatonin 5 mg tablet 5 mg PO QHS PRN Sleep 09/10/21 Unknown History oxybutynin chloride 15 mg 10 mg PO DAILY BLADDER 09/10/21 09/10/21 History tablet,extended release 24 hr meclizine 25 mg tablet 25 mg PO TID PRN dizziness #30 tabs 09/11/21 Unknown Rx furosemide 40 mg tablet 80 mg PO DAILY CHF 12/01/21 Unknown History nitroglycerin 0.4 mg sublingual 0.4 mg sublingual Q5-15M PRN chest 12/01/21 Unknown Rx tablet pain #25 tabs amlodipine 2.5 mg tablet 2.5 mg PO DAILY blood pressure 01/25/22 Unknown History aspirin 81 mg tablet 81 mg PO DAILY heart health 01/25/22 Unknown History fluticasone 250 mcg-salmeterol 50 1 inh inhalation BID breathing 01/25/22 Unknown History mcg/dose blistr powdr for inhalation acetaminophen 500 mg tablet 1,000 mg PO Q8 Pain 01/29/22 Unknown History tamsulosin 0.4 mg capsule 0.4 mg PO DAILY@1730 30 days #30 02/16/22 Unknown Rx caps oxycodone 5 mg tablet 5 mg PO Q4H PRN PRN Pain Score 06/12/22 Unknown Rx 6-10 3 days #18 tabs doxycycline hyclate 100 mg tablet 100 mg PO BID 03/12/23 Unknown History levofloxacin 500 mg tablet 500 mg PO DAILY #7 tabs 03/12/23 Unknown Rx ondansetron 4 mg disintegrating 4 mg PO Q8H PRN PRN Nausea #10 tabs 03/12/23 Unknown Rx tablet isosorbide mononitrate 60 mg See Rx Instructions .Route 04/13/23 Unknown Rx tablet,extended release 24 hr .COMPLEX #56 tabs losartan 100 mg tablet See Rx Instructions .Route 04/13/23 Unknown Rx .COMPLEX #28 tabs Allergy/AdvReac Type Severity Reaction Status Date / Time adhesive Allergy Rash Verified 07/12/24 13:54 amitriptyline Allergy CONFUSION Verified 07/12/24 13:54 codeine Allergy Hives Verified 07/12/24 13:54 hydrocodone bitartrate (From Allergy Hives Verified 07/12/24 13:54 Vicodin) Iodinated Contrast Media Allergy Hives Verified 07/12/24 13:54 (Iodinated Contrast Media - IV Dye) naproxen Allergy Unknown Verified 07/12/24 13:54 Penicillins Allergy Rash Verified 07/12/24 13:54 phenytoin sodium (From Allergy Hives Verified 07/12/24 13:54 Dilantin) phenytoin sodium extended Allergy Hives Verified 07/12/24 13:54 (From Dilantin) silicone Allergy Hives Verified 07/12/24 13:54 Family History Sister Heart disease Surgical History S/P ORIF (open reduction internal fixation) fracture History of umbilical hernia repair History of hysterectomy History of breast biopsy History of brain surgery S/P ORIF (open reduction internal fixation) fracture (~05/19/15) Social History household members: children and other details: Son. Smoking Status: Never smoker alcohol intake: never substance use type: does not use caffeine: Yes Type: carbonated beverages and coffee ROS ROS ED Constitutional Constitutional ED: Denies chills, fever(s) or weight loss Eyes Eyes: Denies change in vision or diplopia ENT ENT ED: Denies ear pain, rhinorrhea or sore throat Cardiovascular Cardiovascular: Denies chest pain, orthopnea, palpitations or racing heartbeat Respiratory/Chest Respiratory/Chest: Denies cough, dyspnea or orthopnea Gastrointestinal Gastrointestinal: Reports abdominal pain and other Details: Bright red blood per rectum ; Denies diarrhea, nausea or vomiting Genitourinary Genitourinary ED: Denies dysuria, hematuria or urinary frequency Musculoskeletal Musculoskeletal: Denies arthralgias or myalgias Integumentary Denies abscess or rash Neurologic Neurologic: Denies headache(s) or weakness Psychiatric Psychiatric: Denies anxiety, depression, suicidal ideation or suicidal thoughts Endocrine Endocrinology: Denies polydipsia, polyphagia or polyuria Allergic/Immunologic Allergic/Immunologic ED: Denies mouth swelling, tongue swelling or urticaria EXAM Physical Exam Const Vital Signs: 08/25/24 07:41 08/25/24 10:48 08/25/24 12:00 Temperature 97.5 F L Temperature Source Oral Pulse Rate 72 64 58 L Respiratory Rate 16 18 21 H Blood Pressure 120/65 127/64 H 135/71 H Blood Pressure Mean 83 85 92 Pulse Ox 97 100 Oxygen Delivery Method Nasal Cannula Nasal Cannula Nasal Cannula Oxygen Flow Rate (L/min) 4 100 2 Positive well nourished and well developed General Appearance ED: well developed HEENT Reports normocephalic, head/scalp atraumatic and moist mucous membranes Eyes PERRL and EOMs intact bilaterally Neck no lymphadenopathy, supple and no JVD Resp normal respiratory effort and clear to auscultation bilaterally Cardio regular rate, regular rhythm and no murmurs GI Inspection: Negative for abdominal distention Auscultation: normoactive bowel sounds Palpation: soft and tender LLQ; Negative for guarding or rebound tenderness present Narrative: Bright red blood on rectal exam Back/Spine no CVA tenderness and normal ROM Extremity normal to inspection General Extremety ED: Negative for edema General Extremity: Negative for edema Neuro oriented x3 and CN's II-XII intact bilaterally Sensorium / Orientation: alert Motor Exam: strength 5/5 throughout Psych mental status grossly normal Mood & Affect: Negative for depressed or tearful Skin no rashes or lesions noted and no wounds Skin Narrative: Dried blood on feet MDM MDM MDM Narrative Medical decision making narrative: Differential diagnosis includes but not limited to lower GI bleed AV malformation internal hemorrhoids diverticular bleed aortic enteric fistula anemia requiring transfusion dehydration hypovolemic shock patient's white count 13.6 with hemoglobin of 11.3 platelet count of 362 lactic acid is 2 she is O+. BUN 27 creatinine 1.45. Patient has an allergy to IV dye. A noncontrasted abdominal CT does not show any inflammatory changes. EKG is a normal sinus rhythm with a ventricular rate of 60 bpm with noted right bundle branch block. Patient has not had any hypotension here in the department. Patient is 88 years old with an apparent large GI bleed. While hemodynamically stable here I do think it is reasonable that we observe her in the hospital. Do not believe she needs a blood transfusion at the current time. Patient lives at home. History & Record Review Discussion w/independent historian: Patient Lab Data Attestation: I reviewed the patient's lab results. Labs: Laboratory Results - last 24 hr 08/25/24 08/25/24 08:00 09:10 WBC 13.6 H RBC 3.84 L Hgb 11.3 L Hct 35.1 L MCV 91.4 MCH 29.4 MCHC 32.2 RDW Std Deviation 45.2 H RDW Coeff of Taina 13.4 Plt Count 362 MPV 9.7 Immature Gran % (Auto) 1.100 H Neut % (Auto) 46.0 L Lymph % (Auto) 19.5 Gonzales % (Auto) 3.6 Eos % (Auto) 28.5 H Baso % (Auto) 1.3 H Absolute Neuts (auto) 6.2 Absolute Lymphs (auto) 2.65 Nucleated RBC % 0 PT 14.0 INR 1.1 APTT 24.7 Sodium 140 Potassium 3.9 Chloride 111 H Carbon Dioxide 22.0 Anion Gap 7 BUN 27 H Creatinine 1.45 H Estim Creat Clear Calc 29.94 Est GFR (MDRD) Af Amer 44 L Est GFR (MDRD) Non-Af 36 L BUN/Creatinine Ratio 18.6 Glucose 178 H Lactic Acid 2.0 Calcium 9.5 Magnesium 1.8 Total Bilirubin 0.30 Direct Bilirubin 0.13 AST 13 L ALT 16 Alkaline Phosphatase 81 Total Protein 7.8 Albumin 3.0 L Globulin 4.8 H Lipase 76 H Blood Type O POSITIVE Antibody Screen NEGATIVE Radiography Diagnostic Testing: Clinical Impression(s) from Imaging Studies Abdomen/Pelvis CT 08/25/24 09:42 IMPRESSION: Sigmoid diverticulosis without evidence of diverticulitis. Findings suggestive of small gallstones or sludge along the dependent portion of the gallbladder lumen. Electronically Signed: Artie Chester MD at 10:24 EDT , Management Discussion w/another healthcare provider: Hospitalist (Dr Calabrese) Discharge Plan Triage Chief Complaint: GI Bleed ED Provider: Richard Nuñez Dx/Rx/DC Orders Prescriptions: No Action furosemide 40 mg tablet 80 mg PO DAILY nitroglycerin 0.4 mg tablet, sublingual 0.4 mg SUBLINGUAL Q5-15M PRN (Reason: chest pain) Qty: 25 3RF atorvastatin 10 MG tablet 10 mg PO DAILY clopidogrel 75 MG tablet 75 mg PO DAILY omeprazole 20 MG capsule 20 mg PO DAILY atenolol 50 MG tablet 50 mg PO DAILY loratadine 10 MG tablet 10 mg PO DAILY potassium chloride 20 mEq tablet,ER particles/crystals 20 meq PO BID albuterol sulfate 90 mcg/actuation HFA aerosol inhaler 1 - 2 puff IH Q4H PRN PRN (Reason: Wheezing) cholecalciferol (vitamin D3) 1,000 UNIT tablet 2,000 unit PO DAILY oxybutynin chloride 15 mg tablet extended release 24hr 10 mg PO DAILY melatonin 5 mg Tablet 5 mg PO QHS PRN (Reason: Sleep) meclizine 25 mg tablet 25 mg PO TID PRN (Reason: dizziness) Qty: 30 1RF fluticasone propion-salmeterol 250-50 mcg/dose Blister With Device 1 inh INHALATION BID amlodipine 2.5 mg Tablet 2.5 mg PO DAILY aspirin 81 mg Tablet 81 mg PO DAILY acetaminophen 500 mg tablet 1,000 mg PO Q8 tamsulosin 0.4 mg Capsule 0.4 mg PO DAILY@1730 30 Days Qty: 30 0RF oxycodone 5 mg Tablet 5 mg PO Q4H PRN PRN (Reason: Pain Score 6-10) 3 Days Qty: 18 0RF doxycycline hyclate 100 mg tablet 100 mg PO BID Patient Comments: TAKE 1 TABLET BY MOUTH TWICE DAILY levofloxacin 500 mg tablet 500 mg PO DAILY Qty: 7 0RF ondansetron 4 mg tablet,disintegrating 4 mg PO Q8H PRN PRN (Reason: Nausea) Qty: 10 0RF losartan 100 mg tablet See Rx Instructions .ROUTE .COMPLEX Qty: 28 12RF Dose Instruction: TAKE 1 TABLET BY MOUTH DAILY FOR BLOOD PRESSURE Rx Instructions: TAKE 1 TABLET BY MOUTH DAILY FOR BLOOD PRESSURE isosorbide mononitrate 60 mg tablet extended release 24 hr See Rx Instructions .ROUTE .COMPLEX Qty: 56 12RF Dose Instruction: TAKE 1 TABLET BY MOUTH TWICE A DAY Rx Instructions: TAKE 1 TABLET BY MOUTH TWICE A DAY Primary Care Provider: Linn Will Referrals: Linn Will MD [Primary Care Provider] - Print Language: Turkmen
[2024-08-25 08:14] LABS: Absolute Lymphocyte Count 2.65 X10^3/uL (0.83-4.51); Absolute Neutrophil Count 6.2 X10^3/uL (2.0-7.7); Basophil# 0.17 X10^3/uL; Basophil% 1.3 % (0-1); Eosinophil# 3.87 X10^3/uL; Eosinophils% 28.5 % (0-5); Hematocrit 35.1 % (37-47); Hemoglobin 11.3 g/dL (12.0-15.0); Lymphocyte # 2.65 X10^3/ul (0.83-4.51); Lymphocyte % 19.5 % (19-41); Mean Corp Hgb Conc 32.2 g/dL (32-36); Mean Corpuscular Hgb 29.4 pg (27.0-32.0); Mean Corpuscular Volume 91.4 fL (81-99); Mean Platelet Vol. 9.7 fl (6.2-12.0); Monocyte# 0.49 X10^3/uL; Monocyte% 3.6 % (0-10); NRBC Flagged by Analyzer 0 % (0-5); Neutrophil # 6.23 X10^3/uL (2.7-7.7); POSITIVE DIFFERENTIAL YES; Platelet Count 362 K/mm3 (150-450); RBC Distribution Width CV 13.4 % (11.6-14.6); RBC Distribution Width SD 45.2 fl (35.1-43.9); Red Blood Count 3.84 M/mm3 (4.2-5.4); White Blood Count 13.6 K/mm3 (4.4-11.0)
[2024-08-25] MEDS: 0.9% Normal Saline (1000mL) 1,000 ML 999 ML IV (08:19)
[2024-08-25 08:23] LABS: International Normalized Ratio 1.1
[2024-08-25 08:24] LABS: Partial Thromboplast Time 24.7 Seconds (24.1-36.2)
[2024-08-25 08:30] LABS: AST(SGOT) 13 U/L (15-37); Alanine Aminotransfer ALT/SGPT 16 U/L (13-56); Alkaline Phosphatase 81 U/L (45-117); Anion Gap 7 (5-15); BUN 27 mg/dL (7-18); BUN/Creat Ratio 18.6 RATIO (10-20); Bilirubin, Direct 0.13 mg/dL (0.00-0.30); Calcium,Total 9.5 mg/dL (8.5-10.1); Chloride 111 mmol/L (98-107); Creatinine, Serum 1.45 mg/dL (0.55-1.02); EST Glomerular Filtration Rate 36 mL/min (>60); Est Glom Filt Rate - Afr Amer 44 mL/min (>60); Estimated Creatinine Clearance 29.94 ml/min; Globulin 4.8 g/dL (2.2-4.2); Glucose 178 mg/dL (74-106); Lipase 76 U/L (13-75); Potassium 3.9 mmol/L (3.5-5.1); Protein, Total 7.8 g/dL (6.4-8.2); Sodium Level 140 mmol/L (136-145)
[2024-08-25 08:43] LABS: Differential Indicated SCAN CRITERIA MET
--- NOTE | 2024-08-25 09:42 | CT_ITS ---
STUDY: CT ABDOMEN AND PELVIS WITHOUT CONTRAST REASON FOR EXAM: Female, 88 years old. LLQ Pain Bleeding Diverticulitis RADIATION DOSAGE (If Supplied By Facility): CTDIvol = ( 11.35 ) mGy, DLP = ( 555.84 ) mGycm TECHNIQUE: Transaxial images were obtained from the dome of the diaphragm to the symphysis pubis without oral contrast, and without intravenous contrast. Sagittal and coronal images were reconstructed. Individualized dose optimization techniques were used for this CT. COMPARISON: Comparison is made with prior study December 22, 2023. FINDINGS: The visualized lung bases are unremarkable. Coronary artery calcification. Cardiomegaly. Normal liver. Questionable tiny layering gallstones versus sludge in the dependent portion of the gallbladder lumen. Normal spleen. Normal pancreas. Normal bilateral adrenal glands. Stable 2 cm cyst in the upper lateral aspect of the right kidney. Normal left kidney. Normal visualized stomach. Normal small intestine. There are multiple colonic diverticula consistent with diverticulosis. There is non-visualization of the appendix. There is diffuse atherosclerotic calcification of the abdominal aorta and its major visceral branches, without a demonstrated aneurysm. Normal inferior vena cava. Normal retroperitoneum. Once again, there is evidence of a cystocele. There is absence of the uterus consistent with a prior hysterectomy. There is a right-sided inguinal hernia containing adipose tissue. There are mild degenerative changes of the visualized lumbar spine. Status post ORIF bilateral intertrochanteric fractures. Healed fracture of the left superior pubic ramus. CT/Abdomen/Pelvis without Cont IMPRESSION: Sigmoid diverticulosis without evidence of diverticulitis. Findings suggestive of small gallstones or sludge along the dependent portion of the gallbladder lumen. Electronically Signed: Artie Chester MD at 10:24 EDT ,
--- NOTE | 2024-08-25 12:43 | HP.PCM.HOS_ITS ---
HPI - General General Date of Admission: 08/25/24 Date of Service: 08/25/24 Chief Complaint: Rectal bleed, toilet bowl filled up with blood, today HPI Narrative CARMEN LAND, is a 88 F was brought by EMS for chief complaint of rectal bleed. Patient went to bathroom and felt that blood in her stool and also in the toilet bowl. Patient also having lower abdominal pain, felt like ripping sensation, intermittently for last 1 month. It comes and goes. EMS did EKG normal sinus rhythm, glucose 197 pulse ox 85% on room air and placed on 4 L of oxygen. Pulse ox increased to 97%. Otherwise vitals were in normal range. In ED, she describes her pain as more discomfort and cramping intermittently more on the left lower and upper quadrant. She has history of colonic diverticulosis and diverticulitis. She is on Plavix for history of a stroke, CHF and COPD. She does not have cardiac stent. Vitals labs and EKG reviewed [facility] Medical History Diverticulitis 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 Closed pelvic fracture Pelvic fracture Fall from slipping Essential hypertension Hypertension Normocytic anemia Closed head injury Closed fracture of right hip Fall Adult failure to thrive Weakness Dizziness Fracture of rib Dilatation of aorta Chronic systolic (congestive) heart failure Angina pectoris Subdural hematoma Insomnia Urinary incontinence History of stroke Overactive bladder Allergic rhinitis COPD (chronic obstructive pulmonary disease) Asthma Vitamin D deficiency Edema Urinary tract infection Hallucinations Intellectual disability Encephalopathy Fall Hypokalemia Acute cystitis Acute ischemic stroke Left hip pain Decreased level of consciousness Lethargy Shortness of breath HLD (hyperlipidemia) Gastroesophageal reflux disease Cerebrovascular disease Benign essential HTN Home Medications ?Medication ?Instructions ?Recorded ?Last Taken ?Type atenolol 50 mg tablet 50 mg PO DAILY blood pressure 01/31/19 09/10/21 History atorvastatin 10 mg tablet 10 mg PO DAILY cholesterol 01/31/19 09/09/21 History clopidogrel 75 mg tablet 75 mg PO DAILY heart health 01/31/19 09/10/21 History loratadine 10 mg tablet 10 mg PO DAILY allergies 01/31/19 09/10/21 History omeprazole 20 mg capsule,delayed 20 mg PO DAILY GERD 01/31/19 09/10/21 History release potassium chloride 20 mEq 20 meq PO BID supplement 09/01/19 09/10/21 History tablet,extended release(part/cryst) albuterol sulfate 90 mcg/actuation 1 - 2 puff IH Q4H PRN PRN Wheezing 06/13/20 2 Weeks Ago History aerosol inhaler ~08/27/21 cholecalciferol (vitamin D3) 25 2,000 unit PO DAILY supplement 06/13/20 09/10/21 History mcg (1,000 unit) tablet melatonin 5 mg tablet 5 mg PO QHS PRN Sleep 09/10/21 Unknown History oxybutynin chloride 15 mg 10 mg PO DAILY BLADDER 09/10/21 09/10/21 History tablet,extended release 24 hr meclizine 25 mg tablet 25 mg PO TID PRN dizziness #30 tabs 09/11/21 Unknown Rx furosemide 40 mg tablet 80 mg PO DAILY CHF 12/01/21 Unknown History nitroglycerin 0.4 mg sublingual 0.4 mg sublingual Q5-15M PRN chest 12/01/21 Unknown Rx tablet pain #25 tabs amlodipine 2.5 mg tablet 2.5 mg PO DAILY blood pressure 01/25/22 Unknown History aspirin 81 mg tablet 81 mg PO DAILY heart health 01/25/22 Unknown History fluticasone 250 mcg-salmeterol 50 1 inh inhalation BID breathing 01/25/22 Unknown History mcg/dose blistr powdr for inhalation acetaminophen 500 mg tablet 1,000 mg PO Q8 Pain 01/29/22 Unknown History tamsulosin 0.4 mg capsule 0.4 mg PO DAILY@1730 30 days #30 02/16/22 Unknown Rx caps oxycodone 5 mg tablet 5 mg PO Q4H PRN PRN Pain Score 06/12/22 Unknown Rx 6-10 3 days #18 tabs doxycycline hyclate 100 mg tablet 100 mg PO BID 03/12/23 Unknown History levofloxacin 500 mg tablet 500 mg PO DAILY #7 tabs 03/12/23 Unknown Rx ondansetron 4 mg disintegrating 4 mg PO Q8H PRN PRN Nausea #10 tabs 03/12/23 Unknown Rx tablet isosorbide mononitrate 60 mg See Rx Instructions .Route 04/13/23 Unknown Rx tablet,extended release 24 hr .COMPLEX #56 tabs losartan 100 mg tablet See Rx Instructions .Route 04/13/23 Unknown Rx .COMPLEX #28 tabs Allergy/AdvReac Type Severity Reaction Status Date / Time adhesive Allergy Rash Verified 07/12/24 13:54 amitriptyline Allergy CONFUSION Verified 07/12/24 13:54 codeine Allergy Hives Verified 07/12/24 13:54 hydrocodone bitartrate (From Allergy Hives Verified 07/12/24 13:54 Vicodin) Iodinated Contrast Media Allergy Hives Verified 07/12/24 13:54 (Iodinated Contrast Media - IV Dye) naproxen Allergy Unknown Verified 07/12/24 13:54 Penicillins Allergy Rash Verified 07/12/24 13:54 phenytoin sodium (From Allergy Hives Verified 07/12/24 13:54 Dilantin) phenytoin sodium extended Allergy Hives Verified 07/12/24 13:54 (From Dilantin) silicone Allergy Hives Verified 07/12/24 13:54 Family History Sister Heart disease Surgical History S/P ORIF (open reduction internal fixation) fracture History of umbilical hernia repair History of hysterectomy History of breast biopsy History of brain surgery S/P ORIF (open reduction internal fixation) fracture (~05/19/15) Social History household members: children and other details: Son. Smoking Status: Never smoker alcohol intake: never substance use type: does not use caffeine: Yes Type: carbonated beverages and coffee ROS ROS Narrative Constitutional: Reports fatigue and weakness. No fever. HEENT: Reports systems reviewed and no addt'l complaints, except as documented Respiratory/Chest: No acute shortness of breath or respiratory distress or wheezing. CVS: No acute chest pain or pressure or tightness Gastrointestinal: Bright red rectal bleed. No vomiting or hematemesis. Rest as described in HPI Genitourinary: Chronic urinary incontinence. Follows urologist. Denies acute burning urination or new urinary tract symptoms Musculoskeletal: Bilateral hip surgery after fracture. Limited ambulation. History of fall in the past. Denies acute joint pain or limited range of motion. No acute injury Neurologic: Denies seizure-like symptoms. skin: No ulcer. No rash Endocrinology: Reports systems reviewed and no addt'l complaints, except as documented Hematologic/Lymphatic: Reports systems reviewed and no addt'l complaints, except as documented Rest 14 ROS are negative except as mentioned in HPI Vital Signs Vital Signs Vital Signs: 08/25/24 07:41 08/25/24 10:48 08/25/24 12:00 Temperature 97.5 F L Temperature Source Oral Pulse Rate 72 64 58 L Respiratory Rate 16 18 21 H Blood Pressure 120/65 127/64 H 135/71 H Blood Pressure Mean 83 85 92 Pulse Ox 97 100 Oxygen Delivery Method Nasal Cannula Nasal Cannula Nasal Cannula Oxygen Flow Rate (L/min) 4 100 2 Weight Weight: 179 lb 3.773 oz Body Mass Index (BMI) 28.9 Physical Exam Narrative General: Alert, Oriented x3, Cooperative. BMI 28.9 kg/m? HEENT: Atraumatic, PERRLA, EOMI, Normocephalic Oral: Oral mucosa dry. No Gingival or Mucosal Lesions/ Ulcerations Neck: Supple, No JVD, Negative Carotid Bruits Chest wall/Lungs: Air entry diminished in bilateral lung bases. No crepitation/rhonchi Cardiovascular: Regular rate, Regular Rhythm, Normal S1, Normal S2, No M/G/R Abdomen: Bowel Sounds Present, Soft, Non Tender, Non-Distended : No dysuria. No renal angle tenderness. No suprapubic tenderness. Extremities: No edema, Capillary Refill Less than 3 Seconds Skin: No rashes, No breakdown Musculoskeletal: No acute tenderness to Palpation of Joints or Extremities. Bilateral hip surgery. 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 DTR 2+/4. No acute focal neurological deficit. Psych/Mental Status: Normal Affect, Appropriate. Results Lab / Micro Data 08/25/24 08:00 08/25/24 08:00 Labs: Laboratory Results - last 24 hr 08/25/24 08:00: WBC 13.6 H, RBC 3.84 L, Hgb 11.3 L, Hct 35.1 L, MCV 91.4, MCH 29.4, MCHC 32.2, RDW Std Deviation 45.2 H, RDW Coeff of Taina 13.4, Plt Count 362, MPV 9.7, Immature Gran % (Auto) 1.100 H, Neut % (Auto) 46.0 L, Lymph % (Auto) 19.5, [place] % (Auto) 3.6, Eos % (Auto) 28.5 H, Baso % (Auto) 1.3 H, Absolute Neuts (auto) 6.2, Absolute Lymphs (auto) 2.65, Nucleated RBC % 0, PT 14.0, INR 1.1, APTT 24.7, Sodium 140, Potassium 3.9, Chloride 111 H, Carbon Dioxide 22.0, Anion Gap 7, BUN 27 H, Creatinine 1.45 H, Estim Creat Clear Calc 29.94, Est GFR (MDRD) Af Amer 44 L, Est GFR (MDRD) Non-Af 36 L, BUN/Creatinine Ratio 18.6, G lucose 178 H, Calcium 9.5, Total Bilirubin 0.30, Direct Bilirubin 0.13, AST 13 L , ALT 16, Alkaline Phosphatase 81, Total Protein 7.8, Albumin 3.0 L, Globulin 4.8 H, Lipase 76 H, Blood Type O POSITIVE, Antibody Screen NEGATIVE 08/25/24 09:10: Lactic Acid 2.0 Imaging Radiology Impression Abdomen/Pelvis CT 08/25/24 09:42 IMPRESSION: Sigmoid diverticulosis without evidence of diverticulitis. Findings suggestive of small gallstones or sludge along the dependent portion of the gallbladder lumen. Electronically Signed: Artie Chester MD at 10:24 EDT , Assessment & Plan Assessment/Plan (1) Abdominal pain: (2) Lower GI bleed: PLAN: Plan This is a 88-year-old female being admitted for lower GI bleed with lower abdominal cramps. 1. Most likely lower GI bleed with possible differential ischemic colitis, infectious/inflammatory colitis less likely: Patient is being admitted in PCU. H&H 11.3/35% with mild decrease from 12.2/39% in November 2023. Hold Plavix. H&H every 6 hourly. GI consulted. PPI every 12 hourly until exact etiology determined. Possible colonoscopy tomorrow AM 2. Abdominal cramps/pain intermittent for 1 month possible ischemic colitis, infectious/inflammatory colitis: WBC count 13.6 thousand. Immature granulocyte 1.1%. With history of CHF and ischemic stroke, possible ischemic colitis. Empirically started on IV Cipro and Flagyl. Continue IV fluid for resuscitation. Lactic acid 2.0. CT abdomen/pelvis done in ED shows sigmoid diverticulosis without evidence of diverticulitis. Small gallstone/sludge on dependent portion of GB. No right upper quadrant pain or tenderness. 3. Hypertension and dyslipidemia: Hold antihypertensive medication. SBP in 120s. 4. Chronic HFpEF: Last echo 03/11/2022 reported EF 65%, LV systolic function normal. 1-2+ MR, trivial TR. Mild AI, mild PI. Mildly dilated aortic root. LA moderately enlarged. Overall suggestive of chronic HFpEF. Patient did not had any chest pain or acute shortness of breath. 5. Chronic history of stroke: Patient on Plavix and statin. Hold Plavix. Patient had last carotid duplex in January 15 shows less than 50% stenosis of left and right ICA 6. Glucose elevated 178: A1c ordered for tomorrow AM. 7. Chronic degenerative arthritis with history of bilateral hip fracture status post ORIF: PT and OT ordered 8. Possible KALLIE on CKD stage IIIb: Patient BUNs/creatinine 27/1.45 is elevated from baseline 18/1.05 in November 2023. Continue IV fluid. Monitor kidney function. DVT prophylaxis: High risk but pharmacological prophylaxis is contraindicated because of acute GI bleed. Bilateral SCDs Living will/advanced directive/end of life care: Patient does have living will or advanced directive. Her son is power of rotary slicing machine operator for health. After discussion of benefits/risks procedures involved with full code, DNR CC arrest and DNR CC, the patient opted for DNR CC arrest with no intubation. She is accompanied by her friend who is home health. Patient does want artificial life support including intubation, tube feed, ventilator and/chest compression, central venous catheter, vasopressor and DC shock if needed Total time spent in [id number] encounter in discussion of advanced directive 17 minutes. Clinical Impression(s) from Imaging Studies Abdomen/Pelvis CT 08/25/24 09:42 IMPRESSION: Sigmoid diverticulosis without evidence of diverticulitis. Findings suggestive of small gallstones or sludge along the dependent portion of the gallbladder lumen. Electronically Signed: Artie Chester MD at 10:24 EDT , Laboratory Results 08/25/24 08:00: WBC 13.6 H, RBC 3.84 L, Hgb 11.3 L, Hct 35.1 L, MCV 91.4, MCH 29.4, MCHC 32.2, RDW Std Deviation 45.2 H, RDW Coeff of Taina 13.4, Plt Count 362, MPV 9.7, Immature Gran % (Auto) 1.100 H, Neut % (Auto) 46.0 L, Lymph % (Auto) 19.5, [place] % (Auto) 3.6, Eos % (Auto) 28.5 H, Baso % (Auto) 1.3 H, Absolute Neuts (auto) 6.2, Absolute Lymphs (auto) 2.65, Nucleated RBC % 0, PT 14.0, INR 1.1, APTT 24.7, Sodium 140, Potassium 3.9, Chloride 111 H, Carbon Dioxide 22.0, Anion Gap 7, BUN 27 H, Creatinine 1.45 H, Estim Creat Clear Calc 29.94, Est GFR (MDRD) Af Amer 44 L, Est GFR (MDRD) Non-Af 36 L, BUN/Creatinine Ratio 18.6, G lucose 178 H, Calcium 9.5, Total Bilirubin 0.30, Direct Bilirubin 0.13, AST 13 L , ALT 16, Alkaline Phosphatase 81, Total Protein 7.8, Albumin 3.0 L, Globulin 4.8 H, Lipase 76 H, Blood Type O POSITIVE, Antibody Screen NEGATIVE 08/25/24 09:10: Lactic Acid 2.0 Charges/Coding Visit Charges Inpatient E&M: 97897 Disch Hosp >30min
[2024-08-25 13:14] LABS: Reflex Lactate? Y
[2024-08-25 13:30] LABS: Magnesium 1.8 mg/dL (1.6-2.6)
[2024-08-25 15:31] LABS: Lactic Acid 0.8 mmol/L (0.4-1.9)
--- NOTE | 2024-08-25 15:33 | CASEMGMT ---
VICKY received a call from patient's [facility] Fuel Handler Nadira. She asked about patient's admitting diagnosis. VICKY let her know it was a GI Bleed. Melisa OLMSTEAD
[2024-08-25 20:00] LABS: Hematocrit 33.1 % (37-47); Hemoglobin 10.4 g/dL (12.0-15.0)
[2024-08-25] MEDS: KCL 40mEq in 0.9% NS 40 MEQ/1,000 ML IV.SOLN 100 MEQ IV (20:38)
[2024-08-25] MEDS: 0.9% Saline Lock 10 ML Syringe IV (20:39)
[2024-08-25] MEDS: Pantoprazole Sodium 40 MG in 0.9% Normal Saline (100mL MB+) 100 ML 330 MG IV (20:39)
[2024-08-25] MEDS: Acetaminophen 325 MG Tablet 650 MG PO (20:54)
[2024-08-25] MEDS: Ceftriaxone 1 GM/50 ML BAG IV (21:23)
[2024-08-25] MEDS: metroNIDAZOLE 500 MG/100 ML BAG 100 MG IV (22:01)
[2024-08-26 01:07] LABS: Hematocrit 28.1 % (37-47); Hemoglobin 9.1 g/dL (12.0-15.0)
[2024-08-26 03:15] VITALS: BP 129/90; PULSE 58; RESP 18; TEMP 36.9; O2SAT 100
[2024-08-26 04:44] LABS: Absolute Lymphocyte Count 2.87 X10^3/uL (0.83-4.51); Basophil# 0.11 X10^3/uL; Eosinophil# 3.51 X10^3/uL; Eosinophils% 31.4 % (0-5); Hematocrit 28.7 % (37-47); Hemoglobin 9.3 g/dL (12.0-15.0); Lymphocyte # 2.87 X10^3/ul (0.83-4.51); Lymphocyte % 25.7 % (19-41); Mean Corp Hgb Conc 32.4 g/dL (32-36); Mean Corpuscular Volume 92.6 fL (81-99); Mean Platelet Vol. 9.6 fl (6.2-12.0); Monocyte% 5.4 % (0-10); NRBC Flagged by Analyzer 0 % (0-5); Neutrophil # 4.02 X10^3/uL (2.7-7.7); POSITIVE DIFFERENTIAL YES; Platelet Count 290 K/mm3 (150-450); RBC Distribution Width CV 13.4 % (11.6-14.6); RBC Distribution Width SD 45.4 fl (35.1-43.9); White Blood Count 11.2 K/mm3 (4.4-11.0)
[2024-08-26 04:59] LABS: Differential Indicated SCAN CRITERIA MET
[2024-08-26 05:09] LABS: Differential Comment SCANNED
[2024-08-26 05:11] LABS: Anion Gap 4 (5-15); BUN 20 mg/dL (7-18); BUN/Creat Ratio 18.7 RATIO (10-20); Chloride 114 mmol/L (98-107); Creatinine, Serum 1.07 mg/dL (0.55-1.02); EST Glomerular Filtration Rate 52 mL/min (>60); Est Glom Filt Rate - Afr Amer 62 mL/min (>60); Estimated Creatinine Clearance 40.26 ml/min; Glucose 131 mg/dL (74-106); Potassium 3.6 mmol/L (3.5-5.1); Sodium Level 141 mmol/L (136-145); Thyroid Stim Hormone (TSH) 0.586 uIU/mL (0.358-3.740)
[2024-08-26] MEDS: metroNIDAZOLE 500 MG/100 ML BAG 100 MG IV ×3 (05:40→22:54)
--- NOTE | 2024-08-26 07:51 | PN.HOSP_ITS ---
Reason for Visit Reason for Visit: Diagnoses Gastrointestinal hemorrhage, unspecified (08/25/24) Unspecified abdominal pain (08/25/24) Objective Data Objective Data Vital Signs: Vital Signs Temp Pulse Resp BP Pulse Ox O2 Del Method O2 Flow Rate 98.5 F 58 L 18 129/90 H 100 Nasal Cannula 2 08/26/24 03:15 08/26/24 03:15 08/26/24 03:15 08/26/24 03:15 08/26/24 03:15 08/26/24 04:57 08/26/24 04:57 Oxygen Flow Rate (L/min) 2 Oxygen Delivery Method Nasal Cannula Weight: 176 lb 5.917 oz Body Mass Index (BMI) 28.4 Intake & Output: Intake and Output for Last 24 Hours 08/24/24 08/25/24 08/26/24 23:59 23:59 23:59 Intake Total 1398.33 / 1398.33 100 / 100 Balance 1398.33 / 1398.33 100 / 100 Lab / Micro Data 08/26/24 04:20 08/26/24 04:20 Labs: Laboratory Results - last 24 hr 08/25/24 08:00: WBC 13.6 H, RBC 3.84 L, Hgb 11.3 L, Hct 35.1 L, MCV 91.4, MCH 29.4, MCHC 32.2, RDW Std Deviation 45.2 H, RDW Coeff of Taina 13.4, Plt Count 362, MPV 9.7, Immature Gran % (Auto) 1.100 H, Neut % (Auto) 46.0 L, Lymph % (Auto) 19.5, [place] % (Auto) 3.6, Eos % (Auto) 28.5 H, Baso % (Auto) 1.3 H, Absolute Neuts (auto) 6.2, Absolute Lymphs (auto) 2.65, Nucleated RBC % 0, PT 14.0, INR 1.1, APTT 24.7, Sodium 140, Potassium 3.9, Chloride 111 H, Carbon Dioxide 22.0, Anion Gap 7, BUN 27 H, Creatinine 1.45 H, Estim Creat Clear Calc 29.94, Est GFR (MDRD) Af Amer 44 L, Est GFR (MDRD) Non-Af 36 L, BUN/Creatinine Ratio 18.6, G lucose 178 H, Calcium 9.5, Magnesium 1.8, Total Bilirubin 0.30, Direct Bilirubin 0.13, AST 13 L, ALT 16, Alkaline Phosphatase 81, Total Protein 7.8, Albumin 3.0 L, Globulin 4.8 H, Lipase 76 H, Blood Type O POSITIVE, Antibody Screen NEGATIVE 08/25/24 09:10: Lactic Acid 2.0 08/25/24 14:40: Lactic Acid 0.8 08/25/24 19:45: Hgb 10.4 L, Hct 33.1 L 08/26/24 00:55: Hgb 9.1 L, Hct 28.1 L 08/26/24 04:20: WBC 11.2 H, RBC 3.10 L, Hgb 9.3 L, Hct 28.7 L, MCV 92.6, MCH 30.0, MCHC 32.4, RDW Std Deviation 45.4 H, RDW Coeff of Taina 13.4, Plt Count 290, MPV 9.6, Immature Gran % (Auto) 0.500, Neut % (Auto) 36.0 L, Lymph % (Auto) 25.7, [place] % (Auto) 5.4, Eos % (Auto) 31.4 H, Baso % (Auto) 1.0, Absolute Neuts (auto) 4.0, Absolute Lymphs (auto) 2.87, Nucleated RBC % 0, Differential Comment SCANNED, Sodium 141, Potassium 3.6, Chloride 114 H, Carbon Dioxide 23.0, Anion Gap 4 L, BUN 20 H, Creatinine 1.07 H, Estim Creat Clear Calc 40.26, Est GFR (MDRD) Af Amer 62, Est GFR (MDRD) Non-Af 52 L, BUN/Creatinine Ratio 18.7, G lucose 131 H, Calcium 9.0, TSH 0.586 Radiography Diagnostic Testing: Radiology Impression Abdomen/Pelvis CT 08/25/24 09:42 IMPRESSION: Sigmoid diverticulosis without evidence of diverticulitis. Findings suggestive of small gallstones or sludge along the dependent portion of the gallbladder lumen. Electronically Signed: Artie Chester MD at 10:24 EDT , Physical Exam Narrative Seen and examined. Patient did not had further GI bleed after admission. Hemoglobin dropped from 11.3-9.3. Mild left-sided abdominal soreness. Physical exam General: Alert, Oriented x3, Cooperative. BMI 28.9 kg/m? HEENT: Atraumatic, PERRLA, EOMI, Normocephalic Oral: Oral mucosa dry. No Gingival or Mucosal Lesions/ Ulcerations Neck: Supple, No JVD, Negative Carotid Bruits Chest wall/Lungs: Air entry diminished in bilateral lung bases. No crepitation/rhonchi Cardiovascular: Regular rate, Regular Rhythm, Normal S1, Normal S2, No M/G/R Abdomen: Bowel Sounds Present, Soft, mild tenderness on left upper quadrant on deep palpation. Non-Distended : No dysuria. No renal angle tenderness. No suprapubic tenderness. Extremities: No edema, Capillary Refill Less than 3 Seconds Skin: No rashes, No breakdown Musculoskeletal: No acute tenderness to Palpation of Joints or Extremities. Bilateral hip surgery. 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 DTR 2+/4. No acute focal neurological deficit. Psych/Mental Status: Normal Affect, Appropriate. Assessment & Plan Assessment/Plan (1) Abdominal pain: (2) Lower GI bleed: PLAN: Plan This is a 88-year-old female being admitted for lower GI bleed with lower abdominal cramps. 1. Most likely lower GI bleed with possible differential ischemic colitis, infectious/inflammatory colitis less likely: Patient is being admitted in PCU. H&H 11.3/35% with mild decrease from 12.2/39% in November 2023. Hold Plavix. H&H every 6 hourly. GI consulted. PPI every 12 hourly until exact etiology determined. Possible colonoscopy tomorrow AM 08/26: Drop in hemoglobin to gram from 11.3-9.3 last 24 hours. Therefore acute anemia due to blood loss. Discussed with the software reliability engineer. No acute emergency and therefore colonoscopy on Wednesday. Colon prep to start from tomorrow afternoon. 2. Abdominal cramps/pain intermittent for 1 month possible ischemic colitis, infectious/inflammatory colitis: WBC count 13.6 thousand. Immature granulocyte 1.1%. With history of CHF and ischemic stroke, possible ischemic colitis. Empirically started on IV Cipro and Flagyl. Continue IV fluid for resuscitation. Lactic acid 2.0. CT abdomen/pelvis done in ED shows sigmoid diverticulosis without evidence of diverticulitis. Small gallstone/sludge on dependent portion of GB. No right upper quadrant pain or tenderness. 08/26: Continue IV antibiotic 3. Hypertension and dyslipidemia: Hold antihypertensive medication. SBP in 120s. 08/26: Blood pressure 146/73. 4. Chronic HFpEF: Last echo 03/11/2022 reported EF 65%, LV systolic function normal. 1-2+ MR, trivial TR. Mild AI, mild PI. Mildly dilated aortic root. LA moderately enlarged. Overall suggestive of chronic HFpEF. Patient did not had any chest pain or acute shortness of breath. 08/26: Hold diuretic, isosorbide mononitrate. Continue potassium supplement K3.6 5. Chronic history of stroke: Patient on Plavix and statin. Hold Plavix. Patient had last carotid duplex in January 15 shows less than 50% stenosis of left and right ICA 6. Glucose elevated 178: A1c ordered for tomorrow AM. 7. Chronic degenerative arthritis with history of bilateral hip fracture status post ORIF: PT and OT ordered 8. Possible KALLIE on CKD stage IIIb: Patient BUNs/creatinine 27/1.45 is elevated from baseline 18/1.05 in November 2023. Continue IV fluid. Monitor kidney function. DVT prophylaxis: High risk but pharmacological prophylaxis is contraindicated because of acute GI bleed. Bilateral SCDs Living will/advanced directive/end of life care: Patient does have living will or advanced directive. Her son is power of erisa attorney for health. After discussion of benefits/risks procedures involved with full code, DNR CC arrest and DNR CC, the patient opted for DNR CC arrest with no intubation. She is accompanied by her friend who is home health. Patient does want artificial life support including intubation, tube feed, ventilator and/chest compression, central venous catheter, vasopressor and DC shock if needed Total time spent in [id number] encounter in discussion of advanced directive 17 minutes. Clinical Impression(s) from Imaging Studies Abdomen/Pelvis CT 08/25/24 09:42 IMPRESSION: Sigmoid diverticulosis without evidence of diverticulitis. Findings suggestive of small gallstones or sludge along the dependent portion of the gallbladder lumen. Electronically Signed: Artie Chester MD at 10:24 EDT , Laboratory Results 08/25/24 14:40: Lactic Acid 0.8 08/25/24 19:45: Hgb 10.4 L, Hct 33.1 L 08/26/24 00:55: Hgb 9.1 L, Hct 28.1 L 08/26/24 04:20: WBC 11.2 H, RBC 3.10 L, Hgb 9.3 L, Hct 28.7 L, MCV 92.6, MCH 30.0, MCHC 32.4, RDW Std Deviation 45.4 H, RDW Coeff of Taina 13.4, Plt Count 290, MPV 9.6, Immature Gran % (Auto) 0.500, Neut % (Auto) 36.0 L, Lymph % (Auto) 25.7, [place] % (Auto) 5.4, Eos % (Auto) 31.4 H, Baso % (Auto) 1.0, Absolute Neuts (auto) 4.0, Absolute Lymphs (auto) 2.87, Nucleated RBC % 0, Differential Comment SCANNED, Sodium 141, Potassium 3.6, Chloride 114 H, Carbon Dioxide 23.0, Anion Gap 4 L, BUN 20 H, Creatinine 1.07 H, Estim Creat Clear Calc 40.26, Est GFR (MDRD) Af Amer 62, Est GFR (MDRD) Non-Af 52 L, BUN/Creatinine Ratio 18.7, G lucose 131 H, Calcium 9.0, TSH 0.586 Charges/Coding Visit Charges Inpatient E&M: 48444 Subs Hosp L2
[2024-08-26 09:14] VITALS: BP 146/73; PULSE 65; RESP 18; TEMP 36.4; O2SAT 100
[2024-08-26] MEDS: Ceftriaxone 1 GM/50 ML BAG IV (09:19)
[2024-08-26] MEDS: KCL 40mEq in 0.9% NS 40 MEQ/1,000 ML IV.SOLN 100 MEQ IV (09:25)
[2024-08-26] MEDS: Pantoprazole Sodium 40 MG in 0.9% Normal Saline (100mL MB+) 100 ML 330 MG IV ×2 (10:53→22:54)
--- NOTE | 2024-08-26 14:00 | CASEMGMT ---
RN PIERO OFFSHORING MANAGER CM?to room to meet with patient for initial transition planning/care coordination assessment. RN CM?introduced self and role at [facility]. Pt voices understanding and consents to assessment?at this time. Pt resting in bed in no distress at this time. Pt is A/O at this time and answers all questions appropriately. Care providers, pharmacy, and demographics verified/updated at this time. PCP: Dr Will. Specialists: denies Preferred Pharmacy: [facility] Insurance: [facility] Prescription Benefit: yes LNOK: SonCuong. Daughter, Nikia Living Arrangements: SonCuong, lives w/her in one-story home w/ramp entrance. Pt reports being indep w/ADL's prior to admission. Son manages her medications. Friend, Chasity, lives in a coupe and then states a room on her property that is beside her back door. She states Chasity does home mgnt tasks/cooking, cleaning, laundry. Transportation:?Pt states she does not drive. DME: States has the following DME: tub bench, BSC, hospital bed, grab bars, walker, medical alert. Pt states she wears O2 @ HS only, but does not remember what agency supplies this. HHC/SNF: Pt has been to [facility] and [facility] in the past. No hx of HHC. Therapy evals reviewed today. Pt only able to ambulate 6 ft w/use of FWW. Discussed discharge planning. Pt states she is going to need help @ discharge and states her son is bad off too , stating he has something wrong w/his pancreas and states he would not be able to help her. She also voices would not want friend, Mame, providing personal care. She states really liked it @ [facility] TCU and would like to go there @ discharge and then return home after that. She declines wanting a list of other SNF options. PLAN: Pt wishes to dc to TCU. Bianca PERRY, aware. VICKY to follow-up on Wednesday. Rikki LAMB RN, CM
--- NOTE | 2024-08-26 14:11 | CASEMGMT ---
Social Work SW created in [facility] a list of correction facilities in network w/pt's insurance, in pt's preferred geographic area, and complete w/quality and resource use data. Pt had told the CM she wanted to go to TCU, declined the SNF list. SW made referral to TCU via email. SW to follow up Wednesday,can follow up w/list to pt if needed. CARLOS EDUARDO Mauricio
[2024-08-26 15:45] LABS: Hematocrit 28.4 % (37-47); Hemoglobin 9.1 g/dL (12.0-15.0)
[2024-08-26] MEDS: Potassium Chloride Oral Tablet 20 MEQ PO (16:09)
[2024-08-26] MEDS: Tamsulosin HCl 0.4 MG Capsule PO (16:11)
[2024-08-26 18:00] VITALS: BP 149/66; PULSE 75; RESP 16; TEMP 36.7; O2SAT 100
[2024-08-26] MEDS: Budesonide Respules 0.5 MG/2 ML AMPUL.NEB. INHALATION (19:33)
[2024-08-26 19:34] VITALS: PULSE 73; RESP 18; O2SAT 94
[2024-08-26] MEDS: Albuterol 2.5 MG/3 ML VIAL.NEB. INHALATION (19:34)
[2024-08-26] MEDS: Acetaminophen 325 MG Tablet 650 MG PO (20:57)
[2024-08-26 21:15] VITALS: BP 132/58; PULSE 80; RESP 16; TEMP 36.5; O2SAT 99
[2024-08-27] VITALS (10 sets, daily range): BP systolic 131–167; BP diastolic 65–85; PULSE 64–83; RESP 15–20; TEMP 36.6–36.9; O2SAT 93–100
[2024-08-27] MEDS: metroNIDAZOLE 500 MG/100 ML BAG 100 MG IV ×3 (05:35→20:44)
[2024-08-27] MEDS: Budesonide Respules 0.5 MG/2 ML AMPUL.NEB. INHALATION (06:46)
[2024-08-27] MEDS: Albuterol 2.5 MG/3 ML VIAL.NEB. INHALATION (06:46)
[2024-08-27 06:55] LABS: Absolute Lymphocyte Count 1.88 X10^3/uL (0.83-4.51); Absolute Neutrophil Count 2.9 X10^3/uL (2.0-7.7); Basophil# 0.09 X10^3/uL; Basophil% 1.1 % (0-1); Eosinophil# 2.69 X10^3/uL; Hematocrit 25.4 % (37-47); Hemoglobin 8.2 g/dL (12.0-15.0); Lymphocyte # 1.88 X10^3/ul (0.83-4.51); Mean Corp Hgb Conc 32.3 g/dL (32-36); Mean Corpuscular Hgb 29.8 pg (27.0-32.0); Mean Corpuscular Volume 92.4 fL (81-99); Mean Platelet Vol. 9.9 fl (6.2-12.0); Monocyte# 0.52 X10^3/uL; Monocyte% 6.4 % (0-10); NRBC Flagged by Analyzer 0 % (0-5); Neutrophil # 2.94 X10^3/uL (2.7-7.7); POSITIVE DIFFERENTIAL YES; Platelet Count 260 K/mm3 (150-450); RBC Distribution Width CV 13.4 % (11.6-14.6); RBC Distribution Width SD 45.1 fl (35.1-43.9); Red Blood Count 2.75 M/mm3 (4.2-5.4); White Blood Count 8.2 K/mm3 (4.4-11.0)
[2024-08-27 07:12] LABS: Differential Indicated SCAN CRITERIA MET
[2024-08-27 07:18] LABS: Anion Gap 5 (5-15); BUN 16 mg/dL (7-18); BUN/Creat Ratio 19.8 RATIO (10-20); Calcium,Total 8.6 mg/dL (8.5-10.1); Chloride 113 mmol/L (98-107); Creatinine, Serum 0.81 mg/dL (0.55-1.02); EST Glomerular Filtration Rate 71 mL/min (>60); Est Glom Filt Rate - Afr Amer 86 mL/min (>60); Estimated Creatinine Clearance 53.19 ml/min; Glucose 127 mg/dL (74-106); Potassium 3.7 mmol/L (3.5-5.1); Sodium Level 140 mmol/L (136-145)
[2024-08-27] MEDS: Atorvastatin Calcium 10 MG Tablet PO (09:02)
[2024-08-27] MEDS: Atenolol 50 MG Tablet PO (09:03)
[2024-08-27] MEDS: Ceftriaxone 1 GM/50 ML BAG IV (09:03)
[2024-08-27] MEDS: Potassium Chloride Oral Tablet 20 MEQ PO ×2 (09:03→16:04)
[2024-08-27 09:15] LABS: Differential Comment SCANNED
[2024-08-27] MEDS: Pantoprazole Sodium 40 MG in 0.9% Normal Saline (100mL MB+) 100 ML 330 MG IV ×2 (09:45→20:43)
[2024-08-27] MEDS: Acetaminophen 325 MG Tablet 650 MG PO ×2 (13:34→21:08)
--- NOTE | 2024-08-27 14:12 | PCM.PN.HOSP ---
Reason for Visit Reason for Visit: Diagnoses Gastrointestinal hemorrhage, unspecified (08/25/24) Unspecified abdominal pain (08/25/24) Objective Data Objective Data Vital Signs: Vital Signs Temp Pulse Resp BP Pulse Ox O2 Del Method O2 Flow Rate 98.1 F 83 18 140/85 H 95 Nasal Cannula 2 08/27/24 08:58 08/27/24 08:58 08/27/24 08:58 08/27/24 08:58 08/27/24 08:58 08/27/24 08:58 08/27/24 12:15 Oxygen Flow Rate (L/min) 2 Oxygen Delivery Method Nasal Cannula Weight: 176 lb 5.917 oz Body Mass Index (BMI) 28.4 Intake & Output: Intake and Output for Last 24 Hours 08/25/24 08/26/24 08/27/24 23:59 23:59 23:59 Intake Total 1398.33 / 1398.33 2021.67 / 2261.67 1500 / 1500 Output Total 900 / 1500 600 / 600 Balance 1398.33 / 1398.33 1121.67 / 761.67 900 / 900 Lab / Micro Data 08/27/24 05:25 08/27/24 05:25 Labs: Laboratory Results - last 24 hr 08/26/24 15:38: Hgb 9.1 L, Hct 28.4 L 08/27/24 05:25: WBC 8.2, RBC 2.75 L, Hgb 8.2 L, Hct 25.4 L, MCV 92.4, MCH 29.8, MCHC 32.3, RDW Std Deviation 45.1 H, RDW Coeff of [place]ain[place] 13.4, Plt Count 260, MPV 9.9, Immature Gran % (Auto) 0.500, Neut % (Auto) 36.0 L, Lymph % (Auto) 23.0, [place] % (Auto) 6.4, Eos % (Auto) 33.0 H, Baso % (Auto) 1.1 H, Absolute Neuts (auto) 2.9, Absolute Lymphs (auto) 1.88, Nucleated RBC % 0, Differential Comment SCANNED Sodium 140, Potassium 3.7, Chloride 113 H, Carbon Dioxide 22.0, Anion Gap 5, BUN 16, Creatinine 0.81, Estim Creat Clear Calc 53.19, Est GFR (MDRD) Af Amer 86, Est GFR (MDRD) Non-Af 71, BUN/Creatinine Ratio 19.8, Glucose 127 H, Calcium 8.6 Micro: Microbiology 08/26/24 14:17 Stool Stool Lactoferrin - Final 08/26/24 14:17 Stool Enteric Bacteriology - Final Physical Exam Narrative Seen and examined. Patient did not had further GI bleed after admission. Hemoglobin dropped from 11.3-8.2. Patient had 4 BM mixed with blood. Physical exam General: Alert, Oriented x3, Cooperative. BMI 28.9 kg/m? HEENT: Atraumatic, PERRLA, EOMI, Normocephalic Oral: Oral mucosa dry. No Gingival or Mucosal Lesions/ Ulcerations Neck: Supple, No JVD, Negative Carotid Bruits Chest wall/Lungs: Air entry diminished in bilateral lung bases. No crepitation/rhonchi Cardiovascular: Regular rate, Regular Rhythm, Normal S1, Normal S2, No M/G/R Abdomen: Bowel Sounds Present, Soft, no significant tenderness. Non-Distended : No dysuria. No renal angle tenderness. No suprapubic tenderness. Extremities: No edema, Capillary Refill Less than 3 Seconds Skin: No rashes, No breakdown Musculoskeletal: No acute tenderness to Palpation of Joints or Extremities. Bilateral hip surgery. 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 DTR 2+/4. No acute focal neurological deficit. Psych/Mental Status: Flat affect. Assessment & Plan Assessment/Plan (1) Abdominal pain: (2) Lower GI bleed: PLAN: Plan This is a 88-year-old female being admitted for lower GI bleed with lower abdominal cramps. 1. Most likely lower GI bleed with possible differential ischemic colitis, infectious/inflammatory colitis less likely: Patient is being admitted in PCU. H&H 11.3/35% with mild decrease from 12.2/39% in November 2023. Hold Plavix. H&H every 6 hourly. GI consulted. PPI every 12 hourly until exact etiology determined. Possible colonoscopy tomorrow AM 08/26: Drop in hemoglobin to gram from 11.3-9.3 last 24 hours. Therefore acute anemia due to blood loss. Discussed with the director dance. No acute emergency and therefore colonoscopy on Wednesday. Colon prep to start from tomorrow afternoon. 08/27: Patient had 4 blood mixed with stool BM yesterday. Hemoglobin dropped to 8.2. 1 unit PRBC ordered. MiraLAX based colon prep ordered. Plan for colonoscopy tomorrow a.m. 2. Abdominal cramps/pain intermittent for 1 month possible ischemic colitis, infectious/inflammatory colitis: WBC count 13.6 thousand. Immature granulocyte 1.1%. With history of CHF and ischemic stroke, possible ischemic colitis. Empirically started on IV Cipro and Flagyl. Continue IV fluid for resuscitation. Lactic acid 2.0. CT abdomen/pelvis done in ED shows sigmoid diverticulosis without evidence of diverticulitis. Small gallstone/sludge on dependent portion of GB. No right upper quadrant pain or tenderness. 08/26: Continue IV antibiotic 08/27: Abdominal exam better. No acute tenderness. 3. Hypertension and dyslipidemia: Hold antihypertensive medication. SBP in 120s. 08/26: Blood pressure 146/73. 4. Chronic HFpEF: Last echo 03/11/2022 reported EF 65%, LV systolic function normal. 1-2+ MR, trivial TR. Mild AI, mild PI. Mildly dilated aortic root. LA moderately enlarged. Overall suggestive of chronic HFpEF. Patient did not had any chest pain or acute shortness of breath. 08/26: Hold diuretic, isosorbide mononitrate. Continue potassium supplement K3.6 5. Chronic history of stroke: Patient on Plavix and statin. Hold Plavix. Patient had last carotid duplex in January 15 shows less than 50% stenosis of left and right ICA 6. Glucose elevated 178: A1c ordered for tomorrow AM. 7. Chronic degenerative arthritis with history of bilateral hip fracture status post ORIF: PT and OT ordered 8. Possible KALLIE on CKD stage IIIb: Patient BUNs/creatinine 27/1.45 is elevated from baseline 18/1.05 in November 2023. Continue IV fluid. Monitor kidney function. Microbiology Past 72 Hours DVT prophylaxis: High risk but pharmacological prophylaxis is contraindicated because of acute GI bleed. Bilateral SCDs Living will/advanced directive/end of life care: Patient does have living will or advanced directive. Her son is power of patent prosecution attorney for health. After discussion of benefits/risks procedures involved with full code, DNR CC arrest and DNR CC, the patient opted for DNR CC arrest with no intubation. She is accompanied by her friend who is home health. Patient does want artificial life support including intubation, tube feed, ventilator and/chest compression, central venous catheter, vasopressor and DC shock if needed Total time spent in [id number] encounter in discussion of advanced directive 17 minutes. Clinical Impression(s) from Imaging Studies Abdomen/Pelvis CT 08/25/24 09:42 IMPRESSION: Sigmoid diverticulosis without evidence of diverticulitis. Findings suggestive of small gallstones or sludge along the dependent portion of the gallbladder lumen. Electronically Signed: Artie Chester MD at 10:24 EDT , Laboratory Results 08/25/24 14:40: Lactic Acid 0.8 08/25/24 19:45: Hgb 10.4 L, Hct 33.1 L 08/26/24 00:55: Hgb 9.1 L, Hct 28.1 L 08/26/24 04:20: WBC 11.2 H, RBC 3.10 L, Hgb 9.3 L, Hct 28.7 L, MCV 92.6, MCH 30.0, MCHC 32.4, RDW Std Deviation 45.4 H, RDW Coeff of [place]ain[place] 13.4, Plt Count 290, MPV 9.6, Immature Gran % (Auto) 0.500, Neut % (Auto) 36.0 L, Lymph % (Auto) 25.7, [place] % (Auto) 5.4, Eos % (Auto) 31.4 H, Baso % (Auto) 1.0, Absolute Neuts (auto) 4.0, Absolute Lymphs (auto) 2.87, Nucleated RBC % 0, Differential Comment SCANNED, Sodium 141, Potassium 3.6, Chloride 114 H, Carbon Dioxide 23.0, Anion Gap 4 L, BUN 20 H, Creatinine 1.07 H, Estim Creat Clear Calc 40.26, Est GFR (MDRD) Af Amer 62, Est GFR (MDRD) Non-Af 52 L, BUN/Creatinine Ratio 18.7, Glucose 131 H, Calcium 9.0, TSH 0.586 Charges/Coding Visit Charges Inpatient E&M: 24715 Subs Hosp L2
[2024-08-27] MEDS: Bisacodyl 5 MG Tablet 10 MG PO (16:02)
[2024-08-27] MEDS: Tamsulosin HCl 0.4 MG Capsule PO (16:04)
[2024-08-27] MEDS: Polyethylene Glycol 3350 BOWEL PREP PO (16:15)
--- NOTE | 2024-08-27 19:36 | CON.PCM.GI_ITS ---
HPI Consult Data Date of Consult: 08/27/24 HPI Narrative Reason for Consultation: Lower GI bleed HPI Narrative: CARMEN LAND, is a 88 F was brought by EMS for chief complaint of rectal bleed. Patient went to bathroom and felt that blood in her stool and also in the toilet bowl. Currently , she describes her pain as more discomfort and cramping intermittently more on the left lower and upper quadrant. She has history of colonic diverticulosis and diverticulitis. She is on Plavix for history of a stroke, CHF and COPD. She does not have cardiac stent. CT scan of the abdomen pelvis shows: Sigmoid diverticulosis without evidence of diverticulitis. Findings suggestive of small gallstones or sludge along the dependent portion of the gallbladder lumen Her hemoglobin has decreased down to 8.9 from 10.4. ON LICENSE OF [facility] Medical History Diverticulitis 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 Closed pelvic fracture Pelvic fracture Fall from slipping Essential hypertension Hypertension Normocytic anemia Closed head injury Closed fracture of right hip Fall Adult failure to thrive Weakness Dizziness Fracture of rib Dilatation of aorta Chronic systolic (congestive) heart failure Angina pectoris Subdural hematoma Insomnia Urinary incontinence History of stroke Overactive bladder Allergic rhinitis COPD (chronic obstructive pulmonary disease) Asthma Vitamin D deficiency Edema Urinary tract infection Hallucinations Intellectual disability Encephalopathy Fall Hypokalemia Acute cystitis Acute ischemic stroke Left hip pain Decreased level of consciousness Lethargy Shortness of breath HLD (hyperlipidemia) Gastroesophageal reflux disease Cerebrovascular disease Benign essential HTN Home Medications ?Medication ?Instructions ?Recorded ?Last Taken ?Type atenolol 50 mg tablet 50 mg PO DAILY blood pressure 01/31/19 08/24/24 History atorvastatin 10 mg tablet 10 mg PO DAILY cholesterol 01/31/19 08/24/24 History clopidogrel 75 mg tablet 75 mg PO DAILY heart health 01/31/19 08/24/24 History loratadine 10 mg tablet 10 mg PO DAILY allergies 01/31/19 09/10/21 History omeprazole 20 mg capsule,delayed 20 mg PO DAILY GERD 01/31/19 09/10/21 History release potassium chloride 20 mEq 20 meq PO BID supplement 09/01/19 09/10/21 History tablet,extended release(part/cryst) albuterol sulfate 90 mcg/actuation 1 - 2 puff IH Q4H PRN PRN Wheezing 06/13/20 2 Weeks Ago History aerosol inhaler ~08/27/21 cholecalciferol (vitamin D3) 25 2,000 unit PO DAILY supplement 06/13/20 09/10/21 History mcg (1,000 unit) tablet melatonin 5 mg tablet 5 mg PO QHS PRN Sleep 09/10/21 Unknown History oxybutynin chloride 15 mg 10 mg PO DAILY BLADDER 09/10/21 09/10/21 History tablet,extended release 24 hr meclizine 25 mg tablet 25 mg PO TID PRN dizziness #30 tabs 09/11/21 Unknown Rx furosemide 40 mg tablet 40 mg PO DAILY CHF 12/01/21 08/24/24 History nitroglycerin 0.4 mg sublingual 0.4 mg sublingual Q5-15M PRN chest 12/01/21 Unknown Rx tablet pain #25 tabs amlodipine 2.5 mg tablet 2.5 mg PO DAILY blood pressure 01/25/22 08/24/24 History aspirin 81 mg tablet 81 mg PO DAILY heart health 01/25/22 Unknown History fluticasone 250 mcg-salmeterol 50 1 inh inhalation BID breathing 01/25/22 Unknown History mcg/dose blistr powdr for inhalation acetaminophen 500 mg tablet 1,000 mg PO Q8 Pain 01/29/22 Unknown History tamsulosin 0.4 mg capsule 0.4 mg PO DAILY@1730 30 days #30 02/16/22 Unknown Rx caps oxycodone 5 mg tablet 5 mg PO Q4H PRN PRN Pain Score 06/12/22 Unknown Rx 6-10 3 days #18 tabs doxycycline hyclate 100 mg tablet 100 mg PO BID 03/12/23 Unknown History levofloxacin 500 mg tablet 500 mg PO DAILY #7 tabs 03/12/23 Unknown Rx ondansetron 4 mg disintegrating 4 mg PO Q8H PRN PRN Nausea #10 tabs 03/12/23 Unknown Rx tablet isosorbide mononitrate 60 mg See Rx Instructions .Route 04/13/23 Unknown Rx tablet,extended release 24 hr .COMPLEX #56 tabs losartan 100 mg tablet See Rx Instructions .Route 04/13/23 Unknown Rx .COMPLEX #28 tabs Allergy/AdvReac Type Severity Reaction Status Date / Time adhesive Allergy Rash Verified 07/12/24 13:54 amitriptyline Allergy CONFUSION Verified 07/12/24 13:54 codeine Allergy Hives Verified 07/12/24 13:54 hydrocodone bitartrate (From Allergy Hives Verified 07/12/24 13:54 Vicodin) Iodinated Contrast Media Allergy Hives Verified 07/12/24 13:54 (Iodinated Contrast Media - IV Dye) naproxen Allergy Unknown Verified 07/12/24 13:54 Penicillins Allergy Rash Verified 07/12/24 13:54 phenytoin sodium (From Allergy Hives Verified 07/12/24 13:54 Dilantin) phenytoin sodium extended Allergy Hives Verified 07/12/24 13:54 (From Dilantin) silicone Allergy Hives Verified 07/12/24 13:54 Family History Sister Heart disease Surgical History S/P ORIF (open reduction internal fixation) fracture History of umbilical hernia repair History of hysterectomy History of breast biopsy History of brain surgery S/P ORIF (open reduction internal fixation) fracture (~05/19/15) Social History household members: children and other details: Son. Smoking Status: Never smoker alcohol intake: never substance use type: does not use caffeine: Yes Type: carbonated beverages and coffee ROS ROS Narrative Constitutional: Reports fatigue and weakness. No fever. HEENT: Reports systems reviewed and no addt'l complaints, except as documented Respiratory/Chest: No acute shortness of breath or respiratory distress or wheezing. CVS: No acute chest pain or pressure or tightness Gastrointestinal: Bright red rectal bleed. No vomiting or hematemesis. Rest as described in HPI Genitourinary: Chronic urinary incontinence. Follows urologist. Denies acute burning urination or new urinary tract symptoms Musculoskeletal: Bilateral hip surgery after fracture. Limited ambulation. History of fall in the past. Denies acute joint pain or limited range of motion. No acute injury Neurologic: Denies seizure-like symptoms. skin: No ulcer. No rash Endocrinology: Reports systems reviewed and no addt'l complaints, except as documented Hematologic/Lymphatic: Reports systems reviewed and no addt'l complaints, except as documented Rest 14 ROS are negative except as mentioned in HPI Physical Exam Narrative . Physical exam General: Alert, Oriented x3, Cooperative. BMI 28.9 kg/m? HEENT: Atraumatic, PERRLA, EOMI, Normocephalic Oral: Oral mucosa dry. No Gingival or Mucosal Lesions/ Ulcerations Neck: Supple, No JVD, Negative Carotid Bruits Chest wall/Lungs: Air entry diminished in bilateral lung bases. No crepitation/rhonchi Cardiovascular: Regular rate, Regular Rhythm, Normal S1, Normal S2, No M/G/R Abdomen: Bowel Sounds Present, Soft, no significant tenderness. Non-Distended : No dysuria. No renal angle tenderness. No suprapubic tenderness. Extremities: No edema, Capillary Refill Less than 3 Seconds Skin: No rashes, No breakdown Musculoskeletal: No acute tenderness to Palpation of Joints or Extremities. Bilateral hip surgery. 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 DTR 2+/4. No acute focal neurological deficit. Psych/Mental Status: Flat affect. Lab / Micro Data 08/27/24 05:25 08/27/24 05:25 Labs: Laboratory Results - last 24 hr 08/25/24 08:00: Crossmatch See Detail 08/27/24 05:25: WBC 8.2, RBC 2.75 L, Hgb 8.2 L, Hct 25.4 L, MCV 92.4, MCH 29.8, MCHC 32.3, RDW Std Deviation 45.1 H, RDW Coeff of [place]ain[place] 13.4, Plt Count 260, MPV 9.9, Immature Gran % (Auto) 0.500, Neut % (Auto) 36.0 L, Lymph % (Auto) 23.0, [place] % (Auto) 6.4, Eos % (Auto) 33.0 H, Baso % (Auto) 1.1 H, Absolute Neuts (auto) 2.9, Absolute Lymphs (auto) 1.88, Nucleated RBC % 0, Differential Comment SCANNED, Sodium 140, Potassium 3.7, Chloride 113 H, Carbon Dioxide 22.0, Anion Gap 5, BUN 16, Creatinine 0.81, Estim Creat Clear Calc 53.19, Est GFR (MDRD) Af Amer 86, Est GFR (MDRD) Non-Af 71, BUN/Creatinine Ratio 19.8, Glucose 127 H, Calcium 8.6 Micro: Microbiology 08/26/24 14:17 Stool Stool Lactoferrin - Final 08/26/24 14:17 Stool Enteric Bacteriology - Final Assessment & Plan Assessment/Plan (1) Abdominal pain: (2) Lower GI bleed: PLAN: Plan 88-year-old with crampy abdominal pain and lower GI bleeding 1. GI bleed-the differential diagnosis does include ischemic colitis, diverticular bleed, angiodysplasia, less likely inflammatory bowel disease or infectious colitis. She will undergo colonoscopy with evaluation of her lower GI tract and evaluation of her terminal ileum with biopsies and possible treatment. She was explained alternatives, risk, benefits including outstanding bleeding, infection, sepsis, perforation, need for emergent urgent . She will have an ASA of 3. Charges/Coding Visit Charges Inpatient E&M: 91825 Init Hosp L3
--- NOTE | 2024-08-27 22:15 | PCM.HOSP.N ---
Hospitalist Note Per RN patient course breath sounds, appropriate currently on room air, GI bleed admission. Will obtain AM CXR to be cautious.
[2024-08-28] VITALS (14 sets, daily range): BP systolic 91–152; BP diastolic 49–79; PULSE 64–81; RESP 16–20; TEMP 36.2–36.8; O2SAT 93–100; BMI 28.4
[2024-08-28] MEDS: metroNIDAZOLE 500 MG/100 ML BAG 100 MG IV (05:24)
[2024-08-28 05:45] LABS: Absolute Lymphocyte Count 1.87 X10^3/uL (0.83-4.51); Absolute Neutrophil Count 4.1 X10^3/uL (2.0-7.7); Basophil# 0.15 X10^3/uL; Basophil% 1.5 % (0-1); Eosinophils% 33.3 % (0-5); Hemoglobin 9.4 g/dL (12.0-15.0); Lymphocyte # 1.87 X10^3/ul (0.83-4.51); Lymphocyte % 18.3 % (19-41); Mean Corp Hgb Conc 32.4 g/dL (32-36); Mean Corpuscular Hgb 29.7 pg (27.0-32.0); Mean Corpuscular Volume 91.8 fL (81-99); Mean Platelet Vol. 9.7 fl (6.2-12.0); Monocyte# 0.68 X10^3/uL; Monocyte% 6.7 % (0-10); NRBC Flagged by Analyzer 0 % (0-5); Neutrophil # 4.05 X10^3/uL (2.7-7.7); Neutrophil % 39.7 % (47-70); POSITIVE DIFFERENTIAL YES; Platelet Count 265 K/mm3 (150-450); RBC Distribution Width CV 13.5 % (11.6-14.6); RBC Distribution Width SD 45.5 fl (35.1-43.9); Red Blood Count 3.16 M/mm3 (4.2-5.4); White Blood Count 10.2 K/mm3 (4.4-11.0)
[2024-08-28 05:49] LABS: Differential Indicated SCAN CRITERIA MET; International Normalized Ratio 1.1
--- NOTE | 2024-08-28 05:55 | EKG12_ITS ---
Test Reason : AM EKG Blood Pressure : / mmHG Vent. Rate : 067 BPM Atrial Rate : 067 BPM P-R Int : 162 ms QRS Dur : 146 ms QT Int : 466 ms P-R-T Axes : 053 -26 -41 degrees QTc Int : 492 ms Normal sinus rhythm Right bundle branch block Minimal voltage criteria for LVH, may be normal variant ( R in aVL ) Septal infarct , age undetermined Abnormal ECG When compared with ECG of 25-AUG-2024 08:27, MANUAL COMPARISON REQUIRED, DATA IS UNCONFIRMED Confirmed by SHARRON LAM, CESILIA ([id number]), writer editor SAMAN MANUEL ([id number]) on 08/29/2024 11:40:36 AM Referred By: HI Confirmed By:CESILIA MCDERMOTT MD
[2024-08-28 06:03] LABS: Anion Gap 4 (5-15); BUN 8 mg/dL (7-18); BUN/Creat Ratio 12.2 RATIO (10-20); Calcium,Total 9.1 mg/dL (8.5-10.1); Chloride 112 mmol/L (98-107); Creatinine, Serum 0.66 mg/dL (0.55-1.02); EST Glomerular Filtration Rate 90 mL/min (>60); Est Glom Filt Rate - Afr Amer 109 mL/min (>60); Estimated Creatinine Clearance 53.85 ml/min; Glucose 131 mg/dL (74-106); Potassium 3.4 mmol/L (3.5-5.1); Sodium Level 141 mmol/L (136-145)
--- NOTE | 2024-08-28 06:20 | RAD_ITS ---
STUDY: X-RAY CHEST REASON FOR EXAM: Female, 88 years old. Dyspnea, cough TECHNIQUE: Single AP portable view of the chest. COMPARISON: 10/07/2022 FINDINGS: The lungs are clear and expanded. There is no demonstrated pleural abnormality. Normal size heart. Normal mediastinum and [place]. Normal visualized pulmonary arteries. Normal visualized aortic arch and descending thoracic aorta. Normal visualized thoracic spine. Normal visualized ribs, clavicles, and shoulders. There is no demonstrated abnormality of the visualized soft tissue structures of the upper abdomen. RAD/Chest 1 View (Portable) IMPRESSION: Normal x-ray examination of the chest. Electronically Signed: Ariel Stein MD at 8:57 EDT ,
[2024-08-28] MEDS: Albuterol 2.5 MG/3 ML VIAL.NEB. INHALATION ×2 (06:24→20:14)
[2024-08-28] MEDS: Budesonide Respules 0.5 MG/2 ML AMPUL.NEB. INHALATION ×2 (06:24→20:13)
[2024-08-28 06:43] LABS: Anisocytosis 1+; Differential Comment SCANNED; Platelet Estimate ADEQUATE (ADEQ)
[2024-08-28 06:44] LABS: Ovalocyte 1+
--- NOTE | 2024-08-28 10:51 | NURSING ---
Patient left unit for colonoscopy
--- NOTE | 2024-08-28 11:37 | PCM.PRE.AN2 ---
ASA Classification* ASA Classification ASA Classification: 3 Assessment & Plan Anesthesia* Anesthesia Assessment Anesthesia Assessment: Discussed sedation and/or anesthesia options, risks, benefits, and alternatives with patient/parents/legal guardian/POA. Questions invited. The patient/parents/legal guardian/POA seems to understand and agrees to proceed with anesthesia plan. Reviewed the physical assessment, medical history, allergy history and patient home medications list prior to surgery/procedure/anesthetic and documented any changes. Performed airway and anesthesia risk assessments. Anesthesia Type Anesthesia Type: MAC Anesthesia Focused Assessment* Temperature: 97.7 F Pulse Rate: 71 Blood Pressure: 136/65 Respiratory Rate: 20 Pulse Ox: 99 Airway Assessment Mouth opens: >3 cm Mallampati Score: II Focused Labs Anesthesia Preop lab: CBC WBC 10.2 K/mm3 (4.4-11.0) 08/28/24 05:12 RBC 3.16 M/mm3 (4.2-5.4) L 08/28/24 05:12 Hgb 9.4 g/dL (12.0-15.0) L 08/28/24 05:12 Hct 29.0 % (37-47) L 08/28/24 05:12 Plt Count 265 K/mm3 (150-450) 08/28/24 05:12 CHEMISTRY Potassium 3.4 mmol/L (3.5-5.1) L 08/28/24 05:12 Sodium 141 mmol/L (136-145) 08/28/24 05:12 Magnesium 1.8 mg/dL (1.6-2.6) 08/25/24 08:00 BUN 8 mg/dL (7-18) 08/28/24 05:12 Creatinine 0.66 mg/dL (0.55-1.02) 08/28/24 05:12 Glucose 131 mg/dL (74-106) H 08/28/24 05:12 POC Glucose 126 mg/dL (74-106) H 02/01/22 14:03 TSH 0.586 uIU/mL (0.358-3.740) 08/26/24 04:20 COAG PT 14.0 SECONDS (11.7-14.9) 08/28/24 05:12 Pre-Assessment Diagnosis/Proposed Procedure Planned Operative Procedure(s): Colonoscopy Anesthesia History 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 When Was Last Pacemaker Check QUESTION #4 FULL TEXT: You/Your Family Experience fever (hyperthermia) with Anesthesia Last Oral Intake Last Oral intake: Last Oral Intake NPO since 00:00 08/28/24 10:43 Meds taken in AM with sips of No 08/28/24 10:43 water? 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 Female HX of Motion Sickness HX of N/V After Surgery Non-Smoker Duration of Surgery greater than 60 minutes Number of Risk Factors PONV Score Height & Weight Height & Weight: Anesthesia: Height & Weight Height 5 ft 6 in 08/28/24 10:43 Weight: 80 kg 08/28/24 10:43 Body Mass Index (BMI) 28.4 08/28/24 10:43 Respiratory Assessment Respiratory Assessment - meter installer: Respiratory Tract Infection Hx - meter installer Hx Respiratory Tract Infection No 08/28/24 00:29 STOP Sleep Apnea STOP Sleep Apnea - meter installer: STOP Sleep Apnea - meter installer Hx Hypertension Yes 08/26/24 11:26 Hx Sleep Apnea No 08/25/24 18:59 CPAP No 08/25/24 18:59 BIPAP No 08/25/24 18:59 Do you snore loudly (louder No 08/25/24 18:59 than talking or can be heard Do you often feel tired/ Yes 08/25/24 18:59 fatigued/ sleepy during daytime? Has anyone observed you stop No 08/25/24 18:59 breathing during sleep? STOP Results Positive 08/25/24 18:59 QUESTION #5 FULL TEXT : Do you snore loudly (louder than talking or can be heard through closed doors)? 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 Specify any problems Hx of Preganancy in last 3 No 08/25/24 18:59 Months Nurse Filling Out Transfusion AGILL 08/25/24 18:59 & Questions: Date: 08/25/24 08/25/24 18:59 Time: 19:01 08/25/24 18:59 Patient unable to answer at this time (ie. confused, unrespo /Reproduction History /Reproductive History - meter installer: /Reproductive Hx- meter installer Hx Now No 08/28/24 00:29 Gestational Age (in weeks): EDC: Hx Hx Para Hx Section SAB No 08/28/24 00:29 Active Medications Active Medications: Current Medications Generic Name Dose Route Start Last Admin Trade Name Freq PRN Reason Stop Dose Admin Acetaminophen 650 mg 08/25/24 18:48 08/27/24 21:08 Acetaminophen 325 Mg Tablet PO 650 mg Q6H PRN PRN Administration Pain 1-10 Or Fever >100.7 Albuterol Sulfate 2.5 mg 08/26/24 14:45 08/28/24 06:24 Albuterol 2.5 Mg/3 Ml Vial.Neb. INHALATION 2.5 mg Q6HWA.RT JENNIFER Administration Atenolol 50 mg 08/27/24 10:00 08/27/24 09:03 Atenolol 50 Mg Tablet PO 50 mg DAILY JENNIFER Administration Protocol Atorvastatin Calcium 10 mg 08/27/24 10:00 08/27/24 09:02 Atorvastatin Calcium 10 Mg Tablet PO 10 mg DAILY JENNIFER Administration Budesonide 0.5 mg 08/26/24 14:45 08/28/24 06:24 Budesonide Respules 0.5 Mg/2 Ml Ampul.Neb. INHALATION 0.5 mg Q12H.RT JENNIFER Administration Calamine/Phenol 1 applic 08/28/24 09:00 Menthol/Lanolin/Calamine/Znox 113 Gm Tube TOPICAL TID [facility] Protocol Pantoprazole Sodium 40 mg/ 110 mls @ 330 mls/hr 08/25/24 20:00 08/27/24 21:10 Sodium Chloride IV Infused Q12 JENNIFER Infusion Ceftriaxone Sodium 1 gm in 50 mls @ 100 mls/hr 08/25/24 20:00 08/27/24 10:41 Rocephin IV Infused Q24 JENNIFER Infusion Metronidazole 500 mg in 100 mls @ 100 mls/hr 08/25/24 20:00 08/28/24 07:31 Flagyl IV Infused Q8 JENNIFER Infusion Sodium Chloride 250 mls @ 15 mls/hr 08/25/24 18:51 IV .[id number] PRN Additional IVPB Infusion Sodium Chloride 250 mls @ 15 mls/hr 08/25/24 18:51 IV .[id number] PRN Saline Flush Nitroglycerin 0.4 mg 08/25/24 18:48 Nitroglycerin (Inpatient Use) 0.4 Mg Tab.Subl SL Q5M PRN CARDIAC/CHEST PAIN Ondansetron HCl 4 mg 08/25/24 18:48 Ondansetron 4 Mg/2 Ml Vial IV Q8H PRN PRN NAUSEA/VOMITING Potassium Chloride 20 meq 08/26/24 14:35 08/27/24 16:04 Potassium Chloride Oral Tablet 20 Meq PO 20 meq BIDCM JENNIFER Administration Sodium Chloride 10 - 40 ml 08/25/24 18:51 08/25/24 20:39 0.9% Saline Lock 10 Ml Syringe IV 10 ml UD PRN Administration SALINE FLUSH Tamsulosin HCl 0.4 mg 08/26/24 17:30 08/27/24 16:04 Tamsulosin Hcl 0.4 Mg Capsule PO 0.4 mg DAILY@1730 JENNIFER Administration PFSH Medical History Diverticulitis 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 Closed pelvic fracture Pelvic fracture Fall from slipping Essential hypertension Hypertension Normocytic anemia Closed head injury Closed fracture of right hip Fall Adult failure to thrive Weakness Dizziness Fracture of rib Dilatation of aorta Chronic systolic (congestive) heart failure Angina pectoris Subdural hematoma Insomnia Urinary incontinence History of stroke Overactive bladder Allergic rhinitis COPD (chronic obstructive pulmonary disease) Asthma Vitamin D deficiency Edema Urinary tract infection Hallucinations Intellectual disability Encephalopathy Fall Hypokalemia Acute cystitis Acute ischemic stroke Left hip pain Decreased level of consciousness Lethargy Shortness of breath HLD (hyperlipidemia) Gastroesophageal reflux disease Cerebrovascular disease Benign essential HTN Home Medications ?Medication ?Instructions ?Recorded ?Last Taken ?Type atenolol 50 mg tablet 50 mg PO DAILY blood pressure 01/31/19 08/24/24 History atorvastatin 10 mg tablet 10 mg PO DAILY cholesterol 01/31/19 08/24/24 History clopidogrel 75 mg tablet 75 mg PO DAILY heart health 01/31/19 08/24/24 History loratadine 10 mg tablet 10 mg PO DAILY allergies 01/31/19 09/10/21 History omeprazole 20 mg capsule,delayed 20 mg PO DAILY GERD 01/31/19 09/10/21 History release potassium chloride 20 mEq 20 meq PO BID supplement 09/01/19 09/10/21 History tablet,extended release(part/cryst) albuterol sulfate 90 mcg/actuation 1 - 2 puff IH Q4H PRN PRN Wheezing 06/13/20 2 Weeks Ago History aerosol inhaler ~08/27/21 cholecalciferol (vitamin D3) 25 2,000 unit PO DAILY supplement 06/13/20 09/10/21 History mcg (1,000 unit) tablet melatonin 5 mg tablet 5 mg PO QHS PRN Sleep 09/10/21 Unknown History oxybutynin chloride 15 mg 10 mg PO DAILY BLADDER 09/10/21 09/10/21 History tablet,extended release 24 hr meclizine 25 mg tablet 25 mg PO TID PRN dizziness #30 tabs 09/11/21 Unknown Rx furosemide 40 mg tablet 40 mg PO DAILY CHF 12/01/21 08/24/24 History nitroglycerin 0.4 mg sublingual 0.4 mg sublingual Q5-15M PRN chest 12/01/21 Unknown Rx tablet pain #25 tabs amlodipine 2.5 mg tablet 2.5 mg PO DAILY blood pressure 01/25/22 08/24/24 History aspirin 81 mg tablet 81 mg PO DAILY heart health 01/25/22 Unknown History fluticasone 250 mcg-salmeterol 50 1 inh inhalation BID breathing 01/25/22 Unknown History mcg/dose blistr powdr for inhalation acetaminophen 500 mg tablet 1,000 mg PO Q8 Pain 01/29/22 Unknown History tamsulosin 0.4 mg capsule 0.4 mg PO DAILY@1730 30 days #30 02/16/22 Unknown Rx caps oxycodone 5 mg tablet 5 mg PO Q4H PRN PRN Pain Score 06/12/22 Unknown Rx 6-10 3 days #18 tabs doxycycline hyclate 100 mg tablet 100 mg PO BID 03/12/23 Unknown History levofloxacin 500 mg tablet 500 mg PO DAILY #7 tabs 03/12/23 Unknown Rx ondansetron 4 mg disintegrating 4 mg PO Q8H PRN PRN Nausea #10 tabs 03/12/23 Unknown Rx tablet isosorbide mononitrate 60 mg See Rx Instructions .Route 04/13/23 Unknown Rx tablet,extended release 24 hr .COMPLEX #56 tabs losartan 100 mg tablet See Rx Instructions .Route 04/13/23 Unknown Rx .COMPLEX #28 tabs Allergy/AdvReac Type Severity Reaction Status Date / Time adhesive Allergy Rash Verified 07/12/24 13:54 amitriptyline Allergy CONFUSION Verified 07/12/24 13:54 codeine Allergy Hives Verified 07/12/24 13:54 hydrocodone bitartrate (From Allergy Hives Verified 07/12/24 13:54 Vicodin) Iodinated Contrast Media Allergy Hives Verified 07/12/24 13:54 (Iodinated Contrast Media - IV Dye) naproxen Allergy Unknown Verified 07/12/24 13:54 Penicillins Allergy Rash Verified 07/12/24 13:54 phenytoin sodium (From Allergy Hives Verified 07/12/24 13:54 Dilantin) phenytoin sodium extended Allergy Hives Verified 07/12/24 13:54 (From Dilantin) silicone Allergy Hives Verified 07/12/24 13:54 Family History Sister Heart disease Surgical History S/P ORIF (open reduction internal fixation) fracture History of umbilical hernia repair History of hysterectomy History of breast biopsy History of brain surgery S/P ORIF (open reduction internal fixation) fracture (~05/19/15) Social History household members: children and other details: Son. Smoking Status: Never smoker alcohol intake: never substance use type: does not use caffeine: Yes Type: carbonated beverages and coffee Review of Systems (Anesthesia) ROS Narrative System reviewed and no additional complaints, except as documented.
--- NOTE | 2024-08-28 12:30 | COLBX_PTH ---
PATHOLOGY RESULTS PATIENT: CARMEN LAND LOC: U U#:[id number] AGE/SX: 89/F ROOM: [facility] RE08/25/[address]: Dr. Ronald Ford MD : 1935 BED: 1 DIS: 09/15/2024 SPEC #: [id number] RECD: 08/28/24 13:35 STATUS: ALFONSO ALLENRonaldo #: [id number] EVIE: 08/28/24 12:[address]: Merlin Herrera DEPT: SURGICAL PATHOLOGY RECD BY: Dinesh Hairston ENTERED: 08/28/24 14:03 SP TYPE: COLON BX ALVA DR: MD Dr. Mayra Troy DO Dr. Prakash Chand, MD Tissues: Ascending colon Procedures: Surgery Specimen Level IV HEADER OPERATION: Colonoscopy, biopsy, spot injection PRE-OP DIAGNOSIS: Abdominal pain, lower GI bleed TISSUE SUBMITTED: Ascending colon mass biopsy MICROSCOPIC DIAGNOSIS Ascending colon mass, biopsy: Fragments of villous adenoma. AM 08/29/2024 MICROSCOPIC DESCRIPTION Slides are reviewed. GROSS DESCRIPTION Received in fixative is one container labeled with the patient's name and designated Ascending colon mass biopsy. The specimen consists of multiple irregular fragments of light miller soft tissue that in aggregate measure 1.0 x 0.3 x 0.1 cm. The specimen is totally submitted in one cassette. 08/28/2024 TC:5 CPT:51460
--- NOTE | 2024-08-28 13:18 | PCM.POST.ANE ---
Anesthesia: Postop Eval I Current Vital Signs Temperature: 97.1 F Pulse Rate: 81 Blood Pressure: 104/51 Respiratory Rate: 16 Pulse Ox: 98 Oxygen Delivery Method: Nasal Cannula Oxygen Flow Rate (L/min): 3 Assessment Airway patent: Yes Spontaneous unlabored respirations: Yes Mental status: Awake and Calm nausea: No Vomiting: No Anesthesia Complication: No Fluid Hydration Crystalloid volume administer (ml): 40 Total IV fluid infused: 40 Progress Note Anesthesia document: Postop Eval 1 completed: Yes
--- NOTE | 2024-08-28 13:45 | OP.CCLET_ITS ---
08/28/2024 Linn Will [address] [place] [address] Re : Colonoscopy procedure for Julisa Gayle Dear Dr. Will This procedure was performed on Wednesday, August 28, 2024. My impressions and recommendations are as follows: Impressions : - Preparation of the colon was fair. - Hemorrhoids found on perianal exam. - Diverticulosis in the recto-sigmoid colon, in the sigmoid colon and in the descending colon. - Stool at the anus, in the rectum, in the sigmoid colon, in the descending colon, at the splenic flexure, in the transverse colon, at the hepatic flexure, in the ascending colon and in the cecum. - Rule out malignancy, tumor in the ascending colon. Biopsied. Tattooed. - The examination was suspicious for a malignant-appearing tumor. Biopsied. Injected. Recommendations : - [facility]. - Resume regular diet. - Continue present medications. - Await pathology results. - CEA -CT scan of the chest abdomen pelvis - Repeat colonoscopy is recommended. The colonoscopy date will be determined after pathology results from today's exam become available for review. My findings are described in the full procedure note, which is enclosed. If I can be of further assistance, please feel free to contact me at . Sincerely, Merlin Herrera, 08/28/2024 1:44:37 PM This report has been signed electronically.
--- NOTE | 2024-08-28 13:45 | OP.COLON_ITS ---
Patient Name: Julisa Gayle Procedure Date: 08/28/2024 12:34 PM Date of : 1935 Age: 88 Procedure: Colonoscopy Indications: Gastrointestinal bleeding Providers: Merlin Herrera DO Medicines: Monitored Anesthesia Care Patient Profile: This is an 88 year old female. Refer to note in patient chart for documentation of history and physical. Last Colonoscopy: date unknown. Unable to locate last colonoscopy report. Complications: No immediate complications. Procedure: Pre-Anesthesia Assessment: - Prior to the procedure, a History and Physical was performed, and patient medications and allergies were reviewed. The patient is competent. The risks and benefits of the procedure and the sedation options and risks were discussed with the patient. All questions were answered and informed consent was obtained. Patient identification and proposed procedure were verified by the physician in the pre-procedure area. Mental Status Examination: alert and oriented. Airway Examination: normal oropharyngeal airway and neck mobility. Respiratory Examination: clear to auscultation. CV Examination: normal. Prophylactic Antibiotics: The patient does not require prophylactic antibiotics. Prior Anticoagulants: The patient has taken no anticoagulant or antiplatelet agents. ASA Grade Assessment: III - A patient with severe systemic disease. After reviewing the risks and benefits, the patient was deemed in satisfactory condition to undergo the procedure. The anesthesia plan was to use monitored anesthesia care (MAC). Immediately prior to administration of medications, the patient was re-assessed for adequacy to receive sedatives. The heart rate, respiratory rate, oxygen saturations, blood pressure, adequacy of pulmonary ventilation, and response to care were monitored throughout the procedure. The physical status of the patient was re-assessed after the procedure. After I obtained informed consent, the scope was passed under direct vision. Throughout the procedure, the patient's blood pressure, pulse, and oxygen saturations were monitored continuously. The colonoscope was introduced through the anus and advanced to the cecum, identified by the appendiceal orifice. The colonoscopy was performed without difficulty. The patient tolerated the procedure well. The quality of the bowel preparation was fair. The ileocecal valve, appendiceal orifice, and rectum were photographed. Scope In: 12:48:21 PM Scope Withdrawal Time 0 hours 12 minutes 9 seconds Scope Out: 1:09:14 PM Total Procedure Duration Time 0 hours 20 minutes 53 seconds Findings: Hemorrhoids were found on perianal exam. Multiple small and large-mouthed diverticula were found in the recto-sigmoid colon, sigmoid colon and descending colon. Stool was found at the anus, in the rectum, in the sigmoid colon, in the descending colon, at the splenic flexure, in the transverse colon, at the hepatic flexure, in the ascending colon and in the cecum. A frond-like/villous non-obstructing large mass was found in the ascending colon. The mass was non-circumferential. Oozing was present. This was biopsied with a cold forceps for histology. Verification of patient identification for the specimen was done. Area was tattooed with an injection of 1 mL of Juju ink. Impression: - Preparation of the colon was fair. - Hemorrhoids found on perianal exam. - Diverticulosis in the recto-sigmoid colon, in the sigmoid colon and in the descending colon. - Stool at the anus, in the rectum, in the sigmoid colon, in the descending colon, at the splenic flexure, in the transverse colon, at the hepatic flexure, in the ascending colon and in the cecum. - Rule out malignancy, tumor in the ascending colon. Biopsied. Tattooed. - The examination was suspicious for a malignant-appearing tumor. Biopsied. Injected. Recommendation: - [facility] to [facility]. - Resume regular diet. - Continue present medications. - Await pathology results. - CEA -CT scan of the chest abdomen pelvis - Repeat colonoscopy is recommended. The colonoscopy date will be determined after pathology results from today's exam become available for review. Procedure Code(s): --- Professional --- 19382, Colonoscopy, flexible; with biopsy, single or multiple 24513, Colonoscopy, flexible; with directed submucosal injection(s), any substance CPT copyright 2021 [employer]. All rights reserved. The codes documented in this report are preliminary and upon sexual assault counsellor review may be revised to meet current compliance requirements. Merlin Herrera DO 08/28/2024 1:44:37 PM This report has been signed electronically. Number of Addenda: 0 Note Initiated On: 08/28/2024 12:34 PM
--- NOTE | 2024-08-28 14:00 | NURSING ---
Patient returned to unit
[2024-08-28] MEDS: Pantoprazole Sodium 40 MG in 0.9% Normal Saline (100mL MB+) 100 ML 330 MG IV ×2 (14:52→23:35)
[2024-08-28] MEDS: FLU VACCINE **HIGH DOSE** TV 24-25 180 MCG/0.5 ML SYRINGE IM (14:56)
[2024-08-28] MEDS: Atenolol 50 MG Tablet PO (15:01)
[2024-08-28] MEDS: Potassium Chloride Oral Tablet 20 MEQ PO (15:01)
[2024-08-28] MEDS: Atorvastatin Calcium 10 MG Tablet PO (15:04)
[2024-08-28] MEDS: Potassium Chloride Oral Tablet 20 MEQ 40 MEQ PO (15:10)
[2024-08-28] MEDS: Menthol/Lanolin/Calamine/Znox 113 GM Tube 1 APPLIC TOPICAL ×2 (15:11→21:17)
--- NOTE | 2024-08-28 16:27 | PCM.PN.HOSP ---
Reason for Visit Reason for Visit: Rectal bleeding Subjective Subjective Patient is an 88-year-old white female who presented to the emergency department [facility] on 08/25/2020 for due to rectal bleeding. On the day of presentation she stated she went to the bathroom and had a bowel movement and felt that there was blood in her stool. She also noted that the toilet bowl was full of red liquid after her bowel movement. She also complained of some right sided lower abdominal pain and a ripping sensation intermittently in her abdomen for about a month. She denied any weight loss and stated that her appetite has been fine. Vital signs on presentation showed a temperature of 97.5, heart rate 72, blood pressure 120/65, pulse ox was 97% on 4 L nasal cannula as she was found to be hypoxic on room air with sats in the 80s. At the time of presentation her hemoglobin was found to be 11.3 and dropped to a lazaro of 8.2 she was given 1 unit of packed red blood cells. The patient denied ever having colonoscopy. Her chemistry panel showed normal electrolytes but she did appear to be somewhat dehydrated with a serum creatinine of 1.45 and a baseline of 0.6-1.0. Glucose was 178. Liver functions were unremarkable. Her lipase was 76. TSH was within normal limits. CTA of her abdomen and pelvis was performed and sigmoid diverticulosis without diverticulitis was noted and findings suggestive of small gallstones or sludge in the dependent portion of the right gallbladder lumen. This was a noncontrasted study. The case was discussed with GI and they recommended holding her Plavix and were concerned that this could be ischemic colitis and plan for colonoscopy. Colonoscopy was performed on 08/28/2020 for at which time she was found to have a fair colon prep with hemorrhoids on perianal exam, diverticulosis in the rectosigmoid, occult sigmoid and descending colon and a tumor in the ascending colon that was tattooed and biopsied. Examination was suspicious for malignant appearing tumor. CEA was ordered and a follow-up CTA of the chest abdomen pelvis is to be performed once IV access is improved this patient only is a 24 and at this time we cannot inject contrast through this. Patient has no complaints at this time. I did sit down and discussed the results of the colonoscopy with her and she voiced understanding. She indicated family would be by again tomorrow and we will have more data at that time after she has her midline and will be able to get her scan after she is premedicated due to history of contrast allergy. Objective Data Objective Data Vital Signs: Vital Signs Temp Pulse Resp BP Pulse Ox O2 Del Method O2 Flow Rate 97.6 F L 65 18 146/66 H 100 Room Air 3 08/28/24 16:03 08/28/24 16:03 08/28/24 16:03 08/28/24 16:03 08/28/24 16:07 08/28/24 16:07 08/28/24 16:03 Oxygen Flow Rate (L/min) 3 Oxygen Delivery Method Room Air Weight: 80 kg Body Mass Index (BMI) 28.4 Intake & Output: Intake and Output for Last 24 Hours 08/26/24 08/27/24 08/28/24 23:59 23:59 23:59 Intake Total 2021.67 / 2261.67 2812 / 2812 210 / 210 Output Total 900 / 1500 600 / 600 Balance 1121.67 / 761.67 2212 / 2212 210 / 210 Lab / Micro Data 08/28/24 05:12 08/28/24 05:12 Labs: Laboratory Results - last 24 hr 08/25/24 08:00: Crossmatch See Detail 08/28/24 05:12: WBC 10.2, RBC 3.16 L, Hgb 9.4 L, Hct 29.0 L, MCV 91.8, MCH 29.7, MCHC 32.4, RDW Std Deviation 45.5 H, RDW Coeff of Taina 13.5, Plt Count 265, MPV 9.7, Immature Gran % (Auto) 0.500, Neut % (Auto) 39.7 L, Lymph % (Auto) 18.3 L, Clark % (Auto) 6.7, Eos % (Auto) 33.3 H, Baso % (Auto) 1.5 H, Absolute Neuts (auto) 4.1, Absolute Lymphs (auto) 1.87, Nucleated RBC % 0, Differential Comment SCANNED, Platelet Estimate ADEQUATE, Anisocytosis 1+, Ovalocytes 1+, PT 14.0, INR 1.1, Sodium 141, Potassium 3.4 L, Chloride 112 H, Carbon Dioxide 25.0, Anion Gap 4 L, BUN 8, Creatinine 0.66, Estim Creat Clear Calc 53.85, Est GFR (MDRD) Af Amer 109, Est GFR (MDRD) Non-Af 90, BUN/Creatinine Ratio 12.2, Glucose 131 H, Calcium 9.1 Micro: Microbiology 08/26/24 14:17 Stool Stool Lactoferrin - Final 08/26/24 14:17 Stool Enteric Bacteriology - Final Radiography Diagnostic Testing: Radiology Impression Chest X-Ray 08/28/24 06:20 IMPRESSION: Normal x-ray examination of the chest. Electronically Signed: Ariel Stein MD at 8:57 EDT , Physical Exam Const alert, oriented x3, no apparent distress and well nourished Constitutional Narrative: Overweight, elderly, white female, lying in bed, nursing at bedside, appears comfortable, nontoxic HEENT head/scalp atraumatic HEENT Narrative: Mallampati 2, no thrush Eyes PERRL, EOMs intact bilaterally and conjunctivae normal Eyes Narrative: Bilateral conjunctiva pallor Neck no lymphadenopathy and supple Neck Narrative: Trachea midline Resp normal respiratory effort, no retractions, no use of accessory muscles and clear to auscultation bilaterally Auscultation: Negative for rales, rhonchi or wheezes Cardio regular rate, regular rhythm, S1 normal heart sound, S2 normal heart sound, no murmurs, no rub, no gallops and no clicks GI normal to inspection, nondistended, normoactive bowel sounds and soft to palpation GI Narrative: Mild tenderness in right lower quadrant Extremity no clubbing, cyanosis or edema Extremity Narrative: Pedal pulses are 2+, radial pulses are 2+ Neuro oriented x3, moves all extremities and no focal motor deficits Neuro Narrative: Generalized weakness noted with proximal musculature being weaker than distal musculature Speech: speech normal Psych affect normal Psych Narrative: Eye contact is good and patient interacts appropriately Assessment & Plan Assessment/Plan (1) Abdominal pain: (2) Lower GI bleed: (3) Neoplasm of ascending colon: PLAN: Plan Lower GI bleed -Colonoscopy done today and patient was found to have a right ascending colon tumor that is suspicious for malignancy -CEA is pending -CT chest abdomen pelvis ordered after midline placed and patient is pretreated with Solu-Medrol and Benadryl for contrast allergy -Will continue to hold Plavix for now -Discontinue ceftriaxone and Flagyl Acute on chronic anemia -Baseline hemoglobin appears to run between 11 and 12 -Lazaro of 8.2 and patient was given 1 unit of packed red blood cells on 08/27/2024 -Hemoglobin up to 9.4 today--> repeat lab in a.m. Hypokalemia -40 mEq p.o. potassium replacement -Recheck in a.m. -Check a.m. magnesium level Chronic HFpEF/essential hypertension/hyperlipidemia -Last echo was from 2021 reported EF of 65% with normal systolic function, 1-2+ MR, trivial TR, mild AI, mild PI and a mildly dilated aortic root with moderate left atrial enlargement -Will continue to hold diuretic and isosorbide mononitrate -Continue home atenolol -Continue home amlodipine History of stroke -Hold Plavix due to the above -Continue secondary prevention Bilateral carotid artery stenosis -Less than 50% -Outpatient follow-up Hyperglycemia -178 in presentation -Fasting sugar at 131 today -Will check hemoglobin A1c GERD -Patient previously on omeprazole -Has not yet been verified -If verified will reinitiate Overactive Bladder -Had previously been on oxybutynin -Currently med reconciliation is not complete -Will restart if taking DVT prophylaxis -Chemoprophylaxis on hold due to GI bleeding -Continue SCDs CODE STATUS -Documented as DNR CCA with no intubation however order was not placed so will need further discussion with patient Charges/Coding Visit Charges Inpatient E&M: 90569 [facility] Hosp L3
--- NOTE | 2024-08-28 16:29 | PCM.POSTANE2 ---
Anesthesia Postop Eval I Sum Postop Eval Completion status Anesthesia document: Postop Eval 1 completed: Yes Anesthesia Postop Eval I Summary Anesthesia Postop Eval I Summary: Anesthesia Postop Eval I: Assessment Summary Airway patent Yes 08/28/24 13:19 [email or web address] Spontaneous unlabored Yes 08/28/24 13:19 [email or web address] respirations Mental status Awake,Calm 08/28/24 13:19 [email or web address] nausea No 08/28/24 13:19 [email or web address] Vomiting No 08/28/24 13:19 [email or web address] Anesthesia Postop Eval I: Fluid Summary Crystalloid volume administer 40 08/28/24 13:19 [email or web address] (ml) Colloids volume administered ( ml) Blood Product volume administered (ml) Total IV fluid infused 40 08/28/24 13:19 [email or web address] Anesthesia Postop Eval I: Summary Notes Anesthesia Complication No 08/28/24 13:19 [email or web address] Anesthesia Complication Comment: Post-operative progress note Anesthesia: Postop Eval II Evaluation Mental status: Awake Pain Level: 0 nausea: No Vomiting: No
--- NOTE | 2024-08-28 16:37 | CT_ITS ---
INDICATION: Colon malignancy-metastatic disease EXAMINATION: CTA CHEST, ABDOMEN AND PELVIS WITH CONTRAST - TECHNIQUE: A CTA of the chest, abdomen, and pelvis is obtained with sagittal and coronal reconstructed MIP views. Three-dimensional surface rendered sequence of the thoracic and abdominal aorta was obtained. The protocol utilizes one or more of the following dose reduction techniques: automated exposure control, adjustment of mA and/or kV according to patient size,and/or use of iterative reconstruction technique. mL of Isovue-370. Oral contrast: None. RADIATION DOSAGE (If Supplied By Facility): CTDIvol = ( 15.62 ) mGy, DLP = ( 1098.05 ) mGycm COMPARISON: FINDINGS: CT CHEST: THORACIC AORTA: No atheromatous disease, no aneurysmal changes or dissection. ABDOMINAL AORTA: No aneurysm or dissection. Atherosclerotic calcifications with no hemodynamically significant stenosis.. The iliac arteries demonstrate atherosclerotic calcifications with no hemodynamically significant stenosis. LUNGS: The lungs are well-expanded without acute or chronic changes. No effusions or pneumothorax. MEDIASTINUM: The thyroid gland is normal. No mediastinal or hilar adenopathy. HEART: Heart is normal size. No pericardial effusion. No CAD. CT ABDOMEN AND PELVIS: LIVER: The liver enhances homogeneously. No masses identified. GALLBLADDER: The CBD is normal. Mild wall thickening of the gallbladder with slight pericholecystic stranding.. SPLEEN: Normal. PANCREAS: No masses or inflammation. ADRENAL GLANDS: Normal. KIDNEYS AND URETERS: The kidneys both enhance appropriately. There are normal size and shape. No hydronephrosis or nephrolithiasis. Bilateral renal cysts. STOMACH: Normal. SMALL BOWEL: No abnormal distention of the small bowel. MESENTERY: No mesenteric inflammation. No ascites. COLON: There is diverticulosis, masses or inflammation. The colon otherwise is normal. There is a large fatty ileocecal valve. IVC: Normal. RETROPERITONEUM: No retroperitoneal lymphadenopathy. PELVIC STRUCTURES: Normal bladder. SOFT TISSUES ABDOMEN: The anterior abdominal wall is normal. SOFT TISSUE CHEST: The extrathoracic soft tissues are normal. BONES: Degenerative vertebral changes. No fractures or significant degenerative disease. CT/CTA Chst, Abd, Pel W and/or WO IMPRESSION: Mild gallbladder wall thickening or pericholecystic stranding Colonic diverticulosis. No abdominal aortic aneurysm or dissection.. Atherosclerotic disease. Electronically Signed: Osbaldo Tirado DO at 23:06 EDT ,
[2024-08-28] MEDS: Tamsulosin HCl 0.4 MG Capsule PO (18:33)
[2024-08-28] MEDS: DiphenhydrAMINE 50 MG/ML Syringe IV (21:17)
[2024-08-29 02:00] VITALS: BP 128/67; PULSE 66; RESP 18; TEMP 36.4; O2SAT 92
[2024-08-29 06:28] LABS: Absolute Lymphocyte Count 1.03 X10^3/uL (0.83-4.51); Absolute Neutrophil Count 6.7 X10^3/uL (2.0-7.7); Basophil# 0.04 X10^3/uL; Basophil% 0.5 % (0-1); Eosinophil# 0.02 X10^3/uL; Eosinophils% 0.3 % (0-5); Hematocrit 31.8 % (37-47); Hemoglobin 10.2 g/dL (12.0-15.0); Lymphocyte # 1.03 X10^3/ul (0.83-4.51); Lymphocyte % 12.9 % (19-41); Mean Corp Hgb Conc 32.1 g/dL (32-36); Mean Corpuscular Hgb 29.1 pg (27.0-32.0); Mean Corpuscular Volume 90.6 fL (81-99); Mean Platelet Vol. 9.5 fl (6.2-12.0); Monocyte# 0.06 X10^3/uL; Monocyte% 0.8 % (0-10); NRBC Flagged by Analyzer 0 % (0-5); Neutrophil # 6.74 X10^3/uL (2.7-7.7); Neutrophil % 84.4 % (47-70); Platelet Count 295 K/mm3 (150-450); RBC Distribution Width CV 13.6 % (11.6-14.6); RBC Distribution Width SD 44.7 fl (35.1-43.9); Red Blood Count 3.51 M/mm3 (4.2-5.4)
[2024-08-29 06:55] LABS: International Normalized Ratio 1.1; Prothrombin Time (Protime)PT. 14.3 SECONDS (11.7-14.9)
[2024-08-29 07:13] VITALS: PULSE 68; RESP 16; O2SAT 95
[2024-08-29] MEDS: Albuterol 2.5 MG/3 ML VIAL.NEB. INHALATION (07:13)
[2024-08-29] MEDS: Budesonide Respules 0.5 MG/2 ML AMPUL.NEB. INHALATION (07:13)
[2024-08-29 07:43] LABS: ALB/GLOB Ratio 0.7 RATIO (0.9-2.4); AST(SGOT) 14 U/L (15-37); Alanine Aminotransfer ALT/SGPT 13 U/L (13-56); Albumin, Serum 2.7 g/dL (3.2-5.0); Alkaline Phosphatase 75 U/L (45-117); Anion Gap 8 (5-15); BUN 12 mg/dL (7-18); Calcium,Total 9.5 mg/dL (8.5-10.1); Chloride 110 mmol/L (98-107); Creatinine, Serum 0.86 mg/dL (0.55-1.02); EST Glomerular Filtration Rate 67 mL/min (>60); Est Glom Filt Rate - Afr Amer 81 mL/min (>60); Globulin 3.8 g/dL (2.2-4.2); Glucose 179 mg/dL (74-106); Magnesium 1.6 mg/dL (1.6-2.6); Potassium 4.1 mmol/L (3.5-5.1); Protein, Total 6.5 g/dL (6.4-8.2); Sodium Level 141 mmol/L (136-145)
[2024-08-29] MEDS: Pantoprazole Sodium 40 MG in 0.9% Normal Saline (100mL MB+) 100 ML 330 MG IV ×2 (07:59→20:42)
[2024-08-29] MEDS: Atorvastatin Calcium 10 MG Tablet PO (07:59)
[2024-08-29] MEDS: Potassium Chloride Oral Tablet 20 MEQ PO ×2 (07:59→15:57)
[2024-08-29 08:00] VITALS: BP 129/69; PULSE 79; RESP 16; TEMP 35.9; O2SAT 92
[2024-08-29] MEDS: Menthol/Lanolin/Calamine/Znox 113 GM Tube 1 APPLIC TOPICAL ×2 (08:00→20:45)
[2024-08-29] MEDS: Atenolol 50 MG Tablet PO (08:02)
[2024-08-29 10:08] LABS: Hemoglobin A1c 5.4 % (3.8-5.6)
[2024-08-29] MEDS: Acetaminophen 325 MG Tablet 650 MG PO (12:47)
[2024-08-29 14:00] VITALS: BP 153/72; PULSE 76; RESP 15; TEMP 36.2; O2SAT 94
[2024-08-29] MEDS: Tamsulosin HCl 0.4 MG Capsule PO (15:57)
[2024-08-29 17:46] LABS: Hematocrit 29.5 % (37-47); Hemoglobin 9.6 g/dL (12.0-15.0)
--- NOTE | 2024-08-29 17:55 | PCM.PN.HOSP ---
Reason for Visit Reason for Visit: Rectal bleeding Subjective Subjective No issues overnight. Patient did develop some recurrent rectal bleeding with clots this afternoon. Awaiting repeat hemoglobin. Patient denies any symptoms. I was able to talk with family and they are amenable to surgical intervention for the right sided mass noted on colonoscopy. Objective Data Objective Data Vital Signs: Vital Signs Temp Pulse Resp BP Pulse Ox O2 Del Method O2 Flow Rate 97.1 F L 76 15 153/72 H 94 Room Air 3 08/29/24 14:00 08/29/24 14:00 08/29/24 14:00 08/29/24 14:00 08/29/24 14:00 08/29/24 14:00 08/28/24 16:03 Oxygen Flow Rate (L/min) 3 Oxygen Delivery Method Room Air Weight: 80 kg Body Mass Index (BMI) 28.4 Intake & Output: Intake and Output for Last 24 Hours 08/27/24 08/28/24 08/29/24 23:59 23:59 23:59 Intake Total 2812 / 2812 210 / 450 820 / 820 Output Total 600 / 600 1250 / 1250 Balance 2212 / 2212 210 / 450 -430 / -430 Lab / Micro Data 08/29/24 17:38 08/29/24 06:06 Labs: Laboratory Results - last 24 hr 08/29/24 06:06: WBC 8.0, RBC 3.51 L, Hgb 10.2 L, Hct 31.8 L, MCV 90.6, MCH 29.1, MCHC 32.1, RDW Std Deviation 44.7 H, RDW Coeff of Taina 13.6, Plt Count 295, MPV 9.5, Immature Gran % (Auto) 1.100 H, Neut % (Auto) 84.4 H, Lymph % (Auto) 12.9 L, Stanly % (Auto) 0.8, Eos % (Auto) 0.3, Baso % (Auto) 0.5, Absolute Neuts (auto) 6.7, Absolute Lymphs (auto) 1.03, Nucleated RBC % 0, PT 14.3, INR 1.1, Sodium 141, Potassium 4.1, Chloride 110 H, Carbon Dioxide 23.0, Anion Gap 8, BUN 12, Creatinine 0.86, Estim Creat Clear Calc 50.10, Est GFR (MDRD) Af Amer 81, Est GFR (MDRD) Non-Af 67, BUN/Creatinine Ratio 14.0, Glucose 179 H, Hemoglobin A1c 5.4, Calcium 9.5, Magnesium 1.6, Total Bilirubin 0.50, AST 14 L, ALT 13, Alkaline Phosphatase 75, Total Protein 6.5, Albumin 2.7 L, Globulin 3.8, Albumin/Globulin Ratio 0.7 L 08/29/24 17:38: Hgb 9.6 L, Hct 29.5 L Micro: Microbiology 08/26/24 14:17 Stool Stool Lactoferrin - Final 08/26/24 14:17 Stool Enteric Bacteriology - Final Radiography Diagnostic Testing: Radiology Impression Chest/Abdomen/Pelvis CTA 08/28/24 16:37 IMPRESSION: Mild gallbladder wall thickening or pericholecystic stranding Colonic diverticulosis. No abdominal aortic aneurysm or dissection.. Atherosclerotic disease. Electronically Signed: Osbaldo Tirado DO at 23:06 EDT Reading Location ID and State: [facility] / [place] Tel [phone], Service support , Physical Exam Const alert, oriented x3, no apparent distress and well nourished; Negative for average body habitus Constitutional Narrative: Overweight, elderly, white female, lying in bed, nursing at bedside, appears comfortable, nontoxic HEENT head/scalp atraumatic and moist oral mucous membranes HEENT Narrative: Edentulous, Mallampati 2, no thrush Eyes PERRL and EOMs intact bilaterally; Negative for conjunctivae normal Eyes Narrative: Bilateral conjunctiva pallor Neck no lymphadenopathy and supple Neck Narrative: Trachea midline Resp normal respiratory effort, no retractions, no use of accessory muscles and clear to auscultation bilaterally Auscultation: Negative for rales, rhonchi or wheezes Cardio regular rate, regular rhythm, S1 normal heart sound, S2 normal heart sound, no murmurs, no rub, no gallops and no clicks GI normal to inspection, nondistended, normoactive bowel sounds, soft to palpation and non-tender Extremity no clubbing, cyanosis or edema Extremity Narrative: Pedal pulses are 2+, radial pulses are 2+, midline left upper extremity is clean dry and intact Skin skin turgor normal, no jaundice, no petechiae and no mottling Skin Narrative: Skin is pale Neuro oriented x3, moves all extremities and no focal motor deficits Neuro Narrative: Generalized weakness noted with proximal musculature being weaker than distal musculature, patient does seem to have some short-term memory deficits Speech: speech normal Psych affect normal Psych Narrative: Eye contact is good and patient interacts appropriately Assessment & Plan Assessment/Plan (1) Abdominal pain: (2) Lower GI bleed: (3) Neoplasm of ascending colon: PLAN: Plan Lower GI bleed -Colonoscopy done today and patient was found to have a right ascending colon tumor that is suspicious for malignancy -Biopsy shows large villous adenoma on the periphery of the specimen however could still be malignancy underneath -CEA is pending -CT chest abdomen pelvis was unremarkable for any metastatic disease -Will continue to hold Plavix for now -Consult general surgery-discussed with Dr. Calvin -Extensive conversation with family and they are all okay with proceeding with surgery for removal which will likely be on Wednesday -Clear liquid diet Acute on chronic anemia -Baseline hemoglobin appears to run between 11 and 12 -Ji of 8.2 and patient was given 1 unit of packed red blood cells on 08/27/2024 -Hemoglobin 10.1 this morning but has had bleeding -Will check every 6 hour hemoglobins and transfuse for drop Hypokalemia - resolved Chronic HFpEF/essential hypertension/hyperlipidemia -Last echo was from 2021 reported EF of 65% with normal systolic function, 1-2+ MR, trivial TR, mild AI, mild PI and a mildly dilated aortic root with moderate left atrial enlargement -Will continue to hold diuretic -Restart home isosorbide mononitrate tomorrow blood pressures remain stable -Continue home atenolol -Continue home amlodipine History of stroke -Hold Plavix due to the above -Continue secondary prevention Bilateral carotid artery stenosis -Less than 50% -Outpatient follow-up Hyperglycemia -178 in presentation--> suspect reactive -A1c was 5.4 however it was drawn after transfusion -Will add sliding scale especially in the perioperative and postoperative period as blood sugar control be important for healing GERD -Patient previously on omeprazole -Has not yet been verified -If verified will reinitiate Overactive Bladder -Had previously been on oxybutynin -Toro conciliation remains incomplete DVT prophylaxis -Chemoprophylaxis on hold due to GI bleeding -Continue SCDs CODE STATUS -DNR CCA with no intubation per discussion with family. They do understand that this will be temporarily suspended during surgery and are okay with any intervention that needs to be performed in the perioperative period. They do understand that CODE STATUS will be reinstituted postoperatively. Charges/Coding Visit Charges Inpatient E&M: 10656 [facility] Hosp L3
[2024-08-29 18:17] LABS: Hemoglobin 9.5 g/dL (12.0-15.0)
--- NOTE | 2024-08-29 18:35 | PN.GI_ITS ---
Subjective Subjective I was alerted that patient had a large bloody bowel movement today. We repeated a stat H&H and it showed her hemoglobin went from 10.2-9.5. She is clinically stable at this time with normal blood pressure and heart rate. She is not showing any signs of hemorrhagic shock. H&H's were ordered for every 6 hours. Objective Data Objective Data Vital Signs: Vital Signs Temp Pulse Resp BP Pulse Ox O2 Del Method O2 Flow Rate 97.1 F L 76 15 153/72 H 94 Room Air 3 08/29/24 14:00 08/29/24 14:00 08/29/24 14:00 08/29/24 14:00 08/29/24 14:00 08/29/24 14:00 08/28/24 16:03 Oxygen Flow Rate (L/min) 3 Oxygen Delivery Method Room Air Weight: 176 lb 5.917 oz Body Mass Index (BMI) 28.4 Intake & Output: Intake and Output for Last 24 Hours 08/27/24 08/28/24 08/29/24 23:59 23:59 23:59 Intake Total 2812 / 2812 210 / 450 820 / 820 Output Total 600 / 600 1250 / 1250 Balance 2212 / 2212 210 / 450 -430 / -430 Lab / Micro Data 08/29/24 17:38 08/29/24 06:06 Labs: Laboratory Results - last 24 hr 08/29/24 06:06: WBC 8.0, RBC 3.51 L, Hgb 10.2 L, Hct 31.8 L, MCV 90.6, MCH 29.1, MCHC 32.1, RDW Std Deviation 44.7 H, RDW Coeff of Taina 13.6, Plt Count 295, MPV 9.5, Immature Gran % (Auto) 1.100 H, Neut % (Auto) 84.4 H, Lymph % (Auto) 12.9 L , Dolores % (Auto) 0.8, Eos % (Auto) 0.3, Baso % (Auto) 0.5, Absolute Neuts (auto) 6.7, Absolute Lymphs (auto) 1.03, Nucleated RBC % 0, PT 14.3, INR 1.1, Sodium 141, Potassium 4.1, Chloride 110 H, Carbon Dioxide 23.0, Anion Gap 8, BUN 12, Creatinine 0.86, Estim Creat Clear Calc 50.10, Est GFR (MDRD) Af Amer 81, Est GFR (MDRD) Non-Af 67, BUN/Creatinine Ratio 14.0, Glucose 179 H, Hemoglobin A1c 5.4, Calcium 9.5, Magnesium 1.6, Total Bilirubin 0.50, AST 14 L, ALT 13, Alkaline Phosphatase 75, Total Protein 6.5, Albumin 2.7 L, Globulin 3.8, A lbumin/Globulin Ratio 0.7 L 08/29/24 17:38: Hgb 9.6 L 08/29/24 17:38: Hgb 9.5 L, Hct 29.5 L Micro: Microbiology 08/26/24 14:17 Stool Stool Lactoferrin - Final 08/26/24 14:17 Stool Enteric Bacteriology - Final Radiography Diagnostic Testing: Radiology Impression Chest/Abdomen/Pelvis CTA 08/28/24 16:37 IMPRESSION: Mild gallbladder wall thickening or pericholecystic stranding Colonic diverticulosis. No abdominal aortic aneurysm or dissection.. Atherosclerotic disease. Electronically Signed: Osbaldo Tirado DO at 23:06 EDT Reading Location ID and State: [facility] / [place] Tel [phone], Service support , Physical Exam Narrative . Physical exam General: Alert, Oriented x3, Cooperative. BMI 28.9 kg/m? HEENT: Atraumatic, PERRLA, EOMI, Normocephalic Oral: Oral mucosa dry. No Gingival or Mucosal Lesions/ Ulcerations Neck: Supple, No JVD, Negative Carotid Bruits Chest wall/Lungs: Air entry diminished in bilateral lung bases. No crepitation/rhonchi Cardiovascular: Regular rate, Regular Rhythm, Normal S1, Normal S2, No M/G/R Abdomen: Bowel Sounds Present, Soft, no significant tenderness. Non-Distended : No dysuria. No renal angle tenderness. No suprapubic tenderness. Extremities: No edema, Capillary Refill Less than 3 Seconds Skin: No rashes, No breakdown Musculoskeletal: No acute tenderness to Palpation of Joints or Extremities. Bilateral hip surgery. 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 DTR 2+/4. No acute focal neurological deficit. Psych/Mental Status: Flat affect. Assessment & Plan Assessment/Plan (1) Neoplasm of ascending colon: (2) Abdominal pain: (3) Lower GI bleed: PLAN: Plan 88-year-old with acute on chronic anemia and lower GI bleeding upon presentation. She was identified as having colonic mass along the level of the ascending colon near hepatic flexure junction. She likely is going to need surgery for removal. She had a couple episodes of lower GI bleeding today. Continue to monitor hemoglobin. Transfuse for hematocrit less than 30% if she does continue to bleed then she will need a intervention prior to undergoing her surgery. Please keep patient on a clear liquid diet. Charges/Coding Visit Charges Inpatient E&M: 50340 [facility] Hosp L3
[2024-08-29 20:00] VITALS: BP 149/83; PULSE 67; RESP 18; TEMP 37; O2SAT 99
[2024-08-30] VITALS (17 sets, daily range): BP systolic 105–137; BP diastolic 51–80; PULSE 62–80; RESP 14–18; TEMP 36.1–36.7; O2SAT 92–99
[2024-08-30 00:37] LABS: Hemoglobin 7.7 g/dL (12.0-15.0)
[2024-08-30 06:12] LABS: Absolute Lymphocyte Count 3.39 X10^3/uL (0.83-4.51); Absolute Neutrophil Count 7.2 X10^3/uL (2.0-7.7); Basophil# 0.11 X10^3/uL; Basophil% 0.9 % (0-1); Eosinophil# 0.28 X10^3/uL; Eosinophils% 2.4 % (0-5); Hematocrit 24.4 % (37-47); Hemoglobin 7.8 g/dL (12.0-15.0); Lymphocyte # 3.39 X10^3/ul (0.83-4.51); Lymphocyte % 28.7 % (19-41); Mean Corpuscular Hgb 29.4 pg (27.0-32.0); Mean Corpuscular Volume 92.1 fL (81-99); Mean Platelet Vol. 9.7 fl (6.2-12.0); Monocyte# 0.76 X10^3/uL; Monocyte% 6.4 % (0-10); NRBC Flagged by Analyzer 0 % (0-5); Neutrophil # 7.18 X10^3/uL (2.7-7.7); Neutrophil % 60.7 % (47-70); Platelet Count 248 K/mm3 (150-450); RBC Distribution Width CV 13.9 % (11.6-14.6); RBC Distribution Width SD 46.3 fl (35.1-43.9); Red Blood Count 2.65 M/mm3 (4.2-5.4); White Blood Count 11.8 K/mm3 (4.4-11.0)
[2024-08-30 06:27] LABS: Bedside Glucose 97 mg/dL (74-106)
[2024-08-30 06:48] LABS: Anion Gap 4 (5-15); BUN 22 mg/dL (7-18); BUN/Creat Ratio 26.4 RATIO (10-20); Calcium,Total 8.7 mg/dL (8.5-10.1); Chloride 110 mmol/L (98-107); Creatinine, Serum 0.83 mg/dL (0.55-1.02); EST Glomerular Filtration Rate 69 mL/min (>60); Est Glom Filt Rate - Afr Amer 83 mL/min (>60); Estimated Creatinine Clearance 50.95 ml/min; Glucose 106 mg/dL (74-106); Potassium 3.9 mmol/L (3.5-5.1); Sodium Level 138 mmol/L (136-145)
[2024-08-30] MEDS: Budesonide Respules 0.5 MG/2 ML AMPUL.NEB. INHALATION ×2 (07:09→20:51)
[2024-08-30] MEDS: Albuterol 2.5 MG/3 ML VIAL.NEB. INHALATION ×3 (07:09→20:51)
[2024-08-30] MEDS: Potassium Chloride Oral Tablet 20 MEQ PO ×2 (08:39→16:45)
[2024-08-30] MEDS: Atorvastatin Calcium 10 MG Tablet PO (08:39)
[2024-08-30] MEDS: Pantoprazole Sodium 40 MG in 0.9% Normal Saline (100mL MB+) 100 ML 330 MG IV ×2 (08:42→19:50)
[2024-08-30 09:30] LABS: BNP,B-Type NATRIURETIC PEPTIDE 183.1 pg/mL (0-100)
--- NOTE | 2024-08-30 09:45 | CON.PCM.SX_ITS ---
Assessment & Plan Assessment/Plan (1) Neoplasm of ascending colon: PLAN: The patient had lower GI bleeding and was found on colonoscopy to have a neoplasm in the ascending colon. This was tattooed. I discussed performing a right hemicolectomy on the patient. I discussed this with the patient this morning I discussed it with her son just now. I discussed laparoscopic right hemicolectomy with anastomosis. I discussed all the risks including but not limited to bleeding, infection, injury other organs, need for further surgery, anastomotic leak. Patient understands all the risks and is willing to proceed. Plan for surgery Wednesday morning. I will make her n.p.o. night. She may have clears until then. Transfuse as needed until then. Brian Calvin MD Pager: [facility] [address] [place] [address], [address] [place] [address] Office: HPI Consult Data Date of Consult: 08/30/24 HPI Narrative HPI Narrative: CARMEN LAND, is a 89 F who presents with lower GI bleed. She had a colonoscopy which identified a lesion in the ascending colon. 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 Closed pelvic fracture Pelvic fracture Fall from slipping Essential hypertension Hypertension Normocytic anemia Closed head injury Closed fracture of right hip Fall Adult failure to thrive Weakness Dizziness Fracture of rib Dilatation of aorta Chronic systolic (congestive) heart failure Angina pectoris Subdural hematoma Insomnia Urinary incontinence History of stroke Overactive bladder Allergic rhinitis COPD (chronic obstructive pulmonary disease) Asthma Vitamin D deficiency Edema Urinary tract infection Hallucinations Intellectual disability Encephalopathy Fall Hypokalemia Acute cystitis Acute ischemic stroke Left hip pain Decreased level of consciousness Lethargy Shortness of breath HLD (hyperlipidemia) Gastroesophageal reflux disease Cerebrovascular disease Benign essential HTN Home Medications ?Medication ?Instructions ?Recorded ?Last Taken ?Type atenolol 50 mg tablet 50 mg PO DAILY blood pressure 01/31/19 08/24/24 History atorvastatin 10 mg tablet 10 mg PO DAILY cholesterol 01/31/19 08/24/24 History clopidogrel 75 mg tablet 75 mg PO DAILY heart health 01/31/19 08/24/24 History loratadine 10 mg tablet 10 mg PO DAILY allergies 01/31/19 09/10/21 History omeprazole 20 mg capsule,delayed 20 mg PO DAILY GERD 01/31/19 09/10/21 History release potassium chloride 20 mEq 20 meq PO BID supplement 09/01/19 09/10/21 History tablet,extended release(part/cryst) albuterol sulfate 90 mcg/actuation 1 - 2 puff IH Q4H PRN PRN Wheezing 06/13/20 2 Weeks Ago History aerosol inhaler ~08/27/21 cholecalciferol (vitamin D3) 25 2,000 unit PO DAILY supplement 06/13/20 09/10/21 History mcg (1,000 unit) tablet melatonin 5 mg tablet 5 mg PO QHS PRN Sleep 09/10/21 Unknown History oxybutynin chloride 15 mg 10 mg PO DAILY BLADDER 09/10/21 09/10/21 History tablet,extended release 24 hr meclizine 25 mg tablet 25 mg PO TID PRN dizziness #30 tabs 09/11/21 Unknown Rx furosemide 40 mg tablet 40 mg PO DAILY CHF 12/01/21 08/24/24 History nitroglycerin 0.4 mg sublingual 0.4 mg sublingual Q5-15M PRN chest 12/01/21 Unknown Rx tablet pain #25 tabs amlodipine 2.5 mg tablet 2.5 mg PO DAILY blood pressure 01/25/22 08/24/24 History aspirin 81 mg tablet 81 mg PO DAILY heart health 01/25/22 Unknown History fluticasone 250 mcg-salmeterol 50 1 inh inhalation BID breathing 01/25/22 Unknown History mcg/dose blistr powdr for inhalation acetaminophen 500 mg tablet 1,000 mg PO Q8 Pain 01/29/22 Unknown History tamsulosin 0.4 mg capsule 0.4 mg PO DAILY@1730 30 days #30 02/16/22 Unknown Rx caps oxycodone 5 mg tablet 5 mg PO Q4H PRN PRN Pain Score 06/12/22 Unknown Rx 6-10 3 days #18 tabs doxycycline hyclate 100 mg tablet 100 mg PO BID 03/12/23 Unknown History levofloxacin 500 mg tablet 500 mg PO DAILY #7 tabs 03/12/23 Unknown Rx ondansetron 4 mg disintegrating 4 mg PO Q8H PRN PRN Nausea #10 tabs 03/12/23 Unknown Rx tablet isosorbide mononitrate 60 mg See Rx Instructions .Route 04/13/23 Unknown Rx tablet,extended release 24 hr .COMPLEX #56 tabs losartan 100 mg tablet See Rx Instructions .Route 04/13/23 Unknown Rx .COMPLEX #28 tabs Allergy/AdvReac Type Severity Reaction Status Date / Time adhesive Allergy Rash Verified 07/12/24 13:54 amitriptyline Allergy CONFUSION Verified 07/12/24 13:54 codeine Allergy Hives Verified 07/12/24 13:54 hydrocodone bitartrate (From Allergy Hives Verified 07/12/24 13:54 Vicodin) Iodinated Contrast Media Allergy Hives Verified 07/12/24 13:54 (Iodinated Contrast Media - IV Dye) naproxen Allergy Unknown Verified 07/12/24 13:54 Penicillins Allergy Rash Verified 07/12/24 13:54 phenytoin sodium (From Allergy Hives Verified 07/12/24 13:54 Dilantin) phenytoin sodium extended Allergy Hives Verified 07/12/24 13:54 (From Dilantin) silicone Allergy Hives Verified 07/12/24 13:54 Family History Sister Heart disease Surgical History S/P ORIF (open reduction internal fixation) fracture History of umbilical hernia repair History of hysterectomy History of breast biopsy History of brain surgery S/P ORIF (open reduction internal fixation) fracture (~05/19/15) Social History household members: children and other details: Son. Smoking Status: Never smoker alcohol intake: never substance use type: does not use caffeine: Yes Type: carbonated beverages and coffee ROS Constitutional Constitutional: Denies anorexia, chills, fatigue or fever(s) Eyes Eyes: Denies blurry vision ENT HEENT: Denies abnormal hearing Respiratory/Chest Respiratory/Chest: Denies cough or dyspnea Gastrointestinal Gastrointestinal: Reports rectal bleeding; Denies abdominal pain, constipation, nausea or vomiting Genitourinary Genitourinary: Denies change in urinary stream Musculoskeletal Musculoskeletal: Denies abnormal gait Integumentary Integumentary: Denies jaundice Neurologic Neurologic: Denies abnormal gait Psychiatric Psychiatric: Denies anxiety Endocrine Endocrinology: Denies flushing Physical Exam Const alert and no apparent distress HEENT normocephalic Eyes PERRL Chest inspection of chest normal Resp normal respiratory effort Cardio Rate: regular rate Rhythm: regular rhythm GI normal to inspection, nondistended, normoactive bowel sounds Lab / Micro Data 08/30/24 05:52 08/30/24 05:52 Labs: Laboratory Results - last 24 hr 08/29/24 06:06: Hemoglobin A1c 5.4 08/29/24 17:38: Hgb 9.6 L 08/29/24 17:38: Hgb 9.5 L, Hct 29.5 L 08/30/24 00:14: Hgb 7.7 L 08/30/24 05:52: WBC 11.8 H, RBC 2.65 L, Hgb 7.8 L, Hct 24.4 L, MCV 92.1, MCH 29.4, MCHC 32.0, RDW Std Deviation 46.3 H, RDW Coeff of Taina 13.9, Plt Count 248, MPV 9.7, Immature Gran % (Auto) 0.900, Neut % (Auto) 60.7, Lymph % (Auto) 28.7, [place] % (Auto) 6.4, Eos % (Auto) 2.4, Baso % (Auto) 0.9, Absolute Neuts (auto) 7.2, Absolute Lymphs (auto) 3.39, Nucleated RBC % 0, Sodium 138, Potassium 3.9, Chloride 110 H, Carbon Dioxide 24.0, Anion Gap 4 L, BUN 22 H, Creatinine 0.83, Estim Creat Clear Calc 50.95, Est GFR (MDRD) Af Amer 83, Est GFR (MDRD) Non-Af 69, BUN/Creatinine Ratio 26.4 H, Glucose 106, Calcium 8.7, B-Natriuretic Peptide 183.1 H, Blood Type O POSITIVE, Antibody Screen NEGATIVE, Crossmatch See Detail 08/30/24 06:08: POC Glucose 97
[2024-08-30] MEDS: Furosemide 40 MG/4 ML Vial IV ×2 (10:09→16:44)
--- NOTE | 2024-08-30 10:35 | RAD_ITS ---
INDICATION: new hypoxia EXAMINATION/TECHNIQUE: X-RAY - XR Chest 1 View COMPARISON: Prior study dated: 08/28/2024. FINDINGS: LINES/DEVICES: None. LUNGS: Right basilar opacity likely due to elevation of the right hemidiaphragm and mild atelectatic changes. No focal infiltrate otherwise is seen. No definite pleural effusions. MEDIASTINUM AND CARDIOVASCULAR STRUCTURES: Normal cardiac silhouette. Atherosclerotic calcifications and tortuosity of the thoracic aorta. BONES AND SOFT TISSUES: No demonstrated acute osseous changes. RAD/Chest 1 View (Portable) IMPRESSION: Elevation of the right hemidiaphragm and atelectatic changes in the right lung base. Electronically Signed: Pan Crane MD at 10:57 EDT ,
[2024-08-30] MEDS: LORazepam 0.5 MG Tablet 0.25 MG PO (11:10)
[2024-08-30 11:38] LABS: Hemoglobin 8.9 g/dL (12.0-15.0)
[2024-08-30 11:52] LABS: Bedside Glucose 146 mg/dL (74-106)
[2024-08-30] MEDS: Menthol/Lanolin/Calamine/Znox 113 GM Tube 1 APPLIC TOPICAL ×2 (13:27→19:51)
[2024-08-30] MEDS: Acetaminophen 325 MG Tablet 650 MG PO (14:10)
[2024-08-30 16:21] LABS: Bedside Glucose 142 mg/dL (74-106)
[2024-08-30] MEDS: Tamsulosin HCl 0.4 MG Capsule PO (16:45)
--- NOTE | 2024-08-30 16:49 | PN.HOSP_ITS ---
Reason for Visit Reason for Visit: Rectal bleeding Subjective Subjective Patient states she has some dizziness. It sounds like it is truly vertigo. She states she has this at home sometimes. It does appear she has been on meclizine previously. She has had several bloody and clot filled bowel movements through the night and hemoglobin is dropping so transfusion is in process. Objective Data Objective Data Vital Signs: Vital Signs Temp Pulse Resp BP Pulse Ox O2 Del Method O2 Flow Rate 97.0 F L 71 18 137/66 H 96 Nasal Cannula 2 08/30/24 16:30 08/30/24 16:30 08/30/24 16:30 08/30/24 16:30 08/30/24 16:30 08/30/24 16:30 08/30/24 16:30 Oxygen Flow Rate (L/min) 2 Oxygen Delivery Method Nasal Cannula Weight: 80 kg Body Mass Index (BMI) 28.4 Intake & Output: Intake and Output for Last 24 Hours 08/28/24 08/29/24 08/30/24 23:59 23:59 23:59 Intake Total 210 / 450 930 / 930 1240 / 1240 Output Total 1250 / 1250 400 / 400 Balance 210 / 450 -320 / -320 840 / 840 Lab / Micro Data 08/30/24 11:28 08/30/24 05:52 Labs: Laboratory Results - last 24 hr 08/29/24 17:38: Hgb 9.6 L 08/29/24 17:38: Hgb 9.5 L, Hct 29.5 L 08/30/24 00:14: Hgb 7.7 L 08/30/24 05:52: WBC 11.8 H, RBC 2.65 L, Hgb 7.8 L, Hct 24.4 L, MCV 92.1, MCH 29.4, MCHC 32.0, RDW Std Deviation 46.3 H, RDW Coeff of Taina 13.9, Plt Count 248, MPV 9.7, Immature Gran % (Auto) 0.900, Neut % (Auto) 60.7, Lymph % (Auto) 28.7, [place] % (Auto) 6.4, Eos % (Auto) 2.4, Baso % (Auto) 0.9, Absolute Neuts (auto) 7.2, Absolute Lymphs (auto) 3.39, Nucleated RBC % 0, Sodium 138, Potassium 3.9, Chloride 110 H, Carbon Dioxide 24.0, Anion Gap 4 L, BUN 22 H, Creatinine 0.83, Estim Creat Clear Calc 50.95, Est GFR (MDRD) Af Amer 83, Est GFR (MDRD) Non-Af 69, BUN/Creatinine Ratio 26.4 H, Glucose 106, Calcium 8.7, B-Natriuretic Peptide 183.1 H, Blood Type O POSITIVE, Antibody Screen NEGATIVE, Crossmatch See Detail 08/30/24 06:08: POC Glucose 97 08/30/24 11:06: POC Glucose 146 H 08/30/24 11:28: Hgb 8.9 L 08/30/24 16:03: POC Glucose 142 H Micro: Microbiology 08/26/24 14:17 Stool Stool Lactoferrin - Final 08/26/24 14:17 Stool Enteric Bacteriology - Final Radiography Diagnostic Testing: Radiology Impression Chest X-Ray 08/30/24 10:35 IMPRESSION: Elevation of the right hemidiaphragm and atelectatic changes in the right lung base. Electronically Signed: Pan Crane MD at 10:57 EDT , Physical Exam Const alert, oriented x3, no apparent distress and well nourished; Negative for average body habitus Constitutional Narrative: Overweight, elderly, white female, lying in bed, nursing and nursing aides at bedside getting her cleaned up, appears comfortable, nontoxic HEENT head/scalp atraumatic and moist oral mucous membranes Head and Scalp: normocephalic Eyes PERRL and EOMs intact bilaterally; Negative for conjunctivae normal Eyes Narrative: Bilateral conjunctiva pallor Neck no lymphadenopathy and supple Neck Narrative: Trachea midline Resp normal respiratory effort, no retractions, no use of accessory muscles and No clear to auscultation bilaterally Resp Narrative: No tachypnea but patient is now on oxygen and his crackles at the bases bilaterally Auscultation: crackles; Negative for rales, rhonchi or wheezes Cardio regular rate, regular rhythm, S1 normal heart sound, S2 normal heart sound, no murmurs, no rub, no gallops and no clicks GI normal to inspection, nondistended, normoactive bowel sounds, soft to palpation and non-tender GI Narrative: Mild tenderness in right lower quadrant Extremity no clubbing, cyanosis or edema Extremity Narrative: Pedal pulses are 2+, radial pulses are 2+, midline left upper extremity is clean dry and intact Skin skin turgor normal, no jaundice, no petechiae and no mottling Skin Narrative: Skin is pale Neuro oriented x3, moves all extremities and no focal motor deficits Neuro Narrative: Generalized weakness noted, patient does need some assistance with bed mobility Speech: speech normal Psych affect normal Psych Narrative: Eye contact is good and patient interacts appropriately Assessment & Plan Assessment/Plan (1) Abdominal pain: (2) Lower GI bleed: (3) Neoplasm of ascending colon: PLAN: Plan Lower GI bleed -Colonoscopy done today and patient was found to have a right ascending colon tumor that is suspicious for malignancy -Biopsy shows large villous adenoma on the periphery of the specimen however could still be malignancy underneath -CEA is pending -CT chest abdomen pelvis was unremarkable for any metastatic disease -Will continue to hold Plavix for now -Will continue to transfuse as needed based on hemoglobin-patient remains hemodynamically stable -General Surgery is evaluated the patient and plan is for the OR on 09/01/2024 Acute on chronic anemia -Baseline hemoglobin appears to run between 11 and 12 -Patient received 1 unit packed red blood cells on 08/27/2024 for hemoglobin of 8.2 -With ongoing bleeding we will need to monitor closely--> transfuse 2 units packed red blood cells now -Will repeat hemoglobin after transfusion and if stable recheck in 8 hours Acute hypoxia -Chest x-ray shows maybe some mild volume overloaded -BNP is elevated -Start IV diuretics -Was requiring 5 L nasal cannula earlier this morning but we have been able to wean her to 2 L with diuresis Vertigo -This is a chronic issue for the patient -Restart home meclizine Hypokalemia - resolved Chronic HFpEF/essential hypertension/hyperlipidemia -Last echo was from 2021 reported EF of 65% with normal systolic function, 1-2+ MR, trivial TR, mild AI, mild PI and a mildly dilated aortic root with moderate left atrial enlargement -IV diuretics initiated due to the above -Awaiting med reconciliation to be verified and will restart medications accordingly -Continue home atenolol -Continue home amlodipine History of stroke -Hold Plavix due to the above -Continue secondary prevention Bilateral carotid artery stenosis -Less than 50% -Outpatient follow-up Hyperglycemia - resolved -AM fasting blood sugar was 106 GERD -Patient previously on omeprazole -Has not yet been verified -If verified will reinitiate Overactive Bladder -Had previously been on oxybutynin -Toro conciliation remains incomplete DVT prophylaxis -Chemoprophylaxis on hold due to GI bleeding -Continue SCDs CODE STATUS -DNR CCA with no intubation per discussion with family. They do understand that this will be temporarily suspended during surgery and are okay with any intervention that needs to be performed in the perioperative period. They do understand that CODE STATUS will be reinstituted postoperatively. Charges/Coding Visit Charges Inpatient E&M: 15276 [facility] Hosp L3
--- NOTE | 2024-08-30 18:53 | PN.GI_ITS ---
Subjective Subjective Patient continues to have bloody bowel movements. I did call her son and give him an update. Objective Data Objective Data Vital Signs: Vital Signs Temp Pulse Resp BP Pulse Ox O2 Del Method O2 Flow Rate 97.0 F L 71 18 137/66 H 96 Nasal Cannula 2 08/30/24 16:30 08/30/24 16:30 08/30/24 16:30 08/30/24 16:30 08/30/24 16:30 08/30/24 16:30 08/30/24 16:30 Oxygen Flow Rate (L/min) 2 Oxygen Delivery Method Nasal Cannula Weight: 176 lb 5.917 oz Body Mass Index (BMI) 28.4 Intake & Output: Intake and Output for Last 24 Hours 08/28/24 08/29/24 08/30/24 23:59 23:59 23:59 Intake Total 210 / 450 930 / 930 1640 / 1640 Output Total 1250 / 1250 1100 / 1100 Balance 210 / 450 -320 / -320 540 / 540 Lab / Micro Data 08/30/24 11:28 08/30/24 05:52 Labs: Laboratory Results - last 24 hr 08/30/24 00:14: Hgb 7.7 L 08/30/24 05:52: WBC 11.8 H, RBC 2.65 L, Hgb 7.8 L, Hct 24.4 L, MCV 92.1, MCH 29.4, MCHC 32.0, RDW Std Deviation 46.3 H, RDW Coeff of Taina 13.9, Plt Count 248, MPV 9.7, Immature Gran % (Auto) 0.900, Neut % (Auto) 60.7, Lymph % (Auto) 28.7, [place] % (Auto) 6.4, Eos % (Auto) 2.4, Baso % (Auto) 0.9, Absolute Neuts (auto) 7.2, Absolute Lymphs (auto) 3.39, Nucleated RBC % 0, Sodium 138, Potassium 3.9, Chloride 110 H, Carbon Dioxide 24.0, Anion Gap 4 L, BUN 22 H, Creatinine 0.83, Estim Creat Clear Calc 50.95, Est GFR (MDRD) Af Amer 83, Est GFR (MDRD) Non-Af 69, BUN/Creatinine Ratio 26.4 H, Glucose 106, Calcium 8.7, B-Natriuretic Peptide 183.1 H, Blood Type O POSITIVE, Antibody Screen NEGATIVE, Crossmatch See Detail 08/30/24 06:08: POC Glucose 97 08/30/24 11:06: POC Glucose 146 H 08/30/24 11:28: Hgb 8.9 L 08/30/24 16:03: POC Glucose 142 H Micro: Microbiology 08/26/24 14:17 Stool Stool Lactoferrin - Final 08/26/24 14:17 Stool Enteric Bacteriology - Final Radiography Diagnostic Testing: Radiology Impression Chest X-Ray 08/30/24 10:35 IMPRESSION: Elevation of the right hemidiaphragm and atelectatic changes in the right lung base. Electronically Signed: Pan Crane MD at 10:57 EDT , Physical Exam Const alert and no apparent distress HEENT normocephalic Eyes PERRL Chest inspection of chest normal Resp normal respiratory effort Cardio Rate: regular rate Rhythm: regular rhythm GI normal to inspection, nondistended, normoactive bowel sounds Assessment & Plan Assessment/Plan (1) Neoplasm of ascending colon: (2) Abdominal pain: (3) Lower GI bleed: PLAN: Plan 88-year-old with acute on chronic anemia and lower GI bleeding upon presentation. She was identified as having colonic mass along the level of the ascending colon near hepatic flexure junction. She likely is going to need surgery for removal. She had a couple episodes of lower GI bleeding today. Continue to monitor hemoglobin. Transfuse for hematocrit less than 30% if she does continue to bleed then she will need a intervention prior to undergoing her surgery. Please keep patient on a clear liquid diet. 08/30/2024-patient is scheduled to have bowel surgery on 09/01/2024. The pathology from the large colonic mass came back villous adenoma. I suspect that there is some malignancy in the very large polyp. I explained to patient's son that surgical removal is the safest option at this time due to the very large size and flatness of the polyp. Charges/Coding Visit Charges Inpatient E&M: 15525 [facility]s Hosp L3
[2024-08-30 20:18] LABS: Hemoglobin 10.5 g/dL (12.0-15.0)
[2024-08-30 21:50] LABS: Hematocrit 31.5 % (37-47); Hemoglobin 10.6 g/dL (12.0-15.0)
[2024-08-30 23:13] LABS: Bedside Glucose 115 mg/dL (74-106)
[2024-08-31] VITALS (16 sets, daily range): BP systolic 103–152; BP diastolic 59–80; PULSE 72–119; RESP 12–29; TEMP 36.2–36.8; O2SAT 86–98; BMI 29.1
[2024-08-31 01:22] LABS: Hemoglobin 10.2 g/dL (12.0-15.0)
[2024-08-31] MEDS: Menthol/Lanolin/Calamine/Znox 113 GM Tube 1 APPLIC TOPICAL ×3 (03:00→20:29)
[2024-08-31 06:02] LABS: Absolute Lymphocyte Count 2.94 X10^3/uL (0.83-4.51); Absolute Neutrophil Count 6.5 X10^3/uL (2.0-7.7); Basophil# 0.14 X10^3/uL; Basophil% 1.3 % (0-1); Eosinophil# 0.47 X10^3/uL; Eosinophils% 4.4 % (0-5); Hematocrit 29.5 % (37-47); Hemoglobin 9.8 g/dL (12.0-15.0); Lymphocyte # 2.94 X10^3/ul (0.83-4.51); Lymphocyte % 27.4 % (19-41); Mean Corp Hgb Conc 33.2 g/dL (32-36); Mean Corpuscular Hgb 29.5 pg (27.0-32.0); Mean Corpuscular Volume 88.9 fL (81-99); Mean Platelet Vol. 9.7 fl (6.2-12.0); Monocyte# 0.64 X10^3/uL; NRBC Flagged by Analyzer 0 % (0-5); Neutrophil # 6.48 X10^3/uL (2.7-7.7); Neutrophil % 60.2 % (47-70); Platelet Count 233 K/mm3 (150-450); RBC Distribution Width CV 13.8 % (11.6-14.6); RBC Distribution Width SD 44.7 fl (35.1-43.9); Red Blood Count 3.32 M/mm3 (4.2-5.4); White Blood Count 10.7 K/mm3 (4.4-11.0)
[2024-08-31 06:23] LABS: Anion Gap 7 (5-15); BUN 21 mg/dL (7-18); BUN/Creat Ratio 21.9 RATIO (10-20); Calcium,Total 8.7 mg/dL (8.5-10.1); Chloride 106 mmol/L (98-107); Creatinine, Serum 0.96 mg/dL (0.55-1.02); EST Glomerular Filtration Rate 58 mL/min (>60); Est Glom Filt Rate - Afr Amer 71 mL/min (>60); Estimated Creatinine Clearance 44.65 ml/min; Glucose 99 mg/dL (74-106); Potassium 3.6 mmol/L (3.5-5.1); Sodium Level 138 mmol/L (136-145)
[2024-08-31] MEDS: Budesonide Respules 0.5 MG/2 ML AMPUL.NEB. INHALATION ×2 (07:00→19:59)
[2024-08-31] MEDS: Albuterol 2.5 MG/3 ML VIAL.NEB. INHALATION ×2 (07:00→19:59)
[2024-08-31 07:19] LABS: Bedside Glucose 86 mg/dL (74-106)
[2024-08-31 08:13] LABS: Carcinoembryonic Antigen 2.1 ng/mL (0.0-4.7)
[2024-08-31 09:06] LABS: Hemoglobin 10.3 g/dL (12.0-15.0)
[2024-08-31] MEDS: Potassium Chloride Oral Tablet 20 MEQ PO ×2 (09:17→18:21)
[2024-08-31] MEDS: Furosemide 40 MG/4 ML Vial IV (09:17)
[2024-08-31] MEDS: Pantoprazole Sodium 40 MG in 0.9% Normal Saline (100mL MB+) 100 ML 330 MG IV ×2 (09:17→20:30)
[2024-08-31] MEDS: Atorvastatin Calcium 10 MG Tablet PO (09:18)
--- NOTE | 2024-08-31 09:22 | CT_ITS ---
STUDY: CTA CHEST REASON FOR EXAM: Female, 89 years old. Hypoxia-new RADIATION DOSAGE (If Supplied By Facility): CTDIvol = ( 20.51 ) mGy, DLP = ( 437.9 ) mGycm TECHNIQUE: The examination was performed with the intravenous administration of IV 75mL Isovue-370. Post-processing of the angiographic images was performed, with multiplanar reformation and 3D reconstruction. Individualized dose optimization techniques were used for this CT. COMPARISON: Comparison is made with prior study dated August 28, 2024. FINDINGS: Filling defects are seen in the branches of the right lower lobe pulmonary artery compatible with pulmonary embolism. There is atherosclerotic calcification of the aortic arch with tortuosity. There is no demonstrated aortic dissection. There are calcifications of the coronary arteries. Cardiomegaly. Normal mediastinum. Normal hilar regions. Normal visualized trachea and bronchi. The lungs are well expanded. Stable scarring in the lower lobes more prominent on the left lung base with evidence of bronchiectasis. Normal pleura. Normal chest wall structures. There are degenerative changes of thoracic spine. Normal visualized upper abdomen. CT/CTA Chest W/WO Contrast IMPRESSION: Pulmonary emboli seen in branches of the right and left lower lobe pulmonary arterial branches. Scarring at both lung bases more prominent at the left lung base. Electronically Signed: Artie Chester MD at 13:52 EDT ,
--- NOTE | 2024-08-31 09:37 | PN.SURG_ITS ---
Subjective Subjective Patient does not report any further bleeding overnight. She denies nausea or vomiting. She says she is not feeling well. She says she just feels rundown and she does not feel well Objective Data Objective Data Vital Signs: Vital Signs Temp Pulse Resp BP Pulse Ox O2 Del Method O2 Flow Rate 97.1 F L 87 18 115/60 94 Nasal Cannula 6 08/31/24 09:11 08/31/24 09:11 08/31/24 09:11 08/31/24 09:11 08/31/24 09:11 08/31/24 09:11 08/31/24 09:11 Oxygen Flow Rate (L/min) 6 Oxygen Delivery Method Nasal Cannula Weight: 181 lb 7.047 oz Body Mass Index (BMI) 29.1 Intake & Output: Intake and Output for Last 24 Hours 08/29/24 08/30/24 08/31/24 23:59 23:59 23:59 Intake Total 930 / 930 1750 / 1870 120 / 120 Output Total 1250 / 1250 1100 / 1100 450 / 450 Balance -320 / -320 650 / 770 -330 / -330 Lab / Micro Data 08/31/24 08:56 08/31/24 05:32 Labs: Laboratory Results - last 24 hr 08/29/24 06:06: Carcinoembryonic Ag 2.1 08/30/24 05:52: Crossmatch See Detail 08/30/24 11:06: POC Glucose 146 H 08/30/24 11:28: Hgb 8.9 L 08/30/24 16:03: POC Glucose 142 H 08/30/24 20:10: Hgb 10.6 L 08/30/24 20:10: Hgb 10.5 L, Hct 31.5 L 08/30/24 22:37: POC Glucose 115 H 08/31/24 01:10: Hgb 10.2 L 08/31/24 05:32: WBC 10.7, RBC 3.32 L, Hgb 9.8 L, Hct 29.5 L, MCV 88.9, MCH 29.5, MCHC 33.2, RDW Std Deviation 44.7 H, RDW Coeff of Taina 13.8, Plt Count 233, MPV 9.7, Immature Gran % (Auto) 0.700, Neut % (Auto) 60.2, Lymph % (Auto) 27.4, [place] % (Auto) 6.0, Eos % (Auto) 4.4, Baso % (Auto) 1.3 H, Absolute Neuts (auto) 6.5, Absolute Lymphs (auto) 2.94, Nucleated RBC % 0, Sodium 138, Potassium 3.6, Chloride 106, Carbon Dioxide 25.0, Anion Gap 7, BUN 21 H, Creatinine 0.96, Estim Creat Clear Calc 44.65, Est GFR (MDRD) Af Amer 71, Est GFR (MDRD) Non-Af 58 L, B UN/Creatinine Ratio 21.9 H, Glucose 99, Calcium 8.7 08/31/24 07:01: POC Glucose 86 08/31/24 08:56: Hgb 10.3 L Micro: Microbiology 08/26/24 14:17 Stool Stool Lactoferrin - Final 08/26/24 14:17 Stool Enteric Bacteriology - Final Radiography Diagnostic Testing: Radiology Impression Chest X-Ray 08/30/24 10:35 IMPRESSION: Elevation of the right hemidiaphragm and atelectatic changes in the right lung base. Electronically Signed: Pan Crane MD at 10:57 EDT , Assessment & Plan Assessment/Plan (1) Neoplasm of ascending colon: PLAN: I plan on taking the patient tomorrow for a laparoscopic right hemicolectomy. I discussed this with her again today and she is in agreement. She says she is feeling very rundown and not feeling very well. I would like to order a COVID test just to be safe. Plan for laparoscopic right hemicolectomy in the morning. I have ordered a p.o. antibiotic bowel prep and she has been on clear liquids for several days. Brian Calvin MD Pager: [facility] [address] [place] [address], [address] [place] [address] Office:
[2024-08-31] MEDS: DiphenhydrAMINE 50 MG/ML Syringe IV (10:46)
[2024-08-31 11:21] LABS: Bedside Glucose 116 mg/dL (74-106)
[2024-08-31 12:17] LABS: Alkaline Phosphatase 58 U/L (45-117)
[2024-08-31] MEDS: metroNIDAZOLE 500 MG Tablet 1000 MG PO (12:29)
[2024-08-31] MEDS: dexAMETHasone 10 MG/ML Vial 6 MG IV (12:30)
[2024-08-31] MEDS: 0.9% Saline Lock 10 ML Syringe IV (12:32)
[2024-08-31] MEDS: Acetaminophen 325 MG Tablet 650 MG PO ×2 (12:34→20:42)
--- NOTE | 2024-08-31 12:56 | PCM.PN.BLA ---
Progress Note Patient came back positive for COVID. I will cancel her surgery for tomorrow. We will see how she does over the weekend and how her symptoms flushed out and I have her tentatively scheduled for Wednesday afternoon. If her COVID is severe or if she requires steroids we will delay longer. Brian Calvin MD Pager: [facility] [address] [place] [address], [address] [place] [address] Office:
[2024-08-31] MEDS: Remdesivir 200 MG in 0.9% Normal Saline (250mL Bag) 210 ML 250 MG IV (13:20)
--- NOTE | 2024-08-31 15:56 | CON.PCM.SX_ITS ---
Assessment & Plan Assessment/Plan (1) Pulmonary embolism: QUALIFIERS: Pulmonary embolism type: multiple subsegmental (without acute cor pulmonale) Qualified Code(s): I26.94 - Multiple subsegmental thrombotic pulmonary emboli without acute cor pulmonale PLAN: -IVC filter HPI Consult Data Date of Consult: 08/31/24 HPI Narrative HPI Narrative: CARMEN LAND, is a 89 F who presents with bleeding colon mass and was found to have PE with hypoxia. Given her colon mass she is unable to be anticoagulated to a filter is felt to be indicated. [facility] Medical History Diverticulitis 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 Closed pelvic fracture Pelvic fracture Fall from slipping Essential hypertension Hypertension Normocytic anemia Closed head injury Closed fracture of right hip Fall Adult failure to thrive Weakness Dizziness Fracture of rib Dilatation of aorta Chronic systolic (congestive) heart failure Angina pectoris Subdural hematoma Insomnia Urinary incontinence History of stroke Overactive bladder Allergic rhinitis COPD (chronic obstructive pulmonary disease) Asthma Vitamin D deficiency Edema Urinary tract infection Hallucinations Intellectual disability Encephalopathy Fall Hypokalemia Acute cystitis Acute ischemic stroke Left hip pain Decreased level of consciousness Lethargy Shortness of breath HLD (hyperlipidemia) Gastroesophageal reflux disease Cerebrovascular disease Benign essential HTN Home Medications ?Medication ?Instructions ?Recorded ?Last Taken ?Type atenolol 50 mg tablet 50 mg PO DAILY blood pressure 01/31/19 08/24/24 History atorvastatin 10 mg tablet 10 mg PO DAILY cholesterol 01/31/19 08/24/24 History clopidogrel 75 mg tablet 75 mg PO DAILY heart health 01/31/19 08/24/24 History loratadine 10 mg tablet 10 mg PO DAILY allergies 01/31/19 09/10/21 History omeprazole 20 mg capsule,delayed 20 mg PO DAILY GERD 01/31/19 09/10/21 History release potassium chloride 20 mEq 20 meq PO BID supplement 09/01/19 09/10/21 History tablet,extended release(part/cryst) albuterol sulfate 90 mcg/actuation 2 puff IH Q4H PRN PRN Wheezing 06/13/20 2 Weeks Ago History aerosol inhaler ~08/27/21 cholecalciferol (vitamin D3) 25 2,000 unit PO DAILY supplement 06/13/20 09/10/21 History mcg (1,000 unit) tablet melatonin 5 mg tablet 5 mg PO QHS PRN Sleep 09/10/21 Unknown History meclizine 25 mg tablet 25 mg PO TID PRN dizziness #30 tabs 09/11/21 Unknown Rx furosemide 40 mg tablet 80 mg PO DAILY CHF 12/01/21 08/24/24 History nitroglycerin 0.4 mg sublingual 0.4 mg sublingual Q5-15M PRN chest 12/01/21 Unknown Rx tablet pain #25 tabs amlodipine 2.5 mg tablet 2.5 mg PO DAILY blood pressure 01/25/22 08/24/24 History fluticasone 250 mcg-salmeterol 50 1 inh inhalation BID breathing 01/25/22 Unknown History mcg/dose blistr powdr for inhalation losartan 100 mg tablet See Rx Instructions .Route 04/13/23 Unknown Rx .COMPLEX blood pressure #28 tabs fluticasone propionate 50 2 spray intranasal DAILY allergies 08/31/24 Unknown History mcg/actuation nasal spray,suspension isosorbide mononitrate 60 mg 60 mg PO DAILY heart 08/31/24 Unknown History tablet,extended release 24 hr loperamide 2 mg capsule 2 mg PO Q6H PRN loose stool 08/31/24 Unknown History (Anti-Diarrheal (loperamide)) oxybutynin chloride 10 mg 10 mg PO DAILY bladder 08/31/24 Unknown History tablet,extended release 24 hr Allergy/AdvReac Type Severity Reaction Status Date / Time adhesive Allergy Rash Verified 07/12/24 13:54 amitriptyline Allergy CONFUSION Verified 07/12/24 13:54 codeine Allergy Hives Verified 07/12/24 13:54 hydrocodone bitartrate (From Allergy Hives Verified 07/12/24 13:54 Vicodin) Iodinated Contrast Media Allergy Hives Verified 07/12/24 13:54 (Iodinated Contrast Media - IV Dye) naproxen Allergy Unknown Verified 07/12/24 13:54 Penicillins Allergy Rash Verified 07/12/24 13:54 phenytoin sodium (From Allergy Hives Verified 07/12/24 13:54 Dilantin) phenytoin sodium extended Allergy Hives Verified 07/12/24 13:54 (From Dilantin) silicone Allergy Hives Verified 07/12/24 13:54 Family History Sister Heart disease Surgical History S/P ORIF (open reduction internal fixation) fracture History of umbilical hernia repair History of hysterectomy History of breast biopsy History of brain surgery S/P ORIF (open reduction internal fixation) fracture (~05/19/15) Social History household members: children and other details: Son. Smoking Status: Never smoker alcohol intake: never substance use type: does not use caffeine: Yes Type: carbonated beverages and coffee ROS Constitutional Constitutional: Denies chills, fever(s), frequent falls, lethargy or weakness Eyes Eyes: Denies blind spots, change in vision or loss of vision ENT HEENT: Denies bleeding gums, hoarseness or sore throat Cardiovascular Cardiovascular: Denies abdominal pain, bluish discoloration of hand/feet, chest pain with activity, claudication, cold extremities, cyanosis, dyspnea on exertion, erythema on extremities, irregular heart rhythm, leg edema, leg ulcers, numbness in extremities or weakness in extremities Respiratory/Chest Respiratory/Chest: Denies cough, excessive phlegm production, shortness of breath at rest, shortness of breath with exertion or wheezing Gastrointestinal Gastrointestinal: Reports change in stool character; Denies anorexia, constipation, diarrhea, melena or rectal bleeding Genitourinary Genitourinary: Denies dysuria or hematuria Musculoskeletal Musculoskeletal: Denies abnormal gait Integumentary Integumentary: Reports other Details: ; Denies erythema, non-healing lesions or wounds Neurologic Neurologic: Denies abnormal speech, focal weakness, headache(s), loss of vision, numbness, paresthesias or sensory deficit Hematologic/Lymphatic Hematologic/Lymphatic: Denies easy bleeding, easy bruising or lymphadenopathy Physical Exam Const alert, oriented x3, no apparent distress and healthy appearing General Appearance: cooperative; Negative for combative or lethargic Orientation / Consciousness: awake Exam Limitations: no limitations HEENT Head and Scalp: normocephalic and atraumatic Eyes EOMs intact bilaterally General Eye: normal appearance of both eyes Neck full ROM and no lymphadenopathy Resp normal respiratory effort and no use of accessory muscles Effort and Inspection: Negative for labored, stridor or audible wheezes Cardio regular rate and regular rhythm Back/Spine Cervical Spine: cervical ROM normal Extremity full ROM, normal capillary refill and no clubbing, cyanosis or edema Skin no rashes or lesions noted and no wounds Neuro oriented x3, CN's II-XII intact bilaterally, no focal motor deficits and no sensory deficits noted Psych thought process normal, cooperative, affect normal, speech normal and activity/motor behavior normal Lab / Micro Data 08/31/24 08:56 08/31/24 05:32 Labs: Laboratory Results - last 24 hr 08/29/24 06:06: Carcinoembryonic Ag 2.1 08/30/24 05:52: Crossmatch See Detail 08/30/24 16:03: POC Glucose 142 H 08/30/24 20:10: Hgb 10.6 L 08/30/24 20:10: Hgb 10.5 L, Hct 31.5 L 08/30/24 22:37: POC Glucose 115 H 08/31/24 01:10: Hgb 10.2 L 08/31/24 05:32: WBC 10.7, RBC 3.32 L, Hgb 9.8 L, Hct 29.5 L, MCV 88.9, MCH 29.5, MCHC 33.2, RDW Std Deviation 44.7 H, RDW Coeff of [place]ain[place] 13.8, Plt Count 233, MPV 9.7, Immature Gran % (Auto) 0.700, Neut % (Auto) 60.2, Lymph % (Auto) 27.4, [place] % (Auto) 6.0, Eos % (Auto) 4.4, Baso % (Auto) 1.3 H, Absolute Neuts (auto) 6.5, Absolute Lymphs (auto) 2.94, Nucleated RBC % 0, Sodium 138, Potassium 3.6, Chloride 106, Carbon Dioxide 25.0, Anion Gap 7, BUN 21 H, Creatinine 0.96, Estim Creat Clear Calc 44.65, Est GFR (MDRD) Af Amer 71, Est GFR (MDRD) Non-Af 58 L, B UN/Creatinine Ratio 21.9 H, Glucose 99, Calcium 8.7, Alkaline Phosphatase 58 08/31/24 07:01: POC Glucose 86 08/31/24 08:56: Hgb 10.3 L 08/31/24 10:55: POC Glucose 116 H Micro: Microbiology 08/31/24 09:50 Mucosa - Nose SARS-CoV-2, Influenza & RSV (PCR) - Final SARS-CoV-2 (COVID 19 PCR) Imaging Radiology Impression Chest CTA 08/31/24 09:22 IMPRESSION: Pulmonary emboli seen in branches of the right and left lower lobe pulmonary arterial branches. Scarring at both lung bases more prominent at the left lung base. Electronically Signed: Artie Chester MD at 13:52 EDT ,
--- NOTE | 2024-08-31 16:37 | PCM.OPRPT ---
Report of Operation Date of Procedure: 08/31/24 Pre-Operative Diagnosis: PE Post-Operative Diagnosis: same Surgery/Procedure Performed:: Insertion IVC filter Surgeon: Yung Vital Type of Anesthesia: Local and Sedation,Conscious Estimated Blood Loss (mL): 2 Description of Procedure: HPI: Patient is an 89-year-old female currently admitted with lower GI bleed and a colon mass. She developed hypoxia and CT scan revealed pulmonary emboli. Given her current GI bleed situation she is not felt to be a candidate for anticoagulation so she is taken now for urgent filter placement. Description of procedure: Upon obtaining form consent and verification correct patient procedure site patient was taken to [facility] where she was positioned prepped and draped in usual sterile fashion. Timeouts performed conscious sedation administered Versed and fentanyl. Skin overlying the right internal jugular vein was anesthetized 1% lidocaine the vessel accessed under ultrasound guidance with a micropuncture needle wire. This exchanged for micropuncture sheath through which a Bentson wire was advanced into the inferior vena cava micropuncture sheath exchanged for a straight flush catheter which was advanced into the inferior vena cava. Digital subtraction venacavogram was then performed revealing patent vena cava with normal caliber and no evidence of thrombus. This was also utilized to the confluence of the iliac veins as well as the renal vein positions. The Bentson wire was then readvanced and the catheter withdrawn. The dilator for the Cook delivery system was then [place] over the Bentson wire dilating the subcutaneous tissue. Next the delivery sheath for the Cook Nahid tulip filter was advanced into position in the inferior vena cava. The filter was then positioned and deployed and completion venacavogram confirmed satisfactory position with no significant tilt. The sheath was then withdrawn and manual pressure held for 5 minutes after satisfactory stasis was noted. The patient then returned to the PCU for bedrest and recovery.
[2024-08-31 17:18] LABS: Hemoglobin 11.1 g/dL (12.0-15.0)
--- NOTE | 2024-08-31 17:38 | PCM.PN.HOSP ---
Reason for Visit Reason for Visit: Rectal bleeding Subjective Subjective Patient states she is not feeling well in general today kind of achy, intermittent cough but denies any shortness of breath. Still complains of some mild dizziness although she states it is better since yesterday. We did restart home meclizine. A COVID test was ordered and found to be positive. I also obtained a CTA of her chest due to the shortness of breath and hypoxia that is been persistent and she was found to have new bilateral PE. Objective Data Objective Data Vital Signs: Vital Signs Temp Pulse Resp BP Pulse Ox O2 Del Method O2 Flow Rate 97.1 F L 87 18 115/60 98 Nasal Cannula 5 08/31/24 09:11 08/31/24 09:11 08/31/24 09:11 08/31/24 09:11 08/31/24 11:00 08/31/24 09:11 08/31/24 11:00 Oxygen Flow Rate (L/min) 5 Oxygen Delivery Method Nasal Cannula Weight: 82.3 kg Body Mass Index (BMI) 29.1 Intake & Output: Intake and Output for Last 24 Hours 08/29/24 08/30/24 08/31/24 23:59 23:59 23:59 Intake Total 930 / 930 1750 / 1870 580 / 580 Output Total 1250 / 1250 1100 / 1100 1350 / 1350 Balance -320 / -320 650 / 770 -770 / -770 Lab / Micro Data 08/31/24 17:10 08/31/24 05:32 Labs: Laboratory Results - last 24 hr 08/29/24 06:06: Carcinoembryonic Ag 2.1 08/30/24 20:10: Hgb 10.6 L 08/30/24 20:10: Hgb 10.5 L, Hct 31.5 L 08/30/24 22:37: POC Glucose 115 H 08/31/24 01:10: Hgb 10.2 L 08/31/24 05:32: WBC 10.7, RBC 3.32 L, Hgb 9.8 L, Hct 29.5 L, MCV 88.9, MCH 29.5, MCHC 33.2, RDW Std Deviation 44.7 H, RDW Coeff of Tain[place] 13.8, Plt Count 233, MPV 9.7, Immature Gran % (Auto) 0.700, Neut % (Auto) 60.2, Lymph % (Auto) 27.4, [place] % (Auto) 6.0, Eos % (Auto) 4.4, Baso % (Auto) 1.3 H, Absolute Neuts (auto) 6.5, Absolute Lymphs (auto) 2.94, Nucleated RBC % 0, Sodium 138, Potassium 3.6, Chloride 106, Carbon Dioxide 25.0, Anion Gap 7, BUN 21 H, Creatinine 0.96, Estim Creat Clear Calc 44.65, Est GFR (MDRD) Af Amer 71, Est GFR (MDRD) Non-Af 58 L, BUN/Creatinine Ratio 21.9 H, Glucose 99, Calcium 8.7, Alkaline Phosphatase 58 08/31/24 07:01: POC Glucose 86 08/31/24 08:56: Hgb 10.3 L 08/31/24 10:55: POC Glucose 116 H 08/31/24 17:10: Hgb 11.1 L Micro: Microbiology 08/31/24 09:50 Mucosa - Nose SARS-CoV-2, Influenza & RSV (PCR) - Final SARS-CoV-2 (COVID 19 PCR) 08/26/24 14:17 Stool Stool Lactoferrin - Final 08/26/24 14:17 Stool Enteric Bacteriology - Final Radiography Diagnostic Testing: Radiology Impression Chest CTA 08/31/24 09:22 IMPRESSION: Pulmonary emboli seen in branches of the right and left lower lobe pulmonary arterial branches. Scarring at both lung bases more prominent at the left lung base. Electronically Signed: Artie Chester MD at 13:52 EDT , Physical Exam Const alert, oriented x3, no apparent distress and well nourished; Negative for average body habitus or healthy appearing Constitutional Narrative: Overweight, elderly, white female, lying in bed, nursing at bedside, appears comfortable but ill, nontoxic HEENT head/scalp atraumatic and moist oral mucous membranes HEENT Narrative: No thrush, Mallampati 3 Eyes PERRL and EOMs intact bilaterally; Negative for conjunctivae normal Eyes Narrative: Bilateral conjunctiva pallor, no scleral icterus Neck no lymphadenopathy and supple Neck Narrative: Trachea midline Resp normal respiratory effort, no retractions, no use of accessory muscles and clear to auscultation bilaterally Resp Narrative: Crackles resolved Auscultation: Negative for crackles, rales, rhonchi or wheezes Cardio regular rate, regular rhythm, S1 normal heart sound, S2 normal heart sound, no murmurs, no rub, no gallops and no clicks GI normal to inspection, nondistended, normoactive bowel sounds, soft to palpation and non-tender Extremity no clubbing, cyanosis or edema Extremity Narrative: Pedal pulses are 2+, radial pulses are 2+, midline left upper extremity is clean dry and intact Skin skin turgor normal, no jaundice, no petechiae and no mottling Skin Narrative: Skin is pale Neuro oriented x3, moves all extremities and no focal motor deficits Neuro Narrative: Generalized weakness noted, patient does need some assistance with bed mobility Speech: speech normal Psych affect normal Psych Narrative: Eye contact is good and patient interacts appropriately Assessment & Plan Assessment/Plan (1) Abdominal pain: (2) Lower GI bleed: (3) Neoplasm of ascending colon: PLAN: Plan Lower GI bleed secondary to bleeding large villous adenoma -Colonoscopy done today and patient was found to have a right ascending colon tumor that is suspicious for malignancy -Biopsy shows large villous adenoma on the periphery of the specimen however could still be malignancy underneath -CEA is only 2.1 -CT chest abdomen pelvis was unremarkable for any metastatic disease -Will continue to hold Plavix for now -Will continue to transfuse as needed based on hemoglobin-patient remains hemodynamically stable -General Surgery is following however patient with newly diagnosed COVID and pulmonary emboli so surgery will be delayed till next week Acute on chronic anemia -Baseline hemoglobin appears to run between 11 and 12 -Patient received 1 unit packed red blood cells on 08/27/2024 for hemoglobin of 8.2 -Bleeding seems to be improved today and hemoglobin up to 11.1 -Repeat CBC in a.m. and monitor closely for any signs of rebleeding Acute hypoxia 2/2 Acute Covid 19 infection and B PE -Suspect her hypoxia is predominantly related to her PE -Stop IV diuretics and will likely restart p.o. tomorrow -Start Decadron 6 mg daily x 10 days--> day 1 of 10 -With hypoxia will utilize remdesivir day 1 of 5 -Serial labs ordered to monitor renal function and kidney function -CTA of the chest shows bilateral lower lobe PEs -Unable to anticoagulate due to GI bleeding -Case discussed with vascular surgery and IVC filter placed today -Was discussed with son prior and consent obtained Vertigo -Improved -Continue home meclizine Chronic HFpEF/essential hypertension/hyperlipidemia -Last echo was from 2021 reported EF of 65% with normal systolic function, 1-2+ MR, trivial TR, mild AI, mild PI and a mildly dilated aortic root with moderate left atrial enlargement -Discontinue IV diuretics and if remains stable will restart home oral diuretics tomorrow -Awaiting med reconciliation to be verified and will restart medications accordingly -Continue home atenolol -Continue home amlodipine History of stroke -Hold Plavix due to the above -Continue secondary prevention Bilateral carotid artery stenosis -Less than 50% -Outpatient follow-up GERD -Restart home PPI Overactive Bladder -Hold home oxybutynin as this is on the beers list and may worsen her lightheadedness and dizziness and increased risk for fall DVT prophylaxis -Chemoprophylaxis on hold due to GI bleeding -Continue SCDs CODE STATUS -DNR CCA with no intubation per discussion with family. They do understand that this will be temporarily suspended during surgery and are okay with any intervention that needs to be performed in the perioperative period. They do understand that CODE STATUS will be reinstituted postoperatively. Son called and updated with regards to acute COVID-19 infection and PE. We did discuss the plans for the COVID with remdesivir and Decadron and with the PE and placement of an IVC filter. Son is aware that surgery will be delayed likely until early next week. All questions answered. Charges/Coding Visit Charges Inpatient E&M: 38621 Subs Hosp L3
[2024-08-31] MEDS: Tamsulosin HCl 0.4 MG Capsule PO (18:21)
[2024-08-31] MEDS: Insulin Lispro 100 UNIT/ML INSULN.PEN SC (18:24)
[2024-08-31 18:47] LABS: Bedside Glucose 208 mg/dL (74-106)
--- NOTE | 2024-08-31 21:40 | PCM.HOSP.N ---
Hospitalist Note I called the patient's son Mr. Hutchins to inform that patient is on 90% FiO2 BiPAP. Earlier she was on Airvo and was desaturating therefore put on BiPAP. She tested positive for COVID. ABG ordered. Patient is on dexamethasone and remdesivir. I explained about the bad prognosis. Patient is DNR CC arrest with no intubation.
[2024-09-01] VITALS (18 sets, daily range): BP systolic 103–137; BP diastolic 52–70; PULSE 64–121; RESP 12–24; TEMP 36.3–37.1; O2SAT 91–100; BMI 29.1
[2024-09-01 00:53] LABS: Allen Test Positive; Base Excess -4 mmol/L (-2 to +2); Bicarbonate 19.6 mmol/L (22-26); Blood Gas Specimen Type ART; Mode Not entered; O2 Delivery Device BiPAP; PEEP 12; PO2 125 mmHG (75-100); SITE R Brach; SO2 99 % (95-99); Total Carbon Dioxide 20 mmol/L; pCO2 27.1 mmHg (35-45); pH 7.47 (7.35-7.45)
--- NOTE | 2024-09-01 03:50 | NURSING ---
Called RT in regards to phone call with Dr. Calabrese. He would like to attempt weaning BiPAP % as patient's O2 sats recovering to high 90s. ABG results
[2024-09-01] MEDS: Menthol/Lanolin/Calamine/Znox 113 GM Tube 1 APPLIC TOPICAL ×3 (04:30→21:58)
[2024-09-01 06:46] LABS: Hematocrit 31.4 % (37-47); Hemoglobin 10.5 g/dL (12.0-15.0); Mean Corp Hgb Conc 33.4 g/dL (32-36); Mean Corpuscular Hgb 29.7 pg (27.0-32.0); Mean Platelet Vol. 9.7 fl (6.2-12.0); Platelet Count 247 K/mm3 (150-450); RBC Distribution Width CV 13.9 % (11.6-14.6); RBC Distribution Width SD 45.1 fl (35.1-43.9); Red Blood Count 3.53 M/mm3 (4.2-5.4); White Blood Count 12.3 K/mm3 (4.4-11.0)
[2024-09-01 06:55] LABS: Bedside Glucose 169 mg/dL (74-106)
[2024-09-01 07:14] LABS: ALB/GLOB Ratio 0.7 RATIO (0.9-2.4); AST(SGOT) 13 U/L (15-37); Alanine Aminotransfer ALT/SGPT 15 U/L (13-56); Albumin, Serum 2.7 g/dL (3.2-5.0); Alkaline Phosphatase 68 U/L (45-117); Anion Gap 9 (5-15); BUN 30 mg/dL (7-18); BUN/Creat Ratio 26.1 RATIO (10-20); Calcium,Total 9.4 mg/dL (8.5-10.1); Chloride 109 mmol/L (98-107); Creatinine, Serum 1.15 mg/dL (0.55-1.02); EST Glomerular Filtration Rate 47 mL/min (>60); Est Glom Filt Rate - Afr Amer 57 mL/min (>60); Estimated Creatinine Clearance 37.25 ml/min; Globulin 3.7 g/dL (2.2-4.2); Glucose 162 mg/dL (74-106); Potassium 4.2 mmol/L (3.5-5.1); Protein, Total 6.4 g/dL (6.4-8.2); Sodium Level 138 mmol/L (136-145)
--- NOTE | 2024-09-01 07:58 | EX.PCM.CONCC ---
Assessment & Plan Assessment/Plan (1) Pulmonary embolism: QUALIFIERS: Pulmonary embolism type: multiple subsegmental (without acute cor pulmonale) Qualified Code(s): I26.94 - Multiple subsegmental thrombotic pulmonary emboli without acute cor pulmonale PLAN: Plan RECOMMENDATIONS: 1. Continue supplemental oxygen to maintain saturations at or above 90%. 2. Continue as needed bronchodilator therapy. 3. Continue remdesivir and Decadron. 4. Gentle diuresis as tolerated by hemodynamics and renal function. 5. Encourage incentive spirometer use and mobilize patient as tolerated. IMPRESSIONS: 1. Acute hypoxemic respiratory failure Likely multifactorial in etiology with COVID-19 pneumonia, bilateral PE and heart failure with preserved ejection fraction contributing. The patient is on appropriate medical therapy regarding her COVID-19, including remdesivir and Decadron. While she does have a reported history of COPD, the patient denied ever having been a smoker. There are no significant lung parenchymal issues identified on CT imaging. Given that the patient was unable to be systemically anticoagulated, she did have an IVC filter placed on August 31. Recommend continue bronchodilator therapy as ordered and considering attempts at diuresis as tolerated by hemodynamics and renal function. Otherwise, I have no additional new recommendations from a pulmonary perspective. 2. 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 Continue to monitor H&H for now and transfuse if hemoglobin drops below 7 g/dL. 3. History of CVA/carotid artery stenosis/GERD Complicates care, management, recovery and prognosis. Continue home medications as indicated. This note was generated with [employer] dictation software. It may contain incorrect words, spelling, and punctuation that were not noted in checking the note before signing. HPI Consult Data Date of Consult: 09/01/24 HPI Narrative Reason for Consultation: Respiratory failure with hypoxemia HPI Narrative: The patient is an 89-year-old female, with a history as outlined below, who presented on August due to rectal bleeding. The patient is on Plavix for an apparent history of CVA and is a medical history is significant for congestive heart failure and COPD. The patient was noted to be anemic at presentation with CT imaging of the abdomen and pelvis demonstrated sigmoid diverticulosis without evidence of diverticulitis and findings suggestive of small gallstones or sludge along the dependent portion of the gallbladder lumen. The patient was ultimately seen in evaluation by gastroenterology, who completed a colonoscopy on August 28, which demonstrated a tumor in the ascending colon, which was biopsied. 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 General surgery was subsequently consulted and recommend performing a right hemicolectomy. Although there is documentation in the patient's medical history regarding a diagnosis of COPD, the patient reported to me that she has never been a smoker. Despite this, it does appear that she has been maintained on a maintenance inhaler regimen on an outpatient basis. She does report that she utilizes supplemental oxygen nightly, but denies ever having been diagnosed with sleep apnea. The patient's hospital course has been complicated by periods of waxing and waning hypoxemia. Accordingly, additional workup was completed, which revealed that the patient was positive for COVID-19 on August 31. CTA chest was completed and demonstrated bilateral pulmonary emboli. Given the patient's bleeding related complications, she was not felt to be a candidate for systemic anticoagulation. Therefore, vascular surgery was consulted, with IVC filter placed on August 31. The patient is currently documented to be overall net +3.7 L for the hospitalization. She has a mildly elevated white blood cell count of 12,000 this morning with a stable hemoglobin at 10.5 g/dL. ABG obtained this morning demonstrated a pH of 7.47 with a pCO2 of 27 and pO2 of 125. Chemistry profile was notable for a mildly increased creatinine at 1.15. The patient is currently being maintained on Decadron and remdesivir. [facility] Medical History Diverticulitis 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 Closed pelvic fracture Pelvic fracture Fall from slipping Essential hypertension Hypertension Normocytic anemia Closed head injury Closed fracture of right hip Fall Adult failure to thrive Weakness Dizziness Fracture of rib Dilatation of aorta Chronic systolic (congestive) heart failure Angina pectoris Subdural hematoma Insomnia Urinary incontinence History of stroke Overactive bladder Allergic rhinitis COPD (chronic obstructive pulmonary disease) Asthma Vitamin D deficiency Edema Urinary tract infection Hallucinations Intellectual disability Encephalopathy Fall Hypokalemia Acute cystitis Acute ischemic stroke Left hip pain Decreased level of consciousness Lethargy Shortness of breath HLD (hyperlipidemia) Gastroesophageal reflux disease Cerebrovascular disease Benign essential HTN Home Medications ?Medication ?Instructions ?Recorded ?Last Taken ?Type atenolol 50 mg tablet 50 mg PO DAILY blood pressure 01/31/19 08/24/24 History atorvastatin 10 mg tablet 10 mg PO DAILY cholesterol 01/31/19 08/24/24 History clopidogrel 75 mg tablet 75 mg PO DAILY heart health 01/31/19 08/24/24 History loratadine 10 mg tablet 10 mg PO DAILY allergies 01/31/19 09/10/21 History omeprazole 20 mg capsule,delayed 20 mg PO DAILY GERD 01/31/19 09/10/21 History release potassium chloride 20 mEq 20 meq PO BID supplement 09/01/19 09/10/21 History tablet,extended release(part/cryst) albuterol sulfate 90 mcg/actuation 2 puff IH Q4H PRN PRN Wheezing 06/13/20 2 Weeks Ago History aerosol inhaler ~08/27/21 cholecalciferol (vitamin D3) 25 2,000 unit PO DAILY supplement 06/13/20 09/10/21 History mcg (1,000 unit) tablet melatonin 5 mg tablet 5 mg PO QHS PRN Sleep 09/10/21 Unknown History meclizine 25 mg tablet 25 mg PO TID PRN dizziness #30 tabs 09/11/21 Unknown Rx furosemide 40 mg tablet 80 mg PO DAILY CHF 12/01/21 08/24/24 History nitroglycerin 0.4 mg sublingual 0.4 mg sublingual Q5-15M PRN chest 12/01/21 Unknown Rx tablet pain #25 tabs amlodipine 2.5 mg tablet 2.5 mg PO DAILY blood pressure 01/25/22 08/24/24 History fluticasone 250 mcg-salmeterol 50 1 inh inhalation BID breathing 01/25/22 Unknown History mcg/dose blistr powdr for inhalation losartan 100 mg tablet See Rx Instructions .Route 04/13/23 Unknown Rx .COMPLEX blood pressure #28 tabs fluticasone propionate 50 2 spray intranasal DAILY allergies 08/31/24 Unknown History mcg/actuation nasal spray,suspension isosorbide mononitrate 60 mg 60 mg PO DAILY heart 08/31/24 Unknown History tablet,extended release 24 hr loperamide 2 mg capsule 2 mg PO Q6H PRN loose stool 08/31/24 Unknown History (Anti-Diarrheal (loperamide)) oxybutynin chloride 10 mg 10 mg PO DAILY bladder 08/31/24 Unknown History tablet,extended release 24 hr Allergy/AdvReac Type Severity Reaction Status Date / Time adhesive Allergy Rash Verified 07/12/24 13:54 amitriptyline Allergy CONFUSION Verified 07/12/24 13:54 codeine Allergy Hives Verified 07/12/24 13:54 hydrocodone bitartrate (From Allergy Hives Verified 07/12/24 13:54 Vicodin) Iodinated Contrast Media Allergy Hives Verified 07/12/24 13:54 (Iodinated Contrast Media - IV Dye) naproxen Allergy Unknown Verified 07/12/24 13:54 Penicillins Allergy Rash Verified 07/12/24 13:54 phenytoin sodium (From Allergy Hives Verified 07/12/24 13:54 Dilantin) phenytoin sodium extended Allergy Hives Verified 07/12/24 13:54 (From Dilantin) silicone Allergy Hives Verified 07/12/24 13:54 Family History Sister Heart disease Surgical History S/P ORIF (open reduction internal fixation) fracture History of umbilical hernia repair History of hysterectomy History of breast biopsy History of brain surgery S/P ORIF (open reduction internal fixation) fracture (~05/19/15) Social History household members: children and other details: Son. Smoking Status: Never smoker alcohol intake: never substance use type: does not use caffeine: Yes Type: carbonated beverages and coffee ROS ROS Narrative 10 systems were reviewed with pertinent positives as noted in the HPI above. Physical Exam Const alert and no apparent distress General Appearance: cooperative HEENT normocephalic, head/scalp atraumatic and moist oral mucous membranes Eyes PERRL, EOMs intact bilaterally and conjunctivae normal Neck supple General: trachea midline Chest inspection of chest normal Resp normal respiratory effort Auscultation: diminished lung sounds; Negative for rales, rhonchi or wheezes Cardio regular rate and regular rhythm GI normal to inspection, nondistended, normoactive bowel sounds Extremity no clubbing, cyanosis or edema Skin no rashes or lesions noted Neuro CN's II-XII intact bilaterally, moves all extremities and no focal motor deficits Psych cooperative and affect normal Lab / Micro Data 09/01/24 06:22 09/01/24 06:22 Labs: Laboratory Results - last 24 hr 08/29/24 06:06: Carcinoembryonic Ag 2.1 08/31/24 05:32: Alkaline Phosphatase 58 08/31/24 08:56: Hgb 10.3 L 08/31/24 10:55: POC Glucose 116 H 08/31/24 17:10: Hgb 11.1 L 08/31/24 18:18: POC Glucose 208 H 09/01/24 06:22: WBC 12.3 H, RBC 3.53 L, Hgb 10.5 L, Hct 31.4 L, MCV 89.0, MCH 29.7, MCHC 33.4, RDW Std Deviation 45.1 H, RDW Coeff of Taina 13.9, Plt Count 247, MPV 9.7, Sodium 138, Potassium 4.2, Chloride 109 H, Carbon Dioxide 21.0, Anion Gap 9, BUN 30 H, Creatinine 1.15 H, Estim Creat Clear Calc 37.25, Est GFR (MDRD) Af Amer 57 L, Est GFR (MDRD) Non-Af 47 L, BUN/Creatinine Ratio 26.1 H, Glucose 162 H, Calcium 9.4, Total Bilirubin 0.30, AST 13 L, ALT 15, Alkaline Phosphatase 68, Total Protein 6.4, Albumin 2.7 L, Globulin 3.7, Albumin/Globulin Ratio 0.7 L 09/01/24 06:32: POC Glucose 169 H Micro: Microbiology 08/31/24 09:50 Mucosa - Nose SARS-CoV-2, Influenza & RSV (PCR) - Final SARS-CoV-2 (COVID 19 PCR) ABG Data ABG results: ABG 09/01/24 00:50 Specimen Type ART Sample Site R Brach pH 7.47 H Bicarbonate Actual 19.6 L Total CO2 20 Base Excess -4 L O2 Saturation 99 O2 % 90.0 ABG pCO2 27.1 L ABG pO2 125 H Pérez Test Positive O2 Delivery Device BiPAP Vent Mode Not entered POC PEEP 12 Imaging Radiology Impression Chest CTA 08/31/24 09:22 IMPRESSION: Pulmonary emboli seen in branches of the right and left lower lobe pulmonary arterial branches. Scarring at both lung bases more prominent at the left lung base. Electronically Signed: Artie Chester MD at 13:52 EDT , Charges/Coding Visit Charges Inpatient E&M: 81286 Init Hosp L3
[2024-09-01] MEDS: Insulin Lispro 100 UNIT/ML INSULN.PEN SC ×3 (08:49→16:52)
[2024-09-01] MEDS: dexAMETHasone 10 MG/ML Vial 6 MG IV (08:50)
[2024-09-01] MEDS: 0.9% Saline Lock 10 ML Syringe IV (08:51)
[2024-09-01] MEDS: Loratadine 10 MG Tablet PO (08:52)
[2024-09-01] MEDS: Atorvastatin Calcium 10 MG Tablet PO (08:53)
[2024-09-01] MEDS: Fluticasone 0.05% 1 SPRAY NASAL.SRY 2 SPRAY NASAL (08:53)
[2024-09-01] MEDS: Clindamycin 900 MG/50 ML BAG 75 MG IV (08:54)
[2024-09-01] MEDS: Atenolol 50 MG Tablet PO (09:02)
[2024-09-01 09:23] LABS: Base Excess -1 mmol/L (-2 to +2); Bicarbonate 21.8 mmol/L (22-26); Blood Gas Specimen Type ART; Mode Not entered; O2 Delivery Device airvo; PO2 118 mmHG (75-100); SITE R Brach; SO2 99 % (95-99); Total Carbon Dioxide 23 mmol/L; pCO2 27.9 mmHg (35-45)
[2024-09-01] MEDS: Pantoprazole Sodium 40 MG in 0.9% Normal Saline (100mL MB+) 100 ML 330 MG IV ×2 (11:40→21:58)
[2024-09-01] MEDS: Acetaminophen 325 MG Tablet 650 MG PO (11:45)
[2024-09-01] MEDS: Remdesivir 100 MG in 0.9% Normal Saline (250mL Bag) 230 ML 250 MG IV (12:12)
--- NOTE | 2024-09-01 15:19 | PCM.PN.SRG ---
Subjective Subjective Patient found to have not only COVID but also has pulmonary embolism. Patient without any new issues or complaints. She states that her breathing actually seems improved today versus yesterday. IVC filter placed yesterday. Objective Data Objective Data Vital Signs: Vital Signs Temp Pulse Resp BP Pulse Ox O2 Del Method O2 Flow Rate 98.8 F 64 22 H 118/63 98 Nasal Cannula 2 09/01/24 14:44 09/01/24 14:44 09/01/24 14:44 09/01/24 14:44 09/01/24 14:44 09/01/24 14:44 09/01/24 14:44 FiO2 42 09/01/24 11:39 Oxygen Flow Rate (L/min) 2 Oxygen Delivery Method Nasal Cannula Weight: 181 lb 3.52 oz Body Mass Index (BMI) 29.1 Intake & Output: Intake and Output for Last 24 Hours 08/30/24 08/31/24 09/01/24 23:59 23:59 23:59 Intake Total 1750 / 1870 940 / 940 410 / 410 Output Total 1100 / 1100 2140 / 2140 525 / 525 Balance 650 / 770 -1200 / -1200 -115 / -115 Lab / Micro Data 09/01/24 06:22 09/01/24 06:22 Labs: Laboratory Results - last 24 hr 08/31/24 17:10: Hgb 11.1 L 08/31/24 18:18: POC Glucose 208 H 09/01/24 06:22: WBC 12.3 H, RBC 3.53 L, Hgb 10.5 L, Hct 31.4 L, MCV 89.0, MCH 29.7, MCHC 33.4, RDW Std Deviation 45.1 H, RDW Coeff of Taina 13.9, Plt Count 247, MPV 9.7, Sodium 138, Potassium 4.2, Chloride 109 H, Carbon Dioxide 21.0, Anion Gap 9, BUN 30 H, Creatinine 1.15 H, Estim Creat Clear Calc 37.25, Est GFR (MDRD) Af Amer 57 L, Est GFR (MDRD) Non-Af 47 L, BUN/Creatinine Ratio 26.1 H, Glucose 162 H, Calcium 9.4, Total Bilirubin 0.30, AST 13 L, ALT 15, Alkaline Phosphatase 68, Total Protein 6.4, Albumin 2.7 L, Globulin 3.7, Albumin/Globulin Ratio 0.7 L 09/01/24 06:32: POC Glucose 169 H Micro: Microbiology 08/31/24 09:50 Mucosa - Nose SARS-CoV-2, Influenza & RSV (PCR) - Final SARS-CoV-2 (COVID 19 PCR) 08/26/24 14:17 Stool Stool Lactoferrin - Final 08/26/24 14:17 Stool Enteric Bacteriology - Final ABG Data ABG results: ABG 09/01/24 09/01/24 00:50 09:18 Specimen Type ART ART Sample Site R Brach R Brach pH 7.47 H 7.50 H Bicarbonate Actual 19.6 L 21.8 L Total CO2 20 23 Base Excess -4 L -1 O2 Saturation 99 99 O2 % 90.0 55.0 ABG pCO2 27.1 L 27.9 L ABG pO2 125 H 118 H Pérez Test Positive O2 Delivery Device BiPAP airvo Vent Mode Not entered Not entered POC PEEP 12 Physical Exam Const Constitutional Narrative: She is alert and oriented x 3. No acute distress. Abdomen is soft nontender nondistended. Assessment & Plan Assessment/Plan (1) Neoplasm of ascending colon: PLAN: Plan Patient is a 89-year-old female with a known right colon mass tentatively scheduled for right hemicolectomy during hospitalization as mass seems to be contributing to anemia. Patient has since developed pulmonary issues and was found to not only be COVID-positive but was also diagnosed with pulmonary embolism. Due to the anemia/colon mass and concern for bleeding with anticoagulation, IVC filter was placed yesterday. At the present time we would recommend continued medical management and hopefully her respiratory status will continue to improve thus allowing potential for surgery early next week. Would recommend continuing clear liquid diet and not advancing. Charges/Coding Visit Charges Inpatient E&M: 07634 Subs Hosp L2
--- NOTE | 2024-09-01 15:26 | PCM.PN.HOSP ---
Reason for Visit Reason for Visit: GI bleed Subjective Subjective Patient required placement on BiPAP due to hypoxia overnight. Slowly has been able to be weaned to 2 L today. She denies any sensation of shortness of breath. She still complains of some intermittent vertigo but still states this is her baseline. Plan is to get up to the chair today with therapy. Objective Data Objective Data Vital Signs: Vital Signs Temp Pulse Resp BP Pulse Ox O2 Del Method O2 Flow Rate 98.8 F 64 22 H 118/63 98 Nasal Cannula 2 09/01/24 14:44 09/01/24 14:44 09/01/24 14:44 09/01/24 14:44 09/01/24 14:44 09/01/24 14:45 09/01/24 14:45 FiO2 42 09/01/24 11:39 Oxygen Flow Rate (L/min) 2 Oxygen Delivery Method Nasal Cannula Weight: 82.2 kg Body Mass Index (BMI) 29.1 Intake & Output: Intake and Output for Last 24 Hours 08/30/24 08/31/24 09/01/24 23:59 23:59 23:59 Intake Total 1750 / 1870 940 / 940 410 / 410 Output Total 1100 / 1100 2140 / 2140 525 / 525 Balance 650 / 770 -1200 / -1200 -115 / -115 Lab / Micro Data 09/01/24 06:22 09/01/24 06:22 Labs: Laboratory Results - last 24 hr 08/31/24 17:10: Hgb 11.1 L 08/31/24 18:18: POC Glucose 208 H 09/01/24 06:22: WBC 12.3 H, RBC 3.53 L, Hgb 10.5 L, Hct 31.4 L, MCV 89.0, MCH 29.7, MCHC 33.4, RDW Std Deviation 45.1 H, RDW Coeff of Taina 13.9, Plt Count 247, MPV 9.7, Sodium 138, Potassium 4.2, Chloride 109 H, Carbon Dioxide 21.0, Anion Gap 9, BUN 30 H, Creatinine 1.15 H, Estim Creat Clear Calc 37.25, Est GFR (MDRD) Af Amer 57 L, Est GFR (MDRD) Non-Af 47 L, BUN/Creatinine Ratio 26.1 H, Glucose 162 H, Calcium 9.4, Total Bilirubin 0.30, AST 13 L, ALT 15, Alkaline Phosphatase 68, Total Protein 6.4, Albumin 2.7 L, Globulin 3.7, Albumin/Globulin Ratio 0.7 L 09/01/24 06:32: POC Glucose 169 H Micro: Microbiology 08/31/24 09:50 Mucosa - Nose SARS-CoV-2, Influenza & RSV (PCR) - Final SARS-CoV-2 (COVID 19 PCR) 08/26/24 14:17 Stool Stool Lactoferrin - Final 08/26/24 14:17 Stool Enteric Bacteriology - Final ABG Data ABG results: ABG 09/01/24 09/01/24 00:50 09:18 Specimen Type ART ART Sample Site R Brach R Brach pH 7.47 H 7.50 H Bicarbonate Actual 19.6 L 21.8 L Total CO2 20 23 Base Excess -4 L -1 O2 Saturation 99 99 O2 % 90.0 55.0 ABG pCO2 27.1 L 27.9 L ABG pO2 125 H 118 H Pérez Test Positive O2 Delivery Device BiPAP airvo Vent Mode Not entered Not entered POC PEEP 12 Physical Exam Const alert, oriented x3, no apparent distress and well nourished; Negative for average body habitus or healthy appearing Constitutional Narrative: Overweight, elderly, white female, sitting on the edge of the bed getting ready to get up in a chair, therapy at the bedside, appears comfortable but ill, nontoxic HEENT head/scalp atraumatic and moist oral mucous membranes HEENT Narrative: Edentulous, Mallampati 3, no thrush Eyes Negative for conjunctivae normal Resp normal respiratory effort, no retractions, no use of accessory muscles and clear to auscultation bilaterally Auscultation: Negative for crackles, rales, rhonchi or wheezes Cardio regular rate, regular rhythm, S1 normal heart sound, S2 normal heart sound, no murmurs, no rub, no gallops and no clicks GI normal to inspection, nondistended, normoactive bowel sounds, soft to palpation and non-tender Extremity no clubbing, cyanosis or edema Extremity Narrative: Pedal pulses are 2+, radial pulses are 2+, midline left upper extremity is clean dry and intact Neuro oriented x3, moves all extremities and no focal motor deficits Neuro Narrative: Generalized weakness noted, patient does need some assistance with bed mobility Speech: speech normal Psych affect normal Psych Narrative: Eye contact is good and patient interacts appropriately Assessment & Plan Assessment/Plan (1) Abdominal pain: (2) Lower GI bleed: (3) Neoplasm of ascending colon: PLAN: Plan Lower GI bleed secondary to bleeding large villous adenoma -Colonoscopy done today and patient was found to have a right ascending colon tumor that is suspicious for malignancy -Biopsy shows large villous adenoma on the periphery of the specimen however could still be malignancy underneath -CEA is only 2.1 -CT chest abdomen pelvis was unremarkable for any metastatic disease -Will continue to hold Plavix for now -Will continue to transfuse as needed based on hemoglobin-patient remains hemodynamically stable -General Surgery is following however patient with newly diagnosed COVID and pulmonary emboli so surgery will be delayed till next week Acute on chronic anemia -Baseline hemoglobin appears to run between 11 and 12 -Patient received 1 unit packed red blood cells on 08/27/2024 for hemoglobin of 8.2 -Bleeding seems to be improved today and hemoglobin up to 11.1 -Repeat CBC in a.m. and monitor closely for any signs of rebleeding Acute hypoxic respiratory failure 2/2 Acute Covid 19 infection and B PE -Suspect her hypoxia is predominantly related to her PE -Required placement on BiPAP and then weaned to Airvo overnight but now on 2 L nasal cannula -Will continue nocturnal BiPAP and wean daytime oxygen as able -Reevaluate tomorrow for initiation of home oral Lasix -Continue Decadron 6 mg daily x 10 days--> day 2 of 10 -Continue remdesivir day 2 of 5 -Serial labs ordered to monitor renal function and kidney function Acute pulmonary emboli bilateral lower lobes -Given GI bleeding anticoagulation was not an possibility at this time -IVC filter placed yesterday -Would recommend initiation of Eliquis 10 mg p.o. twice daily for 7 days with transition to 7 mg p.o. twice daily once surgery is okay with this postoperatively Vertigo -Improved -Continue home meclizine Chronic HFpEF/essential hypertension/hyperlipidemia -Last echo was from 2021 reported EF of 65% with normal systolic function, 1-2+ MR, trivial TR, mild AI, mild PI and a mildly dilated aortic root with moderate left atrial enlargement -Continue to hold diuretics due to slight bump in renal function will reevaluate tomorrow -Awaiting med reconciliation to be verified and will restart medications accordingly -Continue home atenolol -Continue home amlodipine History of stroke -Hold Plavix due to the above -Continue secondary prevention Bilateral carotid artery stenosis -Less than 50% -Outpatient follow-up GERD -Continue PPI Overactive Bladder -Hold home oxybutynin as this is on the beers list and may worsen her lightheadedness and dizziness and increased risk for fall DVT prophylaxis -Chemoprophylaxis on hold due to GI bleeding -Continue SCDs CODE STATUS -DNR CCA with no intubation per discussion with family. They do understand that this will be temporarily suspended during surgery and are okay with any intervention that needs to be performed in the perioperative period. They do understand that CODE STATUS will be reinstituted postoperatively. Son called and updated today with regards to her status and plans for OR on Wednesday as long as she continues to improve clinically Charges/Coding Visit Charges Inpatient E&M: 16183 Subs Hosp L2
--- NOTE | 2024-09-01 17:23 | PCM.PN.SRG ---
Subjective Subjective Saw patient resting in bed. She denies any pain at the R IJ access site. She reports she feels much less SOB this afternoon. She denies CP. Objective Data Objective Data Vital Signs: Vital Signs Temp Pulse Resp BP Pulse Ox O2 Del Method O2 Flow Rate 97.4 F L 74 19 H 116/64 97 Nasal Cannula 2 09/01/24 16:54 09/01/24 16:54 09/01/24 16:54 09/01/24 16:54 09/01/24 16:54 09/01/24 16:54 09/01/24 16:54 FiO2 42 09/01/24 11:39 Oxygen Flow Rate (L/min) 2 Oxygen Delivery Method Nasal Cannula Weight: 181 lb 3.52 oz Body Mass Index (BMI) 29.1 Intake & Output: Intake and Output for Last 24 Hours 08/30/24 08/31/24 09/01/24 23:59 23:59 23:59 Intake Total 1750 / 1870 940 / 940 410 / 410 Output Total 1100 / 1100 2140 / 2140 525 / 525 Balance 650 / 770 -1200 / -1200 -115 / -115 Lab / Micro Data 09/01/24 06:22 09/01/24 06:22 Labs: Laboratory Results - last 24 hr 08/31/24 18:18: POC Glucose 208 H 09/01/24 06:22: WBC 12.3 H, RBC 3.53 L, Hgb 10.5 L, Hct 31.4 L, MCV 89.0, MCH 29.7, MCHC 33.4, RDW Std Deviation 45.1 H, RDW Coeff of Taina 13.9, Plt Count 247, MPV 9.7, Sodium 138, Potassium 4.2, Chloride 109 H, Carbon Dioxide 21.0, Anion Gap 9, BUN 30 H, Creatinine 1.15 H, Estim Creat Clear Calc 37.25, Est GFR (MDRD) Af Amer 57 L, Est GFR (MDRD) Non-Af 47 L, BUN/Creatinine Ratio 26.1 H, Glucose 162 H, Calcium 9.4, Total Bilirubin 0.30, AST 13 L, ALT 15, Alkaline Phosphatase 68, Total Protein 6.4, Albumin 2.7 L, Globulin 3.7, Albumin/Globulin Ratio 0.7 L 09/01/24 06:32: POC Glucose 169 H Micro: Microbiology 08/31/24 09:50 Mucosa - Nose SARS-CoV-2, Influenza & RSV (PCR) - Final SARS-CoV-2 (COVID 19 PCR) 08/26/24 14:17 Stool Stool Lactoferrin - Final 08/26/24 14:17 Stool Enteric Bacteriology - Final ABG Data ABG results: ABG 09/01/24 09/01/24 00:50 09:18 Specimen Type ART ART Sample Site R Brach R Brach pH 7.47 H 7.50 H Bicarbonate Actual 19.6 L 21.8 L Total CO2 20 23 Base Excess -4 L -1 O2 Saturation 99 99 O2 % 90.0 55.0 ABG pCO2 27.1 L 27.9 L ABG pO2 125 H 118 H Pérez Test Positive O2 Delivery Device BiPAP airvo Vent Mode Not entered Not entered POC PEEP 12 Physical Exam Const oriented x3 and no apparent distress Neck Neck Narrative: R IJ site with no significant edema or ecchymosis, soft to palpation. No bleeding noted. Resp normal respiratory effort Cardio regular rate and regular rhythm Neuro CN's II-XII intact bilaterally and no focal motor deficits Speech: speech normal Psych mental status grossly normal, cooperative, affect normal, speech normal and activity/motor behavior normal Assessment & Plan Assessment/Plan (1) Pulmonary embolism: QUALIFIERS: Pulmonary embolism type: multiple subsegmental (without acute cor pulmonale) Qualified Code(s): I26.94 - Multiple subsegmental thrombotic pulmonary emboli without acute cor pulmonale PLAN: She is status post IVC filter placement on 08/31/2024. She denies any pain or other concerns at the access site, new or worse abdominal/chest pain. Right IJ site is satisfactory in appearance without any evidence of hematoma or bleeding. Will plan for outpatient follow-up at discharge. Charges/Coding Visit Charges Inpatient E&M: 70078 Subs Hosp L1
[2024-09-01 19:03] LABS: Bedside Glucose 205 mg/dL (74-106)
[2024-09-01 19:03] LABS: Bedside Glucose 159 mg/dL (74-106)
[2024-09-01] MEDS: Budesonide Respules 0.5 MG/2 ML AMPUL.NEB. INHALATION (19:08)
[2024-09-01] MEDS: Albuterol 2.5 MG/3 ML VIAL.NEB. INHALATION (19:08)
[2024-09-01 23:32] LABS: Bedside Glucose 196 mg/dL (74-106)
[2024-09-02] VITALS (11 sets, daily range): BP systolic 136–152; BP diastolic 56–76; PULSE 60–76; RESP 12–22; TEMP 36.1–36.6; O2SAT 94–99; BMI 29.5
[2024-09-02] MEDS: Menthol/Lanolin/Calamine/Znox 113 GM Tube 1 APPLIC TOPICAL ×3 (06:57→21:38)
[2024-09-02 07:16] LABS: Bedside Glucose 129 mg/dL (74-106)
[2024-09-02] MEDS: Albuterol 2.5 MG/3 ML VIAL.NEB. INHALATION ×3 (07:45→20:04)
[2024-09-02] MEDS: Budesonide Respules 0.5 MG/2 ML AMPUL.NEB. INHALATION ×2 (07:45→20:04)
[2024-09-02 08:28] LABS: Hematocrit 28.8 % (37-47); Hemoglobin 9.3 g/dL (12.0-15.0); Mean Corp Hgb Conc 32.3 g/dL (32-36); Mean Corpuscular Volume 92.9 fL (81-99); Mean Platelet Vol. 10.9 fl (6.2-12.0); Platelet Count 209 K/mm3 (150-450); RBC Distribution Width CV 14.3 % (11.6-14.6); RBC Distribution Width SD 47.9 fl (35.1-43.9); White Blood Count 14.8 K/mm3 (4.4-11.0)
[2024-09-02 10:04] LABS: ALB/GLOB Ratio 0.7 RATIO (0.9-2.4); AST(SGOT) 13 U/L (15-37); Alanine Aminotransfer ALT/SGPT 14 U/L (13-56); Albumin, Serum 2.4 g/dL (3.2-5.0); Alkaline Phosphatase 63 U/L (45-117); Anion Gap 7 (5-15); BUN 36 mg/dL (7-18); BUN/Creat Ratio 37.5 RATIO (10-20); Calcium,Total 8.6 mg/dL (8.5-10.1); Chloride 110 mmol/L (98-107); Creatinine, Serum 0.96 mg/dL (0.55-1.02); EST Glomerular Filtration Rate 59 mL/min (>60); Est Glom Filt Rate - Afr Amer 71 mL/min (>60); Estimated Creatinine Clearance 44.88 ml/min; Globulin 3.3 g/dL (2.2-4.2); Glucose 122 mg/dL (74-106); Magnesium 1.9 mg/dL (1.6-2.6); Phosphorus 3.3 mg/dL (2.5-4.9); Potassium 3.9 mmol/L (3.5-5.1); Protein, Total 5.7 g/dL (6.4-8.2); Sodium Level 138 mmol/L (136-145)
[2024-09-02] MEDS: Pantoprazole Sodium 40 MG in 0.9% Normal Saline (100mL MB+) 100 ML 330 MG IV ×2 (10:21→21:38)
[2024-09-02] MEDS: dexAMETHasone 10 MG/ML Vial 6 MG IV (10:21)
[2024-09-02] MEDS: 0.9% Saline Lock 10 ML Syringe IV (10:21)
[2024-09-02] MEDS: Atorvastatin Calcium 10 MG Tablet PO (10:21)
[2024-09-02] MEDS: Loratadine 10 MG Tablet PO (10:22)
[2024-09-02] MEDS: Atenolol 50 MG Tablet PO (10:22)
[2024-09-02] MEDS: Acetaminophen 325 MG Tablet 650 MG PO (10:34)
--- NOTE | 2024-09-02 12:13 | PCM.PN.SRG ---
Subjective Subjective Patient without any new significant complaints overnight. She states that her breathing continues to improve. She denies any significant shortness of breath. It sounds as though she did have some stool contained blood last evening. Objective Data Objective Data Vital Signs: Vital Signs Temp Pulse Resp BP Pulse Ox O2 Del Method O2 Flow Rate 97.6 F L 65 18 147/65 H 96 Room Air 2 09/02/24 09:35 09/02/24 09:35 09/02/24 09:35 09/02/24 09:35 09/02/24 09:35 09/02/24 09:35 09/02/24 07:45 FiO2 35 09/02/24 03:38 Oxygen Flow Rate (L/min) 2 Oxygen Delivery Method Room Air Weight: 183 lb 6.793 oz Body Mass Index (BMI) 29.5 Intake & Output: Intake and Output for Last 24 Hours 08/31/24 09/01/24 09/02/24 23:59 23:59 23:59 Intake Total 940 / 940 520 / 520 Output Total 2140 / 2140 525 / 775 600 / 600 Balance -1200 / -1200 -5 / -255 -600 / -600 Lab / Micro Data 09/02/24 08:04 09/02/24 08:04 Labs: Laboratory Results - last 24 hr 09/01/24 11:39: POC Glucose 205 H 09/01/24 16:52: POC Glucose 159 H 09/01/24 21:47: POC Glucose 196 H 09/02/24 06:56: POC Glucose 129 H 09/02/24 08:04: WBC 14.8 H, RBC 3.10 L, Hgb 9.3 L, Hct 28.8 L, MCV 92.9, MCH 30.0, MCHC 32.3, RDW Std Deviation 47.9 H, RDW Coeff of Taina 14.3, Plt Count 209, MPV 10.9, Sodium 138, Potassium 3.9, Chloride 110 H, Carbon Dioxide 21.0, Anion Gap 7, BUN 36 H, Creatinine 0.96, Estim Creat Clear Calc 44.88, Est GFR (MDRD) Af Amer 71, Est GFR (MDRD) Non-Af 59 L, BUN/Creatinine Ratio 37.5 H, Glucose 122 H, Calcium 8.6, Phosphorus 3.3, Magnesium 1.9, Total Bilirubin 0.30, AST 13 L, ALT 14, Alkaline Phosphatase 63, Total Protein 5.7 L, Albumin 2.4 L, Globulin 3.3, Albumin/Globulin Ratio 0.7 L Micro: Microbiology 08/31/24 09:50 Mucosa - Nose SARS-CoV-2, Influenza & RSV (PCR) - Final SARS-CoV-2 (COVID 19 PCR) 08/26/24 14:17 Stool Stool Lactoferrin - Final 08/26/24 14:17 Stool Enteric Bacteriology - Final Physical Exam Const oriented x3 and no apparent distress GI normal to inspection, nondistended, normoactive bowel sounds Assessment & Plan Assessment/Plan (1) Neoplasm of ascending colon: PLAN: Plan Patient is a 89-year-old female with a known right colon mass tentatively scheduled for right hemicolectomy during hospitalization as mass seems to be contributing to anemia. Patient has since developed pulmonary issues and was found to not only be COVID-positive but was also diagnosed with pulmonary embolism. Due to the anemia/colon mass and concern for bleeding with anticoagulation, IVC filter was placed. At the present time we would recommend continued medical management and hopefully her respiratory status will continue to improve thus allowing potential for surgery early next week. Tentative plan is for surgery on Wednesday as long as her pulmonary status allows. Will likely require gentle bowel prep tomorrow as it appears that she is currently on a heart healthy diet. Charges/Coding Visit Charges Inpatient E&M: 04982 Subs Hosp L2
[2024-09-02 12:15] LABS: Bedside Glucose 136 mg/dL (74-106)
--- NOTE | 2024-09-02 12:38 | PN.CC_ITS ---
Objective Data Objective Data Vital Signs: Vital Signs Last response 3 Temperature 36.4 C L 09/02/24 09:35 Temperature Source Temporal 09/02/24 09:35 Pulse Rate 65 09/02/24 09:35 Pulse Strength Normal (2+) 09/01/24 10:00 Respiratory Rate 18 09/02/24 09:35 Respiratory Effort Normal, Non-Labored 09/02/24 03:38 Respiratory Depth Normal 09/02/24 03:38 Respiratory Pattern Normal 09/02/24 07:45 Blood Pressure 147/65 H 09/02/24 09:35 Blood Pressure Mean 92 09/02/24 09:35 Blood Pressure Source Monitor 09/02/24 09:35 Blood Pressure Position Sitting 09/02/24 09:35 Blood Pressure Location Right Arm 09/02/24 09:35 Baseline BP 152/68 08/31/24 19:00 Pulse Ox 96 09/02/24 09:35 Oxygen Delivery Method Room Air 09/02/24 09:35 Oxygen Flow Rate (L/min) 2 09/02/24 07:45 Fraction of Inspired Oxygen (FIO2) 35 09/02/24 03:38 I&O: I&O Last 24 Hours 3 09/01/24 09/02/24 09/02/24 23:59 11:59 23:59 Intake Total 470 / 520 Output Total 200 / 775 600 / 600 Balance 270 / -255 -600 / -600 I&O: Total Stay 3 08/25/24 07:39 thru 09/02/24 06:00 Intake Total 43818.00 Output Total 7115 Balance 3467.00 Current Meds Ordered / Administered: Current meds ordered / Administered 3 Generic Name Dose Route Start Last Admin Trade Name Freq PRN Reason Stop Dose Admin Acetaminophen 650 mg 08/25/24 18:48 09/02/24 10:34 Acetaminophen 325 Mg Tablet PO 650 mg Q6H PRN PRN Administration Pain 1-10 Or Fever >100.7 Albuterol Sulfate 2.5 mg 08/26/24 14:45 09/02/24 07:45 Albuterol 2.5 Mg/3 Ml Vial.Neb. INHALATION 2.5 mg Q6HWA.RT JENNIFER Administration Atenolol 50 mg 08/27/24 10:00 09/02/24 10:22 Atenolol 50 Mg Tablet PO 50 mg DAILY JENNIFER Administration Protocol Atorvastatin Calcium 10 mg 08/27/24 10:00 09/02/24 10:21 Atorvastatin Calcium 10 Mg Tablet PO 10 mg DAILY JENNIFER Administration Budesonide 0.5 mg 08/26/24 14:45 09/02/24 07:45 Budesonide Respules 0.5 Mg/2 Ml Ampul.Neb. INHALATION 0.5 mg Q12H.RT JENNIFER Administration Calamine/Phenol 1 applic 08/28/24 09:00 09/02/24 06:57 Menthol/Lanolin/Calamine/Znox 113 Gm Tube TOPICAL 1 applic TID JENNIFER Administration Protocol Dexamethasone Sodium Phosphate 6 mg 09/01/24 10:00 09/02/24 10:21 Dexamethasone 10 Mg/Ml Vial IV 6 mg DAILY JENNIFER Administration Fluticasone Propionate 2 spray 09/01/24 10:00 09/01/24 08:53 Fluticasone 0.05% 1 [place] Nasal.Sry NASAL 2 spray DAILY JENNIFER Administration Pantoprazole Sodium 40 mg/ 110 mls @ 330 mls/hr 08/25/24 20:00 09/02/24 10:21 Sodium Chloride IV 330 mls/hr Q12 JENNIFER Administration Sodium Chloride 250 mls @ 15 mls/hr 08/25/24 18:51 IV .[id number] PRN Additional IVPB Infusion Sodium Chloride 250 mls @ 15 mls/hr 08/25/24 18:51 IV .[id number] PRN Saline Flush Remdesivir 100 mg/ Sodium 250 mls @ 250 mls/hr 09/01/24 10:00 09/01/24 13:57 Chloride IV 09/04/24 10:59 Infused DAILY JENNIFER Infusion Protocol Insulin Human Lispro 0 unit 08/30/24 07:00 09/02/24 06:58 Insulin Lispro 100 Unit/Ml Insuln.Pen SC Not Given TIDAC JENNIFER Protocol Loratadine 10 mg 09/01/24 10:00 09/02/24 10:22 Loratadine 10 Mg Tablet PO 10 mg DAILY JENNIFER Administration Meclizine HCl 25 mg 08/30/24 16:52 Meclizine Hcl 25 Mg Tablet PO TID PRN dizziness Nitroglycerin 0.4 mg 08/25/24 18:48 Nitroglycerin (Inpatient Use) 0.4 Mg Tab.Subl SL Q5M PRN CARDIAC/CHEST PAIN Ondansetron HCl 4 mg 08/25/24 18:48 Ondansetron 4 Mg/2 Ml Vial IV Q8H PRN PRN NAUSEA/VOMITING Sodium Chloride 10 - 40 ml 08/25/24 18:51 09/02/24 10:21 0.9% Saline Lock 10 Ml Syringe IV 10 ml UD PRN Administration SALINE FLUSH Lab / Micro Data Attestation: I reviewed the patient's lab results. 09/02/24 08:04 09/02/24 08:04 Labs: Laboratory Results - last 24 hr 09/01/24 11:39: POC Glucose 205 H 09/01/24 16:52: POC Glucose 159 H 09/01/24 21:47: POC Glucose 196 H 09/02/24 06:56: POC Glucose 129 H 09/02/24 08:04: WBC 14.8 H, RBC 3.10 L, Hgb 9.3 L, Hct 28.8 L, MCV 92.9, MCH 30.0, MCHC 32.3, RDW Std Deviation 47.9 H, RDW Coeff of Taina 14.3, Plt Count 209, MPV 10.9, Sodium 138, Potassium 3.9, Chloride 110 H, Carbon Dioxide 21.0, Anion Gap 7, BUN 36 H, Creatinine 0.96, Estim Creat Clear Calc 44.88, Est GFR (MDRD) Af Amer 71, Est GFR (MDRD) Non-Af 59 L, BUN/Creatinine Ratio 37.5 H, Glucose 122 H, Calcium 8.6, Phosphorus 3.3, Magnesium 1.9, Total Bilirubin 0.30, AST 13 L, ALT 14, Alkaline Phosphatase 63, Total Protein 5.7 L, Albumin 2.4 L, Globulin 3.3, Albumin/Globulin Ratio 0.7 L 09/02/24 11:24: POC Glucose 136 H Assessment and Plan . Assessment and plan: IMPRESSIONS: 1. Acute hypoxemic respiratory failure COVID pneumonia, PE - continue remdesivir, steroids. -s/p IVC filter 2. 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 Continue to monitor H&H for now and transfuse if hemoglobin drops below 7 g/dL. 3. History of CVA/carotid artery stenosis/GERD Complicates care, management, recovery and prognosis. Continue home medications as indicated. Critical Care Time: 50 minutes The entirety of this encounter was done via Telemedicine Physical Exam Const alert and no apparent distress General Appearance: frail HEENT normocephalic Eyes EOMs intact bilaterally Neck no JVD Resp normal respiratory effort Cardio regular rate Subjective Subjective Making progress, appears well
[2024-09-02] MEDS: Remdesivir 100 MG in 0.9% Normal Saline (250mL Bag) 230 ML 250 MG IV (12:39)
--- NOTE | 2024-09-02 12:53 | PCM.PN.HOSP ---
Reason for Visit Reason for Visit: Rectal bleeding Subjective Subjective Patient states her dizziness is gone. She is just complaining of a headache and some back pain this morning. Tylenol to be given. Breathing is much improved and she was weaned down to 2 L and now on room air with sats in the 90s. Plan is tentatively for surgery on Wednesday. Objective Data Objective Data Vital Signs: Vital Signs Temp Pulse Resp BP Pulse Ox O2 Del Method O2 Flow Rate 97.6 F L 65 18 147/65 H 96 Room Air 2 09/02/24 09:35 09/02/24 09:35 09/02/24 09:35 09/02/24 09:35 09/02/24 09:35 09/02/24 10:00 09/02/24 07:45 FiO2 35 09/02/24 03:38 Oxygen Flow Rate (L/min) 2 Oxygen Delivery Method Room Air Weight: 83.2 kg Body Mass Index (BMI) 29.5 Intake & Output: Intake and Output for Last 24 Hours 08/31/24 09/01/24 09/02/24 23:59 23:59 23:59 Intake Total 940 / 940 520 / 520 610 / 610 Output Total 2140 / 2140 525 / 775 600 / 600 Balance -1200 / -1200 -5 / -255 Lab / Micro Data 09/02/24 08:04 09/02/24 08:04 Labs: Laboratory Results - last 24 hr 09/01/24 11:39: POC Glucose 205 H 09/01/24 16:52: POC Glucose 159 H 09/01/24 21:47: POC Glucose 196 H 09/02/24 06:56: POC Glucose 129 H 09/02/24 08:04: WBC 14.8 H, RBC 3.10 L, Hgb 9.3 L, Hct 28.8 L, MCV 92.9, MCH 30.0, MCHC 32.3, RDW Std Deviation 47.9 H, RDW Coeff of Taina 14.3, Plt Count 209, MPV 10.9, Sodium 138, Potassium 3.9, Chloride 110 H, Carbon Dioxide 21.0, Anion Gap 7, BUN 36 H, Creatinine 0.96, Estim Creat Clear Calc 44.88, Est GFR (MDRD) Af Amer 71, Est GFR (MDRD) Non-Af 59 L, BUN/Creatinine Ratio 37.5 H, Glucose 122 H, Calcium 8.6, Phosphorus 3.3, Magnesium 1.9, Total Bilirubin 0.30, AST 13 L, ALT 14, Alkaline Phosphatase 63, Total Protein 5.7 L, Albumin 2.4 L, Globulin 3.3, Albumin/Globulin Ratio 0.7 L 09/02/24 11:24: POC Glucose 136 H Micro: Microbiology 08/31/24 09:50 Mucosa - Nose SARS-CoV-2, Influenza & RSV (PCR) - Final SARS-CoV-2 (COVID 19 PCR) 08/26/24 14:17 Stool Stool Lactoferrin - Final 08/26/24 14:17 Stool Enteric Bacteriology - Final Physical Exam Const alert, oriented x3, no apparent distress and well nourished; Negative for average body habitus or healthy appearing Constitutional Narrative: Overweight, elderly, white female, up in bed, nursing at bedside appears comfortable, appears well today, nontoxic HEENT head/scalp atraumatic and moist oral mucous membranes HEENT Narrative: Edentulous, Mallampati 3, no thrush Head and Scalp: normocephalic Eyes Negative for conjunctivae normal Resp normal respiratory effort, no retractions, no use of accessory muscles and clear to auscultation bilaterally Auscultation: Negative for crackles, rales, rhonchi or wheezes Cardio regular rate, regular rhythm, S1 normal heart sound, S2 normal heart sound, no murmurs, no rub, no gallops and no clicks GI normal to inspection, nondistended, normoactive bowel sounds, soft to palpation and non-tender Extremity no clubbing, cyanosis or edema Extremity Narrative: Pedal pulses are 2+ Neuro oriented x3, moves all extremities and no focal motor deficits Neuro Narrative: Generalized weakness noted Speech: speech normal Psych affect normal Psych Narrative: Eye contact is good and patient interacts appropriately Assessment & Plan Assessment/Plan (1) Abdominal pain: (2) Lower GI bleed: (3) Neoplasm of ascending colon: PLAN: Plan Lower GI bleed secondary to bleeding large villous adenoma -Colonoscopy done today and patient was found to have a right ascending colon tumor that is suspicious for malignancy -Biopsy shows large villous adenoma on the periphery of the specimen however could still be malignancy underneath -CEA is only 2.1 -CT chest abdomen pelvis was unremarkable for any metastatic disease -Will continue to hold Plavix for now -Will continue to transfuse as needed based on hemoglobin-patient remains hemodynamically stable -General Surgery is following however patient with newly diagnosed COVID and pulmonary emboli -Plan for OR on Wednesday as long as patient is medically stable Acute on chronic anemia -Baseline hemoglobin appears to run between 11 and 12 -Patient received 1 unit packed red blood cells on 08/27/2024 for hemoglobin of 8.2 -Patient is having intermittent ongoing bloody bowel movements and hemoglobin today at 9.3--> repeat is pending for 2 PM -Will transfuse for any significant drop -Repeat CBC in a.m. and monitor closely for any signs of rebleeding Acute hypoxic respiratory failure 2/ Acute Covid 19 infection and B PE -Suspect her hypoxia is predominantly related to her PE -Patient has now been able to be weaned to room air at rest -Will continue BiPAP at night for now to optimize for OR -Reevaluate tomorrow for initiation of home oral Lasix -Continue Decadron 6 mg daily x 10 days--> day 3 of 10 -Continue remdesivir day 3 of 5 -Serial labs ordered to monitor renal function and kidney function Acute pulmonary emboli bilateral lower lobes -Given GI bleeding anticoagulation was not an possibility at this time -IVC filter placed 08/31/2024 -Would recommend initiation of Eliquis 10 mg p.o. twice daily for 7 days with transition to 7 mg p.o. twice daily once surgery is okay with this postoperatively Vertigo -Resolved -Continue home meclizine Chronic HFpEF/essential hypertension/hyperlipidemia -Last echo was from 2021 reported EF of 65% with normal systolic function, 1-2+ MR, trivial TR, mild AI, mild PI and a mildly dilated aortic root with moderate left atrial enlargement -Will likely restart home Lasix tomorrow -Awaiting med reconciliation to be verified and will restart medications accordingly -Continue home atenolol -Continue home amlodipine History of stroke -Hold Plavix due to the above -Continue secondary prevention Bilateral carotid artery stenosis -Less than 50% -Outpatient follow-up GERD -Continue PPI Overactive Bladder -Hold home oxybutynin as this is on the beers list and may worsen her lightheadedness and dizziness and increased risk for fall DVT prophylaxis -Chemoprophylaxis on hold due to GI bleeding -Continue SCDs CODE STATUS -DNR CCA with no intubation per discussion with family. They do understand that this will be temporarily suspended during surgery and are okay with any intervention that needs to be performed in the perioperative period. They do understand that CODE STATUS will be reinstituted postoperatively. Son updated with regards to the improvement in her respiratory status and plans for surgery on Wednesday Charges/Coding Visit Charges Inpatient E&M: 35955 Subs Hosp L2
[2024-09-02 14:21] LABS: Hematocrit 29.6 % (37-47); Hemoglobin 9.7 g/dL (12.0-15.0)
[2024-09-02] MEDS: Insulin Lispro 100 UNIT/ML INSULN.PEN SC (16:30)
[2024-09-02 17:12] LABS: Bedside Glucose 204 mg/dL (74-106)
[2024-09-03] VITALS (8 sets, daily range): BP systolic 113–152; BP diastolic 54–67; PULSE 58–78; RESP 18–20; TEMP 35.9–36.8; O2SAT 94–100; BMI 29.9; BMI 29.2
--- NOTE | 2024-09-03 02:26 | CPS ---
patient is refusing bipap at this time
[2024-09-03] MEDS: Menthol/Lanolin/Calamine/Znox 113 GM Tube 1 APPLIC TOPICAL ×3 (06:11→21:35)
[2024-09-03 06:29] LABS: Bedside Glucose 124 mg/dL (74-106)
[2024-09-03] MEDS: Budesonide Respules 0.5 MG/2 ML AMPUL.NEB. INHALATION ×2 (07:10→20:59)
[2024-09-03] MEDS: Albuterol 2.5 MG/3 ML VIAL.NEB. INHALATION ×3 (07:10→20:59)
--- NOTE | 2024-09-03 08:48 | PN.CC_ITS ---
Objective Data Objective Data Vital Signs: Vital Signs Last response 3 Temperature 35.9 C L 09/03/24 03:35 Temperature Source Temporal 09/03/24 03:35 Pulse Rate 60 09/03/24 07:11 Pulse Strength Normal (2+) 09/01/24 10:00 Respiratory Rate 20 H 09/03/24 07:11 Respiratory Effort Normal 09/02/24 20:38 Respiratory Depth Normal 09/02/24 03:38 Respiratory Pattern Tachypnea 09/03/24 07:11 Blood Pressure 149/64 H 09/03/24 03:35 Blood Pressure Mean 92 09/03/24 03:35 Blood Pressure Source Monitor 09/03/24 03:35 Blood Pressure Position Semi-Fowlers 09/03/24 03:35 Blood Pressure Location Right Arm 09/03/24 03:35 Baseline BP 152/68 08/31/24 19:00 Pulse Ox 94 09/03/24 07:11 Oxygen Delivery Method Nasal Cannula 09/03/24 07:11 Oxygen Flow Rate (L/min) 2 09/03/24 07:11 Fraction of Inspired Oxygen (FIO2) 35 09/02/24 03:38 I&O: I&O Last 24 Hours 3 09/02/24 09/02/24 09/03/24 11:59 23:59 11:59 Intake Total 970 / 970 Output Total 600 / 600 Balance -600 / 370 970 / 370 I&O: Total Stay 3 08/25/24 07:39 thru 09/03/24 04:03 Intake Total 45643.00 Output Total 7115 Balance 4437.00 Current Meds Ordered / Administered: Current meds ordered / Administered 3 Generic Name Dose Route Start Last Admin Trade Name Freq PRN Reason Stop Dose Admin Acetaminophen 650 mg 08/25/24 18:48 09/02/24 10:34 Acetaminophen 325 Mg Tablet PO 650 mg Q6H PRN PRN Administration Pain 1-10 Or Fever >100.7 Albuterol Sulfate 2.5 mg 08/26/24 14:45 09/03/24 07:10 Albuterol 2.5 Mg/3 Ml Vial.Neb. INHALATION 2.5 mg Q6HWA.RT JENNIFER Administration Atenolol 50 mg 08/27/24 10:00 09/02/24 10:22 Atenolol 50 Mg Tablet PO 50 mg DAILY JENNIFER Administration Protocol Atorvastatin Calcium 10 mg 10/06/24 10:00 09/02/24 10:21 Atorvastatin Calcium 10 Mg Tablet PO 10 mg DAILY JENNIFER Administration Budesonide 0.5 mg 08/26/24 14:45 09/03/24 07:10 Budesonide Respules 0.5 Mg/2 Ml Ampul.Neb. INHALATION 0.5 mg Q12H.RT JENNIFER Administration Calamine/Phenol 1 applic 08/28/24 09:00 09/03/24 06:11 Menthol/Lanolin/Calamine/Znox 113 Gm Tube TOPICAL 1 applic TID JENNIFER Administration Protocol Dexamethasone Sodium Phosphate 6 mg 09/01/24 10:00 09/02/24 10:21 Dexamethasone 10 Mg/Ml Vial IV 6 mg DAILY JENNIFER Administration Fluticasone Propionate 2 spray 09/01/24 10:00 09/02/24 12:39 Fluticasone 0.05% 1 [place] Nasal.Sry NASAL Not Given DAILY JENNIFER Pantoprazole Sodium 40 mg/ 110 mls @ 330 mls/hr 08/25/24 20:00 09/02/24 22:00 Sodium Chloride IV Infused Q12 JENNIFER Infusion Sodium Chloride 250 mls @ 15 mls/hr 08/25/24 18:51 IV .[id number] PRN Additional IVPB Infusion Sodium Chloride 250 mls @ 15 mls/hr 08/25/24 18:51 IV .[id number] PRN Saline Flush Remdesivir 100 mg/ Sodium 250 mls @ 250 mls/hr 09/01/24 10:00 09/02/24 13:45 Chloride IV 09/04/24 10:59 Infused DAILY JENNIFER Infusion Protocol Insulin Human Lispro 0 unit 08/30/24 07:00 09/03/24 06:11 Insulin Lispro 100 Unit/Ml Insuln.Pen SC Not Given TIDAC [facility] Protocol Loratadine 10 mg 09/01/24 10:00 09/02/24 10:22 Loratadine 10 Mg Tablet PO 10 mg DAILY JENNIFER Administration Meclizine HCl 25 mg 08/30/24 16:52 Meclizine Hcl 25 Mg Tablet PO TID PRN dizziness Nitroglycerin 0.4 mg 08/25/24 18:48 Nitroglycerin (Inpatient Use) 0.4 Mg Tab.Subl SL Q5M PRN CARDIAC/CHEST PAIN Ondansetron HCl 4 mg 08/25/24 18:48 Ondansetron 4 Mg/2 Ml Vial IV Q8H PRN PRN NAUSEA/VOMITING Sodium Chloride 10 - 40 ml 08/25/24 18:51 09/02/24 10:21 0.9% Saline Lock 10 Ml Syringe IV 10 ml UD PRN Administration SALINE FLUSH Lab / Micro Data Attestation: I reviewed the patient's lab results. 09/02/24 14:07 09/02/24 08:04 Labs: Laboratory Results - last 24 hr 09/02/24 08:04: Sodium 138, Potassium 3.9, Chloride 110 H, Carbon Dioxide 21.0, Anion Gap 7, BUN 36 H, Creatinine 0.96, Estim Creat Clear Calc 44.88, Est GFR (MDRD) Af Amer 71, Est GFR (MDRD) Non-Af 59 L, BUN/Creatinine Ratio 37.5 H, G lucose 122 H, Calcium 8.6, Phosphorus 3.3, Magnesium 1.9, Total Bilirubin 0.30, AST 13 L, ALT 14, Alkaline Phosphatase 63, Total Protein 5.7 L, Albumin 2.4 L, Globulin 3.3, Albumin/Globulin Ratio 0.7 L 09/02/24 11:24: POC Glucose 136 H 09/02/24 14:07: Hgb 9.7 L, Hct 29.6 L 09/02/24 16:29: POC Glucose 204 H 09/03/24 06:10: POC Glucose 124 H Assessment and Plan . Assessment and plan: IMPRESSIONS: 1. Acute on chronic hypoxemic respiratory failure, resolving - multifactorial with components of COVID pneumonia, PE - oxygen needs are modest/ baseline @ 2L/min - completing courses of remdesivir, steroids. - s/p IVC filter 2. Lower gastrointestinal bleed secondary to villous adenoma - anemia is stable, drifting lower but not requiring transfusion today - agree with plans for surgery tomorrow- from a respiratory standpoint she is stable for same 3. History of CVA/carotid artery stenosis/GERD Complicates care, management, recovery and prognosis. Continue home medications as indicated. Critical Care Time: 50 minutes The entirety of this encounter was done via Telemedicine Physical Exam Const no apparent distress General Appearance: well developed HEENT head/scalp atraumatic Neck no JVD Resp normal respiratory effort Cardio regular rate and regular rhythm Subjective Subjective No new concerns raised overnight.
[2024-09-03] MEDS: Atorvastatin Calcium 10 MG Tablet PO (08:57)
[2024-09-03] MEDS: Pantoprazole Sodium 40 MG in 0.9% Normal Saline (100mL MB+) 100 ML 330 MG IV ×2 (08:57→21:36)
[2024-09-03] MEDS: dexAMETHasone 10 MG/ML Vial 6 MG IV (08:57)
[2024-09-03] MEDS: Atenolol 50 MG Tablet PO (08:58)
[2024-09-03] MEDS: Loratadine 10 MG Tablet PO (08:58)
[2024-09-03] MEDS: Remdesivir 100 MG in 0.9% Normal Saline (250mL Bag) 230 ML 250 MG IV (09:32)
[2024-09-03 09:45] LABS: Absolute Lymphocyte Count 1.26 X10^3/uL (0.83-4.51); Absolute Neutrophil Count 7.7 X10^3/uL (2.0-7.7); Hematocrit 28.8 % (37-47); Hemoglobin 9.3 g/dL (12.0-15.0); Lymphocyte # 1.26 X10^3/ul (0.83-4.51); Mean Corp Hgb Conc 32.3 g/dL (32-36); Mean Corpuscular Volume 92.9 fL (81-99); Mean Platelet Vol. 10.1 fl (6.2-12.0); Monocyte# 0.69 X10^3/uL; Monocyte% 7.1 % (0-10); NRBC Flagged by Analyzer 0 % (0-5); Neutrophil # 7.71 X10^3/uL (2.7-7.7); Neutrophil % 79.3 % (47-70); Platelet Count 218 K/mm3 (150-450); RBC Distribution Width CV 14.5 % (11.6-14.6); White Blood Count 9.7 K/mm3 (4.4-11.0)
[2024-09-03 09:58] LABS: Anion Gap 9 (5-15); BUN 31 mg/dL (7-18); BUN/Creat Ratio 33.7 RATIO (10-20); Calcium,Total 8.5 mg/dL (8.5-10.1); Chloride 111 mmol/L (98-107); Creatinine, Serum 0.92 mg/dL (0.55-1.02); EST Glomerular Filtration Rate 61 mL/min (>60); Est Glom Filt Rate - Afr Amer 74 mL/min (>60); Estimated Creatinine Clearance 47.16 ml/min; Glucose 159 mg/dL (74-106); Potassium 3.4 mmol/L (3.5-5.1); Sodium Level 139 mmol/L (136-145)
[2024-09-03] MEDS: Isosorbide Mononitrate 60 MG Tablet PO (11:20)
[2024-09-03] MEDS: Acetaminophen 325 MG Tablet 650 MG PO (11:31)
[2024-09-03 11:43] LABS: Bedside Glucose 143 mg/dL (74-106)
--- NOTE | 2024-09-03 12:40 | PCM.PN.SRG ---
Subjective Subjective Patient denies any new complaints. She states that her breathing continues to improve. She is currently on room air. Objective Data Objective Data Vital Signs: Vital Signs Temp Pulse Resp BP Pulse Ox O2 Del Method O2 Flow Rate 97.0 F L 69 18 152/67 H 100 Room Air 2 09/03/24 08:55 09/03/24 12:24 09/03/24 12:24 09/03/24 08:55 09/03/24 08:55 09/03/24 10:00 09/03/24 07:11 FiO2 35 09/02/24 03:38 Oxygen Flow Rate (L/min) 2 Oxygen Delivery Method Room Air Weight: 186 lb 1.122 oz Body Mass Index (BMI) 29.9 Intake & Output: Intake and Output for Last 24 Hours 09/01/24 09/02/24 09/03/24 23:59 23:59 23:59 Intake Total 520 / 520 970 / 970 760 / 760 Output Total 525 / 775 600 / 600 800 / 800 Balance -5 / -255 370 / 370 -40 / -40 Lab / Micro Data 09/03/24 09:30 09/03/24 09:30 Labs: Laboratory Results - last 24 hr 09/02/24 14:07: Hgb 9.7 L, Hct 29.6 L 09/02/24 16:29: POC Glucose 204 H 09/03/24 06:10: POC Glucose 124 H 09/03/24 09:30: WBC 9.7, RBC 3.10 L, Hgb 9.3 L, Hct 28.8 L, MCV 92.9, MCH 30.0, MCHC 32.3, RDW Std Deviation 48.0 H, RDW Coeff of Taina 14.5, Plt Count 218, MPV 10.1, Immature Gran % (Auto) 0.600, Neut % (Auto) 79.3 H, Lymph % (Auto) 13.0 L, [place] % (Auto) 7.1, Eos % (Auto) 0.0, Baso % (Auto) 0.0, Absolute Neuts (auto) 7.7, Absolute Lymphs (auto) 1.26, Nucleated RBC % 0, Sodium 139, Potassium 3.4 L, Chloride 111 H, Carbon Dioxide 20.0 L, Anion Gap 9, BUN 31 H, Creatinine 0.92, Estim Creat Clear Calc 47.16, Est GFR (MDRD) Af Amer 74, Est GFR (MDRD) Non-Af 61, BUN/Creatinine Ratio 33.7 H, Glucose 159 H, Calcium 8.5 09/03/24 11:13: POC Glucose 143 H Micro: Microbiology 08/31/24 09:50 Mucosa - Nose SARS-CoV-2, Influenza & RSV (PCR) - Final SARS-CoV-2 (COVID 19 PCR) 08/26/24 14:17 Stool Stool Lactoferrin - Final 08/26/24 14:17 Stool Enteric Bacteriology - Final Physical Exam Const oriented x3 and no apparent distress Resp normal respiratory effort GI normal to inspection, nondistended, normoactive bowel sounds, soft to palpation and non-tender Assessment & Plan Assessment/Plan (1) Neoplasm of ascending colon: PLAN: Plan Patient is a 89-year-old female with a known right colon mass tentatively scheduled for right hemicolectomy during hospitalization as mass seems to be contributing to anemia. Patient developed pulmonary issues and was found to not only be COVID-positive but was also diagnosed with pulmonary embolism. Due to the anemia/colon mass and concern for bleeding with anticoagulation, IVC filter was placed. She continues to improve from a pulmonary standpoint. I feel that it is okay to proceed with laparoscopic right colectomy as planned tomorrow with Dr. Calvin. Will begin bowel prep today as she was on a heart healthy diet. Neomycin/Flagyl also ordered. She will be n.p.o. after midnight. Discussed with hospitalist as well, and are in agreement with proceeding with surgery tomorrow. All questions and concerns were addressed Charges/Coding Visit Charges Inpatient E&M: 32152 Subs Hosp L2
[2024-09-03] MEDS: Potassium Chloride Oral Tablet 20 MEQ 60 MEQ PO (12:47)
[2024-09-03] MEDS: metroNIDAZOLE 500 MG Tablet PO ×3 (12:49→22:07)
--- NOTE | 2024-09-03 14:27 | PN.HOSP_ITS ---
Reason for Visit Reason for Visit: Rectal bleeding Subjective Subjective Patient states her dizziness is resolved. Headache is resolved. Denying any pain. States she just tired and little achy today. We did confirm that surgery will be tomorrow at about noon. Nursing to notify family. Objective Data Objective Data Vital Signs: Vital Signs Temp Pulse Resp BP Pulse Ox O2 Del Method O2 Flow Rate 97.0 F L 69 18 152/67 H 100 Room Air 2 09/03/24 08:55 09/03/24 12:24 09/03/24 12:24 09/03/24 08:55 09/03/24 08:55 09/03/24 10:00 09/03/24 07:11 FiO2 35 09/02/24 03:38 Oxygen Flow Rate (L/min) 2 Oxygen Delivery Method Room Air Weight: 84.4 kg Body Mass Index (BMI) 29.9 Intake & Output: Intake and Output for Last 24 Hours 09/01/24 09/02/24 09/03/24 23:59 23:59 23:59 Intake Total 520 / 520 970 / 970 760 / 760 Output Total 525 / 775 600 / 600 800 / 800 Balance -5 / -255 370 / 370 -40 / -40 Lab / Micro Data 09/03/24 09:30 09/03/24 09:30 Labs: Laboratory Results - last 24 hr 09/02/24 16:29: POC Glucose 204 H 09/03/24 06:10: POC Glucose 124 H 09/03/24 09:30: WBC 9.7, RBC 3.10 L, Hgb 9.3 L, Hct 28.8 L, MCV 92.9, MCH 30.0, MCHC 32.3, RDW Std Deviation 48.0 H, RDW Coeff of Taina 14.5, Plt Count 218, MPV 10.1, Immature Gran % (Auto) 0.600, Neut % (Auto) 79.3 H, Lymph % (Auto) 13.0 L, [place]on % (Auto) 7.1, Eos % (Auto) 0.0, Baso % (Auto) 0.0, Absolute Neuts (auto) 7.7, Absolute Lymphs (auto) 1.26, Nucleated RBC % 0, Sodium 139, Potassium 3.4 L , Chloride 111 H, Carbon Dioxide 20.0 L, Anion Gap 9, BUN 31 H, Creatinine 0.92, Estim Creat Clear Calc 47.16, Est GFR (MDRD) Af Amer 74, Est GFR (MDRD) Non-Af 61, BUN/Creatinine Ratio 33.7 H, Glucose 159 H, Calcium 8.5 09/03/24 11:13: POC Glucose 143 H Micro: Microbiology 08/31/24 09:50 Mucosa - Nose SARS-CoV-2, Influenza & RSV (PCR) - Final SARS-CoV-2 (COVID 19 PCR) 08/26/24 14:17 Stool Stool Lactoferrin - Final 08/26/24 14:17 Stool Enteric Bacteriology - Final Physical Exam Const alert, oriented x3, no apparent distress and well nourished; Negative for average body habitus or healthy appearing Constitutional Narrative: Overweight, elderly, white female, up in bed, watching television, appears comfortable, appears well today, nontoxic HEENT head/scalp atraumatic and moist oral mucous membranes HEENT Narrative: Edentulous, Mallampati is 2, no thrush Head and Scalp: normocephalic Resp normal respiratory effort, no retractions, no use of accessory muscles and clear to auscultation bilaterally Auscultation: Negative for crackles, rales, rhonchi or wheezes Cardio regular rate, regular rhythm, S1 normal heart sound, S2 normal heart sound, no murmurs, no rub, no gallops and no clicks GI normal to inspection, nondistended, normoactive bowel sounds, soft to palpation and non-tender Extremity no clubbing, cyanosis or edema Extremity Narrative: Pedal pulses are 2+ Neuro oriented x3 and moves all extremities Neuro Narrative: Generalized weakness noted Speech: speech normal Psych affect normal Psych Narrative: Eye contact is good and patient interacts appropriately Assessment & Plan Assessment/Plan (1) Abdominal pain: (2) Lower GI bleed: (3) Neoplasm of ascending colon: PLAN: Plan Lower GI bleed secondary to bleeding large villous adenoma -Colonoscopy done today and patient was found to have a right ascending colon tumor that is suspicious for malignancy -Biopsy shows large villous adenoma on the periphery of the specimen however could still be malignancy underneath -CEA is only 2.1 -CT chest abdomen pelvis was unremarkable for any metastatic disease -Will continue to hold Plavix for now until okay to restart per general surgery -Will continue to transfuse as needed based on hemoglobin-patient remains hemodynamically stable -General Surgery is following however patient with newly diagnosed COVID and pulmonary emboli -OR tomorrow tentatively noon -Bowel prep per general surgery -Clear liquids today and n.p.o. after midnight Acute on chronic anemia -Baseline hemoglobin appears to run between 11 and 12 -Has received a total of 3 units packed red blood cells since admission -Hemoglobin is stabilized -Repeat CBC in a.m. and monitor closely for any signs of rebleeding Acute hypoxic respiratory failure 2/2 Acute Covid 19 infection and B PE -Suspect her hypoxia is predominantly related to her PE -Patient has now been able to be weaned to room air at rest -Will continue BiPAP at night for now to optimize for OR -Reevaluate tomorrow for initiation of home oral Lasix -Continue Decadron 6 mg daily x 10 days--> day 4 of 10 -Continue remdesivir day 4 of 5 -Serial labs ordered to monitor renal function and kidney function Acute pulmonary emboli bilateral lower lobes -Given GI bleeding anticoagulation was not an possibility at this time -IVC filter placed 08/31/2024 -Would recommend initiation of Eliquis 10 mg p.o. twice daily for 7 days with transition to 7 mg p.o. twice daily once surgery is okay with this postoperatively Vertigo -Resolved -Continue home meclizine Chronic HFpEF/essential hypertension/hyperlipidemia -Last echo was from 2021 reported EF of 65% with normal systolic function, 1-2+ MR, trivial TR, mild AI, mild PI and a mildly dilated aortic root with moderate left atrial enlargement -Look to restart home Lasix after surgery -Continue home isosorbide mononitrate -Continue home atenolol -Continue home amlodipine -Continue to hold home losartan perioperatively History of stroke -Hold Plavix due to the above -Continue secondary prevention Bilateral carotid artery stenosis -Less than 50% -Outpatient follow-up GERD -Continue PPI Overactive Bladder -Hold home oxybutynin as this is on the beers list and may worsen her lightheadedness and dizziness and increased risk for fall DVT prophylaxis -Chemoprophylaxis on hold due to GI bleeding -Continue SCDs CODE STATUS -DNR CCA with no intubation per discussion with family. They do understand that this will be temporarily suspended during surgery and are okay with any intervention that needs to be performed in the perioperative period. They do understand that CODE STATUS will be reinstituted postoperatively. Charges/Coding Visit Charges Inpatient E&M: 12468 Subs Hosp L2
[2024-09-03] MEDS: Bisacodyl 5 MG Tablet 20 MG PO (14:49)
[2024-09-03] MEDS: Polyethylene Glycol 3350 BOWEL PREP PO (16:09)
[2024-09-03] MEDS: Insulin Lispro 100 UNIT/ML INSULN.PEN SC (16:13)
[2024-09-03 16:35] LABS: Bedside Glucose 183 mg/dL (74-106)
[2024-09-03] MEDS: 0.9% Saline Lock 10 ML Syringe IV (17:51)
[2024-09-03] MEDS: Ondansetron 4 MG/2 ML Vial IV (17:51)
[2024-09-04] VITALS (8 sets, daily range): BP systolic 113–139; BP diastolic 58–72; PULSE 59–72; RESP 16–25; TEMP 36.1–36.6; O2SAT 96–98; BMI 29.8
--- NOTE | 2024-09-04 05:55 | EKG12_ITS ---
Test Reason : PRE-OP Blood Pressure : / mmHG Vent. Rate : 066 BPM Atrial Rate : 066 BPM P-R Int : 170 ms QRS Dur : 146 ms QT Int : 462 ms P-R-T Axes : 058 -16 111 degrees QTc Int : 484 ms Normal sinus rhythm Right bundle branch block Minimal voltage criteria for LVH, may be normal variant ( R in aVL ) Septal infarct (cited on or before 28-AUG-2024) Abnormal ECG Confirmed by Frederick Moncada ([id number]), supervising film or videotape editor DAYAN BARTLETT ([id number]) on 09/04/2024 9:44:00 AM Referred By: Confirmed By:Frederick Mnocada
[2024-09-04] MEDS: Menthol/Lanolin/Calamine/Znox 113 GM Tube 1 APPLIC TOPICAL ×3 (06:19→19:52)
[2024-09-04] MEDS: Isosorbide Mononitrate 60 MG Tablet PO (06:21)
[2024-09-04] MEDS: Atenolol 50 MG Tablet PO (06:21)
[2024-09-04 06:41] LABS: Bedside Glucose 101 mg/dL (74-106)
[2024-09-04 06:48] LABS: Hematocrit 29.1 % (37-47); Hemoglobin 9.4 g/dL (12.0-15.0); Mean Corp Hgb Conc 32.3 g/dL (32-36); Mean Platelet Vol. 10.7 fl (6.2-12.0); Platelet Count 243 K/mm3 (150-450); RBC Distribution Width CV 14.6 % (11.6-14.6); RBC Distribution Width SD 49.3 fl (35.1-43.9); Red Blood Count 3.13 M/mm3 (4.2-5.4); White Blood Count 20.6 K/mm3 (4.4-11.0)
[2024-09-04 06:57] LABS: International Normalized Ratio 1.2; Prothrombin Time (Protime)PT. 15.6 SECONDS (11.7-14.9)
[2024-09-04 06:58] LABS: Partial Thromboplast Time 25.7 Seconds (24.1-36.2)
--- NOTE | 2024-09-04 07:45 | RAD_ITS ---
INDICATION: elevated wbc EXAMINATION/TECHNIQUE: X-RAY - XR Chest 1 View COMPARISON: August 30, 2024 CT dated August 31, 2024 FINDINGS: LINES/DEVICES: None. LUNGS: Within the left lower lung there is a somewhat triangular opacity that is more apparent than the prior examination. There are few opacities within the right lower lung as well. No pneumothorax. MEDIASTINUM AND CARDIOVASCULAR STRUCTURES: Cardiac silhouette not enlarged. Central airways and mediastinal contour are unremarkable. BONES AND SOFT TISSUES: Unremarkable. RAD/Chest 1 View IMPRESSION: Indeterminate opacity within the left lower lung, may be partially secondary to a confluence of shadows, atelectasis and/or pneumonia. Minimal atelectasis and/or pneumonia within the right lower lung. Electronically Signed: Zaina Cabrera MD at 8:05 EDT ,
[2024-09-04] MEDS: Albuterol 2.5 MG/3 ML VIAL.NEB. INHALATION ×2 (07:46→20:40)
[2024-09-04] MEDS: Budesonide Respules 0.5 MG/2 ML AMPUL.NEB. INHALATION ×2 (07:46→20:29)
[2024-09-04 07:53] LABS: Anion Gap 9 (5-15); BUN 23 mg/dL (7-18); BUN/Creat Ratio 30.7 RATIO (10-20); Calcium,Total 8.7 mg/dL (8.5-10.1); Chloride 110 mmol/L (98-107); Creatinine, Serum 0.75 mg/dL (0.55-1.02); EST Glomerular Filtration Rate 78 mL/min (>60); Est Glom Filt Rate - Afr Amer 94 mL/min (>60); Estimated Creatinine Clearance 54.17 ml/min; Glucose 107 mg/dL (74-106); Potassium 3.7 mmol/L (3.5-5.1); Sodium Level 140 mmol/L (136-145)
[2024-09-04 09:34] LABS: Hemoglobin A1c 5.5 % (3.8-5.6)
[2024-09-04] MEDS: Pantoprazole Sodium 40 MG in 0.9% Normal Saline (100mL MB+) 100 ML 330 MG IV ×2 (09:35→19:52)
--- NOTE | 2024-09-04 09:38 | PN.HOSP_ITS ---
Reason for Visit Reason for Visit: Diagnoses Neoplasm of unspecified behavior of digestive system (08/25/24) Multiple subsegmental thrombotic pulmonary emboli without acute cor pulmonale (08/25/24) Gastrointestinal hemorrhage, unspecified (08/25/24) Unspecified abdominal pain (08/25/24) Subjective Subjective Patient is an 89-year-old lady who was admitted with bleeding per rectum as well as left-sided abdominal pain. Was found to have a large bleeding polyp versus mass in the right colon. Biopsy demonstrated villous adenoma with ongoing bleeding needing partial colectomy. Hospital stay has however been complicated by COVID-19 infection as well as pulmonary embolism. Patient was found to have leukocytosis on the morning of 09/04/2024 subsequent imaging studies demonstrated pneumonia necessitating patient being started on antibiotics and her anticipated surgery postponed indefinitely pending stabilization medically Objective Data Objective Data Vital Signs: Vital Signs Temp Pulse Resp BP Pulse Ox O2 Del Method O2 Flow Rate 97.0 F L 63 20 H 128/65 H 96 Room Air 2 09/04/24 09:25 09/04/24 09:25 09/04/24 09:25 09/04/24 09:25 09/04/24 09:25 09/04/24 09:25 09/04/24 06:17 FiO2 35 09/02/24 03:38 Oxygen Flow Rate (L/min) 2 Oxygen Delivery Method Room Air Weight: 84.2 kg Body Mass Index (BMI) 29.8 Intake & Output: Intake and Output for Last 24 Hours 09/02/24 09/03/24 09/04/24 23:59 23:59 23:59 Intake Total 970 / 970 870 / 870 Output Total 600 / 600 800 / 800 Balance 370 / 370 70 / 70 Lab / Micro Data 09/04/24 05:27 09/04/24 05:27 Labs: Laboratory Results - last 24 hr 09/03/24 09:30: WBC 9.7, RBC 3.10 L, Hgb 9.3 L, Hct 28.8 L, MCV 92.9, MCH 30.0, MCHC 32.3, RDW Std Deviation 48.0 H, RDW Coeff of Taina 14.5, Plt Count 218, MPV 10.1, Immature Gran % (Auto) 0.600, Neut % (Auto) 79.3 H, Lymph % (Auto) 13.0 L, [place] % (Auto) 7.1, Eos % (Auto) 0.0, Baso % (Auto) 0.0, Absolute Neuts (auto) 7.7, Absolute Lymphs (auto) 1.26, Nucleated RBC % 0, Sodium 139, Potassium 3.4 L , Chloride 111 H, Carbon Dioxide 20.0 L, Anion Gap 9, BUN 31 H, Creatinine 0.92, Estim Creat Clear Calc 47.16, Est GFR (MDRD) Af Amer 74, Est GFR (MDRD) Non-Af 61, BUN/Creatinine Ratio 33.7 H, Glucose 159 H, Calcium 8.5 09/03/24 11:13: POC Glucose 143 H 09/03/24 16:11: POC Glucose 183 H 09/04/24 05:27: WBC 20.6 H, RBC 3.13 L, Hgb 9.4 L, Hct 29.1 L, MCV 93.0, MCH 30.0, MCHC 32.3, RDW Std Deviation 49.3 H, RDW Coeff of Taina 14.6, Plt Count 243, MPV 10.7, PT 15.6 H, INR 1.2, APTT 25.7, Sodium 140, Potassium 3.7, Chloride 110 H, Carbon Dioxide 21.0, Anion Gap 9, BUN 23 H, Creatinine 0.75, Estim Creat Clear Calc 54.17, Est GFR (MDRD) Af Amer 94, Est GFR (MDRD) Non-Af 78, B UN/Creatinine Ratio 30.7 H, Glucose 107 H, Hemoglobin A1c 5.5, Calcium 8.7 09/04/24 06:14: POC Glucose 101 Micro: Microbiology 08/31/24 09:50 Mucosa - Nose SARS-CoV-2, Influenza & RSV (PCR) - Final SARS-CoV-2 (COVID 19 PCR) 08/26/24 14:17 Stool Stool Lactoferrin - Final 08/26/24 14:17 Stool Enteric Bacteriology - Final Radiography Diagnostic Testing: Radiology Impression Chest X-Ray 09/04/24 07:45 IMPRESSION: Indeterminate opacity within the left lower lung, may be partially secondary to a confluence of shadows, atelectasis and/or pneumonia. Minimal atelectasis and/or pneumonia within the right lower lung. Electronically Signed: Zaina Cabrera MD at 8:05 EDT , Physical Exam Narrative GENERAL: cooperative HEENT: Atraumatic; normocephalic EYES; Anicteric, Normal Conjunctiva NECK; supple, normal thyroid, RESPIRATORY: Diminished to auscultation CARDIOVASCULAR: Regular S1 S2, GI: soft, normoactive bowel sounds, : No Renal angle tenderness; EXTREMITIES: No edema, no clubbing, MUSCULOSKELETAL: no muscle wasting NEURO: Awake; no lateralizing signs. SKIN: No Rash PSYCH; Flat affect Assessment & Plan Assessment/Plan (1) Abdominal pain: (2) Lower GI bleed: (3) Neoplasm of ascending colon: PLAN: Plan Patient is an 89-year-old lady who was admitted with bleeding per rectum as well as left-sided abdominal pain. Was found to have a large bleeding polyp versus mass in the right colon. Biopsy demonstrated villous adenoma with ongoing bleeding needing partial colectomy. Hospital stay has however been complicated by COVID-19 infection as well as pulmonary embolism. Patient was found to have leukocytosis on the morning of 09/04/2024 subsequent imaging studies demonstrated pneumonia necessitating patient being started on antibiotics and her anticipated surgery postponed indefinitely pending stabilization medically 1. Lower GI bleed ? Patient was found to have a large bleeding villous adenoma on colonoscopy performed on 08/28/2024. General surgery was consulted plan was for patient to have undergone bowel resection however given her ongoing medical issues decision was made to place any surgical intervention on hold indefinitely. Patient also had CT of the abdomen and pelvis which was unremarkable for metastatic disease 2. Acute on chronic anemia ?Patient has been transfused with 3 unit PRBC since admission 3. Acute hypoxic respiratory failure ? Multifactorial including bilateral pulmonary embolism COVID 19 as well as superimposed bacterial pneumonia 4. COVID-19 pneumonia ? Patient was managed with Decadron as well as remdesivir 5. Bilateral pulmonary embolism ? Per stated by patient COVID-19 infection. Patient was deemed not a candidate for systemic anticoagulation given her active bleeding. Patient underwent IVC filter placement by Dr. Kumar on 08/31/2024 6. Chronic congestive heart failure with preserved ejection fraction ? With preserved ejection fraction. Currently euvolemic. Echo from 01/13/2022 demonstrated EF of 65%. Patient is on furosemide 7. pneumonia - Suspected to be secondary to gram-negative and gram-positive's, Blood and sputum cultures sent. Patient placed on Levaquin as well as vancomycin and placed on oxygen titrated to keep Pulse Ox greater than 90 8. Acute vertigo ? Treated symptomatically with meclizine 9. Hypertension ? Blood pressure controlled, home medications continued with dose adjustment as needed 10. Dyslipidemia ?Patient is on statin therapy, continued at home dose 11. History of previous CVA ? Patient is on Plavix which is currently being held given her active bleeding 12. GERD ? On PPI Time spent in the patient's overall evaluation,decision-making process, review of diagnostic data, adjustment of management, discussion with other providers, nursing nursing and ancillary staff involved in patient's care documentation, 52 Minutes. Charges/Coding Visit Charges Inpatient E&M: 17655 [facility] L3
[2024-09-04] MEDS: Remdesivir 100 MG in 0.9% Normal Saline (250mL Bag) 230 ML 250 MG IV (10:01)
[2024-09-04 10:54] LABS: Bacteria 0 SEEN /hpf (None Seen); Mucous, Urine 0 SEEN /hpf (<or=2+); Red Blood Cells-Urine 0 SEEN /hpf (0-5); Squamous Epithelial Cells - UA 0 SEEN /hpf (5-10)
[2024-09-04 11:11] LABS: Color, Urine Yellow (Yellow); Glucose, Dipstick Normal (Normal); Ketone-Dipstick Negative (Negative); Leukocyte Esterase-Dipstick 25 /ul (Negative); Nitrite-Dipstick Negative (Negative); Occult Blood-Urine Negative /ul (Negative); Protein-Dipstick 15 mg/dl (Negative); Urine Bilirubin Dipstick Negative (Negative); Urine Clarity Sl. Cloudy (Clear); Urine Urobilinogen Normal (Normal)
--- NOTE | 2024-09-04 11:17 | PN.SURG_ITS ---
Subjective Subjective Patient is still not feeling well and reports that she is feeling worse than yesterday. Objective Data Objective Data Vital Signs: Vital Signs Temp Pulse Resp BP Pulse Ox O2 Del Method O2 Flow Rate 97.0 F L 63 20 H 128/65 H 96 Room Air 2 09/04/24 09:25 09/04/24 09:25 09/04/24 09:25 09/04/24 09:25 09/04/24 09:25 09/04/24 10:00 09/04/24 06:17 FiO2 35 09/02/24 03:38 Oxygen Flow Rate (L/min) 2 Oxygen Delivery Method Room Air Weight: 185 lb 10.067 oz Body Mass Index (BMI) 29.8 Intake & Output: Intake and Output for Last 24 Hours 09/02/24 09/03/24 09/04/24 23:59 23:59 23:59 Intake Total 970 / 970 870 / 870 110 / 110 Output Total 600 / 600 800 / 800 Balance 370 / 370 70 / 70 110 / 110 Lab / Micro Data 09/04/24 05:27 09/04/24 05:27 Labs: Laboratory Results - last 24 hr 09/03/24 11:13: POC Glucose 143 H 09/03/24 16:11: POC Glucose 183 H 09/04/24 05:27: WBC 20.6 H, RBC 3.13 L, Hgb 9.4 L, Hct 29.1 L, MCV 93.0, MCH 30.0, MCHC 32.3, RDW Std Deviation 49.3 H, RDW Coeff of Taina 14.6, Plt Count 243, MPV 10.7, PT 15.6 H, INR 1.2, APTT 25.7, Sodium 140, Potassium 3.7, Chloride 110 H, Carbon Dioxide 21.0, Anion Gap 9, BUN 23 H, Creatinine 0.75, Estim Creat Clear Calc 54.17, Est GFR (MDRD) Af Amer 94, Est GFR (MDRD) Non-Af 78, B UN/Creatinine Ratio 30.7 H, Glucose 107 H, Hemoglobin A1c 5.5, Calcium 8.7 09/04/24 06:14: POC Glucose 101 09/04/24 10:00: Urine Color Yellow, Urine Clarity Sl. Cloudy, Urine pH 6.0, Ur Specific [place] 1.020, Urine Protein 15 H, Urine Glucose (UA) Normal, Urine Ketones Negative, Urine Occult Blood Negative, Urine Nitrite Negative, Urine Bilirubin Negative, Urine Urobilinogen Normal, Ur Leukocyte Esterase 25 H Micro: Microbiology 08/31/24 09:50 Mucosa - Nose SARS-CoV-2, Influenza & RSV (PCR) - Final SARS-CoV-2 (COVID 19 PCR) 08/26/24 14:17 Stool Stool Lactoferrin - Final 08/26/24 14:17 Stool Enteric Bacteriology - Final Radiography Diagnostic Testing: Radiology Impression Chest X-Ray 09/04/24 07:45 IMPRESSION: Indeterminate opacity within the left lower lung, may be partially secondary to a confluence of shadows, atelectasis and/or pneumonia. Minimal atelectasis and/or pneumonia within the right lower lung. Electronically Signed: Zaina Cabrera MD at 8:05 EDT , Physical Exam Const oriented x3 and no apparent distress Resp normal respiratory effort GI soft to palpation and non-tender Assessment & Plan Assessment/Plan (1) Neoplasm of ascending colon: PLAN: The patient's white count increased to 20 today from 8 yesterday. Chest x-ray was obtained which showed possible pneumonia on the right. Given the fact that her white count is increasing and she is being started on antibiotics I to discuss this with Dr. Hodges and we both agreed to delay her surgery as her main issue is the COVID at this point not the bleeding. I will reschedule for after which she is healthy from her COVID infection and the pneumonia has resolved. Brian Calvin MD Pager: [facility] [address] [place] [address], [address] [place] [address] Office:
[2024-09-04 11:19] LABS: White Blood Cells 0-5 SEEN /hpf (0-5); Yeast-Urine 2+ /hpf (None Seen)
[2024-09-04] MEDS: Loratadine 10 MG Tablet PO (11:22)
[2024-09-04] MEDS: Fluticasone 0.05% 1 SPRAY NASAL.SRY 2 SPRAY NASAL (11:23)
[2024-09-04] MEDS: Atorvastatin Calcium 10 MG Tablet PO (11:23)
[2024-09-04] MEDS: dexAMETHasone 10 MG/ML Vial 6 MG IV (11:24)
[2024-09-04] MEDS: Nystatin Powder 15gm Bottle 1 APPLIC TOPICAL ×2 (11:25→19:52)
[2024-09-04] MEDS: levoFLOXacin IV 750 MG/150 ML BAG 100 MG IV (11:25)
[2024-09-04 12:05] LABS: Bedside Glucose 85 mg/dL (74-106)
[2024-09-04] MEDS: Meclizine HCl 25 MG Tablet PO (14:17)
[2024-09-04] MEDS: Acetaminophen 325 MG Tablet 650 MG PO ×2 (14:17→20:51)
[2024-09-04] MEDS: Vancomycin HCl 1,250 MG in 0.9% Normal Saline (250mL Bag) 250 ML 167 MG IV (14:23)
--- NOTE | 2024-09-04 14:32 | PCM.RX.CS ---
Consult Antibiotic Management Pharmacy has been consulted to manage selected antibiotic: Vancomycin Type of Intervention Type of Consult: New start Suspected Infection Suspected Infection: Pneumonia Prior Doses of Antibiotics Prior Doses of Antibiotics Received/Current Regimen: Vancomycin 1250 mg IV x1 loading dose given 09/04/24 @ 1423 Labs Labs: Sodium 140 mmol/L (136-145) 09/04/24 05:27 Potassium 3.7 mmol/L (3.5-5.1) 09/04/24 05:27 Chloride 110 mmol/L (98-107) H 09/04/24 05:27 Carbon Dioxide 21.0 mmol/L (21.0-32.0) 09/04/24 05:27 Anion Gap 9 (5-15) 09/04/24 05:27 BUN 23 mg/dL (7-18) H 09/04/24 05:27 Creatinine 0.75 mg/dL (0.55-1.02) 09/04/24 05:27 Est GFR (MDRD) Af Amer 94 mL/min (>60) 09/04/24 05:27 Est GFR (MDRD) Non-Af 78 mL/min (>60) 09/04/24 05:27 BUN/Creatinine Ratio 30.7 RATIO (10-20) H 09/04/24 05:27 Glucose 107 mg/dL (74-106) H 09/04/24 05:27 Microbiology Microbiology: Microbiology 09/04/24 10:00 Nasal Secretion MRSA (PCR) - Final 09/04/24 09:45 Stool Clostridioides difficile (PCR) - Final 08/31/24 09:50 Mucosa - Nose SARS-CoV-2, Influenza & RSV (PCR) - Final SARS-CoV-2 (COVID 19 PCR) 08/26/24 14:17 Stool Stool Lactoferrin - Final 08/26/24 14:17 Stool Enteric Bacteriology - Final Dosing Weight Weight used for dosin kg Estimated Creatinine Clearance Estimated Creatinine Clearance: ~54 Goal Trough Goal Trough: 15-20 mcg/mL Pharmacy Plan for Drug Dosing Pharmacy Plan for Drug Dosing: Vancomycin 1250 mg IV x 1 loading dose followed by 750 mg q12h. Pharmacy Service will continue to monitor and adjust dosing as required. Follow-Up Labs Follow-Up Labs: Trough: Vancomycin Date/Time Labs Ordered Labs to be done on [date and time ordered]: 09/06/24 @ 0200
--- NOTE | 2024-09-04 15:01 | CASEMGMT ---
Addendum entered by Melisa Abraham 09/04/24 15:04: SW attempted to call patient's son Cuong to notify him TCU can take patient, but there was no answer. VICKY will continue to follow. Melisa OLMSTEAD Original Note: TCU will now be able to take patient when she is medically ready. Melisa OLMSTEAD
[2024-09-04] MEDS: Insulin Lispro 100 UNIT/ML INSULN.PEN SC (16:26)
[2024-09-04 16:46] LABS: Bedside Glucose 158 mg/dL (74-106)
[2024-09-04] MEDS: 0.9% Saline Lock 10 ML Syringe IV (19:52)
[2024-09-04 21:26] LABS: Bedside Glucose 150 mg/dL (74-106)
[2024-09-05] MEDS: Vancomycin HCl 750 MG in 0.9% Normal Saline (250mL Bag) 250 ML 250 MG IV ×2 (02:15→13:38)
[2024-09-05] MEDS: 0.9% Saline Lock 10 ML Syringe IV ×2 (02:15→09:05)
[2024-09-05 02:44] VITALS: BP 131/59; PULSE 70; RESP 18; TEMP 36.2; O2SAT 97
[2024-09-05] MEDS: Menthol/Lanolin/Calamine/Znox 113 GM Tube 1 APPLIC TOPICAL ×3 (06:09→23:35)
[2024-09-05 06:28] LABS: Bedside Glucose 144 mg/dL (74-106)
--- NOTE | 2024-09-05 06:42 | ANES.CONFIRM ---
Anesthesia: Confirm Documents Multiple Procedures on Account (2) Confirmed Documents: Yes
[2024-09-05 07:12] LABS: Absolute Lymphocyte Count 1.13 X10^3/uL (0.83-4.51); Absolute Neutrophil Count 9.1 X10^3/uL (2.0-7.7); Basophil# 0.01 X10^3/uL; Basophil% 0.1 % (0-1); Hematocrit 25.4 % (37-47); Hemoglobin 8.5 g/dL (12.0-15.0); Lymphocyte # 1.13 X10^3/ul (0.83-4.51); Lymphocyte % 10.1 % (19-41); Mean Corp Hgb Conc 33.5 g/dL (32-36); Mean Corpuscular Hgb 30.9 pg (27.0-32.0); Mean Corpuscular Volume 92.4 fL (81-99); Mean Platelet Vol. 10.2 fl (6.2-12.0); Monocyte# 0.92 X10^3/uL; Monocyte% 8.2 % (0-10); NRBC Flagged by Analyzer 0 % (0-5); Neutrophil # 9.05 X10^3/uL (2.7-7.7); Neutrophil % 80.4 % (47-70); Platelet Count 217 K/mm3 (150-450); RBC Distribution Width CV 14.6 % (11.6-14.6); RBC Distribution Width SD 48.6 fl (35.1-43.9); Red Blood Count 2.75 M/mm3 (4.2-5.4); White Blood Count 11.2 K/mm3 (4.4-11.0)
[2024-09-05 07:24] LABS: Anion Gap 7 (5-15); BUN 21 mg/dL (7-18); BUN/Creat Ratio 26.5 RATIO (10-20); Chloride 114 mmol/L (98-107); Creatinine, Serum 0.79 mg/dL (0.55-1.02); EST Glomerular Filtration Rate 73 mL/min (>60); Est Glom Filt Rate - Afr Amer 88 mL/min (>60); Estimated Creatinine Clearance 54.23 ml/min; Glucose 133 mg/dL (74-106); Potassium 3.3 mmol/L (3.5-5.1); Sodium Level 141 mmol/L (136-145)
--- NOTE | 2024-09-05 07:40 | PCM.PN.SRG ---
Subjective Subjective Patient evaluated resting comfortably in bed. She appears to look unwell. She notes having abdominal pain all over her abdomen. Objective Data Objective Data Vital Signs: Vital Signs Temp Pulse Resp BP Pulse Ox O2 Del Method O2 Flow Rate 97.1 F L 70 18 131/59 H 97 Room Air 2 09/05/24 02:44 09/05/24 02:44 09/05/24 02:44 09/05/24 02:44 09/05/24 02:44 09/05/24 02:44 09/04/24 06:17 FiO2 35 09/02/24 03:38 Oxygen Flow Rate (L/min) 2 Oxygen Delivery Method Room Air Weight: 186 lb 1.122 oz Body Mass Index (BMI) 30.0 Intake & Output: Intake and Output for Last 24 Hours 09/03/24 09/04/24 09/05/24 23:59 23:59 23:59 Intake Total 870 / 870 895 / 895 265 / 265 Output Total 800 / 800 Balance 70 / 70 895 / 895 265 / 265 Lab / Micro Data 09/05/24 07:03 09/05/24 07:03 Labs: Laboratory Results - last 24 hr 09/04/24 05:27: Sodium 140, Potassium 3.7, Chloride 110 H, Carbon Dioxide 21.0, Anion Gap 9, BUN 23 H, Creatinine 0.75, Estim Creat Clear Calc 54.17, Est GFR (MDRD) Af Amer 94, Est GFR (MDRD) Non-Af 78, BUN/Creatinine Ratio 30.7 H, Glucose 107 H, Hemoglobin A1c 5.5, Calcium 8.7 09/04/24 10:00: Urine Color Yellow, Urine Clarity Sl. Cloudy, Urine pH 6.0, Ur Specific [place] 1.020, Urine Protein 15 H, Urine Glucose (UA) Normal, Urine Ketones Negative, Urine Occult Blood Negative, Urine Nitrite Negative, Urine Bilirubin Negative, Urine Urobilinogen Normal, Ur Leukocyte Esterase 25 H, Urine RBC 0 SEEN, Urine WBC 0-5 SEEN, Ur Squamous Epith Cells 0 SEEN, Urine Bacteria 0 SEEN, Urine Mucus 0 SEEN, Urine Yeast 2+ 09/04/24 11:43: POC Glucose 85 09/04/24 16:25: POC Glucose 158 H 09/04/24 20:50: POC Glucose 150 H 09/05/24 06:10: POC Glucose 144 H 09/05/24 07:03: WBC 11.2 H, RBC 2.75 L, Hgb 8.5 L, Hct 25.4 L, MCV 92.4, MCH 30.9, MCHC 33.5, RDW Std Deviation 48.6 H, RDW Coeff of Taina 14.6, Plt Count 217, MPV 10.2, Immature Gran % (Auto) 1.200 H, Neut % (Auto) 80.4 H, Lymph % (Auto) 10.1 L, [place] % (Auto) 8.2, Eos % (Auto) 0.0, Baso % (Auto) 0.1, Absolute Neuts (auto) 9.1 H, Absolute Lymphs (auto) 1.13, Nucleated RBC % 0, Sodium 141, Potassium 3.3 L, Chloride 114 H, Carbon Dioxide 20.0 L, Anion Gap 7, BUN 21 H, Creatinine 0.79, Estim Creat Clear Calc 54.23, Est GFR (MDRD) Af Amer 88, Est GFR (MDRD) Non-Af 73, BUN/Creatinine Ratio 26.5 H, Glucose 133 H, Calcium 8.0 L Micro: Microbiology 09/04/24 10:00 Nasal Secretion MRSA (PCR) - Final 09/04/24 09:45 Stool Clostridioides difficile (PCR) - Final 08/31/24 09:50 Mucosa - Nose SARS-CoV-2, Influenza & RSV (PCR) - Final SARS-CoV-2 (COVID 19 PCR) 08/26/24 14:17 Stool Stool Lactoferrin - Final 08/26/24 14:17 Stool Enteric Bacteriology - Final Radiography Diagnostic Testing: Radiology Impression Chest X-Ray 09/04/24 07:45 IMPRESSION: Indeterminate opacity within the left lower lung, may be partially secondary to a confluence of shadows, atelectasis and/or pneumonia. Minimal atelectasis and/or pneumonia within the right lower lung. Electronically Signed: Zaina Cabrera MD at 8:05 EDT , Physical Exam GI GI Narrative: Abdomen- soft, tenderness to palpation. Assessment & Plan Assessment/Plan (1) Neoplasm of ascending colon: PLAN: I am following this patient in conjunction with Dr. Calvin. He has independently evaluated this patient. Labs reviewed. WBC went from 20.6 down to 11.2 today Continue to hold off on proceeding with the colectomy until patient is overall feeling better We will continue to monitor this patient Charges/Coding Visit Charges Inpatient E&M: [address] [facility] L1
[2024-09-05] MEDS: Albuterol 2.5 MG/3 ML VIAL.NEB. INHALATION ×2 (07:49→20:05)
[2024-09-05] MEDS: Budesonide Respules 0.5 MG/2 ML AMPUL.NEB. INHALATION ×2 (07:49→20:05)
[2024-09-05 07:50] VITALS: PULSE 67; RESP 18; O2SAT 94
[2024-09-05 08:54] VITALS: BP 138/64; PULSE 71; RESP 23; TEMP 36.1; O2SAT 92
[2024-09-05] MEDS: levoFLOXacin IV 750 MG/150 ML BAG 100 MG IV (09:02)
[2024-09-05] MEDS: dexAMETHasone 10 MG/ML Vial 6 MG IV (09:02)
[2024-09-05] MEDS: Atorvastatin Calcium 10 MG Tablet PO (09:05)
[2024-09-05] MEDS: Loratadine 10 MG Tablet PO (09:05)
[2024-09-05] MEDS: Atenolol 50 MG Tablet PO (09:05)
[2024-09-05] MEDS: Isosorbide Mononitrate 60 MG Tablet PO (09:05)
[2024-09-05] MEDS: Fluticasone 0.05% 1 SPRAY NASAL.SRY 2 SPRAY NASAL (09:05)
[2024-09-05] MEDS: Nystatin Powder 15gm Bottle 1 APPLIC TOPICAL ×2 (09:06→23:36)
[2024-09-05 11:32] LABS: Bedside Glucose 140 mg/dL (74-106)
[2024-09-05] MEDS: Pantoprazole Sodium 40 MG in 0.9% Normal Saline (100mL MB+) 100 ML 330 MG IV ×2 (12:14→22:40)
--- NOTE | 2024-09-05 13:17 | PCM.PN.HOSP ---
Reason for Visit Reason for Visit: Diagnoses Neoplasm of unspecified behavior of digestive system (08/25/24) Multiple subsegmental thrombotic pulmonary emboli without acute cor pulmonale (08/25/24) Gastrointestinal hemorrhage, unspecified (08/25/24) Unspecified abdominal pain (08/25/24) Subjective Subjective Patient seen much more awake and interactive. WBC count did drop to 11, hemoglobin did drop from 9.4 to 8.5. Objective Data Objective Data Vital Signs: Vital Signs Temp Pulse Resp BP Pulse Ox O2 Del Method O2 Flow Rate 96.9 F L 71 23 H 138/64 H 92 Room Air 2 09/05/24 08:54 09/05/24 08:54 09/05/24 08:54 09/05/24 08:54 09/05/24 08:54 09/05/24 09:44 09/04/24 06:17 FiO2 35 09/02/24 03:38 Oxygen Flow Rate (L/min) 2 Oxygen Delivery Method Room Air Weight: 84.4 kg Body Mass Index (BMI) 30.0 Intake & Output: Intake and Output for Last 24 Hours 09/03/24 09/04/24 09/05/24 23:59 23:59 23:59 Intake Total 870 / 870 895 / 895 265 / 265 Output Total 800 / 800 Balance 70 / 70 895 / 895 265 / 265 Lab / Micro Data 09/05/24 07:03 09/05/24 07:03 Labs: Laboratory Results - last 24 hr 09/04/24 16:25: POC Glucose 158 H 09/04/24 20:50: POC Glucose 150 H 09/05/24 06:10: POC Glucose 144 H 09/05/24 07:03: WBC 11.2 H, RBC 2.75 L, Hgb 8.5 L, Hct 25.4 L, MCV 92.4, MCH 30.9, MCHC 33.5, RDW Std Deviation 48.6 H, RDW Coeff of Taina 14.6, Plt Count 217, MPV 10.2, Immature Gran % (Auto) 1.200 H, Neut % (Auto) 80.4 H, Lymph % (Auto) 10.1 L, [place] % (Auto) 8.2, Eos % (Auto) 0.0, Baso % (Auto) 0.1, Absolute Neuts (auto) 9.1 H, Absolute Lymphs (auto) 1.13, Nucleated RBC % 0, Sodium 141, Potassium 3.3 L, Chloride 114 H, Carbon Dioxide 20.0 L, Anion Gap 7, BUN 21 H, Creatinine 0.79, Estim Creat Clear Calc 54.23, Est GFR (MDRD) Af Amer 88, Est GFR (MDRD) Non-Af 73, BUN/Creatinine Ratio 26.5 H, Glucose 133 H, Calcium 8.0 L 09/05/24 11:10: POC Glucose 140 H Micro: Microbiology 09/04/24 10:00 Nasal Secretion MRSA (PCR) - Final 09/04/24 09:45 Stool Clostridioides difficile (PCR) - Final 08/31/24 09:50 Mucosa - Nose SARS-CoV-2, Influenza & RSV (PCR) - Final SARS-CoV-2 (COVID 19 PCR) 08/26/24 14:17 Stool Stool Lactoferrin - Final 08/26/24 14:17 Stool Enteric Bacteriology - Final Physical Exam Narrative GENERAL: cooperative HEENT: Atraumatic; normocephalic EYES; Anicteric, Normal Conjunctiva NECK; supple, normal thyroid, RESPIRATORY: Diminished to auscultation CARDIOVASCULAR: Regular S1 S2, GI: soft, normoactive bowel sounds, : No Renal angle tenderness; EXTREMITIES: No edema, no clubbing, MUSCULOSKELETAL: no muscle wasting NEURO: Awake; no lateralizing signs. SKIN: No Rash PSYCH; Flat affect Assessment & Plan Assessment/Plan (1) Abdominal pain: (2) Lower GI bleed: (3) Neoplasm of ascending colon: PLAN: Plan Patient is an 89-year-old lady who was admitted with bleeding per rectum as well as left-sided abdominal pain. Was found to have a large bleeding polyp versus mass in the right colon. Biopsy demonstrated villous adenoma with ongoing bleeding needing partial colectomy. Hospital stay has however been complicated by COVID-19 infection as well as pulmonary embolism. Patient was found to have leukocytosis on the morning of 09/04/2024 subsequent imaging studies demonstrated pneumonia necessitating patient being started on antibiotics and her anticipated surgery postponed indefinitely pending stabilization medically 1. Lower GI bleed ? Patient was found to have a large bleeding villous adenoma on colonoscopy performed on 08/28/2024. General surgery was consulted plan was for patient to have undergone bowel resection however given her ongoing medical issues decision was made to place any surgical intervention on hold indefinitely. Patient also had CT of the abdomen and pelvis which was unremarkable for metastatic disease ? 09/06/2024; hemoglobin did drop from 9.4-8.5. Case was discussed with Dr. Calvin with general surgery. With patient clinical condition improving patient surgery has tentatively been scheduled for 09/11/2024 2. Acute on chronic anemia ?Patient has been transfused with 3 unit PRBC since admission ? 09/06/2024; hemoglobin down to 8.5 we will continue with monitoring 3. Acute hypoxic respiratory failure ? Multifactorial including bilateral pulmonary embolism COVID 19 as well as superimposed bacterial pneumonia 4. COVID-19 pneumonia ? Patient was managed with Decadron as well as remdesivir 5. Bilateral pulmonary embolism ? Per stated by patient COVID-19 infection. Patient was deemed not a candidate for systemic anticoagulation given her active bleeding. Patient underwent IVC filter placement by Dr. Kumar on 08/31/2024 6. Chronic congestive heart failure with preserved ejection fraction ? With preserved ejection fraction. Currently euvolemic. Echo from 01/13/2022 demonstrated EF of 65%. Patient is on furosemide 7. Pneumonia - Suspected to be secondary to gram-negative and gram-positive's, Blood and sputum cultures sent. Patient placed on Levaquin as well as vancomycin and placed on oxygen titrated to keep Pulse Ox greater than 90 ? 09/05/2024; patient improving clinically in addition WBC count is trending down we will continue with with the current antibiotic therapy including vancomycin and levofloxacin 8. Acute vertigo ? Treated symptomatically with meclizine 9. Hypertension ? Blood pressure controlled, home medications continued with dose adjustment as needed 10. Dyslipidemia ?Patient is on statin therapy, continued at home dose 11. History of previous CVA ? Patient is on Plavix which is currently being held given her active bleeding 12. GERD ? On PPI 13. Hypokalemia ? Corrected per protocol repeat labs ordered for a.m. Time spent in the patient's overall evaluation,decision-making process, review of diagnostic data, adjustment of management, discussion with other providers, nursing nursing and ancillary staff involved in patient's care documentation, 50 Minutes. Charges/Coding Visit Charges Inpatient E&M: 33610 [facility] Hosp L3
[2024-09-05 15:00] VITALS: BP 133/63; PULSE 69; RESP 23; TEMP 36.1; O2SAT 95
[2024-09-05] MEDS: Insulin Lispro 100 UNIT/ML INSULN.PEN SC (16:23)
[2024-09-05] MEDS: Potassium Chloride Oral Tablet 20 MEQ PO (16:25)
[2024-09-05 16:56] LABS: Bedside Glucose 157 mg/dL (74-106)
[2024-09-05 20:05] VITALS: PULSE 68; RESP 22; O2SAT 98
--- NOTE | 2024-09-05 20:05 | CPS ---
Pt refused BiPAP for tonight
[2024-09-05 21:00] VITALS: BP 146/65; PULSE 66; RESP 15; TEMP 36.5; O2SAT 98
[2024-09-06 02:53] LABS: Vancomycin, Trough Level 14.7 ug/mL (5.0-15.0)
[2024-09-06 03:00] VITALS: BP 137/69; PULSE 72; RESP 17; TEMP 36.1; O2SAT 97
--- NOTE | 2024-09-06 03:05 | PCM.RX.CS ---
Consult Antibiotic Management Pharmacy has been consulted to manage selected antibiotic: Vancomycin Type of Intervention Type of Consult: Follow-up Suspected Infection Suspected Infection: Pneumonia Labs Labs: Sodium 141 mmol/L (136-145) 09/05/24 07:03 Potassium 3.3 mmol/L (3.5-5.1) L 09/05/24 07:03 Chloride 114 mmol/L (98-107) H 09/05/24 07:03 Carbon Dioxide 20.0 mmol/L (21.0-32.0) L 09/05/24 07:03 Anion Gap 7 (5-15) 09/05/24 07:03 BUN 21 mg/dL (7-18) H 09/05/24 07:03 Creatinine 0.79 mg/dL (0.55-1.02) 09/05/24 07:03 Est GFR (MDRD) Af Amer 88 mL/min (>60) 09/05/24 07:03 Est GFR (MDRD) Non-Af 73 mL/min (>60) 09/05/24 07:03 BUN/Creatinine Ratio 26.5 RATIO (10-20) H 09/05/24 07:03 Glucose 133 mg/dL (74-106) H 09/05/24 07:03 Vancomycin Trough 14.7 ug/mL (5.0-15.0) 09/06/24 02:15 Microbiology Microbiology: Microbiology 09/04/24 10:00 Nasal Secretion MRSA (PCR) - Final 09/04/24 09:45 Stool Clostridioides difficile (PCR) - Final 08/31/24 09:50 Mucosa - Nose SARS-CoV-2, Influenza & RSV (PCR) - Final SARS-CoV-2 (COVID 19 PCR) 08/26/24 14:17 Stool Stool Lactoferrin - Final 08/26/24 14:17 Stool Enteric Bacteriology - Final Dosing Weight Weight used for dosin.4 kg Estimated Creatinine Clearance Estimated Creatinine Clearance: 54 Goal Trough Goal Trough: 15-20 mcg/mL Pharmacy Plan for Drug Dosing Pharmacy Plan for Drug Dosing: Vancomycin trough level of 14.7, drawn 12.5hrs post-dose, was nearly at the target range of 15-20. Will continue dosing at 750mg q12h, and will draw another trough level in two days. Pharmacy Service will continue to monitor and adjust dosing as required. Follow-Up Labs Follow-Up Labs: Trough: Vancomycin Date/Time Labs Ordered Labs to be done on [date and time ordered]: 09/08/24 @0205
[2024-09-06] MEDS: Vancomycin HCl 750 MG in 0.9% Normal Saline (250mL Bag) 250 ML 250 MG IV ×2 (03:17→13:08)
[2024-09-06 04:57] VITALS: BMI 29.9
[2024-09-06] MEDS: Menthol/Lanolin/Calamine/Znox 113 GM Tube 1 APPLIC TOPICAL ×3 (07:00→21:00)
[2024-09-06 07:18] LABS: Bedside Glucose 110 mg/dL (74-106)
[2024-09-06] MEDS: Budesonide Respules 0.5 MG/2 ML AMPUL.NEB. INHALATION ×2 (07:41→19:49)
[2024-09-06] MEDS: Albuterol 2.5 MG/3 ML VIAL.NEB. INHALATION ×2 (07:41→19:49)
[2024-09-06 07:42] VITALS: PULSE 72; RESP 18; O2SAT 98
--- NOTE | 2024-09-06 09:23 | PCM.PN.HOSP ---
Reason for Visit Reason for Visit: Diagnoses Neoplasm of unspecified behavior of digestive system (08/25/24) Multiple subsegmental thrombotic pulmonary emboli without acute cor pulmonale (08/25/24) Gastrointestinal hemorrhage, unspecified (08/25/24) Unspecified abdominal pain (08/25/24) Subjective Subjective Patient seen continues to improve clinically. Did discuss with general surgery today prior patient surgery tentatively scheduled for 09/11/2022 Objective Data Objective Data Vital Signs: Vital Signs Temp Pulse Resp BP Pulse Ox O2 Del Method O2 Flow Rate 96.9 F L 72 18 137/69 H 98 Room Air 2 09/06/24 03:00 09/06/24 07:42 09/06/24 07:42 09/06/24 03:00 09/06/24 07:42 09/06/24 07:42 09/04/24 06:17 FiO2 35 09/02/24 03:38 Oxygen Flow Rate (L/min) 2 Oxygen Delivery Method Room Air Weight: 84 kg Body Mass Index (BMI) 29.9 Intake & Output: Intake and Output for Last 24 Hours 09/04/24 09/05/24 09/06/24 23:59 23:59 23:59 Intake Total 895 / 895 900 / 1020 505 / 505 Balance 895 / 895 900 / 1020 505 / 505 Lab / Micro Data 09/05/24 07:03 09/05/24 07:03 Labs: Laboratory Results - last 24 hr 09/05/24 11:10: POC Glucose 140 H 09/05/24 16:22: POC Glucose 157 H 09/06/24 02:15: Vancomycin Trough 14.7 09/06/24 06:58: POC Glucose 110 H Micro: Microbiology 09/04/24 10:00 Nasal Secretion MRSA (PCR) - Final 09/04/24 09:45 Stool Clostridioides difficile (PCR) - Final 08/31/24 09:50 Mucosa - Nose SARS-CoV-2, Influenza & RSV (PCR) - Final SARS-CoV-2 (COVID 19 PCR) 08/26/24 14:17 Stool Stool Lactoferrin - Final 08/26/24 14:17 Stool Enteric Bacteriology - Final Physical Exam Narrative GENERAL: cooperative HEENT: Atraumatic; normocephalic EYES; Anicteric, Normal Conjunctiva NECK; supple, normal thyroid, RESPIRATORY: Diminished to auscultation CARDIOVASCULAR: Regular S1 S2, GI: soft, normoactive bowel sounds, : No Renal angle tenderness; EXTREMITIES: No edema, no clubbing, MUSCULOSKELETAL: no muscle wasting NEURO: Awake; no lateralizing signs. SKIN: No Rash PSYCH; Flat affect Assessment & Plan Assessment/Plan (1) Abdominal pain: (2) Lower GI bleed: (3) Neoplasm of ascending colon: PLAN: Plan Patient is an 89-year-old lady who was admitted with bleeding per rectum as well as left-sided abdominal pain. Was found to have a large bleeding polyp versus mass in the right colon. Biopsy demonstrated villous adenoma with ongoing bleeding needing partial colectomy. Hospital stay has however been complicated by COVID-19 infection as well as pulmonary embolism. Patient was found to have leukocytosis on the morning of 09/04/2024 subsequent imaging studies demonstrated pneumonia necessitating patient being started on antibiotics and her anticipated surgery postponed indefinitely pending stabilization medically 1. Lower GI bleed ? Patient was found to have a large bleeding villous adenoma on colonoscopy performed on 08/28/2024. General surgery was consulted plan was for patient to have undergone bowel resection however given her ongoing medical issues decision was made to place any surgical intervention on hold indefinitely. Patient also had CT of the abdomen and pelvis which was unremarkable for metastatic disease ? 09/06/2024; hemoglobin did drop from 9.4-8.5. Case was discussed with Dr. Calvin with general surgery. With patient clinical condition improving patient surgery has tentatively been scheduled for 09/11/2024 2. Acute on chronic anemia ?Patient has been transfused with 3 unit PRBC since admission ? 09/06/2024; hemoglobin down to 8.5 we will continue with monitoring 3. Acute hypoxic respiratory failure ? Multifactorial including bilateral pulmonary embolism COVID 19 as well as superimposed bacterial pneumonia 4. COVID-19 pneumonia ? Patient was managed with Decadron as well as remdesivir 5. Bilateral pulmonary embolism ? Per stated by patient COVID-19 infection. Patient was deemed not a candidate for systemic anticoagulation given her active bleeding. Patient underwent IVC filter placement by Dr. Kumar on 08/31/2024 6. Chronic congestive heart failure with preserved ejection fraction ? With preserved ejection fraction. Currently euvolemic. Echo from 01/13/2022 demonstrated EF of 65%. Patient is on furosemide 7. Pneumonia - Suspected to be secondary to gram-negative and gram-positive's, Blood and sputum cultures sent. Patient placed on Levaquin as well as vancomycin and placed on oxygen titrated to keep Pulse Ox greater than 90 ? 09/05/2024; patient improving clinically in addition WBC count is trending down we will continue with with the current antibiotic therapy including vancomycin and levofloxacin 8. Acute vertigo ? Treated symptomatically with meclizine 9. Hypertension ? Blood pressure controlled, home medications continued with dose adjustment as needed 10. Dyslipidemia ?Patient is on statin therapy, continued at home dose 11. History of previous CVA ? Patient is on Plavix which is currently being held given her active bleeding 12. GERD ? On PPI 13. Hypokalemia ? Corrected per protocol repeat labs ordered for a.m. Time spent in the patient's overall evaluation,decision-making process, review of diagnostic data, adjustment of management, discussion with other providers, nursing nursing and ancillary staff involved in patient's care documentation, 40 minutes. Charges/Coding Visit Charges Inpatient E&M: 61302 Subs Hosp L2
[2024-09-06 09:25] VITALS: BP 154/80; PULSE 65; RESP 18; TEMP 36.6; O2SAT 96
[2024-09-06 09:49] LABS: Hematocrit 29.6 % (37-47); Hemoglobin 9.4 g/dL (12.0-15.0); Mean Corp Hgb Conc 31.8 g/dL (32-36); Mean Corpuscular Hgb 29.8 pg (27.0-32.0); Mean Platelet Vol. 10.2 fl (6.2-12.0); Platelet Count 259 K/mm3 (150-450); RBC Distribution Width CV 14.7 % (11.6-14.6); RBC Distribution Width SD 49.3 fl (35.1-43.9); Red Blood Count 3.15 M/mm3 (4.2-5.4); White Blood Count 14.3 K/mm3 (4.4-11.0)
[2024-09-06] MEDS: Pantoprazole Sodium 40 MG in 0.9% Normal Saline (100mL MB+) 100 ML 330 MG IV ×2 (09:53→21:00)
[2024-09-06] MEDS: Potassium Chloride Oral Tablet 20 MEQ PO ×2 (09:54→17:08)
[2024-09-06] MEDS: Loratadine 10 MG Tablet PO (09:54)
[2024-09-06] MEDS: Atenolol 50 MG Tablet PO (09:54)
[2024-09-06] MEDS: Isosorbide Mononitrate 60 MG Tablet PO (09:54)
[2024-09-06] MEDS: Atorvastatin Calcium 10 MG Tablet PO (09:54)
[2024-09-06] MEDS: Fluticasone 0.05% 1 SPRAY NASAL.SRY 2 SPRAY NASAL (09:55)
[2024-09-06] MEDS: Nystatin Powder 15gm Bottle 1 APPLIC TOPICAL ×2 (09:56→21:00)
[2024-09-06] MEDS: dexAMETHasone 10 MG/ML Vial 6 MG IV (09:56)
[2024-09-06] MEDS: 0.9% Saline Lock 10 ML Syringe IV (09:57)
[2024-09-06 10:09] LABS: ALB/GLOB Ratio 0.8 RATIO (0.9-2.4); AST(SGOT) 9 U/L (15-37); Alanine Aminotransfer ALT/SGPT 18 U/L (13-56); Albumin, Serum 2.5 g/dL (3.2-5.0); Alkaline Phosphatase 98 U/L (45-117); Anion Gap 9 (5-15); BUN 21 mg/dL (7-18); BUN/Creat Ratio 25.5 RATIO (10-20); Calcium,Total 8.5 mg/dL (8.5-10.1); Chloride 114 mmol/L (98-107); Creatinine, Serum 0.82 mg/dL (0.55-1.02); EST Glomerular Filtration Rate 70 mL/min (>60); Est Glom Filt Rate - Afr Amer 84 mL/min (>60); Estimated Creatinine Clearance 52.79 ml/min; Globulin 3.1 g/dL (2.2-4.2); Glucose 105 mg/dL (74-106); Magnesium 2.2 mg/dL (1.6-2.6); Phosphorus 2.4 mg/dL (2.5-4.9); Potassium 2.8 mmol/L (3.5-5.1); Protein, Total 5.6 g/dL (6.4-8.2); Sodium Level 142 mmol/L (136-145)
[2024-09-06] MEDS: levoFLOXacin IV 750 MG/150 ML BAG 100 MG IV (10:38)
[2024-09-06] MEDS: Acetaminophen 325 MG Tablet 650 MG PO (10:39)
--- NOTE | 2024-09-06 11:07 | CASEMGMT ---
Patient will be having surgery on Wednesday-. Physician asked if patient could go to TCU and then come back for surgery. VICKY spoke with Iris via [employer] and she will start pre-cert and see what insurance says. Await response from insurance. Plan: d/c to [facility] TCU pending insurance approval. Melisa Abraham PROGRAM ASSISTANTTeodoro OLMSTEAD
--- NOTE | 2024-09-06 11:54 | CASEMGMT ---
VICKY called patient's son Cuong and let him know that [facility] TCU is able to take patient when she is medically ready. Cuong was in agreement with this plan. Plan: d/c to [facility] TCU pending insurance approval. Melisa OLMSTEAD
[2024-09-06 17:12] VITALS: BP 137/67; PULSE 78; RESP 18; TEMP 36.6; O2SAT 96
[2024-09-06 17:12] LABS: Bedside Glucose 135 mg/dL (74-106)
[2024-09-06 17:15] LABS: Bedside Glucose 179 mg/dL (74-106)
[2024-09-06 19:50] VITALS: PULSE 73; RESP 24; O2SAT 94
[2024-09-06 21:15] VITALS: BP 134/68; PULSE 76; RESP 18; TEMP 36.6; O2SAT 94
[2024-09-07] VITALS (8 sets, daily range): BP systolic 129–150; BP diastolic 64–75; PULSE 68–77; RESP 17–20; TEMP 36.1–36.8; O2SAT 95–98; BMI 30.4
[2024-09-07] MEDS: Vancomycin HCl 750 MG in 0.9% Normal Saline (250mL Bag) 250 ML 250 MG IV ×2 (02:42→13:34)
[2024-09-07] MEDS: Acetaminophen 325 MG Tablet 650 MG PO ×3 (02:47→16:41)
[2024-09-07 06:18] LABS: Absolute Lymphocyte Count 1.11 X10^3/uL (0.83-4.51); Absolute Neutrophil Count 9.3 X10^3/uL (2.0-7.7); Basophil# 0.01 X10^3/uL; Basophil% 0.1 % (0-1); Hematocrit 25.1 % (37-47); Hemoglobin 8.1 g/dL (12.0-15.0); Lymphocyte # 1.11 X10^3/ul (0.83-4.51); Lymphocyte % 9.6 % (19-41); Mean Corp Hgb Conc 32.3 g/dL (32-36); Mean Platelet Vol. 10.5 fl (6.2-12.0); Monocyte# 1.02 X10^3/uL; Monocyte% 8.8 % (0-10); NRBC Flagged by Analyzer 0 % (0-5); Neutrophil # 9.31 X10^3/uL (2.7-7.7); Neutrophil % 80.4 % (47-70); Platelet Count 229 K/mm3 (150-450); RBC Distribution Width CV 15.1 % (11.6-14.6); RBC Distribution Width SD 50.4 fl (35.1-43.9); White Blood Count 11.6 K/mm3 (4.4-11.0)
[2024-09-07] MEDS: Menthol/Lanolin/Calamine/Znox 113 GM Tube 1 APPLIC TOPICAL ×3 (06:33→21:10)
[2024-09-07 06:50] LABS: Anion Gap 7 (5-15); BUN 22 mg/dL (7-18); BUN/Creat Ratio 28.8 RATIO (10-20); Calcium,Total 8.2 mg/dL (8.5-10.1); Chloride 115 mmol/L (98-107); Creatinine, Serum 0.76 mg/dL (0.55-1.02); EST Glomerular Filtration Rate 76 mL/min (>60); Est Glom Filt Rate - Afr Amer 92 mL/min (>60); Estimated Creatinine Clearance 54.11 ml/min; Glucose 145 mg/dL (74-106); Potassium 3.2 mmol/L (3.5-5.1); Sodium Level 139 mmol/L (136-145)
[2024-09-07 07:01] LABS: Bedside Glucose 126 mg/dL (74-106)
[2024-09-07] MEDS: Albuterol 2.5 MG/3 ML VIAL.NEB. INHALATION ×2 (07:30→21:05)
[2024-09-07] MEDS: Budesonide Respules 0.5 MG/2 ML AMPUL.NEB. INHALATION ×2 (07:30→21:05)
--- NOTE | 2024-09-07 07:58 | PCM.PN.HOSP ---
Reason for Visit Reason for Visit: Diagnoses Neoplasm of unspecified behavior of digestive system (08/25/24) Multiple subsegmental thrombotic pulmonary emboli without acute cor pulmonale (08/25/24) Gastrointestinal hemorrhage, unspecified (08/25/24) Unspecified abdominal pain (08/25/24) Subjective Subjective Patient hemoglobin levels continues to drop 8.1 as of this a.m. patient continues to improve clinically Case was discussed with Dr. Calvin with general surgery Objective Data Objective Data Vital Signs: Vital Signs Temp Pulse Resp BP Pulse Ox O2 Del Method O2 Flow Rate 98.3 F 69 17 133/67 H 97 Nasal Cannula 2 09/07/24 03:15 09/07/24 03:15 09/07/24 03:15 09/07/24 03:15 09/07/24 03:15 09/07/24 03:15 09/07/24 03:15 FiO2 35 09/02/24 03:38 Oxygen Flow Rate (L/min) 2 Oxygen Delivery Method Nasal Cannula Weight: 84 kg Body Mass Index (BMI) 29.9 Intake & Output: Intake and Output for Last 24 Hours 09/05/24 09/06/24 09/07/24 23:59 23:59 23:59 Intake Total 900 / 1020 2210 / 2330 505 / 505 Output Total 2 / 2 Balance 900 / 1020 2210 / 2330 503 / 503 Lab / Micro Data 09/07/24 05:31 09/07/24 05:31 Labs: Laboratory Results - last 24 hr 09/06/24 09:41: WBC 14.3 H, RBC 3.15 L, Hgb 9.4 L, Hct 29.6 L, MCV 94.0, MCH 29.8, MCHC 31.8 L D, RDW Std Deviation 49.3 H, RDW Coeff of Taina 14.7 H, Plt Count 259, MPV 10.2, Sodium 142, Potassium 2.8 L, Chloride 114 H, Carbon Dioxide 19.0 L, Anion Gap 9, BUN 21 H, Creatinine 0.82, Estim Creat Clear Calc 52.79, Est GFR (MDRD) Af Amer 84, Est GFR (MDRD) Non-Af 70, BUN/Creatinine Ratio 25.5 H, Glucose 105, Calcium 8.5, Phosphorus 2.4 L, Magnesium 2.2, Total Bilirubin 0.40, AST 9 L, ALT 18, Alkaline Phosphatase 98, Total Protein 5.6 L, Albumin 2.5 L, Globulin 3.1, Albumin/Globulin Ratio 0.8 L 09/06/24 13:06: POC Glucose 135 H 09/06/24 16:57: POC Glucose 179 H 09/07/24 05:31: WBC 11.6 H, RBC 2.70 L, Hgb 8.1 L, Hct 25.1 L, MCV 93.0, MCH 30.0, MCHC 32.3, RDW Std Deviation 50.4 H, RDW Coeff of Taina 15.1 H, Plt Count 229, MPV 10.5, Immature Gran % (Auto) 1.100 H, Neut % (Auto) 80.4 H, Lymph % (Auto) 9.6 L, [place] % (Auto) 8.8, Eos % (Auto) 0.0, Baso % (Auto) 0.1, Absolute Neuts (auto) 9.3 H, Absolute Lymphs (auto) 1.11, Nucleated RBC % 0, Sodium 139, Potassium 3.2 L, Chloride 115 H, Carbon Dioxide 17.0 L, Anion Gap 7, BUN 22 H, Creatinine 0.76, Estim Creat Clear Calc 54.11, Est GFR (MDRD) Af Amer 92, Est GFR (MDRD) Non-Af 76, BUN/Creatinine Ratio 28.8 H, Glucose 145 H, Calcium 8.2 L 09/07/24 06:32: POC Glucose 126 H Micro: Microbiology 09/04/24 10:00 Nasal Secretion MRSA (PCR) - Final 09/04/24 09:45 Stool Clostridioides difficile (PCR) - Final 08/31/24 09:50 Mucosa - Nose SARS-CoV-2, Influenza & RSV (PCR) - Final SARS-CoV-2 (COVID 19 PCR) 08/26/24 14:17 Stool Stool Lactoferrin - Final 08/26/24 14:17 Stool Enteric Bacteriology - Final Physical Exam Narrative GENERAL: cooperative HEENT: Atraumatic; normocephalic EYES; Anicteric, Normal Conjunctiva NECK; supple, normal thyroid, RESPIRATORY: Diminished to auscultation CARDIOVASCULAR: Regular S1 S2, GI: soft, normoactive bowel sounds, : No Renal angle tenderness; EXTREMITIES: No edema, no clubbing, MUSCULOSKELETAL: no muscle wasting NEURO: Awake; no lateralizing signs. SKIN: No Rash PSYCH; Flat affect Assessment & Plan Assessment/Plan (1) Abdominal pain: (2) Lower GI bleed: (3) Neoplasm of ascending colon: PLAN: Plan Patient is an 89-year-old lady who was admitted with bleeding per rectum as well as left-sided abdominal pain. Was found to have a large bleeding polyp versus mass in the right colon. Biopsy demonstrated villous adenoma with ongoing bleeding needing partial colectomy. Hospital stay has however been complicated by COVID-19 infection as well as pulmonary embolism. Patient was found to have leukocytosis on the morning of 09/04/2024 subsequent imaging studies demonstrated pneumonia necessitating patient being started on antibiotics and her anticipated surgery postponed indefinitely pending stabilization medically 1. Lower GI bleed ? Patient was found to have a large bleeding villous adenoma on colonoscopy performed on 08/28/2024. General surgery was consulted plan was for patient to have undergone bowel resection however given her ongoing medical issues decision was made to place any surgical intervention on hold indefinitely. Patient also had CT of the abdomen and pelvis which was unremarkable for metastatic disease ? 09/06/2024; hemoglobin did drop from 9.4-8.5. Case was discussed with Dr. Calvin with general surgery. With patient clinical condition improving patient surgery has tentatively been scheduled for 09/11/2024 ? 09/07/2024;Patient hemoglobin levels continues to drop 8.1 as of this a.m. 2. Acute on chronic anemia ?Patient has been transfused with 3 unit PRBC since admission ? 09/06/2024; hemoglobin down to 8.5 we will continue with monitoring 3. Acute hypoxic respiratory failure ? Multifactorial including bilateral pulmonary embolism COVID 19 as well as superimposed bacterial pneumonia 4. COVID-19 pneumonia ? Patient was managed with Decadron as well as remdesivir 5. Bilateral pulmonary embolism ? Per stated by patient COVID-19 infection. Patient was deemed not a candidate for systemic anticoagulation given her active bleeding. Patient underwent IVC filter placement by Dr. Kumar on 08/31/2024 6. Chronic congestive heart failure with preserved ejection fraction ? With preserved ejection fraction. Currently euvolemic. Echo from 01/13/2022 demonstrated EF of 65%. Patient is on furosemide 7. Pneumonia - Suspected to be secondary to gram-negative and gram-positive's, Blood and sputum cultures sent. Patient placed on Levaquin as well as vancomycin and placed on oxygen titrated to keep Pulse Ox greater than 90 ? 09/05/2024; patient improving clinically in addition WBC count is trending down we will continue with with the current antibiotic therapy including vancomycin and levofloxacin 8. Acute vertigo ? Treated symptomatically with meclizine 9. Hypertension ? Blood pressure controlled, home medications continued with dose adjustment as needed 10. Dyslipidemia ?Patient is on statin therapy, continued at home dose 11. History of previous CVA ? Patient is on Plavix which is currently being held given her active bleeding 12. GERD ? On PPI 13. Hypokalemia ? Corrected per protocol repeat labs ordered for a.m. Time spent in the patient's overall evaluation,decision-making process, review of diagnostic data, adjustment of management, discussion with other providers, nursing nursing and ancillary staff involved in patient's care documentation, 40 minutes. Charges/Coding Visit Charges Inpatient E&M: 35553 Subs Hosp L2
[2024-09-07] MEDS: Pantoprazole Sodium 40 MG in 0.9% Normal Saline (100mL MB+) 100 ML 330 MG IV ×2 (09:21→21:10)
[2024-09-07] MEDS: dexAMETHasone 10 MG/ML Vial 6 MG IV (09:21)
[2024-09-07] MEDS: 0.9% Saline Lock 10 ML Syringe IV (09:21)
[2024-09-07] MEDS: Potassium Chloride Oral Tablet 20 MEQ PO ×2 (09:23→16:40)
[2024-09-07] MEDS: Atorvastatin Calcium 10 MG Tablet PO (09:23)
[2024-09-07] MEDS: Nystatin Powder 15gm Bottle 1 APPLIC TOPICAL ×2 (09:23→21:10)
[2024-09-07] MEDS: Isosorbide Mononitrate 60 MG Tablet PO (09:23)
[2024-09-07] MEDS: Atenolol 50 MG Tablet PO (09:23)
[2024-09-07] MEDS: Fluticasone 0.05% 1 SPRAY NASAL.SRY 2 SPRAY NASAL (09:24)
[2024-09-07] MEDS: Loratadine 10 MG Tablet PO (09:24)
[2024-09-07] MEDS: Potassium Chloride Oral Tablet 20 MEQ 40 MEQ PO (09:47)
[2024-09-07] MEDS: levoFLOXacin IV 750 MG/150 ML BAG 100 MG IV (09:47)
[2024-09-07 11:54] LABS: Bedside Glucose 149 mg/dL (74-106)
[2024-09-07] MEDS: Insulin Lispro 100 UNIT/ML INSULN.PEN SC (16:41)
[2024-09-07 17:01] LABS: Bedside Glucose 154 mg/dL (74-106)
[2024-09-08] VITALS (7 sets, daily range): BP systolic 123–161; BP diastolic 67–71; PULSE 69–73; RESP 15–20; TEMP 36.4–36.7; O2SAT 95–99; BMI 30.4
[2024-09-08 02:20] LABS: Absolute Lymphocyte Count 0.94 X10^3/uL (0.83-4.51); Absolute Neutrophil Count 9.7 X10^3/uL (2.0-7.7); Basophil# 0.01 X10^3/uL; Basophil% 0.1 % (0-1); Hematocrit 24.9 % (37-47); Hemoglobin 8.4 g/dL (12.0-15.0); Lymphocyte # 0.94 X10^3/ul (0.83-4.51); Mean Corp Hgb Conc 33.7 g/dL (32-36); Mean Corpuscular Volume 91.9 fL (81-99); Mean Platelet Vol. 9.8 fl (6.2-12.0); Monocyte# 0.82 X10^3/uL; NRBC Flagged by Analyzer 0 % (0-5); Neutrophil # 9.73 X10^3/uL (2.7-7.7); Neutrophil % 83.4 % (47-70); Platelet Count 233 K/mm3 (150-450); RBC Distribution Width CV 15.7 % (11.6-14.6); RBC Distribution Width SD 51.2 fl (35.1-43.9); Red Blood Count 2.71 M/mm3 (4.2-5.4); White Blood Count 11.7 K/mm3 (4.4-11.0)
[2024-09-08 02:36] LABS: Anion Gap 6 (5-15); BUN 28 mg/dL (7-18); Calcium,Total 8.3 mg/dL (8.5-10.1); Chloride 117 mmol/L (98-107); Creatinine, Serum 0.87 mg/dL (0.55-1.02); EST Glomerular Filtration Rate 65 mL/min (>60); Est Glom Filt Rate - Afr Amer 79 mL/min (>60); Estimated Creatinine Clearance 50.21 ml/min; Glucose 166 mg/dL (74-106); Potassium 3.8 mmol/L (3.5-5.1); Sodium Level 140 mmol/L (136-145)
[2024-09-08 02:39] LABS: Vancomycin, Trough Level 18.8 ug/mL (5.0-15.0)
--- NOTE | 2024-09-08 03:04 | PCM.RX.CS ---
Consult Type of Intervention Type of Consult: Follow-up Labs Labs: Sodium 140 mmol/L (136-145) 09/08/24 02:04 Potassium 3.8 mmol/L (3.5-5.1) 09/08/24 02:04 Chloride 117 mmol/L (98-107) H 09/08/24 02:04 Carbon Dioxide 17.0 mmol/L (21.0-32.0) L 09/08/24 02:04 Anion Gap 6 (5-15) 09/08/24 02:04 BUN 28 mg/dL (7-18) H 09/08/24 02:04 Creatinine 0.87 mg/dL (0.55-1.02) 09/08/24 02:04 Est GFR (MDRD) Af Amer 79 mL/min (>60) 09/08/24 02:04 Est GFR (MDRD) Non-Af 65 mL/min (>60) 09/08/24 02:04 BUN/Creatinine Ratio 32.0 RATIO (10-20) H 09/08/24 02:04 Glucose 166 mg/dL (74-106) H 09/08/24 02:04 Vancomycin Trough 18.8 ug/mL (5.0-15.0) H 09/08/24 02:04 Microbiology Microbiology: Microbiology 09/04/24 10:00 Urine, Catheterized Urine Culture - Final Yeast, not Suzan albicans 09/04/24 10:00 Nasal Secretion MRSA (PCR) - Final 09/04/24 09:45 Stool Clostridioides difficile (PCR) - Final 08/31/24 09:50 Mucosa - Nose SARS-CoV-2, Influenza & RSV (PCR) - Final SARS-CoV-2 (COVID 19 PCR) 08/26/24 14:17 Stool Stool Lactoferrin - Final 08/26/24 14:17 Stool Enteric Bacteriology - Final Goal Trough Goal Trough: 15-20 mcg/mL Pharmacy Plan for Drug Dosing Pharmacy Plan for Drug Dosing: Pharmacy Service will continue to monitor and adjust dosing as required. TROUGH 18.8. NEGRITO CHANGES, FOLLOW UP TROUGH IN 4 DAYS Follow-Up Labs Follow-Up Labs: Trough: Vancomycin Date/Time Labs Ordered Labs to be done on [date and time ordered]: 09/12 @ 0200
[2024-09-08] MEDS: Vancomycin HCl 750 MG in 0.9% Normal Saline (250mL Bag) 250 ML 250 MG IV ×2 (03:19→13:12)
[2024-09-08] MEDS: Menthol/Lanolin/Calamine/Znox 113 GM Tube 1 APPLIC TOPICAL ×3 (06:06→22:34)
[2024-09-08 06:29] LABS: Bedside Glucose 127 mg/dL (74-106)
[2024-09-08] MEDS: Albuterol 2.5 MG/3 ML VIAL.NEB. INHALATION ×2 (08:00→22:25)
[2024-09-08] MEDS: Budesonide Respules 0.5 MG/2 ML AMPUL.NEB. INHALATION ×2 (08:00→22:25)
--- NOTE | 2024-09-08 08:38 | PCM.PN.HOSP ---
Reason for Visit Reason for Visit: Diagnoses Neoplasm of unspecified behavior of digestive system (08/25/24) Multiple subsegmental thrombotic pulmonary emboli without acute cor pulmonale (08/25/24) Gastrointestinal hemorrhage, unspecified (08/25/24) Unspecified abdominal pain (08/25/24) Subjective Subjective Patient seen continues to improve clinically. Hemoglobin remains fairly stable. Objective Data Objective Data Vital Signs: Vital Signs Temp Pulse Resp BP Pulse Ox O2 Del Method O2 Flow Rate 98.1 F 73 15 142/71 H 95 Nasal Cannula 2 09/08/24 03:10 09/08/24 03:10 09/08/24 03:10 09/08/24 03:10 09/08/24 03:10 09/08/24 07:41 09/08/24 07:41 FiO2 35 09/02/24 03:38 Oxygen Flow Rate (L/min) 2 Oxygen Delivery Method Nasal Cannula Weight: 85.5 kg Body Mass Index (BMI) 30.4 Intake & Output: Intake and Output for Last 24 Hours 09/06/24 09/07/24 09/08/24 23:59 23:59 23:59 Intake Total 2210 / 2330 1140 / 1260 505 / 505 Output Total 2 / 302 700 / 700 Balance 2210 / 2330 1138 / 958 -195 / -195 Lab / Micro Data 09/08/24 02:04 09/08/24 02:04 Labs: Laboratory Results - last 24 hr 09/07/24 11:36: POC Glucose 149 H 09/07/24 16:39: POC Glucose 154 H 09/08/24 02:04: WBC 11.7 H, RBC 2.71 L, Hgb 8.4 L, Hct 24.9 L, MCV 91.9, MCH 31.0, MCHC 33.7, RDW Std Deviation 51.2 H, RDW Coeff of Taina 15.7 H, Plt Count 233, MPV 9.8, Immature Gran % (Auto) 1.500 H, Neut % (Auto) 83.4 H, Lymph % (Auto) 8.0 L, [place] % (Auto) 7.0, Eos % (Auto) 0.0, Baso % (Auto) 0.1, Absolute Neuts (auto) 9.7 H, Absolute Lymphs (auto) 0.94, Nucleated RBC % 0, Sodium 140, Potassium 3.8, Chloride 117 H, Carbon Dioxide 17.0 L, Anion Gap 6, BUN 28 H, Creatinine 0.87, Estim Creat Clear Calc 50.21, Est GFR (MDRD) Af Amer 79, Est GFR (MDRD) Non-Af 65, BUN/Creatinine Ratio 32.0 H, Glucose 166 H, Calcium 8.3 L, Vancomycin Trough 18.8 H 09/08/24 06:05: POC Glucose 127 H Micro: Microbiology 09/04/24 10:00 Urine, Catheterized Urine Culture - Final Yeast, not Suzan albicans 09/04/24 10:00 Nasal Secretion MRSA (PCR) - Final 09/04/24 09:45 Stool Clostridioides difficile (PCR) - Final 08/31/24 09:50 Mucosa - Nose SARS-CoV-2, Influenza & RSV (PCR) - Final SARS-CoV-2 (COVID 19 PCR) 08/26/24 14:17 Stool Stool Lactoferrin - Final 08/26/24 14:17 Stool Enteric Bacteriology - Final Physical Exam Narrative GENERAL: cooperative HEENT: Atraumatic; normocephalic EYES; Anicteric, Normal Conjunctiva NECK; supple, normal thyroid, RESPIRATORY: Diminished to auscultation CARDIOVASCULAR: Regular S1 S2, GI: soft, normoactive bowel sounds, : No Renal angle tenderness; EXTREMITIES: No edema, no clubbing, MUSCULOSKELETAL: no muscle wasting NEURO: Awake; no lateralizing signs. SKIN: No Rash PSYCH; Flat affect Assessment & Plan Assessment/Plan (1) Abdominal pain: (2) Lower GI bleed: (3) Neoplasm of ascending colon: PLAN: Plan Patient is an 89-year-old lady who was admitted with bleeding per rectum as well as left-sided abdominal pain. Was found to have a large bleeding polyp versus mass in the right colon. Biopsy demonstrated villous adenoma with ongoing bleeding needing partial colectomy. Hospital stay has however been complicated by COVID-19 infection as well as pulmonary embolism. Patient was found to have leukocytosis on the morning of 09/04/2024 subsequent imaging studies demonstrated pneumonia necessitating patient being started on antibiotics and her anticipated surgery postponed indefinitely pending stabilization medically 1. Lower GI bleed ? Patient was found to have a large bleeding villous adenoma on colonoscopy performed on 08/28/2024. General surgery was consulted plan was for patient to have undergone bowel resection however given her ongoing medical issues decision was made to place any surgical intervention on hold indefinitely. Patient also had CT of the abdomen and pelvis which was unremarkable for metastatic disease ? 09/06/2024; hemoglobin did drop from 9.4-8.5. Case was discussed with Dr. Calvin with general surgery. With patient clinical condition improving patient surgery has tentatively been scheduled for 09/11/2024 ? 09/07/2024;Patient hemoglobin levels continues to drop 8.1 as of this a.m. ? 09/08/2024 hemoglobin remained stable at 8.4 2. Acute on chronic anemia ?Patient has been transfused with 3 unit PRBC since admission ? 09/06/2024; hemoglobin down to 8.5 we will continue with monitoring 3. Acute hypoxic respiratory failure ? Multifactorial including bilateral pulmonary embolism COVID 19 as well as superimposed bacterial pneumonia 4. COVID-19 pneumonia ? Patient was managed with Decadron as well as remdesivir 5. Bilateral pulmonary embolism ? Per stated by patient COVID-19 infection. Patient was deemed not a candidate for systemic anticoagulation given her active bleeding. Patient underwent IVC filter placement by Dr. Kumar on 08/31/2024 6. Chronic congestive heart failure with preserved ejection fraction ? With preserved ejection fraction. Currently euvolemic. Echo from 01/13/2022 demonstrated EF of 65%. Patient is on furosemide 7. Pneumonia - Suspected to be secondary to gram-negative and gram-positive's, Blood and sputum cultures sent. Patient placed on Levaquin as well as vancomycin and placed on oxygen titrated to keep Pulse Ox greater than 90 ? 09/05/2024; patient improving clinically in addition WBC count is trending down we will continue with with the current antibiotic therapy including vancomycin and levofloxacin 8. Acute vertigo ? Treated symptomatically with meclizine 9. Hypertension ? Blood pressure controlled, home medications continued with dose adjustment as needed 10. Dyslipidemia ?Patient is on statin therapy, continued at home dose 11. History of previous CVA ? Patient is on Plavix which is currently being held given her active bleeding 12. GERD ? On PPI 13. Hypokalemia ? Corrected per protocol repeat labs ordered for a.m. Time spent in the patient's overall evaluation,decision-making process, review of diagnostic data, adjustment of management, discussion with other providers, nursing nursing and ancillary staff involved in patient's care documentation, 35 minutes. Charges/Coding Visit Charges Inpatient E&M: 18709 Subs Hosp L2
--- NOTE | 2024-09-08 08:40 | PCM.PN.SRG ---
Subjective Subjective Patient reports no issues overnight Objective Data Objective Data Vital Signs: Vital Signs Temp Pulse Resp BP Pulse Ox O2 Del Method O2 Flow Rate 98.1 F 73 15 142/71 H 95 Nasal Cannula 2 09/08/24 03:10 09/08/24 03:10 09/08/24 03:10 09/08/24 03:10 09/08/24 03:10 09/08/24 07:41 09/08/24 07:41 FiO2 35 09/02/24 03:38 Oxygen Flow Rate (L/min) 2 Oxygen Delivery Method Nasal Cannula Weight: 188 lb 7.924 oz Body Mass Index (BMI) 30.4 Intake & Output: Intake and Output for Last 24 Hours 09/06/24 09/07/24 09/08/24 23:59 23:59 23:59 Intake Total 2210 / 2330 1140 / 1260 505 / 505 Output Total 2 302 700 / 700 Balance 2210 / 2330 1138 / 958 -195 / -195 Lab / Micro Data 09/08/24 02:04 09/08/24 02:04 Labs: Laboratory Results - last 24 hr 09/07/24 11:36: POC Glucose 149 H 09/07/24 16:39: POC Glucose 154 H 09/08/24 02:04: WBC 11.7 H, RBC 2.71 L, Hgb 8.4 L, Hct 24.9 L, MCV 91.9, MCH 31.0, MCHC 33.7, RDW Std Deviation 51.2 H, RDW Coeff of Taina 15.7 H, Plt Count 233, MPV 9.8, Immature Gran % (Auto) 1.500 H, Neut % (Auto) 83.4 H, Lymph % (Auto) 8.0 L, [place] % (Auto) 7.0, Eos % (Auto) 0.0, Baso % (Auto) 0.1, Absolute Neuts (auto) 9.7 H, Absolute Lymphs (auto) 0.94, Nucleated RBC % 0, Sodium 140, Potassium 3.8, Chloride 117 H, Carbon Dioxide 17.0 L, Anion Gap 6, BUN 28 H, Creatinine 0.87, Estim Creat Clear Calc 50.21, Est GFR (MDRD) Af Amer 79, Est GFR (MDRD) Non-Af 65, BUN/Creatinine Ratio 32.0 H, Glucose 166 H, Calcium 8.3 L, Vancomycin Trough 18.8 H 09/08/24 06:05: POC Glucose 127 H Micro: Microbiology 09/04/24 10:00 Urine, Catheterized Urine Culture - Final Yeast, not Suzan albicans 09/04/24 10:00 Nasal Secretion MRSA (PCR) - Final 09/04/24 09:45 Stool Clostridioides difficile (PCR) - Final 08/31/24 09:50 Mucosa - Nose SARS-CoV-2, Influenza & RSV (PCR) - Final SARS-CoV-2 (COVID 19 PCR) 08/26/24 14:17 Stool Stool Lactoferrin - Final 08/26/24 14:17 Stool Enteric Bacteriology - Final Physical Exam Const oriented x3 and no apparent distress Resp normal respiratory effort GI soft to palpation and non-tender Assessment & Plan Assessment/Plan (1) Lower GI bleed: PLAN: Patient appears healthier today. She says she is not in any distress. Her hemoglobin continues to fall slightly. Transfuse as needed over the weekend. Plan for right hemicolectomy on Wednesday morning. Will bowel prep over the weekend and make n.p.o. Wednesday night. Brian Calvin MD Pager: [facility] [address] [place] [address], [address] [place] [address] Office:
[2024-09-08] MEDS: Pantoprazole Sodium 40 MG in 0.9% Normal Saline (100mL MB+) 100 ML 330 MG IV ×2 (09:00→22:35)
[2024-09-08] MEDS: 0.9% Saline Lock 10 ML Syringe IV (09:00)
[2024-09-08] MEDS: dexAMETHasone 10 MG/ML Vial 6 MG IV (09:01)
[2024-09-08] MEDS: Loratadine 10 MG Tablet PO (09:03)
[2024-09-08] MEDS: levoFLOXacin 750 MG Tablet PO (09:03)
[2024-09-08] MEDS: Potassium Chloride Oral Tablet 20 MEQ PO ×2 (09:03→16:47)
[2024-09-08] MEDS: Isosorbide Mononitrate 60 MG Tablet PO (09:03)
[2024-09-08] MEDS: Atenolol 50 MG Tablet PO (09:03)
[2024-09-08] MEDS: Atorvastatin Calcium 10 MG Tablet PO (09:03)
[2024-09-08] MEDS: Acetaminophen 325 MG Tablet 650 MG PO ×2 (09:03→22:35)
[2024-09-08] MEDS: Nystatin Powder 15gm Bottle 1 APPLIC TOPICAL ×2 (09:04→22:35)
[2024-09-08] MEDS: Fluticasone 0.05% 1 SPRAY NASAL.SRY 2 SPRAY NASAL (09:04)
[2024-09-08 11:46] LABS: Bedside Glucose 108 mg/dL (74-106)
--- NOTE | 2024-09-08 23:21 | CPS ---
Did I.S. with pt not PEP. Pt has no mucus, no secretions. Pt can only do 500ml on incentive spirometer with good effort. Pt still has crackles in both bases. Rn aware
[2024-09-09] VITALS (7 sets, daily range): BP systolic 124–147; BP diastolic 63–66; PULSE 62–72; RESP 16–20; TEMP 35.9–36.9; O2SAT 97–99; BMI 30.8
[2024-09-09] MEDS: Vancomycin HCl 750 MG in 0.9% Normal Saline (250mL Bag) 250 ML 250 MG IV ×2 (02:57→18:02)
[2024-09-09 03:37] LABS: Bedside Glucose 137 mg/dL (74-106)
[2024-09-09] MEDS: 0.9% Saline Lock 10 ML Syringe IV (06:41)
[2024-09-09] MEDS: Menthol/Lanolin/Calamine/Znox 113 GM Tube 1 APPLIC TOPICAL ×3 (06:41→23:09)
[2024-09-09 06:52] LABS: Absolute Lymphocyte Count 1.37 X10^3/uL (0.83-4.51); Absolute Neutrophil Count 9.2 X10^3/uL (2.0-7.7); Basophil# 0.02 X10^3/uL; Basophil% 0.2 % (0-1); Eosinophil# 0.01 X10^3/uL; Eosinophils% 0.1 % (0-5); Hemoglobin 9.1 g/dL (12.0-15.0); Lymphocyte # 1.37 X10^3/ul (0.83-4.51); Lymphocyte % 11.4 % (19-41); Mean Corp Hgb Conc 33.7 g/dL (32-36); Mean Corpuscular Hgb 30.6 pg (27.0-32.0); Mean Corpuscular Volume 90.9 fL (81-99); Mean Platelet Vol. 10.2 fl (6.2-12.0); Monocyte% 9.1 % (0-10); NRBC Flagged by Analyzer 0 % (0-5); Neutrophil % 76.3 % (47-70); Platelet Count 248 K/mm3 (150-450); RBC Distribution Width CV 15.9 % (11.6-14.6); RBC Distribution Width SD 51.7 fl (35.1-43.9); Red Blood Count 2.97 M/mm3 (4.2-5.4); White Blood Count 12.1 K/mm3 (4.4-11.0)
[2024-09-09 07:04] LABS: Bedside Glucose 115 mg/dL (74-106)
[2024-09-09 07:19] LABS: Anion Gap 5 (5-15); BUN 21 mg/dL (7-18); BUN/Creat Ratio 28.4 RATIO (10-20); Calcium,Total 8.4 mg/dL (8.5-10.1); Chloride 114 mmol/L (98-107); Creatinine, Serum 0.74 mg/dL (0.55-1.02); EST Glomerular Filtration Rate 79 mL/min (>60); Est Glom Filt Rate - Afr Amer 96 mL/min (>60); Estimated Creatinine Clearance 54.95 ml/min; Glucose 127 mg/dL (74-106); Potassium 3.6 mmol/L (3.5-5.1); Sodium Level 139 mmol/L (136-145)
[2024-09-09] MEDS: Budesonide Respules 0.5 MG/2 ML AMPUL.NEB. INHALATION ×2 (07:40→22:20)
[2024-09-09] MEDS: Albuterol 2.5 MG/3 ML VIAL.NEB. INHALATION ×3 (07:40→22:20)
--- NOTE | 2024-09-09 08:45 | PN.SURG_ITS ---
Subjective Subjective Patient tolerating diet and denies any abdominal pain. Patient's hemoglobin 9.1. Objective Data Objective Data Vital Signs: Vital Signs Temp Pulse Resp BP Pulse Ox O2 Del Method O2 Flow Rate 98.5 F 69 16 138/64 H 98 Room Air 2 09/09/24 04:25 09/09/24 07:44 09/09/24 07:44 09/09/24 04:25 09/09/24 07:44 09/09/24 07:44 09/08/24 07:41 FiO2 35 09/02/24 03:38 Oxygen Flow Rate (L/min) 2 Oxygen Delivery Method Room Air Weight: 191 lb 2.252 oz Body Mass Index (BMI) 30.8 Intake & Output: Intake and Output for Last 24 Hours 09/07/24 09/08/24 09/09/24 23:59 23:59 23:59 Intake Total 1140 / 1260 990 / 990 265 / 265 Output Total 2 / 302 700 / 1200 500 / 500 Balance 1138 / 958 290 / -210 -235 / -235 Lab / Micro Data 09/09/24 06:34 09/09/24 06:34 Labs: Laboratory Results - last 24 hr 09/08/24 11:29: POC Glucose 108 H 09/08/24 16:45: POC Glucose 137 H 09/09/24 06:34: WBC 12.1 H, RBC 2.97 L, Hgb 9.1 L, Hct 27.0 L, MCV 90.9, MCH 30.6, MCHC 33.7, RDW Std Deviation 51.7 H, RDW Coeff of Taina 15.9 H, Plt Count 248, MPV 10.2, Immature Gran % (Auto) 2.900 H, Neut % (Auto) 76.3 H, Lymph % (Auto) 11.4 L, [place] % (Auto) 9.1, Eos % (Auto) 0.1, Baso % (Auto) 0.2, Absolute Neuts (auto) 9.2 H, Absolute Lymphs (auto) 1.37, Nucleated RBC % 0, Sodium 139, Potassium 3.6, Chloride 114 H, Carbon Dioxide 20.0 L, Anion Gap 5, BUN 21 H, Creatinine 0.74, Estim Creat Clear Calc 54.95, Est GFR (MDRD) Af Amer 96, Est GFR (MDRD) Non-Af 79, BUN/Creatinine Ratio 28.4 H, Glucose 127 H, Calcium 8.4 L 09/09/24 06:38: POC Glucose 115 H Micro: Microbiology 09/04/24 10:00 Urine, Catheterized Urine Culture - Final Yeast, not Suzan albicans 09/04/24 10:00 Nasal Secretion MRSA (PCR) - Final 09/04/24 09:45 Stool Clostridioides difficile (PCR) - Final 08/31/24 09:50 Mucosa - Nose SARS-CoV-2, Influenza & RSV (PCR) - Final SARS-CoV-2 (COVID 19 PCR) 08/26/24 14:17 Stool Stool Lactoferrin - Final 08/26/24 14:17 Stool Enteric Bacteriology - Final Physical Exam Const oriented x3 and no apparent distress Resp normal respiratory effort Cardio regular rate GI soft to palpation and non-tender Inspection: Negative for abdominal distention Assessment & Plan Assessment/Plan (1) Lower GI bleed: PLAN: Will plan for a laparoscopic right hemicolectomy on Wednesday at [address] Calvin. Will bowel prep on tomorrow?Wednesday. Hemoglobin currently 9.1. Would like it to be greater than 9 tomorrow with plan for transfusion prior to surgery. Marisol Peraza M.D. Pager: [phone] [facility] [address] [place] [address], [address] [place] [address] Office: [phone] Charges/Coding Visit Charges Inpatient E&M: 31302 Subs Hosp L2
[2024-09-09] MEDS: dexAMETHasone 10 MG/ML Vial 6 MG IV (12:49)
[2024-09-09] MEDS: Loratadine 10 MG Tablet PO (12:51)
[2024-09-09] MEDS: Atenolol 50 MG Tablet PO (12:51)
[2024-09-09] MEDS: Potassium Chloride Oral Tablet 20 MEQ PO ×2 (12:51→18:11)
[2024-09-09] MEDS: Atorvastatin Calcium 10 MG Tablet PO (12:51)
[2024-09-09] MEDS: levoFLOXacin 750 MG Tablet PO (12:51)
[2024-09-09] MEDS: Isosorbide Mononitrate 60 MG Tablet PO (12:51)
[2024-09-09] MEDS: Nystatin Powder 15gm Bottle 1 APPLIC TOPICAL ×2 (12:53→23:09)
[2024-09-09] MEDS: Pantoprazole Sodium 40 MG in 0.9% Normal Saline (100mL MB+) 100 ML 330 MG IV ×2 (12:53→23:08)
[2024-09-09] MEDS: Fluticasone 0.05% 1 SPRAY NASAL.SRY 2 SPRAY NASAL (12:56)
--- NOTE | 2024-09-09 13:12 | PN.HOSP_ITS ---
Subjective Subjective Doing well, no issues overnight Objective Data Objective Data Vital Signs: Vital Signs Temp Pulse Resp BP Pulse Ox O2 Del Method O2 Flow Rate 96.7 F L 71 16 147/63 H 99 Room Air 2 09/09/24 12:00 09/09/24 12:00 09/09/24 12:00 09/09/24 12:00 09/09/24 12:00 09/09/24 12:00 09/08/24 07:41 FiO2 35 09/02/24 03:38 Oxygen Flow Rate (L/min) 2 Oxygen Delivery Method Room Air Weight: 191 lb 2.252 oz Body Mass Index (BMI) 30.8 Intake & Output: Intake and Output for Last 24 Hours 09/08/24 09/09/24 09/10/24 03:59 03:59 03:59 Intake Total 1140 / 1140 870 / 870 265 / 265 Output Total 302 / 302 900 / 900 Balance 838 / 838 -30 / -30 265 / 265 Lab / Micro Data 09/09/24 06:34 09/09/24 06:34 Labs: Laboratory Results - last 24 hr 09/08/24 16:45: POC Glucose 137 H 09/09/24 06:34: WBC 12.1 H, RBC 2.97 L, Hgb 9.1 L, Hct 27.0 L, MCV 90.9, MCH 30.6, MCHC 33.7, RDW Std Deviation 51.7 H, RDW Coeff of Taina 15.9 H, Plt Count 248, MPV 10.2, Immature Gran % (Auto) 2.900 H, Neut % (Auto) 76.3 H, Lymph % (Auto) 11.4 L, [place] % (Auto) 9.1, Eos % (Auto) 0.1, Baso % (Auto) 0.2, Absolute Neuts (auto) 9.2 H, Absolute Lymphs (auto) 1.37, Nucleated RBC % 0, Sodium 139, Potassium 3.6, Chloride 114 H, Carbon Dioxide 20.0 L, Anion Gap 5, BUN 21 H, Creatinine 0.74, Estim Creat Clear Calc 54.95, Est GFR (MDRD) Af Amer 96, Est GFR (MDRD) Non-Af 79, BUN/Creatinine Ratio 28.4 H, Glucose 127 H, Calcium 8.4 L 09/09/24 06:38: POC Glucose 115 H Micro: Microbiology 09/04/24 10:00 Urine, Catheterized Urine Culture - Final Yeast, not Suzan albicans 09/04/24 10:00 Nasal Secretion MRSA (PCR) - Final 09/04/24 09:45 Stool Clostridioides difficile (PCR) - Final 08/31/24 09:50 Mucosa - Nose SARS-CoV-2, Influenza & RSV (PCR) - Final SARS-CoV-2 (COVID 19 PCR) 08/26/24 14:17 Stool Stool Lactoferrin - Final 08/26/24 14:17 Stool Enteric Bacteriology - Final Physical Exam Narrative General: Alert, Oriented x2, Cooperative, No apparent distress HEENT: Atraumatic, PERRLA, EOMI, Normocephalic Oral: Moist Mucosa Neck: Supple, No JVD Lungs: Diminished, Normal air movement, No rhonchi, No wheeze, No rales Cardiovascular: Regular rate, Regular Rhythm, Normal S1, Normal S2, No murmurs Abdomen: Soft, Non Tender, Non-Distended, No Hepato-splenomegaly Extremities: No edema, Capillary Refill Less than 3 Seconds Skin: No rashes, No breakdown Musculoskeletal: No Tenderness to Palpation of Joints or Extremities Neurological: No focal neurological deficits, Motor Exam 5/5 strength throughout, Sensory exam intact to light touch and pain Psych/Mental Status: Normal Affect, Appropriate Assessment & Plan Assessment/Plan (1) Abdominal pain: (2) Lower GI bleed: (3) Neoplasm of ascending colon: PLAN: Plan 1. Lower GI bleed ? Patient was found to have a large bleeding villous adenoma on colonoscopy performed on 08/28/2024. General surgery was consulted plan was for patient to have undergone bowel resection however given her ongoing medical issues decision was made to place any surgical intervention on hold indefinitely. Patient also had CT of the abdomen and pelvis which was unremarkable for metastatic disease ? 09/06/2024; hemoglobin did drop from 9.4-8.5. Case was discussed with Dr. Calvin with general surgery. With patient clinical condition improving patient surgery has tentatively been scheduled for 09/11/2024 ? 09/07/2024;Patient hemoglobin levels continues to drop 8.1 as of this a.m. ? 09/08/2024 hemoglobin remained stable at 8.4 09/09/2024: Hemoglobin is stable at 9.1 2. Acute on chronic anemia ?Patient has been transfused with 3 unit PRBC since admission ? 09/06/2024; hemoglobin down to 8.5 we will continue with monitoring 3. Acute hypoxic respiratory failure ? Multifactorial including bilateral pulmonary embolism COVID 19 as well as superimposed bacterial pneumonia Resolved 4. COVID-19 pneumonia ? Patient was managed with Decadron as well as remdesivir 09/09/2024: Can come out of precautions tomorrow 5. Bilateral pulmonary embolism ? Per stated by patient COVID-19 infection. Patient was deemed not a candidate for systemic anticoagulation given her active bleeding. Patient underwent IVC filter placement by Dr. Vital on 08/31/2024 6. Chronic congestive heart failure with preserved ejection fraction ? With preserved ejection fraction. Currently euvolemic. Echo from 01/13/2022 demonstrated EF of 65%. Patient is on furosemide 7. Pneumonia - Suspected to be secondary to gram-negative and gram-positive's, Blood and sputum cultures sent. Patient placed on Levaquin as well as vancomycin and placed on oxygen titrated to keep Pulse Ox greater than 90 ? 09/05/2024; patient improving clinically in addition WBC count is trending down we will continue with with the current antibiotic therapy including vancomycin and levofloxacin 09/09/2024: Continue with IV antibiotics can likely discontinue in the next 48 to 72 hours 8. Acute vertigo ? Treated symptomatically with meclizine 9. Hypertension ? Blood pressure controlled, home medications continued with dose adjustment as needed 10. Dyslipidemia ?Patient is on statin therapy, continued at home dose 11. History of previous CVA ? Patient is on Plavix which is currently being held given her active bleeding 12. GERD ? On PPI DVT: SCDs Charges/Coding Visit Charges Inpatient E&M: 82805 Subs Hosp L2
[2024-09-09 13:22] LABS: Bedside Glucose 129 mg/dL (74-106)
[2024-09-09] MEDS: Insulin Lispro 100 UNIT/ML INSULN.PEN SC (18:10)
[2024-09-09 23:42] LABS: Bedside Glucose 177 mg/dL (74-106)
[2024-09-10] VITALS (8 sets, daily range): BP systolic 129–138; BP diastolic 59–82; PULSE 66–74; RESP 16–22; TEMP 36.4–37; O2SAT 94–100; BMI 30.7
[2024-09-10] MEDS: Vancomycin HCl 750 MG in 0.9% Normal Saline (250mL Bag) 250 ML 250 MG IV ×2 (03:04→14:26)
--- NOTE | 2024-09-10 05:25 | CPS ---
pt refused bipap
[2024-09-10 06:13] LABS: Absolute Neutrophil Count 9.8 X10^3/uL (2.0-7.7); Basophil# 0.01 X10^3/uL; Basophil% 0.1 % (0-1); Hematocrit 28.2 % (37-47); Hemoglobin 9.3 g/dL (12.0-15.0); Lymphocyte % 6.7 % (19-41); Mean Corpuscular Hgb 30.6 pg (27.0-32.0); Mean Corpuscular Volume 92.8 fL (81-99); Mean Platelet Vol. 10.3 fl (6.2-12.0); Monocyte# 1.05 X10^3/uL; Monocyte% 8.8 % (0-10); NRBC Flagged by Analyzer 0 % (0-5); Neutrophil # 9.79 X10^3/uL (2.7-7.7); Neutrophil % 82.1 % (47-70); Platelet Count 258 K/mm3 (150-450); RBC Distribution Width CV 16.3 % (11.6-14.6); RBC Distribution Width SD 54.1 fl (35.1-43.9); Red Blood Count 3.04 M/mm3 (4.2-5.4); White Blood Count 11.9 K/mm3 (4.4-11.0)
[2024-09-10 06:23] LABS: Anion Gap 6 (5-15); BUN 21 mg/dL (7-18); Calcium,Total 8.2 mg/dL (8.5-10.1); Chloride 115 mmol/L (98-107); Creatinine, Serum 0.72 mg/dL (0.55-1.02); EST Glomerular Filtration Rate 81 mL/min (>60); Est Glom Filt Rate - Afr Amer 98 mL/min (>60); Estimated Creatinine Clearance 54.89 ml/min; Glucose 161 mg/dL (74-106); Magnesium 1.9 mg/dL (1.6-2.6); Phosphorus 2.6 mg/dL (2.5-4.9); Potassium 3.5 mmol/L (3.5-5.1); Sodium Level 140 mmol/L (136-145)
[2024-09-10] MEDS: Menthol/Lanolin/Calamine/Znox 113 GM Tube 1 APPLIC TOPICAL ×3 (06:33→21:53)
[2024-09-10] MEDS: Insulin Lispro 100 UNIT/ML INSULN.PEN SC (06:34)
[2024-09-10 06:59] LABS: Bedside Glucose 157 mg/dL (74-106)
[2024-09-10] MEDS: Budesonide Respules 0.5 MG/2 ML AMPUL.NEB. INHALATION ×2 (07:44→19:15)
[2024-09-10] MEDS: Albuterol 2.5 MG/3 ML VIAL.NEB. INHALATION ×3 (07:44→19:15)
--- NOTE | 2024-09-10 09:45 | PN.SURG_ITS ---
Subjective Subjective Patient states she still feeling a little bit better. Will plan for bowel prep today Objective Data Objective Data Vital Signs: Vital Signs Temp Pulse Resp BP Pulse Ox O2 Del Method O2 Flow Rate 98.6 F 69 16 131/66 H 100 Nasal Cannula 2 09/10/24 04:04 09/10/24 07:45 09/10/24 07:45 09/10/24 04:04 09/10/24 07:45 09/10/24 07:45 09/10/24 07:45 FiO2 35 09/02/24 03:38 Oxygen Flow Rate (L/min) 2 Oxygen Delivery Method Nasal Cannula Weight: 190 lb 11.198 oz Body Mass Index (BMI) 30.7 Intake & Output: Intake and Output for Last 24 Hours 09/08/24 09/09/24 09/10/24 23:59 23:59 23:59 Intake Total 990 / 990 1100 / 1100 265 / 265 Output Total 700 / 1200 1600 / 1600 Balance 290 / -210 -500 / -500 265 / 265 Lab / Micro Data 09/10/24 05:00 09/10/24 05:00 Labs: Laboratory Results - last 24 hr 09/09/24 12:42: POC Glucose 129 H 09/09/24 18:10: POC Glucose 177 H 09/10/24 05:00: WBC 11.9 H, RBC 3.04 L, Hgb 9.3 L, Hct 28.2 L, MCV 92.8, MCH 30.6, MCHC 33.0, RDW Std Deviation 54.1 H, RDW Coeff of Taina 16.3 H, Plt Count 258, MPV 10.3, Immature Gran % (Auto) 2.300 H, Neut % (Auto) 82.1 H, Lymph % (Auto) 6.7 L, [place] % (Auto) 8.8, Eos % (Auto) 0.0, Baso % (Auto) 0.1, Absolute Neuts (auto) 9.8 H, Absolute Lymphs (auto) 0.80 L, Nucleated RBC % 0, Sodium 140, Potassium 3.5, Chloride 115 H, Carbon Dioxide 19.0 L, Anion Gap 6, BUN 21 H , Creatinine 0.72, Estim Creat Clear Calc 54.89, Est GFR (MDRD) Af Amer 98, Est GFR (MDRD) Non-Af 81, BUN/Creatinine Ratio 29.0 H, Glucose 161 H, Calcium 8.2 L, Phosphorus 2.6, Magnesium 1.9 09/10/24 06:32: POC Glucose 157 H Micro: Microbiology 09/04/24 10:00 Urine, Catheterized Urine Culture - Final Yeast, not Suzan albicans 09/04/24 10:00 Nasal Secretion MRSA (PCR) - Final 09/04/24 09:45 Stool Clostridioides difficile (PCR) - Final 08/31/24 09:50 Mucosa - Nose SARS-CoV-2, Influenza & RSV (PCR) - Final SARS-CoV-2 (COVID 19 PCR) 08/26/24 14:17 Stool Stool Lactoferrin - Final 08/26/24 14:17 Stool Enteric Bacteriology - Final Physical Exam Const oriented x3 and no apparent distress Resp normal respiratory effort Cardio regular rate GI soft to palpation and non-tender Inspection: Negative for abdominal distention Assessment & Plan Assessment/Plan (1) Lower GI bleed: PLAN: Will plan for a laparoscopic right hemicolectomy on Wednesday at [address] Calvin. Will bowel prep today with oral antibiotics. Hemoglobin currently 9.3. Patient had no further questions about surgery. Marisol Peraza M.D. Pager: [phone] [facility] [address] [place] [address], [facility], [address] [place] [id number] Office: [phone] Charges/Coding Multi Select Codes Visit Charges Visit Charges: 87814 Subs Hosp L2
[2024-09-10] MEDS: dexAMETHasone 10 MG/ML Vial 6 MG IV (10:22)
[2024-09-10] MEDS: Isosorbide Mononitrate 60 MG Tablet PO (10:22)
[2024-09-10] MEDS: Potassium Chloride Oral Tablet 20 MEQ PO ×2 (10:22→16:43)
[2024-09-10] MEDS: Loratadine 10 MG Tablet PO (10:22)
[2024-09-10] MEDS: Fluticasone 0.05% 1 SPRAY NASAL.SRY 2 SPRAY NASAL (10:22)
[2024-09-10] MEDS: Nystatin Powder 15gm Bottle 1 APPLIC TOPICAL ×2 (10:23→21:53)
[2024-09-10] MEDS: Atorvastatin Calcium 10 MG Tablet PO (10:23)
[2024-09-10] MEDS: levoFLOXacin 750 MG Tablet PO (10:23)
[2024-09-10] MEDS: Atenolol 50 MG Tablet PO (10:23)
[2024-09-10] MEDS: Pantoprazole Sodium 40 MG in 0.9% Normal Saline (100mL MB+) 100 ML 330 MG IV ×2 (10:25→21:52)
[2024-09-10] MEDS: 0.9% Saline Lock 10 ML Syringe IV ×2 (10:25→21:53)
[2024-09-10] MEDS: Acetaminophen 325 MG Tablet 650 MG PO ×2 (10:33→17:22)
--- NOTE | 2024-09-10 12:33 | PCM.PN.HOSP ---
Subjective Subjective Doing well, no issues overnight Objective Data Objective Data Vital Signs: Vital Signs Temp Pulse Resp BP Pulse Ox O2 Del Method O2 Flow Rate 97.9 F 71 16 130/59 H 94 Room Air 2 09/10/24 10:00 09/10/24 10:00 09/10/24 10:00 09/10/24 10:00 09/10/24 10:00 09/10/24 10:00 09/10/24 11:07 FiO2 35 09/02/24 03:38 Oxygen Flow Rate (L/min) 2 Oxygen Delivery Method Room Air Weight: 190 lb 11.198 oz Body Mass Index (BMI) 30.7 Intake & Output: Intake and Output for Last 24 Hours 09/09/24 09/10/24 09/11/24 03:59 03:59 03:59 Intake Total 870 / 870 1100 / 1100 375 / 375 Output Total 900 / 900 1100 / 1100 Balance -30 / -30 0 / 0 375 / 375 Lab / Micro Data 09/10/24 05:00 09/10/24 05:00 Labs: Laboratory Results - last 24 hr 09/09/24 12:42: POC Glucose 129 H 09/09/24 18:10: POC Glucose 177 H 09/10/24 05:00: WBC 11.9 H, RBC 3.04 L, Hgb 9.3 L, Hct 28.2 L, MCV 92.8, MCH 30.6, MCHC 33.0, RDW Std Deviation 54.1 H, RDW Coeff of Taina 16.3 H, Plt Count 258, MPV 10.3, Immature Gran % (Auto) 2.300 H, Neut % (Auto) 82.1 H, Lymph % (Auto) 6.7 L, [place] % (Auto) 8.8, Eos % (Auto) 0.0, Baso % (Auto) 0.1, Absolute Neuts (auto) 9.8 H, Absolute Lymphs (auto) 0.80 L, Nucleated RBC % 0, Sodium 140, Potassium 3.5, Chloride 115 H, Carbon Dioxide 19.0 L, Anion Gap 6, BUN 21 H, Creatinine 0.72, Estim Creat Clear Calc 54.89, Est GFR (MDRD) Af Amer 98, Est GFR (MDRD) Non-Af 81, BUN/Creatinine Ratio 29.0 H, Glucose 161 H, Calcium 8.2 L, Phosphorus 2.6, Magnesium 1.9 09/10/24 06:32: POC Glucose 157 H Micro: Microbiology 09/04/24 10:00 Urine, Catheterized Urine Culture - Final Yeast, not Suzan albicans 09/04/24 10:00 Nasal Secretion MRSA (PCR) - Final 09/04/24 09:45 Stool Clostridioides difficile (PCR) - Final 08/31/24 09:50 Mucosa - Nose SARS-CoV-2, Influenza & RSV (PCR) - Final SARS-CoV-2 (COVID 19 PCR) 08/26/24 14:17 Stool Stool Lactoferrin - Final 08/26/24 14:17 Stool Enteric Bacteriology - Final Physical Exam Narrative General: Alert, Oriented x2, Cooperative, No apparent distress HEENT: Atraumatic, PERRLA, EOMI, Normocephalic Oral: Moist Mucosa Neck: Supple, No JVD Lungs: Diminished, Normal air movement, No rhonchi, No wheeze, No rales Cardiovascular: Regular rate, Regular Rhythm, Normal S1, Normal S2, No murmurs Abdomen: Soft, Non Tender, Non-Distended, No Hepato-splenomegaly Extremities: No edema, Capillary Refill Less than 3 Seconds Skin: No rashes, No breakdown Musculoskeletal: No Tenderness to Palpation of Joints or Extremities Neurological: No focal neurological deficits, Motor Exam 5/5 strength throughout, Sensory exam intact to light touch and pain Psych/Mental Status: Normal Affect, Appropriate Assessment & Plan Assessment/Plan (1) Abdominal pain: (2) Lower GI bleed: (3) Neoplasm of ascending colon: PLAN: Plan 1. Lower GI bleed ? Patient was found to have a large bleeding villous adenoma on colonoscopy performed on 08/28/2024. General surgery was consulted plan was for patient to have undergone bowel resection however given her ongoing medical issues decision was made to place any surgical intervention on hold indefinitely. Patient also had CT of the abdomen and pelvis which was unremarkable for metastatic disease ? 09/06/2024; hemoglobin did drop from 9.4-8.5. Case was discussed with Dr. Calvin with general surgery. With patient clinical condition improving patient surgery has tentatively been scheduled for 09/11/2024 ? 09/07/2024;Patient hemoglobin levels continues to drop 8.1 as of this a.m. ? 09/08/2024 hemoglobin remained stable at 8.4 09/09/2024: Hemoglobin is stable at 9.1 2. Acute on chronic anemia ?Patient has been transfused with 3 unit PRBC since admission ? 09/06/2024; hemoglobin down to 8.5 we will continue with monitoring 3. Acute hypoxic respiratory failure ? Multifactorial including bilateral pulmonary embolism COVID 19 as well as superimposed bacterial pneumonia Resolved 4. COVID-19 pneumonia ? Patient was managed with Decadron as well as remdesivir 09/09/2024: Can come out of precautions tomorrow 09/10/2024: She has completed Decadron and is out of precautions 5. Bilateral pulmonary embolism ? Per stated by patient COVID-19 infection. Patient was deemed not a candidate for systemic anticoagulation given her active bleeding. Patient underwent IVC filter placement by Dr. Vital on 08/31/2024 6. Chronic congestive heart failure with preserved ejection fraction ? With preserved ejection fraction. Currently euvolemic. Echo from 01/13/2022 demonstrated EF of 65%. Patient is on furosemide 7. Pneumonia - Suspected to be secondary to gram-negative and gram-positive's, Blood and sputum cultures sent. Patient placed on Levaquin as well as vancomycin and placed on oxygen titrated to keep Pulse Ox greater than 90 ? 09/05/2024; patient improving clinically in addition WBC count is trending down we will continue with with the current antibiotic therapy including vancomycin and levofloxacin 09/09/2024: Continue with IV antibiotics can likely discontinue in the next 48 to 72 hours 8. Acute vertigo ? Treated symptomatically with meclizine 9. Hypertension ? Blood pressure controlled, home medications continued with dose adjustment as needed 10. Dyslipidemia ?Patient is on statin therapy, continued at home dose 11. History of previous CVA ? Patient is on Plavix which is currently being held given her active bleeding 12. GERD ? On PPI DVT: SCDs Charges/Coding Visit Charges Inpatient E&M: 15641 Subs Hosp L2
[2024-09-10 12:43] LABS: Bedside Glucose 133 mg/dL (74-106)
[2024-09-10] MEDS: metroNIDAZOLE 500 MG Tablet 1000 MG PO ×2 (14:02→16:37)
[2024-09-10] MEDS: Bisacodyl 5 MG Tablet 10 MG PO ×2 (14:08→17:19)
[2024-09-10] MEDS: Polyethylene Glycol 3350 BOWEL PREP PO (17:11)
[2024-09-10 21:27] LABS: Bedside Glucose 142 mg/dL (74-106)
[2024-09-11] VITALS (18 sets, daily range): BP systolic 109–157; BP diastolic 57–89; PULSE 50–60; RESP 16–18; TEMP 36–36.7; O2SAT 93–99; BMI 30.9
--- NOTE | 2024-09-11 | COL_PTH ---
PATHOLOGY RESULTS PATIENT: CARMEN LAND LOC: PCU U#:[id number] AGE/SX: 89/F ROOM: [facility] RE08/25/[address]: Dr. Ronald Ford MD : [id number] BED: 1 DIS: 09/15/2024 SPEC #: [id number] RECD: 09/11/24 13:27 STATUS: ALFONSO COATES #: [id number] EVIE: 09/11/24 00:[address]: Brian Calvin DEPT: SURGICAL PATHOLOGY RECD BY: Dinesh Hairston ENTERED: 09/11/24 13:54 SP TYPE: COLON OTHR DR: MD Dr. Evan Troy MD Dr. Eric Turney, MD Dr. Kathryn Lee, DO Dr. Nana Yaa Koram, MD Dr. Nicholas F Kotsonis, MD Dr. Prakash Chand, MD Tissues: Colon, NOS Procedures: Surgery Specimen Level V HEADER OPERATION: Laparoscopic, Erlin colectomy PRE-OP DIAGNOSIS: Abdominal pain, lower GI bleed TISSUE SUBMITTED: Right colon MICROSCOPIC DIAGNOSIS Right colon, hemicolectomy: Villous adenoma with focal high-grade dysplasia (3.5cm in greatest dimension). Twenty-three benign pericolonic lymph nodes. Colonic and small intestine donut- no pathologic diagnosis. COMMENT Please make reference to previous specimen [id number] ascending colon mass, biopsy with diagnosis of fragments of villous adenoma. Case has been reviewed in consultation with Dr. Avalos who concurs with the above diagnosis. IDC:AM MICROSCOPIC DESCRIPTION Slides are reviewed. GROSS DESCRIPTION Received in fixative is one container labeled with the patient's name and designated Right colon. The specimen consists of a right hemicolectomy specimen consists with cecum with ascending colon, segmental of small intestine with attached pericolonic adipose tissue and mesenteric tissue. Appendix is not identified. Cecum with ascending colon measures 17.0cm in length and small intestine measures 9.0cm in length. Both resection margins are stapled. Eight cm away from the distal resection margin and 4.5cm away from the ileocecal valve, there is a polypoid lesion measuring 3.5 x 2.5 x 2.0cm. Also present in the container is a detached piece of donut shaped tissue measuring 4.0 x 2.0 x 0.5cm. Pericolonic adipose tissue is fixed in lymph node revealing solution. More dictaion will follow after fixation. 09/11/2024 A prominent fold is noted in the mucosa measuring 0.3cm in diameter. Sections of polypoid lesion shows mucosa it is entirely mucosal in location. No obvious invasion into the underlying bowel wall is noted. Sections of the pericolonic adipose tissue reveal multiple lymph nodes. Largest lymph node measures 1.0 cm in greatest dimension. Traffic I Manager sections are submitted as follows: 1-donut shaped pieces of tissue, 2- proximal and distal resection margins, 3- small bowel, large bowel, and ileocecal valve, 4- prominent mucosa fold, 5-10- polypoid lesion with underlying bowel wall, submitted in its entirety, 11-18- (11-14- each cassette containing lymph node, 15-18- multiple lymph nodes). 09/12/2024 TC:1 CPT:62618, 67566
[2024-09-11] MEDS: metroNIDAZOLE 500 MG Tablet 1000 MG PO (00:22)
[2024-09-11] MEDS: Bisacodyl 5 MG Tablet 10 MG PO (02:44)
[2024-09-11] MEDS: Vancomycin HCl 750 MG in 0.9% Normal Saline (250mL Bag) 250 ML 250 MG IV ×2 (03:40→16:40)
--- NOTE | 2024-09-11 05:08 | ANES.CONF2 ---
Anesthesia: Confirm Documents Multiple Procedures on Account (3) Confirmed Documents: Yes
[2024-09-11 06:29] LABS: Absolute Lymphocyte Count 1.03 X10^3/uL (0.83-4.51); Absolute Neutrophil Count 12.2 X10^3/uL (2.0-7.7); Basophil# 0.02 X10^3/uL; Basophil% 0.1 % (0-1); Hematocrit 28.4 % (37-47); Hemoglobin 9.7 g/dL (12.0-15.0); Lymphocyte # 1.03 X10^3/ul (0.83-4.51); Lymphocyte % 7.1 % (19-41); Mean Corp Hgb Conc 34.2 g/dL (32-36); Mean Corpuscular Hgb 31.5 pg (27.0-32.0); Mean Corpuscular Volume 92.2 fL (81-99); Mean Platelet Vol. 9.9 fl (6.2-12.0); Monocyte# 1.01 X10^3/uL; NRBC Flagged by Analyzer 0 % (0-5); Neutrophil # 12.16 X10^3/uL (2.7-7.7); Neutrophil % 84.1 % (47-70); Platelet Count 246 K/mm3 (150-450); RBC Distribution Width CV 16.4 % (11.6-14.6); RBC Distribution Width SD 54.5 fl (35.1-43.9); Red Blood Count 3.08 M/mm3 (4.2-5.4); White Blood Count 14.5 K/mm3 (4.4-11.0)
[2024-09-11 06:39] LABS: Bedside Glucose 100 mg/dL (74-106)
[2024-09-11 07:02] LABS: Anion Gap 7 (5-15); BUN 15 mg/dL (7-18); BUN/Creat Ratio 21.3 RATIO (10-20); Calcium,Total 8.3 mg/dL (8.5-10.1); Chloride 110 mmol/L (98-107); EST Glomerular Filtration Rate 83 mL/min (>60); Est Glom Filt Rate - Afr Amer 101 mL/min (>60); Estimated Creatinine Clearance 54.89 ml/min; Glucose 105 mg/dL (74-106); Phosphorus 2.8 mg/dL (2.5-4.9); Potassium 3.3 mmol/L (3.5-5.1); Sodium Level 140 mmol/L (136-145)
[2024-09-11] MEDS: dexAMETHasone 10 MG/ML Vial 6 MG IV (09:55)
[2024-09-11] MEDS: Isosorbide Mononitrate 60 MG Tablet PO (09:56)
[2024-09-11] MEDS: Atenolol 50 MG Tablet PO (09:56)
[2024-09-11] MEDS: Fluticasone 0.05% 1 SPRAY NASAL.SRY 2 SPRAY NASAL (09:57)
[2024-09-11] MEDS: Nystatin Powder 15gm Bottle 1 APPLIC TOPICAL ×2 (09:57→21:25)
[2024-09-11] MEDS: Pantoprazole Sodium 40 MG in 0.9% Normal Saline (100mL MB+) 100 ML 330 MG IV ×2 (09:58→21:33)
[2024-09-11] MEDS: Potassium Chloride 10mEq/100mL 10 MEQ/100 ML IV.SOLN. 100 MEQ IV BOLUS ×4 (10:37→14:52)
--- NOTE | 2024-09-11 11:02 | PRE.ANES_ITS ---
ASA Classification* ASA Classification ASA Classification: 3 Assessment & Plan Anesthesia* Anesthesia Assessment Anesthesia Assessment: Discussed sedation and/or anesthesia options, risks, benefits, and alternatives with patient/parents/legal guardian/POA. Questions invited. The patient/parents/legal guardian/POA seems to understand and agrees to proceed with anesthesia plan. Reviewed the physical assessment, medical history, allergy history and patient home medications list prior to surgery/procedure/anesthetic and documented any changes. Performed airway and anesthesia risk assessments. Anesthesia Type Anesthesia Type: General Anesthesia Focused Assessment* Temperature: 97.6 F Pulse Rate: 52 Blood Pressure: 157/71 Respiratory Rate: 16 Pulse Ox: 99 Fraction of Inspired Oxygen (FIO2): 35 Airway Assessment Mouth opens: >3 cm Mallampati Score: II Focused Labs Anesthesia Preop lab: CBC WBC 14.5 K/mm3 (4.4-11.0) H 09/11/24 06:20 RBC 3.08 M/mm3 (4.2-5.4) L 09/11/24 06:20 Hgb 9.7 g/dL (12.0-15.0) L 09/11/24 06:20 Hct 28.4 % (37-47) L 09/11/24 06:20 Plt Count 246 K/mm3 (150-450) 09/11/24 06:20 CHEMISTRY Potassium 3.3 mmol/L (3.5-5.1) L 09/11/24 06:20 Sodium 140 mmol/L (136-145) 09/11/24 06:20 Magnesium 2.0 mg/dL (1.6-2.6) 09/11/24 06:20 Phosphorus 2.8 mg/dL (2.5-4.9) 09/11/24 06:20 BUN 15 mg/dL (7-18) 09/11/24 06:20 Creatinine 0.70 mg/dL (0.55-1.02) 09/11/24 06:20 Glucose 105 mg/dL (74-106) 09/11/24 06:20 POC Glucose 100 mg/dL (74-106) 09/11/24 06:20 TSH 0.586 uIU/mL (0.358-3.740) 08/26/24 04:20 COAG PT 15.6 SECONDS (11.7-14.9) H 09/04/24 05:27 Pre-Assessment Diagnosis/Proposed Procedure Planned Operative Procedure(s): Right laproscopic hemicolectomy Anesthesia History 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 When Was Last Pacemaker Check QUESTION #4 FULL TEXT: You/Your Family Experience fever (hyperthermia) with Anesthesia Last Oral Intake Last Oral intake: Last Oral Intake NPO since 00:01 09/11/24 10:23 Meds taken in AM with sips of Yes 09/11/24 10:23 water? Meds patient instructed to ATENOLOL 09/11/24 10:23 take am of surgery UMDUR PONV PONV - artificial pearl maker: PONV - artificial pearl maker Female HX of Motion Sickness HX of N/V After Surgery Non-Smoker Duration of Surgery greater than 60 minutes Number of Risk Factors PONV Score Height & Weight Height & Weight: Anesthesia: Height & Weight Height 5 ft 6.14 in 09/11/24 10:23 Weight: 87.4 kg 09/11/24 10:23 Body Mass Index (BMI) 30.9 09/11/24 10:23 Respiratory Assessment Respiratory Assessment - artificial pearl maker: Respiratory Tract Infection Hx - artificial pearl maker Hx Respiratory Tract Infection Yes: COVID 09/10/24 22:00 STOP Sleep Apnea STOP Sleep Apnea - artificial pearl maker: STOP Sleep Apnea - artificial pearl maker Hx Hypertension Yes 08/26/24 11:26 Hx Sleep Apnea No 08/28/24 13:31 CPAP No 08/25/24 18:59 BIPAP No 08/25/24 18:59 Do you snore loudly (louder No 08/25/24 18:59 than talking or can be heard Do you often feel tired/ Yes 08/25/24 18:59 fatigued/ sleepy during daytime? Has anyone observed you stop No 08/25/24 18:59 breathing during sleep? STOP Results Positive 08/25/24 18:59 QUESTION #5 FULL TEXT : Do you snore loudly (louder than talking or can be heard through closed doors)? 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 Specify any problems Hx of Preganancy in last 3 No 08/25/24 18:59 Months Nurse Filling Out Transfusion AGILL 08/25/24 18:59 & Questions: Date: 08/25/24 08/25/24 18:59 Time: 19:01 08/25/24 18:59 Patient unable to answer at this time (ie. confused, unrespo /Reproduction History /Reproductive History - artificial pearl maker: /Reproductive Hx- artificial pearl maker Hx Now No 09/10/24 22:00 Gestational Age (in weeks): EDC: Hx Hx Para Hx Section SAB No 09/10/24 22:00 Active Medications Active Medications: Current Medications Generic Name Dose Route Start Last Admin Trade Name Freq PRN Reason Stop Dose Admin Acetaminophen 650 mg 09/06/24 10:30 09/10/24 17:22 Acetaminophen 325 Mg Tablet PO 650 mg Q4H PRN PRN Administration Pain 1-10 or Fever Albuterol Sulfate 2.5 mg 08/26/24 14:45 09/10/24 19:15 Albuterol 2.5 Mg/3 Ml Vial.Neb. INHALATION 2.5 mg Q6HWA.RT JENNIFER Administration Atenolol 50 mg 08/27/24 10:00 09/11/24 09:56 Atenolol 50 Mg Tablet PO 50 mg DAILY JENNIFER Administration Protocol Atorvastatin Calcium 10 mg 08/27/24 10:00 09/11/24 09:15 Atorvastatin Calcium 10 Mg Tablet PO Not Given DAILY JENNIFER Budesonide 0.5 mg 08/26/24 14:45 09/10/24 19:15 Budesonide Respules 0.5 Mg/2 Ml Ampul.Neb. INHALATION 0.5 mg Q12H.RT JENNIFER Administration Calamine/Phenol 1 applic 08/28/24 09:00 09/11/24 06:44 Menthol/Lanolin/Calamine/Znox 113 Gm Tube TOPICAL Not Given TID JENNIFER Protocol Dexamethasone Sodium Phosphate 6 mg 09/01/24 10:00 09/11/24 09:55 Dexamethasone 10 Mg/Ml Vial IV 6 mg DAILY JENNIFER Administration Fluticasone Propionate 2 spray 09/01/24 10:00 09/11/24 09:57 Fluticasone 0.05% 1 Marion Nasal.Sry NASAL 2 spray DAILY JENNIFER Administration Pantoprazole Sodium 40 mg/ 110 mls @ 330 mls/hr 08/25/24 20:00 09/11/24 09:58 Sodium Chloride IV 330 mls/hr Q12 JENNIFER Administration Sodium Chloride 250 mls @ 15 mls/hr 08/25/24 18:51 IV .[id number] PRN Additional IVPB Infusion Sodium Chloride 250 mls @ 15 mls/hr 08/25/24 18:51 IV .[id number] PRN Saline Flush Vancomycin IV-PHARMACY TO DOSE 500 mls @ 250 mls/hr 09/04/24 09:36 1 each/ Sodium Chloride IV PRN PRN Rx to Dose Protocol Vancomycin HCl 750 mg/ Sodium 265 mls @ 250 mls/hr 09/05/24 02:30 09/11/24 04:44 Chloride IV Infused Q12H JENNIFER Infusion Potassium Chloride 10 meq in 100 mls @ 100 mls/hr 09/11/24 10:00 09/11/24 10:37 IV BOLUS 09/11/24 13:59 100 mls/hr Q1H JENNIFER Administration Insulin Human Lispro 0 unit 08/30/24 07:00 09/11/24 06:45 Insulin Lispro 100 Unit/Ml Insuln.Pen SC Not Given TIDAC JENNIFER Protocol Isosorbide Mononitrate 60 mg 09/03/24 10:00 09/11/24 09:56 Isosorbide Mononitrate 60 Mg Tablet PO 60 mg DAILY [facility] Administration Protocol Loratadine 10 mg 09/01/24 10:00 09/11/24 09:15 Loratadine 10 Mg Tablet PO Not Given DAILY [facility] Meclizine HCl 25 mg 08/30/24 16:52 09/04/24 14:17 Meclizine Hcl 25 Mg Tablet PO 25 mg TID PRN Administration dizziness Nitroglycerin 0.4 mg 08/25/24 18:48 Nitroglycerin (Inpatient Use) 0.4 Mg Tab.Subl SL Q5M PRN CARDIAC/CHEST PAIN Nystatin 1 applic 09/04/24 10:25 09/11/24 09:57 Nystatin Powder 15gm Bottle TOPICAL 1 applic BID [facility] Administration Protocol Ondansetron HCl 4 mg 08/25/24 18:48 09/03/24 17:51 Ondansetron 4 Mg/2 Ml Vial IV 4 mg Q8H PRN PRN Administration NAUSEA/VOMITING Potassium Chloride 20 meq 09/05/24 17:00 09/10/24 16:43 Potassium Chloride Oral Tablet 20 Meq PO 20 meq BIDCM [facility] Administration Sodium Chloride 10 - 40 ml 08/25/24 18:51 09/10/24 21:53 0.9% Saline Lock 10 Ml Syringe IV 10 ml UD PRN Administration SALINE FLUSH Vancomycin Protocol 1 lab 09/12/24 00:00 Vancomycin Trough/Random Due [facility] 09/12/24 04:00 [facility] History Diverticulitis 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 Closed pelvic fracture Pelvic fracture Fall from slipping Essential hypertension Hypertension Normocytic anemia Closed head injury Closed fracture of right hip Fall Adult failure to thrive Weakness Dizziness Fracture of rib Dilatation of aorta Chronic systolic (congestive) heart failure Angina pectoris Subdural hematoma Insomnia Urinary incontinence History of stroke Overactive bladder Allergic rhinitis COPD (chronic obstructive pulmonary disease) Asthma Vitamin D deficiency Edema Urinary tract infection Hallucinations Intellectual disability Encephalopathy Fall Hypokalemia Acute cystitis Acute ischemic stroke Left hip pain Decreased level of consciousness Lethargy Shortness of breath HLD (hyperlipidemia) Gastroesophageal reflux disease Cerebrovascular disease Benign essential HTN Home Medications ?Medication ?Instructions ?Recorded ?Last Taken ?Type atenolol 50 mg tablet 50 mg PO DAILY blood pressure 01/31/19 08/24/24 History atorvastatin 10 mg tablet 10 mg PO DAILY cholesterol 01/31/19 08/24/24 History clopidogrel 75 mg tablet 75 mg PO DAILY heart health 01/31/19 08/24/24 History loratadine 10 mg tablet 10 mg PO DAILY allergies 01/31/19 09/10/21 History omeprazole 20 mg capsule,delayed 20 mg PO DAILY GERD 01/31/19 09/10/21 History release potassium chloride 20 mEq 20 meq PO BID supplement 09/01/19 09/10/21 History tablet,extended release(part/cryst) albuterol sulfate 90 mcg/actuation 2 puff IH Q4H PRN PRN Wheezing 06/13/20 2 Weeks Ago History aerosol inhaler ~08/27/21 cholecalciferol (vitamin D3) 25 2,000 unit PO DAILY supplement 06/13/20 09/10/21 History mcg (1,000 unit) tablet melatonin 5 mg tablet 5 mg PO QHS PRN Sleep 09/10/21 Unknown History meclizine 25 mg tablet 25 mg PO TID PRN dizziness #30 tabs 09/11/21 Unknown Rx furosemide 40 mg tablet 80 mg PO DAILY CHF 12/01/21 08/24/24 History nitroglycerin 0.4 mg sublingual 0.4 mg sublingual Q5-15M PRN chest 12/01/21 Unknown Rx tablet pain #25 tabs amlodipine 2.5 mg tablet 2.5 mg PO DAILY blood pressure 01/25/22 08/24/24 History fluticasone 250 mcg-salmeterol 50 1 inh inhalation BID breathing 01/25/22 Unknown History mcg/dose blistr powdr for inhalation losartan 100 mg tablet See Rx Instructions .Route 04/13/23 Unknown Rx .COMPLEX blood pressure #28 tabs fluticasone propionate 50 2 spray intranasal DAILY allergies 08/31/24 Unknown History mcg/actuation nasal spray,suspension isosorbide mononitrate 60 mg 60 mg PO DAILY heart 08/31/24 Unknown History tablet,extended release 24 hr loperamide 2 mg capsule 2 mg PO Q6H PRN loose stool 08/31/24 Unknown History (Anti-Diarrheal (loperamide)) oxybutynin chloride 10 mg 10 mg PO DAILY bladder 08/31/24 Unknown History tablet,extended release 24 hr Allergy/AdvReac Type Severity Reaction Status Date / Time adhesive Allergy Rash Verified 07/12/24 13:54 amitriptyline Allergy CONFUSION Verified 07/12/24 13:54 codeine Allergy Hives Verified 07/12/24 13:54 hydrocodone bitartrate (From Allergy Hives Verified 07/12/24 13:54 Vicodin) Iodinated Contrast Media Allergy Hives Verified 07/12/24 13:54 (Iodinated Contrast Media - IV Dye) naproxen Allergy Unknown Verified 07/12/24 13:54 Penicillins Allergy Rash Verified 07/12/24 13:54 phenytoin sodium (From Allergy Hives Verified 07/12/24 13:54 Dilantin) phenytoin sodium extended Allergy Hives Verified 07/12/24 13:54 (From Dilantin) silicone Allergy Hives Verified 07/12/24 13:54 Family History Sister Heart disease Surgical History S/P ORIF (open reduction internal fixation) fracture History of umbilical hernia repair History of hysterectomy History of breast biopsy History of brain surgery S/P ORIF (open reduction internal fixation) fracture (~05/19/15) Social History household members: children and other details: Son. Smoking Status: Never smoker alcohol intake: never substance use type: does not use caffeine: Yes Type: carbonated beverages and coffee Review of Systems (Anesthesia) ROS Narrative System reviewed and no additional complaints, except as documented.
[2024-09-11] MEDS: Ipratropium/Albuterol Sulfate 3 ML AMPUL.NEB INHALATION (11:22)
--- NOTE | 2024-09-11 11:56 | PCM.PN.HOSP ---
Subjective Subjective Doing well, no issues overnight Objective Data Objective Data Vital Signs: Vital Signs Temp Pulse Resp BP Pulse Ox O2 Del Method O2 Flow Rate 97.6 F L 52 L 17 157/71 H 99 Room Air 2 09/11/24 11:03 09/11/24 11:22 09/11/24 11:22 09/11/24 11:03 09/11/24 11:03 09/11/24 10:23 09/11/24 11:03 FiO2 35 09/11/24 11:03 Oxygen Flow Rate (L/min) 2 Oxygen Delivery Method Room Air Weight: 192 lb 10.944 oz Body Mass Index (BMI) 30.9 Intake & Output: Intake and Output for Last 24 Hours 09/10/24 09/11/24 09/12/24 03:59 03:59 03:59 Intake Total 1100 / 1100 1600 / 1600 265 / 265 Output Total 1100 / 1100 200 / 200 Balance 0 / 0 1400 / 1400 265 / 265 Lab / Micro Data 09/11/24 06:20 09/11/24 06:20 Labs: Laboratory Results - last 24 hr 09/10/24 12:20: POC Glucose 133 H 09/10/24 17:25: POC Glucose 142 H 09/11/24 06:20: WBC 14.5 H, RBC 3.08 L, Hgb 9.7 L, Hct 28.4 L, MCV 92.2, MCH 31.5, MCHC 34.2, RDW Std Deviation 54.5 H, RDW Coeff of Taina 16.4 H, Plt Count 246, MPV 9.9, Immature Gran % (Auto) 1.700 H, Neut % (Auto) 84.1 H, Lymph % (Auto) 7.1 L, [place] % (Auto) 7.0, Eos % (Auto) 0.0, Baso % (Auto) 0.1, Absolute Neuts (auto) 12.2 H, Absolute Lymphs (auto) 1.03, Nucleated RBC % 0, Sodium 140, Potassium 3.3 L, Chloride 110 H, Carbon Dioxide 23.0, Anion Gap 7, BUN 15, Creatinine 0.70, Estim Creat Clear Calc 54.89, Est GFR (MDRD) Af Amer 101, Est GFR (MDRD) Non-Af 83, BUN/Creatinine Ratio 21.3 H, Glucose 105, Calcium 8.3 L, Phosphorus 2.8, Magnesium 2.0, POC Glucose 100 Micro: Microbiology 09/04/24 10:00 Urine, Catheterized Urine Culture - Final Yeast, not Suzan albicans 09/04/24 10:00 Nasal Secretion MRSA (PCR) - Final 09/04/24 09:45 Stool Clostridioides difficile (PCR) - Final 08/31/24 09:50 Mucosa - Nose SARS-CoV-2, Influenza & RSV (PCR) - Final SARS-CoV-2 (COVID 19 PCR) 08/26/24 14:17 Stool Stool Lactoferrin - Final 08/26/24 14:17 Stool Enteric Bacteriology - Final Physical Exam Narrative General: Alert, Oriented x2, Cooperative, No apparent distress HEENT: Atraumatic, PERRLA, EOMI, Normocephalic Oral: Moist Mucosa Neck: Supple, No JVD Lungs: Diminished, Normal air movement, No rhonchi, No wheeze, No rales Cardiovascular: Regular rate, Regular Rhythm, Normal S1, Normal S2, No murmurs Abdomen: Soft, Non Tender, Non-Distended, No Hepato-splenomegaly Extremities: No edema, Capillary Refill Less than 3 Seconds Skin: No rashes, No breakdown Musculoskeletal: No Tenderness to Palpation of Joints or Extremities Neurological: No focal neurological deficits, Motor Exam 5/5 strength throughout, Sensory exam intact to light touch and pain Psych/Mental Status: Normal Affect, Appropriate Assessment & Plan Assessment/Plan (1) Abdominal pain: (2) Lower GI bleed: (3) Neoplasm of ascending colon: PLAN: Plan 1. Lower GI bleed ? Patient was found to have a large bleeding villous adenoma on colonoscopy performed on 08/28/2024. General surgery was consulted plan was for patient to have undergone bowel resection however given her ongoing medical issues decision was made to place any surgical intervention on hold indefinitely. Patient also had CT of the abdomen and pelvis which was unremarkable for metastatic disease ? 09/06/2024; hemoglobin did drop from 9.4-8.5. Case was discussed with Dr. Calvin with general surgery. With patient clinical condition improving patient surgery has tentatively been scheduled for 09/11/2024 ? 09/07/2024;Patient hemoglobin levels continues to drop 8.1 as of this a.m. ? 09/08/2024 hemoglobin remained stable at 8.4 09/09/2024: Hemoglobin is stable at 9.1 09/11/2024: Plan for surgery today for right colectomy, hemoglobin is 9.7 2. Acute on chronic anemia ?Patient has been transfused with 3 unit PRBC since admission ? 09/06/2024; hemoglobin down to 8.5 we will continue with monitoring 3. Acute hypoxic respiratory failure ? Multifactorial including bilateral pulmonary embolism COVID 19 as well as superimposed bacterial pneumonia Resolved 4. COVID-19 pneumonia ? Patient was managed with Decadron as well as remdesivir 09/09/2024: Can come out of precautions tomorrow 09/10/2024: She has completed Decadron and is out of precautions 5. Bilateral pulmonary embolism ? Per stated by patient COVID-19 infection. Patient was deemed not a candidate for systemic anticoagulation given her active bleeding. Patient underwent IVC filter placement by Dr. Vital on 08/31/2024 6. Chronic congestive heart failure with preserved ejection fraction ? With preserved ejection fraction. Currently euvolemic. Echo from 01/13/2022 demonstrated EF of 65%. Patient is on furosemide 7. Pneumonia - Suspected to be secondary to gram-negative and gram-positive's, Blood and sputum cultures sent. Patient placed on Levaquin as well as vancomycin and placed on oxygen titrated to keep Pulse Ox greater than 90 ? 09/05/2024; patient improving clinically in addition WBC count is trending down we will continue with with the current antibiotic therapy including vancomycin and levofloxacin 09/09/2024: Continue with IV antibiotics can likely discontinue in the next 48 to 72 hours 8. Acute vertigo ? Treated symptomatically with meclizine 9. Hypertension ? Blood pressure controlled, home medications continued with dose adjustment as needed 10. Dyslipidemia ?Patient is on statin therapy, continued at home dose 11. History of previous CVA ? Patient is on Plavix which is currently being held given her active bleeding 12. GERD ? On PPI DVT: SCDs Charges/Coding Visit Charges Inpatient E&M: 47433 Subs Hosp L2
[2024-09-11] MEDS: Bupivacaine Mpf 0.5% 30 ML VIAL (12:58)
--- NOTE | 2024-09-11 13:00 | OP.PCM_ITS ---
Report of Operation Date of Procedure: 09/11/24 Pre-Operative Diagnosis: Ascending colon mass Post-Operative Diagnosis: Same Surgery/Procedure Performed:: Laparoscopic right hemicolectomy Type of Anesthesia: General/Regional Specimen's removed: Right colon Estimated Blood Loss (mL): 10 Description of Procedure: Patient was brought back to the operating room and general anesthesia was induced. A Rodney catheter was placed. The abdomen was prepped and draped in usual sterile fashion. A midline incision was made superior to the umbilicus and deepened the fascia which was elevated and incised. A port was placed into the abdomen and the abdomen is insufflated to 15 mmHg. Camera was inserted in the abdomen and inspected. The tattoo was visible in the ascending colon just proximal to the hepatic flexure. Under direct visualization a 5 mm port was placed in the midline superior and the epigastric area as well as in the right lower quadrant. Atraumatic graspers were used to grasp the right colon and followed to the area of tattoo which was just proximal to the hepatic flexure. Next using Enseal the white line of T[place]t was taken down laterally along the entire right colon and hepatic flexure. After the bowel was adequately mobilized an incision was made between the 2 upper midline ports and deepened to the fascia which was incised. Wound protector was placed. The right colon was delivered through the incision. The distal ileum was stapled across and divided using a AGUS stapler. Next the dissection of the hepatic flexure was finished and the pedicles to the colon were identified. The right middle colic was selected to take and the left middle colic was left in place. Between these 2 vessels the staple line was created and the transverse colon was divided. Enseal was used to take down the mesentery until the right colic pedicle was located. The right colic artery and vein were each isolated and clamped with a grasper and then Enseal was used to take down the vessels. Suture was placed on each of the artery and vein using 0 silk suture to ligate the vessels. There was good hemostasis of the pedicle. Next the corner of each staple line was removed and using a AGUS 75 stapler the distal small bowel was stapled to the mid transverse colon and a [id number] functional end to end fashion. The staple line was inspected and it was clear with no bleeding on the inside. The enterostomy was then grasped with [place] and closed with a TX 60 stapler. 3-0 silk suture was used to obtain hemostasis. A 3-0 silk crotch stitch was placed. Next the mesentery was closed with 3-0 Vicryl suture. Next the bowel was inspected once more and then returned to the abdomen. The abdomen was irrigated and suctioned dry. The omentum was draped over the bowel. Next the wound protector was removed and the midline fascia was closed with a #1 PDS suture it from the top and bottom meeting in the middle. Subcutaneous tissue was irrigate d and suctioned dry and closed with 4-0 Monocryl suture. The port site was closed with 4-0 Monocryl as well. All of the incisions were injected with local anesthetic. Patient was awoken and taken to PACU with Rodney in place. Admit VTE Documentation VTE Mechan Device Prophylaxis: SCD's
--- NOTE | 2024-09-11 13:20 | PCM.POST.ANE ---
Anesthesia: Postop Eval I Current Vital Signs Temperature: 97 F Pulse Rate: 60 Blood Pressure: 124/89 Respiratory Rate: 16 Pulse Ox: 96 Oxygen Delivery Method: Simple Mask Oxygen Flow Rate (L/min): 6 Assessment Airway patent: Yes Spontaneous unlabored respirations: Yes Mental status: Awake and Calm nausea: No Vomiting: No Anesthesia Complication: No Fluid Hydration Crystalloid volume administer (ml): 700 Total IV fluid infused: 700 Progress Note Anesthesia document: Postop Eval 1 completed: Yes
[2024-09-11] MEDS: Menthol/Lanolin/Calamine/Znox 113 GM Tube 1 APPLIC TOPICAL ×2 (14:54→21:25)
[2024-09-11] MEDS: 0.9% Saline Lock 10 ML Syringe IV ×2 (18:25→21:22)
[2024-09-11] MEDS: Morphine 2 MG/ML Syringe IV ×2 (18:26→21:21)
[2024-09-11 19:12] LABS: Bedside Glucose 124 mg/dL (74-106)
--- NOTE | 2024-09-11 21:38 | NURSING ---
Pt oxygen saturation is 95% on RA, but pt states she usually wears 3L qhs at home. This RN put pt on 3L of o2 for sleep/comfort w/ saturation of 98%. No further concerns at this time.
[2024-09-12] VITALS (13 sets, daily range): BP systolic 103–156; BP diastolic 53–86; PULSE 53–72; RESP 16–18; TEMP 36.4–36.5; O2SAT 97–100; BMI 30.7
[2024-09-12 00:06] LABS: Bedside Glucose 131 mg/dL (74-106)
[2024-09-12 02:41] LABS: Vancomycin, Trough Level 21.8 ug/mL (5.0-15.0)
--- NOTE | 2024-09-12 02:57 | PCM.RX.CS ---
Consult Antibiotic Management Pharmacy has been consulted to manage selected antibiotic: Vancomycin Type of Intervention Type of Consult: Follow-up Labs Labs: Sodium 140 mmol/L (136-145) 09/11/24 06:20 Potassium 3.3 mmol/L (3.5-5.1) L 09/11/24 06:20 Chloride 110 mmol/L (98-107) H 09/11/24 06:20 Carbon Dioxide 23.0 mmol/L (21.0-32.0) 09/11/24 06:20 Anion Gap 7 (5-15) 09/11/24 06:20 BUN 15 mg/dL (7-18) 09/11/24 06:20 Creatinine 0.70 mg/dL (0.55-1.02) 09/11/24 06:20 Est GFR (MDRD) Af Amer 101 mL/min (>60) 09/11/24 06:20 Est GFR (MDRD) Non-Af 83 mL/min (>60) 09/11/24 06:20 BUN/Creatinine Ratio 21.3 RATIO (10-20) H 09/11/24 06:20 Glucose 105 mg/dL (74-106) 09/11/24 06:20 Vancomycin Trough 21.8 ug/mL (5.0-15.0) H 09/12/24 02:00 Microbiology Microbiology: Microbiology 09/04/24 10:00 Urine, Catheterized Urine Culture - Final Yeast, not Suzan albicans 09/04/24 10:00 Nasal Secretion MRSA (PCR) - Final 09/04/24 09:45 Stool Clostridioides difficile (PCR) - Final 08/31/24 09:50 Mucosa - Nose SARS-CoV-2, Influenza & RSV (PCR) - Final SARS-CoV-2 (COVID 19 PCR) 08/26/24 14:17 Stool Stool Lactoferrin - Final 08/26/24 14:17 Stool Enteric Bacteriology - Final Goal Trough Goal Trough: 15-20 mcg/mL Pharmacy Plan for Drug Dosing Pharmacy Plan for Drug Dosing: Pharmacy Service will continue to monitor and adjust dosing as required. TROUGH 21.8 @ 9.5 HOURS. LAST DOSE HUNG 2 HOURS LATE, NO CHANGES, FOLLOW UP TROUGH IN 2 DAYS Follow-Up Labs Follow-Up Labs: Trough: Vancomycin Date/Time Labs Ordered Labs to be done on [date and time ordered]: 09/14 @ 0200
[2024-09-12] MEDS: Vancomycin HCl 750 MG in 0.9% Normal Saline (250mL Bag) 250 ML 250 MG IV (03:08)
[2024-09-12] MEDS: Morphine 2 MG/ML Syringe IV (05:42)
[2024-09-12] MEDS: 0.9% Saline Lock 10 ML Syringe IV ×3 (05:43→21:07)
[2024-09-12] MEDS: Menthol/Lanolin/Calamine/Znox 113 GM Tube 1 APPLIC TOPICAL ×3 (05:46→21:08)
[2024-09-12 06:41] LABS: Absolute Lymphocyte Count 0.78 X10^3/uL (0.83-4.51); Basophil# 0.03 X10^3/uL; Basophil% 0.1 % (0-1); Hematocrit 28.1 % (37-47); Hemoglobin 9.2 g/dL (12.0-15.0); Lymphocyte # 0.78 X10^3/ul (0.83-4.51); Lymphocyte % 3.9 % (19-41); Mean Corp Hgb Conc 32.7 g/dL (32-36); Mean Corpuscular Hgb 30.7 pg (27.0-32.0); Mean Corpuscular Volume 93.7 fL (81-99); Mean Platelet Vol. 10.1 fl (6.2-12.0); Monocyte# 1.12 X10^3/uL; Monocyte% 5.6 % (0-10); NRBC Flagged by Analyzer 0 % (0-5); Neutrophil # 17.98 X10^3/uL (2.7-7.7); Neutrophil % 89.2 % (47-70); Platelet Count 227 K/mm3 (150-450); RBC Distribution Width CV 16.5 % (11.6-14.6); RBC Distribution Width SD 56.2 fl (35.1-43.9); White Blood Count 20.2 K/mm3 (4.4-11.0)
[2024-09-12 06:54] LABS: Bedside Glucose 111 mg/dL (74-106)
[2024-09-12 07:06] LABS: Anion Gap 6 (5-15); BUN 20 mg/dL (7-18); BUN/Creat Ratio 26.8 RATIO (10-20); Calcium,Total 8.5 mg/dL (8.5-10.1); Chloride 112 mmol/L (98-107); Creatinine, Serum 0.74 mg/dL (0.55-1.02); EST Glomerular Filtration Rate 78 mL/min (>60); Est Glom Filt Rate - Afr Amer 95 mL/min (>60); Estimated Creatinine Clearance 54.98 ml/min; Glucose 120 mg/dL (74-106); Potassium 3.9 mmol/L (3.5-5.1); Sodium Level 138 mmol/L (136-145)
--- NOTE | 2024-09-12 07:13 | PCM.PN.SRG ---
Subjective Subjective Patient is evaluated resting comfortably in bed. She notes passing flatus overnight. She denies any bowel movement. She denies nausea, vomiting, belching. She notes abdominal pain/soreness near the incisions. Objective Data Objective Data Vital Signs: Vital Signs Temp Pulse Resp BP Pulse Ox O2 Del Method O2 Flow Rate 97.5 F L 60 18 144/69 H 99 Nasal Cannula 2 09/12/24 05:37 09/12/24 05:37 09/12/24 05:37 09/12/24 05:37 09/12/24 05:37 09/12/24 05:37 09/12/24 05:37 FiO2 35 09/11/24 11:03 Oxygen Flow Rate (L/min) 2 Oxygen Delivery Method Nasal Cannula Weight: 191 lb 5.78 oz Body Mass Index (BMI) 30.7 Intake & Output: Intake and Output for Last 24 Hours 09/10/24 09/11/24 09/12/24 23:59 23:59 23:59 Intake Total 1600 / 1600 1150 / 1150 265 / 265 Output Total 200 / 200 1250 / 1250 Balance 1400 / 1400 -100 / -100 265 / 265 Lab / Micro Data 09/12/24 06:14 09/12/24 06:14 Labs: Laboratory Results - last 24 hr 09/11/24 15:01: POC Glucose 124 H 09/11/24 21:19: POC Glucose 131 H 09/12/24 02:00: Vancomycin Trough 21.8 H 09/12/24 06:14: WBC 20.2 H, RBC 3.00 L, Hgb 9.2 L, Hct 28.1 L, MCV 93.7, MCH 30.7, MCHC 32.7, RDW Std Deviation 56.2 H, RDW Coeff of Taina 16.5 H, Plt Count 227, MPV 10.1, Immature Gran % (Auto) 1.200 H, Neut % (Auto) 89.2 H, Lymph % (Auto) 3.9 L, [place] % (Auto) 5.6, Eos % (Auto) 0.0, Baso % (Auto) 0.1, Absolute Neuts (auto) 18.0 H, Absolute Lymphs (auto) 0.78 L, Nucleated RBC % 0, Sodium 138, Potassium 3.9, Chloride 112 H, Carbon Dioxide 20.0 L, Anion Gap 6, BUN 20 H, Creatinine 0.74, Estim Creat Clear Calc 54.98, Est GFR (MDRD) Af Amer 95, Est GFR (MDRD) Non-Af 78, BUN/Creatinine Ratio 26.8 H, Glucose 120 H, Calcium 8.5 09/12/24 06:34: POC Glucose 111 H Micro: Microbiology 09/04/24 10:00 Urine, Catheterized Urine Culture - Final Yeast, not Suzan albicans 09/04/24 10:00 Nasal Secretion MRSA (PCR) - Final 09/04/24 09:45 Stool Clostridioides difficile (PCR) - Final 08/31/24 09:50 Mucosa - Nose SARS-CoV-2, Influenza & RSV (PCR) - Final SARS-CoV-2 (COVID 19 PCR) 08/26/24 14:17 Stool Stool Lactoferrin - Final 08/26/24 14:17 Stool Enteric Bacteriology - Final Physical Exam GI GI Narrative: Abdomen- soft, tenderness to palpation over the entire abdomen. Positive bowel sounds. Assessment & Plan Assessment/Plan (1) Neoplasm of ascending colon: PLAN: I am following this patient in conjunction with Dr. Peraza in Dr. Calvin's absence. She will independently evaluate this patient. Labs reviewed. WBC elevated this morning. Plan to d/c stinson. patient having good urine output Encourage in the chair three times per day Encourage walking Increase diet to clear liquids with Ensure clear We will continue to monitor this patient Charges/Coding Visit Charges Inpatient E&M: 69039 Subs Hosp L1 (post-op; no charge)
[2024-09-12] MEDS: Albuterol 2.5 MG/3 ML VIAL.NEB. INHALATION ×3 (07:20→21:31)
[2024-09-12] MEDS: Budesonide Respules 0.5 MG/2 ML AMPUL.NEB. INHALATION ×2 (07:20→21:31)
[2024-09-12] MEDS: Loratadine 10 MG Tablet PO (10:28)
[2024-09-12] MEDS: Potassium Chloride Oral Tablet 20 MEQ PO ×2 (10:28→17:30)
[2024-09-12] MEDS: dexAMETHasone 10 MG/ML Vial 6 MG IV (10:28)
[2024-09-12] MEDS: levoFLOXacin 750 MG Tablet PO (10:29)
[2024-09-12] MEDS: Isosorbide Mononitrate 60 MG Tablet PO (10:29)
[2024-09-12] MEDS: Atorvastatin Calcium 10 MG Tablet PO (10:29)
[2024-09-12] MEDS: Nystatin Powder 15gm Bottle 1 APPLIC TOPICAL ×2 (10:30→21:09)
[2024-09-12] MEDS: NYSTATIN 500,000 UNIT/5 ML UDC 500000 UNIT PO ×4 (10:30→21:07)
[2024-09-12] MEDS: Fluticasone 0.05% 1 SPRAY NASAL.SRY 2 SPRAY NASAL (10:31)
[2024-09-12] MEDS: Atenolol 50 MG Tablet PO (10:39)
[2024-09-12] MEDS: Pantoprazole Sodium 40 MG in 0.9% Normal Saline (100mL MB+) 100 ML 330 MG IV ×2 (10:51→21:07)
--- NOTE | 2024-09-12 11:05 | PN.HOSP_ITS ---
Subjective Subjective Tolerated surgery well, no bowel movement she is having flatus. Her white count is likely reactive and her hemoglobin is stable Objective Data Objective Data Vital Signs: Vital Signs Temp Pulse Resp BP Pulse Ox O2 Del Method O2 Flow Rate 97.6 F L 53 L 16 143/56 H 98 Nasal Cannula 2 09/12/24 10:24 09/12/24 10:24 09/12/24 10:24 09/12/24 10:24 09/12/24 10:24 09/12/24 10:09/12/24 10:24 FiO2 35 09/11/24 11:03 Oxygen Flow Rate (L/min) 2 Oxygen Delivery Method Nasal Cannula Weight: 191 lb 5.78 oz Body Mass Index (BMI) 30.7 Intake & Output: Intake and Output for Last 24 Hours 09/11/24 09/12/24 09/13/24 03:59 03:59 03:59 Intake Total 1600 / 1600 1150 / 1150 265 / 265 Output Total 200 / 200 1250 / 1250 350 / 350 Balance 1400 / 1400 -100 / -100 -85 / -85 Lab / Micro Data 09/12/24 06:14 09/12/24 06:14 Labs: Laboratory Results - last 24 hr 09/11/24 15:01: POC Glucose 124 H 09/11/24 21:19: POC Glucose 131 H 09/12/24 02:00: Vancomycin Trough 21.8 H 09/12/24 06:14: WBC 20.2 H, RBC 3.00 L, Hgb 9.2 L, Hct 28.1 L, MCV 93.7, MCH 30.7, MCHC 32.7, RDW Std Deviation 56.2 H, RDW Coeff of Taina 16.5 H, Plt Count 227, MPV 10.1, Immature Gran % (Auto) 1.200 H, Neut % (Auto) 89.2 H, Lymph % (Auto) 3.9 L, [place] % (Auto) 5.6, Eos % (Auto) 0.0, Baso % (Auto) 0.1, Absolute Neuts (auto) 18.0 H, Absolute Lymphs (auto) 0.78 L, Nucleated RBC % 0, Sodium 138, Potassium 3.9, Chloride 112 H, Carbon Dioxide 20.0 L, Anion Gap 6, BUN 20 H , Creatinine 0.74, Estim Creat Clear Calc 54.98, Est GFR (MDRD) Af Amer 95, Est GFR (MDRD) Non-Af 78, BUN/Creatinine Ratio 26.8 H, Glucose 120 H, Calcium 8.5 09/12/24 06:34: POC Glucose 111 H Micro: Microbiology 09/04/24 10:00 Urine, Catheterized Urine Culture - Final Yeast, not Suzan albicans 09/04/24 10:00 Nasal Secretion MRSA (PCR) - Final 09/04/24 09:45 Stool Clostridioides difficile (PCR) - Final 08/31/24 09:50 Mucosa - Nose SARS-CoV-2, Influenza & RSV (PCR) - Final SARS-CoV-2 (COVID 19 PCR) 08/26/24 14:17 Stool Stool Lactoferrin - Final 08/26/24 14:17 Stool Enteric Bacteriology - Final Physical Exam Narrative General: Alert, Oriented x2, Cooperative, No apparent distress HEENT: Atraumatic, PERRLA, EOMI, Normocephalic Oral: Moist Mucosa Neck: Supple, No JVD Lungs: Diminished, Normal air movement, No rhonchi, No wheeze, No rales Cardiovascular: Regular rate, Regular Rhythm, Normal S1, Normal S2, No murmurs Abdomen: Soft, mildly tender around incisions, Non-Distended, No Hepato- splenomegaly Extremities: No edema, Capillary Refill Less than 3 Seconds Skin: Dressing CDI Musculoskeletal: No Tenderness to Palpation of Joints or Extremities Neurological: No focal neurological deficits, Motor Exam 5/5 strength throughout, Sensory exam intact to light touch and pain Psych/Mental Status: Normal Affect, Appropriate Assessment & Plan Assessment/Plan (1) Abdominal pain: (2) Lower GI bleed: (3) Neoplasm of ascending colon: PLAN: Plan 1. Lower GI bleed ? Patient was found to have a large bleeding villous adenoma on colonoscopy performed on 08/28/2024. General surgery was consulted plan was for patient to have undergone bowel resection however given her ongoing medical issues decision was made to place any surgical intervention on hold indefinitely. Patient also had CT of the abdomen and pelvis which was unremarkable for metastatic disease ? 09/06/2024; hemoglobin did drop from 9.4-8.5. Case was discussed with Dr. Calvin with general surgery. With patient clinical condition improving patient surgery has tentatively been scheduled for 09/11/2024 ? 09/07/2024;Patient hemoglobin levels continues to drop 8.1 as of this a.m. ? 09/08/2024 hemoglobin remained stable at 8.4 09/09/2024: Hemoglobin is stable at 9.1 09/11/2024: Plan for surgery today for right colectomy, hemoglobin is 9.7 09/12/2024: Surgery was successful, she is passing flatus but no bowel movements yet. Appreciate general surgery's assistance 2. Acute on chronic anemia ?Patient has been transfused with 3 unit PRBC since admission ? 09/06/2024; hemoglobin down to 8.5 we will continue with monitoring 3. Acute hypoxic respiratory failure ? Multifactorial including bilateral pulmonary embolism COVID 19 as well as superimposed bacterial pneumonia Resolved 4. COVID-19 pneumonia ? Patient was managed with Decadron as well as remdesivir 09/09/2024: Can come out of precautions tomorrow 09/10/2024: She has completed Decadron and is out of precautions 5. Bilateral pulmonary embolism ? Per stated by patient COVID-19 infection. Patient was deemed not a candidate for systemic anticoagulation given her active bleeding. Patient underwent IVC filter placement by Dr. Vital on 08/31/2024 6. Chronic congestive heart failure with preserved ejection fraction ? With preserved ejection fraction. Currently euvolemic. Echo from 01/13/2022 demonstrated EF of 65%. Patient is on furosemide on the outpatient side will restart when able 7. Pneumonia - Suspected to be secondary to gram-negative and gram-positive's, Blood and sputum cultures sent. Patient placed on Levaquin as well as vancomycin and placed on oxygen titrated to keep Pulse Ox greater than 90 ? 09/05/2024; patient improving clinically in addition WBC count is trending down we will continue with with the current antibiotic therapy including vancomycin and levofloxacin 09/09/2024: Continue with IV antibiotics can likely discontinue in the next 48 to 72 hours 09/12/2024: Discontinued vancomycin and Levaquin today 8. Acute vertigo ? Treated symptomatically with meclizine 9. Hypertension ? Blood pressure controlled, home medications continued with dose adjustment as needed 10. Dyslipidemia ?Patient is on statin therapy, continued at home dose 11. History of previous CVA ? Patient is on Plavix which is currently being held given her active bleeding, can restart on discharge 12. GERD ? On PPI DVT: SCDs Charges/Coding Visit Charges Inpatient E&M: 39439 Subs Hosp L2
[2024-09-12] MEDS: Ensure Clear 120 ML Liquid PO ×2 (11:48→17:29)
[2024-09-12] MEDS: Acetaminophen 325 MG Tablet 650 MG PO ×2 (11:51→21:11)
[2024-09-12 12:15] LABS: Bedside Glucose 125 mg/dL (74-106)
[2024-09-12] MEDS: Insulin Lispro 100 UNIT/ML INSULN.PEN SC (16:00)
[2024-09-12 16:21] LABS: Bedside Glucose 168 mg/dL (74-106)
[2024-09-13] MEDS: 0.9% Saline Lock 10 ML Syringe IV ×3 (02:13→21:01)
[2024-09-13] MEDS: Menthol/Lanolin/Calamine/Znox 113 GM Tube 1 APPLIC TOPICAL ×3 (02:13→20:56)
[2024-09-13] MEDS: Acetaminophen 325 MG Tablet 650 MG PO ×2 (02:13→21:00)
[2024-09-13 02:55] VITALS: BP 144/73; PULSE 66; RESP 18; TEMP 36.6; O2SAT 99
[2024-09-13 04:07] VITALS: BMI 30.9
[2024-09-13 07:01] VITALS: PULSE 68; RESP 16; O2SAT 96
[2024-09-13] MEDS: Albuterol 2.5 MG/3 ML VIAL.NEB. INHALATION ×2 (07:01→19:21)
[2024-09-13] MEDS: Budesonide Respules 0.5 MG/2 ML AMPUL.NEB. INHALATION ×2 (07:01→19:21)
[2024-09-13 07:02] LABS: Bedside Glucose 96 mg/dL (74-106)
[2024-09-13 07:03] LABS: Absolute Lymphocyte Count 1.02 X10^3/uL (0.83-4.51); Absolute Neutrophil Count 11.3 X10^3/uL (2.0-7.7); Basophil# 0.01 X10^3/uL; Basophil% 0.1 % (0-1); Hematocrit 26.4 % (37-47); Hemoglobin 8.6 g/dL (12.0-15.0); Lymphocyte # 1.02 X10^3/ul (0.83-4.51); Lymphocyte % 7.5 % (19-41); Mean Corp Hgb Conc 32.6 g/dL (32-36); Mean Corpuscular Hgb 30.8 pg (27.0-32.0); Mean Corpuscular Volume 94.6 fL (81-99); Mean Platelet Vol. 10.3 fl (6.2-12.0); Monocyte% 8.1 % (0-10); NRBC Flagged by Analyzer 0 % (0-5); Neutrophil # 11.34 X10^3/uL (2.7-7.7); Neutrophil % 83.1 % (47-70); Platelet Count 189 K/mm3 (150-450); RBC Distribution Width CV 16.3 % (11.6-14.6); RBC Distribution Width SD 56.9 fl (35.1-43.9); Red Blood Count 2.79 M/mm3 (4.2-5.4); White Blood Count 13.6 K/mm3 (4.4-11.0)
[2024-09-13 07:12] LABS: Anion Gap 5 (5-15); BUN 22 mg/dL (7-18); BUN/Creat Ratio 31.2 RATIO (10-20); Calcium,Total 8.3 mg/dL (8.5-10.1); Chloride 110 mmol/L (98-107); EST Glomerular Filtration Rate 83 mL/min (>60); Est Glom Filt Rate - Afr Amer 101 mL/min (>60); Estimated Creatinine Clearance 55.14 ml/min; Glucose 106 mg/dL (74-106); Potassium 3.8 mmol/L (3.5-5.1); Sodium Level 138 mmol/L (136-145)
[2024-09-13] MEDS: Potassium Chloride Oral Tablet 20 MEQ PO ×2 (08:53→16:24)
[2024-09-13 09:00] VITALS: BP 142/62; PULSE 65; RESP 16; TEMP 36.6; O2SAT 94
[2024-09-13] MEDS: Atenolol 50 MG Tablet PO (09:00)
[2024-09-13] MEDS: dexAMETHasone 10 MG/ML Vial 6 MG IV (09:00)
[2024-09-13] MEDS: Atorvastatin Calcium 10 MG Tablet PO (09:00)
[2024-09-13] MEDS: Loratadine 10 MG Tablet PO (09:00)
[2024-09-13] MEDS: NYSTATIN 500,000 UNIT/5 ML UDC 500000 UNIT PO ×4 (09:00→20:59)
[2024-09-13] MEDS: Fluticasone 0.05% 1 SPRAY NASAL.SRY 2 SPRAY NASAL (09:00)
[2024-09-13] MEDS: Nystatin Powder 15gm Bottle 1 APPLIC TOPICAL ×2 (09:01→20:57)
[2024-09-13] MEDS: Pantoprazole Sodium 40 MG in 0.9% Normal Saline (100mL MB+) 100 ML 330 MG IV ×2 (09:09→21:05)
--- NOTE | 2024-09-13 10:33 | PN.SURG_ITS ---
Subjective Subjective Patient is tolerating clears and reports she passed gas Objective Data Objective Data Vital Signs: Vital Signs Temp Pulse Resp BP Pulse Ox O2 Del Method O2 Flow Rate 97.8 F 65 16 142/62 H 94 Room Air 2 09/13/24 09:00 09/13/24 09:00 09/13/24 09:00 09/13/24 09:00 09/13/24 09:00 09/13/24 09:22 09/13/24 07:01 FiO2 35 09/11/24 11:03 Oxygen Flow Rate (L/min) 2 Oxygen Delivery Method Room Air Weight: 192 lb 7.417 oz Body Mass Index (BMI) 30.9 Intake & Output: Intake and Output for Last 24 Hours 09/11/24 09/12/24 09/13/24 23:59 23:59 23:59 Intake Total 1150 / 1150 1185 / 1185 230 / 230 Output Total 1250 / 1250 950 / 950 475 / 475 Balance -100 / -100 235 / 235 -245 / -245 Lab / Micro Data 09/13/24 06:27 09/13/24 06:27 Labs: Laboratory Results - last 24 hr 09/12/24 11:39: POC Glucose 125 H 09/12/24 15:58: POC Glucose 168 H 09/13/24 06:27: WBC 13.6 H, RBC 2.79 L, Hgb 8.6 L, Hct 26.4 L, MCV 94.6, MCH 30.8, MCHC 32.6, RDW Std Deviation 56.9 H, RDW Coeff of Taina 16.3 H, Plt Count 189, MPV 10.3, Immature Gran % (Auto) 1.200 H, Neut % (Auto) 83.1 H, Lymph % (Auto) 7.5 L, [place] % (Auto) 8.1, Eos % (Auto) 0.0, Baso % (Auto) 0.1, Absolute Neuts (auto) 11.3 H, Absolute Lymphs (auto) 1.02, Nucleated RBC % 0, Sodium 138, Potassium 3.8, Chloride 110 H, Carbon Dioxide 22.0, Anion Gap 5, BUN 22 H, Creatinine 0.70, Estim Creat Clear Calc 55.14, Est GFR (MDRD) Af Amer 101, Est GFR (MDRD) Non-Af 83, BUN/Creatinine Ratio 31.2 H, Glucose 106, Calcium 8.3 L 09/13/24 06:37: POC Glucose 96 Micro: Microbiology 09/04/24 10:00 Urine, Catheterized Urine Culture - Final Yeast, not Suzan albicans 09/04/24 10:00 Nasal Secretion MRSA (PCR) - Final 09/04/24 09:45 Stool Clostridioides difficile (PCR) - Final 08/31/24 09:50 Mucosa - Nose SARS-CoV-2, Influenza & RSV (PCR) - Final SARS-CoV-2 (COVID 19 PCR) 08/26/24 14:17 Stool Stool Lactoferrin - Final 08/26/24 14:17 Stool Enteric Bacteriology - Final Physical Exam Const oriented x3 and no apparent distress Resp normal respiratory effort GI soft to palpation and non-tender Assessment & Plan Assessment/Plan (1) Neoplasm of ascending colon: PLAN: Patient had right hemicolectomy she is tolerating clears. I will advance her to a transitional diet today. Brian Calvin MD Pager: [facility] [address] [place] [address] [address] [place] [address] Office:
[2024-09-13] MEDS: Insulin Lispro 100 UNIT/ML INSULN.PEN SC ×2 (11:02→16:23)
[2024-09-13] MEDS: Ensure Clear 120 ML Liquid PO ×2 (11:06→16:29)
--- NOTE | 2024-09-13 11:23 | PCM.PN.HOSP ---
Subjective Subjective Doing well, no issues overnight. Having flatus no bowel movements yet Objective Data Objective Data Vital Signs: Vital Signs Temp Pulse Resp BP Pulse Ox O2 Del Method O2 Flow Rate 97.8 F 65 16 142/62 H 94 Room Air 2 09/13/24 09:00 09/13/24 09:00 09/13/24 09:00 09/13/24 09:00 09/13/24 09:00 09/13/24 09:22 09/13/24 07:01 FiO2 35 09/11/24 11:03 Oxygen Flow Rate (L/min) 2 Oxygen Delivery Method Room Air Weight: 192 lb 7.417 oz Body Mass Index (BMI) 30.9 Intake & Output: Intake and Output for Last 24 Hours 09/12/24 09/13/24 09/14/24 03:59 03:59 03:59 Intake Total 1150 / 1150 1185 / 1185 230 / 230 Output Total 1250 / 1250 950 / 950 475 / 475 Balance -100 / -100 235 / 235 -245 / -245 Lab / Micro Data 09/13/24 06:27 09/13/24 06:27 Labs: Laboratory Results - last 24 hr 09/12/24 11:39: POC Glucose 125 H 09/12/24 15:58: POC Glucose 168 H 09/13/24 06:27: WBC 13.6 H, RBC 2.79 L, Hgb 8.6 L, Hct 26.4 L, MCV 94.6, MCH 30.8, MCHC 32.6, RDW Std Deviation 56.9 H, RDW Coeff of Taina 16.3 H, Plt Count 189, MPV 10.3, Immature Gran % (Auto) 1.200 H, Neut % (Auto) 83.1 H, Lymph % (Auto) 7.5 L, [place] % (Auto) 8.1, Eos % (Auto) 0.0, Baso % (Auto) 0.1, Absolute Neuts (auto) 11.3 H, Absolute Lymphs (auto) 1.02, Nucleated RBC % 0, Sodium 138, Potassium 3.8, Chloride 110 H, Carbon Dioxide 22.0, Anion Gap 5, BUN 22 H, Creatinine 0.70, Estim Creat Clear Calc 55.14, Est GFR (MDRD) Af Amer 101, Est GFR (MDRD) Non-Af 83, BUN/Creatinine Ratio 31.2 H, Glucose 106, Calcium 8.3 L 09/13/24 06:37: POC Glucose 96 Micro: Microbiology 09/04/24 10:00 Urine, Catheterized Urine Culture - Final Yeast, not Suzan albicans 09/04/24 10:00 Nasal Secretion MRSA (PCR) - Final 09/04/24 09:45 Stool Clostridioides difficile (PCR) - Final 08/31/24 09:50 Mucosa - Nose SARS-CoV-2, Influenza & RSV (PCR) - Final SARS-CoV-2 (COVID 19 PCR) 08/26/24 14:17 Stool Stool Lactoferrin - Final 08/26/24 14:17 Stool Enteric Bacteriology - Final Physical Exam Narrative General: Alert, Oriented x2, Cooperative, No apparent distress HEENT: Atraumatic, PERRLA, EOMI, Normocephalic Oral: Moist Mucosa Neck: Supple, No JVD Lungs: Diminished, Normal air movement, No rhonchi, No wheeze, No rales Cardiovascular: Regular rate, Regular Rhythm, Normal S1, Normal S2, No murmurs Abdomen: Soft, mildly tender around incisions, Non-Distended, No Hepato-splenomegaly Extremities: No edema, Capillary Refill Less than 3 Seconds Skin: Dressing CDI Musculoskeletal: No Tenderness to Palpation of Joints or Extremities Neurological: No focal neurological deficits, Motor Exam 5/5 strength throughout, Sensory exam intact to light touch and pain Psych/Mental Status: Normal Affect, Appropriate Assessment & Plan Assessment/Plan (1) Abdominal pain: (2) Lower GI bleed: (3) Neoplasm of ascending colon: PLAN: Plan 1. Lower GI bleed ? Patient was found to have a large bleeding villous adenoma on colonoscopy performed on 08/28/2024. General surgery was consulted plan was for patient to have undergone bowel resection however given her ongoing medical issues decision was made to place any surgical intervention on hold indefinitely. Patient also had CT of the abdomen and pelvis which was unremarkable for metastatic disease ? 09/06/2024; hemoglobin did drop from 9.4-8.5. Case was discussed with Dr. Calvin with general surgery. With patient clinical condition improving patient surgery has tentatively been scheduled for 09/11/2024 ? 09/07/2024;Patient hemoglobin levels continues to drop 8.1 as of this a.m. ? 09/08/2024 hemoglobin remained stable at 8.4 09/09/2024: Hemoglobin is stable at 9.1 09/11/2024: Plan for surgery today for right colectomy, hemoglobin is 9.7 09/12/2024: Surgery was successful, she is passing flatus but no bowel movements yet. Appreciate general surgery's assistance 09/13/2024: Will advance diet today if tolerating can start planning for discharge 2. Acute on chronic anemia ?Patient has been transfused with 3 unit PRBC since admission ? 09/06/2024; hemoglobin down to 8.5 we will continue with monitoring 3. Acute hypoxic respiratory failure ? Multifactorial including bilateral pulmonary embolism COVID 19 as well as superimposed bacterial pneumonia Resolved 4. COVID-19 pneumonia ? Patient was managed with Decadron as well as remdesivir 09/09/2024: Can come out of precautions tomorrow 09/10/2024: She has completed Decadron and is out of precautions 5. Bilateral pulmonary embolism ? Per stated by patient COVID-19 infection. Patient was deemed not a candidate for systemic anticoagulation given her active bleeding. Patient underwent IVC filter placement by Dr. Vital on 08/31/2024 6. Chronic congestive heart failure with preserved ejection fraction ? With preserved ejection fraction. Currently euvolemic. Echo from 01/13/2022 demonstrated EF of 65%. Patient is on furosemide on the outpatient side will restart when able 7. Pneumonia - Suspected to be secondary to gram-negative and gram-positive's, Blood and sputum cultures sent. Patient placed on Levaquin as well as vancomycin and placed on oxygen titrated to keep Pulse Ox greater than 90 ? 09/05/2024; patient improving clinically in addition WBC count is trending down we will continue with with the current antibiotic therapy including vancomycin and levofloxacin 09/09/2024: Continue with IV antibiotics can likely discontinue in the next 48 to 72 hours 09/12/2024: Discontinued vancomycin and Levaquin today 8. Acute vertigo ? Treated symptomatically with meclizine 9. Hypertension ? Blood pressure controlled, home medications continued with dose adjustment as needed 10. Dyslipidemia ?Patient is on statin therapy, continued at home dose 11. History of previous CVA ? Patient is on Plavix which is currently being held given her active bleeding, can restart on discharge 12. GERD ? On PPI DVT: SCDs Charges/Coding Visit Charges Inpatient E&M: 40453 Subs Hosp L2
[2024-09-13 11:24] LABS: Bedside Glucose 156 mg/dL (74-106)
[2024-09-13] MEDS: Isosorbide Mononitrate 60 MG Tablet PO (11:54)
--- NOTE | 2024-09-13 12:24 | CASEMGMT ---
Pre-cert will be started for [facility]. Melisa Abraham MSW ISHAN
--- NOTE | 2024-09-13 13:50 | CASEMGMT ---
Patient was approved for [facility]. However, pre-cert is good for admission starting 09-15. Melisa OLMSTEAD
[2024-09-13 15:00] VITALS: BP 130/59; PULSE 69; RESP 16; TEMP 36.6; O2SAT 97
[2024-09-13 16:39] LABS: Bedside Glucose 176 mg/dL (74-106)
[2024-09-13 19:21] VITALS: PULSE 80; RESP 24; O2SAT 90
[2024-09-13 20:54] VITALS: BP 146/73; PULSE 72; RESP 16; TEMP 36.8; O2SAT 99
[2024-09-14 03:18] VITALS: BMI 31.7
[2024-09-14 03:30] VITALS: BP 135/72; PULSE 70; RESP 16; TEMP 36.7; O2SAT 99
[2024-09-14] MEDS: Menthol/Lanolin/Calamine/Znox 113 GM Tube 1 APPLIC TOPICAL ×3 (06:29→22:40)
[2024-09-14 06:48] LABS: Bedside Glucose 110 mg/dL (74-106)
[2024-09-14] MEDS: Acetaminophen 325 MG Tablet 650 MG PO ×2 (06:51→22:54)
--- NOTE | 2024-09-14 07:02 | PCM.PN.SRG ---
Subjective Subjective Patient had several liquid bowel movements yesterday. Her only complaint today is a headache. Objective Data Objective Data Vital Signs: Vital Signs Temp Pulse Resp BP Pulse Ox O2 Del Method O2 Flow Rate 98.1 F 70 16 135/72 H 99 Nasal Cannula 3 09/14/24 03:30 09/14/24 03:30 09/14/24 03:30 09/14/24 03:30 09/14/24 03:30 09/14/24 03:30 09/14/24 03:30 FiO2 35 09/11/24 11:03 Oxygen Flow Rate (L/min) 3 Oxygen Delivery Method Nasal Cannula Weight: 197 lb 8.547 oz Body Mass Index (BMI) 31.7 Intake & Output: Intake and Output for Last 24 Hours 09/12/24 09/13/24 09/14/24 23:59 23:59 23:59 Intake Total 1185 / 1185 340 / 340 Output Total 950 / 950 675 / 675 Balance 235 / 235 -335 / -335 Lab / Micro Data 09/13/24 06:27 09/13/24 06:27 Labs: Laboratory Results - last 24 hr 09/13/24 06:27: WBC 13.6 H, RBC 2.79 L, Hgb 8.6 L, Hct 26.4 L, MCV 94.6, MCH 30.8, MCHC 32.6, RDW Std Deviation 56.9 H, RDW Coeff of Taina 16.3 H, Plt Count 189, MPV 10.3, Immature Gran % (Auto) 1.200 H, Neut % (Auto) 83.1 H, Lymph % (Auto) 7.5 L, [place] % (Auto) 8.1, Eos % (Auto) 0.0, Baso % (Auto) 0.1, Absolute Neuts (auto) 11.3 H, Absolute Lymphs (auto) 1.02, Nucleated RBC % 0, Sodium 138, Potassium 3.8, Chloride 110 H, Carbon Dioxide 22.0, Anion Gap 5, BUN 22 H, Creatinine 0.70, Estim Creat Clear Calc 55.14, Est GFR (MDRD) Af Amer 101, Est GFR (MDRD) Non-Af 83, BUN/Creatinine Ratio 31.2 H, Glucose 106, Calcium 8.3 L 09/13/24 06:37: POC Glucose 96 09/13/24 10:59: POC Glucose 156 H 09/13/24 16:22: POC Glucose 176 H 09/14/24 06:28: POC Glucose 110 H Micro: Microbiology 09/04/24 10:00 Urine, Catheterized Urine Culture - Final Yeast, not Suzan albicans 09/04/24 10:00 Nasal Secretion MRSA (PCR) - Final 09/04/24 09:45 Stool Clostridioides difficile (PCR) - Final 08/31/24 09:50 Mucosa - Nose SARS-CoV-2, Influenza & RSV (PCR) - Final SARS-CoV-2 (COVID 19 PCR) 08/26/24 14:17 Stool Stool Lactoferrin - Final 08/26/24 14:17 Stool Enteric Bacteriology - Final Physical Exam Const no apparent distress Resp clear to auscultation bilaterally GI soft to palpation and non-tender Assessment & Plan Assessment/Plan (1) Lower GI bleed: PLAN: Patient seems to be doing well and she is only complaining of a headache this morning. She is tolerating transitional diet and having bowel function. Okay to transfer to TCU when bed available. Brian Calvin MD Pager: [facility] [address] [place] [address], [address] [place] [address] Office:
[2024-09-14 07:07] VITALS: PULSE 84; RESP 20; O2SAT 92
[2024-09-14] MEDS: Albuterol 2.5 MG/3 ML VIAL.NEB. INHALATION ×2 (07:07→19:28)
[2024-09-14] MEDS: Budesonide Respules 0.5 MG/2 ML AMPUL.NEB. INHALATION ×2 (07:07→19:28)
[2024-09-14] MEDS: 0.9% Saline Lock 10 ML Syringe IV (09:23)
[2024-09-14] MEDS: Pantoprazole Sodium 40 MG in 0.9% Normal Saline (100mL MB+) 100 ML 330 MG IV ×2 (09:23→22:42)
[2024-09-14] MEDS: Isosorbide Mononitrate 60 MG Tablet PO (09:24)
[2024-09-14] MEDS: Potassium Chloride Oral Tablet 20 MEQ PO ×2 (09:24→16:00)
[2024-09-14] MEDS: dexAMETHasone 10 MG/ML Vial 6 MG IV (09:24)
[2024-09-14] MEDS: NYSTATIN 500,000 UNIT/5 ML UDC 500000 UNIT PO ×4 (09:24→22:40)
[2024-09-14] MEDS: Atenolol 50 MG Tablet PO (09:25)
[2024-09-14] MEDS: Loratadine 10 MG Tablet PO (09:25)
[2024-09-14] MEDS: Fluticasone 0.05% 1 SPRAY NASAL.SRY 2 SPRAY NASAL (09:25)
[2024-09-14] MEDS: Atorvastatin Calcium 10 MG Tablet PO (09:26)
[2024-09-14] MEDS: Nystatin Powder 15gm Bottle 1 APPLIC TOPICAL ×2 (09:26→22:40)
[2024-09-14 10:00] VITALS: BP 135/61; PULSE 74; RESP 16; TEMP 36.9; O2SAT 97
--- NOTE | 2024-09-14 10:55 | PN.HOSP_ITS ---
Subjective Subjective No issues overnight, doing well. She has flatus and bowel movements Objective Data Objective Data Vital Signs: Vital Signs Temp Pulse Resp BP Pulse Ox O2 Del Method O2 Flow Rate 98.4 F 74 16 135/61 H 97 Room Air 2 09/14/24 10:00 09/14/24 10:00 09/14/24 10:00 09/14/24 10:00 09/14/24 10:00 09/14/24 10:00 09/14/24 07:07 FiO2 35 09/11/24 11:03 Oxygen Flow Rate (L/min) 2 Oxygen Delivery Method Room Air Weight: 197 lb 8.547 oz Body Mass Index (BMI) 31.7 Intake & Output: Intake and Output for Last 24 Hours 09/13/24 09/14/24 09/15/24 03:59 03:59 03:59 Intake Total 1185 / 1185 340 / 340 110 / 110 Output Total 950 / 950 675 / 675 Balance 235 / 235 -335 / -335 110 / 110 Lab / Micro Data 09/13/24 06:27 09/13/24 06:27 Labs: Laboratory Results - last 24 hr 09/13/24 10:59: POC Glucose 156 H 09/13/24 16:22: POC Glucose 176 H 09/14/24 06:28: POC Glucose 110 H Micro: Microbiology 09/04/24 10:00 Urine, Catheterized Urine Culture - Final Yeast, not Suzan albicans 09/04/24 10:00 Nasal Secretion MRSA (PCR) - Final 09/04/24 09:45 Stool Clostridioides difficile (PCR) - Final 08/31/24 09:50 Mucosa - Nose SARS-CoV-2, Influenza & RSV (PCR) - Final SARS-CoV-2 (COVID 19 PCR) 08/26/24 14:17 Stool Stool Lactoferrin - Final 08/26/24 14:17 Stool Enteric Bacteriology - Final Physical Exam Narrative General: Alert, Oriented x2, Cooperative, No apparent distress HEENT: Atraumatic, PERRLA, EOMI, Normocephalic Oral: Moist Mucosa Neck: Supple, No JVD Lungs: Diminished, Normal air movement, No rhonchi, No wheeze, No rales Cardiovascular: Regular rate, Regular Rhythm, Normal S1, Normal S2, No murmurs Abdomen: Soft, mildly tender around incisions, Non-Distended, No Hepato- splenomegaly Extremities: No edema, Capillary Refill Less than 3 Seconds Skin: Dressing CDI Musculoskeletal: No Tenderness to Palpation of Joints or Extremities Neurological: No focal neurological deficits, Motor Exam 5/5 strength throughout, Sensory exam intact to light touch and pain Psych/Mental Status: Normal Affect, Appropriate Assessment & Plan Assessment/Plan (1) Abdominal pain: (2) Lower GI bleed: (3) Neoplasm of ascending colon: PLAN: Plan 1. Lower GI bleed ? Patient was found to have a large bleeding villous adenoma on colonoscopy performed on 08/28/2024. General surgery was consulted plan was for patient to have undergone bowel resection however given her ongoing medical issues decision was made to place any surgical intervention on hold indefinitely. Patient also had CT of the abdomen and pelvis which was unremarkable for metastatic disease ? 09/06/2024; hemoglobin did drop from 9.4-8.5. Case was discussed with Dr. Calvin with general surgery. With patient clinical condition improving patient surgery has tentatively been scheduled for 09/11/2024 ? 09/07/2024;Patient hemoglobin levels continues to drop 8.1 as of this a.m. ? 09/08/2024 hemoglobin remained stable at 8.4 09/09/2024: Hemoglobin is stable at 9.1 09/11/2024: Plan for surgery today for right colectomy, hemoglobin is 9.7 09/12/2024: Surgery was successful, she is passing flatus but no bowel movements yet. Appreciate general surgery's assistance 09/13/2024: Will advance diet today if tolerating can start planning for discharge 09/14/2024: Tolerating a diet, having some liquid bowel movements and flatus. Surgery states she is cleared for discharge to TCU, this will happen tomorrow and they have a bed 2. Acute on chronic anemia ?Patient has been transfused with 3 unit PRBC since admission ? 09/06/2024; hemoglobin down to 8.5 we will continue with monitoring 3. Acute hypoxic respiratory failure ? Multifactorial including bilateral pulmonary embolism COVID 19 as well as superimposed bacterial pneumonia Resolved 4. COVID-19 pneumonia ? Patient was managed with Decadron as well as remdesivir 09/09/2024: Can come out of precautions tomorrow 09/10/2024: She has completed Decadron and is out of precautions 5. Bilateral pulmonary embolism ? Per stated by patient COVID-19 infection. Patient was deemed not a candidate for systemic anticoagulation given her active bleeding. Patient underwent IVC filter placement by Dr. Vital on 08/31/2024 6. Chronic congestive heart failure with preserved ejection fraction ? With preserved ejection fraction. Currently euvolemic. Echo from 01/13/2022 demonstrated EF of 65%. Patient is on furosemide on the outpatient side will restart when able 7. Pneumonia - Suspected to be secondary to gram-negative and gram-positive's, Blood and sputum cultures sent. Patient placed on Levaquin as well as vancomycin and placed on oxygen titrated to keep Pulse Ox greater than 90 ? 09/05/2024; patient improving clinically in addition WBC count is trending down we will continue with with the current antibiotic therapy including vancomycin and levofloxacin 09/09/2024: Continue with IV antibiotics can likely discontinue in the next 48 to 72 hours 09/12/2024: Discontinued vancomycin and Levaquin today 8. Acute vertigo ? Treated symptomatically with meclizine 9. Hypertension ? Blood pressure controlled, home medications continued with dose adjustment as needed 10. Dyslipidemia ?Patient is on statin therapy, continued at home dose 11. History of previous CVA ? Patient is on Plavix which is currently being held given her active bleeding, can restart on discharge 12. GERD ? On PPI DVT: SCDs Charges/Coding Visit Charges Inpatient E&M: 93720 Subs Hosp L2
[2024-09-14] MEDS: Ensure Clear 120 ML Liquid PO ×2 (13:08→16:00)
[2024-09-14] MEDS: Furosemide 80 MG Tablet PO (13:08)
[2024-09-14 13:34] LABS: Bedside Glucose 166 mg/dL (74-106)
[2024-09-14] MEDS: Insulin Lispro 100 UNIT/ML INSULN.PEN SC (15:56)
[2024-09-14 16:00] VITALS: BP 132/62; PULSE 77; RESP 16; TEMP 36.6; O2SAT 98
[2024-09-14 16:15] LABS: Bedside Glucose 177 mg/dL (74-106)
[2024-09-14 19:28] VITALS: PULSE 75; RESP 24; O2SAT 91
[2024-09-14 22:00] VITALS: BP 139/72; PULSE 70; RESP 16; TEMP 36.4; O2SAT 98
[2024-09-15] VITALS (7 sets, daily range): BP systolic 137–147; BP diastolic 50–66; PULSE 60–77; RESP 16–21; TEMP 36.4–37; O2SAT 91–100; BMI 31.6
[2024-09-15] MEDS: Menthol/Lanolin/Calamine/Znox 113 GM Tube 1 APPLIC TOPICAL ×2 (06:11→13:50)
[2024-09-15 07:15] LABS: Bedside Glucose 115 mg/dL (74-106)
[2024-09-15] MEDS: Albuterol 2.5 MG/3 ML VIAL.NEB. INHALATION ×2 (07:25→12:47)
[2024-09-15] MEDS: Budesonide Respules 0.5 MG/2 ML AMPUL.NEB. INHALATION (07:25)
[2024-09-15] MEDS: Isosorbide Mononitrate 60 MG Tablet PO (08:44)
[2024-09-15] MEDS: Loratadine 10 MG Tablet PO (08:44)
[2024-09-15] MEDS: Furosemide 80 MG Tablet PO (08:44)
[2024-09-15] MEDS: Potassium Chloride Oral Tablet 20 MEQ PO (08:44)
[2024-09-15] MEDS: Ensure Clear 120 ML Liquid PO ×2 (08:44→11:14)
[2024-09-15] MEDS: Pantoprazole Sodium 40 MG in 0.9% Normal Saline (100mL MB+) 100 ML 330 MG IV (08:44)
[2024-09-15] MEDS: NYSTATIN 500,000 UNIT/5 ML UDC 500000 UNIT PO ×2 (08:44→13:50)
[2024-09-15] MEDS: Atenolol 50 MG Tablet PO (08:44)
[2024-09-15] MEDS: Atorvastatin Calcium 10 MG Tablet PO (08:45)
[2024-09-15] MEDS: Nystatin Powder 15gm Bottle 1 APPLIC TOPICAL (08:45)
[2024-09-15] MEDS: Insulin Lispro 100 UNIT/ML INSULN.PEN SC (11:14)
--- NOTE | 2024-09-15 11:28 | PCM.TXEXTCAR ---
Diet Diet Order/Speech Therapy: 09/13/24 07:10 Diet: Transitional Diet Comments: no reds Routine Orders/Code Status Routine Lab Work: CBC and BMP Code Status: DNRCC-A Wound(s) coccyx: Wound Type: excoriation abd: Wound Type: Surgical Incision Therapies Physical Therapy: Eval and Treat Occupational Therapy: Eval and Treat Problem/Diagnosis (1) Abdominal pain: Status: Acute Code(s): R10.9 - Unspecified abdominal pain (2) Lower GI bleed: Status: Acute Code(s): K92.2 - Gastrointestinal hemorrhage, unspecified (3) Neoplasm of ascending colon: Status: Acute Code(s): D49.0 - Neoplasm of unspecified behavior of digestive system Plan 1. Lower GI bleed ? Patient was found to have a large bleeding villous adenoma on colonoscopy performed on 08/28/2024. General surgery was consulted plan was for patient to have undergone bowel resection however given her ongoing medical issues decision was made to place any surgical intervention on hold indefinitely. Patient also had CT of the abdomen and pelvis which was unremarkable for metastatic disease ? 09/06/2024; hemoglobin did drop from 9.4-8.5. Case was discussed with Dr. Calvin with general surgery. With patient clinical condition improving patient surgery has tentatively been scheduled for 09/11/2024 ? 09/07/2024;Patient hemoglobin levels continues to drop 8.1 as of this a.m. ? 09/08/2024 hemoglobin remained stable at 8.4 09/09/2024: Hemoglobin is stable at 9.1 09/11/2024: Plan for surgery today for right colectomy, hemoglobin is 9.7 09/12/2024: Surgery was successful, she is passing flatus but no bowel movements yet. Appreciate general surgery's assistance 09/13/2024: Will advance diet today if tolerating can start planning for discharge 09/14/2024: Tolerating a diet, having some liquid bowel movements and flatus. Surgery states she is cleared for discharge to TCU, this will happen tomorrow and they have a bed 2. Acute on chronic anemia ?Patient has been transfused with 3 unit PRBC since admission ? 09/06/2024; hemoglobin down to 8.5 we will continue with monitoring 3. Acute hypoxic respiratory failure ? Multifactorial including bilateral pulmonary embolism COVID 19 as well as superimposed bacterial pneumonia Resolved 4. COVID-19 pneumonia ? Patient was managed with Decadron as well as remdesivir 09/09/2024: Can come out of precautions tomorrow 09/10/2024: She has completed Decadron and is out of precautions 5. Bilateral pulmonary embolism ? Per stated by patient COVID-19 infection. Patient was deemed not a candidate for systemic anticoagulation given her active bleeding. Patient underwent IVC filter placement by Dr. Vital on 08/31/2024 6. Chronic congestive heart failure with preserved ejection fraction ? With preserved ejection fraction. Currently euvolemic. Echo from 01/13/2022 demonstrated EF of 65%. Patient is on furosemide on the outpatient side will restart when able 7. Pneumonia - Suspected to be secondary to gram-negative and gram-positive's, Blood and sputum cultures sent. Patient placed on Levaquin as well as vancomycin and placed on oxygen titrated to keep Pulse Ox greater than 90 ? 09/05/2024; patient improving clinically in addition WBC count is trending down we will continue with with the current antibiotic therapy including vancomycin and levofloxacin 09/09/2024: Continue with IV antibiotics can likely discontinue in the next 48 to 72 hours 09/12/2024: Discontinued vancomycin and Levaquin today 8. Acute vertigo ? Treated symptomatically with meclizine 9. Hypertension ? Blood pressure controlled, home medications continued with dose adjustment as needed 10. Dyslipidemia ?Patient is on statin therapy, continued at home dose 11. History of previous CVA ? Patient is on Plavix which is currently being held given her active bleeding, can restart on discharge 12. GERD ? On PPI DVT: SCDs Allergies/Procedures Done in Hospital Allergies adhesive Allergy (Verified 07/12/24 13:54) Rash adhesive tape amitriptyline Allergy (Verified 07/12/24 13:54) CONFUSION codeine Allergy (Verified 07/12/24 13:54) Hives hydrocodone bitartrate (From Vicodin) Allergy (Verified 07/12/24 13:54) Hives Iodinated Contrast Media (Iodinated Contrast Media - IV Dye) Allergy (Verified 07/12/24 13:54) Hives OK WITH PRE-MEDICATION naproxen Allergy (Verified 07/12/24 13:54) Unknown Penicillins Allergy (Verified 07/12/24 13:54) Rash 01/2022: CAN TOLERATE CEPHALOSPORINS phenytoin sodium (From Dilantin) Allergy (Verified 07/12/24 13:54) Hives phenytoin sodium extended (From Dilantin) Allergy (Verified 07/12/24 13:54) Hives silicone Allergy (Verified 07/12/24 13:54) Hives Procedures: None Type of Care/Length of Stay Estimated LOS: Convalescent Care Less Than 30 days Type of Care Needed: Skilled Rehab Potential: Good Prognosis: Good Additional Orders/Day of Discharge Day of Discharge: 09/15/24 Dietary and Speech Recommendations Dietitian Recommendations/Changes: Recommend advanced diet as tolerated to cardiac - no reds. Continue 120ml ensure plus high protein TID with medpass. Will monitor weight, as available. Reviewed and approved by Shreya Jo, HOLLI, LD. Discharge Plan Admission Admit Date/Time: 08/25/24 12:44 Attending Provider: Ronald Ford Primary Care Provider: Linn Will Consulting Providers: Angelito Calabrese; Brian Calvin; Yung Vital; Mayra Obando; Katy Dubon; Evan Escalona Discharge Orders/Prescriptions Prescriptions: New nystatin 100,000 unit/gram cream 1 applic topical BID Qty: 30 0RF Continued furosemide 40 mg tablet 80 mg PO DAILY nitroglycerin 0.4 mg tablet, sublingual 0.4 mg SUBLINGUAL Q5-15M PRN (Reason: chest pain) Qty: 25 3RF atorvastatin 10 MG tablet 10 mg PO DAILY clopidogrel 75 MG tablet 75 mg PO DAILY omeprazole 20 MG capsule 20 mg PO DAILY atenolol 50 MG tablet 50 mg PO DAILY loratadine 10 MG tablet 10 mg PO DAILY potassium chloride 20 mEq tablet,ER particles/crystals 20 meq PO BID albuterol sulfate 90 mcg/actuation HFA aerosol inhaler 2 puff IH Q4H PRN PRN (Reason: Wheezing) cholecalciferol (vitamin D3) 1,000 UNIT tablet 2,000 unit PO DAILY melatonin 5 mg Tablet 5 mg PO QHS PRN (Reason: Sleep) meclizine 25 mg tablet 25 mg PO TID PRN (Reason: dizziness) Qty: 30 1RF fluticasone propion-salmeterol 250-50 mcg/dose Blister With Device 1 inh INHALATION BID amlodipine 2.5 mg Tablet 2.5 mg PO DAILY loperamide [Anti-Diarrheal (loperamide)] 2 mg capsule 2 mg PO Q6H PRN (Reason: loose stool) fluticasone propionate 50 mcg/actuation spray,suspension 2 spray INTRANASAL DAILY Rx Instructions: rinse mouth after use oxybutynin chloride 10 mg tablet extended release 24hr 10 mg PO DAILY isosorbide mononitrate 60 mg tablet extended release 24 hr 60 mg PO DAILY Rx Instructions: daily losartan 100 mg tablet See Rx Instructions .ROUTE .COMPLEX Qty: 28 12RF Dose Instruction: TAKE 1 TABLET BY MOUTH DAILY FOR BLOOD PRESSURE Rx Instructions: TAKE 1 TABLET BY MOUTH DAILY FOR BLOOD PRESSURE Referrals / Follow Up: Linn Will MD [Primary Care Provider] - Disposition Disposition (needs filled in before D/C Order can be placed): [facility]
[2024-09-15 11:40] LABS: Bedside Glucose 154 mg/dL (74-106)
--- NOTE | 2024-09-15 13:59 | NURSING ---
Gave report to nurse on TCU
--- NOTE | 2024-09-15 14:06 | DS.PCM_ITS ---
Providers Date of Admission: 08/25/24 Primary Care Physician: Dr. Linn Will MD Consultations 08/25/24 18:48 Consult: Gastroenterology Routine Consulting Provider: [facility] Reason for Consult: GI bleed EMERGENT Consult: No MD Notified: Yes Date Notified: 08/25/24 Time Notified: 12:45 Method of Notification: ED Physician Initiated 08/29/24 13:55 Consult: General Surgery Routine Consulting Provider: Brian Calvin Reason for Consult: R colon mass EMERGENT Consult: No MD Notified: Yes Date Notified: 08/29/24 Time Notified: 13:55 Method of Notification: Verbal 08/31/24 14:18 Consult: Vascular Surgery Routine Consulting Provider: Yung Vital Reason for Consult: FILTER-IVC EMERGENT Consult: No Notified: Yes Date Notified: 08/31/24 Time Notified: 14:18 Method of Notification: Verbal 09/01/24 07:51 Consult: Sound Editor / Pulmonary Medicine Routine Consulting Provider: Intensivists/Pulmonary Med Reason for Consult: hypoxia/covid/PE EMERGENT Consult: No Notified: Yes Date Notified: 09/01/24 Time Notified: 07:51 Method of Notification: Verbal Reason For Visit: GI BLEED Diagnosis Discharge Diagnosis (1) Abdominal pain: Status: Acute Code(s): R10.9 - Unspecified abdominal pain (2) Lower GI bleed: Status: Acute Code(s): K92.2 - Gastrointestinal hemorrhage, unspecified (3) Neoplasm of ascending colon: Status: Acute Code(s): D49.0 - Neoplasm of unspecified behavior of digestive system Medications at Discharge Home Medications atenolol 50 mg tablet 50 mg PO DAILY blood pressure 01/31/19 atorvastatin 10 mg tablet 10 mg PO DAILY cholesterol 01/31/19 clopidogrel 75 mg tablet 75 mg PO DAILY heart health 01/31/19 loratadine 10 mg tablet 10 mg PO DAILY allergies 01/31/19 omeprazole 20 mg capsule,delayed release 20 mg PO DAILY GERD 01/31/19 potassium chloride 20 mEq tablet,extended release(part/cryst) 20 meq PO BID supplement 09/01/19 albuterol sulfate 90 mcg/actuation aerosol inhaler 2 puff IH Q4H PRN PRN Wheezing 06/13/20 cholecalciferol (vitamin D3) 25 mcg (1,000 unit) tablet 2,000 unit PO DAILY supplement 06/13/20 melatonin 5 mg tablet 5 mg PO QHS PRN Sleep 09/10/21 meclizine 25 mg tablet 25 mg PO TID PRN dizziness #30 tabs 09/11/21 furosemide 40 mg tablet 80 mg PO DAILY CHF 12/01/21 nitroglycerin 0.4 mg sublingual tablet 0.4 mg sublingual Q5-15M PRN chest pain #25 tabs 12/01/21 amlodipine 2.5 mg tablet 2.5 mg PO DAILY blood pressure 01/25/22 fluticasone 250 mcg-salmeterol 50 mcg/dose blistr powdr for inhalation 1 inh inhalation BID breathing 01/25/22 losartan 100 mg tablet See Rx Instructions .Route .COMPLEX blood pressure #28 tabs 04/13/23 fluticasone propionate 50 mcg/actuation nasal spray,suspension 2 spray intranasal DAILY allergies 08/31/24 isosorbide mononitrate 60 mg tablet,extended release 24 hr 60 mg PO DAILY heart 08/31/24 loperamide 2 mg capsule (Anti-Diarrheal (loperamide)) 2 mg PO Q6H PRN loose stool 08/31/24 oxybutynin chloride 10 mg tablet,extended release 24 hr 10 mg PO DAILY bladder 08/31/24 nystatin 100,000 unit/gram topical cream 1 applic topical BID #30 grams 09/15/24 Hospital Course Operations - (Laparoscopic right hemicolectomy) Procedures Colonoscopy and IVC filter placement Summary of Care Provided Minutes Spent on Discharge: 38 Hospital Course: Per HPI: CARMEN LAND, naina a 88 F was brought by EMS for chief complaint of rectal bleed. Patient went to bathroom and felt that blood in her stool and also in the toilet bowl. Patient also having lower abdominal pain, felt like ripping sensation, intermittently for last 1 month. It comes and goes. EMS did EKG normal sinus rhythm, glucose 197 pulse ox 85% on room air and placed on 4 L of oxygen. Pulse ox increased to 97%. Otherwise vitals were in normal range. In ED, she describes her pain as more discomfort and cramping intermittently more on the left lower and upper quadrant. She has history of colonic diverticulosis and diverticulitis. She is on Plavix for history of a stroke, CHF and COPD. She does not have cardiac stent. Vitals labs and EKG reviewed Hospital Course: 1. Lower GI bleed ? Patient was found to have a large bleeding villous adenoma on colonoscopy performed on 08/28/2024. General surgery was consulted plan was for patient to have undergone bowel resection however given her ongoing medical issues decision was made to place any surgical intervention on hold indefinitely. Patient also had CT of the abdomen and pelvis which was unremarkable for metastatic disease ? 09/06/2024; hemoglobin did drop from 9.4-8.5. Case was discussed with Dr. Calvin with general surgery. With patient clinical condition improving patient surgery has tentatively been scheduled for 09/11/2024 ? 09/07/2024;Patient hemoglobin levels continues to drop 8.1 as of this a.m. ? 09/08/2024 hemoglobin remained stable at 8.4 09/09/2024: Hemoglobin is stable at 9.1 09/11/2024: Plan for surgery today for right colectomy, hemoglobin is 9.7 09/12/2024: Surgery was successful, she is passing flatus but no bowel movements yet. Appreciate general surgery's assistance 09/13/2024: Will advance diet today if tolerating can start planning for discharge 09/14/2024: Tolerating a diet, having some liquid bowel movements and flatus. Surgery states she is cleared for discharge to TCU, this will happen tomorrow and they have a bed 09/15/2024: Tolerating a diet that she is having liquid stools. Hemoglobin is stable and white count is improving. I discussed with her the plan for discharge today and she expressed understanding the risk and benefits of going to the correction and would like to go today. 2. Acute on chronic anemia ?Patient has been transfused with 3 unit PRBC since admission ? 09/06/2024; hemoglobin down to 8.5 we will continue with monitoring 09/15/2024: Recommend continued monitoring outpatient 3. Acute hypoxic respiratory failure ? Multifactorial including bilateral pulmonary embolism COVID 19 as well as superimposed bacterial pneumonia Resolved 4. COVID-19 pneumonia ? Patient was managed with Decadron as well as remdesivir 09/09/2024: Can come out of precautions tomorrow 09/10/2024: She has completed Decadron and is out of precautions 5. Bilateral pulmonary embolism ? Per stated by patient COVID-19 infection. Patient was deemed not a candidate for systemic anticoagulation given her active bleeding. Patient underwent IVC filter placement by Dr. Vital on 08/31/2024 6. Chronic congestive heart failure with preserved ejection fraction ? With preserved ejection fraction. Currently euvolemic. Echo from 01/13/2022 demonstrated EF of 65%. Patient is on furosemide on the outpatient side will restart when able 7. Pneumonia - Suspected to be secondary to gram-negative and gram-positive's, Blood and sputum cultures sent. Patient placed on Levaquin as well as vancomycin and placed on oxygen titrated to keep Pulse Ox greater than 90 ? 09/05/2024; patient improving clinically in addition WBC count is trending down we will continue with with the current antibiotic therapy including vancomycin and levofloxacin 09/09/2024: Continue with IV antibiotics can likely discontinue in the next 48 to 72 hours 09/12/2024: Discontinued vancomycin and Levaquin today 8. Acute vertigo ? Treated symptomatically with meclizine 9. Hypertension ? Blood pressure controlled, home medications continued with dose adjustment as needed 10. Dyslipidemia ?Patient is on statin therapy, continued at home dose 11. History of previous CVA ? Patient is on Plavix which is currently being held given her active bleeding, can restart on discharge 12. GERD ? On PPI Physical Exam Narrative General: Alert, Oriented x2, Cooperative, No apparent distress HEENT: Atraumatic, PERRLA, EOMI, Normocephalic Oral: Moist Mucosa Neck: Supple, No JVD Lungs: Diminished, Normal air movement, No rhonchi, No wheeze, No rales Cardiovascular: Regular rate, Regular Rhythm, Normal S1, Normal S2, No murmurs Abdomen: Soft, mildly tender around incisions, Non-Distended, No Hepato- splenomegaly Extremities: No edema, Capillary Refill Less than 3 Seconds Skin: Dressing CDI Musculoskeletal: No Tenderness to Palpation of Joints or Extremities Neurological: No focal neurological deficits, Motor Exam 5/5 strength throughout, Sensory exam intact to light touch and pain Psych/Mental Status: Normal Affect, Appropriate Weight / BMI Weight Weight: 197 lb 1.492 oz Body Mass Index (BMI) 31.6 ABG / Lab / Microbiology Data 09/13/24 06:27 09/13/24 06:27 Laboratory: Laboratory Results - last 24 hr 09/14/24 15:54: POC Glucose 177 H 10/25/24 06:09: POC Glucose 115 H 09/15/24 11:13: POC Glucose 154 H Microbiology: Microbiology 09/04/24 10:00 Urine, Catheterized Urine Culture - Final Yeast, not Suzan albicans 09/04/24 10:00 Nasal Secretion MRSA (PCR) - Final 09/04/24 09:45 Stool Clostridioides difficile (PCR) - Final 08/31/24 09:50 Mucosa - Nose SARS-CoV-2, Influenza & RSV (PCR) - Final SARS-CoV-2 (COVID 19 PCR) 08/26/24 14:17 Stool Stool Lactoferrin - Final 08/26/24 14:17 Stool Enteric Bacteriology - Final Meaningful Use Info Meaningful Use Meaningful Use Diagnoses (Choose all that apply): None applicable Ischemic Stroke Statin Dosing Therapy Reference: STATIN DOSE THERAPY REFERENCE: * Patients > 75 years receive moderate or high dose statin therapy. * Patients 75 years or YOUNGER should receive HIGH intensity statin dose unless contraindicated. You will be required to document reason for non-treatment if statin daily dose does not meet guidelines. HIGH DOSE STATIN THERAPY DAILY Atorvastatin > than or = to 40 mg Rosuvastatin > than or = to 20 mg Amlodipine + Atorvastatin > than or = to 2.5/40 mg Ezetimibe + Simvastatin 10/80 mg Simvastatin 80mg Discharge Plan Admission Admit Date/Time: 08/25/24 12:44 Attending Provider: Ronald Ford Primary Care Provider: Linn Will Consulting Providers: Angelito Calabrese; Brian Calvin; Yung Vital; Mayra Obando; Katy Dubon; Evan Escalona Discharge Orders/Prescriptions Prescriptions: New nystatin 100,000 unit/gram cream 1 applic topical BID Qty: 30 0RF Continued furosemide 40 mg tablet 80 mg PO DAILY nitroglycerin 0.4 mg tablet, sublingual 0.4 mg SUBLINGUAL Q5-15M PRN (Reason: chest pain) Qty: 25 3RF atorvastatin 10 MG tablet 10 mg PO DAILY clopidogrel 75 MG tablet 75 mg PO DAILY omeprazole 20 MG capsule 20 mg PO DAILY atenolol 50 MG tablet 50 mg PO DAILY loratadine 10 MG tablet 10 mg PO DAILY potassium chloride 20 mEq tablet,ER particles/crystals 20 meq PO BID albuterol sulfate 90 mcg/actuation HFA aerosol inhaler 2 puff IH Q4H PRN PRN (Reason: Wheezing) cholecalciferol (vitamin D3) 1,000 UNIT tablet 2,000 unit PO DAILY melatonin 5 mg Tablet 5 mg PO QHS PRN (Reason: Sleep) meclizine 25 mg tablet 25 mg PO TID PRN (Reason: dizziness) Qty: 30 1RF fluticasone propion-salmeterol 250-50 mcg/dose Blister With Device 1 inh INHALATION BID amlodipine 2.5 mg Tablet 2.5 mg PO DAILY loperamide [Anti-Diarrheal (loperamide)] 2 mg capsule 2 mg PO Q6H PRN (Reason: loose stool) fluticasone propionate 50 mcg/actuation spray,suspension 2 spray INTRANASAL DAILY Rx Instructions: rinse mouth after use oxybutynin chloride 10 mg tablet extended release 24hr 10 mg PO DAILY isosorbide mononitrate 60 mg tablet extended release 24 hr 60 mg PO DAILY Rx Instructions: daily losartan 100 mg tablet See Rx Instructions .ROUTE .COMPLEX Qty: 28 12RF Dose Instruction: TAKE 1 TABLET BY MOUTH DAILY FOR BLOOD PRESSURE Rx Instructions: TAKE 1 TABLET BY MOUTH DAILY FOR BLOOD PRESSURE Referrals / Follow Up: Linn Will MD [Primary Care Provider] - Disposition Disposition (needs filled in before D/C Order can be placed): [facility] Charges/Coding Visit Charges Inpatient E&M: 35340 Disch Hosp >30min
--- NOTE | 2024-09-15 14:17 | CASEMGMT ---
VICKY called patient's son Cuong and let him know that patient will be discharged to [facility] TCU today. Cuong said he would get clothes together for patient. Cuong thanked VICKY for the phone call. Plan: d/c to [facility] under skilled level of care. Melisa OLMSTEAD
== END 2024-09-15 14:25 | disposition skilled nursing facility (03) | DRG 329 ==
LOC: ED 14:06 → PCU 14:19
PROVIDERS: Anesthesiology; Family Medicine; Internal Medicine; Internal Medicine Gastroenterology; Surgery; Admitting Provider Internal Medicine; Emergency Provider Emergency Medicine; PCP Internal Medicine; Visit Provider Family Medicine
PROC: 0DJD8ZZ Inspection of Lower Intestinal Tract, Via Natural or Artificial Opening Endoscopic (ICD-10-PCS; CPT 45378; principal; 2024-08-28 12:25)
PROC: 0DTF4ZZ Resection of Right Large Intestine, Percutaneous Endoscopic Approach (ICD-10-PCS; CPT 44205; principal; 2024-09-11 11:15)
DX: D37.4 Neoplasm of uncertain behavior of colon (principal); I26.94 Multiple subsegmental thrombotic pulmonary emboli without acute cor pulmonale; J96.01 Acute respiratory failure with hypoxia; J15.69 Pneumonia due to other Gram-negative bacteria; J15.8 Pneumonia due to other specified bacteria; J12.82 Pneumonia due to coronavirus disease 2019; K57.31 Diverticulosis of large intestine without perforation or abscess with bleeding; U07.1 COVID-19; D68.32 Hemorrhagic disorder due to extrinsic circulating anticoagulants; J44.0 Chronic obstructive pulmonary disease with (acute) lower respiratory infection; I50.32 Chronic diastolic (congestive) heart failure; D62 Acute posthemorrhagic anemia; Z66 Do not resuscitate; I11.0 Hypertensive heart disease with heart failure; I65.23 Occlusion and stenosis of bilateral carotid arteries; K21.9 Gastro-esophageal reflux disease without esophagitis; E78.5 Hyperlipidemia, unspecified; I25.10 Atherosclerotic heart disease of native coronary artery without angina pectoris; K64.8 Other hemorrhoids; E87.6 Hypokalemia; N32.81 Overactive bladder; R42 Dizziness and giddiness; Z79.02 Long term (current) use of antithrombotics/antiplatelets; Z79.52 Long term (current) use of systemic steroids; Z79.899 Other long term (current) drug therapy; Z86.73 Personal history of transient ischemic attack (TIA), and cerebral infarction without residual deficits; Z86.711 Personal history of pulmonary embolism; Z86.16 Personal history of COVID-19; Z23 Encounter for immunization
CPT/HCPCS: 36415; 36600; 37191; 71045; 71275; 74174; 74176; 76937; 80048; 80053; 80076; 80202; 81001; 82378; 82803; 82962; 83036; 83605; 83630; 83690; 83735; 83880; 84075; 84100; 84443; 85014; 85018; 85025; 85027; 85610; 85730; 86644; 86850; 86900; 86901; 86920; 87086; 87088; 87493; 87506; 87631; 87641; 88305; 88307; 90662; 93005; 94002; 94003; 94640; 94660; 94668; 94762; 97110; 97116; 97162; 97166; 97530; 97535; 99152; 99284; C1769; C1880; C1894; J7030; J7040; J7050; P9016; Q9967; A4216; A4648; C1760; J0248; J1940; J2405; J3490

== ENCOUNTER 2024-09-15 14:42 | Inpatient (IN) | payer MEDICARE, MEDICAID, SELFPAY ==
--- NOTE | 2024-09-15 14:57 | HP.PCM_ITS ---
HPI - General General Date of Admission: 09/15/24 Date of Service: 09/15/24 Chief Complaint: Here for rehabilitation. HPI Narrative 08/25/2024 CARMEN LAND, is a 89 Female who presents to [facility] ED with GI bleed. GI bleed, on Plavix, Bright red blood per rectum, no stool. Left lower quadrant abdominal pain, cramping, sees Dr. Herrera. Baseline confusion. Hemoglobin 11.3, BUN 27, Creatinine 1.45. CT abdomen/pelvis negative acute findings. 08/25/2024 Admit [facility]. Toilet bowl filled up with blood. Serial H&H, hold Plavix, give PPI Q12 hours, consult GI for LGIB. Cipro/Flagyl IV for ischemic colitis. 08/26/2024 Hemoglobin dropped from 11.3 to 9.3. Prepare for colonoscopy. Cipro/Flagyl IV for colitis. 08/27/2024 Hemoglobin 8.2. Transfuse 1 unit PRBC. Abdominal pain improved. Blood pressure improved with holding blood pressure medications. 08/27/2024 Chest X-ray for coarse breath sounds. 08/28/2024 Dr. Herrera colonoscopy showed diverticulosis, descending colon, recto- sigmoid, sigmoid colon. Ascending colon tumor biopsied, malignant appearing, tattoeed. 08/28/[address] C/A/P, stop Ceftriaxone, stop Flagyl. Hemoglobin 9.4. Replace potassium. 08/29/2024 Rectal bleeding with clots, Family okay with surgery for right colonic mass, consult Dr. Calvin. Hemoglobin 10.1. 08/30/2024 Dizziness c/w vertigo, continued rectal bleeding/clots. Transfuse 2 units PRBC. IV diuretics for fluid overload. 08/31/2024 CT chest showed pulmonary embolism, not candidate for blood thinner. Dr. Vital inserted IVC filter. 08/31/2024 +covid, treat with dexamethasone, remdesivir. BiPAP 90% FiO2. 09/01/2024 Weaned oxygen to 2 liters per nasal cannula. Eliquis for pulmonary embolism if okay with General Surgery post op. 09/02/2024 Dizziness resolved. Breathing improved. Monitor cbcd. 09/03/2024 Surgery tomorrow. 09/04/2024 Start IV antibiotics for pneumonia (Levaquin, Vancomycin). Biopsy showed villous adenoma, recommend partial colectomy for ongoing bleeding. Total 3 units PRBC transfused. Covid treated with dexamethasone, remdesivir. Bilateral pulmonary embolism treated with IVC filter, no blood thinner 2/2 bleeding. 09/05/2024 Unwell, abdominal pain. WBC 11.2, Hold partial colectomy until feeling better. More awake, interactive. WBC 11, Hemoglobin 9.4 to 8.5. Vancomycin, Levaquin for pneumonia. 09/10/2024 Finished decadron for covid-19. Surgery planned 09/11/2024. 09/11/2024 Dr. Calvin performed laparoscopic right hemicolectomy. 09/12/2024 No BM, passing flatus. Finished Vancomycin/Levaquin for pneumonia. 09/13/2024 No overnight issues, no BM, passing flatus. Advance diet. 09/14/2024 Having BM, passing flatus, tolerating diet. Ok to discharge to TCU. 09/15/2024 Admit to TCU with debility, here for rehabilitation, strengthening, prior to discharge home with son. [facility] Medical History Diverticulitis 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 Closed pelvic fracture Pelvic fracture Fall from slipping Essential hypertension Hypertension Normocytic anemia Closed head injury Closed fracture of right hip Fall Adult failure to thrive Weakness Dizziness Fracture of rib Dilatation of aorta Chronic systolic (congestive) heart failure Angina pectoris Subdural hematoma Insomnia Urinary incontinence History of stroke Overactive bladder Allergic rhinitis COPD (chronic obstructive pulmonary disease) Asthma Vitamin D deficiency Edema Urinary tract infection Hallucinations Intellectual disability Encephalopathy Fall Hypokalemia Acute cystitis Acute ischemic stroke Left hip pain Decreased level of consciousness Lethargy Shortness of breath HLD (hyperlipidemia) Gastroesophageal reflux disease Cerebrovascular disease Benign essential HTN Home Medications ?Medication ?Instructions ?Recorded ?Last Taken ?Type atenolol 50 mg tablet 50 mg PO DAILY blood pressure 01/31/19 09/15/24 History atorvastatin 10 mg tablet 10 mg PO DAILY cholesterol 01/31/19 09/15/24 History clopidogrel 75 mg tablet 75 mg PO DAILY heart health 01/31/19 08/24/24 History loratadine 10 mg tablet 10 mg PO DAILY allergies 01/31/19 09/15/24 History omeprazole 20 mg capsule,delayed 20 mg PO DAILY GERD 01/31/19 09/10/21 History release potassium chloride 20 mEq 20 meq PO BID supplement 09/01/19 08/31/24 History tablet,extended release(part/cryst) albuterol sulfate 90 mcg/actuation 2 puff IH Q4H PRN PRN Wheezing 06/13/20 2 Weeks Ago History aerosol inhaler ~08/27/21 cholecalciferol (vitamin D3) 25 2,000 unit PO DAILY supplement 06/13/20 09/10/21 History mcg (1,000 unit) tablet melatonin 5 mg tablet 5 mg PO QHS PRN Sleep 09/10/21 Unknown History meclizine 25 mg tablet 25 mg PO TID PRN dizziness #30 tabs 09/11/21 09/04/24 Rx furosemide 40 mg tablet 80 mg PO DAILY CHF 12/01/21 09/15/24 History nitroglycerin 0.4 mg sublingual 0.4 mg sublingual Q5-15M PRN chest 12/01/21 Unknown Rx tablet pain #25 tabs amlodipine 2.5 mg tablet 2.5 mg PO DAILY blood pressure 01/25/22 08/24/24 History fluticasone 250 mcg-salmeterol 50 1 inh inhalation BID breathing 01/25/22 Unknown History mcg/dose blistr powdr for inhalation losartan 100 mg tablet See Rx Instructions .Route 04/13/23 Unknown Rx .COMPLEX blood pressure #28 tabs fluticasone propionate 50 2 spray intranasal DAILY allergies 08/31/24 09/14/24 History mcg/actuation nasal spray,suspension isosorbide mononitrate 60 mg 60 mg PO DAILY heart 08/31/24 09/15/24 History tablet,extended release 24 hr loperamide 2 mg capsule 2 mg PO Q6H PRN loose stool 08/31/24 Unknown History (Anti-Diarrheal (loperamide)) oxybutynin chloride 10 mg 10 mg PO DAILY bladder 08/31/24 Unknown History tablet,extended release 24 hr nystatin 100,000 unit/gram topical 1 applic topical BID redness #30 09/15/24 Unknown Rx cream grams Allergy/AdvReac Type Severity Reaction Status Date / Time adhesive Allergy Rash Verified 07/12/24 13:54 amitriptyline Allergy CONFUSION Verified 07/12/24 13:54 codeine Allergy Hives Verified 07/12/24 13:54 hydrocodone bitartrate (From Allergy Hives Verified 07/12/24 13:54 Vicodin) Iodinated Contrast Media Allergy Hives Verified 07/12/24 13:54 (Iodinated Contrast Media - IV Dye) naproxen Allergy Unknown Verified 07/12/24 13:54 Penicillins Allergy Rash Verified 07/12/24 13:54 phenytoin sodium (From Allergy Hives Verified 07/12/24 13:54 Dilantin) phenytoin sodium extended Allergy Hives Verified 07/12/24 13:54 (From Dilantin) silicone Allergy Hives Verified 07/12/24 13:54 Family History Sister Heart disease Surgical History S/P ORIF (open reduction internal fixation) fracture History of umbilical hernia repair History of hysterectomy History of breast biopsy History of brain surgery S/P ORIF (open reduction internal fixation) fracture (~05/19/15) Social History household members: children and other details: Son. Smoking Status: Never smoker alcohol intake: never substance use type: does not use caffeine: Yes Type: carbonated beverages and coffee ROS Constitutional Constitutional: Reports weakness; Denies chills, fever(s) or weight gain ENT HEENT: Denies headache(s), nasal congestion or nasal discharge Cardiovascular Cardiovascular: Denies chest pain or palpitations Respiratory/Chest Respiratory/Chest: Denies cough, excessive phlegm production or shortness of breath with exertion Gastrointestinal Gastrointestinal: Denies abdominal pain, nausea or vomiting Genitourinary Genitourinary: Denies dysuria Musculoskeletal Musculoskeletal: Denies joint pain or joint swelling Integumentary Integumentary: Denies rash or wounds Neurologic Neurologic: Denies focal weakness, numbness or tingling Psychiatric Psychiatric: Denies anxiety, auditory hallucinations, depression, homicidal ideation or suicidal ideation Physical Exam Const alert General Appearance: cooperative HEENT normocephalic Eyes PERRL and EOMs intact bilaterally Neck supple, no JVD and no carotid bruits Resp normal respiratory effort, normal air movement and clear to auscultation bilaterally Cardio regular rate and regular rhythm GI normal to inspection, nondistended, normoactive bowel sounds, non-tender and non-distended GI Narrative: Midline incision dressed. Extremity normal capillary refill Extremity Narrative: Right upper extremity PICC line. General Extremity: Negative for edema Skin no rashes or lesions noted General Skin Exam: no breakdown Psych affect normal Appearance: appropriate Assessment & Plan Assessment/Plan (1) Debility: (2) Lower GI bleed: (3) Colitis: (4) Pulmonary embolism: QUALIFIERS: Pulmonary embolism type: multiple subsegmental (without acute cor pulmonale) Qualified Code(s): I26.94 - Multiple subsegmental thrombotic pulmonary emboli without acute cor pulmonale (5) COVID-19: (6) Pneumonia: (7) Acute respiratory failure with hypoxia: (8) Status post partial colectomy: (9) Stroke: (10) Chronic obstructive pulmonary disease: (11) Chronic heart failure with preserved ejection fraction (HFpEF): (12) Coronary artery disease: (13) Diverticulosis: (14) Essential hypertension: (15) Hyperlipidemia: (16) Gastroesophageal reflux disease: (17) Overactive bladder: (18) Urinary retention: PLAN: Plan 89 year old female with below past medical history hospitalized for lower GI bleeding 2/2 ascending colon tumor, status post right partial colectomy, complicated by covid-19, pulmonary embolism, acute respiratory failure with hypoxia, pneumonia, colitis, admitted to TCU with debility, here for rehabilitation, strengthening, prior to discharge home with son. * Debility - PT/OT. * Cognition/Dysphagia - ST. * Pain - Tylenol 1000mg q6 prn pain (1-10). * Bowel - Loperamide 2mg q6 prn, senna/colace 1 tablet bid prn, Magnesium citrate 300mL po daily prn. * Adult immunization - Administer pneumonia vaccine, covid vaccine, flu vaccine as appropriate. * DVT prophylaxis - Hold, recent GI bleed. * COPD - Fluticasone Salmeterol 232-14 1 puff bid, Albuterol 2 puffs q4 prn. * Hypertension - Atenolol 50mg daily, Losartan 100mg daily, Amlodipine 2.5mg daily. * Hyperlipidemia - Atorvastatin 10mg qhs. * Vitamin D deficiency - D3 50mcg daily. * Coronary artery disease - Atenolol 50mg daily, Losartan 100mg daily, Isosorbide 60mg daily, Plavix 75mg daily, NTG 0.4mg sl q5m prn. * Nutrition - Ensure Plus 120mL po tidcm. * Allergic rhinitis - Flonase 2 sprays nasal daily, Loratadine 10mg daily. * Chronic HFpEF - Atenolol 50mg daily, Losartan 100mg daily, Isosorbide 60mg daily, Furosemide 80mg daily. * BPPV - Meclizine 25mg tid prn * Insomnia - Melatonin 5mg qhs prn. * Tinea Corporis - Nystatin topical bid. * GERD - Pantoprazole 20mg daily. * Overactive bladder - Tolterodine 2mg daily.
[2024-09-15 15:04] VITALS: BP 126/53; PULSE 65; RESP 18; TEMP 36.6; O2SAT 98
[2024-09-15 15:06] VITALS: BMI 30.3
[2024-09-15] MEDS: Ensure Plus High Protein 120 ML LIQUID PO (17:44)
[2024-09-15] MEDS: Potassium Chloride Oral Tablet 20 MEQ PO (17:44)
[2024-09-15] MEDS: Menthol/Lanolin/Calamine/Znox 113 GM Tube 1 APPLIC TOPICAL (23:11)
[2024-09-15] MEDS: Fluticasone/Salmeterol 232-14 Inhaler 1 PUFF INHALATION (23:11)
[2024-09-15] MEDS: Nystatin Ointment 1 APPLIC TOPICAL (23:12)
[2024-09-16 06:42] LABS: Absolute Lymphocyte Count 2.97 X10^3/uL (0.83-4.51); Absolute Neutrophil Count 9.9 X10^3/uL (2.0-7.7); Basophil# 0.02 X10^3/uL; Basophil% 0.1 % (0-1); Eosinophil# 0.09 X10^3/uL; Eosinophils% 0.6 % (0-5); Hematocrit 28.2 % (37-47); Hemoglobin 9.2 g/dL (12.0-15.0); Lymphocyte # 2.97 X10^3/ul (0.83-4.51); Lymphocyte % 20.9 % (19-41); Mean Corp Hgb Conc 32.6 g/dL (32-36); Mean Corpuscular Hgb 30.5 pg (27.0-32.0); Mean Corpuscular Volume 93.4 fL (81-99); Mean Platelet Vol. 10.3 fl (6.2-12.0); Monocyte# 1.12 X10^3/uL; Monocyte% 7.9 % (0-10); NRBC Flagged by Analyzer 0 % (0-5); Neutrophil # 9.86 X10^3/uL (2.7-7.7); Neutrophil % 69.3 % (47-70); Platelet Count 163 K/mm3 (150-450); RBC Distribution Width CV 16.2 % (11.6-14.6); RBC Distribution Width SD 54.8 fl (35.1-43.9); Red Blood Count 3.02 M/mm3 (4.2-5.4); White Blood Count 14.2 K/mm3 (4.4-11.0)
[2024-09-16 07:18] LABS: Anion Gap 4 (5-15); BUN 26 mg/dL (7-18); BUN/Creat Ratio 38.9 RATIO (10-20); Calcium,Total 8.1 mg/dL (8.5-10.1); Chloride 109 mmol/L (98-107); Creatinine, Serum 0.67 mg/dL (0.55-1.02); EST Glomerular Filtration Rate 89 mL/min (>60); Est Glom Filt Rate - Afr Amer 107 mL/min (>60); Estimated Creatinine Clearance 54.48 ml/min; Glucose 86 mg/dL (74-106); Sodium Level 141 mmol/L (136-145)
[2024-09-16] MEDS: Ensure Plus High Protein 120 ML LIQUID PO ×2 (09:04→18:07)
[2024-09-16] MEDS: Potassium Chloride Oral Tablet 20 MEQ PO ×2 (09:05→17:15)
[2024-09-16] MEDS: Tolterodine Tartrate 2 MG CAP.SA PO (09:07)
[2024-09-16] MEDS: Pantoprazole Sodium 20 MG Tablet PO ×2 (09:07→23:49)
[2024-09-16] MEDS: Loratadine 10 MG Tablet PO (09:07)
[2024-09-16] MEDS: Clopidogrel Bisulfate 75 MG Tablet PO (09:08)
[2024-09-16] MEDS: Furosemide 80 MG Tablet PO (09:08)
[2024-09-16] MEDS: Losartan Potassium 100 MG Tablet PO (09:08)
[2024-09-16] MEDS: Isosorbide Mononitrate 60 MG Tablet PO (09:08)
[2024-09-16] MEDS: amLODIPine 2.5 MG Tablet PO (09:08)
[2024-09-16] MEDS: Cholecalciferol (VIT D3) 25 MCG TABLET (1,000 UNITS) 50 MCG PO (09:09)
[2024-09-16] MEDS: Atenolol 50 MG Tablet PO (09:09)
[2024-09-16] MEDS: Fluticasone 0.05% 1 SPRAY NASAL.SRY 2 SPRAY NASAL (09:10)
[2024-09-16] MEDS: Fluticasone/Salmeterol 232-14 Inhaler 1 PUFF INHALATION ×2 (09:12→23:48)
[2024-09-16] MEDS: Nystatin Ointment 1 APPLIC TOPICAL ×2 (09:13→23:46)
[2024-09-16] MEDS: Menthol/Lanolin/Calamine/Znox 113 GM Tube 1 APPLIC TOPICAL ×2 (09:14→23:45)
[2024-09-16] MEDS: Tuberculin,Purif.prot.deriv. 50 TU/ML Vial 0.1 ML ID (11:44)
--- NOTE | 2024-09-16 12:00 | NURSING ---
Speech at bedside
--- NOTE | 2024-09-16 14:36 | NURSING ---
Carl on hold/recheck H&H Wednesday d/t dark bloody stools.
[2024-09-16] MEDS: Potassium Chloride Oral Tablet 20 MEQ 40 MEQ PO (14:47)
[2024-09-16] MEDS: Acetaminophen 500 MG Tablet 1000 MG PO (14:51)
[2024-09-16 16:00] VITALS: BP 104/65; PULSE 88; RESP 17; TEMP 36.1; O2SAT 96
[2024-09-16 23:00] VITALS: PULSE 88; O2SAT 94
[2024-09-16] MEDS: 0.9% Saline Lock 10 ML Syringe IV (23:49)
[2024-09-16] MEDS: Atorvastatin Calcium 10 MG Tablet PO (23:49)
[2024-09-17 06:38] LABS: Anion Gap 4 (5-15); BUN 22 mg/dL (7-18); BUN/Creat Ratio 33.3 RATIO (10-20); Calcium,Total 8.4 mg/dL (8.5-10.1); Chloride 108 mmol/L (98-107); Creatinine, Serum 0.66 mg/dL (0.55-1.02); EST Glomerular Filtration Rate 90 mL/min (>60); Est Glom Filt Rate - Afr Amer 109 mL/min (>60); Estimated Creatinine Clearance 54.48 ml/min; Glucose 96 mg/dL (74-106); Potassium 3.4 mmol/L (3.5-5.1); Sodium Level 140 mmol/L (136-145)
[2024-09-17] MEDS: Acetaminophen 500 MG Tablet 1000 MG PO (06:59)
[2024-09-17] MEDS: Losartan Potassium 100 MG Tablet PO (09:24)
[2024-09-17] MEDS: Menthol/Lanolin/Calamine/Znox 113 GM Tube 1 APPLIC TOPICAL (09:24)
[2024-09-17] MEDS: Potassium Chloride Oral Tablet 20 MEQ PO (09:24)
[2024-09-17] MEDS: Loratadine 10 MG Tablet PO (09:24)
[2024-09-17] MEDS: Tolterodine Tartrate 2 MG CAP.SA PO (09:25)
[2024-09-17] MEDS: Furosemide 80 MG Tablet PO (09:26)
[2024-09-17] MEDS: Isosorbide Mononitrate 60 MG Tablet PO (09:26)
[2024-09-17] MEDS: Fluticasone/Salmeterol 232-14 Inhaler 1 PUFF INHALATION (09:28)
[2024-09-17] MEDS: Fluticasone 0.05% 1 SPRAY NASAL.SRY 2 SPRAY NASAL (09:30)
[2024-09-17] MEDS: Pantoprazole Sodium 20 MG Tablet PO (09:31)
[2024-09-17] MEDS: Nystatin Ointment 1 APPLIC TOPICAL (09:31)
[2024-09-17] MEDS: Atenolol 50 MG Tablet PO (09:31)
[2024-09-17] MEDS: Cholecalciferol (VIT D3) 25 MCG TABLET (1,000 UNITS) 50 MCG PO (09:32)
[2024-09-17] MEDS: amLODIPine 2.5 MG Tablet PO (09:32)
[2024-09-17] MEDS: Ensure Plus High Protein 120 ML LIQUID PO (09:34)
[2024-09-17] MEDS: Albuterol IH (6.7 GM) 1 PUFF INHALER 2 PUFF INHALATION (09:42)
--- NOTE | 2024-09-17 11:44 | NURSING ---
Pt c/o of SOB SpO2 decreased in low 80's and pt placed on 6L NC and continued to fluctuate between high 80's and Low 90's. Pt encouraged to breath in through nose. Eladio ALEXANDRA gave pt's scheduled inhalers and PRN Albuterol. Pt again decreased to 78% pt placed on non rebreather. Dr. Alexander updated and N.O. received to sent pt to E.. Family called unable to leave voicemail d/t full inbox.
--- NOTE | 2024-09-17 19:56 | DS.PCM_ITS ---
Providers Date of Admission: 09/15/24 Primary Care Physician: Dr. Linn Will MD Reason For Visit: GI BLEED Diagnosis Discharge Diagnosis (1) Debility: Status: Acute Code(s): R53.81 - Other malaise (2) Lower GI bleed: Status: Acute Code(s): K92.2 - Gastrointestinal hemorrhage, unspecified (3) Colitis: Status: Acute Code(s): K52.9 - Noninfective gastroenteritis and colitis, unspecified (4) Pulmonary embolism: Status: Acute Code(s): I26.99 - Other pulmonary embolism without acute cor pulmonale Qualifiers: Pulmonary embolism type: multiple subsegmental (without acute cor pulmonale) Qualified Code(s): I26.94 - Multiple subsegmental thrombotic pulmonary emboli without acute cor pulmonale (5) COVID-19: Status: Acute Code(s): U07.1 - COVID-19 (6) Pneumonia: Status: Acute Code(s): J18.9 - Pneumonia, unspecified organism (7) Acute respiratory failure with hypoxia: Status: Acute Code(s): J96.01 - Acute respiratory failure with hypoxia (8) Status post partial colectomy: Status: Acute Code(s): Z90.49 - Acquired absence of other specified parts of digestive tract (9) Stroke: Status: Resolved Code(s): I63.9 - Cerebral infarction, unspecified (10) Chronic obstructive pulmonary disease: Status: Chronic Code(s): J44.9 - Chronic obstructive pulmonary disease, unspecified (11) Chronic heart failure with preserved ejection fraction (HFpEF): Status: Acute Code(s): I50.32 - Chronic diastolic (congestive) heart failure (12) Coronary artery disease: Status: Acute Code(s): I25.10 - Atherosclerotic heart disease of [place] coronary artery without angina pectoris (13) Diverticulosis: Status: Acute Code(s): K57.90 - Diverticulosis of intestine, part unspecified, without perforation or abscess without bleeding (14) Essential hypertension: Status: Acute Code(s): I10 - Essential (primary) hypertension (15) Hyperlipidemia: Status: Acute Code(s): E78.5 - Hyperlipidemia, unspecified (16) Gastroesophageal reflux disease: Status: Acute Code(s): K21.9 - Gastro-esophageal reflux disease without esophagitis (17) Overactive bladder: Status: Acute Code(s): N32.81 - Overactive bladder (18) Urinary retention: Status: Acute Code(s): R33.9 - Retention of urine, unspecified Plan 89 year old female with below past medical history hospitalized for lower GI bleeding 2/2 ascending colon tumor, status post right partial colectomy, complicated by covid-19, pulmonary embolism, acute respiratory failure with hypoxia, pneumonia, colitis, admitted to TCU with debility, here for rehabilitation, strengthening, prior to discharge home with son. * Debility - PT/OT. * Cognition/Dysphagia - ST. * Pain - Tylenol 1000mg q6 prn pain (1-10). * Bowel - Loperamide 2mg q6 prn, senna/colace 1 tablet bid prn, Magnesium citrate 300mL po daily prn. * Adult immunization - Administer pneumonia vaccine, covid vaccine, flu vaccine as appropriate. * DVT prophylaxis - Hold, recent GI bleed. * COPD - Fluticasone Salmeterol 232-14 1 puff bid, Albuterol 2 puffs q4 prn. * Hypertension - Atenolol 50mg daily, Losartan 100mg daily, Amlodipine 2.5mg daily. * Hyperlipidemia - Atorvastatin 10mg qhs. * Vitamin D deficiency - D3 50mcg daily. * Coronary artery disease - Atenolol 50mg daily, Losartan 100mg daily, Isosorbide 60mg daily, Plavix 75mg daily, NTG 0.4mg sl q5m prn. * Nutrition - Ensure Plus 120mL po tidcm. * Allergic rhinitis - Flonase 2 sprays nasal daily, Loratadine 10mg daily. * Chronic HFpEF - Atenolol 50mg daily, Losartan 100mg daily, Isosorbide 60mg daily, Furosemide 80mg daily. * BPPV - Meclizine 25mg tid prn * Insomnia - Melatonin 5mg qhs prn. * Tinea Corporis - Nystatin topical bid. * GERD - Pantoprazole 20mg daily. * Overactive bladder - Tolterodine 2mg daily. Medications at Discharge Home Medications atenolol 50 mg tablet 50 mg PO DAILY blood pressure 01/31/19 atorvastatin 10 mg tablet 10 mg PO DAILY cholesterol 01/31/19 clopidogrel 75 mg tablet 75 mg PO DAILY heart health 01/31/19 loratadine 10 mg tablet 10 mg PO DAILY allergies 01/31/19 omeprazole 20 mg capsule,delayed release 20 mg PO DAILY GERD 01/31/19 potassium chloride 20 mEq tablet,extended release(part/cryst) 20 meq PO BID supplement 09/01/19 albuterol sulfate 90 mcg/actuation aerosol inhaler 2 puff IH Q4H PRN PRN Wheezing 06/13/20 cholecalciferol (vitamin D3) 25 mcg (1,000 unit) tablet 2,000 unit PO DAILY supplement 06/13/20 melatonin 5 mg tablet 5 mg PO QHS PRN Sleep 09/10/21 meclizine 25 mg tablet 25 mg PO TID PRN dizziness #30 tabs 09/11/21 furosemide 40 mg tablet 80 mg PO DAILY CHF 12/01/21 nitroglycerin 0.4 mg sublingual tablet 0.4 mg sublingual Q5-15M PRN chest pain #25 tabs 12/01/21 amlodipine 2.5 mg tablet 2.5 mg PO DAILY blood pressure 01/25/22 fluticasone 250 mcg-salmeterol 50 mcg/dose blistr powdr for inhalation 1 inh inhalation BID breathing 01/25/22 losartan 100 mg tablet See Rx Instructions .Route .COMPLEX blood pressure #28 tabs 04/13/23 fluticasone propionate 50 mcg/actuation nasal spray,suspension 2 spray intranasal DAILY allergies 08/31/24 isosorbide mononitrate 60 mg tablet,extended release 24 hr 60 mg PO DAILY heart 08/31/24 loperamide 2 mg capsule (Anti-Diarrheal (loperamide)) 2 mg PO Q6H PRN loose stool 08/31/24 oxybutynin chloride 10 mg tablet,extended release 24 hr 10 mg PO DAILY bladder 08/31/24 nystatin 100,000 unit/gram topical cream 1 applic topical BID redness #30 grams 09/15/24 Hospital Course Operations None Procedures None Summary of Care Provided Minutes Spent on Discharge: 15 Hospital Course: 89 year old female with below past medical history hospitalized for lower GI bleeding 2/2 ascending colon tumor, status post right partial colectomy, complicated by covid-19, pulmonary embolism, acute respiratory failure with hypoxia, pneumonia, colitis, admitted to TCU with debility, here for rehabilitation, strengthening, prior to discharge home with son. 09/17/2024 Resident acute hypoxia, requiring 6 liters oxygen per nasal cannula to maintain pulsox 89%. Discharge to [facility] ED 09/17/2024 for evaluation. Weight / BMI Weight Weight: 85.2 kg Body Mass Index (BMI) 30.3 ABG / Lab / Microbiology Data 09/16/24 06:15 09/17/24 05:44 Laboratory: Laboratory Results - last 24 hr 09/17/24 05:44: Sodium 140, Potassium 3.4 L, Chloride 108 H, Carbon Dioxide 28.0, Anion Gap 4 L, BUN 22 H, Creatinine 0.66, Estim Creat Clear Calc 54.48, Est GFR (MDRD) Af Amer 109, Est GFR (MDRD) Non-Af 90, BUN/Creatinine Ratio 33.3 H, Glucose 96, Calcium 8.4 L D/C Instructions Discharge Diet: No restrictions Discharge Activity: Return to Normal Activity, May Shower and Use Walker Weight Bearing Status: Weight bearing as tolerated Call your doctor if you observe: Fever of 101 or Higher, Inability to urinate, Inability to have a bowel movement, Shortness of breath, Dizziness, Fainting spells, Swelling in the ankles, Chest pain and Uncontrolled pain Additional Instructions: Discharge to [facility] ED 09/17/2024 for evaluation. Meaningful Use Info Meaningful Use Meaningful Use Diagnoses (Choose all that apply): None applicable Ischemic Stroke Statin Dosing Therapy Reference: STATIN DOSE THERAPY REFERENCE: * Patients > 75 years receive moderate or high dose statin therapy. * Patients 75 years or YOUNGER should receive HIGH intensity statin dose unless contraindicated. You will be required to document reason for non-treatment if statin daily dose does not meet guidelines. HIGH DOSE STATIN THERAPY DAILY Atorvastatin > than or = to 40 mg Rosuvastatin > than or = to 20 mg Amlodipine + Atorvastatin > than or = to 2.5/40 mg Ezetimibe + Simvastatin 10/80 mg Simvastatin 80mg Discharge Plan Admission Admit Date/Time: 09/15/24 14:42 Primary Reason for Your Visit: Debility. Attending Provider: Tian Alexander Chi Primary Care Provider: Linn Will Instructions Additional Instructions / Restrictions: Discharge to [facility] ED 09/17/2024 for evaluation. Discharge Orders/Prescriptions Prescriptions: No Action furosemide 40 mg tablet 80 mg PO DAILY nitroglycerin 0.4 mg tablet, sublingual 0.4 mg SUBLINGUAL Q5-15M PRN (Reason: chest pain) Qty: 25 3RF atorvastatin 10 MG tablet 10 mg PO DAILY clopidogrel 75 MG tablet 75 mg PO DAILY omeprazole 20 MG capsule 20 mg PO DAILY atenolol 50 MG tablet 50 mg PO DAILY loratadine 10 MG tablet 10 mg PO DAILY potassium chloride 20 mEq tablet,ER particles/crystals 20 meq PO BID albuterol sulfate 90 mcg/actuation HFA aerosol inhaler 2 puff IH Q4H PRN PRN (Reason: Wheezing) cholecalciferol (vitamin D3) 1,000 UNIT tablet 2,000 unit PO DAILY melatonin 5 mg Tablet 5 mg PO QHS PRN (Reason: Sleep) meclizine 25 mg tablet 25 mg PO TID PRN (Reason: dizziness) Qty: 30 1RF fluticasone propion-salmeterol 250-50 mcg/dose Blister With Device 1 inh INHALATION BID amlodipine 2.5 mg Tablet 2.5 mg PO DAILY loperamide [Anti-Diarrheal (loperamide)] 2 mg capsule 2 mg PO Q6H PRN (Reason: loose stool) fluticasone propionate 50 mcg/actuation spray,suspension 2 spray INTRANASAL DAILY Rx Instructions: rinse mouth after use oxybutynin chloride 10 mg tablet extended release 24hr 10 mg PO DAILY isosorbide mononitrate 60 mg tablet extended release 24 hr 60 mg PO DAILY Rx Instructions: daily nystatin 100,000 unit/gram cream 1 applic topical BID Qty: 30 0RF losartan 100 mg tablet See Rx Instructions .ROUTE .COMPLEX Qty: 28 12RF Dose Instruction: TAKE 1 TABLET BY MOUTH DAILY FOR BLOOD PRESSURE Rx Instructions: TAKE 1 TABLET BY MOUTH DAILY FOR BLOOD PRESSURE Referrals / Follow Up: Linn Will MD [Primary Care Provider] - Disposition Disposition (needs filled in before D/C Order can be placed): Acute Care Hospital [facility]
--- NOTE | 2024-09-26 14:30 | MDS.RN ---
Information for the MDS was obtained from review of the clinical record, interview of resident, staff, and direct observation of resident?s care.
== END 2024-09-17 13:01 | disposition short-term general hospital (02) | DRG 949 ==
LOC: TCU 14:53
PROVIDERS: Admitting Provider Family Medicine Geriatric Medicine; PCP Internal Medicine; Referring Provider Family Medicine Geriatric Medicine; Visit Provider Family Medicine Geriatric Medicine
DX: Z48.815 Encounter for surgical aftercare following surgery on the digestive system (principal); J96.01 Acute respiratory failure with hypoxia; I26.94 Multiple subsegmental thrombotic pulmonary emboli without acute cor pulmonale; I50.42 Chronic combined systolic (congestive) and diastolic (congestive) heart failure; I25.10 Atherosclerotic heart disease of native coronary artery without angina pectoris; E55.9 Vitamin D deficiency, unspecified; B35.4 Tinea corporis; J44.89 Other specified chronic obstructive pulmonary disease; I11.0 Hypertensive heart disease with heart failure; E78.5 Hyperlipidemia, unspecified; K21.9 Gastro-esophageal reflux disease without esophagitis; K57.90 Diverticulosis of intestine, part unspecified, without perforation or abscess without bleeding; J30.9 Allergic rhinitis, unspecified; K52.9 Noninfective gastroenteritis and colitis, unspecified; H81.10 Benign paroxysmal vertigo, unspecified ear; Z86.16 Personal history of COVID-19; R33.9 Retention of urine, unspecified; Z90.49 Acquired absence of other specified parts of digestive tract; N32.81 Overactive bladder; Z79.899 Other long term (current) drug therapy; Z79.02 Long term (current) use of antithrombotics/antiplatelets; Z79.51 Long term (current) use of inhaled steroids
CPT/HCPCS: 36415; 80048; 85025; 92526; 92610; 97163; 97167; 97530; 97802; A4216

== ENCOUNTER 2024-09-17 10:11 | Inpatient (IN) | payer MEDICARE, MEDICAID, SELFPAY ==
[2024-09-17] VITALS (7 sets, daily range): BP systolic 110–135; BP diastolic 59–72; PULSE 67–79; RESP 13–20; TEMP 36.4–36.9; O2SAT 79–100; BMI 30.4; BMI 29.0
--- NOTE | 2024-09-17 11:15 | RAD_ITS ---
STUDY: X-RAY CHEST REASON FOR EXAM: Female, 89 years old. cough TECHNIQUE: Single AP portable view of the chest. COMPARISON: September 04, 2024 FINDINGS: 1. Redemonstration of chronic right lower lobe atelectasis. No acute abnormalities are present. 2. Chronic interstitial fibrosis of both lungs 3. Normal heart size 4. Stable osseous structures 5. Stable mediastinal contours There is no demonstrated abnormality of the visualized soft tissue structures of the upper abdomen. RAD/Chest 1 View (Portable) IMPRESSION: No acute process Electronically Signed: Milind Paz MD at 13:00 EDT ,
--- NOTE | 2024-09-17 11:16 | EKG12_ITS ---
Test Reason : SOB Blood Pressure : / mmHG Vent. Rate : 074 BPM Atrial Rate : 074 BPM P-R Int : 152 ms QRS Dur : 124 ms QT Int : 442 ms P-R-T Axes : 052 -25 218 degrees QTc Int : 490 ms Normal sinus rhythm Right bundle branch block Left ventricular hypertrophy with repolarization abnormality ( R in aVL , Romhilt-Dee ) Cannot rule out Septal infarct , age undetermined Abnormal ECG Confirmed by SHARRON LAM, CESILIA ([id number]), editor city DAYAN BARTLETT ([id number]) on 09/19/2024 7:49:02 AM Referred By: Confirmed By:CESILIA MCDERMOTT MD
[2024-09-17 11:39] LABS: Absolute Neutrophil Count 8.6 X10^3/uL (2.0-7.7); Basophil# 0.01 X10^3/uL; Basophil% 0.1 % (0-1); Eosinophil# 0.22 X10^3/uL; Eosinophils% 1.9 % (0-5); Hematocrit 28.3 % (37-47); Hemoglobin 9.3 g/dL (12.0-15.0); Lymphocyte % 14.8 % (19-41); Mean Corp Hgb Conc 32.9 g/dL (32-36); Mean Corpuscular Hgb 30.9 pg (27.0-32.0); Mean Platelet Vol. 10.7 fl (6.2-12.0); Monocyte# 0.79 X10^3/uL; Monocyte% 6.9 % (0-10); NRBC Flagged by Analyzer 0 % (0-5); Neutrophil # 8.64 X10^3/uL (2.7-7.7); Platelet Count 160 K/mm3 (150-450); RBC Distribution Width CV 16.4 % (11.6-14.6); Red Blood Count 3.01 M/mm3 (4.2-5.4); White Blood Count 11.5 K/mm3 (4.4-11.0)
[2024-09-17 11:45] LABS: Mucous, Urine 0 SEEN /hpf (<or=2+); Red Blood Cells-Urine 0 SEEN /hpf (0-5); White Blood Cells 0 SEEN /hpf (0-5)
[2024-09-17 11:48] LABS: Color, Urine Yellow (Yellow); Glucose, Dipstick Normal (Normal); Ketone-Dipstick Negative (Negative); Leukocyte Esterase-Dipstick Negative /ul (Negative); Nitrite-Dipstick Negative (Negative); Occult Blood-Urine 10 /ul (Negative); Protein-Dipstick Negative (Negative); Urine Bilirubin Dipstick Negative (Negative); Urine Clarity Clear (Clear); Urine Urobilinogen Normal (Normal)
[2024-09-17 11:48] LABS: Blood Gas Specimen Type VEN; O2 Delivery Device Not entered; SITE Not entered; VBG BASE EXCESS 5 mmol/L (-1.0-3.5); VBG Bicarbonate 26 mmol/L (22-26); VBG PO2 52 mmHg (25-40); VBG SO2 93 % (50-70); VBG TCO2 27 mmol/L (23-33); VBG pCO2 25.3 mmHg (41-51); VBG pH 7.63 (7.32-7.42)
--- NOTE | 2024-09-17 11:50 | EDS_ITS ---
HPI <NIKKO Guadarrama - Last Filed: 09/17/24 13:11> History of Present Illness Chief Complaint: Shortness of Breath Narrative Narrative: Patient is a 89-year-old female is currently in TCU for rehabilitation, history of GERD, hyperlipidemia, history of GI bleed, diverticulitis, CHF who presents to the emergency department for increased shortness of breath, hypoxia. The TCU nurses state that the patient is not being wearing her CPAP at night, she usually does and she has been staying with them for almost a month. Patient has been more confused and is here for evaluation. Patient has no significant complaints. 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 Closed pelvic fracture Pelvic fracture Fall from slipping Essential hypertension Hypertension Normocytic anemia Closed head injury Closed fracture of right hip Fall Adult failure to thrive Weakness Dizziness Fracture of rib Dilatation of aorta Chronic systolic (congestive) heart failure Angina pectoris Subdural hematoma Insomnia Urinary incontinence History of stroke Overactive bladder Allergic rhinitis COPD (chronic obstructive pulmonary disease) Asthma Vitamin D deficiency Edema Urinary tract infection Hallucinations Intellectual disability Encephalopathy Fall Hypokalemia Acute cystitis Acute ischemic stroke Left hip pain Decreased level of consciousness Lethargy Shortness of breath HLD (hyperlipidemia) Gastroesophageal reflux disease Cerebrovascular disease Benign essential HTN Home Medications ?Medication ?Instructions ?Recorded ?Last Taken ?Type atenolol 50 mg tablet 50 mg PO DAILY blood pressure 01/31/19 09/15/24 History atorvastatin 10 mg tablet 10 mg PO DAILY cholesterol 01/31/19 09/15/24 History clopidogrel 75 mg tablet 75 mg PO DAILY heart health 01/31/19 08/24/24 History loratadine 10 mg tablet 10 mg PO DAILY allergies 01/31/19 09/15/24 History omeprazole 20 mg capsule,delayed 20 mg PO DAILY GERD 01/31/19 09/10/21 History release potassium chloride 20 mEq 20 meq PO BID supplement 09/01/19 08/31/24 History tablet,extended release(part/cryst) albuterol sulfate 90 mcg/actuation 2 puff IH Q4H PRN PRN Wheezing 06/13/20 2 Weeks Ago History aerosol inhaler ~08/27/21 cholecalciferol (vitamin D3) 25 2,000 unit PO DAILY supplement 06/13/20 09/10/21 History mcg (1,000 unit) tablet melatonin 5 mg tablet 5 mg PO QHS PRN Sleep 09/10/21 Unknown History meclizine 25 mg tablet 25 mg PO TID PRN dizziness #30 tabs 09/11/21 09/04/24 Rx furosemide 40 mg tablet 80 mg PO DAILY CHF 12/01/21 09/15/24 History nitroglycerin 0.4 mg sublingual 0.4 mg sublingual Q5-15M PRN chest 12/01/21 Unknown Rx tablet pain #25 tabs amlodipine 2.5 mg tablet 2.5 mg PO DAILY blood pressure 01/25/22 08/24/24 History fluticasone 250 mcg-salmeterol 50 1 inh inhalation BID breathing 01/25/22 Unknown History mcg/dose blistr powdr for inhalation losartan 100 mg tablet See Rx Instructions .Route 04/13/23 Unknown Rx .COMPLEX blood pressure #28 tabs fluticasone propionate 50 2 spray intranasal DAILY allergies 08/31/24 09/14/24 History mcg/actuation nasal spray,suspension isosorbide mononitrate 60 mg 60 mg PO DAILY heart 08/31/24 09/15/24 History tablet,extended release 24 hr loperamide 2 mg capsule 2 mg PO Q6H PRN loose stool 08/31/24 Unknown History (Anti-Diarrheal (loperamide)) oxybutynin chloride 10 mg 10 mg PO DAILY bladder 08/31/24 Unknown History tablet,extended release 24 hr nystatin 100,000 unit/gram topical 1 applic topical BID redness #30 09/15/24 Unknown Rx cream grams Allergy/AdvReac Type Severity Reaction Status Date / Time adhesive Allergy Rash Verified 07/12/24 13:54 amitriptyline Allergy CONFUSION Verified 07/12/24 13:54 codeine Allergy Hives Verified 07/12/24 13:54 hydrocodone bitartrate (From Allergy Hives Verified 07/12/24 13:54 Vicodin) Iodinated Contrast Media Allergy Hives Verified 07/12/24 13:54 (Iodinated Contrast Media - IV Dye) naproxen Allergy Unknown Verified 07/12/24 13:54 Penicillins Allergy Rash Verified 07/12/24 13:54 phenytoin sodium (From Allergy Hives Verified 07/12/24 13:54 Dilantin) phenytoin sodium extended Allergy Hives Verified 07/12/24 13:54 (From Dilantin) silicone Allergy Hives Verified 07/12/24 13:54 Family History Sister Heart disease Surgical History S/P ORIF (open reduction internal fixation) fracture History of umbilical hernia repair History of hysterectomy History of breast biopsy History of brain surgery S/P ORIF (open reduction internal fixation) fracture (~05/19/15) Social History household members: children and other details: Son. Smoking Status: Never smoker alcohol intake: never substance use type: does not use caffeine: Yes Type: carbonated beverages and coffee ROS <NIKKO Guadarrama - Last Filed: 09/17/24 13:11> ROS ED ROS Narrative Secondary the patient's confusion, review of symptoms was unable to be obtained EXAM <NIKKO Guadarrama - Last Filed: 09/17/24 13:11> Physical Exam Narrative Exam Narrative: Vital signs reviewed. Vital signs are stable. Patient is alert and orient x 2. HEET: Head normocephalic atraumatic, TMs clear bilaterally. Posterior pharynx is clear, dry mucous membranes. Nares clear bilaterally. Neck: Supple with no lymphadenopathy or tenderness. No signs of meningismus. Cardiac: Regular rate and rhythm no murmurs gallops or rubs, equal peripheral pulses bilaterally. Respiratory: Lungs clear to auscultation bilaterally. No chest tenderness. Abdomen: Soft, nondistended. No abdominal bruit or pulsatile masses. No hepatosplenomegaly. Tenderness throughout abdominal examination Extremities: No peripheral edema, no signs of gross trauma or deformity. Active full range of motion of all extremities. Neuro: Cranial nerves II through XII intact, no focal neurological deficits. Skin: Clean dry and intact with no rash, purpura, petechiae, vesicles or pustules. Backs/flank: No CVA tenderness, no midline spinal tenderness, no deformity. Psych: Normal mood and affect. No SI, HI or acute psychosis. Const Vital Signs: 09/17/24 10:12 09/17/24 10:19 09/17/24 12:00 Temperature 98.4 F Temperature Source Oral Pulse Rate 78 79 Respiratory Rate 20 H Respiratory Effort Normal Non-Labored Respiratory Depth Normal Respiratory Pattern Normal Blood Pressure 117/67 110/72 Blood Pressure Mean 83 84 Pulse Ox 100 Oxygen Delivery Method Nasal Cannula Oxygen Flow Rate (L/min) 2 Positive obese Nutritional Appearance: obese <Dr. Brian Rodriguez MD - Last Filed: 09/17/24 12:35> Physical Exam Const Vital Signs: 09/17/24 10:12 09/17/24 10:19 09/17/24 12:00 Temperature 98.4 F Temperature Source Oral Pulse Rate 78 79 Respiratory Rate 20 H Respiratory Effort Normal Non-Labored Respiratory Depth Normal Respiratory Pattern Normal Blood Pressure 117/67 110/72 Blood Pressure Mean 83 84 Pulse Ox 100 Oxygen Delivery Method Nasal Cannula Oxygen Flow Rate (L/min) 2 MDM <NIKKO Guadarrama - Last Filed: 09/17/24 13:11> MDM Lab Data Labs: Laboratory Results - last 24 hr 09/17/24 09/17/24 11:20 11:40 WBC 11.5 H RBC 3.01 L Hgb 9.3 L Hct 28.3 L MCV 94.0 MCH 30.9 MCHC 32.9 RDW Std Deviation 56.0 H RDW Coeff of [place]ain[place] 16.4 H Plt Count 160 MPV 10.7 Immature Gran % (Auto) 1.300 H Neut % (Auto) 75.0 H Lymph % (Auto) 14.8 L [place] % (Auto) 6.9 Eos % (Auto) 1.9 Baso % (Auto) 0.1 Absolute Neuts (auto) 8.6 H Absolute Lymphs (auto) 1.70 Nucleated RBC % 0 Sodium 141 Potassium 3.1 L Chloride 108 H Carbon Dioxide 27.0 Anion Gap 6 BUN 21 H Creatinine 0.74 Estim Creat Clear Calc 54.58 Est GFR (MDRD) Af Amer 96 Est GFR (MDRD) Non-Af 79 BUN/Creatinine Ratio 28.5 H Glucose 100 Calcium 8.1 L Total Bilirubin 0.60 AST 12 L ALT 25 Alkaline Phosphatase 58 Troponin I High Sens 668 H* B-Natriuretic Peptide 135.5 H Total Protein 5.7 L Albumin 2.4 L Globulin 3.3 Albumin/Globulin Ratio 0.7 L Lipase 121 H Urine Color Yellow Urine Clarity Clear Urine pH 7.0 Ur Specific [place] 1.010 Urine Protein Negative Urine Glucose (UA) Normal Urine Ketones Negative Urine Occult Blood 10 H Urine Nitrite Negative Urine Bilirubin Negative Urine Urobilinogen Normal Ur Leukocyte Esterase Negative Urine RBC 0 SEEN Urine WBC 0 SEEN Ur Squamous Epith Cells 0-5 SEEN Urine Bacteria 1+ Urine Mucus 0 SEEN Urine Yeast 3+ ABG Data ABG results: ABG 09/17/24 11:42 Specimen Type JASMYN Sample Site Not entered O2 % 21.0 VBG pH 7.63 H* VBG pO2 52 H VBG HCO3 26 VBG Total CO2 27 VBG O2 Sat (Calc) 93 H VBG Base Excess 5 H POC Mix VBG pCO2 Pt Tmp 25.3 L O2 Delivery Device Not entered Crit Call To/Read Back Yes Blood Gas Notified Whom JW Blood Gas Notified Time 11:43:55 Radiography Diagnostic Testing: Clinical Impression(s) from Imaging Studies Chest X-Ray 09/17/24 11:15 IMPRESSION: No acute process Electronically Signed: Milind Paz MD at 13:00 EDT Reading Location ID and State: [facility] / [place] , Service support , EKG EKG shows a sinus rhythm with a right bundle branch block, rate of 74: Attestation: I personally reviewed and interpreted this EKG as follows: Interpretation: Sinus Rhythm Comments: EKG shows a rate of 74 bpm, normal sinus rhythm, right bundle branch block, IA interval 100 to 2 ms, QRS duration 124 ms, no acute ST elevation, no acute infarct noted. Treatment and Re-Evaluation :: Differential diagnosis includes however is not limited to: Acute respiratory failure, hypercapnia, septicemia, failure to thrive, diverticulitis, electrode abnormality, dehydration Patient appears to be in no obvious distress, patient is confused, alert x 2, vital signs are stable. She does not look toxic. Presenting to the emergency department from TCU for difficulty breathing. Patient did receive a blood gas, this showed the patient to be more alkalotic, CO2 is 25 O2 is 51, no evidence of any hypercapnia. Patient received a cardiac, pulmonary workup. COVID- 19/influenza/RSV. Two-view chest x-ray. All radiologic examinations were read, reviewed by the emergency department attending. From these reads, a plan of care will be put in place. Insert PE on reevaluation, patient remained stable. Patient's laboratory values show a slight leukocytosis with a white blood count of 11.5, this is stable over the last month. Patient's hemoglobin is 9.3 which is again stable. Patient's chemistries show potassium 3.1, this is stable. Patient's BUN/creatinine ratio 20.5 with a BNP of 135.5, lipase was 121, patient's troponin was elevated at 668, patient's last troponin in February 2023 was normal at 15. Patient's urinalysis showed no infection. COVID-19 influenza RSV was negative. Looking at the patient's past records, patient did have a right-sided Heema colectomy, this is why the patient's abdomen was hurting. The incision sites appear well. Patient will patient currently does have a PE, and is not anticoagulated secondary to a GI bleed. We do believe the patient needs to be admitted to the hospital, we will reach out to Dr. Obando. Patient will receive a CT scan of the chest to see the status of the pulmonary embolus. And this could be a cause of the elevated troponin. Patient will need to be premedicated for CAT scan, patient will be sent to the floor, will go to the CAT scan from the floor. <Dr. Brian Rodriguez MD - Last Filed: 09/17/24 12:35> [facility] Narrative Medical decision making narrative: I have personally performed a face to face assessment of the patient and have reviewed the SANDIP Note. I performed a substantive portion of the visit including all aspects of the following. My harris findings include: History is [89-year-old female recent complicated hospitalization for a GI bleed, partial colectomy, COVID, pulmonary emboli with placement of a Whitney filter. She was not on anticoagulation due to her GI bleed and recent surgery. Today had hypoxic episodes in the transitional care unit and was sent to the emergency department. Reportedly her pulse ox was in the 70s or 80s.] Exam is [[id number] female vital signs are stable. Currently afebrile. Her pulse ox is 100% on 2 L nasal cannula. She does not look septic toxic. She is in no distress. H EENT exam unremarkable. Neck nontender. Lungs clear. Heart regular rate and rhythm rate about 80. Chest wall ribs nontender. Abdomen soft mild tenderness. Well-healing laparoscopic surgical incisions dry and clean. No obstruction. No peritoneal signs. Moving all 4 extremities. Nontender no edema. Patient is awake and alert. Limited informant. Answering questions following commands.] Medical Decision Making [89-year-old recent hospitalization hypoxic event known PEs but not currently anticoagulated with a known Whitney filter. Workup is returned. She will be admitted the hospitalist to the progressive care unit for the elevated troponin which will need further evaluation. We are also obtaining a CTA of the chest to see if her blood clots have gotten worse. To determine if we need to anticoagulate her.] Other additions or changes: [None] History & Record Review Discussion w/independent historian: Patient Additional record(s) reviewed:: Prior inpatient record, Prior outpatient record, Prior ED visit and Prior labs Lab Data Attestation: I reviewed the patient's lab results. Lab results narrative: CBC shows white 11.5. H&H 9.3 and 20.3 which is her baseline anemia. Platelet count 160. Electrolytes show potassium 3.1. Gap 6. BUN 21 creatinine 0.74. Glucose 100. Liver enzymes unremarkable. Troponin is elevated 668. BNP 135. Lipase 121. Urinalysis is negative. Chest x-ray shows chronic changes. Labs: Laboratory Results - last 24 hr 09/17/24 09/17/24 11:20 11:40 WBC 11.5 H RBC 3.01 L Hgb 9.3 L Hct 28.3 L MCV 94.0 MCH 30.9 MCHC 32.9 RDW Std Deviation 56.0 H RDW Coeff of Taina 16.4 H Plt Count 160 MPV 10.7 Immature Gran % (Auto) 1.300 H Neut % (Auto) 75.0 H Lymph % (Auto) 14.8 L [place] % (Auto) 6.9 Eos % (Auto) 1.9 Baso % (Auto) 0.1 Absolute Neuts (auto) 8.6 H Absolute Lymphs (auto) 1.70 Nucleated RBC % 0 Sodium 141 Potassium 3.1 L Chloride 108 H Carbon Dioxide 27.0 Anion Gap 6 BUN 21 H Creatinine 0.74 Estim Creat Clear Calc 54.58 Est GFR (MDRD) Af Amer 96 Est GFR (MDRD) Non-Af 79 BUN/Creatinine Ratio 28.5 H Glucose 100 Calcium 8.1 L Total Bilirubin 0.60 AST 12 L ALT 25 Alkaline Phosphatase 58 Troponin I High Sens 668 H* B-Natriuretic Peptide 135.5 H Total Protein 5.7 L Albumin 2.4 L Globulin 3.3 Albumin/Globulin Ratio 0.7 L Lipase 121 H Urine Color Yellow Urine Clarity Clear Urine pH 7.0 Ur Specific [place] 1.010 Urine Protein Negative Urine Glucose (UA) Normal Urine Ketones Negative Urine Occult Blood 10 H Urine Nitrite Negative Urine Bilirubin Negative Urine Urobilinogen Normal Ur Leukocyte Esterase Negative Urine RBC 0 SEEN Urine WBC 0 SEEN Ur Squamous Epith Cells 0-5 SEEN Urine Bacteria 1+ Urine Mucus 0 SEEN Urine Yeast 3+ ABG Data ABG results: ABG 09/17/24 11:42 Specimen Type JASMYN Sample Site Not entered O2 % 21.0 VBG pH 7.63 H* VBG pO2 52 H VBG HCO3 26 VBG Total CO2 27 VBG O2 Sat (Calc) 93 H VBG Base Excess 5 H POC Mix VBG pCO2 Pt Tmp 25.3 L O2 Delivery Device Not entered Crit Call To/Read Back Yes Blood Gas Notified Whom JW Blood Gas Notified Time 11:43:55 Radiography Chest X-Ray - ED: 1 View, Read by ED Physician, Heart, Lungs, Mediastinum, Bony Structures, No Acute Disease and Chronic Changes Diagnostic Testing: Clinical Impression(s) from Imaging Studies Chest X-Ray 09/17/24 11:15 IMPRESSION: No acute process Electronically Signed: Milind Paz MD at 13:00 EDT Reading Location ID and State: [facility] / [place] , Service support , Chest x-ray, portable, single view interpreted by myself shows no acute abnormality. Normal cardiac silhouette. Normal mediastinum. Normal lung shi. Discharge Plan Dx/Rx/DC Orders Clinical Impression: Hypoxia, Elevated troponin, Hx of pulmonary embolus, History of GI bleed, History of partial colectomy Disposition Disposition: [facility]
[2024-09-17 11:56] LABS: ALB/GLOB Ratio 0.7 RATIO (0.9-2.4); AST(SGOT) 12 U/L (15-37); Alanine Aminotransfer ALT/SGPT 25 U/L (13-56); Albumin, Serum 2.4 g/dL (3.2-5.0); Alkaline Phosphatase 58 U/L (45-117); Anion Gap 6 (5-15); BUN 21 mg/dL (7-18); BUN/Creat Ratio 28.5 RATIO (10-20); Calcium,Total 8.1 mg/dL (8.5-10.1); Chloride 108 mmol/L (98-107); Creatinine, Serum 0.74 mg/dL (0.55-1.02); EST Glomerular Filtration Rate 79 mL/min (>60); Est Glom Filt Rate - Afr Amer 96 mL/min (>60); Estimated Creatinine Clearance 54.58 ml/min; Globulin 3.3 g/dL (2.2-4.2); Glucose 100 mg/dL (74-106); Lipase 121 U/L (13-75); Potassium 3.1 mmol/L (3.5-5.1); Protein, Total 5.7 g/dL (6.4-8.2); Sodium Level 141 mmol/L (136-145); Troponin-I HS 668 pg/mL (3.0-54.0)
[2024-09-17 12:06] LABS: BNP,B-Type NATRIURETIC PEPTIDE 135.5 pg/mL (0-100)
[2024-09-17 12:22] LABS: Bacteria 1+ /hpf (None Seen); Squamous Epithelial Cells - UA 0-5 SEEN /hpf (5-10); Yeast-Urine 3+ /hpf (None Seen)
--- NOTE | 2024-09-17 12:51 | CT_ITS ---
STUDY: CTA CHEST REASON FOR EXAM: Female, 89 years old. hypoxia RADIATION DOSAGE (If Supplied By Facility): CTDIvol = ( 11.97 ) mGy, DLP = ( 393.12 ) mGycm TECHNIQUE: The examination was performed with the intravenous administration of IV 100mL [id number]-[id number]. Post-processing of the angiographic images was performed, with multiplanar reformation and 3D reconstruction. Individualized dose optimization techniques were used for this CT. COMPARISON: Chest x-ray dated September 17, 2024. CTA of the chest dated August 31, 2024. FINDINGS: Prominence of left epidural fat pad and slight volume loss of the left lung compared to the right which is a chronic abnormality. Chronic interstitial scarring bilaterally. Mild groundglass edema is present bilaterally. Mild pleural thickening and scarring is also seen in the lateral aspect of the left lower lobe. Slight leftward mediastinal rotation due to volume loss. No pneumonic consolidation is present. Redemonstration of mild subsegmental atelectasis in the right lower lobe base. No new abnormalities are present. Previously seen/described bilateral peripheral pulmonary artery emboli are no longer present. Normal enhancement of the main pulmonary artery and right and left pulmonary arteries. Normal enhancement of the bilateral peripheral pulmonary arteries. There is no demonstrated pulmonary embolism. There is atherosclerotic calcification of the aortic arch with tortuosity. There is no demonstrated aortic dissection. Normal heart and pericardium. There are calcifications of the coronary arteries. Normal mediastinum. Normal hilar regions. Normal visualized trachea and bronchi. The lungs are well expanded. Normal chest wall structures. There are degenerative changes of thoracic spine. Normal visualized upper abdomen. CT/CTA Chest W/WO Contrast IMPRESSION: 1. Prominence of left epidural fat pad and slight volume loss of the left lung compared to the right which is a chronic abnormality. Chronic interstitial scarring bilaterally. Mild groundglass edema is present bilaterally. Mild pleural thickening and scarring is also seen in the lateral aspect of the left lower lobe. Slight leftward mediastinal rotation due to volume loss. 2. No pneumonic consolidation is present. 3. Redemonstration of mild subsegmental atelectasis in the right lower lobe base. No new abnormalities are present. 4. Previously seen/described bilateral peripheral pulmonary artery emboli are no longer present. No demonstrated pulmonary embolism or arterial dissection. Electronically Signed: Milind Paz MD at 15:35 EDT ,
--- NOTE | 2024-09-17 12:53 | PCM.HP.STD ---
HPI - General General Date of Admission: 09/17/24 Date of Service: 09/17/24 Chief Complaint: Hypoxia HPI Narrative CARMEN LAND, is a 89 F who presented to the emergency department at [facility] from the transitional care unit due to acute hypoxia. Patient recently had an extended hospitalization that was complex and was discharged on 09/15/2024. During that hospitalization she initially came in with an acute GI bleed at which time she was found to have a right colonic mass consistent with villous adenoma that was bleeding. She developed hypoxia and was found to have COVID and also pulmonary emboli. Given her GI bleed and inability be anticoagulated that time Whitney filter was placed by vascular surgery on 08/31/2024. Surgery was then planned for 09/04/2024 but had to believe delayed due to development of superimposed bacterial pneumonia and surgical intervention was ultimately performed on 09/11/2024. Patient had been doing well and was discharged to the transitional care care unit on 09/15/2024 but today was sent to the emergency department by nursing for some confusion, shortness of breath and new hypoxia. Staff did report she is to be wearing her CPAP at night and had refused. Patient has no significant complaints on presentation and denies chest pain or shortness of breath however she was hypoxic and requiring supplemental oxygen. At the time of my evaluation I walked in the room and she was on room air at 79%. Vital signs on presentation showed a temperature of 98.4, pulse ox 78, respiratory rate 20, blood pressure 117/67 and pulse ox was 79% on room air the patient showed no signs of respiratory distress. CBC shows a mild leukocytosis at 11.5 which is trending down from yesterday, hemoglobin of 9.3 which has been stable as a recent and normal platelet count. She does have a mild left shift which is new. VBG shows a pH of 7.63. Chemistry panel shows stable electrolytes with mild hypokalemia at 3.1, normal renal function, normal liver function but her troponin was found to be elevated at 668 which is new. BNP was elevated as well at 135. Liver functions are elevated slightly and lipase was obtained and found to be mildly elevated 121 however patient does not have significant while abdominal pain, nausea, or vomiting. She was confused at the time of my evaluation was only oriented to self. Typically she is alert and oriented x 3. EKG shows no change from previous and chest x-ray showed chronic right lower lobe atelectasis with no acute abnormalities, fibrosis of both lungs and no acute processes. On exam she did have crackles at the bases which is not her baseline. 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 Closed pelvic fracture Pelvic fracture Fall from slipping Essential hypertension Hypertension Normocytic anemia Closed head injury Closed fracture of right hip Fall Adult failure to thrive Weakness Dizziness Fracture of rib Dilatation of aorta Chronic systolic (congestive) heart failure Angina pectoris Subdural hematoma Insomnia Urinary incontinence History of stroke Overactive bladder Allergic rhinitis COPD (chronic obstructive pulmonary disease) Asthma Vitamin D deficiency Edema Urinary tract infection Hallucinations Intellectual disability Encephalopathy Fall Hypokalemia Acute cystitis Acute ischemic stroke Left hip pain Decreased level of consciousness Lethargy Shortness of breath HLD (hyperlipidemia) Gastroesophageal reflux disease Cerebrovascular disease Benign essential HTN Home Medications ?Medication ?Instructions ?Recorded ?Last Taken ?Type atenolol 50 mg tablet 50 mg PO DAILY blood pressure 01/31/19 09/15/24 History atorvastatin 10 mg tablet 10 mg PO DAILY cholesterol 01/31/19 09/15/24 History clopidogrel 75 mg tablet 75 mg PO DAILY heart health 01/31/19 08/24/24 History loratadine 10 mg tablet 10 mg PO DAILY allergies 01/31/19 09/15/24 History omeprazole 20 mg capsule,delayed 20 mg PO DAILY GERD 01/31/19 09/10/21 History release potassium chloride 20 mEq 20 meq PO BID supplement 09/01/19 08/31/24 History tablet,extended release(part/cryst) albuterol sulfate 90 mcg/actuation 2 puff IH Q4H PRN PRN Wheezing 06/13/20 2 Weeks Ago History aerosol inhaler ~08/27/21 cholecalciferol (vitamin D3) 25 2,000 unit PO DAILY supplement 06/13/20 09/10/21 History mcg (1,000 unit) tablet melatonin 5 mg tablet 5 mg PO QHS PRN Sleep 09/10/21 Unknown History meclizine 25 mg tablet 25 mg PO TID PRN dizziness #30 tabs 09/11/21 09/04/24 Rx furosemide 40 mg tablet 80 mg PO DAILY CHF 12/01/21 09/15/24 History nitroglycerin 0.4 mg sublingual 0.4 mg sublingual Q5-15M PRN chest 12/01/21 Unknown Rx tablet pain #25 tabs amlodipine 2.5 mg tablet 2.5 mg PO DAILY blood pressure 01/25/22 08/24/24 History fluticasone 250 mcg-salmeterol 50 1 inh inhalation BID breathing 01/25/22 Unknown History mcg/dose blistr powdr for inhalation losartan 100 mg tablet See Rx Instructions .Route 04/13/23 Unknown Rx .COMPLEX blood pressure #28 tabs fluticasone propionate 50 2 spray intranasal DAILY allergies 08/31/24 09/14/24 History mcg/actuation nasal spray,suspension isosorbide mononitrate 60 mg 60 mg PO DAILY heart 08/31/24 09/15/24 History tablet,extended release 24 hr loperamide 2 mg capsule 2 mg PO Q6H PRN loose stool 08/31/24 Unknown History (Anti-Diarrheal (loperamide)) oxybutynin chloride 10 mg 10 mg PO DAILY bladder 08/31/24 Unknown History tablet,extended release 24 hr nystatin 100,000 unit/gram topical 1 applic topical BID redness #30 09/15/24 Unknown Rx cream grams Allergy/AdvReac Type Severity Reaction Status Date / Time adhesive Allergy Rash Verified 07/12/24 13:54 amitriptyline Allergy CONFUSION Verified 07/12/24 13:54 codeine Allergy Hives Verified 07/12/24 13:54 hydrocodone bitartrate (From Allergy Hives Verified 07/12/24 13:54 Vicodin) Iodinated Contrast Media Allergy Hives Verified 07/12/24 13:54 (Iodinated Contrast Media - IV Dye) naproxen Allergy Unknown Verified 07/12/24 13:54 Penicillins Allergy Rash Verified 07/12/24 13:54 phenytoin sodium (From Allergy Hives Verified 07/12/24 13:54 Dilantin) phenytoin sodium extended Allergy Hives Verified 07/12/24 13:54 (From Dilantin) silicone Allergy Hives Verified 07/12/24 13:54 Family History Sister Heart disease Surgical History S/P ORIF (open reduction internal fixation) fracture History of umbilical hernia repair History of hysterectomy History of breast biopsy History of brain surgery S/P ORIF (open reduction internal fixation) fracture (~05/19/15) Social History household members: children and other details: Son. Smoking Status: Never smoker alcohol intake: never substance use type: does not use caffeine: Yes Type: carbonated beverages and coffee ROS Constitutional Constitutional: Reports weakness; Denies anorexia, change in weight, chills, fatigue, fever(s), malaise, night sweats or other Eyes Eyes: Denies blurry vision, change in eye color, change in vision, discharge from eye(s), double vision, erythema, eye pain, loss of vision or other ENT HEENT: Denies abnormal hearing, dysphagia, ear pain, epistaxis, headache(s), hearing loss, nasal congestion, nasal discharge, post nasal drip, sinus pressure, sore throat or other Cardiovascular Cardiovascular: Reports other Details: Shortness of breath ; Denies chest pain, claudication, dyspnea on exertion, edema, lightheadedness, orthopnea, palpitations, paroxysmal nocturnal dyspnea, rapid heart rate or syncope Respiratory/Chest Respiratory/Chest: Reports dyspnea and shortness of breath at rest; Denies cough, excessive phlegm production, hemoptysis, productive cough, shortness of breath with exertion, wheezing or other Gastrointestinal Gastrointestinal: Reports abdominal pain; Denies coffee ground emesis, constipation, diarrhea, dyspepsia, hematemesis, hematochezia, loose stools, melena, nausea, vomiting or other Genitourinary Genitourinary: Reports urinary frequency and urinary incontinence; Denies burning urination, difficulty urinating, dysuria, hematuria, nocturia, urinary hesitancy, urinary urgency or other Musculoskeletal Musculoskeletal: Reports joint pain and joint stiffness; Denies arthralgias, back pain, joint swelling, myalgias, neck pain or other Neurologic Neurologic: Reports other Details: Intermittent vertigo but none currently ; Denies abnormal gait, abnormal speech, confusion, disequilibrium, dizziness, focal weakness, headache(s), numbness, paresthesias, seizure-like activity, seizures, syncope, tingling or tremor(s) Psychiatric Psychiatric: Denies anxiety, depression, homicidal ideation, suicidal ideation or other Endocrine Endocrinology: Denies change in body appearance, cold intolerance, excessive sweating, heat intolerance, polydipsia, polyuria or other Hematologic/Lymphatic Hematologic/Lymphatic: Reports anemia; Denies easy bleeding, easy bruising, lymphadenopathy or other Allergic/Immunologic Allergic/Immunologic: Denies rhinitis, hives, eczemia, asthma or other Vital Signs Vital Signs Vital Signs: 09/17/24 10:12 09/17/24 10:19 09/17/24 12:00 Temperature 98.4 F Temperature Source Oral Pulse Rate 78 79 Respiratory Rate 20 H Respiratory Effort Normal Non-Labored Respiratory Depth Normal Respiratory Pattern Normal Blood Pressure 117/67 110/72 Blood Pressure Mean 83 84 Pulse Ox 100 Oxygen Delivery Method Nasal Cannula Oxygen Flow Rate (L/min) 2 Weight Weight: 85.5 kg Body Mass Index (BMI) 30.4 Physical Exam Const alert, no apparent distress and well nourished; Negative for oriented x3, average body habitus or healthy appearing Constitutional Narrative: Elderly, obese, white female who appears quite fatigued, oriented only to self at this time, upon my arrival was on room air with sats at 79% so I placed oxygen and we are able to get her sats up to 89% fairly quickly, does not appear toxic but does appear ill General Appearance: cooperative HEENT normocephalic and head/scalp atraumatic; Negative for hearing grossly normal bilaterally HEENT Narrative: Mucous membranes are dry, no thrush, Mallampati 3-4 Eyes PERRL and EOMs intact bilaterally Eyes Narrative: Conjunctiva are pale bilaterally, no scleral icterus Neck no lymphadenopathy and supple Neck Narrative: Slight JVD, trachea midline, no thyroid enlargement Resp normal respiratory effort, no retractions, no use of accessory muscles and No clear to auscultation bilaterally Resp Narrative: Crackles at bases bilaterally, does not appear to be in any respiratory distress at rest Auscultation: crackles; Negative for rhonchi or wheezes Cardio regular rate, regular rhythm, S1 normal heart sound, S2 normal heart sound, no murmurs, no rub, no gallops and no clicks GI normal to inspection, nondistended, normoactive bowel sounds and soft to palpation GI Narrative: Mild diffuse tenderness specifically surrounding her incisions, incisions are clean dry and intact with postoperative dressing still in place to include Steri-Strips Extremity no clubbing, cyanosis or edema Extremity Narrative: Radial and pedal pulses are 2+ Skin No no rashes or lesions noted, No no wounds, skin turgor normal, no jaundice, no petechiae and no mottling Skin Narrative: Pale, surgical incisions as noted above, scattered ecchymosis on bilateral upper extremities Neuro moves all extremities and no focal motor deficits Neuro Narrative: Marked generalized weakness but no focal deficits Sensorium / Orientation: awake, alert and oriented to person; Negative for oriented to place or oriented to time Speech: speech normal Psych Psych Narrative: Affect is slightly flat, eye contact is good, patient is pleasantly confused Results Lab / Micro Data Attestation: I reviewed the patient's lab results. 09/17/24 11:20 09/17/24 11:20 Labs: Laboratory Results - last 24 hr 09/17/24 11:20: WBC 11.5 H, RBC 3.01 L, Hgb 9.3 L, Hct 28.3 L, MCV 94.0, MCH 30.9, MCHC 32.9, RDW Std Deviation 56.0 H, RDW Coeff of Taina 16.4 H, Plt Count 160, MPV 10.7, Immature Gran % (Auto) 1.300 H, Neut % (Auto) 75.0 H, Lymph % (Auto) 14.8 L, Simpson % (Auto) 6.9, Eos % (Auto) 1.9, Baso % (Auto) 0.1, Absolute Neuts (auto) 8.6 H, Absolute Lymphs (auto) 1.70, Nucleated RBC % 0, Sodium 141, Potassium 3.1 L, Chloride 108 H, Carbon Dioxide 27.0, Anion Gap 6, BUN 21 H, Creatinine 0.74, Estim Creat Clear Calc 54.58, Est GFR (MDRD) Af Amer 96, Est GFR (MDRD) Non-Af 79, BUN/Creatinine Ratio 28.5 H, Glucose 100, Calcium 8.1 L, Total Bilirubin 0.60, AST 12 L, ALT 25, Alkaline Phosphatase 58, Troponin I High Sens 668 H*, B-Natriuretic Peptide 135.5 H, Total Protein 5.7 L, Albumin 2.4 L, Globulin 3.3, Albumin/Globulin Ratio 0.7 L, Lipase 121 H 09/17/24 11:40: Urine Color Yellow, Urine Clarity Clear, Urine pH 7.0, Ur Specific Barnhart 1.010, Urine Protein Negative, Urine Glucose (UA) Normal, Urine Ketones Negative, Urine Occult Blood 10 H, Urine Nitrite Negative, Urine Bilirubin Negative, Urine Urobilinogen Normal, Ur Leukocyte Esterase Negative, Urine RBC 0 SEEN, Urine WBC 0 SEEN, Ur Squamous Epith Cells 0-5 SEEN, Urine Bacteria 1+, Urine Mucus 0 SEEN, Urine Yeast 3+ Micro: Microbiology 09/17/24 11:24 Mucosa - Nasopharyngeal SARS-CoV-2, Influenza & RSV (PCR) - Final ABG Data ABG results: ABG 09/17/24 11:42 Specimen Type JASMYN Sample Site Not entered O2 % 21.0 VBG pH 7.63 H* VBG pO2 52 H VBG HCO3 26 VBG Total CO2 27 VBG O2 Sat (Calc) 93 H VBG Base Excess 5 H POC Mix VBG pCO2 Pt Tmp 25.3 L O2 Delivery Device Not entered Crit Call To/Read Back Yes Blood Gas Notified Whom JW Blood Gas Notified Time 11:43:55 Assessment & Plan Assessment/Plan (1) Hx of pulmonary embolus: (2) Elevated troponin: (3) Hypoxia: (4) Hypokalemia: PLAN: Plan Acute hypoxia -Mild and only requiring 2 L -Check CTA of the chest to rule out any worsening of PE -Patient does have Plessis filter however if PE burden appears to be worse may need to start anticoagulation -BNP is slightly elevated with crackles at bases -Start Lasix 40 mg IV twice daily and hold home Lasix 80 mg daily -Check echocardiogram -Last echocardiogram from 2021 showed an EF of 65% with a moderately enlarged left atrium, mild to moderate mitral valve insufficiency, mildly dilated aortic root and indeterminate diastolic function -Cycle cardiac enzymes -Oxygen as needed--> was requiring 4 L while in the emergency department -Wean as able -As needed aerosols Troponin elevation -Suspect NSTEMI -EKG without any changes from prior -Will start heparin drip but dosing to be determined based on CTA of the chest -Monitor hemoglobin closely with recent surgery -Cycle cardiac enzymes -Check echocardiogram -Continue home medications -Patient does have history of other vascular disease including previous stroke and carotid artery disease -Continue home Plavix -Will start aspirin if heparin drip is not -Consult cardiology--> Dr. Machado notified via text Hypokalemia -Potassium replacement -Recheck in a.m. -Check a.m. magnesium and phosphorus Leukocytosis -Trending down from yesterday -Suspect reactive Can repeat in a.m. Recent lower GI bleed secondary to bleeding large villous adenoma -Right laparoscopic hemicolectomy performed on 09/11/2024--> postop day 7 -Hemoglobin is stable -Surgical pathology shows villous adenoma with high grade dysplasia and 23 benign pericolonic lymph nodes Acute on chronic anemia -Baseline hemoglobin appears to run between 11 and 12 prior to admission for GI bleed -Recently hemoglobin stabilized between 9 and 10 -Repeat CBC in a.m. Recent acute pulmonary emboli bilateral lower lobes -Diagnosed on CTA of the chest on 08/31/2024 -IVC filter placed 08/31/2024--> anticoagulation was contraindicated at that time due to GI bleed and upcoming surgery -Repeat CTA is pending -Will start heparin drip if positive for worsening clot burden since last CTA despite filter placement Chronic intermittent vertigo -Previous diagnosis of BPPV -Continue home as needed meclizine Chronic HFpEF/essential hypertension/hyperlipidemia -Last echo was from 2021 reported EF of 65% with normal systolic function, 1-2+ MR, trivial TR, mild AI, mild PI and a mildly dilated aortic root with moderate left atrial enlargement -Hold home Lasix and start IV Lasix -Continue home isosorbide mononitrate -Continue home atenolol -Continue home amlodipine -Continue home losartan History of stroke -Continue Plavix -Continue secondary prevention Bilateral carotid artery stenosis -Less than 50% -Outpatient follow-up GERD -Continue PPI Overactive Bladder -Continue home oxybutynin Dementia -Patient does have cognitive impairment at baseline however her baseline is alert and oriented x 3 but does have intermittent confusion DVT prophylaxis -Heparin drip as above CODE STATUS -Per previous conversation with family patient is DNR CCA with no intubation Charges/Coding Visit Charges Inpatient E&M: 97825 Init Hosp L3
--- NOTE | 2024-09-17 13:01 | NURSING ---
PCU HYPOXIA, HX OF PE, ELEVATED TROP, S/P P COLECTOMY, HX OF GI BLEED
[2024-09-17] MEDS: DiphenhydrAMINE 50 MG/ML Syringe IV (13:13)
--- NOTE | 2024-09-17 14:01 | ECHOD_ITS ---
Reason For Study: DYSPNEA Procedure This was a 2D Doppler, Color Flow transthoracic echocardiogram. The study was technically difficult. Exam performed portable in patient room. Left Ventricle Normal LV size. Mild concentric left ventricular hypertrophy. The left ventricular ejection fraction is 55 %. No regional wall motion abnormalities noted. Right Ventricle Normal RV size. Normal systolic function. Atria Normal left atrium. Normal right atrium. Aneurysmal atrial septum. Patent foramen ovale. Mitral Valve There is mild to moderate mitral annular calcification. Mild (1+) mitral valve insufficiency. Tricuspid Valve Normal tricuspid valve. Aortic Valve Trisinus/trileaflet aortic valve. Mild (1+) aortic valve insufficiency. Pulmonic Valve Normal pulmonic valve. Great Vessels Normal aortic root. The pulmonary artery is normal size. Inferior vena cava collapse with respiration. Pericardium/Pleural No pericardial effusion. Medication Performed a rapid injection of agitated mix of 9 cc saline and 1cc air to assess for atrial septal defect. MMode/2D Measurements & Calculations LVIDd: 5.2 cm IVSd: 1.6 cm LVOT diam: 2.3 cm LVIDs: 3.3 cm LVPWd: 1.2 cm RVDd: 2.2 cm FS: 37.1 % LVOT area: 4.0 cm2 asc Aorta Diam: 3.9 cm LAV(MOD-bp): 61.0 ml LVAd ap4: 18.7 cm2 LAV(MOD-bp) Indexed: 32.0 ml/m2 LVLd ap4: 6.0 cm LAV(MOD-sp2): 66.1 ml EDV(MOD-sp4): 48.4 ml LAV(MOD-sp4): 48.1 ml EDV(sp4-el): 50.1 ml LVAs ap4: 12.4 cm2 LVLs ap4: 5.2 cm ESV(MOD-sp4): 25.0 ml ESV(sp4-el): 25.1 ml EF(MOD-sp4): 48.4 % EF(sp4-el): 49.9 % LVAd ap2: 15.6 cm2 SV(MOD-sp4): 23.4 ml SV(MOD-sp2): 18.5 ml LVLd ap2: 5.7 cm EDV(MOD-sp2): 38.1 ml EDV(sp2-el): 36.5 ml LVAs ap2: 10.6 cm2 LVLs ap2: 5.1 cm ESV(MOD-sp2): 19.6 ml ESV(sp2-el): 18.8 ml EF(MOD-sp2): 48.5 % SV(sp4-el): 25.0 ml Ao sinus diam: 3.[address] Junction: 3.2 cm LA dimension(2D): 4.5 cm LA A4 area: 16.6 cm2 RA A4 area: 12.5 cm2 TAPSE: 1.7 cm Time Measurements MV dec time: 0.20 sec Doppler Measurements & Calculations MV E max chaz: 26.1 cm/sec Lat Peak E' Chaz: 3.2 cm/sec Med Peak E' Chaz: 4.2 cm/sec MV A max chaz: 68.4 cm/sec E/E' lat: 8.1 E/E' med: 6.2 MV E/A: 0.38 MV dec slope: 128.1 cm/sec2 Ao V2 max: 134.4 cm/sec AI max chaz: 444.0 cm/sec Ao max P.2 mmHg AI max P.8 mmHg Ao V2 mean: 92.1 cm/sec AI dec slope: 241.9 cm/sec2 Ao mean P.7 mmHg AI P1/2t: 537.7 msec Ao V2 VTI: 29.2 cm AV (velocity ratio): 0.56 CAMILLE(I,D): 2.2 cm2 CAMILLE(V,D): 2.5 cm2 LV V1 max: 84.3 cm/sec SV(LVOT): 65.6 ml PA V2 max: 65.0 cm/sec LV V1 max P.8 mmHg PA max PG (full): 0.39 mmHg LV V1 mean P.4 mmHg LV V1 mean: 56.3 cm/sec LV V1 VTI: 16.4 cm PI end-d chaz: 63.2 cm/sec ECHO/Echo Complete Interpretation Summary The left ventricular ejection fraction is 55 %. Normal LV size. Aneurysmal atrial septum. Patent foramen ovale. Mild (1+) aortic valve insufficiency. Ordering Physician: Frederick Beavers Performed By: Tala Deras RDCS and Student
[2024-09-17] MEDS: Potassium Chloride Oral Tablet 20 MEQ 40 MEQ PO (15:17)
[2024-09-17] MEDS: Furosemide 40 MG/4 ML Vial IV ×2 (15:19→20:05)
[2024-09-17 15:55] LABS: Troponin-I HS 543 pg/mL (3.0-54.0)
--- NOTE | 2024-09-17 16:05 | CON.PCM.CA_ITS ---
<Statement entered by Luis Miguel Machado MD - 09/29/24 15:48> Pt seen & evaluated w/SANDIP. I personally interviewed & exam the pt. I was involved in all aspects of pt's orders, interpretation of results & treatment Assessment & Plan Assessment/Plan (1) History of GI bleed: (2) Hx of pulmonary embolus: (3) Elevated troponin: (4) Chronic heart failure with preserved ejection fraction (HFpEF): (5) Status post partial colectomy: (6) COVID-19: (7) Cerebrovascular disease: HPI Consult Data Date of Consult: 10/13/24 HPI Narrative Reason for Consultation: Non-STEMI/elevated troponins HPI Narrative: CARMEN LAND, is a 89 F who presents [facility] Medical History Diverticulitis 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 Closed pelvic fracture Pelvic fracture Fall from slipping Essential hypertension Hypertension Normocytic anemia Closed head injury Closed fracture of right hip Fall Adult failure to thrive Weakness Dizziness Fracture of rib Dilatation of aorta Chronic systolic (congestive) heart failure Angina pectoris Subdural hematoma Insomnia Urinary incontinence History of stroke Overactive bladder Allergic rhinitis COPD (chronic obstructive pulmonary disease) Asthma Vitamin D deficiency Edema Urinary tract infection Hallucinations Intellectual disability Encephalopathy Fall Hypokalemia Acute cystitis Acute ischemic stroke Left hip pain Decreased level of consciousness Lethargy Shortness of breath HLD (hyperlipidemia) Gastroesophageal reflux disease Cerebrovascular disease Benign essential HTN Home Medications ?Medication ?Instructions ?Recorded ?Last Taken ?Type atenolol 50 mg tablet 50 mg PO DAILY blood pressure 01/31/19 09/15/24 History atorvastatin 10 mg tablet 10 mg PO DAILY cholesterol 01/31/19 09/15/24 History clopidogrel 75 mg tablet 75 mg PO DAILY heart health 01/31/19 08/24/24 History loratadine 10 mg tablet 10 mg PO DAILY allergies 01/31/19 09/15/24 History omeprazole 20 mg capsule,delayed 20 mg PO DAILY GERD 01/31/19 09/10/21 History release potassium chloride 20 mEq 20 meq PO BID supplement 09/01/19 08/31/24 History tablet,extended release(part/cryst) albuterol sulfate 90 mcg/actuation 2 puff IH Q4H PRN PRN Wheezing 06/13/20 2 Weeks Ago History aerosol inhaler ~08/27/21 cholecalciferol (vitamin D3) 25 2,000 unit PO DAILY supplement 06/13/20 09/10/21 History mcg (1,000 unit) tablet melatonin 5 mg tablet 5 mg PO QHS PRN Sleep 09/10/21 Unknown History meclizine 25 mg tablet 25 mg PO TID PRN dizziness #30 tabs 09/11/21 09/04/24 Rx furosemide 40 mg tablet 80 mg PO DAILY CHF 12/01/21 09/15/24 History nitroglycerin 0.4 mg sublingual 0.4 mg sublingual Q5-15M PRN chest 12/01/21 Unknown Rx tablet pain #25 tabs amlodipine 2.5 mg tablet 2.5 mg PO DAILY blood pressure 01/25/22 08/24/24 History fluticasone 250 mcg-salmeterol 50 1 inh inhalation BID breathing 01/25/22 Unknown History mcg/dose blistr powdr for inhalation losartan 100 mg tablet See Rx Instructions .Route 04/13/23 Unknown Rx .COMPLEX blood pressure #28 tabs fluticasone propionate 50 2 spray intranasal DAILY allergies 08/31/24 09/14/24 History mcg/actuation nasal spray,suspension isosorbide mononitrate 60 mg 60 mg PO DAILY heart 08/31/24 09/15/24 History tablet,extended release 24 hr loperamide 2 mg capsule 2 mg PO Q6H PRN loose stool 08/31/24 Unknown History (Anti-Diarrheal (loperamide)) oxybutynin chloride 10 mg 10 mg PO DAILY bladder 08/31/24 Unknown History tablet,extended release 24 hr nystatin 100,000 unit/gram topical 1 applic topical BID redness #30 09/15/24 Unknown Rx cream grams Allergy/AdvReac Type Severity Reaction Status Date / Time adhesive Allergy Rash Verified 07/12/24 13:54 amitriptyline Allergy CONFUSION Verified 07/12/24 13:54 codeine Allergy Hives Verified 07/12/24 13:54 hydrocodone bitartrate (From Allergy Hives Verified 07/12/24 13:54 Vicodin) Iodinated Contrast Media Allergy Hives Verified 07/12/24 13:54 (Iodinated Contrast Media - IV Dye) naproxen Allergy Unknown Verified 07/12/24 13:54 Penicillins Allergy Rash Verified 07/12/24 13:54 phenytoin sodium (From Allergy Hives Verified 07/12/24 13:54 Dilantin) phenytoin sodium extended Allergy Hives Verified 07/12/24 13:54 (From Dilantin) silicone Allergy Hives Verified 07/12/24 13:54 Family History Sister Heart disease Surgical History S/P ORIF (open reduction internal fixation) fracture History of umbilical hernia repair History of hysterectomy History of breast biopsy History of brain surgery S/P ORIF (open reduction internal fixation) fracture (~05/19/15) Social History household members: children and other details: Son. Smoking Status: Never smoker alcohol intake: never substance use type: does not use caffeine: Yes Type: carbonated beverages and coffee Risk Stratification Risk Stratification Applicable: No Objective Data Vital Signs: Vital Signs Temp Pulse Resp BP Pulse Ox O2 Del Method O2 Flow Rate 97.8 F 67 18 111/59 L 95 Nasal Cannula 3 09/17/24 15:16 09/17/24 15:16 09/17/24 15:16 09/17/24 15:16 09/17/24 15:16 09/17/24 15:16 09/17/24 15:16 Oxygen Flow Rate (L/min) 3 Oxygen Delivery Method Nasal Cannula Weight: 179 lb 10.828 oz Body Mass Index (BMI) 29.0 Lab / Micro Data 09/24/24 05:20 09/24/24 05:20 Labs: Laboratory Results - last 24 hr 09/17/24 11:20: WBC 11.5 H, RBC 3.01 L, Hgb 9.3 L, Hct 28.3 L, MCV 94.0, MCH 30.9, MCHC 32.9, RDW Std Deviation 56.0 H, RDW Coeff of Taina 16.4 H, Plt Count 160, MPV 10.7, Immature Gran % (Auto) 1.300 H, Neut % (Auto) 75.0 H, Lymph % (Auto) 14.8 L, Garza % (Auto) 6.9, Eos % (Auto) 1.9, Baso % (Auto) 0.1, Absolute Neuts (auto) 8.6 H, Absolute Lymphs (auto) 1.70, Nucleated RBC % 0, Sodium 141, Potassium 3.1 L, Chloride 108 H, Carbon Dioxide 27.0, Anion Gap 6, BUN 21 H, Creatinine 0.74, Estim Creat Clear Calc 54.58, Est GFR (MDRD) Af Amer 96, Est GFR (MDRD) Non-Af 79, BUN/Creatinine Ratio 28.5 H, Glucose 100, Calcium 8.1 L, Total Bilirubin 0.60, AST 12 L, ALT 25, Alkaline Phosphatase 58, Troponin I High Sens 668 H*, B-Natriuretic Peptide 135.5 H, Total Protein 5.7 L, Albumin 2.4 L, Globulin 3.3, Albumin/Globulin Ratio 0.7 L, Lipase 121 H 09/17/24 11:40: Urine Color Yellow, Urine Clarity Clear, Urine pH 7.0, Ur Specific [place] 1.010, Urine Protein Negative, Urine Glucose (UA) Normal, Urine Ketones Negative, Urine Occult Blood 10 H, Urine Nitrite Negative, Urine Bilirubin Negative, Urine Urobilinogen Normal, Ur Leukocyte Esterase Negative, Urine RBC 0 SEEN, Urine WBC 0 SEEN, Ur Squamous Epith Cells 0-5 SEEN, Urine Bacteria 1+, Urine Mucus 0 SEEN, Urine Yeast 3+ 09/17/24 15:00: Troponin I High Sens 543 H* Micro: Microbiology 09/17/24 11:24 Mucosa - Nasopharyngeal SARS-CoV-2, Influenza & RSV (PCR) - Final ABG Data ABG results: ABG 09/17/24 11:42 Specimen Type JASMYN Sample Site Not entered O2 % 21.0 VBG pH 7.63 H* VBG pO2 52 H VBG HCO3 26 VBG Total CO2 27 VBG O2 Sat (Calc) 93 H VBG Base Excess 5 H POC Mix VBG pCO2 Pt Tmp 25.3 L O2 Delivery Device Not entered Crit Call To/Read Back Yes Blood Gas Notified Whom JW Blood Gas Notified Time 11:43:55 Cardiology Labs/Tests 09/17/24 11:20: WBC 11.5 H, RBC 3.01 L, Hgb 9.3 L, Hct 28.3 L, MCV 94.0, MCH 30.9, MCHC 32.9, Plt Count 160, MPV 10.7, Immature Gran % (Auto) 1.300 H, Neut % (Auto) 75.0 H, Lymph % (Auto) 14.8 L, Garza % (Auto) 6.9, Eos % (Auto) 1.9, Baso % (Auto) 0.1, Absolute Neuts (auto) 8.6 H, Nucleated RBC % 0, Sodium 141, P otassium 3.1 L, Chloride 108 H, Carbon Dioxide 27.0, Anion Gap 6, BUN 21 H, Creatinine 0.74, Est GFR (MDRD) Af Amer 96, Est GFR (MDRD) Non-Af 79, B UN/Creatinine Ratio 28.5 H, Glucose 100, Calcium 8.1 L, Total Bilirubin 0.60, B- Natriuretic Peptide 135.5 H 09/17/24 11:40: Urine Color Yellow, Urine Clarity Clear, Urine pH 7.0, Ur Specific [place] 1.010, Urine Protein Negative, Urine Glucose (UA) Normal, Urine Ketones Negative, Urine Occult Blood 10 H, Urine Nitrite Negative, Urine Bilirubin Negative, Urine Urobilinogen Normal, Ur Leukocyte Esterase Negative, Urine RBC 0 SEEN, Urine WBC 0 SEEN 09/17/24 11:42: VBG pH 7.63 H*, VBG pO2 52 H, VBG HCO3 26, VBG O2 Sat (Calc) 93 H, VBG Base Excess 5 H Rhythm: EKG: ECHO: Stress Test: Cardiac Cath: PCI: CT Surgery: Holter monitor: EPS: PPM: CXR: Chest CT Scan: Radiography Diagnostic Testing: Radiology Impression Chest X-Ray 09/17/24 11:15 IMPRESSION: No acute process Electronically Signed: Milind Paz MD at 13:00 EDT Reading Location ID and State: [facility] / [place] , Service support , Chest CTA 09/17/24 12:51 IMPRESSION: 1. Prominence of left epidural fat pad and slight volume loss of the left lung compared to the right which is a chronic abnormality. Chronic interstitial scarring bilaterally. Mild groundglass edema is present bilaterally. Mild pleural thickening and scarring is also seen in the lateral aspect of the left lower lobe. Slight leftward mediastinal rotation due to volume loss. 2. No pneumonic consolidation is present. 3. Redemonstration of mild subsegmental atelectasis in the right lower lobe base. No new abnormalities are present. 4. Previously seen/described bilateral peripheral pulmonary artery emboli are no longer present. No demonstrated pulmonary embolism or arterial dissection. Electronically Signed: Milind Paz MD at 15:35 EDT ,
--- NOTE | 2024-09-17 16:08 | PCM.CONS.C ---
Assessment & Plan Assessment/Plan (1) History of partial colectomy: (2) History of GI bleed: (3) Hx of pulmonary embolus: (4) Elevated troponin: (5) Hypoxia: (6) Chronic heart failure with preserved ejection fraction (HFpEF): (7) COVID-19: (8) Cerebrovascular disease: PLAN: 89-year-old patient who recently discharge on September 15, 2024 following extended hospitalization. 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 Due to high risk of anticoagulation with the GI bleed she had IVC filter placed by the vascular surgeon. And her hospital course was complicated further with a bacterial pneumonia. On this admission she had a series of high sensitive troponin which is elevated A cardiac consult requested. Review of the EKG the electro optics engineer EKG is abnormal with ST-T change noted mainly in the anterior and septal leads with underlying right bundle She had high sensitive troponin of 663 trending down to 543. Patient does not have any active chest pain. Cardiac care plan recommendations; Based on the abnormal EKG and the elevated high sensitive troponins clinical impression is non-ST elevation AL And recommendation would be monitoring her heparin dose due to the GI bleed recently Echocardiogram to assess LV function. Patient does not have any active symptoms of chest pain She would be high risk for cardiac catheterization if further intervention required with the risk of starting on antiplatelet. She was on Plavix for history of stroke which she discontinued. Patient has anemia acute on chronic anemia Recent acute pulmonary emboli with bilateral lower lobes Also had a history of chronic heart failure with preserved with preserved ejection fraction and history of hyperal tension From cardiac standpoint we will review the echocardiogram and will discuss further plan. She will be high risk for invasive cardiac evaluation due to the multiple medical, complexities including anemia with abnormal colonoscopy findings Luis Miguel Machado MD,[facility] HPI Consult Data Date of Consult: 09/17/24 HPI Narrative Reason for Consultation: Non-STEMI/elevated troponins HPI Narrative: CARMEN LAND, is a 89 F who presents ON LICENSE OF [facility] Medical History Diverticulitis 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 Closed pelvic fracture Pelvic fracture Fall from slipping Essential hypertension Hypertension Normocytic anemia Closed head injury Closed fracture of right hip Fall Adult failure to thrive Weakness Dizziness Fracture of rib Dilatation of aorta Chronic systolic (congestive) heart failure Angina pectoris Subdural hematoma Insomnia Urinary incontinence History of stroke Overactive bladder Allergic rhinitis COPD (chronic obstructive pulmonary disease) Asthma Vitamin D deficiency Edema Urinary tract infection Hallucinations Intellectual disability Encephalopathy Fall Hypokalemia Acute cystitis Acute ischemic stroke Left hip pain Decreased level of consciousness Lethargy Shortness of breath HLD (hyperlipidemia) Gastroesophageal reflux disease Cerebrovascular disease Benign essential HTN Home Medications ?Medication ?Instructions ?Recorded ?Last Taken ?Type atenolol 50 mg tablet 50 mg PO DAILY blood pressure 01/31/19 09/15/24 History atorvastatin 10 mg tablet 10 mg PO DAILY cholesterol 01/31/19 09/15/24 History clopidogrel 75 mg tablet 75 mg PO DAILY heart health 01/31/19 08/24/24 History loratadine 10 mg tablet 10 mg PO DAILY allergies 01/31/19 09/15/24 History omeprazole 20 mg capsule,delayed 20 mg PO DAILY GERD 01/31/19 09/10/21 History release potassium chloride 20 mEq 20 meq PO BID supplement 09/01/19 08/31/24 History tablet,extended release(part/cryst) albuterol sulfate 90 mcg/actuation 2 puff IH Q4H PRN PRN Wheezing 06/13/20 2 Weeks Ago History aerosol inhaler ~08/27/21 cholecalciferol (vitamin D3) 25 2,000 unit PO DAILY supplement 06/13/20 09/10/21 History mcg (1,000 unit) tablet melatonin 5 mg tablet 5 mg PO QHS PRN Sleep 09/10/21 Unknown History meclizine 25 mg tablet 25 mg PO TID PRN dizziness #30 tabs 09/11/21 09/04/24 Rx furosemide 40 mg tablet 80 mg PO DAILY CHF 12/01/21 09/15/24 History nitroglycerin 0.4 mg sublingual 0.4 mg sublingual Q5-15M PRN chest 12/01/21 Unknown Rx tablet pain #25 tabs amlodipine 2.5 mg tablet 2.5 mg PO DAILY blood pressure 01/25/22 08/24/24 History fluticasone 250 mcg-salmeterol 50 1 inh inhalation BID breathing 01/25/22 Unknown History mcg/dose blistr powdr for inhalation losartan 100 mg tablet See Rx Instructions .Route 04/13/23 Unknown Rx .COMPLEX blood pressure #28 tabs fluticasone propionate 50 2 spray intranasal DAILY allergies 08/31/24 09/14/24 History mcg/actuation nasal spray,suspension isosorbide mononitrate 60 mg 60 mg PO DAILY heart 08/31/24 09/15/24 History tablet,extended release 24 hr loperamide 2 mg capsule 2 mg PO Q6H PRN loose stool 08/31/24 Unknown History (Anti-Diarrheal (loperamide)) oxybutynin chloride 10 mg 10 mg PO DAILY bladder 08/31/24 Unknown History tablet,extended release 24 hr nystatin 100,000 unit/gram topical 1 applic topical BID redness #30 09/15/24 Unknown Rx cream grams Allergy/AdvReac Type Severity Reaction Status Date / Time adhesive Allergy Rash Verified 07/12/24 13:54 amitriptyline Allergy CONFUSION Verified 07/12/24 13:54 codeine Allergy Hives Verified 07/12/24 13:54 hydrocodone bitartrate (From Allergy Hives Verified 07/12/24 13:54 Vicodin) Iodinated Contrast Media Allergy Hives Verified 07/12/24 13:54 (Iodinated Contrast Media - IV Dye) naproxen Allergy Unknown Verified 07/12/24 13:54 Penicillins Allergy Rash Verified 07/12/24 13:54 phenytoin sodium (From Allergy Hives Verified 07/12/24 13:54 Dilantin) phenytoin sodium extended Allergy Hives Verified 07/12/24 13:54 (From Dilantin) silicone Allergy Hives Verified 07/12/24 13:54 Family History Sister Heart disease Surgical History S/P ORIF (open reduction internal fixation) fracture History of umbilical hernia repair History of hysterectomy History of breast biopsy History of brain surgery S/P ORIF (open reduction internal fixation) fracture (~05/19/15) Social History household members: children and other details: Son. Smoking Status: Never smoker alcohol intake: never substance use type: does not use caffeine: Yes Type: carbonated beverages and coffee Physical Exam Cardio Cardio Narrative: Review of electro optics engineer showed underlying normal sinus patient is comfortable does not have any active chest pain I reviewed the cardiac evaluation in detail with the nursing staff the current lab result as well as the medication. Overall cardiac exam essentially normal. S1-S2 regular No systolic or diastolic murmur. Risk Stratification Risk Stratification Applicable: No Objective Data Vital Signs: Vital Signs Temp Pulse Resp BP Pulse Ox O2 Del Method O2 Flow Rate 97.8 F 67 18 111/59 L 95 Nasal Cannula 3 09/17/24 15:16 09/17/24 15:16 09/17/24 15:16 09/17/24 15:16 09/17/24 15:16 09/17/24 15:16 09/17/24 15:16 Oxygen Flow Rate (L/min) 3 Oxygen Delivery Method Nasal Cannula Weight: 179 lb 10.828 oz Body Mass Index (BMI) 29.0 Lab / Micro Data 09/17/24 11:20 09/17/24 11:20 Labs: Laboratory Results - last 24 hr 09/17/24 11:20: WBC 11.5 H, RBC 3.01 L, Hgb 9.3 L, Hct 28.3 L, MCV 94.0, MCH 30.9, MCHC 32.9, RDW Std Deviation 56.0 H, RDW Coeff of Taina 16.4 H, Plt Count 160, MPV 10.7, Immature Gran % (Auto) 1.300 H, Neut % (Auto) 75.0 H, Lymph % (Auto) 14.8 L, [place] % (Auto) 6.9, Eos % (Auto) 1.9, Baso % (Auto) 0.1, Absolute Neuts (auto) 8.6 H, Absolute Lymphs (auto) 1.70, Nucleated RBC % 0, Sodium 141, Potassium 3.1 L, Chloride 108 H, Carbon Dioxide 27.0, Anion Gap 6, BUN 21 H, Creatinine 0.74, Estim Creat Clear Calc 54.58, Est GFR (MDRD) Af Amer 96, Est GFR (MDRD) Non-Af 79, BUN/Creatinine Ratio 28.5 H, Glucose 100, Calcium 8.1 L, Total Bilirubin 0.60, AST 12 L, ALT 25, Alkaline Phosphatase 58, Troponin I High Sens 668 H*, B-Natriuretic Peptide 135.5 H, Total Protein 5.7 L, Albumin 2.4 L, Globulin 3.3, Albumin/Globulin Ratio 0.7 L, Lipase 121 H 09/17/24 11:40: Urine Color Yellow, Urine Clarity Clear, Urine pH 7.0, Ur Specific [place] 1.010, Urine Protein Negative, Urine Glucose (UA) Normal, Urine Ketones Negative, Urine Occult Blood 10 H, Urine Nitrite Negative, Urine Bilirubin Negative, Urine Urobilinogen Normal, Ur Leukocyte Esterase Negative, Urine RBC 0 SEEN, Urine WBC 0 SEEN, Ur Squamous Epith Cells 0-5 SEEN, Urine Bacteria 1+, Urine Mucus 0 SEEN, Urine Yeast 3+ 09/17/24 15:00: Troponin I High Sens 543 H* Micro: Microbiology 09/17/24 11:24 Mucosa - Nasopharyngeal SARS-CoV-2, Influenza & RSV (PCR) - Final ABG Data ABG results: ABG 09/17/24 11:42 Specimen Type JASMYN Sample Site Not entered O2 % 21.0 VBG pH 7.63 H* VBG pO2 52 H VBG HCO3 26 VBG Total CO2 27 VBG O2 Sat (Calc) 93 H VBG Base Excess 5 H POC Mix VBG pCO2 Pt Tmp 25.3 L O2 Delivery Device Not entered Crit Call To/Read Back Yes Blood Gas Notified Whom JW Blood Gas Notified Time 11:43:55 Cardiology Labs/Tests 09/17/24 11:20: WBC 11.5 H, RBC 3.01 L, Hgb 9.3 L, Hct 28.3 L, MCV 94.0, MCH 30.9, MCHC 32.9, Plt Count 160, MPV 10.7, Immature Gran % (Auto) 1.300 H, Neut % (Auto) 75.0 H, Lymph % (Auto) 14.8 L, [place] % (Auto) 6.9, Eos % (Auto) 1.9, Baso % (Auto) 0.1, Absolute Neuts (auto) 8.6 H, Nucleated RBC % 0, Sodium 141, Potassium 3.1 L, Chloride 108 H, Carbon Dioxide 27.0, Anion Gap 6, BUN 21 H, Creatinine 0.74, Est GFR (MDRD) Af Amer 96, Est GFR (MDRD) Non-Af 79, BUN/Creatinine Ratio 28.5 H, Glucose 100, Calcium 8.1 L, Total Bilirubin 0.60, B-Natriuretic Peptide 135.5 H 09/17/24 11:40: Urine Color Yellow, Urine Clarity Clear, Urine pH 7.0, Ur Specific [place] 1.010, Urine Protein Negative, Urine Glucose (UA) Normal, Urine Ketones Negative, Urine Occult Blood 10 H, Urine Nitrite Negative, Urine Bilirubin Negative, Urine Urobilinogen Normal, Ur Leukocyte Esterase Negative, Urine RBC 0 SEEN, Urine WBC 0 SEEN 09/17/24 11:42: VBG pH 7.63 H*, VBG pO2 52 H, VBG HCO3 26, VBG O2 Sat (Calc) 93 H, VBG Base Excess 5 H Rhythm: EKG: ECHO: Stress Test: Cardiac Cath: PCI: CT Surgery: Holter monitor: EPS: PPM: CXR: Chest CT Scan: Radiography Diagnostic Testing: Radiology Impression Chest X-Ray 09/17/24 11:15 IMPRESSION: No acute process Electronically Signed: Milind Paz MD at 13:00 EDT , Chest CTA 09/17/24 12:51 IMPRESSION: 1. Prominence of left epidural fat pad and slight volume loss of the left lung compared to the right which is a chronic abnormality. Chronic interstitial scarring bilaterally. Mild groundglass edema is present bilaterally. Mild pleural thickening and scarring is also seen in the lateral aspect of the left lower lobe. Slight leftward mediastinal rotation due to volume loss. 2. No pneumonic consolidation is present. 3. Redemonstration of mild subsegmental atelectasis in the right lower lobe base. No new abnormalities are present. 4. Previously seen/described bilateral peripheral pulmonary artery emboli are no longer present. No demonstrated pulmonary embolism or arterial dissection. Electronically Signed: Milind Paz MD at 15:35 EDT ,
[2024-09-17 17:41] LABS: Partial Thromboplast Time 22.9 Seconds (24.1-36.2)
[2024-09-17 17:59] LABS: Troponin-I HS 554 pg/mL (3.0-54.0)
[2024-09-17] MEDS: Heparin Injection (Vial) 5,000 UNIT/ML VIAL 4000 UNIT IV (18:03)
[2024-09-17] MEDS: HEPARIN/D5w 25,000 UNITS 25,000 UNITS/250 ML IV.SOLN. 10 UNITS CONT INF (18:04)
--- NOTE | 2024-09-17 18:39 | NURSING ---
Daughter Nikia updated on transfer to ED/PCU. All questions answered at this time, Nikia states understanding and appreciation for care.
[2024-09-17] MEDS: Nystatin Ointment 1 APPLIC TOPICAL (20:04)
[2024-09-17] MEDS: Menthol/Lanolin/Calamine/Znox 113 GM Tube 1 APPLIC TOPICAL (20:04)
[2024-09-18] VITALS (12 sets, daily range): BP systolic 105–118; BP diastolic 53–66; PULSE 63–89; RESP 12–22; TEMP 36.4–36.9; O2SAT 93–98; BMI 29.0
--- NOTE | 2024-09-18 02:00 | NURSING ---
Ptt came back at 85. Heparin infusion paused at 0120. Restarted at 0150 at 900 units/hr. Ptt scheduled for 0750.
[2024-09-18 07:43] LABS: Absolute Lymphocyte Count 0.94 X10^3/uL (0.83-4.51); Absolute Neutrophil Count 11.4 X10^3/uL (2.0-7.7); Basophil# 0.01 X10^3/uL; Basophil% 0.1 % (0-1); Eosinophil# 0.01 X10^3/uL; Eosinophils% 0.1 % (0-5); Hematocrit 29.1 % (37-47); Hemoglobin 9.6 g/dL (12.0-15.0); Lymphocyte # 0.94 X10^3/ul (0.83-4.51); Lymphocyte % 7.1 % (19-41); Mean Corpuscular Hgb 30.6 pg (27.0-32.0); Mean Corpuscular Volume 92.7 fL (81-99); Mean Platelet Vol. 10.2 fl (6.2-12.0); Monocyte# 0.78 X10^3/uL; Monocyte% 5.9 % (0-10); NRBC Flagged by Analyzer 0 % (0-5); Neutrophil # 11.43 X10^3/uL (2.7-7.7); Platelet Count 167 K/mm3 (150-450); RBC Distribution Width CV 16.6 % (11.6-14.6); RBC Distribution Width SD 55.3 fl (35.1-43.9); Red Blood Count 3.14 M/mm3 (4.2-5.4); White Blood Count 13.3 K/mm3 (4.4-11.0)
[2024-09-18 08:48] LABS: ALB/GLOB Ratio 0.8 RATIO (0.9-2.4); AST(SGOT) 12 U/L (15-37); Alanine Aminotransfer ALT/SGPT 21 U/L (13-56); Albumin, Serum 2.6 g/dL (3.2-5.0); Alkaline Phosphatase 59 U/L (45-117); Anion Gap 9 (5-15); BUN 29 mg/dL (7-18); BUN/Creat Ratio 32.9 RATIO (10-20); Calcium,Total 8.6 mg/dL (8.5-10.1); Chloride 104 mmol/L (98-107); Cholesterol 147 mg/dL (200); Creatinine, Serum 0.88 mg/dL (0.55-1.02); EST Glomerular Filtration Rate 65 mL/min (>60); Est Glom Filt Rate - Afr Amer 78 mL/min (>60); Estimated Creatinine Clearance 48.51 ml/min; Globulin 3.2 g/dL (2.2-4.2); Glucose 138 mg/dL (74-106); High Density Lipoprotein 60 mg/dL; Magnesium 2.3 mg/dL (1.6-2.6); Phosphorus 4.9 mg/dL (2.5-4.9); Potassium 3.4 mmol/L (3.5-5.1); Protein, Total 5.8 g/dL (6.4-8.2); Sodium Level 141 mmol/L (136-145); Triglycerides 91 mg/dL; Very Low Density Lipoprotein 18 mg/dL (5-40)
[2024-09-18 09:06] LABS: Partial Thromboplast Time 152.5 Seconds (24.1-36.2)
[2024-09-18] MEDS: Fluticasone 0.05% 1 SPRAY NASAL.SRY 2 SPRAY NASAL (09:21)
[2024-09-18] MEDS: Tolterodine Tartrate 2 MG CAP.SA PO (09:22)
[2024-09-18] MEDS: Pantoprazole Sodium 20 MG Tablet PO (09:22)
[2024-09-18] MEDS: Nystatin Ointment 1 APPLIC TOPICAL ×2 (09:22→21:54)
[2024-09-18] MEDS: Losartan Potassium 100 MG Tablet PO (09:22)
[2024-09-18] MEDS: Isosorbide Mononitrate 60 MG Tablet PO (09:22)
[2024-09-18] MEDS: Clopidogrel Bisulfate 75 MG Tablet PO (09:22)
[2024-09-18] MEDS: amLODIPine 2.5 MG Tablet PO (09:22)
[2024-09-18] MEDS: Atenolol 50 MG Tablet PO (09:23)
[2024-09-18] MEDS: Cholecalciferol (VIT D3) 25 MCG TABLET (1,000 UNITS) 50 MCG PO (09:23)
[2024-09-18] MEDS: Furosemide 40 MG/4 ML Vial IV ×2 (09:24→17:43)
[2024-09-18] MEDS: Menthol/Lanolin/Calamine/Znox 113 GM Tube 1 APPLIC TOPICAL ×2 (09:30→21:54)
--- NOTE | 2024-09-18 10:38 | PCM.PROGNOTE ---
Subjective Subjective Patient seen and examined. She complained of shortness of breath. She denies any cough, chest pain, palpitations, dizziness, nausea, vomiting or any other complaints. Review of systems is otherwise negative. She had 2D echo this morning. She has remained hemodynamically stable. This afternoon patient went down for cookie swallow test but became hypoxic while was there with his saturation going down to the 70s. A rapid response was called. Patient was put on a nonrebreather mask and sent back to the floor. Cookie swallow test was abandoned. Stat chest x-ray done showed pleural-parenchymal changes of the left lung base with blunting of the right costophrenic angle. Stat ABG was also ordered Objective Data Objective Data Vital Signs: Vital Signs Temp Pulse Resp BP Pulse Ox O2 Del Method O2 Flow Rate 98.5 F 63 17 118/66 94 Room Air 3 09/18/24 03:00 09/18/24 03:00 09/18/24 03:00 09/18/24 03:00 09/18/24 07:50 09/18/24 07:50 09/17/24 15:16 Oxygen Flow Rate (L/min) 3 Oxygen Delivery Method Room Air Weight: 179 lb 14.355 oz Body Mass Index (BMI) 29.0 Intake & Output: Intake and Output for Last 24 Hours 09/16/24 09/17/24 09/18/24 23:59 23:59 23:59 Intake Total 100 / 100 140.62 / 140.62 Balance 100 / 100 140.62 / 140.62 Lab / Micro Data 09/18/24 07:33 09/18/24 07:33 Labs: Laboratory Results - last 24 hr 09/17/24 11:20: WBC 11.5 H, RBC 3.01 L, Hgb 9.3 L, Hct 28.3 L, MCV 94.0, MCH 30.9, MCHC 32.9, RDW Std Deviation 56.0 H, RDW Coeff of [place] 16.4 H, Plt Count 160, MPV 10.7, Immature Gran % (Auto) 1.300 H, Neut % (Auto) 75.0 H, Lymph % (Auto) 14.8 L, [place] % (Auto) 6.9, Eos % (Auto) 1.9, Baso % (Auto) 0.1, Absolute Neuts (auto) 8.6 H, Absolute Lymphs (auto) 1.70, Nucleated RBC % 0, Sodium 141, Potassium 3.1 L, Chloride 108 H, Carbon Dioxide 27.0, Anion Gap 6, BUN 21 H, Creatinine 0.74, Estim Creat Clear Calc 54.58, Est GFR (MDRD) Af Amer 96, Est GFR (MDRD) Non-Af 79, BUN/Creatinine Ratio 28.5 H, Glucose 100, Calcium 8.1 L, Total Bilirubin 0.60, AST 12 L, ALT 25, Alkaline Phosphatase 58, Troponin I High Sens 668 H*, B-Natriuretic Peptide 135.5 H, Total Protein 5.7 L, Albumin 2.4 L, Globulin 3.3, Albumin/Globulin Ratio 0.7 L, Lipase 121 H 09/17/24 11:40: Urine Color Yellow, Urine Clarity Clear, Urine pH 7.0, Ur Specific [place] 1.010, Urine Protein Negative, Urine Glucose (UA) Normal, Urine Ketones Negative, Urine Occult Blood 10 H, Urine Nitrite Negative, Urine Bilirubin Negative, Urine Urobilinogen Normal, Ur Leukocyte Esterase Negative, Urine RBC 0 SEEN, Urine WBC 0 SEEN, Ur Squamous Epith Cells 0-5 SEEN, Urine Bacteria 1+, Urine Mucus 0 SEEN, Urine Yeast 3+ 09/17/24 15:00: Troponin I High Sens 543 H* 09/17/24 17:20: APTT 22.9 L, Troponin I High Sens 554 H* 09/18/24 00:15: APTT 85.0 H 09/18/24 07:33: WBC 13.3 H, RBC 3.14 L, Hgb 9.6 L, Hct 29.1 L, MCV 92.7, MCH 30.6, MCHC 33.0, RDW Std Deviation 55.3 H, RDW Coeff of [place] 16.6 H, Plt Count 167, MPV 10.2, Immature Gran % (Auto) 0.800, Neut % (Auto) 86.0 H, Lymph % (Auto) 7.1 L, [place] % (Auto) 5.9, Eos % (Auto) 0.1, Baso % (Auto) 0.1, Absolute Neuts (auto) 11.4 H, Absolute Lymphs (auto) 0.94, Nucleated RBC % 0, APTT 152.5 H*, Sodium 141, Potassium 3.4 L, Chloride 104, Carbon Dioxide 28.0, Anion Gap 9, BUN 29 H, Creatinine 0.88, Estim Creat Clear Calc 48.51, Est GFR (MDRD) Af Amer 78, Est GFR (MDRD) Non-Af 65, BUN/Creatinine Ratio 32.9 H, Glucose 138 H, Calcium 8.6, Phosphorus 4.9, Magnesium 2.3, Total Bilirubin 0.60, AST 12 L, ALT 21, Alkaline Phosphatase 59, Total Protein 5.8 L, Albumin 2.6 L, Globulin 3.2, Albumin/Globulin Ratio 0.8 L, Triglycerides 91, Cholesterol 147, LDL Cholesterol 69, VLDL Cholesterol 18, HDL Cholesterol 60 Micro: Microbiology 09/17/24 17:32 Mucosa - Nasopharyngeal Respiratory Panel (PCR) - Final 09/17/24 11:24 Mucosa - Nasopharyngeal SARS-CoV-2, Influenza & RSV (PCR) - Final ABG Data ABG results: ABG 09/17/24 11:42 Specimen Type JASMYN Sample Site Not entered O2 % 21.0 VBG pH 7.63 H* VBG pO2 52 H VBG HCO3 26 VBG Total CO2 27 VBG O2 Sat (Calc) 93 H VBG Base Excess 5 H POC Mix VBG pCO2 Pt Tmp 25.3 L O2 Delivery Device Not entered Crit Call To/Read Back Yes Blood Gas Notified Whom JW Blood Gas Notified Time 11:43:55 Radiography Diagnostic Testing: Radiology Impression Chest X-Ray 09/17/24 11:15 IMPRESSION: No acute process Electronically Signed: Milind Paz MD at 13:00 EDT Reading Location ID and State: [address] [place] [address] , Service support , Chest CTA 09/17/24 12:51 IMPRESSION: 1. Prominence of left epidural fat pad and slight volume loss of the left lung compared to the right which is a chronic abnormality. Chronic interstitial scarring bilaterally. Mild groundglass edema is present bilaterally. Mild pleural thickening and scarring is also seen in the lateral aspect of the left lower lobe. Slight leftward mediastinal rotation due to volume loss. 2. No pneumonic consolidation is present. 3. Redemonstration of mild subsegmental atelectasis in the right lower lobe base. No new abnormalities are present. 4. Previously seen/described bilateral peripheral pulmonary artery emboli are no longer present. No demonstrated pulmonary embolism or arterial dissection. Electronically Signed: Milind Paz MD at 15:35 EDT , Physical Exam Const alert, oriented x3 and no apparent distress General Appearance: cooperative HEENT normocephalic, head/scalp atraumatic and moist oral mucous membranes Mouth: dry mucous membranes Eyes PERRL and EOMs intact bilaterally Neck no lymphadenopathy and supple Lymph Lymphatic: no lymphadenopathy noted and no lymphedema noted Resp normal respiratory effort, normal air movement and clear to auscultation bilaterally Cardio regular rate, regular rhythm, S1 normal heart sound and S2 normal heart sound Peripheral Pulses: pulses 2+ throughout GI normal to inspection, nondistended, normoactive bowel sounds, soft to palpation, non-tender and non-distended Extremity normal capillary refill, no clubbing, cyanosis or edema and no calf tenderness General Extremity: no tenderness to palpation of joints or extremities Skin General Skin Exam: no breakdown Neuro CN's II-XII intact bilaterally Motor Exam: strength 5/5 throughout and general weakness Psych thought process normal and cooperative Appearance: appropriate Assessment & Plan Assessment/Plan (1) History of partial colectomy: (2) History of GI bleed: PLAN: Plan #Hypoxia etiology s not clear. She recently did have a PE but due to GI bleed was not anticoagulated. She also [place] filter in place 2D echo ordered and pending. BNP was slightly elevated. She has been diuresed with IV Lasix 40 mg twice daily Cardiology was consulted because her troponins trended upwards. Cardiology recommending conservative management thus for now. Breathing treatments with bronchodilators. Titrate oxygen to maintain saturation above 90%. CTA of the chest done showed chronic interstitial scarring bilaterally and mild groundglass edema present bilaterally with mild pleural thickening and scarring with no consolidation. Previously seen bilateral PE no longer present no evidence of arterial dissection. Redemonstration of mild subsegmental atelectasis right lower lobe BNP was only 135.5. Continue diuresis and await 2D echo read As stated a rapid response was called when she went down for the cookie swallow test today. The test was abundant. She required up to 15 L of oxygen by nasal cannula as a rapid response was called due to hypoxia with a saturation going down to the 70s. Stat chest x-ray showed pleural parenchymal changes at the left lung base with blunting of the right costophrenic angle. 2D echo today showed EF of 55% with normal left ventricular size and aneurysmal atrial septum with patent [place] and mild aortic valve insufficiency. Stat ABG done showed respiratory alkalosis. Patient was placed on CPAP to help with her work of breathing #Non-STEMI troponins trended upwards. 2D echo as above. On Plavix. Cardiology on board. Recommends conservative management now she is high risk for any intervention. high intensity statin. Also on Imdur and atenolol as well as high intensity statin #Hypokalemia: Potassium today is 3.4. Replace and trend. 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 She had IVC filter inserted as she could not be anticoagulated at that time due to GI bleed. 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 On meclizine #Benign essential hypertension: On amlodipine, atenolol and losartan Hyperlipidemia: Statin #History of CVA: on plavix. 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 DVT prophylaxis: heparin drip dc'd. SCDs Code status:DNRCCA no intubation Charges/Coding Visit Charges Inpatient E&M: 15121 [facility] Hosp L3
--- NOTE | 2024-09-18 11:39 | SP.MBSS_ITS ---
Modified Barium Swallow Patient Information Study Date: 09/18/24 Study Time: 11:45 Diagnosis: PNA J18.9 Referring Physician: Katy Dubon Reason for Referral: Objectively assess swallow function, assess risk for aspiration, and determine recommendations for least restrictive diet textures and compensatory strategies to improve safety of swallow. Medical History: PMH: Diverticulitis, Renee's palsy, 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, Closed pelvic fracture, HTN, Normocytic anemia, Closed head injury, Falls, Adult FTT, Dizziness, Fracture of rib, Dilatation of aorta, CHF, Subdural hematoma, History of stroke, Allergic rhinitis, COPD, Asthma, Vitamin D deficiency, Edema, UTI, Hallucinations, Intellectual disability, Encephalopathy, Hypokalemia, Acute cystitis, Acute ischemic stroke, Decreased level of consciousness, Lethargy, SOB, HLD, GERD, Cerebrovascular disease (See EMR for full PMH). Pt presented from [facility] TCU to the ED due to acute hypoxia. Patient recently had an extended hospitalization that was complex and was discharged on 09/15/2024. During that hospitalization she initially came in with an acute GI bleed at which time she was found to have a right colonic mass consistent with villous adenoma that was bleeding. She developed hypoxia and was found to have COVID and also pulmonary emboli. Given her GI bleed and inability be anticoagulated that time Whitney filter was placed by vascular surgery on 08/31/2024. Surgery was then planned for 09/04/2024 but had to believe delayed due to development of superimposed bacterial pneumonia and surgical intervention was ultimately performed on 09/11/2024. Patient had been doing well and was discharged to the TCU on 09/15/2024 but today was sent to the ED by nursing for some confusion, shortness of breath, and new hypoxia. Staff did report she is to be wearing her CPAP at night and had refused. Pt admitted to PCU for management of hypoxia, elevated troponin, amongst other comorbidities. Chest x-ray showed chronic right lower lobe atelectasis with no acute abnormalities, fibrosis of both lungs and no acute processes. On exam she did have crackles at the bases, which is not her baseline. ST consulted for swallowing difficulty/ modified diet. BSE revealed no s/s of aspiration; however, she had a discoordinated swallow and required multiple swallows to clear sips. BINDERY CUTTER OPERATOR recommended Easy to Chew textures / Thin liquids w/ plan for MBSS to further assess swallow function and rule out concern for silent aspiration. Current Diet Ordered: Easy to Chew textures / Thin liquids Penetration-Aspiration Scale Penetration-Aspiration Scale: OBJECTIVE ASSESSMENT OF SWALLOW FUNCTION (QUANTITATIVE ? PER TRIAL): PENETRATION / ASPIRATION SCALE (ANDERSON): 1 = does not enter airway 2 = enters airway/above vocal folds/ejected 3 = enters airway/above vocal folds/not ejected 4 = enters airway/contacts vocal folds/ejected 5 = enters airway/contacts vocal folds/not ejected 6 = enters airway/below vocal folds/ejected 7 = enters airway/below vocal folds/not ejected despite effort 8 = enters airway/below vocal folds/no effort VIDEOFLOROSCOPIC SCALE SCORE (ANDERSON): Grade I = aspiration of material that has penetrated into the laryngeal vestibule, intact cough reflex Grade II = aspiration < 10 % of the bolus, intact cough reflex Grade III = aspiration of < 10 % of the bolus, reduced cough reflex or aspiration of > 10 % of the bolus, intact cough reflex Grade IV = aspiration of > 10 % of the bolus, reduced cough reflex Status Active ST Patient: Active Contact Information [facility] Speech Therapy:: Rayne Michaels M.A. [facility]-BINDERY CUTTER OPERATOR? Speech-Language Pathologist?? [facility] [address] [place] [address]? [email or web address]?? [phone]
[2024-09-18] MEDS: Albuterol 2.5 MG/3 ML VIAL.NEB. INHALATION (12:34)
--- NOTE | 2024-09-18 13:13 | RAD_ITS ---
STUDY: X-RAY CHEST REASON FOR EXAM: Female, 89 years old. Hypoxia TECHNIQUE: Single AP portable view of the chest. COMPARISON: Comparison is made with prior study dated September 17, 2004. FINDINGS: EKG electrodes are seen. There is blunting of the left costophrenic angle with left basilar atelectasis and/or infiltrate. Blunting of the right costophrenic angle. Normal size heart. Normal mediastinum and [place]. Normal visualized pulmonary arteries. There is atherosclerotic calcification of the aortic arch with tortuosity. There are diffuse degenerative changes of the visualized thoracic spine. Mild levoscoliosis. There is degenerative osteoarthritis of the bilateral shoulders. There is no demonstrated abnormality of the visualized soft tissue structures of the upper abdomen. RAD/Chest 1 View (Portable) IMPRESSION: Pleural parenchymal changes at the left lung base. Blunting of the right costophrenic angle. Electronically Signed: Artie Chester MD at 13:38 EDT ,
[2024-09-18 14:12] LABS: Allen Test Positive; Base Excess 4 mmol/L (-2 to +2); Bicarbonate 25.3 mmol/L (22-26); Blood Gas Specimen Type ART; Mode Not entered; O2 Delivery Device Cannula; PO2 74 mmHG (75-100); SITE L Radial; SO2 97 % (95-99); Total Carbon Dioxide 26 mmol/L; pCO2 24.9 mmHg (35-45); pH 7.62 (7.35-7.45)
--- NOTE | 2024-09-18 14:26 | CPS ---
Critical ABG value verified times two. DR. Dubon notified.
[2024-09-18] MEDS: 0.9% Saline Lock 10 ML Syringe IV (17:43)
--- NOTE | 2024-09-18 20:58 | CPS ---
Patient does not want to wear the Bipap at this time. She states that she is breathing fine and she remains 98% on 3L nasal cannula.
[2024-09-18] MEDS: Atorvastatin Calcium 10 MG Tablet PO (22:01)
[2024-09-19] VITALS (10 sets, daily range): BP systolic 94–121; BP diastolic 48–59; PULSE 64–75; RESP 16–20; TEMP 36.6–36.9; O2SAT 87–100; BMI 28.4
[2024-09-19 09:04] LABS: Absolute Neutrophil Count 20.8 X10^3/uL (2.0-7.7); Basophil# 0.03 X10^3/uL; Basophil% 0.1 % (0-1); Eosinophil# 0.08 X10^3/uL; Eosinophils% 0.3 % (0-5); Hematocrit 29.1 % (37-47); Hemoglobin 9.7 g/dL (12.0-15.0); Lymphocyte % 6.8 % (19-41); Mean Corp Hgb Conc 33.3 g/dL (32-36); Mean Corpuscular Hgb 31.2 pg (27.0-32.0); Mean Corpuscular Volume 93.6 fL (81-99); Mean Platelet Vol. 10.3 fl (6.2-12.0); Monocyte# 0.95 X10^3/uL; NRBC Flagged by Analyzer 0 % (0-5); Neutrophil # 20.79 X10^3/uL (2.7-7.7); POSITIVE DIFFERENTIAL YES; Platelet Count 160 K/mm3 (150-450); RBC Distribution Width CV 16.5 % (11.6-14.6); RBC Distribution Width SD 55.8 fl (35.1-43.9); Red Blood Count 3.11 M/mm3 (4.2-5.4); White Blood Count 23.6 K/mm3 (4.4-11.0)
[2024-09-19 09:21] LABS: Differential Indicated SCAN CRITERIA MET
[2024-09-19 09:37] LABS: Anion Gap 8 (5-15); BUN 35 mg/dL (7-18); BUN/Creat Ratio 31.5 RATIO (10-20); Calcium,Total 8.5 mg/dL (8.5-10.1); Chloride 107 mmol/L (98-107); Creatinine, Serum 1.11 mg/dL (0.55-1.02); EST Glomerular Filtration Rate 49 mL/min (>60); Est Glom Filt Rate - Afr Amer 60 mL/min (>60); Estimated Creatinine Clearance 38.07 ml/min; Glucose 109 mg/dL (74-106); Potassium 3.1 mmol/L (3.5-5.1); Sodium Level 143 mmol/L (136-145)
[2024-09-19] MEDS: Menthol/Lanolin/Calamine/Znox 113 GM Tube 1 APPLIC TOPICAL ×2 (09:50→21:11)
[2024-09-19] MEDS: Tolterodine Tartrate 2 MG CAP.SA PO (09:51)
[2024-09-19] MEDS: Furosemide 40 MG/4 ML Vial IV ×2 (09:51→17:15)
[2024-09-19] MEDS: Pantoprazole Sodium 20 MG Tablet PO (09:52)
[2024-09-19] MEDS: 0.9% Saline Lock 10 ML Syringe IV ×2 (09:52→17:15)
[2024-09-19] MEDS: Nystatin Ointment 1 APPLIC TOPICAL ×2 (09:52→21:13)
[2024-09-19] MEDS: Clopidogrel Bisulfate 75 MG Tablet PO (09:53)
--- NOTE | 2024-09-19 11:45 | RAD_ITS ---
STUDY: X-RAY CHEST REASON FOR EXAM: Female, 89 years old. hypoxia, probable aspiration TECHNIQUE: PA and lateral views of the chest. COMPARISON: 09/18/2024 FINDINGS: The lungs are clear and expanded. There is no demonstrated pleural abnormality. There is moderate cardiac enlargement. Normal mediastinum and [place]. Normal visualized pulmonary arteries. Normal visualized aortic arch and descending thoracic aorta. Normal visualized thoracic spine. Normal visualized ribs, clavicles, and shoulders. There is no demonstrated abnormality of the visualized soft tissue structures of the upper abdomen. RAD/Chest PA and Lateral IMPRESSION: No active disease. Electronically Signed: Ariel Stein MD at 10:00 EDT ,
--- NOTE | 2024-09-19 12:01 | CASEMGMT ---
VICKY received a call from Shreya, patient's immigration case manager from [facility]. VICKY updated Shreya. Melisa Abraham MSW ISHAN
[2024-09-19] MEDS: Cefepime HCl 1 GM in 0.9% Normal Saline (50mL MB+) 50 ML IV ×2 (12:09→21:11)
--- NOTE | 2024-09-19 13:43 | PN_ITS ---
Subjective Subjective Patient seen and examined. This morning she had no active complaints and was on 2 to 3 L of oxygen. She did feel weak and fell. When attempts to repeat the modified barium swallow was made today, patient got hypoxic with sitting up and had to be placed on BiPAP. She denies any cough or chest pain, palpitations or dizziness, nausea or vomiting. Objective Data Objective Data Vital Signs: Vital Signs Temp Pulse Resp BP Pulse Ox O2 Del Method O2 Flow Rate 98.5 F 75 18 94/59 L 100 Bi-pap 6 09/19/24 09:49 09/19/24 09:49 09/19/24 09:49 09/19/24 09:49 09/19/24 12:14 09/19/24 12:14 09/19/24 11:00 FiO2 30 09/19/24 12:14 Oxygen Flow Rate (L/min) 6 Oxygen Delivery Method Bi-pap Weight: 176 lb 2.389 oz Body Mass Index (BMI) 28.4 Intake & Output: Intake and Output for Last 24 Hours 09/17/24 09/18/24 09/19/24 23:59 23:59 23:59 Intake Total 100 / 100 590.62 / 650.62 110 / 110 Output Total 350 / 550 500 / 500 Balance 100 / 100 240.62 / 100.62 -390 / -390 Lab / Micro Data 09/19/24 08:51 09/19/24 08:51 Labs: Laboratory Results - last 24 hr 09/19/24 08:51: WBC 23.6 H, RBC 3.11 L, Hgb 9.7 L, Hct 29.1 L, MCV 93.6, MCH 31.2, MCHC 33.3, RDW Std Deviation 55.8 H, RDW Coeff of [place]ain[place] 16.5 H, Plt Count 160, MPV 10.3, Immature Gran % (Auto) 0.800, Neut % (Auto) 88.0 H, Lymph % (Auto) 6.8 L, [place] % (Auto) 4.0, Eos % (Auto) 0.3, Baso % (Auto) 0.1, Absolute Neuts (auto) 20.8 H, Absolute Lymphs (auto) 1.60, Nucleated RBC % 0, Sodium 143, Potassium 3.1 L, Chloride 107, Carbon Dioxide 28.0, Anion Gap 8, BUN 35 H, C reatinine 1.11 H, Estim Creat Clear Calc 38.07, Est GFR (MDRD) Af Amer 60, Est GFR (MDRD) Non-Af 49 L, BUN/Creatinine Ratio 31.5 H, Glucose 109 H, Calcium 8.5 Micro: Microbiology 09/18/24 09:20 Urine, Random Legionella Antigen - Final 09/18/24 09:20 Urine, Random Streptococcus pneumoniae Antigen (M - Final 09/17/24 17:32 Mucosa - Nasopharyngeal Respiratory Panel (PCR) - Final 09/17/24 11:24 Mucosa - Nasopharyngeal SARS-CoV-2, Influenza & RSV (PCR) - Final ABG Data ABG results: ABG 09/18/24 14:00 Specimen Type ART Sample Site L Radial pH 7.62 H* Bicarbonate Actual 25.3 Total CO2 26 Base Excess 4 H O2 Saturation 97 O2 % 3.0 ABG pCO2 24.9 L ABG pO2 74 L Pérez Test Positive O2 Delivery Device Cannula Vent Mode Not entered Crit Call To/Read Back Yes Blood Gas Notified Whom Blood Gas Notified Time 14:10:15 Physical Exam Const alert, oriented x3 and no apparent distress Constitutional Narrative: Frail, weak was initially on oxygen by nasal cannula but subsequently placed on BiPAP General Appearance: cooperative HEENT normocephalic, head/scalp atraumatic and moist oral mucous membranes; Negative for hearing grossly normal bilaterally Eyes PERRL and EOMs intact bilaterally Neck no lymphadenopathy and supple Lymph Lymphatic: no lymphadenopathy noted and no lymphedema noted Resp Resp Narrative: Diminished breath sounds bibasilarly. No wheezes or crackles. On BiPAP Auscultation: crackles; Negative for rhonchi or wheezes Cardio regular rate, regular rhythm, S1 normal heart sound, S2 normal heart sound, no murmurs, no rub, no gallops and no clicks Peripheral Pulses: pulses 2+ throughout GI normal to inspection, nondistended, normoactive bowel sounds, soft to palpation, non-tender and non-distended Extremity normal capillary refill, no clubbing, cyanosis or edema and no calf tenderness General Extremity: no tenderness to palpation of joints or extremities Skin No no rashes or lesions noted, No no wounds, skin turgor normal, no jaundice, no petechiae and no mottling General Skin Exam: no breakdown Neuro CN's II-XII intact bilaterally, moves all extremities and no focal motor deficits Neuro Narrative: Marked generalized weakness Sensorium / Orientation: awake, alert and oriented to person; Negative for oriented to place or oriented to time Speech: speech normal Motor Exam: general weakness Psych thought process normal and cooperative Appearance: appropriate Assessment & Plan Assessment/Plan (1) History of partial colectomy: (2) History of GI bleed: PLAN: Plan # Acute hypoxic respiratory failure * I am concerned about possible aspiration as she became very hypoxic yesterday when attempting the barium swallow and this happened again today. * She recently did have a PE but due to GI bleed was not anticoagulated. She also Whitney filter in place * 2D echo ordered and pending. BNP was slightly elevated. She has been diuresed with IV Lasix 40 mg twice daily * Cardiology was consulted because her troponins trended upwards. Cardiology recommending conservative management thus for now. * Breathing treatments with bronchodilators. Titrate oxygen to maintain saturation above 90%. * CTA of the chest done showed chronic interstitial scarring bilaterally and mild groundglass edema present bilaterally with mild pleural thickening and scarring with no consolidation. Previously seen bilateral PE no longer present no evidence of arterial dissection. Redemonstration of mild subsegmental atelectasis right lower lobe * BNP was only 135.5. Continue diuresis * Rapid response was called yesterday when she went in for the cookie swallow test. She required up to 15 L of oxygen but when she could back to the floor she was weaned onto her baseline 3 L of oxygen. 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 * On BiPAP. Will consult pulmonology. Started on IV cefepime due to concerns about possible aspiration pneumonia * WBC also down to 23.6 today. Increasing the concern for possible aspiration pneumonia. * Urine for strep and Legionella antigens are negative and respiratory panel also negative. * * #Non-STEMI * troponins trended upwards. * 2D echo as above. On Plavix. * Cardiology on board. Recommends conservative management now she is high risk for any intervention. * high intensity statin. * Also on Imdur and atenolol as well as high intensity statin * #Hypokalemia: Potassium today is 3.4. Replace and trend. 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 * #Recent bilateral PE * Was diagnosed with bilateral PE on 08/31/2024 during her previous admission. * She had IVC filter inserted as she could not be anticoagulated at that time due to GI bleed. 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 On meclizine #Benign essential hypertension: On amlodipine, atenolol and losartan #Hyperlipidemia: Statin #History of CVA: on plavix. 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 DVT prophylaxis: heparin drip dc'd. SCDs Code status:DNRCCA no intubation Charges/Coding Visit Charges Inpatient E&M: 28178 Subs Hosp L3
[2024-09-19] MEDS: Atorvastatin Calcium 10 MG Tablet PO (21:11)
[2024-09-19] MEDS: Potassium Chloride Oral Tablet 20 MEQ 40 MEQ PO (23:36)
[2024-09-20] VITALS (9 sets, daily range): BP systolic 96–138; BP diastolic 58–64; PULSE 59–80; RESP 12–104; TEMP 36.3–36.6; O2SAT 99–100; BMI 27.7
[2024-09-20 06:14] LABS: Absolute Lymphocyte Count 0.87 X10^3/uL (0.83-4.51); Absolute Neutrophil Count 14.1 X10^3/uL (2.0-7.7); Basophil# 0.01 X10^3/uL; Basophil% 0.1 % (0-1); Eosinophil# 0.12 X10^3/uL; Eosinophils% 0.8 % (0-5); Hematocrit 30.5 % (37-47); Hemoglobin 9.5 g/dL (12.0-15.0); Lymphocyte # 0.87 X10^3/ul (0.83-4.51); Lymphocyte % 5.5 % (19-41); Mean Corp Hgb Conc 31.1 g/dL (32-36); Mean Corpuscular Hgb 29.8 pg (27.0-32.0); Mean Corpuscular Volume 95.6 fL (81-99); Mean Platelet Vol. 10.4 fl (6.2-12.0); Monocyte# 0.67 X10^3/uL; Monocyte% 4.2 % (0-10); NRBC Flagged by Analyzer 0 % (0-5); Neutrophil # 14.14 X10^3/uL (2.7-7.7); Neutrophil % 88.8 % (47-70); Platelet Count 152 K/mm3 (150-450); RBC Distribution Width CV 16.1 % (11.6-14.6); RBC Distribution Width SD 56.7 fl (35.1-43.9); Red Blood Count 3.19 M/mm3 (4.2-5.4); White Blood Count 15.9 K/mm3 (4.4-11.0)
[2024-09-20 06:34] LABS: Anion Gap 5 (5-15); BUN 32 mg/dL (7-18); BUN/Creat Ratio 32.1 RATIO (10-20); Calcium,Total 8.8 mg/dL (8.5-10.1); Chloride 109 mmol/L (98-107); EST Glomerular Filtration Rate 56 mL/min (>60); Est Glom Filt Rate - Afr Amer 68 mL/min (>60); Estimated Creatinine Clearance 41.76 ml/min; Glucose 101 mg/dL (74-106); Potassium 3.5 mmol/L (3.5-5.1); Sodium Level 144 mmol/L (136-145)
[2024-09-20] MEDS: Menthol/Lanolin/Calamine/Znox 113 GM Tube 1 APPLIC TOPICAL ×2 (09:35→21:01)
[2024-09-20] MEDS: 0.9% Saline Lock 10 ML Syringe IV ×3 (09:35→18:30)
[2024-09-20] MEDS: Cefepime HCl 1 GM in 0.9% Normal Saline (50mL MB+) 50 ML IV ×2 (09:35→21:02)
[2024-09-20] MEDS: Nystatin Ointment 1 APPLIC TOPICAL ×2 (09:36→21:03)
[2024-09-20] MEDS: Furosemide 40 MG/4 ML Vial IV ×2 (09:36→18:30)
[2024-09-20] MEDS: Tolterodine Tartrate 2 MG CAP.SA PO (09:37)
[2024-09-20] MEDS: Atenolol 50 MG Tablet PO (09:37)
[2024-09-20] MEDS: Isosorbide Mononitrate 60 MG Tablet PO (09:37)
[2024-09-20] MEDS: Pantoprazole Sodium 20 MG Tablet PO (09:37)
[2024-09-20] MEDS: Losartan Potassium 100 MG Tablet PO (09:37)
[2024-09-20] MEDS: amLODIPine 2.5 MG Tablet PO (09:37)
[2024-09-20] MEDS: Clopidogrel Bisulfate 75 MG Tablet PO (09:37)
--- NOTE | 2024-09-20 10:59 | PN_ITS ---
Subjective Subjective Patient seen and examined. She feels well today. She is on 2 L of oxygen. She had an uneventful night. Review of systems otherwise negative. WBC is down to 15.9. Objective Data Objective Data Vital Signs: Vital Signs Temp Pulse Resp BP Pulse Ox O2 Del Method O2 Flow Rate 97.6 F L 80 18 138/64 H 100 Nasal Cannula 2 09/20/24 09:00 09/20/24 09:00 09/20/24 09:00 09/20/24 09:00 09/20/24 09:00 09/20/24 09:00 09/20/24 09:00 FiO2 30 09/19/24 12:14 Oxygen Flow Rate (L/min) 2 Oxygen Delivery Method Nasal Cannula Weight: 171 lb 11.841 oz Body Mass Index (BMI) 27.7 Intake & Output: Intake and Output for Last 24 Hours 09/18/24 09/19/24 09/20/24 23:59 23:59 23:59 Intake Total 590.62 / 650.62 160 / 220 110 / 110 Output Total 350 / 550 1200 / 1950 1150 / 1150 Balance 240.62 / 100.62 -1040 / -1730 -1040 / -1040 Lab / Micro Data 09/20/24 05:32 09/20/24 05:32 Labs: Laboratory Results - last 24 hr 09/20/24 05:32: WBC 15.9 H, RBC 3.19 L, Hgb 9.5 L, Hct 30.5 L, MCV 95.6, MCH 29.8, MCHC 31.1 L D, RDW Std Deviation 56.7 H, RDW Coeff of Taina 16.1 H, Plt Count 152, MPV 10.4, Immature Gran % (Auto) 0.600, Neut % (Auto) 88.8 H, Lymph % (Auto) 5.5 L, [place] % (Auto) 4.2, Eos % (Auto) 0.8, Baso % (Auto) 0.1, Absolute Neuts (auto) 14.1 H, Absolute Lymphs (auto) 0.87, Nucleated RBC % 0, Sodium 144, Potassium 3.5, Chloride 109 H, Carbon Dioxide 30.0, Anion Gap 5, BUN 32 H, Creatinine 1.00, Estim Creat Clear Calc 41.76, Est GFR (MDRD) Af Amer 68, Est GFR (MDRD) Non-Af 56 L, BUN/Creatinine Ratio 32.1 H, Glucose 101, Calcium 8.8 Micro: Microbiology 09/18/24 09:20 Urine, Random Legionella Antigen - Final 09/18/24 09:20 Urine, Random Streptococcus pneumoniae Antigen (M - Final 09/17/24 17:32 Mucosa - Nasopharyngeal Respiratory Panel (PCR) - Final 09/17/24 11:24 Mucosa - Nasopharyngeal SARS-CoV-2, Influenza & RSV (PCR) - Final Radiography Diagnostic Testing: Radiology Impression Chest X-Ray 09/19/24 11:45 IMPRESSION: No active disease. Electronically Signed: Ariel Stein MD at 10:00 EDT , Physical Exam Const alert, oriented x3 and no apparent distress; Negative for average body habitus or healthy appearing Constitutional Narrative: On 2L of oxygen by nasal canula General Appearance: cooperative HEENT normocephalic, head/scalp atraumatic, moist oral mucous membranes and oropharynx normal Eyes PERRL and EOMs intact bilaterally Neck no lymphadenopathy and supple Lymph Lymphatic: no lymphadenopathy noted and no lymphedema noted Resp Resp Narrative: Diminished breath sounds bibasilarly. No wheezes or crackles. on 2L of oxygen by nasal canula Auscultation: crackles; Negative for rhonchi or wheezes Cardio regular rate, regular rhythm, S1 normal heart sound, S2 normal heart sound, no murmurs, no rub, no gallops and no clicks Peripheral Pulses: pulses 2+ throughout GI normal to inspection, nondistended, normoactive bowel sounds, soft to palpation, non-tender and non-distended Extremity normal capillary refill, no clubbing, cyanosis or edema and no calf tenderness Extremity Narrative: Radial and pedal pulses are 2+ General Extremity: no tenderness to palpation of joints or extremities Skin No no rashes or lesions noted, No no wounds, skin turgor normal, no jaundice, no petechiae and no mottling Skin Narrative: P General Skin Exam: no breakdown Neuro CN's II-XII intact bilaterally, moves all extremities and no focal motor deficits Neuro Narrative: Marked generalized weakness Sensorium / Orientation: awake, alert and oriented to person; Negative for oriented to place or oriented to time Speech: speech normal Motor Exam: general weakness Psych thought process normal and cooperative Appearance: appropriate Assessment & Plan Assessment/Plan (1) History of partial colectomy: (2) History of GI bleed: PLAN: Plan # Acute hypoxic respiratory failure * concern for aspiration. * She recently did have a PE but due to GI bleed was not anticoagulated. She also Rawlings filter in place * 2D echo ordered and pending. BNP was slightly elevated. She has been diuresed with IV Lasix 40 mg twice daily * Cardiology was consulted because her troponins trended upwards. Cardiology recommending conservative management thus for now. * Breathing treatments with bronchodilators. Titrate oxygen to maintain saturation above 90%. * CTA of the chest done showed chronic interstitial scarring bilaterally and mild groundglass edema present bilaterally with mild pleural thickening and scarring with no consolidation. Previously seen bilateral PE no longer present no evidence of arterial dissection. Redemonstration of mild subsegmental atelectasis right lower lobe * BNP was only 135.5. Continue diuresis * Rapid response was called during this admission when she went in for the cookie swallow test. She required up to 15 L of oxygen but when she could back to the floor she was weaned onto her baseline 3 L of oxygen. 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 * Now off BIPAP and down to 2L of oxygen. * on IV cefepime due to concern about pneumonia * wbc down to 15.9 today. * Urine for strep and Legionella antigens are negative and respiratory panel also negative. * cultures are pending * #Non-STEMI * troponins trended upwards. * 2D echo as above. On Plavix. * Cardiology on board. Recommends conservative management now she is high risk for any intervention. * high intensity statin. * Also on Imdur and atenolol as well as high intensity statin * #Hypokalemia: resolved. Potassium is 3.5. 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 * #Recent bilateral PE * Was diagnosed with bilateral PE on 08/31/2024 during her previous admission. * She had IVC filter inserted as she could not be anticoagulated at that time due to GI bleed. 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 On meclizine #Benign essential hypertension: On amlodipine, atenolol and losartan #Hyperlipidemia: Statin #History of CVA: on plavix. 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 DVT prophylaxis: heparin drip dc'd. SCDs Code status:DNRCCA no intubation Charges/Coding Visit Charges Inpatient E&M: 98571 Subs Hosp L2
[2024-09-20] MEDS: DiphenhydrAMINE 50 MG/ML Syringe IV (14:58)
[2024-09-20] MEDS: HYDROmorphone 1 MG/ML Syringe IV (14:58)
--- NOTE | 2024-09-20 15:41 | PCMCONS.TICU ---
HPI Consult Data Date of Consult: 09/21/24 HPI Narrative HPI Narrative: CARMEN LAND, is a 89 F who presents [facility] Medical History Diverticulitis 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 Closed pelvic fracture Pelvic fracture Fall from slipping Essential hypertension Hypertension Normocytic anemia Closed head injury Closed fracture of right hip Fall Adult failure to thrive Weakness Dizziness Fracture of rib Dilatation of aorta Chronic systolic (congestive) heart failure Angina pectoris Subdural hematoma Insomnia Urinary incontinence History of stroke Overactive bladder Allergic rhinitis COPD (chronic obstructive pulmonary disease) Asthma Vitamin D deficiency Edema Urinary tract infection Hallucinations Intellectual disability Encephalopathy Fall Hypokalemia Acute cystitis Acute ischemic stroke Left hip pain Decreased level of consciousness Lethargy Shortness of breath HLD (hyperlipidemia) Gastroesophageal reflux disease Cerebrovascular disease Benign essential HTN Home Medications ?Medication ?Instructions ?Recorded ?Last Taken ?Type atenolol 50 mg tablet 50 mg PO DAILY blood pressure 01/31/19 09/15/24 History atorvastatin 10 mg tablet 10 mg PO DAILY cholesterol 01/31/19 09/15/24 History clopidogrel 75 mg tablet 75 mg PO DAILY heart health 01/31/19 08/24/24 History loratadine 10 mg tablet 10 mg PO DAILY allergies 01/31/19 09/15/24 History omeprazole 20 mg capsule,delayed 20 mg PO DAILY GERD 01/31/19 09/10/21 History release potassium chloride 20 mEq 20 meq PO BID supplement 09/01/19 08/31/24 History tablet,extended release(part/cryst) albuterol sulfate 90 mcg/actuation 2 puff IH Q4H PRN PRN Wheezing 06/13/20 2 Weeks Ago History aerosol inhaler ~08/27/21 cholecalciferol (vitamin D3) 25 2,000 unit PO DAILY supplement 06/13/20 09/10/21 History mcg (1,000 unit) tablet melatonin 5 mg tablet 5 mg PO QHS PRN Sleep 09/10/21 Unknown History meclizine 25 mg tablet 25 mg PO TID PRN dizziness #30 tabs 09/11/21 09/04/24 Rx furosemide 40 mg tablet 80 mg PO DAILY CHF 12/01/21 09/15/24 History nitroglycerin 0.4 mg sublingual 0.4 mg sublingual Q5-15M PRN chest 12/01/21 Unknown Rx tablet pain #25 tabs amlodipine 2.5 mg tablet 2.5 mg PO DAILY blood pressure 01/25/22 08/24/24 History fluticasone 250 mcg-salmeterol 50 1 inh inhalation BID breathing 01/25/22 Unknown History mcg/dose blistr powdr for inhalation losartan 100 mg tablet See Rx Instructions .Route 04/13/23 Unknown Rx .COMPLEX blood pressure #28 tabs fluticasone propionate 50 2 spray intranasal DAILY allergies 08/31/24 09/14/24 History mcg/actuation nasal spray,suspension isosorbide mononitrate 60 mg 60 mg PO DAILY heart 08/31/24 09/15/24 History tablet,extended release 24 hr loperamide 2 mg capsule 2 mg PO Q6H PRN loose stool 08/31/24 Unknown History (Anti-Diarrheal (loperamide)) oxybutynin chloride 10 mg 10 mg PO DAILY bladder 08/31/24 Unknown History tablet,extended release 24 hr nystatin 100,000 unit/gram topical 1 applic topical BID redness #30 09/15/24 Unknown Rx cream grams Allergy/AdvReac Type Severity Reaction Status Date / Time adhesive Allergy Rash Verified 07/12/24 13:54 amitriptyline Allergy CONFUSION Verified 07/12/24 13:54 codeine Allergy Hives Verified 07/12/24 13:54 hydrocodone bitartrate (From Allergy Hives Verified 07/12/24 13:54 Vicodin) Iodinated Contrast Media Allergy Hives Verified 07/12/24 13:54 (Iodinated Contrast Media - IV Dye) naproxen Allergy Unknown Verified 07/12/24 13:54 Penicillins Allergy Rash Verified 07/12/24 13:54 phenytoin sodium (From Allergy Hives Verified 07/12/24 13:54 Dilantin) phenytoin sodium extended Allergy Hives Verified 07/12/24 13:54 (From Dilantin) silicone Allergy Hives Verified 07/12/24 13:54 Family History Sister Heart disease Surgical History S/P ORIF (open reduction internal fixation) fracture History of umbilical hernia repair History of hysterectomy History of breast biopsy History of brain surgery S/P ORIF (open reduction internal fixation) fracture (~05/19/15) Social History household members: children and other details: Son. Smoking Status: Never smoker alcohol intake: never substance use type: does not use caffeine: Yes Type: carbonated beverages and coffee Objective Data Objective Data Vital Signs: Vital Signs Last response Temperature 36.3 C L 09/20/24 14:57 Temperature Source Temporal 09/20/24 14:57 Pulse Rate 71 09/20/24 14:57 Respiratory Rate 20 H 09/20/24 14:57 Respiratory Effort Short of Breath 09/20/24 14:00 Respiratory Depth Shallow 09/20/24 14:00 Respiratory Pattern Tachypnea 09/20/24 14:00 Blood Pressure 96/58 L 09/20/24 14:57 Blood Pressure Mean 70 09/20/24 14:57 Blood Pressure Source Monitor 09/20/24 14:57 Blood Pressure Position Semi-Fowlers 09/20/24 14:57 Blood Pressure Location Right Arm 09/20/24 14:57 Pulse Ox 100 09/20/24 14:57 Oxygen Delivery Method Bi-pap 09/20/24 14:57 Oxygen Flow Rate (L/min) 2 09/20/24 09:00 Fraction of Inspired Oxygen (FIO2) 100 09/20/24 14:57 I&O: I&O Last 24 Hours 09/19/24 09/20/24 09/20/24 23:59 11:59 23:59 Intake Total 100 / 220 110 / 110 Output Total 700 / 1950 1150 / 1800 650 / 1800 Balance -600 / -1730 -1040 / -1690 -650 / -1690 I&O: Total Stay 09/17/24 10:11 thru 09/20/24 13:11 Intake Total 960.62 Output Total 3350 Balance -2389.38 Current Meds Ordered / Administered: Current meds ordered / Administered Generic Name Dose Route Start Last Admin Trade Name Freq PRN Reason Stop Dose Admin Acetaminophen 650 mg 09/17/24 14:01 Acetaminophen 325 Mg Tablet PO Q6H PRN PRN Pain 1-10 Or Fever>100.7 Albuterol Sulfate 2.5 mg 09/17/24 14:01 09/18/24 12:34 Albuterol 2.5 Mg/3 Ml Vial.Neb. INHALATION 2.5 mg Q2H PRN PRN Administration SOB &/OR WHEEZING Amlodipine Besylate 2.5 mg 09/18/24 10:00 09/20/24 09:37 Amlodipine 2.5 Mg Tablet PO 2.5 mg DAILY JENNIFER Administration Protocol Atenolol 50 mg 09/18/24 10:00 09/20/24 09:37 Atenolol 50 Mg Tablet PO 50 mg DAILY JENNIFER Administration Protocol Atorvastatin Calcium 10 mg 09/18/24 22:00 09/19/24 21:11 Atorvastatin Calcium 10 Mg Tablet PO 10 mg QHS JENNIFER Administration Calamine/Phenol 1 applic 09/17/24 22:00 09/20/24 09:35 Menthol/Lanolin/Calamine/Znox 113 Gm Tube TOPICAL 1 applic BID JENNIFER Administration Protocol Cholecalciferol 50 mcg 09/18/24 10:00 09/20/24 09:36 Cholecalciferol (Vit D3) 25 Mcg Tablet (1,000 Units) PO Not Given DAILY JENNIFER Clopidogrel Bisulfate 75 mg 09/18/24 10:00 09/20/24 09:37 Clopidogrel Bisulfate 75 Mg Tablet PO 75 mg DAILY JENNIFER Administration Fluticasone Propionate 2 spray 09/18/24 10:00 09/20/24 09:36 Fluticasone 0.05% 1 [place] Nasal.Sry NASAL Not Given DAILY JENNIFER Furosemide 40 mg 09/17/24 15:00 09/20/24 09:36 Furosemide 40 Mg/4 Ml Vial IV 40 mg BIDLX JENNIFER Administration Protocol Heparin Sodium (Porcine) 0 unit 09/17/24 15:45 Heparin Injection (Vial) 5,000 Unit/Ml Vial IV UD PRN dose adjustment Protocol Sodium Chloride 500 mls @ 15 mls/hr 09/17/24 14:18 IV .[id number] PRN Saline Flush Sodium Chloride 500 mls @ 15 mls/hr 09/17/24 14:18 IV .[id number] PRN Additional IVPB Infusion Cefepime HCl 1 gm/ Sodium 50 mls @ 100 mls/hr 09/19/24 11:50 09/20/24 10:25 Chloride IV Infused Q12 JENNIFER Infusion Isosorbide Mononitrate 60 mg 09/18/24 10:00 09/20/24 09:37 Isosorbide Mononitrate 60 Mg Tablet PO 60 mg DAILY JENNIFER Administration Protocol Losartan Potassium 100 mg 09/18/24 10:00 09/20/24 09:37 Losartan Potassium 100 Mg Tablet PO 100 mg DAILY JENNIFER Administration Protocol Meclizine HCl 25 mg 09/17/24 14:01 Meclizine Hcl 25 Mg Tablet PO TID PRN dizziness Melatonin 5 mg 09/17/24 14:20 Melatonin 10 Mg Tablet PO QHS PRN Sleep Methylprednisolone 40 mg 09/20/24 14:45 09/20/24 14:58 Methylprednisolone 40 Mg/Ml Vial IV 09/20/24 18:46 40 mg Q4H JENNIFER Administration Nystatin 1 applic 09/17/24 22:00 09/20/24 09:36 Nystatin Ointment TOPICAL 1 applic BID JENNIFER Administration Ondansetron HCl 4 mg 09/17/24 14:01 Ondansetron 4 Mg/2 Ml Vial IV Q8H PRN PRN NAUSEA/VOMITING Pantoprazole Sodium 20 mg 09/18/24 10:00 09/20/24 09:37 Pantoprazole Sodium 20 Mg Tablet PO 20 mg DAILY JENNIFER Administration Senna/Docusate Sodium 2 tablet 09/17/24 14:01 Senna/Docusate Sodium 1 Tablet PO BID PRN PRN Constipation Sodium Chloride 10 - 40 ml 09/17/24 14:18 09/20/24 14:58 0.9% Saline Lock 10 Ml Syringe IV 10 ml UD PRN Administration SALINE FLUSH Tolterodine Tartrate 2 mg 09/18/24 10:00 09/20/24 09:37 Tolterodine Tartrate 2 Mg Cap.Sa PO 2 mg DAILY JENNIFER Administration Lab / Micro Data 09/20/24 05:32 09/20/24 05:32 Labs: Laboratory Results - last 24 hr 09/20/24 05:32: WBC 15.9 H, RBC 3.19 L, Hgb 9.5 L, Hct 30.5 L, MCV 95.6, MCH 29.8, MCHC 31.1 L D, RDW Std Deviation 56.7 H, RDW Coeff of Taina 16.1 H, Plt Count 152, MPV 10.4, Immature Gran % (Auto) 0.600, Neut % (Auto) 88.8 H, Lymph % (Auto) 5.5 L, [place] % (Auto) 4.2, Eos % (Auto) 0.8, Baso % (Auto) 0.1, Absolute Neuts (auto) 14.1 H, Absolute Lymphs (auto) 0.87, Nucleated RBC % 0, Sodium 144, Potassium 3.5, Chloride 109 H, Carbon Dioxide 30.0, Anion Gap 5, BUN 32 H, Creatinine 1.00, Estim Creat Clear Calc 41.76, Est GFR (MDRD) Af Amer 68, Est GFR (MDRD) Non-Af 56 L, BUN/Creatinine Ratio 32.1 H, Glucose 101, Calcium 8.8 Imaging Radiology Impression Chest X-Ray 09/19/24 11:45 IMPRESSION: No active disease. Electronically Signed: Ariel Stein MD at 10:00 EDT , Assessment and Plan . Assessment and plan: HPI 89 yo female admitted recently w/ dyspnea and hypoxemia. She has receintly undergone right hossein-colectomy d/t GI bleeding from a right-sided colon lesion. Her post-operative course was c/b COVID-19 infection as well as VTED. IVC filter was placed d/t her risk for GI bleeding w/ A/C therapy. CTA chest reveals no e/o current PTED. There is some volume loss on the left and subtle GGO. BNP is modestly elevated. She has undergone barium swallow evaluation w/ some o/p dysphagia noted. There is a suggestion of some lower lobe dependent interstitial fibrosis/scarring on CT scan. She is currently requiring NIV support. She appears comfortable w/ RR 14-16 BPM. SpO2 100% w/ FiO2 0.8. IPAP/EPAP 12/8 She has significant abdominal pain and is scheduled to undergo abdominal imaging later today. PHYSICAL EXAM GEN NAD - looks chronically ill VS as above HEENT NIV FFM NECK supple COR RRR CHEST decreased w/ fine basilar crackles ABD soft EXT minimal edema SKIN w/d DAMARI globally weak ASSESSMENT 1. Acute respiratory failure requiring NIPPV support 2. (?) chronic ILD 3. (?) recurrent aspiration 4. Recent hossein-colectomy 5. Recent COVID-19 infection 6. Recent VTED - IVC filter placement 7. Abdominal pain TREATMENT PLAN -supplemental O2 -NIV support as needed -ongoing ST -consider therapeutic A/C going forward The entirety of this encounter was done via Telemedicine
--- NOTE | 2024-09-20 16:22 | CT_ITS ---
STUDY: CT ABDOMEN AND PELVIS WITH CONTRAST REASON FOR EXAM: Female, 89 years old. abdominal pain RADIATION DOSAGE (If Supplied By Facility): CTDIvol = ( 18.94 ) mGy, DLP = ( 962.00 ) mGycm TECHNIQUE: Transaxial images were obtained from the dome of the diaphragm to the symphysis pubis without oral contrast. IV 100mL Isovue-300 was administered. Sagittal and coronal images were reconstructed. Individualized dose optimization techniques were used for this CT. The protocol utilizes one or more of the following dose reduction techniques: automated exposure control, adjustment of mA and/or kV according to patient size,and/or use of iterative reconstruction technique. COMPARISON: August 25, 2024 CT abdomen and pelvis FINDINGS: Bibasilar subsegmental atelectasis. Cardiomegaly calcific coronary artery disease. Normal liver. Normal gallbladder and extrahepatic biliary system. Normal spleen. Normal pancreas. Normal bilateral adrenal glands. 2.3 cm simple right renal cortical cyst. Smaller bilateral simple renal cysts. No further follow-up required as appears simple/benign. Normal visualized stomach. Normal small intestine. Colonic diverticulosis. Right hemicolectomy. Calcified plaque along the aorta and its branches. IVC filter below the renal veins. Normal retroperitoneum. Normal urinary bladder. Normal abdominal wall. Hardware in the proximal femurs bilaterally. Mild dextroconvex scoliosis and spondylosis. Diffuse demineralization. Old left pelvic fracture. CT/Abdomen/Pelvis W IV Cont ONLY IMPRESSION: No acute disease. Incidental findings as above. Electronically Signed: Storm Koehler MD at 17:52 EDT ,
[2024-09-20] MEDS: Atorvastatin Calcium 10 MG Tablet PO (21:02)
[2024-09-21] VITALS (31 sets, daily range): BP systolic 110–184; BP diastolic 53–114; PULSE 55–87; RESP 16–22; TEMP 36.3–36.7; O2SAT 76–100; BMI 27.6
[2024-09-21 07:43] LABS: Absolute Neutrophil Count 11.5 X10^3/uL (2.0-7.7); Basophil# 0.01 X10^3/uL; Basophil% 0.1 % (0-1); Lymphocyte % 5.6 % (19-41); Mean Corp Hgb Conc 31.3 g/dL (32-36); Mean Corpuscular Hgb 30.5 pg (27.0-32.0); Mean Corpuscular Volume 97.6 fL (81-99); Mean Platelet Vol. 10.3 fl (6.2-12.0); Monocyte% 1.6 % (0-10); NRBC Flagged by Analyzer 0 % (0-5); Neutrophil # 11.47 X10^3/uL (2.7-7.7); Neutrophil % 92.1 % (47-70); Platelet Count 184 K/mm3 (150-450); RBC Distribution Width CV 15.8 % (11.6-14.6); RBC Distribution Width SD 56.3 fl (35.1-43.9); Red Blood Count 3.28 M/mm3 (4.2-5.4); White Blood Count 12.5 K/mm3 (4.4-11.0)
[2024-09-21 08:09] LABS: Anion Gap 7 (5-15); BUN 52 mg/dL (7-18); BUN/Creat Ratio 35.1 RATIO (10-20); Calcium,Total 9.6 mg/dL (8.5-10.1); Chloride 112 mmol/L (98-107); Creatinine, Serum 1.48 mg/dL (0.55-1.02); EST Glomerular Filtration Rate 36 mL/min (>60); Est Glom Filt Rate - Afr Amer 43 mL/min (>60); Glucose 157 mg/dL (74-106); Potassium 3.8 mmol/L (3.5-5.1); Sodium Level 149 mmol/L (136-145)
[2024-09-21] MEDS: Tolterodine Tartrate 2 MG CAP.SA PO (11:51)
[2024-09-21] MEDS: Cholecalciferol (VIT D3) 25 MCG TABLET (1,000 UNITS) 50 MCG PO (11:51)
[2024-09-21] MEDS: Losartan Potassium 100 MG Tablet PO (11:51)
[2024-09-21] MEDS: Atenolol 50 MG Tablet PO (11:51)
[2024-09-21] MEDS: Nystatin Ointment 1 APPLIC TOPICAL ×2 (11:52→22:27)
[2024-09-21] MEDS: Clopidogrel Bisulfate 75 MG Tablet PO (11:52)
[2024-09-21] MEDS: Isosorbide Mononitrate 60 MG Tablet PO (11:52)
[2024-09-21] MEDS: amLODIPine 2.5 MG Tablet PO (11:52)
[2024-09-21] MEDS: Menthol/Lanolin/Calamine/Znox 113 GM Tube 1 APPLIC TOPICAL ×2 (11:53→22:28)
[2024-09-21] MEDS: Furosemide 40 MG/4 ML Vial IV ×2 (11:57→17:37)
[2024-09-21] MEDS: 0.9% Saline Lock 10 ML Syringe IV ×3 (11:57→22:28)
[2024-09-21] MEDS: Acetaminophen 325 MG Tablet 650 MG PO ×2 (11:57→18:00)
[2024-09-21] MEDS: Cefepime HCl 1 GM in 0.9% Normal Saline (50mL MB+) 50 ML IV ×2 (11:58→23:06)
--- NOTE | 2024-09-21 12:55 | PN_ITS ---
Subjective Subjective Patient seen and examined. She was lying comfortably in bed. She had no active complaints and was on 2 L of oxygen. However patient subsequently tried significant for 0.5. Swallow and then became hypoxic. She was apparently clutching her abdomen and in a lot of pain. Of note she had CT abdomen and pelvis done yesterday which showed no evidence of any acute pathology. I am therefore quite flat most about exactly what is causing his abdominal pain. Will consult general surgery. Objective Data Objective Data Vital Signs: Vital Signs Temp Pulse Resp BP Pulse Ox O2 Del Method O2 Flow Rate 98.1 F 60 18 148/62 H 99 Nasal Cannula 2 09/21/24 11:48 09/21/24 11:48 09/21/24 11:48 09/21/24 11:48 09/21/24 11:55 09/21/24 11:48 09/21/24 11:55 FiO2 50 09/21/24 08:56 Oxygen Flow Rate (L/min) 2 Oxygen Delivery Method Nasal Cannula Weight: 171 lb 8.314 oz Body Mass Index (BMI) 27.6 Intake & Output: Intake and Output for Last 24 Hours 09/19/24 09/20/24 09/21/24 23:59 23:59 23:59 Intake Total 160 / 220 160 / 220 60 / 60 Output Total 1200 / 1950 1800 / 2100 600 / 600 Balance -1040 / -1730 -1640 / -1880 -540 / -540 Lab / Micro Data 09/21/24 07:27 09/21/24 07:27 Labs: Laboratory Results - last 24 hr 09/21/24 07:27: WBC 12.5 H, RBC 3.28 L, Hgb 10.0 L, Hct 32.0 L, MCV 97.6, MCH 30.5, MCHC 31.3 L, RDW Std Deviation 56.3 H, RDW Coeff of Taina 15.8 H, Plt Count 184, MPV 10.3, Immature Gran % (Auto) 0.600, Neut % (Auto) 92.1 H, Lymph % (Auto) 5.6 L, [place] % (Auto) 1.6, Eos % (Auto) 0.0, Baso % (Auto) 0.1, Absolute Neuts (auto) 11.5 H, Absolute Lymphs (auto) 0.70 L, Nucleated RBC % 0, Sodium 149 H, Potassium 3.8, Chloride 112 H, Carbon Dioxide 30.0, Anion Gap 7, BUN 52 H , Creatinine 1.48 H, Estim Creat Clear Calc 28.20, Est GFR (MDRD) Af Amer 43 L, Est GFR (MDRD) Non-Af 36 L, BUN/Creatinine Ratio 35.1 H, Glucose 157 H, Calcium 9.6 Micro: Microbiology 09/18/24 09:20 Urine, Random Legionella Antigen - Final 09/18/24 09:20 Urine, Random Streptococcus pneumoniae Antigen (M - Final 09/17/24 17:32 Mucosa - Nasopharyngeal Respiratory Panel (PCR) - Final 09/17/24 11:24 Mucosa - Nasopharyngeal SARS-CoV-2, Influenza & RSV (PCR) - Final Radiography Diagnostic Testing: Radiology Impression Abdomen/Pelvis CT 09/20/24 16:22 IMPRESSION: No acute disease. Incidental findings as above. Electronically Signed: Storm Koehler MD at 17:52 EDT Reading Location ID and State: [address] [place] [address] Tel , Service support , Physical Exam Const alert, oriented x3, no apparent distress and well nourished; Negative for average body habitus or healthy appearing Constitutional Narrative: On 2L of oxygen by nasal canula General Appearance: cooperative HEENT normocephalic, head/scalp atraumatic, moist oral mucous membranes and oropharynx normal; Negative for hearing grossly normal bilaterally Eyes PERRL and EOMs intact bilaterally Eyes Narrative: Conjunctiva are pale bilaterally, no scleral icterus Neck no lymphadenopathy and supple Lymph Lymphatic: no lymphadenopathy noted and no lymphedema noted Resp normal respiratory effort, normal air movement, no retractions, no use of accessory muscles and clear to auscultation bilaterally Resp Narrative: Diminished breath sounds bibasilarly. No wheezes or crackles. on 2L of oxygen by nasal canula Auscultation: crackles; Negative for rhonchi or wheezes Cardio regular rate, regular rhythm, S1 normal heart sound, S2 normal heart sound, no murmurs, no rub, no gallops and no clicks Peripheral Pulses: pulses 2+ throughout GI normal to inspection, nondistended, normoactive bowel sounds, soft to palpation, non-tender and non-distended GI Narrative: area of surgical incision well healed, minimal tenderness, no guarding. Extremity normal capillary refill, no clubbing, cyanosis or edema and no calf tenderness Extremity Narrative: Radial and pedal pulses are 2+ General Extremity: no tenderness to palpation of joints or extremities Skin No no rashes or lesions noted, No no wounds, skin turgor normal, no jaundice, no petechiae and no mottling Skin Narrative: P General Skin Exam: no breakdown Neuro CN's II-XII intact bilaterally, moves all extremities and no focal motor deficits Neuro Narrative: Marked generalized weakness Sensorium / Orientation: awake, alert and oriented to person; Negative for oriented to place or oriented to time Speech: speech normal Motor Exam: strength 5/5 throughout and general weakness Psych thought process normal and cooperative Appearance: appropriate Assessment & Plan Assessment/Plan (1) History of partial colectomy: (2) History of GI bleed: PLAN: Plan # Acute hypoxic respiratory failure * concern for aspiration. * She recently did have a PE but due to GI bleed was not anticoagulated. She also Whitney filter in place * 2D echo ordered and pending. BNP was slightly elevated. She has been diuresed with IV Lasix 40 mg twice daily * Cardiology was consulted because her troponins trended upwards. Cardiology recommending conservative management thus for now. * Breathing treatments with bronchodilators. Titrate oxygen to maintain saturation above 90%. * CTA of the chest done showed chronic interstitial scarring bilaterally and mild groundglass edema present bilaterally with mild pleural thickening and scarring with no consolidation. Previously seen bilateral PE no longer present no evidence of arterial dissection. Redemonstration of mild subsegmental atelectasis right lower lobe * BNP was only 135.5. Continue diuresis * Rapid response was called during this admission when she went in for the cookie swallow test. She required up to 15 L of oxygen but when she could back to the floor she was weaned onto her baseline 3 L of oxygen. 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 * Has intermittent shortness of breath especially when she tries to sit up and has abdominal pain and then requires BiPAP. * Now off BIPAP and down to 2L of oxygen. * on IV cefepime due to concern about pneumonia * wbc down to 15.9 today. * Urine for strep and Legionella antigens are negative and respiratory panel also negative. * cultures are pending * I did get a CT of the abdomen and pelvis yesterday which showed no acute pathology. WBC is down to 12.5. I will consult general surgery to get their input as of not sure what is going on with patient with regards to her abdominal pain * #Non-STEMI * troponins trended upwards. * 2D echo as above. On Plavix. * Cardiology on board. Recommends conservative management now she is high risk for any intervention. * high intensity statin. * Also on Imdur and atenolol as well as high intensity statin * #Hypokalemia: resolved. Potassium is 3.5. #Hypernatremia: Sodium is 149. Creatinine is also up to 1.48. Will hydrate patient with D5 half NS to help with sodium and also with the elevated creatinine. #KALLIE: * Creatinine is 1.48. Baseline is around 1. * Likely due to dehydration as she has not been eating and drinking. * Will hydrate with fluids as above and trend. 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 * surgical site well healed, but patient keeps complaining of abdominal pain * CT of the abdomen and pelvis showed no acute pathology * get general surgery evaluation * * #Recent bilateral PE * Was diagnosed with bilateral PE on 08/31/2024 during her previous admission. * She had IVC filter inserted as she could not be anticoagulated at that time due to GI bleed. 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 On meclizine #Benign essential hypertension: On amlodipine, atenolol and losartan #Hyperlipidemia: Statin #History of CVA: on plavix. 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 DVT prophylaxis: heparin drip dc'd. SCDs Code status:DNRCCA no intubation ADDENDUM A stroke alert was called at 14:51 o/a of patient being found aphasic in bed. By the time I arrived, patient had been placed on BIPAP as she had become hypoxic also. She was alert and responsive. She could answer questions. There was no visible mouth droop, and she could lift her left and right arms. She had weakness in her lower extremities and could not lift them up on command. She was not aphasic, and could answer questions; her speech did not sound slurred. She was initially hypoxic, saturating in the 70s; however when her bed was reclined, her sats improved to 87%; this was similar to previous incidents where she had been noted to be hypoxic on sitting up and her saturation improved with lying down. She was sent emergently to CT for a stat CT brain without contrast; she has an allergy to contrast, so CTA was not ordered. [facility]. [facility] was reviewed patient and said CAT scan showed evidence of old stroke in the right MCA region but no evidence of acute stroke. She is not a tPA candidate as she had a GI bleed just about 3 weeks ago. Will continue with Plavix for now. Yanique spent: 35 mins Charges/Coding Visit Charges Inpatient E&M: 62139 Subs Hosp L3 (prolonged inpatient care with stroke alert: [id number])
--- NOTE | 2024-09-21 15:07 | CT_ITS ---
We are attempting to reach an attending provider to discuss findings. An addendum with communication details will be sent when the communication is complete. STUDY: CT BRAIN WITHOUT CONTRAST REASON FOR EXAM: Female, 89 years old. Stroke symptoms RADIATION DOSAGE (If Supplied By Facility): CTDIvol = ( 44.99 ) mGy, DLP = ( 829.85 ) mGycm TECHNIQUE: Transaxial CT imaging of the brain was performed without administration of intravenous contrast material. Individualized dose optimization techniques were used for this CT. COMPARISON: Comparison is made with prior study March 12, 2023. FINDINGS: Normal soft tissue structures. Normal calvarium. There is moderate cerebral atrophy with widening of the extra-axial spaces and ventricular dilatation. There are areas of decreased attenuation within the white matter tracts of the supratentorial brain, consistent with microvascular disease changes. Stable left cortical sulci infarct. Stable focal encephalomalacia in the medial aspect of the left temporal lobe in keeping with old infarct. Normal basal ganglia and thalami. Normal brainstem. Normal cerebellum. There is no intracranial hemorrhage. There are no findings of an acute ischemic infarction. Dense calcification of the vertebral arteries and cavernous portions of the internal carotid arteries bilaterally. Dolichoectasia of the basilar tip. Normal visualized paranasal sinuses. CT/Brain/Head without Contrast IMPRESSION: Chronic involutional changes of the brain. Electronically Signed: Artie Chester MD at 15:29 EDT ,
--- NOTE | 2024-09-21 15:17 | CHAPLAIN ---
Type of Pastoral Visit ___ Initial Visit ___ Follow-up Visit ___ On-call Visit ___ General Patient Visit ___ Spiritual Assessment ___ Family Conference ___ Bereavement _x__ Rapid Response ___ Code Blue ___ Other (describe below) Pastoral Care Referral From ___ Patient ___ Family ___ Nurse ___ Physician ___ Licensed Occupational Therapist ___ Merchandise Flow Team Member _x__ Other (describe below) Sacrament/Intervention ___ Active listening ___ Anointing ___ Jehovah'S Witness ___ Bereavement ___ Communion ___ Gia exploration ___ ___ Life review ___ Prayer ___ Reconciliation ___ Sacrament of Sick _x__ Supportive presence ___ Wedding ___ Other (describe below) Pastoral Comments responded to stroke alert and pt was being attended to by the medical team; pt is being readied for move to [place]; no family members are present
[2024-09-21 17:27] LABS: Bedside Glucose 198 mg/dL (74-106)
[2024-09-21] MEDS: Dext 5%-0.45% NS 1,000 ML 125 ML IV (17:38)
[2024-09-21] MEDS: Senna/Docusate Sodium 1 Tablet 2 TABLET PO (18:00)
--- NOTE | 2024-09-21 20:31 | EX.PCM.CON.S ---
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 Surgery was consulted for complaints of persistent abdominal pain and the fact that these abdominal pain complaints are made generally prior to desaturation events. CT imaging of the abdomen and pelvis was repeated yesterday, 09/20/2024, and radiology did not identify any acute processes. Notably, this imaging was done without enteral contrast. On exam, patient is describing right upper quadrant and left lower quadrant abdominal discomfort. Right upper quadrant discomfort would be roughly in the same vicinity as her resection versus her gallbladder. Neither is regionally related to her incisions. The latter appear well-healing. Would thus consider right upper quadrant ultrasound versus repeating CT imaging with central contrast. Will plan to discuss case with operating surgeon Dr. Calvin tomorrow as well. Frederick Macario MD General Surgery Endocrine Surgery Pager: [facility] [address] [place] [address], [address] [place] [address] Office: [phone] HPI Consult Data Date of Consult: 09/21/24 HPI Narrative Reason for Consultation: Abdominal pain following right hemicolectomy HPI Narrative: CARMEN LAND, is a 89 F who presents back to inpatient stay after a brief stay in the transitional care unit. Patient is known to this service for her care under Dr. Calvin who operated on 09/11/2024 for a bleeding villous adenoma of the right colon that had led to acute blood loss anemia. Timing to surgery was delayed, however, on account of development of both bacterial pneumonia, COVID, and pulmonary emboli. Patient's immediate postoperative course was uneventful and she was discharged to the transitional care unit on 09/15/2024. However, she developed hypoxia and required readmission to the hospital floor on 09/17/2024. At the time of her readmission her workup was significant for a elevated troponin and modestly elevated BNP. CTA of the chest was performed given patient's history and did not show any evidence of pneumonic consolidation nor did it show evidence of the previously identified pulmonary emboli. Surgery has been asked to evaluate patient, however, because she is described persistent right-sided abdominal pain and is noted to become hypoxic whenever she is changed from a supine position to a more upright position. According to nursing, patient seems to do so as she becomes anxious about the change in position and her discomfort. Upon evaluation this evening, patient notes that her discomfort has remained the same since her surgery. Nursing does report that she has had normal, nonbloody bowel movements since arriving back to the hospital floor. She has been n.p.o. for the last several days on the account of her hypoxia and concern for aspiration while waiting a formal barium swallow study. 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 Closed pelvic fracture Pelvic fracture Fall from slipping Essential hypertension Hypertension Normocytic anemia Closed head injury Closed fracture of right hip Fall Adult failure to thrive Weakness Dizziness Fracture of rib Dilatation of aorta Chronic systolic (congestive) heart failure Angina pectoris Subdural hematoma Insomnia Urinary incontinence History of stroke Overactive bladder Allergic rhinitis COPD (chronic obstructive pulmonary disease) Asthma Vitamin D deficiency Edema Urinary tract infection Hallucinations Intellectual disability Encephalopathy Fall Hypokalemia Acute cystitis Acute ischemic stroke Left hip pain Decreased level of consciousness Lethargy Shortness of breath HLD (hyperlipidemia) Gastroesophageal reflux disease Cerebrovascular disease Benign essential HTN Home Medications ?Medication ?Instructions ?Recorded ?Last Taken ?Type atenolol 50 mg tablet 50 mg PO DAILY blood pressure 01/31/19 09/15/24 History atorvastatin 10 mg tablet 10 mg PO DAILY cholesterol 01/31/19 09/15/24 History clopidogrel 75 mg tablet 75 mg PO DAILY heart health 01/31/19 08/24/24 History loratadine 10 mg tablet 10 mg PO DAILY allergies 01/31/19 09/15/24 History omeprazole 20 mg capsule,delayed 20 mg PO DAILY GERD 01/31/19 09/10/21 History release potassium chloride 20 mEq 20 meq PO BID supplement 09/01/19 08/31/24 History tablet,extended release(part/cryst) albuterol sulfate 90 mcg/actuation 2 puff IH Q4H PRN PRN Wheezing 06/13/20 2 Weeks Ago History aerosol inhaler ~08/27/21 cholecalciferol (vitamin D3) 25 2,000 unit PO DAILY supplement 06/13/20 09/10/21 History mcg (1,000 unit) tablet melatonin 5 mg tablet 5 mg PO QHS PRN Sleep 09/10/21 Unknown History meclizine 25 mg tablet 25 mg PO TID PRN dizziness #30 tabs 09/11/21 09/04/24 Rx furosemide 40 mg tablet 80 mg PO DAILY CHF 12/01/21 09/15/24 History nitroglycerin 0.4 mg sublingual 0.4 mg sublingual Q5-15M PRN chest 12/01/21 Unknown Rx tablet pain #25 tabs amlodipine 2.5 mg tablet 2.5 mg PO DAILY blood pressure 01/25/22 08/24/24 History fluticasone 250 mcg-salmeterol 50 1 inh inhalation BID breathing 01/25/22 Unknown History mcg/dose blistr powdr for inhalation losartan 100 mg tablet See Rx Instructions .Route 04/13/23 Unknown Rx .COMPLEX blood pressure #28 tabs fluticasone propionate 50 2 spray intranasal DAILY allergies 08/31/24 09/14/24 History mcg/actuation nasal spray,suspension isosorbide mononitrate 60 mg 60 mg PO DAILY heart 08/31/24 09/15/24 History tablet,extended release 24 hr loperamide 2 mg capsule 2 mg PO Q6H PRN loose stool 08/31/24 Unknown History (Anti-Diarrheal (loperamide)) oxybutynin chloride 10 mg 10 mg PO DAILY bladder 08/31/24 Unknown History tablet,extended release 24 hr nystatin 100,000 unit/gram topical 1 applic topical BID redness #30 09/15/24 Unknown Rx cream grams Allergy/AdvReac Type Severity Reaction Status Date / Time adhesive Allergy Rash Verified 07/12/24 13:54 amitriptyline Allergy CONFUSION Verified 07/12/24 13:54 codeine Allergy Hives Verified 07/12/24 13:54 hydrocodone bitartrate (From Allergy Hives Verified 07/12/24 13:54 Vicodin) Iodinated Contrast Media Allergy Hives Verified 07/12/24 13:54 (Iodinated Contrast Media - IV Dye) naproxen Allergy Unknown Verified 07/12/24 13:54 Penicillins Allergy Rash Verified 07/12/24 13:54 phenytoin sodium (From Allergy Hives Verified 07/12/24 13:54 Dilantin) phenytoin sodium extended Allergy Hives Verified 07/12/24 13:54 (From Dilantin) silicone Allergy Hives Verified 07/12/24 13:54 Family History Sister Heart disease Surgical History S/P ORIF (open reduction internal fixation) fracture History of umbilical hernia repair History of hysterectomy History of breast biopsy History of brain surgery S/P ORIF (open reduction internal fixation) fracture (~05/19/15) Social History household members: children and other details: Son. Smoking Status: Never smoker alcohol intake: never substance use type: does not use caffeine: Yes Type: carbonated beverages and coffee Physical Exam Const alert Constitutional Narrative: Patient initially appears oriented to person place and timing, but then gives conflicting answers Orientation / Consciousness: confused Nutritional Appearance: overweight Resp normal respiratory effort Resp Narrative: With BiPAP in place GI GI Narrative: Operative dressings were still intact with minimal strikethrough, these were removed and there is no adán-incisional erythema or drainage with Steri-Strips still intact. Patient's abdomen is nondistended, soft, and she notes tenderness in the left lower and right upper quadrants. Patient's tenderness is more pronounced in the right upper quadrant. Lab / Micro Data 09/21/24 07:27 09/21/24 07:27 Labs: Laboratory Results - last 24 hr 09/21/24 07:27: WBC 12.5 H, RBC 3.28 L, Hgb 10.0 L, Hct 32.0 L, MCV 97.6, MCH 30.5, MCHC 31.3 L, RDW Std Deviation 56.3 H, RDW Coeff of Taina 15.8 H, Plt Count 184, MPV 10.3, Immature Gran % (Auto) 0.600, Neut % (Auto) 92.1 H, Lymph % (Auto) 5.6 L, [place] % (Auto) 1.6, Eos % (Auto) 0.0, Baso % (Auto) 0.1, Absolute Neuts (auto) 11.5 H, Absolute Lymphs (auto) 0.70 L, Nucleated RBC % 0, Sodium 149 H, Potassium 3.8, Chloride 112 H, Carbon Dioxide 30.0, Anion Gap 7, BUN 52 H, Creatinine 1.48 H, Estim Creat Clear Calc 28.20, Est GFR (MDRD) Af Amer 43 L, Est GFR (MDRD) Non-Af 36 L, BUN/Creatinine Ratio 35.1 H, Glucose 157 H, Calcium 9.6 09/21/24 14:48: POC Glucose 198 H Imaging Radiology Impression Brain CT 09/21/24 15:07 IMPRESSION: Chronic involutional changes of the brain. Electronically Signed: Artie Chester MD at 15:29 EDT , ADDENDUM: 09/21/24 1612 IMPRESSION: Chronic involutional changes of the brain. N.B. : The above Results were Read Back by Artie Chester MD to Dr Ling MD, and understanding confirmed on 09/21/2024 16:05:58 (ET). Electronically Signed: Artie Chester MD at 15:29 EDT , Charges/Coding Visit Charges Inpatient E&M: 22765 Subs Hosp L2
[2024-09-21] MEDS: Atorvastatin Calcium 10 MG Tablet PO (22:27)
--- NOTE | 2024-09-21 23:26 | PN.CC_ITS ---
Objective Data Objective Data Vital Signs: Vital Signs Last response 3 Temperature 36.4 C L 09/21/24 21:26 Temperature Source Oral 09/21/24 21:26 Pulse Rate 56 L 09/21/24 21:26 Respiratory Rate 19 H 09/21/24 21:26 Respiratory Effort Normal, Non-Labored 09/21/24 22:50 Respiratory Depth Normal 09/21/24 22:50 Respiratory Pattern Normal 09/21/24 22:50 Blood Pressure 123/54 H 09/21/24 21:26 Blood Pressure Mean 77 09/21/24 21:26 Blood Pressure Source Monitor 09/21/24 21:26 Blood Pressure Position Semi-Fowlers 09/21/24 21:26 Blood Pressure Location Right Arm 09/21/24 21:26 Pulse Ox 98 09/21/24 21:42 Oxygen Delivery Method Nasal Cannula 09/21/24 22:50 Oxygen Flow Rate (L/min) 3 09/21/24 22:50 Fraction of Inspired Oxygen (FIO2) 30 09/21/24 21:42 I&O: I&O Last 24 Hours 3 09/20/24 09/21/24 09/21/24 23:59 11:59 23:59 Intake Total 50 / 220 60 / 110 50 / 110 Output Total 650 / 2100 600 / 600 Balance -600 / -1880 -540 / -490 50 / -490 I&O: Total Stay 3 09/17/24 10:11 thru 09/21/24 13:00 Intake Total 1120.62 Output Total 3950 Balance -2829.38 Current Meds Ordered / Administered: Current meds ordered / Administered 3 Generic Name Dose Route Start Last Admin Trade Name Emilai PRN Reason Stop Dose Admin Acetaminophen 650 mg 09/17/24 14:01 09/21/24 18:00 Acetaminophen 325 Mg Tablet PO 650 mg Q6H PRN PRN Administration Pain 1-10 Or Fever>100.7 Albuterol Sulfate 2.5 mg 09/17/24 14:01 09/18/24 12:34 Albuterol 2.5 Mg/3 Ml Vial.Neb. INHALATION 2.5 mg Q2H PRN PRN Administration SOB &/OR WHEEZING Amlodipine Besylate 2.5 mg 09/18/24 10:00 09/21/24 11:52 Amlodipine 2.5 Mg Tablet PO 2.5 mg DAILY JENNIFER Administration Protocol Atenolol 50 mg 09/18/24 10:00 09/21/24 11:51 Atenolol 50 Mg Tablet PO 50 mg DAILY JENNIFER Administration Protocol Atorvastatin Calcium 10 mg 09/18/24 22:00 09/21/24 22:27 Atorvastatin Calcium 10 Mg Tablet PO 10 mg QHS JENNIFER Administration Calamine/Phenol 1 applic 09/17/24 22:00 09/21/24 22:28 Menthol/Lanolin/Calamine/Znox 113 Gm Tube TOPICAL 1 applic BID JENNIFER Administration Protocol Cholecalciferol 50 mcg 09/18/24 10:00 09/21/24 11:51 Cholecalciferol (Vit D3) 25 Mcg Tablet (1,000 Units) PO 50 mcg DAILY JENNIFER Administration Clopidogrel Bisulfate 75 mg 09/18/24 10:00 09/21/24 11:52 Clopidogrel Bisulfate 75 Mg Tablet PO 75 mg DAILY JENNIFER Administration Fluticasone Propionate 2 spray 09/18/24 10:00 09/21/24 11:49 Fluticasone 0.05% 1 [place] Nasal.Sry NASAL Not Given DAILY JENNIFER Furosemide 40 mg 09/17/24 15:00 09/21/24 17:37 Furosemide 40 Mg/4 Ml Vial IV 40 mg BIDLX JENNIFER Administration Protocol Heparin Sodium (Porcine) 0 unit 09/17/24 15:45 Heparin Injection (Vial) 5,000 Unit/Ml Vial IV UD PRN dose adjustment Protocol Sodium Chloride 500 mls @ 15 mls/hr 09/17/24 14:18 IV .[id number] PRN Saline Flush Sodium Chloride 500 mls @ 15 mls/hr 09/17/24 14:18 IV .[id number] PRN Additional IVPB Infusion Cefepime HCl 1 gm/ Sodium 50 mls @ 100 mls/hr 09/19/24 11:50 09/21/24 23:06 Chloride IV 100 mls/hr Q12 JENNIFER Administration Dextrose/Sodium Chloride 1,000 mls @ 125 mls/hr 09/21/24 16:00 09/21/24 17:38 IV 09/22/24 15:59 125 mls/hr .Q8H JENNIFER Administration Protocol Isosorbide Mononitrate 60 mg 09/18/24 10:00 09/21/24 11:52 Isosorbide Mononitrate 60 Mg Tablet PO 60 mg DAILY JENNIFER Administration Protocol Losartan Potassium 100 mg 10/28/24 10:00 09/21/24 11:51 Losartan Potassium 100 Mg Tablet PO 100 mg DAILY JENNIFER Administration Protocol Meclizine HCl 25 mg 09/17/24 14:01 Meclizine Hcl 25 Mg Tablet PO TID PRN dizziness Melatonin 5 mg 09/17/24 14:20 Melatonin 10 Mg Tablet PO QHS PRN Sleep Nystatin 1 applic 09/17/24 22:00 09/21/24 22:27 Nystatin Ointment TOPICAL 1 applic BID JENNIFER Administration Ondansetron HCl 4 mg 09/17/24 14:01 Ondansetron 4 Mg/2 Ml Vial IV Q8H PRN PRN NAUSEA/VOMITING Pantoprazole Sodium 20 mg 09/18/24 10:00 09/21/24 12:32 Pantoprazole Sodium 20 Mg Tablet PO Not Given DAILY JENNIFER Senna/Docusate Sodium 2 tablet 09/17/24 14:01 09/21/24 18:00 Senna/Docusate Sodium 1 Tablet PO 2 tablet BID PRN PRN Administration Constipation Sodium Chloride 10 - 40 ml 09/17/24 14:18 09/21/24 22:28 0.9% Saline Lock 10 Ml Syringe IV 10 ml UD PRN Administration SALINE FLUSH Tolterodine Tartrate 2 mg 09/18/24 10:00 09/21/24 11:51 Tolterodine Tartrate 2 Mg Cap.Sa PO 2 mg DAILY JENNIFER Administration Lab / Micro Data 09/21/24 07:27 09/21/24 07:27 Labs: Laboratory Results - last 24 hr 09/21/24 07:27: WBC 12.5 H, RBC 3.28 L, Hgb 10.0 L, Hct 32.0 L, MCV 97.6, MCH 30.5, MCHC 31.3 L, RDW Std Deviation 56.3 H, RDW Coeff of [place]aina 15.8 H, Plt Count 184, MPV 10.3, Immature Gran % (Auto) 0.600, Neut % (Auto) 92.1 H, Lymph % (Auto) 5.6 L, [place] % (Auto) 1.6, Eos % (Auto) 0.0, Baso % (Auto) 0.1, Absolute Neuts (auto) 11.5 H, Absolute Lymphs (auto) 0.70 L, Nucleated RBC % 0, Sodium 149 H, Potassium 3.8, Chloride 112 H, Carbon Dioxide 30.0, Anion Gap 7, BUN 52 H , Creatinine 1.48 H, Estim Creat Clear Calc 28.20, Est GFR (MDRD) Af Amer 43 L, Est GFR (MDRD) Non-Af 36 L, BUN/Creatinine Ratio 35.1 H, Glucose 157 H, Calcium 9.6 09/21/24 14:48: POC Glucose 198 H Imaging Radiology Impression Brain CT 09/21/24 15:07 IMPRESSION: Chronic involutional changes of the brain. Electronically Signed: Artie Chester MD at 15:29 EDT , ADDENDUM: 09/21/24 1612 IMPRESSION: Chronic involutional changes of the brain. N.B. : The above Results were Read Back by Artie Chester MD to Dr Ling MD, and understanding confirmed on 09/21/2024 16:05:58 (ET). Electronically Signed: Artie Chester MD at 15:29 EDT , Assessment and Plan . Assessment and plan: Chart and data reviewed Condition d/w staff She continues to have intermittent severe abdominal pain - associated dyspnea/hypoxemia requiring NIV support Surgery opinion noted Plans for additional abdominal imaging noted Will check LFT in am IVF infusing - Na+ and creatinine elevated today We will follow intermittently and as needed.
[2024-09-22] VITALS (12 sets, daily range): BP systolic 128–151; BP diastolic 54–87; PULSE 50–64; RESP 16–32; TEMP 35.9–36.5; O2SAT 94–100; BMI 27.8
[2024-09-22] MEDS: Dext 5%-0.45% NS 1,000 ML 125 ML IV ×2 (03:15→11:21)
[2024-09-22 06:59] LABS: Absolute Lymphocyte Count 1.26 X10^3/uL (0.83-4.51); Basophil# 0.03 X10^3/uL; Basophil% 0.2 % (0-1); Eosinophil# 0.01 X10^3/uL; Eosinophils% 0.1 % (0-5); Hematocrit 30.6 % (37-47); Hemoglobin 9.5 g/dL (12.0-15.0); Lymphocyte # 1.26 X10^3/ul (0.83-4.51); Lymphocyte % 7.8 % (19-41); Mean Corpuscular Hgb 30.2 pg (27.0-32.0); Mean Corpuscular Volume 97.1 fL (81-99); Mean Platelet Vol. 10.4 fl (6.2-12.0); Monocyte# 0.77 X10^3/uL; Monocyte% 4.8 % (0-10); NRBC Flagged by Analyzer 0 % (0-5); Neutrophil # 14.01 X10^3/uL (2.7-7.7); Neutrophil % 86.4 % (47-70); Platelet Count 167 K/mm3 (150-450); RBC Distribution Width CV 15.7 % (11.6-14.6); RBC Distribution Width SD 55.9 fl (35.1-43.9); Red Blood Count 3.15 M/mm3 (4.2-5.4); White Blood Count 16.2 K/mm3 (4.4-11.0)
[2024-09-22 07:47] LABS: ALB/GLOB Ratio 0.8 RATIO (0.9-2.4); AST(SGOT) 11 U/L (15-37); Alanine Aminotransfer ALT/SGPT 19 U/L (13-56); Albumin, Serum 2.5 g/dL (3.2-5.0); Alkaline Phosphatase 70 U/L (45-117); Anion Gap 9 (5-15); BUN 65 mg/dL (7-18); BUN/Creat Ratio 45.5 RATIO (10-20); Calcium,Total 8.6 mg/dL (8.5-10.1); Chloride 116 mmol/L (98-107); Creatinine, Serum 1.43 mg/dL (0.55-1.02); EST Glomerular Filtration Rate 37 mL/min (>60); Est Glom Filt Rate - Afr Amer 45 mL/min (>60); Estimated Creatinine Clearance 29.29 ml/min; Glucose 173 mg/dL (74-106); Potassium 3.5 mmol/L (3.5-5.1); Protein, Total 5.5 g/dL (6.4-8.2); Sodium Level 148 mmol/L (136-145)
--- NOTE | 2024-09-22 08:51 | MRI_ITS ---
STUDY: MRI BRAIN WITHOUT CONTRAST REASON FOR EXAM: Female, 89 years old. expressive aphasia, lt facial droop TECHNIQUE: Standardized multiplanar fat and water weighted pulse sequences were obtained. COMPARISON: CT of the brain September 21, 2024 FINDINGS: Moderate atrophy and periventricular white matter ischemic changes.. There are tiny foci of restricted diffusion in the posterior left parietal lobe consistent with acute ischemic changes in the distribution of the left middle cerebral artery There is an old infarct in left frontal lobe. Normal bilateral basal ganglia. Normal thalami. There is no extra-axial fluid accumulation. Normal flow voids within the major intracranial circulation suggesting patency by spin echo criteria. 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 Normal tectal plate and pineal gland. Normal midbrain, tino and medulla. Minor chronic ischemic changes of the right cerebellar hemispheric. Normal basal cisterns. Normal bilateral temporal bones. Normal bilateral internal auditory canals. Postsurgical changes of the orbits. Normal visualized paranasal sinuses. Normal calvarium and skull base. Normal visualized soft tissue structures. Normal visualized upper cervical spine. MRI/Brain without Contrast IMPRESSION: Moderate atrophy and periventricular white matter ischemic changes with old left frontal lobe infarct.. Foci of acute ischemia in the left posterior parietal lobe Electronically Signed: Shar Smith MD at 16:07 EDT ,
--- NOTE | 2024-09-22 08:52 | MRI_ITS ---
We are attempting to reach an attending provider to discuss findings. An addendum with communication details will be sent when the communication is complete. STUDY: MRA NECK WITHOUT CONTRAST REASON FOR EXAM: Female, 89 years old. stroke like symptoms, aphasia, lt facial droop, best possible patient uncooperative TECHNIQUE: Source images were obtained, MIPs were performed. The study was performed unenhanced. COMPARISON: None. FINDINGS: RIGHT CAROTID ARTERIES: Normal right common carotid artery (CCA). Normal right common carotid bulb. Normal origin of the right internal carotid (ICA) artery without a hemodynamically significant stenosis. Normal visualized cervical portion of the right internal carotid artery. Normal origin of the right external carotid artery (ECA). LEFT CAROTID ARTERIES: Normal left common carotid artery (CCA). Normal left common carotid bulb. Normal origin of the left internal carotid (ICA) artery without a hemodynamically significant stenosis. Normal visualized cervical portion of the left internal carotid artery. Normal origin of the left external carotid artery (ECA). VERTEBRAL ARTERIES: Normal antegrade flow within the bilateral vertebral artery without a hemodynamically significant stenosis. MRI/MRA Neck without Contrast IMPRESSION: Normal bilateral cervical carotid and vertebral arteries. Electronically Signed: Shar Smith MD at 16:10 EDT ,
--- NOTE | 2024-09-22 08:52 | PN.SURG_ITS ---
Subjective Subjective Patient appears comfortable in bed. She does not appear short of breath. Objective Data Objective Data Vital Signs: Vital Signs Temp Pulse Resp BP Pulse Ox O2 Del Method O2 Flow Rate 97.4 F L 50 L 18 132/54 H 99 Room Air 2 09/22/24 05:26 09/22/24 05:26 09/22/24 05:51 09/22/24 05:26 09/22/24 05:51 09/22/24 05:53 09/22/24 05:26 FiO2 30 09/21/24 21:42 Oxygen Flow Rate (L/min) 2 Oxygen Delivery Method Room Air Weight: 172 lb 13.478 oz Body Mass Index (BMI) 27.8 Intake & Output: Intake and Output for Last 24 Hours 09/20/24 09/21/24 09/22/24 23:59 23:59 23:59 Intake Total 160 / 220 110 / 110 1050 / 1050 Output Total 1800 / 2100 600 / 900 300 / 300 Balance -1640 / -1880 -490 / -790 750 / 750 Lab / Micro Data 09/22/24 06:35 09/22/24 06:35 Labs: Laboratory Results - last 24 hr 09/21/24 14:48: POC Glucose 198 H 09/22/24 06:35: WBC 16.2 H, RBC 3.15 L, Hgb 9.5 L, Hct 30.6 L, MCV 97.1, MCH 30.2, MCHC 31.0 L, RDW Std Deviation 55.9 H, RDW Coeff of Taina 15.7 H, Plt Count 167, MPV 10.4, Immature Gran % (Auto) 0.700, Neut % (Auto) 86.4 H, Lymph % (Auto) 7.8 L, [place] % (Auto) 4.8, Eos % (Auto) 0.1, Baso % (Auto) 0.2, Absolute Neuts (auto) 14.0 H, Absolute Lymphs (auto) 1.26, Nucleated RBC % 0, Sodium 148 H, Potassium 3.5, Chloride 116 H, Carbon Dioxide 23.0, Anion Gap 9, BUN 65 H, C reatinine 1.43 H, Estim Creat Clear Calc 29.29, Est GFR (MDRD) Af Amer 45 L, Est GFR (MDRD) Non-Af 37 L, BUN/Creatinine Ratio 45.5 H, Glucose 173 H, Calcium 8.6, Total Bilirubin 0.30, AST 11 L, ALT 19, Alkaline Phosphatase 70, Total Protein 5.5 L, Albumin 2.5 L, Globulin 3.0, Albumin/Globulin Ratio 0.8 L Micro: Microbiology 09/18/24 09:20 Urine, Random Legionella Antigen - Final 09/18/24 09:20 Urine, Random Streptococcus pneumoniae Antigen (M - Final 09/17/24 17:32 Mucosa - Nasopharyngeal Respiratory Panel (PCR) - Final 09/17/24 11:24 Mucosa - Nasopharyngeal SARS-CoV-2, Influenza & RSV (PCR) - Final Radiography Diagnostic Testing: Radiology Impression Brain CT 09/21/24 15:07 IMPRESSION: Chronic involutional changes of the brain. Electronically Signed: Artie Chester MD at 15:29 EDT , ADDENDUM: 09/21/24 1612 IMPRESSION: Chronic involutional changes of the brain. N.B. : The above Results were Read Back by Artie Chester MD to Dr Ling MD, and understanding confirmed on 09/21/2024 16:05:58 (ET). Electronically Signed: Artie Chester MD at 15:29 EDT , Physical Exam Const oriented x3 and no apparent distress Resp normal respiratory effort GI soft to palpation and non-tender Assessment & Plan Assessment/Plan (1) History of partial colectomy: PLAN: Unsure as to why the patient is hypoxic. She has had a CTA of the chest which did not show other PEs and did not show a pneumonia. She says she is in pain with sitting up so I ordered some IV pain medication. Her white count is increasing and there is no etiology. UA was normal. CT of the abdomen pelvis was normal with no sign of infection or leak. Brian Calvin MD Pager: [facility] [address] [place] [address], [address] [place] [address] Office:
--- NOTE | 2024-09-22 08:52 | MRI_ITS ---
STUDY: MRA OF THE HEAD WITHOUT CONTRAST REASON FOR EXAM: Female, 89 years old. stroke like symptoms, aphasia, lt facial droop TECHNIQUE: 3-D [id number] (TOF) imaging was performed with MIPs. The study was performed unenhanced. COMPARISON: None. FINDINGS: Normal bilateral petrous carotid arteries. Normal right cavernous carotid artery with a normal supraclinoid bifurcation. Normal left cavernous carotid artery with a normal supraclinoid bifurcation. Normal right A1 segments of the anterior cerebral artery. Normal left A1 segments of the anterior cerebral artery. Anterior communicating artery not visualized consistent with normal variant Normal bilateral A2 segments of the anterior cerebral arteries. Normal right M1 and M2 segments of the middle cerebral arteries, with a normal M1 bifurcation. Normal left M1 and M2 segments of the middle cerebral arteries, with a normal M1 bifurcation. Posterior communicating arteries not visualized consistent with normal variant Normal bilateral vertebral arteries. Normal basilar artery with a normal basilar bifurcation. The visualized bilateral superior cerebellar (SCA) arteries are normal. Normal bilateral P1, P2 and visualized P3 segments of the posterior cerebral arteries. There is no demonstrated aneurysm of the [place] of [place]. There is no major vessel occlusion or hemodynamically significant stenosis. MRI/MRA Head ONLY without Contrast IMPRESSION: Normal MRA of the head Electronically Signed: Shar Smith MD at 16:09 EDT ,
[2024-09-22] MEDS: Losartan Potassium 100 MG Tablet PO (09:22)
[2024-09-22] MEDS: Isosorbide Mononitrate 60 MG Tablet PO (09:22)
[2024-09-22] MEDS: Tolterodine Tartrate 2 MG CAP.SA PO (09:22)
[2024-09-22] MEDS: amLODIPine 2.5 MG Tablet PO (09:23)
[2024-09-22] MEDS: Clopidogrel Bisulfate 75 MG Tablet PO (09:23)
[2024-09-22] MEDS: Cholecalciferol (VIT D3) 25 MCG TABLET (1,000 UNITS) 50 MCG PO (09:23)
[2024-09-22] MEDS: Fluticasone 0.05% 1 SPRAY NASAL.SRY 2 SPRAY NASAL (09:24)
[2024-09-22] MEDS: Menthol/Lanolin/Calamine/Znox 113 GM Tube 1 APPLIC TOPICAL ×2 (09:24→21:09)
[2024-09-22] MEDS: Nystatin Ointment 1 APPLIC TOPICAL ×2 (09:25→21:10)
[2024-09-22] MEDS: Pantoprazole Sodium 20 MG Tablet PO (09:26)
[2024-09-22] MEDS: Cefepime HCl 1 GM in 0.9% Normal Saline (50mL MB+) 50 ML IV ×2 (09:30→21:08)
--- NOTE | 2024-09-22 14:12 | PN_ITS ---
Subjective Subjective Patient seen and examiend this morning. She was alert and communicative. She had no active complaints. REview of systems is otherwise negative. Another attempt at barium swallow was done today. She became hypoxic again today and so the procedure could not be done. Review of systems is otherwise negative. Objective Data Objective Data Vital Signs: Vital Signs Temp Pulse Resp BP Pulse Ox O2 Del Method O2 Flow Rate 96.7 F L 62 20 H 151/87 H 100 Bi-pap 2 09/22/24 14:09/22/24 14:01 09/22/24 14:01 09/22/24 14:01 09/22/24 14:01 09/22/24 14:01 09/22/24 05:26 FiO2 100 09/22/24 14:01 Oxygen Flow Rate (L/min) 2 Oxygen Delivery Method Bi-pap Weight: 172 lb 13.478 oz Body Mass Index (BMI) 27.8 Intake & Output: Intake and Output for Last 24 Hours 09/20/24 09/21/24 09/22/24 23:59 23:59 23:59 Intake Total 160 / 220 110 / 110 2100 / 2100 Output Total 1800 / 2100 600 / 900 850 / 850 Balance -1640 / -1880 -490 / -790 1250 / 1250 Lab / Micro Data 09/22/24 06:35 09/22/24 06:35 Labs: Laboratory Results - last 24 hr 09/21/24 14:48: POC Glucose 198 H 09/22/24 06:35: WBC 16.2 H, RBC 3.15 L, Hgb 9.5 L, Hct 30.6 L, MCV 97.1, MCH 30.2, MCHC 31.0 L, RDW Std Deviation 55.9 H, RDW Coeff of Taina 15.7 H, Plt Count 167, MPV 10.4, Immature Gran % (Auto) 0.700, Neut % (Auto) 86.4 H, Lymph % (Auto) 7.8 L, [place] % (Auto) 4.8, Eos % (Auto) 0.1, Baso % (Auto) 0.2, Absolute Neuts (auto) 14.0 H, Absolute Lymphs (auto) 1.26, Nucleated RBC % 0, Sodium 148 H, Potassium 3.5, Chloride 116 H, Carbon Dioxide 23.0, Anion Gap 9, BUN 65 H, C reatinine 1.43 H, Estim Creat Clear Calc 29.29, Est GFR (MDRD) Af Amer 45 L, Est GFR (MDRD) Non-Af 37 L, BUN/Creatinine Ratio 45.5 H, Glucose 173 H, Calcium 8.6, Total Bilirubin 0.30, AST 11 L, ALT 19, Alkaline Phosphatase 70, Total Protein 5.5 L, Albumin 2.5 L, Globulin 3.0, Albumin/Globulin Ratio 0.8 L Micro: Microbiology 09/18/24 09:20 Urine, Random Legionella Antigen - Final 09/18/24 09:20 Urine, Random Streptococcus pneumoniae Antigen (M - Final 09/17/24 17:32 Mucosa - Nasopharyngeal Respiratory Panel (PCR) - Final 09/17/24 11:24 Mucosa - Nasopharyngeal SARS-CoV-2, Influenza & RSV (PCR) - Final Radiography Diagnostic Testing: Radiology Impression Brain CT 09/21/24 15:07 IMPRESSION: Chronic involutional changes of the brain. Electronically Signed: Artie Chester MD at 15:29 EDT , ADDENDUM: 09/21/24 1612 IMPRESSION: Chronic involutional changes of the brain. N.B. : The above Results were Read Back by Artie Chester MD to Dr Ling MD, and understanding confirmed on 09/21/2024 16:05:58 (ET). Electronically Signed: Artie Chester MD at 15:29 EDT , Physical Exam Const alert, oriented x3, no apparent distress and well nourished; Negative for average body habitus or healthy appearing Constitutional Narrative: On 2L of oxygen by nasal canula General Appearance: cooperative HEENT normocephalic, head/scalp atraumatic, moist oral mucous membranes and oropharynx normal; Negative for hearing grossly normal bilaterally Eyes PERRL and EOMs intact bilaterally Eyes Narrative: Conjunctiva are pale bilaterally, no scleral icterus Neck no lymphadenopathy and supple Lymph Lymphatic: no lymphadenopathy noted and no lymphedema noted Resp normal respiratory effort, normal air movement, no retractions, no use of accessory muscles and clear to auscultation bilaterally Resp Narrative: Diminished breath sounds bibasilarly. No wheezes or crackles. on 2L of oxygen by nasal canula this morning, but had to be put on BIPAP after attempt at modified barium swallow Auscultation: crackles; Negative for rhonchi or wheezes Cardio regular rate, regular rhythm, S1 normal heart sound and S2 normal heart sound Peripheral Pulses: pulses 2+ throughout GI normal to inspection, nondistended, normoactive bowel sounds and soft to palpation GI Narrative: area of surgical incision well healed, minimal tenderness, no guarding. mild generalised tenderness Extremity normal capillary refill, no clubbing, cyanosis or edema and no calf tenderness Extremity Narrative: Radial and pedal pulses are 2+ General Extremity: no tenderness to palpation of joints or extremities Skin skin turgor normal, no jaundice, no petechiae and no mottling General Skin Exam: no breakdown Neuro CN's II-XII intact bilaterally, moves all extremities and no focal motor deficits Neuro Narrative: Marked generalized weakness Sensorium / Orientation: awake, alert and oriented to person; Negative for oriented to place or oriented to time Speech: speech normal Motor Exam: strength 5/5 throughout and general weakness Psych thought process normal and cooperative Psych Narrative: Affect is slightly flat, eye contact is good, patient is pleasantly confused Assessment & Plan Assessment/Plan (1) History of partial colectomy: (2) History of GI bleed: PLAN: Plan # Acute hypoxic respiratory failure * concern for aspiration. * She recently did have a PE but due to GI bleed was not anticoagulated. She also Whitney filter in place * 2D echo ordered and pending. BNP was slightly elevated. She has been diuresed with IV Lasix 40 mg twice daily * Cardiology was consulted because her troponins trended upwards. Cardiology recommending conservative management thus for now. * Breathing treatments with bronchodilators. Titrate oxygen to maintain saturation above 90%. * CTA of the chest done showed chronic interstitial scarring bilaterally and mild groundglass edema present bilaterally with mild pleural thickening and scarring with no consolidation. Previously seen bilateral PE no longer present no evidence of arterial dissection. Redemonstration of mild subsegmental atelectasis right lower lobe * BNP was only 135.5. * Rapid response was called during this admission when she went in for the cookie swallow test. She required up to 15 L of oxygen but when she could back to the floor she was weaned onto her baseline 3 L of oxygen. 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 * Has intermittent shortness of breath especially when she tries to sit up and has abdominal pain and then requires BiPAP. * Now off BIPAP and down to 2L of oxygen. * on IV cefepime due to concern about pneumonia. COmpleted a 5 day course of antibiotics * Urine for strep and Legionella antigens are negative and respiratory panel also negative. * I did get a CT of the abdomen and pelvis which showed no acute pathology. * WBC has trended upwards today to 16. It is unclear why. She is on IV cefepime. General surgery did see him and did not think there was any acute pathology * CT of the chest was negative for PE and CT of the abdomen and pelvis also shows no acute pathology. Life Specialist on board and also does not seem to know exactly what is going on. * I did speak to patient's son Cuong Gayle today about the fact that she has been n.p.o. since she came in because she gets hypoxic when she sits up she has not been able to have the cookie swallow test. Speech therapy also does not feel comfortable putting patient on a diet when she desaturates to easily when sitting up. Advised patient's son Ignacio Gayle that the next option might be a PEG tube if they are willing to do this though this would not ameliorate the risk of aspiration. He wants to talk to his sister and get back to me about their wish. * I did discuss patient's hypoxia when she sits up with cardiology and per the discussion this is indicated of platypnea orthodeoxia. She did have a CTA on 09/17/2024 which showed no evidence of PE and showed that the previously noted bilateral peripheral emboli are no longer present. 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 Of note patient also had a strokelike symptoms yesterday and MRI of the brain did not show evidence of a stroke. This is likely due to the PFO as well. S * #Platypnea orthodeoxia * As above, likely due to the PFO and the atrial aneurysm. * Ideally patient will benefit from closure of the PFO. However she does have an IVC filter in place after she had bilateral PE in the setting of GI bleed during her recent admission. This will therefore make it difficult to close the PFO. She also has a stroke which may be due to the PFO. Will have an extensive discussion with family about goals of care * # Acute CVA * Stroke alert was called yesterday because she became aphasic. * CT of the brain showed no evidence of a stroke. [facility] neurology reviewed patient and did not think that she was a tPA candidate as she had had a GI bleed about 3 weeks ago. * MRI of the brain done today showed moderate atrophy and periventricular white matter changes with old left frontal lobe infarct and foci of acute ischemia in the left posterior parietal lobe * expressive aphasia has largely improved. * Already on Plavix, will continue. On high intensity statin also. * #Non-STEMI * troponins trended upwards. * 2D echo as above. On Plavix. * Cardiology on board. Recommends conservative management now she is high risk for any intervention. * Also on Imdur and atenolol as well as high intensity statin * #Hypokalemia: resolved. Potassium is 3.5. #Hypernatremia: * Sodium is slightly down to 148 today. * Hydrate with D5W and trend Cr as well as sodium * #KALLIE: * Creatinine is 1.43 today. Baseline is around 1. * Likely due to dehydration as she has not been eating and drinking. * Will hydrate with fluids as above and trend. 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 * surgical site well healed, but patient keeps complaining of abdominal pain * CT of the abdomen and pelvis showed no acute pathology * get general surgery evaluation * * #Recent bilateral PE * Was diagnosed with bilateral PE on 08/31/2024 during her previous admission. * She had IVC filter inserted as she could not be anticoagulated at that time due to GI bleed. 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 On meclizine #Benign essential hypertension: On amlodipine, atenolol and losartan #Hyperlipidemia: Statin #History of CVA: on plavix. 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 DVT prophylaxis: heparin drip dc'd. SCDs Code status:DNRCCA no intubation Disposition: Awaiting feedback from patient's children about whether they wanted to have a PEG tube inserted or not. Charges/Coding Visit Charges Inpatient E&M: 61787 Subs Hosp L3
--- NOTE | 2024-09-22 17:22 | PCM.PROGNOTE ---
Subjective Subjective I spoke to patient's daughter and his son-in-law in the room. I counseled them about the finding of PE for PFO and the atrial aneurysm which is likely the cause of her platypnea orthodeoxia. MRI is also positive for stroke which is likely due to the PFO. I counseled them that in light of the patient's tenuous status, it was unlikely that she would be able to have intervention at any tertiary facility. Family was initially asking for PEG tube but after being counseled that since his shortness of breath is worsened by sitting up, patient will likely be aspirating for PEG tube was putting and she was having tube feeds was lying recumbent. Family was then agreeable to hospice consult for evaluation. Will therefore consult hospice. Objective Data Objective Data Vital Signs: Vital Signs Temp Pulse Resp BP Pulse Ox O2 Del Method O2 Flow Rate 96.7 F L 64 28 H 151/87 H 100 Bi-pap 2 09/22/24 14:01 09/22/24 14:10 09/22/24 14:10 09/22/24 14:01 09/22/24 14:10 09/22/24 14:01 09/22/24 05:26 FiO2 100 09/22/24 14:10 Oxygen Flow Rate (L/min) 2 Oxygen Delivery Method Bi-pap Weight: 172 lb 13.478 oz Body Mass Index (BMI) 27.8 Intake & Output: Intake and Output for Last 24 Hours 09/20/24 09/21/24 09/22/24 23:59 23:59 23:59 Intake Total 160 / 220 110 / 110 2100 / 2100 Output Total 1800 / 2100 600 / 900 850 / 850 Balance -1640 / -1880 -490 / -790 1250 / 1250 Medical Nutrition Assessment Dietitian: Malnutrition Criteria Met Start: 09/22/24 15:30 Freq: Status: Active Protocol: Document 09/22/24 15:30 SB (Rec: 09/22/24 15:30 SB [id number]) Nutrition Malnutrition Evidence of Malnutrition Exists Yes Malnutrition (severe): Acute Illness/Injury Evidenced By Suboptimal Energy Intake ( Severe),Weight Loss (Severe) Clinical Problem Acute Disease or Injury Related Malnutrition Etiology severe related to inadequate oral intake and GI dysfunction Signs/Symptoms as evidenced by NPO status x 5 days and 4% unintentional weight loss x 1 week. Status Active Problem Swallowing Difficulty Etiology likely related to confusion and dysphagia Signs/Symptoms as evidenced by NPO status. Status Active Problem Recommendation Dietitian Recommendations/Changes Recommend nutrition support, if barium swallow cannot be completed and pt's family is agreeable. Will monitor weight, as available. Reviewed and approved by Susan Hall RD, LD. Lab / Micro Data 09/22/24 06:35 09/22/24 06:35 Labs: Laboratory Results - last 24 hr 09/21/24 14:48: POC Glucose 198 H 09/22/24 06:35: WBC 16.2 H, RBC 3.15 L, Hgb 9.5 L, Hct 30.6 L, MCV 97.1, MCH 30.2, MCHC 31.0 L, RDW Std Deviation 55.9 H, RDW Coeff of Taina 15.7 H, Plt Count 167, MPV 10.4, Immature Gran % (Auto) 0.700, Neut % (Auto) 86.4 H, Lymph % (Auto) 7.8 L, [place] % (Auto) 4.8, Eos % (Auto) 0.1, Baso % (Auto) 0.2, Absolute Neuts (auto) 14.0 H, Absolute Lymphs (auto) 1.26, Nucleated RBC % 0, Sodium 148 H, Potassium 3.5, Chloride 116 H, Carbon Dioxide 23.0, Anion Gap 9, BUN 65 H, Creatinine 1.43 H, Estim Creat Clear Calc 29.29, Est GFR (MDRD) Af Amer 45 L, Est GFR (MDRD) Non-Af 37 L, BUN/Creatinine Ratio 45.5 H, Glucose 173 H, Calcium 8.6, Total Bilirubin 0.30, AST 11 L, ALT 19, Alkaline Phosphatase 70, Total Protein 5.5 L, Albumin 2.5 L, Globulin 3.0, Albumin/Globulin Ratio 0.8 L Micro: Microbiology 09/18/24 09:20 Urine, Random Legionella Antigen - Final 09/18/24 09:20 Urine, Random Streptococcus pneumoniae Antigen (M - Final 09/17/24 17:32 Mucosa - Nasopharyngeal Respiratory Panel (PCR) - Final 09/17/24 11:24 Mucosa - Nasopharyngeal SARS-CoV-2, Influenza & RSV (PCR) - Final Radiography Diagnostic Testing: Radiology Impression Brain MRI 09/22/24 08:51 IMPRESSION: Moderate atrophy and periventricular white matter ischemic changes with old left frontal lobe infarct.. Foci of acute ischemia in the left posterior parietal lobe Electronically Signed: Shar Smith MD at 16:07 EDT , Head MRA 09/22/24 08:52 IMPRESSION: Normal MRA of the head Electronically Signed: Shar Smith MD at 16:09 EDT , Neck MRA 09/22/24 08:52 IMPRESSION: Normal bilateral cervical carotid and vertebral arteries. Electronically Signed: Shar Smith MD at 16:10 EDT , ADDENDUM: 09/22/24 1636 IMPRESSION: Normal bilateral cervical carotid and vertebral arteries. N.B. : The above Results were Read Back by Shar Smith MD to Ya Larson RN, and understanding confirmed on 09/22/2024 16:29:51 (ET). Electronically Signed: Shar Smith MD at 16:10 EDT , Charges/Coding Visit Charges Inpatient E&M: 26192 PROLNG IP/OBS E/M EA 15 MIN
[2024-09-22] MEDS: Atorvastatin Calcium 10 MG Tablet PO ×3 (21:08→21:10)
[2024-09-22] MEDS: Dextrose 5%-Water (1000mL Bag) 1,000 ML 125 ML IV (22:59)
[2024-09-23] VITALS (7 sets, daily range): BP systolic 98–152; BP diastolic 52–90; PULSE 54–73; RESP 18–21; TEMP 36.1–36.6; O2SAT 96–100; BMI 27.8
[2024-09-23 07:06] LABS: Absolute Lymphocyte Count 1.49 X10^3/uL (0.83-4.51); Absolute Neutrophil Count 7.1 X10^3/uL (2.0-7.7); Eosinophil# 0.15 X10^3/uL; Eosinophils% 1.6 % (0-5); Hematocrit 27.5 % (37-47); Hemoglobin 8.5 g/dL (12.0-15.0); Lymphocyte # 1.49 X10^3/ul (0.83-4.51); Lymphocyte % 16.1 % (19-41); Mean Corp Hgb Conc 30.9 g/dL (32-36); Mean Corpuscular Volume 97.2 fL (81-99); Mean Platelet Vol. 10.5 fl (6.2-12.0); Monocyte# 0.52 X10^3/uL; Monocyte% 5.6 % (0-10); NRBC Flagged by Analyzer 0 % (0-5); Neutrophil # 7.07 X10^3/uL (2.7-7.7); Neutrophil % 76.2 % (47-70); Platelet Count 151 K/mm3 (150-450); RBC Distribution Width CV 15.2 % (11.6-14.6); RBC Distribution Width SD 54.9 fl (35.1-43.9); Red Blood Count 2.83 M/mm3 (4.2-5.4); White Blood Count 9.3 K/mm3 (4.4-11.0)
[2024-09-23 07:37] LABS: Anion Gap 3 (5-15); BUN 38 mg/dL (7-18); BUN/Creat Ratio 39.7 RATIO (10-20); Calcium,Total 8.7 mg/dL (8.5-10.1); Chloride 114 mmol/L (98-107); Creatinine, Serum 0.96 mg/dL (0.55-1.02); EST Glomerular Filtration Rate 59 mL/min (>60); Est Glom Filt Rate - Afr Amer 71 mL/min (>60); Estimated Creatinine Clearance 43.63 ml/min; Glucose 140 mg/dL (74-106); Potassium 2.7 mmol/L (3.5-5.1); Sodium Level 145 mmol/L (136-145)
[2024-09-23] MEDS: Dextrose 5%-Water (1000mL Bag) 1,000 ML 125 ML IV (07:57)
[2024-09-23] MEDS: Menthol/Lanolin/Calamine/Znox 113 GM Tube 1 APPLIC TOPICAL ×2 (07:58→19:41)
[2024-09-23] MEDS: Fluticasone 0.05% 1 SPRAY NASAL.SRY 2 SPRAY NASAL (07:59)
[2024-09-23] MEDS: Potassium Chloride 10mEq/100mL 10 MEQ/100 ML IV.SOLN. 100 MEQ IV BOLUS ×3 (09:06→12:11)
--- NOTE | 2024-09-23 09:13 | PN_ITS ---
Subjective Subjective Patient seen and examined. She had no active complaints and was lying calmly in bed, on room air. Review of systems is otherwise negative.Potassium is 2.7. Objective Data Objective Data Vital Signs: Vital Signs Temp Pulse Resp BP Pulse Ox O2 Del Method O2 Flow Rate 97.6 F L 54 L 18 120/90 H 100 Room Air 2 09/23/24 09:00 09/23/24 09:00 09/23/24 09:00 09/23/24 09:00 09/23/24 09:00 09/23/24 09:00 09/23/24 08:45 FiO2 100 09/22/24 14:10 Oxygen Flow Rate (L/min) 2 Oxygen Delivery Method Room Air Weight: 172 lb 13.478 oz Body Mass Index (BMI) 27.8 Intake & Output: Intake and Output for Last 24 Hours 09/21/24 09/22/24 09/23/24 23:59 23:59 23:59 Intake Total 110 / 110 3150 / 3150 1000 / 1000 Output Total 600 / 900 850 / 1250 450 / 450 Balance -490 / -790 2300 / 1900 550 / 550 Medical Nutrition Assessment Dietitian: Malnutrition Criteria Met Start: 09/22/24 15:30 Freq: Status: Active Protocol: Document 09/22/24 15:30 SB (Rec: 09/22/24 15:30 SB [id number]) Nutrition Malnutrition Evidence of Malnutrition Exists Yes Malnutrition (severe): Acute Illness/Injury Evidenced By Suboptimal Energy Intake ( Severe),Weight Loss (Severe) Clinical Problem Acute Disease or Injury Related Malnutrition Etiology severe related to inadequate oral intake and GI dysfunction Signs/Symptoms as evidenced by NPO status x 5 days and 4% unintentional weight loss x 1 week. Status Active Problem Swallowing Difficulty Etiology likely related to confusion and dysphagia Signs/Symptoms as evidenced by NPO status. Status Active Problem Recommendation Dietitian Recommendations/Changes Recommend nutrition support, if barium swallow cannot be completed and pt's family is agreeable. Will monitor weight, as available. Reviewed and approved by Susan Hall RD, LD. Lab / Micro Data 09/23/24 06:53 09/23/24 06:53 Labs: Laboratory Results - last 24 hr 09/23/24 06:53: WBC 9.3, RBC 2.83 L, Hgb 8.5 L, Hct 27.5 L, MCV 97.2, MCH 30.0, MCHC 30.9 L, RDW Std Deviation 54.9 H, RDW Coeff of Taina 15.2 H, Plt Count 151, MPV 10.5, Immature Gran % (Auto) 0.500, Neut % (Auto) 76.2 H, Lymph % (Auto) 16.1 L, [place] % (Auto) 5.6, Eos % (Auto) 1.6, Baso % (Auto) 0.0, Absolute Neuts (auto) 7.1, Absolute Lymphs (auto) 1.49, Nucleated RBC % 0, Sodium 145, P otassium 2.7 L*, Chloride 114 H, Carbon Dioxide 29.0, Anion Gap 3 L, BUN 38 H, Creatinine 0.96, Estim Creat Clear Calc 43.63, Est GFR (MDRD) Af Amer 71, Est GFR (MDRD) Non-Af 59 L, BUN/Creatinine Ratio 39.7 H, Glucose 140 H, Calcium 8.7 Micro: Microbiology 09/18/24 09:20 Urine, Random Legionella Antigen - Final 09/18/24 09:20 Urine, Random Streptococcus pneumoniae Antigen (M - Final 09/17/24 17:32 Mucosa - Nasopharyngeal Respiratory Panel (PCR) - Final 09/17/24 11:24 Mucosa - Nasopharyngeal SARS-CoV-2, Influenza & RSV (PCR) - Final Radiography Diagnostic Testing: Radiology Impression Brain MRI 09/22/24 08:51 IMPRESSION: Moderate atrophy and periventricular white matter ischemic changes with old left frontal lobe infarct.. Foci of acute ischemia in the left posterior parietal lobe Electronically Signed: Shar Smith MD at 16:07 EDT Reading Location ID and State: [facility] / [place] Tel [phone], Service support , Head MRA 09/22/24 08:52 IMPRESSION: Normal MRA of the head Electronically Signed: Shar Smith MD at 16:09 EDT , Neck MRA 09/22/24 08:52 IMPRESSION: Normal bilateral cervical carotid and vertebral arteries. Electronically Signed: Shar Smith MD at 16:10 EDT , ADDENDUM: 09/22/24 1636 IMPRESSION: Normal bilateral cervical carotid and vertebral arteries. N.B. : The above Results were Read Back by Shar Smith MD to Ya Larson RN, and understanding confirmed on 09/22/2024 16:29:51 (ET). Electronically Signed: Shar Smith MD at 16:10 EDT , Physical Exam Const alert, oriented x3 and no apparent distress; Negative for average body habitus or healthy appearing Constitutional Narrative: on room air. General Appearance: cooperative HEENT normocephalic, head/scalp atraumatic and oropharynx normal; Negative for hearing grossly normal bilaterally Mouth: dry mucous membranes Eyes PERRL and EOMs intact bilaterally Neck no lymphadenopathy and supple Lymph Lymphatic: no lymphadenopathy noted and no lymphedema noted Resp Resp Narrative: Diminished breath sounds bibasilarly. No wheezes or crackles.On room air. Auscultation: crackles; Negative for rhonchi or wheezes Cardio regular rate, regular rhythm, S1 normal heart sound, S2 normal heart sound, no murmurs, no rub, no gallops and no clicks Peripheral Pulses: pulses 2+ throughout GI normal to inspection, nondistended, normoactive bowel sounds and soft to palpation GI Narrative: area of surgical incision well healed, minimal tenderness, no guarding. mild generalised tenderness Extremity normal capillary refill, no clubbing, cyanosis or edema and no calf tenderness General Extremity: no tenderness to palpation of joints or extremities Skin No no rashes or lesions noted, No no wounds, skin turgor normal, no jaundice, no petechiae and no mottling Skin Narrative: P General Skin Exam: no breakdown Neuro CN's II-XII intact bilaterally, moves all extremities and no focal motor deficits Neuro Narrative: Marked generalized weakness Sensorium / Orientation: awake, alert and oriented to person; Negative for oriented to place or oriented to time Speech: speech normal Motor Exam: strength 5/5 throughout and general weakness Psych thought process normal and cooperative Psych Narrative: Affect is slightly flat, eye contact is good Appearance: appropriate Assessment & Plan Assessment/Plan (1) History of partial colectomy: (2) History of GI bleed: PLAN: Plan # Acute hypoxic respiratory failure * concern for aspiration. * She recently did have a PE but due to GI bleed was not anticoagulated. She also [place] filter in place * She has been diuresed with IV Lasix 40 mg twice daily * Cardiology was consulted because her troponins trended upwards. Cardiology recommending conservative management thus for now. * Breathing treatments with bronchodilators. Titrate oxygen to maintain saturation above 90%. * CTA of the chest done showed chronic interstitial scarring bilaterally and mild groundglass edema present bilaterally with mild pleural thickening and scarring with no consolidation. Previously seen bilateral PE no longer present no evidence of arterial dissection. Redemonstration of mild subsegmental atelectasis right lower lobe * BNP was only 135.5. * Rapid response was called during this admission when she went in for the cookie swallow test. She required up to 15 L of oxygen but when she could back to the floor she was weaned onto her baseline 3 L of oxygen. 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 * completed a 5 day course of IV cefepime for presumptive aspiration pneumonia * Urine for strep and Legionella antigens are negative and respiratory panel also negative. * I did get a CT of the abdomen and pelvis which showed no acute pathology. * CT of the chest was negative for PE and CT of the abdomen and pelvis also shows no acute pathology. Make Up Arranger on board * I did speak to patient's son Cuong Gayle today about the fact that she has been n.p.o. since she came in because she gets hypoxic when she sits up she has not been able to have the cookie swallow test. Speech therapy also does not feel comfortable putting patient on a diet when she desaturates to easily when sitting up. Advised patient's son Ignacio Gayle that the next option might be a PEG tube if they are willing to do this though this would not ameliorate the risk of aspiration. He wants to talk to his sister and get back to me about their wish. * I did discuss patient's hypoxia when she sits up with cardiology and per the discussion this is indicated of platypnea orthodeoxia. She did have a CTA on 09/17/2024 which showed no evidence of PE and showed that the previously noted bilateral peripheral emboli are no longer present. 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 Of note patient also had a strokelike symptoms yesterday and MRI of the brain did not show evidence of a stroke. This is likely due to the PFO as well. S * #Platypnea orthodeoxia * As above, likely due to the PFO and the atrial aneurysm. * Ideally patient will benefit from closure of the PFO. However she does have an IVC filter in place after she had bilateral PE in the setting of GI bleed during her recent admission. This will therefore make it difficult to close the PFO. She also has a stroke which may be due to the PFO. * family opted for hospice consult to discuss goals of care due to her weakness and frailty * # Acute CVA * Stroke alert was called because she became aphasic. * CT of the brain showed no evidence of a stroke. [facility] neurology reviewed patient and did not think that she was a tPA candidate as she had had a GI bleed about 3 weeks ago. * MRI of the brain done today showed moderate atrophy and periventricular white matter changes with old left frontal lobe infarct and foci of acute ischemia in the left posterior parietal lobe * expressive aphasia has largely improved. * Already on Plavix, will continue. On high intensity statin also. * consult [facility] neurology * #Non-STEMI * 2D echo as above. On Plavix. * Cardiology on board. Recommends conservative management now she is high risk for any intervention. * Also on Imdur and atenolol as well as high intensity statin * #Hypokalemia: potassium is 2.7 today. Will replace aggressively and trend. #Hypernatremia: * sodium is down to 145 today. * Hydrate with D5W and trend sodium * #KALLIE: * resolved. Cr is 0.96 today. 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 * surgical site well healed, but patient keeps complaining of abdominal pain * CT of the abdomen and pelvis showed no acute pathology * general surgery consulted and did not think patient had any acute pathology * * #Recent bilateral PE * Was diagnosed with bilateral PE on 08/31/2024 during her previous admission. * She had IVC filter inserted as she could not be anticoagulated at that time due to GI bleed. 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 On meclizine #Benign essential hypertension: On amlodipine, atenolol and losartan #Hyperlipidemia: Statin #History of CVA: on plavix. 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 DVT prophylaxis: heparin drip dc'd. SCDs Code status:DNRCCA no intubation Disposition: Family opted for hsopice consult afger being counseled about the platypnea-orthodeoxia patient has having. Hospice will meed with patient and family at 5pm today. Charges/Coding Visit Charges Inpatient E&M: 81843 Subs Hosp L3
[2024-09-23] MEDS: amLODIPine 2.5 MG Tablet PO (09:18)
[2024-09-23] MEDS: Pantoprazole Sodium 20 MG Tablet PO (09:18)
[2024-09-23] MEDS: Clopidogrel Bisulfate 75 MG Tablet PO (09:18)
[2024-09-23] MEDS: Cholecalciferol (VIT D3) 25 MCG TABLET (1,000 UNITS) 50 MCG PO (09:18)
[2024-09-23] MEDS: Tolterodine Tartrate 2 MG CAP.SA PO (09:18)
[2024-09-23] MEDS: Losartan Potassium 100 MG Tablet PO (09:18)
[2024-09-23] MEDS: Nystatin Ointment 1 APPLIC TOPICAL ×2 (09:19→19:42)
[2024-09-23] MEDS: Isosorbide Mononitrate 60 MG Tablet PO (09:19)
--- NOTE | 2024-09-23 09:19 | CASEMGMT ---
Physician notified SW that a Hospice consult was put in the computer yesterday evening. SW checked with battery charger conveyor line and she was not aware of a referral being made yet. VICKY called patient's son Cuong and explained how the process normally works. Cuong verbalized understanding. VICKY called Hospice and spoke with Bela regarding referral. VICKY also faxed referral information. VICKY received a return call from Bela right away stating that a referral was made last night and they will be meeting with the family at 5p today. VICKY also called patient's son and he is aware of this meeting and forgot to mention it to SW on earlier phone call. VICKY updated RN, battery charger conveyor line and physician. Plan: Meet with Hospice today (09-23-24) at 5p Melisa OLMSTEAD
--- NOTE | 2024-09-23 09:31 | PN.SURG_ITS ---
Subjective Subjective Planning for meeting with hospice today. White blood count is down to 9.3 Objective Data Objective Data Vital Signs: Vital Signs Temp Pulse Resp BP Pulse Ox O2 Del Method O2 Flow Rate 97.6 F L 54 L 18 120/90 H 100 Room Air 2 09/23/24 09:00 09/23/24 09:00 09/23/24 09:00 09/23/24 09:00 09/23/24 09:00 09/23/24 09:00 09/23/24 08:45 FiO2 100 09/22/24 14:10 Oxygen Flow Rate (L/min) 2 Oxygen Delivery Method Room Air Weight: 172 lb 13.478 oz Body Mass Index (BMI) 27.8 Intake & Output: Intake and Output for Last 24 Hours 09/21/24 09/22/24 09/23/24 23:59 23:59 23:59 Intake Total 110 / 110 3150 / 3150 1000 / 1000 Output Total 600 / 900 850 / 1250 450 / 450 Balance -490 / -790 2300 / 1900 550 / 550 Medical Nutrition Assessment Dietitian: Malnutrition Criteria Met Start: 09/22/24 15:30 Freq: Status: Active Protocol: Document 09/22/24 15:30 SB (Rec: 09/22/24 15:30 SB [id number]) Nutrition Malnutrition Evidence of Malnutrition Exists Yes Malnutrition (severe): Acute Illness/Injury Evidenced By Suboptimal Energy Intake ( Severe),Weight Loss (Severe) Clinical Problem Acute Disease or Injury Related Malnutrition Etiology severe related to inadequate oral intake and GI dysfunction Signs/Symptoms as evidenced by NPO status x 5 days and 4% unintentional weight loss x 1 week. Status Active Problem Swallowing Difficulty Etiology likely related to confusion and dysphagia Signs/Symptoms as evidenced by NPO status. Status Active Problem Recommendation Dietitian Recommendations/Changes Recommend nutrition support, if barium swallow cannot be completed and pt's family is agreeable. Will monitor weight, as available. Reviewed and approved by Susan Hall RD, LD. Lab / Micro Data 09/23/24 06:53 09/23/24 06:53 Labs: Laboratory Results - last 24 hr 09/23/24 06:53: WBC 9.3, RBC 2.83 L, Hgb 8.5 L, Hct 27.5 L, MCV 97.2, MCH 30.0, MCHC 30.9 L, RDW Std Deviation 54.9 H, RDW Coeff of Taina 15.2 H, Plt Count 151, MPV 10.5, Immature Gran % (Auto) 0.500, Neut % (Auto) 76.2 H, Lymph % (Auto) 16.1 L, [place] % (Auto) 5.6, Eos % (Auto) 1.6, Baso % (Auto) 0.0, Absolute Neuts (auto) 7.1, Absolute Lymphs (auto) 1.49, Nucleated RBC % 0, Sodium 145, P otassium 2.7 L*, Chloride 114 H, Carbon Dioxide 29.0, Anion Gap 3 L, BUN 38 H, Creatinine 0.96, Estim Creat Clear Calc 43.63, Est GFR (MDRD) Af Amer 71, Est GFR (MDRD) Non-Af 59 L, BUN/Creatinine Ratio 39.7 H, Glucose 140 H, Calcium 8.7 Micro: Microbiology 09/18/24 09:20 Urine, Random Legionella Antigen - Final 09/18/24 09:20 Urine, Random Streptococcus pneumoniae Antigen (M - Final 09/17/24 17:32 Mucosa - Nasopharyngeal Respiratory Panel (PCR) - Final 09/17/24 11:24 Mucosa - Nasopharyngeal SARS-CoV-2, Influenza & RSV (PCR) - Final Radiography Diagnostic Testing: Radiology Impression Brain MRI 09/22/24 08:51 IMPRESSION: Moderate atrophy and periventricular white matter ischemic changes with old left frontal lobe infarct.. Foci of acute ischemia in the left posterior parietal lobe Electronically Signed: Shar Smith MD at 16:07 EDT Reading Location ID and State: [facility] / [place] Tel [phone], Service support , Head MRA 09/22/24 08:52 IMPRESSION: Normal MRA of the head Electronically Signed: Shar Smith MD at 16:09 EDT , Neck MRA 09/22/24 08:52 IMPRESSION: Normal bilateral cervical carotid and vertebral arteries. Electronically Signed: Shar Smith MD at 16:10 EDT , ADDENDUM: 09/22/24 1636 IMPRESSION: Normal bilateral cervical carotid and vertebral arteries. N.B. : The above Results were Read Back by Shar Smith MD to Ya Larson RN, and understanding confirmed on 09/22/2024 16:29:51 (ET). Electronically Signed: Shar Smith MD at 16:10 EDT , Physical Exam Const no apparent distress GI soft to palpation and non-tender GI Narrative: Incision healing well with Steri-Strips in place Inspection: Negative for abdominal distention Assessment & Plan Assessment/Plan (1) History of partial colectomy: PLAN: Patient and family will have a meeting with hospice later today. Due to the hypoxia related to the PFO. No concerns from a surgery standpoint with incision etc. Marisol Peraza M.D. Pager: [phone] [facility] [address] [place] [address], [facility], [address] [place] [id number] Office: [phone]
[2024-09-23] MEDS: Cefepime HCl 1 GM in 0.9% Normal Saline (50mL MB+) 50 ML IV (10:29)
[2024-09-23] MEDS: Potassium Chloride Oral Tablet 20 MEQ 40 MEQ PO (14:29)
[2024-09-24] VITALS (7 sets, daily range): BP systolic 120–146; BP diastolic 57–98; PULSE 63–74; RESP 18–25; TEMP 36.2–36.7; O2SAT 96–100
[2024-09-24 05:46] LABS: Absolute Lymphocyte Count 1.34 X10^3/uL (0.83-4.51); Absolute Neutrophil Count 5.7 X10^3/uL (2.0-7.7); Basophil# 0.01 X10^3/uL; Basophil% 0.1 % (0-1); Eosinophil# 0.24 X10^3/uL; Eosinophils% 3.1 % (0-5); Hematocrit 26.7 % (37-47); Hemoglobin 8.5 g/dL (12.0-15.0); Lymphocyte # 1.34 X10^3/ul (0.83-4.51); Lymphocyte % 17.4 % (19-41); Mean Corp Hgb Conc 31.8 g/dL (32-36); Mean Corpuscular Hgb 30.4 pg (27.0-32.0); Mean Corpuscular Volume 95.4 fL (81-99); Mean Platelet Vol. 10.5 fl (6.2-12.0); Monocyte# 0.37 X10^3/uL; Monocyte% 4.8 % (0-10); NRBC Flagged by Analyzer 0 % (0-5); Neutrophil # 5.68 X10^3/uL (2.7-7.7); Neutrophil % 73.8 % (47-70); Platelet Count 151 K/mm3 (150-450); RBC Distribution Width SD 52.5 fl (35.1-43.9); White Blood Count 7.7 K/mm3 (4.4-11.0)
[2024-09-24 06:12] LABS: Anion Gap 3 (5-15); BUN 25 mg/dL (7-18); BUN/Creat Ratio 34.6 RATIO (10-20); Calcium,Total 8.8 mg/dL (8.5-10.1); Chloride 119 mmol/L (98-107); Creatinine, Serum 0.72 mg/dL (0.55-1.02); EST Glomerular Filtration Rate 81 mL/min (>60); Est Glom Filt Rate - Afr Amer 98 mL/min (>60); Estimated Creatinine Clearance 52.35 ml/min; Glucose 93 mg/dL (74-106); Potassium 3.6 mmol/L (3.5-5.1); Sodium Level 147 mmol/L (136-145)
[2024-09-24] MEDS: Menthol/Lanolin/Calamine/Znox 113 GM Tube 1 APPLIC TOPICAL (09:49)
[2024-09-24] MEDS: Cholecalciferol (VIT D3) 25 MCG TABLET (1,000 UNITS) 50 MCG PO (09:50)
[2024-09-24] MEDS: Tolterodine Tartrate 2 MG CAP.SA PO (09:50)
[2024-09-24] MEDS: Fluticasone 0.05% 1 SPRAY NASAL.SRY 2 SPRAY NASAL (09:50)
[2024-09-24] MEDS: amLODIPine 2.5 MG Tablet PO (09:51)
[2024-09-24] MEDS: Pantoprazole Sodium 20 MG Tablet PO (09:51)
[2024-09-24] MEDS: Isosorbide Mononitrate 60 MG Tablet PO (09:51)
[2024-09-24] MEDS: Clopidogrel Bisulfate 75 MG Tablet PO (09:51)
[2024-09-24] MEDS: Losartan Potassium 100 MG Tablet PO (09:51)
[2024-09-24] MEDS: Nystatin Ointment 1 APPLIC TOPICAL (09:53)
--- NOTE | 2024-09-24 10:17 | PN_ITS ---
Subjective Subjective Patient seen and examined today. She had no complaints. She was hemodynamically stable. Patient and family met with hospice yesterday. Family with a few days to think about hospice before making a decision. Objective Data Objective Data Vital Signs: Vital Signs Temp Pulse Resp BP Pulse Ox O2 Del Method O2 Flow Rate 98.1 F 63 20 H 146/62 H 100 Room Air 2 09/24/24 08:00 09/24/24 08:00 09/24/24 08:00 09/24/24 08:00 09/24/24 08:00 09/24/24 08:00 09/23/24 08:45 FiO2 100 09/22/24 14:10 Oxygen Flow Rate (L/min) 2 Oxygen Delivery Method Room Air Weight: 172 lb 13.478 oz Body Mass Index (BMI) 27.8 Intake & Output: Intake and Output for Last 24 Hours 09/22/24 09/23/24 09/24/24 23:59 23:59 22:59 Intake Total 3150 / 3150 2082.92 / 2082.92 Output Total 850 / 1250 1100 / 1100 300 / 300 Balance 2300 / 1900 982.92 / 982.92 -300 / -300 Medical Nutrition Assessment Dietitian: Malnutrition Criteria Met Start: 09/22/24 15:30 Freq: Status: Active Protocol: Document 09/22/24 15:30 SB (Rec: 09/22/24 15:30 SB [id number]) Nutrition Malnutrition Evidence of Malnutrition Exists Yes Malnutrition (severe): Acute Illness/Injury Evidenced By Suboptimal Energy Intake ( Severe),Weight Loss (Severe) Clinical Problem Acute Disease or Injury Related Malnutrition Etiology severe related to inadequate oral intake and GI dysfunction Signs/Symptoms as evidenced by NPO status x 5 days and 4% unintentional weight loss x 1 week. Status Active Problem Swallowing Difficulty Etiology likely related to confusion and dysphagia Signs/Symptoms as evidenced by NPO status. Status Active Problem Recommendation Dietitian Recommendations/Changes Recommend nutrition support, if barium swallow cannot be completed and pt's family is agreeable. Will monitor weight, as available. Reviewed and approved by Susan Hall RD, LD. Lab / Micro Data 09/24/24 05:20 09/24/24 05:20 Labs: Laboratory Results - last 24 hr 09/24/24 05:20: WBC 7.7, RBC 2.80 L, Hgb 8.5 L, Hct 26.7 L, MCV 95.4, MCH 30.4, MCHC 31.8 L, RDW Std Deviation 52.5 H, RDW Coeff of [place]aina 15.0 H, Plt Count 151, MPV 10.5, Immature Gran % (Auto) 0.800, Neut % (Auto) 73.8 H, Lymph % (Auto) 17.4 L, [place] % (Auto) 4.8, Eos % (Auto) 3.1, Baso % (Auto) 0.1, Absolute Neuts (auto) 5.7, Absolute Lymphs (auto) 1.34, Nucleated RBC % 0, Sodium 147 H, Potassium 3.6, Chloride 119 H, Carbon Dioxide 24.0, Anion Gap 3 L, BUN 25 H, Creatinine 0.72, Estim Creat Clear Calc 52.35, Est GFR (MDRD) Af Amer 98, Est GFR (MDRD) Non-Af 81, BUN/Creatinine Ratio 34.6 H, Glucose 93, Calcium 8.8 Micro: Microbiology 09/18/24 09:20 Urine, Random Legionella Antigen - Final 09/18/24 09:20 Urine, Random Streptococcus pneumoniae Antigen (M - Final 09/17/24 17:32 Mucosa - Nasopharyngeal Respiratory Panel (PCR) - Final 09/17/24 11:24 Mucosa - Nasopharyngeal SARS-CoV-2, Influenza & RSV (PCR) - Final Physical Exam Const alert, oriented x3, no apparent distress and well nourished; Negative for average body habitus or healthy appearing Constitutional Narrative: on room air. General Appearance: cooperative HEENT normocephalic, head/scalp atraumatic, moist oral mucous membranes and oropharynx normal; Negative for hearing grossly normal bilaterally Eyes PERRL and EOMs intact bilaterally Eyes Narrative: Conjunctiva are pale bilaterally, no scleral icterus Neck no lymphadenopathy and supple Neck Narrative: Lymph Lymphatic: no lymphadenopathy noted and no lymphedema noted Resp normal respiratory effort, normal air movement and no retractions Resp Narrative: Diminished breath sounds bibasilarly. No wheezes or crackles.On room air. Auscultation: crackles Cardio regular rate, regular rhythm, S1 normal heart sound, S2 normal heart sound, no murmurs, no rub, no gallops and no clicks Peripheral Pulses: pulses 2+ throughout GI normal to inspection, nondistended, normoactive bowel sounds GI Narrative: area of surgical incision well healed, minimal tenderness, no guarding. mild generalised tenderness Extremity normal capillary refill, no clubbing, cyanosis or edema and no calf tenderness Extremity Narrative: Radial and pedal pulses are 2+ General Extremity: no tenderness to palpation of joints or extremities Skin skin turgor normal, no jaundice, no petechiae and no mottling General Skin Exam: no breakdown Neuro CN's II-XII intact bilaterally, moves all extremities and no focal motor deficits Neuro Narrative: Marked generalized weakness Sensorium / Orientation: awake and alert Speech: speech normal Motor Exam: strength 5/5 throughout and general weakness Psych thought process normal and cooperative Appearance: appropriate Assessment & Plan Assessment/Plan (1) History of partial colectomy: (2) History of GI bleed: PLAN: Plan # Acute hypoxic respiratory failure * now on room air. * concern for aspiration. * She recently did have a PE but due to GI bleed was not anticoagulated. She also [place] filter in place * She has been diuresed with IV Lasix 40 mg twice daily * Cardiology was consulted because her troponins trended upwards. Cardiology recommending conservative management thus for now. * Breathing treatments with bronchodilators. Titrate oxygen to maintain saturation above 90%. * CTA of the chest done showed chronic interstitial scarring bilaterally and mild groundglass edema present bilaterally with mild pleural thickening and scarring with no consolidation. Previously seen bilateral PE no longer present no evidence of arterial dissection. Redemonstration of mild subsegmental atelectasis right lower lobe * BNP was only 135.5. * Rapid response was called during this admission when she went in for the cookie swallow test. She required up to 15 L of oxygen but when she could back to the floor she was weaned onto her baseline 3 L of oxygen. 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 * completed a 5 day course of IV cefepime for presumptive aspiration pneumonia * Urine for strep and Legionella antigens are negative and respiratory panel also negative. * I did get a CT of the abdomen and pelvis which showed no acute pathology. * CT of the chest was negative for PE and CT of the abdomen and pelvis also shows no acute pathology. Hoisting Engine Operator on board * I did speak to patient's son Cuong Gayle today about the fact that she has been n.p.o. since she came in because she gets hypoxic when she sits up she has not been able to have the cookie swallow test. Speech therapy also does not feel comfortable putting patient on a diet when she desaturates to easily when sitting up. Advised patient's son Ignacio Gayle that the next option might be a PEG tube if they are willing to do this though this would not ameliorate the risk of aspiration. He wants to talk to his sister and get back to me about their wish. * I did discuss patient's hypoxia when she sits up with cardiology and per the discussion this is indicated of platypnea orthodeoxia. She did have a CTA on 09/17/2024 which showed no evidence of PE and showed that the previously noted bilateral peripheral emboli are no longer present. 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 Of note patient also had a strokelike symptoms also during this admission and MRI of the brain did not show evidence of a stroke. This is likely due to the PFO as well. S * #Platypnea orthodeoxia * As above, likely due to the PFO and the atrial aneurysm. * Ideally patient will benefit from closure of the PFO. However she does have an IVC filter in place after she had bilateral PE in the setting of GI bleed during her recent admission. This will therefore make it difficult to close the PFO. She also has a stroke which may be due to the PFO. * family met with hospice and want a few more days to make up her mind * # Acute CVA * Stroke alert was called because she became aphasic. * CT of the brain showed no evidence of a stroke. [facility] neurology reviewed patient and did not think that she was a tPA candidate as she had had a GI bleed about 3 weeks ago. * MRI of the brain done today showed moderate atrophy and periventricular white matter changes with old left frontal lobe infarct and foci of acute ischemia in the left posterior parietal lobe * expressive aphasia has largely improved. * Already on Plavix, will continue. On high intensity statin also. * neurology consulted; await recs * #Non-STEMI * 2D echo as above. On Plavix. * Cardiology on board. Recommends conservative management now she is high risk for any intervention. * Also on Imdur and atenolol as well as high intensity statin * #Hypokalemia:resolved. K is 3.6 today. #Hypernatremia: * Na today is 147. Continue gentle hydration with D5W. * Hydrate with D5W and trend sodium * #Nutrition: * patient still NPO. Patient's family wants a few days to make might be in the cause of her breathing issues is the platypnea orthodeoxia, * I think it is reasonable to attempt to feed the patient. Will enter a acardiac pureed diet and see how patient does. #KALLIE: * resolved. Cr is 0.96 today. 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 * surgical site well healed, but patient keeps complaining of abdominal pain * CT of the abdomen and pelvis showed no acute pathology * general surgery consulted and did not think patient had any acute pathology * * #Recent bilateral PE * Was diagnosed with bilateral PE on 08/31/2024 during her previous admission. * She had IVC filter inserted as she could not be anticoagulated at that time due to GI bleed. 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 On meclizine #Benign essential hypertension: On amlodipine, atenolol and losartan #Hyperlipidemia: Statin #History of CVA: on plavix. 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 DVT prophylaxis: heparin drip dc'd. SCDs Code status:DNRCCA no intubation Disposition: hospice met with patient nad family, and they want a few days to decide about opting for hospice. Charges/Coding Visit Charges Inpatient E&M: 87454 Subs Hosp L2
[2024-09-24] MEDS: Dextrose 5%-Water (1000mL Bag) 1,000 ML 75 ML IV (13:18)
--- NOTE | 2024-09-24 20:19 | PN.NEURO_ITS ---
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 Cardiology consulted for NSTEMI but no intervention offered due to poor baseline. Was becoming hypoxic each time attempted to elevated HOB per nursing. LKW at 1330 when patient was being transferred she developed dysarthria, L facial droop, and aphasia. Currently on plavix, no AC. At baseline, she is not able to ambulate independently due to deconditioning from prolonged hospitalization. Getting treated for aspiration PNA. MRI brain - shows small left parietal stroke. MRA head and neck-no LVO. Today, she reports feeling better. NIHSS-0. Diagnosis: Left parietal stroke, cryptogenic Plan: Continue plavix and statin. Event monitor on discharge. 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 DVT prophylaxis. Sign off for now. Please call us for any questions. Of note, I have been informed by Dr. Dubon that she has decided to go for hospice. I personally attended this patient and spent a total time of 35 minutes evaluating this patient including clinical assessment, review of chart, medical history imaging, and determining appropriate treatment and workup. Subject: Neurology Subjective This AM, patient reports feeling better with NIHSS-0 NIHSS NIHSS Nursing Documentation NIHSS Nursing Documentation: NIHSS: Ischemic Stroke/TIA Start: 09/21/24 17:27 Freq: Q4H Status: Active Protocol: Activity Type Activity Date Activity User E-sign Co-sign Detail Recorded Client Recorded Date Recorded By Document 09/24/24 20:00 MG [id number] 09/24/24 20:01 MG 09/24/24 20:00 NIH Stroke Scale [NIHSS] A score of 0 is normal or asymptomatic . Total possible score is 42. Inpatient: RN or Physician to activate a stroke alert for onset of new stroke symptoms or with NIHSS increase >/= 3 points. Following change in neurological status, NIHSS will be performed per physician order or more frequently PRN. -1a. Level of Consciousness Alert; keenly responsive -1b. LOC Questions Answers one question correctly. -1c. LOC Commands Performs both tasks correctly . -2. Best Gaze Normal -3. Visual No visual loss -4. Facial Palsy Normal symmetrical movements -5a. Left Arm No drift; arm holds 90 (or 45 ) degrees for full 10 seconds -5b. Right Arm No drift; arm holds 90 (or 45 ) degrees for full 10 seconds -6a. Left Leg No drift; leg holds 30-degree position for full 5 seconds -6b. Right Leg No drift; leg holds 30-degree position for full 5 seconds -7. Limb Ataxia Absent -8. Sensory Normal; no sensory loss -9. Best Language Mild-to- moderate aphasia; -10. Dysarthria Mild-to- moderate dysarthria; -11. Extinction and Inattention No abnormality -Total 3 Query Text:A score of 0 is normal or asymptomatic. Total possible score is 42 . ED: Notify Physician for NIHSS increase by > / = 3 points. Inpatient: RN or Physician to activate a stroke alert for NIHSS increase of > / = 3 points. Coma Scale [Assess] -Eye Opening Spontaneous -Motor Obeys Commands -Verbal Confused [Total] -Coma Scale Total 14 NIHSS 1a. Level of Consciousness: Alert; keenly responsive 1b. LOC Questions: Answers BOTH questions correctly. 1c. LOC Commands: Performs both tasks correctly. 2. Best Gaze: Normal 3. Visual: No visual loss 4. Facial Palsy: Normal symmetrical movements 5a. Left Arm: No drift; arm holds 90 (or 45) degrees for full 10 seconds 5b. Right Arm: No drift; arm holds 90 (or 45) degrees for full 10 seconds 6a. Left Leg: No drift; leg holds 30-degree position for full 5 seconds 6b. Right Leg: No drift; leg holds 30-degree position for full 5 seconds 7. Limb Ataxia: Absent 8. Sensory: Normal; no sensory loss 9. Best Language: No aphasia; normal 10. Dysarthria: Normal 11. Extinction and Inattention: No abnormality Total: 0 EEG Results Procedure Details EEG Procedure Details: CARMEN LAND is a 89 year old F with a past medical history of , who presents for evaluation of Electroencephalogram on DATE at TIME Objective Data Objective Data Vital Signs: Vital Signs Temp Pulse Resp BP Pulse Ox O2 Del Method O2 Flow Rate 97.8 F 69 25 H 132/57 H 100 Room Air 2 09/24/24 20:00 09/24/24 20:00 09/24/24 20:00 09/24/24 20:00 09/24/24 20:00 09/24/24 20:00 09/23/24 08:45 FiO2 100 09/22/24 14:10 Oxygen Flow Rate (L/min) 2 Oxygen Delivery Method Room Air Weight: 78.4 kg Body Mass Index (BMI) 27.8 Intake & Output: Intake and Output for Last 24 Hours 09/22/24 09/23/24 09/24/24 23:59 23:59 22:59 Intake Total 3150 / 3150 2082.92 / 2082.92 480 / 480 Output Total 850 / 1250 1100 / 1100 700 / 700 Balance 2300 / 1900 982.92 / 982.92 -220 / -220 Medical Nutrition Assessment Dietitian: Malnutrition Criteria Met Start: 09/22/24 15:30 Freq: Status: Active Protocol: Document 09/22/24 15:30 SB (Rec: 09/22/24 15:30 SB [id number]) Nutrition Malnutrition Evidence of Malnutrition Exists Yes Malnutrition (severe): Acute Illness/Injury Evidenced By Suboptimal Energy Intake ( Severe),Weight Loss (Severe) Clinical Problem Acute Disease or Injury Related Malnutrition Etiology severe related to inadequate oral intake and GI dysfunction Signs/Symptoms as evidenced by NPO status x 5 days and 4% unintentional weight loss x 1 week. Status Active Problem Swallowing Difficulty Etiology likely related to confusion and dysphagia Signs/Symptoms as evidenced by NPO status. Status Active Problem Recommendation Dietitian Recommendations/Changes Recommend nutrition support, if barium swallow cannot be completed and pt's family is agreeable. Will monitor weight, as available. Reviewed and approved by Susan Hall RD, LD. Lab / Micro Data 09/24/24 05:20 09/24/24 05:20 Labs: Laboratory Results - last 24 hr 09/24/24 05:20: WBC 7.7, RBC 2.80 L, Hgb 8.5 L, Hct 26.7 L, MCV 95.4, MCH 30.4, MCHC 31.8 L, RDW Std Deviation 52.5 H, RDW Coeff of [place]ain[place] 15.0 H, Plt Count 151, MPV 10.5, Immature Gran % (Auto) 0.800, Neut % (Auto) 73.8 H, Lymph % (Auto) 17.4 L, [place] % (Auto) 4.8, Eos % (Auto) 3.1, Baso % (Auto) 0.1, Absolute Neuts (auto) 5.7, Absolute Lymphs (auto) 1.34, Nucleated RBC % 0, Sodium 147 H, Potassium 3.6, Chloride 119 H, Carbon Dioxide 24.0, Anion Gap 3 L, BUN 25 H, Creatinine 0.72, Estim Creat Clear Calc 52.35, Est GFR (MDRD) Af Amer 98, Est GFR (MDRD) Non-Af 81, BUN/Creatinine Ratio 34.6 H, Glucose 93, Calcium 8.8 Micro: Microbiology 09/18/24 09:20 Urine, Random Legionella Antigen - Final 09/18/24 09:20 Urine, Random Streptococcus pneumoniae Antigen (M - Final 09/17/24 17:32 Mucosa - Nasopharyngeal Respiratory Panel (PCR) - Final 09/17/24 11:24 Mucosa - Nasopharyngeal SARS-CoV-2, Influenza & RSV (PCR) - Final Physical Exam Narrative General: The patient appears nutritionally appropriate, well-groomed, and appears comfortable in no acute distress. Mental Status:? The patient?s mental status was normal including orientation.? Language was intact.? Cranial nerves:? Visual shi full, and extra-ocular motion was intact. Face motion symmetric.? There was no dysarthria. Motor: Normal strength and tone in all four extremities. No pronator drift. Sensation: Intact light touch bilaterally, no extinction.? Coordination:? Bilateral finger to nose was normal.? There was no dysmetria. Gait:? deferred
--- NOTE | 2024-09-24 20:54 | NURSING ---
Report given to Joleen ALEXANDRA from [facility] at 2054. Cardiac tele removed and midline left in place. All belongings sent with patient. [facility] ambulance transported patient. Richard Thomas RN
--- NOTE | 2024-09-24 21:02 | NURSING ---
Addendum entered by Tomeka Frederick 09/24/24 21:06: Pt departed at 2052. Original Note: Pt son Cuong and daughter Nikia updated at this time that pt was being transported to [facility] and had just departed from [facility]. Cuong voiced understanding. Denies additional questions at this time.
--- NOTE | 2024-09-25 08:06 | DS.PCM_ITS ---
Providers Date of Admission: 09/17/24 Date of Discharge: 09/24/24 Primary Care Physician: Dr. Linn Will MD Consultations 09/17/24 14:01 Consult: Cardiology Routine Consulting Provider: Luis Miguel Machado Reason for Consult: elevated troponin EMERGENT Consult: No Notified: Yes Date Notified: 09/17/24 Time Notified: 13:14 Method of Notification: Text 09/19/24 11:45 Consult: [place] / Pulmonary Medicine Routine Consulting Provider: Intensivists/Pulmonary Med Reason for Consult: acute hypoxic respiratory failure, desats to 70s, unclear etiology EMERGENT Consult: No MD Notified: Yes Date Notified: 09/19/24 Time Notified: 11:54 Method of Notification: Text 09/21/24 15:15 Consult: General Surgery Routine Consulting Provider: Frederick Macario Reason for Consult: abdominal pain with associated hypoxia; recent hemicolectomy EMERGENT Consult: No MD Notified: Yes Date Notified: 09/21/24 Time Notified: 15:15 Method of Notification: Verbal 09/22/24 17:21 Consult: Hospice / Palliative Care Routine Consulting Provider: [facility] Reason for Consult: Respiratory Failure EMERGENT Consult: No Notified: Yes Date Notified: 09/22/24 Time Notified: 17:21 Method of Notification: Answering Service 09/23/24 09:25 Neurology [Consult: Tele-Neurology] Routine Consulting Provider: [facility] Reason for Consult: acute cva EMERGENT Consult: No MD Notified: Yes Date Notified: 09/23/24 Time Notified: 09:55 Method of Notification: Answering Service Nursing Unit Staff Notify [facility] of Tele-Neurology Consult: Yes Reason For Visit: HYPOXIA/ELEVATED TROPONIN Diagnosis Discharge Diagnosis (1) History of partial colectomy: Status: Acute Code(s): Z90.49 - Acquired absence of other specified parts of digestive tract (2) History of GI bleed: Status: Acute Code(s): Z87.19 - Personal history of other diseases of the digestive system (3) Platypnea-orthodeoxia syndrome: Status: Acute Code(s): R06.09 - Other forms of dyspnea Plan # Acute hypoxic respiratory failure * now on room air. * concern for aspiration. * She recently did have a PE but due to GI bleed was not anticoagulated. She also [place] filter in place * She has been diuresed with IV Lasix 40 mg twice daily * Cardiology was consulted because her troponins trended upwards. Cardiology recommending conservative management thus for now. * Breathing treatments with bronchodilators. Titrate oxygen to maintain saturation above 90%. * CTA of the chest done showed chronic interstitial scarring bilaterally and mild groundglass edema present bilaterally with mild pleural thickening and scarring with no consolidation. Previously seen bilateral PE no longer present no evidence of arterial dissection. Redemonstration of mild subsegmental atelectasis right lower lobe * BNP was only 135.5. * Rapid response was called during this admission when she went in for the cookie swallow test. She required up to 15 L of oxygen but when she could back to the floor she was weaned onto her baseline 3 L of oxygen. 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 * completed a 5 day course of IV cefepime for presumptive aspiration pneumonia * Urine for strep and Legionella antigens are negative and respiratory panel also negative. * I did get a CT of the abdomen and pelvis which showed no acute pathology. * CT of the chest was negative for PE and CT of the abdomen and pelvis also shows no acute pathology. [place] Laborer on board * I did speak to patient's son Cuong Gayle today about the fact that she has been n.p.o. since she came in because she gets hypoxic when she sits up she has not been able to have the cookie swallow test. Speech therapy also does not feel comfortable putting patient on a diet when she desaturates to easily when sitting up. Advised patient's son Ignacio Gayle that the next option might be a PEG tube if they are willing to do this though this would not ameliorate the risk of aspiration. He wants to talk to his sister and get back to me about their wish. * I did discuss patient's hypoxia when she sits up with cardiology and per the discussion this is indicated of platypnea orthodeoxia. She did have a CTA on 09/17/2024 which showed no evidence of PE and showed that the previously noted bilateral peripheral emboli are no longer present. 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 Of note patient also had a strokelike symptoms also during this admission and MRI of the brain did not show evidence of a stroke. This is likely due to the PFO as well. S * #Platypnea orthodeoxia * As above, likely due to the PFO and the atrial aneurysm. * Ideally patient will benefit from closure of the PFO. However she does have
--- NOTE | 2024-09-25 08:06 | PCM.DC.SUM ---
Providers Date of Admission: 09/17/24 Date of Discharge: 09/24/24 Primary Care Physician: Dr. Linn Will MD Consultations 09/17/24 14:01 Consult: Cardiology Routine Consulting Provider: Luis Miguel Machado Reason for Consult: elevated troponin EMERGENT Consult: No Notified: Yes Date Notified: 09/17/24 Time Notified: 13:14 Method of Notification: Text 09/19/24 11:45 Consult: Mail Superintendent / Pulmonary Medicine Routine Consulting Provider: Intensivists/Pulmonary Med Reason for Consult: acute hypoxic respiratory failure, desats to 70s, unclear etiology EMERGENT Consult: No MD Notified: Yes Date Notified: 09/19/24 Time Notified: 11:54 Method of Notification: Text 09/21/24 15:15 Consult: General Surgery Routine Consulting Provider: Frederick Macario Reason for Consult: abdominal pain with associated hypoxia; recent hemicolectomy EMERGENT Consult: No MD Notified: Yes Date Notified: 09/21/24 Time Notified: 15:15 Method of Notification: Verbal 09/22/24 17:21 Consult: Hospice / Palliative Care Routine Consulting Provider: [facility] Reason for Consult: Respiratory Failure EMERGENT Consult: No Notified: Yes Date Notified: 09/22/24 Time Notified: 17:21 Method of Notification: Answering Service 09/23/24 09:25 Neurology [Consult: Tele-Neurology] Routine Consulting Provider: [facility] Reason for Consult: acute cva EMERGENT Consult: No Notified: Yes Date Notified: 09/23/24 Time Notified: 09:55 Method of Notification: Answering Service Nursing Unit Staff Notify [facility] of Tele-Neurology Consult: Yes Reason For Visit: HYPOXIA/ELEVATED TROPONIN Diagnosis Discharge Diagnosis (1) History of partial colectomy: Status: Acute Code(s): Z90.49 - Acquired absence of other specified parts of digestive tract (2) History of GI bleed: Status: Acute Code(s): Z87.19 - Personal history of other diseases of the digestive system (3) Platypnea-orthodeoxia syndrome: Status: Acute Code(s): R06.09 - Other forms of dyspnea Plan # Acute hypoxic respiratory failure now on room air. concern for aspiration. She recently did have a PE but due to GI bleed was not anticoagulated. She also [place] filter in place She has been diuresed with IV Lasix 40 mg twice daily Cardiology was consulted because her troponins trended upwards. Cardiology recommending conservative management thus for now. Breathing treatments with bronchodilators. Titrate oxygen to maintain saturation above 90%. CTA of the chest done showed chronic interstitial scarring bilaterally and mild groundglass edema present bilaterally with mild pleural thickening and scarring with no consolidation. Previously seen bilateral PE no longer present no evidence of arterial dissection. Redemonstration of mild subsegmental atelectasis right lower lobe BNP was only 135.5. Rapid response was called during this admission when she went in for the cookie swallow test. She required up to 15 L of oxygen but when she could back to the floor she was weaned onto her baseline 3 L of oxygen. 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 completed a 5 day course of IV cefepime for presumptive aspiration pneumonia Urine for strep and Legionella antigens are negative and respiratory panel also negative. I did get a CT of the abdomen and pelvis which showed no acute pathology. CT of the chest was negative for PE and CT of the abdomen and pelvis also shows no acute pathology. Diplomatic Interpreter on board I did speak to patient's son Cuong Gayle today about the fact that she has been n.p.o. since she came in because she gets hypoxic when she sits up she has not been able to have the cookie swallow test. Speech therapy also does not feel comfortable putting patient on a diet when she desaturates to easily when sitting up. Advised patient's son Ignacio Gayle that the next option might be a PEG tube if they are willing to do this though this would not ameliorate the risk of aspiration. He wants to talk to his sister and get back to me about their wish. I did discuss patient's hypoxia when she sits up with cardiology and per the discussion this is indicated of platypnea orthodeoxia. She did have a CTA on 09/17/2024 which showed no evidence of PE and showed that the previously noted bilateral peripheral emboli are no longer present. 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 Of note patient also had a strokelike symptoms also during this admission and MRI of the brain did not show evidence of a stroke. This is likely due to the PFO as well. S #Platypnea orthodeoxia As above, likely due to the PFO and the atrial aneurysm. Ideally patient will benefit from closure of the PFO. However she does have an IVC filter in place after she had bilateral PE in the setting of GI bleed during her recent admission. This will therefore make it difficult to close the PFO. She also has a stroke which may be due to the PFO. family met with hospice and want a few more days to make up her mind # Acute CVA Stroke alert was called because she became aphasic. CT of the brain showed no evidence of a stroke. [facility] neurology reviewed patient and did not think that she was a tPA candidate as she had had a GI bleed about 3 weeks ago. MRI of the brain done today showed moderate atrophy and periventricular white matter changes with old left frontal lobe infarct and foci of acute ischemia in the left posterior parietal lobe expressive aphasia has largely improved. Already on Plavix, will continue. On high intensity statin also. neurology consulted; await recs #Non-STEMI 2D echo as above. On Plavix. Cardiology on board. Recommends conservative management now she is high risk for any intervention. Also on Imdur and atenolol as well as high intensity statin #Hypokalemia:resolved. K is 3.6 today. #Hypernatremia: Na today is 147. Continue gentle hydration with D5W. Hydrate with D5W and trend sodium #Nutrition: patient still NPO. Patient's family wants a few days to make might be in the cause of her breathing issues is the platypnea orthodeoxia, I think it is reasonable to attempt to feed the patient. Will enter a acardiac pureed diet and see how patient does. #KALLIE: resolved. Cr is 0.96 today. 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 surgical site well healed, but patient keeps complaining of abdominal pain CT of the abdomen and pelvis showed no acute pathology general surgery consulted and did not think patient had any acute pathology #Recent bilateral PE Was diagnosed with bilateral PE on 08/31/2024 during her previous admission. She had IVC filter inserted as she could not be anticoagulated at that time due to GI bleed. 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 On meclizine #Benign essential hypertension: On amlodipine, atenolol and losartan #Hyperlipidemia: Statin #History of CVA: on plavix. 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 DVT prophylaxis: heparin drip dc'd. SCDs Code status:DNRCCA no intubation Disposition: hospice met with patient nad family, and they want a few days to decide about opting for hospice. Medications at Discharge Home Medications atenolol 50 mg tablet 50 mg PO DAILY blood pressure 01/31/19 atorvastatin 10 mg tablet 10 mg PO DAILY cholesterol 01/31/19 clopidogrel 75 mg tablet 75 mg PO DAILY heart health 01/31/19 loratadine 10 mg tablet 10 mg PO DAILY allergies 01/31/19 omeprazole 20 mg capsule,delayed release 20 mg PO DAILY GERD 01/31/19 potassium chloride 20 mEq tablet,extended release(part/cryst) 20 meq PO BID supplement 09/01/19 albuterol sulfate 90 mcg/actuation aerosol inhaler 2 puff IH Q4H PRN PRN Wheezing 06/13/20 cholecalciferol (vitamin D3) 25 mcg (1,000 unit) tablet 2,000 unit PO DAILY supplement 06/13/20 melatonin 5 mg tablet 5 mg PO QHS PRN Sleep 09/10/21 meclizine 25 mg tablet 25 mg PO TID PRN dizziness #30 tabs 09/11/21 furosemide 40 mg tablet 80 mg PO DAILY CHF 12/01/21 nitroglycerin 0.4 mg sublingual tablet 0.4 mg sublingual Q5-15M PRN chest pain #25 tabs 12/01/21 amlodipine 2.5 mg tablet 2.5 mg PO DAILY blood pressure 01/25/22 fluticasone 250 mcg-salmeterol 50 mcg/dose blistr powdr for inhalation 1 inh inhalation BID breathing 01/25/22 losartan 100 mg tablet See Rx Instructions .Route .COMPLEX blood pressure #28 tabs 04/13/23 fluticasone propionate 50 mcg/actuation nasal spray,suspension 2 spray intranasal DAILY allergies 08/31/24 isosorbide mononitrate 60 mg tablet,extended release 24 hr 60 mg PO DAILY heart 08/31/24 loperamide 2 mg capsule (Anti-Diarrheal (loperamide)) 2 mg PO Q6H PRN loose stool 08/31/24 oxybutynin chloride 10 mg tablet,extended release 24 hr 10 mg PO DAILY bladder 08/31/24 nystatin 100,000 unit/gram topical cream 1 applic topical BID redness #30 grams 09/15/24 Hospital Course Operations None Procedures 2-D Echocardiogram Summary of Care Provided Minutes Spent on Discharge: 65 Hospital Course: Patient is an 89-year-old female with an extensive past medical history as outlined was admitted through the ED from the transitional care unit on 09/17/2024 with a complaint of hypoxia. She had just been discharged to the transitional care unit 2 days prior from [facility] for an extended hospitalization which she came in with GI bleed and was found to have a right colonic mass consistent with villous adenoma and hospital course was further complicated by COVID and PE. She had a [place] filter placed by vascular surgery on 08/31/2024 and subsequently had a superimposed bacterial pneumonia so surgical intervention was ultimately performed on 09/11/2024. She was discharged to the transitional care unit but was brought in on account of confusion and shortness of breath. She was post to be wearing CPAP at night but had not been wearing it. She was found to be saturating in the 70s. She was admitted and managed for hypoxia with concerns for fluid overload and possible infection. Her troponins were also elevated so she was managed for non-STEMI. CTA of the chest done was negative for any evidence of PE. She was started on diuresis with IV Lasix. Cardiology was consulted on account of the non-STEMI. BNP was not elevated and was only 135.5. Cardiology recommended conservative management. 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 She was placed on CPAP. Cardiology recommended conservative management as she was high risk for any intervention. She was placed on IV antibiotics due to concerns for pneumonia. Speech therapy was consulted for modified barium swallow. Patient was however noted to have significant orthopnea with sitting up and was eventually diagnosed with platypnea orthodeoxia which was thought to be due to the patent foramen ovale and aneurysmal atrial septum. Hospital course was complicated by patient having sudden onset weakness in the left lower extremity. CT of the brain was negative for stroke. She was not deemed a tPA candidate due to history of GI bleed. MRI done eventually did confirm a focus of acute ischemia in the left posterior parietal lobe. She had had expressive aphasia but this subsequently resolved. She was on Plavix but this was continued. She could not complete the barium swallow or any swallowing takes due to the profound platypnea orthodeoxia. Family was counseled that this was likely due to the PFO as stated above but patient would be a poor surgical candidate and poor candidate for any type of intervention. Family was agreeable to hospice consult. Hospice was consulted and patient was discharged to hospice medical facility on 09/24/2024. Patient was seen and examined on the day of discharge. She had no active complaints and had an uneventful night. He felt much better. Review of symptoms otherwise negative. Labs and vitals reviewed. Home medication reviewed and reconciled. Physical Exam Const alert, oriented x3, no apparent distress and well nourished; Negative for average body habitus or healthy appearing Constitutional Narrative: on room air. General Appearance: cooperative and comfortable Exam Limitations: no limitations HEENT normocephalic, head/scalp atraumatic, moist oral mucous membranes and oropharynx normal; Negative for hearing grossly normal bilaterally Eyes PERRL and EOMs intact bilaterally Eyes Narrative: Conjunctiva are pale bilaterally, no scleral icterus Neck no lymphadenopathy and supple Neck Narrative: Lymph Lymphatic: no lymphadenopathy noted and no lymphedema noted Resp normal respiratory effort, normal air movement, no retractions, no use of accessory muscles and clear to auscultation bilaterally Resp Narrative: Diminished breath sounds bibasilarly. No wheezes or crackles.On room air. Auscultation: crackles; Negative for rhonchi or wheezes Cardio regular rate, regular rhythm, S1 normal heart sound, S2 normal heart sound, no murmurs, no rub, no gallops and no clicks Peripheral Pulses: pulses 2+ throughout GI normal to inspection, nondistended, normoactive bowel sounds, soft to palpation, non-tender and non-distended GI Narrative: area of surgical incision well healed, minimal tenderness, no guarding. mild generalised tenderness Extremity normal capillary refill, no clubbing, cyanosis or edema and no calf tenderness Extremity Narrative: Radial and pedal pulses are 2+ General Extremity: no tenderness to palpation of joints or extremities Skin No no rashes or lesions noted, No no wounds, skin turgor normal, no jaundice, no petechiae and no mottling Skin Narrative: P General Skin Exam: no breakdown Neuro CN's II-XII intact bilaterally, moves all extremities and no focal motor deficits Neuro Narrative: Marked generalized weakness Sensorium / Orientation: awake, alert and oriented to person; Negative for oriented to place or oriented to time Speech: speech normal Motor Exam: strength 5/5 throughout and general weakness Psych thought process normal and cooperative Appearance: appropriate Weight / BMI Weight Weight: 172 lb 13.478 oz Body Mass Index (BMI) 27.8 ABG / Lab / Microbiology Data 09/24/24 05:20 09/24/24 05:20 Microbiology: Microbiology 09/18/24 09:20 Urine, Random Legionella Antigen - Final 09/18/24 09:20 Urine, Random Streptococcus pneumoniae Antigen (M - Final 09/17/24 17:32 Mucosa - Nasopharyngeal Respiratory Panel (PCR) - Final 09/17/24 11:24 Mucosa - Nasopharyngeal SARS-CoV-2, Influenza & RSV (PCR) - Final D/C Instructions Discharge Diet: Low fat / Low cholesterol Discharge Activity: Return to Normal Activity Weight Bearing Status: Weight bearing as tolerated Meaningful Use Info Meaningful Use Meaningful Use Diagnoses (Choose all that apply): None applicable Ischemic Stroke Statin Dosing Therapy Reference: STATIN DOSE THERAPY REFERENCE: * Patients > 75 years receive moderate or high dose statin therapy. * Patients 75 years or YOUNGER should receive HIGH intensity statin dose unless contraindicated. You will be required to document reason for non-treatment if statin daily dose does not meet guidelines. HIGH DOSE STATIN THERAPY DAILY Atorvastatin > than or = to 40 mg Rosuvastatin > than or = to 20 mg Amlodipine + Atorvastatin > than or = to 2.5/40 mg Ezetimibe + Simvastatin 10/80 mg Simvastatin 80mg Discharge Plan Admission Admit Date/Time: 09/17/24 13:11 Primary Reason for Your Visit: acute hypoxia Attending Provider: Katy Dubon Primary Care Provider: Linn Will Consulting Providers: Luis Miguel Machado; Mayra Obando; Frederick Macario; Evan Gerardo; Laurie Morales; Nadira Rodriguez; Eve Van; Gavi Tong [employer]; Priya Dockery; Sampson Xavier; Karson Simon; Claudia Young; Danika Senior; Su Cabezas; Fuad Chowdhury; Chayo Still; Mode Barroso; Inderjit Looney; Eren Jeronimo; Varsha Cody; Fredi Nuñez; Liudmila Lomeli; Magdalene Trinidad; Pipojuaquin Diaz; Tal Levine; Juno Marcus; Chris Welsh; Lianet Obando; Azra Bo Discharge Orders/Prescriptions Prescriptions: No Action furosemide 40 mg tablet 80 mg PO DAILY nitroglycerin 0.4 mg tablet, sublingual 0.4 mg SUBLINGUAL Q5-15M PRN (Reason: chest pain) Qty: 25 3RF atorvastatin 10 MG tablet 10 mg PO DAILY clopidogrel 75 MG tablet 75 mg PO DAILY omeprazole 20 MG capsule 20 mg PO DAILY atenolol 50 MG tablet 50 mg PO DAILY loratadine 10 MG tablet 10 mg PO DAILY potassium chloride 20 mEq tablet,ER particles/crystals 20 meq PO BID albuterol sulfate 90 mcg/actuation HFA aerosol inhaler 2 puff IH Q4H PRN PRN (Reason: Wheezing) cholecalciferol (vitamin D3) 1,000 UNIT tablet 2,000 unit PO DAILY melatonin 5 mg Tablet 5 mg PO QHS PRN (Reason: Sleep) meclizine 25 mg tablet 25 mg PO TID PRN (Reason: dizziness) Qty: 30 1RF fluticasone propion-salmeterol 250-50 mcg/dose Blister With Device 1 inh INHALATION BID amlodipine 2.5 mg Tablet 2.5 mg PO DAILY loperamide [Anti-Diarrheal (loperamide)] 2 mg capsule 2 mg PO Q6H PRN (Reason: loose stool) fluticasone propionate 50 mcg/actuation spray,suspension 2 spray INTRANASAL DAILY Rx Instructions: rinse mouth after use oxybutynin chloride 10 mg tablet extended release 24hr 10 mg PO DAILY isosorbide mononitrate 60 mg tablet extended release 24 hr 60 mg PO DAILY Rx Instructions: daily nystatin 100,000 unit/gram cream 1 applic topical BID Qty: 30 0RF losartan 100 mg tablet See Rx Instructions .ROUTE .COMPLEX Qty: 28 12RF Dose Instruction: TAKE 1 TABLET BY MOUTH DAILY FOR BLOOD PRESSURE Rx Instructions: TAKE 1 TABLET BY MOUTH DAILY FOR BLOOD PRESSURE Referrals / Follow Up: Linn Will MD [Primary Care Provider] - Disposition Disposition (needs filled in before D/C Order can be placed): Hospice in Medical Facility Charges/Coding Visit Charges Inpatient E&M: 81813 Disch Hosp >30min
== END 2024-09-24 20:53 | disposition hospice, inpatient (51) | DRG 280 ==
LOC: ED 12:31 → PCU 13:22
PROVIDERS: Nurse Practitioner; Admitting Provider Internal Medicine; Emergency Provider Emergency Medicine; PCP Internal Medicine; Visit Provider Student in an Organized Health Care Education/Training Program
DX: I21.4 Non-ST elevation (NSTEMI) myocardial infarction (principal); J69.0 Pneumonitis due to inhalation of food and vomit; E46 Unspecified protein-calorie malnutrition; E87.0 Hyperosmolality and hypernatremia; E87.3 Alkalosis; I50.32 Chronic diastolic (congestive) heart failure; Q21.12 Patent foramen ovale; J98.11 Atelectasis; I50.22 Chronic systolic (congestive) heart failure; N17.9 Acute kidney failure, unspecified; R13.10 Dysphagia, unspecified; I11.0 Hypertensive heart disease with heart failure; E86.9 Volume depletion, unspecified; F03.90 Unspecified dementia, unspecified severity, without behavioral disturbance, psychotic disturbance, mood disturbance, and anxiety; J44.9 Chronic obstructive pulmonary disease, unspecified; I69.320 Aphasia following cerebral infarction; I34.0 Nonrheumatic mitral (valve) insufficiency; I77.819 Aortic ectasia, unspecified site; I65.23 Occlusion and stenosis of bilateral carotid arteries; E78.5 Hyperlipidemia, unspecified; E87.6 Hypokalemia; K21.9 Gastro-esophageal reflux disease without esophagitis; I08.0 Rheumatic disorders of both mitral and aortic valves; J92.9 Pleural plaque without asbestos; D12.6 Benign neoplasm of colon, unspecified; I69.322 Dysarthria following cerebral infarction; I25.2 Old myocardial infarction; F02.80 Dementia in other diseases classified elsewhere, unspecified severity, without behavioral disturbance, psychotic disturbance, mood disturbance, and anxiety; R09.02 Hypoxemia; Z90.49 Acquired absence of other specified parts of digestive tract; Z79.02 Long term (current) use of antithrombotics/antiplatelets; R79.89 Other specified abnormal findings of blood chemistry; N32.81 Overactive bladder; Z90.710 Acquired absence of both cervix and uterus; Z86.73 Personal history of transient ischemic attack (TIA), and cerebral infarction without residual deficits; R10.9 Unspecified abdominal pain; Z79.891 Long term (current) use of opiate analgesic
CPT/HCPCS: 36415; 36592; 36600; 70450; 70544; 70547; 70551; 71045; 71046; 71275; 74177; 74230; 80048; 80053; 80061; 81001; 82803; 82962; 83690; 83735; 83880; 84100; 84484; 85025; 85730; 87449; 87631; 87633; 92526; 92610; 93005; 93306; 94002; 94003; 94640; 94762; 97110; 97162; 97166; 97530; 97535; 97802; 97803; 99252; 99285; P9612; Q9957; Q9967; A4216; G0463; J1940; J7799